=== PATIENT | female | born 1980 | race Caucasian/White ===

== ENCOUNTER 2018-04-05 21:31 | Emergency (ER) | payer MEDICAID, SELFPAY ==
[2018-04-05 21:32] VITALS: BP 154/96; PULSE 93; RESP 16; TEMP 36.6; O2SAT 97; BMI 30.7
--- NOTE | 2018-04-05 22:32 | ED.VISSUMM ---
- ER Visit Summary Date of Service: 04/05/18 Chief Complaint: Right eye pain History of Present Illness: The patient is a 38 F presenting with right eye pain. States it started around 6 PM today. She felt like she may have gotten something in her eye. She was rubbing her eye. No chemical exposure. She complains of right eye pain, burning, itching, tearing. No vision changes. She does not wear contacts. She wears glasses as needed. No fever or other complaints. Physical Examination: Vitals are stable. Patient is afebrile. Alert no acute distress. HEENT exam PERRLA, EOMI. Eyelids are everted with no foreign body visualized. Neck is supple. Lungs are clear and equal bilaterally. Heart is regular rate and rhythm. Extremities are unremarkable. Skin is warm and dry. Remainder of exam is unremarkable. Emergency Department Course and Treatment: Tetracaine was instilled in the right eye with improvement of her symptoms. She has fluorescein uptake at 9:00 oclock. She is given bacitracin ophthalmic ointment. She is advised to follow-up with ophthalmology. Advised return to ED for any worsening complaints. Disposition: Discharge home Impression: Corneal abrasion This note was generated with [employer] dictation software. It may contain incorrect words, spelling, and punctuation that were not noted in review of the chart prior to signing ED Disposition - Plan for ED Patient: Chief Complaint: Eye Problem Referrals: Care Physician,No Primary [Primary Care Provider] -
--- NOTE | 2018-04-05 22:38 | ED.DCSUM_ITS ---
- ER Visit Summary Date of Service: 04/05/18 Chief Complaint: Right eye pain History of Present Illness: The patient is a 38 F presenting with right eye pain. States it started around 6 PM today. She felt like she may have gotten something in her eye. She was rubbing her eye. No chemical exposure. She complains of right eye pain, burning, itching, tearing. No vision changes. She does not wear contacts. She wears glasses as needed. No fever or other complaints. Physical Examination: Vitals are stable. Patient is afebrile. Alert no acute distress. HEENT exam PERRLA, EOMI. Eyelids are everted with no foreign body visualized. Neck is supple. Lungs are clear and equal bilaterally. Heart is regular rate and rhythm. Extremities are unremarkable. Skin is warm and dry. Remainder of exam is unremarkable. Emergency Department Course and Treatment: Tetracaine was instilled in the right eye with improvement of her symptoms. She has fluorescein uptake at 9:00 oclock. She is given bacitracin ophthalmic ointment. She is advised to follow- up with ophthalmology. Advised return to ED for any worsening complaints. Disposition: Discharge home Impression: Corneal abrasion This note was generated with [email or web address] dictation software. It may contain incorrect words, spelling, and punctuation that were not noted in review of the chart prior to signing ED Disposition - Plan for ED Patient: Chief Complaint: Eye Problem Referrals: Care Physician,No Primary [Primary Care Provider] -
--- NOTE | 2018-04-05 22:38 | ED.DEP ---
ED Disposition - Plan for ED Patient: Chief Complaint: Eye Problem Instructions: ED Eye Injury Corneal Abrasion Referrals: Care Physician,No Primary [Primary Care Provider] - Zafar Duarte MD [STAFF PHYSICIAN] -
[2018-04-05] MEDS: Fluorescein 1 MG STRIP 1 STRIP RIGHT EYE (22:47)
[2018-04-05] MEDS: Tetracaine 0.5% Ophthalmic Bottle 1 DRP RIGHT EYE (22:47)
[2018-04-05 22:48] VITALS: PULSE 78; RESP 16; O2SAT 99
== END 2018-04-05 22:49 | disposition home or self-care (01) ==
PROVIDERS: Emergency Provider Emergency Medicine
DX: S05.01XA Injury of conjunctiva and corneal abrasion without foreign body, right eye, initial encounter (principal); X58.XXXA Exposure to other specified factors, initial encounter; Y93.9 Activity, unspecified; Y92.9 Unspecified place or not applicable; Y99.9 Unspecified external cause status; Z72.0 Tobacco use
CPT/HCPCS: 99283

== ENCOUNTER 2018-04-25 21:06 | Emergency (ER) | payer MEDICAID, SELFPAY ==
[2018-04-25 21:07] VITALS: BP 140/84; PULSE 90; RESP 16; TEMP 37.1; O2SAT 97; BMI 29.8
[2018-04-25] MEDS: Ketorolac 30 MG/ML Syringe IV (21:51)
[2018-04-25] MEDS: 0.9% Normal Saline 1,000 ML 1000 ML IV (21:51)
[2018-04-25] MEDS: DiphenhydrAMINE 50 MG/ML Syringe 25 MG IV (21:51)
--- NOTE | 2018-04-25 22:16 | CT_ITS ---
STUDY: CT BRAIN WITHOUT CONTRAST REASON FOR EXAM: Female, 38 years old. Dizzy, left-sided head pain RADIATION DOSAGE (If Supplied By Facility): CTDIvol = ( 44.99 ) mGy, DLP = ( 745.49 ) mGycm TECHNIQUE: Transaxial CT imaging of the brain was performed without administration of intravenous contrast material. Individualized dose optimization techniques were used for this CT. COMPARISON: None. FINDINGS: Normal soft tissue structures. Normal calvarium. Normal size ventricles and extra-axial spaces for the patient's age. There are areas of decreased attenuation within the white matter tracts of the supratentorial brain, consistent with microvascular disease changes. There is an old lacunar infarct of the right insular lobe. Normal basal ganglia and thalami. Normal brainstem. Normal cerebellum. There is no intracranial hemorrhage. There are no findings of an acute ischemic infarction. Normal visualized paranasal sinuses. CT/Brain/Head without Contrast IMPRESSION: Chronic involutional changes of the brain. 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 Electronically Signed: Rogelio Manriquez MD at 22:28 EDT , Service support ,
--- NOTE | 2018-04-25 23:23 | ED.VISSUMM ---
- ER Visit Summary Date of Service: 04/25/18 Chief Complaint: Wooshing sensation use inside my head. Alternating bitemporal headache History of Present Illness: The patient is a 38 F no significant past medical history. Multiple prior abdominal surgeries. Patient states that for 3 weeks she has had an abnormal sensation in her head. And more recently has had alternating bitemporal headache. That primarily started last night. She denies any problems moving her arms and legs. In the past she was going to have an MRI of her brain and a larger neurology workup but lost her insurance and could not get that done. She denies any head trauma. She denies any fever. She denies any strokelike symptoms. Physical Examination: Well-appearing female vital signs are stable afebrile. H EENT exam unremarkable. No signs of trauma to her head or face. No facial droop. Pupils are round reactive light. Normal speech. Neck nontender. Lungs clear to auscultation bilaterally. Heart regular rhythm no murmur. Abdomen soft nontender. She is moving all 4 extremities. They are neurovascularly intact. 5 out of 5 warm in strength bilaterally. Plantar flexion intact. Back exam normal skin exam normal neurologically she is awake and alert with no focal motor deficits. Normal speech. Fingertip to nose within normal limits [id number] within normal limits. NIH score is 0. Test Results: CT of her brain shows chronic changes and right insular lobe infarct per the radiologist. I did review the film. Emergency Department Course and Treatment: Repeat exam she was given IV fluids, Toradol and Benadryl her headache is not significantly different or improved. She will be given IV Nubain. Her repeat neurologic exam at 2315 remains normal. Treatment Plan: Discharged to home. Follow-up with Dr. Quintero for further neurologic evaluation. Disposition: Discharge Impression: Acute atypical cephalgia This note was generated with [employer] dictation software. It may contain incorrect words, spelling, and punctuation that were not noted in review of the chart prior to signing ED Disposition - Plan for ED Patient: Chief Complaint: Dizziness Referrals: Care Physician,No Primary [Primary Care Provider] -
--- NOTE | 2018-04-25 23:27 | ED.DEP ---
ED Disposition - Plan for ED Patient: Disposition: Home or Assisted Living Chief Complaint: Dizziness Instructions: ED Dizziness [facility] Referrals: Pato Quintero MD [STAFF PHYSICIAN] - As soon as possible Additional Instructions: Call and follow-up with the neurologist for further evaluation and possible MRI. Return to ER if you are feeling worse.
--- NOTE | 2018-04-25 23:28 | ED.DCSUM_ITS ---
- ER Visit Summary Date of Service: 04/25/18 Chief Complaint: Wooshing sensation use inside my head. Alternating bitemporal headache History of Present Illness: The patient is a 38 F no significant past medical history. Multiple prior abdominal surgeries. Patient states that for 3 weeks she has had an abnormal sensation in her head. And more recently has had alternating bitemporal headache. That primarily started last night. She denies any problems moving her arms and legs. In the past she was going to have an MRI of her brain and a larger neurology workup but lost her insurance and could not get that done. She denies any head trauma. She denies any fever. She denies any strokelike symptoms. Physical Examination: Well-appearing female vital signs are stable afebrile. H EENT exam unremarkable. No signs of trauma to her head or face. No facial droop. Pupils are round reactive light. Normal speech. Neck nontender. Lungs clear to auscultation bilaterally. Heart regular rhythm no murmur. Abdomen soft nontender. She is moving all 4 extremities. They are neurovascularly intact. 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 Plantar flexion intact. Back exam normal skin exam normal neurologically she is awake and alert with no focal motor deficits. Normal speech. Fingertip to nose within normal limits [id number] within normal limits. NIH score is 0. Test Results: CT of her brain shows chronic changes and right insular lobe infarct per the radiologist. I did review the film. Emergency Department Course and Treatment: Repeat exam she was given IV fluids, Toradol and Benadryl her headache is not significantly different or improved. She will be given IV Nubain. Her repeat neurologic exam at 2315 remains normal. Treatment Plan: Discharged to home. Follow-up with Dr. Quintero for further neurologic evaluation. Disposition: Discharge Impression: Acute atypical cephalgia This note was generated with [employer] dictation software. It may contain incorrect words, spelling, and punctuation that were not noted in review of the chart prior to signing ED Disposition - Plan for ED Patient: Chief Complaint: Dizziness Referrals: Care Physician,No Primary [Primary Care Provider] -
[2018-04-25 23:38] VITALS: BP 135/90; PULSE 84; RESP 16; O2SAT 97
[2018-04-25] MEDS: Nalbuphine 10 MG/ML Ampul IV (23:38)
[2018-04-26 00:03] VITALS: BP 135/97; PULSE 82; RESP 16; O2SAT 100
== END 2018-04-26 00:04 | disposition home or self-care (01) ==
PROVIDERS: Emergency Provider Emergency Medicine
DX: R51 Headache (principal); R42 Dizziness and giddiness; R19.7 Diarrhea, unspecified; Z72.0 Tobacco use; Z86.73 Personal history of transient ischemic attack (TIA), and cerebral infarction without residual deficits
CPT/HCPCS: 70450; 96361; 96374; 96375; 99283; J7030

== ENCOUNTER 2018-05-14 03:49 | Emergency (ER) | payer MEDICAID, SELFPAY ==
[2018-05-14] VITALS (7 sets, daily range): BP systolic 99–160; BP diastolic 68–95; PULSE 96–116; RESP 14–20; TEMP 36.7; O2SAT 92–100; BMI 31.9
--- NOTE | 2018-05-14 04:12 | EKG12_ITS ---
Test Reason : CP Blood Pressure : / mmHG Vent. Rate : 120 BPM Atrial Rate : 120 BPM P-R Int : 140 ms QRS Dur : 070 ms QT Int : 326 ms P-R-T Axes : 055 053 038 degrees QTc Int : 460 ms Sinus tachycardia Nonspecific T wave abnormality Confirmed by LARRY CHAVES, JAIDEN ([id number]), photographic editor BERNADETTE RIOS ([id number]) on 05/15/2018 1:36:33 PM Referred By: GEMMA Confirmed By:JAIDEN JUAREZ MD
--- NOTE | 2018-05-14 04:13 | RAD_ITS ---
STUDY: X-RAY CHEST REASON FOR EXAM: Female, 38 years old. Tightness in the chest. Denies shortness of breath or pain. TECHNIQUE: Frontal and lateral views of the chest. COMPARISON: 05/11/2017. FINDINGS: The lungs are clear and expanded. There is no demonstrated pleural abnormality. Normal size heart. Normal mediastinum and simone. Normal visualized pulmonary arteries. Normal visualized aortic arch and descending thoracic aorta. Normal visualized thoracic spine. Normal visualized ribs, clavicles, and shoulders. There is no demonstrated abnormality of the visualized soft tissue structures of the upper abdomen. RAD/Chest PA and Lateral IMPRESSION: Normal x-ray examination of the chest. Electronically Signed: Teodoro Fagan MD at 5:03 EDT , Service support ,
--- NOTE | 2018-05-14 04:15 | ED.VISSUMM ---
- ER Visit Summary Date of Service: 05/14/18 Chief Complaint: [Chest pain] History of Present Illness: The patient is a 38 F [who presents to the emergency department with chest pain. She describes as a band being squeezed around her chest and she felt like she could not breathe and she was nauseated and vomiting. She has this periodically in the middle of the night it wakes her up. Tonight it started while she was talking to her boyfriend. She had had several drinks. It kept coming and going and happened 3 times and that is when she called EMS. She has had a headache all day today but otherwise has been feeling well. She does have a history in the recent past of getting paresthesias and burning spots on her skin. She has seen a neurologist and a primary doctor but then lost her insurance. She does smoke. She does drink. She states she has not slept in the last several nights because she has a restless feeling in her body. She denies the possibility of .] Physical Examination: [] Blood pressure 165/95 heart rate 116 respiratory rate 20 WN WD NAD PERRL EOMI MMM NECK supple and nontender, no masses RRR no murmur rub or gallop, no peripheral edema, symmetric radial pulses CTAB no respiratory distress ABDOMEN is soft and nontender, normal bowel sounds, no distension, no rebound or guarding SKIN is warm and dry no rashes Alert and Oriented x3, CN II-XII in tact, no motor or sensory deficits, gait normal Anxious appearing No lymphadenopathy Test Results: [] Emergency Department Course and Treatment: [EKG is sinus tach at a rate of 120. Patient is very anxious but no obvious distress. Abdomen was unremarkable. Screening labs were obtained and were significant for a white blood cell count of 18.6. Did not have a clear etiology for this. A urinalysis was unremarkable chest x-ray was unremarkable. I did do a CTA at that time which showed a enhancing liver lesion but no other acute process. MRI was recommended to further evaluate this liver lesion. This was discussed with the patient and putting her discharge instructions. She does not have a primary care doctor. I did give her a referral. I encouraged her to follow-up and give her careful precautions for which to return. Her primary complaint was just diffuse muscle aches. And she cannot relax she just wants her body to relax. If she gets fever or uncontrolled symptoms she was invited to return back to the emergency department Treatment Plan: [] Disposition: [] Discharge Impression: [1. Chest pain 2. Liver lesion] This note was generated with [employer] dictation software. It may contain incorrect words, spelling, and punctuation that were not noted in review of the chart prior to signing ED Disposition - Plan for ED Patient: Chief Complaint: Chest Other Referrals: Care Physician,No Primary [Primary Care Provider] -
[2018-05-14] MEDS: 0.9% Normal Saline 1,000 ML 1000 ML IV (04:24)
[2018-05-14] MEDS: LORazepam 2 MG/ML Syringe 0.5 MG IV (04:24)
[2018-05-14 04:27] LABS: Absolute Lymphocyte Count 3.97 X10^3/ul (0.83-4.51); Absolute Neutrophil Count 12.4 X10^3/uL (2.0-7.7); Basophil% 0.5 % (0-1); Eosinophil# 0.43 X10^3/uL; Eosinophils% 2.3 % (0-5); Hematocrit 41.4 % (37-47); Hemoglobin 14.4 g/dl (12.0-15.0); Lymphocyte # 3.97 X10^3/ul (4.0); Lymphocyte % 21.4 % (19-41); Mean Corp Hgb Conc 34.8 g/gl (32-36); Mean Corpuscular Hgb 33.5 pg (27.0-32.0); Mean Corpuscular Volume 96.3 fL (81-99); Mean Platelet Vol. 10.1 fl (6.2-12.0); Monocyte# 1.27 X10^3/uL; Monocyte% 6.8 % (0-10); Neutrophil # 12.42 X10^3/uL (2.7-7.7); Platelet Count 278 K/mm3 (150-450); RBC Distribution Width CV 13.3 % (11.6-14.6); RBC Distribution Width SD 45.6 fl (35.1-43.9); White Blood Count 18.6 K/mm3 (4.4-11.0)
[2018-05-14 04:47] LABS: AST(SGOT) 28 U/L (15-37); Alanine Aminotransfer ALT/SGPT 54 U/L (13-56); Albumin, Serum 4.2 g/dL (3.2-5.0); Alkaline Phosphatase 68 U/L (45-117); Anion Gap 11 (5-15); BUN 10 mg/dL (7-18); Bilirubin, Direct 0.07 mg/dL (0.00-0.30); Calcium,Total 8.8 mg/dL (8.5-10.1); Chloride 105 mmol/L (98-107); Creatinine, Serum 0.72 mg/dL (0.55-1.02); EST Glomerular Filtration Rate 97 mL/min (>60); Est Glom Filt Rate - Afr Amer 118 mL/min (>60); Estimated Creatinine Clearance 92.38 ml/min; Glucose 111 mg/dL (74-106); Lipase 138 U/L (73-393); Potassium 3.8 mmol/L (3.5-5.1); Protein, Total 8.2 g/dL (6.4-8.2); Sodium Level 140 mmol/L (136-145); Thyroid Stim Hormone (TSH) 3.51 uIU/mL (0.358-3.74)
[2018-05-14 04:49] LABS: POSITIVE COUNT YES; POSITIVE DIFFERENTIAL NO; POSITIVE MORPHOLOGY YES
[2018-05-14 04:53] LABS: Pregnancy, Serum, hCG Quali. NEGATIVE Negative (0-9 Nonpreg)
--- NOTE | 2018-05-14 05:30 | CT_ITS ---
STUDY: CTA CHEST REASON FOR EXAM: Female, 38 years old. Chest pain and tightness. Prior cholecystectomy. RADIATION DOSAGE (If Supplied By Facility): CTDIvol = ( 20.83 ) mGy, DLP = ( 573.62 ) mGycm TECHNIQUE: The examination was performed with the intravenous administration of 75ml ml of Isovue 370 contrast material. Post-processing of the angiographic images was performed, with multiplanar reformation and 3D reconstruction. Individualized dose optimization techniques were used for this CT. COMPARISON: Chest x-ray 05/14/2018. CT scan abdomen and pelvis 06/10/2014. FINDINGS: Normal enhancement of the main pulmonary artery and right and left pulmonary arteries. Normal enhancement of the bilateral peripheral pulmonary arteries. There is no demonstrated pulmonary embolism. Normal thoracic aorta and visualized great vessels. There is no demonstrated aortic dissection. Normal heart and pericardium. Normal mediastinum. Normal hilar regions. Normal visualized trachea and bronchi. There is mild atelectasis in the posterior lungs and lung bases. Otherwise lungs are well expanded. Normal pulmonary parenchyma. Normal pleura. Normal chest wall structures. There are degenerative changes of thoracic spine. As seen on series 2, axial images 11-18, there is a 1.6 cm hyper enhancing space-occupying lesion in the right lobe of the liver, not visible on previous CT exam.. CT/CTA Chest W/WO Contrast IMPRESSION: Normal CTA chest examination, without a demonstrated pulmonary embolism or arterial dissection. No evidence for acute cardiopulmonary pathology. Incidental finding of a 1.6 cm hyper enhancing space-occupying lesion in the right lobe of the liver. Would consider a follow-up MRI of liver for further characterization. Electronically Signed: Teodoro Fagan MD at 6:27 EDT , Service support ,
[2018-05-14 05:56] LABS: Bacteria 0 SEEN /hpf (None Seen); Mucous, Urine 0 SEEN /hpf (<or=2+); Red Blood Cells-Urine 0 SEEN /hpf (0-5); Squamous Epithelial Cells - UA 0 SEEN /hpf (5-10); White Blood Cells 0 SEEN /hpf (0-5)
[2018-05-14 06:02] LABS: Color, Urine Straw (Yellow); Glucose, Dipstick Normal (Normal); Ketone-Dipstick Negative (Negative); Leukocyte Esterase-Dipstick Negative /ul (Negative); Nitrite-Dipstick Negative (Negative); Occult Blood-Urine Negative /ul (Negative); Protein-Dipstick Negative (Negative); Specific Gravity, Urine 1.005 (1.002-1.030); Urine Bilirubin Dipstick Negative (Negative); Urine Clarity Clear (Clear); Urine Urobilinogen Normal (Normal)
[2018-05-14] MEDS: Ondansetron 4 MG/2 ML Vial IV (06:43)
[2018-05-14] MEDS: Morphine 4 MG/ML Syringe IV (06:53)
[2018-05-14] MEDS: Mag Hydrox/Al Hydrox/Simeth 30 ML UDC 20 ML PO (06:54)
[2018-05-14] MEDS: LORazepam 2 MG/ML Syringe 1 MG IV (07:20)
--- NOTE | 2018-05-14 07:40 | ED.DEP ---
ED Disposition - Plan for ED Patient: Chief Complaint: Chest Other Instructions: ED Chest Pain Atypical Unkn Cause Referrals: Alyx Don MD [STAFF PHYSICIAN] - 3-5 Days Additional Instructions: You have a lesion in your liver on CAT scan. This REQUIRES MRI for further follow up. you MUST follow up with a primary provider.
[2018-05-15 12:07] LABS: Pathologist Review Reviewed
== END 2018-05-14 08:00 | disposition home or self-care (01) ==
PROVIDERS: Emergency Provider Emergency Medicine
DX: R07.9 Chest pain, unspecified (principal); K76.9 Liver disease, unspecified; M79.1 Myalgia; R11.2 Nausea with vomiting, unspecified; R51 Headache; F17.200 Nicotine dependence, unspecified, uncomplicated
CPT/HCPCS: 36415; 71046; 71275; 80048; 80076; 81001; 83690; 83735; 84443; 84484; 84703; 85025; 93005; 99284; J7030; Q9967; J2405

== ENCOUNTER 2018-05-14 08:49 | Emergency (ER) | payer MEDICAID, SELFPAY ==
[2018-05-14 08:50] VITALS: BP 89/58; PULSE 99; RESP 16; TEMP 36.1; O2SAT 96; BMI 30.9
--- NOTE | 2018-05-14 09:10 | EKG12_ITS ---
Test Reason : DIZZINESS Blood Pressure : / mmHG Vent. Rate : 085 BPM Atrial Rate : 085 BPM P-R Int : 144 ms QRS Dur : 078 ms QT Int : 358 ms P-R-T Axes : 026 053 036 degrees QTc Int : 426 ms Normal sinus rhythm Normal ECG Confirmed by LARRY CHAVES, JAIDEN ([id number]), web editor BERNADETTE RIOS ([id number]) on 05/17/2018 10:46:14 AM Referred By: Confirmed By:JAIDEN JUAREZ MD
--- NOTE | 2018-05-14 09:10 | CT_ITS ---
STUDY: CT BRAIN WITHOUT CONTRAST REASON FOR EXAM: Female, 38 years old. Headache. Dizziness. RADIATION DOSAGE (If Supplied By Facility): CTDIvol = ( 44.99 ) mGy, DLP = ( 711.75 ) mGycm TECHNIQUE: Transaxial CT imaging of the brain was performed without administration of intravenous contrast material. Individualized dose optimization techniques were used for this CT. COMPARISON: April 25, 2018. FINDINGS: Normal soft tissue structures. Normal calvarium. Normal size ventricles and extra-axial spaces for the patient's age. Normal white matter tracts of the cerebral hemispheres. Stable lacunar infarct of the right basal ganglia. Normal brainstem. Normal cerebellum. There is no intracranial hemorrhage. There are no findings of an acute ischemic infarction. Normal visualized paranasal sinuses. CT/Brain/Head without Contrast IMPRESSION: Chronic involutional changes of the brain. No hemorrhage. Electronically Signed: Romaine Chand MD at 10:12 EDT , Service support ,
--- NOTE | 2018-05-14 09:15 | ED.DCSUM_ITS ---
- ER Visit Summary Date of Service: 05/14/18 Chief Complaint: Dizziness History of Present Illness: The patient is a 38 F presenting with dizziness. Patient was just discharged from the ER. She did not leave the waiting room and checked back in. She complains of dizziness and feeling like she is going to pass out. While she was in the emergency department earlier today she had blood work as well as a CTA of her chest which was unremarkable other than a liver lesion which she was advised to follow-up with primary care physician. She denies fever. She has nausea with no vomiting. She has chest pain which she has had in the past. She complains of mild headache. Denies neck pain. Denies other complaints. Physical Examination: Vitals are stable. Patient is afebrile. Alert no acute distress. HEENT exam is unremarkable. Neck is supple. Lungs are clear and equal bilaterally. Heart is regular rate and rhythm. Abdomen is soft nontender nondistended. Extremities are unremarkable. Skin is warm and dry. No focal neurologic deficit. Remainder of exam is unremarkable. Emergency Department Course and Treatment: Patient given IV fluids, Zofran. Orthostatic vital signs are negative. EKG is sinus rate of 85 with no acute ischemic changes. Troponin was negative. Troponin was negative earlier today as well. Her chest pain is improved on reevaluation, she is complaining of headache. She was given Compazine and Benadryl IV with improvement of her headache. She is resting comfortably on reevaluation. She is advised to follow -up with Dr. Holloway relocation associate for no doc. Advised return to ED for worsening complaints. Disposition: Discharge home Impression: Dizziness, headache This note was generated with [employer] dictation software. It may contain incorrect words, spelling, and punctuation that were not noted in review of the chart prior to signing ED Disposition - Plan for ED Patient: Chief Complaint: Dizziness Referrals: Care Physician,No Primary [Primary Care Provider] -
[2018-05-14 09:59] VITALS: BP 108/87; BP 109/82; BP 96/71; PULSE 86; PULSE 94; PULSE 98
[2018-05-14] MEDS: 0.9% Normal Saline 1,000 ML 1000 ML IV (10:07)
[2018-05-14] MEDS: Ondansetron 4 MG/2 ML Vial IV (10:07)
[2018-05-14 10:35] LABS: Amphetamine Urine VISTA NEGATIVE (<1000 ng/mL); Barbiturate Urine VISTA NEGATIVE (< 200 ng/mL); Benzodiazepine Urine VISTA NEGATIVE (< 200 ng/mL); Cocaine Urine VISTA NEGATIVE (< 300 ng/mL); Ecstacy Urine VISTA NEGATIVE (< 500 ng/mL); Methadone Urine VISTA NEGATIVE (< 300 ng/mL); PCP Urine VISTA NEGATIVE (< 25 ng/mL); THC Urine VISTA NEGATIVE (< 50 ng/mL); Vista UDS pH Range 7
[2018-05-14] MEDS: proCHLORPERazine 10 MG/2 ML Vial IV (11:00)
[2018-05-14] MEDS: DiphenhydrAMINE 50 MG/ML Syringe 25 MG IV (11:00)
--- NOTE | 2018-05-14 11:23 | ED.DEP ---
ED Disposition - Plan for ED Patient: Chief Complaint: Dizziness Instructions: ED Dizziness [facility] Referrals: Care Physician,No Primary [Primary Care Provider] - Jewel,DO Jennifer [NON-STAFF] -
[2018-05-14 11:42] VITALS: BP 98/59; PULSE 95; RESP 22; O2SAT 92
== END 2018-05-14 11:44 | disposition home or self-care (01) ==
PROVIDERS: Emergency Provider Emergency Medicine
DX: R42 Dizziness and giddiness (principal); R51 Headache; R11.2 Nausea with vomiting, unspecified; R07.9 Chest pain, unspecified; R05 Cough; K76.9 Liver disease, unspecified; M79.1 Myalgia; F17.200 Nicotine dependence, unspecified, uncomplicated
CPT/HCPCS: 36415; 70450; 80307; 84484; 93005; 96361; 96374; 96375; 96376; 99284; 99285; J7030; J2405

== ENCOUNTER 2018-10-30 19:26 | Observation (INO) | payer OTHER, MEDICAID, SELFPAY ==
[2018-10-30 19:27] VITALS: BP 148/90; PULSE 98; RESP 16; TEMP 36.5; O2SAT 99; BMI 30.9
--- NOTE | 2018-10-30 19:58 | ED.VISSUMM ---
- ER Visit Summary Date of Service: 10/30/18 Chief Complaint: Right-sided abdominal pain History of Present Illness: The patient is a 38 F who presents for acute onset of right-sided abdominal pain 2 hours ago. Patient had a microwave ablation on her liver on October 19 performed at [facility]. She has had no issues until tonight. She was sitting when she had sudden onset of right upper quadrant abdominal pain radiating into the right back, right shoulder and right neck. Patient has associated nausea. It is a sharp stabbing pain with underlying constant ache. She denies any vomiting, diarrhea, chest pain, fever, shortness of breath, cough or congestion, urinary symptoms. Patient is status post cholecystectomy and hysterectomy. Surgery was performed for a liver adenoma. Physical Examination: Vital signs: afebrile, hemodynamically stable, no hypoxia on room air General: well nourished, well developed, in no distress Skin: warm, dry, no rash, no pallor HEENT: normocephalic and atraumatic; PERRL, EOMI, moist mucous membranes Cardiovascular: regular rate and rhythm without murmurs, no peripheral edema, 2+ pulses all distal extremities Respiratory: No increased work of breathing, lungs are clear to auscultation bilaterally, no rales, rhonchi or wheezing Abdominal: Abdomen is soft, tender in the right upper quadrant with normoactive bowel sounds, referred pain to the right upper quadrant with palpation of the right lower quadrant, no guarding or rebound, no masses, well-healing surgical incisions on the abdomen MSK: Moves all extremities, no deformities, normal strength, healing biopsy site on the left upper arm at site of lipoma removal, granulation tissue present, no surrounding erythema, tenderness or induration Neuro: Awake and alert, oriented ?4. No facial droop, sensation and motor function intact and symmetric Test Results: Abnormal Lab Results 10/30/18 10/30/18 10/30/18 19:36 19:36 20:15 WBC 15.4 H RBC 4.37 Hgb 13.8 Hct 42.4 MCV 97.0 MCH 31.6 MCHC 32.5 RDW 12.5 RDW Differential 44.0 H Plt Count 306 MPV 10.9 Immature Gran % (Auto) 1.400 H Neut % (Auto) 67.8 Lymph % (Auto) 23.7 [place] % (Auto) 4.7 Eos % (Auto) 2.0 Baso % (Auto) 0.4 Absolute Neuts (auto) 10.4 H Absolute Lymphs (auto) 3.64 Total Counted Not Reportable Sodium Cancelled Potassium Cancelled Chloride Cancelled Carbon Dioxide Cancelled Anion Gap Cancelled BUN Cancelled Creatinine Cancelled Estim Creat Clear Calc Cancelled Est GFR (MDRD) Af Amer Cancelled Est GFR (MDRD) Non-Af Cancelled BUN/Creatinine Ratio Cancelled Glucose Cancelled Lactic Acid Calcium Cancelled Total Bilirubin Cancelled AST Cancelled ALT Cancelled Alkaline Phosphatase Cancelled Total Protein Cancelled Albumin Cancelled Globulin Cancelled Albumin/Globulin Ratio Cancelled Lipase Cancelled Urine Color Yellow Urine Clarity Clear Urine pH 5.0 Ur Specific [place] 1.025 Urine Protein Negative Urine Glucose (UA) Normal Urine Ketones 150 H Urine Occult Blood Negative Urine Nitrite Negative Urine Bilirubin Negative Urine Urobilinogen Normal Ur Leukocyte Esterase Negative Urine RBC 0 SEEN Urine WBC 0 SEEN Ur Squamous Epith Cells 0-5 SEEN Urine Bacteria 0 SEEN Urine Mucus 0 SEEN 10/30/18 10/30/18 20:35 20:56 WBC RBC Hgb Hct MCV MCH MCHC RDW RDW Differential Plt Count MPV Immature Gran % (Auto) Neut % (Auto) Lymph % (Auto) [place] % (Auto) Eos % (Auto) Baso % (Auto) Absolute Neuts (auto) Absolute Lymphs (auto) Total Counted Sodium 136 Potassium 3.7 Chloride 104 Carbon Dioxide 22.0 Anion Gap 10 BUN 18 Creatinine 0.76 Estim Creat Clear Calc 87.52 Est GFR (MDRD) Af Amer 109 Est GFR (MDRD) Non-Af 90 BUN/Creatinine Ratio 23.6 H Glucose 81 Lactic Acid 0.9 Calcium 9.6 Total Bilirubin 0.20 AST 18 ALT 49 Alkaline Phosphatase 83 Total Protein 8.5 H Albumin 4.6 Globulin 3.9 Albumin/Globulin Ratio 1.2 Lipase 140 Urine Color Urine Clarity Urine pH Ur Specific [place] Urine Protein Urine Glucose (UA) Urine Ketones Urine Occult Blood Urine Nitrite Urine Bilirubin Urine Urobilinogen Ur Leukocyte Esterase Urine RBC Urine WBC Ur Squamous Epith Cells Urine Bacteria Urine Mucus Clinical Impression(s) from Imaging Studies Abdomen/Pelvis CT 10/30/18 21:15 IMPRESSION: Abnormal liver consistent with recently treated lesion in the right lobe. No dilated loops of bowel. No hydronephrosis. No fluid collection. Electronically Signed: Romaine Chand MD at 22:24 EST , Service support , Medications Given Discontinued Medications Acetaminophen (Tylenol) 325 mg PO X1 ONE Stop: 10/30/18 22:45 Sodium Chloride () 1,000 mls @ 1,000 mls/hr IV .Q1H ONE Stop: 10/30/18 20:56 Last Admin: 10/30/18 20:27 Dose: 1,000 mls/hr Morphine Sulfate () 4 mg IV X1 ONE Stop: 10/30/18 19:58 Last Admin: 10/30/18 20:28 Dose: 4 mg Morphine Sulfate () 4 mg IV X1 ONE Stop: 10/30/18 21:43 Last Admin: 10/30/18 21:57 Dose: 4 mg Ondansetron HCl (Zofran) 4 mg IV X1 ONE Stop: 10/30/18 19:58 Last Admin: 10/30/18 20:28 Dose: 4 mg Oxycodone HCl (Oxyir) 5 mg PO X1 ONE Stop: 10/30/18 22:45 Emergency Department Course and Treatment: She was given IV fluids, morphine and Zofran for symptomatic relief. Abs were performed showing a leukocytosis of 15.4 with bandemia. No electrolyte derangements, normal hepatic function, normal lipase. Lactate was normal at 0.9. Urine showed no signs of infection. Patient had adequate pain control with morphine but did require an additional dose. Patient was discussed with her surgeon Dr. Larry Gonsales from [facility] [place], we discussed imaging of the patient. Patient had a CT abdomen and pelvis with IV contrast performed. It showed a liver hypodensity consistent with post ablation changes. These results were discussed with Dr. Gonsales, and there were no signs of abscess, free air or hematoma. Patient has no hypoxia, tachycardia or tachypnea, dyspnea that would be concerning for pulmonary embolism, and she does have right upper quadrant tenderness consistent with this being an abdominal process rather than an intrathoracic process. He stated given the findings on the CT scan, the pain then is likely post procedural pain, and pain control is the goal. Patient was given the options of transfer to [facility] for further pain control, admission for pain management, or attempt to get her pain controlled with oral analgesia so that she can be discharged home. At that time she would then follow-up with Dr. Gonsales outpatient later this week. She wanted to try outpatient pain control. She was given oxycodone and Tylenol, which is what she was taking postoperatively last week. Reevaluation, patient had minimal improvement of her pain with the oxycodone and Tylenol, but now was having nausea. Patient was given ODT Zofran, and after a short time stated she did not think she was felt well enough to go home. She does not want to be transferred to [facility]. Patient was discussed with Dr. Schuler and will be admitted as observation status for postprocedural pain control. Treatment Plan: [] Disposition: [] Impression: Post procedural pain status post liver adenoma ablation This note was generated with Yoke dictation software. It may contain incorrect words, spelling, and punctuation that were not noted in review of the chart prior to signing ED Disposition - Plan for ED Patient: Chief Complaint: Abd Pain Referrals: [facility] Doctor,Out of [NON-STAFF] -
[2018-10-30 20:14] LABS: Absolute Lymphocyte Count 3.64 X10^3/ul (0.83-4.51); Absolute Neutrophil Count 10.4 X10^3/uL (2.0-7.7); Basophil# 0.06 X10^3/uL; Basophil% 0.4 % (0-1); Hematocrit 42.4 % (37-47); Hemoglobin 13.8 g/dl (12.0-15.0); Lymphocyte # 3.64 X10^3/ul (4.0); Lymphocyte % 23.7 % (19-41); Mean Corp Hgb Conc 32.5 g/gl (32-36); Mean Corpuscular Hgb 31.6 pg (27.0-32.0); Mean Platelet Vol. 10.9 fl (6.2-12.0); Monocyte# 0.72 X10^3/uL; Monocyte% 4.7 % (0-10); Neutrophil # 10.44 X10^3/uL (2.7-7.7); Neutrophil % 67.8 % (47-70); Platelet Count 306 K/mm3 (150-450); RBC Distribution Width CV 12.5 % (11.6-14.6); Red Blood Count 4.37 M/mm3 (4.2-5.4); White Blood Count 15.4 K/mm3 (4.4-11.0)
[2018-10-30 20:15] LABS: POSITIVE COUNT NO; POSITIVE DIFFERENTIAL NO; POSITIVE MORPHOLOGY NO
[2018-10-30 20:26] LABS: Bacteria 0 SEEN /hpf (None Seen); Mucous, Urine 0 SEEN /hpf (<or=2+); Red Blood Cells-Urine 0 SEEN /hpf (0-5); White Blood Cells 0 SEEN /hpf (0-5)
[2018-10-30 20:27] LABS: Color, Urine Yellow (Yellow); Glucose, Dipstick Normal (Normal); Leukocyte Esterase-Dipstick Negative /ul (Negative); Nitrite-Dipstick Negative (Negative); Occult Blood-Urine Negative /ul (Negative); Protein-Dipstick Negative (Negative); Specific Gravity, Urine 1.025 (1.002-1.030); Urine Bilirubin Dipstick Negative (Negative); Urine Clarity Clear (Clear); Urine Urobilinogen Normal (Normal)
[2018-10-30] MEDS: 0.9% Normal Saline 1,000 ML 1000 ML IV (20:27)
[2018-10-30] MEDS: Morphine 4 MG/ML Syringe IV ×2 (20:28→21:57)
[2018-10-30] MEDS: Ondansetron 4 MG/2 ML Vial IV (20:28)
[2018-10-30 20:33] LABS: Ketone-Dipstick 150 mg/dl (Negative)
[2018-10-30 20:34] LABS: Squamous Epithelial Cells - UA 0-5 SEEN /hpf (5-10)
[2018-10-30 20:35] VITALS: BP 132/92; PULSE 89; RESP 16; O2SAT 100
[2018-10-30 21:06] LABS: ALB/GLOB Ratio 1.2 RATIO (0.9-2.4); Albumin, Serum 4.6 g/dL (3.2-5.0); BUN 18 mg/dL (7-18); BUN/Creat Ratio 23.6 RATIO (10-20); Calcium,Total 9.6 mg/dL (8.5-10.1); Creatinine, Serum 0.76 mg/dL (0.55-1.02); EST Glomerular Filtration Rate 90 mL/min (>60); Est Glom Filt Rate - Afr Amer 109 mL/min (>60); Estimated Creatinine Clearance 87.52 ml/min; Globulin 3.9 g/dL (2.2-4.2); Glucose 81 mg/dL (74-106); Lipase 140 U/L (73-393); Protein, Total 8.5 g/dL (6.4-8.2)
[2018-10-30 21:07] LABS: AST(SGOT) 18 U/L (15-37); Alanine Aminotransfer ALT/SGPT 49 U/L (13-56); Alkaline Phosphatase 83 U/L (45-117); Anion Gap 10 (5-15); Chloride 104 mmol/L (98-107); Potassium 3.7 mmol/L (3.5-5.1); Sodium Level 136 mmol/L (136-145)
--- NOTE | 2018-10-30 21:15 | CT_ITS ---
STUDY: CT ABDOMEN AND PELVIS WITH CONTRAST REASON FOR EXAM: Female, 38 years old. Abdominal pain. Right upper quadrant pain. Recent ablation of liver mass. RADIATION DOSAGE (If Supplied By Facility): CTDIvol = ( 16.48 ) mGy, DLP = ( 1414.64 ) mGycm TECHNIQUE: Transaxial images were obtained from the dome of the diaphragm to the symphysis pubis without oral contrast. 100 ml of Isovue 300 contrast was administered. Sagittal and coronal images were reconstructed. Individualized dose optimization techniques were used for this CT. COMPARISON: June 10, 2014 CT abdomen. May 14, 2018 CT chest. FINDINGS: The visualized lung bases are unremarkable. The visualized portions of the heart are within normal limits. There is 5.8 x 3.1 cm diminished density in the right lobe of the liver including the region of previously seen enhancing mass. There is non-visualization of the gallbladder, which may be secondary to either contraction or a prior cholecystectomy. Normal spleen. Normal pancreas. Normal bilateral adrenal glands. Small cysts in the right kidney. Normal left kidney. Normal visualized stomach. Normal small intestine. Normal colon. There are surgical clips in the region of the appendix consistent with a prior appendectomy. Normal abdominal aorta. Normal inferior vena cava. Normal retroperitoneum. Normal urinary bladder. There is absence of the uterus consistent with a prior hysterectomy. There is a 2.0 cm left adnexal cyst. There is no free fluid in the abdomen or pelvis. There is a small umbilical hernia containing fat. Normal osseous structures. CT/Abdomen/Pelvis W IV Cont ONLY IMPRESSION: Abnormal liver consistent with recently treated lesion in the right lobe. No dilated loops of bowel. No hydronephrosis. No fluid collection. Electronically Signed: Romaine Chand MD at 22:24 EST , Service support ,
--- NOTE | 2018-10-30 21:26 | ED.RN ---
PER LAB URINE KETONES 150, DR BARKLEY AWARE.
[2018-10-30 21:40] LABS: Lactic Acid 0.9 mmol/L (0.4-2.0)
[2018-10-30] MEDS: oxyCODONE 5 MG Tablet PO (22:54)
[2018-10-30] MEDS: Acetaminophen 325 MG Tablet PO (22:54)
[2018-10-30] MEDS: Ondansetron ODT 4 MG Tablet PO (23:27)
[2018-10-30 23:28] VITALS: BP 130/80; PULSE 92; RESP 18; O2SAT 97
--- NOTE | 2018-10-30 23:40 | HP.PCM_ITS ---
Problem List (1) RUQ pain Status: Acute (2) Hepatic adenoma Status: Chronic (3) GERD (gastroesophageal reflux disease) Status: Chronic Qualifiers: Esophagitis presence: esophagitis presence not specified Qualified Code(s): K21.9 - Gastro-esophageal reflux disease without esophagitis (4) Tobacco use Status: Chronic (5) Obesity (BMI 30.0-34.9) Status: Chronic History of Present Illness Date of Admission: 10/30/18 Chief Complaint: RUQ pain The patient is a 38 y/o F w/ PMHx: GERD, Obesity, Tobacco use, recently noted incidental liver lesion on CT 05/2018 with follow-up eventual 10/20/18 microwave ablation of the lesion performed at [facility] by Dr. Larry Gonsales in addition to left upper extremity adenoma removal at the same time who presents to the [facility] on 10/31/18 with history of pain regimen previously used times 3 days following initial intervention with pain controlled following however onset today at approximately 6 PM prior to meal intake both dull ongoing ache and sharp stabbing intermittent 10 out of 10 pain to the right upper quadrant with radiation to the right shoulder with nausea with no emesis, ongoing eventually prompting ED evaluation. In the ED patient has noted opening of the lipoma resection region of the left upper extremity and notes that the suturing did not hold it had not contacted the surgeon again as she was awaiting for follow-up. She denies any discharge or worsened pain in this region. She denies any fevers but states that today with the onset of the severe right upper quadrant pain she did have chills. In the ED workup included T 97.7, heart rate 98, BP 140/90, respiratory rate 16, 99% on room air, CBC with W BC 15.4, hemoglobin 13.8, platelet 306 with left shift, CMP unremarkable, urinalysis with elevated specific gravity 1.025, ketones present was unremarkable, CT abdomen and pelvis with contrast with noted 5.8 x 3.1 diminished density in the right lobe of the liver including the region of previously seen enhancing mass consistent with recently treated lesion of the right lobe with no acute findings otherwise including abscess or fluid collection. ED physician did discuss patient presentation with the surgeon as patient preference to defer any transfer and surgeon agreed that she may remain at [facility] for further evaluation. He stated based on the CT scan and presentation likely elevated white count secondary to recent intervention but did not feel this is likely an infection especially with unremarkable imaging. Past Medical History Past Medical History (Chronic Problems): Chronic Problems Hepatic adenoma (Chronic) GERD (gastroesophageal reflux disease) (Chronic) Tobacco use (Chronic) Obesity (BMI 30.0-34.9) (Chronic) Status post appendectomy (Chronic) Status post hysterectomy (Chronic) Status post cholecystectomy (Chronic) Allergies latex Allergy (Mild, Verified 10/30/18 19:29) IRRIATION, OR IF SHE INGEST SHE VOMITS. hydromorphone HCl [From Dilaudid] Allergy (Verified 10/30/18 19:29) ITCHY LIKE FIREY ANTS ALL OVER HER SKIN Penicillins Allergy (Verified 10/30/18 19:29) Shortness of breath acetaminophen [From Darvocet-N] Adverse Reaction (Verified 10/30/18 19:29) Nausea meperidine [From Demerol] Adverse Reaction (Verified 10/30/18 19:29) Nausea propoxyphene [From Darvocet-N] Adverse Reaction (Verified 10/30/18 19:29) Nausea varenicline [From Chantix] Adverse Reaction (Verified 10/30/18 19:29) Other Home Medications: Ambulatory Orders Medication Instructions Recorded Cholestyramine (with Sugar) 4 gm PO DAILY 10/30/18 [Cholestyramine Packet] Omeprazole [Prilosec] 40 mg PO DAILY 10/30/18 Surgical History: appendectomy, cholecystectomy, hysterectomy, - - Appendectomy, cholecystectomy, hysterectomy, bilateral wrist cyst removal, right carpal tunnel surgery, recent right liver lobe adenoma ablation in addition to left upper extremity lipoma removal. Psychiatric History: No pertinent psych hx BURRER HAND History: No pertinent BURRER HAND history Lives: Spouse/ Significant Other - She lives with her boyfriend and son. Smoking Status: Current every day smoker - Patient smokes proximally 1/2 pack/day cigarette tobacco. Tobacco Use: Cigarettes Alcohol: Occasional Drugs: None - *Family History Maternal History Items: - - Patient is adopted and states she does not know any of her maternal or paternal family history. Paternal History Items: - - Patient is adopted and states she does not know any of her maternal or paternal family history. Review of Systems Constitutional: Reports: Anorexia, Chills, Malaise, Weakness, Fatigue. Denies: Fever, Weight Change HEENT: Denies: Head Aches, Sinus Congestion, Sinus Drainage Cardiovascular: Denies: Chest Pain, Palpitations Respiratory: Denies: Cough, Shortness of breath at rest, Sputum production Gastrointestinal: Reports: Abdominal Pain, Nausea. Denies: Vomiting Genitourinary: Denies: Dysuria Musculoskeletal: Denies: Joint Pain, Joint Tenderness Skin: Reports: Skin Changes, Wounds. Denies: Rash Neurological: Denies: Numbness, Tingling, Focal weakness Psychiatric: Denies: Anxiety, Depression, Homicidal Ideations, Suicidal Ideations Hematologic/ Lymphatic: Denies: Easy Bruising, Easy Bleeding VTE Information - Inpt Only VTE Present on Admission: No VTE Mechan Device Prophylaxis: SCD's VTE Pharm Prophylaxis ordered?: Yes Patient Problems: Active and Suspected Problems RUQ pain (Acute) Subjective: Seated upright in the ED bed, fatigued appearance, no acute distress. Objective: Physical Examination: General: awake, alert, oriented x 3 and cooperative, seated upright in the ED bed in no apparent distress. Skin: normal color, turgor, no icterus, cyanosis except recent laparoscopic abdominal surgery with Steri-Strips over incisions, well-appearing, no discharge or drainage or erythema, left upper extremity status post lipoma resection with dehisced incision, no discharge, no tenderness to palpation, no market erythema of the region. HEENT: AT/NC, EOMI, PERRLA, dry MM, no carotid bruits or JVD noted. Lungs: CTA bilaterally, moderate effort, mild decrease BL bases, no rales, ronchi or wheezing. Heart: Regular rate and rhythm; no gallop, rub audible. Abdomen: soft, right upper quadrant tenderness palpation, voluntary guarding, nondistended, normal bowel sounds, difficult to assess HSM secondary to discomfort with examination. Extremities: no cyanosis, clubbing, or edema. Neurological: patient awake, alert, oriented x 3; cognitive function intact; pupils equally reactive to light and accomodation; cranial nerves II-XII grossly normal, moving all 4 extremities, no focal deficits, strength moderately globally decreased secondary to acute presentation. Psychiatric: affect appears normal, fatigued, no acute evidence of depressive or anxiety feelings. - Physical Exam Vital Signs Temp Pulse Resp BP Pulse Ox 97.7 F L 92 18 130/80 H 97 10/30/18 19:27 10/30/18 23:28 10/30/18 23:28 10/30/18 23:28 10/30/18 23:28 Oxygen Delivery Method Room Air Weight: 180 lb 8.937 oz Body Mass Index (BMI) 30.9 Finger Stick Blood Glucose 93 Laboratory Tests Past 24 Hrs 10/30/18 10/30/18 10/30/18 19:36 19:36 20:15 WBC 15.4 H RBC 4.37 Hgb 13.8 Hct 42.4 MCV 97.0 MCH 31.6 MCHC 32.5 RDW 12.5 RDW Differential 44.0 H Plt Count 306 MPV 10.9 Immature Gran % (Auto) 1.400 H Neut % (Auto) 67.8 Lymph % (Auto) 23.7 [place] % (Auto) 4.7 Eos % (Auto) 2.0 Baso % (Auto) 0.4 Absolute Neuts (auto) 10.4 H Absolute Lymphs (auto) 3.64 Total Counted Not Reportable Sodium Cancelled Potassium Cancelled Chloride Cancelled Carbon Dioxide Cancelled Anion Gap Cancelled BUN Cancelled Creatinine Cancelled Estim Creat Clear Calc Cancelled Est GFR (MDRD) Af Amer Cancelled Est GFR (MDRD) Non-Af Cancelled BUN/Creatinine Ratio Cancelled Glucose Cancelled Lactic Acid Calcium Cancelled Total Bilirubin Cancelled AST Cancelled ALT Cancelled Alkaline Phosphatase Cancelled Total Protein Cancelled Albumin Cancelled Globulin Cancelled Albumin/Globulin Ratio Cancelled Lipase Cancelled Urine Color Yellow Urine Clarity Clear Urine pH 5.0 Ur Specific [place] 1.025 Urine Protein Negative Urine Glucose (UA) Normal Urine Ketones 150 H Urine Occult Blood Negative Urine Nitrite Negative Urine Bilirubin Negative Urine Urobilinogen Normal Ur Leukocyte Esterase Negative Urine RBC 0 SEEN Urine WBC 0 SEEN Ur Squamous Epith Cells 0-5 SEEN Urine Bacteria 0 SEEN Urine Mucus 0 SEEN 10/30/18 10/30/18 20:35 20:56 WBC RBC Hgb Hct MCV MCH MCHC RDW RDW Differential Plt Count MPV Immature Gran % (Auto) Neut % (Auto) Lymph % (Auto) [place] % (Auto) Eos % (Auto) Baso % (Auto) Absolute Neuts (auto) Absolute Lymphs (auto) Total Counted Sodium 136 Potassium 3.7 Chloride 104 Carbon Dioxide 22.0 Anion Gap 10 BUN 18 Creatinine 0.76 Estim Creat Clear Calc 87.52 Est GFR (MDRD) Af Amer 109 Est GFR (MDRD) Non-Af 90 BUN/Creatinine Ratio 23.6 H Glucose 81 Lactic Acid 0.9 Calcium 9.6 Total Bilirubin 0.20 AST 18 ALT 49 Alkaline Phosphatase 83 Total Protein 8.5 H Albumin 4.6 Globulin 3.9 Albumin/Globulin Ratio 1.2 Lipase 140 Urine Color Urine Clarity Urine pH Ur Specific [place] Urine Protein Urine Glucose (UA) Urine Ketones Urine Occult Blood Urine Nitrite Urine Bilirubin Urine Urobilinogen Ur Leukocyte Esterase Urine RBC Urine WBC Ur Squamous Epith Cells Urine Bacteria Urine Mucus Assessment/Plan All Active Problems RUQ pain (Acute) Abnormal stress test (Acute) Chest pain (Acute) Partial obstruction of small intestine (Acute) Abdominal pain (Acute) The patient is a 38 y/o F w/ PMHx: GERD, Obesity, Tobacco use, recently noted in cidental liver lesion on CT 05/2018 with follow-up eventual 10/20/18 microwave ablation of the lesion performed at [facility] by Dr. Larry Gonsales in addition to left upper extremity adenoma removal at the same time who presents to the [facility] on 10/31/18 with history of pain regimen previously used times 3 days following initial intervention with pain controlled following however onset today at approximately 6 PM prior to meal intake both dull ongoing ache and sharp stabbing intermittent 10 out of 10 pain to the right upper quadrant with radiation to the right shoulder with nausea with no emesis, ongoing eventually prompting ED evaluation. (1) RUQ Pain, Unclear Etiology w/ Recent R Liver Lobe Adenoma Ablation w/ Leukocytosis: ED workup included T 97.7, heart rate 98, BP 140/90, respiratory rate 16, 99% on room air, CBC with W BC 15.4, hemoglobin 13.8, platelet 306 with left shift, CMP unremarkable, urinalysis with elevated specific gravity 1.025, ketones present was unremarkable, CT abdomen and pelvis with contrast with noted 5.8 x 3.1 diminished density in the right lobe of the liver including the region of previously seen enhancing mass consistent with recently treated lesion of the right lobe with no acute findings otherwise including abscess or fluid collection. ED physician did discuss patient presentation with the surgeon as patient preference to defer any transfer and surgeon agreed that she may remain at [facility] for further evaluation. He stated based on the CT scan and presentation likely elevated white count secondary to recent intervention but did not feel this is likely an infection especially with unremarkable imaging. Will admit to [facility], maintain NPO status until pain and nausea improved, continue IVFs, IV PPI in interim, if onset fever would obtain blood cultures, initiate BSA given recent interventions with ID and surgery evaluations if appropriate at that time, plan repeat CBC, CMP in a.m. If pain improved, no onset fevers, unremarkable labs and doing well would initiate diet and if tolerated discharge to home with reassessment per her surgeon. (2) Recent LUE Lipoma Resection w/ incisional dehiscence: Noted dehiscence following procedure, patient denies any discharge or pain to the region, given appearance likely will need follow-up care, possibly revision, wound RN consulted. (3) Tobacco Abuse: Encouraged cessation, inpatient consultation per RT, NR if desired. (4) Obesity: Weight loss and lifestyle changes encouraged. (5) GERD: IV PPI. (6) DVT prophylaxis: SCDs, lovenox. Code Visit OBSV E&M: 22891 Initial observation care L3
[2018-10-30 23:52] VITALS: BP 130/80; PULSE 92; RESP 18; O2SAT 97
[2018-10-31] VITALS (7 sets, daily range): BP systolic 104–128; BP diastolic 62–79; PULSE 82–90; RESP 16–18; TEMP 36.4–37.1; O2SAT 95–99; BMI 31.0; BMI 31.1
[2018-10-31] MEDS: proMETHazine 25 MG/ML Syringe 6.25 MG IV ×5 (01:01→19:38)
[2018-10-31] MEDS: 0.9% Normal Saline 1,000 ML 125 ML IV ×3 (01:02→17:58)
[2018-10-31] MEDS: Morphine 2 MG/ML Syringe IV (01:19)
[2018-10-31] MEDS: Ondansetron 4 MG/2 ML Vial IV ×3 (04:04→23:07)
[2018-10-31] MEDS: Morphine 4 MG/ML Syringe IV (04:08)
[2018-10-31 05:49] LABS: Absolute Lymphocyte Count 2.31 X10^3/ul (0.83-4.51); Absolute Neutrophil Count 6.5 X10^3/uL (2.0-7.7); Basophil# 0.04 X10^3/uL; Basophil% 0.4 % (0-1); Eosinophils% 3.1 % (0-5); Hematocrit 36.3 % (37-47); Lymphocyte # 2.31 X10^3/ul (4.0); Lymphocyte % 23.6 % (19-41); Mean Corp Hgb Conc 33.1 g/gl (32-36); Mean Corpuscular Hgb 32.3 pg (27.0-32.0); Mean Corpuscular Volume 97.6 fL (81-99); Mean Platelet Vol. 9.9 fl (6.2-12.0); Monocyte# 0.53 X10^3/uL; Monocyte% 5.4 % (0-10); Neutrophil % 66.5 % (47-70); Platelet Count 234 K/mm3 (150-450); RBC Distribution Width SD 41.1 fl (35.1-43.9); Red Blood Count 3.72 M/mm3 (4.2-5.4); White Blood Count 9.8 K/mm3 (4.4-11.0)
[2018-10-31] MEDS: HYDROmorphone 0.5 MG/0.5 ML SYRINGE IV ×6 (06:02→22:56)
[2018-10-31 06:03] LABS: POSITIVE COUNT NO; POSITIVE DIFFERENTIAL NO; POSITIVE MORPHOLOGY NO
[2018-10-31 06:22] LABS: ALB/GLOB Ratio 1.1 RATIO (0.9-2.4); AST(SGOT) 25 U/L (15-37); Alanine Aminotransfer ALT/SGPT 39 U/L (13-56); Albumin, Serum 3.2 g/dL (3.2-5.0); Alkaline Phosphatase 56 U/L (45-117); Anion Gap 9 (5-15); BUN 12 mg/dL (7-18); BUN/Creat Ratio 19.9 RATIO (10-20); Chloride 111 mmol/L (98-107); EST Glomerular Filtration Rate 119 mL/min (>60); Est Glom Filt Rate - Afr Amer 144 mL/min (>60); Estimated Creatinine Clearance 110.86 ml/min; Globulin 2.9 g/dL (2.2-4.2); Glucose 87 mg/dL (74-106); Potassium 4.1 mmol/L (3.5-5.1); Protein, Total 6.1 g/dL (6.4-8.2); Sodium Level 141 mmol/L (136-145)
[2018-10-31] MEDS: DiphenhydrAMINE 50 MG/ML Syringe 25 MG IV ×3 (07:55→22:56)
[2018-10-31] MEDS: 0.9% NaCl Peripheral Flush Adult/Peds IV ×4 (07:56→18:58)
[2018-10-31] MEDS: Enoxaparin 40 MG/0.4 ML Syringe SC (09:19)
--- NOTE | 2018-10-31 09:31 | PCM.CONS.GEN ---
Problem List (1) RUQ pain Status: Acute Reason for Consult Date of Consultation: 10/31/18 Reason for Consultation: Right upper quadrant pain. Postprocedural pain. History of Present Illness: The patient is a 38 year old F who presented with 1 day history of worsening RUQ pain. Patient most recently had a liver ablation on 10/[address] Gonsales at [facility] for a hepatic adenoma. Patient notes this was incidentally found on CTA of the chest in the ED due to having chest pain. Patient had a biopsy of the liver mass proving that this was a benign adenoma. Per patient, the adenoma measured approximately 2 cm. Patient notes post-operatively she had RUQ discomfort for the first 3 days and then after that she minimal amount of discomfort. 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 She noted she returned home from work last night started dinner and approximately 15-20 minutes after she had a severe 10 out of 10 RUQ pain wrapping into her mid back and radiating up into her right shoulder and neck. Patient noted she had nausea associated with the pain. She contacted Dr. Gonsales's office who recommended to come the ED. Patient notes she continues to have some discomfort. Patient had previously had a cholecystectomy [place] [address] High. She notes being placed on Prilosec by her PCP last Jul/Aug to help with heartburn and nausea. She notes it helps with heartburn however denies helping with nausea. Patient at the same time had a left upper extremity lipoma. Incision had dehiscence and a bandage has been placed over top of the area. CT scan of the abdomen was obtained demonstrating abnormal liver consistent with recently treated lesion in the right lobe, No dilated loops of bowel. No hydronephrosis. No fluid collection. Past Medical History Past Medical History (Chronic Problems): Chronic Problems Hepatic adenoma (Chronic) GERD (gastroesophageal reflux disease) (Chronic) Tobacco use (Chronic) Obesity (BMI 30.0-34.9) (Chronic) Status post appendectomy (Chronic) Status post hysterectomy (Chronic) Status post cholecystectomy (Chronic) Allergies latex Allergy (Mild, Verified 10/30/18 19:29) IRRIATION, OR IF SHE INGEST SHE VOMITS. hydromorphone HCl [From Dilaudid] Allergy (Verified 10/30/18 19:29) ITCHY LIKE FIREY ANTS ALL OVER HER SKIN Penicillins Allergy (Verified 10/30/18 19:29) Shortness of breath acetaminophen [From Darvocet-N] Adverse Reaction (Verified 10/30/18 19:29) Nausea meperidine [From Demerol] Adverse Reaction (Verified 10/30/18 19:29) Nausea propoxyphene [From Darvocet-N] Adverse Reaction (Verified 10/30/18 19:29) Nausea varenicline [From Chantix] Adverse Reaction (Verified 10/30/18 19:29) Other Home Medications: Ambulatory Orders Medication Instructions Recorded Cholestyramine (with Sugar) 4 gm PO DAILY 10/30/18 [Cholestyramine Packet] Omeprazole [Prilosec] 40 mg PO DAILY 10/30/18 Surgical History: appendectomy, cholecystectomy, hysterectomy, - - Appendectomy, cholecystectomy, hysterectomy, bilateral wrist cyst removal, right carpal tunnel surgery, recent right liver lobe adenoma ablation in addition to left upper extremity lipoma removal. 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 Smoking Status: Current every day smoker - Patient smokes proximally 1/2 pack/day cigarette tobacco. Tobacco Use: Cigarettes Alcohol: Occasional Drugs: None - *Family History Paternal History Items: - - Patient is adopted and states she does not know any of her maternal or paternal family history. Maternal History Items: - - Patient is adopted and states she does not know any of her maternal or paternal family history. Review of Systems Constitutional: Denies: Chills, Fever, Weight Change HEENT: Denies: Head Aches, Sinus Congestion, Sinus Drainage Cardiovascular: Denies: Chest Pain, Palpitations Respiratory: Denies: Cough, Shortness of breath at rest, Sputum production Gastrointestinal: Reports: Abdominal Pain, Nausea. Denies: Constipation, Diarrhea Genitourinary: Denies: Dysuria Musculoskeletal: Denies: Joint Pain, Joint Tenderness Skin: Reports: Wounds - Left upper extremity. Denies: Rash Neurological: Denies: Numbness, Tingling, Focal weakness Psychiatric: Denies: Anxiety, Depression, Homicidal Ideations, Suicidal Ideations Hematologic/ Lymphatic: Denies: Easy Bruising, Easy Bleeding Patient Problems: Active and Suspected Problems RUQ pain (Acute) - Physical Exam General: Alert, Oriented x3, Cooperative HEENT: Atraumatic, PERRLA, EOMI, Normocephalic Neck: Supple, No JVD, Negative Carotid Bruits Lungs: Clear to auscultation, Normal air movement Cardiovascular: Regular rate, No murmurs Abdomen: Bowel Sounds Present, Soft, Tender - Moderately tender in the RUQ, - - Incisions healing with minimal surrounding erythema Extremities: No edema, Capillary Refill Less than 3 Seconds Skin: Ulcer/ Wound - Left upper extremity- dehiscence of incision with eschar. Tenderness under the incision, Incision - Abdomen Musculoskeletal: No Tenderness to Palpation of Joints or Extremities Neurological: Neuro grossly intact Psych/Mental Status: Normal Affect, Appropriate Vital Signs Temp Pulse Resp BP Pulse Ox 97.6 F L 86 16 128/71 H 98 10/31/18 05:41 10/31/18 05:41 10/31/18 05:41 10/31/18 05:41 10/31/18 05:41 Oxygen Delivery Method Room Air Weight: 180 lb 15.992 oz Body Mass Index (BMI) 31.0 Finger Stick Blood Glucose 93 Intake and Output for Last 24 Hours 10/29/18 10/30/18 10/31/18 23:59 23:59 23:59 Intake Total 639 / 639 Balance 639 / 639 Laboratory Tests Past 24 Hrs 10/30/18 10/30/18 10/30/18 19:36 19:36 20:15 WBC 15.4 H RBC 4.37 Hgb 13.8 Hct 42.4 MCV 97.0 MCH 31.6 MCHC 32.5 RDW 12.5 RDW Differential 44.0 H Plt Count 306 MPV 10.9 Immature Gran % (Auto) 1.400 H Neut % (Auto) 67.8 Lymph % (Auto) 23.7 [place] % (Auto) 4.7 Eos % (Auto) 2.0 Baso % (Auto) 0.4 Absolute Neuts (auto) 10.4 H Absolute Lymphs (auto) 3.64 Total Counted Not Reportable Sodium Cancelled Potassium Cancelled Chloride Cancelled Carbon Dioxide Cancelled Anion Gap Cancelled BUN Cancelled Creatinine Cancelled Estim Creat Clear Calc Cancelled Est GFR (MDRD) Af Amer Cancelled Est GFR (MDRD) Non-Af Cancelled BUN/Creatinine Ratio Cancelled Glucose Cancelled Lactic Acid Calcium Cancelled Total Bilirubin Cancelled AST Cancelled ALT Cancelled Alkaline Phosphatase Cancelled Total Protein Cancelled Albumin Cancelled Globulin Cancelled Albumin/Globulin Ratio Cancelled Lipase Cancelled Urine Color Yellow Urine Clarity Clear Urine pH 5.0 Ur Specific [place] 1.025 Urine Protein Negative Urine Glucose (UA) Normal Urine Ketones 150 H Urine Occult Blood Negative Urine Nitrite Negative Urine Bilirubin Negative Urine Urobilinogen Normal Ur Leukocyte Esterase Negative Urine RBC 0 SEEN Urine WBC 0 SEEN Ur Squamous Epith Cells 0-5 SEEN Urine Bacteria 0 SEEN Urine Mucus 0 SEEN 10/30/18 10/30/18 10/31/18 20:35 20:56 05:32 WBC 9.8 RBC 3.72 L Hgb 12.0 Hct 36.3 L MCV 97.6 MCH 32.3 H MCHC 33.1 RDW 12.0 RDW Differential 41.1 Plt Count 234 MPV 9.9 Immature Gran % (Auto) 1.000 H Neut % (Auto) 66.5 Lymph % (Auto) 23.6 [place] % (Auto) 5.4 Eos % (Auto) 3.1 Baso % (Auto) 0.4 Absolute Neuts (auto) 6.5 Absolute Lymphs (auto) 2.31 Total Counted Not Reportable Sodium 136 Potassium 3.7 Chloride 104 Carbon Dioxide 22.0 Anion Gap 10 BUN 18 Creatinine 0.76 Estim Creat Clear Calc 87.52 Est GFR (MDRD) Af Amer 109 Est GFR (MDRD) Non-Af 90 BUN/Creatinine Ratio 23.6 H Glucose 81 Lactic Acid 0.9 Calcium 9.6 Total Bilirubin 0.20 AST 18 ALT 49 Alkaline Phosphatase 83 Total Protein 8.5 H Albumin 4.6 Globulin 3.9 Albumin/Globulin Ratio 1.2 Lipase 140 Urine Color Urine Clarity Urine pH Ur Specific [place] Urine Protein Urine Glucose (UA) Urine Ketones Urine Occult Blood Urine Nitrite Urine Bilirubin Urine Urobilinogen Ur Leukocyte Esterase Urine RBC Urine WBC Ur Squamous Epith Cells Urine Bacteria Urine Mucus 10/31/18 05:32 WBC RBC Hgb Hct MCV MCH MCHC RDW RDW Differential Plt Count MPV Immature Gran % (Auto) Neut % (Auto) Lymph % (Auto) [place] % (Auto) Eos % (Auto) Baso % (Auto) Absolute Neuts (auto) Absolute Lymphs (auto) Total Counted Sodium 141 Potassium 4.1 Chloride 111 H Carbon Dioxide 21.0 Anion Gap 9 BUN 12 Creatinine 0.60 Estim Creat Clear Calc 110.86 Est GFR (MDRD) Af Amer 144 Est GFR (MDRD) Non-Af 119 BUN/Creatinine Ratio 19.9 Glucose 87 Lactic Acid Calcium 8.0 L Total Bilirubin 0.60 AST 25 ALT 39 Alkaline Phosphatase 56 Total Protein 6.1 L Albumin 3.2 Globulin 2.9 Albumin/Globulin Ratio 1.1 Lipase Urine Color Urine Clarity Urine pH Ur Specific [place] Urine Protein Urine Glucose (UA) Urine Ketones Urine Occult Blood Urine Nitrite Urine Bilirubin Urine Urobilinogen Ur Leukocyte Esterase Urine RBC Urine WBC Ur Squamous Epith Cells Urine Bacteria Urine Mucus Assessment/Plan All Active Problems RUQ pain (Acute) Abnormal stress test (Acute) Chest pain (Acute) Partial obstruction of small intestine (Acute) Abdominal pain (Acute) I have been consulted in conjunction with Dr. Rodriguez. Impression: Postprocedural pain. Moderate amount of RUQ pain Plan: Discussed patient with Dr. Rodriguez. Will allow patient to start a diet. If food causes discomfort, Dr. Rodriguez will plan to perform an upper scope. If food does not cause any further discomfort, pain control will be the plan. Plan has been discussed with the patient. Patient has had the option to be transferred to [facility] to Dr. Gonsales. Patient prefers to be treated here. Patient does not have a follow-up with Dr. Gonsales for another 2 weeks. Sharonda will also evauate patinet and assist with treatment of the incision dehiscence of the left upper extremity. PAtient has ahd the opportunity to ask and have questions answered. PAtient verbally understands and agrees with the plan. Thank you for allowing us to participate in this patient's care. Code Visit Office Visits / Consults: [id number] IP Consult L3
[2018-10-31] MEDS: Cholestyramine/Sucrose 4 GM/PACKET PO (10:23)
--- NOTE | 2018-10-31 10:31 | NURSING ---
wound photo: left upper arm
--- NOTE | 2018-10-31 11:08 | PCM.PN.HOSP ---
Patient Problems: Active and Suspected Problems RUQ pain (Acute) Subjective: Patient seen and examined. She was admitted with a complaint of right upper quadrant abdominal pain which is tolerable with intermittent sharp stabbing pain. She has a history of incidental liver lesion noted per CT in May 2018 with subsequent microwave ablation of the lesion on 10/20/2018 at [facility]. CT of the abdomen was negative for any acute intra-abdominal problem. She was admitted and is been managed for right upper quadrant pain of unknown etiology. General surgery consulted. Seen and examined. Still complains of pain and rates at about 7/10. She denies any associated fever or chills, any nausea vomiting, any diarrhea. Review of systems otherwise negative. Labs and vitals reviewed. Vitals/I&O's: Vital Signs Temp Pulse Resp BP Pulse Ox 97.6 F L 86 16 128/71 H 98 10/31/18 05:41 10/31/18 05:41 10/31/18 05:41 10/31/18 05:41 10/31/18 05:41 Oxygen Delivery Method Room Air Weight: 180 lb 15.992 oz Body Mass Index (BMI) 31.0 Finger Stick Blood Glucose 93 Intake and Output for Last 24 Hours 10/29/18 10/30/18 10/31/18 23:59 23:59 23:59 Intake Total 639 / 639 Balance 639 / 639 General: Alert, Oriented x3, Cooperative, No apparent distress HEENT: Atraumatic, PERRLA, EOMI, Normocephalic Oral: Moist Mucosa Neck: Supple, No JVD, Negative Carotid Bruits Lungs: Clear to auscultation, Normal air movement Cardiovascular: Regular rate, Regular Rhythm, Normal S1, Normal S2, No murmurs Abdomen: Bowel Sounds Present, Soft, Non-Distended, No Hepato-splenomegaly, - - Mild right upper quadrant tenderness with no guarding or rebound tenderness. Extremities: No clubbing, No cyanosis, No edema, Capillary Refill Less than 3 Seconds Skin: No rashes, No breakdown Musculoskeletal: No Tenderness to Palpation of Joints or Extremities Lymphatic: No Cervical, Supraclavicular, or Inguinal Adenopathy Neurological: Cranial nerves II-XII grossly intact, Neuro grossly intact, Motor Exam 5/5 strength throughout Psych/Mental Status: Normal Affect, Appropriate, Alert and oriented to time, place, person, mood and affect Laboratory Results 10/30/18 19:36: WBC 15.4 H, RBC 4.37, Hgb 13.8, Hct 42.4, MCV 97.0, MCH 31.6, MCHC 32.5, RDW 12.5, RDW Differential 44.0 H, Plt Count 306, MPV 10.9, Immature Gran % (Auto) 1.400 H, Neut % (Auto) 67.8, Lymph % (Auto) 23.7, [place] % (Auto) 4.7, Eos % (Auto) 2.0, Baso % (Auto) 0.4, Absolute Neuts (auto) 10.4 H, Absolute Lymphs (auto) 3.64, Total Counted Not Reportable 10/30/18 19:36: Sodium Cancelled, Potassium Cancelled, Chloride Cancelled, Carbon Dioxide Cancelled, Anion Gap Cancelled, BUN Cancelled, Creatinine Cancelled, Estim Creat Clear Calc Cancelled, Est GFR (MDRD) Af Amer Cancelled, Est GFR (MDRD) Non-Af Cancelled, BUN/Creatinine Ratio Cancelled, Glucose Cancelled, Calcium Cancelled, Total Bilirubin Cancelled, AST Cancelled, ALT Cancelled, Alkaline Phosphatase Cancelled, Total Protein Cancelled, Albumin Cancelled, Globulin Cancelled, Albumin/Globulin Ratio Cancelled, Lipase Cancelled 10/30/18 20:15: Urine Color Yellow, Urine Clarity Clear, Urine pH 5.0, Ur Specific [place] 1.025, Urine Protein Negative, Urine Glucose (UA) Normal, Urine Ketones 150 H, Urine Occult Blood Negative, Urine Nitrite Negative, Urine Bilirubin Negative, Urine Urobilinogen Normal, Ur Leukocyte Esterase Negative, Urine RBC 0 SEEN, Urine WBC 0 SEEN, Ur Squamous Epith Cells 0-5 SEEN, Urine Bacteria 0 SEEN, Urine Mucus 0 SEEN 10/30/18 20:35: Sodium 136, Potassium 3.7, Chloride 104, Carbon Dioxide 22.0, Anion Gap 10, BUN 18, Creatinine 0.76, Estim Creat Clear Calc 87.52, Est GFR (MDRD) Af Amer 109, Est GFR (MDRD) Non-Af 90, BUN/Creatinine Ratio 23.6 H, Glucose 81, Calcium 9.6, Total Bilirubin 0.20, AST 18, ALT 49, Alkaline Phosphatase 83, Total Protein 8.5 H, Albumin 4.6, Globulin 3.9, Albumin/Globulin Ratio 1.2, Lipase 140 10/30/18 20:56: Lactic Acid 0.9 10/31/18 05:32: WBC 9.8, RBC 3.72 L, Hgb 12.0, Hct 36.3 L, MCV 97.6, MCH 32.3 H, MCHC 33.1, RDW 12.0, RDW Differential 41.1, Plt Count 234, MPV 9.9, Immature Gran % (Auto) 1.000 H, Neut % (Auto) 66.5, Lymph % (Auto) 23.6, [place] % (Auto) 5.4, Eos % (Auto) 3.1, Baso % (Auto) 0.4, Absolute Neuts (auto) 6.5, Absolute Lymphs (auto) 2.31, Total Counted Not Reportable 10/31/18 05:32: Sodium 141, Potassium 4.1, Chloride 111 H, Carbon Dioxide 21.0, Anion Gap 9, BUN 12, Creatinine 0.60, Estim Creat Clear Calc 110.86, Est GFR (MDRD) Af Amer 144, Est GFR (MDRD) Non-Af 119, BUN/Creatinine Ratio 19.9, Glucose 87, Calcium 8.0 L, Total Bilirubin 0.60, AST 25, ALT 39, Alkaline Phosphatase 56, Total Protein 6.1 L, Albumin 3.2, Globulin 2.9, Albumin/Globulin Ratio 1.1 Diagnostic Data Abdomen/Pelvis CT 10/30/18 21:15 IMPRESSION: Abnormal liver consistent with recently treated lesion in the right lobe. No dilated loops of bowel. No hydronephrosis. No fluid collection. Electronically Signed: Romaine Chand MD at 22:24 EST , Service support , Current Medications Al Hydroxide/Mg Hydroxide (Mylanta Ii) 30 ml PO Q6H PRN PRN PRN Reason: Gastric burning Cholestyramine Resin (Questran 4gm Packet) 4 gm PO DAILY ANDREINA Last Admin: 10/31/18 10:23 Dose: 4 gm Diphenhydramine HCl (Benadryl) 25 mg IV Q4H PRN PRN PRN Reason: PRURITIS Last Admin: 10/31/18 07:55 Dose: 25 mg Enoxaparin Sodium (Lovenox) 40 mg SC DAILY@1000 [facility] Last Admin: 10/31/18 09:19 Dose: 40 mg Hydralazine HCl (Apresoline Iv) 10 mg IV Q4H PRN PRN PRN Reason: SBP > 160 Hydromorphone HCl (Dilaudid Inj) 0.5 mg IV Q3H PRN PRN PRN Reason: SEVERE PAIN (6-10/10) Last Admin: 10/31/18 09:18 Dose: 0.5 mg Sodium Chloride () 1,000 mls @ 125 mls/hr IV .Q8H [facility] Last Admin: 10/31/18 09:13 Dose: 125 mls/hr Pantoprazole Sodium 40 mg/ (Sodium Chloride) 110 mls @ 330 mls/hr IV Q12 [facility] Last Admin: 10/31/18 10:56 Dose: 330 mls/hr Magnesium Hydroxide (Milk Of Magnesia) 30 ml PO DAILY PRN PRN PRN Reason: Constipation Nicotine (Nicoderm Cq (Pbkc)) 14 mg TRANSDERM. DAILY [facility] Last Admin: 10/31/18 09:19 Dose: 14 mg Ondansetron HCl (Zofran) 4 mg IV Q8H PRN PRN PRN Reason: NAUSEA Last Admin: 10/31/18 04:04 Dose: 4 mg Oxycodone HCl (Oxyir) 5 - 10 mg PO Q4H PRN PRN PRN Reason: SEVERE PAIN (6-10/10) Promethazine HCl (Phenergan) 6.25 mg IV Q4H PRN PRN PRN Reason: NAUSEA/VOMITING Last Admin: 10/31/18 10:04 Dose: 6.25 mg Sodium Chloride () 5 - 15 ml IV UD PRN PRN Reason: SALINE FLUSH Last Admin: 10/31/18 10:04 Dose: 10 ml Temazepam (Restoril) 15 mg PO QHS PRN PRN PRN Reason: insomnia Medical Necessity - Tobacco Use Smoking Status: Current every day smoker - Patient smokes proximally 1/2 pack/day cigarette tobacco. Tobacco Use: Cigarettes Assessment/Plan All Active Problems RUQ pain (Acute) Abnormal stress test (Acute) Chest pain (Acute) Partial obstruction of small intestine (Acute) Abdominal pain (Acute) 1. RUQ pain of unclear etiology still complains of RUQ pain, rated at 7/10; pain radiates to right shoulder. s/p adenoma removal currently NPO; on IV zofran and pain meds CT abdomen/pelvis: Abnormal liver consistent with recently treated lesion in the right lobe. No dilated loops of bowel, no hydronephrosis or fluid collection. On IV PPI. Leukocytosis present on admission has resolved. The which general surgery Maged. 2. Left upper extremity lipoma status post resection with incisional dehiscence: Wound nurse consulted. 3. Nicotine dependence: Encourage cessation. 4. Obesity: Counseled on lifestyle changes. 5. GERD: On IV PPI DVT prophylaxis: Lovenox Code Visit OBSV E&M: 73949 Subsequent observation care L3
--- NOTE | 2018-10-31 11:12 | PN_ITS ---
Patient Problems: Active and Suspected Problems RUQ pain (Acute) Subjective: Patient seen and examined. She was admitted with a complaint of right upper quadrant abdominal pain which is tolerable with intermittent sharp stabbing pain. She has a history of incidental liver lesion noted per CT in May 2018 with subsequent microwave ablation of the lesion on 10/20/[address] [facility]. CT of the abdomen was negative for any acute intra-abdominal problem. She was admitted and is been managed for right upper quadrant pain of unknown etiology. General surgery consulted. Seen and examined. Still complains of pain and rates at about 7/10. She denies any associated fever or chills, any nausea vomiting, any diarrhea. Review of systems otherwise negative. Labs and vitals reviewed. Vitals/I&O's: Vital Signs Temp Pulse Resp BP Pulse Ox 97.6 F L 86 16 128/71 H 98 10/31/18 05:41 10/31/18 05:41 10/31/18 05:41 10/31/18 05:41 10/31/18 05:41 Oxygen Delivery Method Room Air Weight: 180 lb 15.992 oz Body Mass Index (BMI) 31.0 Finger Stick Blood Glucose 93 Intake and Output for Last 24 Hours 10/29/18 10/30/18 10/31/18 23:59 23:59 23:59 Intake Total 639 / 639 Balance 639 / 639 General: Alert, Oriented x3, Cooperative, No apparent distress HEENT: Atraumatic, PERRLA, EOMI, Normocephalic Oral: Moist Mucosa Neck: Supple, No JVD, Negative Carotid Bruits Lungs: Clear to auscultation, Normal air movement Cardiovascular: Regular rate, Regular Rhythm, Normal S1, Normal S2, No murmurs Abdomen: Bowel Sounds Present, Soft, Non-Distended, No Hepato-splenomegaly, - - Mild right upper quadrant tenderness with no guarding or rebound tenderness. Extremities: No clubbing, No cyanosis, No edema, Capillary Refill Less than 3 Seconds Skin: No rashes, No breakdown Musculoskeletal: No Tenderness to Palpation of Joints or Extremities Lymphatic: No Cervical, Supraclavicular, or Inguinal Adenopathy Neurological: Cranial nerves II-XII grossly intact, Neuro grossly intact, Motor Exam 5/5 strength throughout Psych/Mental Status: Normal Affect, Appropriate, Alert and oriented to time, place, person, mood and affect Laboratory Results 10/30/18 19:36: WBC 15.4 H, RBC 4.37, Hgb 13.8, Hct 42.4, MCV 97.0, MCH 31.6, MCHC 32.5, RDW 12.5, RDW Differential 44.0 H, Plt Count 306, MPV 10.9, Immature Gran % (Auto) 1.400 H, Neut % (Auto) 67.8, Lymph % (Auto) 23.7, [place] % (Auto) 4.7, Eos % (Auto) 2.0, Baso % (Auto) 0.4, Absolute Neuts (auto) 10.4 H, Absolute Lymphs (auto) 3.64, Total Counted Not Reportable 10/30/18 19:36: Sodium Cancelled, Potassium Cancelled, Chloride Cancelled, Carbon Dioxide Cancelled, Anion Gap Cancelled, BUN Cancelled, Creatinine Cancelled, Estim Creat Clear Calc Cancelled, Est GFR (MDRD) Af Amer Cancelled, Est GFR (MDRD) Non-Af Cancelled, BUN/Creatinine Ratio Cancelled, Glucose Cancelled, Calcium Cancelled, Total Bilirubin Cancelled, AST Cancelled, ALT Cancelled, Alkaline Phosphatase Cancelled, Total Protein Cancelled, Albumin Cancelled, Globulin Cancelled, Albumin/Globulin Ratio Cancelled, Lipase Cancelled 10/30/18 20:15: Urine Color Yellow, Urine Clarity Clear, Urine pH 5.0, Ur Specific [place] 1.025, Urine Protein Negative, Urine Glucose (UA) Normal, Urine Ketones 150 H, Urine Occult Blood Negative, Urine Nitrite Negative, Urine Bilirubin Negative, Urine Urobilinogen Normal, Ur Leukocyte Esterase Negative, Urine RBC 0 SEEN, Urine WBC 0 SEEN, Ur Squamous Epith Cells 0-5 SEEN, Urine Bacteria 0 SEEN, Urine Mucus 0 SEEN 10/30/18 20:35: Sodium 136, Potassium 3.7, Chloride 104, Carbon Dioxide 22.0, Anion Gap 10, BUN 18, Creatinine 0.76, Estim Creat Clear Calc 87.52, Est GFR (MDRD) Af Amer 109, Est GFR (MDRD) Non-Af 90, BUN/Creatinine Ratio 23.6 H, Glucose 81, Calcium 9.6, Total Bilirubin 0.20, AST 18, ALT 49, Alkaline Phosphatase 83, Total Protein 8.5 H, Albumin 4.6, Globulin 3.9, Albumin/Globulin Ratio 1.2, Lipase 140 10/30/18 20:56: Lactic Acid 0.9 10/31/18 05:32: WBC 9.8, RBC 3.72 L, Hgb 12.0, Hct 36.3 L, MCV 97.6, MCH 32.3 H, MCHC 33.1, RDW 12.0, RDW Differential 41.1, Plt Count 234, MPV 9.9, Immature Gran % (Auto) 1.000 H, Neut % (Auto) 66.5, Lymph % (Auto) 23.6, [place] % (Auto) 5.4, Eos % (Auto) 3.1, Baso % (Auto) 0.4, Absolute Neuts (auto) 6.5, Absolute Lymphs (auto) 2.31, Total Counted Not Reportable 10/31/18 05:32: Sodium 141, Potassium 4.1, Chloride 111 H, Carbon Dioxide 21.0, Anion Gap 9, BUN 12, Creatinine 0.60, Estim Creat Clear Calc 110.86, Est GFR (MDRD) Af Amer 144, Est GFR (MDRD) Non-Af 119, BUN/Creatinine Ratio 19.9, Glucose 87, Calcium 8.0 L, Total Bilirubin 0.60, AST 25, ALT 39, Alkaline Phosphatase 56, Total Protein 6.1 L, Albumin 3.2, Globulin 2.9, Albumin/Globulin Ratio 1.1 Diagnostic Data Abdomen/Pelvis CT 10/30/18 21:15 IMPRESSION: Abnormal liver consistent with recently treated lesion in the right lobe. No dilated loops of bowel. No hydronephrosis. No fluid collection. Electronically Signed: Romaine Chand MD at 22:24 EST , Service support , Current Medications Al Hydroxide/Mg Hydroxide (Mylanta Ii) 30 ml PO Q6H PRN PRN PRN Reason: Gastric burning Cholestyramine Resin (Questran 4gm Packet) 4 gm PO DAILY [facility] Last Admin: 10/31/18 10:23 Dose: 4 gm Diphenhydramine HCl (Benadryl) 25 mg IV Q4H PRN PRN PRN Reason: PRURITIS Last Admin: 10/31/18 07:55 Dose: 25 mg Enoxaparin Sodium (Lovenox) 40 mg SC DAILY@1000 [facility] Last Admin: 10/31/18 09:19 Dose: 40 mg Hydralazine HCl (Apresoline Iv) 10 mg IV Q4H PRN PRN PRN Reason: SBP > 160 Hydromorphone HCl (Dilaudid Inj) 0.5 mg IV Q3H PRN PRN PRN Reason: SEVERE PAIN (6-10/10) Last Admin: 10/31/18 09:18 Dose: 0.5 mg Sodium Chloride () 1,000 mls @ 125 mls/hr IV .Q8H [facility] Last Admin: 10/31/18 09:13 Dose: 125 mls/hr Pantoprazole Sodium 40 mg/ (Sodium Chloride) 110 mls @ 330 mls/hr IV Q12 [facility] Last Admin: 10/31/18 10:56 Dose: 330 mls/hr Magnesium Hydroxide (Milk Of Magnesia) 30 ml PO DAILY PRN PRN PRN Reason: Constipation Nicotine (Nicoderm Cq (Pbkc)) 14 mg TRANSDERM. DAILY [facility] Last Admin: 10/31/18 09:19 Dose: 14 mg Ondansetron HCl (Zofran) 4 mg IV Q8H PRN PRN PRN Reason: NAUSEA Last Admin: 10/31/18 04:04 Dose: 4 mg Oxycodone HCl (Oxyir) 5 - 10 mg PO Q4H PRN PRN PRN Reason: SEVERE PAIN (6-10/10) Promethazine HCl (Phenergan) 6.25 mg IV Q4H PRN PRN PRN Reason: NAUSEA/VOMITING Last Admin: 10/31/18 10:04 Dose: 6.25 mg Sodium Chloride () 5 - 15 ml IV UD PRN PRN Reason: SALINE FLUSH Last Admin: 10/31/18 10:04 Dose: 10 ml Temazepam (Restoril) 15 mg PO QHS PRN PRN PRN Reason: insomnia Medical Necessity - Tobacco Use Smoking Status: Current every day smoker - Patient smokes proximally 1/2 pack/day cigarette tobacco. Tobacco Use: Cigarettes Assessment/Plan All Active Problems RUQ pain (Acute) Abnormal stress test (Acute) Chest pain (Acute) Partial obstruction of small intestine (Acute) Abdominal pain (Acute) 1. RUQ pain of unclear etiology * still complains of RUQ pain, rated at 7/10; pain radiates to right shoulder. * s/p adenoma removal * currently NPO; on IV zofran and pain meds * CT abdomen/pelvis: Abnormal liver consistent with recently treated lesion in the right lobe. No dilated loops of bowel, no hydronephrosis or fluid collection. * On IV PPI. * Leukocytosis present on admission has resolved. * The which general surgery Maged. * 2. Left upper extremity lipoma status post resection with incisional dehiscence: Wound nurse consulted. 3. Nicotine dependence: Encourage cessation. 4. Obesity: Counseled on lifestyle changes. 5. GERD: On IV PPI DVT prophylaxis: Lovenox Code Visit OBSV E&M: 12415 Subsequent observation care L3
--- NOTE | 2018-10-31 12:17 | CASEMGMT ---
Social Work Assessment Referral Date: 10/31/2018 Date of Assessment: 10/31/2018 Reason for consult: Mental Health/Suicide attempt 09/03/2017 Informant: KAYLEIGH Personal Status: SW met with pt to complete initial assessment. SW introduced self and role at [facility]. Pt is alert and orientated x4. Pt states that she lives with her significant other and son. Pt states that she was previously independent with ADLs. Pt states that she currently works at [employer]. Pt states that she plans to return home at discharge and denied additional needs or concerns at this time. Substance Abuse Hx: Pt states that she currently smokes half a pack of cigarettes a day. Pt denied additional substance abuse/use. Mental Health Hx: Pt states that she has a history of depression and anxiety. Pt states that her depression is gone and her anxiety is very rare. Pt denied taking any current medication and states I just learned coping skills. Pt states that her coping skills are cooking, disconnecting from others, and talking to people. Pt identifies her significant other and son as good supports for her. Pt states that she used to see a counselor in the past but denied currently seeing one. Pt denied any current suicidal/homicidal thoughts/plans/ideations. Pt denied wanting additional resources. Per previous visits note, pt had a suicide attempt 09/03/2017 where pt was drinking with her boyfriend and they had a verbal altercation and pt took a knife to her wrist and made abrasions. Pt currently denied any suicidal thoughts/plans/ideations and denied wanting additional resources. Pt was able to identify good supports for herself. Sara Bergeron MACHINE [employer], [employer]
--- NOTE | 2018-10-31 12:21 | NURSING ---
PT C/O ABD PAIN/NAUSEA AFTER FULL LIQUIDS. PT STATES SHE CAN FEEL HER STOMACH ROLLING. PT AGAIN MADE NPO & Elizabeth BRYSON MADE AWARE.
[2018-10-31] MEDS: oxyCODONE 5 MG Tablet PO (17:56)
--- NOTE | 2018-10-31 18:51 | NURSING ---
PT C/O HEADACHE UNRELIEVED BY OXYIR. ORDER FOR TORADOL IV X1.
[2018-10-31] MEDS: Ketorolac 30 MG/ML Syringe IV (18:58)
[2018-10-31] MEDS: Zolpidem Tartrate 5 MG Tablet PO (22:56)
[2018-11-01] VITALS (10 sets, daily range): BP systolic 108–146; BP diastolic 67–86; PULSE 81–94; RESP 16–18; TEMP 36.6–37; O2SAT 93–99; BMI 30.9
--- NOTE | 2018-11-01 | EGD_PTH ---
PATIENT: NELSON BURROWS LOC: MS3 U#:[id number] AGE/SX: 38/F ROOM: MS319 RE10/30/[address]: Dr. Sepideh Garcia MD : 1980 BED: 1 DIS: 11/02/2018 SPEC #: [id number] RECD: 11/01/18 10:43 STATUS: ALLA ITZEL #: [id number] REGINA: 11/01/18 00:[address]: Av Rodriguez DEPT: SURGICAL PATHOLOGY RECD BY: Bill Barnard ENTERED: 11/01/18 11:06 SP TYPE: EGD BIOPSY [facility] DR: MD Dr. Arleen Brown MD Dr. Nana Yaa Koram, MD Tissues: Gastric mucous membrane Procedures: Surgery Specimen Level IV HEADER OPERATION: EGD ([facility] [place]) PRE-OP DIAGNOSIS: Abdominal pain TISSUE SUBMITTED: Antral biopsy for H. pylori and pathology MICROSCOPIC DIAGNOSIS Gastric antrum, biopsy: Minimal chronic inflammation. See comment. AM:devante 11/02/18 COMMENT The results of immunohistochemistry for Helicobacter pylori will be reported separately ([id number]). MICROSCOPIC DESCRIPTION Slides are reviewed. GROSS DESCRIPTION Received in fixative is one container labeled with the patient's name and designated antral biopsy. The specimen consists of one irregular fragment of light carrillo soft tissue that measures 0.8 x 0.2 x 0.1 cm. The specimen is totally submitted in one cassette. / AM:devante 11/01/18 TC:3 CPT: 79640
[2018-11-01] MEDS: 0.9% Normal Saline 1,000 ML 125 ML IV ×3 (02:18→23:48)
[2018-11-01] MEDS: proMETHazine 25 MG/ML Syringe 6.25 MG IV ×4 (02:19→23:58)
[2018-11-01] MEDS: HYDROmorphone 0.5 MG/0.5 ML SYRINGE IV ×6 (02:19→22:02)
[2018-11-01] MEDS: 0.9% NaCl Peripheral Flush Adult/Peds IV ×6 (02:20→18:40)
[2018-11-01] MEDS: DiphenhydrAMINE 50 MG/ML Syringe 25 MG IV ×3 (06:12→22:03)
[2018-11-01 06:29] LABS: Absolute Lymphocyte Count 2.57 X10^3/ul (0.83-4.51); Absolute Neutrophil Count 6.7 X10^3/uL (2.0-7.7); Basophil# 0.03 X10^3/uL; Basophil% 0.3 % (0-1); Eosinophil# 0.26 X10^3/uL; Eosinophils% 2.6 % (0-5); Hematocrit 37.1 % (37-47); Hemoglobin 12.1 g/dl (12.0-15.0); Lymphocyte # 2.57 X10^3/ul (4.0); Lymphocyte % 25.4 % (19-41); Mean Corp Hgb Conc 32.6 g/gl (32-36); Mean Corpuscular Volume 98.1 fL (81-99); Monocyte# 0.49 X10^3/uL; Monocyte% 4.8 % (0-10); Neutrophil # 6.65 X10^3/uL (2.7-7.7); Neutrophil % 65.8 % (47-70); Platelet Count 198 K/mm3 (150-450); RBC Distribution Width CV 12.1 % (11.6-14.6); RBC Distribution Width SD 43.3 fl (35.1-43.9); Red Blood Count 3.78 M/mm3 (4.2-5.4); White Blood Count 10.1 K/mm3 (4.4-11.0)
[2018-11-01 06:32] LABS: Anion Gap 9 (5-15); BUN 7 mg/dL (7-18); BUN/Creat Ratio 13.8 RATIO (10-20); Calcium,Total 7.8 mg/dL (8.5-10.1); Chloride 112 mmol/L (98-107); Creatinine, Serum 0.51 mg/dL (0.55-1.02); EST Glomerular Filtration Rate 144 mL/min (>60); Est Glom Filt Rate - Afr Amer 174 mL/min (>60); Estimated Creatinine Clearance 130.42 ml/min; Glucose 74 mg/dL (74-106); Potassium 4.7 mmol/L (3.5-5.1); Sodium Level 138 mmol/L (136-145)
[2018-11-01 06:37] LABS: POSITIVE COUNT NO; POSITIVE DIFFERENTIAL NO; POSITIVE MORPHOLOGY NO
--- NOTE | 2018-11-01 09:40 | NURSING ---
pt off unit to AC
--- NOTE | 2018-11-01 10:55 | NM_ITS ---
CLINICAL: 38-year-old female with history of remote cholecystectomy and recent ablation of primary hepatic adenoma with current complaint of right upper quadrant abdominal pain. RADIONUCLIDE HEPATOBILIARY SCINTIGRAPHY COMPARISON: CT of the abdomen-pelvis 10/30/2018 FINDINGS: Following the intravenous administration of 5.5 mCi of 99m Tc Mebrofenin, hepatobiliary images reveal: 1. Relatively prompt and homogeneous radiopharmaceutical concentration is noted by a normal sized liver. A subtle parenchymal defect is defined in the upper lateral right lobe in the distribution of segment VII. 2. Gallbladder activity is not identified during 60 minutes of sequential imaging commensurate with known history of prior cholecystectomy. 3. Prominent common bile duct distribution of the radiotracer is defined, initiating approximately 30 minutes following tracer injection. Small intestinal tract is observed at approximately 30 minutes post radiopharmaceutical administration. 4. Washout of the radiopharmaceutical by the hepatic parenchyma appears qualitatively normal. 5. There is no evidence of a visualized bile leak identified during 60 minutes of sequential imaging. NM/Hepatobilliary Imaging IMPRESSION: 1. Nonvisualization of the gallbladder is consistent with prior cholecystectomy. 2. There is no scintigraphic evidence of bile leak. 3. The prominent sized common bile duct may be further investigated with abdominal ultrasound if clinically indicated. Electronically Signed: Juan Baumann DO at 12:54 EST Tel , Service support ,
--- NOTE | 2018-11-01 11:00 | IMM_PTH ---
PATIENT: NELSON BURROWS LOC: MS3 U#:[id number] AGE/SX: 38/F ROOM: MS319 RE10/30/[address]: Dr. Sepideh Garcia MD : 1980 BED: 1 DIS: 11/02/2018 SPEC #: [id number] RECD: 11/01/18 13:08 STATUS: ALLA RESonia #: [id number] REGINA: 11/01/18 11:[address]: Av Rodriguez DEPT: IMMUNOHISTOCHEMISTRY RECD BY: Lenka Alexander ENTERED: 11/01/18 13:09 SP TYPE: IMMUNO OTHR DR: MD Dr. Arleen Brown MD Dr. Nana Yaa Koram, MD Tissues: Stomach, NOS Procedures: H Pylori (initial) PHYSICIAN & INSTITUTION [place] [id number] SPECIMEN INFORMATION: Tissue Source: Antral biopsy Clinical Info: Abdominal pain Specimen Number: [id number] CPT code: 79121 METHODOLOGY: Deparaffinized sections of prefer/formalin-fixed tissue or PAP/DQ stained slides are incubated with monoclonal/polyclonal antibodies/oligonucleotide probes. Localization is made via biotin free immunoperoxidase method. Appropriate controls are performed and reacted as expected. Results on target cell population are indicated in the following table: RESULTS: ANTIBODY / CLONE RESULT H Pylori (polyclonal) negative These tests were developed and their performance characteristics determined by [facility]. They may not have been cleared or approved by the U.S. Food and Drug Administration. The FDA has determined that such clearance or approval is not necessary. INTERPRETATION: Antral biopsy: Negative for Helicobacter pylori organisms. AM:devante 11/02/18
--- NOTE | 2018-11-01 11:23 | NURSING ---
pt off unit for testing.
--- NOTE | 2018-11-01 12:03 | PCM.PN.HOSP ---
Patient Problems: Active and Suspected Problems RUQ pain (Acute) Subjective: Patient seen and examined. She still complains of abdominal pain, and rated it 7/10. She denied any fever, chills, cough, chest pain, SOB, diarrhea or vomiting. Review of systems otherwise negative. She is to have EGD today Vitals/I&O's: Vital Signs Temp Pulse Resp BP Pulse Ox 97.9 F 85 18 126/84 H 99 11/01/18 11:10 11/01/18 11:10 11/01/18 11:10 11/01/18 11:10 11/01/18 11:10 Oxygen Delivery Method Room Air Weight: 180 lb 15.992 oz Body Mass Index (BMI) 30.9 Finger Stick Blood Glucose 93 Intake and Output for Last 24 Hours 10/30/18 10/31/18 11/01/18 23:59 23:59 23:59 Intake Total 3276 / 3276 801 / 801 Output Total 350 / 350 Balance 3276 / 3276 451 / 451 General: Alert, Oriented x3, Cooperative, No apparent distress HEENT: Atraumatic, PERRLA, EOMI, Normocephalic Oral: Moist Mucosa Neck: Supple, No JVD, Negative Carotid Bruits Lungs: Clear to auscultation, Normal air movement Cardiovascular: Regular rate, Regular Rhythm, Normal S1, Normal S2, No murmurs Abdomen: Bowel Sounds Present, Soft, Non-Distended, No Hepato-splenomegaly, - - Mild right upper quadrant and epigastric tenderness with no guarding or rebound tenderness. Extremities: No clubbing, No cyanosis, No edema, Capillary Refill Less than 3 Seconds Skin: No rashes, No breakdown Musculoskeletal: No Tenderness to Palpation of Joints or Extremities Lymphatic: No Cervical, Supraclavicular, or Inguinal Adenopathy Neurological: Cranial nerves II-XII grossly intact, Neuro grossly intact, Motor Exam 5/5 strength throughout Psych/Mental Status: Normal Affect, Appropriate, Alert and oriented to time, place, person, mood and affect Laboratory Results 11/01/18 05:56: WBC 10.1, RBC 3.78 L, Hgb 12.1, Hct 37.1, MCV 98.1, MCH 32.0, MCHC 32.6, RDW 12.1, RDW Differential 43.3, Plt Count 198, MPV 10.0, Immature Gran % (Auto) 1.100 H, Neut % (Auto) 65.8, Lymph % (Auto) 25.4, [place] % (Auto) 4.8, Eos % (Auto) 2.6, Baso % (Auto) 0.3, Absolute Neuts (auto) 6.7, Absolute Lymphs (auto) 2.57, Total Counted Not Reportable 11/01/18 05:56: Sodium 138, Potassium 4.7, Chloride 112 H, Carbon Dioxide 17.0 L, Anion Gap 9, BUN 7, Creatinine 0.51 L, Estim Creat Clear Calc 130.42, Est GFR (MDRD) Af Amer 174, Est GFR (MDRD) Non-Af 144, BUN/Creatinine Ratio 13.8, Glucose 74, Calcium 7.8 L Current Medications Al Hydroxide/Mg Hydroxide (Mylanta Ii) 30 ml PO Q6H PRN PRN PRN Reason: Gastric burning Cholestyramine Resin (Questran 4gm Packet) 4 gm PO DAILY [facility] Last Admin: 10/31/18 10:23 Dose: 4 gm Diphenhydramine HCl (Benadryl) 25 mg IV Q4H PRN PRN PRN Reason: PRURITIS Last Admin: 11/01/18 06:12 Dose: 25 mg Enoxaparin Sodium (Lovenox) 40 mg SC DAILY@1000 [facility] Last Admin: 10/31/18 09:19 Dose: 40 mg Hydralazine HCl (Apresoline Iv) 10 mg IV Q4H PRN PRN PRN Reason: SBP > 160 Hydromorphone HCl (Dilaudid Inj) 0.5 mg IV Q3H PRN PRN PRN Reason: SEVERE PAIN (6-10/10) Last Admin: 11/01/18 09:31 Dose: 0.5 mg Sodium Chloride () 1,000 mls @ 125 mls/hr IV .Q8H [facility] Last Admin: 11/01/18 02:18 Dose: 125 mls/hr Pantoprazole Sodium 40 mg/ (Sodium Chloride) 110 mls @ 330 mls/hr IV Q12 [facility] Last Admin: 11/01/18 08:14 Dose: 330 mls/hr Magnesium Hydroxide (Milk Of Magnesia) 30 ml PO DAILY PRN PRN PRN Reason: Constipation Nicotine (Nicoderm Cq (Pbkc)) 14 mg TRANSDERM. DAILY [facility] Last Admin: 10/31/18 09:19 Dose: 14 mg Ondansetron HCl (Zofran) 4 mg IV Q8H PRN PRN PRN Reason: NAUSEA Last Admin: 10/31/18 23:07 Dose: 4 mg Oxycodone HCl (Oxyir) 5 - 10 mg PO Q4H PRN PRN PRN Reason: SEVERE PAIN (6-10/10) Last Admin: 10/31/18 17:56 Dose: 10 mg Promethazine HCl (Phenergan) 6.25 mg IV Q4H PRN PRN PRN Reason: NAUSEA/VOMITING Last Admin: 11/01/18 11:20 Dose: 6.25 mg Sodium Chloride () 5 - 15 ml IV UD PRN PRN Reason: SALINE FLUSH Last Admin: 11/01/18 11:20 Dose: 10 ml Temazepam (Restoril) 15 mg PO QHS PRN PRN PRN Reason: insomnia Medical Necessity - Tobacco Use Smoking Status: Current every day smoker - Patient smokes proximally 1/2 pack/day cigarette tobacco. Tobacco Use: Cigarettes Assessment/Plan All Active Problems RUQ pain (Acute) Abnormal stress test (Acute) Chest pain (Acute) Partial obstruction of small intestine (Acute) Abdominal pain (Acute) 1. RUQ pain of unclear etiology still complains of RUQ pain, rated at 7/10; pain radiates to right shoulder. s/p liver adenoma removal on IV zofran; on IV dilaudid for pain. currently NPO; on IV zofran and pain meds CT abdomen/pelvis: Abnormal liver consistent with recently treated lesion in the right lobe. No dilated loops of bowel, no hydronephrosis or fluid collection. On IV PPI. she had EGD today which was negative per discussion with general surgery, will order HIDA scan to rule out a biliary stump leak 2. Left upper extremity lipoma status post resection with incisional dehiscence: Wound nurse on board 3. Nicotine dependence: Encourage cessation. 4. Obesity: Counseled on lifestyle changes. complicates management and expected recovery 5. GERD: On IV PPI DVT prophylaxis: Lovenox Code Visit OBSV E&M: 66962 Subsequent observation care L3
--- NOTE | 2018-11-01 12:07 | PN_ITS ---
Patient Problems: Active and Suspected Problems RUQ pain (Acute) Subjective: Patient seen and examined. She still complains of abdominal pain, and rated it 7/10. She denied any fever, chills, cough, chest pain, SOB, diarrhea or vomiting. Review of systems otherwise negative. She is to have EGD today Vitals/I&O's: Vital Signs Temp Pulse Resp BP Pulse Ox 97.9 F 85 18 126/84 H 99 11/01/18 11:10 11/01/18 11:10 11/01/18 11:10 11/01/18 11:10 11/01/18 11:10 Oxygen Delivery Method Room Air Weight: 180 lb 15.992 oz Body Mass Index (BMI) 30.9 Finger Stick Blood Glucose 93 Intake and Output for Last 24 Hours 10/30/18 10/31/18 11/01/18 23:59 23:59 23:59 Intake Total 3276 / 3276 801 / 801 Output Total 350 / 350 Balance 3276 / 3276 451 / 451 General: Alert, Oriented x3, Cooperative, No apparent distress HEENT: Atraumatic, PERRLA, EOMI, Normocephalic Oral: Moist Mucosa Neck: Supple, No JVD, Negative Carotid Bruits Lungs: Clear to auscultation, Normal air movement Cardiovascular: Regular rate, Regular Rhythm, Normal S1, Normal S2, No murmurs Abdomen: Bowel Sounds Present, Soft, Non-Distended, No Hepato-splenomegaly, - - Mild right upper quadrant and epigastric tenderness with no guarding or rebound tenderness. Extremities: No clubbing, No cyanosis, No edema, Capillary Refill Less than 3 Seconds Skin: No rashes, No breakdown Musculoskeletal: No Tenderness to Palpation of Joints or Extremities Lymphatic: No Cervical, Supraclavicular, or Inguinal Adenopathy Neurological: Cranial nerves II-XII grossly intact, Neuro grossly intact, Motor Exam 5/5 strength throughout Psych/Mental Status: Normal Affect, Appropriate, Alert and oriented to time, place, person, mood and affect Laboratory Results 11/01/18 05:56: WBC 10.1, RBC 3.78 L, Hgb 12.1, Hct 37.1, MCV 98.1, MCH 32.0, MCHC 32.6, RDW 12.1, RDW Differential 43.3, Plt Count 198, MPV 10.0, Immature G ran % (Auto) 1.100 H, Neut % (Auto) 65.8, Lymph % (Auto) 25.4, [place] % (Auto) 4.8, Eos % (Auto) 2.6, Baso % (Auto) 0.3, Absolute Neuts (auto) 6.7, Absolute Lymphs (auto) 2.57, Total Counted Not Reportable 11/01/18 05:56: Sodium 138, Potassium 4.7, Chloride 112 H, Carbon Dioxide 17.0 L , Anion Gap 9, BUN 7, Creatinine 0.51 L, Estim Creat Clear Calc 130.42, Est GFR (MDRD) Af Amer 174, Est GFR (MDRD) Non-Af 144, BUN/Creatinine Ratio 13.8, Glucose 74, Calcium 7.8 L Current Medications Al Hydroxide/Mg Hydroxide (Mylanta Ii) 30 ml PO Q6H PRN PRN PRN Reason: Gastric burning Cholestyramine Resin (Questran 4gm Packet) 4 gm PO DAILY [facility] Last Admin: 10/31/18 10:23 Dose: 4 gm Diphenhydramine HCl (Benadryl) 25 mg IV Q4H PRN PRN PRN Reason: PRURITIS Last Admin: 11/01/18 06:12 Dose: 25 mg Enoxaparin Sodium (Lovenox) 40 mg SC DAILY@1000 [facility] Last Admin: 10/31/18 09:19 Dose: 40 mg Hydralazine HCl (Apresoline Iv) 10 mg IV Q4H PRN PRN PRN Reason: SBP > 160 Hydromorphone HCl (Dilaudid Inj) 0.5 mg IV Q3H PRN PRN PRN Reason: SEVERE PAIN (6-10/10) Last Admin: 11/01/18 09:31 Dose: 0.5 mg Sodium Chloride () 1,000 mls @ 125 mls/hr IV .Q8H [facility] Last Admin: 11/01/18 02:18 Dose: 125 mls/hr Pantoprazole Sodium 40 mg/ (Sodium Chloride) 110 mls @ 330 mls/hr IV Q12 [facility] Last Admin: 11/01/18 08:14 Dose: 330 mls/hr Magnesium Hydroxide (Milk Of Magnesia) 30 ml PO DAILY PRN PRN PRN Reason: Constipation Nicotine (Nicoderm Cq (Pbkc)) 14 mg TRANSDERM. DAILY [facility] Last Admin: 10/31/18 09:19 Dose: 14 mg Ondansetron HCl (Zofran) 4 mg IV Q8H PRN PRN PRN Reason: NAUSEA Last Admin: 10/31/18 23:07 Dose: 4 mg Oxycodone HCl (Oxyir) 5 - 10 mg PO Q4H PRN PRN PRN Reason: SEVERE PAIN (6-10/10) Last Admin: 10/31/18 17:56 Dose: 10 mg Promethazine HCl (Phenergan) 6.25 mg IV Q4H PRN PRN PRN Reason: NAUSEA/VOMITING Last Admin: 11/01/18 11:20 Dose: 6.25 mg Sodium Chloride () 5 - 15 ml IV UD PRN PRN Reason: SALINE FLUSH Last Admin: 11/01/18 11:20 Dose: 10 ml Temazepam (Restoril) 15 mg PO QHS PRN PRN PRN Reason: insomnia Medical Necessity - Tobacco Use Smoking Status: Current every day smoker - Patient smokes proximally 1/2 pack/day cigarette tobacco. Tobacco Use: Cigarettes Assessment/Plan All Active Problems RUQ pain (Acute) Abnormal stress test (Acute) Chest pain (Acute) Partial obstruction of small intestine (Acute) Abdominal pain (Acute) 1. RUQ pain of unclear etiology * still complains of RUQ pain, rated at 7/10; pain radiates to right shoulder. * s/p liver adenoma removal * on IV zofran; on IV dilaudid for pain. * currently NPO; on IV zofran and pain meds * CT abdomen/pelvis: Abnormal liver consistent with recently treated lesion in the right lobe. No dilated loops of bowel, no hydronephrosis or fluid collection. * On IV PPI. * she had EGD today which was negative * per discussion with general surgery, will order HIDA scan to rule out a biliary stump leak * 2. Left upper extremity lipoma status post resection with incisional dehiscence: Wound nurse on board 3. Nicotine dependence: Encourage cessation. 4. Obesity: Counseled on lifestyle changes. complicates management and expected recovery 5. GERD: On IV PPI DVT prophylaxis: Lovenox Code Visit OBSV E&M: 07129 Subsequent observation care L3
--- NOTE | 2018-11-01 12:47 | OP.ENDO_ITS ---
Patient Name: Joan Herrera Procedure Date: 11/01/2018 10:08 AM Date of : 1980 Age: 38 Procedure: Upper GI endoscopy Indications: Epigastric abdominal pain, Abdominal pain in the right upper quadrant, Nausea with vomiting Providers: Av Rodriguez MD Medicines: See the Anesthesia note for documentation of the administered medications Patient Profile: This is a 38 year old female. Refer to note in patient chart for documentation of history and physical. Complications: No immediate complications. Procedure: Pre-Anesthesia Assessment: - Prior to the procedure, a History and Physical was performed, and patient medications and allergies were reviewed. The patient's tolerance of previous anesthesia was also reviewed. The risks and benefits of the procedure and the sedation options and risks were discussed with the patient. All questions were answered, and informed consent was obtained. Prior Anticoagulants: The patient has taken no previous anticoagulant or antiplatelet agents. ASA Grade Assessment: II - A patient with mild systemic disease. After reviewing the risks and benefits, the patient was deemed in satisfactory condition to undergo the procedure. After obtaining informed consent, the endoscope was passed under direct vision. Throughout the procedure, the patient's blood pressure, pulse, and oxygen saturations were monitored continuously. The gastroscope was introduced through the mouth, and advanced to the second part of duodenum. The upper GI endoscopy was accomplished without difficulty. The patient tolerated the procedure well. Scope In: 10:18:38 AM Scope Out: 10:21:31 AM Total Procedure Duration Time 0 hours 2 minutes 53 seconds Findings: The examined esophagus was normal. Localized minimal inflammation characterized by erythema was found in the prepyloric region of the stomach. Biopsies were taken with a cold forceps for Helicobacter pylori testing. The examined duodenum was normal. No biopsies or other specimens were collected for this exam. Impression: - Normal esophagus. - Gastritis. Biopsied. - Normal examined duodenum. No specimens collected. Recommendation: - [facility]. - Clear liquid diet. - Continue present medications. - Await pathology results. - Repeat upper endoscopy at appointment to be scheduled to assess disease activity. - Return to liver clinic at appointment to be scheduled. Procedure Code(s): --- Professional --- 83934, Esophagogastroduodenoscopy, flexible, transoral; with biopsy, single or multiple Diagnosis Code(s): --- Professional --- K29.70, Gastritis, unspecified, without bleeding R10.13, Epigastric pain R10.11, Right upper quadrant pain R11.2, Nausea with vomiting, unspecified CPT copyright 2017 [employer]. All rights reserved. The codes documented in this report are preliminary and upon power barker review may be revised to meet current compliance requirements. MD Av Kapoor MD 11/01/2018 10:25:52 AM This report has been signed electronically. Number of Addenda: 0 Note Initiated On: 11/01/2018 10:08 AM
[2018-11-01] MEDS: Enoxaparin 40 MG/0.4 ML Syringe SC (15:23)
[2018-11-01] MEDS: Ondansetron 4 MG/2 ML Vial IV (20:23)
[2018-11-01] MEDS: oxyCODONE 5 MG Tablet PO (23:52)
[2018-11-01] MEDS: Temazepam 15 MG Capsule PO (23:53)
[2018-11-02 03:11] VITALS: BP 140/79; PULSE 83; RESP 18; TEMP 36.7; O2SAT 95
[2018-11-02] MEDS: HYDROmorphone 0.5 MG/0.5 ML SYRINGE IV ×4 (03:25→17:27)
[2018-11-02] MEDS: DiphenhydrAMINE 50 MG/ML Syringe 25 MG IV ×4 (03:25→18:27)
[2018-11-02 05:57] LABS: Absolute Lymphocyte Count 2.17 X10^3/ul (0.83-4.51); Absolute Neutrophil Count 4.5 X10^3/uL (2.0-7.7); Basophil# 0.02 X10^3/uL; Basophil% 0.3 % (0-1); Eosinophil# 0.26 X10^3/uL; Eosinophils% 3.4 % (0-5); Hematocrit 36.4 % (37-47); Hemoglobin 12.1 g/dl (12.0-15.0); Lymphocyte # 2.17 X10^3/ul (4.0); Lymphocyte % 28.6 % (19-41); Mean Corp Hgb Conc 33.2 g/gl (32-36); Mean Corpuscular Hgb 31.9 pg (27.0-32.0); Mean Platelet Vol. 9.7 fl (6.2-12.0); Monocyte# 0.49 X10^3/uL; Monocyte% 6.5 % (0-10); Neutrophil # 4.54 X10^3/uL (2.7-7.7); Neutrophil % 59.9 % (47-70); Platelet Count 213 K/mm3 (150-450); RBC Distribution Width CV 11.9 % (11.6-14.6); RBC Distribution Width SD 41.7 fl (35.1-43.9); Red Blood Count 3.79 M/mm3 (4.2-5.4); White Blood Count 7.6 K/mm3 (4.4-11.0)
[2018-11-02 06:07] LABS: POSITIVE COUNT NO; POSITIVE DIFFERENTIAL NO; POSITIVE MORPHOLOGY NO
[2018-11-02 06:21] LABS: Anion Gap 9 (5-15); BUN 6 mg/dL (7-18); BUN/Creat Ratio 10.2 RATIO (10-20); Chloride 108 mmol/L (98-107); Creatinine, Serum 0.59 mg/dL (0.55-1.02); EST Glomerular Filtration Rate 122 mL/min (>60); Est Glom Filt Rate - Afr Amer 147 mL/min (>60); Estimated Creatinine Clearance 112.74 ml/min; Glucose 69 mg/dL (74-106); Potassium 3.9 mmol/L (3.5-5.1); Sodium Level 139 mmol/L (136-145)
[2018-11-02 07:14] VITALS: O2SAT 93
[2018-11-02 09:11] VITALS: BP 147/86; PULSE 79; RESP 16; TEMP 36.6; O2SAT 97
[2018-11-02] MEDS: Cholestyramine/Sucrose 4 GM/PACKET PO (10:18)
[2018-11-02] MEDS: 0.9% Normal Saline 1,000 ML 125 ML IV ×2 (10:18→17:27)
[2018-11-02] MEDS: Enoxaparin 40 MG/0.4 ML Syringe SC (10:26)
[2018-11-02] MEDS: proMETHazine 25 MG/ML Syringe 6.25 MG IV ×2 (11:44→17:27)
--- NOTE | 2018-11-02 12:10 | PCM.PN.SRG ---
Patient Problems: Active and Suspected Problems RUQ pain (Acute) Subjective: Patient evaluated resting in bed this morning. She continues to note 10 out of 10 pain with associated nausea. EGD was unremarkable. HIDA scan did not demonstrate a bile leak. - Physical Exam General: Alert, Cooperative Abdomen: Soft, Guarding, Tender - RUQ Vital Signs Temp Pulse Resp BP Pulse Ox 97.9 F 79 16 147/86 H 97 11/02/18 09:11 11/02/18 09:11 11/02/18 09:11 11/02/18 09:11 11/02/18 09:11 Oxygen Delivery Method Room Air Weight: 180 lb 15.992 oz Body Mass Index (BMI) 30.9 Finger Stick Blood Glucose 93 Intake and Output for Last 24 Hours 10/31/18 11/01/18 11/02/18 23:59 23:59 23:59 Intake Total 3276 / 3276 1653 / 1653 1489 / 1489 Output Total 1050 / 1050 2525 / 2525 Balance 3276 / 3276 603 / 603 -1036 / -1036 Laboratory Tests Past 24 Hrs 11/02/18 11/02/18 05:30 05:30 WBC 7.6 RBC 3.79 L Hgb 12.1 Hct 36.4 L MCV 96.0 MCH 31.9 MCHC 33.2 RDW 11.9 RDW Differential 41.7 Plt Count 213 MPV 9.7 Immature Gran % (Auto) 1.300 H Neut % (Auto) 59.9 Lymph % (Auto) 28.6 [place] % (Auto) 6.5 Eos % (Auto) 3.4 Baso % (Auto) 0.3 Absolute Neuts (auto) 4.5 Absolute Lymphs (auto) 2.17 Total Counted Not Reportable Sodium 139 Potassium 3.9 Chloride 108 H Carbon Dioxide 22.0 Anion Gap 9 BUN 6 L Creatinine 0.59 Estim Creat Clear Calc 112.74 Est GFR (MDRD) Af Amer 147 Est GFR (MDRD) Non-Af 122 BUN/Creatinine Ratio 10.2 Glucose 69 L Calcium 8.0 L Medical Necessity - Tobacco Use Smoking Status: Current every day smoker - Patient smokes proximally 1/2 pack/day cigarette tobacco. Tobacco Use: Cigarettes Assessment/Plan All Active Problems RUQ pain (Acute) Abnormal stress test (Acute) Chest pain (Acute) Partial obstruction of small intestine (Acute) Abdominal pain (Acute) I have been consulted in conjunction with Dr. Rodriguez. Impression: Postprocedural pain. Moderate amount of RUQ pain H. Pylori negative. Patient continues to have pain which is not being controlled with pain medication. All testing thus far has been unremarkable Recommend recontacting Dr. Gonsales to discuss patient/? transfer We will continue to monitor Code Visit Inpatient E&M: 21386 Subs Hosp L1
--- NOTE | 2018-11-02 13:49 | DCINST_ITS ---
- Discharge Diagnoses Current Active Problems: Current Active and Chronic Problems RUQ pain (Acute) Hepatic adenoma (Chronic) GERD (gastroesophageal reflux disease) (Chronic) Tobacco use (Chronic) Obesity (BMI 30.0-34.9) (Chronic) You will use the following diet at home:: Regular Your food should be the consistency of: Regular Discharge Activity: Return to Normal Activity Weight Bearing Status: Weight bearing as tolerated Allergies/Adverse Reactions: Allergies latex Allergy (Mild, Verified 10/30/18 19:29) IRRIATION, OR IF SHE INGEST SHE VOMITS. hydromorphone HCl [From Dilaudid] Allergy (Verified 10/30/18 19:29) ITCHY LIKE FIREY ANTS ALL OVER HER SKIN Penicillins Allergy (Verified 10/30/18 19:29) Shortness of breath acetaminophen [From Darvocet-N] Adverse Reaction (Verified 10/30/18 19:29) Nausea meperidine [From Demerol] Adverse Reaction (Verified 10/30/18 19:29) Nausea propoxyphene [From Darvocet-N] Adverse Reaction (Verified 10/30/18 19:29) Nausea varenicline [From Chantix] Adverse Reaction (Verified 10/30/18 19:29) Other Medications to take at Discharge Cholestyramine (with Sugar) [Cholestyramine Packet] 4 gm PO DAILY 10/30/18 Omeprazole [Prilosec] 40 mg PO DAILY 10/30/18 Primary Care Physician: Yasmin Doctor,Out of [NON-STAFF] - Please follow up with your Primary Care Physician in: 1-2 weeks Test Results: Test results from this visit will be discussed in further detail at your follow- up appointment, if applicable. Proposed Discharge Date: 11/02/18
--- NOTE | 2018-11-02 13:50 | PCM.DC.SUM ---
Discharge Date and Diagnosis - Problem List Patient Problems: Active and Suspected Problems RUQ pain (Acute) Date of Admission: 10/30/18 Date of Discharge: 11/02/18 - Primary Discharge Diagnosis Active and Suspected Problems RUQ pain (Acute) - Secondary Discharge Diagnosis Chronic Problems Hepatic adenoma (Chronic) GERD (gastroesophageal reflux disease) (Chronic) Tobacco use (Chronic) Obesity (BMI 30.0-34.9) (Chronic) Status post appendectomy (Chronic) Status post hysterectomy (Chronic) Status post cholecystectomy (Chronic) Hospital Course and Treatment Imaging Results: Diagnostic Data Abdomen/Pelvis CT 10/30/18 21:15 IMPRESSION: Abnormal liver consistent with recently treated lesion in the right lobe. No dilated loops of bowel. No hydronephrosis. No fluid collection. Electronically Signed: Romaine Chand MD at 22:24 EST , Service support , Hepatobiliary Scan Nuclear Medicine 11/01/18 10:55 IMPRESSION: 1. Nonvisualization of the gallbladder is consistent with prior cholecystectomy. 2. There is no scintigraphic evidence of bile leak. 3. The prominent sized common bile duct may be further investigated with abdominal ultrasound if clinically indicated. Electronically Signed: Juan Baumann DO at 12:54 EST Tel , Service support , Consultations 10/31/18 00:26 Consult: Onc/Wound/director export Routine Comment: general surgery- Dr Rodriguez Operations: None Procedures: - - EGD Summary of Care Provided: The patient is a 38 year old F with a PMH of GERD, obesity, tobacco abuse and incidental liver lesion noted on CT with microwave ablation of the liver lesion at [facility] (by Dr Larry Gnosales) in addition to left upper extremity adenoma removal. She was admitted with a complaint of abdominal pain. Pain was in the right upper quadrant, radiated to the left shoulder, dull with episodic sharp nature. CT abdomen pelvis with contrast showed 5.8 x 3.1cm diminshed density in the right lobe consistent with with recently treated lesion of the right lobe without abscess or fluid collection. She was admitted and managed for right upper quadrant pain of unknown etiology. General surgery was consulted. EGD showed normal esophagus, gastritis, which was biopsied, and normal duodenum. She had a HIDA scan which was also negative for any biliary leak. Pain still persisted, and it was thought to be due to related to the recent surgery. Decision was therefore made to transfer patient to [facility] to the service of Dr Gonsales who performed the surgery for further evaluation. Patient seen and examined. She still complained of abdominal pain and rated it at 7/10. She denies fever, chills, cough, chest pain, diarrhea or vomiting. REview of systems otherwise negative. o/e: Vital Signs Height 5 ft 4.17 in Weight: 180 lb 15.992 oz Weight in Pounds 181.0 lbs Pulse Ox 97 Temperature 97.9 F Pulse Rate 79 Respiratory Rate 16 Blood Pressure [BP] 121/75 Blood Pressure 147/86 Blood Pressure Position [BP] Semi-Fowlers Blood Pressure Position Semi-Fowlers [] General: Alert, Oriented x3, Cooperative, No apparent distress HEENT: Atraumatic, PERRLA, EOMI, Normocephalic Oral: Moist Mucosa Neck: Supple, No JVD, Negative Carotid Bruits Lungs: Clear to auscultation, Normal air movement Cardiovascular: Regular rate, Regular Rhythm, Normal S1, Normal S2, No murmurs Abdomen: Bowel Sounds Present, Soft, Non-Distended, No Hepato-splenomegaly, - - Mild right upper quadrant tenderness with no guarding or rebound tenderness. Extremities: No clubbing, No cyanosis, No edema, Capillary Refill Less than 3 Seconds Skin: No rashes, No breakdown Musculoskeletal: No Tenderness to Palpation of Joints or Extremities Lymphatic: No Cervical, Supraclavicular, or Inguinal Adenopathy Neurological: Cranial nerves II-XII grossly intact, Neuro grossly intact, Motor Exam 5/5 strength throughout Psych/Mental Status: Normal Affect, Appropriate, Alert and oriented to time, place, person, mood and affect Plan as stated is to transfer patient to [facility]. Patient Problems: Active and Suspected Problems RUQ pain (Acute) - Physical Exam Vital Signs Temp Pulse Resp BP Pulse Ox 97.9 F 79 16 147/86 H 97 11/02/18 09:11 11/02/18 09:11 11/02/18 09:11 11/02/18 09:11 11/02/18 09:11 Oxygen Delivery Method Room Air Weight: 180 lb 15.992 oz Body Mass Index (BMI) 30.9 Finger Stick Blood Glucose 93 Intake and Output for Last 24 Hours 10/31/18 11/01/18 11/02/18 23:59 23:59 23:59 Intake Total 3276 / 3276 1653 / 1653 1489 / 1489 Output Total 1050 / 1050 2525 / 2525 Balance 3276 / 3276 603 / 603 -1036 / -1036 Laboratory Tests Past 24 Hrs 11/02/18 11/02/18 05:30 05:30 WBC 7.6 RBC 3.79 L Hgb 12.1 Hct 36.4 L MCV 96.0 MCH 31.9 MCHC 33.2 RDW 11.9 RDW Differential 41.7 Plt Count 213 MPV 9.7 Immature Gran % (Auto) 1.300 H Neut % (Auto) 59.9 Lymph % (Auto) 28.6 [place] % (Auto) 6.5 Eos % (Auto) 3.4 Baso % (Auto) 0.3 Absolute Neuts (auto) 4.5 Absolute Lymphs (auto) 2.17 Total Counted Not Reportable Sodium 139 Potassium 3.9 Chloride 108 H Carbon Dioxide 22.0 Anion Gap 9 BUN 6 L Creatinine 0.59 Estim Creat Clear Calc 112.74 Est GFR (MDRD) Af Amer 147 Est GFR (MDRD) Non-Af 122 BUN/Creatinine Ratio 10.2 Glucose 69 L Calcium 8.0 L Discharge Diet: No Restrictions Discharge Activity: Return to Normal Activity Weight Bearing Status: Weight bearing as tolerated Home Medications: Medications to take at Discharge Cholestyramine (with Sugar) [Cholestyramine Packet] 4 gm PO DAILY 10/30/18 Omeprazole [Prilosec] 40 mg PO DAILY 10/30/18 Primary Care Physician: [facility] Doctor,Out of [NON-STAFF] - Please follow up with your Primary Care Physician in: 1-2 weeks Patient Instructions: Abdominal Pain Disposition: Home Minutes spent on discharge:: 40 Patient Condition:: Stable Medical Necessity - Tobacco Use Smoking Status: Current every day smoker - Patient smokes proximally 1/2 pack/day cigarette tobacco. Tobacco Use: Cigarettes Meaningful Use Info Meaningful Use Diagnoses (Choose all that apply): None applicable Code Visit Inpatient E&M: 97183 Disch Hosp
--- NOTE | 2018-11-02 14:14 | DS.PCM_ITS ---
Discharge Date and Diagnosis - Problem List Patient Problems: Active and Suspected Problems RUQ pain (Acute) Date of Admission: 10/30/18 Date of Discharge: 11/02/18 - Primary Discharge Diagnosis Active and Suspected Problems RUQ pain (Acute) - Secondary Discharge Diagnosis Chronic Problems Hepatic adenoma (Chronic) GERD (gastroesophageal reflux disease) (Chronic) Tobacco use (Chronic) Obesity (BMI 30.0-34.9) (Chronic) Status post appendectomy (Chronic) Status post hysterectomy (Chronic) Status post cholecystectomy (Chronic) Hospital Course and Treatment Imaging Results: Diagnostic Data Abdomen/Pelvis CT 10/30/18 21:15 IMPRESSION: Abnormal liver consistent with recently treated lesion in the right lobe. No dilated loops of bowel. No hydronephrosis. No fluid collection. Electronically Signed: Romaine Chand MD at 22:24 EST , Service support , Hepatobiliary Scan Nuclear Medicine 11/01/18 10:55 IMPRESSION: 1. Nonvisualization of the gallbladder is consistent with prior cholecystectomy. 2. There is no scintigraphic evidence of bile leak. 3. The prominent sized common bile duct may be further investigated with abdominal ultrasound if clinically indicated. Electronically Signed: Juan Baumann DO at 12:54 EST Tel , Service support , Consultations 10/31/18 00:26 Consult: Onc/Wound/sales person Routine Comment: general surgery- Dr oRdriguez Operations: None Procedures: - - EGD Summary of Care Provided: The patient is a 38 year old F with a PMH of GERD, obesity, tobacco abuse and incidental liver lesion noted on CT with microwave ablation of the liver lesion at [facility] (by Dr Larry Gonsales) in addition to left upper extremity adenoma removal. She was admitted with a complaint of abdominal pain. Pain was in the right upper quadrant, radiated to the left shoulder, dull with episodic sharp nature. CT abdomen pelvis with contrast showed 5.8 x 3.1cm diminshed density in the right lobe consistent with with recently treated lesion of the right lobe without abscess or fluid collection. She was admitted and managed for right upper quadrant pain of unknown etiology. General surgery was consulted. EGD showed normal esophagus, gastritis, which was biopsied, and normal duodenum. She had a HIDA scan which was also negative for any biliary leak. Pain still persisted, and it was thought to be due to related to the recent surgery. Decision was therefore made to transfer patient to [facility] to the service of Dr Gonsales who performed the surgery for further evaluation. Patient seen and examined. She still complained of abdominal pain and rated it at 7/10. She denies fever, chills, cough, chest pain, diarrhea or vomiting. REview of systems otherwise negative. o/e: Vital Signs Height 5 ft 4.17 in Weight: 180 lb 15.992 oz Weight in Pounds 181.0 lbs Pulse Ox 97 Temperature 97.9 F Pulse Rate 79 Respiratory Rate 16 Blood Pressure [BP] 121/75 Blood Pressure 147/86 Blood Pressure Position [BP] Semi-Fowlers Blood Pressure Position Semi-Fowlers [] General: Alert, Oriented x3, Cooperative, No apparent distress HEENT: Atraumatic, PERRLA, EOMI, Normocephalic Oral: Moist Mucosa Neck: Supple, No JVD, Negative Carotid Bruits Lungs: Clear to auscultation, Normal air movement Cardiovascular: Regular rate, Regular Rhythm, Normal S1, Normal S2, No murmurs Abdomen: Bowel Sounds Present, Soft, Non-Distended, No Hepato-splenomegaly, - - Mild right upper quadrant tenderness with no guarding or rebound tenderness. Extremities: No clubbing, No cyanosis, No edema, Capillary Refill Less than 3 Seconds Skin: No rashes, No breakdown Musculoskeletal: No Tenderness to Palpation of Joints or Extremities Lymphatic: No Cervical, Supraclavicular, or Inguinal Adenopathy Neurological: Cranial nerves II-XII grossly intact, Neuro grossly intact, Motor Exam 5/5 strength throughout Psych/Mental Status: Normal Affect, Appropriate, Alert and oriented to time, place, person, mood and affect Plan as stated is to transfer patient to [facility]. Patient Problems: Active and Suspected Problems RUQ pain (Acute) - Physical Exam Vital Signs Temp Pulse Resp BP Pulse Ox 97.9 F 79 16 147/86 H 97 11/02/18 09:11 11/02/18 09:11 11/02/18 09:11 11/02/18 09:11 11/02/18 09:11 Oxygen Delivery Method Room Air Weight: 180 lb 15.992 oz Body Mass Index (BMI) 30.9 Finger Stick Blood Glucose 93 Intake and Output for Last 24 Hours 10/31/18 11/01/18 11/02/18 23:59 23:59 23:59 Intake Total 3276 / 3276 1653 / 1653 1489 / 1489 Output Total 1050 / 1050 2525 / 2525 Balance 3276 / 3276 603 / 603 -1036 / -1036 Laboratory Tests Past 24 Hrs 11/02/18 11/02/18 05:30 05:30 WBC 7.6 RBC 3.79 L Hgb 12.1 Hct 36.4 L MCV 96.0 MCH 31.9 MCHC 33.2 RDW 11.9 RDW Differential 41.7 Plt Count 213 MPV 9.7 Immature Gran % (Auto) 1.300 H Neut % (Auto) 59.9 Lymph % (Auto) 28.6 [place] % (Auto) 6.5 Eos % (Auto) 3.4 Baso % (Auto) 0.3 Absolute Neuts (auto) 4.5 Absolute Lymphs (auto) 2.17 Total Counted Not Reportable Sodium 139 Potassium 3.9 Chloride 108 H Carbon Dioxide 22.0 Anion Gap 9 BUN 6 L Creatinine 0.59 Estim Creat Clear Calc 112.74 Est GFR (MDRD) Af Amer 147 Est GFR (MDRD) Non-Af 122 BUN/Creatinine Ratio 10.2 Glucose 69 L Calcium 8.0 L Discharge Diet: No Restrictions Discharge Activity: Return to Normal Activity Weight Bearing Status: Weight bearing as tolerated Home Medications: Medications to take at Discharge Cholestyramine (with Sugar) [Cholestyramine Packet] 4 gm PO DAILY 10/30/18 Omeprazole [Prilosec] 40 mg PO DAILY 10/30/18 Primary Care Physician: [facility] Doctor,Out of [NON-STAFF] - Please follow up with your Primary Care Physician in: 1-2 weeks Patient Instructions: Abdominal Pain Disposition: Home Minutes spent on discharge:: 40 Patient Condition:: Stable Medical Necessity - Tobacco Use Smoking Status: Current every day smoker - Patient smokes proximally 1/2 pack/day cigarette tobacco. Tobacco Use: Cigarettes Meaningful Use Info Meaningful Use Diagnoses (Choose all that apply): None applicable Code Visit Inpatient E&M: 97000 Disch Hosp
[2018-11-02] MEDS: 0.9% NaCl Peripheral Flush Adult/Peds IV ×3 (14:18→18:28)
[2018-11-02 15:11] VITALS: BP 145/91; PULSE 85; RESP 16; TEMP 37; O2SAT 98
[2018-11-02] MEDS: Ondansetron 4 MG/2 ML Vial IV (15:33)
--- NOTE | 2018-11-02 18:52 | NURSING ---
primary rn informed got bed at [facility], report number [phone]
--- NOTE | 2018-11-02 18:54 | NURSING ---
received bed 8[address] [facility],
--- NOTE | 2018-11-02 18:57 | NURSING ---
attempted to give report- female at listed number indicated nurses are in report, number given to ms3 and female states the nurses will all back when out of report.
--- OUTSIDE RECORDS SUMMARY | 2019-01-02 05:31 | XMS RPT_ITS ---
:1980 Author Organization [place] Support Name Relationship Address Phone ARTIFLEX Unavailable [address] + [address] [place] [address] STORMY, JOE Unavailable [address] + [place] [address] JAVIER AIDE Unavailable [address] + [place] [address] ARTIFLEX Unavailable [address] + [address] [place] [address] HEINEY, JOE Unavailable [address] + [place] [address] JAVIER AIDE Unavailable [address] + [place] [address] ARTIFLEX Unavailable [address] + [address] [place] [address] JAIDENINEY, JOE Unavailable [address] + [place] [address] JAVIER AIDE Unavailable [address] + [place] [address] ARTIFLEX Unavailable [address] + [address] [place] [address] HEINEY, JOE Unavailable [address] + [place] [address] JAVIER AIDE Unavailable [address] + [place] [address] ARTIFLEX Unavailable [address] + [address] [place] [address] BABSY, JOE Unavailable [address] + [place] [address] JAVIER, AIDE Unavailable [address] + [place] [address] ARTIFLEX Unavailable [address] + [address] [place] [address] HEINEY, JOE Unavailable [address] + [place] [address] JAVIER, AIDE Unavailable [address] + [place] [address] ARTIFLEX Unavailable [address] + [address] [place] [address] HEINEY, JOE Unavailable [address] + [place] [address] JAVIER, AIDE Unavailable [address] + [place] [address] Heiney, Joe Unavailable Unavailable + Javier, Aide Unavailable Unavailable + Heiney, Joe Unavailable Unavailable + Javier, Aide Unavailable Unavailable + Heiney, Joe Unavailable Unavailable + Javier, Aide Unavailable Unavailable + Heiney, Joe Unavailable Unavailable + Javier, Aide Unavailable Unavailable + Heiney, Joe Unavailable Unavailable + Javier, Aide Unavailable Unavailable + Heiney, Joe Unavailable Unavailable + Javier, Aide Unavailable Unavailable + Heiney, Joe Unavailable Unavailable + Javier, Aide Unavailable Unavailable + Heiney, Joe Unavailable Unavailable + Javier, Aide Unavailable Unavailable + Heiney, Joe Unavailable Unavailable + Javier, Aide Unavailable Unavailable + HEINEY, JOE Unavailable [address] + [place] [address] JAVIER, AIDE Unavailable [address] + [place] [address] UE Unavailable Unavailable Unavailable HEINEY, JOE Unavailable [address] + [place] [address] JAVIER, AIDE Unavailable [address] + [place] [address] UE Unavailable Unavailable Unavailable HEINEY, JOE Unavailable [address] + [place] [address] JAVIER, AIDE Unavailable [address] + [place] [address] UE Unavailable Unavailable Unavailable HEINEY, JOE Unavailable [address] + [place] [address] JAVIER, AIDE Unavailable [address] + [place] [address] UE Unavailable Unavailable Unavailable Care Team Providers Name Role Phone Dionicio, Arleen Attending Unavailable Dionicio, Arleen Referring Unavailable Dionicio, Arleen Primary Care Unavailable Dionicio, Arleen Attending Unavailable Dionicio, Arleen Referring Unavailable Dionicio, Arleen Primary Care Unavailable Dionicio, Arleen Referring Unavailable Dionicio, Arleen Primary Care Unavailable Kiara Nassar Attending Unavailable Dionicio, Arleen Referring Unavailable Dionicio, Arleen Primary Care Unavailable Delfin Camacho Attending Unavailable Delfin Camacho Attending Unavailable Dionicio, Arleen Referring Unavailable Dionicio, Arleen Primary Care Unavailable Ahmed, Shameem Attending Unavailable Dionicio, Arleen Referring Unavailable Dionicio, Arleen Primary Care Unavailable Ahmed, Shameem Attending Unavailable Dionicio, Arleen Referring Unavailable Dionicio, Arleen Primary Care Unavailable Dionicio, Arleen Attending Unavailable Dionicio, Arleen Referring Unavailable Dionicio, Arleen Primary Care Unavailable Ahmed, Shameem Attending Unavailable Dionicio, Arleen Referring Unavailable Dionicio, Arleen Primary Care Unavailable Primay Care Physicia, No Primary Care Unavailable Cori Rudolph Attending Unavailable Primay Care Physicia, No Primary Care Unavailable Vishal Matson Attending Unavailable Primay Care Physicia, No Primary Care Unavailable Kathleen Negron Attending Unavailable Primay Care Physicia, No Primary Care Unavailable Cori Rudolph Attending Unavailable Dionicio, Arleen Primary Care Unavailable White, Sylvia Admitting Unavailable Augusta, Av Consulting Unavailable Koram, Sepideh Brigette Attending Unavailable White, Sylvia Admitting Unavailable White, Sylvia Attending Unavailable Dionicio, Arleen Primary Care Unavailable White, Sylvia Consulting Unavailable White, Sylvia Admitting Unavailable Montemayor PA-C, Nevin Attending Unavailable Dionicio, Arleen Primary Care Unavailable Jennifer, Av Consulting Unavailable Koram, Sepideh Brigette Consulting Unavailable White, Sylvia Admitting Unavailable Koram, Sepideh Brigette Attending Unavailable Dionicio, Arleen Primary Care Unavailable Augusta, Av Consulting Unavailable Koram, Sepideh Brigette Consulting Unavailable White, Sylvia Admitting Unavailable Koram, Sepideh Brigette Attending Unavailable Dionicio, Arleen Primary Care Unavailable Jennifer, Av Consulting Unavailable Koram, Sepideh Brigette Consulting Unavailable White, Sylvia Admitting Unavailable Monteamyor PA-C, Nevin Attending Unavailable Dionicio, Arleen Primary Care Unavailable Augusta, Av Consulting Unavailable Koram, Sepideh Brigette Consulting Unavailable White, Sylvia Admitting Unavailable Koram, Sepideh Brigette Attending Unavailable Dionicio, Arleen Primary Care Unavailable Jennifer, Av Consulting Unavailable Koram, Sepideh Brigette Consulting Unavailable MARCELL PEREIRA Attending Unavailable DELFIN CAMACHO Referring Unavailable ALI, NOAMAN Attending Unavailable AHMARCELL MENAAMMED Referring Unavailable ALI, NOAMAN Referring Unavailable ALI, NOAMAN Referring Unavailable ALI, NOAMAN Admitting Unavailable ALI, NOAMAN Attending Unavailable ALI, NOAMAN Referring Unavailable ALI, NOAMAN Admitting Unavailable ALI, NOAMAN Attending Unavailable ALI, NOAMAN S Admitting Unavailable ALI, NOAMAN S Attending Unavailable DIONICIO, ARLEEN Y Primary Care Unavailable ALI, NOAMAN S Referring Unavailable DIONICIO, ARLEEN Y Primary Care Unavailable ALI, NOAMAN S Admitting Unavailable ALI, NOAMAN S Attending Unavailable DIONICIO, ARLEEN Y Primary Care Unavailable ALI, NOAMAN S Referring Unavailable ALI, NOAMAN S Referring Unavailable DIONICIO, ARLEEN Y Primary Care Unavailable ALI, NOAMAN S Attending Unavailable AHMEDJOSEEETyler Scott Referring Unavailable DIONICIO, ARLEEN Y Primary Care Unavailable PROBLEMS PROBLEMS DATE TYPE CONDITION / CODE ATTENDING STATUS SOURCE 11/02/2018 Admitting Unknown / ALI, NOAMAN S Active [facility] diagnosis UNK(Unknown) [facility] Repository 10/19/2018 Active Other acute ALI, NOAMAN Active [facility] Other / G89.18(ICD-10) [place] Repository 10/12/2018 Active Encounter for other NA Active [facility] Other examination / [place] Z01.818(ICD-10) Repository 09/05/2018 Active Benign neoplasm of JOSY GONSALES Active [facility] Other D13.4(ICD-10) [place] Repository 08/07/2018 Admitting Abnormal findings on Marcell Pereira Active [facility] Diagnosis dx imaging of liver System and biliary tract / Repository R93.2(ICD-10) 08/07/2018 Admitting Shortness of breath Marcell Pereira Active [facility] Diagnosis / R06.02(ICD-10) System Repository 08/02/2018 Admitting Vitamin D Dionicio, Active [facility] Diagnosis deficiency, Arleen System unspecified / Repository E55.9(ICD-10) 07/19/2018 Admitting Liver disease, Janice, Active [facility] Diagnosis unspecified / [place] System K76.9(ICD-10) Repository 06/20/2018 Admitting Fatty (change of) Dionicio, Active [facility] Diagnosis liver, not elsewhere Arleen System classified / Repository K76.0(ICD-10) 06/17/2018 Admitting Acquired absence of Domers, 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 specified [facility] System parts of digestive Repository tract / Z90.49(ICD-10) 06/17/2018 Admitting Right upper quadrant Domers, Active [facility] Diagnosis pain / [facility] R10.11(ICD-10) Repository 06/17/2018 Admitting Nausea with Domers, Active [facility] Diagnosis vomiting, [facility] unspecified / Repository R11.2(ICD-10) 06/17/2018 Admitting Gastro-esophageal Domers, Active [facility] Diagnosis reflux disease [facility] without esophagitis Repository / K21.9(ICD-10) 06/17/2018 Admitting Anxiety disorder, Domers, Active [facility] Diagnosis unspecified / [facility] F41.9(ICD-10) Repository 06/17/2018 Admitting Nicotine dependence, Domers, Active [facility] Diagnosis cigarettes, [facility] uncomplicated / Repository F17.210(ICD-10) 06/17/2018 Admitting Allergy status to Domers, Active [facility] Diagnosis narcotic agent [facility] status / Repository Z88.5(ICD-10) 06/17/2018 Admitting Allergy status to Domers, Active [facility] Diagnosis penicillin / [facility] Z88.0(ICD-10) Repository 06/17/2018 Admitting Allergy status to Domers, Active [facility] Diagnosis oth drug/meds/biol [facility] subst status / Repository Z88.8(ICD-10) 06/17/2018 Admitting Latex allergy status Domers, Active [facility] Diagnosis / Z91.040(ICD-10) [facility] Repository 06/17/2018 Admitting Acquired absence of Domers, 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 / Repository Z90.710(ICD-10) PROCEDURES PROCEDURES No Procedure Records FoundRESULTS RESULTS CNDS Observed: 11/04/2018 Status: COMPLETED Source: [facility] 4:12 PM CLINIC OTHER CAMPUS REPOSITORY HNO ID: [id number] Author: Tony Stokes Service: General Surgery Author Type: Resident Type: Discharge Summaries Filed: 11/04/2018 4:13 PM Note Text: DISCHARGE SUMMARY PATIENT NAME: Nelson Herrera Code Status: Full Code Highest Readmission Risk Score: 15 The 30 day readmissions risk score is derived from an internally validated risk model which evaluates patient level characteristics, utilization history, medication orders and lab results up until the day of discharge. Patients with a score of 40 or above are considered highest risk for readmission. Specific patient level drivers will be listed at the bottom of the summary. Admission Information Admission Information ADMIT DATE: 11/02/2018 DISCHARGE DATE: 11/04/18 MY DOCTORS AND MEDICAL TEAM: My Main Hospital Doctor: Josy Gonsales Primary Care Provider: Arleen Greenberg MD My Medical Team Members: Treatment Team: Attending Provider: Josy Gonsales MY CONDITION AT DISCHARGE: Stable REASON I WAS IN THE HOSPITAL: pain control SUMMARY OF WHAT HAPPENED WHILE I WAS IN THE HOSPITAL: Pt had a recent liver ablation and was admitted for pain control. The patient was able to have her pain controled with PO pain medicine and was discharged in a stable condition. OTHER PROBLEMS/DIAGNOSIS: Active Problems: Postoperative pain Obesity, Class I, BMI 30-34.9 Resolved Problems: * No resolved hospital problems. * OPERATIONS PERFORMED WHILE IN THE HOSPITAL: None IMPORTANT TEST/PROCEDURES: No procedures performed TEST RESULTS NOT AVAILABLE AT THIS TIME: No pending results Discharge Disposition Discharge Disposition: Home With Self Care Activity When You Leave the Hospital Go home and rest. Resume normal activity after: In am For Pain When You Leave the Hospital Use acetaminophen (Tylenol) as recommended on the bottle Use ibuprofen (Motrin, Advil) as recommended on the bottle Use the dispensed medication (see prescription) Call Your Doctor If There is severe pain at the operative site You have persistent nausea/vomiting over 24 hours You have persistent or heavy bleeding You have redness, swelling, pus or drainage from the wound Follow Up Appointments Follow-Up Appointment When: In 1 week Patient/Parents to call for appointment?: Yes Vielkaheena Gonsales [phone] [address] [facility] [address] [facility] [address] PCP Requested Referral Additional Provider to Provider Information: Active Problems: Postoperative pain Obesity, Class I, BMI 30-34.9 Resolved Problems: * No resolved hospital problems. * FOLLOW-UP APPOINTMENTS ALREADY SCHEDULED WITH A [facility] PROVIDER: No future appointments. ALLERGIES Allergen Reactions - Penicillins Hives, Anaphylaxis, Shortness of Breath - Chantix [Vareniclin* Other: See Comments Mood changes (irritability), flu like symptoms, body aching - Demerol [Meperidine* Other: See Comments Nausea - Latex Other: See Comments my skin starts pealing off DISCHARGE MEDICATION: Current Discharge Medication List START taking these medications promethazine (PHENERGAN) 25 mg Take 25 mg by mouth every 6 hours as needed. Qty: 25 tablet Refills: 0 oxyCODONE IR (ROXICODONE) 5-10 mg Take 5-10 mg by mouth every 6 hours as needed. Earliest Fill Date: 11/04/18 Qty: 40 tablet Refills: 0 Associated Diagnoses:Postoperative pain CONTINUE these medications which have NOT CHANGED Omeprazole 40 mg Take 40 mg by mouth once daily. Refills: 0 Associated Diagnoses:Abnormal findings on diagnostic imaging of liver; Diarrhea, unspecified type Cholecalciferol (Vitamin D3) 1,000 Units Take 1,000 Units by mouth once daily. Associated Diagnoses:Abnormal findings on diagnostic imaging of liver; Diarrhea, unspecified type cholestyramine (QUESTRAN) 4 gram packet Take by mouth as directed. Qty: 30 Packet Refills: 2 Associated Diagnoses:Abnormal findings on diagnostic imaging of liver; Diarrhea, unspecified type The patient's risk for 30-day readmission is determined using the following contributing factors: Pt variables contributing to increased readmission risk: 16 Active Medication Orders 11 Most Recent BUN Result 8.5 First Resulted Calcium During Admission 1 Insurance - Private Coverage 1 Discharge Disposition - Home 1 Active Anticoagulant 1 Number of Hospitalizations (12 mos.) TIME OF CARE: Discharge Management: I personally spent greater than 30 minutes involved in the discharge management of this patient. SIGNATURE: Tony Stokes MD PAGER/CONTACT #: DATE: November 04, 2018 TIME: 4:12 PM PROGRESS Observed: 11/04/2018 Status: COMPLETED Source: [facility] 6:49 AM CLINIC OTHER CAMPUS REPOSITORY HNO ID: [id number] Author: Tony (Kiran Stokes Service: General Surgery Author Type: Resident Type: Progress Notes Filed: 11/04/2018 6:52 AM Note Text: Attestation signed by Cooper Bridges at 11/05/2018 12:42 PM I reviewed the resident's note and agree. Cooper Bridges MD, [facility], [facility] PROGRESS NOTE Elective Surgery Progress Note Elective General Surgery Service Pager: For questions or concerns Mon-Fri 6a-5p please page [phone]. After 5pm and on Weekends and Holidays, please page [phone] if in ICU or [phone] if on RNF. SERVICE DATE: 11/04/2018 SERVICE TIME: 6:50 AM SUBJECTIVE: Subjective Subjective: This is a 38 year old female Pt feels okay, pain improving. Still using dilaudid. Bowel movement No Flatus Yes Diet DIET REGULAR Ambulating Yes Nausea No Emesis No Current Facility-Administered Medications: promethazine 25 mg tab(s) (PHENERGAN) 25 mg ORAL q 6 H PRN oxyCODONE IR 5-10 mg tab(s) (ROXICODONE) 5-10 mg ORAL q 3 H PRN ibuprofen 600 mg tab(s) (MOTRIN) 600 mg ORAL TID HYDROmorphone HCl 1 mg injection (DILAUDID) 1 mg INTRAVENOUS q 4 H PRN diphenhydrAMINE 50 mg injection (BENADRYL) 50 mg INTRAVENOUS q 6 H PRN cholestyramine 4 g packet (QUESTRAN) 4 g ORAL DAILY cholecalciferol 1,000 Units tab(s) (VITAMIN D3) 1,000 Units ORAL DAILY enoxaparin 40 mg injection (LOVENOX) 40 mg SUBCUTANEOUS DAILY NaCl 0.9% 3-5 mL 3-5 mL INTRAVENOUS q 12 H dextrose 5% in NaCl 0.9% iv infusion 75 mL/hr INTRAVENOUS CONTINUOUS ondansetron 4 mg tab(s) (ZOFRAN) 4 mg ORAL q 6 H PRN Or ondansetron (PF) 4 mg injection (ZOFRAN) 4 mg INTRAVENOUS q 6 H PRN docusate sodium 100 mg cap(s) (COLACE) 100 mg ORAL BID PRN acetaminophen 975 mg tab(s) (TYLENOL) 975 mg ORAL QID nicotine 21 mg/24 hr 1 Patch (NICODERM) 1 Patch TRANSDERMAL DAILY And nicotine -- REMOVE patch OTHER DAILY And nicotine - verify patch OTHER q 8 H prochlorperazine 5 mg injection (COMPAZINE) 5 mg INTRAVENOUS q [address] 40 mg tab(s) (PROTONIX) 40 mg ORAL DAILY (6 AM) OBJECTIVE: Objective PHYSICAL EXAM: VITAL SIGNS BP 123/77 Pulse 89 Temp (Src) 97.3 (Temporal Artery) Resp 18 Ht 5' 4 (1.63m) Wt 180 lb (81.6kg) SpO2 97% BMI 30.88 kg/(m2). Temp (24hrs), Av.7 ?C (98.1 ?F), Min:36.3 ?C (97.3 ?F), Max:37 ?C (98.6 ?F) Date 11/03/18 07 - 11/04/18 0659 11/04/18 07 - 11/05/18 0659 Shift 3229-1983 6238-1497 6396-4177 24 Hour Total 4598-6086 3195-9447 5309-4732 24 Hour Total I N T A K E PO 200 240 440 PO 200 240 440 Shift Total 200 240 440 O U T P U T Urine Urine Not Saved. 1 x 2 x 3 x 6 x Shift Total Weight (kg) 81.6 81.6 81.6 81.6 81.6 81.6 81.6 81.6 GENERAL: Alert, no distress, cooperative SKIN: Skin color, texture, turgor normal. No rashes or lesions. LUNGS: Unlabored breathing on O2 Therapy: Room Air on sating at SpO2: 97 % CARDIAC: rate and rhythm as above, ABDOMEN: Benign, Soft, No masses, hepatosplenomegaly, No lymphadenopathy and Mild tenderness in RUQ EXTREMITIES: ROM of all joint grossly normal: strength grossly normal bilaterally. No deformities noted. WOUND: No abdominal wound issues DATA: Diagnostic tests reviewed for today's visit: No results for input(s): BODSITE, CTYPE, PH, PCO2, PO2, BE, HCO3, CO2CT, O2HB, COHB, MHGB, TEMP, PHTC, PCO2T, PO2T, O2AD in the last 72 hours. Recent Labs 11/04/18 0353 11/03/18 0345 CREAT 0.77 0.69 BUN 11 8 NA 138 137 K 4.2 3.3* CHLOR 108* 106 CO2 21 24 ANION 13 10 GLUC 87 132* CA 8.1* 8.5 ALB 3.1* 3.2* AST 45* 17 ALT 54 30 ALKPHOS 72 61 TBILI 0.2 0.4 WBC 8.94 8.72 HB 11.7 11.8 HCT 35.3 35.1 PLT 232 228 ASSESSMENT AND PLAN: Active Hospital Problems Diagnosis Date Noted - Postoperative pain 11/02/2018 Assessment/Plan ? 38 year old female RUQ abdominal pain s/p lap liver ablation 10/19/18 ? - Reg diet - Attempt to wean dilaudid to PO pain meds - SCDs, Lovenox - Ambulate - IS SIGNATURE: Tony Stokes MD PATIENT NAME: Nelson Herrera DATE: November 04, 2018 TIME: 6:50 AM PAGER: [phone] MDRD GFR Collected: 11/04/2018 Status: F Source: [facility] 3:53 AM HEALTH SYSTEM REPOSITORY TYPE CODE TESTS RESULT OUT OF RANGE REFERENCE UNITS LAB GFRFN(LOINC >60mL/min/1.73m ) 2 eGFR >60 Result Comment: If the patient is , multiply the result by 1.210. Performed By: #### GFR #### [facility] [address] [place], [place] [address] HEMOGRAM Collected: 11/04/2018 Status: F Source: [facility] 3:53 AM HEALTH SYSTEM REPOSITORY TYPE CODE TESTS RESULT OUT OF REFERENCE UNITS RANGE LAB WBC(LOINC) 3.98-10.04 thou/cmm WBC 8.94 LAB RBC(LOINC) 3.93-5.22 mil/cmm Low RBC 3.66 LAB HGB(LOINC) 11.2-15.7 g/dL Hgb 11.7 LAB HCT(LOINC) 34.1-44.9 % Hct 35.3 LAB MCV(LOINC) 79.4-94.8 fl High MCV 96.4 LAB MCH(LOINC) 25.6-32.2 pg MCH 32.0 LAB MCHC(LOINC) 31.6-34.8 % MCHC 33.1 LAB RDW(LOINC) 11.7-14.4 % RDW 11.8 LAB RDWSD(LOINC 36.4-46.3 fl ) RDW SD 41.5 LAB PLT(LOINC) 182-369 thou/cmm Platelet 232 LAB MPV(LOINC) 9.4-12.3 fl MPV 10.7 Performed By: #### CBC1 #### [facility] [address] [place] [id number] COMPREHENSIVE PANEL Collected: 11/04/2018 Status: F Source: [facility] 3:53 AM HEALTH SYSTEM REPOSITORY TYPE CODE TESTS RESULT OUT OF REFERENCE UNITS RANGE LAB NA(LOINC) 136-145 mEq/L Sodium Blood 138 LAB K(LOINC) 3.5-5.1 mEq/L Potassium Blood 4.2 LAB CL(LOINC) 98-107 mEq/L Chloride High Blood 108 LAB CO2(LOINC) 21-32 mEq/L CO2 Blood 21 LAB GLU(LOINC) 70-99 mg/dL Glucose Blood 87 LAB BUN(LOINC) 7-18 mg/dL BUN Blood 11 LAB CREA(LOINC 0.51-0.95 mg/dL ) Creatinine Blood 0.77 LAB CA(LOINC) 8.5-10.1 mg/dL Low Calcium Blood 8.1 LAB ALB(LOINC) 3.4-5.0 g/dL Low Albumin Blood 3.1 LAB TP(LOINC) 6.4-8.2 g/dL Low Total Protein 6.1 LAB AST(LOINC) 9-37 U/L AST-SGOT High Blood 45 LAB ALT(LOINC) 12-78 U/L ALT-SGPT Blood 54 LAB ALKP(LOINC 46-116 U/L ) Alk Phosphatase 72 LAB BILIT(LOIN 0.2-1.0 mg/dL C) Total Bilirubin 0.2 LAB ANGAP(LOIN 8-16 C) Anion Gap 13 Performed By: #### P14 #### [place] [address] PROGRESS Observed: 11/03/2018 Status: COMPLETED Source: [facility] 6:11 AM CLINIC OTHER CAMPUS REPOSITORY O ID: [id number] Author: Bill Almendarez Service: General Surgery Author Type: Resident Type: Progress Notes Filed: 11/03/2018 6:44 AM Note Text: Attestation signed by Josy Gonsales at 11/03/2018 3:25 PM Attending Note I personally saw and examined the patient. I reviewed the resident's note. I agree with the resident's assessment and plan with the following revisions and/or additions: increase pain meds today. Dc tomorrow possibly Signature: Josy Gonsales MD Date: 11/03/2018 Time: 3:25 PM Elective General Surgery Progress Note SERVICE DATE: 11/03/2018 SUBJECTIVE: No acute events. Some nausea, RUQ is about the same. She states the current pain medication regimen is barely touching her pain. She is ambulating. Tolerated crackers last night but has had minimal PO intake. Tolerating diet DIET REGULAR OBJECTIVE: Vitals: Temp (24hrs), Av.9 ?C (98.4 ?F), Min:36.7 ?C (98.1 ?F), Max:37 ?C (98.6 ?F) BP 141/82 Pulse 89 Temp 37 ?C (98.6 ?F) (Temporal Artery) Resp 18 Ht 162.6 cm (5' 4) Wt 81.6 kg (180 lb) SpO2 95% BMI 30.90 kg/m? O2 Therapy: Room Air IANDO: Date 11/02/18699 - 11/03/18 0659 11/03/18699 - 11/04/18 0659 Shift 4356-1595 0416-0424 1332-9294 24 Hour Total 0949-0801 6946-9724 5588-5707 24 Hour Total I N T A K E Shift Total O U T P U T Urine Urine Not Saved. 1 x 1 x Shift Total Weight (kg) 81.6 81.6 81.6 81.6 81.6 81.6 81.6 MEDICATIONS Current Facility-Administered Medications: cholestyramine 4 g packet (QUESTRAN) 4 g ORAL DAILY cholecalciferol 1,000 Units tab(s) (VITAMIN D3) 1,000 Units ORAL DAILY enoxaparin 40 mg injection (LOVENOX) 40 mg SUBCUTANEOUS DAILY NaCl 0.9% 3-5 mL 3-5 mL INTRAVENOUS q 12 H dextrose 5% in NaCl 0.9% iv infusion 75 mL/hr INTRAVENOUS CONTINUOUS ondansetron 4 mg tab(s) (ZOFRAN) 4 mg ORAL q 6 H PRN Or ondansetron (PF) 4 mg injection (ZOFRAN) 4 mg INTRAVENOUS q 6 H PRN docusate sodium 100 mg cap(s) (COLACE) 100 mg ORAL BID PRN acetaminophen 975 mg tab(s) (TYLENOL) 975 mg ORAL QID morphine 1-2 mg injection 1-2 mg INTRAVENOUS q 4 H PRN nicotine 21 mg/24 hr 1 Patch (NICODERM) 1 Patch TRANSDERMAL DAILY And nicotine -- REMOVE patch OTHER DAILY And nicotine - verify patch OTHER q 8 H prochlorperazine 5 mg injection (COMPAZINE) 5 mg INTRAVENOUS q [address] 40 mg tab(s) (PROTONIX) 40 mg ORAL DAILY (6 AM) Labs: Recent Labs 11/03/18 0345 WBC 8.72 HB 11.8 HCT 35.1 PLT 228 Exam: GENERAL: No distress, Alert NEURO: AANDOx3, CN II-XII grossly intact HEENT: normocephalic, atraumatic LUNGS: Unlabored breathing CARDIAC: Regular rate and rhythm as above ABDOMEN: Soft, tender RUQ, nondistended, surgical incisions healing well EXTREMITIES: SAHNI, No deformities, No edema SKIN: Skin color, texture, turgor normal, No rashes or lesions ASSESSMENT AND PLAN: Active Hospital Problems Diagnosis Date Noted - Postoperative pain 11/02/2018 38 year old female RUQ abdominal pain s/p lap liver ablation 10/19/18 - Reg diet - Pain ctl - change to IV dilaudid; add PO regimen once tolerating diet better - SCDs, Lovenox - Ambulate - IS SIGNATURE: Bill Almendarez MD PATIENT NAME: Nelson Herrera DATE: November 03, 2018 TIME: 6:11 AM Pager: [phone] Elective General Surgery Service Pager: For questions or concerns Mon-Fri 6a-5p please page [phone]. After 5pm and on Weekends and Holidays, please page [phone]. HEMOGRAM Collected: 11/03/2018 Status: F Source: [facility] 3:45 AM HEALTH SYSTEM REPOSITORY TYPE CODE TESTS RESULT OUT OF REFERENCE UNITS RANGE LAB WBC(LOINC) 3.98-10.04 thou/cmm WBC 8.72 LAB RBC(LOINC) 3.93-5.22 mil/cmm Low RBC 3.68 LAB HGB(LOINC) 11.2-15.7 g/dL Hgb 11.8 LAB HCT(LOINC) 34.1-44.9 % Hct 35.1 LAB MCV(LOINC) 79.4-94.8 fl High MCV 95.4 LAB MCH(LOINC) 25.6-32.2 pg MCH 32.1 LAB MCHC(LOINC) 31.6-34.8 % MCHC 33.6 LAB RDW(LOINC) 11.7-14.4 % RDW 11.7 LAB RDWSD(LOINC 36.4-46.3 fl ) RDW SD 40.3 LAB PLT(LOINC) 182-369 thou/cmm Platelet 228 LAB MPV(LOINC) 9.4-12.3 fl MPV 10.5 Performed By: #### CBC1 #### [place] [id number] COMPREHENSIVE PANEL Collected: 11/03/2018 Status: F Source: [facility] 3:45 AM HEALTH SYSTEM REPOSITORY TYPE CODE TESTS RESULT OUT OF REFERENCE UNITS RANGE LAB NA(LOINC) 136-145 mEq/L Sodium Blood 137 LAB K(LOINC) 3.5-5.1 mEq/L Low Potassium Blood 3.3 LAB CL(LOINC) 98-107 mEq/L Chloride Blood 106 LAB CO2(LOINC) 21-32 mEq/L CO2 Blood 24 LAB GLU(LOINC) 70-99 mg/dL Glucose High Blood 132 LAB BUN(LOINC) 7-18 mg/dL BUN Blood 8 LAB CREA(LOINC 0.51-0.95 mg/dL ) Creatinine Blood 0.69 LAB CA(LOINC) 8.5-10.1 mg/dL Calcium Blood 8.5 LAB ALB(LOINC) 3.4-5.0 g/dL Low Albumin Blood 3.2 LAB TP(LOINC) 6.4-8.2 g/dL Low Total Protein 6.3 LAB AST(LOINC) 9-37 U/L AST-SGOT Blood 17 LAB ALT(LOINC) 12-78 U/L ALT-SGPT Blood 30 LAB ALKP(LOINC 46-116 U/L ) Alk Phosphatase 61 LAB BILIT(LOIN 0.2-1.0 mg/dL C) Total Bilirubin 0.4 LAB ANGAP(LOIN 8-16 C) Anion Gap 10 Performed By: #### P14 #### [facility] [address] [place], [place] [address] HISTORY PHYSICAL Observed: 11/02/2018 Status: COMPLETED Source: [place] 11:36 PM CLINIC OTHER CAMPUS REPOSITORY HNO ID: [id number] Author: Conrado Mendez DO Service: General Surgery Author Type: Resident Type: HANDP Filed: 11/02/2018 11:58 PM Note Text: Attestation signed by Josy Gonsales at 11/03/2018 2:17 PM Attending Note I personally saw and examined the patient. I reviewed the resident's note. I agree with the resident's assessment and plan with the following revisions and/or additions: will increase pain medication today. Likely pain from liver remodelling. Signature: Josy Gonsales MD Date: 11/03/2018 Time: 2:17 PM HISTORY AND PHYSICAL EXAMINATION SERVICE DATE: 11/02/2018 SERVICE TIME: 2133 PRIMARY CARE PHYSICIAN: Arleen Greenberg MD Subjective CHIEF COMPLAINT: Abdominal Pain HPI: This is a 38 year old female with PMHx GERD, obesity, tobacco abuse and hepatic adenoma that was ablated on 10/19/[address] Gonsales. Additionally she had a left upper extremity lipoma removed. She was admitted on 10/30/18 to [place] ED with right upper quadrant abdominal pain radiating to the shoulder, dull with episodes of sharp stabbing quality. CT Abdomen and Pelvis with contrast showed a 5.8x3.1cm diminished density in the right upper lobe of the liver consistent with recent surgery, without abscess or fluid collection. Admitted for pain management and general surgery was consulted at [facility] [place]. EGD showed normal esophagous, some gastritis, which was biopsied, and a normal duodenum. She had a HIDA scan that was negative for biliary leak. The pain still persisted, and decision was made to transfer to [facility] for further evaluation. This evening, pt complained of decreased appetite, abdominal pain, 8/10 in severity, worse with motion and improved with rest and medication. Also admits to chills and some nausea. Denies fevers, CP/SOB, cough, vomiting, diarrhea, constipation, or any other complaints this PM. FUNCTIONAL STATUS: Independent PAST MEDICAL HISTORY Diagnosis Date - Abdominal pain - Anemia - Dyspepsia - Endometriosis - Fatty liver - IBS (irritable bowel syndrome) - Liver mass - Post-cholecystectomy syndrome - RUQ pain 06/10/14 - Vitamin D deficiency PAST SURGICAL HISTORY Procedure Laterality Date - COLONOSCOPY W/BIOPSY 2013 - CYST/MOLE REMOVAL Bilateral Left wrist, right hand - EGD DILATION - ENDOSCOPY PROC 2013 bxs - LAP CHOLECYSTECT/CHOLANGIOGRAPHY 04/24/14 Normal IOC - PAST SURGICAL HISTORY OF appendectomy - PAST SURGICAL HISTORY OF dental procedures - PAST SURGICAL HISTORY OF diagnostic laparoscopy - PAST SURGICAL HISTORY OF Carpal tunnel release, right - PAST SURGICAL HISTORY OF as a child removed a piece of lead from skull - TOTAL ABDOM HYSTERECTOMY 2004 Hysterectomy, [facility] FAMILY HISTORY Problem Relation Age of Onset - Adopted: Yes - other (adopted) Other Social History Substance Use Topics - Smoking status: Current Every Day Smoker Packs/day: 0.50 Years: 11.00 Types: Cigarettes - Smokeless tobacco: Never Used - Alcohol use Yes Comment: [facility] Prescriptions Prior to Admission: Omeprazole 40 mg capsule Take 40 mg by mouth once daily. Disp: Rfl: 0 10/18/2018 at Unknown time Cholecalciferol, Vitamin D3, 1,000 unit cap Take 1,000 Units by mouth once daily. Disp: Rfl: Unknown at Unknown time cholestyramine (QUESTRAN) 4 gram packet Take by mouth as directed. (Patient taking differently: once daily. Take by mouth as directed. ) Disp: 30 Packet Rfl: 2 10/18/2018 at Unknown time ALLERGIES Allergen Reactions - Penicillins Hives, Anaphylaxis, Shortness of Breath - Chantix [Vareniclin* Other: See Comments Mood changes (irritability), flu like symptoms, body aching - Demerol [Meperidine* Other: See Comments Nausea - Latex Other: See Comments my skin starts pealing off COMPLETE REVIEW OF SYSTEMS: 10 point review of systems was performed and negative unless otherwise noted in the HPI. Objective PHYSICAL EXAM: Physical Exam Performed: GENERAL: Alert, no distress, cooperative HEAD/SINUSES: No significant findings NECK: No jugulovenous distention, Supple BACK: Back symmetric, Normal curvature, nontender CARDIAC: Normal S1 and S2; no rubs, murmurs, or gallops ABDOMEN: Obese, Soft, TTP RUQ without rebound or guarding, masses or organomegaly. Laparoscopic incisions CDI wihtout active bleeding. EXTREMITIES: Extremities normal, no deformities, edema, clubbing or skin discoloration. Good capillary refill. NEURO: Grossly normal cognition, motor function, and cranial nerves III-XII RECTAL: Exam deferred WOUND: 2x2cm LUE wound on posterior arm covered with bandage and adequate granulation tissue at the base BP 141/82 Pulse 86 Temp (Src) 98.1 (Temporal Artery) Resp 18 Ht 5' 4 (1.63m) Wt 180 lb (81.6kg) SpO2 98% BMI 30.88 kg/(m2). DATA: Diagnostic tests reviewed for today's visit: Most recent labs and imaging results. Assessment/Plan Active Problems: Postoperative pain POA: - DIET REGULAR - IVF DC when tolerating PO - pain and nausea control - AM labs - nicotine patch - home questran, synthroid, Vit D - Deliver CT and HIDA scan to radiology for upload - follow up on EGD biopsy from [facility] - DVT PPx: LVX - DW Dr Gonsales Medication and Non-Pharmacologic VTE Prophylaxis/Anticoagulants Anticoagulant AND Antiplatelet Medications Start Dose Route Frequency Ordered Stop 11/03/18 0900 enoxaparin 40 mg injection (LOVENOX) (Surgical Moderate Risk ) 40 mg SUBCUTANEOUS DAILY 11/02/18 2334 -- 11/02/18 2345 pneumatic compression stockings ([place] 11/02/18 2345 activity - mobilize patient ([place]) VTE Prophylaxis: VTE prophylaxis appropriate SIGNATURE: Conrado Mendez DO PATIENT NAME: Nelson Herrera DATE: November 02, 2018 TIME: 11:36 PM PAGER/CONTACT #: [phone] Elective General Surgery Service Pager: For questions or concerns Mon-Fri 6a-5p please page [phone]. After 5pm and on Weekends and Holidays, please page [phone] if in ICU or [phone] if on RNF. NURSING PROG Observed: 11/02/2018 Status: COMPLETED Source: [place] 10:55 PM CLINIC OTHER CAMPUS REPOSITORY HNO ID: [id number] Author: Conrado Mendez DO Service: General Surgery Author Type: Resident Type: Nursing Progress Note Filed: 11/02/2018 11:36 PM Note Text: Surgery pager [phone] text paged for admitting orders. __ I saw and evaluated the patient prior to a trauma alert that was called at 2143. Orders received as soon I was available. Conrado Mendez DO PGY-1 General Surgery 11/02/2018 11:35 PM DISCHARGE SUMMARY Observed: 11/02/2018 Status: F Source: [place] 2:16 PM [facility] REPOSITORY [facility] Medical Records Department [address] [place] [address] Discharge Summary 11/02/18 1350 MR#: [id number] Acct: [id number] Name: NELSON HERRERA Rep #: [id number] : 1980 38 From: Sepideh Garcia MD PCP: Arleen Greenberg Status: ADM BRITNEY Y Location: [place] [address] Discharge Date and Diagnosis - Problem List Patient Problems: Active and Suspected Problems RUQ pain (Acute) Date of Admission: 10/30/18 Date of Discharge: 11/02/18 - Primary Discharge Diagnosis Active and Suspected Problems RUQ pain (Acute) - Secondary Discharge Diagnosis Chronic Problems Hepatic adenoma (Chronic) GERD (gastroesophageal reflux disease) (Chronic) Tobacco use (Chronic) Obesity (BMI 30.0-34.9) (Chronic) Status post appendectomy (Chronic) Status post hysterectomy (Chronic) Status post cholecystectomy (Chronic) Hospital Course and Treatment Imaging Results: Diagnostic Data Abdomen/Pelvis CT 10/30/18 21:15 IMPRESSION: Abnormal liver consistent with recently treated lesion in the right lobe. No dilated loops of bowel. No hydronephrosis. No fluid collection. Electronically Signed: Romaine Chand MD at 22:24 EST , Service support , Hepatobiliary Scan Nuclear Medicine 11/01/18 10:55 IMPRESSION: 1. Nonvisualization of the gallbladder is consistent with prior cholecystectomy. 2. There is no scintigraphic evidence of bile leak. 3. The prominent sized common bile duct may be further investigated with abdominal ultrasound if clinically indicated. 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 She was admitted with a complaint of abdominal pain. Pain was in the right upper quadrant, radiated to the left shoulder, dull with episodic sharp nature. CT abdomen pelvis with contrast showed 5.8 x 3.1cm diminshed density in the right lobe consistent with with recently treated lesion of the right lobe without abscess or fluid collection. She was admitted and managed for right upper quadrant pain of unknown etiology. General surgery was consulted. EGD showed normal esophagus, gastritis, which was biopsied, and normal duodenum. She had a HIDA scan which was also negative for any biliary leak. Pain still persisted, and it was thought to be due to related to the recent surgery. Decision was therefore made to transfer patient to [facility] [place] to the service of Dr Gonsales who performed the surgery for further evaluation. Patient seen and examined. She still complained of abdominal pain and rated it at 7/10. She denies fever, chills, cough, chest pain, diarrhea or vomiting. REview of systems otherwise negative. o/e: Vital Signs Height 5 ft 4.17 in Weight: 180 lb 15.992 oz [] General: Alert, Oriented x3, Cooperative, No apparent distress HEENT: Atraumatic, PERRLA, EOMI, Normocephalic Oral: Moist Mucosa Neck: Supple, No JVD, Negative Carotid Bruits Lungs: Clear to auscultation, Normal air movement Cardiovascular: Regular rate, Regular Rhythm, Normal S1, Normal S2, No murmurs Abdomen: Bowel Sounds Present, Soft, Non-Distended, No Hepato- splenomegaly, - - Mild right upper quadrant tenderness with no guarding or rebound tenderness. Extremities: No clubbing, No cyanosis, No edema, Capillary Refill Less than 3 Seconds Skin: No rashes, No breakdown Musculoskeletal: No Tenderness to Palpation of Joints or Extremities Lymphatic: No Cervical, Supraclavicular, or Inguinal Adenopathy Neurological: Cranial nerves II-XII grossly intact, Neuro grossly intact, Motor Exam 5/5 strength throughout Psych/Mental Status: Normal Affect, Appropriate, Alert and oriented to time, place, person, mood and affect Plan as stated is to transfer patient to [facility] [place]. Patient Problems: Active and Suspected Problems RUQ pain (Acute) - Physical Exam Vital Signs Temp Pulse Resp BP Pulse Ox 97.9 F 79 16 147/86 H 97 11/02/18 09:11 11/02/18 09:11 11/02/18 09:11 11/02/18 09:11 11/02/18 09:11 Oxygen Delivery Method Room Air Weight: 180 lb 15.992 oz Body Mass Index (BMI) 30.9 Finger Stick Blood Glucose 93 Intake and Output for Last 24 Hours Intake Total 3276 / 3276 1653 / 1653 1489 / 1489 Output Total 1050 / 1050 2525 / 2525 Balance 3276 / 3276 603 / 603 -1036 / -1036 Laboratory Tests Past 24 Hrs WBC 7.6 RBC 3.79 L Hgb 12.1 Hct 36.4 L MCV 96.0 MCH 31.9 MCHC 33.2 Discharge Diet: No Restrictions Discharge Activity: Return to Normal Activity Weight Bearing Status: Weight bearing as tolerated Home Medications: Medications to take at Discharge Cholestyramine (with Sugar) [Cholestyramine Packet] 4 gm PO DAILY 10/30/18 Omeprazole [Prilosec] 40 mg PO DAILY 10/30/18 Primary Care Physician: Yasmin Doctor,Out of [NON-STAFF] - Please follow up with your Primary Care Physician in: 1-2 weeks Patient Instructions: Abdominal Pain Disposition: Home Minutes spent on discharge:: 40 Patient Condition:: Stable Medical Necessity - Tobacco Use Smoking Status: Current every day smoker - Patient smokes proximally 1/2 pack/day cigarette tobacco. Tobacco Use: Cigarettes Meaningful Use Info Meaningful Use Diagnoses (Choose all that apply): None applicable Code Visit Inpatient E AND M: 72648 Disch Hosp 11/02/18 1416 <Electronically signed by Sepideh Garcia MD> Date Sepideh Garcia MD Cosigner Signature (if applicable): Date CC: Arleen Greenberg; Sepideh Garcia MD Signed DISCHARGE INSTRUCTION Observed: 11/02/2018 Status: F Source: [place] 1:49 PM [facility] REPOSITORY [facility] Medical Records Department [address] [place] [address] Instructions for Home/Discharge Instructions 11/02/18 1348 MR#: [id number] Acct: [id number] Name: NELSON HERRERA Rep #: [id number] : 1980 38 From: Sepideh Garcia MD PCP: Arleen Greenberg Status: ADM BRITNEY - Discharge Diagnoses Current Active Problems: Current Active and Chronic Problems RUQ pain (Acute) Hepatic adenoma (Chronic) GERD (gastroesophageal reflux disease) (Chronic) Tobacco use (Chronic) Obesity (BMI 30.0-34.9) (Chronic) You will use the following diet at home:: Regular Your food should be the consistency of: Regular Discharge Activity: Return to Normal Activity Weight Bearing Status: Weight bearing as tolerated Allergies/Adverse Reactions: Allergies latex Allergy (Mild, Verified 10/30/18 19:29) IRRIATION, OR IF SHE INGEST SHE VOMITS. hydromorphone HCl [From Dilaudid] Allergy (Verified 10/30/18 19:29) ITCHY LIKE FIREY ANTS ALL OVER HER SKIN Penicillins Allergy (Verified 10/30/18 19:29) Shortness of breath acetaminophen [From Darvocet-N] Adverse Reaction (Verified 10/30/18 19:29) Nausea meperidine [From Demerol] Adverse Reaction (Verified 10/30/18 19:29) Nausea propoxyphene [From Darvocet-N] Adverse Reaction (Verified 10/30/18 19:29) Nausea varenicline [From Chantix] Adverse Reaction (Verified 10/30/18 19:29) Other Medications to take at Discharge Cholestyramine (with Sugar) [Cholestyramine Packet] 4 gm PO DAILY 10/30/18 Omeprazole [Prilosec] 40 mg PO DAILY 10/30/18 Primary Care Physician: [facility] Doctor,Out of [NON-STAFF] - Please follow up with your Primary Care Physician in: 1-2 weeks Test Results: Test results from this visit will be discussed in further detail at your follow-up appointment, if applicable. Proposed Discharge Date: 11/02/18 11/02/18 1349 <Electronically signed by Sepideh Garcia MD> Date Sepideh Garcia MD CC: Arleen Greenberg; Av Rodriguez MD Signed CBC W/DIFF, AUTOMATED Collected: 11/02/2018 Status: F Source: [place] 5:30 AM [facility] REPOSITORY TYPE CODE TESTS RESULT OUT OF RANGE REFERENCE UNITS LAB L100.1000 4.4-11.0 K/mm3 Normal WBC 7.6 LAB L100.1200 4.2-5.4 M/mm3 Low RBC 3.79 LAB L100.1300 12.0-15.0 g/dl Normal HGB 12.1 LAB L100.1400 37-47 % Low HCT 36.4 LAB L100.1500 81-99 fL Normal MCV 96.0 LAB L100.1600 27.0-32.0 pg Normal MCH 31.9 LAB L100.1700 32-36 g/gl Normal MCHC 33.2 LAB L100.1810 11.6-14.6 % Normal RDW CV 11.9 LAB L100.1820 35.1-43.9 fl Normal RDW SD 41.7 LAB L100.1900 150-450 K/mm3 Normal PLT 213 LAB L100.2000 6.2-12.0 fl Normal MPV 9.7 LAB L100.2100 47-70 % Normal NEUT% 59.9 LAB L100.2200 19-41 % Normal LY% 28.6 LAB L100.2300 0-10 % Normal MONO% 6.5 LAB L100.2400 0-5 % Normal EO% 3.4 LAB L100.2500 0-1 % Normal BASO% 0.3 LAB L100.2550 0.0-0.9 % High IM GRAN % 1.300 Result Comment: IG% - Immature Granulocytes (promyelocytes, myelocytes and metamyelocytes) > 1% indicates that a LEFT SHIFT is Present. LAB L100.2620 2.0-7.7 X10 3/uL Normal Absolute Neut 4.5 LAB L100.2720 0.83-4.51 X10 3/ul Normal Absolute Lymph 2.17 Performed By: #### L100.0100 #### Laboratory [address] [place], [address] BASIC METABOLIC Collected: 11/02/2018 Status: F Source: [place] PROFILE (BMP) 5:30 AM [facility] REPOSITORY TYPE CODE TESTS RESULT OUT OF RANGE REFERENCE UNITS LAB L501.0100 74-106 mg/dL Low GLU 69 Result Comment: Please note revised GLUCOSE reference range effective 2017. LAB L501.1000 7-18 mg/dL Low BUN 6 LAB L501.1100 0.55-1.02 mg/dL Normal CREAT,SERUM 0.59 Result Comment: The validity of the calculated GFR AND GFRAA in patients over 70 years has not been determined. Clinical correlation is essential. LAB L501.1110 >60 mL/min Normal EST GFR 122 Result Comment: Non- GFR Calc LAB L501.1115 >60 mL/min Normal EST GFR - AA 147 Result Comment: GFR Calc LAB L501.1255 ml/min Normal Estimated CRCL 112.74 LAB L501.1300 10-20 RATIO BUN/CRE Normal 10.2 LAB L501.2200 8.5-10 mg/dL Low .1 CA 8.0 LAB L501.5300 136-14 mmol/L 5 NA Normal 139 LAB L501.5600 3.5-5. mmol/L 1 K Normal 3.9 LAB L501.5900 98-107 mmol/L High CL 108 LAB L501.6100 21.0-3 mmol/L 2.0 CO2 Normal 22.0 LAB L501.6200 5-15 GAP Normal 9 Performed By: #### L500.2500 #### Laboratory [address] [place], [address] OPERATIVE REPORT - Observed: 11/01/2018 Status: F Source: [place] ENDOSCOPY 12:47 PM [facility] REPOSITORY [facility] Medical Records Department [address] [place] [address] Operative Report - Endoscopy MR#: [id number] Acct: [id number] Name: NELSON HERRERA Rep #: [id number] : 1980 38 From: Av Rodriguez MD PCP: Arleen Greenberg Status: ADM BRITNEY Patient Name: Nelson Herrera Procedure Date: 11/01/2018 10:08 AM Date of : 1980 Age: 38 Procedure: Upper GI endoscopy Indications: Epigastric abdominal pain, Abdominal pain in the right upper quadrant, Nausea with vomiting Providers: Av Rodriguez MD Medicines: See the Anesthesia note for documentation of the administered medications Patient Profile: This is a 38 year old female. Refer to note in patient chart for documentation of history and physical. Complications: No immediate complications. Procedure: Pre-Anesthesia Assessment: - Prior to the procedure, a History and Physical was performed, and patient medications and allergies were reviewed. The patient's tolerance of previous anesthesia was also reviewed. The risks and benefits of the procedure and the sedation options and risks were discussed with the patient. All questions were answered, and informed consent was obtained. Prior Anticoagulants: The patient has taken no previous anticoagulant or antiplatelet agents. ASA Grade Assessment: II - A patient with mild systemic disease. After reviewing the risks and benefits, the patient was deemed in satisfactory condition to undergo the procedure. After obtaining informed consent, the endoscope was passed under direct vision. Throughout the procedure, the patient's blood pressure, pulse, and oxygen saturations were monitored continuously. The gastroscope was introduced through the mouth, and advanced to the second part of duodenum. The upper GI endoscopy was accomplished without difficulty. The patient tolerated the procedure well. Scope In: 10:18:38 AM Scope Out: 10:21:31 AM Total Procedure Duration Time 0 hours 2 minutes 53 seconds Findings: The examined esophagus was normal. Localized minimal inflammation characterized by erythema was found in the prepyloric region of the stomach. Biopsies were taken with a cold forceps for Helicobacter pylori testing. The examined duodenum was normal. No biopsies or other specimens were collected for this exam. Impression: - Normal esophagus. - Gastritis. Biopsied. - Normal examined duodenum. No specimens collected. Recommendation: - [facility] patient to [facility] care. - Clear liquid diet. - Continue present medications. - Await pathology results. - Repeat upper endoscopy at appointment to be scheduled to assess disease activity. - Return to liver clinic at appointment to be scheduled. Procedure Code(s): --- Professional --- 76559, Esophagogastroduodenoscopy, flexible, transoral; with biopsy, single or multiple Diagnosis Code(s): --- Professional --- K29.70, Gastritis, unspecified, without bleeding R10.13, Epigastric pain R10.11, Right upper quadrant pain R11.2, Nausea with vomiting, unspecified CPT copyright 2017 [employer]. All rights reserved. The codes documented in this report are preliminary and upon certified medical coder review may be revised to meet current compliance requirements. MD Av Kapoor MD 11/01/2018 10:25:52 AM This report has been signed electronically. Number of Addenda: 0 Note Initiated On: 11/01/2018 10:08 AM 11/01/18 1246 Date Av Rodriguez MD Cosigner Signature: Date (if indicated) CC: Arleen Greenberg; Av Rodriguez MD; Sepideh Garcia MD Date Dictated: 11/01/18 1008 Date Transcribed: Inverter And Clipper: TAYLOR Signed IMMUNOHISTOCHEMISTRY Observed: 11/01/2018 Status: F Source: [place] 11:00 AM [facility] REPOSITORY Patient: NELSON HERRERA : 1980 (38/F) Acct Num: [id number] Phys: Sepideh Garcia MD Unit Num: [id number] Loc: MS3 [id number] Specimen: [id number] Received: 11/01/18 - 1308 Spec Type: IMMUNO TISSUES 1 TISSUES: Stomach, NOS SPECIMEN INFORMATION: Tissue Source: Antral biopsy Clinical Info: Abdominal pain Specimen Number: [id number] CPT code: 58686 METHODOLOGY: Deparaffinized sections of prefer/formalin-fixed tissue or PAP/DQ stained slides are incubated with monoclonal/polyclonal antibodies/oligonucleotide probes. Localization is made via biotin free immunoperoxidase method. Appropriate controls are performed and reacted as expected. Results on target cell population are indicated in the following table: RESULTS: ANTIBODY / CLONE RESULT H Pylori (polyclonal) negative These tests were developed and their performance characteristics determined by Laboratory. They may not have been cleared or approved by the U.S. Food and Drug Administration. The FDA has determined that such clearance or approval is not necessary. INTERPRETATION: Antral biopsy: Negative for Helicobacter pylori organisms. AM:[facility]vante 11/02/18 PHYSICIAN AND INSTITUTION [place] [address] Signed Ga Mao DO 11/02/18 <signature on file> Performed By: #### PIMM #### Laboratory [address] [place] [address]. [place] [id number] HEPATOBILLIARY IMAGING Observed: 11/01/2018 Status: F Source: [place] 10:55 AM [facility] REPOSITORY [facility] Imaging Services [address] [place] [address] Hepatobilliary Imaging MR#: [id number] Acct: [id number] Name: NELSON HERRERA Rep #: [id number] : 1980 F 38 From: Juan Baumann DO PCP: Arleen Greenberg Status: ADM BRITNEY Study: Hepatobilliary Imaging Date of Exam: 11/01/18 Exam# [id number] Ordering Dr: Sepideh Garcia MD CLINICAL: 38-year-old female with history of remote cholecystectomy and recent ablation of primary hepatic adenoma with current complaint of right upper quadrant abdominal pain. RADIONUCLIDE HEPATOBILIARY SCINTIGRAPHY COMPARISON: CT of the abdomen-pelvis 10/30/2018 FINDINGS: Following the intravenous administration of 5.5 mCi of 99m Tc Mebrofenin, hepatobiliary images reveal: 1. Relatively prompt and homogeneous radiopharmaceutical concentration is noted by a normal sized liver. A subtle parenchymal defect is defined in the upper lateral right lobe in the distribution of segment VII. 2. Gallbladder activity is not identified during 60 minutes of sequential imaging commensurate with known history of prior cholecystectomy. 3. Prominent common bile duct distribution of the radiotracer is defined, initiating approximately 30 minutes following tracer injection. Small intestinal tract is observed at approximately 30 minutes post radiopharmaceutical administration. 4. Washout of the radiopharmaceutical by the hepatic parenchyma appears qualitatively normal. 5. There is no evidence of a visualized bile leak identified during 60 minutes of sequential imaging. NM/Hepatobilliary Imaging IMPRESSION: 1. Nonvisualization of the gallbladder is consistent with prior cholecystectomy. 2. There is no scintigraphic evidence of bile leak. 3. The prominent sized common bile duct may be further investigated with abdominal ultrasound if clinically indicated. Electronically Signed: Juan aBumann DO at 12:54 EST Tel , Service support , CC: Arleen Greenberg; Sepideh Garcia MD Inverter And Clipper: Signed BASIC METABOLIC Collected: 11/01/2018 Status: F Source: [place] PROFILE (BMP) 5:56 AM [facility] REPOSITORY TYPE CODE TESTS RESULT OUT OF RANGE REFERENCE UNITS LAB L501.0100 74-106 mg/dL Normal GLU 74 Result Comment: Please note revised GLUCOSE reference range effective 2017. LAB L501.1000 7-18 mg/dL Normal BUN 7 LAB L501.1100 0.55-1.02 mg/dL Low CREAT,SERUM 0.51 Result Comment: The validity of the calculated GFR AND GFRAA in patients over 70 years has not been determined. Clinical correlation is essential. LAB L501.1110 >60 mL/min Normal EST GFR 144 Result Comment: Non- GFR Calc LAB L501.1115 >60 mL/min Normal EST GFR - AA 174 Result Comment: GFR Calc LAB L501.1255 ml/min Normal Estimated CRCL 130.42 LAB L501.1300 10-20 RATIO BUN/CRE Normal 13.8 LAB L501.2200 8.5-10 mg/dL Low .1 CA 7.8 LAB L501.5300 136-14 mmol/L 5 NA Normal 138 LAB L501.5600 3.5-5. mmol/L 1 K Normal 4.7 LAB L501.5900 98-107 mmol/L High CL 112 LAB L501.6100 21.0-3 mmol/L Low 2.0 CO2 17.0 LAB L501.6200 5-15 GAP Normal 9 Performed By: #### L500.2500 #### Laboratory [address] [place], [place], [address] CBC W/DIFF, AUTOMATED Collected: 11/01/2018 Status: F Source: [place] 5:56 AM [facility] REPOSITORY TYPE CODE TESTS RESULT OUT OF RANGE REFERENCE UNITS LAB L100.1000 4.4-11.0 K/mm3 Normal WBC 10.1 LAB L100.1200 4.2-5.4 M/mm3 Low RBC 3.78 LAB L100.1300 12.0-15.0 g/dl Normal HGB 12.1 LAB L100.1400 37-47 % Normal HCT 37.1 LAB L100.1500 81-99 fL Normal MCV 98.1 LAB L100.1600 27.0-32.0 pg Normal MCH 32.0 LAB L100.1700 32-36 g/gl Normal MCHC 32.6 LAB L100.1810 11.6-14.6 % Normal RDW CV 12.1 LAB L100.1820 35.1-43.9 fl Normal RDW SD 43.3 LAB L100.1900 150-450 K/mm3 Normal PLT 198 LAB L100.2000 6.2-12.0 fl Normal MPV 10.0 LAB L100.2100 47-70 % Normal NEUT% 65.8 LAB L100.2200 19-41 % Normal LY% 25.4 LAB L100.2300 0-10 % Normal MONO% 4.8 LAB L100.2400 0-5 % Normal EO% 2.6 LAB L100.2500 0-1 % Normal BASO% 0.3 LAB L100.2550 0.0-0.9 % High IM GRAN % 1.100 Result Comment: IG% - Immature Granulocytes (promyelocytes, myelocytes and metamyelocytes) > 1% indicates that a LEFT SHIFT is Present. LAB L100.2620 2.0-7.7 X10 3/uL Normal Absolute Neut 6.7 LAB L100.2720 0.83-4.51 X10 3/ul Normal Absolute Lymph 2.57 Performed By: #### L100.0100 #### Laboratory [address] [place], [address] EGD ([facility]) Observed: 11/01/2018 Status: F Source: [place] 12:00 AM [facility] REPOSITORY Patient: NELSON HERRERA : 1980 (38/F) Acct Num: [id number] Phys: Sepideh Garcia MD Unit Num: [id number] Loc: MS3 [id number] Specimen: [id number] Received: 11/01/181042 Spec Type: EGD BIOPSY TISSUES 1 TISSUES: Gastric mucous membrane COMMENT The results of immunohistochemistry for Helicobacter pylori will be reported separately ([id number]). GROSS DESCRIPTION Received in fixative is one container labeled with the patient's name and designated antral biopsy. The specimen consists of one irregular fragment of light carrillo soft tissue that measures 0.8 x 0.2 x 0.1 cm. The specimen is totally submitted in one cassette. / AM:devante 11/01/18 TC:3 CPT: 66964 HEADER OPERATION: [place] [place] PRE-[place] DIAGNOSIS: Abdominal pain TISSUE SUBMITTED: Antral biopsy for H. pylori and pathology MICROSCOPIC DESCRIPTION Slides are reviewed. MICROSCOPIC DIAGNOSIS Gastric antrum, biopsy: Minimal chronic inflammation. See comment. AM:devante 11/02/18 Signed Ga Mao, DO 11/02/18 <signature on file> Performed By: #### PEGD #### Laboratory [address] [place], [address] CONSULTATION Observed: 10/31/2018 Status: F Source: [place] 7:40 PM [facility] REPOSITORY [facility] Medical Records Department [address] [place] [address] Consultation 10/31/18 0931 MR#: [id number] Acct: [id number] Name: NELSON HERRERA Rep #: [id number] : 1980 38 From: Nevin Montemayor PA-C PCP: Arleen Greenberg Status: ADM BRITNEY Y Location: [place] [id number] ADDENDUM by Av Rodriguez MD on 10/31/18 at 1939 Code Visit As below. Plan will be to perform an EGD tomorrow. 10/31/18 1940 <Electronically signed by Av Rodriguez MD> Date Av Rodriguez MD cc: Arleen Greenberg; Av Rodriguez MD * Signed ADDENDUM by Nevin Palomares on 10/31/18 at 1229 Code Visit Patient was placed on full liquid diet. She had oatmeal and tea and had pain following eating. We will make patient NPO and schedule her for an upper scope tomorrow with Dr. Rodriguez. 10/31/18 1229 <Electronically signed by Nevin Montemayor PA-C> Date Nevin Montemayor PA-C cc: Arleen Greenberg; Av Rodriguez MD * Signed Problem List (1) RUQ pain Status: Acute Reason for Consult Date of Consultation: 10/31/18 Reason for Consultation: Right upper quadrant pain. Postprocedural pain. History of Present Illness: The patient is a 38 year old F who presented with 1 day history of worsening RUQ pain. Patient most recently had a liver ablation on 10/[address] Gonsales at [facility] for a hepatic adenoma. Patient notes this was incidentally found on CTA of the chest in the ED due to having chest pain. Patient had a biopsy of the liver mass proving that this was a benign adenoma. Per patient, the adenoma measured approximately 2 cm. Patient notes post-operatively she had RUQ discomfort for the first 3 days and then after that she minimal amount of discomfort. 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 She noted she returned home from work last night started dinner and approximately 15-20 minutes after she had a severe 10 out of 10 RUQ pain wrapping into her mid back and radiating up into her right shoulder and neck. Patient noted she had nausea associated with the pain. She contacted Dr. Gonsales's office who recommended to come the ED. Patient notes she continues to have some discomfort. Patient had previously had a cholecystectomy [place] [address] [facility]Hgh. She notes being placed on Prilosec by her PCP last Jul/Aug to help with heartburn and nausea. She notes it helps with heartburn however denies helping with nausea. Patient at the same time had a left upper extremity lipoma. Incision had dehiscence and a bandage has been placed over top of the area. CT scan of the abdomen was obtained demonstrating abnormal liver consistent with recently treated lesion in the right lobe, No dilated loops of bowel. No hydronephrosis. No fluid collection. Past Medical History Past Medical History (Chronic Problems): Chronic Problems Hepatic adenoma (Chronic) GERD (gastroesophageal reflux disease) (Chronic) Tobacco use (Chronic) Obesity (BMI 30.0-34.9) (Chronic) Status post appendectomy (Chronic) Status post hysterectomy (Chronic) Status post cholecystectomy (Chronic) Allergies latex Allergy (Mild, Verified 10/30/18 19:29) IRRIATION, OR IF SHE INGEST SHE VOMITS. hydromorphone HCl [From Dilaudid] Allergy (Verified 10/30/18 19:29) ITCHY LIKE FIREY ANTS ALL OVER HER SKIN Penicillins Allergy (Verified 10/30/18 19:29) Shortness of breath acetaminophen [From Darvocet-N] Adverse Reaction (Verified 10/30/18 19:29) Nausea meperidine [From Demerol] Adverse Reaction (Verified 10/30/18 19:29) Nausea propoxyphene [From Darvocet-N] Adverse Reaction (Verified 10/30/18 19:29) Nausea varenicline [From Chantix] Adverse Reaction (Verified 10/30/18 19:29) Other Home Medications: Ambulatory Orders Medication Instructions Recorded Cholestyramine (with Sugar) 4 gm PO DAILY 10/30/18 [Cholestyramine Packet] Omeprazole [Prilosec] 40 mg PO DAILY 10/30/18 Surgical History: appendectomy, cholecystectomy, hysterectomy, - - Appendectomy, cholecystectomy, hysterectomy, bilateral wrist cyst removal, right carpal tunnel surgery, recent right liver lobe adenoma ablation in addition to left upper extremity lipoma removal. Psychiatric History: No pertinent psych hx [employer] History: No pertinent [employer] history Lives: Spouse/ Significant Other - She lives with her boyfriend and son. Smoking Status: Current every day smoker - Patient smokes proximally 1/2 pack/day cigarette tobacco. Tobacco Use: Cigarettes Alcohol: Occasional Drugs: None - *Family History Paternal History Items: - - Patient is adopted and states she does not know any of her maternal or paternal family history. Maternal History Items: - - Patient is adopted and states she does not know any of her maternal or paternal family history. Review of Systems Constitutional: Denies: Chills, Fever, Weight Change HEENT: Denies: Head Aches, Sinus Congestion, Sinus Drainage Cardiovascular: Denies: Chest Pain, Palpitations Respiratory: Denies: Cough, Shortness of breath at rest, Sputum production Gastrointestinal: Reports: Abdominal Pain, Nausea. Denies: Constipation, Diarrhea Genitourinary: Denies: Dysuria Musculoskeletal: Denies: Joint Pain, Joint Tenderness Skin: Reports: Wounds - Left upper extremity. Denies: Rash Neurological: Denies: Numbness, Tingling, Focal weakness Psychiatric: Denies: Anxiety, Depression, Homicidal Ideations, Suicidal Ideations Hematologic/ Lymphatic: Denies: Easy Bruising, Easy Bleeding Patient Problems: Active and Suspected Problems RUQ pain (Acute) - Physical Exam General: Alert, Oriented x3, Cooperative HEENT: Atraumatic, PERRLA, EOMI, Normocephalic Neck: Supple, No JVD, Negative Carotid Bruits Lungs: Clear to auscultation, Normal air movement Cardiovascular: Regular rate, No murmurs Abdomen: Bowel Sounds Present, Soft, Tender - Moderately tender in the RUQ, - - Incisions healing with minimal surrounding erythema Extremities: No edema, Capillary Refill Less than 3 Seconds Skin: Ulcer/ Wound - Left upper extremity- dehiscence of incision with eschar. Tenderness under the incision, Incision - Abdomen Musculoskeletal: No Tenderness to Palpation of Joints or Extremities Neurological: Neuro grossly intact Psych/Mental Status: Normal Affect, Appropriate Vital Signs Temp Pulse Resp BP Pulse Ox 97.6 F L 86 16 128/71 H 98 10/31/18 05:41 10/31/18 05:41 10/31/18 05:41 10/31/18 05:41 10/31/18 05:41 Oxygen Delivery Method Room Air Weight: 180 lb 15.992 oz Body Mass Index (BMI) 31.0 Finger Stick Blood Glucose 93 Intake and Output for Last 24 Hours Intake Total 639 / 639 Balance 639 / 639 Laboratory Tests Past 24 Hrs WBC 15.4 H RBC 4.37 Hgb 13.8 Hct 42.4 MCV 97.0 MCH 31.6 MCHC 32.5 RDW 12.5 RDW Differential 44.0 H WBC 9.8 RBC 3.72 L Hgb 12.0 Hct 36.3 L MCV 97.6 MCH 32.3 H WBC RBC Hgb Hct MCV MCH Assessment/Plan All Active Problems RUQ pain (Acute) Abnormal stress test (Acute) Chest pain (Acute) Partial obstruction of small intestine (Acute) Abdominal pain (Acute) I have been consulted in conjunction with Dr. Rodriugez. Impression: Postprocedural pain. Moderate amount of RUQ pain Plan: Discussed patient with Dr. Rodriguez. Will allow patient to start a diet. If food causes discomfort, Dr. Rodriguez will plan to perform an upper scope. If food does not cause any further discomfort, pain control will be the plan. Plan has been discussed with the patient. Patient has had the option to be transferred to [facility] to Dr. Gonsales. Patient prefers to be treated here. Patient does not have a follow-up with Dr. Gonsales for another 2 weeks. Sharonda will also evauate patinet and assist with treatment of the incision dehiscence of the left upper extremity. PAtient has ahd the opportunity to ask and have questions answered. PAtient verbally understands and agrees with the plan. Thank you for allowing us to participate in this patient's care. Code Visit Office Visits / Consults: [id number] IP Consult L3 10/31/18 1104 <Electronically signed by Nevin Montemayor PA-C> Date Nevin Montemayor PA-C Cosigner Signature (if applicable): Date CC: Arleen Greenberg; Av Rodriguez MD Signed CBC W/DIFF, AUTOMATED Collected: 10/31/2018 Status: F Source: [place] 5:32 AM [facility] REPOSITORY TYPE CODE TESTS RESULT OUT OF RANGE REFERENCE UNITS LAB L100.1000 4.4-11.0 K/mm3 Normal WBC 9.8 LAB L100.1200 4.2-5.4 M/mm3 Low RBC 3.72 LAB L100.1300 12.0-15.0 g/dl Normal HGB 12.0 LAB L100.1400 37-47 % Low HCT 36.3 LAB L100.1500 81-99 fL Normal MCV 97.6 LAB L100.1600 27.0-32.0 pg High MCH 32.3 LAB L100.1700 32-36 g/gl Normal MCHC 33.1 LAB L100.1810 11.6-14.6 % Normal RDW CV 12.0 LAB L100.1820 35.1-43.9 fl Normal RDW SD 41.1 LAB L100.1900 150-450 K/mm3 Normal PLT 234 LAB L100.2000 6.2-12.0 fl Normal MPV 9.9 LAB L100.2100 47-70 % Normal NEUT% 66.5 LAB L100.2200 19-41 % Normal LY% 23.6 LAB L100.2300 0-10 % Normal MONO% 5.4 LAB L100.2400 0-5 % Normal EO% 3.1 LAB L100.2500 0-1 % Normal BASO% 0.4 LAB L100.2550 0.0-0.9 % High IM GRAN % 1.000 Result Comment: IG% - Immature Granulocytes (promyelocytes, myelocytes and metamyelocytes) > 1% indicates that a LEFT SHIFT is Present. LAB L100.2620 2.0-7.7 X10 3/uL Normal Absolute Neut 6.5 LAB L100.2720 0.83-4.51 X10 3/ul Normal Absolute Lymph 2.31 Performed By: #### L100.0100 #### Laboratory [place], [address] COMPREHENSIVE METABOLIC Collected: 10/31/2018 Status: F Source: [facility] 5:32 AM [facility] REPOSITORY TYPE CODE TESTS RESULT OUT OF RANGE REFERENCE UNITS LAB L501.0100 74-106 mg/dL Normal GLU 87 Result Comment: Please note revised GLUCOSE reference range effective 2017. LAB L501.1000 7-18 mg/dL Normal BUN 12 LAB L501.1100 0.55-1.02 mg/dL Normal CREAT,SERUM 0.60 Result Comment: The validity of the calculated GFR AND GFRAA in patients over 70 years has not been determined. Clinical correlation is essential. LAB L501.1110 >60 mL/min Normal EST GFR 119 Result Comment: Non- GFR Calc LAB L501.1115 >60 mL/min Normal EST GFR - AA 144 Result Comment: GFR Calc LAB L501.1255 ml/min Normal Estimated CRCL 110.86 LAB L501.1300 10-20 RATIO BUN/CRE Normal 19.9 LAB L501.1500 6.4-8. g/dL Low 2 T PROT 6.1 LAB L501.1800 3.2-5. g/dL 0 ALB Normal 3.2 LAB L501.1950 2.2-4. g/dL 2 GLOB Normal 2.9 LAB L501.2000 0.9-2. RATIO 4 A/G Normal 1.1 LAB L501.2200 8.5-10 mg/dL Low .1 CA 8.0 LAB L501.4100 15-37 U/L AST Normal 25 Result Comment: Slight Hemolysis, Result may be falsely increased. LAB L501.4305 45-117 U/L Normal ALK P 56 LAB L501.4405 13-56 U/L Normal ALT 39 LAB L501.4600 0.20-1.00 mg/dL Normal T BILI 0.60 LAB L501.5300 136-145 mmol/L Normal NA 141 LAB L501.5600 3.5-5.1 mmol/L Normal K 4.1 Result Comment: Slight Hemolysis, Result may be falsely increased. LAB L501.5900 98-107 mmol/L High CL 111 LAB L501.6100 21.0-32.0 mmol/L Normal CO2 21.0 LAB L501.6200 5-15 Normal 9 GAP Performed By: #### L500.4050 #### Laboratory [address] [place], [address] HISTORY AND PHYSICAL Observed: 10/31/2018 Status: F Source: [place] EXAM 12:26 AM [facility] REPOSITORY [facility] Medical Records Department [address] [place] [address] History and Physical 10/30/18 2337 MR#: [id number] Acct: [id number] Name: NELSON HERRERA Rep #: [id number] : 1980 38 From: Sylvia Schuler PCP: Arleen Greenberg Status: ADM BRITNEY Y Location: [place] [address] Problem List (1) RUQ pain Status: Acute (2) Hepatic adenoma Status: Chronic (3) GERD (gastroesophageal reflux disease) Status: Chronic Qualifiers: Esophagitis presence: esophagitis presence not specified Qualified Code(s): K21.9 - Gastro-esophageal reflux disease without esophagitis (4) Tobacco use Status: Chronic (5) Obesity (BMI 30.0-34.9) Status: Chronic History of Present Illness Date of Admission: 10/30/18 Chief Complaint: RUQ pain The patient is a 38 y/o F w/ PMHx: GERD, Obesity, Tobacco use, recently noted incidental liver lesion on CT 05/2018 with follow-up eventual 10/20/18 microwave ablation of the lesion performed at [facility] by Dr. Josy Gonsales in addition to left upper extremity adenoma removal at the same time who presents to the on 10/31/18 with history of pain regimen previously used times 3 days following initial intervention with pain controlled following however onset today at approximately 6 PM prior to meal intake both dull ongoing ache and sharp stabbing intermittent 10 out of 10 pain to the right upper quadrant with radiation to the right shoulder with nausea with no emesis, ongoing eventually prompting ED evaluation. In the ED patient has noted opening of the lipoma resection region of the left upper extremity and notes that the suturing did not hold it had not contacted the surgeon again as she was awaiting for follow-up. She denies any discharge or worsened pain in this region. She denies any fevers but states that today with the onset of the severe right upper quadrant pain she did have chills. In the ED workup included T 97.7, heart rate 98, BP 140/90, respiratory rate 16, 99% on room air, CBC with W BC 15.4, hemoglobin 13.8, platelet 306 with left shift, CMP unremarkable, urinalysis with elevated specific gravity 1.025, ketones present was unremarkable, CT abdomen and pelvis with contrast with noted 5.8 x 3.1 diminished density in the right lobe of the liver including the region of previously seen enhancing mass consistent with recently treated lesion of the right lobe with no acute findings otherwise including abscess or fluid collection. ED physician did discuss patient presentation with the surgeon as patient preference to defer any transfer and surgeon agreed that she may remain at for further evaluation. He stated based on the CT scan and presentation likely elevated white count secondary to recent intervention but did not feel this is likely an infection especially with unremarkable imaging. Past Medical History Past Medical History (Chronic Problems): Chronic Problems Hepatic adenoma (Chronic) GERD (gastroesophageal reflux disease) (Chronic) Tobacco use (Chronic) Obesity (BMI 30.0-34.9) (Chronic) Status post appendectomy (Chronic) Status post hysterectomy (Chronic) Status post cholecystectomy (Chronic) Allergies latex Allergy (Mild, Verified 10/30/18 19:29) IRRIATION, OR IF SHE INGEST SHE VOMITS. hydromorphone HCl [From Dilaudid] Allergy (Verified 10/30/18 19:29) ITCHY LIKE FIREY ANTS ALL OVER HER SKIN Penicillins Allergy (Verified 10/30/18 19:29) Shortness of breath acetaminophen [From Darvocet-N] Adverse Reaction (Verified 10/30/18 19:29) Nausea meperidine [From Demerol] Adverse Reaction (Verified 10/30/18 19:29) Nausea propoxyphene [From Darvocet-N] Adverse Reaction (Verified 10/30/18 19:29) Nausea varenicline [From Chantix] Adverse Reaction (Verified 10/30/18 19:29) Other Home Medications: Ambulatory Orders Medication Instructions Recorded Cholestyramine (with Sugar) 4 gm PO DAILY 10/30/18 [Cholestyramine Packet] Omeprazole [Prilosec] 40 mg PO DAILY 10/30/18 Surgical History: appendectomy, cholecystectomy, hysterectomy, - - Appendectomy, cholecystectomy, hysterectomy, bilateral wrist cyst removal, right carpal tunnel surgery, recent right liver lobe adenoma ablation in addition to left upper extremity lipoma removal. Psychiatric History: No pertinent psych hx [employer] History: No pertinent [employer] history Lives: Spouse/ Significant Other - She lives with her boyfriend and son. Smoking Status: Current every day smoker - Patient smokes proximally 1/2 pack/day cigarette tobacco. Tobacco Use: Cigarettes Alcohol: Occasional Drugs: None - *Family History Maternal History Items: - - Patient is adopted and states she does not know any of her maternal or paternal family history. Paternal History Items: - - Patient is adopted and states she does not know any of her maternal or paternal family history. Review of Systems Constitutional: Reports: Anorexia, Chills, Malaise, Weakness, Fatigue. Denies: Fever, Weight Change HEENT: Denies: Head Aches, Sinus Congestion, Sinus Drainage Cardiovascular: Denies: Chest Pain, Palpitations Respiratory: Denies: Cough, Shortness of breath at rest, Sputum production Gastrointestinal: Reports: Abdominal Pain, Nausea. Denies: Vomiting Genitourinary: Denies: Dysuria Musculoskeletal: Denies: Joint Pain, Joint Tenderness Skin: Reports: Skin Changes, Wounds. Denies: Rash Neurological: Denies: Numbness, Tingling, Focal weakness Psychiatric: Denies: Anxiety, Depression, Homicidal Ideations, Suicidal Ideations Hematologic/ Lymphatic: Denies: Easy Bruising, Easy Bleeding VTE Information - Inpt Only VTE Present on Admission: No VTE Mechan Device Prophylaxis: SCD's VTE Pharm Prophylaxis ordered?: Yes Patient Problems: Active and Suspected Problems RUQ pain (Acute) Subjective: Seated upright in the ED bed, fatigued appearance, no acute distress. Objective: Physical Examination: General: awake, alert, oriented x 3 and cooperative, seated upright in the ED bed in no apparent distress. Skin: normal color, turgor, no icterus, cyanosis except recent laparoscopic abdominal surgery with Steri-Strips over incisions, well-appearing, no discharge or drainage or erythema, left upper extremity status post lipoma resection with dehisced incision, no discharge, no tenderness to palpation, no market erythema of the region. HEENT: AT/NC, EOMI, PERRLA, dry MM, no carotid bruits or JVD noted. Lungs: CTA bilaterally, moderate effort, mild decrease BL bases, no rales, ronchi or wheezing. Heart: Regular rate and rhythm; no gallop, rub audible. Abdomen: soft, right upper quadrant tenderness palpation, voluntary guarding, nondistended, normal bowel sounds, difficult to assess HSM secondary to discomfort with examination. Extremities: no cyanosis, clubbing, or edema. Neurological: patient awake, alert, oriented x 3; cognitive function intact; pupils equally reactive to light and accomodation; cranial nerves II-XII grossly normal, moving all 4 extremities, no focal deficits, strength moderately globally decreased secondary to acute presentation. Psychiatric: affect appears normal, fatigued, no acute evidence of depressive or anxiety feelings. - Physical Exam Vital Signs Temp Pulse Resp BP Pulse Ox 97.7 F L 92 18 130/80 H 97 10/30/18 19:27 10/30/18 23:28 10/30/18 23:28 10/30/18 23:28 10/30/18 23:28 Oxygen Delivery Method Room Air Weight: 180 lb 8.937 oz Body Mass Index (BMI) 30.9 Finger Stick Blood Glucose 93 Laboratory Tests Past 24 Hrs WBC 15.4 H RBC 4.37 Hgb 13.8 Hct 42.4 MCV 97.0 MCH 31.6 MCHC 32.5 RDW 12.5 RDW Differential 44.0 H WBC RBC Hgb Hct MCV MCH MCHC RDW RDW Differential Plt Count MPV Assessment/Plan All Active Problems RUQ pain (Acute) Abnormal stress test (Acute) Chest pain (Acute) Partial obstruction of small intestine (Acute) Abdominal pain (Acute) The patient is a 38 y/o F w/ PMHx: GERD, Obesity, Tobacco use, recently noted incidental liver lesion on CT 05/2018 with follow-up eventual 10/20/18 microwave ablation of the lesion performed at [facility] by Dr. Josy Gonsales in addition to left upper extremity adenoma removal at the same time who presents to the on 10/31/18 with history of pain regimen previously used times 3 days following initial intervention with pain controlled following however onset today at approximately 6 PM prior to meal intake both dull ongoing ache and sharp stabbing intermittent 10 out of 10 pain to the right upper quadrant with radiation to the right shoulder with nausea with no emesis, ongoing eventually prompting ED evaluation. (1) RUQ Pain, Unclear Etiology w/ Recent R Liver Lobe Adenoma Ablation w/ Leukocytosis: ED workup included T 97.7, heart rate 98, BP 140/90, respiratory rate 16, 99% on room air, CBC with W BC 15.4, hemoglobin 13.8, platelet 306 with left shift, CMP unremarkable, urinalysis with elevated specific gravity 1.025, ketones present was unremarkable, CT abdomen and pelvis with contrast with noted 5.8 x 3.1 diminished density in the right lobe of the liver including the region of previously seen enhancing mass consistent with recently treated lesion of the right lobe with no acute findings otherwise including abscess or fluid collection. ED physician did discuss patient presentation with the surgeon as patient preference to defer any transfer and surgeon agreed that she may remain at for further evaluation. He stated based on the CT scan and presentation likely elevated white count secondary to recent intervention but did not feel this is likely an infection especially with unremarkable imaging. Will admit to MS, maintain NPO status until pain and nausea improved, continue IVFs, IV PPI in interim, if onset fever would obtain blood cultures, initiate BSA given recent interventions with ID and surgery evaluations if appropriate at that time, plan repeat CBC, CMP in a.m. If pain improved, no onset fevers, unremarkable labs and doing well would initiate diet and if tolerated discharge to home with reassessment per her surgeon. (2) Recent LUE Lipoma Resection w/ incisional dehiscence: Noted dehiscence following procedure, patient denies any discharge or pain to the region, given appearance likely will need follow-up care, possibly revision, wound RN consulted. (3) Tobacco Abuse: Encouraged cessation, inpatient consultation per RT, NR if desired. (4) Obesity: Weight loss and lifestyle changes encouraged. (5) GERD: IV PPI. (6) DVT prophylaxis: SCDs, lovenox. Code Visit OBSV E AIDA M: [id number] Initial observation care L3 10/31/18 0026 <Electronically signed by Sylvia Schuler > Date Sylvia Schuler Cosigner Signature: Date (if applicable) CC: Sylvia Schuler; Arleen Greenberg Signed EMERGENCY DEPARTMENT Observed: 10/31/2018 Status: F Source: [facility] SUMMARY 12:02 AM [facility] REPOSITORY [facility] Medical Records Department [address] [place] [address] Emergency Department Summary 10/30/181957 MR#: [id number] Acct: [id number] Name: NELSON HERRERA Rep #: [id number] : 1980 38 From: Bertha Mac MD PCP: Arleen Greenberg Status: ADM BRITNEY - ER Visit Summary Date of Service: 10/30/18 Chief Complaint: Right-sided abdominal pain History of Present Illness: The patient is a 38 F who presents for acute onset of right-sided abdominal pain 2 hours ago. Patient had a microwave ablation on her liver on October 19 performed at [facility]. She has had no issues until tonight. She was sitting when she had sudden onset of right upper quadrant abdominal pain radiating into the right back, right shoulder and right neck. Patient has associated nausea. It is a sharp stabbing pain with underlying constant ache. She denies any vomiting, diarrhea, chest pain, fever, shortness of breath, cough or congestion, urinary symptoms. Patient is status post cholecystectomy and hysterectomy. Surgery was performed for a liver adenoma. Physical Examination: Vital signs: afebrile, hemodynamically stable, no hypoxia on room air General: well nourished, well developed, in no distress Skin: warm, dry, no rash, no pallor HEENT: normocephalic and atraumatic; PERRL, EOMI, moist mucous membranes Cardiovascular: regular rate and rhythm without murmurs, no peripheral edema, 2+ pulses all distal extremities Respiratory: No increased work of breathing, lungs are clear to auscultation bilaterally, no rales, rhonchi or wheezing Abdominal: Abdomen is soft, tender in the right upper quadrant with normoactive bowel sounds, referred pain to the right upper quadrant with palpation of the right lower quadrant, no guarding or rebound, no masses, well-healing surgical incisions on the abdomen MSK: Moves all extremities, no deformities, normal strength, healing biopsy site on the left upper arm at site of lipoma removal, granulation tissue present, no surrounding erythema, tenderness or induration Neuro: Awake and alert, oriented 4. No facial droop, sensation and motor function intact and symmetric Test Results: Abnormal Lab Results WBC 15.4 H RBC 4.37 Hgb 13.8 Hct 42.4 MCV 97.0 MCH 31.6 MCHC 32.5 RDW 12.5 RDW Differential 44.0 H WBC RBC Hgb Hct MCV MCH MCHC RDW RDW Differential Plt Count MPV Clinical Impression(s) from Imaging Studies Abdomen/Pelvis CT 10/30/18 21:15 IMPRESSION: Abnormal liver consistent with recently treated lesion in the right lobe. No dilated loops of bowel. No hydronephrosis. No fluid collection. Electronically Signed: Romaine Chand MD at 22:24 EST , Service support , Medications Given Discontinued Medications Acetaminophen (Tylenol) 325 mg PO X1 ONE Stop: 10/30/18 22:45 Sodium Chloride () 1,000 mls @ 1,000 mls/hr IV .Q1H ONE Stop: 10/30/18 20:56 Last Admin: 10/30/18 20:27 Dose: 1,000 mls/hr Morphine Sulfate () 4 mg IV X1 ONE Stop: 10/30/18 19:58 Last Admin: 10/30/18 20:28 Dose: 4 mg Morphine Sulfate () 4 mg IV X1 ONE Stop: 10/30/18 21:43 Last Admin: 10/30/18 21:57 Dose: 4 mg Ondansetron HCl (Zofran) 4 mg IV X1 ONE Stop: 10/30/18 19:58 Last Admin: 10/30/18 20:28 Dose: 4 mg Oxycodone HCl (Oxyir) 5 mg PO X1 ONE Stop: 10/30/18 22:45 Emergency Department Course and Treatment: She was given IV fluids, morphine and Zofran for symptomatic relief. Abs were performed showing a leukocytosis of 15.4 with bandemia. No electrolyte derangements, normal hepatic function, normal lipase. Lactate was normal at 0.9. Urine showed no signs of infection. Patient had adequate pain control with morphine but did require an additional dose. Patient was discussed with her surgeon Dr. Josy Gonsales from [facility], we discussed imaging of the patient. Patient had a CT abdomen and pelvis with IV contrast performed. It showed a liver hypodensity consistent with post ablation changes. These results were discussed with Dr. Gonsales, and there were no signs of abscess, free air or hematoma. Patient has no hypoxia, tachycardia or tachypnea, dyspnea that would be concerning for pulmonary embolism, and she does have right upper quadrant tenderness consistent with this being an abdominal process rather than an intrathoracic process. He stated given the findings on the CT scan, the pain then is likely post procedural pain, and pain control is the goal. Patient was given the options of transfer to [facility] for further pain control, admission for pain management, or attempt to get her pain controlled with oral analgesia so that she can be discharged home. At that time she would then follow-up with Dr. Gonsales outpatient later this week. She wanted to try outpatient pain control. She was given oxycodone and Tylenol, which is what she was taking postoperatively last week. Reevaluation, patient had minimal improvement of her pain with the oxycodone and Tylenol, but now was having nausea. Patient was given ODT Zofran, and after a short time stated she did not think she was felt well enough to go home. She does not want to be transferred to [facility]. Patient was discussed with Dr. Schuler and will be admitted as observation status for postprocedural pain control. Treatment Plan: [] Disposition: [] Impression: Post procedural pain status post liver adenoma ablation This note was generated with SFOXation software. It may contain incorrect words, spelling, and punctuation that were not noted in review of the chart prior to signing ED Disposition - Plan for ED Patient: Chief Complaint: Abd Pain Referrals: Town Doctor,Out of [NON-STAFF] - What to do if you have Problems For any increased pain, shortness of breath, bleeding, nausea or vomiting, chest pain, or any unexpected problems, contact your Primary Care Provider. Call [facility] ([phone]) or report to the closest Emergency Room. Call 911 if necessary. 10/31/18 0002 <Electronically signed by Bertha Mac MD> Date Bertha Mac MD Cosigner Signature (If Indicated): Date CC: Arleen Greenberg ABDOMEN/PELVIS W IV CONT Observed: 10/30/2018 Status: F Source: [facility] 9:16 PM [facility] REPOSITORY [facility] Imaging Services [address] [place] [id number] Abdomen/Pelvis W IV Cont ONLY MR#: [id number] Acct: [id number] Name: NELSON HERRERA Rep #: [id number] : 1980 F 38 From: Romaine Chand MD PCP: Arleen Greenberg Status: REG ER Study: Abdomen/Pelvis W IV Cont ONLY Date of Exam: 10/30/18 Exam# [id number] Ordering Dr: Bertha Mac MD STUDY: CT ABDOMEN AND PELVIS WITH CONTRAST REASON FOR EXAM: Female, 38 years old. Abdominal pain. Right upper quadrant pain. Recent ablation of liver mass. RADIATION DOSAGE (If Supplied By Facility): CTDIvol = ( 16.48 ) mGy, DLP = ( 1414.64 ) mGycm TECHNIQUE: Transaxial images were obtained from the dome of the diaphragm to the symphysis pubis without oral contrast. 100 ml of Isovue 300 contrast was administered. Sagittal and coronal images were reconstructed. Individualized dose optimization techniques were used for this CT. COMPARISON: June 10, 2014 CT abdomen. May 14, 2018 CT chest. FINDINGS: The visualized lung bases are unremarkable. The visualized portions of the heart are within normal limits. There is 5.8 x 3.1 cm diminished density in the right lobe of the liver including the region of previously seen enhancing mass. There is non-visualization of the gallbladder, which may be secondary to either contraction or a prior cholecystectomy. Normal spleen. Normal pancreas. Normal bilateral adrenal glands. Small cysts in the right kidney. Normal left kidney. Normal visualized stomach. Normal small intestine. Normal colon. There are surgical clips in the region of the appendix consistent with a prior appendectomy. Normal abdominal aorta. Normal inferior vena cava. Normal retroperitoneum. Normal urinary bladder. There is absence of the uterus consistent with a prior hysterectomy. There is a 2.0 cm left adnexal cyst. There is no free fluid in the abdomen or pelvis. There is a small umbilical hernia containing fat. Normal osseous structures. CT/Abdomen/Pelvis W IV Cont ONLY IMPRESSION: Abnormal liver consistent with recently treated lesion in the right lobe. No dilated loops of bowel. No hydronephrosis. No fluid collection. Electronically Signed: Romaine Chand MD at 22:24 EST , Service support , CC: Arleen Greenberg; Bertha Mac MD Inverter And Clipper: Signed LACTIC ACID Collected: 10/30/2018 Status: F Source: [facility] 8:56 PM [facility] REPOSITORY Order Comment: Yes/No query for Sepsis Lactate Rule Y TYPE CODE TESTS RESULT OUT OF RANGE REFERENCE UNITS LAB L503.6005 0.4-2.0 mmol/L Normal LACTIC ACID 0.9 Performed By: #### L503.6005 #### [place], [address] COMPREHENSIVE METABOLIC Collected: 10/30/2018 Status: F Source: [facility] 8:35 PM [facility] REPOSITORY TYPE CODE TESTS RESULT OUT OF RANGE REFERENCE UNITS LAB L501.0100 74-106 mg/dL Normal GLU 81 Result Comment: Please note revised GLUCOSE reference range effective 2017. LAB L501.1000 7-18 mg/dL Normal BUN 18 LAB L501.1100 0.55-1.02 mg/dL Normal CREAT,SERUM 0.76 Result Comment: The validity of the calculated GFR AND GFRAA in patients over 70 years has not been determined. Clinical correlation is essential. LAB L501.1110 >60 mL/min Normal EST GFR 90 Result Comment: Non- GFR Calc LAB L501.1115 >60 mL/min Normal EST GFR - AA 109 Result Comment: GFR Calc LAB L501.1255 ml/min Normal Estimated CRCL 87.52 LAB L501.1300 10-20 RATIO High BUN/CRE 23.6 LAB L501.1500 6.4-8. g/dL High 2 T PROT 8.5 LAB L501.1800 3.2-5. g/dL Normal 0 ALB 4.6 LAB L501.1950 2.2-4. g/dL Normal 2 GLOB 3.9 LAB L501.2000 0.9-2. RATIO Normal 4 A/G 1.2 LAB L501.2200 8.5-10 mg/dL Normal .1 CA 9.6 LAB L501.4100 15-37 U/L Normal AST 18 LAB L501.4305 45-117 U/L Normal ALK P 83 LAB L501.4405 13-56 U/L Normal ALT 49 LAB L501.4600 0.20-1 mg/dL Normal .00 T BILI 0.20 LAB L501.5300 136-14 mmol/L Normal 5 NA 136 LAB L501.5600 3.5-5. mmol/L Normal 1 K 3.7 LAB L501.5900 98-107 mmol/L Normal CL 104 LAB L501.6100 21.0-3 mmol/L Normal 2.0 CO2 22.0 LAB L501.6200 5-15 Normal GAP 10 Performed By: #### L500.4050, L501.2450 #### Laboratory [address] [place], [address] LIPASE Collected: 10/30/2018 Status: F Source: [facility] 8:35 PM [facility] REPOSITORY TYPE CODE TESTS RESULT OUT OF RANGE REFERENCE UNITS LAB L501.2450 73-393 U/L Normal LIPASE 140 Performed By: #### L500.4050, L501.2450 #### Laboratory [address] [place], [place], [id number] URINALYSIS, COMPLETE Collected: 10/30/2018 Status: F Source: [facility] 8:15 PM [facility] REPOSITORY Order Comment: How was Urine Obtained? CLEAN CATCH TYPE CODE TESTS RESULT OUT OF RANGE REFERENCE UNITS LAB L400.3000 Yellow COLOR Normal Yellow LAB L400.3050 Clear Normal CLARITY Clear LAB L400.3200 Normal mg/dl Normal GLUCOSE, UR Normal LAB L400.3300 Negative mg/dL Normal BILIRUBIN URINE Negative LAB L400.3400 Negative mg/dl High KETONE UR 150 Result Comment: CRITICAL VALUE *H CALLED TO LUIS ULLOA 10/30/182032 BY SYLVIE LAB L400.3465 1.002-1.030 Normal SP.GR. DIPSTX 1.025 LAB L400.3550 5.0 - 8.0 pH Normal UR 5.0 LAB L400.3600 Negative mg/dl Normal PROT DIPSTX Negative LAB L400.3700 Normal mg/dl Normal UROBILI Normal LAB L400.3750 Negative Normal NITRITE UR Negative LAB L400.3780 Negative /ul Normal OCCULT Negative BLOOD-UR LAB L400.3800 Negative /ul Normal LEUK ESTERASE Negative LAB L400.4050 0-5 /hpf 0 Normal WBC SEEN LAB L400.4100 0-5 /hpf 0 Normal RBC-UA SEEN LAB L400.4150 5-10 /hpf Normal SQUAM EPI 0-5 SEEN LAB L400.4300 None Seen /hpf 0 Normal BACTERIA SEEN LAB L400.4350 <or=2+ /hpf 0 Normal MUCUS, URINE SEEN Performed By: #### L400.0001 #### Laboratory [address] [place], [address] CBC W/DIFF, AUTOMATED Collected: 10/30/2018 Status: F Source: [facility] 7:36 PM [facility] REPOSITORY TYPE CODE TESTS RESULT OUT OF RANGE REFERENCE UNITS LAB L100.1000 4.4-11.0 K/mm3 High WBC 15.4 LAB L100.1200 4.2-5.4 M/mm3 Normal RBC 4.37 LAB L100.1300 12.0-15.0 g/dl Normal HGB 13.8 LAB L100.1400 37-47 % Normal HCT 42.4 LAB L100.1500 81-99 fL Normal MCV 97.0 LAB L100.1600 27.0-32.0 pg Normal MCH 31.6 LAB L100.1700 32-36 g/gl Normal MCHC 32.5 LAB L100.1810 11.6-14.6 % Normal RDW CV 12.5 LAB L100.1820 35.1-43.9 fl High RDW SD 44.0 LAB L100.1900 150-450 K/mm3 Normal PLT 306 LAB L100.2000 6.2-12.0 fl Normal MPV 10.9 LAB L100.2100 47-70 % Normal NEUT% 67.8 LAB L100.2200 19-41 % Normal LY% 23.7 LAB L100.2300 0-10 % Normal MONO% 4.7 LAB L100.2400 0-5 % Normal EO% 2.0 LAB L100.2500 0-1 % Normal BASO% 0.4 LAB L100.2550 0.0-0.9 % High IM GRAN % 1.400 Result Comment: IG% - Immature Granulocytes (promyelocytes, myelocytes and metamyelocytes) > 1% indicates that a LEFT SHIFT is Present. LAB L100.2620 2.0-7.7 X10 3/uL High Absolute Neut 10.4 LAB L100.2720 0.83-4.51 X10 3/ul Normal Absolute Lymph 3.64 Performed By: #### L100.0100 #### Laboratory [address] [facility] [place], [address] NURSING PROG Observed: 10/19/2018 Status: COMPLETED Source: [facility] 7:30 PM [facility] OTHER [facility]AMPUS REPOSITORY HNO ID: [id number] Author: Zabrina (Rn) KB Bond Service: Nursing Author Type: Registered Nurse Type: Nursing Progress Note Filed: 10/19/2018 8:33 PM Note Text: Dr. Olivas to bedside suturing left upper extremity incision. PROCEDURE Observed: 10/19/2018 Status: COMPLETED Source: [facility] 7:26 PM [facility] REPOSITORY HNO ID: [id number] Author: Russ Olivas MD Service: General Surgery Author Type: Resident Type: Procedures Filed: 10/19/2018 7:27 PM Note Text: LUE incision closure. Pt had 3 cm incision to LUE. Area was prepped with chlorhexidine and allowed to dry. 5mL 1% lidocaine was applied circumferentially around wound. 3 4-0 nylon simple interrupted sutures were used to close the wound with good approximation. Pt tolerated the procedure well. Russ Olivas General Surgery PGY-1 10/19/18 7:27 PM NURSING PROG Observed: 10/19/2018 Status: COMPLETED Source: [facility] 6:06 PM [facility] REPOSITORY HNO ID: [id number] Author: Aspen Pacheco) Tara RN Service: (none) Author Type: Registered Nurse Type: Nursing Progress Note Filed: 10/19/2018 6:09 PM Note Text: Notified Surgery Resident Dr Olivas, Patient Feeling Better And Wants To Go Home. Notified Dr Olivas Of Patients Steri Strips Falling Off JUANJO Surgical Site. Awaiting Dr Olivas To Change dresg JUANJO And Give Ok To Be Discharged Home . NURSING PROG Observed: 10/19/2018 Status: COMPLETED Source: [facility] 5:35 PM [facility] REPOSITORY HNO ID: [id number] Author: Aspen Pacheco) Tara RN Service: (none) Author Type: Registered Nurse Type: Nursing Progress Note Filed: 10/19/2018 5:36 PM Note Text: Ambulated and Tolerated Well,m Up To Chair, States Pain Is Much Better Rates Pain #6 For RUQ And Right Shoulder NURSING PROG Observed: 10/19/2018 Status: COMPLETED Source: [facility] 4:59 PM [facility] OTHER [place] REPOSITORY HNO ID: [id number] Author: Aspen WrightRn) Tara, RN Service: (none) Author Type: Registered Nurse Type: Nursing Progress Note Filed: 10/19/2018 5:02 PM Note Text: Surgery At Bedside Encouraged Patient To Walk And Get Up In Chair, Due To gases} ANES POST Observed: 10/19/2018 Status: COMPLETED Source: [facility] 4:31 PM [facility] REPOSITORY HNO ID: [id number] Author: Juni Ayon Service: Anesthesiology Author Type: Physician Type: Anesthesia PostOp Filed: 10/19/2018 4:31 PM Note Text: POST ANESTHESIA EVALUATION NOTE SERVICE DATE: 10/19/2018 SERVICE TIME: 4:31 PM : 1980 Vitals: 10/19/18 0920 10/19/18 1155 10/19/18 1315 Temp: 36.6 ?C (97.9 ?F) 36.2 ?C (97.2 ?F) 36.2 ?C (97.2 ?F) 10/19/18 1430 10/19/18 1445 10/19/18 1500 10/19/18 1515 BP: 127/81 136/83 142/86 137/92 10/19/18 1430 10/19/18 1445 10/19/18 1500 10/19/18 1515 Pulse: 66 80 88 90 10/19/18 1430 10/19/18 1445 10/19/18 1500 10/19/18 1515 Resp: 14 14 23 20 10/19/18 1430 10/19/18 1445 10/19/18 1500 10/19/18 1515 SpO2: 99% 99% 99% 98% Validated Vital Signs: Yes POST ANES STATUS: No apparent anesthetic complications. The patient is appropriately hydrated with stable respiratory and cardiovascular status. Patient has safe and adequate airway control. The patient has appropriate pain relief and no significant post operative nausea or vomiting. The patient has achieved baseline mental status. Intra-Operative Events: No Significant Anesthesia Events Further assessment by Anesthesia Service: None Other Remarks: SIGNATURE: Juni Ayon MD PATIENT NAME: Nelson Herrera DATE: October 19, 2018 TIME: 4:31 PM PAGER/CONTACT #: NURSING PROG Observed: 10/19/2018 Status: COMPLETED Source: [facility] 4:30 PM [facility] OTHER [facility]AMP[facility] REPOSITORY HNO ID: [id number] Author: Aspen (Rn) KB Pacheco Service: (none) Author Type: Registered Nurse Type: Nursing Progress Note Filed: 10/19/2018 4:46 PM Note Text: Patient Informed She Would Probably Stay in PACU Over night Due To Lack Of Floor Beds, Patient Expressed desire To go Home In stead. Notified Dr Colón Of Patient's Desire To Go Home. Patient Had Been Asleep Prior To Discussion. NURSING PROG Observed: 10/19/2018 Status: COMPLETED Source: [facility] 3:21 PM [facility] [place] REPOSITORY HNO ID: [id number] Author: Trudy Rodas RN Service: Critical Care Author Type: Registered Nurse Type: Nursing Progress Note Filed: 10/19/2018 3:23 PM Note Text: Nursing Progress Note Patient Name: Nelson Herrera Patient Location: [place] Daily Note:patient anxiety increasing C/o right shoulder pain. Unable to set still Order noted versed given. This note was completed by: Trudy Rodas RN NURSING PROG Observed: 10/19/2018 Status: COMPLETED Source: [facility] 2:28 PM [facility] REPOSITORY HNO ID: [id number] Author: Trudy Rodas RN Service: Critical Care Author Type: Registered Nurse Type: Nursing Progress Note Filed: 10/19/2018 2:29 PM Note Text: Nursing Progress Note Patient Name: Nelson Herrera Patient Location: [place] Daily Note:orders noted This note was completed by: Trudy Rodas RN NURSING PROG Observed: 10/19/2018 Status: COMPLETED Source: [facility] 2:26 PM [facility] OTHER [place] REPOSITORY HNO ID: [id number] Author: Trudy Rodas RN Service: Critical Care Author Type: Registered Nurse Type: Nursing Progress Note Filed: 10/19/2018 2:26 PM Note Text: Nursing Progress Note Patient Name: Nelson Herrera Patient Location: [place] Daily Note:Dr Fernandez text paged for medications/orders This note was completed by: Trudy Rodas RN NURSING PROG Observed: 10/19/2018 Status: COMPLETED Source: [facility] 2:03 PM [facility] REPOSITORY HNO ID: [id number] Author: Aspen WrightRn) KB Pacheco Service: (none) Author Type: Registered Nurse Type: Nursing Progress Note Filed: 10/19/2018 2:04 PM Note Text: {Confirmed With Surgery Resident, Patient Will be Stay in hospital, awaiting Completion Of admission Orders NURSING PROG Observed: 10/19/2018 Status: COMPLETED Source: [facility] 1:54 PM [facility] REPOSITORY HNO ID: [id number] Author: Aspen WrightRn) Tara, RN Service: (none) Author Type: Registered Nurse Type: Nursing Progress Note Filed: 10/19/2018 1:56 PM Note Text: }Paged Out Surgery Due To Cont Pain, awaitting Return Call, DR Fernandez At Bedside Aware of Pain, ABD Soft distended, Lap Site intact No Bleeding Or Hematoma noted NURSING PROG Observed: 10/19/2018 Status: COMPLETED Source: [facility] 1:06 PM [facility] REPOSITORY HNO ID: [id number] Author: Aspen WrightRn) Tara, RN Service: (none) Author Type: Registered Nurse Type: Nursing Progress Note Filed: 10/19/2018 1:08 PM Note Text: DR Colón At Bedside, Aware Of Patient's C/O Tableau Lead RUQ Pain, Will Cont To Monitor NURSING PROG Observed: 10/19/2018 Status: COMPLETED Source: [facility] 12:35 PM [facility] REPOSITORY HNO ID: [id number] Author: Aspen WirghtRn) Tara, KB Service: (none) Author Type: Registered Nurse Type: Nursing Progress Note Filed: 10/19/2018 1:06 PM Note Text: DR Fernandez Called for Additional Pain Medication, servere Pain RUQ pain. Right Shoulder Pain Much Less Than Before. Will Cont t To medicate for comfort BRIEF OP NOT Observed: 10/19/2018 Status: COMPLETED Source: [facility] 12:00 PM [facility] REPOSITORY HNO ID: [id number] Author: Braeden Colón Service: General Surgery Author Type: Resident Type: Brief Op Note Filed: 10/19/2018 12:00 PM Note Text: BRIEF OPERATIVE / PROCEDURE NOTE LOG ID: [id number] SURGERY/PROCEDURE DATE: 10/19/2018 INCISION/PROCEDURE START TIME: 10:33 AM INCISION CLOSE/PROCEDURE END TIME: 11:44 AM SURGEON(S)/PROCEDURALIST(S) AND INK JET OPERATOR(S): Surgeon(s) and Role: * Josy Gonsales - Primary * Braeden Colón - Resident - Assisting No Additional Staff SURGERY/PROCEDURE(S): Laparoscopic liver ablation, excision of left upper arm lipoma ANESTHESIA: General FINDINGS: satisfactory ablation ESTIMATED BLOOD LOSS: 15cc SPECIMENS: lipoma COMPLICATIONS: None PRE-OP/PRE-PROCEDURE DIAGNOSIS: hepatic adenoma POST-OP/POST-PROCEDURE DIAGNOSIS: Hepatic adenoma [D13.4]Lesion of upper extremity [L98.9] SIGNATURE: Braeden Colón MD PATIENT NAME: Nelson Herrera DATE: October 19, 2018 TIME: 12:00 PM PAGER/CONTACT #: [id number] HISTORY PHYSICAL Observed: 10/19/2018 Status: COMPLETED Source: [facility] 9:32 AM [facility] REPOSITORY HNO ID: [id number] Author: Braeden Colón Service: General Surgery Author Type: Resident Type: HANDP Filed: 10/19/2018 9:33 AM Note Text: Attestation signed by Josy Gonsales at 10/19/2018 9:38 AM Attending Note I personally saw and examined the patient. I reviewed the resident's note. I agree with the resident's assessment and plan with the following revisions and/or additions: agree Signature: Josy Gonsales MD Date: 10/19/2018 Time: 9:38 AM UPDATED HISTORY AND PHYSICAL EXAMINATION SERVICE DATE: 10/19/2018 SERVICE TIME: 9:33 AM PHYSICAL EXAM MUST BE COMPLETED ON ADMISSION The History and Physical (completed in the past 30 days) has been reviewed and the patient has been examined. The contents accurately reflect the patient's condition with the following additions or revisions since the HANDP was completed. Examination indicates no changes. This HANDP can be found in the Electronic Medical Record dated 10/12. SIGNATURE: Braeden Colón MD PATIENT NAME: Nelson Herrera DATE: October 19, 2018 TIME: 9:33 AM PAGER: [phone] ANES PREOP Observed: 10/19/2018 Status: COMPLETED Source: [facility] 8:49 AM [facility] REPOSITORY [facility] ID: [id number] Author: Best Fernandez Service: Anesthesiology Author Type: Physician Type: Anesthesia PreOp Filed: 10/19/2018 9:39 AM Note Text: ANESTHESIOLOGY DAY OF SURGERY NOTE SERVICE DATE: 10/19/2018 SERVICE TIME: 8:49 AM : 1980 Procedure(s) (LRB): LAPAROSCOPY W/ RF ABLATION OF LIVER TUMOR (N/A) Surgeon(s): Josy Gonsales Estimated body mass index is 30.9 kg/m? as calculated from the following: Height as of this encounter: 162.6 cm (5' 4). Weight as of this encounter: 81.6 kg (180 lb). Most recent hematocrit and potassium results: Hematocrit 43.0 10/12/2018 Potassium 4.2 05/04/2016 ANES DOS/PREOP NOTE: Vitals: 10/18/18 1500 Weight: 81.6 kg (180 lb) Height: 162.6 cm (5' 4) ACTIVE PROBLEM LIST Insomnia Vitamin D Deficiency Ganglion Cyst of Dorsum of Right Wrist Weakness of Right Arm Chronic Fatigue Tobacco Abuse Trigger Thumb of Right Hand Right Carpal Tunnel Syndrome PAST MEDICAL HISTORY Diagnosis Date - Abdominal pain - Anemia - Dyspepsia - Endometriosis - Fatty liver - IBS (irritable bowel syndrome) - Liver mass - Post-cholecystectomy syndrome - RUQ pain 06/10/14 - Vitamin D deficiency PAST SURGICAL HISTORY Procedure Laterality Date - COLONOSCOPY W/BIOPSY 2013 - CYST/MOLE REMOVAL Bilateral Left wrist, right hand - EGD DILATION - ENDOSCOPY PROC 2013 bxs - LAP CHOLECYSTECT/CHOLANGIOGRAPHY 04/24/14 Normal IOC - PAST SURGICAL HISTORY OF appendectomy - PAST SURGICAL HISTORY OF dental procedures - PAST SURGICAL HISTORY OF diagnostic laparoscopy - PAST SURGICAL HISTORY OF Carpal tunnel release, right - PAST SURGICAL HISTORY OF as a child 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 Current Outpatient Prescriptions on File Prior to Encounter: VITAMIN D 50,000 unit capsule Take 1,000 Units by mouth once each week. Estazolam 1 mg tablet TAKE ONE TABLET BY MOUTH nightly NEEDED FOR SLEEP FOR UP TO 30 DAYS Omeprazole 40 mg capsule Take 40 mg by mouth once daily. Cholecalciferol, Vitamin D3, 1,000 unit cap Take 1,000 Units by mouth once daily. cholestyramine (QUESTRAN) 4 gram packet Take by mouth as directed. HYDROcodone-acetaminophen (NORCO) 5-325 mg per tablet Take 1 tablet by mouth every 4 hours as needed. (Patient not taking: Reported on 07/21/2018 ) gabapentin (NEURONTIN) 100 mg capsule Increase as directed up to 3 capsules three times daily No current facility-administered medications for this encounter. Allergies: ALLERGIES Allergen Reactions - Penicillins Hives, Anaphylaxis, Shortness of Breath - Chantix [Vareniclin* Other: See Comments Mood changes (irritability), flu like symptoms, body aching - Demerol [Meperidine* Other: See Comments Nausea - Dilaudid [Hydromorp* Mental Status Change - Latex Other: See Comments my skin starts pealing off DOS EXAM: Adequate NPO status: Yes Anesthetic risks, benefits, alternatives, personnel and consent discussed: Yes Patient agrees to proceed: Yes Previous Anesthesia: No history of adverse event. Airway Assessment: MP 2; Neck ROM: Full ROM without neurologic symptoms; Airway Evaluation: No significant abnormalities Symptoms of Sleep Apnea: None Dentition: Teeth intact Chipped, loose and/or missing Additional Physical Exam: Lungs: Patient health status unchanged since recent history and physical. See history and physical for exam findings. Cardiac: Patient health status unchanged since recent history and physical. See history and physical for exam findings. Additional Pertinent Findings: N/A Blood Products: Not anticipated for this procedure. Anesthetic Plan: General, Standard ASA Monitors Pain Management Plan: Parenteral or Oral ASA Class: 2 Other Medical Problems: None. S/p hysterectomy. Chronic Beta Esperanza medication administered within 24 hours: N/A I have interviewed and examined the patient. I have reviewed the medical record and/or the pre-anesthesia evaluation, pertinent labs, and test results. Significant changes in the patient's condition since the History and Physical, not otherwise documented in primary service progress notes: No This contains updated information obtained within 48 hours of Surgery/Procedure. SIGNATURE: Best Fernandez MD PATIENT NAME: Nelson Herrera DATE: October 19, 2018 TIME: 8:49 AM CSN: [id number] OPERATIVE NO Observed: 10/19/2018 Status: COMPLETED Source: [facility] 12:00 AM [facility] OTHER CAMPUS REPOSITORY O ID: [id number] Author: Josy Gonsales Service: General Surgery Author Type: Physician Type: Operative Report Filed: 10/22/2018 12:54 AM Note Text: [facility] - Operative Report NELSON HERRERA : 1980 AGE: 38. SEX: F PATIENT TYPE: I [place] [facility] [place] [facility] [place] [facility] LOCATION: [facility] ATTENDING PHYSICIAN: Josy Gonsales MD CSN NUMBER: [id number] DATE OF SURGERY/PROCEDURE: 10/19/2018 INCISION/PROCEDURE START TIME: 10:33 AM INCISION CLOSE/PROCEDURE END TIME: 11:44 AM PREOPERATIVE DIAGNOSIS: 1. Hepatic adenoma. 2. Left upper arm mass. POSTOPERATIVE DIAGNOSIS: 1. Hepatic adenoma. 2. Left upper arm mass. SURGEON: Josy Gonsales MD INK JET OPERATOR: Dr. Braeden Colón. SURGERY/PROCEDURE: 1. Laparoscopic ablation of liver tumor under ultrasound guidance. 2. Excision of left upper arm mass, 3 x 1 x 3 cm. ANESTHESIA: General endotracheal. ESTIMATED BLOOD LOSS: Minimal. INDICATION FOR PROCEDURE: This is a 38-year-old female, who was found to have an incidentally noted liver lesion. This was biopsy- proven to be a hepatic adenoma. The patient had no history of oral contraceptive use and was counseled on the need for laparoscopic liver ablation for treatment. Risks and benefits of the procedure including, but not exclusive to bleeding, infection, possibility of postoperative liver failure, and recurrence were discussed with her and she elected to undergo with the procedure. DESCRIPTION OF PROCEDURE: After informed consent was obtained, the patient was brought to the operating room and placed on the operating table in supine position. After the induction of general anesthetic and then preoperative check was completed, the abdomen was prepped and draped in sterile fashion. An incision was made superior to the umbilicus. Dissection was carried down to the fascia. The fascia was opened in the midline. The peritoneal cavity was then entered. Under direct visualization, we inserted Magdi trocar. We then connected CO2 insufflation to establish pneumoperitoneum. We then performed a diagnostic laparoscopy. We found no evidence of any gross metastatic disease and continued with our approach. We then placed a 5-mm trocar site in the right upper quadrant. Utilizing the laparoscopic liver ultrasound, we identified the lesion. Lesion was in segment 7. It was measured approximately 1.9 x 1.4 cm x 1.4 cm. It was peripheral near blood vessel. It was ablated at 100 hodge for 10 minutes. Post ablation ultrasound showed no evidence of any bleeding. We then copiously irrigated the right upper quadrant until it was clear. The ports were removed and abdomen was desufflated. We closed the fascia at the umbilical trocar sites with [id number] 0 Vicryl suture and we closed the other trocar sites with a 4-0 Monocryl stitch. We turned attention to our left forearm incision. The left arm was prepped and draped in a sterile fashion. An incision was made over top of the lesion. Lesion was excised, sent to Pathology for permanent section. It measured approximately 3 x 1 x 3 cm. The cavity was then hemostased with electrocautery and closed with 4-0 Monocryl stitch. At the end of the case, all sponge and needle counts were correct. The patient was awakened and transferred back in stable condition. I was present and scrubbed the entire procedure. SPECIMEN: Left forearm mass. DRAINS: Zero. WOUND CLASS: 2, clean, contaminated. MD TASHIA RasconA:[id number] /[id number] SURGICAL TISSUE EXAM Observed: 10/19/2018 Status: F Source: [facility] 12:00 AM HEALTH SYSTEM REPOSITORY Test performed at [place] [address] NAME: NELSON HERRERA REQUESTING: JOSY GONSALES MD FINAL DIAGNOSIS: SOFT TISSUE MASS OF LEFT UPPER ARM, EXCISION - MATURE ADIPOSE TISSUES CONSISTENT WITH LIPOMA. OPERATIVE PROCEDURE: Excision of lesion of left upper arm CLINICAL INFORMATION: Lesion of upper extremity [L98.9] GROSS DESCRIPTION: Lesion from left upper arm Received in formalin labeled lesion from left upper arm is an irregular-shaped segment of yellow fibrofatty tissue measuring 3.0 x 2.2 x 1.0 cm. A capsule is not present. Sectioning reveals a homogeneous yellow fatty cut surface. No involvement by neoplasm is seen. Chemical Processing Supervisor sections are submitted in formalin in one cassette. ARH:bebo KRISHNAN M.D., PATHOLOGIST (Electronic signature on file) Signed out: 10/23/2018 14:40 PRINTED: 10/23/2018 Page 1 of 1 Performed By: #### SURG #### [place] [address] HGB Collected: 10/12/2018 Status: F Source: [facility] 3:00 PM HEALTH SYSTEM REPOSITORY TYPE CODE TESTS RESULT OUT OF RANGE REFERENCE UNITS LAB HGBI(LOINC) 11.2-15.7 g/dL Hgb 14.1 Performed By: #### HGBI #### [place] [address] HCT Collected: 10/12/2018 Status: F Source: [facility] 3:00 PM HEALTH SYSTEM REPOSITORY TYPE CODE TESTS RESULT OUT OF RANGE REFERENCE UNITS LAB HCTI(LOINC) 34.1-44.9 % Hct 43.0 Performed By: #### HCTI #### [place] [address] TYPE AND SCREEN Collected: 10/12/2018 Status: F Source: [facility] 3:00 PM HEALTH SYSTEM REPOSITORY TYPE CODE TESTS RESULT OUT OF REFERENCE UNITS RANGE LAB ABO(LOINC) AB ABO Group LAB CALL MANAGER(LOINC ) RH Type Positive LAB ABSCR(LOIN C) Antibody NEGATIVE Screen LAB BBCMT(LOIN C) Comment PAT specimen Performed By: #### T&S #### [facility] [address] [place] [address] RBC PRODUCTS Collected: 10/12/2018 Status: F Source: [facility] 3:00 PM HEALTH SYSTEM REPOSITORY TYPE CODE TESTS RESULT OUT OF REFERENCE UNITS RANGE LAB UNIT1(LOINC ) Xmatch Unit 1 see below Result Comment: Compatible LAB UNIT2(LOINC) Xmatch Unit 2 see below Result Comment: Compatible Performed By: #### RBCPS #### [facility] [address] [place] [address] HISTORY PHYSICAL Observed: 10/12/2018 Status: COMPLETED Source: [facility] 2:20 PM CLINIC OTHER CAMPUS REPOSITORY HNO ID: [id number] Author: Heidi Scott (Fur Weigher) Catrachito Service: (none) Author Type: Nurse Practitioner Type: HANDP Filed: 10/12/2018 2:57 PM Note Text: HISTORY AND PHYSICAL EXAMINATION SERVICE DATE: 10/12/2018 SERVICE TIME: 8:39 AM PRIMARY CARE PHYSICIAN: Arleen Greenberg MD The patient has the following: ACTIVE PROBLEM LIST Insomnia Vitamin D Deficiency Ganglion Cyst of Dorsum of Right Wrist Weakness of Right Arm Chronic Fatigue Tobacco Abuse Trigger Thumb of Right Hand Right Carpal Tunnel Syndrome Subjective CHIEF COMPLAINT: Mass on liver HPI: This is a 38 year old female c/o above x may 2018. Pt states she went to ED in may with severe pain across her abdomen. Pt had a CT scan done at this time and a mass was found on her liver. Pt states the mass has grown in size since may. Pt co right sided pain along right ribcage -01/17 described as a constant pressure with intermittent stabbing. Pt currently takes ibuprofen for pain relief. Pt had a biopsy of the area done July 2018, which revealed well-differentiated hepatocellular neoplasm, favor hepatic adenoma, see results in epic. Discussed risks and benefits with surgeon and agrees to surgical intervention. PAST MEDICAL HISTORY Diagnosis Date - Abdominal pain - Anemia - Dyspepsia - Endometriosis - Fatty liver - IBS (irritable bowel syndrome) - Liver mass - Post-cholecystectomy syndrome - RUQ pain 06/10/14 - Vitamin D deficiency PAST SURGICAL HISTORY Procedure Laterality Date - COLONOSCOPY W/BIOPSY 2013 - CYST/MOLE REMOVAL Bilateral Left wrist, right hand - EGD DILATION - ENDOSCOPY PROC 2013 bxs - LAP CHOLECYSTECT/CHOLANGIOGRAPHY 04/24/14 Normal IOC - PAST SURGICAL HISTORY OF appendectomy - PAST SURGICAL HISTORY OF dental procedures - PAST SURGICAL HISTORY OF diagnostic laparoscopy - PAST SURGICAL HISTORY OF Carpal tunnel release, right - PAST SURGICAL HISTORY OF as a child removed a piece of lead from skull - TOTAL ABDOM HYSTERECTOMY 2004 Hysterectomy, AMANDA FAMILY HISTORY Problem Relation Age of Onset - Adopted: Yes - other (adopted) Other SOCIAL HISTORY: Social History Marital status: Spouse name: Years of education: Number of children: 2 Occupational History 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 Taking Yes cholestyramine (QUESTRAN) 4 gram packet Take by mouth as directed. Taking Yes VITAMIN D 50,000 unit capsule Take 1,000 Units by mouth once each week. Not Taking Estazolam 1 mg tablet TAKE ONE TABLET BY MOUTH nightly NEEDED FOR SLEEP FOR UP TO 30 DAYS Not Taking Cholecalciferol, Vitamin D3, 1,000 unit cap Take 1,000 Units by mouth once daily. Not Taking HYDROcodone-acetaminophen (NORCO) 5-325 mg per tablet Take 1 tablet by mouth every 4 hours as needed. Patient not taking: Reported on 07/21/2018 gabapentin (NEURONTIN) 100 mg capsule Increase as directed up to 3 capsules three times daily No medication comments found. ALLERGIES Allergen Reactions - Penicillins Hives, Anaphylaxis, Shortness of Breath - Chantix [Vareniclin* Other: See Comments Mood changes (irritability), flu like symptoms, body aching - Demerol [Meperidine* Other: See Comments Nausea - Dilaudid [Hydromorp* Mental Status Change - Latex Other: See Comments my skin starts pealing off REVIEW OF SYSTEMS: PAIN ASSESSMENT: Pain Pain Score: 3/10 Pain Location: (right ribcage) Description: Stabbing;Pressure Frequency: Continuous Intervention: Medication General: Denies fever, chills, and unexpected weight change. Neuro: Denies dizziness .+ headaches. Respiratory: Denies SOB and cough. Cardiovascular: Denies CP and palpitations. GI: +abd pain, + diarrhea. + ribcage pain, see hpi : Denies dysuria and frequency. Endocrine: No history of diabetes. Hematology: Denies history of bleeding or clotting disorder. Musculoskeletal: Denies joint pain and swelling. Skin: Denies open sores and rashes. Objective PHYSICAL EXAM: VITALS: BP 133/75 Pulse 91 Temp 99.3 Resp 18 Ht 5' 4 (1.63m) Wt 180 lb (81.6kg) SpO2 100% BMI 30.88 kg/(m2). General: NAD. Cooperative. Skin: Skin is warm, no rashes, and no open sores. HEENT: Normocephalic. Cardiovascular: Normal S1 AND S2. No murmur. Lungs: CTA. No respiratory distress. Abdomen: Soft. Extremities: No edema. Neurological: Alert and oriented to person, place, and time. Pulses: radial pulses +2 Assessment/Plan Hepatic adenoma There is no known pertinent medical condition which may affect francine-operative course METS: Climb a flight of stairs or walk up a hill (5.50 METs) Patient denies any chest pain or undue shortness of breath with the above physical activity. ANESTHESIA FINDINGS: Intubation History: No history of difficult intubation Significant Anesthesia Considerations: None PLAN Planned Procedure: LAPAROSCOPY W/ RF ABLATION OF LIVER TUMOR The Following Tests/Procedures Have Been Initiated: T/c 2 units, h/h Consults: pt states she wasn't required to see anyone for clearance Planned Anesthetic: General Instructions Given to Patient: Patient given verbal and written preop instructions and voices comprehension and compliance. SIGNATURE: Heidi Winston APRN.CNP PATIENT NAME: Nelson Herrera DATE: October 12, 2018 TIME: 8:39 AM PAGER/CONTACT #: [phone] Observed: 09/06/2018 Status: COMPLETED Source: [facility] 12:00 AM CLINIC OTHER CAMPUS REPOSITORY Patient:Nelson Herrera MRN: <[id number]> Height:5' 4(1.626 m) Weight:180 lb (81.647 kg) Outpatient Medications as of 10/19/18: VITAMIN D 50,000 unit capsule Estazolam 1 mg tablet Omeprazole 40 mg capsule Cholecalciferol, Vitamin D3, 1,000 unit cap cholestyramine (QUESTRAN) 4 gram packet HYDROcodone-acetaminophen (NORCO) 5-325 mg per tablet gabapentin (NEURONTIN) 100 mg capsule Admission/Clinic Administered Medications as of 10/19/18: clindamycin iv piggyback 900 mg in D5W 50 mL (CLEOCIN) lactated ringers infusion fentaNYL 50 mcg/mL 25 mcg injection (SUBLIMAZE) ondansetron (PF) 4 mg injection (ZOFRAN) Problem List: Insomnia [G47.00] Vitamin D deficiency [E55.9] Ganglion cyst of dorsum of right wrist [M67.431] Weakness of right arm [R29.898] Chronic fatigue [R53.82] Tobacco abuse [Z72.0] Trigger thumb of right hand [M65.311] Right carpal tunnel syndrome [G56.01] Allergies: Penicillins Chantix [Varenicline] Demerol [MEPERIDINE (PF)] Dilaudid [Hydromorphone (Bulk)] Latex Date Verified: 10/19/18 Lab Values Lab Value Units Date High Low BEV* 43.0 % 10/12/2018 44.9 34.1 Progress Notes ([facility]): Madai Vivienne ROMEO 09/29/2018 4:08 PM Signed Called Patient and advised she has one more refill left at [facility]. I checked with the pharmacy and they verified one more refill. I advised the patient and she voiced understanding. Madai Vivienne ROMEO PROGRESS Observed: 09/05/2018 Status: COMPLETED Source: [facility] 4:12 PM CLINIC OTHER CAMPUS REPOSITORY HNO ID: [id number] Author: Josy Gonsales Service: (none) Author Type: Physician Type: Progress Notes Filed: 09/08/2018 3:19 PM Note Text: Patient referred by: Marcell Pereira MD [address] [facility] [address] HPI: This is a new patient consult from Dr. Pereira. She was previously worked up for upper abdominal pain with no diagnosis achieved, and as part of her workup a adenoma was found in her liver. She continues to endorse lateral right side pain, no association with food or positional changes, will just stay as a dull ache with momentary exacerbations. Occasionally has some nausea, and also reports diarrhea beginning after her cholecystectomy a few years ago which is now improving with cholestyramine. Otherwise a 10 point ROS was negative. She does endorse multiple lipomas recently developing; one on her arm, one between her breasts, one underneath her L breast, and on on her L lower abdominal wall. . PAST MEDICAL HISTORY Diagnosis Date - Abdominal pain - Anemia - Dyspepsia - Endometriosis - Fatty liver - IBS (irritable bowel syndrome) - Liver mass - Post-cholecystectomy syndrome - RUQ pain 06/10/14 - Vitamin D deficiency PAST SURGICAL HISTORY Procedure Laterality Date - COLONOSCOPY W/BIOPSY 2013 - CYST/MOLE REMOVAL Bilateral Left wrist, right hand - EGD DILATION - ENDOSCOPY PROC 2013 bxs - LAP CHOLECYSTECT/CHOLANGIOGRAPHY 04/24/14 Normal IOC - PAST SURGICAL HISTORY OF appendectomy - PAST SURGICAL HISTORY OF dental procedures - PAST SURGICAL HISTORY OF diagnostic laparoscopy - PAST SURGICAL HISTORY OF 1998 wrist ganglion - PAST SURGICAL HISTORY OF Carpal tunnel release, left - TOTAL ABDOM HYSTERECTOMY 2004 Hysterectomy, AMANDA FAMILY HISTORY Problem Relation Age of Onset - Adopted: Yes - other (adopted) Other Social History Marital status: Spouse name: Years of education: Number of children: 2 Occupational History 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 cholestyramine (QUESTRAN) 4 gram packet Take by mouth as directed. azithromycin (ZITHROMAX) 250 mg tablet Take 2 tablets (500 mg) on Day 1, and then take 1 tablet (250 mg) on days 2 through 5. Estazolam 1 mg tablet TAKE ONE TABLET BY MOUTH nightly NEEDED FOR SLEEP FOR UP TO 30 DAYS Omeprazole 40 mg capsule Take 40 mg by mouth once daily. Cholecalciferol, Vitamin D3, 1,000 unit cap Take 1,000 Units by mouth once daily. HYDROcodone-acetaminophen (NORCO) 5-325 mg per tablet Take 1 tablet by mouth every 4 hours as needed. (Patient not taking: Reported on 07/21/2018 ) gabapentin (NEURONTIN) 100 mg capsule Increase as directed up to 3 capsules three times daily (Patient not taking: Reported on 07/21/2018 ) No current facility-administered medications for this visit. ALLERGIES Allergen Reactions - Penicillins Hives, Anaphylaxis, Shortness of Breath - Chantix [Vareniclin* Other: See Comments Mood changes (irritability), flu like symptoms, body aching - Demerol [Meperidine* Other: See Comments Nausea - Dilaudid [Hydromorp* Mental Status Change - Latex Other: See Comments my skin starts pealing off REVIEW OF SYSTEMS: See HPI PHYSICAL EXAM: BP 110/80 Pulse 96 Resp 16 Ht 5' 4 (1.63m) Wt 180 lb (81.6kg) SpO2 98% BMI 30.88 kg/(m2). GENERAL APPEARANCE: Well appearing, alert, in no acute distress, well-hydrated, well nourished.. ABDOMEN: soft, nondistended, ttp in R lateral side and epigastrium NEURO: Alert, oriented x3, no asterixis, speech clear and articulate and SAHNI HEART: regular rate and rhythm LUNGS: NL resp on RA A total of 30 minutes was spent in direct patient contact. Greater than 50% of the direct patient contact time was spent in counseling or coordination of care. ASSESSMENT / PLAN: 38 year old F w/ hepatic adenoma -Discussed with Dr Gonsales -will schedule for ablation of adenoma and possible excision of lipomas Braeden Colón MD Attending Note I personally saw and examined the patient. I reviewed the resident's note. I agree with the resident's assessment and plan with the following revisions and/or additions: Patient with biopsy-proven hepatic adenoma. She has not been on oral contraceptive pills. Due to this she does need surgical treatment. Due to the small size she would be best suited with a lap scopic ablation. Risk and benefits of the procedure including but not exclusive to bleeding infection possibility of postoperative recurrence were discussed with her and she wishes to move forward the operation. We'll schedule her sometime in October. Signature: Josy Gonsales MD Date: 09/08/2018 Time: 3:18 PM CNOV Observed: 09/05/2018 Status: COMPLETED Source: [facility] 3:00 PM CLINIC OTHER CAMPUS REPOSITORY Office Visit ([facility]) JAVIERNELSON ([id number]) 1980 F Date Time Provider Department 09/05/18 3:00 PM JOSY GONSALES [facility] During your visit today, we recorded the following information about you: Pulse Respiration Blood pressure Weight 96/minute 16/minute 110/80 81.6 kg Height 1.626 m Josy Gonsales MD 09/08/2018 3:19 PM Signed Patient referred by: Marcell Pereira MD [address] [facility] [address] HPI: This is a new patient consult from Dr. Pereira. She was previously worked up for upper abdominal pain with no diagnosis achieved, and as part of her workup a adenoma was found in her liver. She continues to endorse lateral right side pain, no association with food or positional changes, will just stay as a dull ache with momentary exacerbations. Occasionally has some nausea, and also reports diarrhea beginning after her cholecystectomy a few years ago which is now improving with cholestyramine. Otherwise a 10 point ROS was negative. She does endorse multiple lipomas recently developing; one on her arm, one between her breasts, one underneath her L breast, and on on her L lower abdominal wall. . PAST MEDICAL HISTORY Diagnosis Date - Abdominal pain - Anemia - Dyspepsia - Endometriosis - Fatty liver - IBS (irritable bowel syndrome) - Liver mass - Post-cholecystectomy syndrome - RUQ pain 06/10/14 - Vitamin D deficiency PAST SURGICAL HISTORY Procedure Laterality Date - COLONOSCOPY W/BIOPSY 2013 - CYST/MOLE REMOVAL Bilateral Left wrist, right hand - EGD DILATION - ENDOSCOPY PROC 2013 bxs - LAP CHOLECYSTECT/CHOLANGIOGRAPHY 04/24/14 Normal IOC - PAST SURGICAL HISTORY OF appendectomy - PAST SURGICAL HISTORY OF dental procedures - PAST SURGICAL HISTORY OF diagnostic laparoscopy - PAST SURGICAL HISTORY OF 1997 wrist ganglion - PAST SURGICAL HISTORY OF Carpal tunnel release, left - TOTAL ABDOM HYSTERECTOMY 2004 Hysterectomy, AMANDA FAMILY HISTORY Problem Relation Age of Onset - Adopted: Yes - other (adopted) Other Social History Marital status: Spouse name: Years of education: Number of children: 2 Occupational History 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 cholestyramine (QUESTRAN) 4 gram packet Take by mouth as directed. azithromycin (ZITHROMAX) 250 mg tablet Take 2 tablets (500 mg) on Day 1, and then take 1 tablet (250 mg) on days 2 through 5. Estazolam 1 mg tablet TAKE ONE TABLET BY MOUTH nightly NEEDED FOR SLEEP FOR UP TO 30 DAYS Omeprazole 40 mg capsule Take 40 mg by mouth once daily. Cholecalciferol, Vitamin D3, 1,000 unit cap Take 1,000 Units by mouth once daily. HYDROcodone-acetaminophen (NORCO) 5-325 mg per tablet Take 1 tablet by mouth every 4 hours as needed. (Patient not taking: Reported on 07/21/2018 ) gabapentin (NEURONTIN) 100 mg capsule Increase as directed up to 3 capsules three times daily (Patient not taking: Reported on 07/21/2018 ) No current facility-administered medications for this visit. ALLERGIES Allergen Reactions - Penicillins Hives, Anaphylaxis, Shortness of Breath - Chantix [Vareniclin* Other: See Comments Mood changes (irritability), flu like symptoms, body aching - Demerol [Meperidine* Other: See Comments Nausea - Dilaudid [Hydromorp* Mental Status Change - Latex Other: See Comments my skin starts pealing off REVIEW OF SYSTEMS: See HPI PHYSICAL EXAM: BP 110/80 Pulse 96 Resp 16 Ht 5' 4 (1.63m) Wt 180 lb (81.6kg) SpO2 98% BMI 30.88 kg/(m2). GENERAL APPEARANCE: Well appearing, alert, in no acute distress, well-hydrated, well nourished.. ABDOMEN: soft, nondistended, ttp in R lateral side and epigastrium NEURO: Alert, oriented x3, no asterixis, speech clear and articulate and SAHNI HEART: regular rate and rhythm LUNGS: NL resp on RA A total of 30 minutes was spent in direct patient contact. Greater than 50% of the direct patient contact time was spent in counseling or coordination of care. ASSESSMENT / PLAN: 38 year old F w/ hepatic adenoma -Discussed with Dr Gonsales -will schedule for ablation of adenoma and possible excision of lipomas Braeden Colón MD Attending Note I personally saw and examined the patient. I reviewed the resident's note. I agree with the resident's assessment and plan with the following revisions and/or additions: Patient with biopsy-proven hepatic adenoma. She has not been on oral contraceptive pills. Due to this she does need surgical treatment. Due to the small size she would be best suited with a lap scopic ablation. Risk and benefits of the procedure including but not exclusive to bleeding infection possibility of postoperative recurrence were discussed with her and she wishes to move forward the operation. We'll schedule her sometime in October. Signature: Josy Gonsales MD Date: 09/08/2018 Time: 3:18 PM Josy Gonsales MD 09/05/2018 4:43 PM Signed Office will call with date and time for surgery Referring Provider: MARCELL PEREIRA [[id number]] Allergies As of Date: 09/05/2018 Noted Allergy Reaction PENICILLINS 06/24/2005 4 - Hives 10 - Anaphylaxis 12 - Shortness of Breath CHANTIX (VARENICLINE) 08/24/2016 14 - Other: See Comments Comments: Mood changes (irritability), flu like symptoms, body aching Demerol (MEPERIDINE (PF)) 05/14/2018 14 - Other: See Comments Comments: Nausea DILAUDID (HYDROMORPHONE (BULK)) 05/02/2014 1 - Mental Status Change LATEX 06/24/2005 14 - Other: See Comments Comments: my skin starts pealing off Date Reviewed: 09/05/2018 Reviewed by: Josy Gonsales - Fully Assessed Reason for Visit: New Patient [172] Cmt: Ms. Herrera is here today referred by Dr. Torres for adenoma in the liver. Primary Visit Diagnosis:Hepatic adenoma [D13.4] Prescriptions as of 09/05/2018 Sig: VITAMIN D2 50,000 UNIT CAPSULE Take 1,000 Units by mouth onc* CHOLESTYRAMINE (WITH SUGAR) 4* Take by mouth as directed. AZITHROMYCIN 250 MG TABLET Take 2 tablets (500 mg) on Da* ESTAZOLAM 1 MG TABLET TAKE ONE TABLET BY MOUTH nigh* OMEPRAZOLE 40 MG CAPSULE,NANO* Take 40 mg by mouth once ellen* CHOLECALCIFEROL (VITAMIN D3) * Take 1,000 Units by mouth onc* HYDROCODONE 5 MG-ACETAMINOPHE* Take 1 tablet by mouth every * Patient not taking: Reported on 07/21/2018 GABAPENTIN 100 MG CAPSULE Increase as directed up to 3 * Patient not taking: Reported on 07/21/2018 Problem List As Of Date 09/05/2018 Noted Resolved Pain in joint, pelvic region and thigh [M25.559]INVALID FOR*09/28/2016 Abdominal pain, right upper quadrant [R10.11] INVALID FOR*09/28/2016 More... Fever [R50.9] INVALID FOR*09/28/2016 More... Thrush [B37.0] INVALID FOR*09/28/2016 More... Insomnia [G47.00] INVALID FOR* More... Vitamin D deficiency [E55.9] INVALID FOR* Ganglion cyst of dorsum of right wrist [M67.431]INVALID FOR* Chest pain [R07.9] INVALID FOR*09/28/2016 Weakness of right arm [R29.898] INVALID FOR* Chronic fatigue [R53.82] INVALID FOR* Tobacco abuse [Z72.0] INVALID FOR* Trigger thumb of right hand [M65.311] INVALID FOR* Right carpal tunnel syndrome [G56.01] INVALID FOR* Other instructions from your clinician: Office will call with date and time for surgery Letter Text Encounter Status:Closed by JOSY GONSALES MD on 09/08/18 SURGICAL PATHOLOGY Observed: 08/10/2018 Status: F Source: [facility] 12:00 AM [facility] REPOSITORY Specimen #: [id number] Submitting Physician: NURIA CATHERINE M.D. FINAL DIAGNOSIS [place], [place]; [id number] (08/07/2018) Liver, needle biopsy (A1-3, A1-14 and associated stain) - Well-differentiated hepatocellular neoplasm, favor hepatic adenoma. COMMENT Thank you for allowing us the opportunity to review this case in consultation representing the liver biopsy from Nelson Herrera, a 38-year-old female with a history of a 2 cm liver lesion. She had a jejunal, duodenal, gastric, gastroesophageal junction, terminal ileum and colonic biopsies reviewed at our institution in 2013 ([id number]). The lesional tissue is a well-differentiated hepatocellular proliferation without normal-appearing portal tracts. Instead, there are portal-like areas composed of arteriole tangles and no normal bile ducts. Further, there are several unpaired arteries within the hepatic lobules. These findings are diagnostic of hepatocellular neoplasm. The lack of mitotic activity, small cell change, or thickened trabecular all argue for adenoma rather than carcinoma. The radiologic concern for FNH is noted, but the lack of scar, lack of thickened medium/large vessels, and lack of bile ductular proliferation preclude a diagnosis of FNH on the supplied material. Stains were performed at the [facility] on block A1 ([id number]) for glutamine synthetase, beta-catenin, glypican, reticulin and H&E to assist in the evaluation of this case. Beta catenin shows a membranous pattern of immunoreactivity, and glutamine synthetase shows perivenular immunoreactivity (non map-like and non diffuse). The cells of interest are negative for glypican-3. Reticulin stain shows retained expression. The combined histologic and immunohistochemical features favor a hepatocellular adenoma. Thank you for sending this case in consultation. Please do not hesitate to contact the GI Consultation Service at [phone] with questions or if additional follow up information becomes available. This case was reviewed in conjunction with the GI pathology fellow, Delfina Hopkins D.O. Laboratory Developed Test (LDT) Disclaimer: Positive and negative controls stain appropriately. Performance characteristics of immunohistochemical, immunofluorescent and chromogenic in-situ hybridization tests have been determined by [facility]'s [facility] [place] ([facility]) in a manner consistent with CLIA requirements. One or more of these tests have not been cleared or approved by the FDA. [facility] is regulated under CLIA as qualified to perform high-complexity testing. These tests are used for clinical purposes. They should not be regarded as investigational or for research. MC/RW/lh/08-11-2018 Tian Candelario M.D., Ph.D. (Electronic Signature) SPECIMEN SUBMITTED A: 3 SLIDES [id number] CLINICAL DATA Liver mass. Date of Report: 08/17/2018 Date of Procedure: 08/10/2018 Date of Receipt: 08/10/2018 Submitted by: NURIA CATHERINE M.D. Location: Diagnostic interpretation performed at [facility], [address] [place] [address]. US BIOPSY LIVER Observed: 08/07/2018 Status: F Source: fypio 2:46 PM SYSTEM REPOSITORY Patient Name: NELSON HERRERA Ultrasound Exam Date/Time 08/07/2018 11:02:36 EDT Exam US Biopsy Liver Ordering Physician MD NURIA, MARCELL Salas Accession Number [id number] CPT4 Codes 55759 (), 31053 () Reason For Exam abnormal findings on diagnostic imaging of liver Report CLINICAL HISTORY: Indeterminant hepatic dome lesion. Procedures: Ultrasound guided liver biopsy. Physician: Dr. García MEDICATIONS: 1.5 mg Versed IV, 150 mcg fentanyl IV, 4 mg morphine IV, local lidocaine. EBL: Minimal. Contrast: None Specimen sent: Five 20-gauge core biopsies from a right hepatic lobe lesion. COMPLICATIONS: None Fluoroscopy Time: None Procedural details: Prior to the procedure red rules were performed which included patient name, date of , and procedure type. All of the risk, benefits, and alternative treatments were explained to the patient and informed consent was obtained and documented. Specific risks for liver biopsy were discussed with the patient including infection and damage to hepatic structures including the bile ducts. The risk of bleeding due to the vascularity of the liver was also discussed with the patient. Possible interventions in the event of prolonged bleeding were described including arterial embolization. The patient was also advised to remain flat for two hours following the procedure and to refrain from any strenuous activities until the following day. The patient verbalized understanding of the specific risks. The patient was brought into the ultrasound scanner and placed in a supine position. An audible timeout was performed. Conscious sedation was performed by a trained sedation nurse/trained independent observer under my direct supervision. Intraservice time was 45 minutes. The patient's abdomen was interrogated with ultrasound and a suitable site for biopsy was identified. The overlying skin was prepped and draped in the usual sterile fashion. The overlying subcutaneous tissues were anesthetized using one percent lidocaine. Under direct ultrasound visualization, a 20- gauge [employer] biopsy needle was advanced into a hypoechoic lesion within the dome of the liver. Multiple core biopsies were obtained and placed in formalin. Following this, the needle was then removed and the biopsy tract was embolized using Gelfoam slurry. Hemostasis was obtained using manual pressure. A limited postprocedural ultrasound was performed. Following Gelfoam injection, the patient complained of severe abdominal pain with radiation to the right shoulder. 4 mg of morphine were given with improvement in pain symptoms. The patient was then transferred to the PACU. Within the PACU, the patient complained of persistent pain. 0.5 mg of Ativan was given which improved the patient's anxiety and pain level. A postprocedural chest x-ray was also performed which show no evidence of a pneumothorax. FINDINGS: No evidence of perihepatic hematoma status post biopsy. IMPRESSION: Successful ultrasound-guided liver biopsy. Report Dictated on Final Dictated: 08/07/2018 2:46 pm Dictating Physician: MD GARCÍA YUN ROBERT Signed Date and Time: 08/07/2018 3:07 pm Signed by: MD GARCÍA YUN ROBERT Transcribed Date and Time: 08/07/2018 2:46 CR CHEST 1 VIEW Observed: 08/07/2018 Status: F Source: [facility] 11:12 AM SYSTEM REPOSITORY Patient Name: NELSON HERRERA Diagnostic Radiology Exam Date/Time 08/07/2018 11:03:36 EDT Exam CR Chest 1 View Frontal Ordering Physician MD GARCÍA YUN ROBERT Accession Number [id number] CPT4 Codes 54050 () Reason For Exam sob Report Examination: Portable chest Indication: sob Findings: There is no focal consolidation, sizable pleural effusion or pneumothorax. The cardiac silhouette and mediastinum are within normal limits. The bones are grossly unremarkable. Impression: No radiographic evidence of acute cardiopulmonary process. Report Dictated on Final Dictated: 08/07/2018 11:12 am Dictating Physician: MD CHÁVEZ KRIKOR Signed Date and Time: 08/07/2018 11:13 am Signed by: MD CHÁVEZ KRIKOR Transcribed Date and Time: 08/07/2018 11:12 Observed: 08/07/2018 Status: F Source: [facility] SURGICAL PATHOLOGY 11:00 AM SYSTEM REPOSITORY [id number] [facility] PATHOLOGY AND LABORATORY MEDICINE [address] [place] [address] FINAL SURGICAL PATHOLOGY REPORT NAME: NELSON HERRERA : 1980 38 Y F BILLING NO.: [id number] [address] 08/07/2018 DATE: SURGEON: MARCELL PEREIRA M.D. RECEIVED 08/07/2018 DATE: ATTENDING: MARCELL PEREIRA M.D. REPORT DATE: 08/17/2018 COPIES TO: WILL GARCÍA MD DIAGNOSIS: LIVER, RIGHT LOBE MASS, CORE BIOPSY - WELL DIFFERENTIATED HEPATOCELLULAR NEOPLASM, FAVOR HEPATIC ADENOMA. Comment: The above diagnosis is based on Pathology consultation obtained from [facility] hepatobiliary Pathology service. The full report from [facility] is on file. Immunostain for CK 7 was performed at [facility]; additional stains including beta-catenin, glypican, glutamine synthetase were performed at [facility]. In their report the [facility] pathologists state that, overall, the combined histologic and immunohistochemical features favor a hepatocellular adenoma. OK/OK <Sign Out Dr. Torres> NURIA CATHERINE M.D. CLINICAL INFORMATION: Liver mass SPECIMEN: LIVER, NEEDLE OR WEDGE BIOPSY FOR MASS INTRAOPERATIVE CONSULTATION/FROZEN SECTION DIAGNOSIS: TOUCH PREPARATION: TP 1 - Benign-appearing hepatocytes. TP 2 - Benign-appearing hepatocytes. Additional cores in formalin. MARTINA Serrato GROSS DESCRIPTION: Right lobe liver mass per requisition Received in formalin are two core-like segments of yellow- carrillo tissue along with smaller fragments. The smaller fragments aggregating to 0.4 x 0.4 cm while the two cores measure 0.8 and 1.7 cm in length. The entire specimen is submitted in a single cassette. (bits ns, 1) JCK/KMS1 Disclaimer: The following statement applies to all immunohistochemistry, in situ hybridization, molecular studies, and immunofluorescence testing. The use of one or more reagents in the above tests is regulated as an analyte specific reagent (ASR). These tests were developed and their performance characteristics determined by the clinical laboratories of [facility]. They have not been cleared by the US Food and Drug Administration (FDA). The FDA has determined that such clearance or approval is not necessary. All the above immunostains were performed on paraffin embedded tissue. Appropriate positive and negative controls (where applicable) were run in parallel with the patient's specimen; these controls showed expected staining pattern, with acceptable intensity of staining. Immunohistochemical assays have not been validated on decalcified tissues. Results should be interpreted with caution given the raised possibility of false negativity on decalcified specimens. Professional Performing Location: [address] [address]. DEPARTMENT OF PATHOLOGY AND LABORATORY MEDICINE [place], [place] [address] HEMOGRAM Collected: 08/07/2018 Status: F Source: fypio 7:50 AM SYSTEM REPOSITORY TYPE CODE TESTS RESULT OUT OF RANGE REFERENCE UNITS LAB IWBC 3.6-10.7 10*3/uL High WBC 11.1 LAB RBC 3.80-5.20 10*6/uL RBC Normal 4.14 LAB HGB 11.7-16.0 g/dL Normal Hemoglobin 13.7 LAB HCT 35.0-47.0 % Normal Hematocrit 40.1 LAB MCV 79.0-98.0 fL MCV Normal 96.7 LAB MCH 26.0-34.0 pg MCH Normal 33.0 LAB MCHC 32.0-36.0 % MCHC Normal 34.1 LAB RDW 11.5-14.5 % RDW Normal 12.9 LAB PLT 140-440 10*3/uL Platelet Normal 237 LAB MPV 7.4-10.4 fL MPV Normal 8.4 Performed By: #### HEMOG, PT #### [facility] [employer] [address] [address] PROTHROMBIN TIME Collected: 08/07/2018 Status: F Source: fypio 7:50 AM SYSTEM REPOSITORY TYPE CODE TESTS RESULT OUT OF REFERENCE UNITS RANGE LAB PROTM 9.0-12.0 s Prothrombin Normal Time 9.5 Result Comment: . LAB INR 0.9-1.1 NA Normal INR 0.9 Result Comment: Recommended Anticoagulant Therapy: SEE BELOW ----- INR of 2.0 - 3.0 : - Prophylaxis of Venous Thrombosis (high-risk surgery) - Treatment of Venous Thrombosis - Treatment of Pulmonary Embolism (Includes tissue heart valves, Acute Myocardial Infarction to prevent systemic embolism, Valvular Heart Disease, and Atrial Fibrillation) ----- INR of 2.5 - 3.5 : - Mechanical Prosthetic Valves (high risk) - If oral anticoagulant therapy is used to prevent Myocardial Infarction Performed By: #### HEMOG, PT #### [employer] [address] [place] [address] VIT D 25-OH, TOTAL Collected: 08/02/2018 Status: F Source: fypio 10:54 AM SYSTEM REPOSITORY TYPE CODE TESTS RESULT OUT OF RANGE REFERENCE UNITS LAB VD25H 30-100 ng/mL Normal Vit D 32 25-OH, Total Result Comment: Therapy is based on measurement of Total 25-OHD with the following classification levels: Less than 20 ng/mL: Indicative of Vit D deficiency 20-30 ng/mL: Suggests Vit D insufficiency Optimal: Greater than or equal to 30 ng/mL Test performed by [employer], measuring Total Vitamin D, not individual fractions. Performed By: #### VD25H #### [employer] [address] [place] [address] [employer] Collected: 08/02/2018 Status: F Source: fypio 10:53 AM SYSTEM REPOSITORY TYPE CODE TESTS RESULT OUT OF REFERENCE UNITS RANGE LAB 2CEA 0.0-3.0 ng/mL [employer]. High 3.6 Performed By: #### CEA2 #### [employer] [address] [place] [address] #### AFTM, CA19O #### The performing lab is in the report. AFP TUMOR MARKER Collected: 08/02/2018 Status: F Source: fypio 10:53 AM SYSTEM REPOSITORY TYPE CODE TESTS RESULT OUT OF REFERENCE UNITS RANGE LAB AFPT 0-9 ng/mL AFP Tumor 5 Marker Result Comment: INTERPRETIVE INFORMATION: Alpha Fetoprotein Tumor Marker The S[employer] Access DxI AFP method is used. Results obtained with different assay methods or kits cannot be used interchangeably. AFP is a valuable aid in the management of nonseminomatous testicular cancer patients when used in conjunction with information available from the clinical evaluation and other diagnostic procedures. Increased AFP concentrations have also been observed in ataxia telangiectasia, hereditary tyrosinemia, primary hepatocellular carcinoma, teratocarcinoma, gastrointestinal tract cancers with and without liver metastases, and in benign hepatic conditions such as acute viral hepatitis, chronic active hepatitis, and cirrhosis. The result cannot be interpreted as absolute evidence of the presence or absence of malignant disease. The result is not interpretable as a tumor marker in females. Access complete set of age- and/or gender-specific reference intervals for this test in the [facility] Test Directory ([employer]). Performed by [facility], [address] [place] [address] [email or web address], Arpan Fernandez MD - Lab. Director Performed By: #### CEA2 #### [employer] [address] [place] [address] #### AFTM, CA19O #### The performing lab is in the report. CA 19-9 Collected: 08/02/2018 Status: F Source: fypio 10:53 AM SYSTEM REPOSITORY TYPE CODE TESTS RESULT OUT OF RANGE REFERENCE UNITS LAB CA19R 0-37 U/mL CA 19-9 4 Result Comment: INTERPRETIVE INFORMATION: Cancer Antigen-GI (CA 19-9) This test uses Mary CA 19-9 electrochemiluminescent immunoassay. Results obtained with different test methods or kits cannot be used interchangeably. CA 19-9 value is useful in monitoring pancreatic, hepatobiliary, gastric, hepatocellular, and colorectal cancer. CA 19-9 value, regardless of level, should not be interpreted as absolute evidence of the presence or absence of malignant disease. Performed by [facility], [address] [place] [address] [email or web address], Arpan Fernandez MD - Lab. Director Performed By: #### CEA2 #### [employer] [address] [place] [address] #### AFTM, CA19O #### The performing lab is in the report. PROGRESS Observed: 07/21/2018 Status: COMPLETED Source: [facility] 8:16 AM [facility] [place] REPOSITORY HNO ID: [id number] Author: Marcell Pereira Service: (none) Author Type: Physician Type: Progress Notes Filed: 07/21/2018 8:56 AM Note Text: Nelson Herrera is a 38 year old female who presents for Dyspepsia (Abn MRI in [place]). HPI: here for abnormal Imaging showing possible adenoma, has MRI done shows abnormal imaging, only symptoms is diarrhea 5-6 times day no BRPR, has upper abdominal pain, was tried on 10 mg bentyl once daily and 0 mg once daily has caused constipation. No on hormones/ had hysterectomy 10 years ago. Record Review: [facility] records reviewed PAST MEDICAL HISTORY Diagnosis Date - Abdominal pain - Anemia - Dyspepsia - Endometriosis - Fatty liver - IBS (irritable bowel syndrome) - Liver mass - Post-cholecystectomy syndrome - RUQ pain 06/10/14 - Vitamin D deficiency PAST SURGICAL HISTORY Procedure Laterality Date - COLONOSCOPY W/BIOPSY 2013 - CYST/MOLE REMOVAL Bilateral Left wrist, right hand - EGD DILATION - ENDOSCOPY PROC 2013 bxs - LAP CHOLECYSTECT/CHOLANGIOGRAPHY 04/24/14 Normal IOC - PAST SURGICAL HISTORY OF appendectomy - PAST SURGICAL HISTORY OF dental procedures - PAST SURGICAL HISTORY OF diagnostic laparoscopy - PAST SURGICAL HISTORY OF 1998 wrist ganglion - PAST SURGICAL HISTORY OF Carpal tunnel release, left - TOTAL ABDOM HYSTERECTOMY 2003 Hysterectomy, AMANDA Allergies: ALLERGIES Allergen Reactions - Penicillins Hives, Anaphylaxis, Shortness of Breath - Chantix [Vareniclin* Other: See Comments Mood changes (irritability), flu like symptoms, body aching - Demerol [Meperidine* Other: See Comments Nausea - Dilaudid [Hydromorp* Mental Status Change - Latex Other: See Comments my skin starts pealing off Medications: azithromycin (ZITHROMAX) 250 mg tablet Take 2 tablets (500 mg) on Day 1, and then take 1 tablet (250 mg) on days 2 through 5. Estazolam 1 mg tablet TAKE ONE TABLET BY MOUTH nightly NEEDED FOR SLEEP FOR UP TO 30 DAYS Omeprazole 40 mg capsule Take 40 mg by mouth once daily. Cholecalciferol, Vitamin D3, 1,000 unit cap Take 1,000 Units by mouth once daily. VITAMIN D 50,000 unit capsule Take 1,000 Units by mouth once each week. HYDROcodone-acetaminophen (NORCO) 5-325 mg per tablet Take 1 tablet by mouth every 4 hours as needed. 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 Respiratory: Positive for cough. Gastrointestinal: Positive for abdominal distention, abdominal pain, blood in stool and nausea. Change in bowel habits. All other systems reviewed and are negative. Where do you currently reside? [place]ependently Are you taking any blood thinners? No Physical Examination: Physical Exam Constitutional: She is oriented to person, place, and time and well-developed, well-nourished, and in no distress. HENT: Head: Normocephalic and atraumatic. Eyes: Conjunctivae are normal. No scleral icterus. Neck: Neck supple. Cardiovascular: Normal rate, regular rhythm and normal heart sounds. Pulmonary/Chest: Effort normal and breath sounds normal. Abdominal: Soft. Bowel sounds are normal. Musculoskeletal: She exhibits no edema. Neurological: She is alert and oriented to person, place, and time. Gait normal. Skin: Skin is warm and dry. Psychiatric: Mood, memory, affect and judgment normal. Assessment/Plan: There are no diagnoses linked to this encounter. This note was generated using Mashups voice recognition system, and there may be some incorrect words, spellings, and punctuation that were not noted in checking the note before saving. Madai NORIEGA Observed: 07/21/2018 Status: COMPLETED Source: [place] 8:00 AM [facility] REPOSITORY Office Visit ([facility]) NELSON HERRERA ([id number]) 1980 F Date Time Provider Department 07/21/18 8:00 AM MARCELL PEREIRA [facility] During your visit today, we recorded the following information about you: Pulse Blood pressure Weight Height 87/minute 136/100 84.4 kg 1.626 m Marcell Pereira MD 07/21/2018 8:56 AM Signed Nelson Herrera is a 38 year old female who presents for Dyspepsia (Abn MRI in [place]). HPI: here for abnormal Imaging showing possible adenoma, has MRI done shows abnormal imaging, only symptoms is diarrhea 5-6 times day no BRPR, has upper abdominal pain, was tried on 10 mg bentyl once daily and 0 mg once daily has caused constipation. No on hormones/ had hysterectomy 10 years ago. Record Review: [facility] records reviewed PAST MEDICAL HISTORY Diagnosis Date - Abdominal pain - Anemia - Dyspepsia - Endometriosis - Fatty liver - IBS (irritable bowel syndrome) - Liver mass - Post-cholecystectomy syndrome - RUQ pain 06/10/14 - Vitamin D deficiency PAST SURGICAL HISTORY Procedure Laterality Date - COLONOSCOPY W/BIOPSY 2013 - CYST/MOLE REMOVAL Bilateral Left wrist, right hand - EGD DILATION - ENDOSCOPY PROC 2013 bxs - LAP CHOLECYSTECT/CHOLANGIOGRAPHY 04/24/14 Normal IOC - PAST SURGICAL HISTORY OF appendectomy - PAST SURGICAL HISTORY OF dental procedures - PAST SURGICAL HISTORY OF diagnostic laparoscopy - PAST SURGICAL HISTORY OF 1998 wrist ganglion - PAST SURGICAL HISTORY OF Carpal tunnel release, left - TOTAL ABDOM HYSTERECTOMY 2003 Hysterectomy, AMANDA Allergies: ALLERGIES Allergen Reactions - Penicillins Hives, Anaphylaxis, Shortness of Breath - Chantix [Vareniclin* Other: See Comments Mood changes (irritability), flu like symptoms, body aching - Demerol [Meperidine* Other: See Comments Nausea - Dilaudid [Hydromorp* Mental Status Change - Latex Other: See Comments my skin starts pealing off Medications: azithromycin (ZITHROMAX) 250 mg tablet Take 2 tablets (500 mg) on Day 1, and then take 1 tablet (250 mg) on days 2 through 5. Estazolam 1 mg tablet TAKE ONE TABLET BY MOUTH nightly NEEDED FOR SLEEP FOR UP TO 30 DAYS Omeprazole 40 mg capsule Take 40 mg by mouth once daily. Cholecalciferol, Vitamin D3, 1,000 unit cap Take 1,000 Units by mouth once daily. VITAMIN D 50,000 unit capsule Take 1,000 Units by mouth once each week. HYDROcodone-acetaminophen (NORCO) 5-325 mg per tablet Take 1 tablet by mouth every 4 hours as needed. 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 Respiratory: Positive for cough. Gastrointestinal: Positive for abdominal distention, abdominal pain, blood in stool and nausea. Change in bowel habits. All other systems reviewed and are negative. Where do you currently reside? Independently Are you taking any blood thinners? No Physical Examination: Physical Exam Constitutional: She is oriented to person, place, and time and well-developed, well-nourished, and in no distress. HENT: Head: Normocephalic and atraumatic. Eyes: Conjunctivae are normal. No scleral icterus. Neck: Neck supple. Cardiovascular: Normal rate, regular rhythm and normal heart sounds. Pulmonary/Chest: Effort normal and breath sounds normal. Abdominal: Soft. Bowel sounds are normal. Musculoskeletal: She exhibits no edema. Neurological: She is alert and oriented to person, place, and time. Gait normal. Skin: Skin is warm and dry. Psychiatric: Mood, memory, affect and judgment normal. Assessment/Plan: There are no diagnoses linked to this encounter. This note was generated using Mashups voice recognition system, and there may be some incorrect words, spellings, and punctuation that were not noted in checking the note before saving. Madai Palafox Referring Provider: DELFIN CAMACHO [[id number]] Allergies As of Date: 07/21/2018 Noted Allergy Reaction PENICILLINS 06/24/2005 4 - Hives 10 - Anaphylaxis 12 - Shortness of Breath CHANTIX (VARENICLINE) 08/24/2016 14 - Other: See Comments Comments: Mood changes (irritability), flu like symptoms, body aching Demerol (MEPERIDINE (PF)) 05/14/2018 14 - Other: See Comments Comments: Nausea DILAUDID (HYDROMORPHONE (BULK)) 05/02/2014 1 - Mental Status Change LATEX 06/24/2005 14 - Other: See Comments Comments: my skin starts pealing off Date Reviewed: 07/21/2018 Reviewed by: Marcell Pereira - Fully Assessed Reason for Visit: Dyspepsia [418] Cmt: Abn MRI in [place] Reason For Visit History Recorded Primary Visit Diagnosis:Abnormal findings on diagnostic imaging of liver [R93.2] Other Visit Diagnosis:Diarrhea, unspecified type [R19.7] Order(s):cholestyramine (QUESTRAN) 4 gram packetTake by mouth as directed.Disp: 30 PacketRfl: 2 CA 19-9 BLD [PSVO389] Order #: [id number] FUTURE CEA BLD [SQCEA] Order #: [id number] FUTURE LIVER BIOPSY NEEDLE [38703RTD] Order #: [id number] FUTURE ALPHA FETOPROTEIN BL [SQAFP] Order #: [id number] FUTURE Prescriptions as of 07/21/2018 Sig: AZITHROMYCIN 250 MG TABLET Take 2 tablets (500 mg) on Da* ESTAZOLAM 1 MG TABLET TAKE ONE TABLET BY MOUTH nigh* OMEPRAZOLE 40 MG CAPSULE,NANO* Take 40 mg by mouth once ellen* CHOLECALCIFEROL (VITAMIN D3) * Take 1,000 Units by mouth onc* VITAMIN D2 50,000 UNIT CAPSULE Take 1,000 Units by mouth onc* CHOLESTYRAMINE (WITH SUGAR) 4* Take by mouth as directed. HYDROCODONE 5 MG-ACETAMINOPHE* Take 1 tablet by mouth every * Patient not taking: Reported on 07/21/2018 GABAPENTIN 100 MG CAPSULE Increase as directed up to 3 * Patient not taking: Reported on 07/21/2018 Problem List As Of Date 07/21/2018 Noted Resolved Pain in joint, pelvic region and thigh [M25.559]INVALID FOR*09/28/2016 Abdominal pain, right upper quadrant [R10.11] INVALID FOR*09/28/2016 More... Fever [R50.9] INVALID FOR*09/28/2016 More... Thrush [B37.0] INVALID FOR*09/28/2016 More... Insomnia [G47.00] INVALID FOR* Priority: F More... Vitamin D deficiency [E55.9] INVALID FOR* Priority: G Ganglion cyst of dorsum of right wrist [M67.431]INVALID FOR* Chest pain [R07.9] INVALID FOR*09/28/2016 Priority: A Weakness of right arm [R29.898] INVALID FOR* Priority: C Chronic fatigue [R53.82] INVALID FOR* Priority: C Tobacco abuse [Z72.0] INVALID FOR* Trigger thumb of right hand [M65.311] INVALID FOR* Right carpal tunnel syndrome [G56.01] INVALID FOR* Prescriptions ordered this encounter Disp Refills Start End CHOLESTYRAMINE (WITH SUGAR) 4 GRAM P* 30 P* 2 07/21/2018 Sig: Take by mouth as directed. Disposition: Return in about 2 months (around 09/20/2018). Follow-up and Disposition History Recorded Encounter Status:Closed by MARCELL PEREIRA MD on 07/21/18 MRI ABDOMEN W/ + W/O Observed: 07/20/2018 Status: F Source: [facility] CONTRAST 8:24 AM SYSTEM REPOSITORY Patient Name: NELSON HERRERA MRI Exam Date/Time 07/19/2018 13:00:08 EDT Exam MRI Abdomen w/ + w/o Contrast Ordering Physician MD JANICE, DELFIN LARA Accession Number [id number] CPT4 Codes 56734 () Reason For Exam hepatic lesion Report Clinical: 38-year-old female patient with a liver lesion seen previously on MRI examination done with MultiHance, on CT scan as an early enhancing lesion, on ultrasound as a hypoechoic entity. Follow-up with Eovist contrast enhanced was suggested to confirm or refute consideration of FNH. MRI of the abdomen, attention liver, pre and postcontrast scans, 07/19/2018. For contrast enhancement 8 mL of Eovist are injected IV. Axial and coronal T1 and T2-weighted images, including in phase and out of phase gradient echo T1-weighted images are obtained. Multiphasic dynamic contrast enhanced axial images are obtained. Postcontrast delayed 20 minute axial and coronal images are obtained. Diffusion-weighted scans with B values of 50/800 are obtained. The 2 cm lesion in the peripheral subcapsular aspect of the right lobe of the liver appears to be at the boundary of segment 5 and segment 8. It is T1 hypointense centrally with the slightly capsular hyperintense appearance, and the peripheral capsular portion is faintly T2 hyperintense. Dynamic contrast enhanced scans show enhancement of most of the lesion initially, with later images showing some central washout and persistent capsular enhancement. The enhancing capsular component has a somewhat nodular appearance. 20 minute delayed images do not show contrast within the central portion of the lesion, and this therefore excludes consideration of FNH. Diffusion-weighted scans show restricted diffusion. An atypical adenoma cannot be excluded, the initial central enhancement and washout, and the target appearance with persistent capsular enhancement do not allow exclusion of a biphenotypic tumor. No obvious biliary dilatation or capsular retraction to strongly favor ICC is seen. Follow-up with biopsy are suggested. A generalized fatty infiltration of the liver is suggested by the drop-off of signal on the out of phase gradient echo T1 scans. Absent gallbladder indicates status post cholecystectomy. Pancreas, spleen, adrenal glands, and kidneys are unremarkable. IMPRESSION: 1. A 2 cm lesion in the peripheral aspect of the right lobe of the liver, at boundary location between segment 5 and 8. 2. Differential diagnostic considerations are those of an atypical adenoma, and a hepatic neoplasm with no specific characteristics, possibility of biphenotypic tumor not excluded. Biopsy and follow-up are suggested. Findings discussed over the telephone with Dr. Greenberg at 9:27 AM 07/20/2018. Report Dictated on Workstation: [id number] Final Dictated: 07/20/2018 8:24 am Dictating Physician: MD LEON SHARDUL Signed Date and Time: 07/20/2018 9:29 am Signed by: MD LEON SHARDUL Transcribed Date and Time: 07/20/2018 8:24 MRI ABDOMEN W/ + W/O Observed: 06/21/2018 Status: F Source: [facility] CONTRAST 9:52 AM SYSTEM REPOSITORY Patient Name: NELSON HERRERA MRI Exam Date/Time 06/20/2018 10:21:47 EDT Exam MRI Abdomen w/ + w/o Contrast Ordering Physician MD GREENBERG CATHERINE Accession Number [id number] CPT4 Codes 96127 () Reason For Exam Hepatomegaly, not elsewhere classified Report MRI ABDOMEN WITHOUT AND WITH CONTRAST (WITH ATTENTION TO THE LIVER): CLINICAL INDICATION: Liver mass. TECHNIQUE: Coronal and transaxial fast spin density along with transaxial in phase and opposed phase gradient echo, fast T2 fat suppression sequences and diffusion-weighted sequences were formed through the abdomen with attention to the liver. Multiphase dynamic postcontrast transaxial T1 along with delayed coronal T1 fat suppression sequences were performed as well following administration of 17 mL MultiHance. COMPARISON: CT abdomen on 06/17/2018 FINDINGS: Liver: Normal size and contour. Hepatic steatosis. There is an arterial hyperenhancing lesion that does not demonstrate washout within the right hepatic lobe, corresponding to findings on prior CT and ultrasound. This measures 2 x 1.7 x 1.6 cm. Lesion demonstrates persistent enhancement on portal venous and delayed phase imaging. No additional enhancing liver lesions. No significant fat within the lesion. Lesion is slightly hypointense on T1 in phase imaging. The lesion is not seen on T2 imaging. The lesion doesn't demonstrate associated effusion on DWI. Biliary tree: No biliary dilatation. Spleen: Normal Adrenals:Normal Pancreas: Homogeneous enhancement without mass or peripancreatic fluid. Kidneys: Symmetric contrast enhancement without mass or hydronephrosis. Tiny cysts within the right kidney. Aorta: Normal caliber Visualized Osseous structures: Normal IMPRESSION: 1. Indeterminate arterial enhancing 2.0 cm liver lesion in the right hepatic lobe, which demonstrates persistent enhancement on delayed phase imaging. Differential includes atypical FNH and adenoma. Hypervascular metastatic disease is also within the differential. Further evaluation with abdominal MRI with Eovist gadolinium contrast and/or sulfur colloid nuclear scintigraphy is recommended. Biopsy could be considered depending on those results. 2. Hepatic steatosis. Report Dictated on Final Dictating Physician: MD JONES NEIL Signed Date and Time: 06/21/2018 10:27 am Signed by: MD JONES NEIL Transcribed Date and Time: 06/21/2018 10:28 CT ABDOMEN/PELVIS W/ Observed: 06/17/2018 Status: F Source: [facility]io CONTRAST 6:04 PM SYSTEM REPOSITORY Patient Name: NELSON HERRERA CT Exam Date/Time 06/17/2018 17:52:[address] Abdomen/Pelvis w/ IV Contrast (IV Onl Ordering Physician TG ROBIN RYAN Accession Number [id number] CPT4 Codes 64796 (CT Abdomen/Pelvis w/ IV Contrast (IV Onl), Q9967 () Reason For Exam ABDOMINAL PAIN Report Reason for examination: Abdominal pain. A CT scan of the abdomen and pelvis is performed. Axial images are obtained from the dome of the diaphragm through the ischial tuberosities following administration of IV contrast Isovue-370, 75 cc. Sagittal and coronal reconstructed images are reviewed. The heart is not enlarged. There is no pericardial effusion. No focal abnormality is seen at the lung bases. Evaluation of the abdominal viscera is performed. The liver is slightly low in attenuation suggesting mild fatty infiltration. There is a hyperdense mass in the right lobe of the liver laterally probably representing a hemangioma. It is estimated to measure approximately 1.7 cm in greatest dimension. No other focal masses are seen within the liver. There is no intrahepatic biliary ductal dilatation. The gallbladder has been removed. The spleen is normal in size and attenuation. The kidneys enhance symmetrically. No renal mass, calculus or hydronephrosis is identified. The abdominal aorta is normal in caliber. There is no retroperitoneal lymphadenopathy. The bowel loops are normal in caliber. There is no colonic mucosal thickening. The appendix has been removed. No inflammatory changes or fluid collections are seen within the mesentery. Within the pelvis, the urinary bladder is unremarkable. The uterus has been removed. There is a hypodense mass in the anterior left hemipelvis presumably representing a left ovary with multiple follicles. One of the follicles appears to have a hyperdense rim. There is no pelvic lymphadenopathy or free fluid. The osseous structures appear intact. IMPRESSION: Hyperdense mass in the right lobe of the liver measuring approximately 1.7 cm may represent a hemangioma. A sonogram performed on 05/19/2018 demonstrated a hypoechoic mass which is not typical of a hemangioma. Further evaluation with hepatic MRI is again suggested. Report Dictated on Final Dictating Physician: MD HARMON LAUREN B Signed Date and Time: 06/17/2018 6:14 pm Signed by: MD HARMON LAUREN B Transcribed Date and Time: 06/17/2018 6:15 HEMOGRAM W/ AUTODIFF Collected: 06/17/2018 Status: F Source: [facility]io 5:22 PM SYSTEM REPOSITORY TYPE CODE TESTS RESULT OUT OF REFERENCE UNITS RANGE LAB IWBC 3.6-10.7 10*3/uL WBC High 13.2 LAB RBC 3.80-5.20 10*6/uL RBC Normal 4.03 LAB HGB 11.7-16.0 g/dL Hemoglobin Normal 13.4 LAB HCT 35.0-47.0 % Hematocrit Normal 38.6 LAB MCV 79.0-98.0 fL MCV Normal 95.7 LAB MCH 26.0-34.0 pg MCH Normal 33.3 LAB MCHC 32.0-36.0 % MCHC Normal 34.8 LAB RDW 11.5-14.5 % RDW Normal 12.6 LAB PLT 140-440 10*3/uL Platelet Normal 211 LAB MPV 7.4-10.4 fL MPV Normal 8.5 LAB GRAN% 40.0-80.0 % Granulocytes Normal 78.9 LAB LYMP% 20.0-40.0 % Low Lymphocytes 13.6 LAB MONO% 2.0-10.0 % Monocytes Normal 5.4 LAB EOS% 1.0-6.0 % Eosinophils Normal 1.4 LAB BAS% 0.0-2.0 % Basophils Normal 0.7 LAB ANC 1.8-7.0 10*3/uL Abs High Neutrophile Cnt 10.4 LAB ALC 1.0-4.3 10*3/uL Abs Lymph Cnt Normal 1.8 LAB AMC 0.0-0.8 10*3/uL Abs Monocyte Normal Cnt 0.7 LAB AEC 0.0-0.5 10*3/uL Abs Eosin Cnt Normal 0.2 LAB ABC 0.0-0.2 10*3/uL Abs Baso Cnt Normal 0.1 Performed By: #### HEMDF, CMP3, LIPA4 #### [facility] [address] [place] [address] COMP METABOLIC PANEL Collected: 06/17/2018 Status: F Source: [facility]io 5:22 PM SYSTEM REPOSITORY TYPE CODE TESTS RESULT OUT OF RANGE REFERENCE UNITS LAB NA3 137-145 mmol/L Sodium Normal 137 LAB K3 3.5-5.1 mmol/L Normal Potassium 4.2 LAB CL3 98-107 mmol/L Chloride Normal 106 LAB CO23 22-30 mmol/L Carbon Normal Dioxide 24 LAB ANIN3 NA Anion Gap 8 LAB GLUC3 70-100 mg/dL Glucose Normal 96 LAB BUN3 7-20 mg/dL Urea Normal Nitrogen 12 LAB CRET3 0.52-1.25 mg/dL Normal Creatinine 0.62 LAB GF3BR >60 mL/min eGFR > 60.0 LAB GF3WR >60 mL/min eGFR OTHER > 60.0 Result Comment: Source- MDRD equation with creatinine calibration to IDMS(NKDEP) eGFR not recommended for drug dose adjustment LAB CA3 8.4-10.4 mg/dL Calcium Normal 9.3 LAB ALB3 3.5-5.0 g/dL Albumin, Serum Normal 4.4 LAB TP3 6.3-8.2 g/dL Total Protein Normal 7.2 LAB BILT3 0.2-1.3 mg/dL Normal Bilirubin,Total 0.7 LAB ALKP3 38-126 U/L Alkaline Normal Phosphatase 55 LAB ALT3 13-69 U/L ALT (SGPT) Normal 40 LAB AST3 15-46 U/L AST (SGOT) Normal 25 Performed By: #### HEMDF, CMP3, LIPA4 #### [employer] [address] [place] [address] LIPASE Collected: 06/17/2018 Status: F Source: fypio 5:22 PM SYSTEM REPOSITORY TYPE CODE TESTS RESULT OUT OF RANGE REFERENCE UNITS LAB LIPA4 23-300 U/L Normal Lipase 42 Performed By: #### HEMDF, CMP3, LIPA4 #### [employer] [address] [place] [address] URINALYSIS,MACRO Collected: 06/17/2018 Status: F Source: fypio 5:22 PM SYSTEM REPOSITORY TYPE CODE TESTS RESULT OUT OF REFERENCE UNITS RANGE LAB APPUR Clear NA Appearance CLOUDY LAB COLUR Lt. Yellow NA Color YELLOW LAB USG 1.005-1.030 NA Specific Normal [place],Urine 1.009 LAB UPH 5.0-8.0 NA pH,Urine Normal 6.5 LAB ULUK Negative NA Leukocytes NEG LAB UNIT Negative NA Nitrites NEG LAB UPRO Negative mg/dL Total Protein,Urine NEG LAB UGLU Negative mg/dL Glucose,Urine NEG LAB UKET Negative mg/dL Ketone,Urine NEG LAB UURO 0-1 mg/dL Urobilinogen 0.2 LAB UBIL Negative NA Bilirubin,Ur NEG LAB UBLD Negative {RBC}/uL Occult Blood,Ur NEG Performed By: #### UAMAC, UAMIC, HCGUR #### [employer] [address] [place] [address] URINALYSIS,MICROSCOPIC Collected: Status: F Source: [facility] 06/17/2018 5:22 PM [facility] REPOSITORY TYPE CODE TESTS RESULT OUT OF REFERENCE UNITS RANGE LAB WBCU 0-5 /[HPF] WBC,Urine 10 LAB RBCU 0-2 /[HPF] RBC,Urine 11 LAB EPIU 3-5 /[HPF] Epithelial Cells 1 + LAB MARLEEN Negative NA Bacteria 1 + LAB HYL 0-1 /[LPF] Cast, Hyaline 1 Performed By: #### UAMAC, UAMIC, HCGUR #### [employer] [address] [place] [address] HCG,URINE QUAL Collected: 06/17/2018 Status: F Source: fypio 5:22 PM SYSTEM REPOSITORY TYPE CODE TESTS RESULT OUT OF REFERENCE UNITS RANGE LAB HCGUR Negative NA Negative HCG,Urine Qual Result Comment: is the most common reason for HCG in urine, although choriocarcinoma, hydatidiform mole, and certain nontropho- blastic malignancies also result in detectable urinary HCG levels. Sensitivity = 20mIU/mL. Performed By: #### UAMAC, UAMIC, HCGUR #### [employer] [address] [place] [address] US ABDOMEN LIMITED Observed: 05/24/2018 Status: F Source: fypio 8:41 AM SYSTEM REPOSITORY Patient Name: NELSON HERRERA Ultrasound Exam Date/Time 05/19/2018 13:20:00 EDT Exam US Abdomen Limited Ordering Physician MD GREENBERG CATHERINE Accession Number [id number] CPT4 Codes 08853 () Reason For Exam abnormal ct Report Interpretation of this examination was delayed due to a delay in receiving a prior outside CT examination for correlation. This examination was received by sd for interpretation on 05/24/2018. CLINICAL INFORMATION: Hyperenhancing liver lesion identified on prior CTA chest examination. Prior cholecystectomy. Ultrasound right upper quadrant of abdomen: Correlation is made with the CTA chest examination of 05/14/2018 from [facility]. The gallbladder is absent compatible with a history of cholecystectomy. The common bile duct measures 4.3 mm which is within normal limits. There is a round somewhat well-defined hypoechoic lesion in the right lobe of the liver measuring 1.6 x 1.8 x 1.2 cm corresponding to the enhancing lesion seen on prior CT examination. There is no demonstrable internal blood flow flow, acoustic enhancement or well-defined wall. The appearance is not suggestive of a simple cyst or typical of a hemangioma. While this could be a complex cyst, a solid hepatic mass must be considered. The liver is otherwise grossly unremarkable in size and echogenicity. No other mass or intrahepatic biliary dilatation is seen. The pancreas and right kidney are grossly unremarkable in size and echogenicity. There is no ascites. Impression: 1. Well-defined up to 1.8 cm hypoechoic lesion in the right lobe of the liver without acoustic enhancement which does not have the sonographic appearance of a simple cyst or hemangioma. While this could be a complex cyst or, less likely, an atypical hemangioma, a solid liver mass must be considered (both benign and aggressive etiologies). Further evaluation with hepatic MRI is suggested. 2. Status post cholecystectomy. 3. No other significant sonographic abnormality of liver or biliary tree. Report Dictated on Workstation: [id number] Final Dictating Physician: MD SOTO HARLAN Signed Date and Time: 05/24/2018 8:50 am Signed by: MD SOTO HARLAN Transcribed Date and Time: 05/24/2018 8:51 12 LEAD ELECTROCARDIOGRAM Observed: 05/17/2018 Status: F Source: [place] 10:46 AM [facility] REPOSITORY [facility] [address] [place] [id number] Lead EKG 05/14/18 0914 MR#: [id number] Acct: [id number] Name: NELSON HERRERA Rep #: [id number] : 1980 38 From: Thomas Monaco MD Attending Dr: Status: DEP ER Ordering Dr: Cori Rudolph MD Date: 05/14/18 Location: ED Sex: F C Admitted: Test Reason : DIZZINESS Blood Pressure : / mmHG Vent. Rate : 085 BPM Atrial Rate : 085 BPM P-R Int : 144 ms QRS Dur : 078 ms QT Int : 358 ms P-R-T Axes : 026 053 036 degrees QTc Int : 426 ms Normal sinus rhythm Normal ECG Confirmed by THOMAS MONACO MD ([id number]), editor book BERNADETTE RIOS ([id number]) on 05/17/2018 10:46:14 AM Referred By: Confirmed By:THOMAS MONACO MD 05/17/18 1046 Date Thomas Monaco MD CC: No Primary Care Physician; Cori Rudolph MD Signed 12 LEAD ELECTROCARDIOGRAM Observed: 05/15/2018 Status: F Source: [place] 1:37 PM [facility] REPOSITORY [facility] Cardiovascular Services [address] [place] [address] 12 Lead EKG 05/14/18 0352 MR#: [id number] Acct: [id number] Name: NELSON HERRERA Rep #: [id number] : 1980 38 From: Thomas Monaco MD Attending Dr: Status: DEP ER Ordering Dr: Kathleen Negron Date: 05/14/18 Location: ED Sex: F C Admitted: Test Reason : CP Blood Pressure : / mmHG Vent. Rate : 120 BPM Atrial Rate : 120 BPM P-R Int : 140 ms QRS Dur : 070 ms QT Int : 326 ms P-R-T Axes : 055 053 038 degrees QTc Int : 460 ms Sinus tachycardia Nonspecific T wave abnormality Confirmed by THOMAS MONACO MD ([id number]), editor book BERNADETTE RIOS ([id number]) on 05/15/2018 1:36:33 PM Referred By: GEMMA Confirmed By:THOMAS MNOACO MD 05/15/18 1336 Date Thomas Monaco MD CC: No Primary Care Physician; Kathleen Negron Signed EMERGENCY DEPARTMENT Observed: 05/14/2018 Status: F Source: [place] SUMMARY 5:08 PM [facility] REPOSITORY [facility] Medical Records Department [address] [place] [address] Emergency Department Summary 05/14/18 0914 MR#: [id number] Acct: [id number] Name: NELSON HERRERA Rep #: [id number] : 1980 38 From: Cori Rudolph MD PCP: Mervin Physician, No Primary Status: DEP ER - ER Visit Summary Date of Service: 05/14/18 Chief Complaint: Dizziness History of Present Illness: The patient is a 38 F presenting with dizziness. Patient was just discharged from the ER. She did not leave the waiting room and checked back in. She complains of dizziness and feeling like she is going to pass out. While she was in the emergency department earlier today she had blood work as well as a CTA of her chest which was unremarkable other than a liver lesion which she was advised to follow-up with primary care physician. She denies fever. She has nausea with no vomiting. She has chest pain which she has had in the past. She complains of mild headache. Denies neck pain. Denies other complaints. Physical Examination: Vitals are stable. Patient is afebrile. Alert no acute distress. HEENT exam is unremarkable. Neck is supple. Lungs are clear and equal bilaterally. Heart is regular rate and rhythm. Abdomen is soft nontender nondistended. Extremities are unremarkable. Skin is warm and dry. No focal neurologic deficit. Remainder of exam is unremarkable. Emergency Department Course and Treatment: Patient given IV fluids, Zofran. Orthostatic vital signs are negative. EKG is sinus rate of 85 with no acute ischemic changes. Troponin was negative. Troponin was negative earlier today as well. Her chest pain is improved on reevaluation, she is complaining of headache. She was given Compazine and Benadryl IV with improvement of her headache. She is resting comfortably on reevaluation. She is advised to follow-up with Dr. Holloway telephone collector for no doc. Advised return to ED for worsening complaints. Disposition: Discharge home Impression: Dizziness, headache This note was generated with Mashups dictation software. It may contain incorrect words, spelling, and punctuation that were not noted in review of the chart prior to signing ED Disposition - Plan for ED Patient: Chief Complaint: Dizziness Referrals: Care Physician,No Primary [Primary Care Provider] - What to do if you have Problems For any increased pain, shortness of breath, bleeding, nausea or vomiting, chest pain, or any unexpected problems, contact your Primary Care Provider. Call [facility] ([phone]) or report to the closest Emergency Room. Call 911 if necessary. 05/14/18 1708 <Electronically signed by Cori Rudolph MD> Date Cori Rudolph MD Cosigner Signature (If Indicated): Date CC: No Primary Care Physician DISCHARGE INSTRUCTION Observed: 05/14/2018 Status: F Source: [place] 11:24 AM [facility] REPOSITORY [facility] Medical Records Department [address] [place] [address] Discharge Instruction 05/14/18 1123 MR#: [id number] Acct: [id number] Name: JAVIERNELSON Tyler Rep #: [id number] : 1980 38 From: Cori Rudolph MD PCP: Care Physician, No Primary Status: REG ER ED Disposition - Plan for ED Patient: Chief Complaint: Dizziness Instructions: ED Dizziness UKO Referrals: Care Physician,No Primary [Primary Care Provider] - Fast,Jennifer, DO [NON-STAFF] - What to do if you have Problems For any increased pain, shortness of breath, bleeding, nausea or vomiting, chest pain, or any unexpected problems, contact your Primary Care Provider. Call [facility] ([phone]) or report to the closest Emergency Room. Call 911 if necessary. 05/14/18 1124 <Electronically signed by Cori Rudolph MD> Date Cori Rudolph MD Cosigner Signature (If Indicated): Date CC: No Primary Care Physician TROPONIN-I Collected: 05/14/2018 Status: F Source: [place] 9:20 AM [facility] REPOSITORY TYPE CODE TESTS RESULT OUT OF RANGE REFERENCE UNITS LAB L501.4010 <0.045 ng/mL Normal < 0.015 TROPONIN-I Result Comment: TROPONIN-I EXPECTED VALUES <0.045 Negative 0.045 - 0.590 Consistent with Cardiac Damage > OR = 0.600 Critical Value Not every elevated troponin is indicative of IL. These values should be used with clinical judgement in examining the patient's clinical picture for diagnosis. To establish a diagnosis of IL versus myocardial injury, there must be a demonstrated rise and/or fall in the troponin values, in addition to ischemic symptoms, EKG changes, new regional wall motion abnormality, and/or angiographical evidence. PLEASE NOTE: REFERENCE RANGES EDITED 18 Performed By: #### L501.4010 #### Laboratory [address] [facility] [place], [address] BRAIN/HEAD WITHOUT Observed: 05/14/2018 Status: F Source: [place] CONTRAST 9:12 AM [facility] REPOSITORY [facility] Imaging Services [address] [place] [address] Brain/Head without Contrast MR#: [id number] Acct: [id number] Name: NELSON HERRERA Rep #: [id number] : 1980 F 38 From: Romaine Chand MD PCP: Care Physician, No Primary Status: REG ER Study: Brain/Head without Contrast Date of Exam: 05/14/18 Exam# [id number] Ordering Dr: Cori Rudolph MD STUDY: CT BRAIN WITHOUT CONTRAST REASON FOR EXAM: Female, 38 years old. Headache. Dizziness. RADIATION DOSAGE (If Supplied By Facility): CTDIvol = ( 44.99 ) mGy, DLP = ( 711.75 ) mGycm TECHNIQUE: Transaxial CT imaging of the brain was performed without administration of intravenous contrast material. Individualized dose optimization techniques were used for this CT. COMPARISON: April 25, 2018. FINDINGS: Normal soft tissue structures. Normal calvarium. Normal size ventricles and extra-axial spaces for the patient's age. Normal white matter tracts of the cerebral hemispheres. Stable lacunar infarct of the right basal ganglia. Normal brainstem. Normal cerebellum. There is no intracranial hemorrhage. There are no findings of an acute ischemic infarction. Normal visualized paranasal sinuses. CT/Brain/Head without Contrast IMPRESSION: Chronic involutional changes of the brain. No hemorrhage. Electronically Signed: Romaine Chand MD at 10:12 EDT , Service support , CC: No Primary Care Physician; Cori Rudolph MD Inverter And Clipper: Signed DISCHARGE INSTRUCTION Observed: 05/14/2018 Status: F Source: [place] 7:42 AM [facility] REPOSITORY [facility] Medical Records Department [address] [place] [address] Discharge Instruction 05/14/18 0740 MR#: [id number] Acct: [id number] Name: NELSON HERRERA Rep #: [id number] : 1980 38 From: Kathleen Negron PCP: Care Physician, No Primary Status: REG ER ED Disposition - Plan for ED Patient: Chief Complaint: Chest Other Instructions: ED Chest Pain Atypical Unkn Cause Referrals: Alyx Don MD [STAFF PHYSICIAN] - 3-5 Days Additional Instructions: You have a lesion in your liver on CAT scan. This REQUIRES MRI for further follow up. you MUST follow up with a primary provider. What to do if you have Problems For any increased pain, shortness of breath, bleeding, nausea or vomiting, chest pain, or any unexpected problems, contact your Primary Care Provider. Call [facility] ([phone]) or report to the closest Emergency Room. Call 911 if necessary. 05/14/18 0742 <Electronically signed by Kathleen Negron > Date Kathleen Gemma Cosigner Signature (If Indicated): Date CC: No Primary Care Physician EMERGENCY DEPARTMENT Observed: 05/14/2018 Status: F Source: [place] SUMMARY 7:40 AM [facility] REPOSITORY [facility] Medical Records Department [address] [place] [address] Emergency Department Summary 05/14/18 0415 MR#: [id number] Acct: [id number] Name: NELSON HERRERA Rep #: [id number] : 1980 38 From: Kathleen Negron PCP: Care Physician, No Primary Status: REG ER - ER Visit Summary Date of Service: 05/14/18 Chief Complaint: [Chest pain] History of Present Illness: The patient is a 38 F [who presents to the emergency department with chest pain. She describes as a band being squeezed around her chest and she felt like she could not breathe and she was nauseated and vomiting. She has this periodically in the middle of the night it wakes her up. Tonight it started while she was talking to her boyfriend. She had had several drinks. It kept coming and going and happened 3 times and that is when she called EMS. She has had a headache all day today but otherwise has been feeling well. She does have a history in the recent past of getting paresthesias and burning spots on her skin. She has seen a neurologist and a primary doctor but then lost her insurance. She does smoke. She does drink. She states she has not slept in the last several nights because she has a restless feeling in her body. She denies the possibility of .] Physical Examination: [] Blood pressure 165/95 heart rate 116 respiratory rate 20 WN WD NAD PERRL EOMI MMM NECK supple and nontender, no masses RRR no murmur rub or gallop, no peripheral edema, symmetric radial pulses CTAB no respiratory distress ABDOMEN is soft and nontender, normal bowel sounds, no distension, no rebound or guarding SKIN is warm and dry no rashes Alert and Oriented x3, CN II-XII in tact, no motor or sensory deficits, gait normal Anxious appearing No lymphadenopathy Test Results: [] Emergency Department Course and Treatment: [EKG is sinus tach at a rate of 120. Patient is very anxious but no obvious distress. Abdomen was unremarkable. Screening labs were obtained and were significant for a white blood cell count of 18.6. Did not have a clear etiology for this. A urinalysis was unremarkable chest x-ray was unremarkable. I did do a CTA at that time which showed a enhancing liver lesion but no other acute process. MRI was recommended to further evaluate this liver lesion. This was discussed with the patient and putting her discharge instructions. She does not have a primary care doctor. I did give her a referral. I encouraged her to follow-up and give her careful precautions for which to return. Her primary complaint was just diffuse muscle aches. And she cannot relax she just wants her body to relax. If she gets fever or uncontrolled symptoms she was invited to return back to the emergency department Treatment Plan: [] Disposition: [] Discharge Impression: [1. Chest pain 2. Liver lesion] This note was generated with Mashups dictation software. It may contain incorrect words, spelling, and punctuation that were not noted in review of the chart prior to signing ED Disposition - Plan for ED Patient: Chief Complaint: Chest Other Referrals: Care Physician,No Primary [Primary Care Provider] - What to do if you have Problems For any increased pain, shortness of breath, bleeding, nausea or vomiting, chest pain, or any unexpected problems, contact your Primary Care Provider. Call [facility] ([phone]) or report to the closest Emergency Room. Call 911 if necessary. 05/14/18 4648 <Electronically signed by Kathleen Negron > Date Kathleen Negron Cosigner Signature (If Indicated): Date CC: No Primary Care Physician CTA CHEST W/LUANA Observed: 05/14/2018 Status: F Source: [place] CONTRAST 5:31 AM [facility] REPOSITORY [facility] Imaging [address] [address] CTA Chest W/WO Contrast MR#: [id number] Acct: [id number] Name: NELSON HERRERA Rep #: [id number] : 1980 F 38 From: Teodoro Fagna MD PCP: Care Physician, No Primary Status: REG ER Study: CTA Chest W/WO Contrast Date of Exam: 05/14/18 Exam# [id number] Ordering Dr: Kathleen Negron STUDY: CTA CHEST REASON FOR EXAM: Female, 38 years old. Chest pain and tightness. Prior cholecystectomy. RADIATION DOSAGE (If Supplied By Facility): CTDIvol = ( 20.83 ) mGy, DLP = ( 573.62 ) mGycm TECHNIQUE: The examination was performed with the intravenous administration of 75ml ml of Isovue 370 contrast material. Post-processing of the angiographic images was performed, with multiplanar reformation and 3D reconstruction. Individualized dose optimization techniques were used for this CT. COMPARISON: Chest x-ray 05/14/2018. CT scan abdomen and pelvis 06/10/2014. FINDINGS: Normal enhancement of the main pulmonary artery and right and left pulmonary arteries. Normal enhancement of the bilateral peripheral pulmonary arteries. There is no demonstrated pulmonary embolism. Normal thoracic aorta and visualized great vessels. There is no demonstrated aortic dissection. Normal heart and pericardium. Normal mediastinum. Normal hilar regions. Normal visualized trachea and bronchi. There is mild atelectasis in the posterior lungs and lung bases. Otherwise lungs are well expanded. Normal pulmonary parenchyma. Normal pleura. Normal chest wall structures. There are degenerative changes of thoracic spine. As seen on series 2, axial images 11-18, there is a 1.6 cm hyper enhancing space-occupying lesion in the right lobe of the liver, not visible on previous CT exam.. CT/CTA Chest W/WO Contrast IMPRESSION: Normal CTA chest examination, without a demonstrated pulmonary embolism or arterial dissection. No evidence for acute cardiopulmonary pathology. Incidental finding of a 1.6 cm hyper enhancing space-occupying lesion in the right lobe of the liver. Would consider a follow-up MRI of liver for further characterization. Electronically Signed: Teodoro Fagan MD at 6:27 EDT , Service support , CC: No Primary Care Physician; Kathleen Negron Inverter And Clipper: Signed CHEST PA AND LATERAL Observed: 05/14/2018 Status: F Source: [place] 4:15 AM [facility] REPOSITORY [facility] Imaging Services [address] [place] [address] Chest PA and Lateral MR#: [id number] Acct: [id number] Name: NELSON HERRERA Rep #: [id number] : 1980 F 38 From: Teodoro Fagan MD PCP: Care Physician, No Primary Status: REG ER Study: Chest PA and Lateral Date of Exam: 05/14/18 Exam# [id number] Ordering Dr: Kathleen Negron STUDY: X-RAY CHEST REASON FOR EXAM: Female, 38 years old. Tightness in the chest. Denies shortness of breath or pain. TECHNIQUE: Frontal and lateral views of the chest. COMPARISON: 05/11/2017. FINDINGS: The lungs are clear and expanded. There is no demonstrated pleural abnormality. Normal size heart. Normal mediastinum and ismone. Normal visualized pulmonary arteries. Normal visualized aortic arch and descending thoracic aorta. Normal visualized thoracic spine. Normal visualized ribs, clavicles, and shoulders. There is no demonstrated abnormality of the visualized soft tissue structures of the upper abdomen. RAD/Chest PA and Lateral IMPRESSION: Normal x-ray examination of the chest. Electronically Signed: Teodoro Fagan MD at 5:03 EDT , Service support , CC: No Primary Care Physician; Kathleen Negron Inverter And Clipper: Signed BASIC METABOLIC Collected: 05/14/2018 Status: F Source: [place] PROFILE (BMP) 4:03 AM [facility] REPOSITORY TYPE CODE TESTS RESULT OUT OF RANGE REFERENCE UNITS LAB L501.0100 74-106 mg/dL High GLU 111 Result Comment: Fasting Glucose result from 100 to 125 mg/dL suggests IMPAIRED HOMEOSTASIS per A.D.A. criteria. Please note revised GLUCOSE reference range effective 2017. LAB L501.1000 7-18 mg/dL Normal BUN 10 LAB L501.1100 0.55-1.02 mg/dL Normal CREAT,SERUM 0.72 Result Comment: The validity of the calculated GFR AND GFRAA in patients over 70 years has not been determined. Clinical correlation is essential. LAB L501.1110 >60 mL/min Normal EST GFR 97 Result Comment: Non- GFR Calc LAB L501.1115 >60 mL/min Normal EST GFR - AA 118 Result Comment: GFR Calc LAB L501.1255 ml/min Normal Estimated CRCL 92.38 LAB L501.1300 10-20 RATIO Normal BUN/CRE 14.0 LAB L501.2200 8.5-10 mg/dL Normal .1 CA 8.8 LAB L501.5300 136-14 mmol/L Normal 5 NA 140 LAB L501.5600 3.5-5. mmol/L Normal 1 K 3.8 LAB L501.5900 98-107 mmol/L Normal CL 105 LAB L501.6100 21.0-3 mmol/L Normal 2.0 CO2 24.0 LAB L501.6200 5-15 Normal GAP 11 Performed By: #### L500.2500, L500.3400, L501.2450, L501.4010, L501.5200, L501.9520 #### Laboratory [address] [place], [place], [id number] LIVER PROFILE Collected: 05/14/2018 Status: F Source: [place] 4:03 AM [facility] REPOSITORY TYPE CODE TESTS RESULT OUT OF RANGE REFERENCE UNITS LAB L501.1500 6.4-8.2 g/dL Normal T PROT 8.2 LAB L501.1800 3.2-5.0 g/dL Normal ALB 4.2 LAB L501.1950 2.2-4.2 g/dL Normal GLOB 4.0 LAB L501.4100 15-37 U/L Normal AST 28 LAB L501.4305 45-117 U/L Normal ALK P 68 LAB L501.4405 13-56 U/L Normal ALT 54 LAB L501.4600 0.20-1.00 mg/dL Normal T BILI 0.20 LAB L501.4700 0.00-0.30 mg/dL Normal D BILI 0.07 Performed By: #### L500.2500, L500.3400, L501.2450, L501.4010, L501.5200, L501.9520 #### Laboratory [address] [facility]. [place], [place], [address] LIPASE Collected: 05/14/2018 Status: F Source: [place] 4:03 [facility] REPOSITORY TYPE CODE TESTS RESULT OUT OF RANGE REFERENCE UNITS LAB L501.2450 73-393 U/L Normal LIPASE 138 Performed By: #### L500.2500, L500.3400, L501.2450, L501.4010, L501.5200, L501.9520 #### Laboratory [address] [facility]. [place], [place], [address] TROPONIN-I Collected: 05/14/2018 Status: F Source: [place] 4:03 [facility] REPOSITORY TYPE CODE TESTS RESULT OUT OF RANGE REFERENCE UNITS LAB L501.4010 <0.045 ng/mL Normal < 0.015 TROPONIN-I Result Comment: TROPONIN-I EXPECTED VALUES <0.045 Negative 0.045 - 0.590 Consistent with Cardiac Damage > OR = 0.600 Critical Value Not every elevated troponin is indicative of IL. These values should be used with clinical judgement in examining the patient's clinical picture for diagnosis. To establish a diagnosis of IL versus myocardial injury, there must be a demonstrated rise and/or fall in the troponin values, in addition to ischemic symptoms, EKG changes, new regional wall motion abnormality, and/or angiographical evidence. PLEASE NOTE: REFERENCE RANGES EDITED 18 Performed By: #### L500.2500, L500.3400, L501.2450, L501.4010, L501.5200, L501.9520 #### Laboratory [address] [place], [place], [address] MAGNESIUM Collected: 05/14/2018 Status: F Source: [place] 4:03 AM [facility] REPOSITORY TYPE CODE TESTS RESULT OUT OF RANGE REFERENCE UNITS LAB L501.5200 1.6-2.6 mg/dL Normal MG 2.0 Performed By: #### L500.2500, L500.3400, L501.2450, L501.4010, L501.5200, L501.9520 #### Laboratory [address] [facility] [place], [place], [id number] THYROID STIM HORMONE Collected: 05/14/2018 Status: F Source: [place] (TSH) 4:03 AM [facility] REPOSITORY TYPE CODE TESTS RESULT OUT OF RANGE REFERENCE UNITS LAB L501.9520 0.358-3.74 uIU/mL Normal TSH 3.51 Performed By: #### L500.2500, L500.3400, L501.2450, L501.4010, L501.5200, L501.9520 #### Laboratory [address] [place], [place], [id number] CBC W/DIFF, AUTOMATED Collected: 05/14/2018 Status: C Source: [place] 4:03 AM [facility] REPOSITORY TYPE CODE TESTS RESULT OUT OF RANGE REFERENCE UNITS LAB L100.1000 4.4-11.0 K/mm3 High WBC 18.6 LAB L100.1200 4.2-5.4 M/mm3 Normal RBC 4.30 LAB L100.1300 12.0-15.0 g/dl Normal HGB 14.4 LAB L100.1400 37-47 % Normal HCT 41.4 LAB L100.1500 81-99 fL Normal MCV 96.3 LAB L100.1600 27.0-32.0 pg High MCH 33.5 LAB L100.1700 32-36 g/gl Normal MCHC 34.8 LAB L100.1810 11.6-14.6 % Normal RDW CV 13.3 LAB L100.1820 35.1-43.9 fl High RDW SD 45.6 LAB L100.1900 150-450 K/mm3 Normal PLT 278 LAB L100.2000 6.2-12.0 fl Normal MPV 10.1 LAB L100.2100 47-70 % Normal NEUT% 67.0 LAB L100.2200 19-41 % Normal LY% 21.4 LAB L100.2300 0-10 % Normal MONO% 6.8 LAB L100.2400 0-5 % Normal EO% 2.3 LAB L100.2500 0-1 % Normal BASO% 0.5 LAB L100.2550 0.0-0.9 % High IM GRAN % 2.000 Result Comment: IG% - Immature Granulocytes (promyelocytes, myelocytes and metamyelocytes) > 1% indicates that a LEFT SHIFT is Present. LAB L100.2620 2.0-7.7 X10 3/uL High Absolute Neut 12.4 LAB L100.2720 0.83-4.51 X10 3/ul Normal Absolute Lymph 3.97 LAB L100.9900 Normal PATH REV Reviewed Result Comment: Neutrophilic leukocytosis. Clinical correlation suggested. Ga Mao D.O. 05/15/18 AMENDED REPORT 05/15/18 1206 PATH REV previously reported as: February Performed By: #### L100.0100 #### Laboratory [address] [facility]. [place], [place], [id number] ,SERUM,HCG QUALI. Collected: Status: F Source: [place] 05/14/2018 4:03 AM [facility] REPOSITORY TYPE CODE TESTS RESULT OUT OF REFERENCE UNITS RANGE LAB L700.7000 0-9 Nonpreg Negative Normal HCGSQUAL NEGATIVE LAB L700.6700 =>Qualitative mIU/mL Normal HCG Qual < 1 triggr Performed By: #### L700.6800 #### Laboratory [address] [facility] [place], [address] URINALYSIS, COMPLETE Collected: 05/14/2018 Status: F Source: [place] 4:02 AM [facility] REPOSITORY Order Comment: Order Date: 05/14/18 How was Urine Obtained? SIGNALS INTELLIGENCE ANALYST TO SPECIFY TYPE CODE TESTS RESULT OUT OF RANGE REFERENCE UNITS LAB L400.3000 Yellow COLOR Normal Straw LAB L400.3050 Clear Normal CLARITY Clear LAB L400.3200 Normal mg/dl Normal GLUCOSE, UR Normal LAB L400.3300 Negative mg/dL Normal BILIRUBIN URINE Negative LAB L400.3400 Negative mg/dl Normal KETONE UR Negative LAB L400.3465 1.002-1.030 Normal SP.GR. DIPSTX 1.005 LAB L400.3550 5.0 - 8.0 pH UR Normal 7.0 LAB L400.3600 Negative mg/dl PROT Normal DIPSTX Negative LAB L400.3700 Normal mg/dl Normal UROBILI Normal LAB L400.3750 Negative Normal NITRITE UR Negative LAB L400.3780 Negative /ul Normal OCCULT BLOOD-UR Negative LAB L400.3800 Negative /ul LEUK Normal ESTERASE Negative LAB L400.4050 0-5 /hpf WBC 0 Normal SEEN LAB L400.4100 0-5 /hpf 0 Normal RBC-UA SEEN LAB L400.4150 5-10 /hpf SQUAM 0 Normal EPI SEEN LAB L400.4300 None Seen /hpf 0 Normal BACTERIA SEEN LAB L400.4350 <or=2+ /hpf 0 Normal MUCUS, URINE SEEN Performed By: #### L400.0001 #### Laboratory [address] [place], [place], [address] URINE DRUG SCREEN Collected: 05/14/2018 Status: F Source: [place] (MARLEN) 4:02 AM [facility] REPOSITORY TYPE CODE TESTS RESULT OUT OF RANGE REFERENCE UNITS LAB L505.0075 TO BE Normal CONFIRMED Result Comment: CONFIRMATORY TESTING FOR ALL POSITIVE URINE DRUG SCREEN RESULTS WILL ONLY BE SENT OUT UPON PHYSICIAN ORDER. Agent PandaTA Urine Drug Screen methods provide only preliminary analytical test results. A more specific alternate chemical method must be used in order to obtain a confirmed analytical result. Gas chromatography/mass spectrometery (GC/MS) is the preferred confirmatory method. Clinical consideration and professional judgement should be applied to any drug of abuse test result, particularly when preliminary positive results are used. URINE TCA TESTING MUST BE ORDERED SEPARATELY. USE TEST MNEMONIC: [facility] L505.5005 VISTA UDS PH 7 Normal LAB L505.5015 <1000 ng/mL AMPHETAMINES Normal NEGATIVE LAB L505.5025 < 200 ng/mL BARBITIURATES Normal NEGATIVE LAB L505.5035 < 200 ng/mL BENZODIAZIPINE Normal NEGATIVE LAB L505.5045 < 300 ng/mL COCAINE Normal NEGATIVE LAB L505.5055 < 500 ng/mL ECSTACY Normal NEGATIVE LAB L505.5065 < 300 ng/mL METHADONE Normal NEGATIVE LAB L505.5075 < 300 ng/mL OPIATES Normal NEGATIVE LAB L505.5085 < 25 ng/mL PCP Normal NEGATIVE LAB L505.5095 < 50 ng/mL THC Normal NEGATIVE Performed By: #### L505.5000 #### Laboratory [address] [facility] [place], [address] EMERGENCY DEPARTMENT Observed: 04/25/2018 Status: F Source: [place] SUMMARY 11:57 PM [facility] REPOSITORY [facility] Medical Records Department [address] [facility] [place] [place] [address] Emergency Department Summary 04/25/18 2323 MR#: [id number] Acct: [id number] Name: NELSON HERRERA Rep #: [id number] : 1980 38 From: Vishal Matson MD PCP: Care Physician, No Primary Status: REG ER - ER Visit Summary Date of Service: 04/25/18 Chief Complaint: Wooshing sensation use inside my head. Alternating bitemporal headache History of Present Illness: The patient is a 38 F no significant past medical history. Multiple prior abdominal surgeries. Patient states that for 3 weeks she has had an abnormal sensation in her head. And more recently has had alternating bitemporal headache. That primarily started last night. She denies any problems moving her arms and legs. In the past she was going to have an MRI of her brain and a larger neurology workup but lost her insurance and could not get that done. She denies any head trauma. She denies any fever. She denies any strokelike symptoms. Physical Examination: Well-appearing female vital signs are stable afebrile. H EENT exam unremarkable. No signs of trauma to her head or face. No facial droop. Pupils are round reactive light. Normal speech. Neck nontender. Lungs clear to auscultation bilaterally. Heart regular rhythm no murmur. Abdomen soft nontender. She is moving all 4 extremities. They are neurovascularly intact. 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 Plantar flexion intact. Back exam normal skin exam normal neurologically she is awake and alert with no focal motor deficits. Normal speech. Fingertip to nose within normal limits [id number] within normal limits. NIH score is 0. Test Results: CT of her brain shows chronic changes and right insular lobe infarct per the radiologist. I did review the film. Emergency Department Course and Treatment: Repeat exam she was given IV fluids, Toradol and Benadryl her headache is not significantly different or improved. She will be given IV Nubain. Her repeat neurologic exam at 2315 remains normal. Treatment Plan: Discharged to home. Follow-up with Dr. Quintero for further neurologic evaluation. Disposition: Discharge Impression: Acute atypical cephalgia This note was generated with Mashups dictation software. It may contain incorrect words, spelling, and punctuation that were not noted in review of the chart prior to signing ED Disposition - Plan for ED Patient: Chief Complaint: Dizziness Referrals: Care Physician,No Primary [Primary Care Provider] - What to do if you have Problems For any increased pain, shortness of breath, bleeding, nausea or vomiting, chest pain, or any unexpected problems, contact your Primary Care Provider. Call [facility] ([phone]) or report to the closest Emergency Room. Call 911 if necessary. 04/25/18 4499 <Electronically signed by Vishal Matson MD> Date Vishal Matson MD Cosigner Signature (If Indicated): Date CC: No Primary Care Physician DISCHARGE INSTRUCTION Observed: 04/25/2018 Status: F Source: [place] 11:57 PM [facility] REPOSITORY [facility] Medical Records Department [address] [place] [address] Discharge Instruction 04/25/187 MR#: [id number] Acct: [id number] Name: NELSON HERRERA Rep #: [id number] : 1980 38 From: Vishal Matson MD PCP: Care Physician, No Primary Status: REG ER ED Disposition - Plan for ED Patient: Disposition: Home or Assisted Living Chief Complaint: Dizziness Instructions: ED Dizziness [facility] Referrals: Pato Quintero MD [STAFF PHYSICIAN] - As soon as possible Additional Instructions: Call and follow-up with the neurologist for further evaluation and possible MRI. Return to ER if you are feeling worse. What to do if you have Problems For any increased pain, shortness of breath, bleeding, nausea or vomiting, chest pain, or any unexpected problems, contact your Primary Care Provider. Call [facility] Registry ([phone]) or report to the closest Emergency Room. Call 911 if necessary. 04/25/18 0847 <Electronically signed by Vishal Matson MD> Date Vishal Matson MD Cosigner Signature (If Indicated): Date CC: No Primary Care Physician BRAIN/HEAD WITHOUT Observed: 04/25/2018 Status: F Source: [place] CONTRAST 9:41 PM [facility] REPOSITORY [facility] Imaging Services [address] [place] [address] Brain/Head without Contrast MR#: [id number] Acct: [id number] Name: NELSON HERRERA Rep #: [id number] : 1980 F 38 From: Rogelio Manriquez MD PCP: Care Physician, No Primary Status: REG ER Study: Brain/Head without Contrast Date of Exam: 04/25/18 Exam# [id number] Ordering Dr: Vishal Matson MD STUDY: CT BRAIN WITHOUT CONTRAST REASON FOR EXAM: Female, 38 years old. Dizzy, left-sided head pain RADIATION DOSAGE (If Supplied By Facility): CTDIvol = ( 44.99 ) mGy, DLP = ( 745.49 ) mGycm TECHNIQUE: Transaxial CT imaging of the brain was performed without administration of intravenous contrast material. Individualized dose optimization techniques were used for this CT. COMPARISON: None. FINDINGS: Normal soft tissue structures. Normal calvarium. Normal size ventricles and extra-axial spaces for the patient's age. There are areas of decreased attenuation within the white matter tracts of the supratentorial brain, consistent with microvascular disease changes. There is an old lacunar infarct of the right insular lobe. Normal basal ganglia and thalami. Normal brainstem. Normal cerebellum. There is no intracranial hemorrhage. There are no findings of an acute ischemic infarction. Normal visualized paranasal sinuses. CT/Brain/Head without Contrast IMPRESSION: Chronic involutional changes of the brain. 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 Electronically Signed: Rogelio Manriquez MD at 22:28 EDT , Service support , CC: No Primary Care Physician; Vishal Matson MD Inverter And Clipper: Signed EMERGENCY DEPARTMENT Observed: 04/05/2018 Status: F Source: [place] SUMMARY 10:40 PM [facility] REPOSITORY [facility] Medical Records Department [address] [place] [address] Emergency Department Summary 04/05/18 2232 MR#: [id number] Acct: [id number] Name: NELSON HERRERA Rep #: [id number] : 1980 38 From: Cori Rudolph MD PCP: Care Physician, No Primary Status: REG ER - ER Visit Summary Date of Service: 04/05/18 Chief Complaint: Right eye pain History of Present Illness: The patient is a 38 F presenting with right eye pain. States it started around 6 PM today. She felt like she may have gotten something in her eye. She was rubbing her eye. No chemical exposure. She complains of right eye pain, burning, itching, tearing. No vision changes. She does not wear contacts. She wears glasses as needed. No fever or other complaints. Physical Examination: Vitals are stable. Patient is afebrile. Alert no acute distress. HEENT exam PERRLA, EOMI. Eyelids are everted with no foreign body visualized. Neck is supple. Lungs are clear and equal bilaterally. Heart is regular rate and rhythm. Extremities are unremarkable. Skin is warm and dry. Remainder of exam is unremarkable. Emergency Department Course and Treatment: Tetracaine was instilled in the right eye with improvement of her symptoms. She has fluorescein uptake at 9:00 oclock. She is given bacitracin ophthalmic ointment. She is advised to follow- up with ophthalmology. Advised return to ED for any worsening complaints. Disposition: Discharge home Impression: Corneal abrasion This note was generated with Mashups dictation software. It may contain incorrect words, spelling, and punctuation that were not noted in review of the chart prior to signing ED Disposition - Plan for ED Patient: Chief Complaint: Eye Problem Referrals: Care Physician,No Primary [Primary Care Provider] - What to do if you have Problems For any increased pain, shortness of breath, bleeding, nausea or vomiting, chest pain, or any unexpected problems, contact your Primary Care Provider. Call [facility] Registry ([phone]) or report to the closest Emergency Room. Call 911 if necessary. 04/05/180 <Electronically signed by Cori Rudolph MD> Date Cori Rudolph MD Cosigner Signature (If Indicated): Date CC: No Primary Care Physician DISCHARGE INSTRUCTION Observed: 04/05/2018 Status: F Source: [place] 10:39 PM [facility] REPOSITORY [facility] Medical Records Department [address] [place] [address] Discharge Instruction 04/05/188 MR#: [id number] Acct: [id number] Name: NELSON HERRERA Rep #: [id number] : 1980 38 From: Cori Rudolph MD PCP: Care Physician, No Primary Status: REG ER ED Disposition - Plan for ED Patient: Chief Complaint: Eye Problem Instructions: ED Eye Injury Corneal Abrasion Referrals: Care Physician,No Primary [Primary Care Provider] - Zafar Duarte MD [STAFF PHYSICIAN] - What to do if you have Problems For any increased pain, shortness of breath, bleeding, nausea or vomiting, chest pain, or any unexpected problems, contact your Primary Care Provider. Call [facility] ([phone]) or report to the closest Emergency Room. Call 911 if necessary. 04/05/18 8986 <Electronically signed by Cori Rudolph MD> Date Cori Rudolph MD Cosigner Signature (If Indicated): Date CC: No Primary Care Physician ALLERGIES ALLERGIES DATE TYPE / NAME / CODE REACTION SEVERITY SOURCE CODE 10/30/2018 Drug hydromorphone ITCHY Unknown [place] Allergy/41 HCl/X098718786(RXNO Community 1171151([facility]) Repository 10/30/2018 Drug Penicillins/E920126 Shortness of Unknown [place] Allergy/41 476(RXNORM) breath Community 9704054([facility]) Repository 10/30/2018 Drug propoxyphene/D45162 Nausea Unknown [place] Allergy/41 1574(RXNORM) Community 1230636([facility]) Repository 10/30/2018 Drug acetaminophen/F0060 Nausea Unknown [place] Allergy/41 46619(RXNORM) Community 0147402([facility]) Repository 10/30/2018 Drug meperidine/B2000826 Nausea Unknown [place] Allergy/41 20(RXNORM) Community 2458811([facility]) Repository 10/30/2018 Drug latex/N824172681(RX [place]RIATION, OR [place] Allergy/41 NORM) IF SHE INGEST [facility] 4653081(SN SHE VOMITS. Hospital OMED CT) Repository 10/30/2018 Drug varenicline/C898361 Other Unknown [place] Allergy/41 508(RXNORM) Community 6907043( Hospital OMED CT) Repository 05/14/2018 DRUG/59424 MEPERIDINE (PF) OTHER: SEE [facility] 1003(SNOME Other [place] D CT) Repository 08/24/2016 DRUG VARENICLINE OTHER: SEE C [facility] INGREDI/41 Main [place] 5100701(SN Repository OMED CT) 05/02/2014 DRUG/40620 HYDROMORPHONE Mental Chg [facility] 1003(SNOME (BULK) Main [place] D CT) Repository 06/24/2005 Drug PENICILLINS HIVES [facility] Class/4195 Main [place] [address]018(SNOM Repository ED CT) 06/24/2005 Environ/42 LATEX OTHER: SEE [facility] 3782161( Main [place] OMED CT) Repository NG/8350811 PENICILLINS [facility] 06(SNOMED Health System CT) Repository NG/5384275 VARENICLINE [facility] 06(SNOMED Health System CT) Repository NG/5203190 MEPERIDINE (PF) [facility] 06(SNOMED Health System CT) Repository NG/1519645 LATEX [facility] 06(SNOMED [facility] CT) Repository NG/8206529 HYDROMORPHONE [facility] 06(SNOMED (BULK) Health System CT) Repository ENCOUNTERS ENCOUNTERS ADMIT/DISCHARGE ACCOUNT NUMBER ADMITTING ENCOUNTER LOCATION SOURCE CLASS 11/02/2018/11/04/19 [id number] JOSY GONSALES Inpatient [place] [address] Encounter Clinic Other [place] Repository 11/02/2018/11/04/19 [id number] [facility] Inpatient [place] [facility] 19 S Encounter GENERAL [facility] MEDICAL Repository CENTERBuildi nRoom: 5109Bed: 10/30/2018/11/02/19 [id number] [place], Ambulatory [place] [facility] ding:[place]3Whge Repository : RE628Vmp: 10/30/2018 [id number] [place], Ambulatory BMSBuilding: [place] [facility]via BMS.Critical access hospital Repository 10/30/2018 [id number] [place], Ambulatory BMSBuilding: [place] BMS.CF.[facility] Repository 10/30/2018 [id number] [place], Ambulatory BMSBuilding: [place] Sylvia BMS.Critical access hospital Repository 10/30/2018 [id number] [place], Ambulatory BMSBuilding: [place] [facility] BMS.Critical access hospital Repository 10/30/2018 [id number] [place], Ambulatory BMSBuilding: [place] Sylvia BMS.CF.[facility] Repository 10/30/2018 [id number] [place], Ambulatory BMSBuilding: [place] Sylvia BMS.Critical access hospital Repository 10/19/2018/10/19/19 [id number] JOSY GONSALES Inpatient [address] Repository 10/19/2018/10/19/19 [id number] [facility] [address] MEDICAL Repository CENTERBuildi ng:AKORRoom: POOLBed: 23 10/12/2018 [id number] [facility] Repository 10/12/2018/10/12/19 [id number] Ambulatory [address] MEDICAL Repository CENTERBuildi ng:AKLB 10/12/2018/10/12/19 [id number] Ambulatory [address] Other [place] Repository 10/12/2018/10/12/19 [id number] Ambulatory [address] MEDICAL Repository CENTERBuildi ng:AKPAT 09/05/2018/09/11/20 [id number] Ambulatory [address] Other [place] Repository 09/05/2018/09/11/20 [id number] Ambulatory [address] MEDICAL Repository CENTERBuildi ng:AGGENS1 08/07/2018 [id number] Ambulatory [facility] Repository 08/07/2018 [id number] Ambulatory [address] [place] [address] GLM2Fqcc: System [id number]: Repository [id number] 08/02/2018 [id number] Ambulatory [facility] Repository 08/02/2018 [id number] Ambulatory [facility] Repository 07/21/2018/07/21/20 [id number] Ambulatory [address] Main [place] Repository 07/19/2018 [id number] Ambulatory [facility] Repository 07/17/2018 [id number] Ambulatory [facility] Repository 06/20/[id number] [facility] Repository 06/17/[id number] [facility] EDRoom: 2A System 444Bed: Repository [id number] 05/19/[id number] [facility] Repository 05/14/2018/05/14/20 [id number] Emergency [place] [facility] ding:ED Repository 05/14/2018/05/14/20 [id number] Emergency [place] [facility] ding:ED Repository 04/25/2018/04/26/20 [id number] Emergency [place] [facility] [facility] ding:ED Repository 04/05/2018/04/05/20 [id number] Emergency [place] [facility] ding:ED Repository PAYERS PAYERS ENCOUNTER GUARANTOR PAYER SUBSCRIBER SOURCE 11/02/2018 NELSON Scott Primary Insurance:O NELSON Martinez General NOEDOB: [facility] PLUSPolmethodist jennie edmundson NOEDOB: [facility] System Number: [id number] Repository [place] [id number] [place], [place] Date: [address]Qlp: () 11/02/2018 Secondary NELSON Martinez General Insurance:[facility] NOEDOB: Health System MEDICAIDPolicy [id number] Repository Number: [id number] Date: 10/30/2018 NELSON DYER Primary NELSON BARRETTLE Insurance:MEDICAL NOEDOB: [facility] [id number] Hospital [address]Bbh: 330) Number: Repository [phone] (HP) [id number] Date:9617-32-01EJ [address] [place] [address]KH: 10/30/2018 Secondary NELSON Craftoster Insurance:BUCKEYE NOEDOB: [facility] [id number] [facility] PLANPolmethodist jennie edmundson Number: Repository [id number] Date:8146-08-53TP [address] [place] [address]EL: 10/30/2018 Tertiary NOT GIVENUNK [place] Insurance:SELF PAY [facility] Number: Effective Repository Date:2018-10-30 10/30/2018 NELSON DYER Primary NELSON Scott [place] Insurance:MEDICAL NOEDOB: [facility] [id number] Hospital [address]Xxe: (330) Number: Repository [phone] () [id number] Date:5016-44-50MB [address] [place] [address]EC: 10/30/2018 Secondary NELSON Scott [place] Insurance:BUCKEYE NOEDOB: [facility] [id number] [facility] Medical CenterPolicy Number: Repository [id number] Date:8869-04-28ML [facility] [address] [place] [address]GT: 10/30/2018 Tertiary NOT GIVENUNK [place] Insurance:SELF PAY [facility] Number: Effective Repository Date:2018-10-30 10/30/2018 NELSON DYER Primary NELSON Scott [place] Insurance:MEDICAL NOEDOB: [facility] [id number] Hospital [address]Xme: (330) Number: Repository [phone] () [id number] Date:1529-97-50GZ [place] [phone]: 10/30/2018 Secondary NELSON Scott [place] Insurance:BUCKEYE NOEDOB: [facility] [id number] Hospital PLANPolicy Number: Repository [id number] Date:1735-46-93VS [address]OX [facility][note 2]DEJAN COLON [address]ZM: 10/30/2018 Tertiary NOT GIVENUNK [place] Insurance:SELF PAY [facility] Number: Effective Repository Date:2018-10-30 10/30/2018 NELSON DYER Primary NELSON Shaw [place] Insurance:MEDICAL NOEDOB: [facility] [id number] Hospital [address]Std: (330) Number: Repository [phone] () [id number] Date:3522-91-30EJ [address] [place] [address]GV: 10/30/2018 Secondary NELSON Scott [place] Insurance:BUCKEYE NOEDOB: [facility] [id number] Hospital PLANPolicy Number: Repository [id number] Date:4861-01-26ZZ [address] [place] [address]WF: 10/30/2018 Tertiary NOT GIVENUNK [place] Insurance:SELF PAY [facility] Number: Effective Repository Date:2018-10-30 10/30/2018 NELSON DYER Primary NELSON Scott [place] Insurance:MEDICAL NOEDOB: [facility] [id number] [address]Tel: (330) Number: Repository [phone] () [id number] Date:3747-65-73XU [address] [place], [place] [address]WP: 10/30/2018 Secondary NELSON Scott [place] Insurance:BUCKEYE NOEDOB: [facility] [id number] Hospital PLANPolicy Number: Repository [id number] Date:6338-60-14ML [address] [place] [address]JQ: 10/30/2018 Tertiary NOT GIVENUNK [place] Insurance:SELF PAY [facility] Number: Effective Repository Date:2018-10-30 10/30/2018 NELSON DYER Primary NELSON Scott [place] Insurance:MEDICAL NOEDOB: [facility] [id number] Hospital [address]Vza: (330) Number: Repository [phone] () [id number] Date:0247-51-90LG [address] [place] [address]PG: 10/30/2018 Secondary NELSON Scott [place] Insurance:BUCKEYE NOEDOB: [facility] [id number] Hospital PLANPolicy Number: Repository [id number] Date:7846-49-96JE [address] [place] [address]WA: 10/30/2018 Tertiary NOT GIVENUNK [place] Insurance:SELF PAY [facility] Number: Effective Repository Date:2018-10-30 10/30/2018 NELSON Scott [id number] Primary NELSON Craftoster [place] Insurance:MEDICAL NOEDOB: [facility] [id number] Hospital [address]Ufv: 330) Number: Repository [phone] () [id number] Date:0044-85-18SH [address] [place] [address]FO: 10/30/2018 Secondary NELSON Scott [place] Insurance:BUCKEYE NOEDOB: [facility] [id number] Hospital PLANPolic Number: Repository [id number] Date:9768-15-21EM [address] [place] [address]JM: 10/30/2018 Tertiary NOT GIVENUNK [place] Insurance:SELF PAY [facility] Number: Effective Repository Date:2018-10-30 10/19/2018 NELSON Scott Primary Insurance:O NELSON Martinez General NOEDOB: [employer] PLUSPolmethodist jennie edmundson NOEDOB: [facility] Number: [id number] Repository [place] [id number] [place], [place] Date: [address]Fdp: () 10/19/2018 Secondary NELSON Martinez General Insurance:[facility] NOEDOB: Health System MEDICAIDPolicy [id number] Repository Number: [id number] Date: 10/12/2018 NELSON Scott Primary NELSON Tyler Juan General NOEDOB: Insurance:[facility] NOEDOB: [facility] System MEDICAIDPolicy [id number] Repository [place] Number: [place] [id number] [address]Nyz: (330) Date: [phone] (HP) 10/12/2018 NELSON Scott Primary NELSON Martinez General NOEDOB: Insurance:[facility] NOEDOB: [facility] MEDICAIDPolicy [id number] Repository [place] Number: [place] [id number] [address]Qpu: (330) Date: [phone] (HP) 09/05/2018 NELSON Scott Primary NELSON Martinez General NOEDOB: Insurance:[facility] NOEDOB: [facility] MEDICAIDPolicy [id number] Repository [place] Number: [place] [id number] [address]Sya: (330) Date: [phone] (HP) 08/07/2018 Nelson NoeDOB: Primary Nelson NoeDOB: SCM-GL Insurance:[employer] [id number] System [place] Number: [place] Date: [address]Hvq: (HP) 08/07/2018 Nelson NoeDOB: Primary Nelson NoeDOB: SCM-GL Insurance:[employer] [id number] System [place] Number: Effective [place] Date: [address]Lex: (HP) 08/02/2018 Nelson NoeDOB: Primary Nelson NoeDOB: SCM-GL Insurance:[employer] [id number] System [place] Number: Effective [place] Date: [address]Mpg: (HP) 08/02/2018 Nelson NoeDOB: Primary Nelson NoeDOB: SCM-GL Insurance:[employer] [id number] System [place] Number: Effective [place] Date: [address]Jvp: (HP) 07/19/2018 Nelson NoeDOB: Primary Nelson NoeDOB: [facility] [employer] Insurance:[facility] [employer] [id number] System [place] Number: Effective [place] Date: [address]Hvg: (HP) 07/17/2018 Nelson NoeDOB: Primary Nelson NoeDOB: [facility] [employer] Insurance:[facility] [id number] System [place] Number: Effective [place] Date: [address]Htr: (HP) 06/20/2018 Nelson NoeDOB: Primary Nelson NoeDOB: [facility] [employer] [facility] [id number] System [place] Number: Effective [place] Date: [address]Fyv: (HP) 06/17/2018 Nelson NoeDOB: Primary Nelson NoeDOB: [facility] [employer] Insurance:[facility] Power Products [id number] [place]: [place], [place] Date: [id number]: (HP) 05/19/2018 Nelson NoeDOB: Primary Nelson NoeDOB: [facility] [employer] Insurance:[facility] [id number] System [place] Number: [place], [place] Date: [address]Cej: (HP) 05/14/2018 NELSON M UEE770 Primary NELSON M [place] Insurance:BUCKE NOEDOB: [place] [facility] [id number] [facility] [address]Chu: [phone] PLANPolicy Number: Repository [phone] (HP) [id number] Date:[id number] [place] [address]JH: 05/14/2018 Secondary NOT GIVENUNK [place] Insurance:SELF PAY [facility] Number: Effective Repository Date:2018-05-14 05/14/2018 NELSON DYER Primary NELSON [place] Insurance:BUCKEYE NOEDOB: [facility] [id number] Hospital [address]Ssj: [phone] PLANPolicy Number: Repository [phone] () [id number] Date:[id number] [address]XT: 05/14/2018 Secondary NOT GIVENUNK [place] Insurance:SELF PAY [facility] Number: Effective Repository Date:2018-05-14 04/25/2018 NELSON DYER Primary NELSON Scott [place] Insurance:BUCKEYE NOEDOB: [facility] [id number] [address]Tel: [phone] PLANPolicy Number: Repository [phone] () [id number] Date:[id number] [address] [address]MM: 04/25/2018 Secondary NOT GIVENUNK [place] Insurance:SELF PAY [facility] Number: Effective Repository Date:2018-04-25 04/05/2018 NELSON DYER Primary NELSON Scott [place] Insurance:BUCKEYE NOEDOB: [facility] [id number] [id number]: [phone] PLANPolicy Number: Repository [phone] () [id number] Date:[id number] [address] [address]ST: 04/05/2018 Secondary NOT GIVENUNK [place] Insurance:SELF PAY [facility] Number: Effective Repository Date:2018-04-05
== END 2018-11-02 20:00 | disposition short-term general hospital (02) ==
LOC: ED 23:52 → MS3 23:54
PROVIDERS: Surgery; Admitting Provider Family Medicine; Emergency Provider Emergency Medicine; Family Provider Family Medicine; PCP Family Medicine; Visit Provider Student in an Organized Health Care Education/Training Program
PROC: 0DJ08ZZ Inspection of Upper Intestinal Tract, Via Natural or Artificial Opening Endoscopic (ICD-10-PCS; CPT 43235; principal; 2018-11-01 10:55)
DX: R10.11 Right upper quadrant pain (principal); G89.18 Other acute postprocedural pain; K21.9 Gastro-esophageal reflux disease without esophagitis; Z79.899 Other long term (current) drug therapy; E66.9 Obesity, unspecified; Z68.30 Body mass index [BMI] 30.0-30.9, adult; Z71.3 Dietary counseling and surveillance; Z23 Encounter for immunization; D13.4 Benign neoplasm of liver; F17.210 Nicotine dependence, cigarettes, uncomplicated
CPT/HCPCS: 43239; 36415; 74177; 78226; 80048; 80053; 81001; 83605; 83690; 85025; 88305; 88342; 96361; 96365; 96366; 96372; 96375; 96376; 99218; 99285; 99406; A9537; J7030; Q9967; 90686; A4216; G0378; J2405

== ENCOUNTER 2018-11-09 13:15 | Emergency (ER) | payer OTHER, MEDICAID, SELFPAY ==
[2018-11-01 09:35] VITALS: BMI 30.9
[2018-11-09 13:18] VITALS: BP 149/86; PULSE 107; RESP 16; TEMP 36.6; BMI 30.2
[2018-11-09 13:51] LABS: Absolute Lymphocyte Count 2.74 X10^3/ul (0.83-4.51); Absolute Neutrophil Count 6.6 X10^3/uL (2.0-7.7); Basophil# 0.04 X10^3/uL; Basophil% 0.4 % (0-1); Eosinophil# 0.35 X10^3/uL; Eosinophils% 3.3 % (0-5); Hematocrit 40.3 % (37-47); Hemoglobin 13.4 g/dl (12.0-15.0); Lymphocyte # 2.74 X10^3/ul (4.0); Lymphocyte % 25.8 % (19-41); Mean Corp Hgb Conc 33.3 g/gl (32-36); Mean Corpuscular Hgb 31.7 pg (27.0-32.0); Mean Corpuscular Volume 95.3 fL (81-99); Mean Platelet Vol. 10.5 fl (6.2-12.0); Monocyte# 0.79 X10^3/uL; Monocyte% 7.4 % (0-10); Neutrophil # 6.64 X10^3/uL (2.7-7.7); Neutrophil % 62.4 % (47-70); Platelet Count 269 K/mm3 (150-450); RBC Distribution Width CV 12.5 % (11.6-14.6); RBC Distribution Width SD 42.9 fl (35.1-43.9); Red Blood Count 4.23 M/mm3 (4.2-5.4); White Blood Count 10.6 K/mm3 (4.4-11.0)
[2018-11-09 13:52] LABS: POSITIVE COUNT NO; POSITIVE DIFFERENTIAL NO; POSITIVE MORPHOLOGY NO
--- NOTE | 2018-11-09 13:54 | NURSING ---
CALLED DR SMITH'S OFFICE AND LEFT MESSAGE FOR DR HECK TO TALK TO
[2018-11-09 14:04] LABS: ALB/GLOB Ratio 1.2 RATIO (0.9-2.4); AST(SGOT) 19 U/L (15-37); Alanine Aminotransfer ALT/SGPT 65 U/L (13-56); Albumin, Serum 4.4 g/dL (3.2-5.0); Alkaline Phosphatase 91 U/L (45-117); Anion Gap 10 (5-15); BUN 16 mg/dL (7-18); BUN/Creat Ratio 15.4 RATIO (10-20); Chloride 103 mmol/L (98-107); Creatinine, Serum 1.04 mg/dL (0.55-1.02); EST Glomerular Filtration Rate 63 mL/min (>60); Est Glom Filt Rate - Afr Amer 76 mL/min (>60); Estimated Creatinine Clearance 63.96 ml/min; Globulin 3.8 g/dL (2.2-4.2); Glucose 93 mg/dL (74-106); Lipase 118 U/L (73-393); Potassium 3.8 mmol/L (3.5-5.1); Protein, Total 8.2 g/dL (6.4-8.2); Sodium Level 136 mmol/L (136-145)
[2018-11-09] MEDS: Ondansetron 4 MG/2 ML Vial IV (14:06)
[2018-11-09] MEDS: 0.9% Normal Saline 1,000 ML 1000 ML IV (14:06)
[2018-11-09] MEDS: HYDROmorphone 1 MG/ML Syringe IV ×2 (14:06→15:32)
[2018-11-09 14:20] LABS: Mucous, Urine 0 SEEN /hpf (<or=2+); Red Blood Cells-Urine 0 SEEN /hpf (0-5); White Blood Cells 0 SEEN /hpf (0-5)
[2018-11-09 14:24] LABS: Color, Urine Yellow (Yellow); Glucose, Dipstick Normal (Normal); Ketone-Dipstick 50 mg/dl (Negative); Leukocyte Esterase-Dipstick Negative /ul (Negative); Nitrite-Dipstick Negative (Negative); Occult Blood-Urine Negative /ul (Negative); Protein-Dipstick Negative (Negative); Urine Bilirubin Dipstick Negative (Negative); Urine Clarity Clear (Clear); Urine Urobilinogen Normal (Normal)
[2018-11-09 14:31] LABS: Bacteria RARE /hpf (None Seen); Squamous Epithelial Cells - UA 0-5 SEEN /hpf (5-10)
--- NOTE | 2018-11-09 14:34 | CT_ITS ---
STUDY: CT ABDOMEN AND PELVIS WITH CONTRAST REASON FOR EXAM: Female, 38 years old. History of a liver mass and recent ablation. Abdominal pain and nausea. RADIATION DOSAGE (If Supplied By Facility): CTDIvol = ( 18.88 ) mGy, DLP = ( 867.38 ) mGycm TECHNIQUE: Transaxial images were obtained from the dome of the diaphragm to the symphysis pubis without oral contrast. 100ML ml of Isovue 300 contrast was administered. Sagittal and coronal images were reconstructed. Individualized dose optimization techniques were used for this CT. COMPARISON: Comparison is made with prior study dated October 30, 2018. FINDINGS: The visualized lung bases are unremarkable. The visualized portions of the heart are within normal limits. Persistent 5.1 cm x 3.1 cm focal area of decreased attenuation in the peripheral lateral aspect of the right lobe of the liver. This is essentially unchanged. No new abnormality is seen. The patient is status post post cholecystectomy. Normal spleen. Normal pancreas. Normal bilateral adrenal glands. Normal right kidney. Normal left kidney. Normal visualized stomach. Normal small intestine. Normal colon. The appendix is visualized and appears normal. Normal abdominal aorta. Normal inferior vena cava. Normal retroperitoneum. Normal urinary bladder. There is absence of the uterus consistent with a prior hysterectomy. Stable left adnexal cyst. There is a small umbilical hernia containing fat. Normal osseous structures. CT/Abdomen/Pelvis W IV Cont ONLY IMPRESSION: Stable examination. Electronically Signed: Bora Red MD at 15:35 EST , Service support ,
[2018-11-09] MEDS: 0.9% Normal Saline 1,000 ML 999 ML IV (14:43)
--- NOTE | 2018-11-09 15:04 | ED.VISSUMM ---
- ER Visit Summary Date of Service: 11/09/18 Chief Complaint: Pain History of Present Illness: The patient is a 38 F with abdominal pain that started today. Patient had a micro-ablation of a liver adenoma on October [address] Larry Gonsales at [facility]. She was admitted to the hospital last week here for right upper quadrant pain for 3 days. She had a CT and a HIDA scan. She was subsequently transferred to [facility] for continued pain. She was there for 2 days and had pain meds. She was sent home and was doing well. She had a recurrence of her pain today. Yesterday she had some chills and nausea. No fevers. No urinary symptoms. No other GI symptoms. Physical Examination: Afebrile and vital signs unremarkable except for heart rate of 107. Skin appears normal without jaundice or pallor. Heart regular. Abdomen is tender in the right upper quadrant. No guarding or rebound. Test Results: CBC normal. CMP unremarkable except for a creatinine of 1.04 and ALT of 65. Lipase normal. Urinalysis unremarkable. CT is pending. Emergency Department Course and Treatment: Patient was treated with fluids, Dilaudid, Zofran. Her labs were all reassuring except her creatinine was slightly elevated at 1.04. Her creatinine has ranged in the past from 0.51-0.9. She was treated with fluids. I spoke with Dr. Gonsales and he did advise repeating the CT to check for abscess. Results are pending, and the oncoming doctor will check. If there is no abscess or other complication or abnormal finding, the patient may be discharged home to follow-up with Dr. Gonsales. Treatment Plan: As above Disposition: Pending CT results Impression: 1. Right upper quadrant pain This note was generated with [employer] software. It may contain incorrect words, spelling, and punctuation that were not noted in review of the chart prior to signing <Av Carr - Last Filed: 11/09/18 15:04> - ER Visit Summary Date of Service: 11/09/18 Chief Complaint: [] History of Present Illness: The patient is a 38 F [] Physical Examination: [] Test Results: [] Emergency Department Course and Treatment: Patient signed out to me follow-up on CT scan to rule out abscess in the liver. This returned negative with no acute findings. Stable findings in the right liver from previous. Patient labs were stable. She had a previous cholecystectomy. Evaluation of her records with her admission 10 days ago she had a EGD and a nuclear scan. There is gastritis findings there is no biliary leakage. Further discussion with the patient, she has 2 more days of oxycodone she has an appointment on the with her surgeon office. In addition she has been using Tylenol and was told to use Motrin for her symptoms by her surgeon. She reported symptoms will improve however with return. There is been no melena. Discussed with patient with her findings of gastritis per EGD she should avoid NSAIDs. I will place her on Carafate, as needed Zofran, and she will withhold NSAIDs and monitor symptoms. She will keep her appointment. The point on the , she will be given a 3-day prescription of oxycodone to hold her until her appointment to use as needed. OARRS checked with confirmed 2 days left from initial Rx. Treatment Plan: [] Disposition: Discharge 3. Impression: 1. Right upper quadrant pain 2. Gastritis 3. postop This note was generated with [employer] dictation software. It may contain incorrect words, spelling, and punctuation that were not noted in review of the chart prior to signing <Robin Boudreaux - Last Filed: 11/09/18 16:18> ED Disposition <Av Carr - Last Filed: 11/09/18 15:04> <Robin Boudreaux - Last Filed: 11/09/18 16:18> - Plan for ED Patient: Disposition: Home or Assisted Living Diagnosis: RUQ pain, Gastritis Instructions: ED Abdominal Pain Unkn Cause, ED PUD Vs Gastritis Prescriptions: Oxycodone [Oxyir] 5 mg PO Q6H PRN PRN #12 tablet PRN Reason: Pain Ondansetron [Zofran Odt] 4 mg PO Q8H PRN PRN #10 tablet PRN Reason: Nausea Sucralfate [Carafate] 1 gm PO 4X/DAY #60 tablet Referrals: Arleen Greenberg [Primary Care Provider] - Additional Instructions: stop ibuprofen. take new meds. keep appointment with Dr. Gonsales on .
--- NOTE | 2018-11-09 15:08 | ED.DCSUM_ITS ---
- ER Visit Summary Date of Service: 11/09/18 Chief Complaint: Pain History of Present Illness: The patient is a 38 F with abdominal pain that started today. Patient had a micro-ablation of a liver adenoma on October [address] Larry Gonsales at [facility]. She was admitted to the hospital last week here for right upper quadrant pain for 3 days. She had a CT and a HIDA scan. She was subsequently transferred to [facility] for continued pain. She was there for 2 days and had pain meds. She was sent home and was doing well. She had a recurrence of her pain today. Yesterday she had some chills and nausea. No fevers. No urinary symptoms. No other GI symptoms. Physical Examination: Afebrile and vital signs unremarkable except for heart rate of 107. Skin appears normal without jaundice or pallor. Heart regular. Abdomen is tender in the right upper quadrant. No guarding or rebound. Test Results: CBC normal. CMP unremarkable except for a creatinine of 1.04 and ALT of 65. Lipase normal. Urinalysis unremarkable. CT is pending. Emergency Department Course and Treatment: Patient was treated with fluids, Dilaudid, Zofran. Her labs were all reassuring except her creatinine was slightly elevated at 1.04. Her creatinine has ranged in the past from 0.51-0.9. She was treated with fluids. I spoke with Dr. Gonsales and he did advise repeating the CT to check for abscess. Results are pending, and the oncoming doctor will check. If there is no abscess or other complication or abnormal finding, the patient may be discharged home to follow-up with Dr. Gonsales. Treatment Plan: As above Disposition: Pending CT results Impression: 1. Right upper quadrant pain This note was generated with [employer] software. It may contain incorrect words, spelling, and punctuation that were not noted in review of the chart prior to signing <Av Carr - Last Filed: 11/09/18 15:04> - ER Visit Summary Date of Service: 11/09/18 Chief Complaint: [] History of Present Illness: The patient is a 38 F [] Physical Examination: [] Test Results: [] Emergency Department Course and Treatment: Patient signed out to me follow-up on CT scan to rule out abscess in the liver. This returned negative with no acute findings. Stable findings in the right liver from previous. Patient labs were stable. She had a previous cholecystectomy. Evaluation of her records with her admission 10 days ago she had a EGD and a nuclear scan. There is gastritis findings there is no biliary leakage. Further discussion with the patient, she has 2 more days of oxycodone she has an appointment on the with her surgeon office. In addition she has been using Tylenol and was told to use Motrin for her symptoms by her surgeon. She reported symptoms will improve however with return. There is been no melena. Discussed with patient with her findings of gastritis per EGD she should avoid NSAIDs. I will place her on Carafate, as needed Zofran, and she will withhold NSAIDs and monitor symptoms. She will keep her appointment. The point on the , she will be given a 3- day prescription of oxycodone to hold her until her appointment to use as needed. OARRS checked with confirmed 2 days left from initial Rx. Treatment Plan: [] Disposition: Discharge 3. Impression: 1. Right upper quadrant pain 2. Gastritis 3. postop This note was generated with [employer] dictation software. It may contain incorrect words, spelling, and punctuation that were not noted in review of the chart prior to signing <Robin Boudreaux - Last Filed: 11/09/18 16:18> ED Disposition <Av Carr - Last Filed: 11/09/18 15:04> <Robin Boudreaux - Last Filed: 11/09/18 16:18> - Plan for ED Patient: Disposition: Home or Assisted Living Diagnosis: RUQ pain, Gastritis Instructions: ED Abdominal Pain Unkn Cause, ED PUD Vs Gastritis Prescriptions: Oxycodone [Oxyir] 5 mg PO Q6H PRN PRN #12 tablet PRN Reason: Pain Ondansetron [Zofran Odt] 4 mg PO Q8H PRN PRN #10 tablet PRN Reason: Nausea Sucralfate [Carafate] 1 gm PO 4X/DAY #60 tablet Referrals: Arleen Greenberg [Primary Care Provider] - Additional Instructions: stop ibuprofen. take new meds. keep appointment with Dr. Gonsales on .
[2018-11-09 16:38] VITALS: BP 114/80; PULSE 91; RESP 17; O2SAT 99
[2018-11-09] MEDS: Mag Hydrox/Al Hydrox/Simeth 30 ML UDC PO (16:45)
[2018-11-09] MEDS: oxyCODONE 5 MG Tablet PO (17:20)
== END 2018-11-09 17:26 | disposition home or self-care (01) ==
PROVIDERS: Emergency Medicine; Emergency Provider Emergency Medicine; Family Provider Family Medicine; PCP Family Medicine
DX: G89.18 Other acute postprocedural pain (principal); R10.11 Right upper quadrant pain; K29.70 Gastritis, unspecified, without bleeding; Z90.49 Acquired absence of other specified parts of digestive tract; Z79.899 Other long term (current) drug therapy
CPT/HCPCS: 74177; 80053; 81001; 83690; 85025; 96361; 96374; 96375; 96376; 99284; J7030; Q9967; A4216; J2405

== ENCOUNTER 2019-01-16 12:08 | Emergency (ER) | payer OTHER, SELFPAY ==
[2019-01-16 12:12] VITALS: BP 132/113; PULSE 135; RESP 24; TEMP 36.8; O2SAT 98; BMI 30.9
--- NOTE | 2019-01-16 12:26 | EKG12_ITS ---
Test Reason : TACHYCARDIA Blood Pressure : / mmHG Vent. Rate : 119 BPM Atrial Rate : 119 BPM P-R Int : 148 ms QRS Dur : 070 ms QT Int : 310 ms P-R-T Axes : 051 052 054 degrees QTc Int : 436 ms Sinus tachycardia Possible Left atrial enlargement Borderline ECG Confirmed by MELISSA CHAVES, KELLY ([id number]), supervising film or videotape editor BERNADETTE RIOS ([id number]) on 01/22/2019 4:32:50 PM Referred By: REVA Confirmed By:KELLY TORRES MD
[2019-01-16] MEDS: Ondansetron 4 MG/2 ML Vial IV ×2 (12:46→13:50)
[2019-01-16] MEDS: Morphine 4 MG/ML Syringe IV ×2 (12:46→13:49)
--- NOTE | 2019-01-16 12:46 | ED.VISSUMM ---
- ER Visit Summary Date of Service: 01/16/19 Chief Complaint: Abdominal pain History of Present Illness: The patient is a 39 F who presents with right upper quadrant abdominal pain. She had a recent liver biopsy about 3 months ago she had a subsequent MRI a week ago which was normal. She has a history of a cholecystectomy hysterectomy and appendectomy. Her pain started yesterday, gradually getting worse not associated with any trauma. It is achy right upper quadrant, not associated with any food intake. Physical Examination: Appears in distress. Moist mucous membranes, no obvious facial deformity No C-spine tenderness supple neck. Regular rate and rhythm without any obvious murmurs Clear lungs bilaterally speaking in full sentences without any obvious respiratory distress Abdomen with reproducible right upper quadrant pain. There is also some epigastric pain. Moves all extremities without any difficulty or pain. Skin does not show any obvious rashes or lesions, no trauma. Alert oriented ?3 with no gross focal deficit Emergency Department Course and Treatment: Workup in the emergency department. She is given analgesia with improvement. CT of the chest and abdomen are both negative. She is to follow-up with her doctors. Disposition: Discharge stable condition Impression: Abdominal pain This note was generated with [employer] dictation software. It may contain incorrect words, spelling, and punctuation that were not noted in review of the chart prior to signing ED Disposition - Plan for ED Patient: Referrals: Arleen Greenberg [NON-STAFF] -
[2019-01-16] MEDS: 0.9% Normal Saline 1,000 ML 1000 ML IV (12:48)
--- NOTE | 2019-01-16 12:49 | ED.DCSUM_ITS ---
- ER Visit Summary Date of Service: 01/16/19 Chief Complaint: Abdominal pain History of Present Illness: The patient is a 39 F who presents with right upper quadrant abdominal pain. She had a recent liver biopsy about 3 months ago she had a subsequent MRI a week ago which was normal. She has a history of a cholecystectomy hysterectomy and appendectomy. Her pain started yesterday, gradually getting worse not associated with any trauma. It is achy right upper quadrant, not associated with any food intake. Physical Examination: Appears in distress. Moist mucous membranes, no obvious facial deformity No C-spine tenderness supple neck. Regular rate and rhythm without any obvious murmurs Clear lungs bilaterally speaking in full sentences without any obvious respiratory distress Abdomen with reproducible right upper quadrant pain. There is also some epigastric pain. Moves all extremities without any difficulty or pain. Skin does not show any obvious rashes or lesions, no trauma. Alert oriented ?3 with no gross focal deficit Emergency Department Course and Treatment: Workup in the emergency department. She is given analgesia with improvement. CT of the chest and abdomen are both negative. She is to follow-up with her doc tors. Disposition: Discharge stable condition Impression: Abdominal pain This note was generated with [employer] dictation software. It may contain incorrect words, spelling, and punctuation that were not noted in review of the chart prior to signing ED Disposition - Plan for ED Patient: Referrals: Arleen Greenberg [NON-STAFF] -
--- NOTE | 2019-01-16 12:50 | CT_ITS ---
STUDY: CTA CHEST REASON FOR EXAM: Female, 39 years old. Recent liver ablation for adenoma. Right upper quadrant pain. Abdominal aortic aneurysm repair. RADIATION DOSAGE (If Supplied By Facility): CTDIvol = ( 13.25 ) mGy, DLP = ( 959.63 ) mGycm TECHNIQUE: The examination was performed with the intravenous administration of 75 IV Isovue 370. Post-processing of the angiographic images was performed, with multiplanar reformation and 3D reconstruction. Individualized dose optimization techniques were used for this CT. COMPARISON: Comparison is made with prior study dated May 14, 2018. FINDINGS: Small bilateral benign-appearing axillary lymph nodes. Normal enhancement of the main pulmonary artery and right and left pulmonary arteries. Normal enhancement of the bilateral peripheral pulmonary arteries. There is no demonstrated pulmonary embolism. Normal thoracic aorta and visualized great vessels. There is no demonstrated aortic dissection. Normal heart and pericardium. Normal mediastinum. Normal hilar regions. Normal visualized trachea and bronchi. The lungs are well expanded. Normal pulmonary parenchyma. Normal pleura. Normal chest wall structures. Normal osseous structures. Diffuse fatty infiltration of the liver. There is a 2.4 cm x 4.4 cm area of decreased attenuation in the peripheral aspect of the right lobe of the liver. Minimal enhancement is seen along its posterior aspect. This is the site of the previously enhancing hepatic mass. This may represent postablation changes. CT/CTA Chest W/WO Contrast IMPRESSION: Normal CTA chest examination, without a demonstrated pulmonary embolism or arterial dissection. Postablation changes seen in the lateral aspect of the right lobe of liver as described. Fatty infiltration of the liver. Electronically Signed: Bora Red, at 13:53 EDT , Service support ,
--- NOTE | 2019-01-16 12:51 | CT_ITS ---
STUDY: CTA OF THE ABDOMINAL AORTA REASON FOR EXAM: Female, 39 years old. History of abdominal aortic aneurysm repair. Prior radiofrequency ablation of an hepatic lesion. RADIATION DOSAGE (If Supplied By Facility): CTDIvol = ( 13.25 ) mGy, DLP = ( 959.63 ) mGycm TECHNIQUE: Axial CT angiography multi-detector data acquisition was obtained from the dome of the liver to the symphysis pubis following intravenous administration of 75 IV Isovue 300. Axial images and MIP images were reconstructed from the axial data set. Post-processing of the angiographic images was performed, with multiplanar reformation and 3D reconstruction. Individualized dose optimization techniques were used for this CT. TECHNICAL QUALITY: Good COMPARISON: None. Descriptors of Narrowing: None (0%) Mild (< 50%) Moderate (50-70%) Severe (70-90%) Subtotal/Total Occlusion (90-100%) Non-Evaluable (technically non-diagnostic FINDINGS: Stable 4.8 cm x 2.9 cm focal irregular decreased attenuation in the peripheral lateral aspect of the right lobe of the liver. Diffuse fatty infiltration of the liver. The patient status post cholecystectomy. Abdominal aorta: No demonstrated narrowing. Celiac and superior mesenteric arteries: No demonstrated narrowing. Inferior mesenteric artery: No demonstrated narrowing. Right renal artery(arteries): No demonstrated narrowing. Left renal artery(arteries): No demonstrated narrowing. CT/CTA Abdomen W/WO Contrast IMPRESSION: Diffuse fatty infiltration of the liver. Stable hypodensity in the lateral aspect of the right lobe of the liver secondary to prior ablation. Electronically Signed: Bora Red, at 14:06 EDT , Service support ,
[2019-01-16 12:53] LABS: Absolute Lymphocyte Count 2.87 X10^3/ul (0.83-4.51); Absolute Neutrophil Count 8.4 X10^3/uL (2.0-7.7); Basophil# 0.03 X10^3/uL; Basophil% 0.3 % (0-1); Eosinophil# 0.18 X10^3/uL; Eosinophils% 1.5 % (0-5); Hematocrit 42.3 % (37-47); Hemoglobin 14.4 g/dl (12.0-15.0); Lymphocyte # 2.87 X10^3/ul (4.0); Lymphocyte % 24.1 % (19-41); Mean Corpuscular Hgb 32.2 pg (27.0-32.0); Mean Corpuscular Volume 94.6 fL (81-99); Mean Platelet Vol. 10.3 fl (6.2-12.0); Monocyte% 3.4 % (0-10); Neutrophil # 8.35 X10^3/uL (2.7-7.7); Neutrophil % 69.9 % (47-70); Platelet Count 229 K/mm3 (150-450); RBC Distribution Width CV 12.7 % (11.6-14.6); RBC Distribution Width SD 43.4 fl (35.1-43.9); Red Blood Count 4.47 M/mm3 (4.2-5.4); White Blood Count 11.9 K/mm3 (4.4-11.0)
[2019-01-16 12:54] LABS: POSITIVE COUNT NO; POSITIVE DIFFERENTIAL NO; POSITIVE MORPHOLOGY NO
[2019-01-16 13:06] LABS: ALB/GLOB Ratio 1.1 RATIO (0.9-2.4); AST(SGOT) 25 U/L (15-37); Alanine Aminotransfer ALT/SGPT 50 U/L (13-56); Alkaline Phosphatase 75 U/L (45-117); Anion Gap 6 (5-15); BUN 10 mg/dL (7-18); Calcium,Total 9.1 mg/dL (8.5-10.1); Chloride 105 mmol/L (98-107); Creatinine, Serum 0.91 mg/dL (0.55-1.02); EST Glomerular Filtration Rate 74 mL/min (>60); Est Glom Filt Rate - Afr Amer 89 mL/min (>60); Estimated Creatinine Clearance 72.38 ml/min; Globulin 3.6 g/dL (2.2-4.2); Glucose 126 mg/dL (74-106); Lipase 92 U/L (73-393); Potassium 3.6 mmol/L (3.5-5.1); Protein, Total 7.6 g/dL (6.4-8.2); Sodium Level 135 mmol/L (136-145)
[2019-01-16 13:41] VITALS: BP 114/91; PULSE 103; RESP 19; O2SAT 94
[2019-01-16 13:48] LABS: Bacteria 0 SEEN /hpf (None Seen); Mucous, Urine 0 SEEN /hpf (<or=2+); Red Blood Cells-Urine 0 SEEN /hpf (0-5); White Blood Cells 0 SEEN /hpf (0-5)
[2019-01-16 13:49] LABS: Color, Urine Yellow (Yellow); Glucose, Dipstick Normal (Normal); Ketone-Dipstick Negative (Negative); Leukocyte Esterase-Dipstick Negative /ul (Negative); Nitrite-Dipstick Negative (Negative); Occult Blood-Urine Negative /ul (Negative); Protein-Dipstick Negative (Negative); Urine Bilirubin Dipstick Negative (Negative); Urine Clarity Sl. Cloudy (Clear); Urine Urobilinogen Normal (Normal)
[2019-01-16 14:00] LABS: Squamous Epithelial Cells - UA 0-5 SEEN /hpf (5-10)
--- NOTE | 2019-01-16 14:38 | ED.RN ---
pt given narcotics and drove to ed. pt is currently locating a ride. is aware. waiting for further orders. jay miller rn [id number]
--- NOTE | 2019-01-16 14:58 | ED.VISSUMM ---
- ER Visit Summary Date of Service: 01/16/19 Chief Complaint: [] History of Present Illness: The patient is a 39 F [] Physical Examination: [] Test Results: [] Emergency Department Course and Treatment: [] Treatment Plan: [] Disposition: [] Impression: [] This note was generated with Swiftype dictation software. It may contain incorrect words, spelling, and punctuation that were not noted in review of the chart prior to signing ED Disposition - Plan for ED Patient: Disposition: Home or Assisted Living Instructions: ED Abdominal Pain Unkn Cause Prescriptions: Oxycodone [Oxyir] 5 mg PO Q4H PRN PRN 3 Days #10 tab PRN Reason: Pain Referrals: rAleen Greenberg [NON-STAFF] - 3-5 Days
--- NOTE | 2019-01-16 15:01 | ED.DCSUM_ITS ---
- ER Visit Summary Date of Service: 01/16/19 Chief Complaint: [] History of Present Illness: The patient is a 39 F [] Physical Examination: [] Test Results: [] Emergency Department Course and Treatment: [] Treatment Plan: [] Disposition: [] Impression: [] This note was generated with Finanz[employer] dictation software. It may contain incorrect words, spelling, and punctuation that were not noted in review of the chart prior to signing ED Disposition - Plan for ED Patient: Disposition: Home or Assisted Living Instructions: ED Abdominal Pain Unkn Cause Prescriptions: Oxycodone [Oxyir] 5 mg PO Q4H PRN PRN 3 Days #10 tab PRN Reason: Pain Referrals: Arleen Greenberg [NON-STAFF] - 3-5 Days
[2019-01-16 15:09] VITALS: BP 118/86; PULSE 93; RESP 16; O2SAT 96
[2019-01-16] MEDS: oxyCODONE 5 MG Tablet PO (15:10)
[2019-01-16 15:11] VITALS: BP 118/86; PULSE 98; RESP 12; O2SAT 96
--- NOTE | 2019-01-16 15:15 | ED.RN ---
pt ride will be here around 4 pm. pt was left in room to wait for ride because of her multiple doses of narcotics. pt was understanding and willing to wait in room. jay miller rn [id number]
[2019-01-16] MEDS: proMETHazine 25 MG/ML Syringe 6.25 MG IV (15:40)
[2019-01-16 16:34] VITALS: BP 114/69
== END 2019-01-16 16:37 | disposition home or self-care (01) ==
PROVIDERS: Emergency Provider Emergency Medicine
DX: R10.11 Right upper quadrant pain (principal); R10.13 Epigastric pain; R11.0 Nausea; Z79.899 Other long term (current) drug therapy; Z90.49 Acquired absence of other specified parts of digestive tract; Z90.710 Acquired absence of both cervix and uterus
CPT/HCPCS: 71275; 74175; 80053; 81001; 83690; 85025; 93005; 96361; 96374; 96375; 96376; 99284; J7030; Q9967; A4216; J2405

== ENCOUNTER 2019-02-01 22:31 | Emergency (ER) | payer OTHER, SELFPAY ==
[2019-02-01 22:32] VITALS: BP 159/89; PULSE 100; RESP 18; TEMP 37.3; O2SAT 95; BMI 30.5
--- NOTE | 2019-02-01 23:48 | ED.DCSUM_ITS ---
- ER Visit Summary Date of Service: 02/01/19 Chief Complaint: Right side pain History of Present Illness: The patient is a 39 F with a history of cholecystectomy, appendectomy, hysterectomy, and liver ablation. She presents with right flank pain. Associated with nausea vomiting. She thinks it may be attributed to renal cysts which were recently found on ultrasound. She has had right side pain over the last few months since her ablation. She has had multiple CT exams as well as MRI and most recently ultrasound. She also noted some hematuria but denies any other urinary symptoms. Denies any other complaints or issues. Physical Examination: Afebrile and vital signs are unremarkable. Patient alert and oriented. No acute distress. Heart and lungs unremarkable. Abdomen soft and nontender. Right CVA tender to palpation. Skin normal in color. Test Results: Laboratory studies and urinalysis pending. Emergency Department Course and Treatment: Patient treated with IV fluids, Zofran, Dilaudid. Laboratory studies and urinalysis are pending. I did not believe that there was any indication for repeat imaging. Patient has had ongoing pain and she has had multiple imaging studies. We will treat her pain and check labs and urine. Will reassess. White count 14.8. Otherwise labs and urinalysis unremarkable. I reevaluated the patient and she was still having a lot of pain. Given her increasing white count, I did add on a CT. This showed chronic changes in stable improved changes. The only thing new was some increased fecal material. I do not believe this is of any clinical consequence or causing her symptoms. Patient was advised. At this point, the patient has flank pain and leukocytosis. The remainder of her work-up is reassuring. I believe she is appropriate for outpatient follow- up at this point. Return right away for any new or worsening issues. Treatment Plan: As above Disposition: Discharge Impression: 1. Right flank pain 2. Leukocytosis This note was generated with [employer] dictation software. It may contain incorrect words, spelling, and punctuation that were not noted in review of the chart prior to signing ED Disposition - Plan for ED Patient: Referrals: Nicky Mccall MD [Primary Care Provider] -
[2019-02-02 00:15] LABS: Absolute Lymphocyte Count 2.55 X10^3/ul (0.83-4.51); Absolute Neutrophil Count 11.1 X10^3/uL (2.0-7.7); Basophil# 0.03 X10^3/uL; Basophil% 0.2 % (0-1); Eosinophil# 0.24 X10^3/uL; Eosinophils% 1.6 % (0-5); Hematocrit 38.5 % (37-47); Lymphocyte # 2.55 X10^3/ul (4.0); Lymphocyte % 17.2 % (19-41); Mean Corp Hgb Conc 33.8 g/gl (32-36); Mean Corpuscular Hgb 32.2 pg (27.0-32.0); Mean Corpuscular Volume 95.3 fL (81-99); Mean Platelet Vol. 10.2 fl (6.2-12.0); Monocyte# 0.86 X10^3/uL; Monocyte% 5.8 % (0-10); Neutrophil # 11.05 X10^3/uL (2.7-7.7); Neutrophil % 74.5 % (47-70); Platelet Count 220 K/mm3 (150-450); RBC Distribution Width CV 12.1 % (11.6-14.6); RBC Distribution Width SD 41.5 fl (35.1-43.9); Red Blood Count 4.04 M/mm3 (4.2-5.4); White Blood Count 14.8 K/mm3 (4.4-11.0)
[2019-02-02] MEDS: 0.9% Normal Saline 1,000 ML 1000 ML IV (00:15)
[2019-02-02] MEDS: Ondansetron 4 MG/2 ML Vial IV (00:15)
[2019-02-02] MEDS: HYDROmorphone 1 MG/ML Syringe IV (00:15)
[2019-02-02 00:16] LABS: POSITIVE COUNT NO; POSITIVE DIFFERENTIAL NO; POSITIVE MORPHOLOGY NO
[2019-02-02 00:33] LABS: Mucous, Urine 0 SEEN /hpf (<or=2+); Red Blood Cells-Urine 0 SEEN /hpf (0-5); White Blood Cells 0 SEEN /hpf (0-5)
[2019-02-02 00:40] LABS: ALB/GLOB Ratio 1.2 RATIO (0.9-2.4); AST(SGOT) 26 U/L (15-37); Alanine Aminotransfer ALT/SGPT 57 U/L (13-56); Albumin, Serum 3.7 g/dL (3.2-5.0); Alkaline Phosphatase 64 U/L (45-117); Anion Gap 5 (5-15); BUN 19 mg/dL (7-18); BUN/Creat Ratio 22.8 RATIO (10-20); Calcium,Total 8.7 mg/dL (8.5-10.1); Chloride 107 mmol/L (98-107); Creatinine, Serum 0.83 mg/dL (0.55-1.02); EST Glomerular Filtration Rate 81 mL/min (>60); Est Glom Filt Rate - Afr Amer 98 mL/min (>60); Estimated Creatinine Clearance 79.36 ml/min; Globulin 3.1 g/dL (2.2-4.2); Glucose 97 mg/dL (74-106); Lipase 90 U/L (73-393); Protein, Total 6.8 g/dL (6.4-8.2); Sodium Level 139 mmol/L (136-145)
[2019-02-02 00:43] LABS: Color, Urine Yellow (Yellow); Glucose, Dipstick Normal (Normal); Ketone-Dipstick Negative (Negative); Leukocyte Esterase-Dipstick Negative /ul (Negative); Nitrite-Dipstick Negative (Negative); Occult Blood-Urine Negative /ul (Negative); Protein-Dipstick Negative (Negative); Urine Bilirubin Dipstick Negative (Negative); Urine Clarity Clear (Clear); Urine Urobilinogen Normal (Normal); Urine pH 6.5 (5.0 - 8.0)
[2019-02-02 00:49] LABS: Bacteria RARE /hpf (None Seen); Squamous Epithelial Cells - UA 0-5 SEEN /hpf (5-10)
--- NOTE | 2019-02-02 01:02 | CT_ITS ---
STUDY: CT ABDOMEN AND PELVIS WITH CONTRAST REASON FOR EXAM: Female, 39 years old. Right flank pain, nausea and vomiting x2 days. Liver ablation October. Complex kidney cysts, GERD, appendectomy, AAA repair, cholecystectomy, hysterectomy. RADIATION DOSAGE (If Supplied By Facility): CTDIvol = ( 12.52 ) mGy, DLP = ( 1057.24 ) mGycm TECHNIQUE: Transaxial 3.75 mm images were obtained from the dome of the diaphragm to the symphysis pubis without oral contrast. 100ML IV Isovue 300 was administered. Sagittal and coronal images were reconstructed. Individualized dose optimization techniques were used for this CT. COMPARISON: CTA abdomen January 16, 2019. CT abdomen pelvis 11/09/2018. 10/30/2018. 06/10/2014. FINDINGS: The visualized lung bases are unremarkable. The visualized portions of the heart are within normal limits. Low attenuated slightly heterogeneous enhancing peripheral right hepatic lesion of 4.9 x 2.5 cm image 26 series 2 not significantly changed since most recent examination, decreased in size since 10/2018. Liver is low attenuated and appears enlarged. Nonvisualized gallbladder and normal extrahepatic biliary system. Normal spleen. Normal pancreas. Normal bilateral adrenal glands. Stable 0.4 cm low-attenuations in the mid right kidney. There is no obstructive uropathy, obstructive renal or ureteral calculi. Normal visualized stomach. Normal small intestine. There is moderate amount of fecal material. There is opacification along the ileocecal valve not seen on previous examination.. There are surgical clips in the region of the appendix consistent with a prior appendectomy. Normal abdominal aorta. Normal inferior vena cava. Normal retroperitoneum. Normal urinary bladder. There is absence of the uterus consistent with a prior hysterectomy. There is low attenuation of the left ovary most frequently due to follicular cysts. Normal abdominal wall. Normal osseous structures. CT/Abdomen/Pelvis W IV Cont ONLY IMPRESSION: There is no obstructive uropathy, obstructive renal or ureteral calculi. Heterogeneous slightly low attenuation lesion in the right hepatic periphery is stable since the most recent examination, decreased in size since October 29, 2018. Suspect underlying hepatic steatosis. There is moderate amount of retained fecal material with more solid component along the ileocecal valve not visualized on previous examination. 2 2-the short-term interval change in appearance, this may be due to more solid stool. Depending on symptoms, this can be reassessed with colonoscopy. Stable subcentimeter low-attenuation changes within the right kidney, absent gallbladder and appendix, uterus, probable follicles/cysts within the left ovary. Electronically Signed: Funmi Harrington MD at 2:12 EDT , Service support ,
[2019-02-02 01:34] VITALS: BP 141/78; PULSE 87; RESP 16; O2SAT 96
[2019-02-02] MEDS: HYDROmorphone 0.5 MG/0.5 ML SYRINGE IV (01:54)
[2019-02-02 02:32] VITALS: BP 151/98; PULSE 94; RESP 18; O2SAT 98
--- NOTE | 2019-02-02 02:32 | ED.DEP ---
ED Disposition - Plan for ED Patient: Instructions: ED Flank Pain Uncertain Cause Referrals: Nicky Mccall MD [Primary Care Provider] -
[2019-02-02] MEDS: oxyCODONE 5 MG Tablet PO (02:54)
== END 2019-02-02 03:00 | disposition home or self-care (01) ==
LOC: ED 23:49
PROVIDERS: Emergency Provider Emergency Medicine; Family Provider Internal Medicine; PCP Internal Medicine
DX: R10.9 Unspecified abdominal pain (principal); D72.829 Elevated white blood cell count, unspecified; R31.9 Hematuria, unspecified; R11.2 Nausea with vomiting, unspecified; Z72.0 Tobacco use; Z79.899 Other long term (current) drug therapy; Z90.710 Acquired absence of both cervix and uterus; Z90.49 Acquired absence of other specified parts of digestive tract
CPT/HCPCS: 74177; 80053; 81001; 83690; 85025; 96361; 96374; 96375; 96376; 99284; J7030; Q9967; A4216; J2405

== ENCOUNTER 2019-07-08 13:58 | Emergency (ER) | payer BC, SELFPAY ==
[2019-07-08 13:58] VITALS: BP 162/91; PULSE 117; RESP 16; TEMP 36.8; BMI 32.3
--- NOTE | 2019-07-08 14:22 | ED.DCSUM_ITS ---
- ER Visit Summary Date of Service: 07/08/19 Chief Complaint: Right arm wound History of Present Illness: The patient is a 39 F who presents the emergency department with a wound on her right arm. She tells me last night she felt a raised area on the dorsum of the right forearm. She states that she wondered if she got bit by something. This morning she noticed that that area was raised but was now erythematous with warmth. She has generalized myalgias of the arms and upper body. States she feels rather spacey. She did not see an insect. She denies any IV drug use. No fevers. Physical Examination: Afebrile vital signs are stable oral temperature taken by this physician is 98.4. Gen: Well-nourished well-developed Head: Normocephalic atraumatic Eyes: Perrl EOMI ENT: TMs clear no rhinorrhea moist mucous membranes Neck: Supple no lymphadenopathy no JVD nontender CVS: Regular rate rhythm no murmurs normal S1-S2 Respiratory: No distress clear to auscultation bilaterally chest nontender Abdomen: Soft nontender nondistended normal bowel sounds no masses Back: Nontender Extremity: There is a 3 cm round erythematous lesion on the dorsum of the right forearm. There is no lymphangitic streaking. No significant swelling. No fluctuance. No distal swelling. Skin: Normal color no rash Neuro: alert orientated ?3 CN II-XII intact normal strength sensation Psych: Normal affect normal mood Emergency Department Course and Treatment: It is very difficult to say exactly what this could be. This could be a local cellulitis. This could be a reaction to some type of insect bite. She is not febrile. She appears neurovascular i ntact. None I recommend we place her on Keflex and have her use anti- inflammatories for pain. She is to monitor for changes. The wound was outlined in surgical marker. Impression: 1. Cellulitis right forearm This note was generated with [employer] dictation software. It may contain incorrect words, spelling, and punctuation that were not noted in review of the chart prior to signing ED Disposition - Plan for ED Patient: Disposition: Home or Assisted Living Instructions: Cellulitis Prescriptions: Cephalexin [Keflex] 500 mg PO Q6 #28 cap Prescription Printed Referrals: Nicky Mccall MD [Primary Care Provider] - 3-5 Days
[2019-07-08 14:34] VITALS: BP 112/73; PULSE 77; RESP 14; O2SAT 97
== END 2019-07-08 14:35 | disposition home or self-care (01) ==
LOC: ED 14:26
PROVIDERS: Emergency Provider Emergency Medicine; Family Provider Internal Medicine; PCP Internal Medicine
DX: L03.113 Cellulitis of right upper limb (principal); Z72.0 Tobacco use
CPT/HCPCS: 99282

== ENCOUNTER 2019-10-26 11:59 | Emergency (ER) | payer BC, SELFPAY ==
[2019-10-26 12:02] VITALS: BP 87/57; PULSE 101; RESP 18; TEMP 36.6; O2SAT 97; BMI 32.8
--- NOTE | 2019-10-26 12:25 | CT_ITS ---
STUDY: CT ABDOMEN AND PELVIS WITH CONTRAST REASON FOR EXAM: Female, 39 years old. PT STATED RUQ PAIN, HX hysterectomy, cholecystectomy, LIVER ADENOMA ABLATION RADIATION DOSAGE (If Supplied By Facility): CTDIvol = ( 21.0 ) mGy, DLP = ( 1710.62 ) mGycm TECHNIQUE: Transaxial images were obtained from the dome of the diaphragm to the symphysis pubis with oral contrast. IV 100mL Isovue-300 was administered. Sagittal and coronal images were reconstructed. Individualized dose optimization techniques were used for this CT. COMPARISON: Comparison is made with prior examination dated February 02, 2019. FINDINGS: The visualized lung bases are unremarkable. The visualized portions of the heart are within normal limits. There is decreased attenuation of the liver consistent with steatosis. Stable 4.9 cm x 2.5 cm hypodensity in the peripheral midportion of the right lobe of the liver. This most likely represents an hemangioma. The patient is status post cholecystectomy. Normal spleen. Normal pancreas. Normal bilateral adrenal glands. Normal right kidney. Normal left kidney. Normal visualized stomach. Normal small intestine. Normal colon. There is non-visualization of the appendix. Normal abdominal aorta. Normal inferior vena cava. Normal retroperitoneum. Normal urinary bladder. There is absence of the uterus consistent with a prior hysterectomy. Normal abdominal wall. Normal osseous structures. CT/Abdomen/Pelvis W IV Cont ONLY IMPRESSION: Stable 4.9 cm x 2.5 segment hypodensity in the peripheral midportion of the right lobe of the liver. This most likely represents a hemangioma. Electronically Signed: Bora Red, at 15:19 EST , Service support ,
--- NOTE | 2019-10-26 12:26 | ED.VIS.GEN ---
History of Present Illness Chief Complaint: Abd Pain Informant: Patient Onset: Days Context: Gradual Onset Current Severity: Moderate Maximum Severity: Moderate Narrative: She presents with right upper quadrant pain. She is a history of a liver adenoma and had ablation approximately 1 year ago at [facility]. Patient states pain is worsened again over the past several days. She called her doctor they encouraged her to come in for a CT scan. She denies any bruising. She does have some pain that radiates to the right shoulder. - Past Medical History (1) Partial obstruction of small intestine Status: Resolved (2) GERD (gastroesophageal reflux disease) Status: Chronic (3) Hepatic adenoma Status: Chronic (4) Status post appendectomy Status: Chronic (5) Status post cholecystectomy Status: Chronic (6) Status post hysterectomy Status: Chronic Past Medical History - Allergies and Home Meds Allergies/Adverse Reactions: Allergies latex Allergy (Mild, Verified 10/26/19 12:00) IRRIATION, OR IF SHE INGEST SHE VOMITS. morphine Allergy (Verified 10/26/19 13:58) Itching Penicillins Allergy (Verified 10/26/19 12:00) Shortness of breath acetaminophen [From Darvocet-N] Adverse Reaction (Verified 10/26/19 12:00) Nausea meperidine [From Demerol] Adverse Reaction (Verified 10/26/19 12:00) Nausea propoxyphene [From Darvocet-N] Adverse Reaction (Verified 10/26/19 12:00) Nausea varenicline [From Chantix] Adverse Reaction (Verified 10/26/19 12:00) Other Primary Care Physician: Nicky Mccall MD [Primary Care Provider] - Doctors: Dr Gonsales at [facility] Prior records reviewed: Yes Surgical History: appendectomy, cholecystectomy, hysterectomy, - - Appendectomy, cholecystectomy, hysterectomy, bilateral wrist cyst removal, right carpal tunnel surgery, recent right liver lobe adenoma ablation in addition to left upper extremity lipoma removal. Lives: Spouse/ Significant Other Smoking Status: Current some day smoker - Family History Paternal Family History: Reports: - - Patient is adopted and states she does not know any of her maternal or paternal family history. Maternal Family History: Reports: - - Patient is adopted and states she does not know any of her maternal or paternal family history. Review of Systems General: Denies: Chills, Fever Eyes: Denies: Visual changes - bilaterally ENT: Denies: Bilateral ear pain Cardiovascular: Denies: Chest pain Respiratory: Denies: Dyspnea, Cough Gastrointestinal: Reports: Abdominal pain, Nausea. Denies: Vomiting Genitourinary: Denies: Dysuria Musculoskeletal: Reports: Extremity Pain - Pain radiates to right shoulder Skin: Denies: Rash Neurological: Denies: Headache Allergy: Denies: Uticaria Physical Exam Vital Signs/Narrative: Vital Signs Temp Pulse Resp BP Pulse Ox 10/26/19 12:02 97.8 F 101 H 18 87/57 L 97 Inital Vital Signs reviewed: Yes General: Well nourished, Well developed Head: Normocephalic ENT: Moist mucous membranes Neck: Supple Cardiovascular: Regular rate, Regular rhythm Respiratory: No distress, CTA bilaterally Abdomen: Soft, Normal bowel sounds, Tender - Mild tenderness location right upper quadrant. Extremities: Nontender Skin: Normal color Neurological: Alert, Oriented x3 Psychological: Normal affect Diagnostic/Tx/Re-eval Impressions Abdomen/Pelvis CT 10/26/19 12:25 IMPRESSION: Stable 4.9 cm x 2.5 segment hypodensity in the peripheral midportion of the right lobe of the liver. This most likely represents a hemangioma. Electronically Signed: Bora Teofilo, at 15:19 EST , Service support , 10/26/19 12:25 Abdomen/Pelvis W IV Cont ONLY [CT] Stat Laboratory Results 10/26/19 10/26/19 10/26/19 13:10 13:48 13:48 WBC 13.3 H RBC 4.34 Hgb 13.8 Hct 42.5 MCV 97.9 MCH 31.8 MCHC 32.5 RDW Std Deviation 42.6 RDW Coeff of Lynette 11.8 Plt Count 237 MPV 10.4 Immature Gran % (Auto) 1.100 H Neut % (Auto) 72.9 H Lymph % (Auto) 19.0 [place] % (Auto) 5.3 Eos % (Auto) 1.2 Baso % (Auto) 0.5 Absolute Neuts (auto) 9.7 H Absolute Lymphs (auto) 2.53 Nucleated RBC % 0 PT 12.5 INR 1.0 APTT 27.7 Sodium Potassium Chloride Carbon Dioxide Anion Gap BUN Creatinine Estim Creat Clear Calc Est GFR (MDRD) Af Amer Est GFR (MDRD) Non-Af BUN/Creatinine Ratio Glucose Calcium Total Bilirubin Direct Bilirubin AST ALT Alkaline Phosphatase Total Protein Albumin Globulin Lipase Urine Color Straw Urine Clarity Sl. Cloudy Urine pH 6.5 Ur Specific [place] 1.010 Urine Protein Negative Urine Glucose (UA) Normal Urine Ketones Negative Urine Occult Blood Negative Urine Nitrite Negative Urine Bilirubin Negative Urine Urobilinogen Normal Ur Leukocyte Esterase Negative Urine RBC 0-5 SEEN Urine WBC 0-5 SEEN Ur Squamous Epith Cells 0-5 SEEN Urine Bacteria 0 SEEN Urine Mucus 0 SEEN 10/26/19 13:48 WBC RBC Hgb Hct MCV MCH MCHC RDW Std Deviation RDW Coeff of Lynette Plt Count MPV Immature Gran % (Auto) Neut % (Auto) Lymph % (Auto) [place] % (Auto) Eos % (Auto) Baso % (Auto) Absolute Neuts (auto) Absolute Lymphs (auto) Nucleated RBC % PT INR APTT Sodium 138 Potassium 4.1 Chloride 105 Carbon Dioxide 25.0 Anion Gap 8 BUN 10 Creatinine 0.72 Estim Creat Clear Calc 91.48 Est GFR (MDRD) Af Amer 116 Est GFR (MDRD) Non-Af 96 BUN/Creatinine Ratio 13.9 Glucose 72 L Calcium 9.5 Total Bilirubin 0.40 Direct Bilirubin 0.12 AST 20 ALT 46 Alkaline Phosphatase 69 Total Protein 8.1 Albumin 4.6 Globulin 3.5 Lipase 96 Urine Color Urine Clarity Urine pH Ur Specific [place] Urine Protein Urine Glucose (UA) Urine Ketones Urine Occult Blood Urine Nitrite Urine Bilirubin Urine Urobilinogen Ur Leukocyte Esterase Urine RBC Urine WBC Ur Squamous Epith Cells Urine Bacteria Urine Mucus - Medical Decision Making Patient was given a dose of morphine but developed erythema on her right arm with itching. She is given a small dose of Benadryl. She is then treated with Dilaudid for pain. Although her initial blood pressure was low, blood pressure was normal when I checked it on initial eval and has remained stable. Blood work is reviewed with her. CT scan is also reviewed with her. It is unchanged when compared to prior. Patient has a appointment with her surgeon next Tuesday. Should be given a prescription for Percocet and Zofran in the meantime. Patient tenderness is all reproducible over the right upper quadrant. My suspicion for PE or other etiology of her pain is extremely low. Addendum: Prior to discharge patient complained of continued pain. She was given 2 additional dose of Dilaudid over the next hour and a half. At this time patient states her pain is no better and she is not able to go home. At this time I will speak with [facility] for transfer as her surgeon is known there we do not have any surgeons here that handle liver. Vital signs remained stable throughout. ED Disposition - Plan for ED Patient: Disposition: [facility] Diagnosis: Abdominal pain Instructions: ABDOMINAL PAIN, Unknown Cause, (Female) Prescriptions: Oxycodone HCl/Acetaminophen [Percocet 5/325] 1 tab PO Q6H PRN PRN 3 Days #12 tab PRN Reason: Pain Transmission Status: Received by [id number] Ondansetron [Zofran Odt] 4 mg PO Q8H PRN PRN #10 tab PRN Reason: Nausea Transmission Status: Received by [id number] Referrals: Nicky Mccall MD [Primary Care Provider] - Additional Instructions: Follow-up with your surgeon on Tuesday as scheduled.
[2019-10-26] MEDS: Ondansetron 4 MG/2 ML Vial IV ×2 (13:06→15:36)
[2019-10-26] MEDS: Morphine 4 MG/ML Syringe IV (13:06)
[2019-10-26 13:24] LABS: Bacteria 0 SEEN /hpf (None Seen); Mucous, Urine 0 SEEN /hpf (<or=2+)
[2019-10-26 13:33] LABS: Color, Urine Straw (Yellow); Glucose, Dipstick Normal (Normal); Ketone-Dipstick Negative (Negative); Leukocyte Esterase-Dipstick Negative /ul (Negative); Nitrite-Dipstick Negative (Negative); Occult Blood-Urine Negative /ul (Negative); Protein-Dipstick Negative (Negative); Urine Bilirubin Dipstick Negative (Negative); Urine Clarity Sl. Cloudy (Clear); Urine Urobilinogen Normal (Normal); Urine pH 6.5 (5.0 - 8.0)
[2019-10-26] MEDS: DiphenhydrAMINE 50 MG/ML Syringe 12.5 MG IV (13:39)
[2019-10-26 13:45] VITALS: BP 113/89
[2019-10-26 13:46] LABS: Red Blood Cells-Urine 0-5 SEEN /hpf (0-5); Squamous Epithelial Cells - UA 0-5 SEEN /hpf (5-10); White Blood Cells 0-5 SEEN /hpf (0-5)
[2019-10-26] MEDS: HYDROmorphone 0.5 MG/0.5 ML SYRINGE IV ×2 (14:04→17:17)
[2019-10-26] MEDS: 0.9% Normal Saline 1,000 ML 150 ML IV (14:04)
[2019-10-26 14:08] LABS: Absolute Lymphocyte Count 2.53 X10^3/uL (0.83-4.51); Absolute Neutrophil Count 9.7 X10^3/uL (2.0-7.7); Basophil# 0.07 X10^3/uL; Basophil% 0.5 % (0-1); Eosinophil# 0.16 X10^3/uL; Eosinophils% 1.2 % (0-5); Hematocrit 42.5 % (37-47); Hemoglobin 13.8 g/dL (12.0-15.0); Lymphocyte # 2.53 X10^3/ul (4.0); Mean Corp Hgb Conc 32.5 g/dL (32-36); Mean Corpuscular Hgb 31.8 pg (27.0-32.0); Mean Corpuscular Volume 97.9 fL (81-99); Mean Platelet Vol. 10.4 fl (6.2-12.0); Monocyte% 5.3 % (0-10); NRBC Flagged by Analyzer 0 % (0-5); Neutrophil % 72.9 % (47-70); Platelet Count 237 K/mm3 (150-450); RBC Distribution Width CV 11.8 % (11.6-14.6); RBC Distribution Width SD 42.6 fl (35.1-43.9); Red Blood Count 4.34 M/mm3 (4.2-5.4); White Blood Count 13.3 K/mm3 (4.4-11.0)
[2019-10-26 14:11] LABS: Partial Thromboplast Time 27.7 Seconds (24.1-36.2); Prothrombin Time (Protime)PT. 12.5 SECONDS (11.7-14.9)
[2019-10-26 14:26] LABS: AST(SGOT) 20 U/L (15-37); Alanine Aminotransfer ALT/SGPT 46 U/L (13-56); Albumin, Serum 4.6 g/dL (3.2-5.0); Alkaline Phosphatase 69 U/L (45-117); Anion Gap 8 (5-15); BUN 10 mg/dL (7-18); BUN/Creat Ratio 13.9 RATIO (10-20); Bilirubin, Direct 0.12 mg/dL (0.00-0.30); Calcium,Total 9.5 mg/dL (8.5-10.1); Chloride 105 mmol/L (98-107); Creatinine, Serum 0.72 mg/dL (0.55-1.02); EST Glomerular Filtration Rate 96 mL/min (>60); Est Glom Filt Rate - Afr Amer 116 mL/min (>60); Estimated Creatinine Clearance 91.48 ml/min; Globulin 3.5 g/dL (2.2-4.2); Glucose 72 mg/dL (74-106); Lipase 96 U/L (73-393); Potassium 4.1 mmol/L (3.5-5.1); Protein, Total 8.1 g/dL (6.4-8.2); Sodium Level 138 mmol/L (136-145)
[2019-10-26] MEDS: HYDROmorphone 1 MG/ML Syringe IV (15:37)
[2019-10-26 17:46] VITALS: BP 143/91; PULSE 90; RESP 17; O2SAT 100
[2019-10-26] MEDS: proMETHazine 25 MG/ML Syringe 12.5 MG IV (18:46)
[2019-10-26 19:05] VITALS: BP 127/83; PULSE 74; RESP 18; O2SAT 100
== END 2019-10-26 19:05 | disposition short-term general hospital (02) ==
PROVIDERS: Emergency Provider Emergency Medicine; PCP Internal Medicine; Referring Provider Internal Medicine
DX: R10.11 Right upper quadrant pain (principal); Z90.49 Acquired absence of other specified parts of digestive tract; Z90.710 Acquired absence of both cervix and uterus
CPT/HCPCS: 36415; 74177; 80048; 80076; 81001; 83690; 85025; 85610; 85730; 96361; 96365; 96375; 96376; 99285; J7030; J7040; Q9967; A4216; J2405

== ENCOUNTER 2020-03-31 15:06 | Observation (INO) | payer BC, SELFPAY ==
[2020-03-31] VITALS (10 sets, daily range): BP systolic 100–146; BP diastolic 66–108; PULSE 80–100; RESP 14–19; TEMP 36.6–37.1; O2SAT 97–100; BMI 33.2; BMI 32.9
--- NOTE | 2020-03-31 15:17 | EKG12_ITS ---
Test Reason : CP Blood Pressure : / mmHG Vent. Rate : 090 BPM Atrial Rate : 090 BPM P-R Int : 148 ms QRS Dur : 072 ms QT Int : 354 ms P-R-T Axes : 062 059 057 degrees QTc Int : 433 ms Normal sinus rhythm Normal ECG Confirmed by RAND ARTIS ([id number]), transportation director LAZARO BROWN ([id number]) on 04/08/2020 8:22:04 AM Referred By: NIKKO Confirmed By:RAND ARTIS
--- NOTE | 2020-03-31 15:18 | ED.DCSUM_ITS ---
History of Present Illness Chief Complaint: Chest Pain Informant: Patient Onset: Today Context: Sudden Onset Timing: Intermittent Current Severity: Mild Maximum Severity: Moderate Narrative: Patient presents secondary to chest pain. She states she was sitting at her desk working when she developed rather sudden substernal chest pain that radiated up to the right side of her neck and right shoulder. Pain improved after 3 or 4 minutes. She is been having waxing and waning symptoms since that time. She does report shortness of breath and some nausea. She has had a prior stress test and heart cath with no evidence of cardiac disease or intervention required. She is adopted and does not know her family history. - Past Medical History (1) GERD (gastroesophageal reflux disease) Status: Chronic (2) Hepatic adenoma Status: Chronic (3) Status post appendectomy Status: Chronic (4) Status post cholecystectomy Status: Chronic (5) Status post hysterectomy Status: Chronic Past Medical History - Allergies and Home Meds Allergies/Adverse Reactions: Allergies latex Allergy (Mild, Verified 03/31/20 15:12) IRRIATION, OR IF SHE INGEST SHE VOMITS. morphine Allergy (Verified 03/31/20 15:12) Itching Penicillins Allergy (Verified 03/31/20 15:12) Shortness of breath acetaminophen [From Darvocet-N] Adverse Reaction (Verified 03/31/20 15:12) Nausea meperidine [From Demerol] Adverse Reaction (Verified 03/31/20 15:12) Nausea propoxyphene [From Darvocet-N] Adverse Reaction (Verified 03/31/20 15:12) Nausea varenicline [From Chantix] Adverse Reaction (Verified 03/31/20 15:12) Other Primary Care Physician: Nicky Mccall MD [Primary Care Provider] - Prior records reviewed: Yes Surgical History: appendectomy, cholecystectomy, hysterectomy, - - Appendectomy, cholecystectomy, hysterectomy, bilateral wrist cyst removal, right carpal tunnel surgery, recent right liver lobe adenoma ablation in addition to left upper extremity lipoma removal. Smoking Status: Current every day smoker - Family History Paternal Family History: Reports: - - Patient is adopted and states she does not know any of her maternal or paternal family history. Maternal Family History: Reports: - - Patient is adopted and states she does not know any of her maternal or paternal family history. Review of Systems General: Denies: Chills, Fever Eyes: Denies: Visual changes - bilaterally ENT: Denies: Bilateral ear pain Cardiovascular: Reports: Chest pain Respiratory: Reports: Dyspnea. Denies: Cough Gastrointestinal: Reports: Nausea. Denies: Abdominal pain, Vomiting Genitourinary: Denies: Dysuria Musculoskeletal: Denies: Swelling, Extremity Pain Skin: Denies: Rash Neurological: Denies: Headache Hematologic: Denies: Easy bruising, Easy bleeding Allergy: Denies: Uticaria Physical Exam Vital Signs/Narrative: Vital Signs Temp Pulse Resp BP Pulse Ox 03/31/20 15:07 98.7 F 100 15 142/108 H 100 Inital Vital Signs reviewed: Yes General: Well nourished, Well developed Head: Normocephalic ENT: Moist mucous membranes Neck: Supple Cardiovascular: Regular rate, Regular rhythm Respiratory: No distress, CTA bilaterally Abdomen: Soft, Nontender, Hypoactive bowel sounds Extremities: Nontender Skin: Normal color, No rash Neurological: Alert, Oriented x3 Psychological: Normal affect Diagnostic/Tx/Re-eval Impressions Chest X-Ray 03/31/20 15:25 IMPRESSION: Normal x-ray examination of the chest. Electronically Signed: Felix Davis MD at 15:38 EDT , Service support , 03/31/20 15:25 Chest 1 View (Portable) [RAD] Stat Laboratory Results 03/31/20 03/31/20 03/31/20 15:20 15:20 15:20 WBC 12.5 H RBC 4.12 L Hgb 13.3 Hct 41.1 MCV 99.8 H MCH 32.3 H MCHC 32.4 RDW Std Deviation 45.5 H RDW Coeff of Lynette 12.5 Plt Count 237 MPV 10.3 Immature Gran % (Auto) 1.000 H Neut % (Auto) 67.1 Lymph % (Auto) 24.1 [place] % (Auto) 5.3 Eos % (Auto) 1.9 Baso % (Auto) 0.6 Absolute Neuts (auto) 8.4 H Absolute Lymphs (auto) 3.00 Nucleated RBC % 0 D-Dimer Quant (PE/DVT) Cancelled Sodium Cancelled Potassium Cancelled Chloride Cancelled Carbon Dioxide Cancelled Anion Gap Cancelled BUN Cancelled Creatinine Cancelled Estim Creat Clear Calc Cancelled Est GFR (MDRD) Af Amer Cancelled Est GFR (MDRD) Non-Af Cancelled BUN/Creatinine Ratio Cancelled Glucose Cancelled Calcium Cancelled Troponin I Cancelled 03/31/20 03/31/20 03/31/20 15:50 15:50 16:34 WBC RBC Hgb Hct MCV MCH MCHC RDW Std Deviation RDW Coeff of Lynette Plt Count MPV Immature Gran % (Auto) Neut % (Auto) Lymph % (Auto) [place] % (Auto) Eos % (Auto) Baso % (Auto) Absolute Neuts (auto) Absolute Lymphs (auto) Nucleated RBC % D-Dimer Quant (PE/DVT) Cancelled Sodium Cancelled 135 L Potassium Cancelled 4.5 Chloride Cancelled 107 Carbon Dioxide Cancelled 20.0 L Anion Gap Cancelled 8 BUN Cancelled 16 Creatinine Cancelled 0.76 Estim Creat Clear Calc Cancelled 85.82 Est GFR (MDRD) Af Amer Cancelled 109 Est GFR (MDRD) Non-Af Cancelled 90 BUN/Creatinine Ratio Cancelled 21.1 H Glucose Cancelled 77 Calcium Cancelled 9.3 Troponin I Cancelled < 0.015 03/31/20 16:34 WBC RBC Hgb Hct MCV MCH MCHC RDW Std Deviation RDW Coeff of Lynette Plt Count MPV Immature Gran % (Auto) Neut % (Auto) Lymph % (Auto) [place] % (Auto) Eos % (Auto) Baso % (Auto) Absolute Neuts (auto) Absolute Lymphs (auto) Nucleated RBC % D-Dimer Quant (PE/DVT) 0.29 Sodium Potassium Chloride Carbon Dioxide Anion Gap BUN Creatinine Estim Creat Clear Calc Est GFR (MDRD) Af Amer Est GFR (MDRD) Non-Af BUN/Creatinine Ratio Glucose Calcium Troponin I - EKG Initial EKG Interpretation: Sinus Rhythm - Sinus at 90 with no acute ischemia. Follow-up EKG Interpretation: Sinus Rhythm - Sinus at 74 with no acute ischemia. - Medical Decision Making Patient was given aspirin on arrival along with a dose of Dilaudid and Zofran. Patient had a couple episodes of recurrent pain while here. A total of 3 EKGs have been obtained and do not indicate ischemia. Initial blood work is remarkable. Patient did come in with only 20 minutes of symptoms however and I do feel she should be observed overnight for cycling of cardiac enzymes. Hospitalist is on page. ED Disposition - Plan for ED Patient: Disposition: [facility] Diagnosis: Chest pain Referrals: Nicky Mccall MD [Primary Care Provider] -
[2020-03-31] MEDS: Aspirin 81 MG TAB.CHEW 324 MG PO (15:25)
--- NOTE | 2020-03-31 15:25 | RAD_ITS ---
STUDY: X-RAY CHEST REASON FOR EXAM: Female, 40 years old. SOB AND CHEST PAIN TECHNIQUE: Single AP portable view of the chest. COMPARISON: 05/14/2018 FINDINGS: EKG leads overlie the chest The lungs are clear and expanded. There is no demonstrated pleural abnormality. Normal size heart. Normal mediastinum and simone. Normal visualized pulmonary arteries. Normal visualized aortic arch and descending thoracic aorta. Normal visualized thoracic spine. Normal visualized ribs, clavicles, and shoulders. There is no demonstrated abnormality of the visualized soft tissue structures of the upper abdomen. RAD/Chest 1 View (Portable) IMPRESSION: Normal x-ray examination of the chest. Electronically Signed: Felix Davis MD at 15:38 EDT , Service support ,
[2020-03-31] MEDS: Ondansetron 4 MG/2 ML Vial IV ×3 (15:27→18:56)
[2020-03-31] MEDS: HYDROmorphone 0.5 MG/0.5 ML SYRINGE IV ×3 (15:28→21:04)
[2020-03-31 15:31] LABS: Absolute Neutrophil Count 8.4 X10^3/uL (2.0-7.7); Basophil# 0.08 X10^3/uL; Basophil% 0.6 % (0-1); Eosinophil# 0.24 X10^3/uL; Eosinophils% 1.9 % (0-5); Hematocrit 41.1 % (37-47); Hemoglobin 13.3 g/dL (12.0-15.0); Lymphocyte % 24.1 % (19-41); Mean Corp Hgb Conc 32.4 g/dL (32-36); Mean Corpuscular Hgb 32.3 pg (27.0-32.0); Mean Corpuscular Volume 99.8 fL (81-99); Mean Platelet Vol. 10.3 fl (6.2-12.0); Monocyte# 0.66 X10^3/uL; Monocyte% 5.3 % (0-10); NRBC Flagged by Analyzer 0 % (0-5); Neutrophil # 8.35 X10^3/uL (2.7-7.7); Neutrophil % 67.1 % (47-70); Platelet Count 237 K/mm3 (150-450); RBC Distribution Width CV 12.5 % (11.6-14.6); RBC Distribution Width SD 45.5 fl (35.1-43.9); Red Blood Count 4.12 M/mm3 (4.2-5.4); White Blood Count 12.5 K/mm3 (4.4-11.0)
--- NOTE | 2020-03-31 15:41 | NURSING ---
PER LAB, NEED GREEN AND BLUE TOP
--- NOTE | 2020-03-31 16:23 | EKG12_ITS ---
Test Reason : REPEAT Blood Pressure : / mmHG Vent. Rate : 074 BPM Atrial Rate : 074 BPM P-R Int : 144 ms QRS Dur : 070 ms QT Int : 378 ms P-R-T Axes : 029 055 045 degrees QTc Int : 419 ms Normal sinus rhythm Normal ECG Confirmed by RAND ARTIS ([id number]), department editor LAZARO BROWN ([id number]) on 04/08/2020 8:22:23 AM Referred By: NIKKO Confirmed By:RAND ARTIS
--- NOTE | 2020-03-31 17:12 | EKG12_ITS ---
Test Reason : CP ADMIT Blood Pressure : / mmHG Vent. Rate : 090 BPM Atrial Rate : 090 BPM P-R Int : 150 ms QRS Dur : 074 ms QT Int : 364 ms P-R-T Axes : 060 049 051 degrees QTc Int : 445 ms Normal sinus rhythm Normal ECG When compared with ECG of 31-MAR-2020 16:47, MANUAL COMPARISON REQUIRED, DATA IS UNCONFIRMED Confirmed by RAND ARTIS ([id number]), publication editor LAZARO BROWN ([id number]) on 04/08/2020 11:24:59 AM Referred By: DR TORRES Confirmed By:RAND ARTIS
[2020-03-31 17:16] LABS: D-Dimer Quantitative (DVT/PE) 0.29 FEU/ug/m (0.27-0.49)
[2020-03-31 17:33] LABS: Anion Gap 8 (5-15); BUN 16 mg/dL (7-18); BUN/Creat Ratio 21.1 RATIO (10-20); Calcium,Total 9.3 mg/dL (8.5-10.1); Chloride 107 mmol/L (98-107); Creatinine, Serum 0.76 mg/dL (0.55-1.02); EST Glomerular Filtration Rate 90 mL/min (>60); Est Glom Filt Rate - Afr Amer 109 mL/min (>60); Estimated Creatinine Clearance 85.82 ml/min; Glucose 77 mg/dL (74-106); Potassium 4.5 mmol/L (3.5-5.1); Sodium Level 135 mmol/L (136-145)
--- NOTE | 2020-03-31 18:01 | NURSING ---
DR TORRES FOR DR EL
--- NOTE | 2020-03-31 18:03 | NURSING ---
PCU CP PAINTSIL
--- NOTE | 2020-03-31 18:05 | PCM.HP.STD ---
History of Present Illness The patient is a 40 year old F [] Past Medical History Past Medical History (Chronic Problems): Chronic Problems Hepatic adenoma (Chronic) GERD (gastroesophageal reflux disease) (Chronic) Tobacco use (Chronic) Obesity (BMI 30.0-34.9) (Chronic) Status post appendectomy (Chronic) Status post hysterectomy (Chronic) Status post cholecystectomy (Chronic) Allergies latex Allergy (Mild, Verified 03/31/20 15:12) IRRIATION, OR IF SHE INGEST SHE VOMITS. morphine Allergy (Verified 03/31/20 15:12) Itching Penicillins Allergy (Verified 03/31/20 15:12) Shortness of breath acetaminophen [From Darvocet-N] Adverse Reaction (Verified 03/31/20 15:12) Nausea meperidine [From Demerol] Adverse Reaction (Verified 03/31/20 15:12) Nausea propoxyphene [From Darvocet-N] Adverse Reaction (Verified 03/31/20 15:12) Nausea varenicline [From Chantix] Adverse Reaction (Verified 03/31/20 15:12) Other Home Medications: Ambulatory Orders Medication Instructions Recorded Ibuprofen 600 - 800 mg PO DAILY PRN PRN 03/31/20 Surgical History: appendectomy, cholecystectomy, hysterectomy, - - Appendectomy, cholecystectomy, hysterectomy, bilateral wrist cyst removal, right carpal tunnel surgery, recent right liver lobe adenoma ablation in addition to left upper extremity lipoma removal. Psychiatric History: No pertinent psych hx [employer] History: No pertinent [employer] history Smoking Status: Current every day smoker - *Family History Paternal History Items: - - Patient is adopted and states she does not know any of her maternal or paternal family history. Maternal History Items: - - Patient is adopted and states she does not know any of her maternal or paternal family history. Patient Problems: Active and Suspected Problems Chest pain (Acute) - Physical Exam Vitals/I&O's: Vital Signs Temp Pulse Resp BP Pulse Ox 98.7 F 82 14 134/85 H 100 03/31/20 15:07 03/31/20 17:26 03/31/20 17:26 03/31/20 17:26 03/31/20 17:26 Oxygen Flow Rate (L/min) 2 Oxygen Delivery Method Room Air Weight: 87.8 kg Body Mass Index (BMI) 33.2 Finger Stick Blood Glucose 93 Laboratory Results 03/31/20 15:20: WBC 12.5 H, RBC 4.12 L, Hgb 13.3, Hct 41.1, MCV 99.8 H, MCH 32.3 H, MCHC 32.4, RDW Std Deviation 45.5 H, RDW Coeff of Lynette 12.5, Plt Count 237, MPV 10.3, Immature Gran % (Auto) 1.000 H, Neut % (Auto) 67.1, Lymph % (Auto) 24.1, [place] % (Auto) 5.3, Eos % (Auto) 1.9, Baso % (Auto) 0.6, Absolute Neuts (auto) 8.4 H, Absolute Lymphs (auto) 3.00, Nucleated RBC % 0 03/31/20 15:20: D-Dimer Quant (PE/DVT) Cancelled 03/31/20 15:20: Sodium Cancelled, Potassium Cancelled, Chloride Cancelled, Carbon Dioxide Cancelled, Anion Gap Cancelled, BUN Cancelled, Creatinine Cancelled, Estim Creat Clear Calc Cancelled, Est GFR (MDRD) Af Amer Cancelled, Est GFR (MDRD) Non-Af Cancelled, BUN/Creatinine Ratio Cancelled, Glucose Cancelled, Calcium Cancelled, Troponin I Cancelled 03/31/20 15:50: Sodium Cancelled, Potassium Cancelled, Chloride Cancelled, Carbon Dioxide Cancelled, Anion Gap Cancelled, BUN Cancelled, Creatinine Cancelled, Estim Creat Clear Calc Cancelled, Est GFR (MDRD) Af Amer Cancelled, Est GFR (MDRD) Non-Af Cancelled, BUN/Creatinine Ratio Cancelled, Glucose Cancelled, Calcium Cancelled, Troponin I Cancelled 03/31/20 15:50: D-Dimer Quant (PE/DVT) Cancelled 03/31/20 16:34: Sodium 135 L, Potassium 4.5, Chloride 107, Carbon Dioxide 20.0 L, Anion Gap 8, BUN 16, Creatinine 0.76, Estim Creat Clear Calc 85.82, Est GFR (MDRD) Af Amer 109, Est GFR (MDRD) Non-Af 90, BUN/Creatinine Ratio 21.1 H, Glucose 77, Calcium 9.3, Troponin I < 0.015 03/31/20 16:34: D-Dimer Quant (PE/DVT) 0.29 Assessment/Plan All Active Problems RUQ pain (Acute) Abnormal stress test (Acute) Chest pain (Acute) Partial obstruction of small intestine (Resolved) Abdominal pain (Acute)
--- NOTE | 2020-03-31 18:18 | PCM.HP.STD ---
<Lindsay Rodriguez - Last Filed: 03/31/20 18:47> Problem List (1) Chest pain Status: Acute (2) GERD (gastroesophageal reflux disease) Status: Chronic Qualifiers: Esophagitis presence: esophagitis presence not specified Qualified Code(s): K21.9 - Gastro-esophageal reflux disease without esophagitis (3) Hepatic adenoma Status: Chronic (4) Obesity (BMI 30.0-34.9) Status: Chronic (5) Tobacco use Status: Chronic History of Present Illness Date of Admission: 03/31/20 Chief Complaint: Chest pain. The patient is a 40 year old F who presents to the emergency room due to chest pain. Patient reports she was at her desk at work when she developed sudden onset chest pressure feeling like a belt was wrapped around her chest and squeezing her. She reports associated pain in her right shoulder blade radiating into her right neck and jaw. She describes associated nausea and shortness of breath. She states the episode lasted approximately 10 to 15 minutes and then resolved. Her symptoms have since returned intermittently. Patient reports she had an abnormal stress test following episode of chest pain in 2017. She subsequently underwent cardiac catheterization which per records demonstrated normal coronary arteries. She has a past medical history of GERD, hepatic adenoma, tobacco dependence, obesity. Past Medical History Past Medical History (Chronic Problems): Chronic Problems Hepatic adenoma (Chronic) GERD (gastroesophageal reflux disease) (Chronic) Tobacco use (Chronic) Obesity (BMI 30.0-34.9) (Chronic) Status post appendectomy (Chronic) Status post hysterectomy (Chronic) Status post cholecystectomy (Chronic) Allergies latex Allergy (Mild, Verified 03/31/20 15:12) IRRIATION, OR IF SHE INGEST SHE VOMITS. morphine Allergy (Verified 03/31/20 15:12) Itching Penicillins Allergy (Verified 03/31/20 15:12) Shortness of breath acetaminophen [From Darvocet-N] Adverse Reaction (Verified 03/31/20 15:12) Nausea meperidine [From Demerol] Adverse Reaction (Verified 03/31/20 15:12) Nausea propoxyphene [From Darvocet-N] Adverse Reaction (Verified 03/31/20 15:12) Nausea varenicline [From Chantix] Adverse Reaction (Verified 03/31/20 15:12) Other Home Medications: Ambulatory Orders Medication Instructions Recorded Ibuprofen 600 - 800 mg PO DAILY PRN PRN 03/31/20 Surgical History: appendectomy, cholecystectomy, hysterectomy, - - Appendectomy, cholecystectomy, hysterectomy, bilateral wrist cyst removal, right carpal tunnel surgery, right liver lobe adenoma ablation in addition to left upper extremity lipoma removal. 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 Maternal History Items: - - Patient is adopted and states she does not know any of her maternal or paternal family history. Review of Systems Constitutional: Denies: Chills, Fever, Weight Change HEENT: Denies: Head Aches, Sinus Congestion, Sinus Drainage Cardiovascular: Reports: Chest Pain, Light Headedness. Denies: Palpitations, Syncope Respiratory: Reports: Shortness of Breath - Associated with chest pain. Denies: Cough Gastrointestinal: Reports: Nausea. Denies: Abdominal Pain, Vomiting Genitourinary: Denies: Dysuria Musculoskeletal: Denies: Joint Pain, Joint Tenderness Skin: Denies: Rash, Wounds Neurological: Denies: Numbness, Tingling, Focal weakness Psychiatric: Denies: Anxiety, Depression, Homicidal Ideations, Suicidal Ideations Hematologic/ Lymphatic: Denies: Easy Bruising, Easy Bleeding VTE Information - Inpt Only VTE Present on Admission: No VTE Mechan Device Prophylaxis: None VTE Pharm Prophylaxis ordered?: Yes Patient Problems: Active and Suspected Problems Chest pain (Acute) - Physical Exam Vitals/I&O's: Vital Signs Temp Pulse Resp BP Pulse Ox 98.5 F 90 17 100/66 98 03/31/20 18:07 03/31/20 18:07 03/31/20 18:07 03/31/20 18:07 03/31/20 18:07 Oxygen Flow Rate (L/min) 2 Oxygen Delivery Method Room Air Weight: 193 lb 9.054 oz Body Mass Index (BMI) 33.2 Finger Stick Blood Glucose 93 General: Alert, Oriented x3, Cooperative HEENT: Atraumatic, PERRLA, EOMI, Normocephalic Neck: Supple, No JVD, Negative Carotid Bruits Lungs: Clear to auscultation, Normal air movement Cardiovascular: Regular rate, No murmurs Abdomen: Bowel Sounds Present, Soft, Non Tender Extremities: No edema, Capillary Refill Less than 3 Seconds Skin: No rashes, No breakdown Musculoskeletal: No Tenderness to Palpation of Joints or Extremities Neurological: Cranial nerves II-XII grossly intact Psych/Mental Status: Normal Affect, Appropriate Laboratory Results 03/31/20 15:20: WBC 12.5 H, RBC 4.12 L, Hgb 13.3, Hct 41.1, MCV 99.8 H, MCH 32.3 H, MCHC 32.4, RDW Std Deviation 45.5 H, RDW Coeff of Lynette 12.5, Plt Count 237, MPV 10.3, Immature Gran % (Auto) 1.000 H, Neut % (Auto) 67.1, Lymph % (Auto) 24.1, [place] % (Auto) 5.3, Eos % (Auto) 1.9, Baso % (Auto) 0.6, Absolute Neuts (auto) 8.4 H, Absolute Lymphs (auto) 3.00, Nucleated RBC % 0 03/31/20 15:20: D-Dimer Quant (PE/DVT) Cancelled 03/31/20 15:20: Sodium Cancelled, Potassium Cancelled, Chloride Cancelled, Carbon Dioxide Cancelled, Anion Gap Cancelled, BUN Cancelled, Creatinine Cancelled, Estim Creat Clear Calc Cancelled, Est GFR (MDRD) Af Amer Cancelled, Est GFR (MDRD) Non-Af Cancelled, BUN/Creatinine Ratio Cancelled, Glucose Cancelled, Calcium Cancelled, Troponin I Cancelled 03/31/20 15:50: Sodium Cancelled, Potassium Cancelled, Chloride Cancelled, Carbon Dioxide Cancelled, Anion Gap Cancelled, BUN Cancelled, Creatinine Cancelled, Estim Creat Clear Calc Cancelled, Est GFR (MDRD) Af Amer Cancelled, Est GFR (MDRD) Non-Af Cancelled, BUN/Creatinine Ratio Cancelled, Glucose Cancelled, Calcium Cancelled, Troponin I Cancelled 03/31/20 15:50: D-Dimer Quant (PE/DVT) Cancelled 03/31/20 16:34: Sodium 135 L, Potassium 4.5, Chloride 107, Carbon Dioxide 20.0 L, Anion Gap 8, BUN 16, Creatinine 0.76, Estim Creat Clear Calc 85.82, Est GFR (MDRD) Af Amer 109, Est GFR (MDRD) Non-Af 90, BUN/Creatinine Ratio 21.1 H, Glucose 77, Calcium 9.3, Troponin I < 0.015 03/31/20 16:34: D-Dimer Quant (PE/DVT) 0.29 Assessment/Plan All Active Problems RUQ pain (Acute) Abnormal stress test (Acute) Chest pain (Acute) Partial obstruction of small intestine (Resolved) Abdominal pain (Acute) 1. Atypical chest pain-EKG without ST-T changes. Initial troponin negative. Trend enzymes. Given patient stress test in 2017 with normal coronary arteries, do not feel patient needs stress test. Will trend enzymes and repeat EKG in a.m. 2. GERD-continue PPI. 3. Tobacco dependence-encouraged cessation. 4. Obesity-encouraged diet lifestyle modifications. 5. Hepatic adenoma-resected at [facility]. Patient reports she has had an additional adenoma return. Continue outpatient follow-up. DVT prophylaxis-SCDs, Lovenox This patient was seen by JOHNNY Rolle under the supervision of Dr. Yates. <Anais Yates - Last Filed: 03/31/20 19:46> History of Present Illness The patient is a 40 year old F [] Past Medical History Allergies latex Allergy (Mild, Verified 03/31/20 15:12) IRRIATION, OR IF SHE INGEST SHE VOMITS. morphine Allergy (Verified 03/31/20 15:12) Itching Penicillins Allergy (Verified 03/31/20 15:12) Shortness of breath acetaminophen [From Darvocet-N] Adverse Reaction (Verified 03/31/20 15:12) Nausea meperidine [From Demerol] Adverse Reaction (Verified 03/31/20 15:12) Nausea propoxyphene [From Darvocet-N] Adverse Reaction (Verified 03/31/20 15:12) Nausea varenicline [From Chantix] Adverse Reaction (Verified 03/31/20 15:12) Other - Physical Exam Vitals/I&O's: Vital Signs Temp Pulse Resp BP Pulse Ox 98.5 F 86 16 146/91 H 100 03/31/20 18:33 03/31/20 19:13 03/31/20 18:33 03/31/20 19:13 03/31/20 18:33 Oxygen Flow Rate (L/min) 2 Oxygen Delivery Method Room Air Weight: 87 kg Body Mass Index (BMI) 32.9 Finger Stick Blood Glucose 93 Laboratory Results 03/31/20 15:20: WBC 12.5 H, RBC 4.12 L, Hgb 13.3, Hct 41.1, MCV 99.8 H, MCH 32.3 H, MCHC 32.4, RDW Std Deviation 45.5 H, RDW Coeff of Lynette 12.5, Plt Count 237, MPV 10.3, Immature Gran % (Auto) 1.000 H, Neut % (Auto) 67.1, Lymph % (Auto) 24.1, [place] % (Auto) 5.3, Eos % (Auto) 1.9, Baso % (Auto) 0.6, Absolute Neuts (auto) 8.4 H, Absolute Lymphs (auto) 3.00, Nucleated RBC % 0 03/31/20 15:20: D-Dimer Quant (PE/DVT) Cancelled 03/31/20 15:20: Sodium Cancelled, Potassium Cancelled, Chloride Cancelled, Carbon Dioxide Cancelled, Anion Gap Cancelled, BUN Cancelled, Creatinine Cancelled, Estim Creat Clear Calc Cancelled, Est GFR (MDRD) Af Amer Cancelled, Est GFR (MDRD) Non-Af Cancelled, BUN/Creatinine Ratio Cancelled, Glucose Cancelled, Calcium Cancelled, Troponin I Cancelled 03/31/20 15:50: Sodium Cancelled, Potassium Cancelled, Chloride Cancelled, Carbon Dioxide Cancelled, Anion Gap Cancelled, BUN Cancelled, Creatinine Cancelled, Estim Creat Clear Calc Cancelled, Est GFR (MDRD) Af Amer Cancelled, Est GFR (MDRD) Non-Af Cancelled, BUN/Creatinine Ratio Cancelled, Glucose Cancelled, Calcium Cancelled, Troponin I Cancelled 03/31/20 15:50: D-Dimer Quant (PE/DVT) Cancelled 03/31/20 16:34: Sodium 135 L, Potassium 4.5, Chloride 107, Carbon Dioxide 20.0 L, Anion Gap 8, BUN 16, Creatinine 0.76, Estim Creat Clear Calc 85.82, Est GFR (MDRD) Af Amer 109, Est GFR (MDRD) Non-Af 90, BUN/Creatinine Ratio 21.1 H, Glucose 77, Calcium 9.3, Troponin I < 0.015 03/31/20 16:34: D-Dimer Quant (PE/DVT) 0.29 Current Medications Acetaminophen (Tylenol) 650 mg PO Q6H PRN PRN PRN Reason: Pain Score 1-10/Temp > 100.7 F Al Hydroxide/Mg Hydroxide (Mylanta Ii) 30 ml PO Q6H PRN PRN PRN Reason: Gastric Burning Morphine Sulfate () 2 mg IV Q3H PRN PRN PRN Reason: Pain Score 6-10/10 Nitroglycerin (Nitrostat) 0.4 mg SUBLINGUAL Q5M PRN PRN Reason: CARDIAC/CHEST PAIN Last Admin: 03/31/20 19:13 Dose: 0.4 mg Documented by: Ondansetron HCl (Zofran) 4 mg IV Q8H PRN PRN PRN Reason: NAUSEA/VOMITING Last Admin: 03/31/20 18:56 Dose: 4 mg Documented by: Sodium Chloride () 10 - 40 ml IV UD PRN PRN Reason: SALINE FLUSH Last Admin: 03/31/20 18:56 Dose: 10 ml Documented by: Assessment/Plan This patient was seen in conjunction with Lindsay Rodriguez. I have independently interviewed and examined the patient and reviewed pertinent historical, laboratory, and other data. I have reviewed her note and concur with her documentation 40-year-old with past medical history of GERD, chronic smoker who comes in complaints of chest pain that started this afternoon. This chest pain is described as substernal/epigastric, squeezing, radiates to her neck and jaw. Started when she was seated. Associated with nausea, diaphoresis, dizziness. Has a history of an abnormal stress test status post cardiac cath that was unremarkable in May 2017. Physical Exam: Gen: Comfortable, in mild distress, not pale, not jaundiced CVS:HS I +II, regular, no murmurs RESP: CTA GI: BS present and normal, soft, nontender, no palpable organs EXT:No edema Labs: ASSESSMENT: 1. Chest pain, r/o ACS 2. GERD 3. Chronic smoker 4. Obesity 5. H/o hepatic adenoma resection Plan: Trend troponins, monitor on telemetry Nuclear stress test in a.m. if still symptomatic Gentle IV fluids IV PPI OBSV E&M: [id number] Initial observation care L3
[2020-03-31] MEDS: 0.9% Saline Lock 10 ML Syringe IV ×2 (18:56→21:04)
--- NOTE | 2020-03-31 19:00 | EKG12_ITS ---
Test Reason : CP Blood Pressure : / mmHG Vent. Rate : 079 BPM Atrial Rate : 079 BPM P-R Int : 156 ms QRS Dur : 070 ms QT Int : 368 ms P-R-T Axes : 063 060 048 degrees QTc Int : 421 ms Normal sinus rhythm Normal ECG Confirmed by RAND ARTIS [id number]), art editor LAZARO BROWN ([id number]) on 04/08/2020 8:22:41 AM Referred By: 3RD EKG NIKKO Confirmed By:RAND ARTIS
[2020-03-31] MEDS: Nitroglycerin (INPATIENT USE) 0.4 MG TAB.SUBL SUBLINGUAL ×3 (19:13→19:35)
[2020-03-31] MEDS: 0.9% Normal Saline 1,000 ML 100 ML IV (21:07)
[2020-04-01] VITALS (10 sets, daily range): BP systolic 113–147; BP diastolic 76–90; PULSE 69–92; RESP 16; TEMP 36.7–37.2; O2SAT 96–98
[2020-04-01] MEDS: HYDROmorphone 0.5 MG/0.5 ML SYRINGE IV ×3 (01:11→11:04)
[2020-04-01] MEDS: 0.9% Saline Lock 10 ML Syringe IV ×7 (01:12→23:19)
[2020-04-01] MEDS: Ondansetron 4 MG/2 ML Vial IV ×3 (03:44→20:36)
[2020-04-01 05:34] LABS: Absolute Lymphocyte Count 2.35 X10^3/uL (0.83-4.51); Absolute Neutrophil Count 5.8 X10^3/uL (2.0-7.7); Basophil# 0.06 X10^3/uL; Basophil% 0.6 % (0-1); Eosinophil# 0.26 X10^3/uL; Eosinophils% 2.8 % (0-5); Hematocrit 39.5 % (37-47); Hemoglobin 12.7 g/dL (12.0-15.0); Lymphocyte # 2.35 X10^3/ul (4.0); Lymphocyte % 25.4 % (19-41); Mean Corp Hgb Conc 32.2 g/dL (32-36); Mean Corpuscular Hgb 32.7 pg (27.0-32.0); Mean Corpuscular Volume 101.8 fL (81-99); Mean Platelet Vol. 10.2 fl (6.2-12.0); Monocyte# 0.69 X10^3/uL; Monocyte% 7.4 % (0-10); NRBC Flagged by Analyzer 0 % (0-5); Neutrophil # 5.79 X10^3/uL (2.7-7.7); Neutrophil % 62.5 % (47-70); Platelet Count 179 K/mm3 (150-450); RBC Distribution Width CV 12.5 % (11.6-14.6); RBC Distribution Width SD 46.4 fl (35.1-43.9); Red Blood Count 3.88 M/mm3 (4.2-5.4); White Blood Count 9.3 K/mm3 (4.4-11.0)
--- NOTE | 2020-04-01 05:55 | EKG12_ITS ---
Test Reason : AM EKG Blood Pressure : / mmHG Vent. Rate : 072 BPM Atrial Rate : 072 BPM P-R Int : 170 ms QRS Dur : 078 ms QT Int : 382 ms P-R-T Axes : 060 057 057 degrees QTc Int : 418 ms Normal sinus rhythm Normal ECG When compared with ECG of 31-MAR-2020 19:49, MANUAL COMPARISON REQUIRED, DATA IS UNCONFIRMED Confirmed by RAND ARTIS ([id number]), supervising editor news reel LAZARO BROWN ([id number]) on 04/08/2020 11:31:41 AM Referred By: MELISSA Confirmed By:RAND ARTIS
[2020-04-01 06:08] LABS: ALB/GLOB Ratio 1.2 RATIO (0.9-2.4); AST(SGOT) 20 U/L (15-37); Alanine Aminotransfer ALT/SGPT 34 U/L (13-56); Albumin, Serum 3.2 g/dL (3.2-5.0); Alkaline Phosphatase 52 U/L (45-117); Anion Gap 8 (5-15); BUN 14 mg/dL (7-18); BUN/Creat Ratio 19.4 RATIO (10-20); Calcium,Total 8.2 mg/dL (8.5-10.1); Chloride 108 mmol/L (98-107); Creatinine, Serum 0.72 mg/dL (0.55-1.02); EST Glomerular Filtration Rate 95 mL/min (>60); Est Glom Filt Rate - Afr Amer 115 mL/min (>60); Estimated Creatinine Clearance 90.59 ml/min; Globulin 2.7 g/dL (2.2-4.2); Glucose 94 mg/dL (74-106); Potassium 4.6 mmol/L (3.5-5.1); Protein, Total 5.9 g/dL (6.4-8.2); Sodium Level 139 mmol/L (136-145)
[2020-04-01] MEDS: 0.9% Normal Saline 1,000 ML 100 ML IV (07:21)
[2020-04-01] MEDS: Acetaminophen 325 MG Tablet 650 MG PO ×3 (11:04→23:18)
--- NOTE | 2020-04-01 12:41 | STRESSREP_ITS ---
Stress Test Report Date: 04-01-2020 Procedure: Pharmacologic stress nuclear imaging study Indications: Chest pain Consent: Per the patient Procedure: The patient underwent pharmacologic (Regadenoson) evaluation with a peak heart rate of 126 beats per minute (69 %predicted maximal heart rate) and a peak blood pressure of 118/78 mmHg. The baseline ECG demonstrated normal sinus rhythm. The peak pharmacologic ECG demonstrated no obvious ECG changes. [There were no cardiac dysrhythmias pretest, during pharmacologic infusion, or recovery]. [There was no complaint of chest discomfort during pharmacologic infusion or recovery]. The examination was discontinued secondary to completion of protocol. Impression: 1. Pharmacologic (Regadenoson) evaluation 2. Peak pharmacologic ECG with no obvious ECG changes. 3. [There were no cardiac dysrhythmias pretest, during pharmacologic infusion, or recovery]. 4. Nuclear images pending Myocardial perfusion imaging study: Technique: The patient was injected with 12.0 millicuries of technetium 99m Cardiolite and subsequently rest SPECT Cardiolite nuclear imaging was obtained in the horizontal long, vertical long, and short axis views. The patient underwent pharmacologic (Regadenoson) evaluation with a peak heart rate of 126 beats per minute (69 % percent predicted maximal heart rate) and a peak blood pressure of 118/78 mmHg. The patient was injected with 36.0 millicuries of technetium 99m Cardiolite and subsequently stress SPECT Cardiolite nuclear imaging was obtained in the horizontal long, vertical long, and short axis views. A gated Cardiolite study at peak stress was obtained. Interpretation: Rest and stress SPECT Cardiolite nuclear imaging status post realignment, normalization, and attenuation correction demonstrate relative uniform tracer uptake and myocardial perfusion appearing within normal limits. [There is end systolic thickening and brightening]. [The gated Cardiolite study demonstrates myocardial thickening and inward wall motion]. The reported LVEF is 69 %. Impression: 1. [Rest and stress SPECT Cardiolite nuclear imaging demonstrate relative uniform tracer uptake and myocardial perfusion appearing within normal limits]. 2. The gated Cardiolite study reports an LVEF of 69 %. This note was generated with [employer] software. It may contain incorrect words, spelling, and punctuation that were not noted in checking the note before signing.
[2020-04-01] MEDS: Pantoprazole Sodium 40 MG Tablet PO (13:08)
[2020-04-01] MEDS: Ketorolac 30 MG/ML Syringe IV ×3 (14:30→23:18)
--- NOTE | 2020-04-01 15:10 | CT_ITS ---
STUDY: CT BRAIN WITHOUT CONTRAST REASON FOR EXAM: Female, 40 years old. Headache, CP RADIATION DOSAGE (If Supplied By Facility): CTDIvol = ( 60.81 ) mGy, DLP = ( 975.86 ) mGycm TECHNIQUE: Transaxial CT imaging of the brain was performed without administration of intravenous contrast material. Individualized dose optimization techniques were used for this CT. COMPARISON: 05/14/2018 FINDINGS: Normal soft tissue structures. Normal calvarium. Normal size ventricles and extra-axial spaces for the patient''s age. Normal white matter tracts of the cerebral hemispheres. Normal basal ganglia and thalami. Normal brainstem. Normal cerebellum. There is no intracranial hemorrhage. There are no findings of an acute ischemic infarction. Normal visualized paranasal sinuses. CT/Brain/Head without Contrast IMPRESSION: Normal unenhanced CT scan of the brain. Electronically Signed: Mehdi Lerma MD at 16:38 EDT , Service support ,
--- NOTE | 2020-04-01 15:44 | PN_ITS ---
<Lindsay Rodriguez - Last Filed: 04/01/20 15:56> Patient Problems: Active and Suspected Problems Chest pain (Acute) Subjective: Patient seen and examined. Reports ongoing headache, intractable nausea. States her head feels like it is going to explode. States she cannot keep food down due to nausea. Continues to have intermittent chest pain. - Physical Exam Vitals/I&O's: Vital Signs Temp Pulse Resp BP Pulse Ox 99 F 69 16 122/77 H 96 04/01/20 11:40 04/01/20 11:40 04/01/20 11:40 04/01/20 11:40 04/01/20 11:40 Oxygen Flow Rate (L/min) 2 Oxygen Delivery Method Room Air Weight: 193 lb 1.999 oz Body Mass Index (BMI) 32.9 Finger Stick Blood Glucose 93 Intake and Output for Last 24 Hours 03/30/20 03/31/20 04/01/20 23:59 23:59 23:59 Intake Total 110 / 350 1336.67 / 1336.67 Balance 110 / 350 1336.67 / 1336.67 General: Alert, Oriented x3, Cooperative HEENT: Atraumatic, PERRLA, EOMI, Normocephalic Neck: Supple, No JVD, Negative Carotid Bruits Lungs: Clear to auscultation, Normal air movement Cardiovascular: Regular rate, No murmurs Abdomen: Bowel Sounds Present, Soft, Non Tender Extremities: No clubbing, No cyanosis, No edema, Capillary Refill Less than 3 Seconds Skin: No rashes, No breakdown Musculoskeletal: No Tenderness to Palpation of Joints or Extremities Neurological: Cranial nerves II-XII grossly intact, Neuro grossly intact Psych/Mental Status: Normal Affect, Appropriate Laboratory Results 03/31/20 15:50: Sodium Cancelled, Potassium Cancelled, Chloride Cancelled, Carbon Dioxide Cancelled, Anion Gap Cancelled, BUN Cancelled, Creatinine Cancelled, Estim Creat Clear Calc Cancelled, Est GFR (MDRD) Af Amer Cancelled, Est GFR (MDRD) Non-Af Cancelled, BUN/Creatinine Ratio Cancelled, Glucose Cancelled, Calcium Cancelled, Troponin I Cancelled 03/31/20 15:50: D-Dimer Quant (PE/DVT) Cancelled 03/31/20 16:34: Sodium 135 L, Potassium 4.5, Chloride 107, Carbon Dioxide 20.0 L , Anion Gap 8, BUN 16, Creatinine 0.76, Estim Creat Clear Calc 85.82, Est GFR (MDRD) Af Amer 109, Est GFR (MDRD) Non-Af 90, BUN/Creatinine Ratio 21.1 H, Glucose 77, Calcium 9.3, Troponin I < 0.015 03/31/20 16:34: D-Dimer Quant (PE/DVT) 0.29 03/31/20 19:50: Troponin I < 0.015 03/31/20 22:20: Troponin I < 0.015 04/01/20 05:14: WBC 9.3, RBC 3.88 L, Hgb 12.7, Hct 39.5, MCV 101.8 H, MCH 32.7 H , MCHC 32.2, RDW Std Deviation 46.4 H, RDW Coeff of Lynette 12.5, Plt Count 179, MPV 10.2, Immature Gran % (Auto) 1.300 H, Neut % (Auto) 62.5, Lymph % (Auto) 25.4, [place] % (Auto) 7.4, Eos % (Auto) 2.8, Baso % (Auto) 0.6, Absolute Neuts (auto) 5.8, Absolute Lymphs (auto) 2.35, Nucleated RBC % 0 04/01/20 05:14: Sodium 139, Potassium 4.6, Chloride 108 H, Carbon Dioxide 23.0, Anion Gap 8, BUN 14, Creatinine 0.72, Estim Creat Clear Calc 90.59, Est GFR (MDRD) Af Amer 115, Est GFR (MDRD) Non-Af 95, BUN/Creatinine Ratio 19.4, Glucose 94, Calcium 8.2 L, Total Bilirubin 0.40, AST 20, ALT 34, Alkaline Phosphatase 52, Total Protein 5.9 L, Albumin 3.2, Globulin 2.7, Albumin/Globulin Ratio 1.2 Current Medications Acetaminophen (Tylenol) 650 mg PO Q6H PRN PRN PRN Reason: Pain Score 1-10/Temp > 100.7 F Last Admin: 04/01/20 11:04 Dose: 650 mg Documented by: Al Hydroxide/Mg Hydroxide (Mylanta Ii) 30 ml PO Q6H PRN PRN PRN Reason: Gastric Burning Nicotine (Nicoderm Cq (Pbkc)) 21 mg TRANSDERM. DAILY ANDREINA Last Admin: 04/01/20 11:17 Dose: 21 mg Documented by: Nicotine Polacrilex (Rugby Nicotine (Bkc)) 2 mg PO Q2H PRN PRN PRN Reason: Nicotine Craving Nitroglycerin (Nitrostat) 0.4 mg SUBLINGUAL Q5M PRN PRN Reason: CARDIAC/CHEST PAIN Last Admin: 03/31/20 19:35 Dose: 0.4 mg Documented by: Ondansetron HCl (Zofran) 4 mg IV Q6H PRN PRN PRN Reason: NAUSEA/VOMITING Last Admin: 04/01/20 14:32 Dose: 4 mg Documented by: Pantoprazole Sodium (Protonix) 40 mg PO DAILY ANDREINA Last Admin: 04/01/20 13:08 Dose: 40 mg Documented by: Sodium Chloride () 10 - 40 ml IV UD PRN PRN Reason: SALINE FLUSH Last Admin: 04/01/20 14:35 Dose: 20 ml Documented by: Medical Necessity - Tobacco Use Smoking Status: Current every day smoker Tobacco Use: Cigarettes Assessment/Plan All Active Problems RUQ pain (Acute) Abnormal stress test (Acute) Chest pain (Acute) Partial obstruction of small intestine (Resolved) Abdominal pain (Acute) 1. Atypical chest pain, ACS ruled out-EKG without ST-T changes. Troponin negative. Patient underwent nuclear stress test which was negative for ischemia. LVEF 69%. Patient had prior heart cath in 2017 which showed normal coronary arteries. 2. Intractable headache with nausea-patient reports a history of migraines however states this headache feels different from her prior migraines. Given patient report of severity of headache, will order brain CT. Discontinued IV Dilaudid as this may be contributing to rebound headache. Patient may have IV Toradol as needed for pain. 3. GERD-continue PPI. 4. Tobacco dependence-encouraged cessation. 5. Obesity-encouraged diet lifestyle modifications. 6. Hepatic adenoma-resected at [facility]. Continue outpatient follow-up. DVT prophylaxis-SCDs This patient was seen by JOHNNY Rolle under the supervision of Dr. Ray. <Conrado Ray F - Last Filed: 04/01/20 16:32> - Physical Exam Vitals/I&O's: Vital Signs Temp Pulse Resp BP Pulse Ox 98.4 F 83 16 121/76 H 98 04/01/20 15:55 04/01/20 15:55 04/01/20 15:55 04/01/20 15:55 04/01/20 15:55 Oxygen Flow Rate (L/min) 2 Oxygen Delivery Method Room Air Weight: 193 lb 1.999 oz Body Mass Index (BMI) 32.9 Finger Stick Blood Glucose 93 Intake and Output for Last 24 Hours 03/30/20 03/31/20 04/01/20 23:59 23:59 23:59 Intake Total 110 / 350 1336.67 / 1336.67 Balance 110 / 350 1336.67 / 1336.67 Laboratory Results 03/31/20 16:34: Sodium 135 L, Potassium 4.5, Chloride 107, Carbon Dioxide 20.0 L , Anion Gap 8, BUN 16, Creatinine 0.76, Estim Creat Clear Calc 85.82, Est GFR (MDRD) Af Amer 109, Est GFR (MDRD) Non-Af 90, BUN/Creatinine Ratio 21.1 H, Glucose 77, Calcium 9.3, Troponin I < 0.015 03/31/20 16:34: D-Dimer Quant (PE/DVT) 0.29 03/31/20 19:50: Troponin I < 0.015 03/31/20 22:20: Troponin I < 0.015 04/01/20 05:14: WBC 9.3, RBC 3.88 L, Hgb 12.7, Hct 39.5, MCV 101.8 H, MCH 32.7 H , MCHC 32.2, RDW Std Deviation 46.4 H, RDW Coeff of Lynette 12.5, Plt Count 179, MPV 10.2, Immature Gran % (Auto) 1.300 H, Neut % (Auto) 62.5, Lymph % (Auto) 25.4, [place] % (Auto) 7.4, Eos % (Auto) 2.8, Baso % (Auto) 0.6, Absolute Neuts (auto) 5.8, Absolute Lymphs (auto) 2.35, Nucleated RBC % 0 04/01/20 05:14: Sodium 139, Potassium 4.6, Chloride 108 H, Carbon Dioxide 23.0, Anion Gap 8, BUN 14, Creatinine 0.72, Estim Creat Clear Calc 90.59, Est GFR (MDRD) Af Amer 115, Est GFR (MDRD) Non-Af 95, BUN/Creatinine Ratio 19.4, Glucose 94, Calcium 8.2 L, Total Bilirubin 0.40, AST 20, ALT 34, Alkaline Phosphatase 52, Total Protein 5.9 L, Albumin 3.2, Globulin 2.7, Albumin/Globulin Ratio 1.2 Current Medications Acetaminophen (Tylenol) 650 mg PO Q6H PRN PRN PRN Reason: Pain Score 1-10/Temp > 100.7 F Last Admin: 04/01/20 11:04 Dose: 650 mg Documented by: Al Hydroxide/Mg Hydroxide (Mylanta Ii) 30 ml PO Q6H PRN PRN PRN Reason: Gastric Burning Dexamethasone Sodium Phosphate (Decadron) 10 mg IV X1 ONE Stop: 04/01/20 16:31 Ketorolac Tromethamine (Toradol (Bkc)) 30 mg IV Q6 ANDREINA Stop: 04/06/20 19:01 Nicotine (Nicoderm Cq (Pbkc)) 21 mg TRANSDERM. DAILY ANDREINA Last Admin: 04/01/20 11:17 Dose: 21 mg Documented by: Nicotine Polacrilex (Rugby Nicotine (Bkc)) 2 mg PO Q2H PRN PRN PRN Reason: Nicotine Craving Nitroglycerin (Nitrostat) 0.4 mg SUBLINGUAL Q5M PRN PRN Reason: CARDIAC/CHEST PAIN Last Admin: 04/01/20 15:51 Dose: 0.4 mg Documented by: Ondansetron HCl (Zofran) 4 mg IV Q6H PRN PRN PRN Reason: NAUSEA/VOMITING Last Admin: 04/01/20 14:32 Dose: 4 mg Documented by: Pantoprazole Sodium (Protonix) 40 mg PO DAILY ANDREINA Last Admin: 04/01/20 13:08 Dose: 40 mg Documented by: Sodium Chloride () 10 - 40 ml IV UD PRN PRN Reason: SALINE FLUSH Last Admin: 04/01/20 14:35 Dose: 20 ml Documented by: Addendum: Dr. Ray I personally examined the patient and reviewed the chart. I agree with the above. 40-year-old female with no significant past medical history presents with chest pain. She has had multiple presentations to the hospital with pain complaints and previous admissions. She has had a cholecystectomy and appendectomy, hysterectomy and a right liver ablation for hepatic adenoma. Stress test was unremarkable however after the stress test she started complaining of nausea and dizziness and a headache. Her Dilaudid was disco ntinued and a CT scan is ordered and pending. If the CT scan is unremarkable then she is likely okay for discharge home. OBSV E&M: 07030 Subsequent observation care L2
--- NOTE | 2020-04-01 15:50 | EKG12_ITS ---
Test Reason : CP Blood Pressure : / mmHG Vent. Rate : 098 BPM Atrial Rate : 098 BPM P-R Int : 148 ms QRS Dur : 072 ms QT Int : 342 ms P-R-T Axes : 057 053 057 degrees QTc Int : 436 ms Normal sinus rhythm Normal ECG When compared with ECG of 01-APR-2020 16:03, MANUAL COMPARISON REQUIRED, DATA IS UNCONFIRMED Confirmed by RAND ARTIS ([id number]), book or script editor LAZARO BROWN ([id number]) on 04/08/2020 11:26:20 AM Referred By: Confirmed By:RAND ARTIS
[2020-04-01] MEDS: Nitroglycerin (INPATIENT USE) 0.4 MG TAB.SUBL SUBLINGUAL (15:51)
[2020-04-01] MEDS: dexAMETHasone 10 MG/ML Vial IV (16:45)
[2020-04-02] VITALS (8 sets, daily range): BP systolic 133–159; BP diastolic 88–95; PULSE 71–98; RESP 14–18; TEMP 36.6–36.9; O2SAT 96–100
[2020-04-02] MEDS: Nitroglycerin (INPATIENT USE) 0.4 MG TAB.SUBL SUBLINGUAL ×3 (00:17→00:29)
--- NOTE | 2020-04-02 00:18 | EKG12_ITS ---
Test Reason : CP Blood Pressure : / mmHG Vent. Rate : 088 BPM Atrial Rate : 088 BPM P-R Int : 154 ms QRS Dur : 076 ms QT Int : 350 ms P-R-T Axes : 062 058 056 degrees QTc Int : 423 ms Normal sinus rhythm Normal ECG When compared with ECG of 01-APR-2020 05:50, MANUAL COMPARISON REQUIRED, DATA IS UNCONFIRMED Confirmed by RAND ARTIS ([id number]), news copy editor LAZARO BROWN ([id number]) on 04/08/2020 11:25:54 AM Referred By: MELISSA Confirmed By:RAND ARTIS
[2020-04-02] MEDS: Ketorolac 30 MG/ML Syringe IV (05:13)
[2020-04-02] MEDS: 0.9% Saline Lock 10 ML Syringe IV ×3 (05:16→12:21)
[2020-04-02] MEDS: Acetaminophen 325 MG Tablet 650 MG PO (05:18)
[2020-04-02] MEDS: Ondansetron 4 MG/2 ML Vial IV ×2 (05:20→12:20)
[2020-04-02] MEDS: Pantoprazole Sodium 40 MG Tablet PO (08:54)
--- NOTE | 2020-04-02 09:25 | CT_ITS ---
STUDY: CTA CHEST REASON FOR EXAM: Female, 40 years old. CHEST PAIN WITH SHORTNESS OF BREATH RADIATION DOSAGE (If Supplied By Facility): CTDIvol = ( 14.51 ) mGy, DLP = ( 425.23 ) mGycm TECHNIQUE: The examination was performed with the intravenous administration of 100ML ISOVUE 370. Post-processing of the angiographic images was performed, with multiplanar reformation and 3D reconstruction. Individualized dose optimization techniques were used for this CT. COMPARISON: 01/16/2019 FINDINGS: Normal enhancement of the main pulmonary artery and right and left pulmonary arteries. Normal enhancement of the bilateral peripheral pulmonary arteries. There is no demonstrated pulmonary embolism. Normal thoracic aorta and visualized great vessels. There is no demonstrated aortic dissection. Normal heart and pericardium. Normal mediastinum. Normal hilar regions. Normal visualized trachea and bronchi. The lungs are well expanded. Normal pulmonary parenchyma. Normal pleura. Normal chest wall structures. Normal osseous structures. Normal visualized upper abdomen. CT/CTA Chest W/WO Contrast IMPRESSION: Normal CTA chest examination, without a demonstrated pulmonary embolism or arterial dissection. Electronically Signed: Juan Gama MD at 10:04 EDT Tel , Service support ,
--- NOTE | 2020-04-02 11:07 | PCM.DC ---
- Discharge Diagnoses Current Active Problems: Current Active and Chronic Problems Chest pain (Acute) You will use the following diet at home:: No restrictions Discharge Activity: Return to Normal Activity Call your doctor if you observe: Shortness of breath, Dizziness, Fainting spells, Chest pain Allergies/Adverse Reactions: Allergies latex Allergy (Mild, Verified 03/31/20 15:12) IRRIATION, OR IF SHE INGEST SHE VOMITS. morphine Allergy (Verified 03/31/20 15:12) Itching Penicillins Allergy (Verified 03/31/20 15:12) Shortness of breath acetaminophen [From Darvocet-N] Adverse Reaction (Verified 03/31/20 15:12) Nausea meperidine [From Demerol] Adverse Reaction (Verified 03/31/20 15:12) Nausea propoxyphene [From Darvocet-N] Adverse Reaction (Verified 03/31/20 15:12) Nausea varenicline [From Chantix] Adverse Reaction (Verified 03/31/20 15:12) Other Medications to take at Discharge Ibuprofen 600 - 800 mg PO DAILY PRN PRN 03/31/20 Ondansetron HCl [Zofran] 4 mg PO Q6H PRN PRN #30 tab 04/01/20 The following prescriptions were given: Ondansetron HCl [Zofran] 4 mg PO Q6H PRN PRN #30 tab PRN Reason: Nausea Transmission Status: Received by [id number] Primary Care Physician: Nicky Mccall MD [Primary Care Provider] - Please follow up with your Primary Care Physician in: 1 Week Test Results: Test results from this visit will be discussed in further detail at your follow-up appointment, if applicable. Proposed Discharge Date: 04/02/20
--- NOTE | 2020-04-02 11:09 | PCM.DC.SUM ---
<Lindsay Rodriguez - Last Filed: 04/02/20 11:18> Discharge Date and Diagnosis Date of Admission: 03/31/20 Date of Discharge: 04/02/20 - Primary Discharge Diagnosis Acute Problems: Active Problems 1. Atypical chest pain, ACS ruled out 2. Intractable Migraine 3. GERD 4. Tobacco dependence 5. Obesity 6. Hepatic adenoma-resected at [facility]. - Secondary Discharge Diagnosis Chronic Problems: Chronic Problems Hepatic adenoma (Chronic) GERD (gastroesophageal reflux disease) (Chronic) Tobacco use (Chronic) Obesity (BMI 30.0-34.9) (Chronic) Status post appendectomy (Chronic) Status post hysterectomy (Chronic) Status post cholecystectomy (Chronic) Hospital Course and Treatment Imaging Results: Diagnostic Data Chest X-Ray 03/31/20 15:25 IMPRESSION: Normal x-ray examination of the chest. Electronically Signed: Felix Davis MD at 15:38 EDT , Service support , Brain CT 04/01/20 15:10 IMPRESSION: Normal unenhanced CT scan of the brain. Electronically Signed: Mehdi Lerma MD at 16:38 EDT , Service support , Chest CTA 04/02/20 09:25 IMPRESSION: Normal CTA chest examination, without a demonstrated pulmonary embolism or arterial dissection. Electronically Signed: Juan Gama MD at 10:04 EDT Tel , Service support , Operations: None Procedures: Stress test Summary of Care Provided: The patient is a 40 year old F admitted 03/31/2020 due to chest pain. 1. Atypical chest pain, ACS ruled out-EKG without ST-T changes. Troponin negative. Patient underwent nuclear stress test which was negative for ischemia. LVEF 69%. Patient had prior heart cath in 2017 which showed normal coronary arteries. Due to persistent intermittent chest pain with shortness of breath, obtained a CTA which was unremarkable. Suspect symptoms are secondary to anxiety. Follow-up with primary care physician in 1 week. 2. Intractable headache with nausea-patient reports a history of migraines however states this headache feels different from her prior migraines. Given patient report of severity of headache, brain CT ordered.brain CT unremarkable. Discontinued IV Dilaudid as this may be contributing to rebound headache. Patient previously requesting Dilaudid every 2 hours. Patient was given dexamethasone 10 mg IV x1. PRN Toradol. Patient reports headache somewhat improved. Will give Imitrex x1 prior to discharge. PCP follow-up as noted above. 3. GERD-continue PPI. 4. Tobacco dependence-encouraged cessation. 5. Obesity-encouraged diet lifestyle modifications. 6. Hepatic adenoma-resected at [facility]. Continue outpatient follow-up. General: Alert, Oriented x3, Cooperative HEENT: Atraumatic, PERRLA, EOMI, Normocephalic Neck: Supple, No JVD, Negative Carotid Bruits Lungs: Clear to auscultation, Normal air movement Cardiovascular: Regular rate, No murmurs Abdomen: Bowel Sounds Present, Soft, Non Tender Extremities: No clubbing, No cyanosis, No edema, Capillary Refill Less than 3 Seconds Skin: No rashes, No breakdown Musculoskeletal: No Tenderness to Palpation of Joints or Extremities Neurological: Cranial nerves II-XII grossly intact, Neuro grossly intact Psych/Mental Status: Normal Affect, Appropriate Patient seen and examined prior to discharge. Physical assessment as noted above. Patient is stable for discharge with follow up recommendations as noted above. This patient was seen by JOHNNY Rolle under the supervision of Dr. Ray. - Physical Exam Vitals/I&O's: Vital Signs Temp Pulse Resp BP Pulse Ox 98.5 F 86 14 158/93 H 97 04/02/20 08:47 04/02/20 08:47 04/02/20 08:47 04/02/20 08:47 04/02/20 08:47 Oxygen Flow Rate (L/min) 2 Oxygen Delivery Method Room Air Weight: 193 lb 5.526 oz Body Mass Index (BMI) 32.9 Finger Stick Blood Glucose 93 Intake and Output for Last 24 Hours 03/31/20 04/01/20 04/02/20 23:59 23:59 23:59 Intake Total 110 / 350 2276.67 / 2276.67 100 / 100 Balance 110 / 350 2276.67 / 2276.67 100 / 100 Laboratory Results 04/02/20 01:55: Troponin I < 0.015 04/02/20 04:46: Troponin I < 0.015 04/02/20 07:46: Troponin I < 0.015 Current Medications Acetaminophen (Tylenol) 650 mg PO Q6H PRN PRN PRN Reason: Pain Score 1-10/Temp > 100.7 F Last Admin: 04/02/20 05:18 Dose: 650 mg Documented by: Al Hydroxide/Mg Hydroxide (Mylanta Ii) 30 ml PO Q6H PRN PRN PRN Reason: Gastric Burning Ketorolac Tromethamine (Toradol (Bkc)) 30 mg IV Q6 ANDREINA Stop: 04/06/20 19:01 Last Admin: 04/02/20 05:13 Dose: 30 mg Documented by: Nicotine (Nicoderm Cq (Pbkc)) 21 mg TRANSDERM. DAILY [facility] Last Admin: 04/02/20 08:54 Dose: 21 mg Documented by: Nicotine Polacrilex (Rugby Nicotine (Bkc)) 2 mg PO Q2H PRN PRN PRN Reason: Nicotine Craving Nitroglycerin (Nitrostat) 0.4 mg SUBLINGUAL Q5M PRN PRN Reason: CARDIAC/CHEST PAIN Last Admin: 04/02/20 00:29 Dose: 0.4 mg Documented by: Ondansetron HCl (Zofran) 4 mg IV Q6H PRN PRN PRN Reason: NAUSEA/VOMITING Last Admin: 04/02/20 05:20 Dose: 4 mg Documented by: Pantoprazole Sodium (Protonix) 40 mg PO DAILY [facility] Last Admin: 04/02/20 08:54 Dose: 40 mg Documented by: Sodium Chloride () 10 - 40 ml IV UD PRN PRN Reason: SALINE FLUSH Last Admin: 04/02/20 05:21 Dose: 10 ml Documented by: Sumatriptan Succinate (Imitrex) 6 mg SC X1 ONE Stop: 04/02/20 11:03 Discharge Diet: No Restrictions Discharge Activity: Return to Normal Activity Call your doctor if you observe: Shortness of breath, Dizziness, Fainting spells, Chest pain Home Medications: Medications to take at Discharge Ibuprofen 600 - 800 mg PO DAILY PRN PRN 03/31/20 Ondansetron HCl [Zofran] 4 mg PO Q6H PRN PRN #30 tab 04/01/20 Following Prescrptions Were Given to Patient: Ondansetron HCl [Zofran] 4 mg PO Q6H PRN PRN #30 tab PRN Reason: Nausea Transmission Status: Received by [id number] Primary Care Physician: Nicky Mccall MD [Primary Care Provider] - Please follow up with your Primary Care Physician in: 1 Week Disposition: Home Minutes spent on discharge:: 35 Patient Condition:: Stable Medical Necessity - Tobacco Use Smoking Status: Current every day smoker Tobacco Use: Cigarettes Meaningful Use Info Meaningful Use Diagnoses (Choose all that apply): None applicable <Conrado Ray F - Last Filed: 04/02/20 12:35> Discharge Date and Diagnosis - Secondary Discharge Diagnosis Chronic Problems: Chronic Problems Hepatic adenoma (Chronic) GERD (gastroesophageal reflux disease) (Chronic) Tobacco use (Chronic) Obesity (BMI 30.0-34.9) (Chronic) Status post appendectomy (Chronic) Status post hysterectomy (Chronic) Status post cholecystectomy (Chronic) Hospital Course and Treatment Imaging Results: 04/02/20 09:25 CTA Chest W/WO Contrast [CT] Stat Summary of Care Provided: The patient is a 40 year old F [] - Physical Exam Vitals/I&O's: Vital Signs Temp Pulse Resp BP Pulse Ox 98.5 F 86 14 158/93 H 97 04/02/20 08:47 04/02/20 08:47 04/02/20 08:47 04/02/20 08:47 04/02/20 08:47 Oxygen Flow Rate (L/min) 2 Oxygen Delivery Method Room Air Weight: 193 lb 5.526 oz Body Mass Index (BMI) 32.9 Finger Stick Blood Glucose 93 Intake and Output for Last 24 Hours 03/31/20 04/01/20 04/02/20 23:59 23:59 23:59 Intake Total 110 / 350 2276.67 / 2276.67 100 / 100 Balance 110 / 350 2276.67 / 2276.67 100 / 100 Laboratory Results 04/02/20 01:55: Troponin I < 0.015 04/02/20 04:46: Troponin I < 0.015 04/02/20 07:46: Troponin I < 0.015 Current Medications Acetaminophen (Tylenol) 650 mg PO Q6H PRN PRN PRN Reason: Pain Score 1-10/Temp > 100.7 F Last Admin: 04/02/20 05:18 Dose: 650 mg Documented by: Al Hydroxide/Mg Hydroxide (Mylanta Ii) 30 ml PO Q6H PRN PRN PRN Reason: Gastric Burning Ketorolac Tromethamine (Toradol (Bkc)) 30 mg IV Q6 ANDREINA Stop: 04/06/20 19:01 Last Admin: 04/02/20 05:13 Dose: 30 mg Documented by: Nicotine (Nicoderm Cq (Pbkc)) 21 mg TRANSDERM. DAILY ANDREINA Last Admin: 04/02/20 08:54 Dose: 21 mg Documented by: Nicotine Polacrilex (Rugby Nicotine (Bkc)) 2 mg PO Q2H PRN PRN PRN Reason: Nicotine Craving Nitroglycerin (Nitrostat) 0.4 mg SUBLINGUAL Q5M PRN PRN Reason: CARDIAC/CHEST PAIN Last Admin: 04/02/20 00:29 Dose: 0.4 mg Documented by: Ondansetron HCl (Zofran) 4 mg IV Q6H PRN PRN PRN Reason: NAUSEA/VOMITING Last Admin: 04/02/20 12:20 Dose: 4 mg Documented by: Pantoprazole Sodium (Protonix) 40 mg PO DAILY ANDREINA Last Admin: 04/02/20 08:54 Dose: 40 mg Documented by: Sodium Chloride () 10 - 40 ml IV UD PRN PRN Reason: SALINE FLUSH Last Admin: 04/02/20 12:21 Dose: 10 ml Documented by: Addendum: Dr. Ray I personally examined the patient and reviewed the chart. I agree with the above. 40-year-old female with no significant past medical history presents with chest pain. She has had multiple presentations to the hospital with pain complaints and previous admissions. She has had a cholecystectomy and appendectomy, hysterectomy and a right liver ablation for hepatic adenoma. Stress test was unremarkable however after the stress test she started complaining of nausea and dizziness and a headache. Her Dilaudid was discontinued and a CT scan was ordered which was normal. Her headache has improved with the cessation of Dilaudid and as needed Toradol as well as a dose of dexamethasone. We will give her a dose of Imitrex and I discussed with her the plan for discharge. She understands the risks and benefits of going home and would like to go home. On the morning of discharge she also had chest pain and had a troponin series drawn which was normal, and a CT of the chest which was unremarkable. She is cleared for discharge home today with PCP follow-up. OBSV E&M: [id number] Observation care discharge
--- NOTE | 2020-04-02 11:34 | PHA.DC.MR ---
Pharmacy Service has performed discharge medication reconciliation for this patient. The patient's discharge medication list was reviewed for discrepancies and discrepancies were resolved. Home Medications Ibuprofen 600 - 800 mg PO DAILY PRN PRN 03/31/20 Ondansetron HCl [Zofran] 4 mg PO Q6H PRN PRN #30 tab 04/01/20
[2020-04-02] MEDS: SUMAtriptan 6 MG/0.5 ML Vial SC (12:01)
== END 2020-04-02 11:08 | disposition home or self-care (01) ==
LOC: ED 17:57 → PCU 18:08
PROVIDERS: Hospitalist; Admitting Provider Internal Medicine; Emergency Provider Emergency Medicine; PCP Internal Medicine; Visit Provider Family Medicine
DX: R07.89 Other chest pain (principal); R11.0 Nausea; R06.02 Shortness of breath; K21.9 Gastro-esophageal reflux disease without esophagitis; E66.9 Obesity, unspecified; F17.210 Nicotine dependence, cigarettes, uncomplicated; D13.4 Benign neoplasm of liver; G43.919 Migraine, unspecified, intractable, without status migrainosus; Z68.32 Body mass index [BMI] 32.0-32.9, adult
CPT/HCPCS: 36415; 70450; 71045; 71275; 78452; 80048; 80053; 84484; 85025; 85379; 93005; 93017; 96361; 96365; 96372; 96375; 96376; 99218; 99285; 99406; A9500; J7030; Q9967; A4216; G0378; J2405; J2785; J3030

== ENCOUNTER 2020-05-18 19:31 | Emergency (ER) | payer BC, SELFPAY ==
[2020-03-31 18:28] VITALS: BMI 32.9
[2020-05-18 19:33] VITALS: BP 151/121; PULSE 122; RESP 18; TEMP 36.7; O2SAT 100; BMI 30.7
[2020-05-18 19:44] VITALS: BP 160/105; PULSE 108; RESP 17; O2SAT 95
--- NOTE | 2020-05-18 19:55 | EKG12_ITS ---
Test Reason : CP Blood Pressure : / mmHG Vent. Rate : 104 BPM Atrial Rate : 104 BPM P-R Int : 134 ms QRS Dur : 068 ms QT Int : 336 ms P-R-T Axes : 064 067 056 degrees QTc Int : 441 ms Poor data quality, interpretation may be adversely affected Sinus tachycardia with Fusion complexes Otherwise normal ECG Confirmed by MELISSA CHAVES, KELLY ([id number]), video effects editor LAZARO BROWN ([id number]) on 05/19/2020 9:45:12 AM Referred By: HEIKE Confirmed By:KELLY TORRES MD
[2020-05-18 20:01] VITALS: O2SAT 99
--- NOTE | 2020-05-18 20:02 | ED.VISSUMM ---
- ER Visit Summary Date of Service: 05/18/20 Chief Complaint: Chest pain [] History of Present Illness: The patient is a 40 F [resents to the emergency department complaint of chest pain that started around 4 PM. Patient describes a intermittent sharp stabbing pain in the left side of her chest with some squeezing noted. She states that happens very frequently but only lasts a few seconds at a time. She is had some nausea with it and some mild shortness of breath. Patient also complains of some ringing in her ears and head that she has had off and on for several days. She does have history of hypertension. Patient states that she was admitted in March for similar type complaints and she had a heart work-up including including a stress test which was unremarkable. Patient states that she had a heart catheterization 2016 that did not show anything acute and required no intervention. Patient has history of hypertension, GERD, and obesity. Denies recent travel or surgery. She does not know her family history as she is adopted.] Physical Examination: [HEENT-PERRLA, EOMI. Cranial nerves II through XII grossly intact. TMs clear. Mucous membranes moist. No adenopathy. Cardiovascular-regular rate and rhythm without murmur or ectopy Lungs-clear to auscultation, chest wall stable without crepitus or subcu emphysema Abdomen-normoactive bowel sounds, soft, nontender, no rebound or rigidity, no peritoneal signs. Extremities-intact ?4, normal range of motion, normal pulses, atraumatic] Test Results: [EKG obtained on arrival shows sinus rhythm with a ventricular rate of 104 bpm with no acute ST segment changes noted.] CBC with differential was normal. Chemistries normal. Troponin less than 0.15. D-dimer normal. Chest x-ray showed nothing acute. Emergency Department Course and Treatment: Patient was given a GI cocktail. [] Treatment Plan: [At this point etiology of her chest pain is unclear. She had a normal heart cath in 2016 and a normal stress test in March of this year. I do not feel her chest pain is cardiac in nature. Will be given a prescription for few [place] for pain.] Disposition: [Discharged home in stable condition.] Impression: [Chest pain-etiology uncertain] This note was generated with [employer] software. It may contain incorrect words, spelling, and punctuation that were not noted in review of the chart prior to signing ED Disposition - Plan for ED Patient: Referrals: Nicky Mccall MD [Primary Care Provider] -
[2020-05-18] MEDS: 0.9% Normal Saline 1,000 ML 150 ML IV (20:15)
[2020-05-18] MEDS: Aspirin 81 MG TAB.CHEW 324 MG PO (20:16)
[2020-05-18 20:17] LABS: Absolute Lymphocyte Count 2.63 X10^3/uL (0.83-4.51); Absolute Neutrophil Count 7.3 X10^3/uL (2.0-7.7); Basophil# 0.07 X10^3/uL; Basophil% 0.6 % (0-1); Eosinophil# 0.12 X10^3/uL; Eosinophils% 1.1 % (0-5); Hematocrit 41.1 % (37-47); Hemoglobin 13.8 g/dL (12.0-15.0); Lymphocyte # 2.63 X10^3/ul (4.0); Lymphocyte % 23.9 % (19-41); Mean Corp Hgb Conc 33.6 g/dL (32-36); Mean Corpuscular Hgb 32.8 pg (27.0-32.0); Mean Corpuscular Volume 97.6 fL (81-99); Mean Platelet Vol. 10.3 fl (6.2-12.0); Monocyte# 0.79 X10^3/uL; Monocyte% 7.2 % (0-10); NRBC Flagged by Analyzer 0 % (0-5); Neutrophil # 7.26 X10^3/uL (2.7-7.7); Neutrophil % 66.1 % (47-70); Platelet Count 244 K/mm3 (150-450); RBC Distribution Width CV 12.3 % (11.6-14.6); RBC Distribution Width SD 44.1 fl (35.1-43.9); Red Blood Count 4.21 M/mm3 (4.2-5.4)
--- NOTE | 2020-05-18 20:20 | RAD_ITS ---
STUDY: X-RAY CHEST REASON FOR EXAM: Female, 40 years old. CHEST PAIN AND PRESSURE, ANXIETY. SOB TECHNIQUE: Frontal view of the chest COMPARISON: Apr 02 2020 FINDINGS: The lungs are clear and expanded. There is no demonstrated pleural abnormality. Normal size heart. Normal mediastinum and simone. Normal visualized pulmonary arteries. Normal visualized aortic arch and descending thoracic aorta. Normal visualized thoracic spine. Normal visualized ribs, clavicles, and shoulders. There is no demonstrated abnormality of the visualized soft tissue structures of the upper abdomen. RAD/Chest 1 View (Portable) IMPRESSION: Normal x-ray examination of the chest. Electronically Signed: Milton Gilbert, at 20:49 EDT Tel , Service support ,
[2020-05-18 20:28] LABS: D-Dimer Quantitative (DVT/PE) 0.28 FEU/ug/m (0.27-0.49)
[2020-05-18 20:35] LABS: Anion Gap 10 (5-15); BUN 11 mg/dL (7-18); Calcium,Total 9.9 mg/dL (8.5-10.1); Chloride 106 mmol/L (98-107); Creatinine, Serum 0.91 mg/dL (0.55-1.02); EST Glomerular Filtration Rate 73 mL/min (>60); Est Glom Filt Rate - Afr Amer 88 mL/min (>60); Estimated Creatinine Clearance 71.67 ml/min; Glucose 78 mg/dL (74-106); Potassium 3.8 mmol/L (3.5-5.1); Sodium Level 137 mmol/L (136-145)
[2020-05-18 20:48] VITALS: BP 143/91; PULSE 100; RESP 22; O2SAT 94
--- NOTE | 2020-05-18 20:54 | ED.DEP ---
ED Disposition - Plan for ED Patient: Instructions: ED Chest Pain Atypical Unkn Cause Prescriptions: Hydrocodone Bitart/Apap 5-325 [Transfer 5MG-325MG] 1 tab PO Q4H PRN PRN 2 Days #10 tab PRN Reason: Pain Prescription Printed Referrals: Nicky Mccall MD [Primary Care Provider] - 3-5 Days
[2020-05-18] MEDS: Mag Hydrox/Al Hydrox/Simeth 30 ML UDC PO (20:59)
[2020-05-18 21:00] VITALS: BP 146/88; PULSE 102; RESP 20; O2SAT 99
== END 2020-05-18 21:06 | disposition home or self-care (01) ==
PROVIDERS: Emergency Provider Emergency Medicine; PCP Internal Medicine
DX: R07.9 Chest pain, unspecified (principal); I10 Essential (primary) hypertension; E66.9 Obesity, unspecified; Z68.30 Body mass index [BMI] 30.0-30.9, adult; Z72.0 Tobacco use
CPT/HCPCS: 71045; 80048; 84484; 85025; 85379; 93005; 96360; 99285; J7030

== ENCOUNTER 2020-07-03 14:23 | Emergency (ER) | payer BC, SELFPAY ==
[2020-07-03 14:25] VITALS: BP 126/89; PULSE 112; RESP 24; TEMP 37.2; O2SAT 98; BMI 30.9
--- NOTE | 2020-07-03 14:39 | EKG12_ITS ---
Test Reason : TACHY/CP Blood Pressure : / mmHG Vent. Rate : 111 BPM Atrial Rate : 111 BPM P-R Int : 138 ms QRS Dur : 074 ms QT Int : 306 ms P-R-T Axes : 065 069 062 degrees QTc Int : 416 ms Sinus tachycardia Otherwise normal ECG Confirmed by ARAM CHAVES, NADIA ([id number]), industrial editor LAZARO BROWN ([id number]) on 07/10/2020 12:49:30 P M Referred By: CARLOS ALBERTO/NIKKO Confirmed By:JOSE CHIU MD
--- NOTE | 2020-07-03 14:44 | ED.VIS.GEN ---
History of Present Illness Chief Complaint: Chest Pain Detail of Chief Complaint: Heart racing Informant: Patient Onset: Today Current Severity: Mild Maximum Severity: Moderate Narrative: Patient presents secondary to racing heart. She states that she has had problems with intermittent chest pain and palpitations for the last several months. She had a stress test here in March that was unremarkable. Patient just took off a Holter monitor to mail in today to be evaluated. She was told it could be up to 2 weeks until she has results from this. Around 1230 this afternoon she started feeling her heart was racing. She tried to lay down and do deep breathing without improvement in her symptoms. She does describe some chest tightness. She does report one history of blood clot after having a cardiac cath in 2017. - Past Medical History (1) Hypertension Status: Chronic (2) High cholesterol Status: Chronic (3) Anxiety and depression Status: Chronic (4) GERD (gastroesophageal reflux disease) Status: Chronic Past Medical History - Allergies and Home Meds Allergies/Adverse Reactions: Allergies latex Allergy (Mild, Verified 07/03/20 14:24) IRRIATION, OR IF SHE INGEST SHE VOMITS. morphine Allergy (Verified 07/03/20 14:24) Itching Penicillins Allergy (Verified 07/03/20 14:24) Shortness of breath acetaminophen [From Darvocet-N] Adverse Reaction (Verified 07/03/20 14:24) Nausea meperidine [From Demerol] Adverse Reaction (Verified 07/03/20 14:24) Nausea propoxyphene [From Darvocet-N] Adverse Reaction (Verified 07/03/20 14:24) Nausea varenicline [From Chantix] Adverse Reaction (Verified 07/03/20 14:24) Other Primary Care Physician: Nicky Mccall MD [Primary Care Provider] - Past Medical History: None Surgical History: appendectomy, cholecystectomy, hysterectomy, - - Appendectomy, cholecystectomy, hysterectomy, bilateral wrist cyst removal, right carpal tunnel surgery, right liver lobe adenoma ablation in addition to left upper extremity lipoma removal. Smoking Status: Current every day smoker - Family History Paternal Family History: Reports: - - Patient is adopted and states she does not know any of her maternal or paternal family history. Maternal Family History: Reports: - - Patient is adopted and states she does not know any of her maternal or paternal family history. Review of Systems General: Denies: Chills, Fever Eyes: Denies: Visual changes - bilaterally ENT: Denies: Bilateral ear pain Cardiovascular: Reports: Chest pain, Palpitations Respiratory: Reports: Dyspnea Gastrointestinal: Denies: Abdominal pain Musculoskeletal: Denies: Swelling, Extremity Pain Skin: Denies: Rash Neurological: Denies: Headache Hematologic: Denies: Easy bruising, Easy bleeding Allergy: Denies: Uticaria Physical Exam Vital Signs/Narrative: Vital Signs Temp Pulse Resp BP Pulse Ox 07/03/20 14:25 99 F 112 H 24 H 126/89 H 98 Inital Vital Signs reviewed: Yes General: Well nourished, Well developed Head: Normocephalic ENT: Moist mucous membranes Neck: Supple Cardiovascular: Tachycardia Respiratory: No distress, CTA bilaterally, Chest tenderness - Mild chest wall tenderness. No crepitus. Abdomen: Soft, Nontender Back: Nontender Extremities: Nontender Skin: Normal color Neurological: Alert, Oriented x3 Psychological: Normal affect Diagnostic/Tx/Re-eval Impressions Chest X-Ray 07/03/20 15:05 IMPRESSION: Normal x-ray examination of the chest. Electronically Signed: Bora Teofilo, at 15:23 EDT , Service support , 07/03/20 15:05 Chest 1 View (Portable) [RAD] Stat Laboratory Results 07/03/20 07/03/20 07/03/20 15:00 15:00 15:00 WBC 11.5 H RBC 4.12 L Hgb 13.5 Hct 40.7 MCV 98.8 MCH 32.8 H MCHC 33.2 RDW Std Deviation 43.1 RDW Coeff of [place] 11.9 Plt Count 249 MPV 10.3 Immature Gran % (Auto) 1.000 H Neut % (Auto) 72.6 H Lymph % (Auto) 17.6 L [place] % (Auto) 6.9 Eos % (Auto) 1.2 Baso % (Auto) 0.7 Absolute Neuts (auto) 8.3 H Absolute Lymphs (auto) 2.02 Nucleated RBC % 0 ESR 16 D-Dimer Quant (PE/DVT) <= 0.27 Sodium 136 Potassium 3.7 Chloride 104 Carbon Dioxide 25.0 Anion Gap 7 BUN 14 Creatinine 0.75 Estim Creat Clear Calc 86.96 Est GFR (MDRD) Af Amer 111 Est GFR (MDRD) Non-Af 92 BUN/Creatinine Ratio 18.7 Glucose 103 Calcium 9.8 Troponin I < 0.015 C-React Prot Ext Range 14.70 H TSH 2.10 - EKG Initial EKG Interpretation: Sinus Tachycardia - Sinus tach at 111 with no acute ischemia. - Medical Decision Making Patient was given IV fluids here. Heart rate improved into the 80s. She did have an episode of dizziness with vomiting. She states that it felt like she was spinning. She was given Zofran followed by dose of Antivert for this. At this time work-up is grossly unremarkable. I did encourage her to follow with her doctor to get the results of her Holter monitor as soon as possible. She is encouraged to return for worsening symptoms or concerns. She be given prescriptions for Zofran and Antivert. ED Disposition - Plan for ED Patient: Disposition: Home or Assisted Living Diagnosis: Palpitations, Dizziness Instructions: ED Palpitations, ED Dizziness [facility] Prescriptions: Meclizine HCl [Antivert] 25 mg PO 4X/DAY PRN PRN #20 tab PRN Reason: Dizziness Transmission Status: Pending to [id number] Ondansetron [Zofran Odt] 4 mg PO Q8H PRN PRN #10 tab PRN Reason: Nausea Transmission Status: Pending to [id number] Referrals: Nicky Mccall MD [Primary Care Provider] - As soon as possible
[2020-07-03] MEDS: Aspirin 81 MG TAB.CHEW 324 MG PO (15:04)
[2020-07-03] MEDS: 0.9% Normal Saline 1,000 ML 150 ML IV (15:04)
--- NOTE | 2020-07-03 15:05 | RAD_ITS ---
STUDY: X-RAY CHEST REASON FOR EXAM: Female, 40 years old. Chest pain, dizziness, tachycardia TECHNIQUE: Single AP portable view of the chest. COMPARISON: Comparison is made with prior study 05/18/2020. FINDINGS: EKG electrodes are seen. The lungs are clear and expanded. There is no demonstrated pleural abnormality. Normal size heart. Normal mediastinum and simone. Normal visualized pulmonary arteries. Normal visualized aortic arch and descending thoracic aorta. Normal visualized thoracic spine. Normal visualized ribs, clavicles, and shoulders. There is no demonstrated abnormality of the visualized soft tissue structures of the upper abdomen. RAD/Chest 1 View (Portable) IMPRESSION: Normal x-ray examination of the chest. Electronically Signed: Bora Red, at 15:23 EDT , Service support ,
[2020-07-03 15:20] LABS: Absolute Lymphocyte Count 2.02 X10^3/uL (0.83-4.51); Absolute Neutrophil Count 8.3 X10^3/uL (2.0-7.7); Basophil# 0.08 X10^3/uL; Basophil% 0.7 % (0-1); Eosinophil# 0.14 X10^3/uL; Eosinophils% 1.2 % (0-5); Hematocrit 40.7 % (37-47); Hemoglobin 13.5 g/dL (12.0-15.0); Lymphocyte # 2.02 X10^3/ul (4.0); Lymphocyte % 17.6 % (19-41); Mean Corp Hgb Conc 33.2 g/dL (32-36); Mean Corpuscular Hgb 32.8 pg (27.0-32.0); Mean Corpuscular Volume 98.8 fL (81-99); Mean Platelet Vol. 10.3 fl (6.2-12.0); Monocyte# 0.79 X10^3/uL; Monocyte% 6.9 % (0-10); NRBC Flagged by Analyzer 0 % (0-5); Neutrophil # 8.34 X10^3/uL (2.7-7.7); Neutrophil % 72.6 % (47-70); Platelet Count 249 K/mm3 (150-450); RBC Distribution Width CV 11.9 % (11.6-14.6); RBC Distribution Width SD 43.1 fl (35.1-43.9); Red Blood Count 4.12 M/mm3 (4.2-5.4); White Blood Count 11.5 K/mm3 (4.4-11.0)
[2020-07-03 15:32] LABS: Erythrocyte Sedimentation Rate 16 mm/hr (0-20)
[2020-07-03 15:46] VITALS: BP 100/72; PULSE 98; RESP 19; O2SAT 99
[2020-07-03 15:50] LABS: Anion Gap 7 (5-15); BUN 14 mg/dL (7-18); BUN/Creat Ratio 18.7 RATIO (10-20); Calcium,Total 9.8 mg/dL (8.5-10.1); Chloride 104 mmol/L (98-107); Creatinine, Serum 0.75 mg/dL (0.55-1.02); EST Glomerular Filtration Rate 92 mL/min (>60); Est Glom Filt Rate - Afr Amer 111 mL/min (>60); Estimated Creatinine Clearance 86.96 ml/min; Glucose 103 mg/dL (74-106); Potassium 3.7 mmol/L (3.5-5.1); Sodium Level 136 mmol/L (136-145)
[2020-07-03 15:59] LABS: D-Dimer Quantitative (DVT/PE) <= 0.27 FEU/ug/m (0.27-0.49)
[2020-07-03] MEDS: Ondansetron 4 MG/2 ML Vial IV (16:24)
[2020-07-03 16:32] VITALS: BP 119/91; PULSE 97; RESP 14; O2SAT 97
[2020-07-03] MEDS: Meclizine HCl 25 MG Tablet PO (17:31)
[2020-07-03 18:02] VITALS: BP 128/87; PULSE 72; RESP 18; O2SAT 100
--- NOTE | 2020-07-03 18:04 | ED.RN ---
REVIEWED D/C INSTRUCTIONS, FOLLOW UP CARE, PRESCRIPTIONS, AND S/S THAT WOULD WARRANT A RETURN TO THE ED WITH PT. PT VERBALIZED AN UNDERSTANDING AND DENIES FURTHER QUESTIONS FOR THIS RN. PT SKIN P/W/D, RESP EVEN AND UNLABORED, PT A&O X 3, NO DISTRESS NOTED. PT AMBULATED OUT OF ED, GAIT STEADY.
== END 2020-07-03 18:05 | disposition home or self-care (01) ==
PROVIDERS: Emergency Provider Emergency Medicine; PCP Internal Medicine
DX: R00.2 Palpitations (principal); R42 Dizziness and giddiness; I10 Essential (primary) hypertension; E78.00 Pure hypercholesterolemia, unspecified; F32.9 Major depressive disorder, single episode, unspecified; F41.9 Anxiety disorder, unspecified; K21.9 Gastro-esophageal reflux disease without esophagitis; F17.200 Nicotine dependence, unspecified, uncomplicated
CPT/HCPCS: 71045; 80048; 84443; 84484; 85025; 85379; 85652; 86140; 93005; 96361; 96374; 99285; J7030; A4216; J2405

== ENCOUNTER → 2020-07-29 17:21 | Outpatient (CLI) | payer BC, SELFPAY ==
[2020-07-03 14:25] VITALS: BMI 30.9
== END ==
PROVIDERS: PCP Internal Medicine; Referring Provider Nurse Practitioner; Visit Provider Nurse Practitioner
DX: Z20.828 Contact with and (suspected) exposure to other viral communicable diseases (principal); R68.89 Other general symptoms and signs
CPT/HCPCS: 87635; 87804; C9803; U0003

== ENCOUNTER 2020-10-18 12:24 | Emergency (ER) | payer BC, SELFPAY ==
[2020-10-18 12:24] VITALS: BP 141/95; PULSE 99; RESP 16; TEMP 35.5; O2SAT 100; BMI 32.5
--- NOTE | 2020-10-18 12:39 | RAD_ITS ---
STUDY: X-RAY - LEFT WRIST REASON FOR EXAM: Female, 40 years old. HELPING DOG GET IN BED. PAIN TECHNIQUE: 3 view(s) of the wrist were obtained. COMPARISON: None. FINDINGS: Normal visualized distal radius and ulna. Normal radiocarpal articulation. Normal distal radioulnar articulation. Normal carpal bones. Normal carpal articulations. Normal carpometacarpal articulation of the thumb. Normal second through fifth carpometacarpal articulations. Normal visualized metacarpal bones. The soft tissue structures are unremarkable. RAD/Wrist min 3 Views IMPRESSION: Normal x-ray examination of the wrist. Electronically Signed: Lalo Sheehan MD at 13:22 EST Tel , Service support ,
--- NOTE | 2020-10-18 12:41 | ED.DCSUM_ITS ---
- ER Visit Summary Date of Service: 10/18/20 Chief Complaint: [Injury to the left wrist] History of Present Illness: The patient is a 40 F [presents to the emergency department with complaint of an injury to the left wrist that occurred last evening while getting her dog in the bed. Patient states that her dog weighs about 100 pounds and she was lifting the dog off when she felt a pop in her left wrist. Patient's had severe pain since that time. At times will have some numbness to the thumb and index finger. She took an anti-inflammatory and she states it seemed to help the swelling but she still has pain. Patient has history of hypertension and history of nonsustained V. tach.] Physical Examination: [HEENT-PERRLA, EOMI. Cranial nerves II through XII grossly intact. TMs clear. Mucous membranes moist. No adenopathy. Cardiovascular-regular rate and rhythm without murmur or ectopy Lungs-clear to auscultation, chest wall stable without crepitus or subcu emphysema Abdomen-normoactive bowel sounds, soft, nontender, no rebound or rigidity, no peritoneal signs. Extremities-intact ?4, normal range of motion, normal pulses. Left wrist- patient has tenderness over the distal radius as well as pain in the anatomical snuffbox. Patient has pain with flexion extension of the wrist. There is no significant swelling or obvious deformity. She is neurovascularly intact distally. Test Results: [Three-view x-rays of the left wrist obtained by myself as no acute fractures or dislocations. Radiology in agreement.] Emergency Department Course and Treatment: [She was given a Velcro wrist splint.] Treatment Plan: [She will be given a prescription for few [place]. She is advised to follow-up with her orthopedic surgeon within next [address] Melchor.] Disposition: [Discharged home in stable condition] Impression: [Left wrist sprain] This note was generated with [employer] dictation software. It may contain incorrect words, spelling, and punctuation that were not noted in review of the chart prior to signing ED Disposition - Plan for ED Patient: Referrals: Nicky Mccall MD [Primary Care Provider] -
--- NOTE | 2020-10-18 13:55 | DCINST.ED_ITS ---
ED Disposition - Plan for ED Patient: Instructions: ED Wrist Sprain Prescriptions: Hydrocodone Bitart/Apap 5-325 [[place] 5MG-325MG] 1 tab PO Q4H PRN PRN 2 Days #10 tab PRN Reason: Pain Prescription Printed Referrals: Nicky Mccall MD [Primary Care Provider] - Romaine Melchor MD [STAFF PHYSICIAN] - 3-5 Days
[2020-10-18 14:06] VITALS: RESP 15
== END 2020-10-18 14:07 | disposition home or self-care (01) ==
LOC: ED 13:59
PROVIDERS: Emergency Provider Emergency Medicine; PCP Internal Medicine
DX: S63.502A Unspecified sprain of left wrist, initial encounter (principal); X50.0XXA Overexertion from strenuous movement or load, initial encounter; Y93.89 Activity, other specified; Y92.9 Unspecified place or not applicable; Y99.9 Unspecified external cause status; I10 Essential (primary) hypertension; Z72.0 Tobacco use
CPT/HCPCS: 73110; 99283

== ENCOUNTER 2020-10-30 17:00 | Emergency (ER) | payer BC, SELFPAY ==
[2020-10-30 17:02] VITALS: BP 153/96; PULSE 112; RESP 20; TEMP 36.2; O2SAT 98; BMI 33.0
--- NOTE | 2020-10-30 17:13 | EKG12_ITS ---
Test Reason : CP Blood Pressure : / mmHG Vent. Rate : 113 BPM Atrial Rate : 113 BPM P-R Int : 144 ms QRS Dur : 068 ms QT Int : 340 ms P-R-T Axes : 063 053 072 degrees QTc Int : 466 ms Sinus tachycardia Otherwise normal ECG Confirmed by LARRY CHAVES, JAIDEN ([id number]), fan mail editor CATALINA JOHNSON ([id number]) on 11/04/2020 10:43:01 AM Referred By: TABITHA Confirmed By:JAIDEN JUAREZ MD
--- NOTE | 2020-10-30 17:34 | RAD_ITS ---
STUDY: X-RAY CHEST REASON FOR EXAM: Female, 40 years old. COMPLAINS OF CHEST PAIN, PALPITATIONS ALL DAY TECHNIQUE: 1 view COMPARISON: Prior chest radiograph of 07/03/2020 FINDINGS: The lungs are clear and expanded. There is no demonstrated pleural abnormality. Normal size heart. Normal mediastinum and simone. Normal visualized pulmonary arteries. Normal visualized aortic arch and descending thoracic aorta. Normal visualized thoracic spine. Normal visualized ribs, clavicles, and shoulders. There is no demonstrated abnormality of the visualized soft tissue structures of the upper abdomen. RAD/Chest 1 View (Portable) IMPRESSION: Normal x-ray examination of the chest. Electronically Signed: Kiara Godwin MD at 18:20 EST , Service support ,
[2020-10-30] MEDS: Ondansetron 4 MG/2 ML Vial IV (17:42)
[2020-10-30] MEDS: fentaNYL 100 MCG/2 ML Ampul 50 MCG IV (17:42)
[2020-10-30] MEDS: 0.9% Normal Saline 1,000 ML 1000 ML IV ×2 (17:42→18:34)
[2020-10-30 17:53] LABS: Absolute Lymphocyte Count 2.88 X10^3/uL (0.83-4.51); Absolute Neutrophil Count 8.8 X10^3/uL (2.0-7.7); Basophil# 0.06 X10^3/uL; Basophil% 0.5 % (0-1); Eosinophil# 0.26 X10^3/uL; Hematocrit 38.4 % (37-47); Hemoglobin 13.1 g/dL (12.0-15.0); Lymphocyte # 2.88 X10^3/ul (4.0); Lymphocyte % 22.4 % (19-41); Mean Corp Hgb Conc 34.1 g/dL (32-36); Mean Corpuscular Hgb 32.6 pg (27.0-32.0); Mean Corpuscular Volume 95.5 fL (81-99); Mean Platelet Vol. 10.1 fl (6.2-12.0); Monocyte# 0.73 X10^3/uL; Monocyte% 5.7 % (0-10); NRBC Flagged by Analyzer 0 % (0-5); Neutrophil # 8.79 X10^3/uL (2.7-7.7); Neutrophil % 68.2 % (47-70); Platelet Count 224 K/mm3 (150-450); RBC Distribution Width CV 12.2 % (11.6-14.6); RBC Distribution Width SD 42.1 fl (35.1-43.9); Red Blood Count 4.02 M/mm3 (4.2-5.4); White Blood Count 12.9 K/mm3 (4.4-11.0)
[2020-10-30 18:02] VITALS: BP 128/77; PULSE 97; RESP 18; O2SAT 95; O2SAT 97
[2020-10-30 18:03] LABS: D-Dimer Quantitative (DVT/PE) 0.29 FEU/ug/m (0.27-0.49)
[2020-10-30 18:17] LABS: Anion Gap 7 (5-15); BUN 17 mg/dL (7-18); BUN/Creat Ratio 21.9 RATIO (10-20); Calcium,Total 8.9 mg/dL (8.5-10.1); Chloride 104 mmol/L (98-107); Creatinine, Serum 0.78 mg/dL (0.55-1.02); EST Glomerular Filtration Rate 87 mL/min (>60); Est Glom Filt Rate - Afr Amer 106 mL/min (>60); Estimated Creatinine Clearance 83.62 ml/min; Glucose 106 mg/dL (74-106); Potassium 3.8 mmol/L (3.5-5.1); Sodium Level 135 mmol/L (136-145); Thyroid Stim Hormone (TSH) 2.46 uIU/mL (0.358-3.74)
--- NOTE | 2020-10-30 18:27 | EKG12_ITS ---
Test Reason : REPEAT Blood Pressure : / mmHG Vent. Rate : 084 BPM Atrial Rate : 084 BPM P-R Int : 172 ms QRS Dur : 072 ms QT Int : 356 ms P-R-T Axes : 063 062 058 degrees QTc Int : 420 ms Normal sinus rhythm Normal ECG Confirmed by LARRY CHAVES, JAIDEN ([id number]), food editor CATALINA JOHNSON ([id number]) on 11/04/2020 10:43:29 AM Referred By: DANIELLE Confirmed By:JAIDEN JUAREZ MD
--- NOTE | 2020-10-30 19:08 | ED.VISSUMM ---
- ER Visit Summary Date of Service: 10/30/20 Chief Complaint: Chest pain History of Present Illness: The patient is a [address] Olivia. She reports that she has chest pain that she describes as pressure that began at 3:00 this afternoon. Is a constant pain is now 10 worsened 7-10 currently. Is worsened by walking around. There is no change with movement or breathing. Is relieved by nothing. She does report she has associated nausea without vomiting. She has shortness of breath and diaphoresis. Patient reports that she has had intermittent stabbing chest pain since 10:00 this morning last seconds at a time. She feels lightheaded and as though her heart is racing. Physical Examination: Vitals: Stable. Afebrile. General: Well-nourished and well-developed. Head: Normocephalic atraumatic. Neck: Supple, no lymphadenopathy. No JVD. Nontender. Cardiovascular: Tachycardic regular rhythm. No murmurs. Respiratory: No respiratory distress. Clear to auscultation bilaterally. Abdominal: Soft, nontender, nondistended, normal bowel sounds. No guarding, rebound, or peritoneal signs. Back: Nontender. Extremities: Nontender, no edema. Skin: Normal color, no rash. Neurologic: Alert and oriented ?3. Cranial nerves II through XII are intact. Normal strength and sensation. Psych: Normal affect. Test Results: EKG shows sinus tach at [address] changes. Repeat EKG is unchanged. Troponin is less than 0.015. D-dimer is negative. Chem-7 shows a sodium 135. CBC shows a white count of 12.9 with 1.2% immature granulocytes. TSH is 2.46. Repeat troponin is negative. Clinical Impression(s) from Imaging Studies Chest X-Ray 10/30/20 17:34 IMPRESSION: Normal x-ray examination of the chest. Electronically Signed: Kiara Godwin MD at 18:20 EST , Service support , Emergency Department Course and Treatment: Patient had an IV placed. She was given a dose of morphine and Zofran IV. She is resting comfortably. Treatment Plan: This time I do not have an explanation for the patient's pain. However, I feel that she is a suitable candidate for further outpatient evaluation. She is instructed follow-up with her primary care physician soon as possible. Return to the emergency department for any worsening symptoms. Disposition: To home in improved and stable condition. Impression: 1. Atypical chest pain. 2. Heart score of 2. 3. JEREMI score of 0. 4. COVID-19 infection. This note was generated with [employer] dictation software. It may contain incorrect words, spelling, and punctuation that were not noted in review of the chart prior to signing ED Disposition - Plan for ED Patient: Instructions: ED Chest Pain, Uncertain Cause, Coronavirus Disease 2019 (COVID-19): Overview Referrals: Nicky Mccall MD [Primary Care Provider] - 3-5 Days
[2020-10-30 19:10] VITALS: BP 123/85; PULSE 75; RESP 22; O2SAT 100
[2020-10-30] MEDS: HYDROcodone Bitartrate/Apap 5/325 Tablet PO (20:52)
[2020-10-30 21:24] VITALS: BP 128/82; PULSE 95; RESP 18; O2SAT 97
== END 2020-10-30 21:38 | disposition home or self-care (01) ==
LOC: ED 17:48
PROVIDERS: Emergency Provider Emergency Medicine; PCP Internal Medicine
DX: U07.1 COVID-19 (principal); R07.89 Other chest pain; I10 Essential (primary) hypertension; Z72.0 Tobacco use
CPT/HCPCS: 71045; 80048; 84443; 84484; 85025; 85379; 87426; 93005; 96361; 96374; 96375; 99285; J7030; A4216; J2405

== ENCOUNTER 2020-11-03 14:17 | Inpatient (IN) | payer BC, SELFPAY ==
[2020-11-03] VITALS (8 sets, daily range): BP systolic 114–152; BP diastolic 79–97; PULSE 94–121; RESP 19–24; TEMP 36.4–37.2; O2SAT 88–97; BMI 23.0; BMI 32.8
--- NOTE | 2020-11-03 14:55 | CT_ITS ---
STUDY: CTA CHEST REASON FOR EXAM: Female, 40 years old. COVID POSITIVE, INCREASED COUGH AND SOB. Previously reported history of ablation of hepatic adenoma. RADIATION DOSAGE (If Supplied By Facility): CTDIvol = ( 10.66 ) mGy, DLP = ( 445.57 ) mGycm TECHNIQUE: The examination was performed with the intravenous administration of IV 100mL Isovue-370. Post-processing of the angiographic images was performed, with multiplanar reformation and 3D reconstruction. Individualized dose optimization techniques were used for this CT. COMPARISON: 04/02/2020, 01/16/2019. FINDINGS: The heart and pericardium are normal. The aorta is normal in caliber. No aneurysm or dissection. There is no mediastinal mass or adenopathy. There is no hilar or axillary adenopathy. There is no evidence of pulmonary embolus. There is no pleural effusion. There is no pulmonary consolidation. The lungs are clear. Diffuse fatty infiltration of the liver. Low-attenuation lesion in the right lobe of the liver, decreased compared to 2019. There is no osseous abnormality. CT/CTA Chest W/WO Contrast IMPRESSION: 1. No pulmonary embolism or arterial dissection. 2. Decreased size or conspicuity of previously documented right hepatic lesion consistent with prior ablation. Electronically Signed: Milana Dee MD at 18:57 EST Tel , Service support ,
--- NOTE | 2020-11-03 14:56 | EKG12_ITS ---
Test Reason : SOB Blood Pressure : / mmHG Vent. Rate : 109 BPM Atrial Rate : 109 BPM P-R Int : 138 ms QRS Dur : 066 ms QT Int : 318 ms P-R-T Axes : 052 049 050 degrees QTc Int : 428 ms Sinus tachycardia Otherwise normal ECG Confirmed by LARRY CHAVES, JAIDEN ([id number]), editor publications CATAILNA JOHNSON ([id number]) on 11/05/2020 11:15:35 AM Referred By: ANTON Confirmed By:JAIDEN JUAREZ MD
--- NOTE | 2020-11-03 14:57 | ED.DCSUM_ITS ---
History of Present Illness Chief Complaint: Shortness of Breath Narrative: This patient is a 40-year-old female who presents with chest pain and shortness of breath. She has a history of nonsustained ventricular tachycardia and follows with cardiology. She began to have chest and back pain last week 5 days ago. She was seen in the emergency department. She tested positive for COVID- 19 but otherwise her work-up was unremarkable. She did have a negative D-dimer at that time. She states she has had minor progression of her symptoms since that time but her symptoms acutely worsened today. She complains of severe pain across her lower chest and back. She describes this as feeling like a belt is around her. She also stated a sharp and pleuritic. She also developed acute worsening of her shortness of breath especially with exertion. She was severely short of breath after walking up the steps. She also complains of lightheadedness and dizziness which she describes as more near syncope than vertigo. No fevers. She does report chills. No vomiting. Past Medical History - Allergies and Home Meds Allergies/Adverse Reactions: Allergies latex Allergy (Mild, Verified 10/30/20 17:04) IRRIATION, OR IF SHE INGEST SHE VOMITS. morphine Allergy (Verified 10/30/20 17:04) Itching Penicillins Allergy (Verified 10/30/20 17:04) Shortness of breath acetaminophen [From Darvocet-N] Adverse Reaction (Verified 10/30/20 17:04) Nausea meperidine [From Demerol] Adverse Reaction (Verified 10/30/20 17:04) Nausea propoxyphene [From Darvocet-N] Adverse Reaction (Verified 10/30/20 17:04) Nausea varenicline [From Chantix] Adverse Reaction (Verified 10/30/20 17:04) Other Primary Care Physician: Nicky Mccall MD [Primary Care Provider] - Past Medical History: - - Hypertension, history of NSVT Surgical History: appendectomy, cholecystectomy, hysterectomy, - - Appendectomy, cholecystectomy, hysterectomy, bilateral wrist cyst removal, right carpal tunnel surgery, right liver lobe adenoma ablation in addition to left upper extremity lipoma removal. Smoking Status: Current every day smoker - Family History Paternal Family History: Reports: - - Patient is adopted and states she does not know any of her maternal or paternal family history. Maternal Family History: Reports: - - Patient is adopted and states she does not know any of her maternal or paternal family history. Review of Systems All systems negative except as indicated General: Reports: Chills. Denies: Fever Eyes: Denies: Visual changes - bilaterally ENT: Denies: Bilateral ear pain Cardiovascular: Reports: Chest pain Respiratory: Reports: Dyspnea, Cough Gastrointestinal: Reports: Nausea. Denies: Abdominal pain, Vomiting, Diarrhea Musculoskeletal: Denies: Myalgias, Arthralgias Skin: Denies: Rash Neurological: Denies: Headache Hematologic: Denies: Easy bruising, Easy bleeding Allergy: Denies: Uticaria Physical Exam Vital Signs/Narrative: Vital Signs Temp Pulse Resp BP Pulse Ox 11/03/20 14:18 97.5 F L 121 H 22 H 152/97 H 97 Inital Vital Signs reviewed: Yes General: Well nourished, Well developed Head: Normocephalic Eyes: EOMI ENT: Moist mucous membranes Neck: Supple Cardiovascular: Regular rhythm, Tachycardia Respiratory: CTA bilaterally. Negative for: Rales, Rhonchi, Wheezing Abdomen: Soft, Nontender Extremities: Nontender, No edema Skin: Normal color Neurological: Alert Psychological: Normal affect Diagnostic/Tx/Re-eval Impressions Chest CTA 11/03/20 14:55 IMPRESSION: 1. No pulmonary embolism or arterial dissection. 2. Decreased size or conspicuity of previously documented right hepatic lesion consistent with prior ablation. Electronically Signed: Milana Dee MD at 18:57 EST Tel , Service support , 11/03/20 14:55 CTA Chest W/WO Contrast [CT] Stat Laboratory Results 11/03/20 11/03/20 11/03/20 16:05 16:05 16:05 WBC 14.6 H RBC 3.75 L Hgb 12.1 Hct 36.0 L MCV 96.0 MCH 32.3 H MCHC 33.6 RDW Std Deviation 41.6 RDW Coeff of Lynette 12.0 Plt Count 237 MPV 10.5 PT 12.2 INR 1.0 Sodium 140 Potassium 4.1 Chloride 109 H Carbon Dioxide 22.0 Anion Gap 9 BUN 18 Creatinine 0.88 Estim Creat Clear Calc 111.51 Est GFR (MDRD) Af Amer 92 Est GFR (MDRD) Non-Af 76 BUN/Creatinine Ratio 20.5 H Glucose 86 Calcium 8.7 Troponin I < 0.015 - Medical Decision Making EKG shows sinus tachycardia at a rate of 109. Labs are notable for white count of 14.6. Given the abrupt onset of worsening of her symptoms I was concerned for possible pulmonary embolism. A CTA of the chest is unremarkable no PE normal lungs. Patient's heart rate has improved with fluids. However with ambulation she became dyspneic and desaturated down to 88%. She was given IV Decadron discussed with the hospitalist and admitted. ED Disposition - Plan for ED Patient: Disposition: Acute Care Hospital [facility] Diagnosis: COVID-19 Referrals: Nicky Mccall MD [Primary Care Provider] -
[2020-11-03] MEDS: fentaNYL 100 MCG/2 ML Ampul 50 MCG IV (15:46)
[2020-11-03] MEDS: Ondansetron 4 MG/2 ML Vial IV ×2 (15:46→22:41)
[2020-11-03] MEDS: 0.9% Normal Saline 1,000 ML 999 ML IV (15:46)
[2020-11-03 16:34] LABS: Hemoglobin 12.1 g/dL (12.0-15.0); Mean Corp Hgb Conc 33.6 g/dL (32-36); Mean Corpuscular Hgb 32.3 pg (27.0-32.0); Mean Platelet Vol. 10.5 fl (6.2-12.0); Platelet Count 237 K/mm3 (150-450); RBC Distribution Width SD 41.6 fl (35.1-43.9); Red Blood Count 3.75 M/mm3 (4.2-5.4); White Blood Count 14.6 K/mm3 (4.4-11.0)
[2020-11-03 16:39] LABS: Anion Gap 9 (5-15); BUN 18 mg/dL (7-18); BUN/Creat Ratio 20.5 RATIO (10-20); Calcium,Total 8.7 mg/dL (8.5-10.1); Chloride 109 mmol/L (98-107); Creatinine, Serum 0.88 mg/dL (0.55-1.02); EST Glomerular Filtration Rate 76 mL/min (>60); Est Glom Filt Rate - Afr Amer 92 mL/min (>60); Estimated Creatinine Clearance 111.51 ml/min; Glucose 86 mg/dL (74-106); Potassium 4.1 mmol/L (3.5-5.1); Sodium Level 140 mmol/L (136-145)
[2020-11-03 16:44] LABS: Prothrombin Time (Protime)PT. 12.2 SECONDS (11.7-14.9)
--- NOTE | 2020-11-03 19:14 | ED.RN ---
ptlaying po 97%. pt walked around room. Pt po drop to 88% and pt began coughing
[2020-11-03] MEDS: dexAMETHasone 4 MG/ML Vial 6 MG IV (19:23)
--- NOTE | 2020-11-03 19:37 | PCM.HP.STD ---
Problem List (1) COVID-19 Status: Acute (2) NSVT (nonsustained ventricular tachycardia) Status: Chronic (3) Essential hypertension Status: Chronic (4) GERD (gastroesophageal reflux disease) Status: Chronic Qualifiers: Esophagitis presence: esophagitis presence not specified Qualified Code(s): K21.9 - Gastro-esophageal reflux disease without esophagitis (5) Obesity (BMI 30.0-34.9) Status: Chronic (6) Chest pain Status: Acute History of Present Illness Date of Admission: 11/03/20 Chief Complaint: chest pain and shortness of breath The patient is a 40 year old female patient with a significant past medical history of nonsustained ventricular tachycardia, hypertension, acid reflux disease, obesity who presents the emergency room with acute chest pain and shortness of breath. The patient was diagnosed with COVID-19 on October 30 and has had progressive decline since that time. Today she had acute worsening of symptoms including shortness of breath and chest pain that she describes as a belt-like pattern around both sides of her chest wall. She has remained tachycardic since her arrival but denies use of any aerosol treatments prior to arrival. Initial D-dimer was negative, however, due to the tachycardia and chest pain a CT angiogram of chest was done which was negative for pulmonary embolism. Initial cardiac markers are negative. When walking the patient became hypoxic with a pulse ox saturation of 88% and remained tachycardic. She therefore will be admitted to the Covid floor for further management of her illness. Past Medical History Past Medical History (Chronic Problems): Chronic Problems (Last Updated 09/09/20 @ 15:26 by Joselin Acevedo) NSVT (nonsustained ventricular tachycardia) (Chronic) Essential hypertension (Chronic) GERD (gastroesophageal reflux disease) (Chronic) Tobacco use (Chronic) Obesity (BMI 30.0-34.9) (Chronic) Medical History: Medical History (Last Updated 09/09/20 @ 15:26 by Joselin Acevedo) NSVT (nonsustained ventricular tachycardia) (Acute) I47.2 Essential hypertension (Chronic) I10 GERD (gastroesophageal reflux disease) (Chronic) K21.9 Tobacco use (Chronic) Z72.0 Obesity (BMI 30.0-34.9) (Chronic) E66.9 Abnormal stress test (Acute) Chest pain (Acute) R07.9 Anxiety and depression F41.9, F32.9 Hepatic adenoma D13.4 IBS (irritable bowel syndrome) K58.9 Abdominal pain R10.9 Partial obstruction of small intestine RUQ pain R10.11 Allergies latex Allergy (Mild, Verified 10/30/20 17:04) IRRIATION, OR IF SHE INGEST SHE VOMITS. morphine Allergy (Verified 10/30/20 17:04) Itching Penicillins Allergy (Verified 10/30/20 17:04) Shortness of breath acetaminophen [From Darvocet-N] Adverse Reaction (Verified 10/30/20 17:04) Nausea meperidine [From Demerol] Adverse Reaction (Verified 10/30/20 17:04) Nausea propoxyphene [From Darvocet-N] Adverse Reaction (Verified 10/30/20 17:04) Nausea varenicline [From Chantix] Adverse Reaction (Verified 10/30/20 17:04) Other Home Medications: Ambulatory Orders Medication Instructions Recorded Ergocalciferol [Vitamin D] 50,000 unit PO Q7D 07/03/20 Furosemide [Lasix] 20 mg PO DAILY PRN 07/03/20 Losartan Potassium 50 mg PO DAILY 07/03/20 Rizatriptan Benzoate [Maxalt] 10 mg PO .X1 PRN PRN 07/03/20 esomeprazole magnesium 20 mg 20 mg PO .COMPLEX 09/09/20 tablet,delayed release ondansetron 4 mg disintegrating 4 mg PO QHS PRN tab 09/09/20 tablet Meloxicam [Mobic] 15 mg PO DAILY PRN 10/18/20 Verapamil HCl [Verapamil Sr] 120 mg PO DAILY 10/18/20 Surgical History: Surgical History (Last Updated 09/09/20 @ 15:18 by Joselin Acevedo) History of carpal tunnel release Z98.890 Right History of surgery of liver Z98.890 Ablation for hepatic mass 10/2018 Status post appendectomy Z90.49 Status post cholecystectomy Z90.49 Status post hysterectomy Z90.710 Surgical History: appendectomy, cholecystectomy, hysterectomy, - - Appendectomy, cholecystectomy, hysterectomy, bilateral wrist cyst removal, right carpal tunnel surgery, right liver lobe adenoma ablation in addition to left upper extremity lipoma removal. Psychiatric History: No pertinent psych hx [employer] History: No pertinent [employer] history Smoking Status: Never smoker - *Family History Paternal History Items: - - Patient is adopted and states she does not know any of her maternal or paternal family history. Maternal History Items: - - Patient is adopted and states she does not know any of her maternal or paternal family history. Review of Systems Constitutional: Reports: Chills, Fever, Weakness, Fatigue. Denies: Weight Change HEENT: Denies: Head Aches, Sinus Congestion, Sinus Drainage Cardiovascular: Reports: Chest Pain, Chest Tightness. Denies: Palpitations Respiratory: Reports: Cough, Pleuritic Pain, Shortness of breath upon exertion. Denies: Shortness of breath at rest, Sputum production Gastrointestinal: Denies: Abdominal Pain, Nausea, Vomiting Genitourinary: Denies: Dysuria Musculoskeletal: Denies: Joint Pain, Joint Tenderness Skin: Denies: Rash, Wounds Neurological: Denies: Numbness, Tingling, Focal weakness Psychiatric: Denies: Anxiety, Depression, Homicidal Ideations, Suicidal Ideations Hematologic/ Lymphatic: Denies: Easy Bruising, Easy Bleeding VTE Information - Inpt Only VTE Present on Admission: No VTE Mechan Device Prophylaxis: None VTE Pharm Prophylaxis ordered?: Yes Patient Problems: Active and Suspected Problems (Last Updated 09/09/20 @ 15:26 by Joselin Acevedo) COVID-19 (Acute) - Physical Exam Vitals/I&O's: Vital Signs Temp Pulse Resp BP Pulse Ox 97.9 F 103 H 19 H 141/81 H 97 11/03/20 19:31 11/03/20 19:31 11/03/20 19:31 11/03/20 19:31 11/03/20 19:31 Oxygen Delivery Method Room Air Weight: 189 lb Body Mass Index (BMI) 23.0 Finger Stick Blood Glucose 93 Intake and Output for Last 24 Hours 11/01/20 11/02/20 11/03/20 23:59 23:59 23:59 Intake Total 1000 / 1000 Balance 1000 / 1000 General: Alert, Oriented x3, Cooperative HEENT: Atraumatic, Normocephalic Neck: Supple Lungs: No wheeze, Diminished, Short of Breath, Tachypneic Cardiovascular: Normal S1, Normal S2, No murmurs, Tachycardic Abdomen: Bowel Sounds Present, Soft Extremities: No edema Skin: No rashes Musculoskeletal: No Tenderness to Palpation of Joints or Extremities Neurological: Neuro grossly intact Psych/Mental Status: Normal Affect, Appropriate Laboratory Results 11/03/20 16:05: WBC 14.6 H, RBC 3.75 L, Hgb 12.1, Hct 36.0 L, MCV 96.0, MCH 32.3 H, MCHC 33.6, RDW Std Deviation 41.6, RDW Coeff of Lynette 12.0, Plt Count 237, MPV 10.5 11/03/20 16:05: PT 12.2, INR 1.0 11/03/20 16:05: Sodium 140, Potassium 4.1, Chloride 109 H, Carbon Dioxide 22.0, Anion Gap 9, BUN 18, Creatinine 0.88, Estim Creat Clear Calc 111.51, Est GFR (MDRD) Af Amer 92, Est GFR (MDRD) Non-Af 76, BUN/Creatinine Ratio 20.5 H, Glucose 86, Calcium 8.7, Troponin I < 0.015 Assessment/Plan All Active Problems (Last Updated 09/09/20 @ 15:26 by Joselin Acevedo) COVID-19 (Acute) Abnormal stress test (Acute) Chest pain (Acute) Chronic Problems (Last Updated 09/09/20 @ 15:26 by Joselin Acevedo) NSVT (nonsustained ventricular tachycardia) (Chronic) Essential hypertension (Chronic) GERD (gastroesophageal reflux disease) (Chronic) Tobacco use (Chronic) Obesity (BMI 30.0-34.9) (Chronic) Plan 1. Acute chest pain with shortness of breath secondary to COVID-19 virus.?Admit patient to cohort floor with strict isolation protocol, continue Decadron, oxygen per protocol, consult ID specialist, repeat CBC BMP in the morning, consider monoclonal antibody intervention 2. Hypertension?continue home medications 3. Acid reflux disease continue proton pump inhibitor 4. DVT prophylaxis?low molecular weight heparin Inpatient E&M: 34216 Init Hosp L3
[2020-11-03] MEDS: 0.9% Normal Saline 1,000 ML 125 ML IV (21:38)
[2020-11-03] MEDS: Benzonatate 100 MG Capsule PO (22:41)
[2020-11-03] MEDS: HYDROmorphone 0.5 MG/0.5 ML SYRINGE IV (22:41)
[2020-11-04] VITALS (13 sets, daily range): BP systolic 120–145; BP diastolic 75–88; PULSE 68–100; RESP 16–18; TEMP 36.8–37.2; O2SAT 95–99
--- NOTE | 2020-11-04 00:46 | NURSING ---
PANDEMIC DOCUMENTATION INITIATED: Date: 11/03/2020 Time: 2014
[2020-11-04] MEDS: HYDROmorphone 0.5 MG/0.5 ML SYRINGE IV ×2 (01:42→04:57)
[2020-11-04] MEDS: guaiFENesin 10 ML UDC (200MG/10ML) PO ×2 (02:25→06:17)
[2020-11-04 03:46] LABS: Absolute Lymphocyte Count 0.93 X10^3/uL (0.83-4.51); Absolute Neutrophil Count 12.2 X10^3/uL (2.0-7.7); Basophil# 0.03 X10^3/uL; Basophil% 0.2 % (0-1); Eosinophil# 0.01 X10^3/uL; Eosinophils% 0.1 % (0-5); Hematocrit 37.4 % (37-47); Hemoglobin 12.5 g/dL (12.0-15.0); Lymphocyte # 0.93 X10^3/ul (4.0); Mean Corp Hgb Conc 33.4 g/dL (32-36); Mean Corpuscular Hgb 32.1 pg (27.0-32.0); Mean Corpuscular Volume 96.1 fL (81-99); Mean Platelet Vol. 10.2 fl (6.2-12.0); Monocyte# 0.13 X10^3/uL; NRBC Flagged by Analyzer 0 % (0-5); Neutrophil # 12.16 X10^3/uL (2.7-7.7); Platelet Count 234 K/mm3 (150-450); RBC Distribution Width CV 12.1 % (11.6-14.6); RBC Distribution Width SD 42.4 fl (35.1-43.9); Red Blood Count 3.89 M/mm3 (4.2-5.4); White Blood Count 13.4 K/mm3 (4.4-11.0)
[2020-11-04 04:00] LABS: D-Dimer Quantitative (DVT/PE) <= 0.27 FEU/ug/m (0.27-0.49)
[2020-11-04] MEDS: 0.9% Normal Saline 1,000 ML 125 ML IV (04:58)
[2020-11-04 05:07] LABS: Alkaline Phosphatase 52 U/L (45-117); Anion Gap 7 (5-15); BUN 13 mg/dL (7-18); BUN/Creat Ratio 15.2 RATIO (10-20); CRP 7.07 mg/L (0.0-3.0); Calcium,Total 8.6 mg/dL (8.5-10.1); Chloride 106 mmol/L (98-107); Creatinine, Serum 0.86 mg/dL (0.55-1.02); EST Glomerular Filtration Rate 78 mL/min (>60); Est Glom Filt Rate - Afr Amer 95 mL/min (>60); Estimated Creatinine Clearance 75.84 ml/min; Ferritin 89 ng/mL (8-252); Glucose 156 mg/dL (74-106); Phosphorus 2.9 mg/dL (2.5-4.9); Potassium 4.4 mmol/L (3.5-5.1); Sodium Level 134 mmol/L (136-145)
[2020-11-04 06:44] LABS: Procalcitonin < 0.04 ng/mL (0.00-0.09)
--- NOTE | 2020-11-04 07:22 | PCM.PN.HOSP ---
Patient Problems: Active and Suspected Problems (Last Updated 09/09/20 @ 15:26 by Joselin Acevedo) COVID-19 (Acute) Chest pain (Acute) Reason for Visit: Follow-up for acute hypoxic respiratory failure secondary to COVID-19 pneumonia and chest pain Objective: Patient complain of chest pain severe intensity 10/10 all around the chest but not associated with facial expression without exacerbating, relieving, precipitating or radiation. Denies any shortness of breath. Patient denies any chronic pain but was on Percocet for short term for wrist fracture. Denies chronic back pain pelvic pain or abdominal pain. Physical exam General: Alert, Oriented x3, Cooperative HEENT: Atraumatic, PERRLA, EOMI, Normocephalic Oral: No Gingival or Mucosal Lesions/ Ulcerations Neck: Supple, No JVD, Negative Carotid Bruits Lungs: Air entry diminished in bilateral lung bases. No crepitation/rhonchi Cardiovascular: Regular rate, Regular Rhythm, Normal S1, Normal S2, No murmurs Abdomen: Bowel Sounds Present, Soft, Non Tender, Non-Distended : No renal angle tenderness. No suprapubic tenderness. Extremities: No edema, Capillary Refill Less than 3 Seconds Skin: No rashes, No breakdown Musculoskeletal: No Tenderness to Palpation of Joints or Extremities Neurological: Cranial nerves II-XII grossly intact, Deep Tendon Reflexes 2+/4 and Symmetrical, Neuro grossly intact Psych/Mental Status: Normal Affect, Appropriate. Vitals/I&O's: Vital Signs Temp Pulse Resp BP Pulse Ox 98.5 F 81 18 144/88 H 95 11/04/20 02:50 11/04/20 05:00 11/04/20 02:50 11/04/20 02:50 11/04/20 02:50 Oxygen Delivery Method Room Air Weight: 191 lb Body Mass Index (BMI) 32.8 Finger Stick Blood Glucose 93 Intake and Output for Last 24 Hours 11/02/20 11/03/20 11/04/20 23:59 23:59 23:59 Intake Total 1000 / 1000 916.67 / 916.67 Balance 1000 / 1000 916.67 / 916.67 Laboratory Results 11/03/20 11:38: Troponin I < 0.015 11/03/20 16:05: WBC 14.6 H, RBC 3.75 L, Hgb 12.1, Hct 36.0 L, MCV 96.0, MCH 32.3 H, MCHC 33.6, RDW Std Deviation 41.6, RDW Coeff of Lynette 12.0, Plt Count 237, MPV 10.5 11/03/20 16:05: PT 12.2, INR 1.0 11/03/20 16:05: Sodium 140, Potassium 4.1, Chloride 109 H, Carbon Dioxide 22.0, Anion Gap 9, BUN 18, Creatinine 0.88, Estim Creat Clear Calc 111.51, Est GFR (MDRD) Af Amer 92, Est GFR (MDRD) Non-Af 76, BUN/Creatinine Ratio 20.5 H, Glucose 86, Calcium 8.7, Troponin I < 0.015 11/03/20 21:25: Troponin I < 0.015 11/04/20 03:20: WBC 13.4 H, RBC 3.89 L, Hgb 12.5, Hct 37.4, MCV 96.1, MCH 32.1 H, MCHC 33.4, RDW Std Deviation 42.4, RDW Coeff of Lynette 12.1, Plt Count 234, MPV 10.2, Immature Gran % (Auto) 0.700, Neut % (Auto) 91.0 H, Lymph % (Auto) 7.0 L, Osborne % (Auto) 1.0, Eos % (Auto) 0.1, Baso % (Auto) 0.2, Absolute Neuts (auto) 12.2 H, Absolute Lymphs (auto) 0.93, Nucleated RBC % 0 11/04/20 03:20: D-Dimer Quant (PE/DVT) <= 0.27 11/04/20 03:20: Procalcitonin < 0.04 11/04/20 03:20: Sodium 134 L, Potassium 4.4, Chloride 106, Carbon Dioxide 21.0, Anion Gap 7, BUN 13, Creatinine 0.86, Estim Creat Clear Calc 75.84, Est GFR (MDRD) Af Amer 95, Est GFR (MDRD) Non-Af 78, BUN/Creatinine Ratio 15.2, Glucose 156 H, Calcium 8.6, Phosphorus 2.9, Magnesium 2.0, Ferritin 89, Alkaline Phosphatase 52, Troponin I < 0.015, C-React Prot Ext Range 7.07 H Current Medications Benzonatate (Benzonatate 100 Mg Capsule) 100 mg PO TID PRN PRN PRN Reason: COUGH Last Admin: 11/03/20 22:41 Dose: 100 mg Documented by: Dexamethasone (Dexamethasone 4 Mg Tablet) 6 mg PO DAILY@0800 [facility], [facility]1983 Enoxaparin Sodium (Enoxaparin 40 Mg/0.4 Ml Syringe) 40 mg SC DAILY [facility]1983 Furosemide (Furosemide 20 Mg Tablet) 20 mg PO DAILY PRN PRN PRN Reason: Swelling Guaifenesin (Guaifenesin 10 Ml Udc (200mg/10ml)) 10 ml PO Q4H PRN PRN PRN Reason: COUGH UNRELIEVED BY TESSALON Last Admin: 11/04/20 06:17 Dose: 10 ml Documented by: Hydromorphone HCl (Hydromorphone 0.5 Mg/0.5 Ml Syringe) 0.5 mg IV Q3H PRN PRN PRN Reason: Pain Score 6-10 Last Admin: 11/04/20 04:57 Dose: 0.5 mg Documented by: Sodium Chloride () 1,000 mls @ 125 mls/hr IV .Q8H ANDREINA Last Admin: 11/04/20 04:58 Dose: 125 mls/hr Documented by: Sodium Chloride () 250 mls @ 15 mls/hr IV .[id number] PRN PRN Reason: Saline Flush Sodium Chloride () 250 mls @ 15 mls/hr IV .[id number] PRN PRN Reason: Additional IVPB Infusion Influenza Virus Vaccine Quadrival (Influenza Vaccine (6mos+)/Pf 0.5 Ml Syringe) 0.5 ml IM .ONCE ONE Stop: 11/04/20 10:01 Losartan Potassium (Losartan Potassium 50 Mg Tablet) 50 mg PO DAILY [facility] Meloxicam (Meloxicam 15 Mg Tablet) 15 mg PO DAILY PRN PRN Reason: Pain 1-10 or Fever Ondansetron HCl (Ondansetron 4 Mg/2 Ml Vial) 4 mg IV Q8H PRN PRN PRN Reason: NAUSEA/VOMITING Last Admin: 11/03/20 22:41 Dose: 4 mg Documented by: Pantoprazole Sodium (Pantoprazole Sodium 40 Mg Tablet) 40 mg PO DAILY [facility] Sodium Chloride (0.9% Saline Lock 10 Ml Syringe) 10 - 40 ml IV UD PRN PRN Reason: SALINE FLUSH Verapamil HCl (Verapamil Sr 240 Mg Tablet) 120 mg PO DAILY ANDREINA STROKE Vital Signs/Narrative: Vital Signs Pulse 11/04/20 05:00 81 Medical Necessity - Tobacco Use Smoking Status: Current every day smoker Tobacco Use: Cigarettes Assessment/Plan All Active Problems (Last Updated 09/09/20 @ 15:26 by Joslein Acevedo) COVID-19 (Acute) Abnormal stress test (Acute) Chest pain (Acute) This 40-year-old female with history of NSVT, hypertension was admitted with chest pain and shortness of breath after she was diagnosed COVID-19 on October 30. Chest pain is bandlike around both sides of chest wall. Mild leukocytosis with lymphopenia. 1. Acute chest pain secondary to COVID-19 virus. Patient admitted on Covid cohort floor, continue Decadron, oxygen per protocol although patient currently not hypoxic. Pulse ox 95% on room air. D-dimer negative. CTPA negative for PE. Leukocytosis with lymphopenia. Calcitonin less than 0.04. CRP 7.04. Patient was seen by ID. IV fluid started patient is an well-hydrated. On Decadron and remdesivir. Chest pain mainly seems inflammatory/musculoskeletal. Different pain medications were tried including Toradol, Flexeril but patient did not feel relief. It was changed to oxycodone and tizanidine along with Toradol. 2. Hypertension?continue home medications on losartan. Patient also on verapamil. Patient has history of NSVT. 3. Acid reflux disease continue proton pump inhibitor 4. DVT prophylaxis?low molecular weight heparin Inpatient E&M: 21114 Subs Hosp L2
[2020-11-04] MEDS: Pantoprazole Sodium 40 MG Tablet PO (08:24)
[2020-11-04] MEDS: Verapamil SR 240 MG Tablet 120 MG PO (08:24)
[2020-11-04] MEDS: dexAMETHasone 4 MG Tablet 6 MG PO (08:25)
[2020-11-04] MEDS: Losartan Potassium 50 MG Tablet PO (08:25)
[2020-11-04] MEDS: 0.9% Saline Lock 10 ML Syringe IV ×2 (08:26→14:04)
[2020-11-04] MEDS: Enoxaparin 40 MG/0.4 ML Syringe SC (08:26)
[2020-11-04] MEDS: Ondansetron 4 MG/2 ML Vial IV (08:27)
[2020-11-04] MEDS: Ketorolac 15 MG/ML Vial IV ×2 (08:27→20:17)
[2020-11-04] MEDS: guaiFENesin/Codeine 5 ML UDC 10 ML PO ×3 (08:34→20:17)
[2020-11-04] MEDS: cycloBENZAPRine HCl 10 MG Tablet PO (09:40)
--- NOTE | 2020-11-04 10:12 | PCS.PANDOC ---
PANDEMIC DOCUMENTATION INITIATED: Date: 09/15/2020 Time:
--- NOTE | 2020-11-04 10:17 | CASEMGMT ---
RN CM Assessment Note Introduced role of CM to patient. Demographics, PCP verified. Pt states she is independent, no care needs. She is employed and drives. Plan is to return home on discharge. Her significant other and 19 year old son who live with her are asymptomatic and she believes they do not have COVID19. She has been isolating herself in bedroom and her family is able to provide meals, groceries, etc. COVID 19 Testin10/30/20 @ [facility] Presentation: chest pain, COVID 19 positive Diagnosis: COVID 19 PCP: Dr. Mccall Specialists: Dr. Jolly, cardiology Insurance: [employer] Preferred Pharmacy: [facility] Prescription Benefit: yes LNOK: Mother, Aide Herrera Living Arrangements: Lives independently with her significant other Chris Foley. Pt states she is independent in all ADL, IADL. No care needs identified. Tranportation: drives DME: none. If oxygen is needed, [facility] D[facility] providers for [place] are: [facility], [facility], Michele, Tamara. List reviewed via phone with patient. She does not have preference and is agreeable to [facility] (aware of hospital affiliation). HHC: none Patient DC Goals: Home DC Plan: Home. Will follow for home O2 needs. CM available for discharge planning coordination. Contact CM for any concerns/needs that may arise. Neeraj HANSEN RN ACM
[2020-11-04] MEDS: Acetaminophen 325 MG Tablet 650 MG PO ×2 (11:11→14:13)
[2020-11-04] MEDS: oxyCODONE 5 MG Tablet 10 MG PO ×2 (12:04→18:22)
--- NOTE | 2020-11-04 16:11 | PCM.HP.ID ---
Problem List (1) COVID-19 Status: Acute Reason for Consult: covid Consulted by: Dr. Gomez History of Present Illness: The patient is a 40 year old F presented with sx since 10/30, c/o chills, headache, sore throat, cough, SOB, aches, nausea, diarrhea. No change in taste/smell. Family at home feeling ok, in quarantine. Had worsening dyspnea, came to ED, admitted on dex. Covid Ag (+). Not feeling any better this Am. Full ROS performed and neg except as noted above. - Medical History Past Medical History (Chronic Problems): Chronic Problems (Last Updated 09/09/20 @ 15:26 by Joselin Acevedo) NSVT (nonsustained ventricular tachycardia) (Chronic) Essential hypertension (Chronic) GERD (gastroesophageal reflux disease) (Chronic) Tobacco use (Chronic) Obesity (BMI 30.0-34.9) (Chronic) Allergies/Adverse Reactions: Allergies latex Allergy (Mild, Verified 10/30/20 17:04) IRRIATION, OR IF SHE INGEST SHE VOMITS. morphine Allergy (Verified 10/30/20 17:04) Itching Penicillins Allergy (Verified 11/03/20 20:27) Anaphylaxis meperidine [From Demerol] Adverse Reaction (Verified 10/30/20 17:04) Nausea propoxyphene [From Darvocet-N] Adverse Reaction (Verified 10/30/20 17:04) Nausea varenicline [From Chantix] Adverse Reaction (Verified 11/03/20 20:27) Turns me into a crazy person Home Medications: Ambulatory Orders Medication Instructions Recorded Ergocalciferol [Vitamin D] 50,000 unit PO MO 07/03/20 Furosemide [Lasix] 20 mg PO DAILY PRN PRN 07/03/20 Losartan Potassium 50 mg PO DAILY 07/03/20 Rizatriptan Benzoate [Maxalt] 10 mg PO .X1 PRN PRN 07/03/20 ondansetron 4 mg disintegrating 4 mg PO QHS PRN tab 09/09/20 tablet Meloxicam [Mobic] 15 mg PO DAILY PRN 10/18/20 Verapamil HCl [Verapamil Sr] 120 mg PO DAILY 10/18/20 Esomeprazole Magnesium 40 mg PO DAILY 11/03/20 - Social History SMOKING STATUS:: Current every day smoker Vital Signs Temp Pulse Resp BP Pulse Ox 98.8 F 73 18 122/75 H 95 11/04/20 14:17 11/04/20 16:04 11/04/20 14:17 11/04/20 14:17 11/04/20 14:17 Oxygen Delivery Method Room Air Weight: 86.6 kg Body Mass Index (BMI) 32.8 Finger Stick Blood Glucose 93 Laboratory Tests Past 24 Hrs 11/03/20 11/03/20 11/03/20 11:38 16:05 16:05 WBC 14.6 H RBC 3.75 L Hgb 12.1 Hct 36.0 L MCV 96.0 MCH 32.3 H MCHC 33.6 RDW Std Deviation 41.6 RDW Coeff of Lynette 12.0 Plt Count 237 MPV 10.5 Immature Gran % (Auto) Neut % (Auto) Lymph % (Auto) [place] % (Auto) Eos % (Auto) Baso % (Auto) Absolute Neuts (auto) Absolute Lymphs (auto) Nucleated RBC % PT 12.2 INR 1.0 D-Dimer Quant (PE/DVT) Sodium Potassium Chloride Carbon Dioxide Anion Gap BUN Creatinine Estim Creat Clear Calc Est GFR (MDRD) Af Amer Est GFR (MDRD) Non-Af BUN/Creatinine Ratio Glucose Calcium Phosphorus Magnesium Ferritin Alkaline Phosphatase Troponin I < 0.015 C-React Prot Ext Range Procalcitonin 11/03/20 11/03/20 11/04/20 16:05 21:25 03:20 WBC 13.4 H RBC 3.89 L Hgb 12.5 Hct 37.4 MCV 96.1 MCH 32.1 H MCHC 33.4 RDW Std Deviation 42.4 RDW Coeff of Lynette 12.1 Plt Count 234 MPV 10.2 Immature Gran % (Auto) 0.700 Neut % (Auto) 91.0 H Lymph % (Auto) 7.0 L [place] % (Auto) 1.0 Eos % (Auto) 0.1 Baso % (Auto) 0.2 Absolute Neuts (auto) 12.2 H Absolute Lymphs (auto) 0.93 Nucleated RBC % 0 PT INR D-Dimer Quant (PE/DVT) Sodium 140 Potassium 4.1 Chloride 109 H Carbon Dioxide 22.0 Anion Gap 9 BUN 18 Creatinine 0.88 Estim Creat Clear Calc 111.51 Est GFR (MDRD) Af Amer 92 Est GFR (MDRD) Non-Af 76 BUN/Creatinine Ratio 20.5 H Glucose 86 Calcium 8.7 Phosphorus Magnesium Ferritin Alkaline Phosphatase Troponin I < 0.015 < 0.015 C-React Prot Ext Range Procalcitonin 11/04/20 11/04/20 11/04/20 03:20 03:20 03:20 WBC RBC Hgb Hct MCV MCH MCHC RDW Std Deviation RDW Coeff of Lynette Plt Count MPV Immature Gran % (Auto) Neut % (Auto) Lymph % (Auto) [place] % (Auto) Eos % (Auto) Baso % (Auto) Absolute Neuts (auto) Absolute Lymphs (auto) Nucleated RBC % PT INR D-Dimer Quant (PE/DVT) <= 0.27 Sodium 134 L Potassium 4.4 Chloride 106 Carbon Dioxide 21.0 Anion Gap 7 BUN 13 Creatinine 0.86 Estim Creat Clear Calc 75.84 Est GFR (MDRD) Af Amer 95 Est GFR (MDRD) Non-Af 78 BUN/Creatinine Ratio 15.2 Glucose 156 H Calcium 8.6 Phosphorus 2.9 Magnesium 2.0 Ferritin 89 Alkaline Phosphatase 52 Troponin I < 0.015 C-React Prot Ext Range 7.07 H Procalcitonin < 0.04 - Other Studies Radiology: [] reviewed Other Studies: [] Route of nutrition/ use of supplements: [] Nutritional Intake: [] IV Site: [] Spear Catheter: [] - Physical Exam General: Alert, Oriented x3, Cooperative HEENT: Atraumatic, PERRLA, EOMI Neck: Supple, No Nodes Lungs: Diminished Cardiovascular: Regular rate, Regular Rhythm Abdomen: Soft, Non Tender, Non-Distended Extremities: No edema Skin: No rashes IV Site: Peripheral, without redness Musculoskeletal: No Tenderness to Palpation of Joints or Extremities Neurological: Cranial nerves II-XII grossly intact - Assessment/Plan Antibiotics: [] Assessment/Plan: [] Active and Suspected Problems (Last Updated 09/09/20 @ 15:26 by Joselin Acevedo) COVID-19 (Acute) Chest pain (Acute) covid with hypoxia - sx started 10/30. Will cont dex, start remdesivir. D-dimer less than 0.3, on lovenox 40mg daily. Plan on 20 days of quarantine from 10/30, 10 days of dex today. Will follow, thank you.
[2020-11-05] MEDS: oxyCODONE 5 MG Tablet 10 MG PO ×2 (00:38→06:50)
[2020-11-05] MEDS: Ondansetron 4 MG/2 ML Vial IV (00:39)
[2020-11-05 01:45] VITALS: PULSE 68
[2020-11-05 03:26] VITALS: BP 147/94; PULSE 71; RESP 20; TEMP 37.1; O2SAT 97
[2020-11-05] MEDS: guaiFENesin/Codeine 5 ML UDC 10 ML PO ×2 (03:28→09:48)
[2020-11-05] MEDS: Acetaminophen 325 MG Tablet 650 MG PO (03:28)
[2020-11-05] MEDS: tiZANidine HCl 2 MG Tablet 4 MG PO (03:29)
[2020-11-05 04:00] VITALS: PULSE 80; RESP 20; O2SAT 97
[2020-11-05] MEDS: proCHLORPERazine 10 MG/2 ML Vial IV (06:16)
[2020-11-05 06:51] LABS: Hematocrit 34.3 % (37-47); Hemoglobin 11.1 g/dL (12.0-15.0); Mean Corp Hgb Conc 32.4 g/dL (32-36); Mean Corpuscular Hgb 31.8 pg (27.0-32.0); Mean Corpuscular Volume 98.3 fL (81-99); Mean Platelet Vol. 10.3 fl (6.2-12.0); Platelet Count 211 K/mm3 (150-450); RBC Distribution Width CV 12.4 % (11.6-14.6); RBC Distribution Width SD 44.6 fl (35.1-43.9); Red Blood Count 3.49 M/mm3 (4.2-5.4); White Blood Count 15.7 K/mm3 (4.4-11.0)
[2020-11-05 07:21] LABS: ALB/GLOB Ratio 1.1 RATIO (0.9-2.4); AST(SGOT) 12 U/L (15-37); Alanine Aminotransfer ALT/SGPT 28 U/L (13-56); Albumin, Serum 3.3 g/dL (3.2-5.0); Alkaline Phosphatase 45 U/L (45-117); Anion Gap 6 (5-15); BUN 16 mg/dL (7-18); BUN/Creat Ratio 20.9 RATIO (10-20); Calcium,Total 8.2 mg/dL (8.5-10.1); Chloride 107 mmol/L (98-107); Creatinine, Serum 0.76 mg/dL (0.55-1.02); EST Glomerular Filtration Rate 89 mL/min (>60); Est Glom Filt Rate - Afr Amer 108 mL/min (>60); Estimated Creatinine Clearance 85.82 ml/min; Glucose 105 mg/dL (74-106); Potassium 3.8 mmol/L (3.5-5.1); Protein, Total 6.3 g/dL (6.4-8.2); Sodium Level 138 mmol/L (136-145)
[2020-11-05 09:30] VITALS: BP 114/71; PULSE 89; RESP 18; TEMP 36.8; O2SAT 98
[2020-11-05] MEDS: dexAMETHasone 4 MG Tablet 6 MG PO (09:46)
[2020-11-05] MEDS: Polyethylene Glycol 3350 17 GM PACKET PO (09:47)
[2020-11-05] MEDS: Enoxaparin 40 MG/0.4 ML Syringe SC (09:47)
[2020-11-05] MEDS: Verapamil SR 240 MG Tablet 120 MG PO (09:47)
[2020-11-05] MEDS: Losartan Potassium 50 MG Tablet PO (09:47)
[2020-11-05] MEDS: Pantoprazole Sodium 40 MG Tablet PO (09:48)
--- NOTE | 2020-11-05 10:09 | DCINST_ITS ---
- Discharge Diagnoses Current Active Problems: Current Active and Chronic Problems (Last Updated 09/09/20 @ 15:26 by Joselin Acevedo) COVID-19 (Acute) NSVT (nonsustained ventricular tachycardia) (Chronic) Essential hypertension (Chronic) GERD (gastroesophageal reflux disease) (Chronic) Obesity (BMI 30.0-34.9) (Chronic) Chest pain (Acute) You will use the following diet at home:: Cardiac Your food should be the consistency of: Regular Discharge Activity: May Not Drive - Self quarantine for 20 days from 10/30/2020. Call your doctor if you observe: Fever of 101 or Higher, Coldness, Increased Pain, Numbness or Tingling, Change in Color, Inability to urinate, Inability to have a bowel movement, Using more than one pad per hour, Shortness of breath, Dizziness, Fainting spells, Swelling in the ankles, Chest pain, Prolonged hiccoughing, Increased palpitations (irregular heartbeat), Calf discomfort, Uncontrolled pain Allergies/Adverse Reactions: Allergies latex Allergy (Mild, Verified 10/30/20 17:04) IRRIATION, OR IF SHE INGEST SHE VOMITS. morphine Allergy (Verified 10/30/20 17:04) Itching Penicillins Allergy (Verified 11/03/20 20:27) Anaphylaxis meperidine [From Demerol] Adverse Reaction (Verified 10/30/20 17:04) Nausea propoxyphene [From Darvocet-N] Adverse Reaction (Verified 10/30/20 17:04) Nausea varenicline [From Chantix] Adverse Reaction (Verified 11/03/20 20:27) Turns me into a crazy person Medications to take at Discharge Ergocalciferol [Vitamin D] 50,000 unit PO MO 07/03/20 Furosemide [Lasix] 20 mg PO DAILY PRN PRN 07/03/20 Losartan Potassium 50 mg PO DAILY 07/03/20 Rizatriptan Benzoate [Maxalt] 10 mg PO .X1 PRN PRN 07/03/20 ondansetron 4 mg disintegrating tablet 4 mg PO QHS PRN tab 09/09/20 Meloxicam [Mobic] 15 mg PO DAILY PRN 10/18/20 Verapamil HCl [Verapamil Sr] 120 mg PO DAILY 10/18/20 Esomeprazole Magnesium 40 mg PO DAILY 11/03/20 Dexamethasone [Decadron] 6 mg PO DAILY@0800 #11 tab 11/05/20 Guaifenesin/Codeine [Robitussin AC] 5 ml PO Q6H PRN PRN #140 ml 11/05/20 Tizanidine HCl [Zanaflex] 4 mg PO Q8H PRN PRN #20 tab 11/05/20 The following prescriptions were given: Dexamethasone [Decadron] 6 mg PO DAILY@0800 #11 tab Transmission Status: Pending to [id number] Guaifenesin/Codeine [Robitussin AC] 5 ml PO Q6H PRN PRN #140 ml PRN Reason: COUGH Transmission Status: Received by [id number] Tizanidine HCl [Zanaflex] 4 mg PO Q8H PRN PRN #20 tab PRN Reason: muscle pain Transmission Status: Pending to [id number] Primary Care Physician: Nicky Mccall MD [Primary Care Provider] - Please follow up with your Primary Care Physician in: 2 weeks Test Results: Test results from this visit will be discussed in further detail at your follow- up appointment, if applicable.
[2020-11-05 10:17] VITALS: PULSE 74
--- NOTE | 2020-11-05 10:20 | DS.PCM_ITS ---
Discharge Date and Diagnosis - Problem List Patient Problems: Active and Suspected Problems (Last Updated 09/09/20 @ 15:26 by Joselin Acevedo) COVID-19 (Acute) Chest pain (Acute) Date of Admission: 11/03/20 Date of Discharge: 11/05/20 - Primary Discharge Diagnosis Acute Problems: Active Problems (Last Updated 09/09/20 @ 15:26 by Joselin Acevedo) COVID-19 (Acute) Chest pain (Acute) - Secondary Discharge Diagnosis Chronic Problems: Chronic Problems (Last Updated 09/09/20 @ 15:26 by Joselin Acevedo) NSVT (nonsustained ventricular tachycardia) (Chronic) Essential hypertension (Chronic) GERD (gastroesophageal reflux disease) (Chronic) Tobacco use (Chronic) Obesity (BMI 30.0-34.9) (Chronic) Hospital Course and Treatment Operations: None Summary of Care Provided: [] This 40-year-old female with history of NSVT, hypertension was admitted with chest pain and shortness of breath after she was diagnosed COVID- 19 on October 30. Chest pain is bandlike around both sides of chest wall. Mild leukocytosis with lymphopenia. 1. Acute chest pain secondary to COVID-19 virus, musculoskeletal in nature. Patient admitted on Covid cohort floor, continue Decadron, oxygen per protocol although patient currently not hypoxic. Pulse ox 95% on room air. D-dimer negative. CTPA negative for PE. Leukocytosis with lymphopenia. Calcitonin less than 0.04. CRP 7.04. Patient was seen by ID. Patient also received IV fluid normal saline as she was dehydrated. On Decadron and remdesivir. Chest pain mainly seems inflammatory/musculoskeletal. Different pain medications were tried including Toradol, Flexeril but patient did not feel relief. It was changed to oxycodone and tizanidine along with Toradol. Patient OARRS reviewed. Patient Narc score is 170. She had [facility] prescriptions, oxycodone and one time Percocet prescriptions by different prescribers in the last 2 years. Her request for Percocet or oxycodone was denied. She was given prescription of Robitussin-AC for cough. She was discharged on tizanidine and 7 more days of Decadron 6 mg daily. continue home medications on losartan. Patient also on verapamil. Patient has history of NSVT. 3. Acid reflux disease continue proton pump inhibitor 4. DVT prophylaxis?low molecular weight heparin Discharge medication reconciliation done. Discharge follow-up instructions completed. Discharge process discussed with the patient and all questions were answered to patient's satisfaction. Total time spent, exact 35 minutes on discharge meds reconciliation, examination, coordination of care with nurses and ancillary staff, review of imaging and blood test and discussion with the patient on follow-up instructions Patient Problems: Active and Suspected Problems (Last Updated 09/09/20 @ 15:26 by Joselin Acevedo) COVID-19 (Acute) Chest pain (Acute) Subjective: Patient chest pain has much improved. Complains of mainly on coughing, musculoskeletal in nature. Physical exam General: Alert, Oriented x3, Cooperative HEENT: Atraumatic, PERRLA, EOMI, Normocephalic Oral: No Gingival or Mucosal Lesions/ Ulcerations Neck: Supple, No JVD, Negative Carotid Bruits Lungs: Air entry diminished in bilateral lung bases. No crepitation/rhonchi. No reproducible chest pain. Cardiovascular: Regular rate, Regular Rhythm, Normal S1, Normal S2, No murmurs Abdomen: Bowel Sounds Present, Soft, Non Tender, Non-Distended : No renal angle tenderness. No suprapubic tenderness. Extremities: No edema, Capillary Refill Less than 3 Seconds Skin: No rashes, No breakdown Musculoskeletal: No Tenderness to Palpation of Joints or Extremities Neurological: Cranial nerves II-XII grossly intact, Deep Tendon Reflexes 2+/4 and Symmetrical, Neuro grossly intact Psych/Mental Status: Normal Affect, Appropriate. - Physical Exam Vitals/I&O's: Vital Signs Temp Pulse Resp BP Pulse Ox 98.3 F 89 18 114/71 98 11/05/20 09:30 11/05/20 09:30 11/05/20 09:30 11/05/20 09:30 11/05/20 09:30 Oxygen Delivery Method Room Air Weight: 190 lb 14.725 oz Body Mass Index (BMI) 32.8 Finger Stick Blood Glucose 93 Intake and Output for Last 24 Hours 11/03/20 11/04/20 11/05/20 23:59 23:59 23:59 Intake Total 1000 / 1000 3366.67 / 3366.67 Balance 1000 / 1000 3366.67 / 3366.67 Laboratory Results 11/05/20 06:30: WBC 15.7 H, RBC 3.49 L, Hgb 11.1 L, Hct 34.3 L, MCV 98.3, MCH 31.8, MCHC 32.4, RDW Std Deviation 44.6 H, RDW Coeff of Lynette 12.4, Plt Count 211, MPV 10.3 11/05/20 06:30: Sodium 138, Potassium 3.8, Chloride 107, Carbon Dioxide 25.0, Anion Gap 6, BUN 16, Creatinine 0.76, Estim Creat Clear Calc 85.82, Est GFR (MDRD) Af Amer 108, Est GFR (MDRD) Non-Af 89, BUN/Creatinine Ratio 20.9 H, Glucose 105, Calcium 8.2 L, Total Bilirubin 0.20, AST 12 L, ALT 28, Alkaline Phosphatase 45, Total Protein 6.3 L, Albumin 3.3, Globulin 3.0, Albumin/Globulin Ratio 1.1 Current Medications Acetaminophen (Acetaminophen 325 Mg Tablet) 650 mg PO Q4H PRN PRN PRN Reason: Pain 1-10 or Fever Last Admin: 11/05/20 03:28 Dose: 650 mg Documented by: Al Hydroxide/Mg Hydroxide (Mag Hydrox/Al Hydrox/Simeth 30 Ml Udc) 30 ml PO Q6H PRN PRN PRN Reason: Gastric Burning Albuterol Sulfate (Albuterol Sulfate 18 Gm Inhaler (200 Puffs)) 4 - 8 puff IH Q4H PRN PRN PRN Reason: Dyspnea, wheezing Last Admin: 11/05/20 09:48 Dose: 4 puff Documented by: Bisacodyl (Bisacodyl 5 Mg Tablet) 10 mg PO DAILY PRN PRN PRN Reason: Constipation Dexamethasone (Dexamethasone 4 Mg Tablet) 6 mg PO DAILY@0800 [facility] Stop: 11/12/20 08:01 Last Admin: 11/05/20 09:46 Dose: 6 mg Documented by: Docusate Sodium (Docusate Sodium 100 Mg Capsule) 200 mg PO BID PRN PRN PRN Reason: Constipation Enoxaparin Sodium (Enoxaparin 40 Mg/0.4 Ml Syringe) 40 mg SC DAILY [facility] Last Admin: 11/05/20 09:47 Dose: 40 mg Documented by: Furosemide (Furosemide 20 Mg Tablet) 20 mg PO DAILY PRN PRN PRN Reason: Swelling Guaifenesin/Codeine Phosphate (Guaifenesin/Codeine 5 Ml Udc) 10 ml PO Q6H PRN PRN PRN Reason: COUGH Last Admin: 11/05/20 09:48 Dose: 10 ml Documented by: Hydromorphone HCl (Hydromorphone 1 Mg/Ml Syringe) 1 mg IV Q3H PRN PRN PRN Reason: Pain Score 6-10 Sodium Chloride () 250 mls @ 15 mls/hr IV .[id number] PRN PRN Reason: Saline Flush Sodium Chloride () 250 mls @ 15 mls/hr IV .[id number] PRN PRN Reason: Additional IVPB Infusion Remdesivir 100 mg/ Sodium (Chloride) 250 mls @ 125 mls/hr IV DAILY [facility]; Protocol Stop: 11/08/20 11:59 Ketorolac Tromethamine (Ketorolac 15 Mg/Ml Vial) 15 mg IV Q8H PRN PRN PRN Reason: Pain Score 6-10 Stop: 11/09/20 07:59 Last Admin: 11/04/20 20:17 Dose: 15 mg Documented by: Losartan Potassium (Losartan Potassium 50 Mg Tablet) 50 mg PO DAILY [facility] Last Admin: 11/05/20 09:47 Dose: 50 mg Documented by: Metoclopramide HCl (Metoclopramide 10 Mg/2 Ml Vial) 5 mg IV Q6H PRN PRN PRN Reason: severe vomiting Miscellaneous Information (Inhaler, Assist Devices 1 Each Spacer) 1 each I NHALATION PRN PRN PRN Reason: WITH ALBUTEROL INHALER Ondansetron HCl (Ondansetron 4 Mg/2 Ml Vial) 4 mg IV Q6H PRN PRN PRN Reason: NAUSEA/VOMITING Last Admin: 11/05/20 00:39 Dose: 4 mg Documented by: Oxycodone HCl (Oxycodone 5 Mg Tablet) 10 mg PO Q6H PRN PRN PRN Reason: Pain Score 6-10 Last Admin: 11/05/20 06:50 Dose: 10 mg Documented by: Pantoprazole Sodium (Pantoprazole Sodium 40 Mg Tablet) 40 mg PO DAILY [facility] Last Admin: 11/05/20 09:48 Dose: 40 mg Documented by: Polyethylene Glycol (Polyethylene Glycol 3350 17 Gm Packet) 17 gm PO DAILY [facility] Last Admin: 11/05/20 09:47 Dose: 17 gm Documented by: Prochlorperazine Edisylate (Prochlorperazine 10 Mg/2 Ml Vial) 10 mg IV Q6H PRN PRN PRN Reason: Nausea/Vomiting Last Admin: 11/05/20 06:16 Dose: 10 mg Documented by: Sodium Chloride (0.9% Saline Lock 10 Ml Syringe) 10 - 40 ml IV UD PRN PRN Reason: SALINE FLUSH Last Admin: 11/04/20 14:04 Dose: 10 ml Documented by: Tizanidine HCl (Tizanidine Hcl 2 Mg Tablet) 4 mg PO Q8H PRN PRN PRN Reason: muscle pain Last Admin: 11/05/20 03:29 Dose: 4 mg Documented by: Verapamil HCl (Verapamil Sr 240 Mg Tablet) 120 mg PO DAILY [facility] Last Admin: 11/05/20 09:47 Dose: 120 mg Documented by: Discharge Activity: May Not Drive - Self quarantine for 20 days from 10/30/2020. Call your doctor if you observe: Fever of 101 or Higher, Coldness, Increased Pain, Numbness or Tingling, Change in Color, Inability to urinate, Inability to have a bowel movement, Using more than one pad per hour, Shortness of breath, Dizziness, Fainting spells, Swelling in the ankles, Chest pain, Prolonged hiccoughing, Increased palpitations (irregular heartbeat), Calf discomfort, Uncontrolled pain Home Medications: Medications to take at Discharge Ergocalciferol [Vitamin D] 50,000 unit PO MO 07/03/20 Furosemide [Lasix] 20 mg PO DAILY PRN PRN 07/03/20 Losartan Potassium 50 mg PO DAILY 07/03/20 Rizatriptan Benzoate [Maxalt] 10 mg PO .X1 PRN PRN 07/03/20 ondansetron 4 mg disintegrating tablet 4 mg PO QHS PRN tab 09/09/20 Meloxicam [Mobic] 15 mg PO DAILY PRN 10/18/20 Verapamil HCl [Verapamil Sr] 120 mg PO DAILY 10/18/20 Esomeprazole Magnesium 40 mg PO DAILY 11/03/20 Dexamethasone [Decadron] 6 mg PO DAILY@0800 #11 tab 11/05/20 Guaifenesin/Codeine [Robitussin AC] 5 ml PO Q6H PRN PRN #140 ml 11/05/20 Tizanidine HCl [Zanaflex] 4 mg PO Q8H PRN PRN #20 tab 11/05/20 Following Prescriptions Were Given to Patient: Dexamethasone [Decadron] 6 mg PO DAILY@0800 #11 tab Transmission Status: [id number] Guaifenesin/Codeine [Robitussin AC] 5 ml PO Q6H PRN PRN #140 ml PRN Reason: COUGH Transmission Status: Received by [id number] Tizanidine HCl [Zanaflex] 4 mg PO Q8H PRN PRN #20 tab PRN Reason: muscle pain Transmission Status: Received by [id number] Primary Care Physician: Nicky Mccall MD [Primary Care Provider] - Please follow up with your Primary Care Physician in: 2 weeks Medical Necessity - Tobacco Use Smoking Status: Current every day smoker Tobacco Use: Cigarettes Meaningful Use Info Meaningful Use Diagnoses (Choose all that apply): None applicable Inpatient E&M: [id number] [facility]
[2020-11-05] MEDS: 0.9% Saline Lock 10 ML Syringe IV (10:37)
[2020-11-05 13:45] VITALS: BP 128/75; PULSE 85; RESP 18; TEMP 36.7; O2SAT 98
== END 2020-11-05 14:00 | disposition home or self-care (01) | DRG 178 ==
LOC: ED 19:30 → MS2 20:33
PROVIDERS: Internal Medicine Infectious Disease; Admitting Provider Family Medicine; Emergency Provider Emergency Medicine; PCP Internal Medicine; Visit Provider Internal Medicine
DX: U07.1 COVID-19 (principal); I47.2 Ventricular tachycardia; R09.02 Hypoxemia; R07.89 Other chest pain; E86.0 Dehydration; I10 Essential (primary) hypertension; E66.9 Obesity, unspecified; K21.9 Gastro-esophageal reflux disease without esophagitis; Z79.899 Other long term (current) drug therapy; Z68.32 Body mass index [BMI] 32.0-32.9, adult; F17.210 Nicotine dependence, cigarettes, uncomplicated; D72.829 Elevated white blood cell count, unspecified
CPT/HCPCS: 36415; 71275; 80048; 80053; 82728; 83735; 84075; 84100; 84145; 84484; 85025; 85027; 85379; 85610; 86140; 93005; 99251; 99285; 99406; J7030; J7050; Q9967; A4216; G0463; J2405

== ENCOUNTER → 2020-11-19 10:07 | Outpatient (CLI) | payer BC, SELFPAY ==
[2020-11-03 20:23] VITALS: BMI 32.8
[2020-11-19 11:05] LABS: Erythrocyte Sedimentation Rate 1 mm/hr (0-30)
[2020-11-19 11:08] LABS: Absolute Lymphocyte Count 4.75 X10^3/uL (0.83-4.51); Absolute Neutrophil Count 9.3 X10^3/uL (2.0-7.7); Basophil# 0.08 X10^3/uL; Basophil% 0.5 % (0-1); Eosinophils% 1.3 % (0-5); Hematocrit 39.9 % (37-47); Lymphocyte # 4.75 X10^3/ul (4.0); Lymphocyte % 30.2 % (19-41); Mean Corp Hgb Conc 32.6 g/dL (32-36); Mean Corpuscular Hgb 32.5 pg (27.0-32.0); Mean Corpuscular Volume 99.8 fL (81-99); Mean Platelet Vol. 9.7 fl (6.2-12.0); Monocyte# 1.08 X10^3/uL; Monocyte% 6.9 % (0-10); NRBC Flagged by Analyzer 0 % (0-5); Neutrophil # 9.28 X10^3/uL (2.7-7.7); Neutrophil % 58.9 % (47-70); Platelet Count 235 K/mm3 (150-450); RBC Distribution Width CV 12.5 % (11.6-14.6); RBC Distribution Width SD 45.4 fl (35.1-43.9); White Blood Count 15.7 K/mm3 (4.4-11.0)
[2020-11-19 11:19] LABS: D-Dimer Quantitative (DVT/PE) <= 0.27 FEU/ug/m (0.27-0.49)
[2020-11-19 11:28] LABS: Anion Gap 6 (5-15); BUN 22 mg/dL (7-18); BUN/Creat Ratio 31.2 RATIO (10-20); CRP < 2.90 mg/L (0.0-3.0); Calcium,Total 8.8 mg/dL (8.5-10.1); Chloride 106 mmol/L (98-107); Creatinine, Serum 0.71 mg/dL (0.55-1.02); EST Glomerular Filtration Rate 98 mL/min (>60); Est Glom Filt Rate - Afr Amer 118 mL/min (>60); Ferritin 119 ng/mL (8-252); Glucose 78 mg/dL (74-106); Potassium 3.9 mmol/L (3.5-5.1); Rheumatoid Factor < 10.0 IU/mL (<15); Sodium Level 137 mmol/L (136-145)
== END ==
LOC: LAB 10:09
PROVIDERS: PCP Internal Medicine; Visit Provider Surgery
DX: R19.06 Epigastric swelling, mass or lump (principal); U07.1 COVID-19; M25.50 Pain in unspecified joint
CPT/HCPCS: 36415; 80048; 82728; 85025; 85379; 85652; 86038; 86140; 86431

== ENCOUNTER 2021-05-09 21:44 | Emergency (ER) | payer BC, SELFPAY ==
[2020-11-03 20:23] VITALS: BMI 32.8
[2021-05-09 21:46] VITALS: BP 151/116; PULSE 116; RESP 20; TEMP 36.8; O2SAT 100; BMI 35.2
--- NOTE | 2021-05-09 22:23 | EKG12_ITS ---
Test Reason : CP Blood Pressure : / mmHG Vent. Rate : 120 BPM Atrial Rate : 120 BPM P-R Int : 144 ms QRS Dur : 070 ms QT Int : 316 ms P-R-T Axes : 045 052 045 degrees QTc Int : 446 ms Sinus tachycardia Otherwise normal ECG Confirmed by LARRY CHAVES, JAIDEN ([id number]), editorial project manager LAZARO BROWN ([id number]) on 05/14/2021 1:04:34 PM Referred By: HEIKE Confirmed By:JAIDEN JUAREZ MD
[2021-05-09] MEDS: 0.9% Normal Saline 1,000 ML 1000 ML IV (22:27)
[2021-05-09] MEDS: LORazepam 0.5 MG Tablet PO (22:27)
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
[2021-05-09 22:29] LABS: Absolute Lymphocyte Count 2.48 X10^3/uL (0.83-4.51); Absolute Neutrophil Count 7.9 X10^3/uL (2.0-7.7); Basophil# 0.08 X10^3/uL; Basophil% 0.7 % (0-1); Eosinophil# 0.06 X10^3/uL; Eosinophils% 0.5 % (0-5); Hematocrit 43.7 % (37-47); Hemoglobin 14.2 g/dL (12.0-15.0); Lymphocyte # 2.48 X10^3/ul (0.83-4.51); Lymphocyte % 22.4 % (19-41); Mean Corp Hgb Conc 32.5 g/dL (32-36); Mean Corpuscular Hgb 30.9 pg (27.0-32.0); Mean Corpuscular Volume 95.2 fL (81-99); Mean Platelet Vol. 9.8 fl (6.2-12.0); Monocyte# 0.42 X10^3/uL; Monocyte% 3.8 % (0-10); NRBC Flagged by Analyzer 0 % (0-5); Neutrophil # 7.91 X10^3/uL (2.7-7.7); Neutrophil % 71.3 % (47-70); Platelet Count 317 K/mm3 (150-450); RBC Distribution Width CV 12.1 % (11.6-14.6); RBC Distribution Width SD 42.7 fl (35.1-43.9); Red Blood Count 4.59 M/mm3 (4.2-5.4); White Blood Count 11.1 K/mm3 (4.4-11.0)
--- NOTE | 2021-05-09 22:32 | RAD_ITS ---
HISTORY: Chest tightness EXAMINATION/TECHNIQUE: XR Chest 1 View: 1 view COMPARISON: 10/30/20 FINDINGS: LINES/DEVICES: None. LUNGS: No consolidation, edema or effusion. No pneumothorax. MEDIASTINUM AND CARDIOVASCULAR STRUCTURES: Cardiac silhouette not enlarged. Central airways and mediastinal contour are unremarkable. BONES AND SOFT TISSUES: No acute bony abnormalities. RAD/Chest 1 View (Portable) IMPRESSION: No radiographic evidence of acute cardiopulmonary disease. at 2307 Reported and signed by: Russ Lewis MD Electronically Signed: Russ Lewis MD at 23:06 EDT Tel , Service support ,
[2021-05-09 22:48] LABS: Anion Gap 8 (5-15); BUN 12 mg/dL (7-18); BUN/Creat Ratio 14.7 RATIO (10-20); Chloride 109 mmol/L (98-107); Creatinine, Serum 0.81 mg/dL (0.55-1.02); EST Glomerular Filtration Rate 83 mL/min (>60); Est Glom Filt Rate - Afr Amer 100 mL/min (>60); Estimated Creatinine Clearance 79.72 ml/min; Glucose 91 mg/dL (74-106); Potassium 4.1 mmol/L (3.5-5.1); Sodium Level 139 mmol/L (136-145); Troponin-I HS 3.2 pg/mL (3.0-53.7)
[2021-05-09 23:27] VITALS: BP 137/106; PULSE 115; RESP 17
== END 2021-05-09 23:34 | disposition home or self-care (01) ==
PROVIDERS: Emergency Provider Emergency Medicine; PCP Internal Medicine
DX: F41.9 Anxiety disorder, unspecified (principal); R07.89 Other chest pain; I10 Essential (primary) hypertension; Z87.891 Personal history of nicotine dependence; Z79.899 Other long term (current) drug therapy
CPT/HCPCS: 71045; 80048; 84484; 85025; 93005; 99285; J7030; A4216

== ENCOUNTER 2021-05-21 13:47 | Emergency (ER) | payer BC, SELFPAY ==
[2021-05-21] VITALS (10 sets, daily range): BP systolic 113–140; BP diastolic 78–106; PULSE 80–117; RESP 16–22; TEMP 36.9; O2SAT 96–100; BMI 34.2
--- NOTE | 2021-05-21 13:56 | EKG12_ITS ---
Test Reason : CP Blood Pressure : / mmHG Vent. Rate : 114 BPM Atrial Rate : 114 BPM P-R Int : 142 ms QRS Dur : 070 ms QT Int : 324 ms P-R-T Axes : 064 061 063 degrees QTc Int : 446 ms Sinus tachycardia Otherwise normal ECG Confirmed by LARRY CHAVES, JAIDEN ([id number]), visual effects editor LAZARO BROWN ([id number]) on 05/26/2021 8:47:03 AM Referred By: Confirmed By:JAIDEN JUAREZ MD
--- NOTE | 2021-05-21 13:56 | RAD_ITS ---
STUDY: X-RAY CHEST REASON FOR EXAM: Female, 41 years old. Acute substernal chest pain TECHNIQUE: Single AP portable view of the chest. COMPARISON: 05/09/2021 FINDINGS: EKG leads overlie the chest The lungs are clear and expanded. There is no demonstrated pleural abnormality. Normal size heart. Normal mediastinum and simone. Normal visualized pulmonary arteries. Normal visualized aortic arch and descending thoracic aorta. Normal visualized thoracic spine. Normal visualized ribs, clavicles, and shoulders. There is no demonstrated abnormality of the visualized soft tissue structures of the upper abdomen. RAD/Chest 1 View (Portable) IMPRESSION: Normal x-ray examination of the chest. Electronically Signed: Felix Davis MD at 14:16 EDT , Service support ,
--- NOTE | 2021-05-21 14:09 | ED.VIS.CHEST ---
HPI History of Present Illness Chief Complaint: Chest Pain Informant: patient Onset/Context/Timing Onset: Today Activity at onset: gradual Timing: Waxes and wanes Quality: Positive for - (Squeezing over anterior chest, sharp pain in the right shoulder and neck.) Current Severity: Moderate Maximum Severity: Severe Worsened By: Nothing Relieved By: Nothing Associated Symptoms: Positive for Dyspnea and Lightheadedness Narrative Narrative: Patient presents secondary to chest pain as well as right shoulder and neck pain. Patient states she was sitting in her desk approximate 90 minutes prior to arrival when she developed a squeezing sensation over her chest and sharp pain to the right shoulder. She does report lightheadedness. Patient does have a history of nonsustained V. tach and states her symptoms have been well controlled on diltiazem. She has report of abnormal stress test in the computer. She states she did undergo a heart cath several years ago but has no stents. No recent change in activity tolerance. PFSH PFSH Medical History Abdominal pain Abnormal stress test Anxiety and depression Chest pain Essential hypertension GERD (gastroesophageal reflux disease) Hepatic adenoma IBS (irritable bowel syndrome) NSVT (nonsustained ventricular tachycardia) Obesity (BMI 30.0-34.9) Partial obstruction of small intestine RUQ pain Tobacco use Home Medications ergocalciferol (vitamin D2) 50,000 unit PO MO 07/03/20 [History Last Taken 11/03/20] furosemide 20 mg PO DAILY PRN PRN 07/03/20 [History Last Taken Unknown] losartan 50 mg PO DAILY 07/03/20 [History Last Taken 11/02/20] rizatriptan 10 mg PO .X1 PRN PRN 07/03/20 [History Last Taken Unknown] ondansetron 4 mg disintegrating tablet 4 mg PO QHS PRN tab 09/09/20 [History Last Taken Unknown] verapamil 120 mg PO DAILY 10/18/20 [History Last Taken 11/02/20] ondansetron 4 mg PO Q8H PRN #10 tab 05/21/21 [Rx Last Taken Unknown] oxycodone-acetaminophen [Percocet] 1 tab PO Q6H PRN 3 Days #10 tab 05/21/21 [Rx Last Taken Unknown] Allergy/AdvReac Type Severity Reaction Status Date / Time latex Allergy Mild IRRIATION, Verified 05/21/21 14:19 OR IF SHE INGEST SHE VOMITS. morphine Allergy Itching Verified 05/21/21 14:19 Penicillins Allergy Anaphylaxis Verified 05/21/21 14:19 meperidine [From Demerol] AdvReac Nausea Verified 05/21/21 14:19 propoxyphene AdvReac Nausea Verified 05/21/21 14:19 [From Darvocet-N] [email or web address] [From Chantix] AdvReac Turns me Verified 05/21/21 14:19 into a crazy person Surgical History History of carpal tunnel release History of surgery of liver Status post appendectomy Status post cholecystectomy Status post hysterectomy Social History Smoking Status: Former smoker alcohol intake: current details: occasional substance use type: does not use ROS ROS ED Constitutional Constitutional ED: Denies chills or fever(s) Eyes Eyes: Denies change in vision ENT ENT ED: Denies sore throat Cardiovascular Cardiovascular: Reports chest pain Respiratory/Chest Respiratory/Chest: Reports dyspnea; Denies cough Gastrointestinal Gastrointestinal: Denies abdominal pain, diarrhea, nausea or vomiting Genitourinary Genitourinary ED: Denies dysuria Musculoskeletal Musculoskeletal: Reports arthralgias and neck pain; Denies back pain Integumentary Denies rash Neurologic Neurologic: Denies headache(s) or weakness Psychiatric Psychiatric: Denies anxiety or depression Allergic/Immunologic Allergic/Immunologic ED: Denies urticaria EXAM Physical Exam Const Vital Signs: 05/21/21 13:48 05/21/21 14:17 05/21/21 14:47 Temperature 98.5 F Temperature Source Oral Pulse Rate 117 H 92 Respiratory Rate 20 H 22 H Respiratory Effort Normal Non-Labored Blood Pressure 136/94 H 140/106 H Blood Pressure Mean 108 117 Pulse Ox 98 96 99 Oxygen Delivery Method Room Air Room Air Room Air 05/21/21 15:00 05/21/21 16:00 05/21/21 17:00 Temperature Temperature Source Pulse Rate 89 87 104 H Respiratory Rate 19 H 20 H 20 H Respiratory Effort Blood Pressure 120/80 121/79 H 136/84 H Blood Pressure Mean 93 93 101 Pulse Ox 98 100 98 Oxygen Delivery Method Room Air Room Air Room Air 05/21/21 18:17 05/21/21 19:00 05/21/21 20:00 Temperature Temperature Source Pulse Rate 80 89 87 Respiratory Rate 16 18 16 Respiratory Effort Blood Pressure 119/81 H 121/84 H 113/78 Blood Pressure Mean 93 96 89 Pulse Ox 97 100 99 Oxygen Delivery Method Room Air Room Air Room Air 05/21/21 21:42 Temperature Temperature Source Pulse Rate 81 Respiratory Rate 18 Respiratory Effort Blood Pressure 125/82 H Blood Pressure Mean Pulse Ox 98 Oxygen Delivery Method Positive well nourished and well developed General Appearance ED: well developed HEENT Reports normocephalic and head/scalp atraumatic Eyes PERRL and EOMs intact bilaterally Neck supple Chest Wall inspection of chest normal and palpation of chest normal Resp normal respiratory effort and clear to auscultation bilaterally Cardio regular rate and regular rhythm GI normal to inspection, nondistended, normoactive bowel sounds Palpation: soft Extremity normal to inspection Neuro oriented x3 and no sensory deficits noted Sensorium / Orientation: alert Motor Exam: strength 5/5 throughout Psych mental status grossly normal Skin no rashes or lesions noted Heart Score History: Moderately Suspicious ECG: Normal Age: </= 45 years Risk Factors: No Risk Factors Troponin: </= Normal Limit Score: 1 MDM MDM MDM Narrative Medical decision making narrative: Labs, EKG, chest x-ray obtained. Patient was given aspirin along with a dose of Dilaudid for pain control. Lab Data Attestation: I reviewed the patient's lab results. Labs: Laboratory Results - last 24 hr 05/21/21 05/21/21 05/21/21 13:55 13:55 14:45 WBC 11.1 H RBC 4.46 Hgb 13.9 Hct 42.0 MCV 94.2 MCH 31.2 MCHC 33.1 RDW Std Deviation 42.4 RDW Coeff of Lynette 12.1 Plt Count 281 MPV 10.4 Immature Gran % (Auto) 1.400 H Neut % (Auto) 64.6 Lymph % (Auto) 25.3 [place] % (Auto) 6.8 Eos % (Auto) 1.4 Baso % (Auto) 0.5 Absolute Neuts (auto) 7.1 Absolute Lymphs (auto) 2.80 Nucleated RBC % 0 D-Dimer Quant (PE/DVT) <= 0.27 Sodium 137 Potassium 3.7 Chloride 103 Carbon Dioxide 26.0 Anion Gap 8 BUN 10 Creatinine 0.69 Estim Creat Clear Calc 93.59 Est GFR (MDRD) Af Amer 120 Est GFR (MDRD) Non-Af 100 BUN/Creatinine Ratio 14.4 Glucose 140 H Calcium 8.9 Total Bilirubin Direct Bilirubin AST ALT Alkaline Phosphatase Troponin I High Sens < 3.0 L Total Protein Albumin Globulin 05/21/21 05/21/21 15:50 15:50 WBC RBC Hgb Hct MCV MCH MCHC RDW Std Deviation RDW Coeff of Lynette Plt Count MPV Immature Gran % (Auto) Neut % (Auto) Lymph % (Auto) [place] % (Auto) Eos % (Auto) Baso % (Auto) Absolute Neuts (auto) Absolute Lymphs (auto) Nucleated RBC % D-Dimer Quant (PE/DVT) Sodium Potassium Chloride Carbon Dioxide Anion Gap BUN Creatinine Estim Creat Clear Calc Est GFR (MDRD) Af Amer Est GFR (MDRD) Non-Af BUN/Creatinine Ratio Glucose Calcium Total Bilirubin 0.30 Direct Bilirubin 0.08 AST 27 ALT 65 H Alkaline Phosphatase 60 Troponin I High Sens < 3.0 L Total Protein 7.2 Albumin 3.8 Globulin 3.4 Radiography Chest X-Ray - ED: 1 View, Read by ED Physician, Normal, Heart, Lungs and Mediastinum Diagnostic Testing: Radiology Impression Chest X-Ray 05/21/21 13:56 IMPRESSION: Normal x-ray examination of the chest. Electronically Signed: Felix Davis MD at 14:16 EDT , Service support , Abdomen/Pelvis CT 05/21/21 17:11 IMPRESSION: 1. Enlarged fatty infiltrated liver. This is stable scar in segment 8 consistent with the area of prior ablation. 2. No evidence of acute intra-abdominal or pelvic process. There is no major interval change when compared to the prior exam. Electronically Signed: Ron Painter DO at 18:01 EDT Tel [phone], Service support , EKG Initial EKG: Attestation: I personally reviewed and interpreted this EKG as follows: Interpretation: Sinus Tachycardia (Sinus tachycardia at 114. No acute ischemia.) Treatment and Re-Evaluation Comments:: On repeat evaluation patient's heart rate is improved into the 80s. She now, however, states that she feels very dizzy and lightheaded. Lab work is discussed with her. She has a negative troponin and D-dimer. Chest x-ray per my interpretation reveals no infiltrate. Radiology interpreted patient is reviewed. Patient is given a dose of meclizine for her dizziness. 2-hour repeat troponin is ordered and negative. On repeat evaluation patient states the pain that was in her chest area is now down in the right upper quadrant. She has had problems with her liver previously including an ablation in her liver. CT scan of the abdomen and pelvis as well as LFTs are added. Patient is given an additional dose of pain medication. Final test results are discussed with the patient. No acute findings are noted on her CT, unchanged from prior. LFTs are unremarkable. Patient be given a short course of analgesics for home and will follow up closely with her doctor. Discharge Plan Triage Chief Complaint: Chest Pain ED Provider: Sakshi Akhtar Dx/Rx/DC Orders Clinical Impression: Chest pain, Abdominal pain Instructions: ED Abdominal Pain Unkn Cause Fem, ED Chest Pain, Uncertain Cause Prescriptions: New oxycodone-acetaminophen [Percocet] 5-325 mg tablet 1 tab PO Q6H PRN (Reason: pain) 3 Days Qty: 10 RF: 0 ondansetron 4 mg tablet,disintegrating 4 mg PO Q8H PRN (Reason: nausea and vomiting) Qty: 10 RF: 0 No Action losartan 50 MG tablet 50 mg PO DAILY RF: 0 rizatriptan 10 MG tablet 10 mg PO .X1 PRN PRN (Reason: migraines) RF: 0 furosemide 20 MG tablet 20 mg PO DAILY PRN PRN (Reason: Swelling) RF: 0 ergocalciferol (vitamin D2) 50,000 UNIT capsule 50,000 unit PO MO RF: 0 ondansetron 4 mg tablet,disintegrating 4 mg PO QHS PRN (Reason: Nausea) RF: 0 verapamil 120 MG capsule,ext rel. pellets 24 hr 120 mg PO DAILY RF: 0 Primary Care Provider: Nicyk Mccall Referrals: Nicky Mccall MD [Primary Care Provider] - 3-5 Days if not improving Disposition Disposition: Home, Self Care Discharge Date/Time: 05/21/21 21:43
[2021-05-21] MEDS: Ondansetron 4 MG/2 ML Vial IV ×2 (14:20→17:21)
[2021-05-21] MEDS: HYDROmorphone 1 MG/ML Syringe 0.5 MG IV (14:23)
[2021-05-21] MEDS: 0.9% Normal Saline 1,000 ML 150 ML IV (14:24)
[2021-05-21 14:46] LABS: Absolute Neutrophil Count 7.1 X10^3/uL (2.0-7.7); Basophil# 0.06 X10^3/uL; Basophil% 0.5 % (0-1); Eosinophil# 0.15 X10^3/uL; Eosinophils% 1.4 % (0-5); Hemoglobin 13.9 g/dL (12.0-15.0); Lymphocyte % 25.3 % (19-41); Mean Corp Hgb Conc 33.1 g/dL (32-36); Mean Corpuscular Hgb 31.2 pg (27.0-32.0); Mean Corpuscular Volume 94.2 fL (81-99); Mean Platelet Vol. 10.4 fl (6.2-12.0); Monocyte# 0.75 X10^3/uL; Monocyte% 6.8 % (0-10); NRBC Flagged by Analyzer 0 % (0-5); Neutrophil # 7.13 X10^3/uL (2.7-7.7); Neutrophil % 64.6 % (47-70); Platelet Count 281 K/mm3 (150-450); RBC Distribution Width CV 12.1 % (11.6-14.6); RBC Distribution Width SD 42.4 fl (35.1-43.9); Red Blood Count 4.46 M/mm3 (4.2-5.4); White Blood Count 11.1 K/mm3 (4.4-11.0)
[2021-05-21 15:01] LABS: Anion Gap 8 (5-15); BUN 10 mg/dL (7-18); BUN/Creat Ratio 14.4 RATIO (10-20); Calcium,Total 8.9 mg/dL (8.5-10.1); Chloride 103 mmol/L (98-107); Creatinine, Serum 0.69 mg/dL (0.55-1.02); EST Glomerular Filtration Rate 100 mL/min (>60); Est Glom Filt Rate - Afr Amer 120 mL/min (>60); Estimated Creatinine Clearance 93.59 ml/min; Glucose 140 mg/dL (74-106); Potassium 3.7 mmol/L (3.5-5.1); Sodium Level 137 mmol/L (136-145); Troponin-I HS < 3.0 pg/mL (3.0-53.7)
[2021-05-21 15:05] LABS: D-Dimer Quantitative (DVT/PE) <= 0.27 FEU/ug/m (0.27-0.49)
[2021-05-21] MEDS: Meclizine HCl 25 MG Tablet PO (15:24)
[2021-05-21 16:20] LABS: Troponin-I HS < 3.0 pg/mL (3.0-53.7)
--- NOTE | 2021-05-21 17:11 | CT_ITS ---
STUDY: CT ABDOMEN AND PELVIS WITH CONTRAST REASON FOR EXAM: Female, 41 years old. Right upper quadrant pain. History of liver ablation for hepatic mass 2019. History of appendectomy, cholecystectomy and history delay. RADIATION DOSAGE (If Supplied By Facility): CTDIvol = ( 13.9 ) mGy, DLP = ( 1134.22 ) mGycm TECHNIQUE: Transaxial images were obtained from the dome of the diaphragm to the symphysis pubis without oral contrast. IV 100mL Isovue-300 was administered. Sagittal and coronal images were reconstructed. Individualized dose optimization techniques were used for this CT. COMPARISON: 10/26/2019. FINDINGS: The visualized lung bases are unremarkable. The visualized portions of the heart are within normal limits. The liver is enlarged and diffusely fatty infiltrated. Within the lateral aspect of segment 8 there is a 3.8 x 1.8 x 2.1 cm low-attenuation focus with mild peripheral enhancement. No other hepatic masses are seen. There are surgical clips in the gallbladder fossa consistent with a prior cholecystectomy. Normal spleen. Normal pancreas. Normal bilateral adrenal glands. Normal right kidney. Normal left kidney. Normal visualized stomach. Normal small intestine. Normal colon. There are surgical clips in the region of the appendix consistent with a prior appendectomy. Normal abdominal aorta. Normal inferior vena cava. Normal retroperitoneum. Normal urinary bladder. Unremarkable vaginal cuff. There is no pelvic lymphadenopathy. No free air or free fluid is seen within the peritoneal cavity. Small umbilical hernia of omental fat. Abdominal wall is otherwise grossly unremarkable. Normal osseous structures. CT/Abdomen/Pelvis W IV Cont ONLY IMPRESSION: 1. Enlarged fatty infiltrated liver. This is stable scar in segment 8 consistent with the area of prior ablation. 2. No evidence of acute intra-abdominal or pelvic process. There is no major interval change when compared to the prior exam. Electronically Signed: Ron Painter DO at 18:01 EDT Tel [phone], Service support ,
[2021-05-21] MEDS: HYDROmorphone 0.5 MG/0.5 ML SYRINGE IV (17:21)
[2021-05-21 17:49] LABS: AST(SGOT) 27 U/L (15-37); Alanine Aminotransfer ALT/SGPT 65 U/L (13-56); Albumin, Serum 3.8 g/dL (3.2-5.0); Alkaline Phosphatase 60 U/L (45-117); Bilirubin, Direct 0.08 mg/dL (0.00-0.30); Globulin 3.4 g/dL (2.2-4.2); Protein, Total 7.2 g/dL (6.4-8.2)
[2021-05-21] MEDS: oxyCODONE 5 MG Tablet PO (19:39)
== END 2021-05-21 21:43 | disposition home or self-care (01) ==
PROVIDERS: Emergency Provider Emergency Medicine; PCP Internal Medicine
DX: R07.9 Chest pain, unspecified (principal); R10.9 Unspecified abdominal pain; M54.2 Cervicalgia; M25.511 Pain in right shoulder; R42 Dizziness and giddiness; I10 Essential (primary) hypertension; K58.9 Irritable bowel syndrome, unspecified; K21.9 Gastro-esophageal reflux disease without esophagitis; E66.9 Obesity, unspecified; F32.9 Major depressive disorder, single episode, unspecified; F41.9 Anxiety disorder, unspecified; Z79.899 Other long term (current) drug therapy; Z87.891 Personal history of nicotine dependence
CPT/HCPCS: 71045; 74177; 80048; 80076; 84484; 85025; 85379; 93005; 96361; 96374; 96375; 96376; 99284; J7030; Q9967; J2405

== ENCOUNTER 2021-05-25 14:39 | Emergency (ER) | payer BC, SELFPAY ==
[2021-05-21 13:48] VITALS: BMI 34.2
[2021-05-25 14:40] VITALS: BP 136/90; PULSE 108; RESP 18; TEMP 36.2; O2SAT 99; BMI 33.7
[2021-05-25 14:43] VITALS: BP 136/90; PULSE 108; RESP 18; TEMP 36.2; O2SAT 99
--- NOTE | 2021-05-25 15:06 | EX.ED.DYSGE1 ---
HPI History of Present Illness Chief Complaint: Abd Pain Informant: patient Narrative Narrative: Patient is a 41-year-old female who presents to the emergency department for abdominal pain nausea/vomiting, diarrhea and starting with some darker stools today. She was seen in the emergency department on . She was having similar symptoms then. She states that her pain has not been improving. Has not been significantly getting worse. She called her PCPs office who referred her to the emergency department again. She has had chills but no fevers. She denies any chest pain or shortness of breath. She denies any urinary symptoms. She does have a history of appendectomy, hysterectomy, cholecystectomy. She was previously on Protonix but was taken off because her insurance stopped covering it multiple months ago. She has followed with a GI specialist before and received EGDs as well as colonoscopies before. PFSH PFSH Medical History Abdominal pain Abnormal stress test Anxiety and depression Chest pain Essential hypertension GERD (gastroesophageal reflux disease) Hepatic adenoma IBS (irritable bowel syndrome) NSVT (nonsustained ventricular tachycardia) Obesity (BMI 30.0-34.9) Partial obstruction of small intestine RUQ pain Tobacco use Home Medications ergocalciferol (vitamin D2) 50,000 unit PO MO 07/03/20 [History Last Taken 11/03/20] furosemide 20 mg PO DAILY PRN PRN 07/03/20 [History Last Taken Unknown] rizatriptan 10 mg PO .X1 PRN PRN 07/03/20 [History Last Taken Unknown] verapamil 120 mg PO DAILY 10/18/20 [History Last Taken 11/02/20] ondansetron 4 mg PO Q8H PRN #10 tab 05/21/21 [Rx Last Taken Unknown] oxycodone-acetaminophen [Percocet] 1 tab PO Q6H PRN 3 Days #10 tab 05/21/21 [Rx Last Taken Unknown] diltiazem HCl 120 mg PO DAILY 05/25/21 [History Last Taken Unknown] pantoprazole [Protonix] 40 mg PO DAILY #30 tab 05/25/21 [Rx Last Taken Unknown] Allergy/AdvReac Type Severity Reaction Status Date / Time latex Allergy Mild IRRIATION, Verified 05/21/21 14:19 OR IF SHE INGEST SHE VOMITS. morphine Allergy Itching Verified 05/21/21 14:19 Penicillins Allergy Anaphylaxis Verified 05/21/21 14:19 meperidine [From Demerol] AdvReac Nausea Verified 05/21/21 14:19 propoxyphene AdvReac Nausea Verified 05/21/21 14:19 [From Darvocet-N] [email or web address] [From Chantix] AdvReac Turns me Verified 05/21/21 14:19 into a crazy person Surgical History History of carpal tunnel release History of surgery of liver Status post appendectomy Status post cholecystectomy Status post hysterectomy Social History Smoking Status: Former smoker alcohol intake: current details: occasional substance use type: does not use ROS ROS ED Constitutional Constitutional ED: Reports chills; Denies fever(s) Eyes Eyes: Denies change in vision ENT ENT ED: Denies epistaxis or rhinorrhea Cardiovascular Cardiovascular: Denies chest pain or palpitations Respiratory/Chest Respiratory/Chest: Denies cough or dyspnea Gastrointestinal Gastrointestinal: Reports abdominal pain, diarrhea, nausea and vomiting; Denies constipation Genitourinary Genitourinary ED: Denies dysuria, hematuria or urinary frequency Musculoskeletal Musculoskeletal: Denies back pain or neck pain Integumentary Denies rash Neurologic Neurologic: Denies dizziness, headache(s) or weakness EXAM Physical Exam Const Vital Signs: 05/25/21 14:40 05/25/21 14:43 05/25/21 17:27 Temperature 97.1 F L 97.1 F L Temperature Source Temporal Temporal Pulse Rate 108 H 108 H 93 Respiratory Rate 18 18 15 Blood Pressure 136/90 H 136/90 H 129/87 H Blood Pressure Mean 105 105 Pulse Ox 99 99 99 Oxygen Delivery Method Room Air Room Air Positive well nourished and well developed General Appearance ED: well developed and NAD HEENT Reports normocephalic and head/scalp atraumatic Eyes PERRL and EOMs intact bilaterally Neck supple General: Negative for tenderness Chest Wall inspection of chest normal Resp normal respiratory effort and clear to auscultation bilaterally Auscultation: Negative for rales, rhonchi or wheezes Cardio regular rhythm and no murmurs Rate: tachycardic GI normal to inspection, nondistended, normoactive bowel sounds GI Narrative: Mild diffuse tenderness. Palpation: soft; Negative for guarding or rebound tenderness present Back/Spine no CVA tenderness Extremity normal to inspection General Extremety ED: Negative for edema General Extremity: Negative for edema Neuro Sensorium / Orientation: alert Motor Exam: strength 5/5 throughout Psych mental status grossly normal Skin no rashes or lesions noted MDM MDM MDM Narrative Medical decision making narrative: Patient presents to the emergency department for continued abdominal pain, nausea, vomiting, diarrhea. She feels like she had darker stools today. On arrival to the emergency department she is not hypotensive. She is mildly tachycardic. Otherwise normal vital signs. She has a benign exam except for some abdominal tenderness diffusely to deep palpation. No peritoneal signs. Will recheck basic lab work. Will treat symptomatically with a GI cocktail, Protonix and Zofran. On reevaluation patient states that the GI cocktail did help. She still having some pain going down her sides. Urinalysis added which did not reveal any acute abnormality. She is given a dose of Bentyl for this. Do not feel repeat CT imaging is necessary at this time. Her lab work showed mild elevation of her white blood cell count which is similar to her previous labs. Her hemoglobin did not have a significant drop. She does not have any acute electrolyte abnormality. Her BUN is not elevated. Her AST and ALT are mildly high. At this time will treat patient for a suspected ulcer. She is given a prescription for Protonix. She does have a GI doctor which she is going to follow-up with. She also any worsening pain, fever, bloody stools she needs to return back to the emergency department for reevaluation. She understands and is agreeable with this plan. Will discharge home in stable condition. All questions answered. Lab Data Labs: Laboratory Results - last 24 hr 05/25/21 05/25/21 05/25/21 15:05 15:05 15:05 WBC 12.2 H RBC 4.24 Hgb 13.2 Hct 39.4 MCV 92.9 MCH 31.1 MCHC 33.5 RDW Std Deviation 41.1 RDW Coeff of Lynette 12.0 Plt Count 233 MPV 10.6 Immature Gran % (Auto) 0.700 Neut % (Auto) 72.2 H Lymph % (Auto) 19.4 [place] % (Auto) 5.7 Eos % (Auto) 1.4 Baso % (Auto) 0.6 Absolute Neuts (auto) 8.8 H Absolute Lymphs (auto) 2.36 Nucleated RBC % 0 Sodium 136 Potassium 4.3 Chloride 104 Carbon Dioxide 26.0 Anion Gap 6 BUN 11 Creatinine 0.70 Estim Creat Clear Calc 92.25 Est GFR (MDRD) Af Amer 119 Est GFR (MDRD) Non-Af 99 BUN/Creatinine Ratio 15.8 Glucose 95 Calcium 9.8 Total Bilirubin 0.60 AST 44 H ALT 73 H Alkaline Phosphatase 65 Total Protein 7.5 Albumin 4.0 Globulin 3.5 Albumin/Globulin Ratio 1.1 Lipase 61 L Serum , Qual NEGATIVE Urine Color Urine Clarity Urine pH Ur Specific [place] Urine Protein Urine Glucose (UA) Urine Ketones Urine Occult Blood Urine Nitrite Urine Bilirubin Urine Urobilinogen Ur Leukocyte Esterase Urine RBC Urine WBC Ur Squamous Epith Cells Urine Bacteria Urine Mucus 05/25/21 17:00 WBC RBC Hgb Hct MCV MCH MCHC RDW Std Deviation RDW Coeff of Lynette Plt Count MPV Immature Gran % (Auto) Neut % (Auto) Lymph % (Auto) [place] % (Auto) Eos % (Auto) Baso % (Auto) Absolute Neuts (auto) Absolute Lymphs (auto) Nucleated RBC % Sodium Potassium Chloride Carbon Dioxide Anion Gap BUN Creatinine Estim Creat Clear Calc Est GFR (MDRD) Af Amer Est GFR (MDRD) Non-Af BUN/Creatinine Ratio Glucose Calcium Total Bilirubin AST ALT Alkaline Phosphatase Total Protein Albumin Globulin Albumin/Globulin Ratio Lipase Serum , Qual Urine Color Yellow Urine Clarity Clear Urine pH 6.0 Ur Specific [place] 1.010 Urine Protein Negative Urine Glucose (UA) Normal Urine Ketones Negative Urine Occult Blood Negative Urine Nitrite Negative Urine Bilirubin Negative Urine Urobilinogen Normal Ur Leukocyte Esterase Negative Urine RBC 0 SEEN Urine WBC 0 SEEN Ur Squamous Epith Cells 0 SEEN Urine Bacteria 0 SEEN Urine Mucus 0 SEEN Discharge Plan Triage Chief Complaint: Abd Pain ED Provider: Juni Saleh Dx/Rx/DC Orders Clinical Impression: Abdominal pain, Nausea & vomiting Instructions: Abdominal Pain, ED Vomiting (Adult) Prescriptions: New pantoprazole [Protonix] 40 mg tablet,delayed release (DR/EC) 40 mg PO DAILY Qty: 30 RF: 0 No Action rizatriptan 10 MG tablet 10 mg PO .X1 PRN PRN (Reason: migraines) RF: 0 furosemide 20 MG tablet 20 mg PO DAILY PRN PRN (Reason: Swelling) RF: 0 ergocalciferol (vitamin D2) 50,000 UNIT capsule 50,000 unit PO MO RF: 0 verapamil 120 MG capsule,ext rel. pellets 24 hr 120 mg PO DAILY RF: 0 oxycodone-acetaminophen [Percocet] 5-325 mg tablet 1 tab PO Q6H PRN (Reason: pain) 3 Days Qty: 10 RF: 0 ondansetron 4 mg tablet,disintegrating 4 mg PO Q8H PRN (Reason: nausea and vomiting) Qty: 10 RF: 0 diltiazem HCl 120 mg capsule,extended release 24hr 120 mg PO DAILY RF: 0 Primary Care Provider: Nicky Mccall Referrals: Nicky Mccall MD [Primary Care Provider] - 3-5 Days if not improving Disposition Disposition: Home, Self Care Discharge Date/Time: 05/25/21 17:28
[2021-05-25 15:20] LABS: Absolute Lymphocyte Count 2.36 X10^3/uL (0.83-4.51); Absolute Neutrophil Count 8.8 X10^3/uL (2.0-7.7); Basophil# 0.07 X10^3/uL; Basophil% 0.6 % (0-1); Eosinophil# 0.17 X10^3/uL; Eosinophils% 1.4 % (0-5); Hematocrit 39.4 % (37-47); Hemoglobin 13.2 g/dL (12.0-15.0); Lymphocyte # 2.36 X10^3/ul (0.83-4.51); Lymphocyte % 19.4 % (19-41); Mean Corp Hgb Conc 33.5 g/dL (32-36); Mean Corpuscular Hgb 31.1 pg (27.0-32.0); Mean Corpuscular Volume 92.9 fL (81-99); Mean Platelet Vol. 10.6 fl (6.2-12.0); Monocyte# 0.69 X10^3/uL; Monocyte% 5.7 % (0-10); NRBC Flagged by Analyzer 0 % (0-5); Neutrophil # 8.79 X10^3/uL (2.7-7.7); Neutrophil % 72.2 % (47-70); Platelet Count 233 K/mm3 (150-450); RBC Distribution Width SD 41.1 fl (35.1-43.9); Red Blood Count 4.24 M/mm3 (4.2-5.4); White Blood Count 12.2 K/mm3 (4.4-11.0)
[2021-05-25] MEDS: Ondansetron 4 MG/2 ML Vial IV (15:25)
[2021-05-25] MEDS: Mag Hydrox/Al Hydrox/Simeth 30 ML UDC PO (15:25)
[2021-05-25] MEDS: 0.9% Normal Saline 1,000 ML 1000 ML IV (15:25)
[2021-05-25 15:30] LABS: Internal QC Validated? YES +Cl - CLEAR BKGD; Pregnancy, Serum, hCG Quali. NEGATIVE Negative
[2021-05-25 15:38] LABS: ALB/GLOB Ratio 1.1 RATIO (0.9-2.4); AST(SGOT) 44 U/L (15-37); Alanine Aminotransfer ALT/SGPT 73 U/L (13-56); Alkaline Phosphatase 65 U/L (45-117); Anion Gap 6 (5-15); BUN 11 mg/dL (7-18); BUN/Creat Ratio 15.8 RATIO (10-20); Calcium,Total 9.8 mg/dL (8.5-10.1); Chloride 104 mmol/L (98-107); EST Glomerular Filtration Rate 99 mL/min (>60); Est Glom Filt Rate - Afr Amer 119 mL/min (>60); Estimated Creatinine Clearance 92.25 ml/min; Globulin 3.5 g/dL (2.2-4.2); Glucose 95 mg/dL (74-106); Lipase 61 U/L (73-393); Potassium 4.3 mmol/L (3.5-5.1); Protein, Total 7.5 g/dL (6.4-8.2); Sodium Level 136 mmol/L (136-145)
[2021-05-25] MEDS: Dicyclomine 20 MG/2 ML Vial IM (16:46)
[2021-05-25 17:10] LABS: Bacteria 0 SEEN /hpf (None Seen); Color, Urine Yellow (Yellow); Glucose, Dipstick Normal (Normal); Ketone-Dipstick Negative (Negative); Leukocyte Esterase-Dipstick Negative /ul (Negative); Mucous, Urine 0 SEEN /hpf (<or=2+); Nitrite-Dipstick Negative (Negative); Occult Blood-Urine Negative /ul (Negative); Protein-Dipstick Negative (Negative); Red Blood Cells-Urine 0 SEEN /hpf (0-5); Squamous Epithelial Cells - UA 0 SEEN /hpf (5-10); Urine Bilirubin Dipstick Negative (Negative); Urine Clarity Clear (Clear); Urine Urobilinogen Normal (Normal); White Blood Cells 0 SEEN /hpf (0-5)
[2021-05-25 17:27] VITALS: BP 129/87; PULSE 93; RESP 15; O2SAT 99
== END 2021-05-25 17:28 | disposition home or self-care (01) ==
PROVIDERS: Emergency Provider Emergency Medicine; PCP Internal Medicine
DX: R10.819 Abdominal tenderness, unspecified site (principal); R11.2 Nausea with vomiting, unspecified; K21.9 Gastro-esophageal reflux disease without esophagitis; I10 Essential (primary) hypertension; E66.9 Obesity, unspecified; Z68.33 Body mass index [BMI] 33.0-33.9, adult; K58.9 Irritable bowel syndrome, unspecified; F41.9 Anxiety disorder, unspecified; F32.9 Major depressive disorder, single episode, unspecified; Z79.899 Other long term (current) drug therapy; Z87.891 Personal history of nicotine dependence
CPT/HCPCS: 80053; 81001; 83690; 84703; 85025; 96361; 96365; 96372; 96375; 99283; J7030; A4216; J2405

== ENCOUNTER 2021-12-20 10:47 | Observation (INO) | payer SELFPAY ==
[2021-12-20 10:47] VITALS: BP 156/88; PULSE 105; RESP 18; TEMP 36.5; O2SAT 97; BMI 31.9
--- NOTE | 2021-12-20 10:59 | EDS_ITS ---
HPI HPI - GI History of Present Illness Chief Complaint: GI Bleed Detail of Chief Complaint: Rectal bleeding Informant: patient Narrative Narrative: Patient presents to the emergency department complaint of rectal bl eeding that started last evening. Patient states that she started not feeling well yesterday and had nausea and vomited twice. Patient also at same time developed diarrhea and had multiple watery stools about every 10 minutes until last evening when it started becoming bloody. She describes diffuse abdominal pain and cramping. She had chills but no fever. She denies sick contacts. She denies any undercooked foods being eaten. Denies recent antibiotic usage. Denies recent travel. Patient states had a colonoscopy in 2011 and was told she had some colitis but has not had issues since then. Patient does have diarrhea frequently she states. She does have history of IBS. Prior similar symptoms: No PFSH PFSH Medical History Abdominal pain Abnormal stress test Anxiety and depression Chest pain Essential hypertension GERD (gastroesophageal reflux disease) Hepatic adenoma IBS (irritable bowel syndrome) NSVT (nonsustained ventricular tachycardia) Obesity (BMI 30.0-34.9) Partial obstruction of small intestine RUQ pain Tobacco use Home Medications ergocalciferol (vitamin D2) 50,000 unit PO MO 07/03/20 [History Last Taken 11/03/20] furosemide 20 mg PO DAILY PRN PRN 07/03/20 [History Last Taken Unknown] rizatriptan 10 mg PO .X1 PRN PRN 07/03/20 [History Last Taken Unknown] ondansetron 4 mg PO Q8H PRN #10 tab 05/21/21 [Rx Last Taken Unknown] diltiazem HCl 120 mg PO DAILY 05/25/21 [History Last Taken Unknown] bupropion HCl 150 mg PO DAILY 12/20/21 [History Last Taken Unknown] hydroxyzine HCl 25 mg PO QHS 12/20/21 [History Last Taken Unknown] losartan 50 mg PO DAILY 12/20/21 [History Last Taken Unknown] Allergy/AdvReac Type Severity Reaction Status Date / Time latex Allergy Mild IRRIATION, Verified 12/20/21 10:49 OR IF SHE INGEST SHE VOMITS. Iodine and Iodide Containing Allergy Anaphylaxis Verified 12/20/21 13:19 Produc morphine Allergy Itching Verified 12/20/21 10:49 Penicillins Allergy Anaphylaxis Verified 12/20/21 10:49 meperidine [From Demerol] AdvReac Nausea Verified 12/20/21 10:49 propoxyphene AdvReac Nausea Verified 12/20/21 10:49 [From Darvocet-N] [email or web address] [From Chantix] AdvReac Turns me Verified 12/20/21 10:49 into a crazy person Surgical History History of carpal tunnel release History of surgery of liver Status post appendectomy Status post cholecystectomy Status post hysterectomy Social History Smoking Status: Former smoker alcohol intake: current details: occasional substance use type: does not use ROS ROS ED Constitutional Constitutional ED: Reports systems reviewed and no addt'l complaints, except as documented; Denies body ache(s), change in weight or chills Eyes Eyes: Denies acute decrease in peripheral vision, change in vision, double vision or loss of vision ENT ENT ED: Reports none; Denies ear pain, lip swelling, loss taste/smell, neck pain, otalgia or sore throat Cardiovascular Cardiovascular: Reports none; Denies abdominal pain, chest pain with activity, leg edema, lightheadedness, palpitations, rapid heart rate or syncope Respiratory/Chest Respiratory/Chest: Reports none; Denies change in mental status, dry cough, dyspnea, hemoptysis, shortness of breath at rest or shortness of breath with exertion Gastrointestinal Gastrointestinal: Reports none, abdominal pain, diarrhea, nausea, vomiting and other Details: Bright red blood per rectum ; Denies change in stool character, hematemesis, hematochezia, melena or rectal bleeding Genitourinary Genitourinary ED: Reports none; Denies abdominal discomfort, anuria, dysuria, genital pain or polyuria Musculoskeletal Musculoskeletal: Reports none; Denies arthralgias, back pain, difficulty walking, extremity pain, muscle weakness or myalgias Integumentary Reports none; Denies abscess or rash Neurologic Neurologic: Reports none; Denies abnormal gait, confusion, focal weakness, frequent falls, headache(s), loss of vision, numbness, paresthesias, radicular pain, vertigo or weakness Psychiatric Psychiatric: Reports systems reviewed and no addt'l complaints, except as documented and none; Denies behavioral changes, confusion, difficulty concentrating, hallucinations, suicidal ideation, tactile hallucinations or visual hallucinations Endocrine Endocrinology: Denies none, cold intolerance, excessive sweating, fatigue or heat intolerance Hematologic/Lymphatic Hematologic/Lymphatic: Reports none; Denies anemia, easy bleeding or easy bruising Allergic/Immunologic Allergic/Immunologic ED: Denies as per HPI, none, lip swelling, mouth swelling, throat swelling, tongue swelling or hives EXAM Physical Exam Const Vital Signs: 12/20/21 10:47 12/20/21 14:11 Temperature 97.7 F L Temperature Source Temporal Pulse Rate 105 H 98 Respiratory Rate 18 16 Blood Pressure 156/88 H 138/78 H Blood Pressure Mean 110 98 Pulse Ox 97 98 Oxygen Delivery Method Room Air Positive well nourished and well developed General Appearance ED: well developed and NAD HEENT Reports TM's clear and moist mucous membranes normocephalic and atraumatic; Negative for trauma or tenderness Tympanic Membrane ED: Yes TM's clear Eyes PERRL and EOMs intact bilaterally General Eye ED: Negative for pale conjunctiva or scleral icterus Neck no lymphadenopathy, supple and no JVD General: Negative for tenderness Chest Wall inspection of chest normal and palpation of chest normal Chest: Negative for tenderness Resp normal respiratory effort and clear to auscultation bilaterally Effort and Inspection: Negative for respiratory distress or pain with movement Auscultation: Negative for rhonchi, wheezes or diminished lung sounds Cardio regular rate, regular rhythm, S1 normal heart sound, S2 normal heart sound and no murmurs Peripheral Pulses: pulses 2+ throughout GI normal to inspection, nondistended, normoactive bowel sounds, soft to palpation, non-distended and no masses GI Narrative: Patient with diffuse abdominal discomfort. There is no rebound, rigidity, or peritoneal signs. Back/Spine no CVA tenderness and no thoracic nor lumbar tenderness Extremity normal to inspection General Extremety ED: Negative for edema General Extremity: Negative for edema Neuro oriented x3, CN's II-XII intact bilaterally, no sensory deficits noted and gait normal Sensorium / Orientation: awake, alert, oriented to person, oriented to place and oriented to time Motor Exam: strength 5/5 throughout and strength abnormal Psych mental status grossly normal Skin no rashes or lesions noted and no wounds MDM MDM MDM Narrative Medical decision making narrative: IV line established on arrival. Patient was medicated Dilaudid and Zofran. She continued to have significant pain and was given a second dose of Dilaudid. Lab work-up shows slightly elevated white blood cell count however this appears to be chronic when compared with prior lab values. Her lactate was 2.0. Chemistries unremarkable. CT scan of the abdomen pelvis initially ordered with IV contrast however on first attempt to perform the scan her IV infiltrated and patient had a contrast allergic reaction as she turned beet red and became very itchy. The CAT scan was then performed without IV contrast and was unremarkable. Patient was unable to give a stool sample in the department. Lab Data Attestation: I reviewed the patient's lab results. Labs: Laboratory Results - last 24 hr 12/20/21 12/20/21 12/20/21 11:15 11:15 11:15 WBC 12.5 H RBC 4.00 L Hgb 13.0 Hct 36.9 L MCV 92.3 MCH 32.5 H MCHC 35.2 RDW Std Deviation 40.5 RDW Coeff of Lynette 11.9 Plt Count 209 MPV 10.4 Immature Gran % (Auto) 0.900 Neut % (Auto) 74.4 H Lymph % (Auto) 17.3 L [place] % (Auto) 5.2 Eos % (Auto) 1.8 Baso % (Auto) 0.4 Absolute Neuts (auto) 9.3 H Absolute Lymphs (auto) 2.16 Nucleated RBC % 0 Sodium 140 Potassium 3.9 Chloride 109 H Carbon Dioxide 24.0 Anion Gap 7 BUN 11 Creatinine 0.89 Estim Creat Clear Calc 72.56 Est GFR (MDRD) Af Amer 90 Est GFR (MDRD) Non-Af 74 BUN/Creatinine Ratio 12.4 Glucose 99 Lactic Acid 2.0 Calcium 9.2 Radiography Diagnostic Testing: Clinical Impression(s) from Imaging Studies Abdomen/Pelvis CT 12/20/21 12:39 IMPRESSION: No acute abnormality. Fatty infiltration of the liver. Electronically Signed: Juan Gama MD at 14:59 EDT , Discharge Plan Triage Chief Complaint: GI Bleed ED Provider: Andria Brown Dx/Rx/DC Orders Clinical Impression: Intractable abdominal pain, Gastroenteritis, Acute lower gastrointestinal bleeding Prescriptions: No Action rizatriptan 10 MG tablet 10 mg PO .X1 PRN PRN (Reason: migraines) RF: 0 furosemide 20 MG tablet 20 mg PO DAILY PRN PRN (Reason: Swelling) RF: 0 ergocalciferol (vitamin D2) 50,000 UNIT capsule 50,000 unit PO MO RF: 0 ondansetron 4 mg tablet,disintegrating 4 mg PO Q8H PRN (Reason: nausea and vomiting) Qty: 10 RF: 0 diltiazem HCl 120 mg capsule,extended release 24hr 120 mg PO DAILY RF: 0 losartan 50 mg Tablet 50 mg PO DAILY RF: 0 hydroxyzine HCl 25 mg tablet 25 mg PO QHS RF: 0 bupropion HCl 150 mg tablet extended release 24 hr 150 mg PO DAILY RF: 0 Primary Care Provider: Nicky Mccall Referrals: Nicky Mccall MD [Primary Care Provider] - Disposition Disposition: Acute Care [facility]
[2021-12-20] MEDS: Ondansetron 4 MG/2 ML Vial IV (11:22)
[2021-12-20] MEDS: HYDROmorphone 1 MG/ML Syringe IV ×2 (11:22→14:24)
[2021-12-20] MEDS: 0.9% Normal Saline 1,000 ML 1000 ML IV (11:22)
[2021-12-20 11:24] LABS: Absolute Lymphocyte Count 2.16 X10^3/uL (0.83-4.51); Absolute Neutrophil Count 9.3 X10^3/uL (2.0-7.7); Basophil# 0.05 X10^3/uL; Basophil% 0.4 % (0-1); Eosinophil# 0.23 X10^3/uL; Eosinophils% 1.8 % (0-5); Hematocrit 36.9 % (37-47); Lymphocyte # 2.16 X10^3/ul (0.83-4.51); Lymphocyte % 17.3 % (19-41); Mean Corp Hgb Conc 35.2 g/dL (32-36); Mean Corpuscular Hgb 32.5 pg (27.0-32.0); Mean Corpuscular Volume 92.3 fL (81-99); Mean Platelet Vol. 10.4 fl (6.2-12.0); Monocyte# 0.65 X10^3/uL; Monocyte% 5.2 % (0-10); NRBC Flagged by Analyzer 0 % (0-5); Neutrophil # 9.25 X10^3/uL (2.7-7.7); Neutrophil % 74.4 % (47-70); Platelet Count 209 K/mm3 (150-450); RBC Distribution Width CV 11.9 % (11.6-14.6); RBC Distribution Width SD 40.5 fl (35.1-43.9); White Blood Count 12.5 K/mm3 (4.4-11.0)
[2021-12-20 11:38] LABS: Anion Gap 7 (5-15); BUN 11 mg/dL (7-18); BUN/Creat Ratio 12.4 RATIO (10-20); Calcium,Total 9.2 mg/dL (8.5-10.1); Chloride 109 mmol/L (98-107); Creatinine, Serum 0.89 mg/dL (0.55-1.02); EST Glomerular Filtration Rate 74 mL/min (>60); Est Glom Filt Rate - Afr Amer 90 mL/min (>60); Estimated Creatinine Clearance 72.56 ml/min; Glucose 99 mg/dL (74-106); Potassium 3.9 mmol/L (3.5-5.1); Sodium Level 140 mmol/L (136-145)
--- NOTE | 2021-12-20 12:39 | CT_ITS ---
STUDY: CT ABDOMEN AND PELVIS WITHOUT CONTRAST REASON FOR EXAM: Female, 41 years old. abdominal pain. PATIENT HAD ALLERGIC REACTION TO CONTRAST SO IV WAS STOPPED PART WAY THROUGH!!! PRIOR HYSTER,APPY AND GB RADIATION DOSAGE (If Supplied By Facility): CTDIvol = ( 11.22 ) mGy, DLP = ( 566.16 ) mGycm TECHNIQUE: Transaxial images were obtained from the dome of the diaphragm to the symphysis pubis without oral contrast, and without intravenous contrast. Sagittal and coronal images were reconstructed. Individualized dose optimization techniques were used for this CT. COMPARISON: 05/21/2021 FINDINGS: The visualized lung bases are unremarkable. The visualized portions of the heart are within normal limits. There is decreased attenuation of the liver consistent with steatosis. There is non-visualization of the gallbladder, which may be secondary to either contraction or a prior cholecystectomy. Normal spleen. Normal pancreas. Normal bilateral adrenal glands. Normal right kidney. Normal left kidney. Normal visualized stomach. Normal small intestine. Normal colon. There are surgical clips in the region of the appendix consistent with a prior appendectomy. Normal abdominal aorta. Normal inferior vena cava. Normal retroperitoneum. Normal urinary bladder. Normal abdominal wall. Normal osseous structures. CT/Abdomen/Pelvis without Cont IMPRESSION: No acute abnormality. Fatty infiltration of the liver. Electronically Signed: Juan Gama MD at 14:59 EDT ,
[2021-12-20] MEDS: DiphenhydrAMINE 50 MG/ML Syringe IV (13:34)
[2021-12-20] MEDS: MethylPREDNISolone 125 MG/2 ML Vial IV (13:39)
--- NOTE | 2021-12-20 14:10 | ED.RN ---
pt remains red with some itching but feeling much better. continues to have abd pain but tolerating at this time.
[2021-12-20 14:11] VITALS: BP 138/78; PULSE 98; RESP 16; O2SAT 98
[2021-12-20 15:20] LABS: Reflex Lactate? Y
--- NOTE | 2021-12-20 15:39 | ED.RN ---
called lab requesting blood draw for additional bloodwork
--- NOTE | 2021-12-20 16:13 | PCM.HP.STD ---
HPI - General General Date of Admission: 12/20/21 Date of Service: 12/20/21 Chief Complaint: Nausea vomiting diarrhea and rectal bleed for last 2 days HPI Narrative NELSON BURROWS, is a 41 F with history of hypertension, GERD possible IBD came to ED for sudden onset of vomiting and diarrhea since yesterday afternoon. She further said her had similar food about noontime chicken broth and a biscuit and then she started having diarrhea and vomiting. She said she had more than 10 times liquid stool yesterday. She had 2 times vomiting mainly gastric content. Last night she started having small amount of blood and then large volume of blood mixed with stool today a.m. She said she had colonoscopy about 7 to 8 years ago was reported normal. She also had colonoscopy many years ago. She has history of endometriosis and had hysterectomy at the age of 28. She was last admitted in October 2020 for chest pain possible due to COVID-19. In ED, vitals reviewed. First triage vitals shows heart rate 105/min, blood pressure 156.. No hypoxia or tachypnea but later vitals shows heart rate in 90s. Patient had CT abdomen without contrast and reported no acute abdominal abnormality. C. difficile and enteric bacteriology panel sent from ER. Labs reviewed and mentioned in assessment plan PFSH Medical History Abdominal pain Abnormal stress test Anxiety and depression Chest pain Essential hypertension GERD (gastroesophageal reflux disease) Hepatic adenoma IBS (irritable bowel syndrome) NSVT (nonsustained ventricular tachycardia) Obesity (BMI 30.0-34.9) Partial obstruction of small intestine RUQ pain Tobacco use Home Medications ergocalciferol (vitamin D2) 50,000 unit PO MO 07/03/20 [History Last Taken 11/03/20] furosemide 20 mg PO DAILY PRN PRN 07/03/20 [History Last Taken Unknown] rizatriptan 10 mg PO .X1 PRN PRN 07/03/20 [History Last Taken Unknown] ondansetron 4 mg PO Q8H PRN #10 tab 05/21/21 [Rx Last Taken Unknown] diltiazem HCl 120 mg PO DAILY 05/25/21 [History Last Taken Unknown] bupropion HCl 150 mg PO DAILY 12/20/21 [History Last Taken Unknown] hydroxyzine HCl 25 mg PO QHS 12/20/21 [History Last Taken Unknown] losartan 50 mg PO DAILY 12/20/21 [History Last Taken Unknown] Allergy/AdvReac Type Severity Reaction Status Date / Time latex Allergy Mild IRRIATION, Verified 12/20/21 10:49 OR IF SHE INGEST SHE VOMITS. Iodine and Iodide Containing Allergy Anaphylaxis Verified 12/20/21 13:19 Produc morphine Allergy Itching Verified 12/20/21 10:49 Penicillins Allergy Anaphylaxis Verified 12/20/21 10:49 meperidine [From Demerol] AdvReac Nausea Verified 12/20/21 10:49 propoxyphene AdvReac Nausea Verified 12/20/21 10:49 [From Darvocet-N] varenicline [From Chantix] AdvReac Turns me Verified 12/20/21 10:49 into a crazy person Surgical History History of carpal tunnel release History of surgery of liver Status post appendectomy Status post cholecystectomy Status post hysterectomy Social History Smoking Status: Former smoker alcohol intake: current details: occasional substance use type: does not use ROS ROS Narrative Constitutional: Reports fatigue and weakness HEENT: Reports systems reviewed and no addt'l complaints, except as documented Respiratory/Chest: Denies chest pain, shortness of breath at rest or with exertion. History of NSVT Gastrointestinal: As mentioned in HPI Genitourinary: Denies burning urination or new urinary tract symptoms. Had a hysterectomy at the age of 28. Post hysterectomy amenorrhea Musculoskeletal: No joint pain or limited range of motion Neurologic: Denies seizure-like activity skin: No ulcer. No rash Endocrinology: Reports systems reviewed and no addt'l complaints, except as documented Hematologic/Lymphatic: Reports systems reviewed and no addt'l complaints, except as documented Rest 14 ROS are negative except as mentioned in HPI Vital Signs Vital Signs Vital Signs: 12/20/21 10:47 12/20/21 14:11 Temperature 97.7 F L Temperature Source Temporal Pulse Rate 105 H 98 Respiratory Rate 18 16 Blood Pressure 156/88 H 138/78 H Blood Pressure Mean 110 98 Pulse Ox 97 98 Oxygen Delivery Method Room Air Weight Weight: 186 lb Body Mass Index (BMI) 31.9 Physical Exam Narrative General: Alert, Oriented x3, Cooperative HEENT: Atraumatic, PERRLA, EOMI, Normocephalic Oral: Oral mucosa dry. No Gingival or Mucosal Lesions/ Ulcerations Neck: Supple, No JVD, Negative Carotid Bruits Lungs: Air entry diminished in bilateral lung bases. No crepitation/rhonchi Cardiovascular: Regular rate, Regular Rhythm, Normal S1, Normal S2, No murmurs Abdomen: Bowel Sounds Present, Soft, mild tenderness over right lower quadrant, upper epigastric and left lower quadrant. Non-Distended : No renal angle tenderness. No suprapubic tenderness. Extremities: No edema, Capillary Refill Less than 3 Seconds Skin: No rashes, No breakdown Musculoskeletal: No Tenderness to Palpation of Joints or Extremities Neurological: Cranial nerves II-XII grossly intact, DTR 2+/4 and Symmetrical, Neuro grossly intact Psych/Mental Status: Normal Affect, Appropriate Results Lab / Micro Data Result Diagrams: 12/20/21 11:15 12/20/21 11:15 Labs: Laboratory Results - last 24 hr 12/20/21 11:15: WBC 12.5 H, RBC 4.00 L, Hgb 13.0, Hct 36.9 L, MCV 92.3, MCH 32.5 H, MCHC 35.2, RDW Std Deviation 40.5, RDW Coeff of Lynette 11.9, Plt Count 209, MPV 10.4, Immature Gran % (Auto) 0.900, Neut % (Auto) 74.4 H, Lymph % (Auto) 17.3 L, [place] % (Auto) 5.2, Eos % (Auto) 1.8, Baso % (Auto) 0.4, Absolute Neuts (auto) 9.3 H, Absolute Lymphs (auto) 2.16, Nucleated RBC % 0 12/20/21 11:15: Sodium 140, Potassium 3.9, Chloride 109 H, Carbon Dioxide 24.0, Anion Gap 7, BUN 11, Creatinine 0.89, Estim Creat Clear Calc 72.56, Est GFR (MDRD) Af Amer 90, Est GFR (MDRD) Non-Af 74, BUN/Creatinine Ratio 12.4, Glucose 99, Calcium 9.2 12/20/21 11:15: Lactic Acid 2.0 Radiology Impression Abdomen/Pelvis CT 12/20/21 12:39 IMPRESSION: No acute abnormality. Fatty infiltration of the liver. Electronically Signed: Juan Gama MD at 14:59 EDT , Assessment & Plan Assessment/Plan (1) Acute lower gastrointestinal bleeding: (2) Abdominal pain: QUALIFIERS: Abdominal location: generalized Qualified Code(s): R10.84 - Generalized abdominal pain PLAN: 1. Acute gastroenterocolitis probably viral etiology: Patient is being admitted to PCU because of GI bleed. Hemodynamically heart rate in the 90s to 100/min. No hypotension. Stool for enteric bacteriology panel and C. difficile sent from ED. IV fluid resuscitation. Mild leukocytosis with neutrophilia. BMP shows chloride 109 with normal sodium potassium and bicarb. BUN/creatinine normal. 2. Lower GI bleed most likely from infectious colitis: Patient has history of IBS but denies prior history of Crohn's disease ulcerative colitis. Hemoglobin normal 13 g.Monitor H&H evening and then CBC daily. Clam Shucking Machine Tender Dr. Rhoades consulted and informed about the patient. I do not think patient needs colonoscopy inpatient but may be outpatient. 3. Allergic reaction with IV contrast CT scan. Patient had generalized rash all over body after IV contrast. She was given Benadryl 50 mg IV and methylprednisone 125 mg IV x1 in ED. Her rash is almost resolved. Benadryl 25 mg IV every 4 hourly as needed for allergic rash in case needed. I do not think she needs further steroid. Hypertension: Antihypertensive medication can be resumed from tomorrow. 4. GERD: Continue PPI 5. VTE prophylaxis moderate risk due to morbid obesity 31.9 kg/m?. Bilateral SCDs. Pharmacological prophylaxis contraindicated. Full code. Charges/Coding Visit Charges OBSV E&M: 93228 Initial observation care L3
[2021-12-20 16:29] VITALS: BP 129/88; PULSE 79; RESP 16; TEMP 36.6; O2SAT 99
[2021-12-20 16:30] VITALS: BMI 29.9
[2021-12-20 16:30] LABS: Magnesium 1.9 mg/dL (1.6-2.6)
[2021-12-20 16:43] LABS: Lactic Acid 1.5 mmol/L (0.4-1.9)
[2021-12-20] MEDS: 0.9% Saline Lock 10 ML Syringe IV (17:58)
[2021-12-20 20:01] VITALS: PULSE 93
[2021-12-20 20:17] LABS: Hemoglobin 13.2 g/dL (12.0-15.0)
[2021-12-20 20:40] VITALS: BP 127/76; PULSE 93; RESP 16; TEMP 37.2; O2SAT 95
[2021-12-20] MEDS: oxyCODONE 5 MG Tablet PO (20:46)
[2021-12-21] VITALS (7 sets, daily range): BP systolic 117–128; BP diastolic 68–76; PULSE 73–87; RESP 16; TEMP 36.6–37.1; O2SAT 95–98
[2021-12-21] MEDS: oxyCODONE 5 MG Tablet PO ×3 (01:24→10:39)
[2021-12-21 06:26] LABS: Absolute Lymphocyte Count 0.97 X10^3/uL (0.83-4.51); Absolute Neutrophil Count 12.2 X10^3/uL (2.0-7.7); Basophil# 0.02 X10^3/uL; Basophil% 0.1 % (0-1); Hematocrit 38.1 % (37-47); Hemoglobin 12.7 g/dL (12.0-15.0); Lymphocyte # 0.97 X10^3/ul (0.83-4.51); Lymphocyte % 7.2 % (19-41); Mean Corp Hgb Conc 33.3 g/dL (32-36); Mean Corpuscular Hgb 32.2 pg (27.0-32.0); Mean Corpuscular Volume 96.7 fL (81-99); Mean Platelet Vol. 10.9 fl (6.2-12.0); Monocyte# 0.23 X10^3/uL; Monocyte% 1.7 % (0-10); NRBC Flagged by Analyzer 0 % (0-5); Platelet Count 227 K/mm3 (150-450); RBC Distribution Width CV 11.6 % (11.6-14.6); RBC Distribution Width SD 41.2 fl (35.1-43.9); Red Blood Count 3.94 M/mm3 (4.2-5.4); White Blood Count 13.6 K/mm3 (4.4-11.0)
--- NOTE | 2021-12-21 06:52 | NURSING ---
Pt asking who the hospitalist will be today.
[2021-12-21 06:57] LABS: Anion Gap 7 (5-15); BUN 9 mg/dL (7-18); BUN/Creat Ratio 13.5 RATIO (10-20); Chloride 105 mmol/L (98-107); Creatinine, Serum 0.66 mg/dL (0.55-1.02); EST Glomerular Filtration Rate 104 mL/min (>60); Est Glom Filt Rate - Afr Amer 126 mL/min (>60); Estimated Creatinine Clearance 97.84 ml/min; Glucose 149 mg/dL (74-106); Potassium 4.1 mmol/L (3.5-5.1); Sodium Level 136 mmol/L (136-145)
--- NOTE | 2021-12-21 10:28 | PCM.PN.HOSP ---
Documented by User: Lindsay Rodriguez NP, [employer]ITION [employer]ATOR-[employer] 12/21/21 10:44 Subjective Subjective Patient seen and examined. States she feels shitty. Complains of abdominal pain, nausea. Denies further diarrhea. States she was recently referred to GI due to worsening GERD. Denies fever/chills. Objective Data Objective Data Vital Signs: Vital Signs Temp Pulse Resp BP Pulse Ox 98.6 F 87 16 128/76 H 98 12/21/21 06:29 12/21/21 06:29 12/21/21 06:29 12/21/21 06:29 12/21/21 06:29 Oxygen Delivery Method Room Air Weight: 174 lb 13.225 oz Body Mass Index (BMI) 29.9 Intake & Output: Intake and Output for Last 24 Hours 12/19/21 12/20/21 12/21/21 22:59 23:59 23:59 Intake Total Balance Lab / Micro Data Result Diagrams: 12/21/21 05:25 12/21/21 05:25 Labs: Laboratory Results - last 24 hr 12/20/21 11:15: WBC 12.5 H, RBC 4.00 L, Hgb 13.0, Hct 36.9 L, MCV 92.3, MCH 32.5 H, MCHC 35.2, RDW Std Deviation 40.5, RDW Coeff of Lynette 11.9, Plt Count 209, MPV 10.4, Immature Gran % (Auto) 0.900, Neut % (Auto) 74.4 H, Lymph % (Auto) 17.3 L, [place] % (Auto) 5.2, Eos % (Auto) 1.8, Baso % (Auto) 0.4, Absolute Neuts (auto) 9.3 H, Absolute Lymphs (auto) 2.16, Nucleated RBC % 0 12/20/21 11:15: Sodium 140, Potassium 3.9, Chloride 109 H, Carbon Dioxide 24.0, Anion Gap 7, BUN 11, Creatinine 0.89, Estim Creat Clear Calc 72.56, Est GFR (MDRD) Af Amer 90, Est GFR (MDRD) Non-Af 74, BUN/Creatinine Ratio 12.4, Glucose 99, Calcium 9.2 12/20/21 11:15: Lactic Acid 2.0 12/20/21 16:00: Lactic Acid 1.5 12/20/21 16:00: Magnesium 1.9 12/20/21 20:00: Hgb 13.2, Hct 39.0 12/21/21 05:25: WBC 13.6 H, RBC 3.94 L, Hgb 12.7, Hct 38.1, MCV 96.7, MCH 32.2 H, MCHC 33.3 D, RDW Std Deviation 41.2, RDW Coeff of Lynette 11.6, Plt Count 227, MPV 10.9, Immature Gran % (Auto) 1.000 H, Neut % (Auto) 90.0 H, Lymph % (Auto) 7.2 L, [place] % (Auto) 1.7, Eos % (Auto) 0.0, Baso % (Auto) 0.1, Absolute Neuts (auto) 12.2 H, Absolute Lymphs (auto) 0.97, Nucleated RBC % 0 12/21/21 05:25: Sodium 136, Potassium 4.1, Chloride 105, Carbon Dioxide 24.0, Anion Gap 7, BUN 9, Creatinine 0.66, Estim Creat Clear Calc 97.84, Est GFR (MDRD) Af Amer 126, Est GFR (MDRD) Non-Af 104, BUN/Creatinine Ratio 13.5, Glucose 149 H, Calcium 9.0 Radiography Diagnostic Testing: Radiology Impression Abdomen/Pelvis CT 12/20/21 12:39 IMPRESSION: No acute abnormality. Fatty infiltration of the liver. Electronically Signed: Juan Gama MD at 14:59 EDT , Physical Exam Const alert, oriented x3 and no apparent distress Orientation / Consciousness: awake, oriented to person, oriented to place and oriented to time HEENT normocephalic and moist oral mucous membranes Eyes PERRL, EOMs intact bilaterally and conjunctivae normal Neck no lymphadenopathy Resp normal respiratory effort and clear to auscultation bilaterally Cardio regular rate, regular rhythm and no murmurs Peripheral Pulses: pulses 2+ throughout GI normal to inspection, nondistended, normoactive bowel sounds and non-distended Palpation: tender RLQ Extremity normal to inspection Skin no rashes or lesions noted Lesions: no lesions Rashes: no rashes Trauma: no lacerations or abrasions Neuro CN's II-XII intact bilaterally, no focal motor deficits, no sensory deficits noted and deep tendon reflexes 2+ bilaterally Psych mental status grossly normal and affect normal Assessment & Plan Assessment/Plan (1) Abdominal pain: QUALIFIERS: Abdominal location: generalized Qualified Code(s): R10.84 - Generalized abdominal pain PLAN: 1. Acute gastroenteritis/lower GI bleed-diarrhea resolved. Stool studies pending. Continues to have nausea and right lower quadrant pain. CT of abdomen and pelvis unremarkable. GI consult pending. Continue IV PPI. As needed antiemetics. 2. IV contrast allergic reaction-resolved following Benadryl and IV Solu-Medrol. 3. Hypertension-continue losartan, Cardizem. 4. GERD-IV PPI. 5. History of hepatic adenoma-resected at [facility]. 6. Tobacco dependence-encouraged cessation. 7. Depression/anxiety-on bupropion. 8. History of migraines-on as needed triptan. DVT prophylaxis-SCDs This patient was seen by JOHNNY Rolle under the supervision of Dr. Ray. Time spent examining patient, reviewing data and subsequent management of care: 13 Minutes Documented by User: Dr. Conrado Ray MD 12/21/21 12:39 Objective Data Lab / Micro Data Result Diagrams: 12/21/21 05:25 12/21/21 05:25 Charges/Coding Addendum Addendum: Dr. Ray: I personally reviewed the chart and examined the patient, and agree with the above findings. 41-year-old female presents to the hospital with acute viral gastroenteritis and a lower GI bleed. Her hemoglobin is unremarkable and highly stable. Likely she had given the amount of diarrhea, she likely had a fissure versus erosion of blood. Awaiting evaluation by gastroenterology for possible scope. She is still complaining of pain despite having a normal CT scan of her abdomen and pelvis this is likely cramping pain from her acute gastroenteritis and should resolve on its own. She did have an allergic reaction to the CT scan and had received medication for this. She this has resolved at this time. Clinical time spent in all aspects of patient care: 20 minutes Visit Charges OBSV E&M: 62135 Subsequent observation care L2
[2021-12-21] MEDS: Acetaminophen 325 MG Tablet 650 MG PO (10:38)
[2021-12-21] MEDS: Pantoprazole Sodium 40 MG Tablet PO (10:42)
[2021-12-21] MEDS: dilTIAZem CD 120 MG Capsule PO (10:42)
[2021-12-21] MEDS: Losartan Potassium 50 MG Tablet PO (10:42)
[2021-12-21] MEDS: buPROPion (XL) 150 MG TABLET.XL PO (10:46)
[2021-12-21] MEDS: Ondansetron ODT 4 MG Tablet PO (10:55)
--- NOTE | 2021-12-21 17:10 | DS.PCM_ITS ---
Documented by User: Lindsay Rodriguez NP, RECEIVING ASSOCIATE STORE-C 12/21/21 17:14 Providers Date of Admission: 12/20/21 Date of Discharge: 12/21/21 Primary Care Physician: Nicky Mccall MD Consultations 12/20/21 16:38 Consult: Gastroenterology Routine Consulting Provider: [facility] Reason for Consult: lower GI Bleed EMERGENT Consult: No MD Notified: Yes Date Notified: 12/20/21 Time Notified: 16:28 Method of Notification: Text Comments:: Possible gastroenterocolitis Reason For Visit: GI BLEED Diagnosis Discharge Diagnosis (1) Abdominal pain: Status: Acute Code(s): R10.9 - Unspecified abdominal pain Qualifiers: Abdominal location: generalized Qualified Code(s): R10.84 - Generalized abdominal pain Medications at Discharge Home Medications ergocalciferol (vitamin D2) 50,000 unit PO MO 07/03/20 furosemide 20 mg PO DAILY PRN PRN 07/03/20 rizatriptan 10 mg PO .X1 PRN PRN 07/03/20 ondansetron 4 mg PO Q8H PRN #10 tab 05/21/21 diltiazem HCl 120 mg PO DAILY 05/25/21 bupropion HCl 150 mg PO DAILY 12/20/21 hydroxyzine HCl 25 mg PO QHS 12/20/21 losartan 50 mg PO DAILY 12/20/21 Hospital Course Operations None Procedures None Summary of Care Provided Hospital Course: Patient is a 41-year-old female admitted 12/20/2021 due to nausea, vomiting, diarrhea and reported rectal bleeding. 1. Acute gastroenteritis/lower GI bleed-diarrhea resolved. No further diarrhea during admission to obtain stool studies. Continues to have nausea and right lower quadrant pain. CT of abdomen and pelvis unremarkable. GI consulted however patient signed out AGAINST MEDICAL ADVICE prior to consult. 2. IV contrast allergic reaction-resolved following Benadryl and IV Solu-Medrol. 3. Hypertension-continue losartan, Cardizem. 4. GERD-continue home regimen. 5. History of hepatic adenoma-resected at [facility]. 6. Tobacco dependence-encouraged cessation. 7. Depression/anxiety-on bupropion. 8. History of migraines-on as needed triptan. Physical Exam Const alert, oriented x3 and no apparent distress Orientation / Consciousness: awake, oriented to person, oriented to place and oriented to time HEENT normocephalic and moist oral mucous membranes Eyes PERRL, EOMs intact bilaterally and conjunctivae normal Neck no lymphadenopathy Resp normal respiratory effort and clear to auscultation bilaterally Cardio regular rate, regular rhythm and no murmurs Peripheral Pulses: pulses 2+ throughout GI normal to inspection, nondistended, normoactive bowel sounds and non-distended Palpation: tender RLQ Extremity normal to inspection Skin no rashes or lesions noted Lesions: no lesions Rashes: no rashes Trauma: no lacerations or abrasions Neuro CN's II-XII intact bilaterally, no focal motor deficits, no sensory deficits noted and deep tendon reflexes 2+ bilaterally Psych mental status grossly normal and affect normal Patient seen and examined prior to discharge. Physical assessment as noted above. This patient was seen by JOHNNY Rolle under the supervision of Dr. Ray. Time spent examining patient, reviewing data and subsequent management of care: 15 Minutes Weight / BMI Weight Weight: 174 lb 13.225 oz Body Mass Index (BMI) 29.9 ABG / Lab / Microbiology Data Result Diagrams: 12/21/21 05:25 12/21/21 05:25 Laboratory: Laboratory Results - last 24 hr 12/20/21 20:00: Hgb 13.2, Hct 39.0 12/21/21 05:25: WBC 13.6 H, RBC 3.94 L, Hgb 12.7, Hct 38.1, MCV 96.7, MCH 32.2 H , MCHC 33.3 D, RDW Std Deviation 41.2, RDW Coeff of Lynette 11.6, Plt Count 227, MPV 10.9, Immature Gran % (Auto) 1.000 H, Neut % (Auto) 90.0 H, Lymph % (Auto) 7.2 L, [place] % (Auto) 1.7, Eos % (Auto) 0.0, Baso % (Auto) 0.1, Absolute Neuts (auto) 12.2 H, Absolute Lymphs (auto) 0.97, Nucleated RBC % 0 12/21/21 05:25: Sodium 136, Potassium 4.1, Chloride 105, Carbon Dioxide 24.0, Anion Gap 7, BUN 9, Creatinine 0.66, Estim Creat Clear Calc 97.84, Est GFR (MDRD) Af Amer 126, Est GFR (MDRD) Non-Af 104, BUN/Creatinine Ratio 13.5, Gluco se 149 H, Calcium 9.0 Meaningful Use Info Meaningful Use Diagnoses (Choose all that apply): None applicable Discharge Plan Admission Admit Date/Time: 12/20/21 15:26 Attending Provider: Conrado Ray Primary Care Provider: Nicky Mccall Discharge Orders/Prescriptions Prescriptions: Continued rizatriptan 10 MG tablet 10 mg PO .X1 PRN PRN (Reason: migraines) RF: 0 furosemide 20 MG tablet 20 mg PO DAILY PRN PRN (Reason: Swelling) RF: 0 ergocalciferol (vitamin D2) 50,000 UNIT capsule 50,000 unit PO MO RF: 0 ondansetron 4 mg tablet,disintegrating 4 mg PO Q8H PRN (Reason: nausea and vomiting) Qty: 10 RF: 0 diltiazem HCl 120 mg capsule,extended release 24hr 120 mg PO DAILY RF: 0 losartan 50 mg Tablet 50 mg PO DAILY RF: 0 hydroxyzine HCl 25 mg tablet 25 mg PO QHS RF: 0 bupropion HCl 150 mg tablet extended release 24 hr 150 mg PO DAILY RF: 0 Referrals / Follow Up: Nicky Mccall MD [Primary Care Provider] - In 1 Week Disposition Disposition (needs filled in before D/C Order can be placed): Against Medical Advice Documented by User: Dr. Conrado Ray MD 12/22/21 07:08 Providers Date of Admission: 12/20/21 Reason For Visit: GI BLEED Medications at Discharge Home Medications ergocalciferol (vitamin D2) 50,000 unit PO MO 07/03/20 furosemide 20 mg PO DAILY PRN PRN 07/03/20 rizatriptan 10 mg PO .X1 PRN PRN 07/03/20 ondansetron 4 mg PO Q8H PRN #10 tab 05/21/21 diltiazem HCl 120 mg PO DAILY 05/25/21 bupropion HCl 150 mg PO DAILY 12/20/21 hydroxyzine HCl 25 mg PO QHS 12/20/21 losartan 50 mg PO DAILY 12/20/21 ABG / Lab / Microbiology Data Result Diagrams: 12/21/21 05:25 12/21/21 05:25 Discharge Plan Admission Admit Date/Time: 12/20/21 15:26 Attending Provider: Conrado Ray Primary Care Provider: Nicky Mccall Discharge Orders/Prescriptions Prescriptions: Continued rizatriptan 10 MG tablet 10 mg PO .X1 PRN PRN (Reason: migraines) RF: 0 furosemide 20 MG tablet 20 mg PO DAILY PRN PRN (Reason: Swelling) RF: 0 ergocalciferol (vitamin D2) 50,000 UNIT capsule 50,000 unit PO MO RF: 0 ondansetron 4 mg tablet,disintegrating 4 mg PO Q8H PRN (Reason: nausea and vomiting) Qty: 10 RF: 0 diltiazem HCl 120 mg capsule,extended release 24hr 120 mg PO DAILY RF: 0 losartan 50 mg Tablet 50 mg PO DAILY RF: 0 hydroxyzine HCl 25 mg tablet 25 mg PO QHS RF: 0 bupropion HCl 150 mg tablet extended release 24 hr 150 mg PO DAILY RF: 0 Referrals / Follow Up: Nicky Mccall MD [Primary Care Provider] - In 1 Week Disposition Disposition (needs filled in before D/C Order can be placed): Against Medical Advice Charges/Coding Addendum Addendum: Addendum: Dr. Ray: I personally reviewed the chart and examined the patient, and agree with the above findings. 41-year-old female presents to the hospital with acute viral gastroenteritis and a lower GI bleed. Her hemoglobin is unremarkable and highly stable. Given the amount of diarrhea, she likely had a fissure versus erosion leading to the blood in her stool. Awaiting evaluation by gastroenterology for possible scope. She is still complaining of pain despite having a normal CT scan of her abdomen and pelvis this is likely cramping pain from her acute gastroenteritis and should resolve on its own. She did have an allergic reaction to the CT scan and had received medication for this which has resolved at this time. Unfortunately she has decided to leave [facility] prior to evaluation by gastroenterology, we discussed that pending gastroenterology's review she could end up potentially being discharged later this evening or potentially needing scope or an EGD in the a.m. However she elected to leave the hospital. Cl inical time spent in all aspects of patient care: 25 minutes Visit Charges OBSV E&M: 93086 Observation care discharge
== END 2021-12-21 16:50 | disposition left against medical advice (07) ==
LOC: ED 15:22 → MS3 18:04
PROVIDERS: Admitting Provider Internal Medicine; Emergency Provider Emergency Medicine; PCP Internal Medicine; Visit Provider Family Medicine
DX: K52.9 Noninfective gastroenteritis and colitis, unspecified (principal); K62.5 Hemorrhage of anus and rectum; K21.9 Gastro-esophageal reflux disease without esophagitis; I10 Essential (primary) hypertension; F41.9 Anxiety disorder, unspecified; F32.A Depression, unspecified; T78.49XA Other allergy, initial encounter; Y92.239 Unspecified place in hospital as the place of occurrence of the external cause; E66.9 Obesity, unspecified; Z68.30 Body mass index [BMI] 30.0-30.9, adult; K58.9 Irritable bowel syndrome, unspecified; Z79.899 Other long term (current) drug therapy; Z87.891 Personal history of nicotine dependence; G43.909 Migraine, unspecified, not intractable, without status migrainosus
CPT/HCPCS: 36415; 74176; 80048; 83605; 83735; 85014; 85018; 85025; 96361; 96365; 96375; 96376; 99218; 99251; 99284; J7030; Q9967; A4216; G0378; G0463; J2405

== ENCOUNTER 2022-10-06 17:23 | Emergency (ER) | payer BC, SELFPAY ==
[2022-10-06 17:24] VITALS: BP 144/88; PULSE 91; RESP 16; TEMP 36.3; O2SAT 99; BMI 30.5
[2022-10-06 19:49] LABS: Bacteria 0 SEEN /hpf (None Seen); Mucous, Urine 0 SEEN /hpf (<or=2+); Red Blood Cells-Urine 0 SEEN /hpf (0-5); White Blood Cells 0 SEEN /hpf (0-5)
[2022-10-06 19:53] LABS: Color, Urine Straw (Yellow); Glucose, Dipstick Normal (Normal); Ketone-Dipstick Negative (Negative); Leukocyte Esterase-Dipstick Negative /ul (Negative); Nitrite-Dipstick Negative (Negative); Occult Blood-Urine Negative /ul (Negative); Protein-Dipstick Negative (Negative); Specific Gravity, Urine 1.015 (1.002-1.030); Urine Bilirubin Dipstick Negative (Negative); Urine Clarity Clear (Clear); Urine Urobilinogen Normal (Normal)
[2022-10-06 20:02] LABS: Squamous Epithelial Cells - UA 0-5 SEEN /hpf (5-10)
[2022-10-06 20:02] LABS: Absolute Lymphocyte Count 3.23 X10^3/uL (0.83-4.51); Basophil# 0.05 X10^3/uL; Basophil% 0.4 % (0-1); Eosinophil# 0.22 X10^3/uL; Eosinophils% 1.6 % (0-5); Hematocrit 39.4 % (37-47); Hemoglobin 13.6 g/dL (12.0-15.0); Lymphocyte # 3.23 X10^3/ul (0.83-4.51); Lymphocyte % 24.1 % (19-41); Mean Corp Hgb Conc 34.5 g/dL (32-36); Mean Corpuscular Hgb 34.2 pg (27.0-32.0); Mean Platelet Vol. 10.2 fl (6.2-12.0); Monocyte# 0.81 X10^3/uL; NRBC Flagged by Analyzer 0 % (0-5); Neutrophil # 9.02 X10^3/uL (2.7-7.7); Neutrophil % 67.4 % (47-70); Platelet Count 221 K/mm3 (150-450); RBC Distribution Width CV 11.9 % (11.6-14.6); RBC Distribution Width SD 43.5 fl (35.1-43.9); Red Blood Count 3.98 M/mm3 (4.2-5.4); White Blood Count 13.4 K/mm3 (4.4-11.0)
--- NOTE | 2022-10-06 20:16 | CT_ITS ---
STUDY: CT ABDOMEN AND PELVIS WITH CONTRAST REASON FOR EXAM: Female, 42 years old. abdominal pain RADIATION DOSAGE (If Supplied By Facility): CTDIvol = ( 17.00 ) mGy, DLP = ( 1097.67 ) mGycm TECHNIQUE: Transaxial images were obtained from the dome of the diaphragm to the symphysis pubis without oral contrast. IV 100mL Isovue-370 was administered. Sagittal and coronal images were reconstructed. Individualized dose optimization techniques were used for this CT. COMPARISON: 12/20/2021 FINDINGS: The visualized lung bases are unremarkable. The visualized portions of the heart are within normal limits. 3 cm cyst in the anterior segment the right lobe of the liver. There is non-visualization of the gallbladder, which may be secondary to either contraction or a prior cholecystectomy. Normal spleen. Normal pancreas. Normal bilateral adrenal glands. Normal right kidney. Normal left kidney. Normal visualized stomach. Normal small intestine. Normal colon. There are surgical clips in the region of the appendix consistent with a prior appendectomy. Normal abdominal aorta. Normal inferior vena cava. Normal retroperitoneum. Normal urinary bladder. Normal abdominal wall. Normal osseous structures. CT/Abdomen/Pelvis W IV Cont ONLY IMPRESSION: Normal enhanced CT of the abdomen and pelvis. Electronically Signed: Juan Gama MD at 22:23 [facility] ,
--- NOTE | 2022-10-06 20:20 | EDS_ITS ---
HPI HPI - GI History of Present Illness Chief Complaint: Flank Pain Narrative Narrative: 42-year-old female presenting with right-sided abdominal pain. She states he has a distant history of kidney stone but states it does not feel like this. It started as a dull ache this morning and progressively has worsened. She has nausea without vomiting. She states she had some diarrhea today. She is passing flatus. She has not had a fever at home. She does admit to chills. Patient has history of appendectomy, cholecystectomy, hysterectomy. She also has a history of some partial small bowel obstruction. She does not have any urinary or vaginal complaints. PFSH PFSH Medical History Abdominal pain Abnormal stress test Anxiety and depression Chest pain Essential hypertension GERD (gastroesophageal reflux disease) Hepatic adenoma IBS (irritable bowel syndrome) NSVT (nonsustained ventricular tachycardia) Obesity (BMI 30.0-34.9) Partial obstruction of small intestine RUQ pain Tobacco use Home Medications ergocalciferol (vitamin D2) 1,250 mcg (50,000 unit) capsule 50,000 unit PO MO supplement 07/03/20 [History Last Taken 11/03/20] furosemide 20 mg tablet 20 mg PO DAILY PRN PRN Swelling 07/03/20 [History Last Taken Unknown] rizatriptan 10 mg tablet 10 mg PO .X1 PRN PRN migraines 07/03/20 [History Last Taken Unknown] ondansetron 4 mg disintegrating tablet 4 mg PO Q8H PRN nausea and vomiting #10 tabs 05/21/21 [Rx Last Taken Unknown] diltiazem HCl 120 mg capsule,extended release 24 hr 120 mg PO DAILY 05/25/21 [History Last Taken Unknown] bupropion HCl 150 mg 24 hr tablet, extended release 150 mg PO DAILY 12/20/21 [History Last Taken Unknown] hydroxyzine HCl 25 mg tablet 25 mg PO QHS 12/20/21 [History Last Taken Unknown] losartan 50 mg tablet 50 mg PO DAILY 12/20/21 [History Last Taken Unknown] diphenhydramine HCl 25 mg capsule (Benadryl) 25 mg PO Q8H PRN allergic reaction #12 caps 10/06/22 [Rx Last Taken Unknown] epinephrine 0.3 mg/0.3 mL injection, auto-injector (EpiPen 2-Mike) 0.3 mg (0.3 mL) IM Q4H PRN anaphylaxis #2 ea 10/06/22 [Rx Last Taken Unknown] famotidine 20 mg tablet (Pepcid) 20 mg PO BID #4 tabs 10/06/22 [Rx Last Taken Unknown] prednisone 50 mg tablet 50 mg PO DAILY #2 tabs 10/06/22 [Rx Last Taken Unknown] Allergy/AdvReac Type Severity Reaction Status Date / Time latex Allergy Mild IRRIATION, Verified 10/06/22 17:25 OR IF SHE INGEST SHE VOMITS. Iodine and Iodide Containing Allergy Anaphylaxis Verified 10/06/22 17:25 Produc morphine Allergy Itching Verified 10/06/22 17:25 Penicillins Allergy Anaphylaxis Verified 10/06/22 17:25 meperidine [From Demerol] AdvReac Nausea Verified 10/06/22 17:25 propoxyphene AdvReac Nausea Verified 10/06/22 17:25 [From Darvocet-N] varenicline [From Chantix] AdvReac Turns me Verified 10/06/22 17:25 into a crazy person Surgical History History of carpal tunnel release History of surgery of liver Status post appendectomy Status post cholecystectomy Status post hysterectomy Social History Smoking Status: Former smoker alcohol intake: current details: occasional substance use type: does not use ROS ROS ED Constitutional Constitutional ED: Reports chills; Denies fever(s) or subjective ENT ENT ED: Denies rhinorrhea or sore throat Cardiovascular Cardiovascular: Denies chest pain or palpitations Respiratory/Chest Respiratory/Chest: Denies cough or dyspnea Gastrointestinal Gastrointestinal: Reports abdominal pain, diarrhea and nausea; Denies vomiting Genitourinary Genitourinary ED: Denies dysuria or hematuria Musculoskeletal Musculoskeletal: Denies arthralgias or myalgias Integumentary Denies abscess or Abrasions Neurologic Neurologic: Denies headache(s) or paresthesias Psychiatric Psychiatric: Denies anxiety or depression EXAM Physical Exam Const Vital Signs: 10/06/22 17:24 10/06/22 20:40 10/06/22 21:53 Temperature 97.3 F L Temperature Source Temporal Pulse Rate 91 83 82 Respiratory Rate 16 16 16 Blood Pressure 144/88 H 142/104 H 122/72 H Blood Pressure Mean 106 116 88 Pulse Ox 99 99 100 Oxygen Delivery Method Room Air Room Air Nasal Cannula Oxygen Flow Rate (L/min) 3 Positive well nourished General Appearance ED: NAD; Negative for pallor HEENT Reports TM's clear and moist mucous membranes normocephalic Tympanic Membrane ED: Yes TM's clear Eyes PERRL and EOMs intact bilaterally Neck no lymphadenopathy Resp normal respiratory effort and clear to auscultation bilaterally Cardio regular rate and regular rhythm GI GI Narrative: Tenderness to palpation right upper and lower quadrants. No CVA tenderness. Neuro CN's II-XII intact bilaterally, moves all extremities and no sensory deficits noted Sensorium / Orientation: alert Skin no wounds General Skin Exam: Negative for jaundice or pallor MDM MDM MDM Narrative Medical decision making narrative: 42-year-old female presenting with abdominal pain. Patient states it is right- sided. It began earlier today and she has not had a fever but states she has the chills. She has had some diarrhea. I did obtain blood work and her CBC shows a leukocytosis of 13.4. Hemoglobin hematocrit are stable. Platelets are normal. Serum test negative. Urinalysis normal without evidence of infection. BMP within normal limits. Given the elevated white blood cell count I felt the patient needed a CT. She admits to a contrast allergy. She states that she gets hives with this. She was premedicated with Solu-Medrol 40 mg IV, and Benadryl [address] she did have a little bit of a rash but she did not appear anaphylactic. She was given 80 mg of Solu-Medrol and [address] of the abdomen pelvis was negative for acute abdominal process. At this point the patient has has a relatively negative work-up. I feel she stable for discharge home. Return precautions were discussed. Did send the patient home with prednisone, Pepcid, Benadryl, and an EpiPen. Patient discharged in stable condition. Impression: 1. Abdominal pain 2. Leukocytosis 3. Nausea 4. Allergic reaction Lab Data Attestation: I reviewed the patient's lab results. Labs: Laboratory Results - last 24 hr 10/06/22 10/06/22 10/06/22 19:30 19:50 19:50 WBC 13.4 H RBC 3.98 L Hgb 13.6 Hct 39.4 MCV 99.0 MCH 34.2 H MCHC 34.5 RDW Std Deviation 43.5 RDW Coeff of Lynette 11.9 Plt Count 221 MPV 10.2 Immature Gran % (Auto) 0.500 Neut % (Auto) 67.4 Lymph % (Auto) 24.1 Dougherty % (Auto) 6.0 Eos % (Auto) 1.6 Baso % (Auto) 0.4 Absolute Neuts (auto) 9.0 H Absolute Lymphs (auto) 3.23 Nucleated RBC % 0 Sodium Potassium Chloride Carbon Dioxide Anion Gap BUN Creatinine Estim Creat Clear Calc Est GFR (MDRD) Af Amer Est GFR (MDRD) Non-Af BUN/Creatinine Ratio Glucose Calcium Serum , Qual NEGATIVE Urine Color Straw Urine Clarity Clear Urine pH 6.0 Ur Specific [place] 1.015 Urine Protein Negative Urine Glucose (UA) Normal Urine Ketones Negative Urine Occult Blood Negative Urine Nitrite Negative Urine Bilirubin Negative Urine Urobilinogen Normal Ur Leukocyte Esterase Negative Urine RBC 0 SEEN Urine WBC 0 SEEN Ur Squamous Epith Cells 0-5 SEEN Urine Bacteria 0 SEEN Urine Mucus 0 SEEN 10/06/22 19:50 WBC RBC Hgb Hct MCV MCH MCHC RDW Std Deviation RDW Coeff of Lynette Plt Count MPV Immature Gran % (Auto) Neut % (Auto) Lymph % (Auto) Dougherty % (Auto) Eos % (Auto) Baso % (Auto) Absolute Neuts (auto) Absolute Lymphs (auto) Nucleated RBC % Sodium 139 Potassium 4.1 Chloride 106 Carbon Dioxide 27.0 Anion Gap 6 BUN 14 Creatinine 0.73 Estim Creat Clear Calc 87.58 Est GFR (MDRD) Af Amer 112 Est GFR (MDRD) Non-Af 93 BUN/Creatinine Ratio 19.1 Glucose 80 Calcium 9.1 Serum , Qual Urine Color Urine Clarity Urine pH Ur Specific [place] Urine Protein Urine Glucose (UA) Urine Ketones Urine Occult Blood Urine Nitrite Urine Bilirubin Urine Urobilinogen Ur Leukocyte Esterase Urine RBC Urine WBC Ur Squamous Epith Cells Urine Bacteria Urine Mucus Radiography Diagnostic Testing: Clinical Impression(s) from Imaging Studies Abdomen/Pelvis CT 10/06/22 20:16 IMPRESSION: Normal enhanced CT of the abdomen and pelvis. Electronically Signed: Juan Gama MD at 22:23 EST , Discharge Plan Triage Chief Complaint: Flank Pain ED Provider: Isaiah Pederson Dx/Rx/DC Orders Instructions: ED Abdominal Pain Unkn Cause Fem, ED ADVERSE DRUG REACTION Allergic Prescriptions: New prednisone 50 mg tablet 50 mg PO DAILY Qty: 2 0RF famotidine [Pepcid] 20 mg tablet 20 mg PO BID Qty: 4 0RF diphenhydramine HCl [Benadryl] 25 mg capsule 25 mg PO Q8H PRN (Reason: allergic reaction) Qty: 12 0RF epinephrine [EpiPen 2-Mike] 0.3 mg/0.3 mL auto-injector 0.3 mg IM Q4H PRN (Reason: anaphylaxis) Qty: 2 0RF No Action rizatriptan 10 MG tablet 10 mg PO .X1 PRN PRN (Reason: migraines) furosemide 20 MG tablet 20 mg PO DAILY PRN PRN (Reason: Swelling) ergocalciferol (vitamin D2) 50,000 UNIT capsule 50,000 unit PO MO ondansetron 4 mg tablet,disintegrating 4 mg PO Q8H PRN (Reason: nausea and vomiting) Qty: 10 0RF diltiazem HCl 120 mg capsule,extended release 24hr 120 mg PO DAILY losartan 50 mg Tablet 50 mg PO DAILY hydroxyzine HCl 25 mg tablet 25 mg PO QHS Label Comments: TAKE 1 TABLET BY MOUTH EVERY 6 HOURS NEEDED FOR ITCHING/RASH. bupropion HCl 150 mg tablet extended release 24 hr 150 mg PO DAILY Label Comments: TAKE 1 TABLET BY MOUTH EVERY DAY Primary Care Provider: Nicky Mccall Referrals: Nicky Mccall MD [Primary Care Provider] - Disposition Disposition: Home, Self Care
[2022-10-06 20:23] LABS: Anion Gap 6 (5-15); BUN 14 mg/dL (7-18); BUN/Creat Ratio 19.1 RATIO (10-20); Calcium,Total 9.1 mg/dL (8.5-10.1); Chloride 106 mmol/L (98-107); Creatinine, Serum 0.73 mg/dL (0.55-1.02); EST Glomerular Filtration Rate 93 mL/min (>60); Est Glom Filt Rate - Afr Amer 112 mL/min (>60); Estimated Creatinine Clearance 87.58 ml/min; Glucose 80 mg/dL (74-106); Potassium 4.1 mmol/L (3.5-5.1); Sodium Level 139 mmol/L (136-145)
[2022-10-06 20:30] LABS: Internal QC Validated? YES +Cl - CLEAR BKGD; Pregnancy, Serum, hCG Quali. NEGATIVE Negative
[2022-10-06] MEDS: Ondansetron 4 MG/2 ML Vial IV (20:30)
[2022-10-06] MEDS: HYDROmorphone 0.5 MG/0.5 ML SYRINGE IV (20:30)
[2022-10-06] MEDS: DiphenhydrAMINE 50 MG/ML Syringe IV (20:31)
[2022-10-06 20:40] VITALS: BP 142/104; PULSE 83; RESP 16; O2SAT 99
--- NOTE | 2022-10-06 21:51 | ED.RN ---
pt returned from CT with red face, blotchy red arms, hives. throat feels raw. see MAR for pre-meds that were given. sats 98% on RA but placed on 4L for comfort. Dr. Jones notified before talking with Dr. Pederson who was then also notified. pt very itchy. see vitals.
[2022-10-06 21:53] VITALS: BP 122/72; PULSE 82; RESP 16; O2SAT 100
[2022-10-06] MEDS: MethylPREDNISolone 125 MG/2 ML Vial 80 MG IV (22:09)
[2022-10-06] MEDS: Famotidine 200 MG/20 ML MDV 20 MG in 0.9% Normal Saline (Pres. free 8 ML 300 MG IV (22:34)
[2022-10-06 22:52] VITALS: BP 119/75; O2SAT 95
== END 2022-10-06 23:15 | disposition home or self-care (01) ==
PROVIDERS: Emergency Provider Student in an Organized Health Care Education/Training Program; PCP Internal Medicine; Visit Provider Student in an Organized Health Care Education/Training Program
DX: R10.9 Unspecified abdominal pain (principal); D72.829 Elevated white blood cell count, unspecified; R11.0 Nausea; T78.40XA Allergy, unspecified, initial encounter; I10 Essential (primary) hypertension; R19.7 Diarrhea, unspecified; Z79.52 Long term (current) use of systemic steroids; Z87.891 Personal history of nicotine dependence
CPT/HCPCS: 74177; 80048; 81001; 84703; 85025; 96374; 96375; 96376; 99283; Q9967; A4216; J2405; J3490

== ENCOUNTER 2022-12-19 16:41 | Emergency (ER) | payer BC, SELFPAY ==
[2022-12-19 16:42] VITALS: BP 152/114; PULSE 124; RESP 16; TEMP 36.8; O2SAT 96; BMI 30.9
[2022-12-19 16:51] VITALS: BP 163/91; PULSE 109; RESP 17; O2SAT 98
[2022-12-19] MEDS: Ketorolac 15 MG/ML Vial IV (17:25)
[2022-12-19] MEDS: 0.9% Normal Saline 1,000 ML 1000 ML IV (17:25)
--- NOTE | 2022-12-19 18:24 | EX.ED.VIS.HA ---
HPI History of Present Illness Chief Complaint: Headache Detail of Chief Complaint: Positional headache status post LP December 16 Informant: patient Onset/Context/Timing Onset: Days Context: Sudden Timing: Continuous and Waxes and wanes Location: Global Current Severity: Mild Maximum Severity: Severe Worsened by: Upright position Relieved by: Better if supine Associated Symptoms/Injury Associated Symptoms: Positive for Nausea; Negative for Fever, Vomiting, Sore Throat, Sinus Pressure, Numbness, Tingling, Preceding Aura, Visual Changes, Blurred Vision, Photophobia or Visual Loss Injury - KING: Negative for Direct Trauma Narrative Narrative: Patient is a 42-year-old woman. She has history of migraine headaches. Her migraine headache was different. She had a CAT scan followed by a lumbar puncture by emergency physician at [facility]. Those records are not available for review. Patient denies double vision or blurred vision. She does report mild light sensitivity. She denies sonophobia. She denies fever or chills. She does complain of mild neck pain. She denies cardiac respiratory symptoms. She does endorse nausea without vomiting diarrhea. She denies urologic symptoms. She denies problems with coordination or balance. She denies paresthesia, anesthesia or motor weakness. Prior similar symptoms: No Recent Illness/Hospitalization: Yes PFSH PFSH Medical History Abdominal pain Abnormal stress test Anxiety and depression Chest pain Essential hypertension GERD (gastroesophageal reflux disease) Hepatic adenoma IBS (irritable bowel syndrome) NSVT (nonsustained ventricular tachycardia) Obesity (BMI 30.0-34.9) Partial obstruction of small intestine RUQ pain Tobacco use Home Medications ergocalciferol (vitamin D2) 1,250 mcg (50,000 unit) capsule 50,000 unit PO MO supplement 07/03/20 [History Last Taken 11/03/20] furosemide 20 mg tablet 20 mg PO DAILY PRN PRN Swelling 07/03/20 [History Last Taken Unknown] rizatriptan 10 mg tablet 10 mg PO .X1 PRN PRN migraines 07/03/20 [History Last Taken Unknown] ondansetron 4 mg disintegrating tablet 4 mg PO Q8H PRN nausea and vomiting #10 tabs 05/21/21 [Rx Last Taken Unknown] diltiazem HCl 120 mg capsule,extended release 24 hr 120 mg PO DAILY 05/25/21 [History Last Taken Unknown] bupropion HCl 150 mg 24 hr tablet, extended release 150 mg PO DAILY 12/20/21 [History Last Taken Unknown] hydroxyzine HCl 25 mg tablet 25 mg PO QHS 12/20/21 [History Last Taken Unknown] losartan 50 mg tablet 50 mg PO DAILY 12/20/21 [History Last Taken Unknown] diphenhydramine HCl 25 mg capsule (Benadryl) 25 mg PO Q8H PRN allergic reaction #12 caps 10/06/22 [Rx Last Taken Unknown] epinephrine 0.3 mg/0.3 mL injection, auto-injector (EpiPen 2-Mike) 0.3 mg (0.3 mL) IM Q4H PRN anaphylaxis #2 ea 10/06/22 [Rx Last Taken Unknown] famotidine 20 mg tablet (Pepcid) 20 mg PO BID #4 tabs 10/06/22 [Rx Last Taken Unknown] prednisone 50 mg tablet 50 mg PO DAILY #2 tabs 10/06/22 [Rx Last Taken Unknown] fhiwttqwjz-zjaatyfuwnvgt-virqzzxh 50 mg-300 mg-40 mg capsule (Fioricet) 1 cap PO Q8H PRN pain 3 days #7 caps 12/19/22 [Rx Last Taken Unknown] Allergy/AdvReac Type Severity Reaction Status Date / Time latex Allergy Mild IRRIATION, Verified 12/19/22 16:54 OR IF SHE INGEST SHE VOMITS. Iodine and Iodide Containing Allergy Anaphylaxis Verified 12/19/22 16:54 Produc morphine Allergy Itching Verified 12/19/22 16:54 Penicillins Allergy Anaphylaxis Verified 12/19/22 16:54 meperidine [From Demerol] AdvReac Nausea Verified 12/19/22 16:54 propoxyphene AdvReac Nausea Verified 12/19/22 16:54 [From Darvocet-N] varenicline [From Chantix] AdvReac Turns me Verified 12/19/22 16:54 into a crazy person Surgical History History of carpal tunnel release History of surgery of liver Status post appendectomy Status post cholecystectomy Status post hysterectomy Social History Smoking Status: Former smoker alcohol intake: current details: occasional substance use type: does not use ROS ROS ED Constitutional Constitutional ED: Denies chills, fever(s), subjective, sweats or weight loss Eyes Eyes: Reports other Details: Photophobia ; Denies blurry vision, change in vision or diplopia ENT ENT ED: Denies ear pain, rhinorrhea or sore throat Cardiovascular Cardiovascular: Denies chest pain or palpitations Respiratory/Chest Respiratory/Chest: Denies cough, dyspnea or dyspnea on exertion Gastrointestinal Gastrointestinal: Reports nausea; Denies abdominal pain or vomiting Genitourinary Genitourinary ED: Denies dysuria, hematuria or urinary frequency Musculoskeletal Musculoskeletal: Reports neck pain; Denies arthralgias, back pain or myalgias Integumentary Denies abscess, Abrasions or rash Neurologic Neurologic: Reports headache(s); Denies paresthesias or weakness Endocrine Endocrinology: Denies polydipsia or polyphagia Hematologic/Lymphatic Hematologic/Lymphatic: Denies easy bleeding or easy bruising EXAM Physical Exam Const Vital Signs: 12/19/22 16:42 12/19/22 16:51 12/19/22 18:52 Temperature 98.2 F Temperature Source Temporal Pulse Rate 124 H 109 H 90 Respiratory Rate 16 17 18 Blood Pressure 152/114 H 163/91 H 153/98 H Blood Pressure Mean 126 115 116 Pulse Ox 96 98 99 Oxygen Delivery Method Room Air Room Air Room Air Positive well nourished, well developed and obese General Appearance ED: well developed and pallor; Negative for cyanotic, diaphoretic or NAD Nutritional Appearance: obese HEENT Reports normocephalic, TM's clear and moist mucous membranes HEENT Narrative: Nares patent. Posterior pharynx is normal. atraumatic Tympanic Membrane ED: Yes TM's clear Eyes PERRL and EOMs intact bilaterally General Eye ED: Negative for pale conjunctiva or scleral icterus Neck no lymphadenopathy, supple, no meningeal signs and no JVD Resp normal respiratory effort and clear to auscultation bilaterally Cardio regular rhythm, S1 normal heart sound, S2 normal heart sound and no murmurs Rate: tachycardic GI non-tender and non-distended Auscultation: normoactive bowel sounds Back/Spine no CVA tenderness Extremity normal to inspection, full ROM and normal capillary refill Neuro oriented x3, CN's II-XII intact bilaterally and no sensory deficits noted Neuro Narrative: There is no dysmetria. DTR symmetric with no clonus Babinski sign Yashira Coma Scale: document GCS findings Spontaneous Obeys Commands Oriented 15 Sensorium / Orientation: awake and alert Motor Exam: strength 5/5 throughout Psych mental status grossly normal Skin General Skin Exam: elasticity normal, turgor normal and pallor; Negative for jaundice Lesions: no lesions Rashes: no rashes MDM MDM MDM Narrative Medical decision making narrative: Patient's history and physical exam is consistent with spinal headache. IV was established. She received 1 L normal saline. She also received Toradol since she drove herself to the emergency department. IV caffeine is no longer available. Paged anesthesia. Spoke with Dr. Irvin Sandoval. He informed me that they do not take care of complications from outside facilities. I informed him that she is in the emergency room and that she needs treatment. He suggested I contact Dr. Peguero. I did. He agrees with treatment. He would like the patient to contact his office at 830 the morning he will see her and perform blood patch. Patient was made aware of this. History & Record Review Discussion w/independent historian: Patient Additional record(s) reviewed:: No prior records (Nothing available on [facility] for review) Treatment and Re-Evaluation Narrative: Patient was informed of plan. Patient was reassessed at 1810. 500 cc of the saline has infused. She reports minimal improvement. I was informed at 1848 that patient had 10 minutes of relief. She states the headache is now worse. She did just go to the bathroom. Will order IV Dilaudid since she will have someone pick her up. Fioricet was ordered per Dr. Peguero's request. Patient did have improvement after Dilaudid. She felt better and raised her bed. She is now has a headache again. She was instructed she needs to lie flat at home. Call Dr. Green's office in the morning. He will see her and perform blood patch. Discharge Plan Triage Chief Complaint: Headache ED Provider: John Helton Dx/Rx/DC Orders Clinical Impression: Spinal headache Instructions: ED Headache After Spinal Tap ... Prescriptions: New bekqulvcuy-vlzmezvhiymng-ruro [Fioricet] 50-300-40 mg capsule 1 cap PO Q8H PRN (Reason: pain) 3 Days Qty: 7 0RF No Action rizatriptan 10 MG tablet 10 mg PO .X1 PRN PRN (Reason: migraines) furosemide 20 MG tablet 20 mg PO DAILY PRN PRN (Reason: Swelling) ergocalciferol (vitamin D2) 50,000 UNIT capsule 50,000 unit PO MO ondansetron 4 mg tablet,disintegrating 4 mg PO Q8H PRN (Reason: nausea and vomiting) Qty: 10 0RF diltiazem HCl 120 mg capsule,extended release 24hr 120 mg PO DAILY losartan 50 mg Tablet 50 mg PO DAILY hydroxyzine HCl 25 mg tablet 25 mg PO QHS Label Comments: TAKE 1 TABLET BY MOUTH EVERY 6 HOURS NEEDED FOR ITCHING/RASH. bupropion HCl 150 mg tablet extended release 24 hr 150 mg PO DAILY Label Comments: TAKE 1 TABLET BY MOUTH EVERY DAY prednisone 50 mg tablet 50 mg PO DAILY Qty: 2 0RF famotidine [Pepcid] 20 mg tablet 20 mg PO BID Qty: 4 0RF diphenhydramine HCl [Benadryl] 25 mg capsule 25 mg PO Q8H PRN (Reason: allergic reaction) Qty: 12 0RF epinephrine [EpiPen 2-Mike] 0.3 mg/0.3 mL auto-injector 0.3 mg IM Q4H PRN (Reason: anaphylaxis) Qty: 2 0RF Primary Care Provider: Nicky Mccall Referrals: Marietta Peguero MD [Med Staff - Active Staff] - As soon as possible Nicky Mccall MD [Primary Care Provider] - Activity Restrictions/Additional Instructions: 1. Call Dr. Peguero's office in the morning at 8:30 AM. He will see you tomorrow for a blood patch. 2. You need to lie flat. Do not get up unless you need to use the restroom or get something to drink. Disposition Disposition: Home, Self Care
[2022-12-19 18:52] VITALS: BP 153/98; PULSE 90; RESP 18; O2SAT 99
[2022-12-19] MEDS: HYDROmorphone 0.5 MG/0.5 ML SYRINGE IV ×2 (19:02→20:55)
[2022-12-19 20:56] VITALS: BP 152/105; PULSE 83; RESP 18; O2SAT 95
[2022-12-19 22:00] VITALS: BP 148/89; PULSE 76; RESP 18; O2SAT 98
== END 2022-12-19 22:36 | disposition home or self-care (01) ==
PROVIDERS: Emergency Provider Emergency Medicine; PCP Internal Medicine; Visit Provider Emergency Medicine
DX: G97.1 Other reaction to spinal and lumbar puncture (principal); E66.9 Obesity, unspecified; Z87.891 Personal history of nicotine dependence
CPT/HCPCS: 96361; 96374; 96375; 96376; 99285; J7030; A4216

== ENCOUNTER 2022-12-22 14:24 | Emergency (ER) | payer BC, SELFPAY ==
[2022-12-22 14:24] VITALS: BP 137/99; PULSE 96; RESP 18; TEMP 36.6; O2SAT 97
--- NOTE | 2022-12-22 15:11 | EX.ED.VIS.HA ---
HPI History of Present Illness Chief Complaint: Headache Detail of Chief Complaint: Headache Informant: patient Narrative Narrative: Patient presents with a headache that started initially 7 days ago. 6 days ago she went to [facility] where she had a CT scan as well as a lumbar puncture and was treated with a cocktail and she had good pain relief at that time. Patient states about 24 hours later started having severe headache again and was seen in our emergency department on the and diagnosed with a spinal fluid leak and was told she would need a lumbar blood patch. Patient followed up with her pain management doctor, DR Peguero who attempted to get blood from patient unsuccessfully and then he injected apparently saline into the lumbar area and she has had no relief with that. Patient continues to complain of headache and feeling lightheaded and dizzy with standing and feeling off balance. Headache worse with standing. She had some nausea but no vomiting. She complains of some mild photophobia. PFSH PFSH Medical History Abdominal pain Abnormal stress test Anxiety and depression Chest pain Essential hypertension GERD (gastroesophageal reflux disease) Hepatic adenoma IBS (irritable bowel syndrome) NSVT (nonsustained ventricular tachycardia) Obesity (BMI 30.0-34.9) Partial obstruction of small intestine RUQ pain Tobacco use Home Medications ergocalciferol (vitamin D2) 1,250 mcg (50,000 unit) capsule 50,000 unit PO MO supplement 07/03/20 [History Last Taken 11/03/20] furosemide 20 mg tablet 20 mg PO DAILY PRN PRN Swelling 07/03/20 [History Last Taken Unknown] rizatriptan 10 mg tablet 10 mg PO .X1 PRN PRN migraines 07/03/20 [History Last Taken Unknown] ondansetron 4 mg disintegrating tablet 4 mg PO Q8H PRN nausea and vomiting #10 tabs 05/21/21 [Rx Last Taken Unknown] diltiazem HCl 120 mg capsule,extended release 24 hr 120 mg PO DAILY 05/25/21 [History Last Taken Unknown] bupropion HCl 150 mg 24 hr tablet, extended release 150 mg PO DAILY 12/20/21 [History Last Taken Unknown] hydroxyzine HCl 25 mg tablet 25 mg PO QHS 12/20/21 [History Last Taken Unknown] losartan 50 mg tablet 50 mg PO DAILY 12/20/21 [History Last Taken Unknown] diphenhydramine HCl 25 mg capsule (Benadryl) 25 mg PO Q8H PRN allergic reaction #12 caps 10/06/22 [Rx Last Taken Unknown] epinephrine 0.3 mg/0.3 mL injection, auto-injector (EpiPen 2-Mike) 0.3 mg (0.3 mL) IM Q4H PRN anaphylaxis #2 ea 10/06/22 [Rx Last Taken Unknown] famotidine 20 mg tablet (Pepcid) 20 mg PO BID #4 tabs 10/06/22 [Rx Last Taken Unknown] prednisone 50 mg tablet 50 mg PO DAILY #2 tabs 10/06/22 [Rx Last Taken Unknown] xjstmlcxln-kdxqrvrvutwfc-tegzijaw 50 mg-300 mg-40 mg capsule (Fioricet) 1 cap PO Q8H PRN pain 3 days #7 caps 12/19/22 [Rx Last Taken Unknown] Allergy/AdvReac Type Severity Reaction Status Date / Time latex Allergy Mild IRRIATION, Verified 12/22/22 14:27 OR IF SHE INGEST SHE VOMITS. Iodine and Iodide Containing Allergy Anaphylaxis Verified 12/22/22 14:27 Produc morphine Allergy Itching Verified 12/22/22 14:27 Penicillins Allergy Anaphylaxis Verified 12/22/22 14:27 meperidine [From Demerol] AdvReac Nausea Verified 12/22/22 14:27 propoxyphene AdvReac Nausea Verified 12/22/22 14:27 [From Darvocet-N] varenicline [From Chantix] AdvReac Turns me Verified 12/22/22 14:27 into a crazy person Family History no significant family his Surgical History History of carpal tunnel release History of surgery of liver Status post appendectomy Status post cholecystectomy Status post hysterectomy Social History Smoking Status: Former smoker alcohol intake: current details: occasional substance use type: does not use ROS ROS ED Review of Systems ROS Unobtainable: other Constitutional Constitutional ED: Reports lethargy; Denies chills, fever(s), sweats or weight loss Eyes Eyes: Denies blurry vision, change in vision or diplopia ENT ENT ED: Denies rhinorrhea or sore throat Cardiovascular Cardiovascular: Denies chest pain, orthopnea or racing heartbeat Respiratory/Chest Respiratory/Chest: Denies cough, dyspnea, dyspnea on exertion, orthopnea or sputum Gastrointestinal Gastrointestinal: Denies abdominal pain, diarrhea, nausea or vomiting Genitourinary Genitourinary ED: Denies dysuria, hematuria or urinary frequency Musculoskeletal Musculoskeletal: Denies arthralgias, back pain, myalgias or neck pain Integumentary Denies abscess, Abrasions or rash Neurologic Neurologic: Reports headache(s) and other Details: Dizziness, feeling off balance ; Denies weakness Psychiatric Psychiatric: Denies anxiety, depression or suicidal thoughts Endocrine Endocrinology: Denies polydipsia, polyphagia or polyuria Hematologic/Lymphatic Hematologic/Lymphatic: Denies easy bleeding, easy bruising or lymphadenopathy Allergic/Immunologic Allergic/Immunologic ED: Denies mouth swelling, tongue swelling or urticaria EXAM Physical Exam Const Vital Signs: 12/22/22 14:24 12/22/22 15:22 12/22/22 16:24 Temperature 97.9 F 97.7 F L 98.6 F Temperature Source Temporal Temporal Temporal Pulse Rate 96 96 98 Respiratory Rate 18 18 18 Blood Pressure 137/99 H 137/99 H 135/98 H Blood Pressure Mean 111 111 110 Pulse Ox 97 98 66 Oxygen Delivery Method Room Air Room Air Room Air 12/22/22 18:00 Temperature 97.6 F L Temperature Source Temporal Pulse Rate 68 Respiratory Rate 18 Blood Pressure 123/80 H Blood Pressure Mean 94 Pulse Ox 99 Oxygen Delivery Method Room Air Positive well nourished and well developed General Appearance ED: well developed and NAD HEENT Reports TM's clear and moist mucous membranes normocephalic and atraumatic; Negative for trauma or tenderness Tympanic Membrane ED: Yes TM's clear Eyes PERRL and EOMs intact bilaterally General Eye ED: Negative for pale conjunctiva or scleral icterus Neck no lymphadenopathy, supple and no JVD General: Negative for tenderness Chest Wall inspection of chest normal and palpation of chest normal Chest: Negative for tenderness Resp normal respiratory effort and clear to auscultation bilaterally Effort and Inspection: Negative for respiratory distress or pain with movement Auscultation: Negative for rhonchi, wheezes or diminished lung sounds Cardio regular rate, regular rhythm, S1 normal heart sound, S2 normal heart sound and no murmurs Peripheral Pulses: pulses 2+ throughout GI normal to inspection, nondistended, normoactive bowel sounds, soft to palpation, non-tender, non-distended and no masses Back/Spine no CVA tenderness and no thoracic nor lumbar tenderness Extremity normal to inspection General Extremety ED: Negative for edema General Extremity: Negative for edema Neuro oriented x3, CN's II-XII intact bilaterally, no sensory deficits noted and gait normal Sensorium / Orientation: awake, alert, oriented to person, oriented to place and oriented to time Motor Exam: strength 5/5 throughout and strength abnormal Psych mental status grossly normal Skin no rashes or lesions noted and no wounds MDM MDM MDM Narrative Medical decision making narrative: Patient presents with severe headache. She has been seen several times for headache including 6 days ago when she had a lumbar puncture and CT scan of her brain. She was then subsequently seen and believed to have a post LP headache and referred to pain management for blood patch. They were unable to perform the blood patch however she did have saline placed in the lumbar region for volume to see if this would help her pain and it has not. I did medicate her with Reglan, Benadryl, and Toradol here. She was given liter normal saline fluid bolus. I did discuss case with pain management Dr. Peguero who would be happy to see patient and perform a blood patch. I did repeat a CT of her brain which was done without contrast that she has anaphylaxis to IV dye. CT was unremarkable. Blood patch performed by pain management physician in the department and patient stated that her headache actually got worse. She was medicated with Dilaudid. She continues to complain of severe headache. Discussed with hospitalist to evaluate for admission for intractable headache however given her ongoing pain and recent blood patch and interventions it was felt she should be transferred to a facility that had neurology in-house to evaluate patient. Patient wanted to go to [facility] however they did not have beds available. I discussed case with [facility] and patient was accepted to their facility for transfer for intractable headache. It is unclear if this headache is intractable migraine. She may need further evaluation such as MRI or MRA to evaluate vasculature further. Patient transferred in stable condition Lab Data Labs: Laboratory Results - last 24 hr 12/22/22 15:35 WBC 10.8 RBC 4.31 Hgb 14.1 Hct 43.0 MCV 99.8 H MCH 32.7 H MCHC 32.8 RDW Std Deviation 43.9 RDW Coeff of Lynette 11.9 Plt Count 187 MPV 11.2 Immature Gran % (Auto) 1.800 H Neut % (Auto) 63.5 Lymph % (Auto) 25.3 Cotton % (Auto) 6.8 Eos % (Auto) 1.8 Baso % (Auto) 0.8 Absolute Neuts (auto) 6.9 Absolute Lymphs (auto) 2.74 Nucleated RBC % 0 Differential Comment SCANNED Radiography Diagnostic Testing: Clinical Impression(s) from Imaging Studies Brain CT 12/22/22 15:36 IMPRESSION: There are no acute intracranial findings. Electronically Signed: Russ Marquez MD at 16:19 EDT , Discharge Plan Triage Chief Complaint: Headache ED Provider: Andria Brown Dx/Rx/DC Orders Clinical Impression: Acute intractable headache Prescriptions: No Action rizatriptan 10 MG tablet 10 mg PO .X1 PRN PRN (Reason: migraines) furosemide 20 MG tablet 20 mg PO DAILY PRN PRN (Reason: Swelling) ergocalciferol (vitamin D2) 50,000 UNIT capsule 50,000 unit PO MO ondansetron 4 mg tablet,disintegrating 4 mg PO Q8H PRN (Reason: nausea and vomiting) Qty: 10 0RF diltiazem HCl 120 mg capsule,extended release 24hr 120 mg PO DAILY losartan 50 mg Tablet 50 mg PO DAILY hydroxyzine HCl 25 mg tablet 25 mg PO QHS Label Comments: TAKE 1 TABLET BY MOUTH EVERY 6 HOURS NEEDED FOR ITCHING/RASH. bupropion HCl 150 mg tablet extended release 24 hr 150 mg PO DAILY Label Comments: TAKE 1 TABLET BY MOUTH EVERY DAY prednisone 50 mg tablet 50 mg PO DAILY Qty: 2 0RF famotidine [Pepcid] 20 mg tablet 20 mg PO BID Qty: 4 0RF diphenhydramine HCl [Benadryl] 25 mg capsule 25 mg PO Q8H PRN (Reason: allergic reaction) Qty: 12 0RF epinephrine [EpiPen 2-Mike] 0.3 mg/0.3 mL auto-injector 0.3 mg IM Q4H PRN (Reason: anaphylaxis) Qty: 2 0RF repuzeocpu-ajixndlwqkrcu-qsjk [Fioricet] 50-300-40 mg capsule 1 cap PO Q8H PRN (Reason: pain) 3 Days Qty: 7 0RF Primary Care Provider: Nicky Mccall Referrals: Nicky Mccall MD [Primary Care Provider] - Disposition Disposition: DC/Tx to Another Type of HCF
[2022-12-22 15:22] VITALS: BP 137/99; PULSE 96; RESP 18; TEMP 36.5; O2SAT 98
--- NOTE | 2022-12-22 15:36 | CT_ITS ---
STUDY: CT BRAIN WITHOUT CONTRAST REASON FOR EXAM: Female, 42 years old. LUMBAR PUNCTURE X6 DAYS AGO-GOT CSF LEAK BLOOD PATCH ATTEMPTED STILL HAS KING headache TECHNIQUE: Transaxial CT imaging of the brain was performed without administration of intravenous contrast material. Individualized dose optimization techniques were used for this CT. COMPARISON: 04.01.20 FINDINGS: Normal calvarium. Normal soft tissues. Normal size ventricles and extra-axial spaces for the patient''s age. Normal white matter tracts of the cerebral hemispheres. Normal basal ganglia and thalami. Normal brainstem. Normal cerebellum. There is no intracranial hemorrhage. There are no findings of an acute ischemic infarction. There is sinus disease. ASPECTS 10 CT/Brain/Head without Contrast IMPRESSION: There are no acute intracranial findings. Electronically Signed: Russ Marquez MD at 16:19 EDT ,
[2022-12-22] MEDS: Metoclopramide 10 MG/2 ML Vial IV (15:39)
[2022-12-22] MEDS: 0.9% Normal Saline 1,000 ML 1000 ML IV (15:39)
[2022-12-22] MEDS: Ketorolac 30 MG/ML Syringe IV (15:39)
[2022-12-22] MEDS: DiphenhydrAMINE 50 MG/ML Syringe 25 MG IV (15:39)
[2022-12-22 15:53] LABS: Absolute Lymphocyte Count 2.74 X10^3/uL (0.83-4.51); Absolute Neutrophil Count 6.9 X10^3/uL (2.0-7.7); Basophil# 0.09 X10^3/uL; Basophil% 0.8 % (0-1); Eosinophils% 1.8 % (0-5); Hemoglobin 14.1 g/dL (12.0-15.0); Lymphocyte # 2.74 X10^3/ul (0.83-4.51); Lymphocyte % 25.3 % (19-41); Mean Corp Hgb Conc 32.8 g/dL (32-36); Mean Corpuscular Hgb 32.7 pg (27.0-32.0); Mean Corpuscular Volume 99.8 fL (81-99); Mean Platelet Vol. 11.2 fl (6.2-12.0); Monocyte# 0.74 X10^3/uL; Monocyte% 6.8 % (0-10); NRBC Flagged by Analyzer 0 % (0-5); Neutrophil # 6.87 X10^3/uL (2.7-7.7); Neutrophil % 63.5 % (47-70); POSITIVE COUNT YES; Platelet Count 187 K/mm3 (150-450); RBC Distribution Width CV 11.9 % (11.6-14.6); RBC Distribution Width SD 43.9 fl (35.1-43.9); Red Blood Count 4.31 M/mm3 (4.2-5.4); White Blood Count 10.8 K/mm3 (4.4-11.0)
[2022-12-22 15:57] LABS: Differential Indicated SCAN CRITERIA MET
[2022-12-22 16:23] VITALS: BMI 36.8
[2022-12-22 16:24] VITALS: BP 135/98; PULSE 98; RESP 18; TEMP 37; O2SAT 66
[2022-12-22 16:54] LABS: Differential Comment SCANNED
[2022-12-22] MEDS: Ondansetron 4 MG/2 ML Vial IV (17:39)
[2022-12-22] MEDS: HYDROmorphone 1 MG/ML Syringe IV ×3 (17:39→21:29)
--- NOTE | 2022-12-22 17:54 | ED.RN ---
PATIENT REFUSED INITIAL DILAUDID ORDER BECAUSE SHE NEEDED ANTI-NAUSEA MEDICATION FIRST. DOSE WAS RETURNED WITH ASSISTANCE FROM [facility].
[2022-12-22] MEDS: Midazolam 2 MG/2 ML Syringe IV (17:59)
[2022-12-22 18:00] VITALS: BP 123/80; PULSE 68; RESP 18; TEMP 36.4; O2SAT 99
[2022-12-22] MEDS: Lidocaine 1% (20 ml mdv) 20 ML Vial 10 ML INFILT (18:00)
--- NOTE | 2022-12-22 18:01 | ED.RN ---
dr. gordon at bedside verbal orders for 2mg versed and lido. 1750 versed 2mg given. 136/102, 84 hr, 100% ra. 1754 dr. gordon admins lido. 15cc of blood from ac pulled and given to dr. gordon. he admin to spinal for blood patch. 1800: 123/80, 99%, 62 1805: pt resting still complains of headache.
--- NOTE | 2022-12-22 19:03 | PN.HOSP_ITS ---
Hospitalist Note Received page for evaluation of Ms. Foley. She had headache 6 to 7 days ago and was evaluated at [facility] and had LP and was given headache cocktail and felt better for about 12 hours and then had significant pain starting on Tuesday that is continued to worsen, she presented today with 10 out of 10 pain and had blood patch in the ED the reported headache continued to worsen despite that. Went to discuss with patient to evaluate admission here versus appropriateness for transfer. She reports that she has a history of sporadic migraines but they always have an aura and are on one side and was never had a headache like this. Reports that she has not been eating well because she cannot stand up long enough to make food and she feels lightheaded and dizzy, no medications have significantly helped her headache during this time and does report that she has been occasionally getting blurry or double vision and will have flashing lights at times. She has begun to feel somewhat generally weak. Discussed with ED physician, recommend she is transferred to a facility with in person neurology/higher level of care given reported significance of symptoms that have been refractory to all interventions at this time
[2022-12-22 20:52] VITALS: BP 134/77; PULSE 69; RESP 15; O2SAT 99
--- NOTE | 2022-12-22 21:43 | ED.RN ---
ATTEMPTED TO CALL REPORT TO NURSE X2. NO ANSWER.
== END 2022-12-22 21:30 | disposition other institution (70) ==
PROVIDERS: Emergency Provider Emergency Medicine; PCP Internal Medicine; Visit Provider Emergency Medicine
DX: R51.9 Headache, unspecified (principal); Z87.891 Personal history of nicotine dependence
CPT/HCPCS: 70450; 85025; 87811; 96361; 96374; 96375; 96376; 99284; J7030; A4216; J2405

== ENCOUNTER 2023-01-04 15:44 | Emergency (ER) | payer BC, SELFPAY ==
[2023-01-04 15:45] VITALS: BP 155/95; PULSE 101; RESP 20; TEMP 36.4; O2SAT 100; BMI 30.8
--- NOTE | 2023-01-04 17:18 | EDS_ITS ---
HPI History of Present Illness Chief Complaint: Headache Detail of Chief Complaint: Global headache worse frontal area. Informant: patient Onset/Context/Timing Onset: Weeks (Onset December 18 2 days after lumbar puncture) Context: Sudden Timing: Continuous and Waxes and wanes (Initially worse in upright position. Now not positional) Location: Global worse by frontal Current Severity: Severe Maximum Severity: Severe Worsened by: Nothing Relieved by: Nothing Associated Symptoms/Injury Associated Symptoms: Negative for Fever, Nausea, Vomiting, Sore Throat, Sinus Pressure, Numbness, Tingling, Preceding Aura, Visual Changes, Blurred Vision, Photophobia or Visual Loss Injury - KING: Positive for Direct Trauma Narrative Narrative: Patient was seen on December 19 for spinal headache. Arrangements were made for blood patch. Blood patch was not successful. Saline was instilled first time. Patient was seen in ER for second attempt of blood patch. Patient developed severe pain after placement of blood patch. She was transferred to [facility]. She had extensive work-up which revealed air on MRI. This could have been because of the [address] prior to lumbar puncture on the revealed no pneumocephalus. Patient is on muscle relaxant, opiate analgesia with no improvement. Patient had follow-up by the neuro nurse practitioner at the [facility]. Because of her symptoms she was sent to the ER for further evaluation. There is no change in patient's headache. As stated before it is not positional. She denies fever. She denies photophobia or sonophobia. When I did walk-in she did have the lights out. She denies rhinorrhea, congestion postnasal drainage. She denies sore throat. She denies neck pain or neck stiffness. She denies cardiac respiratory symptoms. She denies vomiting or diarrhea. She denies urologic symptoms. She denies paresthesia, anesthesia motors. She reports problems with balance. She also reports when she was sitting on her chair last evening looking at the movement she saw 5 bones. Prior similar symptoms: Yes Recent Illness/Hospitalization: Yes PFSH PFSH Medical History Abdominal pain Abnormal stress test Anxiety and depression Chest pain Essential hypertension GERD (gastroesophageal reflux disease) Hepatic adenoma IBS (irritable bowel syndrome) NSVT (nonsustained ventricular tachycardia) Obesity (BMI 30.0-34.9) Partial obstruction of small intestine RUQ pain Tobacco use Home Medications ergocalciferol (vitamin D2) 1,250 mcg (50,000 unit) capsule 50,000 unit PO MO supplement 07/03/20 [History Last Taken 11/03/20] furosemide 20 mg tablet 20 mg PO DAILY PRN PRN Swelling 07/03/20 [History Last Taken Unknown] rizatriptan 10 mg tablet 10 mg PO .X1 PRN PRN migraines 07/03/20 [History Last Taken Unknown] ondansetron 4 mg disintegrating tablet 4 mg PO Q8H PRN nausea and vomiting #10 tabs 05/21/21 [Rx Last Taken Unknown] diltiazem HCl 120 mg capsule,extended release 24 hr 120 mg PO DAILY 05/25/21 [History Last Taken Unknown] bupropion HCl 150 mg 24 hr tablet, extended release 150 mg PO DAILY 12/20/21 [History Last Taken Unknown] hydroxyzine HCl 25 mg tablet 25 mg PO QHS 12/20/21 [History Last Taken Unknown] losartan 50 mg tablet 50 mg PO DAILY 12/20/21 [History Last Taken Unknown] diphenhydramine HCl 25 mg capsule (Benadryl) 25 mg PO Q8H PRN allergic reaction #12 caps 10/06/22 [Rx Last Taken Unknown] epinephrine 0.3 mg/0.3 mL injection, auto-injector (EpiPen 2-Mike) 0.3 mg (0.3 mL) IM Q4H PRN anaphylaxis #2 ea 10/06/22 [Rx Last Taken Unknown] famotidine 20 mg tablet (Pepcid) 20 mg PO BID #4 tabs 10/06/22 [Rx Last Taken Unknown] prednisone 50 mg tablet 50 mg PO DAILY #2 tabs 10/06/22 [Rx Last Taken Unknown] dzanreatyz-zfdxkdheoqgit-gbbtevtx 50 mg-300 mg-40 mg capsule (Fioricet) 1 cap PO Q8H PRN pain 3 days #7 caps 12/19/22 [Rx Last Taken Unknown] Allergy/AdvReac Type Severity Reaction Status Date / Time latex Allergy Mild IRRIATION, Verified 01/04/23 15:49 OR IF SHE INGEST SHE VOMITS. Iodine and Iodide Containing Allergy Anaphylaxis Verified 01/04/23 15:49 Produc morphine Allergy Itching Verified 01/04/23 15:49 Penicillins Allergy Anaphylaxis Verified 01/04/23 15:49 meperidine [From Demerol] AdvReac Nausea Verified 01/04/23 15:49 propoxyphene AdvReac Nausea Verified 01/04/23 15:49 [From Darvocet-N] varenicline [From Chantix] AdvReac Turns me Verified 01/04/23 15:49 into a crazy person Surgical History History of carpal tunnel release History of surgery of liver Status post appendectomy Status post cholecystectomy Status post hysterectomy Social History (Updated 01/04/23 @ 17:[address] John Helton MD) household members: spouse and children Smoking Status: Former smoker alcohol intake: current details: occasional substance use type: does not use ROS ROS ED Constitutional Constitutional ED: Denies chills, fever(s), subjective, sweats or weight loss Eyes Eyes: Reports change in vision bilateral; Denies blurry vision or diplopia ENT ENT ED: Denies ear pain, rhinorrhea or sore throat Cardiovascular Cardiovascular: Denies chest pain, orthopnea, palpitations, paroxysmal nocturnal dyspnea or racing heartbeat Respiratory/Chest Respiratory/Chest: Denies cough, dyspnea, dyspnea on exertion, orthopnea or paroxysmal nocturnal dyspnea Gastrointestinal Gastrointestinal: Reports nausea; Denies abdominal pain, constipation, diarrhea, melena or vomiting Genitourinary Genitourinary ED: Denies dysuria, hematuria or urinary frequency Musculoskeletal Musculoskeletal: Denies arthralgias, back pain, myalgias or neck pain Integumentary Denies Abrasions or rash Neurologic Neurologic: Reports headache(s); Denies paresthesias or weakness Endocrine Endocrinology: Denies polydipsia, polyphagia or polyuria Hematologic/Lymphatic Hematologic/Lymphatic: Denies easy bleeding or easy bruising EXAM Physical Exam Const Vital Signs: 01/04/23 15:45 Temperature 97.6 F L Temperature Source Temporal Pulse Rate 101 H Respiratory Rate 20 H Blood Pressure 155/95 H Blood Pressure Mean 115 Pulse Ox 100 Oxygen Delivery Method Room Air Positive well nourished, well developed and obese General Appearance ED: well developed and NAD; Negative for cyanotic, diaphoretic or pallor Nutritional Appearance: obese HEENT Reports normocephalic, TM's clear and moist mucous membranes atraumatic; Negative for tenderness, temporal artery tenderness or vesicular rash Face and Sinus: Negative for sinus tenderness Tympanic Membrane ED: Yes TM's clear Eyes PERRL and EOMs intact bilaterally General Eye ED: Negative for pale conjunctiva or scleral icterus Neck no lymphadenopathy, supple, no meningeal signs and no JVD Resp normal respiratory effort and clear to auscultation bilaterally Cardio regular rate, regular rhythm, S1 normal heart sound, S2 normal heart sound and no murmurs GI non-tender and non-distended Palpation: soft Back/Spine no CVA tenderness Extremity normal to inspection, full ROM and normal capillary refill Neuro oriented x3, CN's II-XII intact bilaterally and no sensory deficits noted Neuro Narrative: There is no dysmetria. There is no clonus. There is no Babinski sign noted. Yashira Coma Scale: document GCS findings Spontaneous Obeys Commands Oriented 15 Sensorium / Orientation: awake and alert Speech: speech normal Motor Exam: strength 5/5 throughout Psych mental status grossly normal Skin General Skin Exam: elasticity normal and turgor normal; Negative for jaundice or pallor MDM MDM MDM Narrative Medical decision making narrative: ER records for visit on the , were reviewed. Records from [facility] reviewed which did reveal pneumocephalus on MRI. Suspect this is due to the multiple blood patches and air was incidentally injected when checking for the subarachnoid space. Patient without fever, chills meningeal findings. Doubt infectious etiology. CT was reviewed from the performed that [facility] and there is evidence of chronic left maxillary sinusitis. Blood pressure is slightly evaded with this would not be the cause of her headache. Tachycardia may be due to the elevated blood pressure and pain. We will treat with IV fluids, Benadryl, Toradol and Reglan. If this does not work we will try IV Depakote. I was informed by patient's nurse at 1726 that patient stated the only thing that works is Dilaudid . History & Record Review Additional record(s) reviewed:: Prior inpatient record and Prior outpatient record Treatment and Re-Evaluation Narrative: Nurse informed me at 10/17/2000 that patient reports 60% reduction in her pain. She states it is at 40% of what it was. In light of this she will be discharge. Patient feels comfortable going home Discharge Plan Triage Chief Complaint: Headache Other Complaint: Vision Prob ED Provider: John Helton Dx/Rx/DC Orders Clinical Impression: Acute intractable headache, Obesity (BMI 30.0-34.9), Essential hypertension, Anxiousness Instructions: ED Rebound Headache Prescriptions: No Action rizatriptan 10 MG tablet 10 mg PO .X1 PRN PRN (Reason: migraines) furosemide 20 MG tablet 20 mg PO DAILY PRN PRN (Reason: Swelling) ergocalciferol (vitamin D2) 50,000 UNIT capsule 50,000 unit PO MO ondansetron 4 mg tablet,disintegrating 4 mg PO Q8H PRN (Reason: nausea and vomiting) Qty: 10 0RF diltiazem HCl 120 mg capsule,extended release 24hr 120 mg PO DAILY losartan 50 mg Tablet 50 mg PO DAILY hydroxyzine HCl 25 mg tablet 25 mg PO QHS Label Comments: TAKE 1 TABLET BY MOUTH EVERY 6 HOURS NEEDED FOR ITCHING/RASH. bupropion HCl 150 mg tablet extended release 24 hr 150 mg PO DAILY Label Comments: TAKE 1 TABLET BY MOUTH EVERY DAY prednisone 50 mg tablet 50 mg PO DAILY Qty: 2 0RF famotidine [Pepcid] 20 mg tablet 20 mg PO BID Qty: 4 0RF diphenhydramine HCl [Benadryl] 25 mg capsule 25 mg PO Q8H PRN (Reason: allergic reaction) Qty: 12 0RF epinephrine [EpiPen 2-Mike] 0.3 mg/0.3 mL auto-injector 0.3 mg IM Q4H PRN (Reason: anaphylaxis) Qty: 2 0RF gqjyhcrvle-yqrzjzofxjdll-ewbs [Fioricet] 50-300-40 mg capsule 1 cap PO Q8H PRN (Reason: pain) 3 Days Qty: 7 0RF Primary Care Provider: Nicky Mccall Referrals: Nicky Mccall MD [Primary Care Provider] - As Needed Disposition Disposition: Home, Self Care
[2023-01-04] MEDS: Ketorolac 15 MG/ML Vial IV (17:19)
[2023-01-04] MEDS: DiphenhydrAMINE 50 MG/ML Syringe 25 MG IV (17:20)
[2023-01-04] MEDS: Metoclopramide 10 MG/2 ML Vial IV (17:21)
--- NOTE | 2023-01-04 17:27 | ED.RN ---
THIS RN IN TO ATTEMPT IV. IV STARTED TO RT INNER WRIST. PT STATES I HATE THIS HEADACHE CCOCKTAIL, IT NEVER WORKS. PT STATES THE ONLY THING THAT WORKS FOR ME IS DILAUDID. DR. VALDEZ AWARE
[2023-01-04 18:12] VITALS: BP 138/92; PULSE 69; RESP 16; O2SAT 98
== END 2023-01-04 18:13 | disposition home or self-care (01) ==
PROVIDERS: Emergency Provider Emergency Medicine; PCP Internal Medicine; Visit Provider Emergency Medicine
DX: R51.9 Headache, unspecified (principal); I10 Essential (primary) hypertension; E66.9 Obesity, unspecified; Z87.891 Personal history of nicotine dependence
CPT/HCPCS: 96374; 96375; 99283; J7040; A4216

== ENCOUNTER 2023-04-25 13:23 | Emergency (ER) | payer BC, SELFPAY ==
[2023-04-25 13:25] VITALS: BP 138/86; PULSE 99; RESP 14; TEMP 36.6; O2SAT 98; BMI 32.3
--- NOTE | 2023-04-25 14:04 | EDS_ITS ---
HPI History of Present Illness Chief Complaint: Chest Pain Informant: patient Onset/Context/Timing Onset: Yesterday Narrative Narrative: Patient presents secondary to intermittent chest pain and dizziness. She states that she was sitting in her garage after a cookout last night when her heart started racing (heart rate in the 140s) and she felt lightheaded. She went inside and took her normal cardiac meds and went to bed. She states she woke up at some point midnight and noted left shoulder pain. Today she has had intermittent left upper chest pain and still has intermittent dizziness. She states she will feel short of breath when the pain hits. No fever or chills. No cough or congestion. She called her sourcing intern, Dr. Jolly, who recommended she come to the emergency room. PFSH PFSH Medical History Abdominal pain Abnormal stress test Anxiety and depression Chest pain Essential hypertension GERD (gastroesophageal reflux disease) Hepatic adenoma IBS (irritable bowel syndrome) NSVT (nonsustained ventricular tachycardia) Obesity (BMI 30.0-34.9) Partial obstruction of small intestine RUQ pain Tobacco use Home Medications ergocalciferol (vitamin D2) 1,250 mcg (50,000 unit) capsule 50,000 unit PO MO supplement 07/03/20 [History Last Taken 11/03/20] furosemide 20 mg tablet 20 mg PO DAILY PRN PRN Swelling 07/03/20 [History Last Taken Unknown] rizatriptan 10 mg tablet 10 mg PO .X1 PRN PRN migraines 07/03/20 [History Last Taken Unknown] ondansetron 4 mg disintegrating tablet 4 mg PO Q8H PRN nausea and vomiting #10 tabs 05/21/21 [Rx Last Taken Unknown] diltiazem HCl 120 mg capsule,extended release 24 hr 120 mg PO DAILY 05/25/21 [History Last Taken Unknown] bupropion HCl 150 mg 24 hr tablet, extended release 150 mg PO DAILY 12/20/21 [History Last Taken Unknown] hydroxyzine HCl 25 mg tablet 25 mg PO QHS 12/20/21 [History Last Taken Unknown] losartan 50 mg tablet 50 mg PO DAILY 12/20/21 [History Last Taken Unknown] diphenhydramine HCl 25 mg capsule (Benadryl) 25 mg PO Q8H PRN allergic reaction #12 caps 10/06/22 [Rx Last Taken Unknown] epinephrine 0.3 mg/0.3 mL injection, auto-injector (EpiPen 2-Mike) 0.3 mg (0.3 mL) IM Q4H PRN anaphylaxis #2 ea 10/06/22 [Rx Last Taken Unknown] famotidine 20 mg tablet (Pepcid) 20 mg PO BID #4 tabs 10/06/22 [Rx Last Taken Unknown] prednisone 50 mg tablet 50 mg PO DAILY #2 tabs 10/06/22 [Rx Last Taken Unknown] lfasclvmhb-mqjbjgdgxkzxt-jxphccof 50 mg-300 mg-40 mg capsule (Fioricet) 1 cap PO Q8H PRN pain 3 days #7 caps 12/19/22 [Rx Last Taken Unknown] oxycodone-acetaminophen 5 mg-325 mg tablet (Percocet) 1 tab PO Q8H PRN pain 3 days #10 tabs 04/25/23 [Rx Last Taken Unknown] Allergy/AdvReac Type Severity Reaction Status Date / Time latex Allergy Mild IRRIATION, Verified 04/25/23 13:24 OR IF SHE INGEST SHE VOMITS. Iodine and Iodide Containing Allergy Anaphylaxis Verified 04/25/23 13:24 Produc morphine Allergy Itching Verified 04/25/23 13:24 Penicillins Allergy Anaphylaxis Verified 04/25/23 13:24 meperidine [From Demerol] AdvReac Nausea Verified 04/25/23 13:24 propoxyphene AdvReac Nausea Verified 04/25/23 13:24 [From Darvocet-N] varenicline [From Chantix] AdvReac Turns me Verified 04/25/23 13:24 into a crazy person Surgical History History of carpal tunnel release History of surgery of liver Status post appendectomy Status post cholecystectomy Status post hysterectomy Social History household members: spouse and children Smoking Status: Former smoker alcohol intake: current details: occasional substance use type: does not use ROS ROS ED Constitutional Constitutional ED: Denies chills or fever(s) Eyes Eyes: Denies change in vision or discharge from eye(s) ENT ENT ED: Denies discharge from eye(s), rhinorrhea or sore throat Cardiovascular Cardiovascular: Reports chest pain and racing heartbeat Respiratory/Chest Respiratory/Chest: Reports dyspnea; Denies cough Gastrointestinal Gastrointestinal: Denies abdominal pain, diarrhea, nausea or vomiting Genitourinary Genitourinary ED: Denies difficulty urinating or dysuria Musculoskeletal Musculoskeletal: Denies back pain or extremity pain Integumentary Denies Abrasions or rash Neurologic Neurologic: Denies headache(s) or weakness Psychiatric Psychiatric: Denies anxiety or depression Allergic/Immunologic Allergic/Immunologic ED: Denies lip swelling or urticaria EXAM Physical Exam Const Vital Signs: 04/25/23 13:25 04/25/23 14:43 Temperature 98 F Temperature Source Temporal Pulse Rate 99 Respiratory Rate 14 Blood Pressure 138/86 H Blood Pressure Mean 103 Pulse Ox 98 98 Oxygen Delivery Method Room Air Room Air Positive well nourished and well developed General Appearance ED: well developed HEENT Reports normocephalic and head/scalp atraumatic Eyes PERRL and EOMs intact bilaterally Neck supple Chest Wall inspection of chest normal and palpation of chest normal Resp normal respiratory effort and clear to auscultation bilaterally Cardio regular rate and regular rhythm GI soft to palpation Palpation: soft Extremity normal to inspection Neuro oriented x3 and no sensory deficits noted Sensorium / Orientation: alert Motor Exam: strength 5/5 throughout Psych Mood & Affect: anxious Skin no rashes or lesions noted MDM MDM MDM Narrative Medical decision making narrative: Patient placed on court recording monitor. EKG obtained to evaluate for cardiac arrhythmia/ischemia. Labwork obtained to evaluate for leukocytosis, anemia, and electrolyte derangement. Chest x-ray obtained to evaluate for acute lung pathology, cardiac size, or mediastinal abnormality. History & Record Review Discussion w/independent historian: Patient Additional record(s) reviewed:: Prior ED visit and Prior labs Lab Data Attestation: I reviewed the patient's lab results. Labs: Laboratory Results - last 24 hr 04/25/23 13:56 WBC 12.2 H RBC 3.96 L Hgb 13.2 Hct 39.9 MCV 100.8 H MCH 33.3 H MCHC 33.1 RDW Std Deviation 45.5 H RDW Coeff of Lynette 12.2 Plt Count 225 MPV 10.7 Immature Gran % (Auto) 1.600 H Neut % (Auto) 68.6 Lymph % (Auto) 19.3 [place] % (Auto) 6.8 Eos % (Auto) 2.9 Baso % (Auto) 0.8 Absolute Neuts (auto) 8.4 H Absolute Lymphs (auto) 2.36 Nucleated RBC % 0 D-Dimer Quant (PE/DVT) < 0.27 L Sodium 135 L Potassium 3.9 Chloride 104 Carbon Dioxide 25.0 Anion Gap 6 BUN 17 Creatinine 0.81 Estim Creat Clear Calc 78.13 Est GFR (MDRD) Af Amer 100 Est GFR (MDRD) Non-Af 83 BUN/Creatinine Ratio 21.0 H Glucose 93 Calcium 9.5 Troponin I High Sens < 3 L Radiography Chest X-Ray - ED: 1 View, Read by ED Physician, Normal, Heart, Lungs and Mediastinum Diagnostic Testing: Clinical Impression(s) from Imaging Studies Chest X-Ray 04/25/23 14:20 IMPRESSION: No acute cardiopulmonary disease. Electronically Signed: Felix Grimm MD at 14:32 EDT Reading Location ID and State: [facility] / Unknown , Service support , EKG Initial EKG: Attestation: I personally reviewed and interpreted this EKG as follows: Interpretation: Sinus Rhythm (Sinus 82 with no acute ischemia.) Differential Diagnosis Chest pain/SOB: pulmonary embolism Reason(s) PE less likely: Positive for D- Dimer negative, not tachycardic and not hypoxic, ACS ACS: Positive for no evidence of ACS based on cardiac biomarkers and EKG without ischemia and pneumothorax Reason(s) pneumothorax less likely: Positive for bilateral breath sounds and [employer] withhout PTX Treatment and Re-Evaluation :: CBC was a white count of 12.2 with no left shift. Chemistry studies are unremarkable. Troponin is less than 3 and D-dimer is less than 0.27. EKG is sinus rhythm with no acute ischemia. No arrhythmias have been noted on court recording monitor during her ER stay. Portable chest x-ray per my interpretation was no acute abnormalities. Radiology interpretation is reviewed and agrees. Test results discussed with the patient. She is reassured with our findings but return instructions were provided. She will be given a short course of Percocet for pain control. She was given fentanyl along with aspirin on arrival here with some improvement in her symptoms. Discharge Plan Triage Chief Complaint: Chest Pain ED Provider: Sakshi Akhtar Dx/Rx/DC Orders Clinical Impression: Chest pain Instructions: ED Chest Pain, Uncertain Cause Prescriptions: New oxycodone-acetaminophen [Percocet] 5-325 mg tablet 1 tab PO Q8H PRN (Reason: pain) 3 Days Qty: 10 0RF No Action rizatriptan 10 MG tablet 10 mg PO .X1 PRN PRN (Reason: migraines) furosemide 20 MG tablet 20 mg PO DAILY PRN PRN (Reason: Swelling) ergocalciferol (vitamin D2) 50,000 UNIT capsule 50,000 unit PO MO ondansetron 4 mg tablet,disintegrating 4 mg PO Q8H PRN (Reason: nausea and vomiting) Qty: 10 0RF diltiazem HCl 120 mg capsule,extended release 24hr 120 mg PO DAILY losartan 50 mg Tablet 50 mg PO DAILY hydroxyzine HCl 25 mg tablet 25 mg PO QHS Patient Comments: TAKE 1 TABLET BY MOUTH EVERY 6 HOURS NEEDED FOR ITCHING/RASH. bupropion HCl 150 mg tablet extended release 24 hr 150 mg PO DAILY Patient Comments: TAKE 1 TABLET BY MOUTH EVERY DAY prednisone 50 mg tablet 50 mg PO DAILY Qty: 2 0RF famotidine [Pepcid] 20 mg tablet 20 mg PO BID Qty: 4 0RF diphenhydramine HCl [Benadryl] 25 mg capsule 25 mg PO Q8H PRN (Reason: allergic reaction) Qty: 12 0RF epinephrine [EpiPen 2-Mike] 0.3 mg/0.3 mL auto-injector 0.3 mg IM Q4H PRN (Reason: anaphylaxis) Qty: 2 0RF blbnjjhuxv-jogwqmddwrpyn-szun [Fioricet] 50-300-40 mg capsule 1 cap PO Q8H PRN (Reason: pain) 3 Days Qty: 7 0RF Primary Care Provider: Nicky Mccall Referrals: Nicky Mccall MD [Primary Care Provider] - 1-2 Weeks Braeden Jolly MD [Non-Staff] - As Needed Disposition Disposition: Home, Self Care
--- NOTE | 2023-04-25 14:20 | RAD_ITS ---
INDICATION: Chest Pain EXAMINATION/TECHNIQUE: X-RAY - AP portable XR Chest 1 View COMPARISON: None FINDINGS: LINES/DEVICES: None. LUNGS: No consolidation, edema or effusion. No pneumothorax. MEDIASTINUM AND CARDIOVASCULAR STRUCTURES: Cardiac silhouette not enlarged. Central airways and mediastinal contour are unremarkable. BONES AND SOFT TISSUES: Unremarkable. RAD/Chest 1 View (Portable) IMPRESSION: No acute cardiopulmonary disease. Electronically Signed: Felix Grimm MD at 14:32 EDT Reading Location ID and State: [id number] / Unknown , Service support ,
[2023-04-25 14:25] LABS: Absolute Lymphocyte Count 2.36 X10^3/uL (0.83-4.51); Absolute Neutrophil Count 8.4 X10^3/uL (2.0-7.7); Basophil% 0.8 % (0-1); Eosinophil# 0.35 X10^3/uL; Eosinophils% 2.9 % (0-5); Hematocrit 39.9 % (37-47); Hemoglobin 13.2 g/dL (12.0-15.0); Lymphocyte # 2.36 X10^3/ul (0.83-4.51); Lymphocyte % 19.3 % (19-41); Mean Corp Hgb Conc 33.1 g/dL (32-36); Mean Corpuscular Hgb 33.3 pg (27.0-32.0); Mean Corpuscular Volume 100.8 fL (81-99); Mean Platelet Vol. 10.7 fl (6.2-12.0); Monocyte# 0.83 X10^3/uL; Monocyte% 6.8 % (0-10); NRBC Flagged by Analyzer 0 % (0-5); Neutrophil % 68.6 % (47-70); Platelet Count 225 K/mm3 (150-450); RBC Distribution Width CV 12.2 % (11.6-14.6); RBC Distribution Width SD 45.5 fl (35.1-43.9); Red Blood Count 3.96 M/mm3 (4.2-5.4); White Blood Count 12.2 K/mm3 (4.4-11.0)
[2023-04-25 14:31] LABS: D-Dimer Quantitative (DVT/PE) < 0.27 FEU/ug/m (0.27-0.49)
[2023-04-25 14:40] LABS: Anion Gap 6 (5-15); BUN 17 mg/dL (7-18); Calcium,Total 9.5 mg/dL (8.5-10.1); Chloride 104 mmol/L (98-107); Creatinine, Serum 0.81 mg/dL (0.55-1.02); EST Glomerular Filtration Rate 83 mL/min (>60); Est Glom Filt Rate - Afr Amer 100 mL/min (>60); Estimated Creatinine Clearance 78.13 ml/min; Glucose 93 mg/dL (74-106); Potassium 3.9 mmol/L (3.5-5.1); Sodium Level 135 mmol/L (136-145); Troponin-I HS (w/2H Reflex) < 3 pg/mL (3.0-54.0)
[2023-04-25] MEDS: Aspirin 81 MG TAB.CHEW 324 MG PO (14:40)
[2023-04-25] MEDS: fentaNYL 100 MCG/2 ML Ampul 25 MCG IV (14:40)
[2023-04-25] MEDS: 0.9% Normal Saline 1,000 ML 150 ML IV (14:41)
[2023-04-25 14:43] VITALS: O2SAT 98
[2023-04-25 15:27] VITALS: BP 141/82; PULSE 81; RESP 16; O2SAT 98
--- NOTE | 2023-04-25 15:30 | ED.RN ---
IV removed intact, no bleeding at site. Verbalized understanding of instructions. Home with .
[2023-04-25 16:14] LABS: Reflex Troponin-HS? (from REC) Y
== END 2023-04-25 15:31 | disposition home or self-care (01) ==
PROVIDERS: Emergency Provider Emergency Medicine; PCP Internal Medicine; Visit Provider Emergency Medicine
DX: R07.9 Chest pain, unspecified (principal); Z87.891 Personal history of nicotine dependence
CPT/HCPCS: 71045; 80048; 84484; 85025; 85379; 93005; 96374; 99284; J7030; A4216

== ENCOUNTER 2024-04-14 15:59 | Emergency (ER) | payer SELFPAY ==
[2024-04-14 16:00] VITALS: BP 147/92; PULSE 108; RESP 22; TEMP 36.4; O2SAT 100; BMI 27.9
--- NOTE | 2024-04-14 16:18 | EX.ED.DYSGE1 ---
HPI <RASHIDA Welsh - Last Filed: 04/14/24 20:37> History of Present Illness Chief Complaint: Flank Pain Narrative Narrative: 44-year-old female presents with sudden onset left upper quadrant abdominal pain that radiates to the left mid back that started at 1:30 PM while she was sitting watching television. Pain is sharp and feels better if she puts pressure on her abdomen. She has no fever or chills or nausea or vomiting. She states she ate a normal breakfast without pain. She has had normal bladder and bowel movements. She has history of kidney stone x 1 but states this feels different. PFSH <RASHIDA Welsh - Last Filed: 04/14/24 20:37> PFSH Medical History Abdominal pain Abnormal stress test Anxiety and depression Chest pain Essential hypertension GERD (gastroesophageal reflux disease) Hepatic adenoma IBS (irritable bowel syndrome) NSVT (nonsustained ventricular tachycardia) Obesity (BMI 30.0-34.9) Partial obstruction of small intestine RUQ pain Tobacco use Home Medications ?Medication ?Instructions ?Recorded ?Last Taken ?Type ergocalciferol (vitamin D2) 1,250 50,000 unit PO MO supplement 07/03/20 11/03/20 History mcg (50,000 unit) capsule furosemide 20 mg tablet 20 mg PO DAILY PRN PRN Swelling 07/03/20 Unknown History rizatriptan 10 mg tablet 10 mg PO .X1 PRN PRN migraines 07/03/20 Unknown History ondansetron 4 mg disintegrating 4 mg PO Q8H PRN nausea and 05/21/21 Unknown Rx tablet vomiting #10 tabs diltiazem HCl 120 mg 120 mg PO DAILY 05/25/21 Unknown History capsule,extended release 24 hr bupropion HCl 150 mg 24 hr tablet, 150 mg PO DAILY 12/20/21 Unknown History extended release hydroxyzine HCl 25 mg tablet 25 mg PO QHS 12/20/21 Unknown History losartan 50 mg tablet 50 mg PO DAILY 12/20/21 Unknown History diphenhydramine HCl 25 mg capsule 25 mg PO Q8H PRN allergic reaction 10/06/22 Unknown Rx (Benadryl) #12 caps epinephrine 0.3 mg/0.3 mL 0.3 mg (0.3 mL) IM Q4H PRN 10/06/22 Unknown Rx injection, auto-injector (EpiPen anaphylaxis #2 ea 2-Mike) famotidine 20 mg tablet (Pepcid) 20 mg PO BID #4 tabs 10/06/22 Unknown Rx prednisone 50 mg tablet 50 mg PO DAILY #2 tabs 10/06/22 Unknown Rx rhqwonvxef-cdpsqyvpgafmu-vptxtynn 1 cap PO Q8H PRN pain 3 days #7 12/19/22 Unknown Rx 50 mg-300 mg-40 mg capsule caps (Fioricet) oxycodone-acetaminophen 5 mg-325 1 tab PO Q8H PRN pain 3 days #10 04/25/23 Unknown Rx mg tablet (Percocet) tabs Allergy/AdvReac Type Severity Reaction Status Date / Time latex Allergy Mild IRRIATION, Verified 04/14/24 16:00 OR IF SHE INGEST SHE VOMITS. Iodine and Iodide Containing Allergy Anaphylaxis Verified 04/14/24 16:00 Produc morphine Allergy Itching Verified 04/14/24 16:00 Penicillins Allergy Anaphylaxis Verified 04/14/24 16:00 meperidine (From Demerol) AdvReac Nausea Verified 04/14/24 16:00 propoxyphene (From AdvReac Nausea Verified 04/14/24 16:00 Darvocet-N) varenicline (From Chantix) AdvReac Turns me Verified 04/14/24 16:00 into a crazy person Surgical History History of carpal tunnel release History of surgery of liver Status post appendectomy Status post cholecystectomy Status post hysterectomy Social History household members: spouse and children Smoking Status: Former smoker alcohol intake: current details: occasional substance use type: does not use ROS <RASHIDA Welsh - Last Filed: 04/14/24 20:37> ROS ED ROS Narrative Constitutional: Negative for fever, chills, malaise. CVS: Negative for chest pain, syncope. Respiratory: Negative for shortness of breath, cough. GI: Positive for abdominal pain. Negative for nausea, vomiting, diarrhea, constipation, melena, hematochezia. : Negative for dysuria, hematuria or frequency. EXAM <RASHIDA Welsh - Last Filed: 04/14/24 20:37> Physical Exam Narrative Exam Narrative: CONST: Patient sitting in bed appears uncomfortable. EYES: Normal inspection. NECK: Normal inspection. RESP: No respiratory distress, CTAB. CVS: Regular rate and rhythm, no murmur, no gallop. ABD: Soft and nontender, no guarding or rebound, nondistended, no hepatosplenomegaly. Back: Normal inspection, no CVA tenderness. SKIN: Color normal, no rash, warm, dry, intact. EXTREMITIES: Normal appearance, no pedal edema. NEURO: Alert and answering questions appropriately. PSYCH: Normal affect. Const Vital Signs: 04/14/24 16:00 04/14/24 18:00 04/14/24 20:00 Temperature 97.6 F L Temperature Source Temporal Pulse Rate 108 H 91 85 Respiratory Rate 22 H 16 18 Blood Pressure 147/92 H 134/87 H 138/91 H Blood Pressure Mean 110 102 106 Pulse Ox 100 100 96 Oxygen Delivery Method Room Air Room Air Room Air <Dr. Romaine Dawkins MD - Last Filed: 04/14/24 21:07> Physical Exam Const Vital Signs: 04/14/24 16:00 04/14/24 18:00 04/14/24 20:00 Temperature 97.6 F L Temperature Source Temporal Pulse Rate 108 H 91 85 Respiratory Rate 22 H 16 18 Blood Pressure 147/92 H 134/87 H 138/91 H Blood Pressure Mean 110 102 106 Pulse Ox 100 100 96 Oxygen Delivery Method Room Air Room Air Room Air [facility] <RASHIDA Welsh - Last Filed: 04/14/24 20:37> [facility] Narrative Medical decision making narrative: Differential: GERD/PUD, pancreatitis, kidney stone, ACS, PE all considered Patient has acute onset left upper quadrant abdominal pain. She appears uncomfortable but nontoxic. She is tachycardic between 100?110 with otherwise normal vital signs. Other than tachycardia she has a normal cardiopulmonary exam. Her abdomen is soft with no reproducible tenderness. No CVA tenderness. Labs show WBC of 15.2. She has normal electrolytes and renal function and normal LFTs and lipase. Urinalysis is negative for infection and test is negative. CT of the abdomen/pelvis shows no acute process. After IV fentanyl and Toradol she states she had about an hour of pain relief but now it is back at the same severity. Since her pain is high up in the abdomen/lower rib area I added on cardiac enzymes and a D-dimer. EKG is nonischemic and troponin and D-dimer are negative. She was ordered an additional dose of IV fentanyl and Bentyl but refused the latter stating it gave her a bad reaction before. On reassessment I discussed all of her results. I am not sure of the etiology of her left upper quadrant abdominal pain. She does report having EGD and colonoscopy done in the past for upper abdominal pain but at that time it was more midline to right-sided. She states EGD in 2020 showed a gastric ulcer and she takes omeprazole daily. She was treated with a GI cocktail. I recommended she continue PPI and she can add Pepcid and I discussed lifestyle changes in case this is related to GERD/PUD. She should follow-up with her primary care doctor. She was discharged in stable condition. Lab Data Attestation: I reviewed the patient's lab results. Labs: Laboratory Results - last 24 hr 04/14/24 04/14/24 04/14/24 16:20 17:11 19:48 WBC 15.2 H RBC 4.28 Hgb 14.3 Hct 42.1 MCV 98.4 MCH 33.4 H MCHC 34.0 RDW Std Deviation 43.9 RDW Coeff of Lynette 12.0 Plt Count 262 MPV 9.9 Immature Gran % (Auto) 0.700 Neut % (Auto) 76.7 H Lymph % (Auto) 15.9 L [place] % (Auto) 4.5 Eos % (Auto) 1.7 Baso % (Auto) 0.5 Absolute Neuts (auto) 11.7 H Absolute Lymphs (auto) 2.41 Nucleated RBC % 0 D-Dimer Quant (PE/DVT) < 0.27 L Sodium 137 Potassium 4.1 Chloride 104 Carbon Dioxide 25.0 Anion Gap 8 BUN 14 Creatinine 0.81 Estim Creat Clear Calc 88.13 Est GFR (MDRD) Af Amer 99 Est GFR (MDRD) Non-Af 82 BUN/Creatinine Ratio 17.2 Glucose 82 Calcium 9.3 Total Bilirubin 0.30 AST 30 ALT 60 H Alkaline Phosphatase 58 Troponin I High Sens < 3 L Total Protein 7.2 Albumin 4.0 Globulin 3.2 Albumin/Globulin Ratio 1.2 Lipase 40 Urine Color Yellow Urine Clarity Clear Urine pH 7.0 Ur Specific Kenneth 1.010 Urine Protein 15 H Urine Glucose (UA) Normal Urine Ketones 50 H Urine Occult Blood Negative Urine Nitrite Negative Urine Bilirubin Negative Urine Urobilinogen Normal Ur Leukocyte Esterase Negative Urine RBC 0 SEEN Urine WBC 0 SEEN Ur Squamous Epith Cells 0-5 SEEN Urine Bacteria 0 SEEN Urine Mucus 0 SEEN Urine Test Negative Radiography Diagnostic Testing: Clinical Impression(s) from Imaging Studies Abdomen/Pelvis CT 04/14/24 16:20 IMPRESSION: No acute findings in the abdomen or pelvis. Electronically Signed: Ritesh Cortez MD at 19:03 EDT , EKG Initial EKG: Attestation: I personally reviewed and interpreted this EKG as follows: Interpretation: Sinus Rhythm, No Acute Injury Pattern and Sinus Tachycardia Comments: Sinus tachycardia 102 bpm Normal intervals, no acute ischemic changes <Dr. Romaine Dawkins MD - Last Filed: 04/14/24 21:07> [facility] Lab Data Labs: Laboratory Results - last 24 hr 04/14/24 04/14/24 04/14/24 16:20 17:11 19:48 WBC 15.2 H RBC 4.28 Hgb 14.3 Hct 42.1 MCV 98.4 MCH 33.4 H MCHC 34.0 RDW Std Deviation 43.9 RDW Coeff of Lynette 12.0 Plt Count 262 MPV 9.9 Immature Gran % (Auto) 0.700 Neut % (Auto) 76.7 H Lymph % (Auto) 15.9 L [place] % (Auto) 4.5 Eos % (Auto) 1.7 Baso % (Auto) 0.5 Absolute Neuts (auto) 11.7 H Absolute Lymphs (auto) 2.41 Nucleated RBC % 0 D-Dimer Quant (PE/DVT) < 0.27 L Sodium 137 Potassium 4.1 Chloride 104 Carbon Dioxide 25.0 Anion Gap 8 BUN 14 Creatinine 0.81 Estim Creat Clear Calc 88.13 Est GFR (MDRD) Af Amer 99 Est GFR (MDRD) Non-Af 82 BUN/Creatinine Ratio 17.2 Glucose 82 Calcium 9.3 Total Bilirubin 0.30 AST 30 ALT 60 H Alkaline Phosphatase 58 Troponin I High Sens < 3 L Total Protein 7.2 Albumin 4.0 Globulin 3.2 Albumin/Globulin Ratio 1.2 Lipase 40 Urine Color Yellow Urine Clarity Clear Urine pH 7.0 Ur Specific Kenneth 1.010 Urine Protein 15 H Urine Glucose (UA) Normal Urine Ketones 50 H Urine Occult Blood Negative Urine Nitrite Negative Urine Bilirubin Negative Urine Urobilinogen Normal Ur Leukocyte Esterase Negative Urine RBC 0 SEEN Urine WBC 0 SEEN Ur Squamous Epith Cells 0-5 SEEN Urine Bacteria 0 SEEN Urine Mucus 0 SEEN Urine Test Negative Radiography Diagnostic Testing: Clinical Impression(s) from Imaging Studies Abdomen/Pelvis CT 04/14/24 16:20 IMPRESSION: No acute findings in the abdomen or pelvis. Electronically Signed: Ritesh Cortez MD at 19:03 EDT , I reviewed the CT images as well as the report which I agree with, it is negative and normal. This includes the left lung base and pleural space. Treatment and Re-Evaluation Comments:: I have personally performed a face to face assessment of the patient and have reviewed the PHILIPP Note. I performed a substantive portion of the visit including all aspects of the following. My nair findings include: History is sudden onset left upper quadrant/flank pain today, severe and sudden onset and somewhat colicky since then. Some nausea no vomiting. Initially stated that it was worse with taking a deep breath, she states on reevaluation not really. Not hurting in her back. No urinary symptoms. Never had this before. History of cholecystectomy and appendectomy and hysterectomy in the past. Exam is uncomfortable. Nontender left abdomen and the rest of her abdomen, no CVA tenderness, no splinting with deep inspiration. Mild tachycardia. Medical Decison Making suspect kidney stone we will start with a workup for that initially and provide medications for pain and nausea, if she does not have a kidney stone we may consider other causes such as pneumonia, PE, stomach-related symptomatology. Other additions or changes: [None] Discharge Plan Triage Chief Complaint: Flank Pain ED Midlevel Provider: Bertha Spaulding ED Provider: Romaine Dawkins Dx/Rx/DC Orders Clinical Impression: Abdominal pain, acute, left upper quadrant Instructions: Abdominal Pain Prescriptions: No Action rizatriptan 10 MG tablet 10 mg PO .X1 PRN PRN (Reason: migraines) furosemide 20 MG tablet 20 mg PO DAILY PRN PRN (Reason: Swelling) ergocalciferol (vitamin D2) 50,000 UNIT capsule 50,000 unit PO MO ondansetron 4 mg tablet,disintegrating 4 mg PO Q8H PRN (Reason: nausea and vomiting) Qty: 10 0RF diltiazem HCl 120 mg capsule,extended release 24hr 120 mg PO DAILY losartan 50 mg Tablet 50 mg PO DAILY hydroxyzine HCl 25 mg tablet 25 mg PO QHS Patient Comments: TAKE 1 TABLET BY MOUTH EVERY 6 HOURS NEEDED FOR ITCHING/RASH. bupropion HCl 150 mg tablet extended release 24 hr 150 mg PO DAILY Patient Comments: TAKE 1 TABLET BY MOUTH EVERY DAY prednisone 50 mg tablet 50 mg PO DAILY Qty: 2 0RF famotidine [Pepcid] 20 mg tablet 20 mg PO BID Qty: 4 0RF diphenhydramine HCl [Benadryl] 25 mg capsule 25 mg PO Q8H PRN (Reason: allergic reaction) Qty: 12 0RF epinephrine [EpiPen 2-Mike] 0.3 mg/0.3 mL auto-injector 0.3 mg IM Q4H PRN (Reason: anaphylaxis) Qty: 2 0RF nczgexqxgb-wxvkdepyfibip-mozj [Fioricet] 50-300-40 mg capsule 1 cap PO Q8H PRN (Reason: pain) 3 Days Qty: 7 0RF oxycodone-acetaminophen [Percocet] 5-325 mg tablet 1 tab PO Q8H PRN (Reason: pain) 3 Days Qty: 10 0RF Primary Care Provider: Nicky Mccall Referrals: Nicky Mccall MD [Primary Care Provider] - Activity Restrictions/Additional Instructions: Today your screening tests look normal and rule out dangerous condition such as heart attack, blood clot, or intra-abdominal infections or blockages. I am not sure what the source of your pain is. With your history of stomach ulcers this is 1 possibility based on the area of your pain. Continue omeprazole and you can add [id number] Pepcid twice daily as well. Follow-up with your primary care doctor. Print Language: Albanian Disposition Disposition: Home, Self Care
--- NOTE | 2024-04-14 16:20 | CT_ITS ---
EXAM: CT ABDOMEN AND PELVIS WITHOUT INTRAVENOUS CONTRAST CLINICAL INDICATION: left flank pain TECHNIQUE: Helically acquired images were obtained of the abdomen and pelvis without intravenous contrast. This CT exam was performed using one or more of the following dose reduction techniques: automated exposure control, adjustment of the mA and/or kV according to patient size, and/or use of iterative reconstruction technique. COMPARISON: No relevant prior studies available. FINDINGS: LOWER THORAX: Unremarkable. Lung bases are clear. No cardiomegaly. No significant pericardial effusion. ABDOMEN: LIVER: The liver is diffusely decreased in attenuation compatible with fatty infiltration. GALLBLADDER AND BILE DUCTS: Gallbladder is nonvisualized and may be surgically absent. No intra- or extrahepatic biliary ductal dilation. PANCREAS: Unremarkable. No focal cystic mass. SPLEEN: Unremarkable. Normal size without focal cystic or solid mass. ADRENALS: Unremarkable. No nodules. KIDNEYS AND URETERS: Unremarkable. Normal renal size and position. No hydronephrosis. STOMACH AND BOWEL: Unremarkable. No stomach or bowel distention. No focal inflammatory change. PELVIS: APPENDIX: No evidence of acute appendicitis. BLADDER: Unremarkable. REPRODUCTIVE: Patient status post hysterectomy. ABDOMEN and PELVIS: INTRAPERITONEAL SPACE: Unremarkable. No ascites or other fluid collection. No free air. BONES/JOINTS: Unremarkable. No suspicious lytic or blastic abnormality. SOFT TISSUES: Unremarkable. No discrete abdominal or pelvic wall hernia. VASCULATURE: Unremarkable. Abdominal aorta is non-dilated. LYMPH NODES: Unremarkable. No enlarged lymph nodes. CT/Abdomen/Pelvis without Cont IMPRESSION: No acute findings in the abdomen or pelvis. Electronically Signed: Ritesh Cortez MD at 19:03 EDT ,
--- NOTE | 2024-04-14 16:22 | EKG12_ITS ---
Test Reason : GENERAL Blood Pressure : / mmHG Vent. Rate : 102 BPM Atrial Rate : 102 BPM P-R Int : 126 ms QRS Dur : 068 ms QT Int : 314 ms P-R-T Axes : 041 056 067 degrees QTc Int : 409 ms Sinus tachycardia Otherwise normal ECG Confirmed by Tian Rivera ([id number]), food editor LA NENA RANGEL ([id number]) on 04/16/2024 1:45:07 PM Referred By: Confirmed By:Tian Rivera
[2024-04-14] MEDS: Ondansetron 4 MG/2 ML Vial IV (16:26)
[2024-04-14 16:28] LABS: Absolute Lymphocyte Count 2.41 X10^3/uL (0.83-4.51); Absolute Neutrophil Count 11.7 X10^3/uL (2.0-7.7); Basophil# 0.07 X10^3/uL; Basophil% 0.5 % (0-1); Eosinophil# 0.26 X10^3/uL; Eosinophils% 1.7 % (0-5); Hematocrit 42.1 % (37-47); Hemoglobin 14.3 g/dL (12.0-15.0); Lymphocyte # 2.41 X10^3/ul (0.83-4.51); Lymphocyte % 15.9 % (19-41); Mean Corpuscular Hgb 33.4 pg (27.0-32.0); Mean Corpuscular Volume 98.4 fL (81-99); Mean Platelet Vol. 9.9 fl (6.2-12.0); Monocyte# 0.68 X10^3/uL; Monocyte% 4.5 % (0-10); NRBC Flagged by Analyzer 0 % (0-5); Neutrophil # 11.65 X10^3/uL (2.7-7.7); Neutrophil % 76.7 % (47-70); Platelet Count 262 K/mm3 (150-450); RBC Distribution Width SD 43.9 fl (35.1-43.9); Red Blood Count 4.28 M/mm3 (4.2-5.4); White Blood Count 15.2 K/mm3 (4.4-11.0)
[2024-04-14] MEDS: Ketorolac 15 MG/ML Vial IV (16:28)
[2024-04-14] MEDS: fentaNYL 100 MCG/2 ML Ampul 50 MCG IV ×2 (16:30→19:50)
--- NOTE | 2024-04-14 16:44 | NURSING ---
medication wasted per this rn and madi day.new orders placed
[2024-04-14 16:45] LABS: ALB/GLOB Ratio 1.2 RATIO (0.9-2.4); AST(SGOT) 30 U/L (15-37); Alanine Aminotransfer ALT/SGPT 60 U/L (13-56); Alkaline Phosphatase 58 U/L (45-117); Anion Gap 8 (5-15); BUN 14 mg/dL (7-18); BUN/Creat Ratio 17.2 RATIO (10-20); Calcium,Total 9.3 mg/dL (8.5-10.1); Chloride 104 mmol/L (98-107); Creatinine, Serum 0.81 mg/dL (0.55-1.02); EST Glomerular Filtration Rate 82 mL/min (>60); Est Glom Filt Rate - Afr Amer 99 mL/min (>60); Estimated Creatinine Clearance 88.13 ml/min; Globulin 3.2 g/dL (2.2-4.2); Glucose 82 mg/dL (74-106); Lipase 40 U/L (13-75); Potassium 4.1 mmol/L (3.5-5.1); Protein, Total 7.2 g/dL (6.4-8.2); Sodium Level 137 mmol/L (136-145)
[2024-04-14 17:22] LABS: Bacteria 0 SEEN /hpf (None Seen); Mucous, Urine 0 SEEN /hpf (<or=2+); Red Blood Cells-Urine 0 SEEN /hpf (0-5); White Blood Cells 0 SEEN /hpf (0-5)
[2024-04-14 17:52] LABS: Color, Urine Yellow (Yellow); Glucose, Dipstick Normal (Normal); Ketone-Dipstick 50 mg/dl (Negative); Leukocyte Esterase-Dipstick Negative /ul (Negative); Nitrite-Dipstick Negative (Negative); Occult Blood-Urine Negative /ul (Negative); Protein-Dipstick 15 mg/dl (Negative); Urine Bilirubin Dipstick Negative (Negative); Urine Clarity Clear (Clear); Urine Urobilinogen Normal (Normal)
[2024-04-14 17:58] LABS: Internal QC Validated? YES +Cl - CLEAR BKGD; Pregnancy, Urine Negative Negative; Squamous Epithelial Cells - UA 0-5 SEEN /hpf (5-10)
[2024-04-14 18:00] VITALS: BP 134/87; PULSE 91; RESP 16; O2SAT 100
[2024-04-14 20:00] VITALS: BP 138/91; PULSE 85; RESP 18; O2SAT 96
[2024-04-14 20:20] LABS: D-Dimer Quantitative (DVT/PE) < 0.27 FEU/ug/m (0.27-0.49)
[2024-04-14 20:22] LABS: Troponin-I HS < 3 pg/mL (3.0-54.0)
[2024-04-14] MEDS: Mag Hydrox/Al Hydrox/Simeth 30 ML UDC PO (21:12)
[2024-04-14] MEDS: Lidocaine 2% Viscous15 ML UDC 15 ML PO (21:12)
[2024-04-14 21:16] VITALS: BP 133/64; PULSE 68; RESP 16; TEMP 36.8; O2SAT 100
== END 2024-04-14 21:17 | disposition home or self-care (01) ==
PROVIDERS: Physician Assistant; Emergency Provider Emergency Medicine; PCP Internal Medicine; Visit Provider Emergency Medicine
DX: R10.12 Left upper quadrant pain (principal); Z87.891 Personal history of nicotine dependence
CPT/HCPCS: 74176; 80053; 81001; 81025; 83690; 84484; 85025; 85379; 93005; 96374; 96375; 96376; 99283; J7030; A4216; J2405

== ENCOUNTER 2024-11-28 06:16 | Emergency (ER) | payer OTHER, SELFPAY ==
[2024-11-28 06:19] VITALS: BP 158/98; PULSE 94; RESP 12; TEMP 36.6; O2SAT 98; BMI 27.2
[2024-11-28] MEDS: 0.9% Normal Saline (1000mL) 1,000 ML 999 ML IV (06:59)
[2024-11-28] MEDS: Metoclopramide 10 MG/2 ML Vial IV (07:00)
[2024-11-28] MEDS: DiphenhydrAMINE 50 MG/ML Syringe 25 MG IV (07:01)
[2024-11-28] MEDS: diazePAM 5 MG Tablet PO (07:01)
[2024-11-28] MEDS: dexAMETHasone 10 MG/ML Vial IV (07:01)
[2024-11-28] MEDS: Ketorolac 30 MG/ML Syringe IV (07:01)
[2024-11-28 07:15] LABS: Absolute Lymphocyte Count 2.86 X10^3/uL (0.83-4.51); Absolute Neutrophil Count 4.4 X10^3/uL (2.0-7.7); Basophil# 0.07 X10^3/uL; Basophil% 0.8 % (0-1); Eosinophil# 0.29 X10^3/uL; Eosinophils% 3.5 % (0-5); Hematocrit 44.7 % (37-47); Hemoglobin 15.1 g/dL (12.0-15.0); Lymphocyte # 2.86 X10^3/ul (0.83-4.51); Lymphocyte % 34.5 % (19-41); Mean Corp Hgb Conc 33.8 g/dL (32-36); Mean Corpuscular Volume 97.6 fL (81-99); Mean Platelet Vol. 10.6 fl (6.2-12.0); Monocyte# 0.53 X10^3/uL; Monocyte% 6.4 % (0-10); NRBC Flagged by Analyzer 0 % (0-5); Neutrophil # 4.39 X10^3/uL (2.7-7.7); Platelet Count 228 K/mm3 (150-450); RBC Distribution Width CV 11.9 % (11.6-14.6); RBC Distribution Width SD 43.1 fl (35.1-43.9); Red Blood Count 4.58 M/mm3 (4.2-5.4); White Blood Count 8.3 K/mm3 (4.4-11.0)
--- NOTE | 2024-11-28 07:18 | EX.ED.DYSGE1 ---
HPI History of Present Illness Chief Complaint: Dizziness Informant: patient Narrative Narrative: Patient is a 44-year-old female with past medical history of migraine on Ubrelvy as well as SVT and hypertension. She states that she developed a migraine yesterday that feels similar nature to her previous. She states this morning she took her dog out and after coming in felt dizzy which she described as a sense of motion. However after 30 seconds to a minute that sensation was now lightheadedness/near syncopal so she laid down in the kitchen floor and had resolution of symptoms. She then stood up and walked to the bathroom and got the shower started and then had a similar event where she once again started with dizziness described as motion then lowered self to the floor because of near syncope. Secondary to the event happening twice this morning she presents for evaluation. 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 She states she is unsure if she may have picked up an infection which is led to her headache and further symptoms and therefore comes in for evaluation [facility] Medical History Migraines Hypertension NSVT (nonsustained ventricular tachycardia) IBS (irritable bowel syndrome) Essential hypertension Anxiety and depression Obesity (BMI 30.0-34.9) Tobacco use GERD (gastroesophageal reflux disease) Hepatic adenoma RUQ pain Abnormal stress test Chest pain Partial obstruction of small intestine Abdominal pain Home Medications ?Medication ?Instructions ?Recorded ?Last Taken ?Type ergocalciferol (vitamin D2) 1,250 50,000 unit PO MO supplement 07/03/20 11/03/20 History mcg (50,000 unit) capsule furosemide 20 mg tablet 20 mg PO DAILY PRN PRN Swelling 07/03/20 Unknown History rizatriptan 10 mg tablet 10 mg PO .X1 PRN PRN migraines 07/03/20 Unknown History ondansetron 4 mg disintegrating 4 mg PO Q8H PRN nausea and 05/21/21 Unknown Rx tablet vomiting #10 tabs diltiazem HCl 120 mg 120 mg PO DAILY 05/25/21 Unknown History capsule,extended release 24 hr bupropion HCl 150 mg 24 hr tablet, 150 mg PO DAILY 12/20/21 Unknown History extended release hydroxyzine HCl 25 mg tablet 25 mg PO QHS 12/20/21 Unknown History losartan 50 mg tablet 50 mg PO DAILY 12/20/21 Unknown History diphenhydramine HCl 25 mg capsule 25 mg PO Q8H PRN allergic reaction 10/06/22 Unknown Rx (Benadryl) #12 caps epinephrine 0.3 mg/0.3 mL 0.3 mg (0.3 mL) IM Q4H PRN 10/06/22 Unknown Rx injection, auto-injector (EpiPen anaphylaxis #2 ea 2-Mike) famotidine 20 mg tablet (Pepcid) 20 mg PO BID #4 tabs 10/06/22 Unknown Rx prednisone 50 mg tablet 50 mg PO DAILY #2 tabs 10/06/22 Unknown Rx [id number]-tdurqrkppljzj-nenxigeq 1 cap PO Q8H PRN pain 3 days #7 12/19/22 Unknown Rx 50 mg-300 mg-40 mg capsule caps (Fioricet) oxycodone-acetaminophen 5 mg-325 1 tab PO Q8H PRN pain 3 days #10 04/25/23 Unknown Rx mg tablet (Percocet) tabs diazepam 5 mg tablet (Valium) 5 mg PO TID PRN vertigo 7 days #21 11/28/24 Unknown Rx tabs omeprazole 20 mg capsule,delayed 20 mg PO DAILY 11/28/24 Unknown History release ondansetron 4 mg disintegrating 4 mg PO TID PRN nausea and 11/28/24 Unknown Rx tablet vomiting #21 tabs semaglutide 0.25 mg or 0.5 mg (2 0.25 mg subcut QWEEK 11/28/24 Unknown History mg/3 mL) subcutaneous pen injector (Ozempic) Allergy/AdvReac Type Severity Reaction Status Date / Time latex Allergy Mild IRRIATION, Verified 11/28/24 06:18 OR IF SHE INGEST SHE VOMITS. Iodine and Iodide Containing Allergy Anaphylaxis Verified 11/28/24 06:18 Produc morphine Allergy Itching Verified 11/28/24 06:18 Penicillins Allergy Anaphylaxis Verified 11/28/24 06:18 meperidine (From Demerol) AdvReac Nausea Verified 11/28/24 06:18 propoxyphene (From AdvReac Nausea Verified 11/28/24 06:18 Darvocet-N) varenicline (From Chantix) AdvReac Turns me Verified 11/28/24 06:18 into a crazy person Family History no significant family his Surgical History History of carpal tunnel release History of surgery of liver Status post appendectomy Status post hysterectomy Status post cholecystectomy Social History household members: spouse and children Smoking Status: Current every day smoker tobacco type: cigarettes alcohol intake: current details: occasional substance use type: does not use ROS ROS ED Constitutional Constitutional ED: Denies chills or fever(s) Eyes Eyes: Reports other Details: Positive photophobia ENT ENT ED: Denies sore throat Cardiovascular Cardiovascular: Denies chest pain Respiratory/Chest Respiratory/Chest: Reports cough; Denies dyspnea Gastrointestinal Gastrointestinal: Reports nausea; Denies abdominal pain, diarrhea or vomiting Genitourinary Genitourinary ED: Denies dysuria Musculoskeletal Musculoskeletal: Denies myalgias or neck pain Integumentary Denies rash Neurologic Neurologic: Reports headache(s) and other Details: Positive dizziness Hematologic/Lymphatic Hematologic/Lymphatic: Denies easy bleeding or easy bruising EXAM Physical Exam Const Vital Signs: 11/28/24 06:19 11/28/24 06:19 11/28/24 08:18 Temperature 97.9 F Temperature Source Oral Pulse Rate 94 70 Respiratory Rate 12 16 Respiratory Effort Normal Respiratory Pattern Normal Blood Pressure 158/98 H 134/89 H Blood Pressure Mean 118 104 Pulse Ox 98 97 Oxygen Delivery Method Room Air Room Air 11/28/24 08:23 Temperature 98.0 F Temperature Source Pulse Rate 70 Respiratory Rate 16 Respiratory Effort Respiratory Pattern Blood Pressure 134/89 H Blood Pressure Mean 104 Pulse Ox 97 Oxygen Delivery Method Positive well nourished and well developed General Appearance ED: well developed; Negative for pallor HEENT Reports dry mucous membranes HEENT Narrative: Bilateral TMs are retracted but show no secondary changes to suggest infection Mucous membranes are dry and tacky; no tongue or lip swelling no oral lesions no airway edema or compromise Mouth ED: Yes dry mucous membranes Mouth: dry mucous membranes Eyes PERRL and EOMs intact bilaterally General Eye ED: Negative for scleral icterus Neck supple Neck Narrative: No nuchal rigidity or meningeal signs Resp normal respiratory effort and clear to auscultation bilaterally Cardio regular rhythm Rate: tachycardic and other Other Details: Slightly tachycardic rate with regular rhythm No murmurs rubs or gallop Radial and carotid pulses are equal and symmetric GI normal to inspection, nondistended, normoactive bowel sounds, non-tender, non-distended and no masses Auscultation: normoactive bowel sounds Palpation: soft Extremity normal to inspection Extremity Narrative: No asymmetric edema no pitting edema negative Homans' sign bilaterally Neuro oriented x3, CN's II-XII intact bilaterally and no sensory deficits noted Neuro Narrative: GCS of 15 Cranial nerves II through XII are grossly intact without focal neurologic deficit No pronator drift no dysmetria no truncal ataxia Mild horizontal nystagmus noted Positive Hallpike Rojas exam on right NIH stroke scale score of 0 Sensorium / Orientation: alert Motor Exam: strength 5/5 throughout Psych mental status grossly normal Skin no rashes or lesions noted and no wounds Skin Narrative: Skin turgor slightly increased General Skin Exam: Negative for jaundice or pallor MDM MDM MDM Narrative Medical decision making narrative: Patient arrived to the ER hypertensive but has a past medical history of this. She reported migraine headache on Tuesday followed by bouts of dizziness Tuesday. Dizziness is described more as a sense of motion which is consistent with peripheral vertigo. As there is no report or signs of trauma she is afebrile and this headache is similar nature to her previous I do not feel there is need for emergent imaging studies. She does not have truncal ataxia and she does have reproducible dizziness with Hallpike [place] exam indicating peripheral vertigo not central so there is no need to activate a stroke alert. As she does have physical exam findings consistent with dehydration basic blood work will be obtained to ensure there is no findings for acute blood loss anemia or acute kidney injury or clinically significant electrolyte abnormality. Lab work revealed no clinically significant finding an EKG was sinus rhythm. Patient was given Valium for the peripheral vertigo and had improvement of this. She was given IV fluids Toradol Benadryl Reglan and Decadron as well as Dilaudid secondary to the headache and this did help reduce the headache. On reevaluation vitals are stable neurologic exam is normal and therefore do not feel there is need for further evaluation in the ER and she is otherwise safe for discharge. History & Record Review Discussion w/independent historian: Patient Lab Data Attestation: I reviewed the patient's lab results. Labs: Laboratory Results - last 24 hr 11/28/24 06:31 WBC 8.3 RBC 4.58 Hgb 15.1 H Hct 44.7 MCV 97.6 MCH 33.0 H MCHC 33.8 RDW Std Deviation 43.1 RDW Coeff of Lynette 11.9 Plt Count 228 MPV 10.6 Immature Gran % (Auto) 1.800 H Neut % (Auto) 53.0 Lymph % (Auto) 34.5 [place] % (Auto) 6.4 Eos % (Auto) 3.5 Baso % (Auto) 0.8 Absolute Neuts (auto) 4.4 Absolute Lymphs (auto) 2.86 Nucleated RBC % 0 Sodium 137 Potassium 4.1 Chloride 106 Carbon Dioxide 27.0 Anion Gap 5 BUN 12 Creatinine 0.76 Estim Creat Clear Calc 92.85 Est GFR (MDRD) Af Amer 106 Est GFR (MDRD) Non-Af 88 BUN/Creatinine Ratio 15.8 Glucose 101 Calcium 9.3 Magnesium 2.1 Discharge Plan Triage Chief Complaint: Dizziness Other Complaint: Syncope ED Provider: Antoine Conner Dx/Rx/DC Orders Clinical Impression: Peripheral vertigo, Migraine headache, Essential hypertension Instructions: ED, Migraine (Classical), ED Vertigo, Unspecified Prescriptions: New diazepam [Valium] 5 mg tablet 5 mg PO TID PRN (Reason: vertigo) 7 Days Qty: 21 0RF ondansetron 4 mg tablet,disintegrating 4 mg PO TID PRN (Reason: nausea and vomiting) Qty: 21 0RF No Action rizatriptan 10 MG tablet 10 mg PO .X1 PRN PRN (Reason: migraines) furosemide 20 MG tablet 20 mg PO DAILY PRN PRN (Reason: Swelling) ergocalciferol (vitamin D2) 50,000 UNIT capsule 50,000 unit PO MO ondansetron 4 mg tablet,disintegrating 4 mg PO Q8H PRN (Reason: nausea and vomiting) Qty: 10 0RF diltiazem HCl 120 mg capsule,extended release 24hr 120 mg PO DAILY losartan 50 mg Tablet 50 mg PO DAILY hydroxyzine HCl 25 mg tablet 25 mg PO QHS Patient Comments: TAKE 1 TABLET BY MOUTH EVERY 6 HOURS NEEDED FOR ITCHING/RASH. bupropion HCl 150 mg tablet extended release 24 hr 150 mg PO DAILY Patient Comments: TAKE 1 TABLET BY MOUTH EVERY DAY prednisone 50 mg tablet 50 mg PO DAILY Qty: 2 0RF famotidine [Pepcid] 20 mg tablet 20 mg PO BID Qty: 4 0RF diphenhydramine HCl [Benadryl] 25 mg capsule 25 mg PO Q8H PRN (Reason: allergic reaction) Qty: 12 0RF epinephrine [EpiPen 2-Mike] 0.3 mg/0.3 mL auto-injector 0.3 mg IM Q4H PRN (Reason: anaphylaxis) Qty: 2 0RF [id number] [Fioricet] 50-300-40 mg capsule 1 cap PO Q8H PRN (Reason: pain) 3 Days Qty: 7 0RF oxycodone-acetaminophen [Percocet] 5-325 mg tablet 1 tab PO Q8H PRN (Reason: pain) 3 Days Qty: 10 0RF Ozempic 0.25 mg or 0.5 mg (2 mg/3 mL) pen injector 0.25 mg subcut QWEEK Rx Instructions: for 4 weeks omeprazole 20 mg capsule,delayed release(DR/EC) 20 mg PO DAILY Stand Alone Forms: ED Work / School Excuse Primary Care Provider: Nciky Mccall Referrals: Nicky Mccall MD [Primary Care Provider] - Activity Restrictions/Additional Instructions: Please use the Valium as directed to help control further bouts of dizziness and return to the ER should you have any further concerns Print Language: Pashto Disposition Disposition: Home, Self Care
[2024-11-28 07:24] LABS: Anion Gap 5 (5-15); BUN 12 mg/dL (7-18); BUN/Creat Ratio 15.8 RATIO (10-20); Calcium,Total 9.3 mg/dL (8.5-10.1); Chloride 106 mmol/L (98-107); Creatinine, Serum 0.76 mg/dL (0.55-1.02); EST Glomerular Filtration Rate 88 mL/min (>60); Est Glom Filt Rate - Afr Amer 106 mL/min (>60); Estimated Creatinine Clearance 92.85 ml/min; Glucose 101 mg/dL (74-106); Magnesium 2.1 mg/dL (1.6-2.6); Potassium 4.1 mmol/L (3.5-5.1); Sodium Level 137 mmol/L (136-145)
[2024-11-28 08:18] VITALS: BP 134/89; PULSE 70; RESP 16; O2SAT 97
[2024-11-28 08:23] VITALS: BP 134/89; PULSE 70; RESP 16; TEMP 36.7; O2SAT 97
[2024-11-28] MEDS: HYDROmorphone 1 MG/ML Syringe IV (08:30)
== END 2024-11-28 09:00 | disposition home or self-care (01) ==
PROVIDERS: Emergency Provider Emergency Medicine; PCP Internal Medicine; Visit Provider Emergency Medicine
DX: H81.399 Other peripheral vertigo, unspecified ear (principal); G43.909 Migraine, unspecified, not intractable, without status migrainosus; I47.10 Supraventricular tachycardia, unspecified; I10 Essential (primary) hypertension; F41.9 Anxiety disorder, unspecified; F32.A Depression, unspecified; K21.9 Gastro-esophageal reflux disease without esophagitis; F17.210 Nicotine dependence, cigarettes, uncomplicated; Z88.0 Allergy status to penicillin; Z79.899 Other long term (current) drug therapy
CPT/HCPCS: 80048; 83735; 85025; 87631; 93005; 96361; 96374; 96375; 99283; A4216

== ENCOUNTER → 2025-04-05 | Outpatient (CLI) | payer OTHER, SELFPAY ==
--- OUTSIDE RECORDS SUMMARY | 2025-04-05 07:10 | XMS RPT_ITS | CCD ---
Author Organization [facility] Care Team Providers Care Race Board Attendant Name Role Phone KB Gipson, Salima Scott Unavailable Unavailroro Gipson RN, Salima Scott Unavailable Unavailroro Ovalles RN, Alyce Johnson Unavailable Unavailable KB Gipson, Salima Scott Unavailable Unavailroro Ovalles RN, Alyce A Unavailable Unavailable Tiffany Purcell Unavailable Unavailable Alyce Ovalles RN Unavailable Unavailable [facility] Nurse Unavailable Unavailable KB Gipson, Salima Scott Unavailable Unavailroro Gipson RN, Salima Scott Unavailable UnavailTiffany Kirkpatrick Unavailable Unavailable SIVAN AUSTIN Referring Unavailable Nciky Knight MD Primary Care Provider Unavailable Primary Care Provider UnavailNicky Burnham MD Primary Care Provider Nicky Knight MD Primary Care Provider Nicky Knight MD Primary Care Provider MD Nicky Mabry Primary Care Provider Unava ilable Dr. Andria Carcamo Emergency Provider Dr. Rosemary Melchor Attending Provider OLDER, CAROLE Referring Unavailable EUGENE, NICKY Primary Care Unavailable ANDRIA CARCAMO Referring Unavailable EUGENE, NICKY Primary Care Unavailable SHAHANA REYNOSO Admitting Unavailable SHAHANA REYNOSO Attending Unavailable Nicky Knight MD Primary Care Provider NICKY KNIGHT Primary Care Unavailable GERALD PHAM Referring Unavailable EUGENE, NICKY Primary Care Unavailable KAIDEN GERALD Attending Unavailable Nicky Knight MD Primary Care Provider Valerie RAMOS, Albina Lambert Unavailable [phone] Older HYDROELECTRIC PLANT MAINTAINER.ECOMMERCE MANAGER, Carole Unavailable Yaquelin RAMOS, Cristal Unavailable Antoine Conner Attending Unavailable Ganta, Nicky Primary Care Unavailable Ganta, Nicky Primary Care Unavailable Romaine Dawkins Attending Unavailable Valerie RAMOS, Albina Lambert Unavailable [phone] Yaquelin RAMOS, Cristal Unavailable GANTA, NICKY Primary Care Unavailable GANTA, NICKY Primary Care Unavailable GANTA, NICKY Primary Care Unavailable GANTA, NICKY Primary Care Unavailable GARYYMAREKA R Referring Unavailable GANTA, NICKY Primary Care Unavailable OLDER, CAROLE Attending Unavailable GANTA, NICKY Primary Care Unavailable GANTA, NICKY Primary Care Unavailable JAMAR VALENCIA Attending Unavailable GANTA, NICKY Primary Care Unavailable Allergies Allergy Classification Reported Allergen(s) Allergy Type Date of Onset Reaction(s) Facility (10 sources) amoxicillin drug allergy 7 Anaphylaxis [facility] Work Phone: [phone] (10 sources) HYDROmorphone drug allergy 7 Anxious and itchy [facility] Work Phone: [phone] (20 sources) natural latex rubber; Translations: [LATEX] allergy to substance 5 Other: See Comments [facility] Work Phone: [phone] (10 sources) varenicline drug allergy 7 Severe mood changes [facility] Work Phone: (20 sources) Meperidine; Translations: [MEPERIDINE (PF)] Drug Allergy 8 Other: See Comments [facility] Other [place] [facility] (20 sources) Penicillins; Translations: [PENICILLINS] Propensity to adverse reactions to drug (disorder) 5 Hives, Anaphylaxis, Shortness of Breath [facility] Repository (20 sources) varenicline; Translations: [VARENICLINE] Drug Allergy 6 Other: See Comments, Rash, Other [facility] Repository (20 sources) Morphine; Translations: [MORPHINE] Drug Allergy 0 Hives, Itching [facility] (20 sources) Propoxyphene; Translations: [PROPOXYPHENE] Drug Allergy 9 Intolerance, Other [facility] (20 sources) Iodine; Translations: [IODINE] Drug Allergy 2 Hives, Swelling [facility] Work Phone: (5 sources) HYDROmorphone Drug Allergy 4 Nausea And Vomiting [facility] Work Phone: (5 sources) Latex Propensity to adverse reactions to drug 5 Rash [facility] Work Phone: (9 sources) Meperidine Drug Allergy 7 Nausea And Vomiting [facility] (5 sources) Iodides Propensity to adverse reactions to drug 2 Hives, Swelling [facility] (4 sources) Iodine Compounds Allergy to substance [address] [facility] (4 sources) Acetaminophen Drug Allergy 9 [facility] (4 sources) Latex Allergy to substance 5 Other, Rash [facility] (1 source) Latex Drug allergy (disorder) 5 [facility] Repository (1 source) Meperidine Drug Allergy [address] [facility] Repository (1 source) Morphine Drug Allergy [address] [facility] Repository (1 source) Propoxyphene Drug Allergy [address] [facility] Repository (1 source) Iodine and Iodide Containing Produc Drug allergy (disorder) 5 [facility] Repository Medications Current Medications Medication Drug Class(es) Dates Sig (Normalized) Sig (Original) acetaminophen 300 mg / butalbital 50 mg / caffeine 40 mg oral capsule (10 sources) Barbiturate, Central Nervous System Stimulant, Methylxanthine Start: 12-19-2022 take 1 capsule by mouth every eight hours Butalbital-Aceta minophen-Caff (Fioricet) 50-300-40 mg capsule Active 1 CAP PO Q8H 7 3 December 19, 2022 1:00am Start: 12-16-2022 End: 01-21-2023 take 1-2 tablets by mouth every six hours for headache acetaminophen 325 mg-caffeine 40 mg-butalbital 50 mg (FIORICET) per tablet take 1 to 2 tablets by mouth every 6 hours if needed for headache for up to 5 days 0 12/16/2022 01/21/2023 Discontinued (Discontinued by another Health Care Provider) Comment on above: take 1 to 2 tablets by mouth every 6 hours if needed for headache for up to 5 days acetaminophen 500 mg / caffeine 65 mg oral tablet (3 sources) Central Nervous System Stimulant, Methylxanthine Start: End: 3 take 2 tablets by mouth every six hours as needed acetaminophen-c affeine (EXCEDRIN TENSION HEADACHE) 500-65 mg tablet Take 2 tablets by mouth every 6 hours as needed for up to 5 days. 40 tablet 0 12/28/2022 01/02/2023 Active Comment on above: Take 2 tablets by mo uth every 6 hours as needed for up to 5 days. acetaminophen 325 mg / oxyCODONE hydrochloride 5 mg oral tablet (5 sources) Opioid Agonist Start: take 1 tablet by mouth every eight hours Oxycodone-Aceta minophen (Percocet) 5-325 mg tablet Active 1 TABLET PO Q8H 10 April 25, 2023 Start: 10-26-2019 End: 10-29-2019 take 1 tablet by mouth every six hours as needed Oxycodone-Acetaminophen Discontinued 1 TABLET PO EVERY 6 HOURS NEEDED 12 October 26, 2019 October 29, 2019 1:08am [id number] actuat albuterol 0.09 mg/actuat metered dose inhaler (5 sources) beta2-Adrenergic Agonist Start: 09-25-2024 take 2 puff(s) by inhalation every four hours as needed for wheezing albuterol HFA (VENTOLIN HFA) 90 mcg/actuation inhaler Inhale 2 Puffs as instructed every 4 hours as needed for wheezing/shortness of breath. 1 Each 09/25/2024 Active baclofen 5 mg oral tablet (20 sources) gamma-Aminobutyric Acid-ergic Agonist Start: 03-08-2023 take 1-2 tablets by mouth twice daily for headache baclofen (LIORESAL) 5 mg tablet Indications: Intractable migraine with aura without status migrainosus take 1 TO 2 tablet by mouth twice a day if needed for headache 25 tablet 3 03/08/2023 Active Start: 01-14-2023 End: 03-08-2023 baclofen (LIORESAL) 5 mg tab let Indications: Intractable migraine with aura without status migrainosus Take 5-10mg up to twice a day as needed for headache. 25 tablet 3 01/14/2023 03/08/2023 Discontinued Comment on above: Take 5-10mg up to tw ice a day as needed for headache. take 1 TO 2 tablet b y mouth twice a day if needed for headache benzonatate 100 mg oral capsule (8 sources) Non-narcotic Antitussive Start: take 1 capsule by mouth three times daily as needed benzonatate (TESSALON PERLE) 100 mg capsule Indications: Acute cough Take 1 capsule by mouth three times a day as needed. 21 capsule 10/31/2024 Active Start: 09-25-2024 take 2 capsules by m outh every eight hours as needed benzonatate (TESSALON PERLE) 100 mg capsule Take 2 capsules by mouth three times a day as needed. 30 capsule 09/25/2024 Active cyclobenzaprine hydrochloride 5 mg oral tablet (3 sources) Muscle Relaxant Start: 12-28-2022 End: 01-02-2023 take 1 tablet by mouth every eight hours as needed cyclobenzaprine (FLEXERIL) 5 mg tablet Take 1 tablet by mouth three times daily as needed for up to 5 days. 15 tablet 0 12/28/2022 01/02/2023 Active Comment on above: Take 1 tablet by viola three times daily as needed for up to 5 days. docusate sodium 50 mg / sennosides, [facility] 8.6 mg oral tablet (1 source) Start: 03-25-2022 sennosides-docusate sodium (SENOKOT-S) 8.6-50 MG tablet 2 tablet [id number] 0.3 ml EPINEPHrine 1 mg/ml auto-injector (4 sources) alpha-Adrenergic Agonist, beta-Adrenergic Agonist, Catecholamine Start: 10-06-2022 Epinephrine (Epipen 2-Laverne) 0.3 mg/0.3 mL auto-injector Active 0.3 MG IM Q4H October 06, 2022 1:00am ergocalciferol 1.25 mg oral capsule (6 sources) Provitamin D2 Compound Start: 07-03-2020 take 20914 [IU] by mouth once Ergocalciferol (Vitamin D2) Active 32821 UNIT PO [place] July 03, 2020 12:00am Start: 08-07-2018 take 05899 [IU] by m outh every week 50,000 Units, Oral, WEEKLY, First dose on Tue03/22/22 at 0900, Until Discontinued Every Tuesday famotidine 20 mg oral tablet (4 sources) Histamine-2 Receptor Antagonist Start: 10-06-2022 take 1 tablet by mouth twice daily Famotidine (Pepcid) 20 mg tablet Active 20 MG PO TWICE A DAY October 06, 2022 1:00am fidaxomicin 200 mg oral tablet (1 source) Macrolide Antibacterial Start: 01-18-2022 End: 01-28-2022 take 1 tablet by mouth twice daily fidaxomicin (DIFICID) 200 mg tablet Take 1 tablet by mouth twice daily for 10 days. 20 tablet 0 01/18/2022 01/28/2022 Active Comment on above: Take 1 tablet by viola twice daily for 10 days. folic acid 1 mg oral tablet (9 sources) Start: 04-22-2023 End: 06-27-2024 take 1 tablet by mouth once daily folic acid 1 mg tablet Indications: Low folate Take 1 tablet by mouth once daily. 30 tablet 5 12/30/2023 06/27/2024 Active Comment on above: Take 1 tablet by viola once daily. gabapentin 300 mg oral capsule (20 sources) Anti-epileptic Agent Start: 01-06-2023 End: 03-16-2024 take 1 capsule by mouth three times daily gabapentin (NEURONTIN) 300 mg capsule Indications: Thunderclap headache Take 1 capsule by mouth three times daily. 90 capsule 5 03/17/2023 Active Start: 12-28-2021 End: 07-07-2022 take 1 capsule by mouth once daily at bedtime gabapentin (NEURONTIN) 300 mg capsule Indications: neuropathic pain Take 1 capsule by mouth daily at bedtime for 90 days. 30 capsule 2 04/08/2022 06/30/2022 Discontinued (Discontinued by Patient) Start: 10-15-2021 End: 12-26-2021 take 1 capsule by mouth once daily at bedtime gabapentin (NEURONTIN) 300 mg capsule Indications: neuropathic pain Take 1 capsule by mouth daily at bedtime for 90 days. 30 capsule 2 10/15/2021 12/26/2021 Discontinued Start: 06-10-2021 End: 08-21-2021 take 1 capsule by mouth once daily at bedtime gabapentin (NEURONTIN) 300 mg capsule Indications: neuropathic pain Take 1 capsule by mouth daily at bedtime for 90 days. 30 capsule 2 06/10/2021 08/21/2021 Discontinued Comment on above: Take 1 capsule by mo [facility] daily at bedtime for 90 days. Take 1 capsule by [facility] three times daily. hydrOXYzine hydrochloride 25 mg oral tablet (20 sources) Antihistamine Start: 12-07-19 End: 06-30-20 take 25 mg by mouth at bedtime Hydroxyzine Hcl Active 25 MG PO AT BEDTIME December 20, 2021 1:00am Comment on above: Take 1 tablet by viola th every 6 hours as needed for itching/rash. ibuprofen 800 mg oral tablet (20 sources) Nonsteroidal Anti-inflammatory Drug Start: 04-11-20 End: 04-11-20 take 1 tablet by mouth every eight hours as needed for pain ibuprofen (MOTRIN) 800 mg tablet Indications: Injury of left knee, initial encounter Take 1 tablet by mouth every 8 hours as needed for pain. Take with food. 30 tablet 1 04/11/2023 Active End: 03-27-2022 take 1 tablet by mouth every six hours as needed for pain ibuprofen (ADVIL;MOTRIN) 400 MG tablet Take 400 mg by mouth every 6 hours as needed for Pain 0 03/27/2022 Discontinued (Stop Taking at Discharge) Comment on above: Take 1 tablet by viola every 8 hours as needed for pain. Take with food. iv contrast (will be provided with radiology test) (2 sources) Star t: 12-09 End: 12-10 inject 1 dose intravenously once iv contrast (will be provided with radiology test) MRI Brain Inject, intravenously, once for 1 dose.No IV access, insert saline lock prior to beginning of sedation, infusion, injection of imaging exam.Discontinue saline lock post exam. If Pt. has a central line or IVAD, may access for administration according to line specific nursing protocol.Once exam is complete flush line and de-access according to line specific nursing protocol in the MR contrast administration guidelines link 1 Each 0 01/05/2023 01/06/2023 Active Comment on above: MRI Brain Inject, in travenously, once for 1 dose.No IV access, insert saline lock prior to beginning of sedation, infusion, injection of imaging exam.Discontinue saline lock post exam. If Pt. has a central line or IVAD, may access for administration according to line specific nursing protocol.Once exam is complete flush line and de-access according to line specific nursing protocol in the MR contrast administration guidelines link losartan potassium 50 mg oral tablet (20 sources) Angiotensin 2 Receptor Esperanza Star t: 04-28 End: 06-11 take 50 mg by mouth once daily Losartan Active 50 MG PO DAILY December 20, 2021 1:00am Comment on above: Take 1 tablet by viola th once daily. methylPREDNISolone (1 source) Corticosteroid Star t: 01-08 End: 01-08 methylPREDNISolone (MEDROL, LAVERNE,) 4 mg Dose-Pack Take as directed 21 tablet 0 01/21/2023 01/26/2023 Active Comment on above: Take as directed metoprolol tartrate 25 mg oral tablet (20 sources) beta-Adrenergic Esperanza Star t: 10-10 23 take 1 tablet by mouth once daily metoprolol tartrate, short acting, (LOPRESSOR) 25 mg tablet Indications: Microvascular angina Take 1 tablet by mouth once daily. As directed 30 tablet 11 10/25/2022 Active Comment on above: Take 1 tablet by viola th once daily. As directed nebivolol 2.5 mg oral tablet (10 sources) Star t: 12-09 24 take 1 tablet by mouth once daily nebivolol (BYSTOLIC) 2.5 mg tablet Indications: Microvascular angina , Nonsustained ventricular tachycardia (HCC) Take 1 tablet by mouth once daily. 30 tablet 11 01/02/2024 Active Comment on above: Take 1 tablet by viola th once daily. OLANZapine 10 mg oral tablet (20 sources) Atypical Antipsychotic Star t: 05-29 23 take 0.5-1 tablets by mouth at bedtime OLANZapine (ZYPREXA) 10 mg tablet Indications: Intractable migraine with aura without status migrainosus , Thunderclap headache take 1/2 to 1 tablet by mouth at bedtime for 30 days 30 tablet 03/17/2023 Active Start: 02-04-2023 End: 03-15-2023 take 1 tablet by mouth at bedtime OLANZapine (ZYPREXA) 10 mg tablet Indications: Thunderclap headache , Intractable migraine with aura without status migrainosus take 1 tablet by mouth at bedtime for 5 days 5 tablet 0 03/15/2023 Active Comment on above: Take 1 tablet by viola th daily at bedtime for 5 days. take 1 tablet by viola th at bedtime for 5 days take 1/2 to 1 tablet by mouth at bedtime for 30 days ondansetron 4 mg disintegrating oral tablet (20 sources) Serotonin-3 Receptor Antagonist Start: 01-02-20 End: 04-03-20 take 1 tablet by mouth every eight hours as needed for nausea ondansetron orally disintegrating (ZOFRAN ODT) 4 mg disintegrating tablet Indications: Migraine with aura and without status migrainosus, not intractable Take 1 tab every 8 hours as needed for nausea 30 tablet 3 04/03/2025 Active Start: 03-17-2022 End: 03-17-2022 ondansetron (ZOFRAN) injecti on 4 mg Start: 12-28-2021 End: 06-30-2022 take 1 tablet by mouth once daily at bedtime ondansetron orally disintegrating (ZOFRAN ODT) 4 mg disintegrating tablet Take 1 tablet by mouth daily at bedtime. 30 tablet 0 03/15/2022 06/30/2022 Discontinued (Discontinued by Patient) Start: 08-12-2021 End: 12-26-2021 take 1 tablet by mouth once daily at bedtime ondansetron orally disintegrating (ZOFRAN ODT) 4 mg disintegrating tablet Take 1 tablet by mouth daily at bedtime. 30 tablet 0 10/15/2021 12/26/2021 Discontinued Start: 05-21-2021 End: 12-29-2023 take 1 tablet by mouth every eight hours as needed for nausea ondansetron orally disintegrating (ZOFRAN ODT) 4 mg disintegrating tablet Take 1 tab every 8 hours as needed for nausea 30 tablet 3 03/15/2023 12/29/2023 Discontinued Start: 06-17-2018 End: 09-09-2020 take 4 mg by mouth every eight hours as needed Ondansetron Discontinued 4 MG PO EVERY 8 HOURS NEEDED July 03, 2020 12:00am September 09, 2020 4:20pm take 1 tablet by viola th every eight hours as needed for nausea ondansetron (ZOFRAN) 4 MG tablet Take 4 mg by mouth every 8 hours as needed for Nausea or Vomiting 0 Active Comment on above: Take 1 tablet by viola th daily at bedtime. Take 1 tab every 8 h ours as needed for nausea ondansetron (ZOFRAN-ODT) disintegrating tablet 4 mg (1 source) Start: 2 ondansetron (ZOFRAN-ODT) disintegrating tablet 4 mg oxyCODONE hydrochloride 5 mg oral tablet (11 sources) Opioid Agonist Start: 3 End: 3 take 1 tablet by mouth every six hours as needed oxyCODONE IR (ROXICODONE) 5 mg immediate release tablet Indications: Intractable acute post-traumatic headache Take 1 tablet by mouth every 6 hours as needed for up to 3 days. 12 tablet 0 12/28/2022 12/31/2022 Active Start: 03-27-2022 End: 03-30-2022 take 1 tablet by mouth every six hours as needed for pain oxyCODONE (ROXICODONE) 5 MG immediate release tablet Indications: Abdominal pain, right upper quadrant Take 1 tablet by mouth every 6 hours as needed for Pain for up to 3 days. 10 tablet 0 03/27/2022 03/30/2022 Active Start: 03-23-2022 End: 03-27-2022 oxyCODONE (ROXICODONE) immed iate release tablet 10 mg Start: 03-19-2022 End: 03-19-2022 oxyCODONE (ROXICODONE) immed iate release tablet 10 mg Start: 01-16-2019 End: 01-19-2019 take 5 mg by mouth every four hours as needed Oxycodone Discontinued 5 MG PO EVERY 4 HOURS NEEDED 07 12January 16, 2019 12:00am January 19, 2019 12:09am Comment on above: Take 1 tablet by viola th every 6 hours as needed for up to 3 days. predniSONE 20 mg oral tablet (5 sources) Start: 09-25-2024 End: 09-30-2024 take 2 tablets by mouth once daily predniSONE (DELTASONE) 20 mg tablet Take 2 tablets by mouth once daily for 5 days. 10 tablet 09/25/2024 09/30/2024 Active Start: 10-06-2022 take 50 mg by mouth once daily Prednisone Active 50 MG PO DAILY October 06, 2022 1:00am 1 ml promethazine hydrochloride 25 mg/ml injection (3 sources) Phenothiazine Start: 03-20-2022 promethazine ( PHENERGAN) injection 12.5 mg Start: 03-17-2022 End: 03-17-2022 promethazine (PHENERGAN) inj ection 12.5 mg take 1 tablet by viola th every six hours as needed for nausea promethazine (PHENERGAN) 12.5 MG tablet Take 12.5 mg by mouth every 6 hours as needed for Nausea 0 Active propranolol hydrochloride 20 mg oral tablet (1 source) beta-Adrenergic Esperanza Start: 04-03-2025 take 1 tablet by mouth twice daily propranolol (INDERAL) 20 mg tablet Indications: Migraine with aura and without status migrainosus, not intractable Take 1 tablet by mouth two times a day. 60 tablet 04/03/2025 Active semaglutide 0.25 mg/0.5 mL (0.5 mg/mL) subcutaneous compounded injection (1 source) Start: 10-28-2024 inject 0.25 mg by subcutaneous injection every week semaglutide 0.25 mg/0.5 mL (0.5 mg/mL) subcutaneous compounded injection Inject 0.25 mg subcutaneously one time a week. 10/28/2024 Active spironolactone 100 mg oral tablet (6 sources) Aldosterone Antagonist Start: 12-05-2024 take 1 tablet by mouth once daily at bedtime spironolactone (ALDACTONE) 100 mg tablet TAKE 1 TABLET BY MOUTH ONCE DAILY BEFORE BEDTIME WITH A FULL GLASS OF WATER 12/05/2024 Active sulfamethoxazole 800 mg / trimethoprim 160 mg oral tablet (3 sources) Dihydrofolate Reductase Inhibitor Antibacterial, Sulfonamide Antimicrobial Start: 12-28-2022 End: 12-31-2022 take 1 tablet by mouth every twelve hours sulfamethoxazole- trimethoprim (BACTRIM DS) 800-160 mg per tablet Take 1 tablet by mouth every 12 hours for 3 days. 6 tablet 0 12/28/2022 12/31/2022 Active Comment on above: Take 1 tablet by viola th every 12 hours for 3 days. ubrogepant 100 mg oral tablet (20 sources) Start: 02-04-2023 End: 04-03-2025 take 1 tablet by mouth every two hours as needed for headache ubrogepant (UBRELVY) 100 mg tablet Indications: Migraine with aura and without status migrainosus, not intractable Take 1 tablet by mouth as needed (severe headache.). Repeat in 2 hours if needed. 16 tablet 4 04/03/2025 Active Comment on above: Take 1 tablet by viola th as needed (severe headache.). Repeat in 2 hours if needed. Completed/Discontinued Medications Medication Drug Class(es) Dates Sig (Normalized) Sig (Original) acetaminophen 325 mg / HYDROcodone bitartrate 5 mg oral tablet (8 sources) Opioid Agonist Start: 10-18-2020 End: 10-20-2020 take 1 tablet by mouth every four hours as needed Hydrocodone-Acetami nophen Discontinued 1 TABLET PO EVERY 4 HOURS NEEDED 10 October 18, 2020 October 20, 2020 1:03am Start: 05-18-2020 End: 05-20-2020 take 1 tablet by mouth every four hours as needed Hydrocodone-Acetaminophen Discontinued 1 TABLET PO EVERY 4 HOURS NEEDED 07 11May 18, 2020 May 20, 2020 12:02am amitriptyline hydrochloride 25 mg oral tablet (9 sources) Tricyclic Antidepressant Start: 04-08-2022 End: 06-30-2022 take 1 tablet by mouth once daily at bedtime amitriptyline (ELAVIL) 25 mg tablet Take 1 tablet by mouth daily at bedtime. 30 tablet 5 04/08/2022 06/30/2022 Discontinued (Discontinued by Patient) Comment on above: Take 1 tablet by viola th daily at bedtime. aspirin 325 mg oral tablet (7 sources) Nonsteroidal Anti-inflammatory Drug Start: 05-20-2017 take 1 tablet by mouth once daily ASPIRIN 325 MG TABS One tablet by mouth daily ASPIRIN [id number] Alyce Ovalles RN azithromycin 250 mg oral tablet (1 source) Macrolide Antimicrobial Start: 07-30-2018 End: 03-27-2022 azithromycin (ZITHROMAX Z-LAVERNE) 250 MG tablet Take 2 tablets (500 mg) on Day 1, and then take 1 tablet (250 mg) on days 2 through 5. 1 packet 0 07/30/2018 03/27/2022 Discontinued (Stop Taking at Discharge) 24 hr buPROPion hydrochloride 300 mg extended release oral tablet (20 sources) Aminoketone Start: 03-20-2022 take 300 mg by mouth once daily 300 mg, Oral, DAILY, First dose on 03/20/22 at 0900, Until Discontinued Do not crush or break. Start: 01-25-2022 End: 06-30-2022 take 2 tablets by mouth once daily buPROPion XL (WELLBUTRIN XL) 150 mg 24 hr tablet Take 2 tablets by mouth once daily. 60 tablet 5 01/25/2022 06/30/2022 Discontinued (Discontinued by Patient) Start: 2022 take 1 tablet by viola th once daily buPROPion XL (WELLBUTRIN XL) 150 mg 24 hr tablet TAKE 1 TABLET BY MOUTH EVERY DAY 30 tablet 5 2022 Active Start: 12-20-2021 take 150 mg by mouth once ellen y Bupropion Hcl Active 150 MG PO DAILY December 20, 2021 1:00am Start: 12-07-2021 take 1 tablet by viola th once daily buPROPion XL (WELLBUTRIN XL) 150 mg 24 hr tablet Take 1 tablet by mouth once daily. 30 tablet 1 12/07/2021 Active Start: 07-03-2020 End: 09-09-2020 take 150 mg by mouth every other day Bupropion Hcl Discontinued 150 MG PO EVERY OTHER DAY July 03, 2020 12:00am September 09, 2020 4:24pm Comment on above: Take 1 tablet by viola th once daily. TAKE 1 TABLET BY VIOLA TH EVERY DAY Take 2 tablets by mo ut once daily. cholecalciferol 1.25 mg oral capsule (20 sources) Vitamin D Start: End: 022 take 1 capsule by mouth every week cholecalciferol, Vitamin D3, (VITAMIN D3) 1,250 mcg (50,000 unit) cap capsule Indications: Vitamin D deficiency Take 1 capsule by mouth one time a week. 4 capsule 5 04/08/2022 06/30/2022 Discontinued (Discontinued by Patient) Comment on above: Take 1 capsule by mo ut one time a week. colestipol hydrochloride 5000 mg granules for oral suspension (9 sources) Bile Acid Sequestrant Start: End: take 5 g by mouth twice daily colestipol (COLESTID) 5 gram packet Indications: Diarrhea, unspecified type Take 5 g by mouth twice daily. 60 Packet 5 04/08/2022 06/30/2022 Discontinued (Discontinued by Patient) Comment on above: Take 5 g by mouth tw ice daily. 1 ml dexamethasone phosphate 4 mg/ml injection (2 sources) Corticosteroid Start: End: dexAMETHasone (Decadron) injection 10 mg 24 hr dilTIAZem hydrochloride 120 mg extended release oral capsule (20 sources) Calcium Channel Esperanza Start: End: take 1 capsule by mouth once daily dilTIAZem CD (CARDIZEM CD) 120 mg 24 hr capsule Indications: Essential hypertension Take 1 capsule by mouth once daily. 30 capsule 11 03/02/2021 04/26/2022 Discontinued take 1 tablet by mouth once ellen y dilTIAZem (CARDIZEM LA) 120 MG TB24 extended release tablet Take 120 mg by mouth daily 0 Active Comment on above: Take 1 capsule by [facility] once daily. [facility]LE [facility] 1 ml diphenhydrAMINE hydrochloride 50 mg/ml cartridge (11 sources) Histamine-1 Receptor Antagonist Start: 12-16-2022 End: 12-16-2022 diphenhydrAMINE (BENADryl) injection 25 mg Start: 10-06-2022 take 1 capsule by [facility] every eight hours Diphenhydramine Hcl (Benadryl) 25 mg capsule Active 25 MG PO Q8H October 06, 2022 1:00am Start: 03-23-2022 diphenhydrAMIN E (BENADRYL) tablet 25 mg Start: 03-18-2022 End: 03-23-2022 diphenhydrAMINE (BENADRYL) i njection 25 mg esomeprazole 20 mg delayed release oral tablet (4 sources) Proton Pump Inhibitor Start: 07-03-2020 End: 09-09-2020 take 20 mg by mouth once daily Esomeprazole Magnesium Discontinued 20 MG PO DAILY July 03, 2020 12:00am September 09, 2020 4:24pm 2 ml fentaNYL 0.05 mg/ml injection (2 sources) Opioid Agonist Start: 03-23-2022 End: 03-23-2022 fentaNYL (SUBLIMAZE) injection furosemide 20 mg oral tablet (20 sources) Loop Diuretic Start: 07-03-2020 End: 06-30-2022 take 1 tablet by mouth once daily furosemide (LASIX) 20 mg tablet TAKE 1 TABLET BY MOUTH EVERY DAY 30 tablet 2 07/06/2021 06/30/2022 Discontinued (Discontinued by Patient) Comment on above: TAKE 1 TABLET BY [facility] EVERY DAY gadobutrol (GADAVIST) injection 8 mL (1 source) Start: 03-20-2022 End: 03-20-2022 gadobutrol (GADAVIST) injection 8 mL 1 ml HYDROmorphone hydrochloride 1 mg/ml cartridge (6 sources) Opioid Agonist Start: 03-20-2022 End: 03-20-2022 HYDROmorphone (DILAUDID) injection 1 mg Start: 03-17-2022 End: 03-18-2022 HYDROmorphone (DILAUDID) inj ection 0.5 mg Start: 03-17-2022 End: 03-17-2022 HYDROmorphone (DILAUDID) 1 M G/ML injection 10 ml lidocaine hydrochloride 10 mg/ml injection (1 source) Antiarrhythmic, Amide Local Anesthetic Start: 03-23-2022 End: 03-23-2022 lidocaine PF 1 % injection 3 ml liraglutide 6 mg/ml pen injector (20 sources) GLP-1 Receptor Agonist Start: 08-11-2021 End: 06-30-2022 liraglutide (SAXENDA) 3 mg/0.5 mL (18 mg/3 mL) pen injector Indications: Obesity (BMI 30.0-34.9) Inject 0.6 mg subcutaneously once daily. 3 mL 4 08/11/2021 06/30/2022 Discontinued (Discontinued by Patient) Comment on above: Inject 0.6 mg subcut aneously once daily. LORazepam 1 mg oral tablet (7 sources) Benzodiazepine Start: 01-19-2023 End: 02-05-2023 LORazepam (ATIVAN) 1 mg tablet Indications: Thunderclap headache Take 1 tablet an hour before MRI, if needed take 1 tab before the procedure 2 tablet 01/19/2023 02/05/2023 Start: 03-20-2022 End: 03-20-2022 LORazepam (ATIVAN) tablet 0. 5 mg Comment on above: Take 1 tablet an alex r before MRI, if needed take 1 tab before the procedure 50 ml magnesium sulfate 40 mg/ml injection (2 sources) Start: End: magnesium sulfate IVPB premix 1,000 mg meclizine hydrochloride 25 mg oral tablet (4 sources) Antiemetic Start: End: take 25 mg by mouth four times daily as needed Meclizine Discontinued 25 MG PO 4 TIMES DAILY NEEDED July 03, 2020 5:55pm September 09, 2020 4:23pm meloxicam 15 mg oral tablet (20 sources) Nonsteroidal Anti-inflammatory Drug Start: End: take 1 tablet by mouth once daily at mealtime meloxicam (MOBIC) 15 mg tablet Take 1 tablet by mouth once daily. With food. 30 tablet 06/02/2021 06/30/2022 Discontinued (Discontinued by Patient) Comment on above: Take 1 tablet by [facility] once daily. With food. metoclopramide 5 mg oral tablet (15 sources) Dopamine-2 Receptor Antagonist Start: End: metoclopramide HCl (REGLAN) 5 mg tablet Indications: Thunderclap headache Take 5-10mg for nausea with or without benadryl 25mg. 20 tablet 4 01/06/2023 03/15/2023 Discontinued Start: 12-16-2022 End: 12-16-2022 metoclopramide (Reglan) inje ction 10 mg Comment on above: Take 5-10mg for naus ea with or without benadryl 25mg. 2 ml midazolam 1 mg/ml injection (2 sources) Benzodiazepine Start: End: midazolam (VERSED) injection naproxen 500 mg oral tablet (2 sources) Nonsteroidal Anti-inflammatory Drug Start: End: take 1 tablet by mouth every twelve hours as needed naproxen (NAPROSYN) 500 mg tablet Take 1 tablet by mouth twice daily as needed (for pain/inflammation) . Take with food. 30 tablet 0 10/08/2022 10/25/2022 Discontinued Comment on above: Take 1 tablet by [facility] twice daily as needed (for pain/inflammation). Take with food. Drug Treatment Unknown - unknown (1 source) No information available. omeprazole 40 mg delayed release oral capsule (20 sources) Proton Pump Inhibitor Start: End: take 1 capsule by mouth once daily omeprazole (PRILOSEC) 40 mg capsule Take 1 capsule by mouth once daily. 30 capsule 2 12/30/2020 01/12/2022 Discontinued (Course of therapy completed) Comment on above: Take 1 capsule by [facility] once daily. pantoprazole 40 mg delayed release oral tablet (20 sources) Proton Pump Inhibitor Start: End: take 1 tablet by mouth once daily before breakfast pantoprazole DR (PROTONIX) 40 mg tablet Take 1 tablet by mouth daily before breakfast. Take on empty stomach, 1/2 hr before meal. 90 tablet 1 01/29/2022 06/30/2022 Discontinued (Discontinued by Patient) Comment on above: TAKE 1 TABLET BY [facility] DAILY BEFORE BREAKFAST. TAKE ON EMPTY STOMACH, 1/2 HR BEFORE MEAL. pantoprazole (PROTONIX) 80 mg in sodium chloride 0.9 % 50 mL bolus (1 source) Start: End: pantoprazole (PROTONIX) 80 mg in sodium chloride 0.9 % 50 mL bolus perflutren lipid microspheres 1.3 mL in NaCl (PF) 0.9% 10 mL injection (DEFINITY) (1 source) Start: End: perflutren lipid microspheres 1.3 mL in NaCl (PF) 0.9% 10 mL injection (DEFINITY) polyethylene glycol 3350 08629 mg powder for oral solution (1 source) Osmotic Laxative Start: 17 g, Oral, DAILY PRN, Starting on Bernarda 03/18/22 at 0206, Until Discontinued, Constipation First line therapy for constipation polyethylene glycol 3350 791688 mg / potassium chloride 2970 mg / sodium bicarbonate 6740 mg / sodium chloride 5860 mg / sodium sulfate 88292 mg powder for oral solution (12 sources) Osmotic Laxative Start: End: peg 3350-Electrolytes (GOLYTELY) 236-22.74-6.74 -5.86 gram suspension Indications: Diarrhea, unspecified type Refer to printed prep instructions from your provider. 4000 mL 0 01/12/2022 04/08/2022 Discontinued Comment on above: Refer to printed pre p instructions from your provider. microencapsulated potassium chloride 10 meq extended release oral tablet (20 sources) Start: 10 mEq, Oral, DAILY WITH BREAKFAST, First dose on 03/20/22 at 0800, Until Discontinued Do not crush or break. Start: 07-06-2021 End: 06-30-2022 take 1 tablet by mouth once daily at breakfast potassium chloride (K-TAB) 10 mEq tablet TAKE 1 TABLET BY MOUTH DAILY WITH BREAKFAST. TAKE WITH LASIX 30 tablet 2 07/06/2021 06/30/2022 Discontinued (Discontinued by Patient) Comment on above: TAKE 1 TABLET BY [facility] DAILY WITH BREAKFAST. TAKE WITH LASIX 2 ml prochlorperazine 5 mg/ml injection (2 sources) Phenothiazine Start: End: prochlorperazine (Compazine) injection 10 mg rivaroxaban 20 mg oral tablet (20 sources) Factor Xa Inhibitor Start: 017 End: take 1 tablet by mouth once daily XARELTO 20 MG TABS One tablet by mouth daily RIVAROXABAN [id number] Alyce Ovalles RN rizatriptan 10 mg oral tablet (20 sources) Serotonin-1b and Serotonin-1d Receptor Agonist Start: End: rizatriptan (MAXALT) 10 mg tablet Indications: Intractable paroxysmal hemicrania, unspecified chronicity pattern Take at onset of headache one pill, may repeat in 2 hours, not more than 2 pills a day 20 tablet 2 01/02/2021 12/28/2022 Discontinued Comment on above: Take at onset of hea dache one pill, may repeat in 2 hours, not more than 2 pills a day Take by mouth. 50 ml sodium chloride 9 mg/ml injection (7 sources) Start: End: sodium chloride 0.9 % bolus 1,000 mL Start: 03-18-2022 take 1 dose intraven ously twice daily 5-40 mL, IntraVENous, EVERY 12 HOURS SCHEDULED (2 times per day), First dose on Bernarda 03/18/22 at 0900, Until Discontinued For Line Patency: Peripheral IV = 5 mL; Midline or Central Line = 10 mL/lumen. If following IV push medication, administer flush at same rate as the IV push. Flush volume is determined by type of infusion therapy being given. For non-viscous solutions use: Peripheral IV = 5 mL Midline or Central Line = 10 mL/lumen For viscous solutions (i.e. blood components, parenteral nutrition, contrast media, or after obtaining blood sample) use: Peripheral IV = 10 mL Midline or Central Line = 20 mL/lumen Start: 03-18-2022 IntraVENous, a t 5-250 mL/hr, PRN, if patient receiving piggyback infusions and maintenance fluids are not ordered OR KVO fluids to protect IV site / prevent frequent line interruptions/ long duration, Starting on Bernarda 03/18/22 at 0206 For piggyback infusion, administer at same rate as piggyback for a total of 25 mL. Enter 25 mL into dose field and piggyback rate into rate field of order. If piggyback is infusing at a rate less than 100 mL/hr, enter 25 mL into dose field and 100 mL/hr into rate field of order. For KVO fluids, enter rate of 20 mL/hr or less into rate field of order. Start: 03-18-2022 take 5-40 mL intrave nously once as needed 5-40 mL, IntraVENous, PRN, Starting on Bernarda 03/18/22 at 0206, Until Discontinued, Line Care, After every IV line use For Line Patency: Peripheral IV = 5 mL; Midline or Central Line = 10 mL/lumen. If following IV push medication, administer flush at same rate as the IV push. Flush volume is determined by type of infusion therapy being given. For non-viscous solutions use: Peripheral IV = 5 mL Midline or Central Line = 10 mL/lumen For viscous solutions (i.e. blood components, parenteral nutrition, contrast media, or after obtaining blood sample) use: Peripheral IV = 10 mL Midline or Central Line = 20 mL/lumen Start: 03-17-2022 End: 03-17-2022 0.9 % sodium chloride bolus Start: 08-13-2020 End: 11-12-2021 sodium chloride 0.9 % (flush ) 10 mL (BD POSIFLUSH) tiZANidine 4 mg oral tablet (1 source) Central alpha-2 Adrenergic Agonist Start: 01-06-2023 take 1 tablet by mouth every eight hours as needed tiZANidine (ZANAFLEX) 4 mg tablet Indications: Thunderclap headache Take 1 tablet by mouth every 8 hours as needed. 30 tablet 4 01/06/2023 Active Comment on above: Take 1 tablet by viol[facility] th every 8 hours as needed. traZODone hydrochloride 50 mg oral tablet (20 sources) Serotonin Reuptake Inhibitor Start: 01-25-2022 End: 06-30-2022 take 1 tablet by mouth once daily at bedtime traZODone (DESYREL) 50 mg tablet Take 1 tablet by mouth daily at bedtime. 30 tablet 5 01/25/2022 06/30/2022 Discontinued (Discontinued by Patient) Comment on above: Take 1 tablet by viola th daily at bedtime. vancomycin 25 mg/ml oral solution (8 sources) Glycopeptide Antibacterial Start: 01-29-2022 End: 03-28-2022 take 5 mL by mouth four times daily, then take 5 mL by mouth twice daily, then take 5 mL by mouth once daily, then take 5 mL by mouth once vancomycin (VANCOCIN) 25 mg/mL liqd oral liquid Take 5 mL by mouth four times daily for 14 days, THEN 5 mL twice daily for 7 days, THEN 5 mL once daily for 7 days, THEN 5 mL every Tuesday and Tuesday. See instructions. 425 mL 0 01/29/2022 03/28/2022 Comment on above: Take 5 mL by mouth f our times daily for 14 days, THEN 5 mL twice daily for 7 days, THEN 5 mL once daily for 7 days, THEN 5 mL every Tuesday and Tuesday. See instructions. verapamil hydrochloride 120 mg extended release oral tablet (15 sources) Calcium Channel Esperanza Start: 01-14-2023 End: 04-18-2023 take 1 tablet by mouth once daily at bedtime verapamil SR (CALAN SR) 120 mg CR tablet Indications: Intractable migraine with aura without status migrainosus Take 1 tablet by mouth daily at bedtime. 30 tablet 4 01/14/2023 04/18/2023 Discontinued (Other) Comment on above: Take 1 tablet by [facility] th daily at bedtime. warfarin sodium 2 mg oral tablet (10 sources) Vitamin K Antagonist Start: 05-16-2017 COUMADIN 2 MG TABS 5 tablets by mouth tonight (05/16/17), 4 tablets by mouth tomorrow (05/17/10), then take 4 mg daily or as instructed WARFARIN SODIUM [id number] Thomas Monaco MD Start: 05-16-2017 take 2 tablets by mo [facility] once daily COUMADIN 2 MG TABS 5 tablets by mouth tonight (05/16/17), 4 tablets by mouth tomorrow (05/17/10), then take 4 mg daily or as instructed WARFARIN SODIUM [id number] Thomas Monaco MD Problems Active Problems Problem Classification Problem Date Documented Da te Episodic/Chronic Anxiety disorders (14 sources) Anxiety disorder; Translations: [Anxiety disorder, unspecified] Onset: 7 09-04-2017 Chronic Aortic and peripheral arterial embolism or thrombosis (10 sources) 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; Translations: [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] Onset: 7 05-16-2017 Chronic Calculus of urinary tract (1 source) Calculus of kidney; Translations: [Kidney stone] Onset: 9 Episodic Cardiac dysrhythmias (20 sources) Nonsustained ventricular tachycardia ; Translations: [Ventricular tachycardia] Onset: 0 08-04-2020 Chronic Cardiac dysrhythmias (4 sources) Palpitations; Translations: [Palpitations] 07-04-2020 Episodic Chronic obstructive pulmonary disease and bronchiectasis (1 source) Bronchitis; Translations: [Bronchitis, not specified as acute or chronic] 09-25-2024 Episodic Complications of surgical procedures or medical care (6 sources) Headache following lumbar puncture; Translations: [Other reaction to spinal and lumbar puncture] 12-19-2022 Episodic Conditions associated with dizziness or vertigo (6 sources) Dizziness; Translations: [Dizziness and giddiness] Onset: 5 07-04-2020 Episodic Coronary atherosclerosis and other heart disease (20 sources) Angina pectoris; Translations: [Other forms of angina pectoris] Onset: 6 Chronic Diseases of white blood cells (1 source) Leukocytosis; Translations: [Elevated white blood cell count, unspecified] 04-22-2023 Chronic Esophageal disorders (8 sources) Gastroesophageal reflux disease; Translations: [Gastro-esophageal reflux disease without esophagitis] Chronic Essential hypertension (20 sources) Hypertensive disorder; Translations: [Essential (primary) hypertension] 04-16-2020 Chronic Gastritis and duodenitis (4 sources) Gastritis; Translations: [Gastritis, unspecified, without bleeding] 11-10-2018 Episodic Gastrointestinal hemorrhage (6 sources) Hematochezia; Translations: [Melena] Episodic Headache; including migraine (20 sources) Refractory migraine with aura; Translations: [Migraine with aura, intractable, without status migrainosus] Onset: 3 Chronic Headache; including migraine (1 source) Headache; including migraine Onset: 3 Heart valve disorders (10 sources) Nonrheumatic mitral (valve) insufficiency; Translations: [Nonrheumatic mitral (valve) insufficiency] Onset: 7 05-16-2017 Chronic Immunizations and screening for infectious disease (1 source) Contact with and (suspected) exposure to other viral communicable diseases; Translations: [Contact with or exposure to other viral diseases] 12-11-2024 Episodic Intestinal infection (1 source) Viral gastroenteritis; Translations: [Viral intestinal infection, unspecified] 01-08-2025 Episodic Malaise and fatigue (20 sources) Fatigue; Translations: [Chronic fatigue, unspecified] Onset: 6 05-03-2016 Chronic Miscellaneous mental health disorders (5 sources) Primary insomnia; Translations: [Primary insomnia] Onset: 8 06-29-2018 Chronic Mood disorders (10 sources) Severe recurrent major depression without psychotic features; Translations: [Major depressive disorder, recurrent severe without psychotic features] Onset: 7 09-04-2017 Chronic Nausea and vomiting (6 sources) Nausea and vomiting; Translations: [Nausea with vomiting, unspecified] Episodic Noninfectious gastroenteritis (4 sources) Gastroenteritis; Translations: [Noninfective gastroenteritis and colitis, unspecified] 12-29-2021 Episodic Nonmalignant breast conditions (2 sources) Breasts asymmetrical; Translations: [Other specified disorders of breast] Episodic Nonspecific chest pain (20 sources) Chest pain; Translations: [Other chest pain] Onset: 6 05-16-2017 Episodic Nutritional deficiencies (20 sources) Vitamin D deficiency; Translations: [Vitamin D deficiency, unspecified] Onset: 6 05-03-2016 Chronic Nutritional deficiencies (3 sources) Cobalamin deficiency; Translations: [Deficiency of other specified B group vitamins] Episodic Other aftercare (1 source) Post-discharge follow-up; Translations: [Encounter for follow-up examination after completed treatment for conditions other than malignant neoplasm] Episodic Other connective tissue disease (1 source) Mass of soft tissue; Translations: [Other specified soft tissue disorders] Episodic Other connective tissue disease (2 sources) Pain in finger of left hand; Translations: [Pain in left finger(s)] Episodic Other connective tissue disease (1 source) Muscle weakness; Translations: [Muscle weakness (generalized)] 08-12-2021 Episodic Other ear and sense organ disorders (1 source) Tinnitus of vascular origin; Translations: [Pulsatile tinnitus, unspecified ear] 04-18-2023 Episodic Other gastrointestinal disorders (6 sources) Diarrhea; Translations: [Diarrhea, unspecified] Episodic Other gastrointestinal disorders (1 source) Abdominal bloating; Translations: [Abdominal distension (gaseous)] Episodic Other gastrointestinal disorders (1 source) History of gastroesophageal reflux disease; Translations: [Personal history of other diseases of the digestive system] Episodic Other hematologic conditions (1 source) Red blood cell finding; Translations: [Other abnormality of red blood cells] 04-18-2023 Episodic Other injuries and conditions due to external causes (1 source) Injury of left knee; Translations: [Unspecified injury of left lower leg, initial encounter] Episodic Other liver diseases (1 source) Liver mass; Translations: [Hepatomegaly, not elsewhere classified] Episodic Other liver diseases (1 source) Elevated liver enzymes level; Translations: [Abnormal levels of other serum enzymes] 04-18-2023 Episodic Other lower respiratory disease (3 sources) Cough; Translations: [Acute cough] 09-25-2024 Episodic Other nervous system disorders (20 sources) Carpal tunnel syndrome of right wrist; Translations: [Carpal tunnel syndrome, right upper limb] Onset: 6 07-26-2016 Chronic Other nervous system disorders (1 source) Impaired cognition; Translations: [Other symptoms and signs involving cognitive functions and awareness] Episodic Other nutritional; endocrine; and metabolic disorders (20 sources) Obese class I; Translations: [Obesity, unspecified] Onset: 9 11-04-2018 Chronic Other screening for suspected conditions (not mental disorders or infectious disease) (9 sources) Patient encounter status; Translations: [Encounter for screening mammogram for malignant neoplasm of breast] Episodic Other skin disorders (1 source) Disorder of sweat gland; Translations: [Eccrine sweat disorder, unspecified] 04-03-2025 Episodic Other skin disorders (1 source) Hirsutism; Translations: [Hirsutism] 04-03-2025 Episodic Other upper respiratory infections (3 sources) Acute sinusitis; Translations: [Acute sinusitis, unspecified] Onset: 5 Episodic Residual codes; unclassified (4 sources) Tobacco use and exposure - finding; Translations: [Tobacco use] 09-09-2020 Episodic Residual codes; unclassified (1 source) Chill; Translations: [Chills (without fever)] Episodic Residual codes; unclassified (1 source) Other general symptoms and signs; Translations: [Flu-like symptoms] Onset: 5 Episodic Substance-related disorders (20 sources) Nicotine dependence; Translations: [Nicotine dependence, unspecified, uncomplicated] Onset: 3 12-26-2022 Chronic Unclassified (1 source) Acute cough; Translations: [Acute cough] Onset: 4 Viral infection (5 sources) Disease caused by 2019-nCoV; Translations: [COVID-19] Episodic Past or Other Problems Problem Classification Problem Date Documented Da te Episodic/Chronic Abdominal pain (20 sources) Intractable abdominal pain; Translations: [Unspecified abdominal pain] Onset: 04-24-2014 Resolved: 09-28-2016 10-27-2019 Episodic Crushing injury or internal injury (11 sources) Unspecified injury of other specified blood vessels at shoulder and upper arm level, unspecified arm, initial encounter; Translations: [Unspecified injury of other specified blood vessels at shoulder and upper arm level, unspecified arm, initial encounter] Onset: 05-16-2017 05-16-2017 Episodic Fever of unknown origin (17 sources) Fever; Translations: [Fever, unspecified] Onset: 05-22-2014 Resolved: 09-28-2016 09-28-2016 Episodic Headache; including migraine (20 sources) Acute headache; Translations: [Acute intractable headache] Onset: 12-23-2022 12-22-2022 Episodic Mycoses (17 sources) Candidiasis of mouth; Translations: [Candidal stomatitis] Onset: 05-30-2014 Resolved: 09-28-2016 09-28-2016 Episodic Other and unspecified benign neoplasm (20 sources) Adenoma of liver; Translations: [Benign neoplasm of liver] Onset: 12-21-2018 12-21-2018 Episodic Other connective tissue disease (20 sources) Ganglion cyst of right dorsal wrist; Translations: [Ganglion, right wrist] Onset: 04-22-2016 04-22-2016 Episodic Other connective tissue disease (20 sources) Weakness of right arm; Translations: [Other symptoms and signs involving the musculoskeletal system] Onset: 05-03-2016 05-03-2016 Episodic Other connective tissue disease (20 sources) Trigger thumb of right hand; Translations: [Trigger thumb, right thumb] Onset: 07-26-2016 07-26-2016 Episodic Other connective tissue disease (20 sources) Other symptoms and signs involving the musculoskeletal system; Translations: [Other musculoskeletal symptoms referable to limbs] Onset: 05-03-2016 05-03-2016 Episodic Other connective tissue disease (1 source) Other specified soft tissue disorders; Translations: [Soft tissue mass] Onset: 07-05-2022 Episodic Other gastrointestinal disorders (6 sources) Right upper quadrant abdominal mass; Translations: [Right upper quadrant abdominal swelling, mass and lump] Onset: 03-17-2022 Episodic Other nervous system disorders (20 sources) Postoperative pain ; Translations: [Other acute postprocedural pain] Onset: 11-02-2018 11-02-2018 Episodic Other non-traumatic joint disorders (17 sources) Arthralgia of the pelvic region and thigh; Translations: [Pain in unspecified hip] Onset: 01-20-2008 Resolved: 09-28-2016 09-28-2016 Episodic Residual codes; unclassified (20 sources) Insomnia; Translations: [Insomnia, unspecified] Onset: 07-31-2014 05-03-2016 Episodic Residual codes; unclassified (20 sources) Tobacco user; Translations: [Tobacco use] Onset: 05-03-2016 05-03-2016 Episodic Residual codes; unclassified (5 sources) FH: Depression; Translations: [Family history of other mental and behavioral disorders] Onset: 09-04-2017 09-04-2017 Episodic Unclassified (1 source) Patient encounter status 02-12-2025 Results Test Name Value Interpretation Reference Range Facility [facility] 04-03-2025 CNOV Office Visit (INTMWS ) JOAN FOLEY ([id number]) 1980 F Date Time Provider Department 04/03/25 4:40 PM CAROLE MOORE INTKAMALJIT During your visit today, we recorded the following information about you: Pulse Respiration Blood pressure Weight 90/minute 16/minute 122/68 65.3 kg Carole Moore APRN.CNP 04/03/2025 5:10 PM Signed CC: Patient presents with: Headache: Discuss migraines HPI Joan Foley is a 45 year old female who presents today for annual exam and to discuss migraines. Recording using indico software for draft documentation of the visit was discussed with the patient/authorized sales representative consultant; all questions welcomed and answered. Patient/authorized sales representative consultant agreed to proceed Migraines: - Experiencing migraines at least once a week. - Able to manage most episodes with Ubrelvy, but at least once a month, migraines are refractory to treatment. - Recent severe episodes causing emesis and syncope, leading to hospitalization back in November - Gradual increase in frequency and severity over the past year. - Identifies stress and weather changes as triggers. - Noted correlation between migraines and work-related stress with a specific provider. Denies head injuries. - Experiences atypical auras, including nausea and hot spots on the skin. - Associated symptoms include photophobia, phonophobia, and dizziness. - Has seen neurology in the past but has not tried any preventative treatments. PVCs: - History of frequent PVCs, especially with dehydration. - No recent changes or increase in symptoms. - Attempting to schedule a follow-up with cardiology. - denies chest pain, edema, or dyspnea. Has noticed increase in sweating and hot flashes that she thinks may be associated to perimenopause. Is on spironolactone for hirsutism as ordered by dermatology. History of hysterectomy and has 1 ovary. REVIEW OF SYSTEMS General: no fevers, no chills, no night sweats, no recurrent infections, no change in appetite, no change in energy, and no significant changes in weight Respiratory: no cough, no wheezing, no shortness of breath, no hemoptysis Cardiovascular: no chest pain, no chest pressure, and no swelling GI: No nausea, vomiting, or diarrhea : No history of dysuria, frequency or incontinence Endocrine: no weight gain, no weight loss, no polyuria, no polyphagia, and no polydipsia Neurologic: No headache, weakness, numbness, tingling,dizziness, memory loss, syncope. PAST MEDICAL HISTORY Diagnosis Date Abdominal pain Anemia Dyspepsia Endometriosis Fatty liver Hypertension IBS (irritable bowel syndrome) Liver mass Post-cholecystectomy syndrome Renal disorder MASS DISCOVERED 12/2018 RUQ pain 06/10/14 Vitamin D deficiency PAST SURGICAL HISTORY Procedure Laterality Date COLONOSCOPY 03/15/2022 COLONOSCOPY W/BIOPSY 2013 CYST/MOLE REMOVAL Bilateral Left wrist, right hand EGD 03/15/2022 EGD DILATION ENDOSCOPY PROC 2014 bxs LAPS SURG CHOLECYSTECTOMY W/CHOLANGIOGRAPHY 04/24/2014 Normal [facility] LIVER SURGERY HX 10/2018 ABLATION FOR MASS PAST SURGICAL HISTORY OF appendectomy PAST SURGICAL HISTORY OF dental procedures PAST SURGICAL HISTORY OF diagnostic laparoscopy PAST SURGICAL HISTORY OF Carpal tunnel release, right PAST SURGICAL HISTORY OF as a child removed a piece of lead from skull PAST SURGICAL HISTORY OF 06/2023 Left arthroscopic knee surgery TOTAL ABDOMINAL HYSTERECT W/WO RMVL TUBE OVARY 2004 Hysterectomy, AMANDA ALLERGIES Penicillins, Chantix [Varenicline], Contrast Dye [Iodine], Demerol [Meperidine (Pf)], Latex, Morphine, and Propoxyphene MEDICATIONS semaglutide 0.25 mg/0.5 mL (0.5 mg/mL) subcutaneous compounded injection Inject 0.25 mg subcutaneously one time a week. ubrogepant (UBRELVY) 100 mg tablet Take 1 tablet by mouth as needed (severe headache.). Repeat in 2 hours if needed. ondansetron orally disintegrating (ZOFRAN ODT) 4 mg disintegrating tablet Take 1 tab every 8 hours as needed for nausea propranolol (INDERAL) 20 mg tablet Take 1 tablet by mouth two times a day. spironolactone (ALDACTONE) 100 mg tablet TAKE 1 TABLET BY MOUTH ONCE DAILY BEFORE BEDTIME WITH A FULL GLASS OF WATER ibuprofen (MOTRIN) 800 mg tablet Take 1 tablet by mouth every 8 hours as needed for pain. Take with food. FAMILY HISTORY Adopted: Yes Problem Relation Age of Onset other (adopted) Other Social History Tobacco Use Smoking status: Every Day Current packs/day: 0.50 Average packs/day: 0.5 packs/day for 11.0 years (5.5 ttl pk-yrs) Types: Cigarettes Smokeless tobacco: Never Tobacco comments: quit in Nov 2020 Vaping Use Vaping status: Never Used Substance Use Topics Alcohol use: Yes Comment: occ Drug use: No PHYSICAL EXAM BP 122/68 Pulse 90 Resp 16 Wt 65.3 kg (144 lb) SpO2 99% BMI 24.72 kg/m? General Ap (more content not included)... Normal [facility] CNOVon 12-11-2024 CNOV Office Visit ([facility] ) JOAN FOLEY ([id number]) 1980 F Date Time Provider Department 12/11/24 5:00 PM LINDSAY CROCKETT [facility]WSTR During your visit today, we recorded the following information about you: Temperature Pulse Respiration Blood pressure 98.6 degrees 100/minute 18/minute 122/80 Weight 71.4 kg Lindsay Crockett APRN.CNP 12/11/2024 5:04 PM Signed This note was created using [employer]. Subjective Joan Foley is a 44 year old female. 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 No trading manager was used. Flu Like Symptoms This is a new problem. Episode onset: 2 days ago. The problem occurs constantly. The problem has been unchanged. Associated symptoms include chills, congestion, coughing, fatigue, headaches and nausea. Pertinent negatives include no abdominal pain, anorexia, arthralgias, change in bowel habit, diaphoresis, fever, numbness, rash, sore throat, swollen glands, urinary symptoms, vertigo, visual change, vomiting or weakness. Nothing aggravates the symptoms. She has tried nothing for the symptoms. The treatment provided no relief. PAST MEDICAL HISTORY Diagnosis Date Abdominal pain Anemia Dyspepsia Endometriosis Fatty liver Hypertension IBS (irritable bowel syndrome) Liver mass Post-cholecystectomy syndrome Renal disorder MASS DISCOVERED 12/2018 RUQ pain 06/10/14 Vitamin D deficiency PAST SURGICAL HISTORY Procedure Laterality Date COLONOSCOPY 03/15/2022 COLONOSCOPY W/BIOPSY 2014 CYST/MOLE REMOVAL Bilateral Left wrist, right hand EGD 03/15/2022 EGD DILATION ENDOSCOPY PROC 2013 bxs LAPS SURG CHOLECYSTECTOMY W/CHOLANGIOGRAPHY 04/24/2014 Normal [facility] LIVER SURGERY HX 10/2018 ABLATION FOR MASS PAST SURGICAL HISTORY OF appendectomy PAST SURGICAL HISTORY OF dental procedures PAST SURGICAL HISTORY OF diagnostic laparoscopy PAST SURGICAL HISTORY OF Carpal tunnel release, right PAST SURGICAL HISTORY OF as a child removed a piece of lead from skull PAST SURGICAL HISTORY OF 06/2023 Left arthroscopic knee surgery TOTAL ABDOMINAL HYSTERECT W/WO RMVL TUBE OVARY 2004 Hysterectomy, AMANDA ALLERGIES Penicillins, Chantix [Varenicline], Contrast Dye [Iodine], Demerol [Meperidine (Pf)], Latex, Morphine, and Propoxyphene MEDICATIONS spironolactone (ALDACTONE) 100 mg tablet TAKE 1 TABLET BY MOUTH ONCE DAILY BEFORE BEDTIME WITH A FULL GLASS OF WATER benzonatate (TESSALON PERLE) 100 mg capsule Take 1 capsule by mouth three times a day as needed. albuterol HFA (VENTOLIN HFA) 90 mcg/actuation inhaler Inhale 2 Puffs as instructed every 4 hours as needed for wheezing/shortness of breath. benzonatate (TESSALON PERLE) 100 mg capsule Take 2 capsules by mouth three times a day as needed. ondansetron orally disintegrating (ZOFRAN ODT) 4 mg disintegrating tablet Take 1 tab every 8 hours as needed for nausea ubrogepant (UBRELVY) 100 mg tablet Take 1 tablet by mouth as needed (severe headache.). Repeat in 2 hours if needed. ibuprofen (MOTRIN) 800 mg tablet Take 1 tablet by mouth every 8 hours as needed for pain. Take with food. nebivolol (BYSTOLIC) 2.5 mg tablet Take 1 tablet by mouth once daily. OLANZapine (ZYPREXA) 10 mg tablet take 1/2 to 1 tablet by mouth at bedtime for 30 days gabapentin (NEURONTIN) 300 mg capsule Take 1 capsule by mouth three times daily. baclofen (LIORESAL) 5 mg tablet take 1 TO 2 tablet by mouth twice a day if needed for headache metoprolol tartrate, short acting, (LOPRESSOR) 25 mg tablet Take 1 tablet by mouth once daily. As directed FAMILY HISTORY Adopted: Yes Problem Relation Age of Onset other (adopted) Other Social History Tobacco Use Smoking status: Every Day Current packs/day: 0.50 Average packs/day: 0.5 packs/day for 11.0 years (5.5 ttl pk-yrs) Types: Cigarettes Smokeless tobacco: Never Tobacco comments: quit in Nov 2020 Vaping Use Vaping status: Never Used Substance Use Topics Alcohol use: Yes Comment: occ Drug use: No Review of Systems Constitutional: Positive for chills and fatigue. Negative for diaphoresis and fever. HENT: Positive for congestion. Negative for sore throat. Respiratory: Positive for cough. Gastrointestinal: Positive for nausea. Negative for abdominal pain, anorexia, change in bowel habit and vomiting. Musculoskeletal: Negative for arthralgias. Skin: Negative for rash. Neurological: Positive for headaches. Negati (more content not included)... Normal [facility] Basic Metabolic Profile (BMP )on 11-28-2024 BUN/CRE 15.8 RATIO Normal 10-20 [facility] Comment on above: Performed By: #### L 100.0100, L501.5200, L500.2500 ####[facility] [id number] [place], [address] CA,Total 9.3 mg/dL Normal 8.5-10.1 [facility] Comment on above: Performed By: #### L 100.0100, L501.5200, L500.2500 ####[facility] [id number] [place], [address] Chloride [Moles/Vol] 106 mmol/L Normal 98-107 [facility] Comment on above: Performed By: #### L 100.0100, L501.5200, L500.2500 ####[facility] [id number] [place], [address] CO2 [Moles/Vol] 27.0 mmol/L Normal 21.0-32.0 [facility] Comment on above: Performed By: #### L 100.0100, L501.5200, L500.2500 ####[facility] [id number] [place], [address] Creatinine [Mass/Vol] 0.76 mg/dL Normal 0.55-1.02 [facility] Comment on above: Result Comment: The validity of the calculated GFR GFRAA in patients over 70 years has not been determined. Clinical correlation is essential. Performed By: #### L 100.0100, L501.5200, L500.2500 ####[facility] [id number] [place], [address] ECRCL 92.85 ml/min Normal [facility] Comment on above: Performed By: #### L 100.0100, L501.5200, L500.2500 ####[facility] [id number] [place], [address] EST GFR - AA 106 mL/min Normal >60 [facility] Comment on above: Result Comment: Afri can Australian GFR Calc Performed By: #### L 100.0100, L501.5200, L500.2500 ####[facility] [id number] [place], [address] GAP 5 Normal 5-15 [facility] Comment on above: Performed By: #### L 100.0100, L501.5200, L500.2500 ####[facility] [id number] [place], [address] GFR/1.73 sq M.predicted among non-blacks MDRD (S/P/Bld) [Vol rate/Area] 88 mL/min/{1.73_m2} Normal >60 [facility] Comment on above: Result Comment: Non- GFR Calc Performed By: #### L 100.0100, L501.5200, L500.2500 ####[facility] [id number] [place], [address] Glucose [Mass/Vol] 101 mg/dL Normal 74-106 [facility] Comment on above: Result Comment: Fast ing Glucose result from 100 to 125 mg/dL suggests IMPAIRED HOMEOSTASIS per A.D.A. criteria. Performed By: #### L 100.0100, L501.5200, L500.2500 ####[facility] [id number] [place], [address] Potassium [Moles/Vol] 4.1 mmol/L Normal 3.5-5.1 [facility] Comment on above: Performed By: #### L 100.0100, L501.5200, L500.2500 ####[facility] [id number] [place], [address] Sodium [Moles/Vol] 137 mmol/L Normal 136-145 [facility] Comment on above: Performed By: #### L 100.0100, L501.5200, L500.2500 ####[facility] [id number] [place], [address] Urea nitrogen [Mass/Vol] 12 mg/dL Normal 7-18 [facility] Comment on above: Performed By: #### L 100.0100, L501.5200, L500.2500 ####[facility] [id number] [place], [address] CBC W/Diff, Automatedon 11-10 Absolute Lymph 2.86 X10 3/uL Normal 0.83-4.51 [facility] Comment on above: Performed By: #### L 100.0100, L501.5200, L500.2500 #### [facility] [address] [place], [address] Absolute Neut 4.4 X10 3/uL Normal 2.0-7.7 [facility] Comment on above: Performed By: #### L 100.0100, L501.5200, L500.2500 #### [facility] [address] [place], [address] Basophils/100 WBC (Bld) 0.8 % Normal 0-1 [facility] Comment on above: Performed By: #### L 100.0100, L501.5200, L500.2500 #### [facility] [address] [place], [address] Eosinophils/100 WBC (Bld) 3.5 % Normal 0-5 [facility] Comment on above: Performed By: #### L 100.0100, L501.5200, L500.2500 #### [facility] [address] [place], [address] Erythrocyte distribution width (RBC) [Ratio] 11.9 % Normal 11.6-14.6 [facility] Comment on above: Performed By: #### L 100.0100, L501.5200, L500.2500 #### [facility] [address] [facility] [place], [address] Hematocrit (Bld) [Volume fraction] 44.7 % Normal 37-47 [facility] Comment on above: Performed By: #### L 100.0100, L501.5200, L500.2500 #### [facility] [address] [facility] [place], [address] Hemoglobin (Bld) [Mass/Vol] 15.1 g/dL High 12.0-15.0 [facility] Comment on above: Performed By: #### L 100.0100, L501.5200, L500.2500 #### [facility] [address] [facility] [place], [address] IG% 1.800 High 0.0-0.9 [facility] Comment on above: Result Comment: IG% - Immature Granulocytes (promyelocytes, myelocytes and metamyelocytes) > 1% indicates that a LEFT SHIFT is Present. Performed By: #### L 100.0100, L501.5200, L500.2500 #### [facility] [address] [place], [address] Lymphocytes/100 WBC (Bld) 34.5 % Normal 19-41 [facility] Comment on above: Performed By: #### L 100.0100, L501.5200, L500.2500 #### [facility] [address] [place], [address] MCH (RBC) [Entitic mass] 33.0 pg High 27.0-32.0 [facility] Comment on above: Performed By: #### L 100.0100, L501.5200, L500.2500 #### [facility] [address] [place], [address] MCHC (RBC) [Mass/Vol] 33.8 g/dL Normal 32-36 [facility] Comment on above: Performed By: #### L 100.0100, L501.5200, L500.2500 #### [facility] [address] [place], [address] MCV (RBC) [Entitic vol] 97.6 fL Normal 81-99 [facility] Comment on above: Performed By: #### L 100.0100, L501.5200, L500.2500 #### [facility] [address] [place], [address] Monocytes/100 WBC (Bld) 6.4 % Normal 0-10 [facility] Comment on above: Performed By: #### L 100.0100, L501.5200, L500.2500 #### [facility] [address] [place], [address] Neutrophils/100 WBC (Bld) 53.0 % Normal 47-70 [facility] Comment on above: Performed By: #### L 100.0100, L501.5200, L500.2500 #### [facility] [address] [place], [address] Nucleated RBC (Bld) [#/Vol] 0 10*3/uL Normal 0-5 [facility] Comment on above: Performed By: #### L 100.0100, L501.5200, L500.2500 #### [facility] [address] [place], [address] Platelet mean volume (Bld) [Entitic vol] 10.6 fL Normal 6.2-12.0 [facility] Comment on above: Performed By: #### L 100.0100, L501.5200, L500.2500 #### [facility] [address] [place], [address] Platelets (Bld) [#/Vol] 228 10*3/uL Normal 150-450 [facility] Comment on above: Performed By: #### L 100.0100, L501.5200, L500.2500 #### [facility] [address] [place], [address] RBC (Bld) [#/Vol] 4.58 10*6/uL Normal 4.2-5.4 [facility] Comment on above: Performed By: #### L 100.0100, L501.5200, L500.2500 #### [facility] [address] [place], [address] RDW SD 43.1 fl Normal 35.1-43.9 [facility] Comment on above: Performed By: #### L 100.0100, L501.5200, L500.2500 #### [facility] [address] [place], [address] WBC (Bld) [#/Vol] 8.3 10*3/uL Normal 4.4-11.0 [facility] Comment on above: Performed By: #### L 100.0100, L501.5200, L500.2500 #### [facility] [address] [place], [address] Emergency Department Summary on 11-28-2024 Emergency Department Summary [facility] Medical Records Department [address] [place] [address] Emergency Department Summary 11/28/24 MR#: [id number] Acct: [id number] Name: JOAN FOLEY Rep #: [id number] : 1980 44 From: Antoine Conner DO PCP: Dr. Nicky Knight MD Status:REG ER Location: ED HPI History of Present Illness Chief Complaint: Dizziness Informant: patient Narrative Narrative: Patient is a 44-year-old female with past medical history of migraine on Ubrelvy as well as SVT and hypertension. She states that she developed a migraine yesterday that feels similar nature to her previous. She states this morning she took her dog out and after coming in felt dizzy which she described as a sense of motion. However after 30 seconds to a minute that sensation was now lightheadedness/near syncopal so she laid down in the kitchen floor and had resolution of symptoms. She then stood up and walked to the bathroom and got the shower started and then had a similar event where she once again started with dizziness described as motion then lowered self to the floor because of near syncope. Secondary to the event happening twice this morning she presents for evaluation. 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 She states she is unsure if she may have picked up an infection which is led to her headache and further symptoms and therefore comes in for evaluation [facility] Medical History Migraines Hypertension NSVT (nonsustained ventricular tachycardia) IBS (irritable bowel syndrome) Essential hypertension Anxiety and depression Obesity (BMI 30.0-34.9) Tobacco use GERD (gastroesophageal reflux disease) Hepatic adenoma RUQ pain Abnormal stress test Chest pain Partial obstruction of small intestine Abdominal pain Home Medications ???Medication ???Instructions ???Recorded ???Last Taken ???Type ergocalciferol (vitamin D2) 1,250 50,000 unit PO MO supplement 06/1111/03/20 History mcg (50,000 unit) capsule furosemide 20 mg tablet 20 mg PO DAILY PRN PRN Swelling Unknown History rizatriptan 10 mg tablet 10 mg PO .X1 PRN PRN migraines Unknown History ondansetron 4 mg disintegrating 4 mg PO Q8H PRN nausea and 1 Unknown Rx tablet vomiting #10 tabs diltiazem HCl 120 mg 120 mg PO DAILY 05/25/21 Unknown H istory capsule,extended release 24 hr bupropion HCl 150 mg 24 hr tablet, 150 mg PO DAILY 12/20/21 Unknown History extended release hydroxyzine HCl 25 mg tablet 25 mg PO QHS 12/20/21 Unknown Hist ory losartan 50 mg tablet 50 mg PO DAILY 12/20/21 Unknown Hi story diphenhydramine HCl 25 mg capsule 25 mg PO Q8H PRN allergic reactio n 10/06/22 Unknown Rx (Benadryl) #12 caps epinephrine 0.3 mg/0.3 mL 0.3 mg (0.3 mL) IM Q4H PRN 2 Unknown Rx injection, auto-injector (EpiPen anaphylaxis #2 ea 2-Laverne) famotidine 20 mg tablet (Pepcid) 20 mg PO BID #4 tabs 10/06/22 Unkn own Rx prednisone 50 mg tablet 50 mg PO DAILY #2 tabs 10/06/22 Un known Rx butalbital-acetaminophe n-caffeine 1 cap PO Q8H PRN pain 3 days #7 0 12/19/22 Unknown Rx 50 mg-300 mg-40 mg capsule caps (Fioricet) oxycodone-acetaminophen 5 mg-325 1 tab PO Q8H PRN pain 3 days #10 0 04/25/23 Unknown Rx mg tablet (Percocet) tabs diazepam 5 mg tablet (Valium) 5 mg PO TID PRN vertigo 7 days #21 11/28/24 Unknown Rx tabs omeprazole 20 mg capsule,delayed 20 mg PO DAILY 11/28/24 Unknown Hi story release ondansetron 4 mg disintegrating 4 mg PO TID PRN nausea and 5 Unknown Rx tablet vomiting #21 tabs semaglutide 0.25 mg or 0.5 mg (2 0.25 mg subcut QWEEK 11/28/24 Unkn own History mg/3 mL) subcutaneous pen injector (Ozempic) Allergy/AdvReac Type Severity Reaction Status Date / Time latex Allergy Mild IRRIATION, Verified 11/28/24 06:18 OR IF SHE INGEST SHE VOMITS. Iodine and Iodide Containing Allergy Anaphylaxis Verified 11/28/24 06:18 Produc morphine Allergy Itching Verified 11/28/24 06:18 Penicillins Allergy Anaphylaxis Verified 11/28/24 06:18 meperidine (From Demerol) AdvReac Nausea Verified 11/28/24 06:18 propoxyphene (From AdvReac Nausea Verified 11/28/24 06:18 Darvocet-N) varenicline (From Chantix) AdvReac Turns me Verified 11/28/24 06:18 into a crazy person Family History no significant family his Surgical History History of carpal tunnel release History of surgery of liver Status post appendectomy Status post hysterectomy Status post cholecystectomy Social History household members: spouse and children Smoking Status: Current every day smoker tobacco type: c (more content not included)... Normal [facility] M100.678on 11-28-2024 M100.678 SARS-CoV-2 (COVID 19 ) Negative INFLUENZA A Negative INFLUENZA B Negative RSV PCR Negative Normal [facility] Comment on above: Performed By: #### M 100.678 #### [facility] [address] [place], [address] Magnesiumon 11-28-2024 Magnesium [Mass/Vol] 2.1 mg/dL Normal 1.6-2.6 [facility] Comment on above: Performed By: #### L 100.0100, L501.5200, L500.2500 ####[facility] [id number] [place], [place], [address] CNCOon 10-31-2024 CNCO Letter Text [facility] CNOVon 09-25-2024 CNOV Office Visit ([facility] ) JOAN FOLEY ([id number]) 1980 F Date Time Provider Department 09/25/24 1:30 PM PERRY BALLARD WSTR During your visit today, we recorded the following information about you: Temperature Pulse Respiration Blood pressure 98.6 degrees 96/minute 18/minute 112/76 Weight 71.5 kg Perry Ballard, RICHARD 09/25/2024 3:05 PM Signed This note was created using [employer]. Subjective Joan Foley is a 44 year old female. HPI Presents with a chief complaint of cough, headache, fatigue nausea over the past month. She did take a Z-Laverne a couple of weeks ago possible walking pneumonia. Did not have a chest x-ray at that time. She thought she was feeling a little better with that but cough never really completely went away. The past day seems to have worsened. No fever. She is a smoker. No history of asthma. Chest is sore with coughing. Review of Systems Constitutional: Positive for fatigue. Negative for fever. HENT: Positive for congestion. Negative for ear pain, sinus pressure and sinus pain. Respiratory: Positive for cough. Cardiovascular: Positive for chest pain (with cough). Gastrointestinal: Positive for diarrhea and nausea. Negative for vomiting. Genitourinary: Negative. Musculoskeletal: Negative. All other systems reviewed and are negative. PAST MEDICAL HISTORY Diagnosis Date Abdominal pain Anemia Dyspepsia Endometriosis Fatty liver Hypertension IBS (irritable bowel syndrome) Liver mass Post-cholecystectomy syndrome Renal disorder MASS DISCOVERED 12/2018 RUQ pain 06/10/14 Vitamin D deficiency Current Outpatient Medications Medication Sig Dispense Refill ubrogepant (UBRELVY) 100 mg tablet Take 1 tablet by mouth as needed (severe headache.). Repeat in 2 hours if needed. 16 tablet 4 ibuprofen (MOTRIN) 800 mg tablet Take 1 tablet by mouth every 8 hours as needed for pain. Take with food. 30 tablet 1 predniSONE (DELTASONE) 20 mg tablet Take 2 tablets by mouth once daily for 5 days. 10 tablet 0 albuterol HFA (VENTOLIN HFA) 90 mcg/actuation inhaler Inhale 2 Puffs as instructed every 4 hours as needed for wheezing/shortness of breath. 1 Each 0 benzonatate (TESSALON PERLE) 100 mg capsule Take 2 capsules by mouth three times a day as needed. 30 capsule 0 ondansetron orally disintegrating (ZOFRAN ODT) 4 mg disintegrating tablet Take 1 tab every 8 hours as needed for nausea 30 tablet 3 nebivolol (BYSTOLIC) 2.5 mg tablet Take 1 tablet by mouth once daily. 30 tablet 11 OLANZapine (ZYPREXA) 10 mg tablet take 1/2 to 1 tablet by mouth at bedtime for 30 days 30 tablet 0 gabapentin (NEURONTIN) 300 mg capsule Take 1 capsule by mouth three times daily. 90 capsule 5 baclofen (LIORESAL) 5 mg tablet take 1 TO 2 tablet by mouth twice a day if needed for headache 25 tablet 3 metoprolol tartrate, short acting, (LOPRESSOR) 25 mg tablet Take 1 tablet by mouth once daily. As directed 30 tablet 11 No current facility-administered medications for this visit. PAST SURGICAL HISTORY Procedure Laterality Date COLONOSCOPY 03/15/2022 COLONOSCOPY W/BIOPSY 2013 CYST/MOLE REMOVAL Bilateral Left wrist, right hand EGD 03/15/2022 EGD DILATION ENDOSCOPY PROC 2013 bxs LAPS SURG CHOLECYSTECTOMY W/CHOLANGIOGRAPHY 04/24/2014 Normal [facility] LIVER SURGERY HX 10/2018 ABLATION FOR MASS PAST SURGICAL HISTORY OF appendectomy PAST SURGICAL HISTORY OF dental procedures PAST SURGICAL HISTORY OF diagnostic laparoscopy PAST SURGICAL HISTORY OF Carpal tunnel release, right PAST SURGICAL HISTORY OF as a child removed a piece of lead from skull PAST SURGICAL HISTORY OF 06/2023 Left arthroscopic knee surgery TOTAL ABDOMINAL HYSTERECT W/WO RMVL TUBE OVARY 2004 Hysterectomy, AMANDA FAMILY HISTORY Adopted: Yes Problem Relation Age of Onset other (adopted) Other Social History Tobacco Use Smoking status: Every Day Current packs/day: 0.50 Average packs/day: 0.5 packs/day for 11.0 years (5.5 ttl pk-yrs) Types: Cigarettes Smokeless tobacco: Never Tobacco comments: quit in Nov 2020 Vaping Use Vaping status: Never Used Substance Use Topics Alcohol use: Yes Comment: occ Drug use: No Objective BP 112/76 Pulse 96 Temp 37 ?C (98.6 ?F) (Tympanic) Resp 18 Wt 71.5 kg (157 lb 10.1 oz) SpO2 98% BMI 27.06 kg/m? Physical Exam Vitals reviewed. Constitutional: Appearance: Normal appearance. HENT: Head: Normocephalic and atraumatic. Right Ear: Tympanic membrane, ear canal and external ear normal. Left Ear: Tympanic membrane, ear canal and external ear normal. Nose: Nose normal. Mouth/Throat: Mouth: Mucous membranes are moist. Pharynx: Oropharynx is clear. Cardiovascular: Rate and Rhythm: Normal rate and regular rhythm. Heart sounds: Normal heart sounds. Pulmonary: Effort: Pulmonary effort is normal. Breath sounds: Normal (more content not included)... Normal [facility] [place] XR CHEST 2V FRONTAL/LATon XR CHEST 2V FRONTAL/LAT * * *Final Repor t* * * DATE OF EXAM: Sep 25 2024 2:02PM WOX [id number] - XR CHEST 2V FRONTAL/LAT / PROCEDURE REASON: Acute cough * * * * Physician Interpretation * * * * EXAMINATION: CHEST RADIOGRAPH (2 VIEW FRONTAL and LATERAL) CLINICAL HISTORY: Acute cough MQ: XC2_6 EXAM DATE/TIME: 09/25/2024 2:02 PM COMPARISON: Chest x-ray dated 06/21/2016 RESULT: Lines, tubes, and devices: None. Lungs and pleura: No consolidation. No lung mass. No pleural effusion. No pneumothorax. Cardiomediastinal silhouette: Normal cardiomediastinal silhouette. Bones and soft tissues: Mild degenerative changes. IMPRESSION: No acute radiographic abnormality. Pharmacy Services Director: [facility] Transcribe Date/Time: Sep 25 2024 2:02P Dictated by : KELSIE CARDENAS MD This examination was interpreted and the report reviewed and electronically signed by: KELSIE CARDENAS MD on Sep 25 2024 2:03PM EST [id number] Normal [facility] XR Chest PA and Lateralon IMPRESSION: No acute radiographic abnormality. Pharmacy Services Director: [facility] Transcribe Date/Time: Sep 25 2024 2:02P Dictated by : KELSIE CARDENAS MD This examination was interpreted and the report reviewed and electronically signed by: KELSIE CARDENAS MD on Sep 25 2024 2:03PM EST DIVISION OF RADIOLOGY * * *Final Report* * * DATE OF EXAM: Sep 25 2024 2:02PM WOX [id number] - XR CHEST 2V FRONTAL/LAT / PROCEDURE REASON: Acute cough * * * * Physician Interpretation * * * * EXAMINATION: CHEST RADIOGRAPH (2 VIEW FRONTAL & LATERAL) CLINICAL HISTORY: Acute cough MQ: XC2_6 EXAM DATE/TIME: 09/25/2024 2:02 PM COMPARISON: Chest x-ray dated 06/21/2016 RESULT: Lines, tubes, and devices: None. Lungs and pleura: No consolidation. No lung mass. No pleural effusion. No pneumothorax. Cardiomediastinal silhouette: Normal cardiomediastinal silhouette. Bones and soft tissues: Mild degenerative changes. DIVISION OF RADIOLOGY Provider, Dani gill [place] - 09/25/2024 * * *Final Report* * * DATE OF EXAM: Sep 25 2024 2:02PM WOX [id number] - XR CHEST 2V FRONTAL/LAT / PROCEDURE REASON: Acute cough * * * * Physician Interpretation * * * * EXAMINATION: CHEST RADIOGRAPH (2 VIEW FRONTAL & LATERAL) CLINICAL HISTORY: Acute cough MQ: XC2_6 EXAM DATE/TIME: 09/25/2024 2:02 PM COMPARISON: Chest x-ray dated 06/21/2016 RESULT: Lines, tubes, and devices: None. Lungs and pleura: No consolidation. No lung mass. No pleural effusion. No pneumothorax. Cardiomediastinal silhouette: Normal cardiomediastinal silhouette. Bones and soft tissues: Mild degenerative changes. IMPRESSION IMPRESSION: No acute radiographic abnormality. Pharmacy Services Director: [facility] Transcribe Date/Time: Sep 25 2024 2:02P Dictated by : KELSIE CARDENAS MD This examination was interpreted and the report reviewed and electronically signed by: KELSIE CARDENAS MD on Sep 25 2024 2:03PM EST [facility] Radiology Study observation (narrative) Jessica Penny XR Chest PA and LateralOrder ed By: [facility] Provider on 09-25-2024 [facility] 12 Lead EKGon 04-14-2024 12 Lead EKG [facility] Cardiovascular Services [address] [place] [address] 12 Lead EKG 04/14/24 1619 MR#: [id number] Acct: [id number] Name: JOAN FOLEY Rep #: [id number] : 1980 44 From: Tian Rivera MD Attending Dr: Status: DEP ER Ordering Dr: Bertha Spaulding Date: 04/14/24 Location: ED Sex: F C Admitted: Test Reason : GENERAL Blood Pressure : / mmHG Vent. Rate : 102 BPM Atrial Rate : 102 BPM P-R Int : 126 ms QRS Dur : 068 ms QT Int : 314 ms P-R-T Axes : 041 056 067 degrees QTc Int : 409 ms Sinus tachycardia Otherwise normal ECG Confirmed by Tian Rivera ([id number]), science editor CLAIRELA NENA ([id number]) on 04/16/2024 1:45:07 PM Referred By: Confirmed By:Tian Rivera 04/16/24 1345 Date Tian Rivera MD CC: Dr. Romaine Dawkins MD; Dr. Nicky Knight MD; RASHIDA Welsh Signed Normal [facility] Abdomen/Pelvis without Conto n 04-14-2024 Abdomen/Pelvis without Cont [facility] Imaging Services [address] [place], [place] [address] Abdomen/Pelvis without Cont MR#: [id number] Acct: [id number] Name: JOAN FOLEY Rep #: [id number] : 1980 F 44 From: Ritesh Cortez MD PCP: Dr. Nicky Knight MD Status: REG ER Study: Abdomen/Pelvis without Cont Date of Exam: 04/02 Exam# [id number] Ordering Dr: Bertha Spaulding [id number] EXAM: CT ABDOMEN AND PELVIS WITHOUT INTRAVENOUS CONTRAST CLINICAL INDICATION: left flank pain TECHNIQUE: Helically acquired images were obtained of the abdomen and pelvis without intravenous contrast. This CT exam was performed using one or more of the following dose reduction techniques: automated exposure control, adjustment of the mA and/or kV according to patient size, and/or use of iterative reconstruction technique. COMPARISON: No relevant prior studies available. FINDINGS: LOWER THORAX: Unremarkable. Lung bases are clear. No cardiomegaly. No significant pericardial effusion. ABDOMEN: LIVER: The liver is diffusely decreased in attenuation compatible with fatty infiltration. GALLBLADDER AND BILE DUCTS: Gallbladder is nonvisualized and may be surgically absent. No intra- or extrahepatic biliary ductal dilation. PANCREAS: Unremarkable. No focal cystic mass. SPLEEN: Unremarkable. Normal size without focal cystic or solid mass. ADRENALS: Unremarkable. No nodules. KIDNEYS AND URETERS: Unremarkable. Normal renal size and position. No hydronephrosis. STOMACH AND BOWEL: Unremarkable. No stomach or bowel distention. No focal inflammatory change. PELVIS: APPENDIX: No evidence of acute appendicitis. BLADDER: Unremarkable. REPRODUCTIVE: Patient status post hysterectomy. ABDOMEN and PELVIS: INTRAPERITONEAL SPACE: Unremarkable. No ascites or other fluid collection. No free air. BONES/JOINTS: Unremarkable. No suspicious lytic or blastic abnormality. SOFT TISSUES: Unremarkable. No discrete abdominal or pelvic wall hernia. VASCULATURE: Unremarkable. Abdominal aorta is non-dilated. LYMPH NODES: Unremarkable. No enlarged lymph nodes. CT/Abdomen/Pelvis without Cont IMPRESSION: No acute findings in the abdomen or pelvis. Electronically Signed: Ritesh Cortez MD at 19:03 EDT , CC: Dr. Nicky Knight MD; RASHIDA Welsh Pharmacy Services Director: Signed Normal [facility] CBC W/Diff, Automatedon 07-0 -2023 Absolute Lymph 2.41 X10 3/uL Normal 0.83-4.51 [facility] Comment on above: Performed By: #### L 501.2450, L100.0100, L500.4050 ####[facility] [address] [place], [address] Absolute Neut 11.7 X10 3/uL High 2.0-7.7 [facility] Comment on above: Performed By: #### L 501.2450, L100.0100, L500.4050 ####[facility] [address] [place], [address] Basophils/100 WBC (Bld) 0.5 % Normal 0-1 [facility] Comment on above: Performed By: #### L 501.2450, L100.0100, L500.4050 ####[facility] [address] [place], [address] Eosinophils/100 WBC (Bld) 1.7 % Normal 0-5 [facility] Comment on above: Performed By: #### L 501.2450, L100.0100, L500.4050 ####[facility] [address] [place], [address] Erythrocyte distribution width (RBC) [Ratio] 12.0 % Normal 11.6-14.6 [facility] Comment on above: Performed By: #### L 501.2450, L100.0100, L500.4050 ####[facility] [address] [place], [address] Hematocrit (Bld) [Volume fraction] 42.1 % Normal 37-47 [facility] Comment on above: Performed By: #### L 501.2450, L100.0100, L500.4050 ####[facility] [address] [place], [address] Hemoglobin (Bld) [Mass/Vol] 14.3 g/dL Normal 12.0-15.0 [facility] Comment on above: Performed By: #### L 501.2450, L100.0100, L500.4050 ####[facility] [address] [place], [address] IG% 0.700 Normal 0.0-0.9 [facility] Comment on above: Result Comment: IG% - Immature Granulocytes (promyelocytes, myelocytes and metamyelocytes) > 1% indicates that a LEFT SHIFT is Present. Performed By: #### L 501.2450, L100.0100, L500.4050 ####[facility] [address] [place], [address] Lymphocytes/100 WBC (Bld) 15.9 % Low 19-41 [facility] Comment on above: Performed By: #### L 501.2450, L100.0100, L500.4050 ####[facility] [address] [place], [address] MCH (RBC) [Entitic mass] 33.4 pg High 27.0-32.0 [facility] Comment on above: Performed By: #### L 501.2450, L100.0100, L500.4050 ####[facility] [address] [place], [address] MCHC (RBC) [Mass/Vol] 34.0 g/dL Normal 32-36 [facility] Comment on above: Performed By: #### L 501.2450, L100.0100, L500.4050 ####[facility] [address] [place], [address] MCV (RBC) [Entitic vol] 98.4 fL Normal 81-99 [facility] Comment on above: Performed By: #### L 501.2450, L100.0100, L500.4050 ####[facility] [address] [place], [address] Monocytes/100 WBC (Bld) 4.5 % Normal 0-10 [facility] Comment on above: Performed By: #### L 501.2450, L100.0100, L500.4050 ####[facility] [address] [place], [address] Neutrophils/100 WBC (Bld) 76.7 % High 47-70 [facility] Comment on above: Performed By: #### L 501.2450, L100.0100, L500.4050 ####[facility] [address] [place], [address] Nucleated RBC (Bld) [#/Vol] 0 10*3/uL Normal 0-5 [facility] Comment on above: Performed By: #### L 501.2450, L100.0100, L500.4050 ####[facility] [address] [place], [address] Platelet mean volume (Bld) [Entitic vol] 9.9 fL Normal 6.2-12.0 [facility] Comment on above: Performed By: #### L 501.2450, L100.0100, L500.4050 ####[facility] [address] [place], [address] Platelets (Bld) [#/Vol] 262 10*3/uL Normal 150-450 [facility] Comment on above: Performed By: #### L 501.2450, L100.0100, L500.4050 ####[facility] [address] [place], [address] RBC (Bld) [#/Vol] 4.28 10*6/uL Normal 4.2-5.4 [facility] Comment on above: Performed By: #### L 501.2450, L100.0100, L500.4050 ####[facility] [address] [place], [address] RDW SD 43.9 fl Normal 35.1-43.9 [facility] Comment on above: Performed By: #### L 501.2450, L100.0100, L500.4050 ####[facility] [address] [place], [address] WBC (Bld) [#/Vol] 15.2 10*3/uL High 4.4-11.0 [facility] Comment on above: Performed By: #### L 501.2450, L100.0100, L500.4050 ####[facility] [address] [place], [address] [facility] 04-14-2024 Albumin [Mass/Vol] 4.0 g/dL Normal 3.2-5.0 [facility] Comment on above: Performed By: #### L 501.2450, L100.0100, L500.4050 ####[facility] [address] [place], [address] Albumin/Globulin [Mass ratio] 1.2 {ratio} Normal 0.9-2.4 [facility] Comment on above: Performed By: #### L 501.2450, L100.0100, L500.4050 ####[facility] [address] [place], [address] ALK P 58 U/L Normal 45-117 [facility] Comment on above: Performed By: #### L 501.2450, L100.0100, L500.4050 ####[facility] [address] [place], [address] ALT [Catalytic activity/Vol] 60 U/L High 13-56 [facility] Comment on above: Performed By: #### L 501.2450, L100.0100, L500.4050 ####[facility] [address] [place], [address] AST [Catalytic activity/Vol] 30 U/L Normal 15-37 [facility] Comment on above: Performed By: #### L 501.2450, L100.0100, L500.4050 ####[facility] [address] [place], [address] Bilirubin [Mass/Vol] 0.30 mg/dL Normal 0.20-1.00 [facility] Comment on above: Result Comment: For patients on eltrombopag therapy, use of Dimension [place] TBIL is not recommended. Performed By: #### L 501.2450, L100.0100, L500.4050 ####[facility] [address] [place], [address] BUN/CRE 17.2 RATIO Normal 10-20 [facility] Comment on above: Performed By: #### L 501.2450, L100.0100, L500.4050 ####[facility] [address] [place], [address] CA,Total 9.3 mg/dL Normal 8.5-10.1 [facility] Comment on above: Performed By: #### L 501.2450, L100.0100, L500.4050 ####[facility] [address] [place], [address] Chloride [Moles/Vol] 104 mmol/L Normal 98-107 [facility] Comment on above: Performed By: #### L 501.2450, L100.0100, L500.4050 ####[facility] [address] [place], [address] CO2 [Moles/Vol] 25.0 mmol/L Normal 21.0-32.0 [facility] Comment on above: Performed By: #### L 501.2450, L100.0100, L500.4050 ####[facility] [address] [place], [address] Creatinine [Mass/Vol] 0.81 mg/dL Normal 0.55-1.02 [facility] Comment on above: Result Comment: The validity of the calculated GFR GFRAA in patients over 70 years has not been determined. Clinical correlation is essential. Performed By: #### L 501.2450, L100.0100, L500.4050 ####[facility] [address] [place], [address] ECRCL 88.13 ml/min Normal [facility] Comment on above: Performed By: #### L 501.2450, L100.0100, L500.4050 ####[facility] [address] [place], [address] EST GFR - AA 99 mL/min Normal >60 [facility] Comment on above: Result Comment: Afri can Australian GFR Calc Performed By: #### L 501.2450, L100.0100, L500.4050 ####[facility] [address] [place], [address] GAP 8 Normal 5-15 [facility] Comment on above: Performed By: #### L 501.2450, L100.0100, L500.4050 ####[facility] [address] [place], [address] GFR/1.73 sq M.predicted among non-blacks MDRD (S/P/Bld) [Vol rate/Area] 82 mL/min/{1.73_m2} Normal >60 [facility] Comment on above: Result Comment: Non- GFR Calc Performed By: #### L 501.2450, L100.0100, L500.4050 ####[facility] [address] [place], [address] Globulin (S) [Mass/Vol] 3.2 g/dL Normal 2.2-4.2 [facility] Comment on above: Performed By: #### L 501.2450, L100.0100, L500.4050 ####[facility] [address] [place], [address] Glucose [Mass/Vol] 82 mg/dL Normal 74-106 [facility] Comment on above: Performed By: #### L 501.2450, L100.0100, L500.4050 ####[facility] [address] [place], [address] Potassium [Moles/Vol] 4.1 mmol/L Normal 3.5-5.1 [facility] Comment on above: Performed By: #### L 501.2450, L100.0100, L500.4050 ####[facility] [address] [place], [address] Sodium [Moles/Vol] 137 mmol/L Normal 136-145 [facility] Comment on above: Performed By: #### L 501.2450, L100.0100, L500.4050 ####[facility] [address] [place], [address] T PROT 7.2 g/dL Normal 6.4-8.2 [facility] Comment on above: Performed By: #### L 501.2450, L100.0100, L500.4050 ####[facility] [address] [place], [address] Urea nitrogen [Mass/Vol] 14 mg/dL Normal 7-18 [facility] Comment on above: Performed By: #### L 501.2450, L100.0100, L500.4050 ####[facility] [address] [place], [address] D-Dimer Quantitative (DVT/PE )on 04-14-2024 D-DIMER QUANT < 0.27 Low 0.27-0.49 [facility] Comment on above: Result Comment: NORM AL D-Dimer level (<0.50) indicates no DVT or PE. Performed By: #### L 300.8000 #### [facility] Laboratory [address] [place], [address] Emergency Department Summary on 04-14-2024 Emergency Department Summary [facility] Medical Records Department [address] [place] [address] Emergency Department Summary 04/14/24 MR#: [id number] Acct: [id number] Name: JOAN FOLEY Rep #: [id number] : 1980 44 From: Romaine Dawkins MD PCP: Dr. Nicky Knight MD Status:REG ER Location: ED HPI History of Present Illness Chief Complaint: Flank Pain Narrative Narrative: 44-year-old female presents with sudden onset left upper quadrant abdominal pain that radiates to the left mid back that started at 1:30 PM while she was sitting watching television. Pain is sharp and feels better if she puts pressure on her abdomen. She has no fever or chills or nausea or vomiting. She states she ate a normal breakfast without pain. She has had normal bladder and bowel movements. She has history of kidney stone x 1 but states this feels different. PFSH PFSH Medical History Abdominal pain Abnormal stress test Anxiety and depression Chest pain Essential hypertension GERD (gastroesophageal reflux disease) Hepatic adenoma IBS (irritable bowel syndrome) NSVT (nonsustained ventricular tachycardia) Obesity (BMI 30.0-34.9) Partial obstruction of small intestine RUQ pain Tobacco use Home Medications ???Medication ???Instructions ???Recorded ???Last Taken ???Type ergocalciferol (vitamin D2) 1,250 50,000 unit PO MO supplement 07/03/20 11/03/20 History mcg (50,000 unit) capsule furosemide 20 mg tablet 20 mg PO DAILY PRN PRN Swelling 07/03/20 Unknown History rizatriptan 10 mg tablet 10 mg PO .X1 PRN PRN migraines 07/03/20 Unknown History ondansetron 4 mg disintegrating 4 mg PO Q8H PRN nausea and 05/21/21 Unknown Rx tablet vomiting #10 tabs diltiazem HCl 120 mg 120 mg PO DAILY 05/25/21 Unknown History capsule,extended release 24 hr bupropion HCl 150 mg 24 hr tablet, 150 mg PO DAILY 12/20/21 Unknown History extended release hydroxyzine HCl 25 mg tablet 25 mg PO QHS 12/20/21 Unknown History losartan 50 mg tablet 50 mg PO DAILY 12/20/21 Unknown History diphenhydramine HCl 25 mg capsule 25 mg PO Q8H PRN allergic reaction 10/06/22 Unknown Rx (Benadryl) #12 caps epinephrine 0.3 mg/0.3 mL 0.3 mg (0.3 mL) IM Q4H PRN 10/06/22 Unknown Rx injection, auto-injector (EpiPen anaphylaxis #2 ea 2-Laverne) famotidine 20 mg tablet (Pepcid) 20 mg PO BID #4 tabs 10/06/22 Unknown Rx prednisone 50 mg tablet 50 mg PO DAILY #2 tabs 10/06/22 Unknown Rx butalbital-acetaminophe n-caffeine 1 cap PO Q8H PRN pain 3 days #7 12/19/22 Unknown Rx 50 mg-300 mg-40 mg capsule caps (Fioricet) oxycodone-acetaminophen 5 mg-325 1 tab PO Q8H PRN pain 3 days #10 04/25/23 Unknown Rx mg tablet (Percocet) tabs Allergy/AdvReac Type Severity Reaction Status Date / Time latex Allergy Mild IRRIATION, Verified 04/14/24 16:00 OR IF SHE INGEST SHE VOMITS. Iodine and Iodide Containing Allergy Anaphylaxis Verified 04/14/24 16:00 Produc morphine Allergy Itching Verified 04/14/24 16:00 Penicillins Allergy Anaphylaxis Verified 04/14/24 16:00 meperidine (From Demerol) AdvReac Nausea Verified 04/14/24 16:00 propoxyphene (From AdvReac Nausea Verified 04/14/24 16:00 Darvocet-N) varenicline (From Chantix) AdvReac Turns me Verified 04/14/24 16:00 into a crazy person Surgical History History of carpal tunnel release History of surgery of liver Status post appendectomy Status post cholecystectomy Status post hysterectomy Social History household members: spouse and children Smoking Status: Former smoker alcohol intake: current details: occasional substance use type: does not use ROS ROS ED ROS Narrative Constitutional: Negative for fever, chills, malaise. CVS: Negative for chest pain, syncope. Respiratory: Negative for shortness of breath, cough. GI: Positive for abdominal pain. Negative for nausea, vomiting, diarrhea, constipation, melena, hematochezia. : Negative for dysuria, hematuria or frequency. EXAM Physical Exam Narrative Exam Narrative: CONST: Patient sitting in bed appears uncomfortable. EYES: Normal inspection. NECK: Normal inspection. RESP: No respiratory distress, CTAB. CVS: Regular rate and rhythm, no murmur, no gallop. ABD: Soft and nontender, no guarding or rebound, nondistended, no hepatosplenomegaly. Back: Normal inspection, no CVA tenderness. SKIN: Color normal, no rash, warm, dry, intact. EXTREMITIES: Normal appearance, no pedal edema. NEURO: Alert and answering questions appropriately. PSYCH: Normal affect. Const Vital Signs: 04/14/24 16:00 04/14/24 18:00 04/14/24 20:00 Temperature 97.6 F L Temperature Source Temporal Pulse Rate 108 H 91 85 Respiratory (more content not included)... Normal [facility] L501.4020on 04-14-2024 TROPONIN-I HS < 3 Low 3.0-54.0 [facility] Comment on above: Order Comment: 'TROP ' Serial specimen #1, #2 or #3: 1 Result Comment: Plea se Note: New Test Units and Gender Specific Reference Ranges. For more information see Policy Stat Procedure [place] High Sensitivity Troponin (TNIH) and attachments. Performed By: #### L 501.4020 #### [facility] [address] [place], [address] Lipaseon 04-14-2024 Lipase [Catalytic activity/Vol] 40 U/L Normal 13-75 [facility] Comment on above: Result Comment: Plea se note: LIPASE revised reference range effective 23. New Lipase methodology. Expected to produce lower values than the previous assay method. NEW Reference Range: 13 - 75 U/L Performed By: #### L 501.2450, L100.0100, L500.4050 ####[facility] [address] [place], [address] ,Urineon 04-14-2024 Beta HCG ( test) Ql (U) Negative Normal [facility] Comment on above: Order Comment: COLLE CTOR TO SPECIFY Result Comment: Very dilute urine specimens, as indicated by a low specific gravity, may not contain sales representative consultant levels of hCG. If is still suspected, a first morning urine specimen should be collected 48 hours later and tested. Performed By: #### L 400.0001, L400.7600 #### [facility] [address] [place], [address] Urinalysis, Completeon 04-14 EPI,SQUAMOUS 0-5 SEEN Normal 5-10 [facility] Comment on above: Order Comment: COLLE CTOR TO SPECIFY Performed By: #### L 400.0001, L400.7600 #### [facility] [address] [place], [address] BACTERIA 0 SEEN Normal None Seen [facility] Comment on above: Order Comment: [facility] CTOR TO SPECIFY Performed By: #### L 400.0001, L400.7600 #### [facility] [address] [place], [address] Mucus Ql (Urine sed) 0 SEEN Normal [facility] Comment on above: Order Comment: COLLE CTOR TO SPECIFY Performed By: #### L 400.0001, L400.7600 #### [facility] [address] [place], [address] RBC 0 SEEN Normal 0-5 [facility] Comment on above: Order Comment: [facility] CTOR TO SPECIFY Performed By: #### L 400.0001, L400.7600 #### [facility] [address] [place], [address] WBC 0 SEEN Normal 0-5 [facility] Comment on above: Order Comment: [facility] CTOR TO SPECIFY Performed By: #### L 400.0001, L400.7600 #### [facility] [address] [place], [address] CT HEAD WO IV CONTRASTon CT HEAD WO IV CONTRAST Patient Name: JOAN EM : 1980 Exam Date/Time: 12/16/2022 10:00 Procedure: CT HEAD WO IV CONTRAST Ordering Provider: PHAM TYLER Reason For Exam: Headache, chronic, new features or increased frequency --------ADDENDUM #1 -------- Dose reduction was employed with automated exposure control. Report Dictated on Electronically Signed By: Jose Sarabia MD Electronically Signed Date/Time: 06/10/2023 8:05 AM EDT --------ORIGINAL REPORT -------- CT HEAD WITHOUT CONTRAST CLINICAL HISTORY: Headache, chronic, new features or increased frequency COMPARISON: None TECHNIQUE: Helical CT of the brain without contrast. FINDINGS: Acute Findings: No hemorrhage, mass, or infarct. Chronic Changes: None identified. Ventricles and sulci: Within normal limits for age. Other: The skull, included paranasal sinuses and orbits are normal. IMPRESSION: Normal head CT. Report Dictated on Electronically Signed By: Jose Sarabia Electronically Signed Date/Time: 12/16/2022 10:07 AM EST Patient Name: JOAN FOLEY : 1980 [facility]#: [id number] Exam Date/Time: 12/16/2022 10:00 Procedure: CT HEAD WO IV CONTRAST Ordering Provider: PHAM TYLER Reason For Exam: Headache, chronic, new features or increased frequency CT HEAD WITHOUT CONTRAST CLINICAL HISTORY: Headache, chronic, new features or increased frequency COMPARISON: None TECHNIQUE: Helical CT of the brain without contrast. FINDINGS: Acute Findings: No hemorrhage, mass, or infarct. Chronic Changes: None identified. Ventricles and sulci: Within normal limits for age. Other: The skull, included paranasal sinuses and orbits are normal. IMPRESSION: Normal head CT. Report Dictated on Electronically Signed By: Jose Sarabia Electronically Signed Date/Time: 12/16/2022 10:07 AM EST headache since yesterday. Patient reports nausea and dizziness Normal [facility] Absolute lymphocyte countOrd ered By: Sakshi Giovana on 04-25-2023 Lymphocytes Auto (Unsp spec) [#/Vol] 2.36 10*3/uL 0.83-4.51 [facility] Basophil percentageOrdered B y: Sakshi Akhtar on 04-25-2023 Basophils/100 WBC (Bld) 0.8 % 0-1 [facility] Chloride [Moles/Vol] 104 mmol/L 98-[facility] Eosin[facility] WBC (Bld) 2.9 % 0-5 [facility] Glucose [Mass/Vol] 93 mg/dL 74-106 [facility] Neutrophils (Bld) [#/Vol] 8.4 10*3/uL 2.0-7.7 [facility] Neutrophils/100 WBC (Bld) 68.6 % 47-70 [facility] Potassium [Moles/Vol] 3.9 mmol/L 3.5-5.1 [facility] Sodium [Moles/Vol] 135 mmol/L 136-145 [facility] WBC (Bld) [#/Vol] 12.2 10*3/uL 4.4-11.0 [facility] Blood erythrocytes count (nu mber/volume)Ordered By: Sakshi Akhtar on 04-25-2023 RBC (Bld) [#/Vol] 3.96 10*6/uL 4.2-5.4 [facility] Blood hemoglobin measurement (mass/volume)Ordered By: Sakshi Akhtar on 04-25-2023 Hemoglobin (Bld) [Mass/Vol] 13.2 g/dL 12.0-15.0 [facility] Blood lymphocytes/100 leukoc ytesOrdered By: Sakshi Akhtar on 04-25-2023 Lymphocytes/100 WBC (Bld) 19.3 % 19-41 [facility] Blood monocytes/100 leukocyt esOrdered By: Sakshi Akhtar on 04-25-2023 Monocytes/100 WBC (Bld) 6.8 % 0-10 [facility] Blood platelet mean volumeOr dered By: Sakshi Akhtar on 04-25-2023 Platelet mean volume (Bld) [Entitic vol] 10.7 fL 6.2-12.0 [facility] Determination of erythrocyte mean corpuscular volume (MCV)Ordered By: Sakshi Akhtar on 04-25-2023 MCV (RBC) [Entitic vol] 100.8 fL 81-99 [facility] Hematocrit Auto (Bld) [Volum e fraction]Ordered By: Sakshi Akhtar on 04-25-2023 Hematocrit (Bld) [Volume fraction] 39.9 % 37-47 [facility] Laboratory - Chemistry and C hemistry - challengeOrdered By: Sakshi Akhtar on 04-25-2023 CO2 [Moles/Vol] 25.0 mmol/L 21.0-32.0 [facility] Urea nitrogen/Creatinine [Mass ratio] 21.0 mg/mg 10-20 [facility] Laboratory - Hematology and Cell countsOrdered By: Sakshi Akhtar on 04-25-2023 Erythrocyte distribution width (RBC) [Entitic vol] 45.5 fL 35.1-43.9 [facility] Erythrocyte distribution width (RBC) [Ratio] 12.2 % 11.6-14.6 [facility] Immature granulocytes/100 WBC (Bld) 1.600 % 0.0-0.9 [facility] Comment on above: IG% - Immature Granu locytes (promyelocytes, myelocytes and metamyelocytes) > 1% indicates that a LEFT SHIFT is Present. MCH (RBC) [Entitic mass] 33.3 pg 27.0-32.0 [facility] Nucleated RBC/100 WBC (Bld) [Ratio] 0 % 0-5 [facility] MCHC Auto (RBC) [Mass/Vol]Or dered By: Sakshi Akhtar on 04-25-2023 MCHC (RBC) [Mass/Vol] 33.1 g/dL 32-36 [facility] No Panel InformationOrdered By: Sakshi Akhtar on 04-25-2023 D-Dimer Quantitative (PE/DVT) < 0.27 FEU/ug/m 0.27-0.49 [facility] Comment on above: NORMAL D-Dimer level (<0.50) indicates no DVT or PE. Estimated Creatinine Clearance Calc 78.13 ml/min [facility] Estimated GFR (MDRD) Amer 100 mL/min >60 [facility] Comment on above: GFR Calc Estimated GFR (MDRD) Non-Af Amer 83 mL/min >60 [facility] Comment on above: Non- GFR Calc Troponin I High Sensitivity < 3 pg/mL 3.0-54.0 [facility] Comment on above: Please Note: New Geri t Units and Gender Specific Reference Ranges. For more information see Policy Stat Procedure [place] High Sensitivity Troponin (TNIH) and attachments. Platelets bldOrdered By: Blessing Akhtar on 04-25-2023 Platelets (Bld) [#/Vol] 225 10*3/uL 150-450 [facility] Serum or plasma calcium osiris urement (mass/volume)Ordered By: Sakshi Akhtar on 04-25-2023 Calcium [Mass/Vol] 9.5 mg/dL 8.5-10.1 [facility] Serum or plasma creatinine m easurement (mass/volume)Ordered By: Sakshi Akhtar on 04-25-2023 Creatinine [Mass/Vol] 0.81 mg/dL 0.55-1.02 [facility] Comment on above: The validity of the calculated GFR & GFRAA in patients over 70 years has not been determined. Clinical correlation is essential. Serum or plasma urea nitroge n measurement (mass/volume)Ordered By: Sakshi Akhtar on 04-25-2023 Urea nitrogen [Mass/Vol] 17 mg/dL -18 [facility] Thin prep Papanicolaou smear with manual screeningOrdered By: Sakshi Akhtar on 04-25-2023 Thin prep Papanicolaou smear with manual screening 6 02-21 [facility] XR KNEE GENERAL 4V AP BOTH/P A BOTH/LAT/MERC LEFTon 04-11-2023 [facility] XR Knee - left 4 Viewson IMPRESSION: Small loose body in the region of the left tibial spines may be related to mild degenerative changes though sequela of acute injury with tiny chip fracture not entirely excluded. [facility] Transcribe Date/Time: Apr 11 2023 12:28P Dictated by : KELSIE CARDENAS MD This examination was interpreted and the report reviewed and electronically signed by: KELSIE CARDENAS MD on Apr 11 2023 12:31PM [facility] DIVISION OF RADIOLOGY * * *Final Report* * * DATE OF EXAM: Apr 11 2023 12:26PM WOX [id number] - XR KNEE 4V AP/PA BOTH+LAT/SYL LT / PROCEDURE REASON: Injury of left knee, initial encounter * * * * Physician Interpretation * * * * TITLE: XR KNEE 4V AP/PA BOTH+LAT/SYL LT CLINICAL INDICATION: Knee injury TECHNIQUE: AP/PA/merchant radiographs of both knees and lateral radiograph of the left knee COMPARISON: Radiograph dated May 26, 2014 FINDINGS: Left knee: Small suprapatellar joint effusion. No acute fracture or dislocation. Mild medial compartmental joint space narrowing. Small loose body in the region of the tibial spines. Right knee: No acute fracture or dislocation. Mild medial compartmental joint space narrowing. DIVISION OF RADIOLOGY Provider, [facility] Artemio [facility] - 04/11/2023 * * *Final Report* * * DATE OF EXAM: Apr 11 2023 12:26PM WOX [id number] - XR KNEE 4V AP/PA BOTH+LAT/SYL LT / PROCEDURE REASON: Injury of left knee, initial encounter * * * * Physician Interpretation * * * * TITLE: XR KNEE 4V AP/PA BOTH+LAT/SYL LT CLINICAL INDICATION: Knee injury TECHNIQUE: AP/PA/merchant radiographs of both knees and lateral radiograph of the left knee COMPARISON: Radiograph dated May 26, 2014 FINDINGS: Left knee: Small suprapatellar joint effusion. No acute fracture or dislocation. Mild medial compartmental joint space narrowing. Small loose body in the region of the tibial spines. Right knee: No acute fracture or dislocation. Mild medial compartmental joint space narrowing. IMPRESSION IMPRESSION: Small loose body in the region of the left tibial spines may be related to mild degenerative changes though sequela of acute injury with tiny chip fracture not entirely excluded. Pharmacy Services Director: [facility] Transcribe Date/Time: Apr 11 2023 12:28P Dictated by : KELSIE CARDENAS MD This examination was interpreted and the report reviewed and electronically signed by: KELSIE CARDENAS MD on Apr 11 2023 12:31PM EST [facility] Radiology Study observation (narrative) Jessica alcaraz [facility] XR Knee - left 4 ViewsOrdere d By: [facility] Provider on 04-11-2023 [facility] ALMA DIAG W EVELIN RIGHTon 06-2 [facility] ALMA SCREENINGon 02-10-2023 [facility] MR Brain WO and W contrast I Von 01-31-2023 IMPRESSION: Unremarkable MRI examination of brain without and with intravenous contrast. There is resolution of scattered susceptibility in extra-axial CSF spaces consistent with resolution of gas introduced during a lumbar puncture. There is mild to moderate inflammatory changes in the paranasal sinuses most notably in the maxillary sinuses with bubbly secretions suggesting acute on chronic sinusitis representing substantial worsening from 12/23/2022. Transcribe Date/Time: Jan 31 2023 7:44A Dictated by: ROSITA GUTIERRES MD This examination was interpreted and the report reviewed and electronically signed by: ROSITA GUTIERRES MD on Jan 31 2023 8:06AM EST Thank you for allowing us to participate in the care of your patient. Should there be any questions regarding this interpretation, please call [phone]. If you are unable to reach us at the number above, please feel free to contact [facility] eRadiology at [phone]. DIVISION OF RADIOLOGY * * *Final Report* * * DATE OF EXAM: Jan 28 2023 12:35PM [facility] 0295 - MRI BRAIN WWO CONTRAST / PROCEDURE REASON: INTRACTABLE HEADACHE, THUNDERCLAP HEADACHE * * * * Physician Interpretation * * * * RESULT: EXAMINATION: MRI BRAIN WWO CONTRAST HISTORY: INTRACTABLE HEADACHE, THUNDERCLAP HEADACHE Patient went to the ED for headaches 12/22/2022 treated medically and had lumbar puncture. Patient treated with blood patch x2 for worsening headaches. MRI brain only positive for scattered small foci of subarachnoid and ventricular susceptibility likely reflecting air from recent lumbar puncture. Patient had greater occipital nerve injections 01/07/2023 for persistent headaches. Please evaluate for vasospasm. TECHNIQUE: Routine brain MRI protocol without and with contrast including diffusion and susceptibility weighted images. MQ: MRBWOW_2 Contrast: 17 mL Dotarem intravenous COMPARISON: CT brain 12/22/2022 and MRI brain 12/23/2022 RESULT: Acute Change: There is no evidence of restricted diffusion to suggest an acute infarct. Hemorrhage: No evidence of prior parenchymal hemorrhage on gradient echo imaging. There is resolution of previously demonstrated scattered small foci of subarachnoid and ventricular susceptibility consistent with resolution of air from prior lumbar puncture. Mass Lesion/ Mass Effect: No evidence of an intracranial mass or extra-axial fluid collection. No abnormal parenchymal or leptomeningeal enhancement is noted following contrast administration. No significant mass effect. Chronic Change: The white matter is within normal limits of signal intensity for age. Parenchyma: No significant volume loss for age. The brain parenchyma is otherwise within normal limits of signal intensity and morphology. Ventricles: Normal caliber and morphology. Skull Base: Hypothalamic and pituitary region are grossly normal. Craniocervical junction is normal. No significant marrow replacement process. Vasculature: Major intracranial arterial structures, and dural venous sinuses show typical flow void, suggesting patency by spin echo criteria. Other: There is moderate polypoid mucosal thickening in the maxillary sinuses and mild to moderate mucosal thickening in ethmoid air cells with worsening. Additionally there appear to be bubbly secretions in the maxillary sinuses which may represent superimposed acute sinusitis. There is trace fluid in left mastoid air cells similar to that seen previously. Right mastoid air cells are grossly clear. The orbits and extracranial soft tissues are unremarkable. DIVISION OF RADIOLOGY Provider, Dani Ulloa Sasha - 01/31/2023 * * *Final Report* * * DATE OF EXAM: Jan 28 2023 12:35PM [facility] 0295 - MRI BRAIN WWO CONTRAST / PROCEDURE REASON: INTRACTABLE HEADACHE, THUNDERCLAP HEADACHE * * * * Physician Interpretation * * * * RESULT: EXAMINATION: MRI BRAIN WWO CONTRAST HISTORY: INTRACTABLE HEADACHE, THUNDERCLAP HEADACHE Patient went to the ED for headaches 12/22/2022 treated medically and had lumbar puncture. Patient treated with blood patch x2 for worsening headaches. MRI brain only positive for scattered small foci of subarachnoid and ventricular susceptibility likely reflecting air from recent lumbar puncture. Patient had greater occipital nerve injections 01/07/2023 for persistent headaches. Please evaluate for vasospasm. TECHNIQUE: Routine brain MRI protocol without and with contrast including diffusion and susceptibility weighted images. MQ: MRBWOW_2 Contrast: 17 mL Dotarem intravenous COMPARISON: CT brain 12/22/2022 and MRI brain 12/23/2022 RESULT: Acute Change: There is no evidence of restricted diffusion to suggest an acute infarct. Hemorrhage: No evidence of prior parenchymal hemorrhage on gradient echo imaging. There is resolution of previously demonstrated scattered small foci of subarachnoid and ventricular susceptibility consistent with resolution of air from prior lumbar puncture. Mass Lesion/ Mass Effect: No evidence of an intracranial mass or extra-axial fluid collection. No abnormal parenchymal or leptomeningeal enhancement is noted following contrast administration. No significant mass effect. Chronic Change: The white matter is within normal limits of signal intensity for age. Parenchyma: No significant volume loss for age. The brain parenchyma is otherwise within normal limits of signal intensity and morphology. Ventricles: Normal caliber and morphology. Skull Base: Hypothalamic and pituitary region are grossly normal. Craniocervical junction is normal. No significant marrow replacement process. Vasculature: Major intracranial arterial structures, and dural venous sinuses show typical flow void, suggesting patency by spin echo criteria. Other: There is moderate polypoid mucosal thickening in the maxillary sinuses and mild to moderate mucosal thickening in ethmoid air cells with worsening. Additionally there appear to be bubbly secretions in the maxillary sinuses which may represent superimposed acute sinusitis. There is trace fluid in left mastoid air cells similar to that seen previously. Right mastoid air cells are grossly clear. The orbits and extracranial soft tissues are unremarkable. IMPRESSION IMPRESSION: Unremarkable MRI examination of brain without and with intravenous contrast. There is resolution of scattered susceptibility in extra-axial CSF spaces consistent with resolution of gas introduced during a lumbar puncture. There is mild to moderate inflammatory changes in the paranasal sinuses most notably in the maxillary sinuses with bubbly secretions suggesting acute on chronic sinusitis representing substantial worsening from 12/23/2022. Transcribe Date/Time: Jan 31 2023 7:44A Dictated by: ROSITA GUTIERRES MD This examination was interpreted and the report reviewed and electronically signed by: ROSITA GUTIERRES MD on Jan 31 2023 8:06AM EST Thank you for allowing us to participate in the care of your patient. Should there be any questions regarding this interpretation, please call [phone]. If you are unable to reach us at the number above, please feel free to contact [facility] eRadiology at [phone]. [facility] MRA Head vessels WO contrast on 01-31-2023 IMPRESSION: No substantial large vessel stenosis nor irregularity. No evidence for substantial vasospasm. origin to the right posterior cerebral artery as normal variation is again demonstrated. Transcribe Date/Time: Jan 31 2023 8:07A Dictated by: ROSITA GUTIERRES MD This examination was interpreted and the report reviewed and electronically signed by: ROSITA GUTIERRES MD on Jan 31 2023 8:11AM EST Thank you for allowing us to participate in the care of your patient. Should there be any questions regarding this interpretation, please call [phone]. If you are unable to reach us at the number above, please feel free to contact [facility] eRadiology at [phone]. DIVISION OF RADIOLOGY * * *Final Report* * * DATE OF EXAM: Jan 28 2023 12:14PM [facility] 0272 - MRA BRAIN WO IVCON / PROCEDURE REASON: INTRACTABLE HEADACHE, THUNDERCLAP HEADACHE * * * * Physician Interpretation * * * * RESULT: INTRACRANIAL MRA HISTORY: INTRACTABLE HEADACHE, THUNDERCLAP HEADACHE Patient went to the ED for headaches 12/22/2022 treated medically and had lumbar puncture. Patient treated with blood patch x2 for worsening headaches. MRI brain 316/2022 only positive for scattered small foci of subarachnoid and ventricular susceptibility likely reflecting air from recent lumbar puncture. Patient had greater occipital nerve injections 01/07/2023 for persistent headaches. Please evaluate for vasospasm. TECHNIQUE: 3-dimensional time of flight MRA with maximum intensity projections and source images utilized for interpretation. COMPARISON: Intracranial MRA 12/23/2022 RESULT: The right vertebral artery is dominant. The distal vertebral, basilar and internal carotid arteries are demonstrated without substantial stenosis nor irregularity to their termini. The left posterior cerebral artery is in origin with a hypoplastic right P1 segment. There is otherwise symmetric flow related enhancement in the anterior, middle and posterior cerebral arteries without significant stenosis or irregularity. The appearance is unchanged. No focal intracranial saccular aneurysm seen although aneurysms 3 mm or less may not be detected by MRA technique. No arteriovenous malformation demonstrated. DIVISION OF RADIOLOGY Provider, [facility] - 01/31/2023 * * *Final Report* * * DATE OF EXAM: Jan 28 2023 12:14PM [facility] 0272 - MRA BRAIN WO IVCON / PROCEDURE REASON: INTRACTABLE HEADACHE, THUNDERCLAP HEADACHE * * * * Physician Interpretation * * * * RESULT: INTRACRANIAL MRA HISTORY: INTRACTABLE HEADACHE, THUNDERCLAP HEADACHE Patient went to the ED for headaches 12/22/2022 treated medically and had lumbar puncture. Patient treated with blood patch x2 for worsening headaches. MRI brain 316/2022 only positive for scattered small foci of subarachnoid and ventricular susceptibility likely reflecting air from recent lumbar puncture. Patient had greater occipital nerve injections 01/07/2023 for persistent headaches. Please evaluate for vasospasm. TECHNIQUE: 3-dimensional time of flight MRA with maximum intensity projections and source images utilized for interpretation. COMPARISON: Intracranial MRA 12/23/2022 RESULT: The right vertebral artery is dominant. The distal vertebral, basilar and internal carotid arteries are demonstrated without substantial stenosis nor irregularity to their termini. The left posterior cerebral artery is in origin with a hypoplastic right P1 segment. There is otherwise symmetric flow related enhancement in the anterior, middle and posterior cerebral arteries without significant stenosis or irregularity. The appearance is unchanged. No focal intracranial saccular aneurysm seen although aneurysms 3 mm or less may not be detected by MRA technique. No arteriovenous malformation demonstrated. IMPRESSION IMPRESSION: No substantial large vessel stenosis nor irregularity. No evidence for substantial vasospasm. origin to the right posterior cerebral artery as normal variation is again demonstrated. Transcribe Date/Time: Jan 31 2023 8:07A Dictated by: ROSITA GUTIERRES MD This examination was interpreted and the report reviewed and electronically signed by: ROSITA GUTIERRES MD on Jan 31 2023 8:11AM EST Thank you for allowing us to participate in the care of your patient. Should there be any questions regarding this interpretation, please call [phone]. If you are unable to reach us at the number above, please feel free to contact [facility] eRadiology at [phone]. [facility] MRA Head vessels WO contrast Ordered By: [facility] Provider on 01-31-2023 [facility] No Panel Informationon 01-28 Radiology Study observation (narrative) [facility] Comprehensive metabolic 2000 panelon 12-24-2022 Albumin [Mass/Vol] 3.9 g/dL Normal 3.9-4.9 [facility] Comment on above: Order Comment: Specabdiel limon Type: BLOOD SPECIMEN Ordering Facility: [facility] Address: [address] [place] [address] Performed By: #### 2 4323-8 #### [facility] CLIA [id number] [address] [facility] ALP [Catalytic activity/Vol] 56 U/L Normal 34-123 [facility] Comment on above: Order Comment: James limon Type: BLOOD SPECIMEN Ordering Facility: [facility] Address: [address] [address] Performed By: #### 2 4323-8 #### [facility] CLIA [id number] [address] [facility] ALT With P-5'-P [Catalytic activity/Vol] 89 U/L High 7-38 [facility] Comment on above: Order Comment: James limon Type: BLOOD SPECIMEN Ordering Facility: [facility] Address: [address] [address] Performed By: #### 2 4323-8 #### [facility] CLIA [id number] [address] [place] Anion gap [Moles/Vol] 9 mmol/L Normal 9-18 [facility] Comment on above: Order Comment: Speci men Type: BLOOD SPECIMEN Ordering Facility: [facility] Address: [address] [place] [address] Performed By: #### 2 4323-8 #### [facility] CLIA [id number] [address] [place] AST With P-5'-P [Catalytic activity/Vol] 25 U/L Normal 13-35 [facility] Comment on above: Order Comment: Speci men Type: BLOOD SPECIMEN Ordering Facility: [facility] Address: [address] [place] [address] Performed By: #### 2 4323-8 #### [facility] CLIA [id number] [address] [place] Bilirubin [Mass/Vol] 0.3 mg/dL Normal 0.2-1.3 [facility] Comment on above: Order Comment: Speci men Type: BLOOD SPECIMEN Ordering Facility: [facility] Address: [address] [place] [address] Performed By: #### 2 4323-8 #### [facility] CLIA [id number] [address] [place] Calcium [Mass/Vol] 9.0 mg/dL Normal 8.5-10.2 [facility] Comment on above: Order Comment: Speci men Type: BLOOD SPECIMEN Ordering Facility: [facility] Address: [address] [place] [address] Performed By: #### 2 4323-8 #### [facility] CLIA [id number] [address] [place] Chloride [Moles/Vol] 106 mmol/L High 97-105 [facility] Comment on above: Order Comment: Speci men Type: BLOOD SPECIMEN Ordering Facility: [facility] Address: [address] [place] [address] Performed By: #### 2 4323-8 #### [facility] CLIA [id number] [address] CO2 [Moles/Vol] 20 mmol/L Low 22-30 [facility] Comment on above: Order Comment: Speci men Type: BLOOD SPECIMEN Ordering Facility: [facility] Address: [address] [place] [address] Performed By: #### 2 4323-8 #### [facility] CLIA [id number] [address] Creatinine [Mass/Vol] 0.62 mg/dL Normal 0.58-0.96 [facility] Comment on above: Order Comment: Speci men Type: BLOOD SPECIMEN Ordering Facility: [facility] Address: [address] [place] [address] Performed By: #### 2 4323-8 #### [facility] CLIA [id number] [address] ESTIMATED GLOMERULAR FILTRATION RATE 115 mL/min/1.73m??? Normal >=60 [facility] Comment on above: Order Comment: Speci men Type: BLOOD SPECIMEN Ordering Facility: [facility] Address: [address] [place] [address] Result Comment: Cece mated Glomerular Filtration Rate (eGFR) is calculated using the 2020 CKD-EPI creatinine equation. This equation utilizes serum creatinine, sex, and age as parameters. The creatinine assay has traceable calibration to isotope dilution-mass spectrometry. Refer to KDIGO guidelines for clinical interpretation. In patients with unstable renal function, e.g. those with acute kidney injury, the eGFR may not accurately reflect actual GFR. Performed By: #### 2 4323-8 #### [facility] CLIA [id number] [address] [facility] Glucose [Mass/Vol] 127 mg/dL High 74-99 [facility] Comment on above: Order Comment: Speci men Type: BLOOD SPECIMEN Ordering Facility: [facility] Address: [address] [address] Result Comment: The [place] Diabetes Association (ADA) provides guidance for cutoff values for fasting glucose and random glucose. The ADA defines fasting as no caloric intake for at least 8 hours. Fasting plasma glucose results between 100 to 125 mg/dL indicate increased risk for diabetes (prediabetes). Fasting plasma glucose results greater than or equal to 126 mg/dL meet the criteria for diagnosis of diabetes. In the absence of unequivocal hyperglycemia, results should be confirmed by repeat testing. In a patient with classic symptoms of hyperglycemia or hyperglycemic crisis, random plasma glucose results greater than or equal to 200 mg/dL meet the criteria for diagnosis of diabetes. Reference: Standards of Medical Care in Diabetes 2016, [place] Diabetes Association. Diabetes Care. 2016.39(Suppl 1). Performed By: #### 2 4323-8 #### [facility] CLIA [id number] 1 [place] [address] [place] Potassium [Moles/Vol] 4.5 mmol/L Normal 3.7-5.1 [facility] Comment on above: Order Comment: Speci men Type: BLOOD SPECIMEN Ordering Facility: [facility] Address: [address] [address] Performed By: #### 2 4323-8 #### [facility] CLIA [id number] [address] [place] [address] [place] Protein [Mass/Vol] 6.1 g/dL Low 6.3-8.0 [facility] Comment on above: Order Comment: Speci men Type: BLOOD SPECIMEN Ordering Facility: [facility] Address: [address] [address] Performed By: #### 2 4323-8 #### [facility] CLIA [id number] 1 [place] [address] [place] Sodium [Moles/Vol] 135 mmol/L Low 136-144 [facility] Comment on above: Order Comment: Speci men Type: BLOOD SPECIMEN Ordering Facility: [facility] Address: [address] [address] Performed By: #### 2 4323-8 #### [facility] CLIA [id number] [address] Urea nitrogen [Mass/Vol] 8 mg/dL Normal 7-21 [facility] Comment on above: Order Comment: Speci men Type: BLOOD SPECIMEN Ordering Facility: [facility] Address: [address] [place] [address] Performed By: #### 2 4323-8 #### [facility] CLIA [id number] [address] [place] [address] [place] ALLIED HEALTHon 12-23-2022 ALLIED HEALTH HNO ID: [id number] Author: RT James(R) Service: Radiology Author Type: Technologist Type: Allied Health Filed: 12/23/2022 5:43 PM Note Text: Radiology Service Progress Note PATIENT NAME: Joan Foley DATE OF SERVICE: December 23, 2022 TIME: 5:43 PM PATIENT IDENTITY VERIFICATION COMPLETED USING TWO (2) IDENTIFIERS: Name and Date of confirmed by patient verbally and Name and Date of confirmed by identification band. FALL SCREENING: Has the patient had 2 falls in the last year or 1 fall with injury or currently using an Ambulatory Assistive Device (Walker, Cane, Wheelchair, Crutches, etc.)? Inpatient: Screened on floor PATIENT GENDER DATA: Female. status: : No status: NO. PATIENT RELEVANT IMPLANT DATA REVIEWED: Yes RADIOLOGY DEPARTMENT: MR; Exam(s) Completed: Head: Routine Brain Alutiiq of Vides MRA Sagittal Sinus MRV PERIPHERAL IV DATA: Inpatient: see LDA documentation SIGNED BY: RT James(R) December 23, 2022 5:43 PM Normal [facility] CBC panel Auto (Bld)on 12-23 Erythrocyte distribution width (RBC) [Ratio] 12.1 % Normal 11.5-15.0 [facility] Comment on above: Order Comment: Speci men Type: BLOOD SPECIMEN Ordering Facility: [facility] Address: [address] [place] [address] Performed By: #### 5 8410-2 #### [facility] CLIA [id number] [address] [place] [address] Hematocrit (Bld) [Volume fraction] 38.7 % Normal 36.0-46.0 [facility] Comment on above: Order Comment: Speci men Type: BLOOD SPECIMEN Ordering Facility: [facility] Address: [address] [place] [address] Performed By: #### 5 8410-2 #### [facility] CLIA [id number] [address] [facility] Hemoglobin (Bld) [Mass/Vol] 12.5 g/dL Normal 11.5-15.5 [facility] Comment on above: Order Comment: Speci men Type: BLOOD SPECIMEN Ordering Facility: [facility] Address: [address] [place] [address] Performed By: #### 5 8410-2 #### [facility] CLIA [id number] [address] MCH (RBC) [Entitic mass] 32.2 pg Normal 26.0-34.0 [facility] Comment on above: Order Comment: Speci men Type: BLOOD SPECIMEN Ordering Facility: [facility] Address: [address] [place] [address] Performed By: #### 5 8410-2 #### [facility] CLIA [id number] [address] [facility] MCHC (RBC) [Mass/Vol] 32.3 g/dL Normal 30.5-36.0 [facility] Comment on above: Order Comment: Speci men Type: BLOOD SPECIMEN Ordering Facility: [facility] Address: [address] [address] Performed By: #### 5 8410-2 #### [facility] CLIA [id number] [address] MCV (RBC) [Entitic vol] 99.7 fL Normal 80.0-100.0 [facility] Comment on above: Order Comment: Speci men Type: BLOOD SPECIMEN Ordering Facility: [facility] Address: [address] [place] [address] Performed By: #### 5 8410-2 #### [facility] CLIA [id number] [address] [place] Nucleated RBC (Bld) [#/Vol] 10*3/uL Normal <0.01 [facility] Comment on above: Order Comment: Speci men Type: BLOOD SPECIMEN Ordering Facility: [facility] Address: [address] [place] [address] Performed By: #### 5 8410-2 #### [facility] CLIA [id number] [address] [place] Platelet mean volume (Bld) [Entitic vol] 10.1 fL Normal 9.0-12.7 [facility] Comment on above: Order Comment: Speci men Type: BLOOD SPECIMEN Ordering Facility: [facility] Address: [address] [place] [address] Performed By: #### 5 8410-2 #### [facility] CLIA [id number] [address] [place] Platelets (Bld) [#/Vol] 206 10*3/uL Normal 150-400 [facility] Comment on above: Order Comment: Speci men Type: BLOOD SPECIMEN Ordering Facility: [facility] Address: [address] [place] [address] Performed By: #### 5 8410-2 #### [facility] CLIA [id number] [address] [place] RBC (Bld) [#/Vol] 3.88 10*6/uL Low 3.90-5.20 [facility] Comment on above: Order Comment: Speci men Type: BLOOD SPECIMEN Ordering Facility: [facility] Address: [address] [place] [address] Performed By: #### 5 8410-2 #### [facility] CLIA [id number] [address] [place] WBC (Bld) [#/Vol] 10.56 10*3/uL Normal 3.70-11.00 [facility] Comment on above: Order Comment: Specabdiel men Type: BLOOD SPECIMEN Ordering Facility: [facility] Address: [place] [address] Performed By: #### 5 8410-2 #### [facility] CLIA [id number] [address] [place] CONSULTon 12-23-2022 CONSULT HNO ID: [id number] Author: Andreas Arguello MD Service: Neurology General Author Type: Physician Type: Consults Filed: 12/23/2022 1:24 PM Note Text: Neurology Consultation Note Date: December 23, 2022 Patient Name: Joan Foley Neurology was requested by Dr. Carolyn Nash to evaluateJoan Foley, a 42 year old female for a chief complaint of headache. Our recommendations of care will be communicated by shared medical record HPI: Patient is a 42 year old female who presented to the ED for spinal headache following lumbar puncture one week prior, with past medical history of anemia, endometriosis, IBS, and neurologic history of migraines. Patient has a long standing history of migraines, typically occurring one every few months, however last Tuesday, patient had a headache that she characterized as different than previous ones, in that it was not preceded by aura of ring of light. This one however, did not have aura, and instead was more of a throbbing sensation. In turn, patient presented to ED, where she received a lumbar puncture, presumably looking for xanthochromia or indications of subarachnoid hemorrhage-- nothing was yielded, along with negative CT. Patient then developed spinal headache, was told to see a Dr. Marietta Peguero in office for blood patch-- however, during the visit, they were unable to obtain blood, therefore, according to a note from outside provider, they injected saline into lumbar area-- was unable to find notes on this specific visit. Patient had no relief, therefore came to the ED yesterday (12/22), where a blood patch was performed at around 6 PM, at which time, patient stated her pain increased from a 10 out of 10 to a 20/10. Additionally, patient complains of some weakness in her hands and feet, yet nothing notably obtained on physical exam. Stroke Risk factors: Obesity Smoking Seizure Risk factors: Head Trauma (No); 2. PLANT ETIOLOGIST Infections (No); 3. Family History of Seizures (No); 4. Developmental Delay (No); 5. Febrile Seizures (No); 6. PLANT ETIOLOGIST Tumors (No); 7. PLANT ETIOLOGIST Vascular Disease (No) OUTPATIENT MEDICATIONS metoprolol tartrate, short acting, (LOPRESSOR) 25 mg tabletTake 1 tablet by mouth once daily. As directedDisp: 30 tabletRfl: 11 omeprazole (PRILOSEC) 40 mg capsuleTake 1 capsule by mouth once daily.Disp: Rfl: (Patient not taking: Reported on 10/25/2022) rizatriptan (MAXALT) 10 mg tabletTake at onset of headache one pill, may repeat in 2 hours, not more than 2 pills a dayDisp: 20 tabletRfl: 2 (Patient not taking: Reported on 10/25/2022) MEDICAL HISTORY PAST MEDICAL HISTORY Diagnosis Date Abdominal pain Anemia Dyspepsia Endometriosis Fatty liver Hypertension IBS (irritable bowel syndrome) Liver mass Post-cholecystectomy syndrome Renal disorder MASS DISCOVERED 12/2018 RUQ pain 06/10/14 Vitamin D deficiency SURGICAL HISTORY PAST SURGICAL HISTORY Procedure Laterality Date COLONOSCOPY 03/15/2022 COLONOSCOPY W/BIOPSY 2014 CYST/MOLE REMOVAL Bilateral Left wrist, right hand EGD 03/15/2022 EGD DILATION ENDOSCOPY PROC 2013 bxs LAPS SURG CHOLECYSTECTOMY W/CHOLANGIOGRAPHY 04/24/2014 Normal [facility] LIVER SURGERY HX 10/2018 ABLATION FOR MASS PAST SURGICAL HISTORY OF appendectomy PAST SURGICAL HISTORY OF dental procedures PAST SURGICAL HISTORY OF diagnostic laparoscopy PAST SURGICAL HISTORY OF Carpal tunnel release, right PAST SURGICAL HISTORY OF as a child removed a piece of lead from skull TOTAL ABDOMINAL HYSTERECT W/WO RMVL TUBE OVARY 2004 Hysterectomy, AMANDA SOCIAL HISTORY Social History Tobacco Use Smoking status: Former Packs/day: 0.50 Years: 11.00 Pack years: 5.50 Types: Cigarettes Smokeless tobacco: Never Tobacco comments: quit in Nov 2020 Vaping Use Vaping Use: Never used Substance Use Topics Alcohol use: Yes Comment: occ Drug use: No FAMILY HISTORY FAMILY HISTORY Adopted: Yes Problem Relation Age of Onset other (adopted) Other ALLERGIES ALLERGIES Allergen Reactions Penicillins Hives, Anaphylaxis, Shortness of Breath Chantix [Vareniclin* Other: See Comments Mood changes (irritability), flu like symptoms, body aching Contrast Dye [Iodin* Hives, Swelling Demerol [Meperidine* Other: See Comments Nausea Latex Other: See Comments my skin starts pealing off Morphine Hives, Itching Propoxyphene Intolerance REVIEW OF SYSTEMS: GENERAL: Tired, in noticeable pain HEENT: 8/10 headache, with changes in color of vision NECK: Negative for stiffness, lumps or significant neck swelling RESPIRATORY: Negative for cough, wheezing or respiratory distress. CARDIOVASCULAR: Negative for chest pain, syncope, lightheadness or heart racing. GI: Negative for abdominal discomfort, blood in stools or black stools or change in bowel habits : No history of dysuria, frequency or incontinence MUSCULOSKELETAL: Negative for joint pain or sw (more content not included)... Normal [facility] Comprehensive metabolic 2000 panelon 12-23-2022 Albumin [Mass/Vol] 4.0 g/dL Normal 3.9-4.9 [facility] Comment on above: Order Comment: Speci men Type: BLOOD SPECIMEN Ordering Facility: [facility] Address: [address] [place] [address] Performed By: #### 2 4323-8 #### [facility] CLIA [id number] [address] [facility] ALP [Catalytic activity/Vol] 67 U/L Normal 34-123 [facility] Comment on above: Order Comment: Speci men Type: BLOOD SPECIMEN Ordering Facility: [facility] Address: [address] [place] [address] Performed By: #### 2 4323-8 #### [facility] CLIA [id number] [address] [facility] ALT With P-5'-P [Catalytic activity/Vol] 145 U/L High 7-38 [facility] Comment on above: Order Comment: Speci men Type: BLOOD SPECIMEN Ordering Facility: [facility] Address: [address] [place] [address] Performed By: #### 2 4323-8 #### [facility] CLIA [id number] [address] Anion gap [Moles/Vol] 10 mmol/L Normal 9-18 [facility] Comment on above: Order Comment: Speci men Type: BLOOD SPECIMEN Ordering Facility: [facility] Address: [address] [place] [address] Performed By: #### 2 4323-8 #### [facility] CLIA [id number] [address] [facility] AST With P-5'-P [Catalytic activity/Vol] 108 U/L High 13-35 [facility] Comment on above: Order Comment: Speci men Type: BLOOD SPECIMEN Ordering Facility: [facility] Address: [address] [address] Performed By: #### 2 432-8 #### [facility] CLIA [id number] [address] [place] Bilirubin [Mass/Vol] 0.2 mg/dL Normal 0.2-1.3 [facility] Comment on above: Order Comment: Speci men Type: BLOOD SPECIMEN Ordering Facility: [facility] Address: [address] [place] [address] Performed By: #### 2 432-8 #### [facility] CLIA [id number] [address] Calcium [Mass/Vol] 8.5 mg/dL Normal 8.5-10.2 [facility] Comment on above: Order Comment: Speci men Type: BLOOD SPECIMEN Ordering Facility: [facility] Address: [address] [place] [address] Performed By: #### 2 432-8 #### [facility] CLIA [id number] [address] [place] Chloride [Moles/Vol] 104 mmol/L Normal 97-105 [facility] Comment on above: Order Comment: Speci men Type: BLOOD SPECIMEN Ordering Facility: [facility] Address: [address] [place] [address] Performed By: #### 2 4323-8 #### [facility] CLIA [id number] [address] [facility] CO2 [Moles/Vol] 21 mmol/L Low 22-30 [facility] Comment on above: Order Comment: James limon Type: BLOOD SPECIMEN Ordering Facility: [facility] Address: [address] [address] Performed By: #### 2 4323-8 #### [facility] CLIA [id number] [address] Creatinine [Mass/Vol] 0.68 mg/dL Normal 0.58-0.96 [facility] Comment on above: Order Comment: Specabdiel braxton Type: BLOOD SPECIMEN Ordering Facility: [facility] Address: [address] [place] [address] Performed By: #### 2 4323-8 #### [facility] CLIA [id number] [address] ESTIMATED GLOMERULAR FILTRATION RATE 112 mL/min/1.73m??? Normal >=60 [facility] Comment on above: Order Comment: James men Type: BLOOD SPECIMEN Ordering Facility: [facility] Address: [address] [place] [address] Result Comment: Cece mated Glomerular Filtration Rate (eGFR) is calculated using the 2020 CKD-EPI creatinine equation. This equation utilizes serum creatinine, sex, and age as parameters. The creatinine assay has traceable calibration to isotope dilution-mass spectrometry. Refer to KDIGO guidelines for clinical interpretation. In patients with unstable renal function, e.g. those with acute kidney injury, the eGFR may not accurately reflect actual GFR. Performed By: #### 2 4323-8 #### [facility] CLIA [id number] [address] Glucose [Mass/Vol] 145 mg/dL High 74-99 [facility] Comment on above: Order Comment: [facility] Type: BLOOD SPECIMEN Ordering Facility: [facility] Address: [address] [place] [address] Result Comment: The [place] Diabetes Association (ADA) provides guidance for cutoff values for fasting glucose and random glucose. The ADA defines fasting as no caloric intake for at least 8 hours. Fasting plasma glucose results between 100 to 125 mg/dL indicate increased risk for diabetes (prediabetes). Fasting plasma glucose results greater than or equal to 126 mg/dL meet the criteria for diagnosis of diabetes. In the absence of unequivocal hyperglycemia, results should be confirmed by repeat testing. In a patient with classic symptoms of hyperglycemia or hyperglycemic crisis, random plasma glucose results greater than or equal to 200 mg/dL meet the criteria for diagnosis of diabetes. Reference: Standards of Medical Care in Diabetes 2016, [employer] Diabetes Association. Diabetes Care. 2016.39(Suppl 1). Performed By: #### 2 4323-8 #### [facility] CLIA [id number] [address] [place] Potassium [Moles/Vol] 4.6 mmol/L Normal 3.7-5.1 [facility] Comment on above: Order Comment: Speci men Type: BLOOD SPECIMEN Ordering Facility: [facility] Address: [address] [place] [address] Performed By: #### 2 4323-8 #### [facility] CLIA [id number] 1 [place] [address] [place] Protein [Mass/Vol] 6.1 g/dL Low 6.3-8.0 [facility] Comment on above: Order Comment: Speci men Type: BLOOD SPECIMEN Ordering Facility: [facility] Address: [address] [place] [address] Performed By: #### 2 4323-8 #### [facility] CLIA [id number] [address] [place] Sodium [Moles/Vol] 135 mmol/L Low 136-144 [facility] Comment on above: Order Comment: Speci men Type: BLOOD SPECIMEN Ordering Facility: [facility] Address: [address] [place] [address] Performed By: #### 2 4323-8 #### [facility] CLIA [id number] [address] [place] Urea nitrogen [Mass/Vol] 9 mg/dL Normal 7-21 [facility] Comment on above: Order Comment: Speci men Type: BLOOD SPECIMEN Ordering Facility: [facility] Address: [place] [address] Performed By: #### 2 4323-8 #### [facility] CLIA [id number] 1 [place] [address] [place] HISTORY PHYSICALon HISTORY PHYSICAL HNO ID: [id number] Author: Brian Garrett DO Service: Hospital Medicine Author Type: Physician Type: HANDP Filed: 12/23/2022 12:24 AM Note Text: DEPARTMENT OF HOSPITAL MEDICINE HISTORY AND PHYSICAL EXAM SERVICE DATE: 12/22/2022 SERVICE TIME: 1155 PM Primary Care Physician: Nicky Knight MD NIGHT AND WEEKEND COVERAGE: PANTHER BURN COVERAGE: From 7am - 7pm, please call sound After 7pm, please call cross cover pager #[phone] Subjective CHIEF COMPLAINT: Headache HPI: This is a 42 year old female who presents from home with intractable headache. The patient initially developed a migraine type headache 1 week ago. She came to the ER the next day was treated with a cocktail as well as lumbar puncture. Initially her headache was improved following cocktail medications in the ER however the next day headache had worsened. She presented back to the ER noted her headache was better with lying and worse when sitting up she also had some associated dizziness lightheadedness. She was diagnosed with CSF leak and saline patch was attempted. She did not have significant relief from this today return to the ER and a blood patch was attempted. Following the blood patch which was done around 6 PM she developed severe worsening headache. She reports she was given Toradol and Benadryl which did not significantly help. She received a dose of Dilaudid with some improvement. She otherwise denies any recent illness including fevers, chills, shortness of breath, chest pain. She reports some persistent lightheadedness when sitting up and dizziness as well as some photophobia and paresthesia. She reports she is weak in her feet and feels like she might fall. She reports she is intermittent diarrhea which is unchanged from her baseline. She otherwise has no complaints or concerns. PAST MEDICAL HISTORY Diagnosis Date Abdominal pain Anemia Dyspepsia Endometriosis Fatty liver Hypertension IBS (irritable bowel syndrome) Liver mass Post-cholecystectomy syndrome Renal disorder MASS DISCOVERED 12/2018 RUQ pain 06/10/14 Vitamin D deficiency PAST SURGICAL HISTORY Procedure Laterality Date COLONOSCOPY 03/15/2022 COLONOSCOPY W/BIOPSY 2013 CYST/MOLE REMOVAL Bilateral Left wrist, right hand EGD 03/15/2022 EGD DILATION ENDOSCOPY PROC 2014 bxs LAPS SURG CHOLECYSTECTOMY W/CHOLANGIOGRAPHY 04/24/2014 Normal [facility] LIVER SURGERY HX 10/2018 ABLATION FOR MASS PAST SURGICAL HISTORY OF appendectomy PAST SURGICAL HISTORY OF dental procedures PAST SURGICAL HISTORY OF diagnostic laparoscopy PAST SURGICAL HISTORY OF Carpal tunnel release, right PAST SURGICAL HISTORY OF as a child removed a piece of lead from skull TOTAL ABDOMINAL HYSTERECT W/WO RMVL TUBE OVARY 2004 Hysterectomy, AMANDA FAMILY HISTORY Adopted: Yes Problem Relation Age of Onset other (adopted) Other Social History Tobacco Use Smoking status: Former Packs/day: 0.50 Years: 11.00 Pack years: 5.50 Types: Cigarettes Smokeless tobacco: Never Tobacco comments: quit in Nov 2020 Vaping Use Vaping Use: Never used Substance Use Topics Alcohol use: Yes Comment: occ Drug use: No MEDICATIONS: Reviewed see MRF metoprolol tartrate, short acting, (LOPRESSOR) 25 mg tablet, Take 1 tablet by mouth once daily. As directed, Disp: 30 tablet, Rfl: 11 omeprazole (PRILOSEC) 40 mg capsule, Take 1 capsule by mouth once daily. (Patient not taking: Reported on 10/25/2022), Disp: , Rfl: rizatriptan (MAXALT) 10 mg tablet, Take at onset of headache one pill, may repeat in 2 hours, not more than 2 pills a day (Patient not taking: Reported on 10/25/2022), Disp: 20 tablet, Rfl: 2 ALLERGIES Allergen Reactions Penicillins Hives, Anaphylaxis, Shortness of Breath Chantix [Vareniclin* Other: See Comments Mood changes (irritability), flu like symptoms, body aching Contrast Dye [Iodin* Hives, Swelling Demerol [Meperidine* Other: See Comments Nausea Latex Other: See Comments my skin starts pealing off Morphine Hives, Itching Propoxyphene Intolerance REVIEW OF SYSTEM: Review system reviewed negative less otherwise known HPI Objective PHYSICAL EXAM: BP 127/79 Pulse 89 Temp (Src) 97.5 (Oral) Resp 16 Ht 5' 4 (1.63m) Wt 176 lb (79.8kg) SpO2 98% BMI 30.20 kg/(m2). O2 Therapy: Room Air Physical Exam Performed: GENERAL: Alert, appears uncomfortable, cooperative SKIN: Skin color, texture, turgor normal. No rashes or lesions. HEAD/SINUSES: No significant findings EYES: PERRLA, EOMI EARS: External ears normal, canals clear NOSE: Nares normal. Septum midline. OROPHARYNX: Lips, mucosa, and tongue normal. Teeth and gums normal. Oropharynx normal. NECK: No jugulovenous distention BACK: Back symmetric LUNGS: Lungs clear to auscultation, Good diaphragmatic excursion CARDIAC: Normal S1 and S2; no rubs, murmurs, or gallops ABDOMEN: Abdomen soft, non-tender, BS normal, No masses or organomegaly (more content not included)... Normal [facility] MRA BRAIN WO IVCONon 023 MRA BRAIN WO IVCON * * *Final Report* * * DATE OF EXAM: Dec 23 2022 6:21PM [facility] 0272 - MRA BRAIN WO IVCON / PROCEDURE REASON: Headache, new or worsening (Age >= 50y) * * * * Physician Interpretation * * * * EXAMINATION: MRI BRAIN WO IVCON, MRA BRAIN WO IVCON, MRV BRAIN WO IVCON HISTORY: HEADACHE (accession [id number]), Aneurysm (known, predisposing condition) (accession [id number]) - Headache, new or worsening (Age >= 50y) (accession [id number]), Headache, new or worsening (Age >= 50y) (accession [id number]), Dural venous sinus thrombosis suspected (accession [id number]) TECHNIQUE: MRI brain routine protocol without contrast, 3-D eaeo-ht-gixcoy intracranial MRA, and 2-D wwdr-ca-pdquck intracranial MRV. 3-D post-processed images were created, reviewed and archived. M: [id number]_2 COMPARISON: None. RESULT: Acute Change: No evidence of an acute intracranial process. Hemorrhage: No evidence of prior parenchymal hemorrhage on the susceptibility weighted sequences. Numerous scattered small foci of susceptibility likely reflecting foci of air from recent lumbar puncture, including overlying each anterior frontal convexity, along the anterior interhemispheric fissure, quadrigeminal, suprasellar and superior cerebellar cisterns, and within the right lateral, third and fourth ventricles. Mass Lesion/ Mass Effect: No evidence of an intracranial mass, extra-axial fluid collection, or significant localized mass effect. Chronic Change: The white matter is within normal limits of signal intensity for age. Parenchyma: No significant parenchymal volume loss for age. Ventricles: Normal caliber and morphology. Skull Base: Hypothalamic and pituitary region are grossly normal. Craniocervical junction is normal. No significant marrow replacement process. Vasculature: Major intracranial arteries and dural venous sinuses demonstrate typical flow voids, suggesting patency by spin echo criteria. Other: Mild circumferential mucosal thickening in the left maxillary antrum. Clear mastoid air cells. The orbits and extracranial soft tissues are unremarkable. INTRACRANIAL MRA: Anterior circulation: The imaged distal cervical ICAs, carotid siphons, ACAs and MCAs are normal in caliber. A1 segments are codominant. Posterior circulation: configuration of the right RESIN SHAVER with diminished caliber of the right P1 segment. Distal vertebral arteries (codominant), basilar trunk and operational test mechanic are normal in caliber. No vessel cutoff, filling defect, significant focal stenosis, or evidence of aneurysm. INTRACRANIAL MRV: Normal flow-related signal in the dural venous sinuses and major deep and superficial draining veins without evidence of focal filling defect or significant stenosis. Right dominant pucblonkha-djdlbta-flje lar drainage with relatively hypoplastic left transverse sinus and sigmoid sinuses. IMPRESSION: Age-appropriate unremarkable brain without acute findings. Scattered small foci of subarachnoid and intraventricular susceptibility likely reflecting air from recent lumbar puncture. Unremarkable intracranial MRA/MRV. Pharmacy Services Director: COLLINS Transcribe Date/Time: Dec 23 2022 6:35P Dictated by : ROSIBEL TUCKER MD This examination was interpreted and the report reviewed and electronically signed by: ROSIBEL TUCKER MD on Dec 23 2022 6:46PM EST [id number] Normal [facility] MRI BRAIN WO IVCONon 023 MRI BRAIN WO IVCON * * *Final Report* * * DATE OF EXAM: Dec 23 2022 6:21PM [facility] 0294 - MRI BRAIN WO IVCON / PROCEDURE REASON: Headache, new or worsening (Age >= 50y) * * * * Physician Interpretation * * * * EXAMINATION: MRI BRAIN WO IVCON, MRA BRAIN WO IVCON, MRV BRAIN WO IVCON HISTORY: HEADACHE (accession [id number]), Aneurysm (known, predisposing condition) (accession [id number]) - Headache, new or worsening (Age >= 50y) (accession [id number]), Headache, new or worsening (Age >= 50y) (accession [id number]), Dural venous sinus thrombosis suspected (accession [id number]) TECHNIQUE: MRI brain routine protocol without contrast, 3-D tkip-dv-wnbdpb intracranial MRA, and 2-D jqma-gl-fgubgq intracranial MRV. 3-D post-processed images were created, reviewed and archived. M: MRBBWO_2 COMPARISON: None. RESULT: Acute Change: No evidence of an acute intracranial process. Hemorrhage: No evidence of prior parenchymal hemorrhage on the susceptibility weighted sequences. Numerous scattered small foci of susceptibility likely reflecting foci of air from recent lumbar puncture, including overlying each anterior frontal convexity, along the anterior interhemispheric fissure, quadrigeminal, suprasellar and superior cerebellar cisterns, and within the right lateral, third and fourth ventricles. Mass Lesion/ Mass Effect: No evidence of an intracranial mass, extra-axial fluid collection, or significant localized mass effect. Chronic Change: The white matter is within normal limits of signal intensity for age. Parenchyma: No significant parenchymal volume loss for age. Ventricles: Normal caliber and morphology. Skull Base: Hypothalamic and pituitary region are grossly normal. Craniocervical junction is normal. No significant marrow replacement process. Vasculature: Major intracranial arteries and dural venous sinuses demonstrate typical flow voids, suggesting patency by spin echo criteria. Other: Mild circumferential mucosal thickening in the left maxillary antrum. Clear mastoid air cells. The orbits and extracranial soft tissues are unremarkable. INTRACRANIAL MRA: Anterior circulation: The imaged distal cervical ICAs, carotid siphons, ACAs and MCAs are normal in caliber. A1 segments are codominant. Posterior circulation: configuration of the right RESIN SHAVER with diminished caliber of the right P1 segment. Distal vertebral arteries (codominant), basilar trunk and operational test mechanic are normal in caliber. No vessel cutoff, filling defect, significant focal stenosis, or evidence of aneurysm. INTRACRANIAL MRV: Normal flow-related signal in the dural venous sinuses and major deep and superficial draining veins without evidence of focal filling defect or significant stenosis. Right dominant jfjosifuos-pcofxlj-bgai lar drainage with relatively hypoplastic left transverse sinus and sigmoid sinuses. IMPRESSION: Age-appropriate unremarkable brain without acute findings. Scattered small foci of subarachnoid and intraventricular susceptibility likely reflecting air from recent lumbar puncture. Unremarkable intracranial MRA/MRV. Pharmacy Services Director: PSCB Transcribe Date/Time: Dec 23 2022 6:35P Dictated by : ROSIBEL TUCKER MD This examination was interpreted and the report reviewed and electronically signed by: ROSIBEL TUCKER MD on Dec 23 2022 6:46PM EST [id number] Normal [facility] MRV BRAIN WO IVCONon 023 MRV BRAIN WO IVCON * * *Final Report* * * DATE OF EXAM: Dec 23 2022 6:21PM [facility] 0335 - MRV BRAIN WO IVCON / PROCEDURE REASON: Dural venous sinus thrombosis suspected * * * * Physician Interpretation * * * * EXAMINATION: MRI BRAIN WO IVCON, MRA BRAIN WO IVCON, MRV BRAIN WO IVCON HISTORY: HEADACHE (accession [id number]), Aneurysm (known, predisposing condition) (accession [id number]) - Headache, new or worsening (Age >= 50y) (accession [id number]), Headache, new or worsening (Age >= 50y) (accession [id number]), Dural venous sinus thrombosis suspected (accession [id number]) TECHNIQUE: MRI brain routine protocol without contrast, 3-D gaoj-wp-orafbd intracranial MRA, and 2-D jmaq-by-envqrp intracranial MRV. 3-D post-processed images were created, reviewed and archived. M: MRBBWO_2 COMPARISON: None. RESULT: Acute Change: No evidence of an acute intracranial process. Hemorrhage: No evidence of prior parenchymal hemorrhage on the susceptibility weighted sequences. Numerous scattered small foci of susceptibility likely reflecting foci of air from recent lumbar puncture, including overlying each anterior frontal convexity, along the anterior interhemispheric fissure, quadrigeminal, suprasellar and superior cerebellar cisterns, and within the right lateral, third and fourth ventricles. Mass Lesion/ Mass Effect: No evidence of an intracranial mass, extra-axial fluid collection, or significant localized mass effect. Chronic Change: The white matter is within normal limits of signal intensity for age. Parenchyma: No significant parenchymal volume loss for age. Ventricles: Normal caliber and morphology. Skull Base: Hypothalamic and pituitary region are grossly normal. Craniocervical junction is normal. No significant marrow replacement process. Vasculature: Major intracranial arteries and dural venous sinuses demonstrate typical flow voids, suggesting patency by spin echo criteria. Other: Mild circumferential mucosal thickening in the left maxillary antrum. Clear mastoid air cells. The orbits and extracranial soft tissues are unremarkable. INTRACRANIAL MRA: Anterior circulation: The imaged distal cervical ICAs, carotid siphons, ACAs and MCAs are normal in caliber. A1 segments are codominant. Posterior circulation: configuration of the right RESIN SHAVER with diminished caliber of the right P1 segment. Distal vertebral arteries (codominant), basilar trunk and operational test mechanic are normal in caliber. No vessel cutoff, filling defect, significant focal stenosis, or evidence of aneurysm. INTRACRANIAL MRV: Normal flow-related signal in the dural venous sinuses and major deep and superficial draining veins without evidence of focal filling defect or significant stenosis. Right dominant drmrigzpmy-npadkym-enrl lar drainage with relatively hypoplastic left transverse sinus and sigmoid sinuses. IMPRESSION: Age-appropriate unremarkable brain without acute findings. Scattered small foci of subarachnoid and intraventricular susceptibility likely reflecting air from recent lumbar puncture. Unremarkable intracranial MRA/MRV. Pharmacy Services Director: COLLINS Transcribe Date/Time: Dec 23 2022 6:35P Dictated by : ROSIBEL TUCKER MD This examination was interpreted and the report reviewed and electronically signed by: ROSIBEL TUCKER MD on Dec 23 2022 6:46PM EST [id number] Normal [facility] PT panel Coag (PPP)on 2022 INR Coag (PPP) [Relative time] {INR} Low 0.9-1.3 [facility] Comment on above: Order Comment: Speci men Type: BLOOD SPECIMEN Ordering Facility: [facility] Address: [address] [place] [id number] Result Comment: [place] min K Antagonist (VKA) Therapeutic Range: INR 2 to 3 (Target INR of 2.5) Note: For patients treated with VKA drugs, such as warfarin, the [employer] 2012 Guideline recommends a therapeutic INR range of 2 to 3 (target INR of 2.5). This recommendation includes high-risk patients with antiphospholipid syndrome with previous arterial or venous thromboembolism, current-generation mechanical or bioprosthetic aortic heart valve replacement. Note: Patients with mechanical aortic valve replacement and additional risk factors for thromboembolic events (atrial fibrillation, previous thromboembolism, LV dysfunction, hypercoagulable conditions) or an older generation mechanical AVR (i.e., ball in-Cage) or any mechanical MVR should have a INR therapeutic range of 2.5 to 3.5 (target INR of 3). Ghassan KUNZ, et al. Chest 2012, 141:7S-47S Ebonie RA, et al. [facility] 2017, 70: 252-289 Performed By: #### 3 4528-0 #### [facility] CLIA [id number] [address] PT Coag (PPP) [Time] 9.7 s Normal 9.7-13.0 [facility] Comment on above: Order Comment: Speci men Type: BLOOD SPECIMEN Ordering Facility: [facility] Address: [address] [place] [address] Performed By: #### 3 4528-0 #### [facility] CLIA [id number] [address] THERAPY NTon 12-23-2022 THERAPY NT HNO ID: [id number] Author: LINDSAY Wadsworth/Petra Service: Occupational Therapy Author Type: Occupational Therapist Type: Therapy (PT/OT/Speech/Resp) Filed: 12/23/2022 2:14 PM Note Text: OCCUPATIONAL THERAPY MISSED VISIT SERVICE DATE: 12/23/2022 SERVICE TIME: 1412 to 1412 ROOM: [place] [address] Patient not seen due to No Skilled Needs. Patient is independent and does not require skilled OT services at this time. OT will sign off. SIGNATURE: LINDSAY Wadsworth/Petra PATIENT NAME: Joan Foley DATE: December 23, 2022 TIME: 2:13 PM Normal [facility] THERAPY NT HNO ID: [id number] Author: Grover Moore PT Service: Physical Therapy Author Type: Physical Therapist Type: Therapy (PT/OT/Speech/Resp) Filed: 12/23/2022 1:43 PM Note Text: PHYSICAL THERAPY MISSED VISIT SERVICE DATE: 12/23/2022 SERVICE TIME: 1342 to 1342 ROOM: [place] [address] Patient not seen due to No Skilled Needs. Discussed with RN, pt is independent. Anticipate no acute PT needs, will sign off. SIGNATURE: Grover Moore PT PATIENT NAME: Joan Foley DATE: December 23, 2022 TIME: 1:42 PM Normal [facility] Absolute lymphocyte countOrd ered By: Dr. Carcamo on 12-22-2022 Lymphocytes Auto (Unsp spec) [#/Vol] 2.74 10*3/uL 0.83-4.51 [facility] Basophil percentageOrdered B y: Dr. Carcamo on 12-22-2022 Basophils/100 WBC (Bld) 0.8 % 0-1 [facility] Eosinophils/100 WBC (Bld) 1.8 % 0-5 [facility] Neutrophils (Bld) [#/Vol] 6.9 10*3/uL 2.0-7.7 [facility] Neutrophils/100 WBC (Bld) 63.5 % 47-70 [facility] WBC (Bld) [#/Vol] 10.8 10*3/uL 4.4-11.0 [facility] Blood erythrocytes count (nu mber/volume)Ordered By: Dr. Carcamo on 12-22-2022 RBC (Bld) [#/Vol] 4.31 10*6/uL 4.2-5.4 [facility] Blood hemoglobin measurement (mass/volume)Ordered By: Dr. Carcamo on 12-22-2022 Hemoglobin (Bld) [Mass/Vol] 14.1 g/dL 12.0-15.0 [facility] Blood lymphocytes/100 leukoc ytesOrdered By: Dr. Carcamo on 12-22-2022 Lymphocytes/100 WBC (Bld) 25.3 % 19-41 [facility] Blood manual differential co mment interpretation (narrative result)Ordered By: Dr. Carcamo on 12-22-2022 Manual differential comment Cristobal (Bld) [Interp] SCANNED [facility] Blood monocytes/100 leukocyt esOrdered By: Dr. Carcamo on 12-22-2022 Monocytes/100 WBC (Bld) 6.8 % 0-10 [facility] Blood platelet mean volumeOr dered By: Dr. Carcamo on 12-22-2022 Platelet mean volume (Bld) [Entitic vol] 11.2 fL 6.2-12.0 [facility] COVID-19 virus antigen assay Ordered By: Dr. Carcamo on 12-22-2022 SARS-CoV-2 (COVID-19) Ag IA.rapid Ql (Resp) [facility] Determination of erythrocyte mean corpuscular volume (MCV)Ordered By: Dr. Carcamo on 12-22-2022 MCV (RBC) [Entitic vol] 99.8 fL 81-99 [facility] Hematocrit Auto (Bld) [Volum e fraction]Ordered By: Dr. Carcamo on 12-22-2022 Hematocrit (Bld) [Volume fraction] 43.0 % 37-47 [facility] Laboratory - Hematology and Cell countsOrdered By: Dr. Carcamo on 12-22-2022 Erythrocyte distribution width (RBC) [Entitic vol] 43.9 fL 35.1-43.9 [facility] Erythrocyte distribution width (RBC) [Ratio] 11.9 % 11.6-14.6 [facility] Immature granulocytes/100 WBC (Bld) 1.800 % 0.0-0.9 [facility] Comment on above: IG% - Immature Granu locytes (promyelocytes, myelocytes and metamyelocytes) > 1% indicates that a LEFT SHIFT is Present. MCH (RBC) [Entitic mass] 32.7 pg 27.0-32.0 [facility] Nucleated RBC/100 WBC (Bld) [Ratio] 0 % 0-5 [facility] MCHC Auto (RBC) [Mass/Vol]Or dered By: Dr. Carcamo on 12-22-2022 MCHC (RBC) [Mass/Vol] 32.8 g/dL 32-36 [facility] Platelets bldOrdered By: Dr. Carcamo on 12-22-2022 Platelets (Bld) [#/Vol] 187 10*3/uL 150-450 [facility] Basic metabolic 1998 panelon 12-16-2022 Anion gap [Moles/Vol] 4 mmol/L 3 - 13 mmol/L [facility] Calcium [Mass/Vol] 9.4 mg/dL 8.4 - 10. 4 mg/dL [facility] Chloride [Moles/Vol] 108 mmol/L High 98 - 10 7 mmol/L [facility] CO2 [Moles/Vol] 26 mmol/L 22 - 30 mmol/L [facility] Creatinine [Mass/Vol] 0.80 mg/dL 0.52 - 1.04 mg/dL [facility] GFR/1.73 sq M.predicted MDRD (S/P/Bld) [Vol rate/Area] - PINF [facility] Comment on above: Calculation based on the Chronic Kidney Disease Epidemiology Collaboration (CKD-EPI) equation refit without adjustment for race Glucose [Mass/Vol] 94 mg/dL 70 - 100 mg/dL [facility] Interpretation and review of laboratory results Abnormal [facility] Potassium [Moles/Vol] 4.3 mmol/L 3.5 - 5.1 mmol/L [facility] Sodium [Moles/Vol] 137 mmol/L 135 - 145 mmol/L [facility] Urea nitrogen [Mass/Vol] 14 mg/dL 7 - 17 mg/dL [facility] CBC W Auto Differential pane l (Bld)on 12-16-2022 Basophils (Bld) [#/Vol] 0.1 10*3/uL 0.0 - 0.2 10*3/uL [facility] Basophils/100 WBC (Bld) 0.7 % 0.0 - 2.0 % [facility] Eosinophils (Bld) [#/Vol] 0.3 10*3/uL 0.0 - 0.5 10*3/uL [facility] Eosinophils/100 WBC (Bld) 2.8 % 1.0 - 6.0 % [facility] Erythrocyte distribution width (RBC) [Ratio] 12.1 % 11.5 - 14.5 % [facility] Hematocrit (Bld) [Volume fraction] 44.3 % 35.0 - 47.0 % [facility] Hemoglobin (Bld) [Mass/Vol] 14.4 g/dL 11.7 - 16.0 g/dL [facility] Immature granulocytes (Bld) [#/Vol] 0.1 10*3/uL High NINF - 0.0 10*3/uL [facility] Immature granulocytes/100 WBC (Bld) 1.1 % High NINF - 0.0 % [facility] Interpretation and review of laboratory results Abnormal [facility] Lymphocytes (Bld) [#/Vol] 2.2 10*3/uL 1.0 - 4.3 10*3/uL [facility] Lymphocytes/100 WBC (Bld) 22.5 % 20.0 - 40.0 % [facility] MCH (RBC) [Entitic mass] 33.1 pg 26.0 - 34.0 pg [facility] MCHC (RBC) [Mass/Vol] 32.5 % 32.0 - 36.0 % [facility] MCV (RBC) [Entitic vol] 101.8 fL High 80.0 - 98.0 fL [facility] Monocytes (Bld) [#/Vol] 0.5 10*3/uL 0.0 - 0.8 10*3/uL [facility] Monocytes/100 WBC (Bld) 4.9 % 2.0 - 10.0 % [facility] Neutrophils (Bld) [#/Vol] 6.5 10*3/uL 1.8 - 7.0 10*3/uL [facility] Neutrophils/100 WBC (Bld) 68.0 % 40.0 - 80.0 % [facility] Platelet mean volume (Bld) [Entitic vol] 10.4 fL 7.4 - 12.4 fL [facility] Comment on above: MPV is a calculated measurement using platelet volume ratio Platelets (Bld) [#/Vol] 225 10*3/uL 140 - 440 10*3/uL [facility] RBC (Bld) [#/Vol] 4.35 10*6/uL 3.8 - 5.20 10*6/uL [facility] WBC (Bld) [#/Vol] 9.6 10*3/uL 3.6 - 10.7 10*3/uL [facility] CT Head WO contraston [address] Report Dictated on Electronically Signed By: Jose Sarabia Electronically Signed Date/Time: 12/16/2022 10:07 AM [facility] [employer] Patient Name: JOAN FOLEY : 1980 Exam Date/Time: 12/16/2022 10:00 Procedure: CT HEAD WO IV CONTRAST Ordering Provider: PHAM TYLER Reason For Exam: Headache, chronic, new features or increased frequency CT HEAD WITHOUT CONTRAST CLINICAL HISTORY: Headache, chronic, new features or increased frequency COMPARISON: None TECHNIQUE: Helical CT of the brain without contrast. FINDINGS: Acute Findings: No hemorrhage, mass, or infarct. Chronic Changes: None identified. Ventricles and sulci: Within normal limits for age. Other: The skull, included paranasal sinuses and orbits are normal. [facility] Jose Sarabia M D - 12/16/2022 Patient Name: JOAN FOLEY : 1980 Exam Date/Time: 12/16/2022 10:00 Procedure: CT HEAD WO IV CONTRAST Ordering Provider: PHAM TYLER Reason For Exam: Headache, chronic, new features or increased frequency CT HEAD WITHOUT CONTRAST CLINICAL HISTORY: Headache, chronic, new features or increased frequency COMPARISON: None TECHNIQUE: Helical CT of the brain without contrast. FINDINGS: Acute Findings: No hemorrhage, mass, or infarct. Chronic Changes: None identified. Ventricles and sulci: Within normal limits for age. Other: The skull, included paranasal sinuses and orbits are normal. IMPRESSION: Normal head CT. Report Dictated on Electronically Signed By: Jose Sarabia Electronically Signed Date/Time: 12/16/2022 10:07 AM EST [facility] Radiology Study observation (narrative) [facility] CT Head WO contrastOrdered B y: Jose Sarabia on 12-16-2022 [facility] [employer] Work Phone: ED Nursing Noteon 12-16-2022 ED Nursing Note Patient ambulated to the restroom without difficulty, she denies dizziness during ambulation. Warm blanket given for comfort. Will continue to monitor. Call light within reach. Jayashree Banerjee RN 12/16/22 0116 Normal [facility] ED Nursing Note Patient to room 3 wi th c/o headache since yesterday. Patient reports nausea and dizziness. Patient took Maxalt last night at 2030 without relief. V/S obtained, call light within reach. Normal [facility] ED Provider Noteon 3 ED Provider Note EMERGENCY DEPARTMENT ENCOUNTER Pt Name: Joan Foley Birthdate 1980 Date of evaluation: 12/16/2022 ED Provider: Gerald Pham DO CHIEF COMPLAINT Chief Complaint Patient presents with Headache HISTORY OF PRESENT ILLNESS (Location/Symptom, Timing/Onset, Context/Setting, Quality, Duration, Modifying Factors, Severity) Note limiting factors. I wore appropriate PPE for the entirety of this encounter. HPI Joan Foley is a 42 y.o. female who presents to the emergency department with a headache. States she has a history of migraine headaches however she gets them infrequently. When she does experience them, she takes oral magnesium which improves her symptoms. States she woke up yesterday morning feeling normal. After being up for approximately 1 hour she developed a severe sudden onset headache. States is the worst headache of life. States that reaches maximal intensity and minutes. States the headache is diffuse in nature with some associated photophobia. Took her magnesium with no improvement of the headache. Headache persisted all day yesterday, she did not sleep well due to the headache last night, and when she woke up again this morning with headache, she presented to the emergency room for evacuation. Denies any other neck neck stiffness, neurologic deficits including vision loss, confusion, speech abnormality, facial asymmetries, weakness or numbness in her upper or lower extremities. Denies any other chest pain, shortness of breath, fever, chills. Nursing Notes were reviewed. REVIEW OF SYSTEMS 14 systems reviewed and otherwise acutely negative except as in the [place]. PAST MEDICAL HISTORY Past Medical History: Diagnosis Date Anxiety GERD (gastroesophageal reflux disease) diahrea Headache Psychiatric problem post pardem depression Ventricular tachycardia, non-sustained SURGICAL HISTORY Past Surgical History: Procedure Laterality Date ABDOMINAL SURGERY APPENDECTOMY CARPAL TUNNEL RELEASE Right CHOLECYSTECTOMY COLONOSCOPY COLONOSCOPY CYST REMOVAL Bilateral left wrist, right hand ESOPHAGEAL DILATION FRACTURE SURGERY broke left arm x2. fall trampoline and tree HYSTERECTOMY has 1 ovarie LIVER BIOPSY 08/07/2018 TOTAL ABDOMINAL HYSTERECTOMY US GUIDED NEEDLE LIVER BIOPSY 03/23/2022 US GUIDED LIVER BIOPSY PERCUTANEOUS CURRENT MEDICATIONS Discharge Medication List as of 12/16/2022 1:23 PM CONTINUE these medications which have NOT CHANGED Details metoprolol tartrate (Lopressor) 25 MG tablet Take 25 mg by mouth in the morning., Starting 10/25/2022, Historical Med ALLERGIES Hydromorphone, Latex, Penicillins, Varenicline, Acetaminophen, Iodides, Morphine, Propoxyphene, and Meperidine FAMILY HISTORY Family History Adopted: Yes SOCIAL HISTORY Social History Socioeconomic History Marital status: Tobacco Use Smoking status: Former Packs/day: 0.50 Types: Cigarettes Start date: 04/09/2007 Smokeless tobacco: Never Substance and Sexual Activity Alcohol use: Yes Alcohol/week: 6.0 - 7.0 standard drinks Drug use: No SCREENINGS PHYSICAL EXAM ED Triage Vitals [12/16/22 0854] Temp Heart Rate Resp BP 37.1 ?C (98.8 ?F) 87 16 (!) 147/101 SpO2 Temp Source Heart Rate Source Patient Position 100 % Oral Monitor -- BP Location FiO2 (%) -- -- CONSTITUTIONAL: AOx4, no apparent distress, appears stated age HEAD: normocephalic, atraumatic EYES: PERRL, EOMI ENT: moist mucous membranes, uvula midline NECK: supple, symmetric, full range of motion of the neck and back BACK: symmetric LUNGS: clear to auscultation bilaterally CARDIOVASCULAR: regular rate and rhythm, no murmurs, rubs or gallops ABDOMEN: soft, non-tender, non-distended with normal active bowel sounds : deferred NEUROLOGIC: MAEx4, no focal sensory or motor deficits, NIH of 0 MUSCULOSKELETAL: no clubbing, cyanosis or edema SKIN: no exposed rash DIAGNOSTIC RESULTS Procedures/EKG: EKG was reviewed by myself. Physician EKG interpretation can be found in [facility] RADIOLOGY (Per Emergency Physician): Interpretation per the Radiologist below, if available at the time of this note: CT head wo IV contrast Final Result Normal head CT. Report Dictated on Electronically Signed By: Jose Sarabia Electronically Signed Date/Time: 12/16/2022 10:07 AM EST ED BEDSIDE ULTRASOUND: Performed by ED Physician - none LABS: Labs Reviewed PROTHROMBIN TIME - Abnormal Result Value PROTHROMBIN TIME 9.9 INR <0.9 (*) CBC WITH AUTO DIFFERENTIAL - Abnormal Auto WBC 9.6 RBC 4.35 Hemoglobin 14.4 Hematocrit 44.3 MCV 101.8 (*) MCH 33.1 MCHC 32.5 RDW 12.1 Platelets 225 MPV 10.4 Neutrophils Relative 68.0 Lymphocytes Relative 22.5 Monocytes Relative 4.9 Eosinophils Relative 2.8 Basophils Relative 0.7 Immature Grans % 1.1 (*) Neutrophils Absolute 6.5 Lymphocytes Absolute 2.2 [place] (more content not included)... Normal [facility] Laboratory - Chemistry and C hemistry - challengeon 12-16-2022 Glucose (CSF) [Mass/Vol] 51 mg/dL 40 - 70 mg/dL [facility] Laboratory - Chemistry and C hemistry - challengeOrdered By: Carmen Bangura on 12-16-2022 Protein (CSF) [Mass/Vol] 66.2 mg/dL High 12.0 - 60.0 mg/dL [facility] Laboratory - Chemistry and C hemistry - challengeOrdered By: Nevin Beasley on 12-16-2022 Beta HCG ( test) Ql Negative Negative [facility] Comment on above: Please note: Very di lute urine specimens, as indicated by a low specific gravity, may not contain sales representative consultant levels of hCG. If is still suspected, a first morning urine specimen should be collected 48 hours later and tested. Beta HCG ( test) Ql (U) is the most common reason for HCG in urine, although choriocarcinoma, hydatidiform mole, and certain nontrophoblastic malignancies also result in detectable urinary HCG levels. Sensitivity = 20mIU/mL. [facility] Laboratory - Coagulationon 0 12-16-2022 PT Coag (Bld) [Time] 9.9 s 9.0 - 1 2.0 s [facility] - Hematology and Cell countsOrdered By: Joselin Ruiz on 12-16-2022 RBC Manual cnt (CSF) [#/Vol] 1 /mm3 [facility] WBC Manual cnt (CSF) [#/Vol] 3 /mm3 NINF - 5 /mm3 [facility] - Specimen inform ationOrdered By: Joselin Ruiz on 12-16-2022 Appearance (CSF) Clear and Colorless [facility] [employer] Appearance (Spun CSF) Clear and Colorless [facility] Tube number Nom (CSF) [ID] Tube 3 [facility] Laboratory - Specimen inform ationon 12-16-2022 Appearance (CSF) Clear and Colorless [facility] - Specimen inform ationOrdered By: Carmen Bangura on 03-09-2023 Appearance (CSF) Clear and Colorless [facility] No Panel InformationOrdered By: Joselin Ruiz on 12-16-2022 [facility] No Panel Informationon 12-16 SUPERNATANT Clear and Colorless [facility] Gerald Pham DO 12/16/2022 2:18 PM Lumbar Puncture Performed by: Gerald Pham DO Authorized by: Gerald Pham DO Consent: Consent obtained: Written Consent given by: Patient Risks, benefits, and alternatives were discussed: yes Risks discussed: Bleeding, infection, nerve damage, pain and headache Alternatives discussed: No treatment and alternative treatment Taylor protocol: Procedure explained and questions answered to patient or proxy's satisfaction: yes Relevant documents present and verified: yes Test results available: yes Imaging studies available: yes Patient identity confirmed: Arm band Pre-procedure details: Procedure purpose: Diagnostic Preparation: Patient was prepped and draped in usual sterile fashion Anesthesia: Anesthesia method: Local infiltration Local anesthetic: Lidocaine 1% w/o epi Procedure details: Lumbar space: L4-L5 interspace Patient position: Sitting Needle gauge: 22 Needle type: Spinal needle - Quincke tip Needle length (in): 3.5 Number of attempts: 1 Fluid appearance: Clear Tubes of fluid: 4 Total volume (ml): 6 Post-procedure details: Puncture site: Direct pressure applied Procedure completion: Tolerated [facility] No Panel InformationOrdered By: Carmen Bangura on 12-16-2022 Interpretation and review of laboratory results Abnormal [facility] SUPERNATANT Clear and Colorless [facility] No Panel InformationOrdered By: Nevin Beasley on 12-16-2022 [facility] PT Coag (Bld) [Time]on 12-16 INR Coag (PPP) [Relative time] Low 0.9 - 1.1 [facility] Comment on above: This result was prev iously suppressed from the chart. Interpretation and review of laboratory results Abnormal [facility] Urinalysis complete panel (U )on 12-16-2022 Bilirubin Ql (U) Negative Negative mg/dL [facility] Clarity (U) Clear Clear [facility] Color (U) Light Yellow Lt. Yellow [facility] Glucose Ql (U) Normal Normal (<70) mg/dL [facility] Hemoglobin Ql (U) Negative Negative mg/dL [facility] Interpretation and review of laboratory results Normal [facility] Ketones (U) [Mass/Vol] Negative Negat brittany mg/dL [facility] Leukocyte esterase Test strip Ql (U) Negative Negative Charlie/uL [facility] Nitrite Ql (U) Negative Negative [facility] pH (U) 5.0 [pH] 5.0 - 8.0 pH [facility] Protein (U) [Mass/Vol] Negative Negat brittany mg/dL [facility] Specific gravity (U) [Rel density] 1.022 1.005 - 1.030 [facility] Urobilinogen (U) [Mass/Vol] Normal Normal (0-1) mg/dL [facility] aPTT Coag (Bld) [Time]on aPTT Coag (PPP) [Time] 25.7 s 20.0 - 30.5 s [facility] Interpretation and review of laboratory results Normal [facility] NOTE: The therapeuti c time for Heparin anticoagulation, based on Xa activity inhibition, is an APTT of 46-80 seconds. [facility] XR DIGIT GENERAL 3V FRONTAL/ LAT/OBL LEFTon 11-29-2022 [facility] XR Finger - left AP and Late ral and obliqueon 11-29-2022 IMPRESSION: Negative 3 views of the third digit. Pharmacy Services Director: PSCB Transcribe Date/Time: Nov 29 2022 12:50P Dictated by : SHIRIN ANGEL MD This examination was interpreted and the report reviewed and electronically signed by: SHIRIN ANGEL MD on Nov 29 2022 12:52PM [facility] DIVISION OF RADIOLOGY * * *Final Report* * * DATE OF EXAM: Nov 29 2022 12:44PM [id number] - XR DIGIT 3V FRONTAL/LAT/OBL LT / PROCEDURE REASON: Finger pain, left * * * * Physician Interpretation * * * * EXAM TITLE: XR DIGIT 3V FRONTAL/LAT/OBL LT EXAM DATE/TIME: 11/29/2022 12:44 PM COMPARISON: None. CLINICAL INDICATION/HISTORY: Finger pain. TECHNIQUE: PA, lateral and oblique views of the third digit of the left hand are presented. FINDINGS: No fractures or other bony abnormalities are noted. The joint spaces are well preserved. The mineralization of the bones is normal. There is no significant soft tissue swelling. DIVISION OF RADIOLOGY Provider, Cc Artemio [facility] - 11/29/2022 * * *Final Report* * * DATE OF EXAM: Nov 29 2022 12:44PM [id number] - XR DIGIT 3V FRONTAL/LAT/OBL LT / PROCEDURE REASON: Finger pain, left * * * * Physician Interpretation * * * * EXAM TITLE: XR DIGIT 3V FRONTAL/LAT/OBL LT EXAM DATE/TIME: 11/29/2022 12:44 PM COMPARISON: None. CLINICAL INDICATION/HISTORY: Finger pain. TECHNIQUE: PA, lateral and oblique views of the third digit of the left hand are presented. FINDINGS: No fractures or other bony abnormalities are noted. The joint spaces are well preserved. The mineralization of the bones is normal. There is no significant soft tissue swelling. IMPRESSION IMPRESSION: Negative 3 views of the third digit. Pharmacy Services Director: COLLINS Transcribe Date/Time: Nov 29 2022 12:50P Dictated by : SHIRIN ANGEL MD This examination was interpreted and the report reviewed and electronically signed by: SHIRIN ANGEL MD on Nov 29 2022 12:52PM EST [facility] Radiology Study observation (narrative) [facility] XR Finger - left AP and Late ral and obliqueOrdered By: Ccf Provider on 11-29-2022 [facility] Absolute lymphocyte countOrd ered By: ED PROVIDER on 10-06-2022 Lymphocytes Auto (Unsp spec) [#/Vol] 3.23 10*3/uL 0.83-4.51 [facility] Basophil percentageOrdered B y: ED PROVIDER on 10-06-2022 Basophils/100 WBC (Bld) 0.4 % 0-1 [facility] Chloride [Moles/Vol] 106 mmol/L 98-[address] [facility] Eosinophils/100 WBC (Bld) 1.6 % 0-5 [facility] Glucose [Mass/Vol] 80 mg/dL 74-106 [facility] Neutrophils (Bld) [#/Vol] 9.0 10*3/uL 2.0-7.7 [facility] Neutrophils/100 WBC (Bld) 67.4 % 47-70 [facility] Potassium [Moles/Vol] 4.1 mmol/L 3.5-5.1 [facility] Sodium [Moles/Vol] 139 mmol/L 136-145 [facility] WBC (Bld) [#/Vol] 13.4 10*3/uL 4.4-11.0 [facility] Basophil percentageOrdered B y: Dr. Pederson on 10-06-2022 Basophil percentage 0 SEEN /hpf 0-5 [facility] Beta hCG serum qualOrdered B y: Dr. Pederson on 10-06-2022 Beta HCG ( test) Ql Negative [facility] Bilirubin Test strip Ql (U)O rdered By: Dr. Pederson on 10-06-2022 Bilirubin Ql (U) Negative Negative [facility] Blood erythrocytes count (nu mber/volume)Ordered By: ED PROVIDER on 10-06-2022 RBC (Bld) [#/Vol] 3.98 10*6/uL 4.2-5.4 [facility] Blood hemoglobin measurement (mass/volume)Ordered By: ED PROVIDER on 10-06-2022 Hemoglobin (Bld) [Mass/Vol] 13.6 g/dL 12.0-15.0 [facility] Blood lymphocytes/100 leukoc ytesOrdered By: ED PROVIDER on 10-06-2022 Lymphocytes/100 WBC (Bld) 24.1 % 19-41 [facility] Blood monocytes/100 leukocyt esOrdered By: ED PROVIDER on 10-06-2022 Monocytes/100 WBC (Bld) 6.0 % 0-10 [facility] Blood platelet mean volumeOr dered By: ED PROVIDER on 10-06-2022 Platelet mean volume (Bld) [Entitic vol] 10.2 fL 6.2-12.0 [facility] Determination of erythrocyte mean corpuscular volume (MCV)Ordered By: ED PROVIDER on 10-06-2022 MCV (RBC) [Entitic vol] 99.0 fL 81-99 [facility] Hematocrit Auto (Bld) [Volum e fraction]Ordered By: ED PROVIDER on 10-06-2022 Hematocrit (Bld) [Volume fraction] 39.4 % 37-47 [facility] Ketones Test strip Ql (U)Ord ered By: Dr. Pederson on 10-06-2022 Ketones Ql (U) Negative Negative [facility] Laboratory - Chemistry and C hemistry - challengeOrdered By: ED PROVIDER on 10-06-2022 CO2 [Moles/Vol] 27.0 mmol/L 21.0-32.0 [facility] Urea nitrogen/Creatinine [Mass ratio] 19.1 mg/mg 10-20 [facility] Laboratory - Hematology and Cell countsOrdered By: ED PROVIDER on 10-06-2022 Erythrocyte distribution width (RBC) [Entitic vol] 43.5 fL 35.1-43.9 [facility] Erythrocyte distribution width (RBC) [Ratio] 11.9 % 11.6-14.6 [facility] Immature granulocytes/100 WBC (Bld) 0.500 % 0.0-0.9 [facility] Comment on above: IG% - Immature Granu locytes (promyelocytes, myelocytes and metamyelocytes) > 1% indicates that a LEFT SHIFT is Present. MCH (RBC) [Entitic mass] 34.2 pg 27.0-32.0 [facility] Nucleated RBC/100 WBC (Bld) [Ratio] 0 % 0-5 [facility] MCHC Auto (RBC) [Mass/Vol]Or dered By: ED PROVIDER on 10-06-2022 MCHC (RBC) [Mass/Vol] 34.5 g/dL 32-36 [facility] Mucus LM Ql (Urine sed)Order ed By: Dr. Pederson on 10-06-2022 Mucus Ql (Urine sed) 0 SEEN /hpf [facility] Nitrite Test strip Ql (U)Ord ered By: Dr. Pederson on 10-06-2022 Nitrite Ql (U) Negative Negative [facility] No Panel InformationOrdered By: ED PROVIDER on 10-06-2022 Estimated Creatinine Clearance Calc 87.58 ml/min [facility] Estimated GFR (MDRD) Amer 112 mL/min >60 [facility] Comment on above: GFR Calc Estimated GFR (MDRD) Non-Af Amer 93 mL/min >60 [facility] Comment on above: Non- GFR Calc Platelets bldOrdered By: ED PROVIDER on 10-06-2022 Platelets (Bld) [#/Vol] 221 10*3/uL 150-450 [facility] Protein Test strip Ql (U)Ord ered By: Dr. Pederson on 10-06-2022 Protein Ql (U) Negative Negative [facility] Serum or plasma calcium osiris urement (mass/volume)Ordered By: ED PROVIDER on 10-06-2022 Calcium [Mass/Vol] 9.1 mg/dL 8.5-10.1 [facility] Serum or plasma creatinine m easurement (mass/volume)Ordered By: ED PROVIDER on 10-06-2022 Creatinine [Mass/Vol] 0.73 mg/dL 0.55-1.02 [facility] Comment on above: The validity of the calculated GFR & GFRAA in patients over 70 years has not been determined. Clinical correlation is essential. Serum or plasma urea nitroge n measurement (mass/volume)Ordered By: ED PROVIDER on 10-06-2022 Urea nitrogen [Mass/Vol] 14 mg/dL 7-18 [facility] Squamous epithelial cells de tection in urine sediment by light microscopyOrdered By: Dr. Pederson on 10-06-2022 Epithelial cells.squamous LM Ql (Urine sed) 0-5 SEEN /hpf 5-10 [facility] Thin prep Papanicolaou smear with manual screeningOrdered By: ED PROVIDER on 10-06-2022 Thin prep Papanicolaou smear with manual screening 6 5-15 [facility] UA DIP, URINE (POC)on 2021 BILIRUBIN UA (POCT) Negative Negative [facility] CLARITY UA (POCT) Clear [facility] COLOR UA (POCT) Yellow [facility] GLUCOSE UA (POCT) Negative Negative mg/dL [facility] HEMOGLOBIN/BLOOD UA (POCT) Negative Negative [facility] KETONE UA (POCT) Negative Negative mg/dL [facility] LEUKOCYTES UA (POCT) Negative Negative [facility] NITRITE UA (POCT) Negative Negative [facility] PH UA (POCT) 6.0 4.5 - 8.0 [facility] Protein Ql (U) Negative Negative mg/dL [facility] SPECIFIC GRAVITY UA (POCT) >=1.030 1.005 - 1.030 [facility] UROBILINOGEN UA (POCT) 0.2 E.U./dL Juliette l E.U./dL [facility] Urine blood detectionOrdered By: Dr. Pederson on 10-06-2022 RBC Ql (U) Negative Negative [facility] RBC Ql (U) 0 SEEN /hpf 0-5 [facility] Urine clarityOrdered By: Dr. Pederson on 10-06-2022 Clarity (U) Clear Clear [facility] Urine color determinationOrd ered By: Dr. Pederson on 10-06-2022 Color (U) Straw Yellow [facility] Urine glucose detectionOrder ed By: Dr. Pederson on 10-06-2022 Glucose Ql (U) Normal mg/dl Normal [facility] Urine leukocyte esterase det ection by dipstickOrdered By: Dr. Pederson on 10-06-2022 Leukocyte esterase Test strip Ql (U) Negative Negative [facility] Urine pHOrdered By: Dr. Cornel wolf on 10-06-2022 pH (U) 6.0 [pH] 5.0 - 8.0 [facility] Urine sediment bacteria coun t by microscopy (number/high power field)Ordered By: Dr. Pederson on 10-06-2022 Bacteria LM.HPF (Urine sed) [#/Area] 0 /[HPF] None Seen [facility] Urine specific gravity measu rementOrdered By: Dr. Pederson on 10-06-2022 Specific gravity (U) [Rel density] 1.015 1.002-1.030 [facility] Urobilinogen Auto test strip Ql (U)Ordered By: Dr. Pederson on 10-06-2022 Urobilinogen Ql (U) Normal mg/dl Normal [facility] US CHEST WALL/SOFT TISSUEon 07-05-2022 US CHEST WALL/SOFT TISSUE * * *Final Report* * * DATE OF EXAM: Jul 05 2022 3:49PM JUAN DIEGOU [id number] - US CHEST WALL/SOFT TISSUE / PROCEDURE REASON: Soft tissue mass * * * * Physician Interpretation * * * * EXAM TITLE: US CHEST WALL/SOFT TISSUE DATE: 07/05/2022 INDICATION: Palpable abnormality below the left breast. COMPARISON: None. All images are captured and stored in a permanent archive. Sonographic imaging at site of patient's complaint of abnormality shows a 1.0 x 0.9 x 0.9 cm focal echogenic nodule within the subcutaneous fat. No other abnormality noted in this area. IMPRESSION: Solid homogeneously echogenic nodule in the subcutaneous fat at site of patient's complaint. It most likely represents a lipoma. Clinical correlation and follow-up are recommended. Pharmacy Services Director: [facility] Transcribe Date/Time: Jul 07 2022 3:39P Dictated by : JOSE SARGENT MD This examination was interpreted and the report reviewed and electronically signed by: JOSE SARGENT MD on Jul 07 2022 3:41PM EST [id number] Normal [facility] US SOFT TISSUE ABDOMENon US SOFT TISSUE ABDOMEN * * *Final Report * * * DATE OF EXAM: Jul 05 2022 3:49PM [facility] 1268 - US SOFT TISSUE ABDOMEN / PROCEDURE REASON: Soft tissue mass * * * * Physician Interpretation * * * * EXAMINATION: US SOFT TISSUE ABDOMEN CLINICAL HISTORY: Soft tissue mass Comparison: None RESULT: Grayscale and color Doppler images of the area of concern in the left lateral abdominal soft tissues were obtained and archived. In the area of clinical concern there is a questionable 4 mm hyperechoic focus in the subcutaneous fat just under the skin. Otherwise, no evidence of a mass. IMPRESSION: In the area of clinical concern there is a questionable 4 mm hyperechoic focus in the subcutaneous fat just under the skin. This is of uncertain clinical significance or etiology, possible small sebaceous cyst, fat necrosis, lipoma, or hematoma. Otherwise, no evidence of a mass. Please correlate with size and depth of the palpable mass and obtained MRI as clinically indicated for a mass that is larger than was found by ultrasound or if mass is growing. Pharmacy Services Director: [facility] Transcribe Date/Time: Jul 07 2022 3:44P Dictated by : SHASHANK JOHNSON MD This examination was interpreted and the report reviewed and electronically signed by: SHASHANK JOHNSON MD on Jul 07 2022 3:50PM EST [id number] [facility] CNPNon 04-26-2022 CNPN Telephone (AGCARD) JOAN FOLEY ([id number]) 1980 F Date Time Provider Department 04/26/22 JOSE HAYES During your visit today, we recorded the following information about you: Lindsay Reid LPN 04/26/2022 10:08 AM Signed Last seen 03/02/2021 in [place]. Please call patient with over due appointment. CHRIS Aldana RN 04/27/2022 4:30 PM Addendum Left pt message on identified voicemail to call back and schedule appt in Cardiology. Please schedule follow up with Dr. Hayes or Lindsay Dean when pt calls back and close encounter. KB Javier 05/04/2022 8:43 AM Signed Scheduled pt on 10/25/21 at 3:40 pm, for a follow-up in cardiology. Allergies As of Date: 04/26/2022 Noted Allergy Reaction PENICILLINS 06/24/2005 4 - Hives 10 - Anaphylaxis 12 - Shortness of Breath CHANTIX (VARENICLINE) 08/24/2016 14 - Other: See Comments Comments: Mood changes (irritability), flu like symptoms, body aching CONTRAST DYE (IODINE) 01/12/2022 4 - Hives 7 - Swelling Demerol (MEPERIDINE (PF)) 05/14/2018 14 - Other: See Comments Comments: Nausea LATEX 06/24/2005 14 - Other: See Comments Comments: my skin starts pealing off MORPHINE 10/26/2019 4 - Hives 9 - Itching PROPOXYPHENE 10/30/2018 5 - Intolerance Date Reviewed: 04/08/2022 Reviewed by: Nicol Maradiaga LPN - Fully Assessed Reason for Visit: Appointment [186] Prescriptions as of 05/04/2022 - dilTIAZem CD (CARDIZEM CD, CARTIA XT) 120 mg 24 hr capsule TAKE 1 CAPSULE BY MOUTH EVERY DAY - omeprazole (PRILOSEC) 40 mg capsule Take 1 capsule by mouth once daily. - cholecalciferol, Vitamin D3, (VITAMIN D3) 1,250 mcg (50,000 unit) cap capsule Take 1 capsule by mouth one time a week. - gabapentin (NEURONTIN) 300 mg capsule Take 1 capsule by mouth daily at bedtime for 90 days. - colestipol (COLESTID) 5 gram packet Take 5 g by mouth twice daily. - amitriptyline (ELAVIL) 25 mg tablet Take 1 tablet by mouth daily at bedtime. - ondansetron orally disintegrating (ZOFRAN ODT) 4 mg disintegrating tablet Take 1 tablet by mouth daily at bedtime. - pantoprazole DR (PROTONIX) 40 mg tablet Take 1 tablet by mouth daily before breakfast. Take on empty stomach, 1/2 hr before meal. - buPROPion XL (WELLBUTRIN XL) 150 mg 24 hr tablet Take 2 tablets by mouth once daily. - traZODone (DESYREL) 50 mg tablet Take 1 tablet by mouth daily at bedtime. - hydrOXYzine HCl (ATARAX) 25 mg tablet Take 1 tablet by mouth every 6 hours as needed for itching/rash. - losartan (COZAAR) 50 mg tablet Take 1 tablet by mouth once daily. - liraglutide (SAXENDA) 3 mg/0.5 mL (18 mg/3 mL) pen injector Inject 0.6 mg subcutaneously once daily. - furosemide (LASIX) 20 mg tablet TAKE 1 TABLET BY MOUTH EVERY DAY - potassium chloride (K-TAB) 10 mEq tablet TAKE 1 TABLET BY MOUTH DAILY WITH BREAKFAST. TAKE WITH LASIX - meloxicam (MOBIC) 15 mg tablet Take 1 tablet by mouth once daily. With food. - rizatriptan (MAXALT) 10 mg tablet Take at onset of headache one pill, may repeat in 2 hours, not more than 2 pills a day Problem List As Of Date 04/26/2022 Noted Resolved Pain in joint, pelvic region and thigh [M25.559]01/20/2008 09/28/2016 Abdominal pain, right upper quadrant [R10.11] 04/24/2014 09/28/2016 Fever [R50.9] 05/22/2014 09/28/2016 Thrush [B37.0] 05/30/2014 09/28/2016 Insomnia [G47.00] 07/31/2014 Vitamin D deficiency [E55.9] 12/22/2015 Ganglion cyst of dorsum of right wrist [M67.431]04/22/2016 Other chest pain [R07.89] 05/03/2016 Weakness of right arm [R29.898] 05/03/2016 Chronic fatigue [R53.82] 05/03/2016 Tobacco abuse [Z72.0] 05/03/2016 Trigger thumb of right hand [M65.311] 07/26/2016 Right carpal tunnel syndrome [G56.01] 07/26/2016 Postoperative pain [G89.18] 11/02/2018 Obesity, Class I, BMI 30-34.9 [E66.9] 11/04/2018 Hepatic adenoma [D13.4] 12/21/2018 Intractable abdominal pain [R10.9] 10/27/2019 Hypertension [I10] Nonsustained ventricular tachycardia (HCC) [I47*08/04/2020 Encounter Status:Closed by LINDSAY REID on 04/26/22 [facility] CBC with Auto Differentialon 03-27-2022 Absolute Baso # 0.0 10*3/uL 0.0 - 0.2 10*3/uL [facility] Work Phone: Absolute Neut # 5.4 10*3/uL 1.8 - 7.0 10*3/uL [facility] Work Phone: Basophils/100 WBC (Bld) 0.5 % 0.0 - 2.0 % [facility] Work Phone: Eosinophils (Bld) [#/Vol] 0.2 10*3/uL 0.0 - 0.5 10*3/uL [facility] Work Phone: Eosinophils/100 WBC (Bld) 2.2 % 1.0 - 6.0 % [facility] Work Phone: Granulocytes/100 WBC (Bld) 69.2 % 40.0 - 80.0 % [facility] Work Phone: Hematocrit (Bld) [Volume fraction] 37.8 % 35.0 - 47.0 % [facility] Work Phone: Hemoglobin (Bld) [Mass/Vol] 12.6 g/dL 11.7 - 16.0 g/dL [facility] Work Phone: Lymphocytes (Bld) [#/Vol] 1.6 10*3/uL 1.0 - 4.3 10*3/uL [facility] Work Phone: [phone] Lymphocytes/100 WBC (Bld) 20.1 % 20.0 - 40.0 % [email or web address] Work Phone: 1 MCH (RBC) [Entitic mass] 32.7 pg 26.0 - 34.0 pg [email or web address] Work Phone: MCHC (RBC) [Mass/Vol] 33.5 % 32.0 - 36.0 % [email or web address] Work Phone: MCV (RBC) [Entitic vol] 97.8 fL 79.0 - 98.0 fL [email or web address] Work Phone: Monocytes (Bld) [#/Vol] 0.6 10*3/uL 0.0 - 0.8 10*3/uL [email or web address] Work Phone: Monocytes/100 WBC (Bld) 8.0 % 2.0 - 10.0 % [employer] Phone: Platelet distribution width (Bld) [Ratio] 12.7 % 11.5 - 14.5 % [email or web address] Work Phone: Platelet mean volume (Bld) [Entitic vol] 8.4 fL 7.4 - 12.4 fL [email or web address] Work Phone: Comment on above: MPV is a calculated measurement using platelet volume ratio. Platelets (Bld) [#/Vol] 211 10*3/uL 140 - 440 10*3/uL [email or web address] Work Phone: RBC (Bld) [#/Vol] 3.86 10*6/uL 3.80 - 5.2 0 10*6/uL [email or web address] Work Phone: WBC (Bld) [#/Vol] 7.8 10*3/uL 3.6 - 10.7 10*3/uL [email or web address] Work Phone: Test Performed by [facility], [address] [place] [id number] [facility] [employer] [facility] [email or web address] Work Phone: Hemogram w/ Autodiffon 03-27 Abs Baso Cnt 0.0 10*3/uL Normal 0.0-0.2 [facility] Comment on above: Performed By: #### H EMDF ####[address] Abs Neutrophile Cnt 5.4 10*3/uL Normal 1.8-7.0 [facility] Comment on above: Performed By: #### H EMDF ####[address] Basophils/100 WBC (Bld) 0.5 % Normal 0.0-2.0 [facility] Comment on above: Performed By: #### H EMDF ####[address] Eosinophils (Bld) [#/Vol] 0.2 10*3/uL Normal 0.0-0.5 [facility] Comment on above: Performed By: #### H EMDF ####[address] Eosinophils/100 WBC (Bld) 2.2 % Normal 1.0-6.0 [facility] Comment on above: Performed By: #### H EMDF ####[address] Erythrocyte distribution width (RBC) [Ratio] 12.7 % Normal 11.5-14.5 [facility] Comment on above: Performed By: #### H EMDF ####[address] Granulocytes/100 WBC (Bld) 69.2 % Normal 40.0-80.0 [facility] Comment on above: Performed By: #### H EMDF ####[address] Hematocrit (Bld) [Volume fraction] 37.8 % Normal 35.0-47.0 [facility] Comment on above: Performed By: #### H EMDF ####[address] Hemoglobin (Bld) [Mass/Vol] 12.6 g/dL Normal 11.7-16.0 [facility] Comment on above: Performed By: #### H EMDF ####[address] Lymphocytes (Bld) [#/Vol] 1.6 10*3/uL Normal 1.0-4.3 [facility] Comment on above: Performed By: #### H EMDF ####[address] Lymphocytes/100 WBC (Bld) 20.1 % Normal 20.0-40.0 [facility] Comment on above: Performed By: #### H EMDF ####[address] MCH (RBC) [Entitic mass] 32.7 pg Normal 26.0-34.0 [facility] Comment on above: Performed By: #### H EMDF ####[address] MCHC 33.5 % Normal 32.0-36.0 [facility] Comment on above: Performed By: #### H EMDF ####[address] MCV (RBC) [Entitic vol] 97.8 fL Normal 79.0-98.0 [facility] Comment on above: Performed By: #### H EMDF ####[address] Monocytes (Bld) [#/Vol] 0.6 10*3/uL Normal 0.0-0.8 [facility] Comment on above: Performed By: #### H EMDF ####[address] Monocytes/100 WBC (Bld) 8.0 % Normal 2.0-10.0 [facility] Comment on above: Performed By: #### H EMDF ####[address] Platelet mean volume (Bld) [Entitic vol] 8.4 fL Normal 7.4-12.4 [facility] Comment on above: Result Comment: MPV is a calculated measurement using platelet volume ratio. Performed By: #### H EMDF ####[id number] [place] [address] Platelets (Bld) [#/Vol] 211 10*3/uL Normal 140-440 [facility] Comment on above: Performed By: #### H EMDF ####[address] RBC (Bld) [#/Vol] 3.86 10*6/uL Normal 3.80-5.20 [facility] Comment on above: Performed By: #### H EMDF ####[id number] [place], [place] WBC (Bld) [#/Vol] 7.8 10*3/uL Normal 3.6-10.7 [facility] Comment on above: Performed By: #### H EMDF ####[address] [id number] CBC with Auto Differentialon 03-26-2022 Absolute Baso # 0.1 10*3/uL 0.0 - 0.2 10*3/uL [email or web address] Work Phone: Absolute Neut # 5.1 10*3/uL 1.8 - 7.0 10*3/uL [email or web address] Work Phone: Basophils/100 WBC (Bld) 0.7 % 0.0 - 2.0 % [email or web address] Work Phone: [phone] Eosinophils (Bld) [#/Vol] 0.2 10*3/uL 0.0 - 0.5 10*3/uL [email or web address] Work Phone: Eosinophils/100 WBC (Bld) 2.4 % 1.0 - 6.0 % [email or web address] Work Phone: [phone] Granulocytes/100 WBC (Bld) 67.1 % 40.0 - 80.0 % [email or web address] Work Phone: Hematocrit (Bld) [Volume fraction] 38.1 % 35.0 - 47.0 % [email or web address] Work Phone: Hemoglobin (Bld) [Mass/Vol] 12.7 g/dL 11.7 - 16.0 g/dL [email or web address] Work Phone: Lymphocytes (Bld) [#/Vol] 1.6 10*3/uL 1.0 - 4.3 10*3/uL [email or web address] Work Phone: Lymphocytes/100 WBC (Bld) 20.8 % 20.0 - 40.0 % [email or web address] Work Phone: MCH (RBC) [Entitic mass] 32.5 pg 26.0 - 34.0 pg [employer] Phone: MCHC (RBC) [Mass/Vol] 33.4 % 32.0 - 36.0 % [employer] Phone: MCV (RBC) [Entitic vol] 97.5 fL 79.0 - 98.0 fL [employer] Phone: Monocytes (Bld) [#/Vol] 0.7 10*3/uL 0.0 - 0.8 10*3/uL [employer] Phone: Monocytes/100 WBC (Bld) 9.0 % 2.0 - 10.0 % [employer] Phone: Platelet distribution width (Bld) [Ratio] 12.9 % 11.5 - 14.5 % [employer] Phone: Platelet mean volume (Bld) [Entitic vol] 8.0 fL 7.4 - 12.4 fL [employer] Phone: Comment on above: MPV is a calculated measurement using platelet volume ratio. Platelets (Bld) [#/Vol] 205 10*3/uL 140 - 440 10*3/uL [email or web address] Work Phone: RBC (Bld) [#/Vol] 3.90 10*6/uL 3.80 - 5.2 0 10*6/uL [email or web address] Work Phone: WBC (Bld) [#/Vol] 7.6 10*3/uL 3.6 - 10.7 10*3/uL [facility] Work Phone: Test Performed by [facility], [address] [place] [id number] [place] [address] [facility] Work Phone: CR Chest Portableon 03-26-20 22 CR Chest Portable Patient Name: JOAN FOLEY Diagnostic Radiology ACCESSION EXAM DATE/TIME PROCEDURE ORDERING PROVIDER [id number] 03/26/2022 13:10 EDT CR Chest Portable [id number] -BAIRON DURÁN CPT code 66338 Reason For Exam (CR Chest Portable) dyspnea; R upper chest pain Report CHEST - PORTABLE: CLINICAL INDICATION: Dyspnea with right upper chest pain. . TECHNIQUE: Portable AP COMPARISON: 08/07/2018 FINDINGS/IMPRESSION: Limitations: No significant limitations. Lines, tubes, and devices: None Cardiomediastinal silhouette: Heart size is within normal limits. Lungs/Pleura: Slightly low lung volumes with mild right greater than left basilar atelectasis suspected. No sizable pleural effusions. No pneumothorax. Osseous structures: Mild degenerative spondylosis in the visualized spine. Soft tissues: No soft tissue abnormality is detected. Report Dictated on Final Dictated: 03/26/2022 1:18 pm Dictating Physician: MD STEEL VLADIMIR Signed Date and Time: 03/26/2022 1:24 pm Signed by: MD STEEL VLADIMIR Transcribed Date and Time: 03/26/2022 1:18 Normal [facility] Hemogram w/ Autodiffon 03-26 Abs Baso Cnt 0.1 10*3/uL Normal 0.0-0.2 [facility] Comment on above: Performed By: #### H EMDF #### [address] [id number] Abs Neutrophile Cnt 5.1 10*3/uL Normal 1.8-7.0 [facility] Comment on above: Performed By: #### H EMDF #### [address], [place] Basophils/100 WBC (Bld) 0.7 % Normal 0.0-2.0 [facility] Comment on above: Performed By: #### H EMDF #### [facility] [address] [place], [place] Eosinophils (Bld) [#/Vol] 0.2 10*3/uL Normal 0.0-0.5 [facility] Comment on above: Performed By: #### H EMDF #### [address] [place], [place] Eosinophils/100 WBC (Bld) 2.4 % Normal 1.0-6.0 [facility] Comment on above: Performed By: #### H EMDF #### [address] [address] [place], [place] Erythrocyte distribution width (RBC) [Ratio] 12.9 % Normal 11.5-14.5 [facility] Comment on above: Performed By: #### H EMDF #### [address] [address] [place], [place] Granulocytes/100 WBC (Bld) 67.1 % Normal 40.0-80.0 [facility] Comment on above: Performed By: #### H EMDF #### [address] [place], [place] Hematocrit (Bld) [Volume fraction] 38.1 % Normal 35.0-47.0 [facility] Comment on above: Performed By: #### H EMDF #### [address] [place], [place] Hemoglobin (Bld) [Mass/Vol] 12.7 g/dL Normal 11.7-16.0 [facility] Comment on above: Performed By: #### H EMDF #### [address] [place], [place] Lymphocytes (Bld) [#/Vol] 1.6 10*3/uL Normal 1.0-4.3 [facility] Comment on above: Performed By: #### H EMDF #### [address] [place], [place] Lymphocytes/100 WBC (Bld) 20.8 % Normal 20.0-40.0 [facility] Comment on above: Performed By: #### H EMDF #### [address] [address] [place], [place] MCH (RBC) [Entitic mass] 32.5 pg Normal 26.0-34.0 [facility] Comment on above: Performed By: #### H EMDF #### [address] [place], [place] MCHC 33.4 % Normal 32.0-36.0 [facility] Comment on above: Performed By: #### H EMDF #### [address] MCV (RBC) [Entitic vol] 97.5 fL Normal 79.0-98.0 [facility] Comment on above: Performed By: #### H EMDF #### [address] [place], [place] Monocytes (Bld) [#/Vol] 0.7 10*3/uL Normal 0.0-0.8 [facility] Comment on above: Performed By: #### H EMDF #### [address] Monocytes/100 WBC (Bld) 9.0 % Normal 2.0-10.0 [facility] Comment on above: Performed By: #### H EMDF #### [address] [place], [place] Platelet mean volume (Bld) [Entitic vol] 8.0 fL Normal 7.4-12.4 [facility] Comment on above: Result Comment: MPV is a calculated measurement using platelet volume ratio. Performed By: #### H EMDF #### [address] Platelets (Bld) [#/Vol] 205 10*3/uL Normal 140-440 [facility] Comment on above: Performed By: #### H EMDF #### [address] [place] [address] RBC (Bld) [#/Vol] 3.90 10*6/uL Normal 3.80-5.20 [facility] Comment on above: Performed By: #### H EMDF #### [facility] [address] [place] [address] WBC (Bld) [#/Vol] 7.6 10*3/uL Normal 3.6-10.7 [facility] Comment on above: Performed By: #### H EMDF #### [facility] [address] [place] [address] XR CHEST PORTABLEon 03-26-20 Patient Name: JOAN FOLEY Diagnostic Radiology ACCESSION EXAM DATE/TIME PROCEDURE ORDERING PROVIDER [id number] 03/26/2022 13:10 EDT CR Chest Portable [id number] BAIRON ALFARO CPT code 94524 Reason For Exam (CR Chest Portable) dyspnea; R upper chest pain Report CHEST - PORTABLE: CLINICAL INDICATION: Dyspnea with right upper chest pain. . TECHNIQUE: Portable AP COMPARISON: 08/07/2018 FINDINGS/IMPRESSION: Limitations: No significant limitations. Lines, tubes, and devices: None Cardiomediastinal silhouette: Heart size is within normal limits. Lungs/Pleura: Slightly low lung volumes with mild right greater than left basilar atelectasis suspected. No sizable pleural effusions. No pneumothorax. Osseous structures: Mild degenerative spondylosis in the visualized spine. Soft tissues: No soft tissue abnormality is detected. Report Dictated on --- Final --- Dictated: 03/26/2022 1:18 pm Dictating Physician: MD STEEL VLADIMIR Signed Date and Time: 03/26/2022 1:24 pm Signed by: MD STEEL VLADIMIR Transcribed Date and Time: 03/26/2022 1:18 [facility], Unknown Provider - 03/26/2022 Patient Name: JOAN FOLEY Diagnostic Radiology ACCESSION EXAM DATE/TIME PROCEDURE ORDERING PROVIDER [id number] 03/26/2022 13:10 EDT CR Chest Portable [id number] BAIRON ALFARO CPT code 05346 Reason For Exam (CR Chest Portable) dyspnea; R upper chest pain Report CHEST - PORTABLE: CLINICAL INDICATION: Dyspnea with right upper chest pain. . TECHNIQUE: Portable AP COMPARISON: 08/07/2018 FINDINGS/IMPRESSION: Limitations: No significant limitations. Lines, tubes, and devices: None Cardiomediastinal silhouette: Heart size is within normal limits. Lungs/Pleura: Slightly low lung volumes with mild right greater than left basilar atelectasis suspected. No sizable pleural effusions. No pneumothorax. Osseous structures: Mild degenerative spondylosis in the visualized spine. Soft tissues: No soft tissue abnormality is detected. Report Dictated on --- Final --- Dictated: 03/26/2022 1:18 pm Dictating Physician: MD STEEL VLADIMIR Signed Date and Time: 03/26/2022 1:24 pm Signed by: MD STEEL VLADIMIR Transcribed Date and Time: 03/26/2022 1:18 [facility] Work Phone: Radiology Study observation (narrative) [facility] Work Phone: XR CHEST PORTABLEOrdered By: Unknown Result on 03-26-2022 [facility] CBC with Auto Differentialon 03-25-2022 Absolute Baso # 0.0 10*3/uL 0.0 - 0.2 10*3/uL [facility] Work Phone: Absolute Neut # 5.5 10*3/uL 1.8 - 7.0 10*3/uL [facility] Work Phone: Basophils/100 WBC (Bld) 0.6 % 0.0 - 2.0 % [facility] Work Phone: Eosinophils (Bld) [#/Vol] 0.2 10*3/uL 0.0 - 0.5 10*3/uL [facility] Work Phone: Eosinophils/100 WBC (Bld) 2.4 % 1.0 - 6.0 % [facility] Work Phone: Granulocytes/100 WBC (Bld) 69.5 % 40.0 - 80.0 % [email or web address] Work Phone: 1 Hematocrit (Bld) [Volume fraction] 39.0 % 35.0 - 47.0 % [employer] Phone: Hemoglobin (Bld) [Mass/Vol] 13.3 g/dL 11.7 - 16.0 g/dL [employer] Phone: Interpretation and review of laboratory results Abnormal [email or web address] Work Phone: Lymphocytes (Bld) [#/Vol] 1.4 10*3/uL 1.0 - 4.3 10*3/uL [employer] Phone: Lymphocytes/100 WBC (Bld) 18.1 % Low 20.0 - 40.0 % [employer] Phone: MCH (RBC) [Entitic mass] 33.2 pg 26.0 - 34.0 pg [employer] Phone: MCHC (RBC) [Mass/Vol] 34.2 % 32.0 - 36.0 % [employer] Phone: MCV (RBC) [Entitic vol] 97.2 fL 79.0 - 98.0 fL [employer] Phone: Monocytes (Bld) [#/Vol] 0.7 10*3/uL 0.0 - 0.8 10*3/uL [employer] Phone: Monocytes/100 WBC (Bld) 9.4 % 2.0 - 10.0 % [employer] Phone: Platelet distribution width (Bld) [Ratio] 12.8 % 11.5 - 14.5 % [employer] Phone: Platelet mean volume (Bld) [Entitic vol] 8.7 fL 7.4 - 12.4 fL [employer] Phone: Comment on above: MPV is a calculated measurement using platelet volume ratio. Platelets (Bld) [#/Vol] 185 10*3/uL 140 - 440 10*3/uL [email or web address] Work Phone: RBC (Bld) [#/Vol] 4.01 10*6/uL 3.80 - 5.2 0 10*6/uL [facility] Work Phone: WBC (Bld) [#/Vol] 7.8 10*3/uL 3.6 - 10.7 10*3/uL [facility] Work Phone: Test Performed by [facility], [facility] [place] [address] [facility] Work Phone: Comp Metabolic Panelon 03-25 ALP [Catalytic activity/Vol] 71 U/L Normal 38-126 [facility] Comment on above: Performed By: #### C MP3, HEMDF #### [address] ALT [Catalytic activity/Vol] 96 U/L High 0-34 [facility] Comment on above: Result Comment: The ALT test is performed by an updated assay method. Please note that the reference intervals have been changed and are now sex specific. Performed By: #### C MP3, HEMDF #### [address] [address] [place], [place] Calcium [Mass/Vol] 8.8 mg/dL Normal 8.4-10.4 [facility] Comment on above: Performed By: #### C MP3, HEMDF #### [address] [address] [place], [place] Glucose [Mass/Vol] 116 mg/dL High 70-100 [facility] Comment on above: Performed By: #### C MP3, HEMDF #### [address] [place] [address] Protein [Mass/Vol] 6.5 g/dL Normal 6.3-8.2 [facility] Comment on above: Performed By: #### C MP3, HEMDF #### [address] [place] [address] Urea nitrogen [Mass/Vol] 8 mg/dL Low 9-20 [facility] Comment on above: Performed By: #### C MP3, HEMDF #### [facility] [address] [place] [address] Anion gap [Moles/Vol] 7 mmol/L Normal 3-13 [facility] Comment on above: Performed By: #### C MP3, HEMDF #### [facility] [address] [place], [place] AST [Catalytic activity/Vol] 51 U/L High 15-46 [facility] Comment on above: Performed By: #### C MP3, HEMDF #### [facility] [address] [place], [place] Bilirubin [Mass/Vol] 0.5 mg/dL Normal 0.2-1.3 [facility] Comment on above: Performed By: #### C MP3, HEMDF #### [facility] [address] [place], [place] CO2 [Moles/Vol] 27 mmol/L Normal 22-30 [facility] Comment on above: Performed By: #### C MP3, HEMDF #### [facility] [address] [place], [place] Creatinine [Mass/Vol] 0.69 mg/dL Normal 0.52-1.25 [facility] Comment on above: Performed By: #### C MP3, HEMDF #### [facility] [address] [place], [place] eGFR OTHER > 90.0 Normal >60 [facility] Comment on above: Result Comment: KDIG O guidelines provide the following GFR categories: Stage GFR(ml/min/1.73 m2) Terms G1 >=90 Normal or high G2 60-89 Mildly decreased* G3a 45-59 Mildly to moderately decreased G3b 30-44 Moderately to severely decreased G4 15-29 Severely decreased G5 <15 Kidney failure *Relative to young adult level. In the absence of evidence of kidney damage, neither GFR category G1 nor G2 fulfill the criteria for CKD. The CKD-EPI equation is validated in individuals 18 years of age and older. Currently the best equation for estimating glomerular filtration rate (GFR) from serum creatinine in children is the Bedside Monterroso equation. It is less accurate in patients with extremes of muscle mass, restriction of dietary protein, ingestion of creatine, extra-renal metabolism of creatinine, or treatment with medications that affect renal tubular creatinine secretion. Performed By: #### C AMBERLY3, HEMDF #### [address] [place] [address] GFR/1.73 sq M.predicted among blacks MDRD (S/P/Bld) [Vol rate/Area] mL/min/{1.73_m2} Normal >60 [facility] Comment on above: Performed By: #### C MP3, HEMDF #### [address] [place] [address] Chloride [Moles/Vol] 102 mmol/L Normal 98-107 [facility] Comment on above: Performed By: #### C AMBERLY3, HEMDF #### [address] [place] [address] Potassium [Moles/Vol] 4.2 mmol/L Normal 3.5-5.1 [facility] Comment on above: Performed By: #### Jelani MP3, HEMDF #### [address] [place] [address] Sodium [Moles/Vol] 135 mmol/L Normal 135-145 [facility] Comment on above: Performed By: #### C MP3, HEMDF #### [address] [place] [address] Albumin [Mass/Vol] 3.9 g/dL Normal 3.5-5.0 [facility] Comment on above: Performed By: #### C MP3, HEMDF #### [address] [place] [address] Comprehensive Metabolic Pane paulino 03-25-2022 Albumin [Mass/Vol] 3.9 g/dL 3.5 - 5.0 g/dL [facility] Work Phone: ALP (Bld) [Catalytic activity/Vol] 71 U/L 38 - 126 U/L [facility] Work Phone: ALT [Catalytic activity/Vol] 96 U/L High 0 - 34 U/L [facility] Work Phone: Comment on above: The ALT test is perf ormed by an updated assay method. Please note that the reference intervals have been changed and are now sex specific. Anion gap [Moles/Vol] 7 mmol/L 3 - 13 mmol/L [facility] Work Phone: AST [Catalytic activity/Vol] 51 U/L High 15 - 46 U/L [facility] Work Phone: [phone] Bilirubin [Mass/Vol] 0.5 mg/dL 0.2 - 1 .3 mg/dL [facility] Work Phone: [phone] Calcium [Mass/Vol] 8.8 mg/dL 8.4 - 10. 4 mg/dL [facility] Work Phone: [phone] Chloride [Moles/Vol] 102 mmol/L 98 - 10 7 mmol/L [facility] Work Phone: [phone] CO2 [Moles/Vol] 27 mmol/L 22 - 30 mmol/L [facility] Work Phone: [phone] Creatinine [Mass/Vol] 0.69 mg/dL 0.52 - 1.25 mg/dL [facility] Work Phone: EGFR IF NonAfrican Australian >90.0 >60 mL/min [facility] Work Phone: Comment on above: KDIGO guidelines pro vide the following GFR categories: Stage GFR(ml/min/1.73 m2) Terms G1 >=90 Normal or high G2 60-89 Mildly decreased* G3a 45-59 Mildly to moderately decreased G3b 30-44 Moderately to severely decreased G4 15-29 Severely decreased G5 <15 Kidney failure *Relative to young adult level. In the absence of evidence of kidney damage, neither GFR category G1 nor G2 fulfill the criteria for CKD. The CKD-EPI equation is validated in individuals 18 years of age and older. Currently the best equation for estimating glomerular filtration rate (GFR) from serum creatinine in children is the Bedside Monterroso equation. It is less accurate in patients with extremes of muscle mass, restriction of dietary protein, ingestion of creatine, extra-renal metabolism of creatinine, or treatment with medications that affect renal tubular creatinine secretion. Free PSA/Total PSA [Mass fraction] 6.5 g/dL 6.3 - 8.2 g/dL [facility] Work Phone: GFR/1.73 sq M.predicted among blacks MDRD (S/P/Bld) [Vol rate/Area] mL/min/{1.73_m2} >60 mL/min [facility] Work Phone: Glucose [Mass/Vol] 116 mg/dL High 70 - 100 mg/dL [facility] Work Phone: [phone] Interpretation and review of laboratory results Abnormal [facility] Work Phone: [phone] Potassium [Moles/Vol] 4.2 mmol/L 3.5 - 5.1 mmol/L [facility] Work Phone: [phone] Sodium [Moles/Vol] 135 mmol/L 135 - 145 mmol/L [facility] Work Phone: [phone] Urea nitrogen (BldV) [Mass/Vol] 8 mg/dL Low 9 - 20 mg/dL [facility] Work Phone: Test Performed by [facility], [address] [place] [id number] [place] [address] LAB [facility] Work Phone: Hemogram w/ Autodiffon 03-25 Abs Baso Cnt 0.0 10*3/uL Normal 0.0-0.2 [facility] Comment on above: Performed By: #### C MP3, HEMDF #### [address] [address] Abs Neutrophile Cnt 5.5 10*3/uL Normal 1.8-7.0 [facility] Comment on above: Performed By: #### C MP3, HEMDF #### [address] [address] Basophils/100 WBC (Bld) 0.6 % Normal 0.0-2.0 [facility] Comment on above: Performed By: #### C MP3, HEMDF #### [address] [address] Eosinophils (Bld) [#/Vol] 0.2 10*3/uL Normal 0.0-0.5 [facility] Comment on above: Performed By: #### C MP3, HEMDF #### [facility] [address] [place] [address] Eosinophils/100 WBC (Bld) 2.4 % Normal 1.0-6.0 [facility] Comment on above: Performed By: #### C MP3, HEMDF #### [facility] [address] [place], [place] Erythrocyte distribution width (RBC) [Ratio] 12.8 % Normal 11.5-14.5 [facility] Comment on above: Performed By: #### C MP3, HEMDF #### [facility] [address] [place] [address] Granulocytes/100 WBC (Bld) 69.5 % Normal 40.0-80.0 [facility] Comment on above: Performed By: #### C MP3, HEMDF #### [facility] [address] [place], [place] Hematocrit (Bld) [Volume fraction] 39.0 % Normal 35.0-47.0 [facility] Comment on above: Performed By: #### C MP3, HEMDF #### [facility] [address] [place], [place] Hemoglobin (Bld) [Mass/Vol] 13.3 g/dL Normal 11.7-16.0 [facility] Comment on above: Performed By: #### C MP3, HEMDF #### [facility] [address] [place], [place] Lymphocytes (Bld) [#/Vol] 1.4 10*3/uL Normal 1.0-4.3 [facility] Comment on above: Performed By: #### C MP3, HEMDF #### [facility] [address] [place] [address] Lymphocytes/100 WBC (Bld) 18.1 % Low 20.0-40.0 [facility] Comment on above: Performed By: #### C MP3, HEMDF #### [facility] [address] [place], [place] MCH (RBC) [Entitic mass] 33.2 pg Normal 26.0-34.0 [facility] Comment on above: Performed By: #### C MP3, HEMDF #### [address] [place], [place] MCHC 34.2 % Normal 32.0-36.0 [facility] Comment on above: Performed By: #### C MP3, HEMDF #### [address] [place], [place] MCV (RBC) [Entitic vol] 97.2 fL Normal 79.0-98.0 [facility] Comment on above: Performed By: #### C MP3, HEMDF #### [address] [place], [place] Monocytes (Bld) [#/Vol] 0.7 10*3/uL Normal 0.0-0.8 [facility] Comment on above: Performed By: #### C MP3, HEMDF #### [address] [place], [place] Monocytes/100 WBC (Bld) 9.4 % Normal 2.0-10.0 [facility] Comment on above: Performed By: #### C MP3, HEMDF #### [address] [place], [place] Platelet mean volume (Bld) [Entitic vol] 8.7 fL Normal 7.4-12.4 [facility] Comment on above: Result Comment: MPV is a calculated measurement using platelet volume ratio. Performed By: #### C MP3, HEMDF #### [address] [place], [place] Platelets (Bld) [#/Vol] 185 10*3/uL Normal 140-440 [facility] Comment on above: Performed By: #### C MP3, HEMDF #### [address] RBC (Bld) [#/Vol] 4.01 10*6/uL Normal 3.80-5.20 [facility] Comment on above: Performed By: #### C MP3, HEMDF #### [address] [place] [address] WBC (Bld) [#/Vol] 7.8 10*3/uL Normal 3.6-10.7 [facility] Comment on above: Performed By: #### C MP3, HEMDF #### [facility] [address] [place] [address] Surgical Pathologyon 022 Surgical Pathology [id number] [facility] PATHOLOGY AND LABORATORY MEDICINE [facility] [place] [address] FINAL SURGICAL PATHOLOGY REPORT ___ NAME: JOAN FOELY : 1980 42 Y F BILLING NO.: [id number] LOCATION: [facility] 5132 01 PROCEDURE 03/23/2022 DATE: SURGEON: XOCHITL WALKER RN RECEIVED 03/23/2022 DATE: ATTENDING: JJ GREEN MD REPORT DATE: 04/28/2022 COPIES TO: MIREILLE VILLATORO MD ___ DIAGNOSIS: LIVER, BIOPSY - NON-NEOPLASTIC STEATOTIC HEPATIC PARENCHYMA, FIBROUS CAPSULE, AND NECROTIC TISSUE. NEGATIVE FOR VIABLE NEOPLASM. COMMENT: This case was sent for outside consultation at the [facility] provided by Cooper Saldivar M.D. [facility] performed reticulin, glutamine synthetase, and Beta-Catenin. The specimen was additionally sent for immunohistochemistry to [facility] to perform LFRB, LOLA, and CRP which was interpreted at the [facility]. They are unable to characterize the necrotic tissue present, but there is no diagnostic evidence of carcinoma present within the submitted tissue. Please correlate with radiographic and clinical findings. If there is a suspicious, remaining mass lesion, additional tissue sampling may be indicated due to necrosis/non-viable tissue fragments submitted in the current specimen. Please see his report for more detailed information ([id number]). AHD/AHD Signature> EMERALD RIVERA M.D. ___ CLINICAL INFORMATION: Liver adenoma SPECIMEN: LIVER, NEEDLE OR WEDGE BIOPSY FOR MASS ___ INTRAOPERATIVE CONSULTATION/FROZEN SECTION DIAGNOSIS: TOUCH PREP DIAGNOSIS: Inadequate, necrosis. Additional cores requested and placed in formalin. Dutch Rivera M.D., Josue Arredondo M.D. GROSS DESCRIPTION: Received in formalin, labeled liver biopsy, are four elongated segments of yellow-brown soft tissue cores and fragments each measuring <0.1 cm in diameter and vary in length from <0.1 to 1 cm, all wrapped and submitted in two cassettes. BSC/0RW Disclaimer: The following statement applies to all immunohistochemistry, in situ hybridization, molecular studies, and immunofluorescence testing. The use of one or more reagents in the above tests is regulated as an analyte specific reagent (ASR). These tests were developed and their performance characteristics determined by the clinical laboratories of [facility]. They have not been cleared by [...] negativity on decalcified specimens. Professional Performing Location: [address] [place] [address]. DEPARTMENT OF PATHOLOGY AND LABORATORY MEDICINE [place], [place] [address] [email or web address] Normal [facility] US BIOPSY LIVER PERCUTANEOUS on 03-23-2022 Patient Name: JOAN FOLEY Ultrasound ACCESSION EXAM DATE/TIME PROCEDURE ORDERING PROVIDER [id number] 03/23/2022 11:45 EDT US Biopsy Liver TG WALKER MARIANNE E CPT code 62999 [id number] Reason For Exam (US Biopsy Liver) known liver adenoma now increased in size, recommending biopsy per radiological read of MRI Report PROCEDURE: Image-guided biopsy Procedural Personnel Attending physician(s): Dr. Villatoro Indication: Known liver adenoma now increased in size Additional clinical history: None Complications: No immediate complications. IMPRESSION: Image-guided biopsy of right hepatic lobe lesion. Plan: Specimen(s) sent for evaluation. PROCEDURE SUMMARY: - Percutaneous ultrasound-guided coaxial core needle biopsy - Additional procedure(s): None PROCEDURE DETAILS: Pre-procedure Reference imaging for biopsy target: MRI from 03/20/2022 Consent: Informed consent for the procedure including risks, benefits and alternatives was obtained and time-out was performed prior to the procedure. Preparation: The site was prepared and draped using maximal sterile barrier technique including cutaneous antisepsis. Anesthesia/sedation Moderate sedation was provided under my supervision with patient monitored by a trained radiology nurse. Total sedation time of 30 ?minutes. Biopsy Local anesthesia was administered. Under ultrasound imaging guidance as stated in the procedure summary, the biopsy needle was advanced to Ultrasound Report the right hepatic lobe lesion and biopsy was performed. Coaxial needle: 17 gauge Core needle biopsy device: 18 gauge Bard Chandler Number of core specimens: Four On-site biopsy touch preparation: Yes Preliminary assessment of sample adequacy: Necrotic tissue. Additional such biopsies were not performed due to patient discomfort, need to expedite procedure. Needle removal The biopsy needle was removed and a sterile dressing was applied. Tract embolization: None Additional Details Additional description of procedure: None Equipment details: None Specimens removed: Biopsy samples as detailed above Estimated blood loss (mL): Less than 10 Report Dictated on --- Final --- Dictated: 03/23/2022 12:10 pm Dictating Physician: MD VILLATORO JAMES Signed Date and Time: 03/23/2022 12:11 pm Signed by: MD VILLATORO JAMES Transcribed Date and Time: 03/23/2022 12:10 [facility] Mireille Villatoro MD - 03/23/2022 Patient Name: JOAN FOLEY Ultrasound ACCESSION EXAM DATE/TIME PROCEDURE ORDERING PROVIDER [id number] 03/23/2022 11:45 EDT US Biopsy Liver TG WALKER MARIANNE E CPT code 79457 13305 Reason For Exam (US Biopsy Liver) known liver adenoma now increased in size, recommending biopsy per radiological read of MRI Report PROCEDURE: Image-guided biopsy Procedural Personnel Attending physician(s): Dr. Villatoro Indication: Known liver adenoma now increased in size Additional clinical history: None Complications: No immediate complications. IMPRESSION: Image-guided biopsy of right hepatic lobe lesion. Plan: Specimen(s) sent for evaluation. PROCEDURE SUMMARY: - Percutaneous ultrasound-guided coaxial core needle biopsy - Additional procedure(s): None PROCEDURE DETAILS: Pre-procedure Reference imaging for biopsy target: MRI from 03/20/2022 Consent: Informed consent for the procedure including risks, benefits and alternatives was obtained and time-out was performed prior to the procedure. Preparation: The site was prepared and draped using maximal sterile barrier technique including cutaneous antisepsis. Anesthesia/sedation Moderate sedation was provided under my supervision with patient monitored by a trained radiology nurse. Total sedation time of 30 ?minutes. Biopsy Local anesthesia was administered. Under ultrasound imaging guidance as stated in the procedure summary, the biopsy needle was advanced to Ultrasound Report the right hepatic lobe lesion and biopsy was performed. Coaxial needle: 17 gauge Core needle biopsy device: 18 gauge Bard Chandler Number of core specimens: Four On-site biopsy touch preparation: Yes Preliminary assessment of sample adequacy: Necrotic tissue. Additional such biopsies were not performed due to patient discomfort, need to expedite procedure. Needle removal The biopsy needle was removed and a sterile dressing was applied. Tract embolization: None Additional Details Additional description of procedure: None Equipment details: None Specimens removed: Biopsy samples as detailed above Estimated blood loss (mL): Less than 10 Report Dictated on --- Final --- Dictated: 03/23/2022 12:10 pm Dictating Physician: MD VILLATORO JAMES Signed Date and Time: 03/23/2022 12:11 pm Signed by: MD VILLATORO JAMES Transcribed Date and Time: 03/23/2022 12:10 [facility] Work Phone: Radiology Study observation (narrative) [facility] Work Phone: US BIOPSY LIVER PERCUTANEOUS Ordered By: Mireille Villatoro on 03-23-2022 [facility] Work Phone: US Biopsy Liveron 03-23-2022 US Biopsy Liver Patient Name: JOAN FOLEY Ultrasound ACCESSION EXAM DATE/TIME PROCEDURE ORDERING PROVIDER [id number] 03/23/2022 11:45 EDT US Biopsy Liver TG WALKER MARIANNE E CPT code 73069 [id number] Reason For Exam (US Biopsy Liver) known liver adenoma now increased in size, recommending biopsy per radiological read of MRI Report PROCEDURE: Image-guided biopsy Procedural Personnel Attending physician(s): Dr. Villatoro Indication: Known liver adenoma now increased in size Additional clinical history: None Complications: No immediate complications. IMPRESSION: Image-guided biopsy of right hepatic lobe lesion. Plan: Specimen(s) sent for evaluation. PROCEDURE SUMMARY: - Percutaneous ultrasound-guided coaxial core needle biopsy - Additional procedure(s): None PROCEDURE DETAILS: Pre-procedure Reference imaging for biopsy target: MRI from 03/20/2022 Consent: Informed consent for the procedure including risks, benefits and alternatives was obtained and time-out was performed prior to the procedure. Preparation: The site was prepared and draped using maximal sterile barrier technique including cutaneous antisepsis. Anesthesia/sedation Moderate sedation was provided under my supervision with patient monitored by a trained radiology nurse. Total sedation time of 30 ?minutes. Biopsy Local anesthesia was administered. Under ultrasound imaging guidance as stated in the procedure summary, the biopsy needle was advanced to Ultrasound Report the right hepatic lobe lesion and biopsy was performed. Coaxial needle: 17 gauge Core needle biopsy device: 18 gauge Bard Chandler Number of core specimens: Four On-site biopsy touch preparation: Yes Preliminary assessment of sample adequacy: Necrotic tissue. Additional such biopsies were not performed due to patient discomfort, need to expedite procedure. Needle removal The biopsy needle was removed and a sterile dressing was applied. Tract embolization: None Additional Details Additional description of procedure: None Equipment details: None Specimens removed: Biopsy samples as detailed above Estimated blood loss (mL): Less than 10 Report Dictated on Final Dictated: 03/23/2022 12:10 pm Dictating Physician: MD VILLATORO JAMES Signed Date and Time: 03/23/2022 12:11 pm Signed by: MD VILLATORO JAMES Transcribed Date and Time: 03/23/2022 12:10 Normal [facility] Prothrombin Timeon INR 1.0 Normal 0.9-1.1 [facility] Comment on above: Result Comment: Cipriano mmended Anticoagulant Therapy: SEE BELOW ----- INR of [...] to prevent Myocardial Infarction Performed By: #### P T #### [address] [address] PT Coag (PPP) [Time] 10.4 s Normal 9.0-12.0 [facility] Comment on above: Result Comment: . Performed By: #### P T #### [address] [address] Protime-INRon 03-22-2022 INR Coag (Bld) [Relative time] 1.0 {INR} [facility] Comment on above: Recommended Anticoag ulant Therapy: SEE BELOW ----- INR of 2.0 [...] therapy is used to prevent Myocardial Infarction PT Coag (PPP) [Time] 10.4 s 9.0 - 1 2.0 s [facility] Comment on above: . Test Performed by [address] [address] [facility] MRI ABDOMEN W WO CONTRASTon 03-20-2022 Patient Name: JOAN FOLEY Magnetic Resonance Imaging ACCESSION EXAM DATE/TIME PROCEDURE ORDERING PROVIDER [id number] 03/20/2022 08:58 EDT MRI Abdomen w/ + w/o LEATHA HINKLE BROOKE Contrast CPT code 38962 Reason For Exam (MRI Abdomen w/ + w/o Contrast) hepatic lesion on CT, MRI and MRCP Report MRI ABDOMEN WITHOUT AND WITH CONTRAST (WITH ATTENTION TO THE LIVER): CLINICAL INDICATION: Enlarging hepatic lesion. TECHNIQUE: Coronal and transaxial fast spin density along with transaxial in phase and opposed phase gradient echo, fast T2 fat suppression sequences and diffusion-weighted sequences were formed through the abdomen with attention to the liver. MRCP was performed. Multiphase dynamic postcontrast transaxial T1 along with delayed coronal T1 fat suppression sequences were performed as well following administration of 8 ml Gadovist gadolinium contrast. COMPARISON: CT from 03/17/2022, MRI from 07/19/[address] from 06/17/2018. Patient also underwent biopsy on 08/07/2018 FINDINGS: Liver: Normal size and contour. There is generalized diminished signal relative to the spleen on opposed phase gradient echo sequence, corresponding to diffuse fatty infiltration. There is, however, a lesion within the right lobe between segments 5 and 8 which is somewhat enlarged in the AP orientation as compared to prior MRI. Dimensions are currently 3.9 cm AP, 2.0 cm transverse and 2.0 cm cephalocaudad. This was previously more rounded with a diameter of 2 cm Signal characteristics including some central T1 hyperintensity with heterogeneous T2 hyperintensity. There is a peripheral rim of diminished signal on T1 which demonstrates some enhancement. No other significant central enhancement is noted. Biliary tree: All bladder is absent. No biliary dilatation. Spleen: Normal Adrenals:Normal Pancreas: Homogeneous enhancement without mass or peripancreatic fluid. Kidneys: Symmetric contrast enhancement without mass or hydronephrosis Magnetic Resonance Imaging Report Aorta: Normal caliber Visualized Osseous structures: Normal IMPRESSION: Background of fatty infiltration, a lesion persists within the right lobe of liver which has become enlarged in the AP orientation now measuring up to 3.9 cm. Perhaps repeat biopsy with ultrasound guidance should be considered (since this was well delineated with ultrasound). Report Dictated on --- Final --- Dictated: 03/20/2022 3:59 pm Dictating Physician: MD SINGH JEFFREY Signed Date and Time: 03/20/2022 4:04 pm Signed by: MD SINGH JEFFREY Transcribed Date and Time: 03/20/2022 3:59 [facility] Vishal Singh MD - 03/20/2022 Patient Name: JOAN FOLEY Magnetic Resonance Imaging ACCESSION EXAM DATE/TIME PROCEDURE ORDERING PROVIDER [id number] 03/20/2022 08:58 EDT MRI Abdomen w/ + w/o LEATHA HINKLE BROOKE Contrast CPT code 94251 Reason For Exam (MRI Abdomen w/ + w/o Contrast) hepatic lesion on CT, MRI and MRCP Report MRI ABDOMEN WITHOUT AND WITH CONTRAST (WITH ATTENTION TO THE LIVER): CLINICAL INDICATION: Enlarging hepatic lesion. TECHNIQUE: Coronal and transaxial fast spin density along with transaxial in phase and opposed phase gradient echo, fast T2 fat suppression sequences and diffusion-weighted sequences were formed through the abdomen with attention to the liver. MRCP was performed. Multiphase dynamic postcontrast transaxial T1 along with delayed coronal T1 fat suppression sequences were performed as well following administration of 8 ml Gadovist gadolinium contrast. COMPARISON: CT from 03/17/2022, MRI from 07/19/[address] from 06/17/2018. Patient also underwent biopsy on 08/07/2018 FINDINGS: Liver: Normal size and contour. There is generalized diminished signal relative to the spleen on opposed phase gradient echo sequence, corresponding to diffuse fatty infiltration. There is, however, a lesion within the right lobe between segments 5 and 8 which is somewhat enlarged in the AP orientation as compared to prior MRI. Dimensions are currently 3.9 cm AP, 2.0 cm transverse and 2.0 cm cephalocaudad. This was previously more rounded with a diameter of 2 cm Signal characteristics including some central T1 hyperintensity with heterogeneous T2 hyperintensity. There is a peripheral rim of diminished signal on T1 which demonstrates some enhancement. No other significant central enhancement is noted. Biliary tree: All bladder is absent. No biliary dilatation. Spleen: Normal Adrenals:Normal Pancreas: Homogeneous enhancement without mass or peripancreatic fluid. Kidneys: Symmetric contrast enhancement without mass or hydronephrosis Magnetic Resonance Imaging Report Aorta: Normal caliber Visualized Osseous structures: Normal IMPRESSION: Background of fatty infiltration, a lesion persists within the right lobe of liver which has become enlarged in the AP orientation now measuring up to 3.9 cm. Perhaps repeat biopsy with ultrasound guidance should be considered (since this was well delineated with ultrasound). Report Dictated on --- Final --- Dictated: 03/20/2022 3:59 pm Dictating Physician: MD SINGH JEFFREY Signed Date and Time: 03/20/2022 4:04 pm Signed by: MD SINGH JEFFREY Transcribed Date and Time: 03/20/2022 3:59 [facility] Work Phone: MRI ABDOMEN W WO CONTRASTOrd ered By: Vishal Singh on 03-20-2022 [facility] Work Phone: MRI Abdomen w/ + w/o Contras ton 03-20-2022 MRI Abdomen w/ + w/o Contrast [facility]: [id number] ACCESSION EXAM DATE/TIME PROCEDURE ORDERING PROVIDER [id number] 03/20/2022 08:58 EDT MRI Abdomen w/ + w/o LEATHA HINKLE BROOKE Contrast CPT code 87199 Reason For Exam (MRI Abdomen w/ + w/o Contrast) hepatic lesion on CT, MRI and MRCP Report MRI ABDOMEN WITHOUT AND WITH CONTRAST (WITH ATTENTION TO THE LIVER): CLINICAL INDICATION: Enlarging hepatic lesion. TECHNIQUE: Coronal and transaxial fast spin density along with transaxial in phase and opposed phase gradient echo, fast T2 fat suppression sequences and diffusion-weighted sequences were formed through the abdomen with attention to the liver. MRCP was performed. Multiphase dynamic postcontrast transaxial T1 along with delayed coronal T1 fat suppression sequences were performed as well following administration of 8 ml Gadovist gadolinium contrast. COMPARISON: CT from 03/17/2022, MRI from 07/19/[address] from 06/17/2018. Patient also underwent biopsy on 08/07/2018 FINDINGS: Liver: Normal size and contour. There is generalized diminished signal relative to the spleen on opposed phase gradient echo sequence, corresponding to diffuse fatty infiltration. There is, however, a lesion within the right lobe between segments 5 and 8 which is somewhat enlarged in the AP orientation as compared to prior MRI. Dimensions are currently 3.9 cm AP, 2.0 cm transverse and 2.0 cm cephalocaudad. This was previously more rounded with a diameter of 2 cm Signal characteristics including some central T1 hyperintensity with heterogeneous T2 hyperintensity. There is a peripheral rim of diminished signal on T1 which demonstrates some enhancement. No other significant central enhancement is noted. Biliary tree: All bladder is absent. No biliary dilatation. Spleen: Normal Adrenals:Normal Pancreas: Homogeneous enhancement without mass or peripancreatic fluid. Kidneys: Symmetric contrast enhancement without mass or hydronephrosis Magnetic Resonance Imaging Report Aorta: Normal caliber Visualized Osseous structures: Normal IMPRESSION: Background of fatty infiltration, a lesion persists within the right lobe of liver which has become enlarged in the AP orientation now measuring up to 3.9 cm. Perhaps repeat biopsy with ultrasound guidance should be considered (since this was well delineated with ultrasound). Report Dictated on Final Dictated: 03/20/2022 3:59 pm Dictating Physician: MD SINGH JEFFREY Signed Date and Time: 03/20/2022 4:04 pm Signed by: MD SINGH JEFFREY Transcribed Date and Time: 03/20/2022 3:59 Normal [facility] CBC with Auto Differentialon 03-19-2022 Absolute Baso # 0.0 10*3/uL 0.0 - 0.2 10*3/uL [facility] Absolute Neut # 6.0 10*3/uL 1.8 - 7.0 10*3/uL [facility] Basophils/100 WBC (Bld) 0.6 % 0.0 - 2.0 % [facility] Eosinophils (Bld) [#/Vol] 0.2 10*3/uL 0.0 - 0.5 10*3/uL [facility] Eosinophils/100 WBC (Bld) 1.8 % 1.0 - 6.0 % [facility] Granulocytes/100 WBC (Bld) 69.4 % 40.0 - 80.0 % [facility] Hematocrit (Bld) [Volume fraction] 36.3 % 35.0 - 47.0 % [facility] Hemoglobin (Bld) [Mass/Vol] 12.4 g/dL 11.7 - 16.0 g/dL [facility] Interpretation and review of laboratory results Abnormal [facility] Lymphocytes (Bld) [#/Vol] 1.9 10*3/uL 1.0 - 4.3 10*3/uL [facility] Lymphocytes/100 WBC (Bld) 22.0 % 20.0 - 40.0 % [facility] MCH (RBC) [Entitic mass] 33.4 pg 26.0 - 34.0 pg [facility] MCHC (RBC) [Mass/Vol] 34.3 % 32.0 - 36.0 % [facility] MCV (RBC) [Entitic vol] 97.5 fL 79.0 - 98.0 fL [facility] Monocytes (Bld) [#/Vol] 0.5 10*3/uL 0.0 - 0.8 10*3/uL [facility] Monocytes/100 WBC (Bld) 6.2 % 2.0 - 10.0 % [facility] Platelet distribution width (Bld) [Ratio] 12.7 % 11.5 - 14.5 % [facility] Platelet mean volume (Bld) [Entitic vol] 9.1 fL 7.4 - 12.4 fL [facility] Comment on above: MPV is a calculated measurement using platelet volume ratio. Platelets (Bld) [#/Vol] 194 10*3/uL 140 - 440 10*3/uL [facility] RBC (Bld) [#/Vol] 3.72 10*6/uL Low 3.80 - 5.2 0 10*6/uL [facility] WBC (Bld) [#/Vol] 8.6 10*3/uL 3.6 - 10.7 10*3/uL [facility] Test Performed by [facility], [address] [place] [id number] [facility] CULTURE URINEon 03-19-2022 CULTURE URINE CULTURE URINE --> Status: F Normal urogenital noreen present. Normal [facility] Comment on above: Performed By: #### C /UR ####[facility] [place], [place] Comp Panel with Mg Reflexon 03-19-2022 Calcium [Mass/Vol] 8.6 mg/dL Normal 8.4-10.4 [facility] Comment on above: Performed By: #### H TIM CMP3M #### [place] [address] [place], [place] ALP [Catalytic activity/Vol] 62 U/L Normal 38-126 [facility] Comment on above: Performed By: #### H TIM CMP3M #### [place] [address] [address] [place], [place] ALT [Catalytic activity/Vol] 51 U/L High 0-34 [facility] Comment on above: Result Comment: The ALT test is performed by an updated assay method. Please note that the reference intervals have been changed and are now sex specific. Performed By: #### H TIM CMP3M #### [place] [address] [address] [place], [place] Anion gap [Moles/Vol] 6 mmol/L Normal 3-13 [facility] Comment on above: Performed By: #### H TIM CMP3M #### [facility] [address] [place], [place] AST [Catalytic activity/Vol] 41 U/L Normal 15-46 [facility] Comment on above: Performed By: #### H TIM CMP3M #### [facility] [address] [place], [place] Bilirubin [Mass/Vol] 0.3 mg/dL Normal 0.2-1.3 [facility] Comment on above: Performed By: #### H TIM CMP3M #### [place] [address] [address] [place], [place] CO2 [Moles/Vol] 25 mmol/L Normal 22-30 [facility] Comment on above: Performed By: #### H TIM CMP3M #### [place] [address] [address] [place], [place] Creatinine [Mass/Vol] 0.88 mg/dL Normal 0.52-1.25 [facility] Comment on above: Performed By: #### H TIM CMP3M #### [place] [address] [address] [place], [place] GFR/1.73 sq M.predicted among blacks MDRD (S/P/Bld) [Vol rate/Area] mL/min/{1.73_m2} Normal >60 [facility] Comment on above: Performed By: #### H EMDJosy CMP3M #### [facility] [address] [place], [place] GFR/1.73 sq M.predicted among non-blacks MDRD (S/P/Bld) [Vol rate/Area] 81.5 mL/min/{1.73_m2} Normal >60 [facility] Comment on above: Result Comment: KDIG O guidelines provide the following GFR categories: Stage GFR(ml/min/1.73 m2) Terms G1 >=90 Normal or high G2 60-89 Mildly decreased* G3a 45-59 Mildly to moderately decreased G3b 30-44 Moderately to severely decreased G4 15-29 Severely decreased G5 <15 Kidney failure *Relative to young adult level. In the absence of evidence of kidney damage, neither GFR category G1 nor G2 fulfill the criteria for CKD. The CKD-EPI equation is validated in individuals 18 years of age and older. Currently the best equation for estimating glomerular filtration rate (GFR) from serum creatinine in children is the Bedside Monterroso equation. It is less accurate in patients with extremes of muscle mass, restriction of dietary protein, ingestion of creatine, extra-renal metabolism of creatinine, or treatment with medications that affect renal tubular creatinine secretion. Performed By: #### Laura DUMONT CMP3M #### [facility] [address] [place] [address] Glucose [Mass/Vol] 96 mg/dL Normal 70-100 [facility] Comment on above: Performed By: #### Laura DUMONT CMP3M #### [facility] [address] [place] [address] Protein [Mass/Vol] 6.1 g/dL Low 6.3-8.2 [facility] Comment on above: Performed By: #### Laura DUMONT CMP3M #### [place] [address] [place] [address] Urea nitrogen [Mass/Vol] 15 mg/dL Normal 9-20 [facility] Comment on above: Performed By: #### Laura DUMONT CMP3M #### [facility] [address] [place] [address] Albumin [Mass/Vol] 3.6 g/dL Normal 3.5-5.0 [facility] Comment on above: Performed By: #### Luara DUMONT CMP3M #### [facility] [address] [place] [address] Potassium [Moles/Vol] 4.1 mmol/L Normal 3.5-5.1 [facility] Comment on above: Performed By: #### Laura DUMONT CMP3M #### [facility] [address] [place] [address] Sodium [Moles/Vol] 134 mmol/L Low 135-145 [facility] Comment on above: Performed By: #### Laura DUMONT CMP3M #### [facility] [address] [place] [address] Chloride [Moles/Vol] 104 mmol/L Normal 98-107 [facility] Comment on above: Performed By: #### H RELL DUMONT3M #### [facility] [address] [place] [address] Comprehensive Metabolic Pane l w/ Reflex to MGon 03-19-2022 Albumin [Mass/Vol] 3.6 g/dL 3.5 - 5.0 g/dL [facility] ALP (Bld) [Catalytic activity/Vol] 62 U/L 38 - 126 U/L [facility] ALT [Catalytic activity/Vol] 51 U/L High 0 - 34 U/L [facility] Comment on above: The ALT test is perf ormed by an updated assay method. Please note that the reference intervals have been changed and are now sex specific. Anion gap [Moles/Vol] 6 mmol/L 3 - 13 mmol/L [facility] AST [Catalytic activity/Vol] 41 U/L 15 - 46 U/L [facility] Bilirubin [Mass/Vol] 0.3 mg/dL 0.2 - 1 .3 mg/dL [facility] Calcium [Mass/Vol] 8.6 mg/dL 8.4 - 10. 4 mg/dL [facility] Chloride [Moles/Vol] 104 mmol/L 98 - 10 7 mmol/L [facility] CO2 [Moles/Vol] 25 mmol/L 22 - 30 mmol/L [facility] Creatinine [Mass/Vol] 0.88 mg/dL 0.52 - 1.25 mg/dL [facility] EGFR IF NonAfrican Australian 81.5 mL/min >60 [facility] Comment on above: KDIGO guidelines pro vide the following GFR categories: Stage GFR(ml/min/1.73 m2) Terms G1 >=90 Normal or high G2 60-89 Mildly decreased* G3a 45-59 Mildly to moderately decreased G3b 30-44 Moderately to severely decreased G4 15-29 Severely decreased G5 <15 Kidney failure *Relative to young adult level. In the absence of evidence of kidney damage, neither GFR category G1 nor G2 fulfill the criteria for CKD. The CKD-EPI equation is validated in individuals 18 years of age and older. Currently the best equation for estimating glomerular filtration rate (GFR) from serum creatinine in children is the Bedside Monterroso equation. It is less accurate in patients with extremes of muscle mass, restriction of dietary protein, ingestion of creatine, extra-renal metabolism of creatinine, or treatment with medications that affect renal tubular creatinine secretion. Free PSA/Total PSA [Mass fraction] 6.1 g/dL Low 6.3 - 8.2 g/dL [facility] GFR/1.73 sq M.predicted among blacks MDRD (S/P/Bld) [Vol rate/Area] mL/min/{1.73_m2} >60 mL/min [facility] Glucose [Mass/Vol] 96 mg/dL 70 - 100 mg/dL [facility] Interpretation and review of laboratory results Abnormal [facility] Potassium [Moles/Vol] 4.1 mmol/L 3.5 - 5.1 mmol/L [facility] Sodium [Moles/Vol] 134 mmol/L Low 135 - 145 mmol/L [facility] Urea nitrogen (BldV) [Mass/Vol] 15 mg/dL 9 - 20 mg/dL [facility] Test Performed by [id number] [place] [address] LAB [facility] Culture, Urineon 03-19-2022 Bacteria identified Cx Nom (U) Normal urogenital noreen present. [facility] Test Performed by [id number] [place] [address] LAB [facility] Hemogram w/ Autodiffon 03-19 Abs Baso Cnt 0.0 10*3/uL Normal 0.0-0.2 [facility] Comment on above: Performed By: #### H RELL DUMONT3M #### [address] Abs Neutrophile Cnt 6.0 10*3/uL Normal 1.8-7.0 [facility] Comment on above: Performed By: #### H RELL DUMONT3M #### [address] Basophils/100 WBC (Bld) 0.6 % Normal 0.0-2.0 [facility] Comment on above: Performed By: #### H RELL DUMONT3M #### [address] Eosinophils (Bld) [#/Vol] 0.2 10*3/uL Normal 0.0-0.5 [facility] Comment on above: Performed By: #### Laura DUMONT CMP3M #### [facility] [address] [place], [place] Eosinophils/100 WBC (Bld) 1.8 % Normal 1.0-6.0 [facility] Comment on above: Performed By: #### Laura DUMONT CMP3M #### [place] [address] [address] [place], [place] Erythrocyte distribution width (RBC) [Ratio] 12.7 % Normal 11.5-14.5 [facility] Comment on above: Performed By: #### H TIM CMP3M #### [place] [address] [place], [place] Granulocytes/100 WBC (Bld) 69.4 % Normal 40.0-80.0 [facility] Comment on above: Performed By: #### H TIM CMP3M #### [place] [address] [address] [place], [place] Hematocrit (Bld) [Volume fraction] 36.3 % Normal 35.0-47.0 [facility] Comment on above: Performed By: #### H TIM CMP3M #### [place] [address] [address] [place], [place] Hemoglobin (Bld) [Mass/Vol] 12.4 g/dL Normal 11.7-16.0 [facility] Comment on above: Performed By: #### H TIM CMP3M #### [place] [address] [address] [place], [place] Lymphocytes (Bld) [#/Vol] 1.9 10*3/uL Normal 1.0-4.3 [facility] Comment on above: Performed By: #### H TIM CMP3M #### [place] [address] [address] [place], [place] Lymphocytes/100 WBC (Bld) 22.0 % Normal 20.0-40.0 [facility] Comment on above: Performed By: #### Laura DUMONT CMP3M #### [facility] [address] [place], [place] MCH (RBC) [Entitic mass] 33.4 pg Normal 26.0-34.0 [facility] Comment on above: Performed By: #### H TIM CMP3M #### [place] [address] [address] [place], [place] MCHC 34.3 % Normal 32.0-36.0 [facility] Comment on above: Performed By: #### H TIM CMP3M #### [place] [address] [place], [place] MCV (RBC) [Entitic vol] 97.5 fL Normal 79.0-98.0 [facility] Comment on above: Performed By: #### Laura DUMONT CMP3M #### [address] Monocytes (Bld) [#/Vol] 0.5 10*3/uL Normal 0.0-0.8 [facility] Comment on above: Performed By: #### Laura DUMONT CMP3M #### [address] Monocytes/100 WBC (Bld) 6.2 % Normal 2.0-10.0 [facility] Comment on above: Performed By: #### Laura DUMONT CMP3M #### [place] [address] [place], [place] Platelet mean volume (Bld) [Entitic vol] 9.1 fL Normal 7.4-12.4 [facility] Comment on above: Result Comment: MPV is a calculated measurement using platelet volume ratio. Performed By: #### Laura DUMONT CMP3M #### [address] Platelets (Bld) [#/Vol] 194 10*3/uL Normal 140-440 [facility] Comment on above: Performed By: #### Laura DUMONT CMP3M #### [place] [address] [place], [place] RBC (Bld) [#/Vol] 3.72 10*6/uL Low 3.80-5.20 [facility] Comment on above: Performed By: #### H RELL DUMONT3M #### [facility] [address] [place], [place] WBC (Bld) [#/Vol] 8.6 10*3/uL Normal 3.6-10.7 [facility] Comment on above: Performed By: #### H RELL DUMONT3M #### [facility] [address] [place], [place] MRI ABDOMEN W WO CONTRASTon 03-19-2022 Radiology Study observation (narrative) [facility] Work Phone: CBC with Auto Differentialon 03-17-2022 Absolute Baso # 0.1 10*3/uL 0.0 - 0.2 10*3/uL [facility] Absolute Neut # 9.1 10*3/uL High 1.8 - 7.0 10*3/uL [facility] Basophils/100 WBC (Bld) 0.5 % 0.0 - 2.0 % [facility] Eosinophils (Bld) [#/Vol] 0.1 10*3/uL 0.0 - 0.5 10*3/uL [facility] Eosinophils/100 WBC (Bld) 1.0 % 1.0 - 6.0 % [facility] Granulocytes/100 WBC (Bld) 75.8 % 40.0 - 80.0 % [facility] Hematocrit (Bld) [Volume fraction] 40.0 % 35.0 - 47.0 % [facility] Hemoglobin (Bld) [Mass/Vol] 13.8 g/dL 11.7 - 16.0 g/dL [facility] Interpretation and review of laboratory results Abnormal [facility] Lymphocytes (Bld) [#/Vol] 1.9 10*3/uL 1.0 - 4.3 10*3/uL [facility] Lymphocytes/100 WBC (Bld) 15.7 % Low 20.0 - 40.0 % [facility] MCH (RBC) [Entitic mass] 33.1 pg 26.0 - 34.0 pg [facility] MCHC (RBC) [Mass/Vol] 34.5 % 32.0 - 36.0 % [facility] MCV (RBC) [Entitic vol] 95.9 fL 79.0 - 98.0 fL [facility] Monocytes (Bld) [#/Vol] 0.7 10*3/uL 0.0 - 0.8 10*3/uL [facility] Monocytes/100 WBC (Bld) 5.9 % 2.0 - 10.0 % [facility] Platelet distribution width (Bld) [Ratio] 12.3 % 11.5 - 14.5 % [facility] Platelet mean volume (Bld) [Entitic vol] 10.4 fL 7.4 - 12.4 fL [facility] Comment on above: MPV is a calculated measurement using platelet volume ratio. Platelets (Bld) [#/Vol] 228 10*3/uL 140 - 440 10*3/uL [facility] RBC (Bld) [#/Vol] 4.17 10*6/uL 3.80 - 5.2 0 10*6/uL [facility] WBC (Bld) [#/Vol] 12.0 10*3/uL High 3.6 - 10.7 10*3/uL [facility] Test Performed by [facility], [address] [place] [address] LAB [facility] Abdomen Pelvis Wo Contras ton 03-17-2022 Patient Name: JOAN FOLEY Computed Tomography ACCESSION EXAM DATE/TIME PROCEDURE ORDERING PROVIDER [id number] 03/17/2022 16:[address] Abdomen/Pelvis (No MD COURTNEY, SEGUN Calvo PO, No IV) CPT code 90806 Reason For Exam (CT Abdomen/Pelvis (No PO, No IV)) diffuse abdominal pain, nausea, vomiting, diarrhea. epigastric and RUQ especially. jose ramon, appy, hysterectomy. just had EGD and colonoscopy 48 hours ago. PERF? Ileus? SBO? No bowel sounds. Report ABDOMINAL AND PELVIC CT WITHOUT CONTRAST History: Abdominal pain, nausea, vomiting, prior cholecystectomy and appendectomy recent EGD and colonoscopy Comparison CT: 06/17/2018 Technique: Multislice volume acquisition abdominal and pelvic axial CT sections from the diaphragm through the symphysis pubis without oral or IV contrast enhancement . Multiplanar sagittal and coronal reconstructed images also obtained. Findings: Partially visualized lung bases show no acute infiltrate. Abdominal CT shows diffuse hepatic fatty infiltration. In the right hepatic lobe, there is opacification 3.3 mm heterogeneous lesion which is larger compared to 06/27/2018 CT and 07/19/2016 MRI and was reportedly concerning for adenoma versus malignancy/metastasis. This could not be properly evaluated on the current unenhanced CT. The unenhanced spleen, pancreas, both adrenals, and both kidneys are unremarkable. There are no renal or ureteral calculi or hydronephrosis bilaterally. There is a small midline supraumbilical ventral hernia containing fat. Pelvic CT shows mildly distended urinary bladder without calculus. Uterus is absent and there is tiny, 5 mm hyperdense/calcified focus in the vaginal cuff, not significantly changed. There is heterogeneous, 4.6 cm left adnexal structure suggesting enlarged ovary with cysts. The exam is limited without contrast enhancement. There is no abdominal or pelvic lymphadenopathy, fluid collections, appreciable free air, soft tissue inflammation, or significant bowel distention. There is history of appendectomy. IMPRESSION: Fatty liver with heterogeneous right lobe lesion which is larger compared to the prior CT/MRI, requiring further evaluation to exclude malignancy versus other etiologies as previously described. Contrast enhanced MRI suggested. Small ventral hernia containing fat. Mildly enlarged heterogeneous left ovary with cysts. Consider ultrasound. Computed Tomography Report No abdominal or pelvic free air or fluid collections. Report Dictated on --- Final --- Dictating Physician: MD SHANE AHMAD Signed Date and Time: 03/17/2022 5:25 pm Signed by: MD SHANE AHMAD Transcribed Date and Time: 03/17/2022 5:26 [facility] Viji Shane MD - 03/17/2022 Patient Name: JOAN FOLEY Computed Tomography ACCESSION EXAM DATE/TIME PROCEDURE ORDERING PROVIDER [id number] 03/17/2022 16:[address] Abdomen/Pelvis (Vielka VALDEZ MD, SEGUN R. PO, No IV) CPT code 75398 Reason For Exam (CT Abdomen/Pelvis (No PO, No IV)) diffuse abdominal pain, nausea, vomiting, diarrhea. epigastric and RUQ especially. jose ramon, appy, hysterectomy. just had EGD and colonoscopy 48 hours ago. PERF? Ileus? SBO? No bowel sounds. Report ABDOMINAL AND PELVIC CT WITHOUT CONTRAST History: Abdominal pain, nausea, vomiting, prior cholecystectomy and appendectomy recent EGD and colonoscopy Comparison CT: 06/17/2018 Technique: Multislice volume acquisition abdominal and pelvic axial CT sections from the diaphragm through the symphysis pubis without oral or IV contrast enhancement . Multiplanar sagittal and coronal reconstructed images also obtained. Findings: Partially visualized lung bases show no acute infiltrate. Abdominal CT shows diffuse hepatic fatty infiltration. In the right hepatic lobe, there is opacification 3.3 mm heterogeneous lesion which is larger compared to 06/27/2018 CT and 07/19/2016 MRI and was reportedly concerning for adenoma versus malignancy/metastasis. This could not be properly evaluated on the current unenhanced CT. The unenhanced spleen, pancreas, both adrenals, and both kidneys are unremarkable. There are no renal or ureteral calculi or hydronephrosis bilaterally. There is a small midline supraumbilical ventral hernia containing fat. Pelvic CT shows mildly distended urinary bladder without calculus. Uterus is absent and there is tiny, 5 mm hyperdense/calcified focus in the vaginal cuff, not significantly changed. There is heterogeneous, 4.6 cm left adnexal structure suggesting enlarged ovary with cysts. The exam is limited without contrast enhancement. There is no abdominal or pelvic lymphadenopathy, fluid collections, appreciable free air, soft tissue inflammation, or significant bowel distention. There is history of appendectomy. IMPRESSION: Fatty liver with heterogeneous right lobe lesion which is larger compared to the prior CT/MRI, requiring further evaluation to exclude malignancy versus other etiologies as previously described. Contrast enhanced MRI suggested. Small ventral hernia containing fat. Mildly enlarged heterogeneous left ovary with cysts. Consider ultrasound. Computed Tomography Report No abdominal or pelvic free air or fluid collections. Report Dictated on --- Final --- Dictating Physician: MD SHANE AHMAD Signed Date and Time: 03/17/2022 5:25 pm Signed by: MD SHANE AHMAD Transcribed Date and Time: 03/17/2022 5:26 [facility] Work Phone: Radiology Study observation (narrative) [facility] Work Phone: CT Abdomen Pelvis Wo Contras tOrdered By: Viji Shane on 03-17-2022 [email or web address] Work Phone: CT Abdomen/Pelvis w/o Contra ston 03-17-2022 CT Abdomen/Pelvis w/o Contrast Patient Name: JOAN FOLEY Computed Tomography ACCESSION EXAM DATE/TIME PROCEDURE ORDERING PROVIDER [id number] 03/17/2022 16:[address] Abdomen/Pelvis (No MD COURTNEY, SEGUN Calvo PO, No IV) CPT code 60228 Reason For Exam (CT Abdomen/Pelvis (No PO, No IV)) diffuse abdominal pain, nausea, vomiting, diarrhea. epigastric and RUQ especially. jose ramon, appy, hysterectomy. just had EGD and colonoscopy 48 hours ago. PERF? Ileus? SBO? No bowel sounds. Report ABDOMINAL AND PELVIC CT WITHOUT CONTRAST History: Abdominal pain, nausea, vomiting, prior cholecystectomy and appendectomy recent EGD and colonoscopy Comparison CT: 06/17/2018 Technique: Multislice volume acquisition abdominal and pelvic axial CT sections from the diaphragm through the symphysis pubis without oral or IV contrast enhancement . Multiplanar sagittal and coronal reconstructed images also obtained. Findings: Partially visualized lung bases show no acute infiltrate. Abdominal CT shows diffuse hepatic fatty infiltration. In the right hepatic lobe, there is opacification 3.3 mm heterogeneous lesion which is larger compared to 06/27/2018 CT and 07/19/2016 MRI and was reportedly concerning for adenoma versus malignancy/metastasis. This could not be properly evaluated on the current unenhanced CT. The unenhanced spleen, pancreas, both adrenals, and both kidneys are unremarkable. There are no renal or ureteral calculi or hydronephrosis bilaterally. There is a small midline supraumbilical ventral hernia containing fat. Pelvic CT shows mildly distended urinary bladder without calculus. Uterus is absent and there is tiny, 5 mm hyperdense/calcified focus in the vaginal cuff, not significantly changed. There is heterogeneous, 4.6 cm left adnexal structure suggesting enlarged ovary with cysts. The exam is limited without contrast enhancement. There is no abdominal or pelvic lymphadenopathy, fluid collections, appreciable free air, soft tissue inflammation, or significant bowel distention. There is history of appendectomy. IMPRESSION: Fatty liver with heterogeneous right lobe lesion which is larger compared to the prior CT/MRI, requiring further evaluation to exclude malignancy versus other etiologies as previously described. Contrast enhanced MRI suggested. Small ventral hernia containing fat. Mildly enlarged heterogeneous left ovary with cysts. Consider ultrasound. Computed Tomography Report No abdominal or pelvic free air or fluid collections. Report Dictated on Final Dictating Physician: MD SHANE AHMAD Signed Date and Time: 03/17/2022 5:25 pm Signed by: MD SHANE AHMAD Transcribed Date and Time: 03/17/2022 5:26 Normal [facility] Comp Metabolic Panelon 03-17 Creatinine [Mass/Vol] 0.71 mg/dL Normal 0.52-1.25 [facility] Comment on above: Performed By: #### L IPA4, QWAL2, HEMDF, CMP3 #### [facility] [address] [place] [address] eGFR OTHER > 90.0 Normal >60 [facility] Comment on above: Result Comment: KDIG O guidelines provide the following GFR categories: Stage GFR(ml/min/1.73 m2) Terms G1 >=90 Normal or high G2 60-89 Mildly decreased* G3a 45-59 Mildly to moderately decreased G3b 30-44 Moderately to severely decreased G4 15-29 Severely decreased G5 <15 Kidney failure *Relative to young adult level. In the absence of evidence of kidney damage, neither GFR category G1 nor G2 fulfill the criteria for CKD. The CKD-EPI equation is validated in individuals 18 years of age and older. Currently the best equation for estimating glomerular filtration rate (GFR) from serum creatinine in children is the Bedside Monterroso equation. It is less accurate in patients with extremes of muscle mass, restriction of dietary protein, ingestion of creatine, extra-renal metabolism of creatinine, or treatment with medications that affect renal tubular creatinine secretion. Performed By: #### L IPA4, QWAL2, HEMDF, CMP3 #### [facility] [address] [place] [address] GFR/1.73 sq M.predicted among blacks MDRD (S/P/Bld) [Vol rate/Area] mL/min/{1.73_m2} Normal >60 [facility] Comment on above: Performed By: #### L IPA4, QWAL2, HEMDF, CMP3 #### [facility] [address] [place] [address] Protein [Mass/Vol] 7.6 g/dL Normal 6.3-8.2 [facility] Comment on above: Performed By: #### L IPA4, QWAL2, HEMDF, CMP3 #### [facility] [address] [place] [address] Urea nitrogen [Mass/Vol] 8 mg/dL Low 9-20 [facility] Comment on above: Performed By: #### L IPA4, QWAL2, HEMDF, CMP3 #### [facility] [address] [place] [address] ALP [Catalytic activity/Vol] 68 U/L Normal 38-126 [facility] Comment on above: Performed By: #### L IPA4, QWAL2, HEMDF, CMP3 #### [facility] [address] [place] [address] ALT [Catalytic activity/Vol] 57 U/L High 0-34 [facility] Comment on above: Result Comment: The ALT test is performed by an updated assay method. Please note that the reference intervals have been changed and are now sex specific. Performed By: #### L IPA4, QWAL2, HEMDF, CMP3 #### [facility] [address] [place] [address] AST [Catalytic activity/Vol] 40 U/L Normal 15-46 [facility] Comment on above: Performed By: #### L IPA4, QWAL2, HEMDF, CMP3 #### [facility] [address] [place] [address] Calcium [Mass/Vol] 10.1 mg/dL Normal 8.4-10.4 [facility] Comment on above: Performed By: #### L IPA4, QWAL2, HEMDF, CMP3 #### [facility] [address] [place] [address] Glucose [Mass/Vol] 99 mg/dL Normal 70-100 [facility] Comment on above: Performed By: #### L IPA4, QWAL2, HEMDF, CMP3 #### [facility] [address] [place] [address] Anion gap [Moles/Vol] 8 mmol/L Normal 3-13 [facility] Comment on above: Performed By: #### L IPA4, QWAL2, HEMDF, CMP3 #### [facility] [address] [place] [address] Bilirubin [Mass/Vol] 0.6 mg/dL Normal 0.2-1.3 [facility] Comment on above: Performed By: #### L IPA4, QWAL2, HEMDF, CMP3 #### [facility] [address] [place] [address] CO2 [Moles/Vol] 24 mmol/L Normal 22-30 [facility] Comment on above: Performed By: #### L IPA4, QWAL2, HEMDF, CMP3 #### [facility] [address] [place] [address] Albumin [Mass/Vol] 4.8 g/dL Normal 3.5-5.0 [facility] Comment on above: Performed By: #### L IPA4, QWAL2, HEMDF, CMP3 #### [facility] [address] [place] [address] Chloride [Moles/Vol] 103 mmol/L Normal 98-107 [facility] Comment on above: Performed By: #### L IPA4, QWAL2, HEMDF, CMP3 #### [facility] [address] [place] [address] Potassium [Moles/Vol] 4.2 mmol/L Normal 3.5-5.1 [facility] Comment on above: Performed By: #### L IPA4, QWAL2, HEMDF, CMP3 #### [facility] [address] [place] [address] Sodium [Moles/Vol] 135 mmol/L Normal 135-145 [facility] Comment on above: Performed By: #### L IPA4, QWAL2, HEMDF, CMP3 #### [facility] [address] [place] [address] Complete Urinalysison 2021 Appearance (U) Clear Normal Clear [facility] Comment on above: Result Comment: . Performed By: #### C UA2 #### [facility] [address] [place] [address] Bilirubin,Urine Negative Normal Negative [facility] Comment on above: Result Comment: . Performed By: #### C UA2 #### [facility] [address] [place] [address] Color (U) COLORLESS Normal Lt. Yellow [facility] Comment on above: Result Comment: . Performed By: #### C UA2 #### [facility] [address] [place] [address] Glucose Ql (U) Normal Normal Normal (<70) [facility] Comment on above: Result Comment: . Performed By: #### C UA2 #### [facility] [address] [place] [address] Ketone,Urine 10 mg/dL Abnormal Negative [facility] Comment on above: Result Comment: . Performed By: #### C UA2 #### [facility] [address] [place] [address] Leukocytes,Urine Negative Normal Negative [facility] Comment on above: Result Comment: . Performed By: #### C UA2 #### [facility] [address] [place] [address] Nitrites,Urine Negative Normal Negative [facility] Comment on above: Result Comment: . Performed By: #### C UA2 #### [facility] [address] [place] [address] Occult Blood,Urine Negative Normal Negative [facility] Comment on above: Result Comment: . Performed By: #### C UA2 #### [facility] [address] [place] [address] pH,Urine 6.5 Normal 5.0-8.0 [facility] Comment on above: Result Comment: . Performed By: #### C UA2 #### [facility] [address] [place] [address] Specific [place],Urine 1.006 Normal 1.005 - 1.030 [facility] Comment on above: Result Comment: . Performed By: #### C UA2 #### [facility] [address] [place] [address] Total Protein,Urine Negative Normal Negative [facility] Comment on above: Result Comment: . Performed By: #### C UA2 #### [facility] [address] [place] [address] Urobilinogen,Urine Normal Normal Normal (0-1) [facility] Comment on above: Result Comment: . Performed By: #### C UA2 #### [facility] [address] [place] [address] Comprehensive Metabolic Pane [facility] 03-17-2022 Albumin [Mass/Vol] 4.8 g/dL 3.5 - 5.0 g/dL [facility] ALP (Bld) [Catalytic activity/Vol] 68 U/L 38 - 126 U/L [facility] ALT [Catalytic activity/Vol] 57 U/L High 0 - 34 U/L [facility] Comment on above: The ALT test is perf ormed by an updated assay method. Please note that the reference intervals have been changed and are now sex specific. Anion gap [Moles/Vol] 8 mmol/L 3 - 13 mmol/L [facility] AST [Catalytic activity/Vol] 40 U/L 15 - 46 U/L [facility] Bilirubin [Mass/Vol] 0.6 mg/dL 0.2 - 1 .3 mg/dL [facility] Calcium [Mass/Vol] 10.1 mg/dL 8.4 - 10. 4 mg/dL [facility] Chloride [Moles/Vol] 103 mmol/L 98 - 10 7 mmol/L [facility] CO2 [Moles/Vol] 24 mmol/L 22 - 30 mmol/L [facility] Creatinine [Mass/Vol] 0.71 mg/dL 0.52 - 1.25 mg/dL [facility] EGFR IF NonAfrican Australian >90.0 >60 mL/min [facility] Comment on above: KDIGO guidelines pro vide the following GFR categories: Stage GFR(ml/min/1.73 m2) Terms G1 >=90 Normal or high G2 60-89 Mildly decreased* G3a 45-59 Mildly to moderately decreased G3b 30-44 Moderately to severely decreased G4 15-29 Severely decreased G5 <15 Kidney failure *Relative to young adult level. In the absence of evidence of kidney damage, neither GFR category G1 nor G2 fulfill the criteria for CKD. The CKD-EPI equation is validated in individuals 18 years of age and older. Currently the best equation for estimating glomerular filtration rate (GFR) from serum creatinine in children is the Bedside Monterroso equation. It is less accurate in patients with extremes of muscle mass, restriction of dietary protein, ingestion of creatine, extra-renal metabolism of creatinine, or treatment with medications that affect renal tubular creatinine secretion. Free PSA/Total PSA [Mass fraction] 7.6 g/dL 6.3 - 8.2 g/dL [facility] GFR/1.73 sq M.predicted among blacks MDRD (S/P/Bld) [Vol rate/Area] mL/min/{1.73_m2} >60 mL/min [facility] Glucose [Mass/Vol] 99 mg/dL 70 - 100 mg/dL [facility] Interpretation and review of laboratory results Abnormal [facility] Potassium [Moles/Vol] 4.2 mmol/L 3.5 - 5.1 mmol/L [facility] Sodium [Moles/Vol] 135 mmol/L 135 - 145 mmol/L [facility] Urea nitrogen (BldV) [Mass/Vol] 8 mg/dL Low 9 - 20 mg/dL [facility] HCG Qualitative, Serumon hCG Qual Negative [facility] Comment on above: Reference Range: NEG ATIVE Effective 12/21/2019, the reference interval for the qualitative test has been updated. This test detects hCG at concentrations of 10 mIU/L or greater in serum. Test Performed by [facility], [address] , [address] LAB [facility] Hemogram w/ Autodiffon 03-17 Abs Baso Cnt 0.1 10*3/uL Normal 0.0-0.2 [facility] Comment on above: Performed By: #### L IPA4, QWAL2, HEMDF, CMP3 #### [facility] [address] [place] [address] Abs Neutrophile Cnt 9.1 10*3/uL High 1.8-7.0 [facility] Comment on above: Performed By: #### L IPA4, QWAL2, HEMDF, CMP3 #### [facility] [address] [place] [address] Basophils/100 WBC (Bld) 0.5 % Normal 0.0-2.0 [facility] Comment on above: Performed By: #### L IPA4, QWAL2, HEMDF, CMP3 #### [facility] [address] [place] [address] Eosinophils (Bld) [#/Vol] 0.1 10*3/uL Normal 0.0-0.5 [facility] Comment on above: Performed By: #### L IPA4, QWAL2, HEMDF, CMP3 #### [facility] [address] [place] [address] Eosinophils/100 WBC (Bld) 1.0 % Normal 1.0-6.0 [facility] Comment on above: Performed By: #### L IPA4, QWAL2, HEMDF, CMP3 #### [facility] [address] [place] [address] Erythrocyte distribution width (RBC) [Ratio] 12.3 % Normal 11.5-14.5 [facility] Comment on above: Performed By: #### L IPA4, QWAL2, HEMDF, CMP3 #### [facility] [address] [place] [address] Granulocytes/100 WBC (Bld) 75.8 % Normal 40.0-80.0 [facility] Comment on above: Performed By: #### L IPA4, QWAL2, HEMDF, CMP3 #### [facility] [address] [place] [address] Hematocrit (Bld) [Volume fraction] 40.0 % Normal 35.0-47.0 [facility] Comment on above: Performed By: #### L IPA4, QWAL2, HEMDF, CMP3 #### [facility] [address] [place] [address] Hemoglobin (Bld) [Mass/Vol] 13.8 g/dL Normal 11.7-16.0 [facility] Comment on above: Performed By: #### L IPA4, QWAL2, HEMDF, CMP3 #### [facility] [address] [place] [address] Lymphocytes (Bld) [#/Vol] 1.9 10*3/uL Normal 1.0-4.3 [facility] Comment on above: Performed By: #### L IPA4, QWAL2, HEMDF, CMP3 #### [facility] [address] [place] [address] Lymphocytes/100 WBC (Bld) 15.7 % Low 20.0-40.0 [facility] Comment on above: Performed By: #### L IPA4, QWAL2, HEMDF, CMP3 #### [facility] [address] [place] [address] MCH (RBC) [Entitic mass] 33.1 pg Normal 26.0-34.0 [facility] Comment on above: Performed By: #### L IPA4, QWAL2, HEMDF, CMP3 #### [facility] [address] [place] [address] MCHC 34.5 % Normal 32.0-36.0 [facility] Comment on above: Performed By: #### L IPA4, QWAL2, HEMDF, CMP3 #### [facility] [address] [place] [address] MCV (RBC) [Entitic vol] 95.9 fL Normal 79.0-98.0 [facility] Comment on above: Performed By: #### L IPA4, QWAL2, HEMDF, CMP3 #### [facility] [address] [place] [address] Monocytes (Bld) [#/Vol] 0.7 10*3/uL Normal 0.0-0.8 [facility] Comment on above: Performed By: #### L IPA4, QWAL2, HEMDF, CMP3 #### [facility] [address] [place] [address] Monocytes/100 WBC (Bld) 5.9 % Normal 2.0-10.0 [facility] Comment on above: Performed By: #### L IPA4, QWAL2, HEMDF, CMP3 #### [facility] [address] [place] [address] Platelet mean volume (Bld) [Entitic vol] 10.4 fL Normal 7.4-12.4 [facility] Comment on above: Result Comment: MPV is a calculated measurement using platelet volume ratio. Performed By: #### L IPA4, QWAL2, HEMDF, CMP3 #### [facility] [address] [place] [address] Platelets (Bld) [#/Vol] 228 10*3/uL Normal 140-440 [facility] Comment on above: Performed By: #### L IPA4, QWAL2, HEMDF, CMP3 #### [facility] [address] [place] [address] RBC (Bld) [#/Vol] 4.17 10*6/uL Normal 3.80-5.20 [facility] Comment on above: Performed By: #### L IPA4, QWAL2, HEMDF, CMP3 #### [facility] [address] [place] [address] WBC (Bld) [#/Vol] 12.0 10*3/uL High 3.6-10.7 [facility] Comment on above: Performed By: #### L IPA4, QWAL2, HEMDF, CMP3 #### [facility] [address] [place] [address] Lipaseon 03-17-2022 Lipase [Catalytic activity/Vol] 50 U/L Normal 23-300 [facility] Comment on above: Performed By: #### L IPA4, QWAL2, HEMDF, CMP3 #### [facility] [address] [place] [address] Lipase [Catalytic activity/Vol] 50 U/L 23 - 300 U/L [facility] No Panel Informationon 03-17 Test Performed by [facility], [address] , [address] LAB [facility] US NON OB TRANSVAGINALon Patient Name: JOAN MADERA Ultrasound ACCESSION EXAM DATE/TIME PROCEDURE ORDERING PROVIDER [id number] 03/17/2022 16:50 EDT US Transvaginal MD VALDEZ DOUGALAS R. CPT code 68372 Reason For Exam (US Transvaginal) looking for ovarian torsion or ruptured cyst. suprapubic pain, radiates right flank Report PELVIC ULTRASOUND CLINICAL INDICATION: Suprapubic and right flank pain. Transvaginal sonographic images of the pelvis were obtained. COMPARISON: CT scan of the abdomen and pelvis, same date. FINDINGS: UTERUS: Surgically absent OVARIES: Right: Surgically absent Left: 4.6 x 3.3 x 2.6 cm Parenchyma: The left ovary contains a 2.7 cm cyst with a daughter cyst and simple fluid. There is also a 1.4 cm follicle. Few tiny microcalcifications in the left ovary. Doppler: Normal color and spectral Doppler flow is seen. FLUID: No free fluid. OTHER: No adnexal masses are identified. IMPRESSION: Status post hysterectomy and right oophorectomy. 2.7 cm benign functional cyst in the left ovary. Otherwise normal appearance of the left ovary with no evidence of ovarian torsion. Ultrasound Report Report Dictated on --- Final --- Dictating Physician: MD SARABIA THOMAS Signed Date and Time: 03/17/2022 5:11 pm Signed by: MD SARABIA THOMAS Transcribed Date and Time: 03/17/2022 5:12 [facility] Jose Sarabia M D - 03/17/2022 Patient Name: JOAN FOLEY Ultrasound ACCESSION EXAM DATE/TIME PROCEDURE ORDERING PROVIDER [id number] 03/17/2022 16:50 EDT US Transvaginal MD VALDEZ DOUGALAS R. CPT code 13050 Reason For Exam (US Transvaginal) looking for ovarian torsion or ruptured cyst. suprapubic pain, radiates right flank Report PELVIC ULTRASOUND CLINICAL INDICATION: Suprapubic and right flank pain. Transvaginal sonographic images of the pelvis were obtained. COMPARISON: CT scan of the abdomen and pelvis, same date. FINDINGS: UTERUS: Surgically absent OVARIES: Right: Surgically absent Left: 4.6 x 3.3 x 2.6 cm Parenchyma: The left ovary contains a 2.7 cm cyst with a daughter cyst and simple fluid. There is also a 1.4 cm follicle. Few tiny microcalcifications in the left ovary. Doppler: Normal color and spectral Doppler flow is seen. FLUID: No free fluid. OTHER: No adnexal masses are identified. IMPRESSION: Status post hysterectomy and right oophorectomy. 2.7 cm benign functional cyst in the left ovary. Otherwise normal appearance of the left ovary with no evidence of ovarian torsion. Ultrasound Report Report Dictated on --- Final --- Dictating Physician: MD SARABIA THOMAS Signed Date and Time: 03/17/2022 5:11 pm Signed by: MD SARABIA THOMAS Transcribed Date and Time: 03/17/2022 5:12 [facility] Work Phone: Radiology Study observation (narrative) [facility] Work Phone: US NON OB TRANSVAGINALOrdere d By: Jose Sarabia on 03-17-2022 [facility] Work Phone: US Transvaginalon 03-17-2022 US Transvaginal Patient Name: JOAN FOLEY Ultrasound ACCESSION EXAM DATE/TIME PROCEDURE ORDERING PROVIDER [id number] 03/17/2022 16:50 EDT US Transvaginal MD COURTNEY, SEGUN Calvo CPT code 71326 Reason For Exam (US Transvaginal) looking for ovarian torsion or ruptured cyst. suprapubic pain, radiates right flank Report PELVIC ULTRASOUND CLINICAL INDICATION: Suprapubic and right flank pain. Transvaginal sonographic images of the pelvis were obtained. COMPARISON: CT scan of the abdomen and pelvis, same date. FINDINGS: UTERUS: Surgically absent OVARIES: Right: Surgically absent Left: 4.6 x 3.3 x 2.6 cm Parenchyma: The left ovary contains a 2.7 cm cyst with a daughter cyst and simple fluid. There is also a 1.4 cm follicle. Few tiny microcalcifications in the left ovary. Doppler: Normal color and spectral Doppler flow is seen. FLUID: No free fluid. OTHER: No adnexal masses are identified. IMPRESSION: Status post hysterectomy and right oophorectomy. 2.7 cm benign functional cyst in the left ovary. Otherwise normal appearance of the left ovary with no evidence of ovarian torsion. Ultrasound Report Report Dictated on Final Dictating Physician: MD SARABIA THOMAS Signed Date and Time: 03/17/2022 5:11 pm Signed by: MD SARABIA THOMAS Transcribed Date and Time: 03/17/2022 5:12 Normal [facility] Urinalysison 03-17-2022 Appearance (U) Clear Clear NA [facility] Comment on above: . Bilirubin Urine Negative Negative mg/dL [facility] Comment on above: . Color (U) COLORLESS Lt. Yellow NA [facility] Comment on above: . Glucose, Ur Normal Normal (<70) mg/dL [facility] Comment on above: . Interpretation and review of laboratory results Abnormal [facility] Ketones Ql (U) 10 mg/dL Abnormal Negative [facility] Comment on above: . LEUKOCYTES, UA Negative Negative Charlie/uL [facility] Comment on above: . Nitrite, Urine Negative Negative NA [facility] Comment on above: . Occult Blood,Urine Negative Negative mg/dL [facility] Comment on above: . pH (U) 6.5 [pH] [facility] Comment on above: . Specific [place], Urine 1.006 [facility] Comment on above: . Total Protein, Urine Negative Negativ e mg/dL [facility] Comment on above: . Urobilinogen, Urine Normal Normal (0-1) mg/dL [facility] Comment on above: . Test Performed by [facility], [address] , [address] LAB [facility] hCG Qual [place] 03-17-2022 hCG Qual Preg Negative Normal [facility] Comment on above: Result Comment: Refe rence Range: NEGATIVE Effective 12/21/2019, the reference interval for the qualitative test has been updated. This test detects hCG at concentrations of 10 mIU/L or greater in serum. Performed By: #### L IPA4, QWAL2, HEMDF, CMP3 #### [facility] [address] [place] [address] COLONOSCOPY DIAGNOSTICon [facility] EGD DIAGNOSTICon 03-15-2022 [facility] CALPROTECTIN,FECALon 022 Calprotectin (Stl) [Mass/Mass] <27.1 0 - 50 mg/kg [facility] C. DIFFICILE PCRon C. difficile toxin genes JEANNE+probe Ql (Stl) Positive Abnormal Negative for C. difficile toxin by PCR [facility] FECAL OCCULT BLOOD TESTon Lower GI hemoglobin IA Ql (Stl) Negative Negative [facility] G. lamblia+Cryptosporidium s p Ag IA Ql (Stl)on 01-14-2022 Cryptosporidium sp Ag Ql (Stl) Negative Negative [facility] G. lamblia Ag Ql (Stl) Negative Negative [facility] Gastrointestinal pathogens i dentified JEANNE+probe Nom (Stl)on 01-14-2022 Campylobacter sp DNA JEANNE+probe Nom (Unsp spec) Not detected Not Detected [facility] Salmonella sp DNA JEANNE+probe Ql (Unsp spec) Not detected Not Detected [facility] Shiga toxin stx gene JEANNE+probe Nom (Unsp spec) Not detected Not Detected [facility] Shigella sp DNA JEANNE+probe Ql (Unsp spec) Not detected Not Detected [facility] H. pylori IgG IA Qlon 2021 H. pylori IgG, Qualitative Negative Negative [facility] C-REACTIVE PROTEIN (CRP)on 0 01-12-2022 CRP [Mass/Vol] 0.7 mg/dL <0.9 mg/dL [facility] ALLIED HEALTHon 09-11-2021 [facility] HNO ID: [id number] Author: Sara Lucia RT(R) Service: Radiology Author Type: Technologist Type: Allied Health Filed: 09/11/2021 4:54 PM Note Text: Radiology Service Progress Note PATIENT NAME: Joan Foley DATE OF SERVICE: September 11, 2021 TIME: 4:53 PM PATIENT IDENTITY VERIFICATION COMPLETED USING TWO (2) IDENTIFIERS: Name and Date of confirmed by patient verbally. FALL SCREENING: Has the patient had 2 falls in the last year or 1 fall with injury or currently using an Ambulatory Assistive Device (Walker, Cane, Wheelchair, Crutches, etc.)? Emergency Room Patient: Screened in ED PATIENT GENDER DATA: Female. status: : No status: NO. PATIENT RELEVANT IMPLANT DATA REVIEWED: Not Applicable RADIOLOGY DEPARTMENT: General X-ray: Exam(s) Completed: Upper Extremity X-Ray(s): Wrist, right and Hand, right PERIPHERAL IV DATA: Not applicable SIGNED BY: RT Troy(R) September 11, 2021 4:53 PM [facility] ED NOTEon 09-11-2021 ED NOTE HNO ID: [id number] Author: Rayna Brown RN Service: ? Author Type: Registered Nurse Type: ED Notes Filed: 09/11/2021 5:57 PM Note Text: Discharge instructions provided to pt. All questions answered. Pt ambulated to [facility] stable condition. [facility] ED NOTE HNO ID: [id number] Author: Michelle Siddiqi RN Service: ? Author Type: Registered Nurse Type: ED Notes Filed: 09/11/2021 4:31 PM Note Text: Pt to ED with c/c dog bite to right wrist 1 puncture site on Tuesday. Pt went to [facility] emergency department and sent to ED. Pt states pain traveling down to fingers no red streaks noted or signs of sever infection. Pt states taking motrin around 1300 today and having mild fevers on and off since yesterday. [facility] ED PROV NOTEon 09-11-2021 ED PROV NOTE HNO ID: [id number] Author: Sadia Reaves PA-C Service: ? Author Type: Physician [employer] Type: ED Provider Notes Filed: 09/11/2021 5:35 PM Note Text: ED Provider Note Patient Name: Joan Foley SERVICE DATE: 09/11/21 History Patient presents with: Dog Bite: tuesday 400Is a 41-year-old female presenting to the ER after she was bit by her neighbors dog on her right forearm on Tuesday. She was with her dog on a leash in the backyard and it is not since then and she turned around and the neighbors dog was there and bit her on the right forearm. There is some bruising and tenderness. She took a grams of Motrin at 1:00. Went to an urgent care and came here for further evaluation she states she is been running low-grade temps. No discharge or redness. More bruising and pain. She is right-hand dominant. Unsure of her last tetanus shot. PAST MEDICAL HISTORY Diagnosis Date - Abdominal pain - Anemia - Dyspepsia - Endometriosis - Fatty liver - Hypertension - IBS (irritable bowel syndrome) - Liver mass - Post-cholecystectomy syndrome - Renal disorder MASS DISCOVERED 12/2018 - RUQ pain 06/10/14 - Vitamin D deficiency PAST SURGICAL HISTORY Procedure Laterality Date - COLONOSCOPY W/BIOPSY 2013 - CYST/MOLE REMOVAL Bilateral Left wrist, right hand - EGD DILATION - ENDOSCOPY PROC 2013 bxs - LAP CHOLECYSTECT/CHOLANGIOG TAY 04/24/14 Normal IOC - LIVER SURGERY HX 10/2018 ABLATION FOR MASS - PAST SURGICAL HISTORY OF appendectomy - PAST SURGICAL HISTORY OF dental procedures - PAST SURGICAL HISTORY OF diagnostic laparoscopy - PAST SURGICAL HISTORY OF Carpal tunnel release, right - PAST SURGICAL HISTORY OF as a child removed a piece of lead from skull - TOTAL ABDOM HYSTERECTOMY 2003 Hysterectomy, AMANDA FAMILY HISTORY Adopted: Yes Problem Relation Age of Onset - other (adopted) Other Social History Tobacco Use - Smoking status: Former Smoker Packs/day: 0.50 Years: 11.00 Pack years: 5.50 Types: Cigarettes - Smokeless tobacco: Never Used - Tobacco comment: quit in Nov 2020 Vaping Use - Vaping Use: Never used Substance and Sexual Activity - Alcohol use: Yes Comment: occ - Drug use: No - Sexual activity: Yes Partners: Male control/protection: Surgical ALLERGIES Allergen Reactions - Penicillins Hives, Anaphylaxis, Shortness of Breath - Chantix [Vareniclin* Other: See Comments Mood changes (irritability), flu like symptoms, body aching - Demerol [Meperidine* Other: See Comments Nausea - Latex Other: See Comments my skin starts pealing off - Morphine Hives, Itching - Propoxyphene Intolerance Review of Systems Constitutional: Negative. Negative for activity change. HENT: Negative. Negative for congestion, ear pain, rhinorrhea and sore throat. Eyes: Negative. Negative for pain, discharge and redness. Respiratory: Negative. Negative for chest tightness. Cardiovascular: Negative. Gastrointestinal: Negative. Endocrine: Negative. Genitourinary: Negative. Negative for frequency and urgency. Musculoskeletal: Negative. Negative for arthralgias. Skin: Positive for color change. Bruising to the right forearm and a dog bite Neurological: Negative. Negative for weakness and light-headedness. Psychiatric/Behavioral: Negative. Physical Exam Vitals [09/11/21 1627] BP Pulse Temp Temp src Resp SpO2 Weight Height 130/64 (!) 102 36.8 ?C (98.3 ?F) Oral 18 97 % 86.6 kg (191 lb) 1.626 m (5' 4) Physical Exam Constitutional: Appearance: She is well-developed. HENT: Head: Normocephalic and atraumatic. Eyes: Conjunctiva/sclera: Conjunctivae normal. Pupils: Pupils are equal, round, and reactive to light. Cardiovascular: Rate and Rhythm: Normal rate and regular rhythm. Heart sounds: Normal heart sounds. Pulmonary: Effort: Pulmonary effort is normal. Breath sounds: Normal breath sounds. Abdominal: General: Bowel sounds are normal. Palpations: Abdomen is soft. Musculoskeletal: General: Tenderness and signs of injury present. Normal range of motion. Right wrist: Tenderness present. Arms: Cervical back: Normal range of motion and neck supple. Comments: Full range of motion. Ecchymosis is noted on the posterior aspect of the distal forearm. Superficial puncture wound noted in the center of the ecchymosis. Skin: General: Skin is warm and dry. Neurological: Mental Status: She is alert and oriented to person, place, and time. Diagnostic Testing XR WRIST INJURY 4V PA/LAT/OBL/SCAPH RIGHT Final Result IMPRESSION: No acute bony abnormality. No radiopaque foreign body. Pharmacy Services Director: PSC[facility] Transcribe Date/Time: Sep 11 2021 4:56P Dictated by : Essie MOORE MD This examination was interpreted and the report reviewed and electronically signed by: Essie MOORE MD on Sep 11 2021 4:59PM EST XR HAND GENERAL 3V PA/LAT/OBL RIGHT Final Result IMPRESSION: No acute sherwin (more content not included)... Normal [facility] XR HAND 3V PA/LAT/OBL RTon 1 11-12-2020 XR HAND 3V PA/LAT/OBL RT * * *Final Report* * * DATE OF EXAM: Sep 11 2021 4:52PM MDX 5346 - XR HAND 3V PA/LAT/OBL RT / PROCEDURE REASON: Hand pain, traumatic * * * * Physician Interpretation * * * * EXAM: XR WRIST 4V PA/LAT/OBL/SCAPH RT, XR HAND 3V PA/LAT/OBL RT HISTORY: Hand pain, traumatic. Dog bite. VIEWS: PA, oblique, lateral and navicular right wrist. PA, oblique and lateral right hand. COMPARISON: No relevant comparison. FINDINGS: No dislocation or acute fracture at right hand or wrist. Joint spaces are maintained. No radiopaque foreign body. IMPRESSION: No acute bony abnormality. No radiopaque foreign body. Pharmacy Services Director: [employer] Transcribe Date/Time: Sep 11 2021 4:56P Dictated by : Essie MOORE MD This examination was interpreted and the report reviewed and electronically signed by: Essie MOORE MD on Sep 11 2021 4:59PM EST [id number] [facility] XR WRIST 4V PA/LAT/OBL/SCAPH RTon 09-11-2021 XR WRIST 4V PA/LAT/OBL/SCAPH RT * * *Final Report* * * DATE OF EXAM: Sep 11 2021 4:52PM MDX 5273 - XR WRIST 4V PA/LAT/OBL/SCAPH RT / PROCEDURE REASON: Hand pain, traumatic * * * * Physician Interpretation * * * * EXAM: XR WRIST 4V PA/LAT/OBL/SCAPH RT, XR HAND 3V PA/LAT/OBL RT HISTORY: Hand pain, traumatic. Dog bite. VIEWS: PA, oblique, lateral and navicular right wrist. PA, oblique and lateral right hand. COMPARISON: No relevant comparison. FINDINGS: No dislocation or acute fracture at right hand or wrist. Joint spaces are maintained. No radiopaque foreign body. IMPRESSION: No acute bony abnormality. No radiopaque foreign body. Pharmacy Services Director: [employer] Transcribe Date/Time: Sep 11 2021 4:56P Dictated by : Essie MOORE MD This examination was interpreted and the report reviewed and electronically signed by: Essie MOORE MD on Sep 11 2021 4:59PM EST [id number] [facility] XR Lumbar spine 3 Viewson IMPRESSION: No radiographic evidence of acute osseous abnormality Pharmacy Services Director: [facility] Transcribe Date/Time: Aug 12 2021 4:52P Dictated by : KELSIE CARDENAS MD This examination was interpreted and the report reviewed and electronically signed by: KELSIE CARDENAS MD on Aug 12 2021 4:52PM EST DIVISION OF RADIOLOGY * * *Final Report* * * DATE OF EXAM: Aug 12 2021 3:42PM WOX 5228 - XR LUMBAR 3V AP/LAT/L5-S1 / PROCEDURE REASON: Muscle weakness * * * * Physician Interpretation * * * * CLINICAL INDICATION: Weakness TECHNIQUE: 3 view radiographic study of the lumbar COMPARISON: None FINDINGS: There are 5 nonrib-bearing lumbar type vertebral bodies. There is preservation of vertebral body height and disc space height. DIVISION OF RADIOLOGY Provider, Dani Ulloa [facility] - 08/12/2021 * * *Final Report* * * DATE OF EXAM: Aug 12 2021 3:42PM WOX 5228 - XR LUMBAR 3V AP/LAT/L5-S1 / PROCEDURE REASON: Muscle weakness * * * * Physician Interpretation * * * * CLINICAL INDICATION: Weakness TECHNIQUE: 3 view radiographic study of the lumbar COMPARISON: None FINDINGS: There are 5 nonrib-bearing lumbar type vertebral bodies. There is preservation of vertebral body height and disc space height. IMPRESSION IMPRESSION: No radiographic evidence of acute osseous abnormality Pharmacy Services Director: [facility] Transcribe Date/Time: Aug 12 2021 4:52P Dictated by : KELSIE CARDENAS MD This examination was interpreted and the report reviewed and electronically signed by: KELSIE CARDENAS MD on Aug 12 2021 4:52PM EST [facility] Radiology Study observation (narrative) Jessica alcaraz [facility] XR Lumbar spine 3 ViewsOrder ed By: Cc Provider on 08-12-2021 [facility] Comprehensive Panelon 2019 ALP [Catalytic activity/Vol] 72 U/L Normal 45-117 [facility] Comment on above: Performed By: #### P 14 #### [place] [address] Protein [Mass/Vol] 5.9 g/dL Low 6.4-8.2 [facility] Comment on above: Performed By: #### P 14 #### [facility] [address] [place], [place] [address] Bilirubin [Mass/Vol] 0.5 mg/dL Normal 0.2-1.0 [facility] Comment on above: Performed By: #### P 14 #### [facility] [address] [place], [place] [address] ALT [Catalytic activity/Vol] 153 U/L High 12-78 [facility] Comment on above: Performed By: #### P 14 #### [facility] [address] [place], [place] [address] AST [Catalytic activity/Vol] 95 U/L High 15-37 [facility] Comment on above: Performed By: #### P 14 #### [facility] [address] [place], [place] [address] Creatinine [Mass/Vol] 0.72 mg/dL Normal 0.51-0.95 [facility] Comment on above: Result Comment: Use of this assay is not recommended for patients undergoing treatment with phenindione, due to the potential for falsely depressed results. Performed By: #### P 14 #### [facility] [address] [place], [place] [address] Anion gap [Moles/Vol] 6 mmol/L Low 8-16 [facility] Comment on above: Performed By: #### P 14 #### [facility] [address] [place], [place] [address] CO2 [Moles/Vol] 28 mmol/L Normal 21-32 [facility] Comment on above: Performed By: #### P 14 #### [facility] [address] [place], [place] [address] Glucose [Mass/Vol] 117 mg/dL High 70-99 [facility] Comment on above: Performed By: #### P 14 #### [facility] [address] [place], [place] [address] Albumin [Mass/Vol] 3.2 g/dL Low 3.4-5.0 [facility] Comment on above: Performed By: #### P 14 #### [facility] [address] [place], [place] [address] Calcium [Mass/Vol] 8.2 mg/dL Low 8.5-10.1 [facility] Comment on above: Performed By: #### P 14 #### [facility] [address] [place], [place] [address] Urea nitrogen [Mass/Vol] 8 mg/dL Normal 7-18 [facility] Comment on above: Performed By: #### P 14 #### [facility] [address] [place], [place] [address] Chloride [Moles/Vol] 109 mmol/L High 98-107 [facility] Comment on above: Performed By: #### P 14 #### [facility] [address] [place], [place] [address] Potassium [Moles/Vol] 3.7 mmol/L Normal 3.5-5.1 [facility] Comment on above: Performed By: #### P 14 #### [address] [address] Sodium [Moles/Vol] 139 mmol/L Normal 136-145 [facility] Comment on above: Performed By: #### P 14 #### [address] [address] D-Dimer Quantitativeon 10-27 D-Dimer, Quant. <=190 Normal <500 [facility] Comment on above: Result Comment: 500 ng/mL FEU is the D-dimer cutoff to exclude DVT (deep vein thrombosis)and PE (pulmonary embolism)in patients with a low pre-test probability. Supplemental Comment: In patients over 50 years with a low Pre-test probability for DVT and/or PE, an age-adjusted D-dimer cutoff can be calculated as [age X 10] ng/mL FEU. For example, a patient of 88 years would have an age-adjusted D-dimer of 880 ng/mL FEU. For patients with a suspected DVT, a D-dimer level below 500 ng/mL FEU has a negative predictive value of >=99.0%, a sensitivity of >=97.0% and a specificity of >=35.8%. Performed By: #### D DMRN #### [address] [place] [address] Hemogramon 10-27-2019 Erythrocyte distribution width (RBC) [Ratio] 11.9 % Normal 11.7-14.4 [facility] Comment on above: Performed By: #### C BC1 #### [facility] [address] [place] [address] Hematocrit (Bld) [Volume fraction] 35.6 % Normal 34.1-44.9 [facility] Comment on above: Performed By: #### C BC1 #### [facility] [address] [place] [address] Hemoglobin (Bld) [Mass/Vol] 11.8 g/dL Normal 11.2-15.7 [facility] Comment on above: Performed By: #### C BC1 #### [facility] [address] [place] [address] MCH (RBC) [Entitic mass] 33.1 pg High 25.6-32.2 [facility] Comment on above: Performed By: #### C BC1 #### [facility] [address] [place] [address] MCHC (RBC) [Mass/Vol] 33.1 % Normal 31.6-34.8 [facility] Comment on above: Performed By: #### C BC1 #### [facility] [address] [place] [address] MCV (RBC) [Entitic vol] 100.0 fL High 79.4-94.8 [facility] Comment on above: Performed By: #### C BC1 #### [facility] [address] [place] [address] Platelet mean volume (Bld) [Entitic vol] 9.8 fL Normal 9.4-12.3 [facility] Comment on above: Performed By: #### C BC1 #### [facility] [address] [place] [address] Platelets (Bld) [#/Vol] 205 thou/cmm Normal 182-369 [facility] Comment on above: Performed By: #### C BC1 #### [facility] [address] [place] [address] RBC (Bld) [#/Vol] 3.56 mil/cmm Low 3.93-5.22 [facility] Comment on above: Performed By: #### C BC1 #### [facility] [address] [place] [address] RDW SD 43.7 fl Normal 36.4-46.3 [facility] Comment on above: Performed By: #### C BC1 #### [place] [address] WBC (Bld) [#/Vol] 6.44 thou/cmm Normal 3.98-10.04 [facility] Comment on above: Performed By: #### C BC1 #### [place] [address] MDRD GFRon 10-27-2019 GFR/1.73 sq M predicted among non-blacks MDRD (S/P/Bld) [Vol rate/Area] mL/min/{1.73_m2} Normal >60mL/min/1 .73m2 [facility] Comment on above: Result Comment: If t he patient is , multiply the result by 1.210. Performed By: #### G FR #### [place] [address] Urinalysis Routineon 020 Bacteria LM.HPF (Urine sed) [#/Area] NONE Normal None [facility] Comment on above: Performed By: #### U RIN2 #### [facility] [address] [place] [address] Ep Cells Urine 3.5 /hpf Normal 0.0-5.0 [facility] Comment on above: Performed By: #### U RIN2 #### [place] [address] Hyaline Cast 2.4 /lpf High 0.0-1.0 [facility] Comment on above: Performed By: #### U RIN2 #### [place] [address] RBC LM.HPF (Urine sed) [#/Area] 0.6 /[HPF] Normal 0.0-5.0 [facility] Comment on above: Performed By: #### U RIN2 #### [facility] [address] [place] [address] WBC LM.HPF (Urine sed) [#/Area] 0.8 /[HPF] Normal 0.0-5.0 [facility] Comment on above: Performed By: #### U RIN2 #### [facility] [address] [place] [address] Appearance (U) CLEAR Normal [facility] Comment on above: Performed By: #### U RIN2 #### [facility] [address] [place] [address] Bilirubin (U) [Mass/Vol] Negative Normal Negative [facility] Comment on above: Performed By: #### U RIN2 #### [facility] [address] [place] [address] Color (U) YELLOW Normal [facility] Comment on above: Performed By: #### U RIN2 #### [facility] [address] [place] [address] Glucose Ql (U) Negative Normal Negative [facility] Comment on above: Performed By: #### U RIN2 #### [facility] [address] [place] [address] Hemoglobin,Urine Negative Normal Negative [facility] Comment on above: Performed By: #### U RIN2 #### [place] [address] Ketone Urine TRACE Abnormal Negative [facility] Comment on above: Performed By: #### U RIN2 #### [place] [address] Leukocytes Esterase Negative Normal Negative [facility] Comment on above: Performed By: #### U RIN2 #### [place] [address] Nitrites Urine Negative Normal Negative [facility] Comment on above: Performed By: #### U RIN2 #### [place] [address] pH (U) 5.0 [pH] Normal 5.0-8.0 [facility] Comment on above: Performed By: #### U RIN2 #### [facility] [address] [place], [place] [address] Protein (U) [Mass/Vol] Negative Normal Negative [facility] Comment on above: Performed By: #### U RIN2 #### [facility] [address] [place], [place] [address] Specific [place], Ur 1.031 Normal 1.005-1.030 [facility] Comment on above: Performed By: #### U RIN2 #### [facility] [address] [place], [place] [address] Urobilinogen,Ur 0.2 EU/dL Normal 0.2-1.0 [facility] Comment on above: Performed By: #### U RIN2 #### [facility] [address] [place], [place] [address] XR FOOT 3V AP/LAT/OBL RTon 1 10-17-2018 XR FOOT 3V AP/LAT/OBL RT * * *Final Report* * * DATE OF EXAM: Aug 17 2019 10:28AM LDX 5337 - XR FOOT 3V AP/LAT/OBL RT / PROCEDURE REASON: Foot trauma, [place] positive, fx suspected, initial exam * * * * Physician Interpretation * * * * XR FOOT 3V AP/LAT/OBL RT HISTORY: 39 years old Clinical information: Foot trauma, [place] positive, fx suspected, initial exam PT DROPPED PLEXIGLAS ON R FOOT LAST NIGHT 08/16 TECHNIQUE: Images: XR FOOT 3V AP/LAT/OBL RT Comparison: None. RESULT: Metatarsal and tarsal bones appear intact No fractures or dislocations are seen. IMPRESSION: No acute pathology. Pharmacy Services Director: [facility] Transcribe Date/Time: Aug 17 2019 11:17A Dictated by : ALTA BOWERS MD This examination was interpreted and the report reviewed and electronically signed by: ALTA BOWERS MD on Aug 17 2019 11:18AM EST Normal [facility] CT FLANK WO IVCONon 02-08-[address] FLANK WO IVCON * * *Final Report* * * DATE OF EXAM: Feb 07 2019 8:00AM [facility] 0529 - CT FLANK WO IVCON / PROCEDURE REASON: Kidney stone * * * * Physician Interpretation * * * * EXAMINATION: CT ABDOMEN AND PELVIS WITHOUT IV CONTRAST (Renal stone protocol) CLINICAL HISTORY: Unspecified flank pain. Kidney stone flank pain TECHNIQUE: Non-contrast imaging of the abdomen and pelvis was performed through the urinary tract. Study performed without intravenous or oral contrast to evaluate for urinary tract calculus. MQ: [id number] Contrast: IV contrast: None Oral contrast: None CT Radiation dose: Integrated dose-length product (DLP) for this visit = 775 mGy*cm. CT Dose Reduction Employed: Automated exposure control (AEC) COMPARISON: None. RESULT: Limitations: Unenhanced imaging is limited for the evaluation of some renal and other intra-abdominal and pelvic pathology. Urinary Tract: Right kidney and ureter: No calculus. No hydronephrosis. No finding to suggest cyst or mass in the unenhanced kidney. Left kidney and ureter: No calculus. No hydronephrosis. No finding to suggest cyst or mass in the unenhanced kidney. Bladder: No calculus. Abdomen and Pelvis: Liver: Hepatic steatosis. 4.7 x 3.2 x 2.7 cm heterogeneous hypodense mass in the right lobe of the liver laterally. Biliary: S/p cholecystectomy. Spleen: No splenomegaly. Pancreas: Unremarkable. Adrenals: Normal. GI Tract: No bowel dilation. Appendix not visualized due to previous surgery. No diverticulosis of the colon. Lymph Nodes: No lymphadenopathy. Mesentery/peritoneum: No ascites. Vasculature: No abdominal aortic or iliac artery aneurysm. Pelvis: No mass or ascites. The intracystic absent due to previous surgery. Bones/Soft Tissues: No acute abnormality. Lower thorax: Unremarkable. IMPRESSION: NO URINARY TRACT CALCULUS. NO HYDRONEPHROSIS. Hepatic steatosis. 4.7 x 3.2 x 2.7 cm heterogeneous hypodense mass in the right lobe of the liver. Further evaluation with MRI is recommended. NOTE: Small (Followup + Medical Reason): There is one or more incidental lesions in the liver, kidney or adrenal gland that require further imaging characterization or follow-up as discussed, because of the history of a primary tumor or systemic disease that could result in clinically relevant disease to these organs. Pharmacy Services Director: [facility] Transcribe Date/Time: Feb 07 2019 8:06A Dictated by : ERNIE BENDER MD This examination was interpreted and the report reviewed and electronically signed by: ERNIE BENDER MD on Feb 07 2019 4:05PM EST [id number] [facility] PROGRESSon 02-07-2019 Protein mass conc HNO ID: [id number] Author: CHELY Sheikh (Ct) Service: Radiology Author Type: Needle Control [employer] Type: Progress Notes Filed: 02/07/2019 7:58 AM Note Text: Radiology Service Progress Note PATIENT NAME: Joan Herrera DATE OF SERVICE: February 07, 2019 TIME: 7:58 AM PATIENT IDENTITY VERIFICATION COMPLETED USING TWO (2) METHODS: Patient confirmed name verbally and ID band matches.. PATIENT GENDER DATA: Female. status: : No status: NO. PATIENT RELEVANT IMPLANT DATA REVIEWED: Yes RADIOLOGY DEPARTMENT: CT; Exam(s) Completed: Abdomen/Pelvis PERIPHERAL IV DATA: Not applicable SIGNED BY: CHELY Sheikh February 07, 2019 7:58 AM [facility] Office Visiton 06-23-2017 Fall risk assessment No Invalid Interpretation Code [facility] [employer] Work Phone: [phone] Protein mass conc Done Invalid Interpretation Code [facility] [employer] Work Phone: [phone] Tobacco smoking status NHIS Current every day smoker Invalid Interpretation Code [facility] [employer] Work Phone: [phone] Coumadin Management: Warfari n Calcon 06-09-2017 INR Coag RelTime (Bld) Hospital lab Invalid Interpretation Code [facility] [employer] Work Phone: [phone] INR Coag RelTime (PPP) 2.4 {INR} Invalid Interpretation Code [facility] [employer] Work Phone: [phone] international normalized ratio (INR) range 2 to 3 Invalid Interpretation Code [facility] [employer] Work Phone: [phone] Prothrombin time (PT) Coag time (PPP) 25.4 s Invalid Interpretation Code [facility] [employer] Work Phone: [phone] Lab Report: Prothrombin Time w/INRon 06-09-2017 Prothrombin time (PT) Coag time (PPP) 25.4 s High 11.7-14.9 [facility] [employer] Work Phone: [phone] Coumadin Management: Warfari n Calcon 05-30-2017 INR Coag RelTime (Bld) Hospital lab [facility] Work Phone: [phone] INR Coag RelTime (PPP) 2.9 {INR} [facility] Work Phone: [phone] international normalized ratio (INR) range 2 to 3 [facility] Work Phone: [phone] Prothrombin time (PT) Coag time (PPP) 29.0 s [facility] Work Phone: [phone] Lab Report: Prothrombin Time w/INRon 05-30-2017 Prothrombin time (PT) Coag time (PPP) 29 s High 11.7-14.9 [facility] Work Phone: [phone] Coumadin Management: Warfari n Calcon 05-23-2017 Coagulation tissue factor induced in platelet poor plasma 22.2 s Invalid Interpretation Code [facility] Work Phone: [phone] INR in blood by coagulation Hospital lab Invalid Interpretation Code [facility] Work Phone: [phone] INR in blood by coagulation 2.0 {INR} Invalid Interpretation Code [facility] Work Phone: [phone] INR in blood by coagulation 2 to 3 Invalid Interpretation Code [facility] Work Phone: [phone] Lab Report: Prothrombin Time w/INRon 05-23-2017 Coagulation tissue factor induced in platelet poor plasma 22.2 s High 11.7-14.9 [facility] Work Phone: [phone] Coumadin Management: Warfari n Calcon 05-20-2017 Coagulation tissue factor induced in platelet poor plasma 16.0 s Invalid Interpretation Code [facility] Work Phone: [phone] INR in blood by coagulation Hospital lab Invalid Interpretation Code [facility] Work Phone: [phone] INR in blood by coagulation 1.3 {INR} Invalid Interpretation Code [facility] Work Phone: [phone] INR in blood by coagulation 2 to 3 Invalid Interpretation Code [facility] Work Phone: [phone] Lab Report: Prothrombin Time w/INRon 05-20-2017 Coagulation tissue factor induced in platelet poor plasma 16 s High 11.7-14.9 [facility] Work Phone: Coumadin Management: Fern garcia Calcon 05-18-2017 Coagulation tissue factor induced in platelet poor plasma 18.3 s Invalid Interpretation Code [facility] Work Phone: [phone] INR in blood by coagulation Hospital lab Invalid Interpretation Code [facility] [facility] Work Phone: [phone] INR in blood by coagulation 1.6 {INR} Invalid Interpretation Code [facility] Work Phone: [phone] INR in blood by coagulation 2 to 3 Invalid Interpretation Code [facility] Work Phone: [phone] Lab Report: Prothrombin Time w/INRon 05-18-2017 Coagulation tissue factor induced in platelet poor plasma 18.3 s High 11.7-14.9 [facility] Work Phone: [phone] Clinical Lists 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: 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 05-16-2017 Left ventricular Ejection fraction 65 % Invalid Interpretation Code [facility] Work Phone: [phone] Office Visiton 05-16-2017 Documentation of current medications (procedure) Done Invalid Interpretation Code [facility] Work Phone: [phone] Fall risk assessment Fall risk assessment Invali d Interpretation Code [facility] Work Phone: [phone] Protein mass conc Done [facility] Work Phone: [phone] Vital Signs Date Time Vital Sign Value Performing Clinician Facility 04-03-2025 16:31-0400 Body mass index (BMI) [Ratio] 24.72 kg/m2 [employer]ANT MAINTAINER.ECOMMERCE MANAGER Work Phone: [facility] 04-03-2025 16:31-0400 Body weight 65.32 kg HYDROELECT[employer]IC PLANT MAINTAINER.ECOMMERCE MANAGER Work Phone: [facility] 04-03-2025 16:31-0400 Diastolic blood pressure 68 mm[Hg] HYDROELECT[employer]IC PLANT MAINTAINER.ECOMMERCE MANAGER Work Phone: [facility] 04-03-2025 16:31-0400 Heart rate 90 /min HYDROELECT[employer]IC PLANT MAINTAINER.ECOMMERCE MANAGER Work Phone: [facility] 04-03-2025 16:31-0400 Respiratory rate 16 /min Older HYDROELECTRIC PLANT MAINTAINER.ECOMMERCE MANAGER Work Phone: [facility] 04-03-2025 16:31-0400 SaO2% (BldA) [Mass fraction] 99 % Carole Older HYDROELECTRIC PLANT MAINTAINER.ECOMMERCE MANAGER Work Phone: [facility] 04-03-2025 16:31-0400 Systolic blood pressure 122 mm[Hg] Carole Older HYDROELECT[employer]IC PLANT MAINTAINER.ECOMMERCE MANAGER Work Phone: [facility] 12-11-2024 16:36-0500 Body mass index (BMI) [Ratio] 27.02 kg/m2 Lindsay Crockett [employer]DROELECT[employer]IC PLANT MAINTAINER.ECOMMERCE MANAGER Work Phone: [facility] 12-11-2024 16:36-0500 Body temperature 98.6 [degF] Lindsay Crockett HYDROELECT[employer]IC PLANT MAINTAINER.ECOMMERCE MANAGER Work Phone: [facility] 12-11-2024 16:36-0500 Body weight 71.4 kg Lindsay Crockett HYDROELECT[employer]IC PLANT MAINTAINER.ECOMMERCE MANAGER Work Phone: [facility] 12-11-2024 16:36-0500 Diastolic blood pressure 80 mm[Hg] Lindsay Crockett HYDROELECTRIC PLANT MAINTAINER.ECOMMERCE MANAGER Work Phone: [facility] 12-11-2024 16:36-0500 Heart rate 100 /min Lindsay Crockett HYDROELECTRIC PLANT MAINTAINER.ECOMMERCE MANAGER Work Phone: [facility] 12-11-2024 16:36-0500 Respiratory rate 18 /min Lindsay Crockett HYDROELECT[employer]IC PLANT MAINTAINER.ECOMMERCE MANAGER Work Phone: [facility] 12-11-2024 16:36-0500 SaO2% (BldA) [Mass fraction] 98 % Lindsay Crockett HYDROELECTRIC PLANT MAINTAINER.ECOMMERCE MANAGER Work Phone: [facility] 12-11-2024 16:36-0500 Systolic blood pressure 122 mm[Hg] Lindsay Crockett HYDROELECT[employer]IC PLANT MAINTAINER.ECOMMERCE MANAGER Work Phone: [facility] 09-25-2024 13:33-0500 Body mass index (BMI) [Ratio] 27.06 kg/m2 Perry Ballard PA-C Work Phone: [facility] 09-25-2024 13:33-0500 Body temperature 98.6 [degF] Perry Athy PA-C Work Phone: [facility] 09-25-2024 13:33-0500 Body weight 71.5 kg Perry Athy PA-C Work Phone: [facility] 09-25-2024 13:33-0500 Diastolic blood pressure 76 mm[Hg] Perry Athy PA-C Work Phone: [facility] 09-25-2024 13:33-0500 Heart rate 96 /min Perry Athy PA-C Work Phone: [facility] 09-25-2024 13:33-0500 Respiratory rate 18 /min Perry Athy PA-C Work Phone: [facility] 09-25-2024 13:33-0500 SaO2% (BldA) [Mass fraction] 98 % Perry Athy PA-C Work Phone: [facility] 09-25-2024 13:33-0500 Systolic blood pressure 112 mm[Hg] Perry Athy PA-C Work Phone: [facility] 01-02-2024 15:39-0400 Body weight 80.29 kg Jose Hayes MD Work Phone: [facility] 01-02-2024 15:39-0400 Diastolic blood pressure 112 mm[Hg] Jose Hayes MD Work Phone: [facility] 01-02-2024 15:39-0400 Heart rate 104 /min Jose Hayes MD Work Phone: [facility] 01-02-2024 15:39-0400 SaO2% (BldA) [Mass fraction] 97 % Jose Hayes MD Work Phone: [facility] 01-02-2024 15:39-0400 Systolic blood pressure 151 mm[Hg] Jose Hayes MD Work Phone: [facility] 04-25-2023 15:27-0400 Diastolic blood pressure 82 mm[Hg] [facility] 04-25-2023 15:27-0400 Heart rate 81 /min [facility] 04-25-2023 15:27-0400 Respiratory rate 16 /min [facility] 04-25-2023 15:27-0400 SaO2% (BldA) [Mass fraction] 98 % [facility] 04-25-2023 15:27-0400 Systolic blood pressure 141 mm[Hg] [facility] 04-25-2023 13:25-0400 Body height 162.56 cm [facility] 04-25-2023 13:25-0400 Body mass index (BMI) [Ratio] 32.3 kg/m2 [facility] 04-25-2023 13:25-0400 Body temperature 98 [degF] [facility] 04-25-2023 13:25-0400 Body weight 85.6 kg [facility] 04-18-2023 15:46-0400 Diastolic blood pressure 88 mm[Hg] Bee Haagen HYDROELECTRIC PLANT MAINTAINER.ECOMMERCE MANAGER Work Phone: [facility] 04-18-2023 15:46-0400 Heart rate 99 /min Bee Haagen HYDROELECT[employer]IC PLANT MAINTAINER.ECOMMERCE MANAGER Work Phone: [facility] 04-18-2023 15:46-0400 Respiratory rate 16 /min Bee Haagen HYDROELECTRIC PLANT MAINTAINER.ECOMMERCE MANAGER Work Phone: [facility] 04-18-2023 15:46-0400 SaO2% (BldA) [Mass fraction] 95 % Bee Haagen HYDROELECTRIC PLANT MAINTAINER.ECOMMERCE MANAGER Work Phone: [facility] 04-18-2023 15:46-0400 Systolic blood pressure 146 mm[Hg] Bee Haagen HYDROELECTRIC PLANT MAINTAINER.ECOMMERCE MANAGER Work Phone: [facility] 04-11-2023 10:56-0400 Body height 162.6 cm Albinajames Phoenixbow PA-C Work Phone: [facility] 04-11-2023 10:56-0400 Body temperature 97.9 [degF] Albina Denbow PA-C Work Phone: [facility] 04-11-2023 10:56-0400 Body weight 84.37 kg Albina Denbow PA-C Work Phone: [facility] 04-11-2023 10:56-0400 Diastolic blood pressure 76 mm[Hg] Albina Denbow PA-C Work Phone: [facility] 04-11-2023 10:56-0400 Heart rate 96 /min Albina Denbow PA-C Work Phone: [facility] 04-11-2023 10:56-0400 Respiratory rate 12 /min Albina Denbow PA-C Work Phone: [facility] 04-11-2023 10:56-0400 SaO2% (BldA) [Mass fraction] 97 % Albina Denbow PA-C Work Phone: [facility] 04-11-2023 10:56-0400 Systolic blood pressure 130 mm[Hg] Albina Denbow PA-C Work Phone: [facility] 01-07-2023 09:36-0400 Body height 162.6 cm Amos Smith HYDROELECTRIC PLANT MAINTAINER.ECOMMERCE MANAGER Work Phone: [facility] 01-07-2023 09:36-0400 Body weight 79.83 kg Amos Smith HYDROELECTRIC PLANT MAINTAINER.ECOMMERCE MANAGER Work Phone: [facility] 01-07-2023 09:36-0400 Diastolic blood pressure 95 mm[Hg] Amos Smith HYDROELECTRIC PLANT MAINTAINER.ECOMMERCE MANAGER Work Phone: [facility] 01-07-2023 09:36-0400 Heart rate 92 /min Amosnitesh Smith HYDROELECTRIC PLANT MAINTAINER.ECOMMERCE MANAGER Work Phone: [facility] 01-07-2023 09:36-0400 Respiratory rate 20 /min Amosnitesh Smith HYDROELECTRIC PLANT MAINTAINER.ECOMMERCE MANAGER Work Phone: [facility] 01-07-2023 09:36-0400 Systolic blood pressure 145 mm[Hg] Amos Smith HYDROELECTRIC PLANT MAINTAINER.ECOMMERCE MANAGER Work Phone: [facility] 2023 18:12-0400 Diastolic blood pressure 92 mm[Hg] MD Nicky Knight [facility] 2023 18:12-0400 Heart rate 69 /min MD Nicky HODGE [facility] 2023 18:12-0400 Respiratory rate 16 /min MD Nicky HODGE [facility] 2023 18:12-0400 SaO2% (BldA) [Mass fraction] 98 % MD Nicky Knight [facility] 2023 18:12-0400 Systolic blood pressure 138 mm[Hg] MD Nicky Knight [facility] 2023 15:45-0400 Body height 162.56 cm MD Nicky HODGE [facility] 2023 15:45-0400 Body mass index (BMI) [Ratio] 30.8 kg/m2 Nickyra Knight [facility] 2023 15:45-0400 Body temperature 97.6 [degF] MD Nicky Knight [facility] 2023 15:45-0400 Body weight 81.46 kg MD Nicky HODGE [facility] 2023 15:01-0400 Body temperature 98.29 [degF] Angelica Aviles PA-C Work Phone: [facility] 2023 15:01-0400 Body weight 81.28 kg Angelica Aviles PA-C Work Phone: [facility] 2023 15:01-0400 Diastolic blood pressure 98 mm[Hg] Angelica BROWNC Work Phone: [facility] 2023 15:01-0400 Heart rate 99 /min Angelica BROWNC Work Phone: [facility] 2023 15:01-0400 Respiratory rate 16 /min Angelica FIELD-C Work Phone: [facility] 2023 15:01-0400 SaO2% (BldA) [Mass fraction] 99 % Angelica Aviles PA-C Work Phone: [facility] 2023 15:01-0400 Systolic blood pressure 149 mm[Hg] Angelica Aviles PA-C Work Phone: [facility] 12-22-2022 20:52-0400 Diastolic blood pressure 77 mm[Hg] MD Nicky Knight [facility] 12-22-2022 20:52-0400 Heart rate 69 /min MD Nicky HODGE [facility] 12-22-2022 20:52-0400 Respiratory rate 15 /min MD Nicky HODGE [facility] 12-22-2022 20:52-0400 SaO2% (BldA) [Mass fraction] 99 % MD Nicky Knight [facility] 12-22-2022 20:52-0400 Systolic blood pressure 134 mm[Hg] MD Nicky Knight [facility] 12-22-2022 18:00-0400 Body temperature 97.6 [degF] MD Nicky Knight [facility] 12-22-2022 16:23-0400 Body mass index (BMI) [Ratio] 36.8 kg/m2 MD Nicky Knight [facility] 12-22-2022 16:23-0400 Body weight 97.3 kg MD Nicky HODGE [facility] 12-22-2022 14:24-0400 Body height 162.56 cm MD Nicky HODGE [facility] 12-19-2022 22:00-0400 Diastolic blood pressure 89 mm[Hg] MD Nicky Knight [facility] 12-19-2022 22:00-0400 Heart rate 76 /min MD Nicky Knight [facility] 12-19-2022 22:00-0400 Respiratory rate 18 /min MD Nicky Knight [facility] 12-19-2022 22:00-0400 SaO2% (BldA) [Mass fraction] 98 % MD Nicky Knight [facility] 12-19-2022 22:00-0400 Systolic blood pressure 148 mm[Hg] MD Nicky Knight [facility] 12-19-2022 16:42-0400 Body mass index (BMI) [Ratio] 30.9 kg/m2 MD Nicky HODGE [facility] 12-19-2022 16:42-0400 Body temperature 98.2 [degF] MD Nicky HODGE [facility] 12-19-2022 16:42-0400 Body weight 81.64 kg MD Nicky HODGE [facility] 12-16-2022 13:51-0500 Diastolic blood pressure 86 mm[Hg] Gerald Gombash DO Work Phone: [facility] [employer] 12-16-2022 13:51-0500 Heart rate 70 /min Gerald Gombash DO Work Phone: [facility] [employer] 12-16-2022 13:51-0500 Respiratory rate 16 /min Gerald Gombash DO Work Phone: [facility] [employer] 12-16-2022 13:51-0500 SaO2% (BldA) [Mass fraction] 96 % Gerald Gombash DO Work Phone: [facility] [employer] 12-16-2022 13:51-0500 Systolic blood pressure 129 mm[Hg] Gerald Gombash DO Work Phone: [facility] [employer] 12-16-2022 08:54-0500 Body height 162.6 cm Gerald Gombash DO Work Phone: [facility] [employer] 12-16-2022 08:54-0500 Body mass index (BMI) [Ratio] 30.55 kg/m2 Gerald Gombash DO Work Phone: [facility] [employer] 12-16-2022 08:54-0500 Body temperature 98.8 [degF] Gerald Gombash DO Work Phone: [facility] [employer] 12-16-2022 08:54-0500 Body weight 80.74 kg Gerald Gombash DO Work Phone: [facility] [employer] 11-29-2022 12:26-0500 Body temperature 98.29 [degF] Perry Ballard PA-C Work Phone: [facility] 11-29-2022 12:26-0500 Body weight 82.28 kg Perryelizabeth Crumy PA-C Work Phone: [facility] 11-29-2022 12:26-0500 Diastolic blood pressure 92 mm[Hg] Perry Athy PA-C Work Phone: [facility] 11-29-2022 12:26-0500 Heart rate 106 /min Perry Athy PA-C Work Phone: [facility] 11-29-2022 12:26-0500 Respiratory rate 18 /min Perry Athy PA-C Work Phone: [facility] 11-29-2022 12:26-0500 SaO2% (BldA) [Mass fraction] 98 % Perryelizabeth Crumy PA-C Work Phone: [facility] 11-29-2022 12:26-0500 Systolic blood pressure 128 mm[Hg] Perry Crumy PA-C Work Phone: [facility] 10-06-2022 22:52-0500 Diastolic blood pressure 75 mm[Hg] [facility] 10-06-2022 22:52-0500 SaO2% (BldA) [Mass fraction] 95 % [facility] 10-06-2022 22:52-0500 Systolic blood pressure 119 mm[Hg] [facility] 10-06-2022 21:53-0500 Heart rate 82 /min [facility] 10-06-2022 21:53-0500 Inhaled oxygen flow rate 3 L/min [facility] 10-06-2022 21:53-0500 Respiratory rate 16 /min [facility] 10-06-2022 17:24-0500 Body height 162.56 cm [facility] Work Phone: 10-06-2022 17:24-0500 Body mass index (BMI) [Ratio] 30.5 kg/m2 [facility] 10-06-2022 17:24-0500 Body temperature 97.3 [degF] [facility] 10-06-2022 17:24-0500 Body weight 80.73 kg [facility] 10-06-2022 16:41-0500 Body temperature 97.9 [degF] Carole Older HYDROELECTRIC PLANT MAINTAINER.ECOMMERCE MANAGER Work Phone: [facility] 10-06-2022 16:41-0500 Body weight 80.74 kg Carole Older HYDROELECTRIC PLANT MAINTAINER.ECOMMERCE MANAGER Work Phone: [facility] 10-06-2022 16:41-0500 Diastolic blood pressure 88 mm[Hg] Carole Older HYDROELECTRIC PLANT MAINTAINER.ECOMMERCE MANAGER Work Phone: [facility] 10-06-2022 16:41-0500 Heart rate 94 /min Carole Older HYDROELECTRIC PLANT MAINTAINER.ECOMMERCE MANAGER Work Phone: [facility] 10-06-2022 16:41-0500 Respiratory rate 16 /min Carole Older HYDROELECTRIC PLANT MAINTAINER.ECOMMERCE MANAGER Work Phone: [facility] 10-06-2022 16:41-0500 SaO2% (BldA) [Mass fraction] 94 % Carole Older HYDROELECTRIC PLANT MAINTAINER.ECOMMERCE MANAGER Work Phone: [facility] 10-06-2022 16:41-0500 Systolic blood pressure 122 mm[Hg] Carole Older HYDROELECTRIC PLANT MAINTAINER.ECOMMERCE MANAGER Work Phone: [facility] 06-30-2022 17:15-0400 Body weight 84.37 kg Carole Older HYDROELECT[employer]IC PLANT MAINTAINER.ECOMMERCE MANAGER Work Phone: [facility] 06-30-2022 17:15-0400 Diastolic blood pressure 92 mm[Hg] Carole Older HYDROELECTRIC PLANT MAINTAINER.ECOMMERCE MANAGER Work Phone: [facility] 06-30-2022 17:15-0400 Heart rate 80 /min Carole Older HYDROELECTRIC PLANT MAINTAINER.ECOMMERCE MANAGER Work Phone: [facility] 06-30-2022 17:15-0400 Respiratory rate 16 /min Carole Older HYDROELECTRIC PLANT MAINTAINER.ECOMMERCE MANAGER Work Phone: [facility] 06-30-2022 17:15-0400 Systolic blood pressure 132 mm[Hg] Carole Older HYDROELECTRIC PLANT MAINTAINER.ECOMMERCE MANAGER Work Phone: [facility] 04-08-2022 11:32-0400 Body temperature 98.71 [degF] Nicky Knight MD Work Phone: [facility] 04-08-2022 11:32-0400 Body weight 81.19 kg Nicky Knight MD Work Phone: [facility] 04-08-2022 11:32-0400 Diastolic blood pressure 90 mm[Hg] Nicky Knight MD Work Phone: [facility] 04-08-2022 11:32-0400 Heart rate 97 /min Nicky Knight MD Work Phone: [facility] 04-08-2022 11:32-0400 Respiratory rate 16 /min Nicky Knight MD Work Phone: [facility] 04-08-2022 11:32-0400 SaO2% (BldA) [Mass fraction] 98 % Nicky Knight MD Work Phone: [facility] 04-08-2022 11:32-0400 Systolic blood pressure 130 mm[Hg] Nicky Knight MD Work Phone: [facility] 03-27-2022 10:44-0400 Respiratory rate 18 /min Tyson Valdez MD Work Phone: [facility] 03-27-2022 09:34-0400 Body temperature 98.6 [degF] Tyson Valdez MD Work Phone: [facility] 03-27-2022 09:34-0400 Diastolic blood pressure 64 mm[Hg] Tyson Valdez MD Work Phone: [facility] 03-27-2022 09:34-0400 Heart rate 83 /min Tyson Valdez MD Work Phone: [facility] 03-27-2022 09:34-0400 SaO2% (BldA) [Mass fraction] 95 % Tyson Valdez MD Work Phone: [facility] 03-27-2022 09:34-0400 Systolic blood pressure 106 mm[Hg] Tyson Valdez MD Work Phone: [facility] 03-20-2022 08:48-0400 Body height 162.6 cm Tyson Valdez MD Work Phone: [facility] Comment on above: per chart review 03-17-2022 19:38-0400 Body mass index (BMI) [Ratio] 31.07 kg/m2 Tyson Valdez MD Work Phone: [facility] 03-17-2022 19:38-0400 Body weight 82.1 kg Tyson Valdez MD Work Phone: [facility] 03-15-2022 09:15-0400 Diastolic blood pressure 75 mm[Hg] Daniela Jimenes MD Work Phone: [facility] 03-15-2022 09:15-0400 Heart rate 80 /min Daniela Jimenes MD Work Phone: [facility] 03-15-2022 09:15-0400 Respiratory rate 16 /min Daniela Jimenes MD Work Phone: [facility] 03-15-2022 09:15-0400 SaO2% (BldA) [Mass fraction] 97 % Daniela Jimenes MD Work Phone: [facility] 03-15-2022 09:15-0400 Systolic blood pressure 120 mm[Hg] Daniela Jimenes MD Work Phone: [facility] 03-15-2022 09:00-0400 Body temperature 97.39 [degF] Daniela Jimenes MD Work Phone: [facility] 03-15-2022 08:09-0400 Body height 162.6 cm Daniela Jimenes MD Work Phone: [facility] 03-15-2022 08:09-0400 Body weight 82.56 kg Daniela Jimenes MD Work Phone: [facility] 01-12-2022 15:02-0400 Body height 164 cm Dayanara Reyes HYDROELECT[employer]IC PLANT MAINTAINER.ECOMMERCE MANAGER Work Phone: [facility] 01-12-2022 15:02-0400 Body weight 87.09 kg Dayanara Reyes HYDROELECT[employer]IC PLANT MAINTAINER.ECOMMERCE MANAGER Work Phone: [facility] 01-12-2022 15:02-0400 Diastolic blood pressure 82 mm[Hg] Dayanara Reyes HYDROELECTRIC PLANT MAINTAINER.ECOMMERCE MANAGER Work Phone: [facility] 01-12-2022 15:02-0400 Heart rate 96 /min Dayanara Reyes HYDROELECT[employer]IC PLANT MAINTAINER.ECOMMERCE MANAGER Work Phone: [facility] 01-12-2022 15:02-0400 SaO2% (BldA) [Mass fraction] 98 % Dayanara Reyes HYDROELECT[employer]IC PLANT MAINTAINER.ECOMMERCE MANAGER Work Phone: [facility] 01-12-2022 15:02-0400 Systolic blood pressure 126 mm[Hg] Dayanara Reyes HYDROELECTRIC PLANT MAINTAINER.ECOMMERCE MANAGER Work Phone: [facility] 06-23-2017 14:59-0400 BMI (Body Mass Index) 30.55 kg/m2 [facility] Work Phone: 06-23-2017 14:59-0400 BP Diastolic 84 mm[Hg] [facility] Work Phone: 06-23-2017 14:59-0400 BP Systolic 116 mm[Hg] [facility] Work Phone: 06-23-2017 14:59-0400 Height 162.56 cm [facility] Work Phone: 06-23-2017 14:59-0400 Pulse (Heart Rate) 96 /min [facility] Work Phone: 06-23-2017 14:59-0400 Respiratory Rate 16 /min [facility] Work Phone: 06-23-2017 14:59-0400 Weight 80.74 kg [facility] Work Phone: 05-16-2017 14:03-0400 BMI (Body Mass Index) 30.89 kg/m2 [facility] Work Phone: 05-16-2017 14:03-0400 BP Diastolic 70 mm[Hg] [facility] Work Phone: 05-16-2017 14:03-0400 BP Systolic 120 mm[Hg] [facility] Work Phone: 05-16-2017 14:03-0400 Height 162.56 cm [facility] Work Phone: 05-16-2017 14:03-0400 Pulse (Heart Rate) 96 /min [facility] Work Phone: 05-16-2017 14:03-0400 Respiratory Rate 20 /min [facility] Work Phone: 05-16-2017 14:03-0400 Weight 81.65 kg [facility] Work Phone: Encounters Encounter Date Encounter Type Care Provider Facility Start: 04-03-2025 End: 04-03-2025 Patient encounter procedure [facility] HY[employer] MAINTAINER.ECOMMERCE MANAGER Work Phone: [facility] Work Phone: Start: 04-03-2025 End: 04-03-2025 Periodic preventive med est patient 40-64yrs Carole Moore HYDROE[employer]IC PLANT MAINTAINER.ECOMMERCE MANAGER Work Phone: [facility] Comment on above: Annual physical exam (Primary Dx); Migraine with aura and without status migrainosus, not intractable; PVC (premature ventricular contraction); Sweating abnormality; Hirsutism Start: 04-03-2025 [facility] Facility:[facility] Start: 03-19-2025 End: 03-22-2025 ambulatory Nicky Knight MD Work Phone: Internal [facility] Start: 02-12-2025 End: 03-15-2025 ambulatory Nicky Knight MD Work Phone: [facility] Start: 01-31-2025 End: 01-31-2025 [facility] Start: 01-08-2025 End: 01-08-2025 ambulatory [facility] Facility:[facility] Start: 01-08-2025 End: 01-08-2025 Telemedicine consultation with patient Antonette Nieves HYDROELECTRIC PLANT MAINTAINER.ECOMMERCE MANAGER Work Phone: Telemedicine Comment on above: Viral gastroenteriti s (Primary Dx); Encounter to obtain excuse from work Start: 12-12-2024 End: 02-11-2025 Follow-up encounter Gil Barr MD Work Phone: [facility] Start: 12-11-2024 End: 12-11-2024 Patient encounter procedure Lindsay Crockett HYDROELECTRIC PLANT MAINTAINER.ECOMMERCE MANAGER Work Phone: [facility] Comment on above: URI, acute (Primary Dx); Exposure to influenza Start: 12-11-2024 End: 12-11-2024 ambulatory [facility] Facility:[facility] Start: 11-28-2024 End: 11-28-2024 Emergency department patient visit [facility] Facility:[facility] Start: 10-31-2024 End: 10-31-2024 ambulatory [facility] Facility:[facility] Start: 10-31-2024 End: 10-31-2024 Telemedicine consultation with patient Oumou R Serge HYDROELECTRIC PLANT MAINTAINER.ECOMMERCE MANAGER Work Phone: Telemedicine Comment on above: Acute cough (Primary Dx) Start: 10-12-2024 End: 10-12-2024 ambulatory Nicky Knight MD Work Phone: Internal Medicine [place] Comment on above: Work note Start: 09-25-2024 End: 09-25-2024 Subsequent hospital visit by physician [facility] Work Phone: Radiology Comment on above: Acute cough [R05.1] Start: 09-25-2024 End: 09-25-2024 ambulatory [facility] Facility:[facility] Start: 09-25-2024 End: 09-25-2024 Patient encounter procedure Perry Ballard PA-C Work Phone: [facility] Comment on above: Bronchitis (Primary Dx) Start: 09-25-2024 End: 09-25-2024 [facility] Facility:[facility] Start: 09-25-2024 End: 09-25-2024 Telemedicine consultation with patient Chinmay Baxter PA-C Work Phone: Telemedicine Comment on above: Acute cough (Primary Dx) Start: 04-14-2024 End: 04-14-2024 Emergency department patient visit [facility] Facility:[facility] Start: 03-14-2024 ambulatory Nicky Alcaraz Work Phone: Internal Medicine [facility] [place] Start: 02-14-2024 Telephone encounter Amos May APRN.CNP Work Phone: Neurology Comment on above: Insurance Authorizti on; [place] Start: 01-02-2024 End: 01-02-2024 Refill [facility] Provider Neurology Comment on above: Refill Request Microvascular angina (HCC) (Primary Dx); Nonsustained ventricular tachycardia (HCC); Primary hypertension; Tobacco abuse Start: 12-29-2023 Refill Bee Fairchild APRN.CNP Work Phone: Family [facility] Comment on above: Refill Request Start: 04-25-2023 Telephone encounter Jose Hayes MD Work Phone: Cardiology 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 Work Phone: Start: 04-22-2023 Telephone encounter Bee schroeedr APRN.CNP Work Phone: [facility] Comment on above: Results Start: 04-18-2023 End: 04-18-2023 Office outpatient visit 25 minutes Bee Fairchild APRN.ECOMMERCE MANAGER Work Phone: [facility] Comment on above: Postural dizziness ( Primary Dx); Pulsatile tinnitus; Diarrhea, unspecified type; Elevated liver enzymes; Abnormal RBC Start: 04-11-2023 End: 04-11-2023 Subsequent hospital visit by physician [facility] Work Phone: Radiology Comment on above: Injury of left knee, initial encounter [S89.92XA] Start: 04-11-2023 End: 04-11-2023 Patient encounter procedure Albina Padilla PA-C Work Phone: Internal Medicine [place] Comment on above: Injury of left knee, initial encounter (Primary Dx) Start: 04-05-2023 End: 04-05-2023 Subsequent hospital visit by physician Diagnostic Mammo [facility] Comment on above: No Show Start: 03-15-2023 Refill Amos crook HYDROELECTRIC PLANT MAINTAINER.ECOMMERCE MANAGER Work Phone: Neurology Comment on above: Refill Request Start: 02-15-2023 Telephone encounter Nhung awan MD Work Phone: Mammography Comment on above: Mammogram Result Richard l Back Start: 02-13-2023 Refill Aide Haynes DO Work Phone: Neurology Comment on above: Refill Request Start: 02-11-2023 Documentation procedure [facility]og [facility]ay [facility] Start: 02-11-2023 Letter encounter Mammography Coordinator [facility] Department Start: 02-11-[address] junito TAPIAN.ECOMMERCE MANAGER Work Phone: Family Medicine [place] Comment on above: Results Start: 02-10-2023 End: 02-10-2023 Subsequent hospital visit by physician Screen Mammo [facility] Comment on above: Encounter for screen ing mammogram for malignant neoplasm of breast [Z12.31] Start: 02-04-2023 Orders Only Aide Haynes DO Work Phone: Neurology Comment on above: Intractable migraine with aura with status migrainosus (Primary Dx) Start: 02-03-2023 ambulatory Aide Haynes DO Work Phone: [facility] [place] [facility] Start: 02-03-2023 Follow-up encounter Aide vázquez DO Work Phone: Neurology Comment on above: Follow up after MRI Start: 01-28-2023 End: 01-28-2023 Subsequent hospital visit by physician Latrice Crocker (1.5t) Work Phone: Radiology Start: 01-21-2023 End: 01-21-2023 ambulatory Amos Smith HYDROELECTRIC PLANT MAINTAINER.ECOMMERCE MANAGER Work Phone: Neurology Comment on above: Thunderclap headache (Primary Dx); Stabbing headache Start: 01-21-2023 End: 01-21-2023 Telemedicine consultation with patient Amos Fountain Carolinanathen HYDROELECTRIC PLANT MAINTAINER.ECOMMERCE MANAGER Work Phone: [facility] Start: 01-20-2023 Telephone encounter Aidezac vázquez DO Work Phone: Neurology Comment on above: Forms (Return to wor k) Start: 01-18-2023 ambulatory Aide Haynes DO Work Phone: Neurology Comment on above: FMLA Paperwork Start: 01-07-2023 End: 01-07-2023 Patient encounter procedure Amos Fountain Luis HYDROELECTRIC PLANT MAINTAINER.ECOMMERCE MANAGER Work Phone: Neurology Comment on above: Thunderclap headache (Primary Dx); Orthostatic headache; Intractable migraine with aura without status migrainosus Start: 01-06-2023 ambulatory Angelica BROWNC Work Phone: Neurology Comment on above: Leave paperwork Start: 01-06-2023 Telephone encounter Yamileth werner HYDROELECTRIC PLANT MAINTAINER.ECOMMERCE MANAGER Work Phone: [facility] Comment on above: Patient Update Start: 01-05-2023 Telephone encounter Nicky cotton MD Work Phone: [facility] Comment on above: fmla forms Start: 2023 End: 2023 [facility] Start: 2023 End: 2023 Patient encounter procedure Angelica Aviles PA-C Work Phone: Neurology Comment on above: Positional headache (Primary Dx); Intractable headache, unspecified chronicity pattern, unspecified headache type Start: 2023 ambulatory Angelica BROWNC Work Phone: Neurology Comment on above: Discharged from ER.. .no MRI Start: 12-30-2022 Telephone encounter Serg Alaniz RN NOC Comment on above: Follow Up Phone Call (RC follow up call first attempt ) Pain (Pain in vein a fter IV/) Start: 12-29-2022 Patient Outreach Philly nj RN Work Phone: Scalemaker Management Comment on above: Transition Of Care ( TCM Initial [facility] Discharge 12/28/22/) Start: 12-23-2022 Evaluation and management of inpatient REMUS A UNGUR Facility:[facility] Start: 12-22-2022 Non-patient / Non-visit MD Nicky holt [facility] Start: 12-22-2022 End: 12-22-2022 Emergency department [facility] Start: 12-22-2022 ambulatory Nicky Alcaraz Work Phone: Internal Medicine [place] Comment on above: Dizziness Start: 12-19-2022 End: 12-19-2022 Emergency department [facility] Start: 12-19-2022 ambulatory Gely Jones MD Work Phone: Virtual Medicine Comment on above: Virtualist Headache Start: 12-16-2022 End: 12-17-2022 Emergency department patient visit [facility] Start: 12-16-2022 End: 12-16-2022 Subsequent hospital visit by physician [facility] Exam Room [address] [facility] [address] Comment on above: Arrived Start: 12-16-2022 End: 12-16-2022 Emergency department patient visit Gerald Pham DO Work Phone: [facility] ED Comment on above: Migraine without sta tus migrainosus, not intractable, unspecified migraine type (Primary Dx) Start: 11-29-2022 End: 11-29-2022 Subsequent hospital visit by physician Jade [facility] Work Phone: Radiology Comment on above: Finger pain, left [M 79.645] Start: 11-29-2022 End: 11-29-2022 Patient encounter procedure Perry Ballard PA-C Work Phone: [facility] Comment on above: Finger pain, left (P rimary Dx) Start: 11-25-2022 Refill Jose wilson MD Work Phone: Cardiology Comment on above: Refill Request Start: 10-25-2022 End: 10-25-2022 Patient encounter procedure Jose Hayes MD Work Phone: Cardiology Comment on above: Microvascular angina (HCC) (Primary Dx); Nonsustained ventricular tachycardia; Primary hypertension Start: 10-07-2022 ambulatory Carole CardosoECOMMERCE MANAGER Work Phone: [facility] Start: 10-07-2022 Follow-up encounter Carole Moore APRN.ECOMMERCE MANAGER Work Phone: Internal Medicine [place] Comment on above: Follow up from ER vi sit Start: 10-06-2022 End: 10-06-2022 Emergency department patient visit [facility] Start: 10-06-2022 End: 10-06-2022 Patient encounter procedure Carole Moore APRN.ECOMMERCE MANAGER Work Phone: Internal Medicine [place] Comment on above: RUQ pain (Primary Dx ); Right flank pain; Diarrhea, unspecified type; Nausea; Chills Start: 08-11-2022 End: 08-11-2022 ambulatory Nicky Knight MD Work Phone: Internal Medicine [place] Comment on above: COVID-19 virus infec tion (Primary Dx) Start: 08-11-2022 End: 08-11-2022 Telemedicine consultation with patient Nicky Knight MD Work Phone: [facility] Start: 07-05-2022 ambulatory CAROLE MOORE Facility:[facility] Start: 06-30-2022 End: 06-30-2022 Patient encounter procedure Carole Moore APRN.ECOMMERCE MANAGER Work Phone: Internal Medicine [place] Comment on above: Soft tissue mass (Pr imary Dx) Start: 06-29-2022 ambulatory Nicky Alcaraz Work Phone: Internal [facility] [place] Comment on above: Lump below breast, a luis miguel rib cage Start: 05-10-2022 Refill Lindsay dowling HYDROELECTRIC PLANT MAINTAINER.ECOMMERCE MANAGER Work Phone: Cardiology Comment on above: Refill Request Start: 05-10-2022 Telephone encounter Nicky cotton MD Work Phone: [facility] [place] Comment on above: fax request Start: 04-26-2022 Refill Jose wilson MD Work Phone: Cardiology Comment on above: Refill Request Start: 04-26-2022 Telephone encounter Jose aHyes MD Work Phone: [facility] Cardiology Comment on above: Appointment patient information Start: 04-23-2022 Refill Nicky Alcaraz Work Phone: [facility] [place] Comment on above: Refill Request Start: 04-08-2022 End: 04-08-2022 Patient encounter procedure Nicky Knight MD Work Phone: [facility] [place] Comment on above: Hospital discharge f ollow-up (Primary Dx); Vitamin D deficiency; Diarrhea, unspecified type; Vitamin B12 deficiency; Brain fog Start: 03-23-2022 Telephone encounter Dayanara Reyes APRN.ECOMMERCE MANAGER Work Phone: Gastroenterology Comment on above: Results; Medication Problem Start: 03-17-2022 End: 03-27-2022 Evaluation and management of inpatient Tyson Valdez MD Work Phone: [facility] Comment on above: Abdominal pain, righ t upper quadrant (Primary Dx); Liver mass; Nausea and vomiting, intractability of vomiting not specified, unspecified vomiting type; Abdominal pain, epigastric; Hx of gastroesophageal reflux (GERD) Start: 03-17-2022 ambulatory Nicky Alcaraz Work Phone: Internal [facility] [place] Comment on above: abdomen pain Start: 03-15-2022 End: 03-15-2022 Refill Carole Moore APRN.ECOMMERCE MANAGER Work Phone: Internal Medicine [place] Comment on above: Refill Request Diarrhea, unspecifie d type [R19.7] Start: 03-11-2022 Refill Carole Moore APRN, .CNP Work Phone: Internal Medicine [place] Comment on above: Refill Request Start: 02-08-2022 Telephone encounter Dayanara Reyes APRN.ECOMMERCE MANAGER Work Phone: Gastroenterology Comment on above: Refill Request Start: 02-03-2022 Documentation procedure Mammog tay Coordinator [facility] Start: 02-03-2022 Letter encounter Mammography Coordinator [facility] Department Start: 02-02-2022 End: 02-02-2022 Subsequent hospital visit by physician Screen Mammo [facility] Comment on above: Encounter for screen ing mammogram for breast cancer [Z12.31] Start: 01-18-2022 Telephone encounter Dayanara Reyes APRN.ECOMMERCE MANAGER Work Phone: Gastroenterology Comment on above: Patient Update Start: 01-12-2022 End: 01-12-2022 Patient encounter procedure Dayanara Reyes APRN.ECOMMERCE MANAGER Work Phone: Gastroenterology Comment on above: 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 (Primary Dx); Gastroesophageal reflux disease, unspecified whether esophagitis present; Diarrhea, unspecified type; Blood in stool; Bloating Start: 12-26-2021 Refill Carole Moore APRN .ECOMMERCE MANAGER Work Phone: Internal Medicine [place] Comment on above: Refill Request Start: 12-10-2021 Telephone encounter Nicky cotton MD Work Phone: [facility] [place] Comment on above: Appointment Start: 08-12-2021 End: 08-12-2021 Subsequent hospital visit by physician Xr [facility] Work Phone: Radiology Comment on above: Muscle weakness [M62 .81] Start: 02-07-2019 End: 02-08-2019 Patient encounter procedure [facility] Procedures Date Procedure Procedure Detail Performing Clinician Start: 09-25-2024 Radiologic exam chest 2 views Perry dowling PA-C Work Phone: Start: 04-25-2023 Plain chest X-ray Start: 04-18-2023 Ecg routine ecg w/least 12 lds i&r only [facility] Provider Start: 04-11-2023 Radiologic exam knee complete 4/more views Albina Padilla PA-C Work Phone: Start: 04-05-2023 Digital breast tomosynthesis unilateral Leanna Patel HYDROELECTRIC PLANT MAINTAINER.ECOMMERCE MANAGER Work Phone: Start: 02-10-2023 End: 02-10-2023 Mammography Yamileth Tafoya HYDROELECTRIC PLANT MAINTAINER.ECOMMERCE MANAGER Work Phone: Start: 01-28-2023 End: 01-28-2023 Mri brain brain stem w/o w/contrast material Angelica Aviles PAObeyC Work Phone: Start: 12-22-2022 CT of head without contrast MD Nicky Gruber nta OLS Start: 12-16-2022 Cell count miscellaneous body fluids Gerald A Gombash DO Work Phone: Start: 12-16-2022 CSF CELL COUNT WITH DIFFERENTIAL Gerald A Gombash DO Work Phone: Start: 12-16-2022 Cul bact xcpt urine blood/stool aerobic isol Gerald A Gombash DO Work Phone: Start: 12-16-2022 Glucose body fluid other than blood Tyle r A Gombash DO Work Phone: Start: 12-16-2022 Ct head/brain w/o contrast material Tyle r A Gombash DO Work Phone: Start: 12-16-2022 Basic metabolic panel calcium total Tyle r A Gombash DO Work Phone: Start: 12-16-2022 Urinalysis complete panel - Urine Gerald A Gombash DO Work Phone: Start: 12-16-2022 Urnls dip stick/tablet rgnt auto w/o microscopy Gerald A Gombash DO Work Phone: Start: 12-16-2022 Diagnostic lumbar spinal puncture Gerald A Gombash DO Work Phone: Start: 11-29-2022 Radex fingr minimum 2 views Perry Ballard PAMaría Work Phone: Start: 10-06-2022 Computed tomography of abdomen and pelvis with intravenous contrast Start: 10-06-2022 Urnls dip stick/tablet rgnt auto w/o microscopy Carole Moore HYDROELECTRIC PLANT MAINTAINER.ECOMMERCE MANAGER Work Phone: Start: 03-27-2022 Blood count complete auto&auto difrntl wbc Bairon Durán MD Work Phone: Start: 03-26-2022 Radiologic exam chest single view Bairon Durán MD Work Phone: Start: 03-26-2022 Blood count complete auto&auto difrntl wbc Bairon Durán MD Work Phone: Start: 03-25-2022 Comprehensive metabolic panel Bairon Alvarez MD Work Phone: Start: 03-23-2022 Biopsy liver needle percutaneous Consuelo Walker HYDROELECTRIC PLANT MAINTAINER - [facility] Work Phone: Start: 03-22-2022 Prothrombin time Xochitl Walker HYDROELECTRIC PLANT MAINTAINER - ECOMMERCE MANAGER Work Phone: Start: 03-20-2022 Mri abdomen w/o & w/contrast material Ruth Hinkle PA-C Work Phone: Start: 03-19-2022 Blood count complete auto&auto difrntl wbc Sepideh Jacques MD Work Phone: Start: 03-17-2022 Culture bacterial quanttative colony count urine Tyson Valdez MD Work Phone: Start: 03-17-2022 Urnls dip stick/tablet rgnt auto w/o microscopy Tyson Valdez MD Work Phone: Start: 03-17-2022 Ct abdomen & pelvis w/o contrast material Tyson Valdez MD Work Phone: Start: 03-17-2022 Us transvaginal Tyson Valdez MD Work Phone: Start: 03-17-2022 Comprehensive metabolic panel Tyson Valdez MD Work Phone: Start: 03-15-2022 Esophagogastroduodenoscopy transoral diagnostic Dayanara Reyes HYDROELECTRIC PLANT MAINTAINER.ECOMMERCE MANAGER Work Phone: Start: 03-15-2022 Colonoscopy flx dx w/collj spec when pfrmd Dayanara Reyes HYDROELECTRIC PLANT MAINTAINER.[facility] Work Phone: Start: 03-15-2022 Colonoscopy Nicky Knight MD Work Phone: Start: 02-02-2022 End: 02-02-2022 Screening mammography bi 2-view breast inc cad Bulk Order Provider Start: 01-24-2022 Adult depression screening assessment Screen W[facility] Start: 01-13-2022 Blood occult fecal hgb deter ia qual feces 1-3 Dayanara Reyes HYDROELECTRIC PLANT MAINTAINER.[facility] Work Phone: Start: 01-13-2022 Iaad ia giardia Dayanara Reyes HYDROELECTRIC PLANT MAINTAINER.[facility] Work Phone: Start: 12-07-2021 Adult depression screening assessment Carole Older HYDROELECTRIC PLANT MAINTAINER.[facility] Work Phone: Start: 08-12-2021 Radex spine lumbosacral 2/3 views Nicky Knight MD Work Phone: Start: 06-23-2017 End: 06-23-2017 Dietary management education, guidance, and counseling Tiffany Purcell Start: 06-23-2017 End: 06-23-2017 Follow Up Appt Other Thomas Monaco MD Start: 06-23-2017 End: 06-23-2017 PFM Thomas Monaco MD Start: 06-23-2017 End: 06-23-2017 Follow Up Appt Other Thomas Monaco MD Start: 06-23-2017 End: 06-23-2017 PFM Thomas Monaco MD Start: 05-16-2017 End: 05-18-2017 Arterial exam Thomas Monaco MD Start: 05-16-2017 End: 05-16-2017 Follow Up Appt 1 month Thomas Monaco MD Start: 05-16-2017 End: 05-16-2018 INR in Platelet poor plasma by Coagulation assay Thomas Monaco MD Start: 05-16-2017 End: 05-16-2017 PFM Thomas Monaco MD Start: 05-16-2017 End: 05-18-2017 Arterial exam Thomas Monaco MD Start: 05-16-2017 End: 05-16-2018 Coagulation factor induced.INR assay in platelet poor plasma Thomas Monaco MD Start: 05-16-2017 End: 05-16-2017 Follow Up Appt 1 month Thomas Monaco MD Start: 05-16-2017 End: 05-16-2017 PFM Thomas Monaco MD Viral antigen assay MD Neto HODGE Plan of Treatment Date Care Activity Detail Author Start: 03-15-2032 Colonoscopy COLONOSCOPY [facility] Start: 03-15-2032 COLORECTAL CANCER SCREENING COLORECTAL CANCER SCREENING [facility] Start: 03-15-2032 Screening for malign ant neoplasm of colon [facility] Start: 09-11-2031 DTaP/Tdap/Td vaccine (3 - Td or Tdap) DTaP/Tdap/Td vaccine (3 - Td or Tdap) [facility] Start: 09-11-2031 DTaP/Tdap/Td Vaccine s (3 - Td or Tdap) DTaP/Tdap/Td Vaccines (3 - Td or Tdap) [facility] Start: 09-11-2031 Urine microalbumin profile [facility] Start: 2031 Zoster Vaccines (1 o f 2) Zoster Vaccines (1 of 2) [facility] Start: 04-03-2026 Annual PCP Team Alfalfa Dehydrator Operator claudine Disease Visit Annual PCP Team Chronic Disease Visit [facility] Start: 2026 FECAL OCCULT BLOOD FECAL OCCULT BLOO D [facility] Start: 2026 Screening for malign ant neoplasm of colon Fecal Occult Blood [facility] Start: 09-25-2025 BP Controlled (<130/80) BP Controlle d (<130/80) [facility] Start: 06-10-2025 Influenza vaccination Influenz a Vaccine (Season Ended) [facility] Start: 04-03-2025 End: 04-03-2025 Patient encounter procedure 04/03/2025 4:40 PM EDT Office Visit [facility] [address] [place] [address] Carole Moore APRN.ECOMMERCE MANAGER [address] [place] [address] Annual exam and migraines [facility] [place] Comment on above: Annual exam and migr aines Start: 04-03-2025 End: 07-03-2025 CBC W Auto Differential panel - Blood COMPLETE BLOOD COUNT AND DIFFERENTIAL Lab Routine Annual physical exam Migraine with aura and without status migrainosus, not intractable Expected: 04/03/2025, Expires: 07/03/2025 [facility] Comment on above: Expected: 04/03/2025 , Expires: 07/03/2025 Start: 04-03-2025 End: 07-03-2025 Comprehensive metabolic 2000 panel - Serum or Plasma COMPREHENSIVE METABOLIC PANEL Lab Routine Annual physical exam Migraine with aura and without status migrainosus, not intractable Expected: 04/03/2025, Expires: 07/03/2025 [facility] Work Phone: Comment on above: Expected: 04/03/2025 , Expires: 07/03/2025 Start: 04-03-2025 End: 07-03-2025 Lipid 1996 panel - Serum or Plasma LIPID PANEL, FASTING Lab Routine Annual physical exam Expected: 04/03/2025, Expires: 07/03/2025 [facility] Comment on above: Expected: 04/03/2025 , Expires: 07/03/2025 Start: 04-03-2025 End: 07-03-2025 Thyrotropin [Units/volume] in Serum or Plasma THYROID STIMULATING HORMONE Lab Routine Migraine with aura and without status migrainosus, not intractable Expected: 04/03/2025, Expires: 07/03/2025 [facility] Comment on above: Expected: 04/03/2025 , Expires: 07/03/2025 Start: 03-19-2025 End: 06-18-2025 Basic metabolic 2000 panel - Serum or Plasma BASIC METABOLIC PANEL Lab Routine Hypertension Expected: 03/19/2025, Expires: 06/18/2025 [facility] Work Phone: Comment on above: Expected: 03/19/2025 , Expires: 06/18/2025 Start: 06-10-2024 Covid-19 Vaccine ( season) Covid-19 Vaccine () [facility] Start: 06-10-2024 Covid-19 Vaccine () Covid-19 Vaccine () [facility] Start: 06-10-2024 Influenza vaccination C [facility] Start: 04-18-2024 ANNUAL PCP TEAM SUPERVISOR [place] CLAUDINE DISEASE VISIT ANNUAL PCP TEAM CHRONIC DISEASE VISIT [facility] Start: 04-11-2024 ANNUAL PCP TEAM SUPERVISOR [place] [place] CLAUDINE DISEASE VISIT ANNUAL PCP TEAM CHRONIC DISEASE VISIT [facility] Start: 02-11-2024 Mammography [facility] Start: 02-11-2024 Screening for malign ant neoplasm of breast Mammogram Screening [facility] Start: 12-31-2023 ANNUAL PCP TEAM SUPERVISOR [place] CLAUDINE DISEASE VISIT ANNUAL PCP TEAM CHRONIC DISEASE VISIT [facility] Start: 12-31-2023 BP CONTROLLED (<130/80) BP CONTROLLE D (<130/80) [facility] Start: 12-31-2023 COVID-19 VACCINE (3 - Booster for Moderna series) COVID-19 VACCINE (3 - Booster for Moderna series) [facility] Comment on above: Postponed from 04/23 (Declined at this time) Start: 12-31-2023 COVID-19 VACCINE (3 - Moderna series) COVID-19 VACCINE (3 - Moderna series) [facility] Comment on above: Postponed from 04/23 (Declined at this time) Start: 10-10-2023 Behavioral Health Screening Behavioral Health Screening [facility] Start: 10-10-2023 Depression Assessment Depression Ass essment [facility] Start: 10-06-2023 ANNUAL PCP TEAM SUPERVISOR [place] CLAUDINE DISEASE VISIT ANNUAL PCP TEAM CHRONIC DISEASE VISIT [facility] Start: 08-11-2023 ANNUAL PCP TEAM SUPERVISOR [place] CLAUDINE DISEASE VISIT ANNUAL PCP TEAM CHRONIC DISEASE VISIT [facility] [facility] Start: 06-30-2023 ANNUAL PCP TEAM SUPERVISOR [place] CLAUDINE DISEASE VISIT ANNUAL PCP TEAM CHRONIC DISEASE VISIT [facility] Start: 06-10-2023 Covid-19 Vaccine ( season) Covid-19 Vaccine () [facility] Start: 06-10-2023 Influenza vaccination C [facility] Start: 04-25-[address] [facility] Start: 04-25-2023 End: 04-25-2023 [facility] Start: 04-22-2023 End: 06-22-2023 CBC W Auto Differential panel - Blood CBC + DIFF Lab Routine Leukocytosis, unspecified type Expected: 04/22/2023, Expires: 06/22/2023 [facility] Work Phone: Comment on above: Expected: 04/22/2023 , Expires: 06/22/2023 Start: 04-18-2023 End: 06-18-2023 Basic metabolic 2000 panel - Serum or Plasma [facility] Work Phone: Comment on above: Expected: 04/18/2023 , Expires: 06/18/2023 Start: 04-18-2023 End: 06-18-2023 Ferritin [Mass/volume] in Serum or Plasma [facility] Work Phone: Comment on above: Expected: 04/18/2023 , Expires: 06/18/2023 Start: 04-18-2023 End: 06-18-2023 Folate [Mass/volume] in Serum or Plasma [facility] Work Phone: Comment on above: Expected: 04/18/2023 , Expires: 06/18/2023 Start: 04-18-2023 End: 06-18-2023 Hepatic function 2000 panel - Serum or Plasma [facility] Work Phone: Comment on above: Expected: 04/18/2023 , Expires: 06/18/2023 Start: 04-18-2023 End: 06-18-2023 Iron and Iron binding capacity panel - Serum or Plasma [facility] Work Phone: Comment on above: Expected: 04/18/2023 , Expires: 06/18/2023 Start: 04-18-2023 End: 06-18-2023 Magnesium [Mass/volume] in Serum or Plasma [facility] Work Phone: Comment on above: Expected: 04/18/2023 , Expires: 06/18/2023 Start: 04-18-2023 End: 06-18-2023 Thyrotropin [Units/volume] in Serum or Plasma [facility] Work Phone: Comment on above: Expected: 04/18/2023 , Expires: 06/18/2023 Start: 04-18-2023 End: 06-18-2023 Thyroxine (T4) free [Mass/volume] in Serum or Plasma [facility] Work Phone: Comment on above: Expected: 04/18/2023 , Expires: 06/18/2023 Start: 04-08-2023 ANNUAL PCP TEAM SUPERVISOR [place] [employer]UD[place] DISEASE VISIT ANNUAL PCP TEAM CHRONIC DISEASE VISIT [facility] Start: 04-08-2023 Influenza vaccination INFLUENZA (#1) [facility] Comment on above: Postponed from 06/10 (Declined at this time) Start: 02-02-2023 Mammography MAMMOGRAM [facility] Start: 01-25-2023 ANNUAL PCP TEAM SUPERVISOR [place] [place] [employer] DISEASE VISIT ANNUAL PCP TEAM CHRONIC DISEASE VISIT [facility] Start: 01-24-2023 Adult depression screening assessment DEPRESSION SCREENING [facility] Start: 12-07-2022 Adult depression screening assessment DEPRESSION SCREENING [facility] Start: 12-07-2022 ANNUAL PCP TEAM SUPERVISOR [place] [place] [employer] DISEASE VISIT ANNUAL PCP TEAM CHRONIC DISEASE VISIT [facility] Start: 10-10-2022 DEPRESSION ASSESSMENT DEPRESSION ASS ESSMENT [facility] Start: 09-11-2022 BP CONTROLLED (<130/80) BP CONTROLLE D (<130/80) [facility] Start: 06-10-2022 Influenza vaccination C [facility] Start: 04-08-2022 End: 06-08-2022 Cobalamin (Vitamin B12) [Mass/volume] in Serum or Plasma VITAMIN B12 BLOOD Lab Routine Vitamin B12 deficiency Expected: 04/08/2022, Expires: 06/08/2022 [facility] Work Phone: Comment on above: Expected: 04/08/2022 , Expires: 06/08/2022 Start: 04-08-2022 End: 06-08-2022 Thyrotropin [Units/volume] in Serum or Plasma TSH BLD Lab Routine Brain fog Expected: 04/08/2022, Expires: 06/08/2022 [facility] Work Phone: Comment on above: Expected: 04/08/2022 , Expires: 06/08/2022 Start: 10-10-2021 DEPRESSION ASSESSMENT DEPRESSION ASS ESSMENT [facility] Start: 07-29-2021 COVID-19 VACCINE (3 - Booster for Moderna series) COVID-19 VACCINE (3 - Booster for Moderna series) [facility] Start: 06-10-2021 Influenza vaccination INFLUENZA (#1) [facility] Start: 04-23-2021 COVID-19 VACCINE (3 - Booster for Moderna series) COVID-19 VACCINE (3 - Booster for Moderna series) [facility] Start: 2021 Lipid panel Lipids [facility] Start: 2021 Mammography MAMMOGRAM [facility] Start: 2021 Screening for malign ant neoplasm of breast Mammogram [facility] Start: 06-23-2017 End: 06-23-2017 Appointment Appointment [facility] Work Phone: Start: 06-23-2017 End: 06-23-2017 Arterial exam Arterial exam [facility] Work Phone: Start: 06-23-2017 End: 06-23-2017 Follow Up Appt Other Follow Up Appt Other [facility] Work Phone: Start: 06-23-2017 End: 06-23-2017 PFM PFM [facility] Work Phone: Start: 06-23-2017 End: 06-23-2017 Arterial exam Arterial exam [facility] Work Phone: Start: 06-23-2017 End: 06-23-2017 Follow Up Appt Other Follow Up Appt Other [facility] Work Phone: Start: 06-23-2017 End: 06-23-2017 PFM PFM [facility] Work Phone: Start: 05-16-2017 End: 05-16-2017 Appointment Appointment [facility] Work Phone: Start: 05-16-2017 End: 05-16-2017 Arterial exam Arterial exam [facility] Work Phone: Start: 05-16-2017 End: 05-16-2017 Follow Up Appt 1 month Follow Up Appt 1 month [facility] Work Phone: Start: 05-16-2017 End: 05-20-2017 INR Coag RelTime (PPP) *PT/INR - Standing Order [facility] Work Phone: Start: 05-16-2017 End: 05-16-2017 PFM PFM [facility] Work Phone: Start: 05-16-2017 End: 05-16-2017 Arterial exam Arterial exam [facility] Work Phone: Start: 05-16-2017 End: 05-20-2017 Coagulation factor induced.INR assay in platelet poor plasma *PT/INR - Standing Order [facility] Work Phone: Start: 05-16-2017 End: 05-16-2017 Follow Up Appt 1 month Follow Up Appt 1 month [facility] Work Phone: Start: 05-16-2017 End: 05-16-2017 PFM PFM [facility] Work Phone: Start: 01-05-2016 Diabetes screen Diabetes screen [facility] Start: 05-30-2015 Pneumococcal vaccination Pneumococcal Vaccine (2 of 2 - PCV) [facility] Start: 01-05-2000 Hepatitis B Vaccine (1 of 3 - 19+ 3-dose series) Hepatitis B Vaccine (1 of 3 - 19+ 3-dose series) [facility] Start: 1999 Anxiety Screening Anxiety Screening [facility] Start: 1999 BP CONTROLLED (<130/80) BP CONTROLLE D (<130/80) [facility] Start: 1999 Depression Screening Depression Scre ening [facility] Start: 1999 Hepatitis C screening [facility] Start: 01-05-1996 HIV screening HIV screen [facility] Start: 1993 Depression Monitoring Depression Mon [facility] Start: 1986 COVID-19 Vaccine (1) COVID-19 Vaccin e (1) [facility] Start: 1982 Hepatitis A Vaccines (1 of 2 - Risk 2-dose series) Hepatitis A Vaccines (1 of 2 - Risk 2-dose series) [facility] Start: 1982 MMR Vaccines (1 of 1 - Standard series) MMR Vaccines (1 of 1 - Standard series) [facility] Start: 1982 Varicella vaccination Varicell a Vaccines (1 of 2 - 2-dose childhood series) [facility] Start: 1982 Varicella vaccine (1 of 2 - 2-dose childhood series) Varicella vaccine (1 of 2 - 2-dose childhood series) [facility] Start: 1981 HEPATITIS B (1 of 3 - 3-dose series) HEPATITIS B (1 of 3 - 3-dose series) [facility] Start: 1981 Hepatitis B Vaccine (1 of 3 - 3-dose series) Hepatitis B Vaccine (1 of 3 - 3-dose series) [facility] Start: 1981 Hepatitis B Vaccines (1 of 3 - 3-dose series) Hepatitis B Vaccines (1 of 3 - 3-dose series) [facility] Start: 1981 HIV screening HIV Screening [facility] Start: 1981 Lipid panel Lipid Panel [facility] Bacteria identified in Unspecified specimen by Aerobe culture Culture, Aerobic Bacteria with Gram Stain Microbiology STAT 12/16/2022 10:30 AM EST [facility] End: 12-16-2022 Bacteria identified in Unspecified specimen by Anaerobe culture [facility] Work Phone: Comment on above: Once (Lab) for 1 Occ urrences starting 12/16/2022 until 12/16/2022 CBC W Auto Different ial panel - Blood CBC with Auto Differential Lab Routine Daily until discontinued starting 03/25/2022, 3 completed [facility] Work Phone: Comment on above: Daily until disconti nued starting 03/25/2022, 3 completed CBC W Auto Different ial panel - Blood CBC + DIFF Lab Routine Diarrhea, unspecified type 04/18/2023 4:40 PM EDT [facility] Work Phone: End: 01-12-2023 COLONOSCOPY DIAGNOSTIC COLONOSCOPY DIAGNOSTIC Endoscopy Routine Diarrhea, unspecified type Blood in stool 1 Occurrences starting 01/12/2022 until 01/12/2023 [facility] Work Phone: Comment on above: 1 Occurrences starti ng 01/12/2022 until 01/12/2023 COVID & INFLUENZA A/ B & RSV PCR, ROUTINE COVID & INFLUENZA A/B & RSV PCR, ROUTINE Microbiology Routine URI, acute Ordered: 12/11/2024 [facility] Work Phone: Comment on above: Ordered: 12/11/2024 End: 03-14-2026 DBT Breast - bilateral screening [facility] SCREENING W [facility]ELIN Radiology Routine Encounter for screening mammogram for breast cancer 1 Occurrences starting 02/12/2025 until 03/14/2026 [facility] Work Phone: Comment on above: 1 Occurrences starti ng 02/12/2025 until 03/14/2026 End: 10-15-2023 ECG COMPLETE ECG COMPLETE ECG Routine 1 Occurrences starting 10/15/2022 until 10/15/2023 [facility] Work Phone: Comment on above: 1 Occurrences starti ng 10/15/2022 until 10/15/2023 End: 04-18-2024 ECG COMPLETE ECG COMPLETE ECG Routine Pulsatile tinnitus 1 Occurrences starting 04/18/2023 until 04/18/2024 [facility] Work Phone: Comment on above: 1 Occurrences starti ng 04/18/2023 until 04/18/2024 ECG COMPLETE ECG COMPLETE ECG 04/18/2023 4:08 PM EDT [facility] End: 01-12-2023 EGD DIAGNOSTIC EGD DIAGNOSTIC Endoscopy Routine Gastroesophageal reflux disease, unspecified whether esophagitis present 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 1 Occurrences starting 01/12/2022 until 01/12/2023 [facility] Work Phone: Comment on above: 1 Occurrences starti ng 01/12/2022 until 01/12/2023 End: 03-12-2024 ALMA DIAGNOSTIC RIGHT ALMA DIAGNOSTIC RIGHT Radiology Routine Breast asymmetry 1 Occurrences starting 02/11/2023 until 03/12/2024 [facility] Work Phone: Comment on above: 1 Occurrences starti ng 02/11/2023 until 03/12/2024 End: 04-13-2025 MG Breast Screening ALMA SCREENING Radiology Routine Encounter for screening mammogram for breast cancer 1 Occurrences starting 03/14/2024 until 04/13/2025 [facility] Work Phone: Comment on above: 1 Occurrences starti ng 03/14/2024 until 04/13/2025 Oxygen therapy [[facility] Data Set] Initiate Oxygen Therapy Protocol Respiratory Care Routine As Needed until discontinued starting 03/18/2022 [email or web address] Work Phone: Comment on above: As Needed until disc ontinued starting 03/18/2022 Patient Education [facility] Work Phone: Patient referral [facility] Work Phone: Screening mammograph y bi 2-view breast inc cad ALMA SCREENING Radiology Routine Encounter for screening mammogram for breast cancer 02/02/2022 4:03 PM EDT [facility] Work Phone: Spirometry panel Incentive sonido metry RT Respiratory Care Routine Every 2hr while awake until discontinued starting 03/27/2022 [email or web address] Work Phone: Comment on above: Every 2hr while awak e until discontinued starting 03/27/2022 SURGICAL PATHOLOGY [facility] Work Phone: Comment on above: Release Upon Orderin g for 1 Occurrences starting 03/15/2022, 1 completed End: 03-23-2022 Surgical Pathology [facility] Work Phone: Comment on above: Once for 1 Occurrenc es starting 03/23/2022 until 03/23/2022 End: 03-12-2024 US BREAST LTD RIGHT US BREAST LTD RIGHT Radiology Routine Breast asymmetry 1 Occurrences starting 02/11/2023 until 03/12/2024 [facility] Work Phone: Comment on above: 1 Occurrences starti ng 02/11/2023 until 03/12/2024 End: 07-30-2023 Us chest real time w/image documentation US CHEST WALL/SOFT TISSUE Radiology Routine Soft tissue mass 1 Occurrences starting 06/30/2022 until 07/30/2023 [facility] Work Phone: Comment on above: 1 Occurrences starti ng 06/30/2022 until 07/30/2023 End: 07-30-2023 US SOFT TISSUE ABDOMEN US SOFT TISSUE ABDOMEN Radiology Routine Soft tissue mass 1 Occurrences starting 06/30/2022 until 07/30/2023 [facility] Work Phone: Comment on above: 1 Occurrences starti ng 06/30/2022 until 07/30/2023 [facility] Immunizations Immunization Date Immunization Notes Care Provider Patrick wilkerson 09-11-2021 tetanus toxoid, redu laura diphtheria toxoid, and acellular pertussis vaccine, adsorbed Carole Older HYDROELECTRIC PLANT MAINTAINER.ECOMMERCE MANAGER Work Phone: [facility] 10-31-2018 influenza, seasonal, injectable [facility] 10-31-2018 influenza virus vacc ine, unspecified formulation Geraldmeghan Pham Work Phone: [facility] 07-22-2016 influenza, injectabl e, quadrivalent, contains preservative Carole Older HYDROELECTRIC PLANT MAINTAINER.ECOMMERCE MANAGER Work Phone: [facility] 06-30-2016 influenza, seasonal, injectable [facility] 05-30-2014 pneumococcal polysaccharide vaccine, 23 valent Carole Older HYDROELECTRIC PLANT MAINTAINER.ECOMMERCE MANAGER Work Phone: [facility] Work Phone: 05-30-2014 tetanus toxoid, redu laura diphtheria toxoid, and acellular pertussis vaccine, adsorbed Carole Older HYDROELECTRIC PLANT MAINTAINER.ECOMMERCE MANAGER Work Phone: [facility] Work Phone: 05-28-2014 pneumococcal vaccine , unspecified formulation [facility] Payers Date Payer Category Payer Private Health Insurance [facility] RE [id number] 2024 Unknown [id number] 2024 Self-pay [id number] 2023 Unknown [id number] 2021 Unknown SASHA LUCERO ACCE PPO [id number] 2021-Present [phone] [address] [place] [address] PPO [id number] 2021 Unknown [id number] 2019 Unknown [id number] Unknown [facility] [id number] Unknown [facility] [id number] Unknown [id number] Unknown [id number] Social History Date Type Detail Facility Start: 08-11-2021 End: 11-29-2022 Tobacco smoking status NHIS Ex-smoker [facility] Work Phone: Start: 04-09-2007 History of tobacco use Cigarette Smo ker [facility] Work Phone: Start: 08-11-2021 End: 03-17-2023 Cigarettes smoked current (pack per day) - Reported 0.5 [facility] Start: 08-11-2021 End: 09-25-2024 Tobacco use and exposure Smokeless tobacco non-user [facility] Work Phone: Start: 09-11-2021 End: 04-03-2025 Alcohol intake Current drinker of alcohol (finding) [facility] Start: 12-07-2021 End: 12-30-2022 History SDOH Alcohol Frequency 3 [facility] Start: 12-07-2021 End: 12-30-2022 History SDOH Alcohol Std Drinks 1 [facility] Start: 12-07-2021 End: 12-30-2022 History SDOH Alcohol Binge 2 [facility] Start: 10-12-2018 History SDOH Alcohol Comment occ [facility] Start: 12-07-2021 End: 12-30-2022 History SDOH Social Connections Phone 4 [facility] Start: 12-07-2021 History SDOH Stress 5 [facility] Start: 09-09-2020 Education 21 [facility] Start: 08-11-2021 End: 11-29-2022 Tobacco Comment quit in Nov 2020 [facility] Start: 1980 Sex Assigned At Female C [facility] Start: 07-12-2021 End: 12-16-2022 Exposure to SARS-CoV-2 (event) Not sure [facility] Start: 1980 Sex Assigned At Not on file [facility] Work Phone: Start: 04-09-2007 History of tobacco use Current smoke r [facility] Work Phone: Start: 10-06-2022 End: 04-25-2023 Tobacco smoking status NHIS Unknown if ever smoked [facility] Start: 03-31-2020 Occasional [facility] Start: 03-31-2020 None [facility] Start: 03-31-2020 Spouse/ Signif icant Other [facility] Start: 11-04-2020 Cigarettes [place] Start: 12-30-2022 History SDOH Physica l Activity DPW 0 [facility] Start: 12-30-2022 End: 03-17-2023 Social connection and isolation panel [facility] Do you belong to any clubs or organizations such as bahai groups, unions, fraternal or athletic groups, or school groups? Yes [facility] Are you now , , , , never or living with a partner? [facility] How often to you hav e a drink containing alcohol? 2-4 times a month [facility] How many standard drinks containing alcohol do you have on a typical day? 1 or 2 [facility] How often do you hav e 6 or more drinks on 1 occasion? Less than monthly [facility] How hard is it for y ou to pay for the very basics like food, housing, medical care, and heating Not very hard [facility] Adult Depression Screening Assessment 1 [facility] Do you feel stress - tense, restless, nervous, or anxious, or unable to sleep at night because your mind is troubled all the time - these days [OSQ] Only a little [facility] (I/We) worried piedad er (my/our) food would run out before (I/we) got money to buy more. Never true [facility] In the past 12 month s, was there a time when you were not able to pay the mortgage or rent on time? No [facility] Start: 03-26-2021 Gender identity Identifies as female gender (finding) [facility] Start: 03-26-2021 Sexual orientation Heterosexual (quincy jorge) [facility] Start: 01-02-2024 End: 09-25-2024 Tobacco smoking status NHIS Smokes tobacco daily [facility] Do you feel stress - tense, restless, nervous, or anxious, or unable to sleep at night because your mind is troubled all the time - these days [OSQ] Very much [facility] How many standard drinks containing alcohol do you have on a typical day? 3 or 4 [facility] NEGATED: Highlighted row [facility] Functional Status Date Assessment Result Facility 12-28-2022 Are you deaf, or do you have serious difficulty hearing No 12/28/2022 1:44 PM Sara Serra, KB No [facility] 12-28-2022 Are you blind, or do you have serious difficulty seeing, even when wearing glasses No 12/28/2022 1:44 PM Sara Serra, KB No [facility] 12-28-2022 Do you have serious difficulty walking or climbing stairs No 12/28/2022 1:44 PM Sara Serra, KB No [facility] 12-28-2022 Do you have difficul ty dressing or bathing No 12/28/2022 1:44 PM Sara Serra, KB No [facility] 12-28-2022 Because of a physica l, mental, or emotional condition, do you have difficulty doing errands alone such as visiting a physician's office or shopping No 12/28/2022 1:44 PM Sara Serra, KB No [facility] Mental Status Date Assessment Result Facility 04-25-2023 Cognitive function Level Of Cons ciousness Awake;Alert;Appropriate [facility] Work Phone: 2023 Cognitive function Level Of Cons ciousness Awake;Alert;Appropriate [facility] Work Phone: 12-28-2022 Because of a physica l, mental, or emotional condition, do you have serious difficulty concentrating, remembering, or making decisions No 12/28/2022 1:44 PM Sara Serra, KB No [facility] 12-22-2022 Cognitive function Level Of Cons ciousness Awake;Alert;Appropriate;Fol lows Commands [facility] Work Phone: 12-19-2022 Cognitive function Level Of Cons ciousness Awake;Alert;Appropriate;Fol lows Commands [facility] Work Phone: Clinical Notes 05-30-2014 to 04-03-2025 Patient InstructionsCarole Moore APRN.ECOMMERCE MANAGER - 04/03/2025 4:39 PM Antonette Walsh APRN.ECOMMERCE MANAGER - 01/08/2025 1:21 PM Lindsay Ag APRN.ECOMMERCE MANAGER - 12/11/2024 4:47 PM ESTPatient Instructions Note Date & Type Note Facility 04-03-2025 Instructions Carole Moore APRN.LEATHA - 04/03/2025 4:55 PM EDT - Continue your current medications: semaglutide and spironolactone as prescribed. - Use Ubrelvy for acute migraine relief; take Zofran for nausea and ibuprofen for pain as needed. - Start propranolol for migraine prevention; prescription will be sent to your pharmacy. - Complete fasting blood work at the lab under this office: CBC, CMP (kidney and electrolyte tests), liver enzymes (including ALT), thyroid panel, and a lipid (cholesterol) profile. - Send your FMLA paperwork to our office so it can be completed. - Schedule a follow-up visit after your blood tests to review results and adjust your migraine treatment plan. documented in this encounter [facility] 04-03-2025 Note HNO ID: [id number] Author: CAROLE MOORE APRN.LEATHA Service: ? Author Type: Nurse Practitioner Type: Progress Notes Filed: 04/03/2025 17:10 Note Text: CC: Patient presents with: Headache: Discuss migraines HPI Joan Foley is a 45 year old female who presents today for annual exam and to discuss migraines. Recording using indico software for draft documentation of the visit was discussed with the patient/authorized sales representative consultant; all questions welcomed and answered. Patient/authorized sales representative consultant agreed to proceed Migraines: - Experiencing migraines at least once a week. - Able to manage most episodes with Ubrelvy, but at least once a month, migraines are refractory to treatment. - Recent severe episodes causing emesis and syncope, leading to hospitalization back in November - Gradual increase in frequency and severity over the past year. - Identifies stress and weather changes as triggers. - Noted correlation between migraines and work-related stress with a specific provider. Denies head injuries. - Experiences atypical auras, including nausea and hot spots on the skin. - Associated symptoms include photophobia, phonophobia, and dizziness. - Has seen neurology in the past but has not tried any preventative treatments. PVCs: - History of frequent PVCs, especially with dehydration. - No recent changes or increase in symptoms. - Attempting to schedule a follow-up with cardiology. - denies chest pain, edema, or dyspnea. Has noticed increase in sweating and hot flashes that she thinks may be associated to perimenopause. Is on spironolactone for hirsutism as ordered by dermatology. History of hysterectomy and has 1 ovary. REVIEW OF SYSTEMS General: no fevers, no chills, no night sweats, no recurrent infections, no change in appetite, no change in energy, and no significant changes in weight Respiratory: no cough, no wheezing, no shortness of breath, no hemoptysis Cardiovascular: no chest pain, no chest pressure, and no swelling GI: No nausea, vomiting, or diarrhea : No history of dysuria, frequency or incontinence Endocrine: no weight gain, no weight loss, no polyuria, no polyphagia, and no polydipsia Neurologic: No headache, weakness, numbness, tingling,dizziness, memory loss, syncope. PAST MEDICAL HISTORY Diagnosis Date Abdominal pain Anemia Dyspepsia Endometriosis Fatty liver Hypertension IBS (irritable bowel syndrome) Liver mass Post-cholecystectomy syndrome Renal disorder MASS DISCOVERED 12/2018 RUQ pain 06/10/14 Vitamin D deficiency PAST SURGICAL HISTORY Procedure Laterality Date COLONOSCOPY 03/15/2022 COLONOSCOPY W/BIOPSY 2013 CYST/MOLE REMOVAL Bilateral Left wrist, right hand EGD 03/15/2022 EGD DILATION ENDOSCOPY PROC 2013 bxs LAPS SURG CHOLECYSTECTOMY W/CHOLANGIOGRAPHY 04/24/2014 Normal IOC LIVER SURGERY HX 10/2018 ABLATION FOR MASS PAST SURGICAL HISTORY OF appendectomy PAST SURGICAL HISTORY OF dental procedures PAST SURGICAL HISTORY OF diagnostic laparoscopy PAST SURGICAL HISTORY OF Carpal tunnel release, right PAST SURGICAL HISTORY OF as a child removed a piece of lead from skull PAST SURGICAL HISTORY OF 06/2023 Left arthroscopic knee surgery TOTAL ABDOMINAL HYSTERECT W/WO RMVL TUBE OVARY 2004 Hysterectomy, AMANDA ALLERGIES Penicillins, Chantix [Varenicline], Contrast Dye [Iodine], Demerol [Meperidine (Pf)], Latex, Morphine, and Propoxyphene MEDICATIONS semaglutide 0.25 mg/0.5 mL (0.5 mg/mL) subcutaneous compounded injection Inject 0.25 mg subcutaneously one time a week. ubrogepant (UBRELVY) 100 mg tablet Take 1 tablet by mouth as needed (severe headache.). Repeat in 2 hours if needed. ondansetron orally disintegrating (ZOFRAN ODT) 4 mg disintegrating tablet Take 1 tab every 8 hours as needed for nausea propranolol (INDERAL) 20 mg tablet Take 1 tablet by mouth two times a day. spironolactone (ALDACTONE) 100 mg tablet TAKE 1 TABLET BY MOUTH ONCE DAILY BEFORE BEDTIME WITH A FULL GLASS OF WATER ibuprofen (MOTRIN) 800 mg tablet Take 1 tablet by mouth every 8 hours as needed for pain. Take with food. FAMILY HISTORY Adopted: Yes Problem Relation Age of Onset other (adopted) Other Social History Tobacco Use Smoking status: Every Day Current packs/day: 0.50 Average packs/day: 0.5 packs/day for 11.0 years (5.5 ttl pk-yrs) Types: Cigarettes Smokeless tobacco: Never Tobacco comments: quit in Nov 2020 Vaping Use Vaping status: Never Used Substance Use Topics Alcohol use: Yes Comment: occ Drug use: No PHYSICAL EXAM BP 122/68 Pulse 90 Resp 16 Wt 65.3 kg (144 lb) SpO2 99% BMI 24.72 kg/m? General Appearance: well appearing, in no acute distress, alert Pysch: mood and affect broad and appropriate Eyes: PERRLA, EOM's intact, conjunctiva pink and moist, no icterus, sclera white, non-injected Neck: Thyroid normal size and symmetric without palpable (more content not included)... [facility] 04-03-2025 History of Present illness Narrative CC: Patient presents with: Headache: Discuss migraines HPI Joan Foley is a 45 year old female who presents today for annual exam and to discuss migraines. Recording using indico software for draft documentation of the visit was discussed with the patient/authorized sales representative consultant; all questions welcomed and answered. Patient/authorized sales representative consultant agreed to proceed Migraines: - Experiencing migraines at least once a week. - Able to manage most episodes with Ubrelvy, but at least once a month, migraines are refractory to treatment. - Recent severe episodes causing emesis and syncope, leading to hospitalization back in November - Gradual increase in frequency and severity over the past year. - Identifies stress and weather changes as triggers. - Noted correlation between migraines and work-related stress with a specific provider. Denies head injuries. - Experiences atypical auras, including nausea and hot spots on the skin. - Associated symptoms include photophobia, phonophobia, and dizziness. - Has seen neurology in the past but has not tried any preventative treatments. PVCs: - History of frequent PVCs, especially with dehydration. - No recent changes or increase in symptoms. - Attempting to schedule a follow-up with cardiology. - denies chest pain, edema, or dyspnea. Has noticed increase in sweating and hot flashes that she thinks may be associated to perimenopause. Is on spironolactone for hirsutism as ordered by dermatology. History of hysterectomy and has 1 ovary. REVIEW OF SYSTEMS General: no fevers, no chills, no night sweats, no recurrent infections, no change in appetite, no change in energy, and no significant changes in weight Respiratory: no cough, no wheezing, no shortness of breath, no hemoptysis Cardiovascular: no chest pain, no chest pressure, and no swelling GI: No nausea, vomiting, or diarrhea : No history of dysuria, frequency or incontinence Endocrine: no weight gain, no weight loss, no polyuria, no polyphagia, and no polydipsia Neurologic: No headache, weakness, numbness, tingling,dizziness, memory loss, syncope. PAST MEDICAL HISTORY Diagnosis Date Abdominal pain Anemia Dyspepsia Endometriosis Fatty liver Hypertension IBS (irritable bowel syndrome) Liver mass Post-cholecystectomy syndrome Renal disorder MASS DISCOVERED 12/2018 RUQ pain 06/10/14 Vitamin D deficiency PAST SURGICAL HISTORY Procedure Laterality Date COLONOSCOPY 03/15/2022 COLONOSCOPY W/BIOPSY 2014 CYST/MOLE REMOVAL Bilateral Left wrist, right hand EGD 03/15/2022 EGD DILATION ENDOSCOPY PROC 2013 bxs LAPS SURG CHOLECYSTECTOMY W/CHOLANGIOGRAPHY 04/24/2014 Normal [facility] LIVER SURGERY HX 10/2018 ABLATION FOR MASS PAST SURGICAL HISTORY OF appendectomy PAST SURGICAL HISTORY OF dental procedures PAST SURGICAL HISTORY OF diagnostic laparoscopy PAST SURGICAL HISTORY OF Carpal tunnel release, right PAST SURGICAL HISTORY OF as a child removed a piece of lead from skull PAST SURGICAL HISTORY OF 06/2023 Left arthroscopic knee surgery TOTAL ABDOMINAL HYSTERECT W/WO RMVL TUBE OVARY 2004 Hysterectomy, AMANDA ALLERGIES Penicillins, Chantix [Varenicline], Contrast Dye [Iodine], Demerol [Meperidine (Pf)], Latex, Morphine, and Propoxyphene MEDICATIONS semaglutide 0.25 mg/0.5 mL (0.5 mg/mL) subcutaneous compounded injection Inject 0.25 mg subcutaneously one time a week. ubrogepant (UBRELVY) 100 mg tablet Take 1 tablet by mouth as needed (severe headache.). Repeat in 2 hours if needed. ondansetron orally disintegrating (ZOFRAN ODT) 4 mg disintegrating tablet Take 1 tab every 8 hours as needed for nausea propranolol (INDERAL) 20 mg tablet Take 1 tablet by mouth two times a day. spironolactone (ALDACTONE) 100 mg tablet TAKE 1 TABLET BY MOUTH ONCE DAILY BEFORE BEDTIME WITH A FULL GLASS OF WATER ibuprofen (MOTRIN) 800 mg tablet Take 1 tablet by mouth every 8 hours as needed for pain. Take with food. FAMILY HISTORY Adopted: Yes Problem Relation Age of Onset other (adopted) Other Social History Tobacco Use Smoking status: Every Day Current packs/day: 0.50 Average packs/day: 0.5 packs/day for 11.0 years (5.5 ttl pk-yrs) Types: Cigarettes Smokeless tobacco: Never Tobacco comments: quit in Nov 2020 Vaping Use Vaping status: Never Used Substance Use Topics Alcohol use: Yes Comment: occ Drug use: No PHYSICAL EXAM BP 122/68 Pulse 90 Resp 16 Wt 65.3 kg (144 lb) SpO2 99% BMI 24.72 kg/m General Appearance: well appearing, in no acute distress, alert Pysch: mood and affect broad and appropriate Eyes: PERRLA, EOM's intact, conjunctiva pink and moist, no icterus, sclera white, non-injected Neck: Thyroid normal size and symmetric without palpable nodules, Neck supple, No adenopathy Lymph nodes: No cervical lymphadenopathy and No supraclavicular lymphadenopathy Lungs: Lungs clear to auscultation. No wheezing, rhonchi, rales. Heart: RRR without murmur, gallop, or rubs. No ectopy Abdomen: Abdomen soft, non-tender. Bowel sounds normal. No masses, organomegaly Neurological: Gait normal. Reflexes normal and symmetric. Sensation intact., speech normal, mental status intact, muscle tone normal, muscle strength normal Health maintenance reviewed with patient: Depression Screening Never done Anxiety Screening Never done Hepatitis B Vaccine(1 of 3 - 19+ 3-dose series) Never done Pneumococcal Vaccine(2 of 2 - PCV) due on 05/30/2015 Mammogram Screening due on 02/11/2024 Covid-19 Vaccine(3 - season) due on 06/10/2024 Influenza Vaccine(Season Ended) due on 06/10/2025 Annual PCP Team Chronic Disease Visit due on 04/03/2026 DTaP,Tdap,Td Vaccine(3 - Td or Tdap) due on 09/11/2031 Colorectal Cancer Screening due on 03/15/2032 Hepatitis C Screening Completed HIV Screening Completed Cervical Cancer Screening Discontinued DATA REVIEWED: No new labs but did refer ER visit from November. Assessment/Plan 1. Annual physical exam (Z00.00) - Completed comprehensive physical examination. - Ordered blood work including CBC, CMP, lipid panel, and thyroid function tests. - Patient to have labs drawn at the lab located under her office. - Follow-up appointment to review lab results and discuss further management. 2. Migraine with aura and without status migrainosus, not intractable (G43.109) - Migraines occurring at least once a week, with severe episodes once a month causing vomiting and syncope, leading to missed work days. - Current medications include Ubrelvy, Zofran, and ibuprofen as needed. - Identified triggers include stress and weather changes. - Discussed prophylactic treatment options; initiated propranolol. - if not tolerated can consider topiramate or SNRI for migraines and possible menopausal symptoms. - Provided [place] paperwork instructions. - Follow-up to assess response to propranolol and review lab results. 3. PVC (premature ventricular contraction) (I49.3) - History of frequent PVCs, especially with dehydration. - Heart rate 90 bpm today; blood pressure stable. - Propranolol initiated for migraine prophylaxis may also benefit PVC management. - Patient to monitor symptoms and maintain adequate hydration. - Follow-up in 2-4 weeks or earlier if needed 4. Sweating abnormality (L74.9) - Experiencing hot flashes; discussed potential menopause symptoms but not time left in appointment to go into detail. - Will evaluate further based on thyroid function test results and discuss more at follow up appointment 5. Hirsutism (L68.0) As above - Currently managed with spironolactone. - Continue current management; will reassess if needed based on lab results. Prescription instructions reviewed with patient as applicable. Potential red flag symptoms discussed with the patient. Reviewed appropriate action plan to take if red flag symptoms occur. Patient agreeable to treatment plan. Carole Moore APRN.CNP documented in this encounter [facility] 03-19-2025 Note Patient Outreach (IN TMMN) JOAN FOLEY ([id number]) 1980 F Date Time Provider Department 03/19/25 NICKY KNIGHT During your visit today, we recorded the following information about you: Allergies As of Date: 03/19/2025 Noted Allergy Reaction PENICILLINS 06/24/2005 4 - Hives 10 - Anaphylaxis 12 - Shortness of Breath CHANTIX (VARENICLINE) 08/24/2016 14 - Other: See Comments Comments: Mood changes (irritability), flu like symptoms, body aching CONTRAST DYE (IODINE) 01/12/2022 4 - Hives 7 - Swelling Demerol (MEPERIDINE (PF)) 05/14/2018 14 - Other: See Comments Comments: Nausea LATEX 06/24/2005 14 - Other: See Comments Comments: my skin starts pealing off MORPHINE 10/26/2019 4 - Hives 9 - Itching PROPOXYPHENE 10/30/2018 5 - Intolerance Date Reviewed: 09/25/2024 Reviewed by: Lara Crum LPN - Fully Assessed Visit Diagnosis:Hypertension [I10] Order(s):BASIC METABOLIC PANEL [SQBMP] Order #: [id number] FUTURE Prescriptions as of 03/22/2025 - spironolactone (ALDACTONE) 100 mg tablet TAKE 1 TABLET BY MOUTH ONCE DAILY BEFORE BEDTIME WITH A FULL GLASS OF WATER - ondansetron orally disintegrating (ZOFRAN ODT) 4 mg disintegrating tablet Take 1 tab every 8 hours as needed for nausea - ubrogepant (UBRELVY) 100 mg tablet Take 1 tablet by mouth as needed (severe headache.). Repeat in 2 hours if needed. - ibuprofen (MOTRIN) 800 mg tablet Take 1 tablet by mouth every 8 hours as needed for pain. Take with food. 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] 05/03/2016 Weakness of right arm [R29.898] 05/03/2016 Chronic fatigue [R53.82] 05/03/2016 Tobacco abuse [Z72.0] 05/03/2016 Trigger thumb of right hand [M65.311] 07/26/2016 Right carpal tunnel syndrome [G56.01] 07/26/2016 Postoperative pain [G89.18] 11/02/2018 Obesity, Class I, BMI 30-34.9 [E66.811] 11/04/2018 Hepatic adenoma [D13.4] 12/21/2018 Intractable abdominal pain [R10.9] 10/27/2019 Hypertension [I10] Nonsustained ventricular tachycardia (HCC) [I47*08/04/2020 Headache [R51.9] 12/23/2022 Nicotine use disorder, F17.2 [F17.200] 12/26/2022 Intractable migraine with aura with status migr*02/04/2023 Encounter Status:Closed by TESHA BROOKS on 03/22/25 [facility] 02-12-2025 Note Patient Outreach (IN TMWS) JOAN FOLEY ([id number]) 1980 F Date Time Provider Department 02/12/25 NICKY KNIGHT During your visit today, we recorded the following information about you: Allergies As of Date: 02/12/2025 Noted Allergy Reaction PENICILLINS 06/24/2005 4 - Hives 10 - Anaphylaxis 12 - Shortness of Breath CHANTIX (VARENICLINE) 08/24/2016 14 - Other: See Comments Comments: Mood changes (irritability), flu like symptoms, body aching CONTRAST DYE (IODINE) 01/12/2022 4 - Hives 7 - Swelling Demerol (MEPERIDINE (PF)) 05/14/2018 14 - Other: See Comments Comments: Nausea LATEX 06/24/2005 14 - Other: See Comments Comments: my skin starts pealing off MORPHINE 10/26/2019 4 - Hives 9 - Itching PROPOXYPHENE 10/30/2018 5 - Intolerance Date Reviewed: 09/25/2024 Reviewed by: Lara Crum LPN - Fully Assessed Visit Diagnosis:Encounter for screening mammogram for breast cancer [Z12.31] Order(s):[facility] SCREENING Carlitos WATERS [[id number]] Order #: [id number] FUTURE Prescriptions as of 03/15/2025 - spironolactone (ALDACTONE) 100 mg tablet TAKE 1 TABLET BY MOUTH ONCE DAILY BEFORE BEDTIME WITH A FULL GLASS OF WATER - ondansetron orally disintegrating (ZOFRAN ODT) 4 mg disintegrating tablet Take 1 tab every 8 hours as needed for nausea - ubrogepant (UBRELVY) 100 mg tablet Take 1 tablet by mouth as needed (severe headache.). Repeat in 2 hours if needed. - ibuprofen (MOTRIN) 800 mg tablet Take 1 tablet by mouth every 8 hours as needed for pain. Take with food. 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] 05/03/2016 Weakness of right arm [R29.898] 05/03/2016 Chronic fatigue [R53.82] 05/03/2016 Tobacco abuse [Z72.0] 05/03/2016 Trigger thumb of right hand [M65.311] 07/26/2016 Right carpal tunnel syndrome [G56.01] 07/26/2016 Postoperative pain [G89.18] 11/02/2018 Obesity, Class I, BMI 30-34.9 [E66.811] 11/04/2018 Hepatic adenoma [D13.4] 12/21/2018 Intractable abdominal pain [R10.9] 10/27/2019 Hypertension [I10] Nonsustained ventricular tachycardia (HCC) [I47*08/04/2020 Headache [R51.9] 12/23/2022 Nicotine use disorder, F17.2 [F17.200] 12/26/2022 Intractable migraine with aura with status migr*02/04/2023 Encounter Status:Closed by EPIC, PRODUSER on 03/15/25 [facility] 01-31-2025 Note HNO ID: [id number] Author: JAMAR VALENCIA APRN.ECOMMERCE MANAGER Service: ? Author Type: Nurse Practitioner Type: Progress Notes Filed: 01/31/2025 12:44 Note Text: January 31, 2025 oJan Foley 1980 VIRTUAL VISIT PROGRESS NOTE This is a virtual visit. It required patient-provider interaction for the medical decision making as documented below. Informed verbal consent was obtained from this patient to communicate and provide care using virtual and other telecommunications tools. This patient has been explained the risks related to unauthorized disclosure or interception of personal health information and steps they can take to help protect their information. We have discussed that care provided through video or audio communication cannot replace the need for physical examination or an in person visit for some disorders or urgent problems and patient understands the need to seek urgent care in an Emergency Department as necessary. I have communicated my name and active licensure. The patient's identity and physical location were verified at the time of this visit. Either the patient or their legal sales representative consultant has been informed of the risks and benefits of -- and alternatives to -- treatment through a remote evaluation and consents to proceed with the evaluation remotely. Patient has agreed to the use of Itandi software for the generation of this note. Platform patient seen on: [employer] Video Visit platform Location of patient: [place] Joan Foley is a 45 year old female seen for Patient presents with: Flu Like Symptoms - Onset of symptoms began yesterday afternoon. - Reports fatigue, myalgias, fever (Tmax 101.2?F), lymphadenopathy, and pharyngitis. - Denies chills, sweats, or visible lesions in the oropharynx. - Associated symptoms include headache and diarrhea. - Denies significant nasal congestion or rhinorrhea. - Negative home COVID test. HISTORY REVIEWED (electronic chart updated): PAST MEDICAL HISTORY Diagnosis Date Abdominal pain Anemia Dyspepsia Endometriosis Fatty liver Hypertension IBS (irritable bowel syndrome) Liver mass Post-cholecystectomy syndrome Renal disorder MASS DISCOVERED 12/2018 RUQ pain 06/10/14 Vitamin D deficiency PAST SURGICAL HISTORY Procedure Laterality Date COLONOSCOPY 03/15/2022 COLONOSCOPY W/BIOPSY 2013 CYST/MOLE REMOVAL Bilateral Left wrist, right hand EGD 03/15/2022 EGD DILATION ENDOSCOPY PROC 2013 bxs LAPS SURG CHOLECYSTECTOMY W/CHOLANGIOGRAPHY 04/24/2014 Normal [facility] LIVER SURGERY HX 10/2018 ABLATION FOR MASS PAST SURGICAL HISTORY OF appendectomy PAST SURGICAL HISTORY OF dental procedures PAST SURGICAL HISTORY OF diagnostic laparoscopy PAST SURGICAL HISTORY OF Carpal tunnel release, right PAST SURGICAL HISTORY OF as a child removed a piece of lead from skull PAST SURGICAL HISTORY OF 06/2023 Left arthroscopic knee surgery TOTAL ABDOMINAL HYSTERECT W/WO RMVL TUBE OVARY 2004 Hysterectomy, AMANDA FAMILY HISTORY Adopted: Yes Problem Relation Age of Onset other (adopted) Other Social History Tobacco Use Smoking status: Every Day Current packs/day: 0.50 Average packs/day: 0.5 packs/day for 11.0 years (5.5 ttl pk-yrs) Types: Cigarettes Smokeless tobacco: Never Tobacco comments: quit in Nov 2020 Vaping Use Vaping status: Never Used Substance Use Topics Alcohol use: Yes Comment: occ Drug use: No Current Outpatient Medications Medication Sig spironolactone (ALDACTONE) 100 mg tablet TAKE 1 TABLET BY MOUTH ONCE DAILY BEFORE BEDTIME WITH A FULL GLASS OF WATER ondansetron orally disintegrating (ZOFRAN ODT) 4 mg disintegrating tablet Take 1 tab every 8 hours as needed for nausea ubrogepant (UBRELVY) 100 mg tablet Take 1 tablet by mouth as needed (severe headache.). Repeat in 2 hours if needed. ibuprofen (MOTRIN) 800 mg tablet Take 1 tablet by mouth every 8 hours as needed for pain. Take with food. No current facility-administered medications for this visit. ALLERGIES Allergen Reactions Penicillins Hives, Anaphylaxis, Shortness of Breath Chantix [Vareniclin* Other: See Comments Mood changes (irritability), flu like symptoms, body aching Contrast Dye [Iodin* Hives, Swelling Demerol [Meperidine* Other: See Comments Nausea Latex Other: See Comments my skin starts pealing off Morphine Hives, Itching Propoxyphene Intolerance REVIEW OF SYSTEMS: Constitutional: (+) fever, (+) fatigue, (-) chills, (-) sweats Head: (+) headache Ears/Nose/Mouth/Throat: (+) sore throat, (-) nasal congestion, (-) runny nose Gastrointestinal: (+) diarrhea, (-) nausea, (-) vomiting Musculoskeletal: (+) myalgia Hematologic/Lymphatic: (+) swollen lymph nodes PHYSICAL EXAMINATION: VIDEO EXAM: (performed via video enabled technology) GENERAL: alert and appropriate, in no distress, well-hydrated, well nourished, happy, smiling, interactive, and appears tired (more content not included)... [facility] 01-08-2025 Note HNO ID: [id number] Author: ANTONETTE NIEVES APRN.LEATHA Service: ? Author Type: Nurse Practitioner Type: Progress Notes Filed: 01/08/2025 13:35 Note Text: Telemedicine Visit - Digital Health Virtual Visit Note Patient seen on [email or web address] Video Visit platform. Location of patient: [place] I have communicated my name and active licensure. The patient's identity and physical location were verified at the time of this visit. Either the patient or their legal sales representative consultant has been informed of the risks and benefits of -- and alternatives to -- treatment through a remote evaluation and consents to proceed with the evaluation remotely. History of Present Illness Joan Foley is a 45 year old female who presents for the past 1 day(s) with symptoms of n/v/d/, abdominal cramping, chills, fatigue and myalgias that are: Constant Symptoms include:Positive for Nausea, Emesis, Diarrhea , Cramping, Chills/Sweats, Fatigue, and Myalgias and Negative for Blood in Stool, Abdominal Pain, Fever , Headache, Dizziness, and Urinary Symptoms No history of gastrointestinal disease. No known risk factors for parasitic or bacterial infection. 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 Recent travel: no Recent Antibiotic use: no Recent Hospitalization: no Number and description of stool: watery brown Number and description of emesis: food to bile OTC meds/remedies that patient has tried: Zofran, and ibuprofen PAST MEDICAL HISTORY Diagnosis Date Abdominal pain Anemia Dyspepsia Endometriosis Fatty liver Hypertension IBS (irritable bowel syndrome) Liver mass Post-cholecystectomy syndrome Renal disorder MASS DISCOVERED 12/2018 RUQ pain 06/10/14 Vitamin D deficiency PAST SURGICAL HISTORY Procedure Laterality Date COLONOSCOPY 03/15/2022 COLONOSCOPY W/BIOPSY 2013 CYST/MOLE REMOVAL Bilateral Left wrist, right hand EGD 03/15/2022 EGD DILATION ENDOSCOPY PROC 2013 bxs LAPS SURG CHOLECYSTECTOMY W/CHOLANGIOGRAPHY 04/24/2014 Normal [facility]IVER SURGERY HX 10/2018 ABLATION FOR MASS PAST SURGICAL HISTORY OF appendectomy PAST SURGICAL HISTORY OF dental procedures PAST SURGICAL HISTORY OF diagnostic laparoscopy PAST SURGICAL HISTORY OF Carpal tunnel release, right PAST SURGICAL HISTORY OF as a child removed a piece of lead from skull PAST SURGICAL HISTORY OF 06/2023 Left arthroscopic knee surgery TOTAL ABDOMINAL HYSTERECT W/WO RMVL TUBE OVARY 2004 Hysterectomy, AMANDA FAMILY HISTORY Adopted: Yes Problem Relation Age of Onset other (adopted) Other Social History Tobacco Use Smoking status: Every Day Current packs/day: 0.50 Average packs/day: 0.5 packs/day for 11.0 years (5.5 ttl pk-yrs) Types: Cigarettes Smokeless tobacco: Never Tobacco comments: quit in Nov 2020 Vaping Use Vaping status: Never Used Substance Use Topics Alcohol use: Yes Comment: occ Drug use: No Current Outpatient Medications Medication Sig spironolactone (ALDACTONE) 100 mg tablet TAKE 1 TABLET BY MOUTH ONCE DAILY BEFORE BEDTIME WITH A FULL GLASS OF WATER benzonatate (TESSALON PERLE) 100 mg capsule Take 1 capsule by mouth three times a day as needed. albuterol HFA (VENTOLIN HFA) 90 mcg/actuation inhaler Inhale 2 Puffs as instructed every 4 hours as needed for wheezing/shortness of breath. benzonatate (TESSALON PERLE) 100 mg capsule Take 2 capsules by mouth three times a day as needed. ondansetron orally disintegrating (ZOFRAN ODT) 4 mg disintegrating tablet Take 1 tab every 8 hours as needed for nausea ubrogepant (UBRELVY) 100 mg tablet Take 1 tablet by mouth as needed (severe headache.). Repeat in 2 hours if needed. nebivolol (BYSTOLIC) 2.5 mg tablet Take 1 tablet by mouth once daily. ibuprofen (MOTRIN) 800 mg tablet Take 1 tablet by mouth every 8 hours as needed for pain. Take with food. OLANZapine (ZYPREXA) 10 mg tablet take 1/2 to 1 tablet by mouth at bedtime for 30 days gabapentin (NEURONTIN) 300 mg capsule Take 1 capsule by mouth three times daily. baclofen (LIORESAL) 5 mg tablet take 1 TO 2 tablet by mouth twice a day if needed for headache metoprolol tartrate, short acting, (LOPRESSOR) 25 mg tablet Take 1 tablet by mouth once daily. As directed No current facility-administered medications for this visit. ALLERGIES Allergen Reactions Penicillins Hives, Anaphylaxis, Shortness of Breath Chantix [Vareniclin* Other: See Comments Mood changes (irritability), flu like symptoms, body aching Contrast Dye [Iodin* Hives, Swelling Demerol [Meperidine* Other: See Comments Nausea Latex Other: See Comments my skin starts pealing off Morphine Hives, Itching Propoxyphene Intolerance Video Exam (Examination performed via Video enabled technology) General appearance: Alert, oriented, pleasant, in NAD :Yes Ill appearing :No Lethargic appearing :No Hydration: Appears Hydrate (more content not included)... [facility] 01-08-2025 History of Present illness Narrative Telemedicine Visit - Digital Health Virtual Visit Note Patient seen on [employer] Video Visit platform. Location of patient: [place] I have communicated my name and active licensure. The patient's identity and physical location were verified at the time of this visit. Either the patient or their legal sales representative consultant has been informed of the risks and benefits of -- and alternatives to -- treatment through a remote evaluation and consents to proceed with the evaluation remotely. History of Present Illness Joan Foley is a 45 year old female who presents for the past 1 day(s) with symptoms of n/v/d/, abdominal cramping, chills, fatigue and myalgias that are: Constant Symptoms include:Positive for Nausea, Emesis, Diarrhea , Cramping, Chills/Sweats, Fatigue, and Myalgias and Negative for Blood in Stool, Abdominal Pain, Fever , Headache, Dizziness, and Urinary Symptoms No history of gastrointestinal disease. No known risk factors for parasitic or bacterial infection. 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 Recent travel: no Recent Antibiotic use: no Recent Hospitalization: no Number and description of stool: watery brown Number and description of emesis: food to bile OTC meds/remedies that patient has tried: Zofran, and ibuprofen PAST MEDICAL HISTORY Diagnosis Date Abdominal pain Anemia Dyspepsia Endometriosis Fatty liver Hypertension IBS (irritable bowel syndrome) Liver mass Post-cholecystectomy syndrome Renal disorder MASS DISCOVERED 12/2018 RUQ pain 06/10/14 Vitamin D deficiency PAST SURGICAL HISTORY Procedure Laterality Date COLONOSCOPY 03/15/2022 COLONOSCOPY W/BIOPSY 2013 CYST/MOLE REMOVAL Bilateral Left wrist, right hand EGD 03/15/2022 EGD DILATION ENDOSCOPY PROC 2013 bxs LAPS SURG CHOLECYSTECTOMY W/CHOLANGIOGRAPHY 04/24/2014 Normal [facility] LIVER SURGERY HX 10/2018 ABLATION FOR MASS PAST SURGICAL HISTORY OF appendectomy PAST SURGICAL HISTORY OF dental procedures PAST SURGICAL HISTORY OF diagnostic laparoscopy PAST SURGICAL HISTORY OF Carpal tunnel release, right PAST SURGICAL HISTORY OF as a child removed a piece of lead from skull PAST SURGICAL HISTORY OF 06/2023 Left arthroscopic knee surgery TOTAL ABDOMINAL HYSTERECT W/WO RMVL TUBE OVARY 2004 Hysterectomy, AMANDA FAMILY HISTORY Adopted: Yes Problem Relation Age of Onset other (adopted) Other Social History Tobacco Use Smoking status: Every Day Current packs/day: 0.50 Average packs/day: 0.5 packs/day for 11.0 years (5.5 ttl pk-yrs) Types: Cigarettes Smokeless tobacco: Never Tobacco comments: quit in Nov 2020 Vaping Use Vaping status: Never Used Substance Use Topics Alcohol use: Yes Comment: occ Drug use: No Current Outpatient Medications Medication Sig spironolactone (ALDACTONE) 100 mg tablet TAKE 1 TABLET BY MOUTH ONCE DAILY BEFORE BEDTIME WITH A FULL GLASS OF WATER benzonatate (TESSALON PERLE) 100 mg capsule Take 1 capsule by mouth three times a day as needed. albuterol HFA (VENTOLIN HFA) 90 mcg/actuation inhaler Inhale 2 Puffs as instructed every 4 hours as needed for wheezing/shortness of breath. benzonatate (TESSALON PERLE) 100 mg capsule Take 2 capsules by mouth three times a day as needed. ondansetron orally disintegrating (ZOFRAN ODT) 4 mg disintegrating tablet Take 1 tab every 8 hours as needed for nausea ubrogepant (UBRELVY) 100 mg tablet Take 1 tablet by mouth as needed (severe headache.). Repeat in 2 hours if needed. nebivolol (BYSTOLIC) 2.5 mg tablet Take 1 tablet by mouth once daily. ibuprofen (MOTRIN) 800 mg tablet Take 1 tablet by mouth every 8 hours as needed for pain. Take with food. OLANZapine (ZYPREXA) 10 mg tablet take 1/2 to 1 tablet by mouth at bedtime for 30 days gabapentin (NEURONTIN) 300 mg capsule Take 1 capsule by mouth three times daily. baclofen (LIORESAL) 5 mg tablet take 1 TO 2 tablet by mouth twice a day if needed for headache metoprolol tartrate, short acting, (LOPRESSOR) 25 mg tablet Take 1 tablet by mouth once daily. As directed No current facility-administered medications for this visit. ALLERGIES Allergen Reactions Penicillins Hives, Anaphylaxis, Shortness of Breath Chantix [Vareniclin* Other: See Comments Mood changes (irritability), flu like symptoms, body aching Contrast Dye [Iodin* Hives, Swelling Demerol [Meperidine* Other: See Comments Nausea Latex Other: See Comments my skin starts pealing off Morphine Hives, Itching Propoxyphene Intolerance Video Exam (Examination performed via Video enabled technology) General appearance: Alert, oriented, pleasant, in NAD :Yes Ill appearing :No Lethargic appearing :No Hydration: Appears Hydrated Oropharynx:Mucus membranes appears moist Respiratory distress :No Abdomen inspection: Distended: No, Tenderness to self-palpation: No ASSESSMENT Viral gastroenteritis (primary encounter diagnosis) Encounter to obtain excuse from work PLAN: - Symptomatic treatment: Pepto-Bismol as needed - continue zofran as needed - Clear liquids in frequent, small amounts - BRAT diet (bananas, rice, applesauce, toast) advance diet as tolerated. Avoid dairy products - Handwashing - Recheck prn persistence, worsening, appearance of new symptoms. - Red flags discussed for need for in person care - All questions answered - Uploaded in [employer] Antonette Nieves APRN.CNP History and Record Review External record(s) reviewed: prior outpatient record and prior labs/imaging. Differential Diagnoses - Viral gastroenteritis is more likely for the following reason(s): suggested by H&P - Bacterial Gastroenteritis is less likely for the following reason(s): H&P not suggestive Disposition The patient was discharged. documented in this encounter [facility] 12-11-2024 Note SARS-COV-2 (AGENT OF COVID-19) RNA: Not detected INFLUENZA A RNA: Not detected INFLUENZA B RNA: Not detected RESPIRATORY SYNCYTIAL VIRUS (RSV) RNA: Not detected [facility] Comment on above: Performed By: #### [id number] ####[facility] [id number] [address] 12-11-2024 Note HNO ID: [id number] Author: LINDSAY CROCKETT APRN.LEATHA Service: ? Author Type: Nurse Practitioner Type: Progress Notes Filed: 12/11/2024 17:04 Note Text: This note was created using NoteWriter. Subjective Joan Foley is a 44 year old female. 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 No trading manager was used. Flu Like Symptoms This is a new problem. Episode onset: 2 days ago. The problem occurs constantly. The problem has been unchanged. Associated symptoms include chills, congestion, coughing, fatigue, headaches and nausea. Pertinent negatives include no abdominal pain, anorexia, arthralgias, change in bowel habit, diaphoresis, fever, numbness, rash, sore throat, swollen glands, urinary symptoms, vertigo, visual change, vomiting or weakness. Nothing aggravates the symptoms. She has tried nothing for the symptoms. The treatment provided no relief. PAST MEDICAL HISTORY Diagnosis Date Abdominal pain Anemia Dyspepsia Endometriosis Fatty liver Hypertension IBS (irritable bowel syndrome) Liver mass Post-cholecystectomy syndrome Renal disorder MASS DISCOVERED 12/2018 RUQ pain 06/10/14 Vitamin D deficiency PAST SURGICAL HISTORY Procedure Laterality Date COLONOSCOPY 03/15/2022 COLONOSCOPY W/BIOPSY 2013 CYST/MOLE REMOVAL Bilateral Left wrist, right hand EGD 03/15/2022 EGD DILATION ENDOSCOPY PROC 2013 bxs LAPS SURG CHOLECYSTECTOMY W/CHOLANGIOGRAPHY 04/24/2014 Normal [facility] LIVER SURGERY HX 10/2018 ABLATION FOR MASS PAST SURGICAL HISTORY OF appendectomy PAST SURGICAL HISTORY OF dental procedures PAST SURGICAL HISTORY OF diagnostic laparoscopy PAST SURGICAL HISTORY OF Carpal tunnel release, right PAST SURGICAL HISTORY OF as a child removed a piece of lead from skull PAST SURGICAL HISTORY OF 06/2023 Left arthroscopic knee surgery TOTAL ABDOMINAL HYSTERECT W/WO RMVL TUBE OVARY 2004 Hysterectomy, AMANDA ALLERGIES Penicillins, Chantix [Varenicline], Contrast Dye [Iodine], Demerol [Meperidine (Pf)], Latex, Morphine, and Propoxyphene MEDICATIONS spironolactone (ALDACTONE) 100 mg tablet TAKE 1 TABLET BY MOUTH ONCE DAILY BEFORE BEDTIME WITH A FULL GLASS OF WATER benzonatate (TESSALON PERLE) 100 mg capsule Take 1 capsule by mouth three times a day as needed. albuterol HFA (VENTOLIN HFA) 90 mcg/actuation inhaler Inhale 2 Puffs as instructed every 4 hours as needed for wheezing/shortness of breath. benzonatate (TESSALON PERLE) 100 mg capsule Take 2 capsules by mouth three times a day as needed. ondansetron orally disintegrating (ZOFRAN ODT) 4 mg disintegrating tablet Take 1 tab every 8 hours as needed for nausea ubrogepant (UBRELVY) 100 mg tablet Take 1 tablet by mouth as needed (severe headache.). Repeat in 2 hours if needed. ibuprofen (MOTRIN) 800 mg tablet Take 1 tablet by mouth every 8 hours as needed for pain. Take with food. nebivolol (BYSTOLIC) 2.5 mg tablet Take 1 tablet by mouth once daily. OLANZapine (ZYPREXA) 10 mg tablet take 1/2 to 1 tablet by mouth at bedtime for 30 days gabapentin (NEURONTIN) 300 mg capsule Take 1 capsule by mouth three times daily. baclofen (LIORESAL) 5 mg tablet take 1 TO 2 tablet by mouth twice a day if needed for headache metoprolol tartrate, short acting, (LOPRESSOR) 25 mg tablet Take 1 tablet by mouth once daily. As directed FAMILY HISTORY Adopted: Yes Problem Relation Age of Onset other (adopted) Other Social History Tobacco Use Smoking status: Every Day Current packs/day: 0.50 Average packs/day: 0.5 packs/day for 11.0 years (5.5 ttl pk-yrs) Types: Cigarettes Smokeless tobacco: Never Tobacco comments: quit in Nov 2020 Vaping Use Vaping status: Never Used Substance Use Topics Alcohol use: Yes Comment: occ Drug use: No Review of Systems Constitutional: Positive for chills and fatigue. Negative for diaphoresis and fever. HENT: Positive for congestion. Negative for sore throat. Respiratory: Positive for cough. Gastrointestinal: Positive for nausea. Negative for abdominal pain, anorexia, change in bowel habit and vomiting. Musculoskeletal: Negative for arthralgias. Skin: Negative for rash. Neurological: Positive for headaches. Negative for vertigo, weakness and numbness. Objective BP 122/80 Pulse 100 Temp 37 ?C (98.6 ?F) (Tympanic) Resp 18 Wt 71.4 kg (157 lb 6.5 oz) SpO2 98% BMI 27.02 kg/m? Physical Exam Vitals and nursing note reviewed. Constitutional: General: She is not in acute distress. (more content not included)... [facility] 12-11-2024 History of Present illness Narrative This note was created using [employer]. Subjective Joan Foley is a 44 year old female. 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 No trading manager was used. Flu Like Symptoms This is a new problem. Episode onset: 2 days ago. The problem occurs constantly. The problem has been unchanged. Associated symptoms include chills, congestion, coughing, fatigue, headaches and nausea. Pertinent negatives include no abdominal pain, anorexia, arthralgias, change in bowel habit, diaphoresis, fever, numbness, rash, sore throat, swollen glands, urinary symptoms, vertigo, visual change, vomiting or weakness. Nothing aggravates the symptoms. She has tried nothing for the symptoms. The treatment provided no relief. PAST MEDICAL HISTORY Diagnosis Date Abdominal pain Anemia Dyspepsia Endometriosis Fatty liver Hypertension IBS (irritable bowel syndrome) Liver mass Post-cholecystectomy syndrome Renal disorder MASS DISCOVERED 12/2018 RUQ pain 06/10/14 Vitamin D deficiency PAST SURGICAL HISTORY Procedure Laterality Date COLONOSCOPY 03/15/2022 COLONOSCOPY W/BIOPSY 2013 CYST/MOLE REMOVAL Bilateral Left wrist, right hand EGD 03/15/2022 EGD DILATION ENDOSCOPY PROC 2013 bxs LAPS SURG CHOLECYSTECTOMY W/CHOLANGIOGRAPHY 04/24/2014 Normal [facility] LIVER SURGERY HX 10/2018 ABLATION FOR MASS PAST SURGICAL HISTORY OF appendectomy PAST SURGICAL HISTORY OF dental procedures PAST SURGICAL HISTORY OF diagnostic laparoscopy PAST SURGICAL HISTORY OF Carpal tunnel release, right PAST SURGICAL HISTORY OF as a child removed a piece of lead from skull PAST SURGICAL HISTORY OF 06/2023 Left arthroscopic knee surgery TOTAL ABDOMINAL HYSTERECT W/WO RMVL TUBE OVARY 2004 Hysterectomy, AMANDA ALLERGIES Penicillins, Chantix [Varenicline], Contrast Dye [Iodine], Demerol [Meperidine (Pf)], Latex, Morphine, and Propoxyphene MEDICATIONS spironolactone (ALDACTONE) 100 mg tablet TAKE 1 TABLET BY MOUTH ONCE DAILY BEFORE BEDTIME WITH A FULL GLASS OF WATER benzonatate (TESSALON PERLE) 100 mg capsule Take 1 capsule by mouth three times a day as needed. albuterol HFA (VENTOLIN HFA) 90 mcg/actuation inhaler Inhale 2 Puffs as instructed every 4 hours as needed for wheezing/shortness of breath. benzonatate (TESSALON PERLE) 100 mg capsule Take 2 capsules by mouth three times a day as needed. ondansetron orally disintegrating (ZOFRAN ODT) 4 mg disintegrating tablet Take 1 tab every 8 hours as needed for nausea ubrogepant (UBRELVY) 100 mg tablet Take 1 tablet by mouth as needed (severe headache.). Repeat in 2 hours if needed. ibuprofen (MOTRIN) 800 mg tablet Take 1 tablet by mouth every 8 hours as needed for pain. Take with food. nebivolol (BYSTOLIC) 2.5 mg tablet Take 1 tablet by mouth once daily. OLANZapine (ZYPREXA) 10 mg tablet take 1/2 to 1 tablet by mouth at bedtime for 30 days gabapentin (NEURONTIN) 300 mg capsule Take 1 capsule by mouth three times daily. baclofen (LIORESAL) 5 mg tablet take 1 TO 2 tablet by mouth twice a day if needed for headache metoprolol tartrate, short acting, (LOPRESSOR) 25 mg tablet Take 1 tablet by mouth once daily. As directed FAMILY HISTORY Adopted: Yes Problem Relation Age of Onset other (adopted) Other Social History Tobacco Use Smoking status: Every Day Current packs/day: 0.50 Average packs/day: 0.5 packs/day for 11.0 years (5.5 ttl pk-yrs) Types: Cigarettes Smokeless tobacco: Never Tobacco comments: quit in Nov 2020 Vaping Use Vaping status: Never Used Substance Use Topics Alcohol use: Yes Comment: occ Drug use: No Review of Systems Constitutional: Positive for chills and fatigue. Negative for diaphoresis and fever. HENT: Positive for congestion. Negative for sore throat. Respiratory: Positive for cough. Gastrointestinal: Positive for nausea. Negative for abdominal pain, anorexia, change in bowel habit and vomiting. Musculoskeletal: Negative for arthralgias. Skin: Negative for rash. Neurological: Positive for headaches. Negative for vertigo, weakness and numbness. Objective BP 122/80 Pulse 100 Temp 37 C (98.6 F) (Tympanic) Resp 18 Wt 71.4 kg (157 lb 6.5 oz) SpO2 98% BMI 27.02 kg/m Physical Exam Vitals and nursing note reviewed. Constitutional: General: She is not in acute distress. Appearance: Normal appearance. She is normal weight. She is not ill-appearing, toxic-appearing or diaphoretic. HENT: Head: Normocephalic and atraumatic. Right Ear: Ear canal and external ear normal. Left Ear: Ear canal and external ear normal. Nose: Rhinorrhea present. No congestion. Mouth/Throat: Mouth: Mucous membranes are moist. Pharynx: Posterior oropharyngeal erythema present. No oropharyngeal exudate. Eyes: General: Right eye: No discharge. Left eye: No discharge. Extraocular Movements: Extraocular movements intact. Conjunctiva/sclera: Conjunctivae normal. Pupils: Pupils are equal, round, and reactive to light. Cardiovascular: Rate and Rhythm: Normal rate and regular rhythm. Pulses: Normal pulses. Heart sounds: Normal heart sounds. No murmur heard. No friction rub. Pulmonary: Effort: Pulmonary effort is normal. No respiratory distress. Breath sounds: Normal breath sounds. No stridor. No wheezing, rhonchi or rales. Chest: Chest wall: No tenderness. Abdominal: General: Abdomen is flat. There is no distension. Palpations: Abdomen is soft. There is no mass. Tenderness: There is no abdominal tenderness. There is no right CVA tenderness, left CVA tenderness, guarding or rebound. Hernia: No hernia is present. Musculoskeletal: General: No swelling, tenderness, deformity or signs of injury. Normal range of motion. Cervical back: Normal range of motion and neck supple. No rigidity. Right lower leg: No edema. Left lower leg: No edema. Comments: No midline cervical, thoracic or lumbar TTP Ambulatory in exam room Lymphadenopathy: Cervical: Cervical adenopathy present. Skin: General: Skin is warm and dry. Coloration: Skin is not jaundiced or pale. Findings: No bruising, erythema, lesion or rash. Neurological: General: No focal deficit present. Mental Status: She is alert and oriented to person, place, and time. Cranial Nerves: No cranial nerve deficit. Sensory: No sensory deficit. Motor: No weakness. Coordination: Coordination normal. Gait: Gait normal. Psychiatric: Mood and Affect: Mood normal. Behavior: Behavior normal. Thought Content: Thought content normal. Judgment: Judgment normal. Assessment and Plan ASSESSMENT/PLAN: 1. URI, acute - ICD9: 465.9, ICD10: J06.9 (primary diagnosis) Acute Onset 12/09/24 - Discussed viral etiology and rationale for treatment. - Symptomatic treatment with prn analgesia - Supportive care with fluids and rest - The patient may also use OTC cough and cold meds as needed, warm salt water gargles, throat lozenges and/or OTC throat spray as needed, and nasal saline gtts and suction prn. - Follow up in 3-5 days if symptoms persist or sooner if worsening of symptoms - COVID & INFLUENZA A/B & RSV PCR, ROUTINE 2. Exposure to influenza - ICD9: V01.79, ICD10: Z20.828 + ill contacts Sx since 12/09/24, outside of Tamiflu window COVID/FLU obtained and pending Lindsay Crockett APRN.ECOMMERCE MANAGER documented in this encounter [facility] 10-31-2024 Note HNO ID: [id number] Author: OUMOU VALENTINE APRN.ECOMMERCE MANAGER Service: ? Author Type: Nurse Practitioner Type: Progress Notes Filed: 10/31/2024 13:35 Note Text: Telemedicine Visit - Distance Health Virtual Visit Note Patient seen on [employer] Video Visit platform. Location of patient: [place] I have communicated my name and active licensure. The patient's identity and physical location were verified at the time of this visit. Either the patient or their legal sales representative consultant has been informed of the risks and benefits of -- and alternatives to -- treatment through a remote evaluation and consents to proceed with the evaluation remotely. CC: cough History of Present Illness Joan Foley is a 44 year old female who presents symptoms of cough for the past 2 days Symptoms include: Positive for Cough, Nasal congestion, and Fatigue, Negative for Fever, Chills/Sweats, Hemoptysis, SOB, ALVAREZ, Wheezing, Nasal congestion, PND, Ear pain, Ear pressure, Nausea, Emesis, and Diarrhea, Oral intake: Normal appetite Recent rapid at-home COVID test completed: Yes Sick contacts: yes Recent travel: no /Lactating: : No: Lactating: No OTC meds/remedies that patient has tried: Dayquil, proair, motrin and tessalon . PAST MEDICAL HISTORY Diagnosis Date Abdominal pain Anemia Dyspepsia Endometriosis Fatty liver Hypertension IBS (irritable bowel syndrome) Liver mass Post-cholecystectomy syndrome Renal disorder MASS DISCOVERED 12/2018 RUQ pain 06/10/14 Vitamin D deficiency PAST SURGICAL HISTORY Procedure Laterality Date COLONOSCOPY 03/15/2022 COLONOSCOPY W/BIOPSY 2013 CYST/MOLE REMOVAL Bilateral Left wrist, right hand EGD 03/15/2022 EGD DILATION ENDOSCOPY PROC 2013 bxs LAPS SURG CHOLECYSTECTOMY W/CHOLANGIOGRAPHY 04/24/2014 Normal [facility] LIVER SURGERY HX 10/2018 ABLATION FOR MASS PAST SURGICAL HISTORY OF appendectomy PAST SURGICAL HISTORY OF dental procedures PAST SURGICAL HISTORY OF diagnostic laparoscopy PAST SURGICAL HISTORY OF Carpal tunnel release, right PAST SURGICAL HISTORY OF as a child removed a piece of lead from skull PAST SURGICAL HISTORY OF 06/2023 Left arthroscopic knee surgery TOTAL ABDOMINAL HYSTERECT W/WO RMVL TUBE OVARY 2004 Hysterectomy, AMANDA FAMILY HISTORY Adopted: Yes Problem Relation Age of Onset other (adopted) Other Social History Tobacco Use Smoking status: Every Day Current packs/day: 0.50 Average packs/day: 0.5 packs/day for 11.0 years (5.5 ttl pk-yrs) Types: Cigarettes Smokeless tobacco: Never Tobacco comments: quit in Nov 2020 Vaping Use Vaping status: Never Used Substance Use Topics Alcohol use: Yes Comment: occ Drug use: No Current Outpatient Medications Medication Sig albuterol HFA (VENTOLIN HFA) 90 mcg/actuation inhaler Inhale 2 Puffs as instructed every 4 hours as needed for wheezing/shortness of breath. benzonatate (TESSALON PERLE) 100 mg capsule Take 2 capsules by mouth three times a day as needed. ondansetron orally disintegrating (ZOFRAN ODT) 4 mg disintegrating tablet Take 1 tab every 8 hours as needed for nausea ubrogepant (UBRELVY) 100 mg tablet Take 1 tablet by mouth as needed (severe headache.). Repeat in 2 hours if needed. nebivolol (BYSTOLIC) 2.5 mg tablet Take 1 tablet by mouth once daily. ibuprofen (MOTRIN) 800 mg tablet Take 1 tablet by mouth every 8 hours as needed for pain. Take with food. OLANZapine (ZYPREXA) 10 mg tablet take 1/2 to 1 tablet by mouth at bedtime for 30 days gabapentin (NEURONTIN) 300 mg capsule Take 1 capsule by mouth three times daily. baclofen (LIORESAL) 5 mg tablet take 1 TO 2 tablet by mouth twice a day if needed for headache metoprolol tartrate, short acting, (LOPRESSOR) 25 mg tablet Take 1 tablet by mouth once daily. As directed No current facility-administered medications for this visit. ALLERGIES Allergen Reactions Penicillins Hives, Anaphylaxis, Shortness of Breath Chantix [Vareniclin* Other: See Comments Mood changes (irritability), flu like symptoms, body aching Contrast Dye [Iodin* Hives, Swelling Demerol [Meperidine* Other: See Comments Nausea Latex Other: See Comments my skin starts pealing off Morphine Hives, Itching Propoxyphene Intolerance Video Exam (Examination performed via Video enabled technology) General appearance: Alert, oriented, pleasant, in NAD: Yes Ill appearing: No Lethargic appearing: No Eyes: Sclera clear: Yes Conjunctiva without erythema: Yes Ears: Tragus / outer ear tenderness by self palpation: No Oropharynx: moist mucus membranes Frontal sinus tenderness by self palpation: No Maxillary sinus tenderness by self palpation: No Tender cervical adenopathy by self palpation: Yes Respiratory distress: No Coughing noted: No Audible wheezing noted: No ASSESSMENT/PLAN: 1. Acute cough - ICD9: 786.2, ICD10: R05.1 - Tessalon as needed - Supportive care: fluids, re (more content not included)... [facility] 10-31-2024 History of Present illness Narrative Telemedicine Visit - Distance Health Virtual Visit Note Patient seen on HashTip Video Visit platform. Location of patient: [place] I have communicated my name and active licensure. The patient's identity and physical location were verified at the time of this visit. Either the patient or their legal sales representative consultant has been informed of the risks and benefits of -- and alternatives to -- treatment through a remote evaluation and consents to proceed with the evaluation remotely. CC: cough History of Present Illness Joan Foley is a 44 year old female who presents symptoms of cough for the past 2 days Symptoms include: Positive for Cough, Nasal congestion, and Fatigue, Negative for Fever, Chills/Sweats, Hemoptysis, SOB, ALVAREZ, Wheezing, Nasal congestion, PND, Ear pain, Ear pressure, Nausea, Emesis, and Diarrhea, Oral intake: Normal appetite Recent rapid at-home COVID test completed: Yes Sick contacts: yes Recent travel: no /Lactating: : No: Lactating: No OTC meds/remedies that patient has tried: Dayquil, proair, motrin and tessalon . PAST MEDICAL HISTORY Diagnosis Date Abdominal pain Anemia Dyspepsia Endometriosis Fatty liver Hypertension IBS (irritable bowel syndrome) Liver mass Post-cholecystectomy syndrome Renal disorder MASS DISCOVERED 12/2018 RUQ pain 06/10/14 Vitamin D deficiency PAST SURGICAL HISTORY Procedure Laterality Date COLONOSCOPY 03/15/2022 COLONOSCOPY W/BIOPSY 2013 CYST/MOLE REMOVAL Bilateral Left wrist, right hand EGD 03/15/2022 EGD DILATION ENDOSCOPY PROC 2013 bxs LAPS SURG CHOLECYSTECTOMY W/CHOLANGIOGRAPHY 04/24/2014 Normal [facility] LIVER SURGERY HX 10/2018 ABLATION FOR MASS PAST SURGICAL HISTORY OF appendectomy PAST SURGICAL HISTORY OF dental procedures PAST SURGICAL HISTORY OF diagnostic laparoscopy PAST SURGICAL HISTORY OF Carpal tunnel release, right PAST SURGICAL HISTORY OF as a child removed a piece of lead from skull PAST SURGICAL HISTORY OF 06/2023 Left arthroscopic knee surgery TOTAL ABDOMINAL HYSTERECT W/WO RMVL TUBE OVARY 2004 Hysterectomy, AMANDA FAMILY HISTORY Adopted: Yes Problem Relation Age of Onset other (adopted) Other Social History Tobacco Use Smoking status: Every Day Current packs/day: 0.50 Average packs/day: 0.5 packs/day for 11.0 years (5.5 ttl pk-yrs) Types: Cigarettes Smokeless tobacco: Never Tobacco comments: quit in Nov 2020 Vaping Use Vaping status: Never Used Substance Use Topics Alcohol use: Yes Comment: occ Drug use: No Current Outpatient Medications Medication Sig albuterol HFA (VENTOLIN HFA) 90 mcg/actuation inhaler Inhale 2 Puffs as instructed every 4 hours as needed for wheezing/shortness of breath. benzonatate (TESSALON PERLE) 100 mg capsule Take 2 capsules by mouth three times a day as needed. ondansetron orally disintegrating (ZOFRAN ODT) 4 mg disintegrating tablet Take 1 tab every 8 hours as needed for nausea ubrogepant (UBRELVY) 100 mg tablet Take 1 tablet by mouth as needed (severe headache.). Repeat in 2 hours if needed. nebivolol (BYSTOLIC) 2.5 mg tablet Take 1 tablet by mouth once daily. ibuprofen (MOTRIN) 800 mg tablet Take 1 tablet by mouth every 8 hours as needed for pain. Take with food. OLANZapine (ZYPREXA) 10 mg tablet take 1/2 to 1 tablet by mouth at bedtime for 30 days gabapentin (NEURONTIN) 300 mg capsule Take 1 capsule by mouth three times daily. baclofen (LIORESAL) 5 mg tablet take 1 TO 2 tablet by mouth twice a day if needed for headache metoprolol tartrate, short acting, (LOPRESSOR) 25 mg tablet Take 1 tablet by mouth once daily. As directed No current facility-administered medications for this visit. ALLERGIES Allergen Reactions Penicillins Hives, Anaphylaxis, Shortness of Breath Chantix [Vareniclin* Other: See Comments Mood changes (irritability), flu like symptoms, body aching Contrast Dye [Iodin* Hives, Swelling Demerol [Meperidine* Other: See Comments Nausea Latex Other: See Comments my skin starts pealing off Morphine Hives, Itching Propoxyphene Intolerance Video Exam (Examination performed via Video enabled technology) General appearance: Alert, oriented, pleasant, in NAD: Yes Ill appearing: No Lethargic appearing: No Eyes: Sclera clear: Yes Conjunctiva without erythema: Yes Ears: Tragus / outer ear tenderness by self palpation: No Oropharynx: moist mucus membranes Frontal sinus tenderness by self palpation: No Maxillary sinus tenderness by self palpation: No Tender cervical adenopathy by self palpation: Yes Respiratory distress: No Coughing noted: No Audible wheezing noted: No ASSESSMENT/PLAN: 1. Acute cough - ICD9: 786.2, ICD10: R05.1 - Tessalon as needed - Supportive care: fluids, rest ]- Follow up in person if symptoms worsen or persist - BENZONATATE 100 MG CAPSULE -Tylenol (generic acetaminophen) 500 mg-2 tabs every 8 hrs. as needed for fever and aches -Sudafed (generic is fine), behind the counter, 2x30 mg tabs twice daily as needed for congestion -Mucinex (generic is fine) 1200 mg twice daily to help with cough and to thin out mucus -http://www.choosingwisely.org/pat ient-resources/antibiotics/. This link shares information about when antibiotics may help and when they may not. - Red flags discussed for need for in person care - All questions answered Oumou Valentine APRN.ECOMMERCE MANAGER documented in this encounter [facility] 09-25-2024 Note HNO ID: [id number] Author: PERRY BALLARD PA-C Service: ? Author Type: Physician [employer]er [employer] Type: Progress Notes Filed: 09/25/2024 15:05 Note Text: This note was created using COADE. Subjective Joan Foley is a 44 year old female. HPI Presents with a chief complaint of cough, headache, fatigue nausea over the past month. She did take a Z-Laverne a couple of weeks ago possible walking pneumonia. Did not have a chest x-ray at that time. She thought she was feeling a little better with that but cough never really completely went away. The past day seems to have worsened. No fever. She is a smoker. No history of asthma. Chest is sore with coughing. Review of Systems Constitutional: Positive for fatigue. Negative for fever. HENT: Positive for congestion. Negative for ear pain, sinus pressure and sinus pain. Respiratory: Positive for cough. Cardiovascular: Positive for chest pain (with cough). Gastrointestinal: Positive for diarrhea and nausea. Negative for vomiting. Genitourinary: Negative. Musculoskeletal: Negative. All other systems reviewed and are negative. PAST MEDICAL HISTORY Diagnosis Date Abdominal pain Anemia Dyspepsia Endometriosis Fatty liver Hypertension IBS (irritable bowel syndrome) Liver mass Post-cholecystectomy syndrome Renal disorder MASS DISCOVERED 12/2018 RUQ pain 06/10/14 Vitamin D deficiency Current Outpatient Medications Medication Sig Dispense Refill ubrogepant (UBRELVY) 100 mg tablet Take 1 tablet by mouth as needed (severe headache.). Repeat in 2 hours if needed. 16 tablet 4 ibuprofen (MOTRIN) 800 mg tablet Take 1 tablet by mouth every 8 hours as needed for pain. Take with food. 30 tablet 1 predniSONE (DELTASONE) 20 mg tablet Take 2 tablets by mouth once daily for 5 days. 10 tablet 0 albuterol HFA (VENTOLIN HFA) 90 mcg/actuation inhaler Inhale 2 Puffs as instructed every 4 hours as needed for wheezing/shortness of breath. 1 Each 0 benzonatate (TESSALON PERLE) 100 mg capsule Take 2 capsules by mouth three times a day as needed. 30 capsule 0 ondansetron orally disintegrating (ZOFRAN ODT) 4 mg disintegrating tablet Take 1 tab every 8 hours as needed for nausea 30 tablet 3 nebivolol (BYSTOLIC) 2.5 mg tablet Take 1 tablet by mouth once daily. 30 tablet 11 OLANZapine (ZYPREXA) 10 mg tablet take 1/2 to 1 tablet by mouth at bedtime for 30 days 30 tablet 0 gabapentin (NEURONTIN) 300 mg capsule Take 1 capsule by mouth three times daily. 90 capsule 5 baclofen (LIORESAL) 5 mg tablet take 1 TO 2 tablet by mouth twice a day if needed for headache 25 tablet 3 metoprolol tartrate, short acting, (LOPRESSOR) 25 mg tablet Take 1 tablet by mouth once daily. As directed 30 tablet 11 No current facility-administered medications for this visit. PAST SURGICAL HISTORY Procedure Laterality Date COLONOSCOPY 03/15/2022 COLONOSCOPY W/BIOPSY 2013 CYST/MOLE REMOVAL Bilateral Left wrist, right hand EGD 03/15/2022 EGD DILATION ENDOSCOPY PROC 2013 bxs LAPS SURG CHOLECYSTECTOMY W/CHOLANGIOGRAPHY 04/24/2014 Normal [facility] LIVER SURGERY HX 10/2018 ABLATION FOR MASS PAST SURGICAL HISTORY OF appendectomy PAST SURGICAL HISTORY OF dental procedures PAST SURGICAL HISTORY OF diagnostic laparoscopy PAST SURGICAL HISTORY OF Carpal tunnel release, right PAST SURGICAL HISTORY OF as a child removed a piece of lead from skull PAST SURGICAL HISTORY OF 06/2023 Left arthroscopic knee surgery TOTAL ABDOMINAL HYSTERECT W/WO RMVL TUBE OVARY 2004 Hysterectomy, AMANDA FAMILY HISTORY Adopted: Yes Problem Relation Age of Onset other (adopted) Other Social History Tobacco Use Smoking status: Every Day Current packs/day: 0.50 Average packs/day: 0.5 packs/day for 11.0 years (5.5 ttl pk-yrs) Types: Cigarettes Smokeless tobacco: Never Tobacco comments: quit in Nov 2020 Vaping Use Vaping status: Never Used Substance Use Topics Alcohol use: Yes Comment: occ Drug use: No Objective BP 112/76 Pulse 96 Temp 37 ?C (98.6 ?F) (Tympanic) Resp 18 Wt 71.5 kg (157 lb 10.1 oz) SpO2 98% BMI 27.06 kg/m? Physical Exam Vitals reviewed. Constitutional: Appearance: Normal appearance. HENT: Head: Normocephalic and atraumatic. Right Ear: Tympanic membrane, ear canal and external ear normal. Left Ear: Tympanic membrane, ear canal and external ear normal. Nose: Nose normal. Mouth/Throat: Mouth: Mucous membranes are moist. Pharynx: Oropharynx is clear. Cardiovascular: Rate and Rhythm: Normal rate and regular rhythm. Heart sounds: Normal heart sounds. Pulmonary: Effort: Pulmonary effort is normal. Breath sounds: Normal breath sounds. Comments: Harsh cough noted Musculoskeletal: Cervical back: Neck supple. Lymphadenopathy: Cervical: No cervical adenopathy. Skin: General: Skin is warm and dry. Neurological: Mental Status: She is alert. Assessment and Plan ASSESSMENT/PLAN: 1. Bronchitis (more content not included)... [facility] 09-25-2024 History of Present illness Narrative This note was created using COADE. Subjective Joan Foley is a 44 year old female. HPI Presents with a chief complaint of cough, headache, fatigue nausea over the past month. She did take a Z-Laverne a couple of weeks ago possible walking pneumonia. Did not have a chest x-ray at that time. She thought she was feeling a little better with that but cough never really completely went away. The past day seems to have worsened. No fever. She is a smoker. No history of asthma. Chest is sore with coughing. Review of Systems Constitutional: Positive for fatigue. Negative for fever. HENT: Positive for congestion. Negative for ear pain, sinus pressure and sinus pain. Respiratory: Positive for cough. Cardiovascular: Positive for chest pain (with cough). Gastrointestinal: Positive for diarrhea and nausea. Negative for vomiting. Genitourinary: Negative. Musculoskeletal: Negative. All other systems reviewed and are negative. PAST MEDICAL HISTORY Diagnosis Date Abdominal pain Anemia Dyspepsia Endometriosis Fatty liver Hypertension IBS (irritable bowel syndrome) Liver mass Post-cholecystectomy syndrome Renal disorder MASS DISCOVERED 12/2018 RUQ pain 06/10/14 Vitamin D deficiency Current Outpatient Medications Medication Sig Dispense Refill ubrogepant (UBRELVY) 100 mg tablet Take 1 tablet by mouth as needed (severe headache.). Repeat in 2 hours if needed. 16 tablet 4 ibuprofen (MOTRIN) 800 mg tablet Take 1 tablet by mouth every 8 hours as needed for pain. Take with food. 30 tablet 1 predniSONE (DELTASONE) 20 mg tablet Take 2 tablets by mouth once daily for 5 days. 10 tablet 0 albuterol HFA (VENTOLIN HFA) 90 mcg/actuation inhaler Inhale 2 Puffs as instructed every 4 hours as needed for wheezing/shortness of breath. 1 Each 0 benzonatate (TESSALON PERLE) 100 mg capsule Take 2 capsules by mouth three times a day as needed. 30 capsule 0 ondansetron orally disintegrating (ZOFRAN ODT) 4 mg disintegrating tablet Take 1 tab every 8 hours as needed for nausea 30 tablet 3 nebivolol (BYSTOLIC) 2.5 mg tablet Take 1 tablet by mouth once daily. 30 tablet 11 OLANZapine (ZYPREXA) 10 mg tablet take 1/2 to 1 tablet by mouth at bedtime for 30 days 30 tablet 0 gabapentin (NEURONTIN) 300 mg capsule Take 1 capsule by mouth three times daily. 90 capsule 5 baclofen (LIORESAL) 5 mg tablet take 1 TO 2 tablet by mouth twice a day if needed for headache 25 tablet 3 metoprolol tartrate, short acting, (LOPRESSOR) 25 mg tablet Take 1 tablet by mouth once daily. As directed 30 tablet 11 No current facility-administered medications for this visit. PAST SURGICAL HISTORY Procedure Laterality Date COLONOSCOPY 03/15/2022 COLONOSCOPY W/BIOPSY 2013 CYST/MOLE REMOVAL Bilateral Left wrist, right hand EGD 03/15/2022 EGD DILATION ENDOSCOPY PROC 2013 bxs LAPS SURG CHOLECYSTECTOMY W/CHOLANGIOGRAPHY 04/24/2014 Normal [facility] LIVER SURGERY HX 10/2018 ABLATION FOR MASS PAST SURGICAL HISTORY OF appendectomy PAST SURGICAL HISTORY OF dental procedures PAST SURGICAL HISTORY OF diagnostic laparoscopy PAST SURGICAL HISTORY OF Carpal tunnel release, right PAST SURGICAL HISTORY OF as a child removed a piece of lead from skull PAST SURGICAL HISTORY OF 06/2023 Left arthroscopic knee surgery TOTAL ABDOMINAL HYSTERECT W/WO RMVL TUBE OVARY 2004 Hysterectomy, AMANDA FAMILY HISTORY Adopted: Yes Problem Relation Age of Onset other (adopted) Other Social History Tobacco Use Smoking status: Every Day Current packs/day: 0.50 Average packs/day: 0.5 packs/day for 11.0 years (5.5 ttl pk-yrs) Types: Cigarettes Smokeless tobacco: Never Tobacco comments: quit in Nov 2020 Vaping Use Vaping status: Never Used Substance Use Topics Alcohol use: Yes Comment: occ Drug use: No Objective BP 112/76 Pulse 96 Temp 37 C (98.6 F) (Tympanic) Resp 18 Wt 71.5 kg (157 lb 10.1 oz) SpO2 98% BMI 27.06 kg/m Physical Exam Vitals reviewed. Constitutional: Appearance: Normal appearance. HENT: Head: Normocephalic and atraumatic. Right Ear: Tympanic membrane, ear canal and external ear normal. Left Ear: Tympanic membrane, ear canal and external ear normal. Nose: Nose normal. Mouth/Throat: Mouth: Mucous membranes are moist. Pharynx: Oropharynx is clear. Cardiovascular: Rate and Rhythm: Normal rate and regular rhythm. Heart sounds: Normal heart sounds. Pulmonary: Effort: Pulmonary effort is normal. Breath sounds: Normal breath sounds. Comments: Harsh cough noted Musculoskeletal: Cervical back: Neck supple. Lymphadenopathy: Cervical: No cervical adenopathy. Skin: General: Skin is warm and dry. Neurological: Mental Status: She is alert. Assessment and Plan ASSESSMENT/PLAN: 1. Bronchitis - ICD9: 490, ICD10: J40 Chest x-ray shows no pneumonia. I feel she does have a viral bronchitis. Will treat with prednisone, Tessalon and albuterol inhaler. Discussed if not improving to follow-up with PCP. Patient agreeable with plan. - XR CHEST 2V FRONTAL/LAT Perry Ballard PA-C documented in this encounter [facility] 09-25-2024 History of Present illness Narrative Radiology Service Progress Note PATIENT NAME: Joan Foley DATE OF SERVICE: September 25, 2024 TIME: 1:55 PM PATIENT IDENTITY VERIFICATION COMPLETED USING TWO (2) IDENTIFIERS: Name and Date of confirmed by patient verbally. FALL SCREENING: Has the patient had 2 falls in the last year or 1 fall with injury or currently using an Ambulatory Assistive Device (Walker, Cane, Wheelchair, Crutches, etc.)? No PATIENT GENDER DATA: Female. status: : No status: NO. PATIENT RELEVANT IMPLANT DATA REVIEWED: Yes PATIENT PRESENTS WITH AN IMPLANTABLE OR ATTACHED LEARNING AND DEVELOPMENT ADMINISTRATOR: No RADIOLOGY DEPARTMENT: General X-ray: Exam(s) Completed: Chest X-Ray PERIPHERAL IV DATA: Not applicable SIGNED BY: RT Breonna(Seble) September 25, 2024 1:55 PM documented in this encounter [facility] 09-25-2024 Note HNO ID: [id number] Author: MIRTA ENGLAND RT(R) Service: ? Author Type: Needle [employer] Type: Progress Notes Filed: 09/25/2024 14:01 Note Text: Radiology Service Progress Note PATIENT NAME: Joan Foley DATE OF SERVICE: September 25, 2024 TIME: 1:55 PM PATIENT IDENTITY VERIFICATION COMPLETED USING TWO (2) IDENTIFIERS: Name and Date of confirmed by patient verbally. FALL SCREENING: Has the patient had 2 falls in the last year or 1 fall with injury or currently using an Ambulatory Assistive Device (Walker, Cane, Wheelchair, Crutches, etc.)? No PATIENT GENDER DATA: Female. status: : No status: NO. PATIENT RELEVANT IMPLANT DATA REVIEWED: Yes PATIENT PRESENTS WITH AN IMPLANTABLE OR ATTACHED LEARNING AND DEVELOPMENT ADMINISTRATOR: No RADIOLOGY DEPARTMENT: General X-ray: Exam(s) Completed: Chest X-Ray PERIPHERAL IV DATA: Not applicable SIGNED BY: MICHI Ravi) September 25, 2024 1:55 PM [facility] 09-25-2024 Note HNO ID: [id number] Author: CHINMAY BAXTER PA-C Service: ? Author Type: Physician [employer] Type: Progress Notes Filed: 09/25/2024 11:29 Note Text: Telemedicine Visit - Distance Health Virtual Visit Note Patient seen on HashTip Video Visit platform. Location of patient: [place] I have communicated my name and active licensure. The patient's identity and physical location were verified at the time of this visit. Either the patient or their legal sales representative consultant has been informed of the risks and benefits of -- and alternatives to -- treatment through a remote evaluation and consents to proceed with the evaluation remotely. CC: History of Present Illness Joan Foley is a 44 year old female who presents for the past 1 month with symptoms that are:gradually worsening. Symptoms include: Positive for Cough, Headache, Fatigue, Nausea, and Diarrhea, Negative for Emesis Recent rapid at-home COVID test completed: No OTC meds/remedies that patient has tried: tried azithromycin pack felt better but never follow recovered. . Advised pt to be seen today in person at [facility]. Should consider CXR, viral panel testing, and needs auscultation of lungs. No charge Pt verbalized understanding and is agreeable to plan. Chinmay Baxter PA-C [facility] 09-25-2024 History of Present illness Narrative Telemedicine Visit - Distance Health Virtual Visit Note Patient seen on HashTip Video Visit platform. Location of patient: [place] I have communicated my name and active licensure. The patient's identity and physical location were verified at the time of this visit. Either the patient or their legal sales representative consultant has been informed of the risks and benefits of -- and alternatives to -- treatment through a remote evaluation and consents to proceed with the evaluation remotely. CC: History of Present Illness Joan Foley is a 44 year old female who presents for the past 1 month with symptoms that are:gradually worsening. Symptoms include: Positive for Cough, Headache, Fatigue, Nausea, and Diarrhea, Negative for Emesis Recent rapid at-home COVID test completed: No OTC meds/remedies that patient has tried: tried azithromycin pack felt better but never follow recovered. . Advised pt to be seen today in person at [facility]. Should consider CXR, viral panel testing, and needs auscultation of lungs. No charge Pt verbalized understanding and is agreeable to plan. Chinmay Baxter PA-C documented in this encounter [facility] 02-14-2024 Telephone encounter Note Attempted to Initiate PA for Renewal of Ubrelvy. Patients last visit was 03/17/2023 with no renewal documentation. Patient needs a follow up visit for Renewal documentation before a PA can be initiated. Estee Barton MA [facility] 02-14-2024 Miscellaneous Notes Attempted to Initiate PA for Renewal of Ubrelvy. Patients last visit was 03/17/2023 with no renewal documentation. Patient needs a follow up visit for Renewal documentation before a PA can be initiated. Estee Barton MA documented in this encounter [facility] 01-02-2024 Instructions Jose Hayes MD - 01/02/2024 3:53 PM EDT We are trying you on Bystolic 2.5 mg once per day documented in this encounter [facility] 01-02-2024 History of Present illness Narrative Images from the original note were not included. [facility] SE[facility]AL CARDIOLOGY Cardiology ([facility]) [address] [facility] [id number] OUTPATIENT VISIT DATE 01/02/2024 PRIMARY CARE PHYSICIAN: [place] [address] HISTORY OF PRESENT ILLNESS: Ms. Foley is a 43 year old woman with a history of hypertension, migraine headaches, palpitations, tachycardia and a longstanding history of chest pain. She is undergone extensive evaluation for chest pain in the past. Including beta-blockers and diltiazem. Increased palpitations consistent with PVCs. They typically occur in the evening hours. She has had occasional episodes of chest pain but they are intermittent not necessarily associated with exertion. She has had increased heart rates as high as 160 beats a minute at rest. They are usually associated with periods of dehydration. She has not had symptoms concerning for congestive heart failure including PND, orthopnea, or lower extremity edema. PAST MEDICAL HISTORY Diagnosis Date Abdominal pain Anemia Dyspepsia Endometriosis Fatty liver Hypertension IBS (irritable bowel syndrome) Liver mass Post-cholecystectomy syndrome Renal disorder MASS DISCOVERED 12/2018 RUQ pain 06/10/14 Vitamin D deficiency PAST SURGICAL HISTORY Procedure Laterality Date COLONOSCOPY 03/15/2022 COLONOSCOPY W/BIOPSY 2013 CYST/MOLE REMOVAL Bilateral Left wrist, right hand EGD 03/15/2022 EGD DILATION ENDOSCOPY PROC 2013 bxs LAPS SURG CHOLECYSTECTOMY W/CHOLANGIOGRAPHY 04/24/2014 Normal [facility] LIVER SURGERY HX 10/2018 ABLATION FOR MASS PAST SURGICAL HISTORY OF appendectomy PAST SURGICAL HISTORY OF dental procedures PAST SURGICAL HISTORY OF diagnostic laparoscopy PAST SURGICAL HISTORY OF Carpal tunnel release, right PAST SURGICAL HISTORY OF as a child removed a piece of lead from skull PAST SURGICAL HISTORY OF 06/2023 Left arthroscopic knee surgery TOTAL ABDOMINAL HYSTERECT W/WO RMVL TUBE OVARY 2004 Hysterectomy, AMANDA SOCIAL HISTORY Social History Tobacco Use Smoking status: Every Day Packs/day: 0.50 Years: 11.00 Additional pack years: 0.00 Total pack years: 5.50 Types: Cigarettes Smokeless tobacco: Never Tobacco comments: quit in Nov 2020 Vaping Use Vaping Use: Never used Substance Use Topics Alcohol use: Yes Comment: occ Drug use: No FAMILY HISTORY Adopted: Yes Problem Relation Age of Onset other (adopted) Other ALLERGIES: ALLERGIES Allergen Reactions Penicillins Hives, Anaphylaxis, Shortness of Breath Chantix [Vareniclin* Other: See Comments Mood changes (irritability), flu like symptoms, body aching Contrast Dye [Iodin* Hives, Swelling Demerol [Meperidine* Other: See Comments Nausea Latex Other: See Comments my skin starts pealing off Morphine Hives, Itching Propoxyphene Intolerance MEDICATIONS: ondansetron orally disintegrating (ZOFRAN ODT) 4 mg disintegrating tablet Take 1 tab every 8 hours as needed for nausea ubrogepant (UBRELVY) 100 mg tablet Take 1 tablet by mouth as needed (severe headache.). Repeat in 2 hours if needed. folic acid 1 mg tablet Take 1 tablet by mouth once daily. ibuprofen (MOTRIN) 800 mg tablet Take 1 tablet by mouth every 8 hours as needed for pain. Take with food. metoprolol tartrate, short acting, (LOPRESSOR) 25 mg tablet Take 1 tablet by mouth once daily. As directed OLANZapine (ZYPREXA) 10 mg tablet take 1/2 to 1 tablet by mouth at bedtime for 30 days gabapentin (NEURONTIN) 300 mg capsule Take 1 capsule by mouth three times daily. baclofen (LIORESAL) 5 mg tablet take 1 TO 2 tablet by mouth twice a day if needed for headache REVIEW OF SYSTEMS: Review of Systems Constitutional: Negative for chills, fever, malaise/fatigue and weight loss. HENT: Negative for hearing loss and sore throat. Eyes: Negative for blurred vision and double vision. Respiratory: Negative. Cardiovascular: Positive for palpitations. Genitourinary: Negative for dysuria, frequency, hematuria and urgency. Musculoskeletal: Negative. Skin: Negative. Neurological: Negative for dizziness, seizures, loss of consciousness, weakness and headaches. Endo/Heme/Allergies: Negative for environmental allergies. Does not bruise/bleed easily. Psychiatric/Behavioral: Negative for depression. PHYSICAL EXAMINATION: BP 151/112 Pulse 104 Wt 80.3 kg (177 lb) SpO2 97% BMI 30.38 kg/m General: Pleasant woman sitting comfortable no apparent distress. She is alert and oriented x3 HEENT: Carotid upstrokes brisk without bruits there is no JVD appreciated. Thyroid is palpable not large. There is no cervical lymphadenopathy. Pulmonary: Lungs are clear no rales wheezes rhonchi Cardiovascular: Normal S1-S2 heart rates are at the upper limits of normal. No murmurs rubs appreciated. Extremities: Warm well perfused no cyanosis clubbing or edema 2+ distal pulses. CARDIOVASCULAR MEDICINE TESTING: Echocardiogram 08/15/2020: - The left ventricle is small. Left ventricular systolic function is normal. EF = 65 5% (2D 4-ch.) Normal left ventricular diastolic function. - The right ventricle is normal in size. Right ventricular systolic function is normal. - There are no significant valvular abnormalities. - The patient has not had a prior CC echocardiographic exam for comparison. Event monitor 06/20/2020-07/03/2020: Minimum heart rate 50 bpm maximum heart rate 197 bpm with an average of 98 bpm. Predominant underlying rhythm was sinus rhythm 1 run of ventricular tachycardia occurring lasting 6 beats with a maximal heart rate 197 bpm Isolated SVEs were rare (less than 1%) Lexiscan Cardiolite stress test 04/01/2020 Rest and stress nuclear imaging demonstrate uniform uptake. No evidence of myocardial ischemia or scar Gated study reports in the left ventricular ejection fraction of 69% Cardiac catheterization 06/02/2017: Angiographically normal coronary arteries right coronary dominant system. Echocardiogram 05/12/2017: Left ventricular systolic function is normal. The estimated ejection fraction is 60%. Mild 1+ mitral valve insufficiency Mild tricuspid valve insufficiency Right ventricular systolic pressure estimated to be 26 mmHg IMPRESSION: Ms. Foley is a 42 year old woman with a history of atypical chest pain possibly related to vasospastic or microvascular angina, hypertension, and prior smoking history who presents for follow-up of palpitations. PLAN AND RECOMMENDATIONS: 1. 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 Will attempt a trial of Bystolic 2.5 mg daily - NEBIVOLOL 2.5 MG TABLET 2. Nonsustained ventricular tachycardia (HCC) - ICD9: 427.1, ICD10: I47.29 - NEBIVOLOL 2.5 MG TABLET 3. Primary hypertension - ICD9: 401.9, ICD10: I10 Elevated during the office visit. I have asked her to keep a record of her blood pressure at home for review at next office visit Jose Hayes MD documented in this encounter [facility] 01-02-2024 Miscellaneous Notes Physician: Luis Call from patient requesting refill. Please E-Scribe Last OV: 03/17/2023 with Luis Future OV: Not Scheduled. Requested Prescriptions Pending Prescriptions Disp Refills ubrogepant (UBRELVY) 100 mg tablet 16 tablet 4 Sig: Take 1 tablet by mouth as needed (severe headache.). Repeat in 2 hours if needed. [facility] From: Joan Foley To: Office of Aide Haynes DO Sent: 12/29/2023 9:59 PM EDT Subject: Medication Renewal Request Refills have been requested for the following medications: ubrogepant (UBRELVY) 100 mg tablet [Aide Haynes DO] Preferred pharmacy: [id number] [place] [address] - [address] [facility] [phone] [id number] Delivery method: Pickup Medication renewals requ ested in this message routed separately: ondansetron orally disintegrating (ZOFRAN ODT) 4 mg disintegrating tablet [Amos Smith] folic acid 1 mg tablet [Bee Fairchild] documented in this encounter [facility] 01-02-2024 Miscellaneous Notes Physician: Luis Call from patient requesting refill. Please E-Scribe Last office visit 03/17/23 with Luis virtual Next office visit N/A Requested Prescriptions Pending Prescriptions Disp Refills ondansetron orally disintegrating (ZOFRAN ODT) 4 mg disintegrating tablet 30 tablet 3 Sig: Take 1 tab every 8 hours as needed for nausea Pharmacy Name: [facility] documented in this encounter [facility] 12-30-2023 Miscellaneous Notes Folic acid was renewed. Patient will need a follow-up appointment at least in April. Patient MyChart message requesting the following refill Refill(s) Requested: Requested Prescriptions Pending Prescriptions Disp Refills folic acid 1 mg tablet 30 tablet 2 Sig: Take 1 tablet by mouth once daily. ALLERGIES Allergen Reactions Penicillins Hives, Anaphylaxis, Shortness of Breath Chantix [Vareniclin* Other: See Comments Mood changes (irritability), flu like symptoms, body aching Contrast Dye [Iodin* Hives, Swelling Demerol [Meperidine* Other: See Comments Nausea Latex Other: See Comments my skin starts pealing off Morphine Hives, Itching Propoxyphene Intolerance (home) [phone] (cell) Last Office Visit Date: 04/18/2023 Last Distance Health Visit: Visit date not found Future Appointment: Visit date not found The patients preferred pharmacy has been captured for this encounter? yes Request is for script(s) to be escript to pharmacy. Lindsey Lentz LPN documented in this encounter [facility] 04-25-2023 Miscellaneous Notes Noted. Will forward to Lindsay Dean as Dr. Hayes is out of office. Arleen Aguilar, RN Patient called. Verified name and date of . States yesterday she was outside with family and was having rapid heart rate, nauseated, dizzy, blood pressure 165/90 which is high for her. She thought she was dehydrated and drank a lot of water. Took her medications and went to bed. She woke up in middle of night with pain in left shoulder, nausea today, having some cold sweats, squeezing feeling in chest, and dizziness. Heart rate 100 while at rest, 140/85 blood pressure. Advised to go to Emergency Room- patient states she figured as much but wanted to inform Dr. Hayes. Madai Levy LPN documented in this encounter [facility] 04-23-2023 Miscellaneous Notes Phoned patient and left detailed message with results, notes from Bee Fairchild PERFORATING MACHINE OPERATOR and rx sent to pharmacy. Can please let patient know that I received her lab results. Her white count was up a little bit. Can we please have her return early in the week to have this rechecked. The order is in. Her folate was also a little low. Lets have her start a daily folate supplement -- I sent this to the pharmacy. documented in this encounter [facility] 04-18-2023 History of Present illness Narrative This is a 43 year old female who presents today with: Patient presents with: Acute Visit: History of SVT- having dizziness when standing, swelling in bilateral lower feet/legs/hands x2 weeks HISTORY OF PRESENT ILLNESS: Joan Foley is a 43 year old female. Patient presents with: Acute Visit: History of SVT- having dizziness when standing, swelling in bilateral lower feet/legs/hands x2 weeks Pt presents today with complaints of orthostatic dizziness and pulsatile tinnitus. Started about 2 weeks ago. Also in that time, she has had more issues with hands and feet swelling. Refers that the swelling does improve overnight when she sleeps. Trying to eat healthier. Had lost weight, but had gained. Refers had never been a big salt person. Symptoms are hit or miss. Some days every time she gets up and sometimes 1-2 times daily. No pain. Just really bad dizziness and wooshing heart beat in ear. Refers right side. Sometimes brief and sometimes will last 20-30 minutes. No palpitations. Refers will get nauseated and sweaty. Drinking a lot of water. Hx of hysterectomy -- no periods. Has been having diarrhea. Has been 4-5 times daily. Started a few weeks ago. Has had in the past and had negative work-up. Symptoms resolved until a couple of weeks ago. No recent antibiotic use. Denies possible food contamination. PAST MEDICAL HISTORY: PAST MEDICAL HISTORY Diagnosis Date Abdominal pain Anemia Dyspepsia Endometriosis Fatty liver Hypertension IBS (irritable bowel syndrome) Liver mass Post-cholecystectomy syndrome Renal disorder MASS DISCOVERED 12/2018 RUQ pain 06/10/14 Vitamin D deficiency PAST SURGICAL HISTORY Procedure Laterality Date COLONOSCOPY 03/15/2022 COLONOSCOPY W/BIOPSY 2013 CYST/MOLE REMOVAL Bilateral Left wrist, right hand EGD 03/15/2022 EGD DILATION ENDOSCOPY PROC 2013 bxs LAPS SURG CHOLECYSTECTOMY W/CHOLANGIOGRAPHY 04/24/2014 Normal [facility] LIVER SURGERY HX 10/2018 ABLATION FOR MASS PAST SURGICAL HISTORY OF appendectomy PAST SURGICAL HISTORY OF dental procedures PAST SURGICAL HISTORY OF diagnostic laparoscopy PAST SURGICAL HISTORY OF Carpal tunnel release, right PAST SURGICAL HISTORY OF as a child removed a piece of lead from skull TOTAL ABDOMINAL HYSTERECT W/WO RMVL TUBE OVARY 2003 Hysterectomy, AMANDA ALLERGIES Penicillins, Chantix [Varenicline], Contrast Dye [Iodine], Demerol [Meperidine (Pf)], Latex, Morphine, and Propoxyphene MEDICATIONS Current Outpatient Medications Medication Sig ibuprofen (MOTRIN) 800 mg tablet Take 1 tablet by mouth every 8 hours as needed for pain. Take with food. OLANZapine (ZYPREXA) 10 mg tablet take 1/2 to 1 tablet by mouth at bedtime for 30 days gabapentin (NEURONTIN) 300 mg capsule Take 1 capsule by mouth three times daily. ondansetron orally disintegrating (ZOFRAN ODT) 4 mg disintegrating tablet Take 1 tab every 8 hours as needed for nausea baclofen (LIORESAL) 5 mg tablet take 1 TO 2 tablet by mouth twice a day if needed for headache ubrogepant (UBRELVY) 100 mg tablet Take 1 tablet by mouth as needed (severe headache.). Repeat in 2 hours if needed. verapamil SR (CALAN SR) 120 mg CR tablet Take 1 tablet by mouth daily at bedtime. metoprolol tartrate, short acting, (LOPRESSOR) 25 mg tablet Take 1 tablet by mouth once daily. As directed No current facility-administered medications for this visit. FAMILY HISTORY Adopted: Yes Problem Relation Age of Onset other (adopted) Other Social History Tobacco Use Smoking status: Former Packs/day: 0.50 Years: 11.00 Total pack years: 5.50 Types: Cigarettes Smokeless tobacco: Never Tobacco comments: quit in Nov 2020 Vaping Use Vaping Use: Never used Substance Use Topics Alcohol use: Yes Comment: occ Drug use: No EXAM: BP 146/88 Pulse 99 Resp 16 SpO2 95% PHYSICAL EXAM: General Appearance: Well appearing, alert, in no acute distress, well-hydrated, well nourished.. Skin: Skin color, texture, turgor normal, no suspicious rashes or lesions. Head: Normocephalic, no masses, lesions, tenderness or abnormalities. Eyes: Anicteric sclera. Pupils are equally round and reactive to light. Extraocular movements are intact. . Ears: External ears normal, canals clear.Normal TMs bilaterally. Oropharynx: Lips, mucosa, and tongue normal, teeth and gums normal, oropharynx normal. Neck: Supple, no adenopathy; thyroid symmetric, normal size, no bruits. Lungs: Lungs clear to auscultation. No wheezing, rhonchi, rales.. Heart: RRR without murmur, gallop, or rubs. No ectopy. Abdomen: Normal abdominal exam, Abdomen soft, non-tender. Bowel sounds normal. No masses, organomegaly. Extremities: No deformities, edema, skin discoloration, clubbing or cyanosis. Good capillary refill. . Neurologic: Gait normal. ASSESSMENT/PLAN: 1. Postural dizziness - ICD9: 780.4, ICD10: R42 (primary diagnosis) Negative ortho VS per nursing. EKG SR Without ectopy or ST changes. Get labs to r/o anemia. 2. Pulsatile tinnitus - ICD9: 388.30, ICD10: H93.A9 She had recent MRI/MRA of the heat which did not have any abnormal findings. - ECG COMPLETE 3. Diarrhea, unspecified type - ICD9: 787.91, ICD10: R19.7 - CBC + DIFF - BASIC METABOLIC PNL - TSH BLD - T4 FREE/FREE THYROX - MAGNESIUM BLD 4. Elevated liver enzymes - ICD9: 790.5, ICD10: R74.8 Was previously noted to have elevated liver enzymes. Denies ETOH/tylenol use. Will get liver enzymes. - HEPATIC FUNCTION PNL 5. Abnormal RBC - ICD9: 790.09, ICD10: R71.8 - FERRITIN BLD - IRON + TIBC - FOLATE SERUM Discussed treatment plan and patient voices understanding. Patient's questions answered appropriately. Medications and potential side effects were discussed and patient voices understanding. Return to the office as scheduled or as needed for worsening/no improvement. Bee Fairchild APRN.ECOMMERCE MANAGER documented in this encounter [facility] 04-11-2023 History of Present illness Narrative Radiology Service Progress Note PATIENT NAME: Joan Foley DATE OF SERVICE: April 11, 2023 TIME: 12:06 PM PATIENT IDENTITY VERIFICATION COMPLETED USING TWO (2) IDENTIFIERS: Name and Date of confirmed by patient verbally. FALL SCREENING: Has the patient had 2 falls in the last year or 1 fall with injury or currently using an Ambulatory Assistive Device (Walker, Cane, Wheelchair, Crutches, etc.)? No PATIENT GENDER DATA: Female. status: : No status: NO. PATIENT RELEVANT IMPLANT DATA REVIEWED: Yes RADIOLOGY DEPARTMENT: General X-ray: Exam(s) Completed: Lower Extremity X-Ray(s): Knee, AP / Lat / Tunne / Merchant Left and Wt. Bearing PERIPHERAL IV DATA: Not applicable SIGNED BY: RT Belen(R) April 11, 2023 12:06 PM documented in this encounter [facility] 04-11-2023 Instructions Albina Padilla PA-C - 04/11/2023 11:30 AM EDT Sprains of the Ankle, Knee and Wrist What is a sprain? A sprain occurs when a ligament (a band of tissue that connects two or more bones at a joint) is stretched and/or torn. During a sprain, one or more ligaments may be injured. The severity of the sprain depends on the number of ligaments injured and the extent of the injury (whether there is a partial or complete tear). What causes a sprain? A sprain is caused by either direct or indirect trauma that knocks the joint out of position and overstretches, sometimes rupturing the supporting ligaments. Examples of trauma include rolling of the ankle, a fall or a blow to the body. Where do sprains occur? Sprains occur in both the upper and lower parts of the body. However, the three most common sprain sites are the ankle, knee and wrist. Ankle sprain-- typically occurs when the foot turns inward as a person runs, turns or lands on the ankle after a jump. Knee sprain-- typically occurs after a blow to the knee or a fall. Sudden twisting of the knee may result in a sprain. Wrist sprain --typically occurs when one falls and lands on an outstretched hand. Who is at risk for sprains? Both professional and amateur athletes-- as well as the general public--can sustain this type of injury. However, those who have a history of sprains, are overweight and are in poor physical condition have increased risk. What are the signs and symptoms of sprains? Signs and symptoms may vary due to severity of injury. They may include: Pain Swelling Inflammation Bruising Instability Loss of the ability to move and use the joint When should I see a health care provider for a sprain? You have severe pain and cannot put weight on the injured joint. The injured area looks crooked, has lumps and bumps (other than swelling) that you do not see on the uninjured joint. You cannot move the injured joint. There is numbness in any part of the injured area. Redness or red streaks spread out from the injury. You injure an area that has been injured before. You have pain, swelling or redness over a bony part of your foot. You are in doubt about the seriousness of the injury and/or how to care for it. How are sprains treated? Health care providers advise patients to follow the rest, ice, compress and elevation (RICE) method for the first 24 to 48 hours after the injury. Rest?Reduce regular exercises and activities of daily living. Your health care provider may advise you to not put weight on the injured area for 48 hours. You may need to use crutches. Ice?Apply an ice pack to injured area for 20 minutes, four to eight times a day. You can use a cold pack, ice bag or plastic bag filled with ice wrapped in a towel. To avoid tolentino bite and cold injury, do not apply the ice for longer than 20 minutes at a time. Compression?Compression of the injured area my help reduce swelling. Elastic wraps, specialized boots, air casts and splints may be used as compression bandages. Ask your health care provider which would be the most appropriate to use. Also ask how tightly to apply the bandage safely. Elevation?In order to help decrease swelling, keep the injured area elevated on a pillow above the level of your heart. How can I help prevent sprains? To help reduce the risk of sprains: Avoid exercising or playing sports when tired or in pain. Maintain a healthy weight and well- balanced diet to keep muscles strong. Wear shoes that fit properly. Practice safety measures to prevent falls. Do stretching exercises daily. Warm up and stretch before doing any physical activity. References National [place] of Arthritis and Musculoskeletal and Skin Diseases. Questions and Answers about Sprains and Strains Accessed 02/12/2014. [employer]. Sprains and Strains: What's the Difference? Accessed 02/12/2014. R.I.C.E. The general care of your injury includes the following: Resting, Icing, Compressing and Elevating the injured area. Remember this as RICE. REST: Limit the use of the injured body part. ICE: By applying ice to the affected area, swelling and pain can be reduced. Place some ice cubes in a re-sealable (Ziploc) bag and add some water. Put a thin washcloth between the bag and your skin. Apply the ice bag to the are a for at least 20 minutes. Do this at least 4 times per day. Using the ice for longer times and more frequently is OK. NEVER APPLY ICE DIRECTLY TO THE SKIN. COMPRESS: Compression means to apply pressure around the injured area such as with a splint, cast or an josy bandage. Compression decreases swelling and improves comfort. Compression should be tight enough to relieve swelling but not so tight as to decrease circulation. Increasing pain, numbness, tingling, or change in skin color, are all signs of decreased circulation. ELEVATE: Elevate the injured part. For example, elevate your foot by placing it on a chair while sitting, or propping it up on pillows when lying down. documented in this encounter [facility] 04-11-2023 History of Present illness Narrative CC: Patient presents with: Same Day Appointment: left knee pain since Tuesday due to a fall, 04/18, took meloxicam and tylenol and ice elevation HPI Joan Foley is a 43 year old female who presents today for knee pain status post fall on 04/09/23. The pain is acute. Located: lateral joint line. Described as sharp and rated as excruciating Injury: in a fall - slipped on steps and caught herself on the next step and felt an immediate pop like a rubber band snapping Aggravated by: walking and twisting it whatsoever; Pain with extension but worst pain is with weight-bearing Knee popping or clicking with movement? Intermittently like a snapping sound. Knee locking or feel like is giving-out? Yes Does the knee pain wake you up at night:Yes Previous injury: No Previous surgery: No Treatment: ice, elevation, NSAIDs (BC packet- aspirin based and meloxicam), and with no relief of symptoms REVIEW OF SYSTEMS See HPI All other systems negative. PAST MEDICAL HISTORY Diagnosis Date Abdominal pain Anemia Dyspepsia Endometriosis Fatty liver Hypertension IBS (irritable bowel syndrome) Liver mass Post-cholecystectomy syndrome Renal disorder MASS DISCOVERED 12/2018 RUQ pain 06/10/14 Vitamin D deficiency PAST SURGICAL HISTORY Procedure Laterality Date COLONOSCOPY 03/15/2022 COLONOSCOPY W/BIOPSY 2013 CYST/MOLE REMOVAL Bilateral Left wrist, right hand EGD 03/15/2022 EGD DILATION ENDOSCOPY PROC 2013 bxs LAPS SURG CHOLECYSTECTOMY W/CHOLANGIOGRAPHY 04/24/2014 Normal [facility] LIVER SURGERY HX 10/2018 ABLATION FOR MASS PAST SURGICAL HISTORY OF appendectomy PAST SURGICAL HISTORY OF dental procedures PAST SURGICAL HISTORY OF diagnostic laparoscopy PAST SURGICAL HISTORY OF Carpal tunnel release, right PAST SURGICAL HISTORY OF as a child removed a piece of lead from skull TOTAL ABDOMINAL HYSTERECT W/WO RMVL TUBE OVARY 2003 Hysterectomy, AMANDA ALLERGIES Penicillins, Chantix [Varenicline], Contrast Dye [Iodine], Demerol [Meperidine (Pf)], Latex, Morphine, and Propoxyphene MEDICATIONS OLANZapine (ZYPREXA) 10 mg tablet take 1/2 to 1 tablet by mouth at bedtime for 30 days gabapentin (NEURONTIN) 300 mg capsule Take 1 capsule by mouth three times daily. ondansetron orally disintegrating (ZOFRAN ODT) 4 mg disintegrating tablet Take 1 tab every 8 hours as needed for nausea baclofen (LIORESAL) 5 mg tablet take 1 TO 2 tablet by mouth twice a day if needed for headache ubrogepant (UBRELVY) 100 mg tablet Take 1 tablet by mouth as needed (severe headache.). Repeat in 2 hours if needed. verapamil SR (CALAN SR) 120 mg CR tablet Take 1 tablet by mouth daily at bedtime. metoprolol tartrate, short acting, (LOPRESSOR) 25 mg tablet Take 1 tablet by mouth once daily. As directed FAMILY HISTORY Adopted: Yes Problem Relation Age of Onset other (adopted) Other Social History Tobacco Use Smoking status: Former Packs/day: 0.50 Years: 11.00 Pack years: 5.50 Types: Cigarettes Smokeless tobacco: Never Tobacco comments: quit in Nov 2020 Vaping Use Vaping Use: Never used Substance Use Topics Alcohol use: Yes Comment: occ Drug use: No PHYSICAL EXAM There were no vitals taken for this visit. General Appearance: well appearing, in no acute distress, alert Pysch: mood and affect broad and appropriate Skin: Skin color, texture, turgor normal for age; No erythema, ecchymosis, or other color changes Musculoskeletal: Left knee- mildly edematous (lateral jointline) on inspection. Tenderness:lateral joint line: Yes. Flexion:Limitation: No, Pain:No; Extension:Limitation:Yes, Pain:Yes. Laxity: Yes Lower extremities: good distal pulses. Muscle strength- Mildly diminished on left secondary to pain ASSESSMENT/PLAN: 1. Injury of left knee, initial encounter - ICD9: 959.7, ICD10: S89.92XA Suspect mild sprain. Will obtain XR to rule out acute fracture/dislocation/acute bony abnormality. RICE therapy advised. Pain control addressed (prescription strength NSAID sent-see orders). Patient opting out of crutches, as she has a pair she can use at home. INB within 3-4 weeks, will consider referral to ortho +/- MRI of knee. - XR KNEE GENERAL 4V AP BOTH/PA BOTH/LAT/MERC LEFT - IBUPROFEN 800 MG TABLET Prescription instructions reviewed with patient as applicable. Potential red flag symptoms discussed with the patient. Reviewed appropriate action plan to take if red flag symptoms occur. F/u PRN, or sooner if symptoms persist or progress. Patient agreeable to treatment plan. Albina Padilla PA-C Medical Decision Making: Problems: Low: Acute, uncomplicated illness or injury Data: Unique test(s) ordered: 1 Risk: Minimal: Minimal risk from testing/treatment Moderate: Drug management Medical Decision Making Level: 3 - Low documented in this encounter [facility] 04-05-2023 History of Present illness Narrative Radiology Service Progress Note PATIENT NAME: Joan Foley DATE OF SERVICE: April 05, 2023 TIME: 2:14 PM PATIENT IDENTITY VERIFICATION COMPLETED USING TWO (2) IDENTIFIERS: Name and Date of confirmed by patient verbally. FALL SCREENING: Has the patient had 2 falls in the last year or 1 fall with injury or currently using an Ambulatory Assistive Device (Walker, Cane, Wheelchair, Crutches, etc.)? No PATIENT GENDER DATA: Female. status: : No status: NO. PATIENT RELEVANT IMPLANT DATA REVIEWED: Not Applicable RADIOLOGY DEPARTMENT: Mammography PERIPHERAL IV DATA: Not applicable SIGNED BY: Woody Lindsey April 05, 2023 2:14 PM documented in this encounter [facility] 03-15-2023 Miscellaneous Notes Patient has been scheduled for , 03/17/2023 at 1:00pm for vv. Called pt to schedule per providers note and was unable to reach LVM with return call number Please have patient schedule a VV follow up to discuss headaches and treatment plan. VV will need a 45 minute appointment, mine are only in the afternoon. Amos Smith APRN.CNP The following approved medication requests have been transmitted electronically. Requested Prescriptions Signed Prescriptions Disp Refills OLANZapine (ZYPREXA) 10 mg tablet 5 tablet 0 Sig: take 1 tablet by mouth at bedtime for 5 days Authorizing Provider: AMOS SMITH ondansetron orally disintegrating (ZOFRAN ODT) 4 mg disintegrating tablet 30 tablet 3 Sig: Take 1 tab every 8 hours as needed for nausea Authorizing Provider: AMOS SMITH APRN.CNP Physician: Luis Call from patient requesting refill. Please E-Scribe Last office visit 01/21/23 with Luis virtual Next office visit None Scheduled NA Per Patient Since the end of that prescription, the headaches have gotten a lot worse again. Can I have an ongoing prescription for that? It is Olanzapine. Also, my nausea symptom is really getting worse and the metoclopramide is not helping. I have had success in the past with zofran. Can I have a prescription for that? Requested Prescriptions Pending Prescriptions Disp Refills OLANZapine (ZYPREXA) 10 mg tablet 5 tablet 0 ondansetron orally disintegrating (ZOFRAN ODT) 4 mg disintegrating tablet 30 tablet 0 Sig: Take 1 tablet by mouth daily at bedtime. Pharmacy Name: [facility] Carri Reyes documented in this encounter [facility] 02-14-2023 Miscellaneous Notes The following approved medication requests have been transmitted electronically. Requested Prescriptions Signed Prescriptions Disp Refills OLANZapine (ZYPREXA) 10 mg tablet 5 tablet 0 Sig: take 1 tablet by mouth at bedtime for 5 days Authorizing Provider: AMOS SMITH APRN.ECOMMERCE MANAGER Physician: Luis Call from patient requesting refill. Please E-Scribe Last office visit 01/21/23 with Luis virtual Next office visit Not scheduled. Requested Prescriptions Pending Prescriptions Disp Refills OLANZapine (ZYPREXA) 10 mg tablet [Pharmacy Med Name: OLANZAPINE 10 MG TABLET] 5 tablet 0 Sig: take 1 tablet by mouth at bedtime for 5 days Pharmacy Name: [facility] documented in this encounter [facility] 02-11-2023 Miscellaneous Notes Patient notified and number given to schedule. Please let Joan that there is an asymmetry in her right breast and the radiologist would like to take a closer look at it. Please assist her to schedule. Leanna Patel APRN.ECOMMERCE MANAGER documented in this encounter [facility] 02-11-2023 Miscellaneous Notes February 11, 2023 PID: [id number] Joan Foley [address] [place] [address] Dear Ms. Foley, Your recent breast imaging exam on 02/10/2023 showed a possible finding that requires additional imaging studies for a complete evaluation. Most such findings are probably benign (not cancer). If you have a healthcare provider who ordered/prescribed your screening mammogram: Please call [phone] or EXT: [phone] to schedule an appointment for your additional imaging (if you have not already done so). If you DO NOT have a healthcare provider (ie you did not have an order/prescription for your screening mammogram): Please call to schedule an appointment for your additional imaging (if you have not already done so). You must have an order/prescription from your physician when calling to schedule your appointment. If your order/prescription is not electronic, you must bring the hard copy with you on the day of your exam to avoid delays. Your imaging studies and reports are kept on file at [facility] as part of your permanent medical record, and are available for your continuing care. Thank you for allowing us to help in meeting your health care needs. Sincerely, Dr. Merino Interpreting Radiologist [facility] (Additional imaging) documented in this encounter [facility] 02-10-2023 History of Present illness Narrative Radiology Service Progress Note PATIENT NAME: Joan Foley DATE OF SERVICE: February 10, 2023 TIME: 2:55 PM PATIENT IDENTITY VERIFICATION COMPLETED USING TWO (2) IDENTIFIERS: Name and Date of confirmed by patient verbally. FALL SCREENING: Has the patient had 2 falls in the last year or 1 fall with injury or currently using an Ambulatory Assistive Device (Walker, Cane, Wheelchair, Crutches, etc.)? No PATIENT GENDER DATA: Female. status: : No status: NO. PATIENT RELEVANT IMPLANT DATA REVIEWED: Not Applicable RADIOLOGY DEPARTMENT: Mammography PERIPHERAL IV DATA: Not applicable SIGNED BY: Dallas LindseyHLH [employer]LECT[employer] Ryanne February 10, 2023 2:55 PM documented in this encounter [facility] 02-04-2023 Miscellaneous Notes We will get a precert for an Oral Calcitonin Gene-Related Peptide Receptor Antagonist (GEPANT) Ubrogepant for the rescue treatment of episodic migraine. This patient meets AHS criteria for treatment of migraine with an oral small molecule CGRP antagonist GEPANT. The FDA has approved GEPANTS for the treatment of migraine. Specifically, the patient has 30 headaches per month, lasting 4 or more hours/day associated with photophobia, phonophobia, nausea for three or more months. Medication overuse headache has been ruled out.Patient will not use with another GEPANT. The patient has a contraindication thunderclap headache- concern for vasospasm. Anti-Migraine Rizatriptan (Maxalt) Analgesic Butalbital/acetaminophen/caffeine (Fioricet) Patient last seen on 01/21/23. documented in this encounter [facility] 01-28-2023 History of Present illness Narrative Radiology Service Progress Note PATIENT NAME: Joan Foley DATE OF SERVICE: January 28, 2023 TIME: 12:37 PM PATIENT IDENTITY VERIFICATION COMPLETED USING TWO (2) IDENTIFIERS: Name and Date of confirmed by patient verbally. FALL SCREENING: Has the patient had 2 falls in the last year or 1 fall with injury or currently using an Ambulatory Assistive Device (Walker, Cane, Wheelchair, Crutches, etc.)? No PATIENT GENDER DATA: Female. status: : No status: NO. PATIENT RELEVANT IMPLANT DATA REVIEWED: Not Applicable RADIOLOGY DEPARTMENT: MR; Exam(s) Completed: Head: [place] of [place] MRA PERIPHERAL IV DATA: Not applicableRadiology Service Progress Note DATE OF SERVICE: January 28, 2023 TIME: 12:38 PM PATIENT IDENTITY VERIFICATION COMPLETED USING TWO (2) STANDARD IDENTIFIERS: Name and Date of confirmed by patient verbally. FALL SCREENING: Has the patient had 2 falls in the last year or 1 fall with injury or currently using an Ambulatory Assistive Device (Walker, Cane, Wheelchair, Crutches, etc.)? No PATIENT GENDER DATA: Female. status: : No status: NO. PATIENT RELEVANT IMPLANT DATA REVIEWED: Not Applicable ALLERGIES: Reviewed and unchanged CONTRAST ALLERGY: NO. EXAM: MRI - CONTRAST TYPE: GROUP II PERIPHERAL IV DATA: Ambulatory: A peripheral IV was started in the Right hand with a Butterfly: 23 gauge. RADIOLOGY DEPARTMENT: MR; Exam(s) Completed: Head: Routine Brain SIGNATURE: Sherly Raines PATIENT NAME: Joan Foley DATE: January 28, 2023 TIME: 12:38 PM SIGNED BY: Sherly Raines January 28, 2023 12:37 PM documented in this encounter [facility] 01-21-2023 Instructions Amos Smith APRN.[facility] - 01/21/2023 3:36 PM EDT Aide Haynes DO to KB Bowling 3:15 PM Note If things aren't any better by then - we can extend it. Aide Haynes DO to KB Borges 3:15 PM Note Hi we can make her return to work - 02/06/23 KD 3:06 PM Aide Melvin RN routed this conversation to DO Carri Rangel DD 9:06 AM Note Patient also sent message regarding form Per Patient Can you advise my possible return to work date so I can update my employer? For some reason they have it down as this which is not possible due to my MRI/MRA that day as well as my ongoing inability to do most anything because of my symptoms. January 18, 2023 DD 8:44 AM Carri Reyes routed this conversation to Aide Haynes Pool January 17, 2023 Carri Reyes DD 1:47 PM Note Received return to work medical evaluation form, from [employer] via Fax Sent form to provider via e-mail documented in this encounter [facility] 01-21-2023 History of Present illness Narrative Headache [facility] Virtual Visit Follow up During this COVID-19 pandemic, patient's headache clinic evaluation was scheduled as a virtual visit using the following platform This visit was conducted as a virtual visit, with patient's permission, via Zoom. It required patient-provider interaction for the medical decision making as documented below. Patient stated name and Patient location [place] I have communicated my name and active licensure. The patient's identity and physical location were verified at the time of this visit. Either the patient or their legal sales representative consultant has been informed of the risks and benefits of -- and alternatives to -- treatment through a remote evaluation and consents to proceed with the evaluation remotely. January 21, 2023 Chief Complaint: Headache Impression and Plan last visit: 01/07/2021 JENNIFER injections 01/06/[address] Haynes Ms. Foley is a 43 y/o female with a history of SVT and recently diagnosed liver cyst who presents with new onset headaches since December 15. She has a history of migraine with aura, but new headaches are different with a thunderclap onset. This was followed by development of a constant orthostatic headache starting December 17. She has also developed intermittent vertigo, diplopia, blurry vision, and tinnitus associated with the headache concerning for intracranial hypotension- given worsening of pain at the end of the day and with prolonged upright posture. She has now had 2 blood patches without relief and 1 blood patch with saline. Given thunderclap headache at the onset there is also concern for RCVS causing headache/symptoms. Thus we will repeat vessel imaging to ensure there is no sign of vasospasm. General neurology was concerned about increased intracranial pressure- however this is less likely given headache improves upon lying down and is best first thing in the morning- repeat imaging will be helpful regardless. If imaging is completely negative this may be classified as NDPH and primary thunderclap headache. Can still consider cisternography if high concern for CSF leak. -Episodic Migraine with aura- well controlled -Orthostatic headache -Thunderclap headache PLAN: Work up: Await MRI brain wwo contrast. Repeat MRA brain to rule out vasospasm. Preventive: Gabapentin 300mg three times a day for headache prevention and sleep. Start with the evening dose only for 3 days, then take in the morning and the evening x 3 days. Then 3x a day. Occipital nerve blocks. Abortive: Avoid triptans and fioricet for now. Reglan 5-10mg Zanaflex 4mg as needed for headache. If using over the counter medications- avoid taking more than 2x a week. Next steps: Verapamil, topiramate, nortriptyline (if no signs of vasospasm) MRI spine myelogram and repeat blood patch, if MRI brain concerning for intracranial hypotension. Interval Headache History: New type of headache pain The middle of the night she woke to a sharp stabbing pain left jain lasting 20 minutes. Happened again this morning and just before this visit lasting 30 minutes She has had intermittent dizziness throughout this whole headache process but today it has been all day Seasonal allergies have kicked in - windows are open and it seems like everyone is mowing their lawns today Initial headache pain is tolerable during the day and worsens at the end of the day Only relief is when she is sleeping Headache 1 This is the current headache. Location: frontal and occipital (into temples and ears in the evening-) Quality/Description: aching and dull (pressure in ears at night) Associated Symptoms: Photophobia: yes Phonophobia: yes Nausea: yes - comes and goes Vomiting: no Other symptoms: blurred vision, tinnitus, lightheadedness and dizziness (heaviness in arms and legs. Flashes of light in eyes lasting seconds, dimming of vision with coughing, double vision.) Worse with activity: yes Number of migraine headache days/month: 30 Migraine Severity: 5-9. Duration of headaches with treatment: continuous Current preventive treatment: Gabapentin 500mg a day and Verapamil 120mg Current abortive treatment: reglan for nausea and baclofen at night couple of times during the day Triggers: exertion/exercise Onset of headache to peak: abrupt Relieving factors: lying down. Positional changes: yes - initially very pronounced- now not as much. But still helpful. Most common time of day for headache to begin: morning (always there- but worse at the end of the day.) Prodrome: none Aura: none Allodynia: no Days missed from work or school in the last month: 16 days Lifestyle: Sleep: poor - not able to fall asleep or stay asleep since this started Exercise: not since this all started: Analgesic Butalbital/acetaminophen/caffeine (Fioricet) Oxycodone Anti-Migraine Rizatriptan (Maxalt) Over the Counter Medications Acetaminophen (Tylenol) Acetaminophen/Aspirin/Caffeine (Excedrin, Goody s) Ibuprofen (Advil, Motrin) Current Outpatient Medications Medication Sig LORazepam (ATIVAN) 1 mg tablet Take 1 tablet an hour before MRI, if needed take 1 tab before the procedure verapamil SR (CALAN SR) 120 mg CR tablet Take 1 tablet by mouth daily at bedtime. baclofen (LIORESAL) 5 mg tablet Take 5-10mg up to twice a day as needed for headache. acetaminophen 325 mg-caffeine 40 mg-butalbital 50 mg (FIORICET) per tablet take 1 to 2 tablets by mouth every 6 hours if needed for headache for up to 5 days rizatriptan (MAXALT) 10 mg tablet Take by mouth. metoclopramide HCl (REGLAN) 5 mg tablet Take 5-10mg for nausea with or without benadryl 25mg. gabapentin (NEURONTIN) 300 mg capsule Take 1 capsule by mouth three times daily. metoprolol tartrate, short acting, (LOPRESSOR) 25 mg tablet Take 1 tablet by mouth once daily. As directed No current facility-administered medications for this visit. PAST MEDICAL HISTORY Diagnosis Date Abdominal pain Anemia Dyspepsia Endometriosis Fatty liver Hypertension IBS (irritable bowel syndrome) Liver mass Post-cholecystectomy syndrome Renal disorder MASS DISCOVERED 12/2018 RUQ pain 06/10/14 Vitamin D deficiency ALLERGIES Allergen Reactions Penicillins Hives, Anaphylaxis, Shortness of Breath Chantix [Vareniclin* Other: See Comments Mood changes (irritability), flu like symptoms, body aching Contrast Dye [Iodin* Hives, Swelling Demerol [Meperidine* Other: See Comments Nausea Latex Other: See Comments my skin starts pealing off Morphine Hives, Itching Propoxyphene Intolerance I have reviewed the Health Status Assessment responses and discussed these with the patient: yes Amos Smith APRN.ECOMMERCE MANAGER HEADACHE SCORES: Headache Questions 01/06/2023 01/21/2023 ID Migraine Screener: 3 (Positive) - ER visits in the last year: 3 - ER visits since last office visit: - 0 Hospital stays in the last year: 1 - Hospital stays since last office visit - 0 Limited ADLs in the last month: 21 - Days missed from work or school in the last month: 16 - Days headache pain free in the last month: 10 - Days per month with ALL of the following symptoms - decreased productivity, light sensitivity and nausea: 21 - Initial improvement of headache after botox injection at last visit: - Not applicable, I did not have a botox injection at my last visit PRN medication usage in the last month: 20 - Patient impression of improvement since last visit: - Much worse HIT-6 01/06/2023 HIT-6 72 (Severe impact) SVEN - 2/7 SCORES 01/06/2023 SVEN-2 Score 1 Migraine Specific QOL - Higher scores indicate better HRQL 01/06/2023 Role Function-Restrictive Transformed Score (range: 0-100) 0 Role Function-Preventive Transformed Score (range: 0-100) 0 Emotional Function Transformed Score (range: 0-100) 0 PHQ-9 12/07/2021 01/24/2022 01/06/2023 Score 20 14 15 Review of Systems: Review of system: unchanged from the previous visit (sleep patterns, mood, energy, appetite, stress, exercising). Examination: Vital Signs: There were no vitals taken for this visit. General: well appearing, in no acute distress, well-hydrated, well nourished, alert, congested, Pain Behaviors: rubbing affected body part, solicited verbal complaints, and unsolicited verbal complaints Neurological: Mental Status: Alert and oriented to person, place and time. Affect is normal and appropriate. Speech is spontaneous and fluent without dysarthria, normal in rate, volume and articulation, and clear, coherent, and relevant. 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 Attention span and concentration are excellent. HEENT: Head is normocephalic and features were symmetric. Musculoskeletal: Patient able to sit up right in chair for entirety of visit. Cranial Nerves: III, IV, -EOMI: full. VII-face is symmetric without evidence of weakness. VIII-hearing intact. IMPRESSION: Joan Foley is a 43 year old year old female, with a history of SVT, newly diagnosed liver cyst, migraine with aura who presented initially with thunderclap headache followed orthostatic headaches. She has intermittent diploplia, blurred vision, tinnitus and dizziness. Headache manageable during the day and worsens as the day progress. Gabapentin has reduced intensity some and feels it contributes to the dizziness. She will have the MRI and MRA to exclude vasospasm next week. JENNIFER injection gave her no relief. She started Verapamil a week ago. She presents today with left jain stabbing pain that woke her from sleep lasting 20 minutes. Occurred 2 other times day. Reports being dizzy all day. With the warm weather seasonal allergies have kicked in, she feels this may be contributing. Blood pressure this morning 140/90. 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 Keep track of all medications: This includes the reason for use, side effects and benefits.) MEDICATION TREATMENT: Medications to Start Taking methylPREDNISolone (MEDROL, LAVERNE,) 4 mg Dose-Pack Take as directed Headache education was done. Discussed lifestyle modification including increased oral hydration, decreased caffeine, exercise and stress management. Discussed treatment options including preventive and acute medications, natural supplements, and infusion therapy. Discussed medication overuse headache and to limit use of acute treatments to no more than 2 days/week or 10 days/month. Discussed medication side effects, adverse reactions and drug interactions. Written educational materials and patient instructions outlining all of the above were given. RESEARCH: None at this time Follow-up: Following tests . Level of service: Est level 4 (30-39 min). Time spent 30 min on the day of service, which included preparing to see the patient, [id number] patient care, completing clinical documentation, obtaining and/or reviewing separately obtained history, counseling and educating the patient/family/caregiver, and ordering medications, tests, or procedures. Amos Smith APRN-[facility] Headache Section [facility] January 21, 2023 3:54 PM documented in this encounter [facility] 01-20-2023 Miscellaneous Notes Type of form: Return to work Form received via fax When form is completed, Fax form to number on form Form has been forwarded to Provider via Preeti Reyes documented in this encounter [facility] 01-19-2023 Miscellaneous Notes Further information regarding form in 01/12/23 Enc documented in this encounter [facility] 01-07-2023 History of Present illness Narrative Images from the original note were not included. b Outpatient Headache Clinic - Procedure Note Accompanied by: Spouse Primary Problem List: ACTIVE PROBLEM LIST Insomnia Vitamin D Deficiency Ganglion Cyst of Dorsum of Right Wrist Microvascular Angina (Hcc) Weakness of Right Arm Chronic Fatigue Tobacco Abuse Trigger Thumb of Right Hand Right Carpal Tunnel Syndrome Postoperative Pain Obesity, Class I, Bmi 30-34.9 Hepatic Adenoma Intractable Abdominal Pain Hypertension Nonsustained Ventricular Tachycardia (Hcc) Headache Nicotine use disorder, F17.2 Chief Complaint: Headache Interval Headache History: Joan Foley is a 43 year old year old female, with a history of headaches following up today for greater occipital nerve injections. DALILA: 01/06/[address] Haynes PLAN: Work up: Await MRI brain wwo contrast. Repeat MRA brain to rule out vasospasm. Preventive: Gabapentin 300mg three times a day for headache prevention and sleep. Start with the evening dose only for 3 days, then take in the morning and the evening x 3 days. Then 3x a day. Occipital nerve blocks. Abortive: Avoid triptans and fioricet for now. Reglan 5-10mg Zanaflex 4mg as needed for headache. If using over the counter medications- avoid taking more than 2x a week. Next steps: Verapamil, topiramate, nortriptyline (if no signs of vasospasm) MRI spine myelogram and repeat blood patch, if MRI brain concerning for intracranial hypotension. Procedure Note: Greater Occipital Nerve Block The risks, benefits and anticipated outcomes of the procedure, the risks and benefits of the alternatives to the procedure, and the roles and tasks of the personnel to be involved, were discussed with the patient, and the patient consents to the procedure and agrees to proceed. Electronic Informed consent signed. UNIVERSAL PROTOCOL / SAFETY CHECKLIST Procedure to be Performed: Bilateral Greater Occipital Nerve Block Sign In: A Moment of CARE was completed. Personnel directly involved with the procedure wore the appropriate PPE (Personal Protective Equipment). No special equipment needed. Patient/Surrogate Stated/Verified: PATIENT VERIFIED(optional for EMERGENT procedures): Patient name, Date of , Relevant allergies and The intended procedure Time Out Communication: Intended patient and procedure match the source documents. Consent documented and matches the intended procedure. No relevant labs, photos, and/or imaging studies were applicable for review. Correct side/site marked and visible. Medications required for procedure verified. No fire risk assessment and interventions applicable. No implant(s) inserted. Sign Out: SIGN OUT (optional for EMERGENT procedures): No specimen collected. All instruments, equipment, possible retained foreign bodies accounted for. Post-procedure follow-up management communicated and Plan of Care Visit completed when applicable. 2 cc 0.2.5% Bupivacaine and 6 mg Celestone prepared in 2-- 3cc syringe . 3cc were injected into the each Greater Occipital Nerve(s). 0cc were wasted. The occipital nerve(s) was injected 3cm caudal and 1.5 cm lateral to the inion where the main trunk of the occipital nerve penetrates the semispinalis muscle. The needle was placed perpendicular and the needle advanced 1.5 cm. After aspiration to ensure no obstruction or presence of blood, the area was injected. The needle was repositioned in a fan-like manner and the entire area was injected. The patient was told to use heat if there was discomfort later in the day. Patient tolerated the procedure well. Amos Smith APRN.ECOMMERCE MANAGER VS: BP 145/95 Pulse 92 Resp 20 Ht 162.6 cm (5' 4) Wt 79.8 kg (176 lb) BMI 30.21 kg/m PAST MEDICAL HISTORY Diagnosis Date Abdominal pain Anemia Dyspepsia Endometriosis Fatty liver Hypertension IBS (irritable bowel syndrome) Liver mass Post-cholecystectomy syndrome Renal disorder MASS DISCOVERED 12/2018 RUQ pain 06/10/14 Vitamin D deficiency PAST SURGICAL HISTORY Procedure Laterality Date COLONOSCOPY 03/15/2022 COLONOSCOPY W/BIOPSY 2013 CYST/MOLE REMOVAL Bilateral Left wrist, right hand EGD 03/15/2022 EGD DILATION ENDOSCOPY PROC 2013 bxs LAPS SURG CHOLECYSTECTOMY W/CHOLANGIOGRAPHY 04/24/2014 Normal IOC LIVER SURGERY HX 10/2018 ABLATION FOR MASS PAST SURGICAL HISTORY OF appendectomy PAST SURGICAL HISTORY OF dental procedures PAST SURGICAL HISTORY OF diagnostic laparoscopy PAST SURGICAL HISTORY OF Carpal tunnel release, right PAST SURGICAL HISTORY OF as a child removed a piece of lead from skull TOTAL ABDOMINAL HYSTERECT W/WO RMVL TUBE OVARY 2004 Hysterectomy, AMANDA ALLERGIES Allergen Reactions Penicillins Hives, Anaphylaxis, Shortness of Breath Chantix [Vareniclin* Other: See Comments Mood changes (irritability), flu like symptoms, body aching Contrast Dye [Iodin* Hives, Swelling Demerol [Meperidine* Other: See Comments Nausea Latex Other: See Comments my skin starts pealing off Morphine Hives, Itching Propoxyphene Intolerance Current Medications: acetaminophen 325 mg-caffeine 40 mg-butalbital 50 mg (FIORICET) per tablet take 1 to 2 tablets by mouth every 6 hours if needed for headache for up to 5 days rizatriptan (MAXALT) 10 mg tablet Take by mouth. metoclopramide HCl (REGLAN) 5 mg tablet Take 5-10mg for nausea with or without benadryl 25mg. gabapentin (NEURONTIN) 300 mg capsule Take 1 capsule by mouth three times daily. tiZANidine (ZANAFLEX) 4 mg tablet Take 1 tablet by mouth every 8 hours as needed. iv contrast (will be provided with radiology test) MRI Brain Inject, intravenously, once for 1 dose.No IV access, insert saline lock prior to beginning of sedation, infusion, injection of imaging exam.Discontinue saline lock post exam. If Pt. has a central line or IVAD, may access for administration according to line specific nursing protocol.Once exam is complete flush line and de-access according to line specific nursing protocol in the MR contrast administration guidelines link metoprolol tartrate, short acting, (LOPRESSOR) 25 mg tablet Take 1 tablet by mouth once daily. As directed I have reviewed the [facility] Status Assessment responses and discussed these with the patient: yes Amos J Dobrowski, HYDROELECTRIC PLANT MAINTAINER.ECOMMERCE MANAGER HEADACHE SCORES: Headache Questions 01/06/2023 ID Migraine Screener: 3 (Positive) ER visits in the last year: 3 Hospital stays in the last year: 1 Limited ADLs in the last month: 21 Days missed from work or school in the last month: 16 Days headache pain free in the last month: 10 Days per month with ALL of the following symptoms - decreased productivity, light sensitivity and nausea: 21 PRN medication usage in the last month: 20 HIT-6 01/06/2023 HIT-6 72 (Severe impact) SVEN - 2/7 SCORES 01/06/2023 SVEN-2 Score 1 Migraine Specific QOL - Higher scores indicate better HRQL 01/06/2023 Role Function-Restrictive Transformed Score (range: 0-100) 0 Role Function-Preventive Transformed Score (range: 0-100) 0 Emotional Function Transformed Score (range: 0-100) 0 PHQ-9 12/07/2021 01/24/2022 01/06/2023 Score 20 14 15 RESEARCH: None at this time Follow-up: Following tests Billing: Greater occipital nerve injectons Amos Smith APRN.CNP Headache Section [facility] January 07, 2023 9:59 AM documented in this encounter [facility] 01-06-2023 Miscellaneous Notes Pt informed and form faxed 01/06/2023 by JULIANE Boykin Filled out paperwork for those 2 weeks. Paperwork in outbox. If neurology extended this at all -- they need to fill out any additional paperwork. Thank you, Yamileth Tafoya APRN.CNP Patient calls and states that she needs to go back to work on Tuesday. Patient is needing paperwork to be able to return to work. Advised patient that she would have to get this paperwork through neurology since they were the ones who sent her to ER. Patient states that she will check with neurology for this. Nadine Cantu, RN Please call patient and clarify what is needed on this FMLA paperwork. I discussed in appointment giving her admission dates through until 3-5 days post our office visit for mental rest. So it looks like 12/22-01/05 -- 2 weeks total. I see patient was seen by neurology and sent to ER again -- if they are recommending any further time off then this needs filled out by them. Thank you, Yamileth Tafoya APRN.ECOMMERCE MANAGER documented in this encounter [facility] 01-05-2023 Miscellaneous Notes Yamileth just saw her so was placed in Alysons box. Type of form: FMLA Form received via fax When form is completed, Fax form to [phone] Form has been forwarded to Physician Desk: Dr. Eugene Stephen LPN documented in this encounter [facility] 2023 Instructions Angelica Aviles PA-C - 2023 3:30 PM EDT 1) Please go to ER. I will call [facility] 2) Referral to headache sub specialist 3) Please message if you would like me to send in prednisone or Toradol depending on ER course 4) If for any reason, MRI of the brain with and without contrast is not performed, please le me know and I will order as outpatient documented in this encounter [facility] 2023 History of Present illness Narrative Images from the original note were not included. [facility] Name: Joan Foley Age: [age] year old Gender: female Primary Care Provider: Nicky Knight MD Consult requested for headache by Yamileth Tafoya. Recommendations will be communicated via shared medical record or US mail. Chief Complaint:No chief complaint on file. Assessment/Plan: The primary encounter diagnosis was Positional headache. A diagnosis of Intractable headache, unspecified chronicity pattern, unspecified headache type was also pertinent to this visit. Is a pleasant 43-year-old female presenting for intractable headache since December 16. Patient has had multiple ED visits including a lumbar puncture and is status post 2 blood patches. MRI was notable for subarachnoid air. MRV and MRA were unremarkable. Nevertheless, patient's headache has been intractable and severe. She also has concerning finding of graying out vision bilaterally when she coughs and sneezes concerning for increased intracranial pressure. I recommended patient return to the ER given the intractable nature of her headache in addition to new onset diplopia and vision changes with increased intracranial pressure. Patient also continues to have somewhat positional component to headache and cannot tolerate standing for even short periods of time. Patient is agreeable to going to the ER and plans to go to [facility]. She states that she is in so much pain that she had considered going to the ER prior to the appointment. MRI of the brain with and without contrast may be beneficial given the above times. [facility] doctor called and notified. I also placed referral to headache clinic. No orders of the defined types were placed in this encounter. No follow-ups on file. Chart, labs,and relevant images reviewed. HPI: This is a pleasant 43-year-old female here for evaluation of intractable headaches since December 16, 2022. Patient reports that on December 16, she had a thunderclap headache with maximum intensity under 1 minute. She states it was the worst headache of her life. She went to the ER and had an LP. The LP was unremarkable. No xanthochromia. She reports that headache improved with steroids. The following day, she started having severe pressure in her head. She went to the ED again. The following day they gave her a patch On the , had thunderclap headache. Worst headache of life. Went to ER. Had LP. Improved with steroids. The , the pressure started. Went to the ED again. She had a patch the following day, but they could not get blood and therefore the blood patch was done with saline. Headache persisted and she went back to the ED on the . She had a blood patch in the ER and the headache got even more severe. She was then sent to [facility] and admitted. MRV and MRA of the head were done which were unremarkable. MRI of the brain without contrast showed subarachnoid bubbles presumably from the lumbar puncture. She was given oxygen therapy. She was given opioids and the only medication that was even somewhat helpful was Dilaudid. Toradol, prednisone, and all other medications did not improve headache at all. Now reports that she has started having pain in her ears beginning yesterday. Coughing and sneezing causes her vision to soria out. She reports she has been seeing double vision. She has a somewhat positional component to her headaches reporting that her headache is tolerable when lying down but she can barely tolerate standing for even short periods of time. Patient describes pain as bifrontal and bioccipital radiating into her jaws and ears. She has associated nausea, photophobia, phonophobia. She reports that she is having chills although she has not noted a fever. No recent sickness. No recent rash. MRA and MRV were unremarkable. Age-appropriate unremarkable brain without acute findings. Scattered small foci of subarachnoid and intraventricular susceptibility likely reflecting air from recent lumbar puncture. ACTIVE PROBLEM LIST Insomnia Vitamin D Deficiency Ganglion Cyst of Dorsum of Right Wrist Microvascular Angina (Hcc) Weakness of Right Arm Chronic Fatigue Tobacco Abuse Trigger Thumb of Right Hand Right Carpal Tunnel Syndrome Postoperative Pain Obesity, Class I, Bmi 30-34.9 Hepatic Adenoma Intractable Abdominal Pain Hypertension Nonsustained Ventricular Tachycardia (Hcc) Headache Nicotine use disorder, F17.2 PAST MEDICAL HISTORY Diagnosis Date Abdominal pain Anemia Dyspepsia Endometriosis Fatty liver Hypertension IBS (irritable bowel syndrome) Liver mass Post-cholecystectomy syndrome Renal disorder MASS DISCOVERED 12/2018 RUQ pain 06/10/14 Vitamin D deficiency Medications: Reviewed Current Outpatient Medications on File Prior to Visit Medication Sig metoprolol tartrate, short acting, (LOPRESSOR) 25 mg tablet Take 1 tablet by mouth once daily. As directed No current facility-administered medications on file prior to visit. ALLERGIES Allergen Reactions Penicillins Hives, Anaphylaxis, Shortness of Breath Chantix [Vareniclin* Other: See Comments Mood changes (irritability), flu like symptoms, body aching Contrast Dye [Iodin* Hives, Swelling Demerol [Meperidine* Other: See Comments Nausea Latex Other: See Comments my skin starts pealing off Morphine Hives, Itching Propoxyphene Intolerance FAMILY HISTORY Adopted: Yes Problem Relation Age of Onset other (adopted) Other PAST SURGICAL HISTORY Procedure Laterality Date COLONOSCOPY 03/15/2022 COLONOSCOPY W/BIOPSY 2013 CYST/MOLE REMOVAL Bilateral Left wrist, right hand EGD 03/15/2022 EGD DILATION ENDOSCOPY PROC 2013 bxs LAPS SURG CHOLECYSTECTOMY W/CHOLANGIOGRAPHY 04/24/2014 Normal C LIVER SURGERY HX 10/2018 ABLATION FOR MASS PAST SURGICAL HISTORY OF appendectomy PAST SURGICAL HISTORY OF dental procedures PAST SURGICAL HISTORY OF diagnostic laparoscopy PAST SURGICAL HISTORY OF Carpal tunnel release, right PAST SURGICAL HISTORY OF as a child removed a piece of lead from skull TOTAL ABDOMINAL HYSTERECT W/WO RMVL TUBE OVARY 2004 Hysterectomy, AMANDA SOCIAL HISTORY 2 sons Tobacco Use: Medium Risk Smoking Tobacco Use: Former Smokeless Tobacco Use: Never Passive Exposure: Not on file PHYSICAL EXAM There were no vitals filed for this visit. Neurologic Exam Cognitive and Language: Alert and answered questions appropriately. Language was fluent. Followed simple and complex commands. Cranial Nerves: Visual contreras were full tested binocularly to finger counting in all 4 quadrants with no visual extinction. Pupils were equal and both reactive to light. Extraocular movements were full with no diplopia or nystagmus. Facial sensation was normal to light touch in V1 to V3. Facial strength was symmetric. Normal hearing grossly bilaterally. Palatal raise was symmetric. Shoulder shrug was symmetric. Tongue protrusion was symmetric with no fasciculations. Funduscopic exam showed crisp margins Right Left Shoulder Abduction: 5 5 Elbow Extension 5 5 Elbow Flexion 5 5 Wrist Extension 5 5 Finger Extension 5 5 Finger Abduction 5 5 Right Left Hip Flexion 5 5 Knee Extension 5 5 Knee Flexion 5 5 Dorsiflexion 5 5 Plantar Flexion 5 5 Rest tremor: absent Tone: Normal in all four limbs Reflexes: Right Left Brachioradialis 2 2 Biceps 2 2 Triceps 2 2 Patella 2 2 Ankle 2 2 Sensory: normal to light touch and pinprick x 4 limbs. Coordination: Normal finger to nose testing bilaterally. Negative romberg. Normal gait. Pain on palpation of left occiput. Labs: Lab Results Component Value Date WBC 10.56 12/23/2022 HCT 38.7 12/23/2022 MCV 99.7 12/23/2022 PLT 206 12/23/2022 Lab Results Component Value Date HBA1C 5.0 06/13/2020 HBA1C 5.0 01/19/2019 Cholesterol, Total Date Value Ref Range Status 04/18/2020 190 <200 mg/dL Final Comment: <200 mg/dL, Desirable 200-239 mg/dL, Borderline high >239 mg/dL, High HDL Cholesterol Date Value Ref Range Status 04/18/2020 40 >39 mg/dL Final Comment: 40-59 mg/dL, Acceptable >59 mg/dL, High: Negative risk factor for coronary heart disease <40 mg/dL, Low: Positive risk factor for coronary heart disease LDL Cholesterol Date Value Ref Range Status 04/18/2020 93 <100 mg/dL Final Comment: <100 mg/dL, Optimal 100-129 mg/dL, Near optimal/above optimal 130-159 mg/dL, Borderline high 160-189 mg/dL, High >189 mg/dL, Very high Secondary prevention optimal LDL Cholesterol levels are recommended to be < 70 mg/dL Triglyceride Date Value Ref Range Status 04/18/2020 285 (H) <150 mg/dL Final Comment: <150 mg/dL, Normal 150-199 mg/dL, Borderline high 200-499 mg/dL, High >499 mg/dL, Very high Radiology: This note was dictated using [employer] speech recognition software and may contain some errors that were a result of the program not accurately transcribing what was dictated, despite efforts to make corrections. Note that unless urgent, test and MRI results will be discussed at next follow-up visit. PROMIS (Patient-Reported Outcomes Measurement Information System) is a set of person-centered measures that evaluates and monitors physical, social, and emotional health. It can be used with the general population and with individuals living with chronic conditions. PROMIS 10: PHYSICAL AND MENTAL HEALTH: PHQ-9 01/24/2022 12/07/2021 07/07/2016 Score 14 20 5 Time spent included 50 min on the day of service, which included preparing to see the patient, [id number] patient care, completing clinical documentation, obtaining and/or reviewing separately obtained history, performing a medically appropriate examination, counseling and educating the patient/family/caregiver and ordering medications, tests, or procedures. documented in this encounter [facility] 2023 Discharge summary Note Date/Time 2023 5:26pm [facility] Medical Records Department [address] [place] [address] Emergency Department Summary 01/04/23 MR#: [id number] Acct: [id number] Name: JOAN FOLEY Rep #:[id number] : 1980 43 From: John Valdez MD PCP: Dr. Nicky Knight MD Status:REG E R Location: ED HPI History of Present Illness Chief Complaint: Headache Detail of Chief Complaint: Global headache worse frontal area. Informant: patient Onset/Context/Timing Onset: Weeks (Onset December 18 2 days after lumbar puncture) Context: Sudden Timing: Continuous and Waxes and wanes (Initially worse in upright position. Now not positional) Location: Global worse by frontal Current Severity: Severe Maximum Severity: Severe Worsened by: Nothing Relieved by: Nothing Associated Symptoms/Injury Associated Symptoms: Negative for Fever, Nausea, Vomiting, Sore Throat, Sinus Pressure, Numbness, Tingling, Preceding Aura, Visual Changes, Blurred Vision, Photophobia or Visual Loss Injury - KING: Positive for Direct Trauma Narrative Narrative: Patient was seen on December 19 for spinal headache. Arrangements were made for blood patch. Blood patch was not successful. Saline was instilled first time. Patient was seen in ER for second attempt of blood patch. Patient developed severe pain after placement of blood patch. She was transferred to [facility]. She had extensive work-up which revealed air on MRI. This could have been because of the [address] prior to lumbar puncture on the revealed no pneumocephalus. Patient is on muscle relaxant, opiate analgesia with no improvement. Patient had follow-up by the neuro nurse practitioner at the [facility]. Because of hersymptoms she was sent to the ER for further evaluation. There is no change in patient's headache. As stated before it is not positional. She denies fever. She denies photophobia or sonophobia. When I did walk-in she did have the lights out. She denies rhinorrhea, congestion postnasal drainage. She denies sore throat. She denies neck pain or neck stiffness. She denies cardiac respiratory symptoms. She denies vomiting or diarrhea. She denies urologic symptoms. She denies paresthesia, anesthesia motors. She reports problems with balance. She also reports when she was sitting on her chair last evening looking at the movement she saw 5 bones. Prior similar symptoms: Yes Recent Illness/Hospitalization: Yes PFSH PFSH Medical History Abdominal pain Abnormal stress test Anxiety and depression Chest pain Essential hypertension GERD (gastroesophageal reflux disease) Hepatic adenoma IBS (irritable bowel syndrome) NSVT (nonsustained ventricular tachycardia) Obesity (BMI 30.0-34.9) Partial obstruction of small intestine RUQ pain Tobacco use Home Medications ergocalciferol (vitamin D2) 1,250 mcg (50,000 unit) capsule 50,000 unit PO MO supplement 07/03/20 [History Last Taken 11/03/20] furosemide 20 mg tablet 20 mg PO DAILY PRN PRN Swelling 07/03/20 [History Last Taken Unknown] rizatriptan 10 mg tablet 10 mg PO .X1 PRN PRN migraines 07/03/20 [History Last Taken Unknown] ondansetron 4 mg disintegrating tablet 4 mg PO Q8H PRN nausea and vomiting #10 tabs 05/21/21 [Rx Last Taken Unknown] diltiazem HCl 120 mg capsule,extended release 24 hr 120 mg PO DAILY 05/25/21 [History Last Taken Unknown] bupropion HCl 150 mg 24 hr tablet, extended release 150 mg PO DAILY 12/20/21 [History Last Taken Unknown] hydroxyzine HCl 25 mg tablet 25 mg PO QHS 12/20/21 [History Last Taken Unknown] losartan 50 mg tablet 50 mg PO DAILY 12/20/21 [History Last Taken Unknown] diphenhydramine HCl 25 mg capsule (Benadryl) 25 mg PO Q8H PRN allergic reaction #12 caps 10/06/22 [Rx Last Taken Unknown] epinephrine 0.3 mg/0.3 mL injection, auto-injector (EpiPen 2-Laverne) 0.3 mg (0.3 mL) IM Q4H PRN anaphylaxis #2 ea 10/06/22 [Rx Last Taken Unknown] famotidine 20 mg tablet (Pepcid) 20 mg PO BID #4 tabs 10/06/22 [Rx Last Taken Unknown] prednisone 50 mg tablet 50 mg PO DAILY #2 tabs 10/06/22 [Rx Last Taken Unknown] byupvucbeb-xohdaobhuttsp-ctyejcgk 50 mg-300 mg-40 mg capsule (Fioricet) 1 cap POQ8H PRN pain 3 days #7 caps 12/19/22 [Rx Last Taken Unknown] Allergy/AdvReac Type Severity Reaction Status Date / Time latex Allergy Mild IRRIATION, Verified 01/04/23 15:49 OR IF SHE INGEST SHE VOMITS. Iodine and Iodide Containing Allergy Anaphylaxis Verified 01/04/23 15:49 Produc morphine Allergy Itching Verified 01/04/23 15:49 Penicillins Allergy Anaphylaxis Verified 01/04/23 15:49 meperidine [From Demerol] AdvReac Nausea Verified 01/04/23 15:49 propoxyphene AdvReac Nausea Verified 01/04/23 15:49 [From Darvocet-N] varenicline [From Chantix] AdvReac Turns me Verified 01/04/23 15:49 into a crazy person Surgical History History of carpal tunnel release History of surgery of liver Status post appendectomy Status post cholecystectomy Status post hysterectomy Social History (Updated 01/04/23 @ 17:[address] John Valdez MD) household members: spouse and children Smoking Status: Former smoker alcohol intake: current details: occasional substance use type: does not use ROS ROS ED Constitutional Constitutional ED: Denies chills, fever(s), subjective, sweats or weight loss Eyes Eyes: Reports change in vision bilateral; Denies blurry vision or diplopia ENT ENT ED: Denies ear pain, rhinorrhea or sore throat Cardiovascular Cardiovascular: Denies chest pain, orthopnea, palpitations, paroxysmal nocturnaldyspnea or racing heartbeat Respiratory/Chest Respiratory/Chest: Denies cough, dyspnea, dyspnea on exertion, orthopnea or paroxysmal nocturnal dyspnea Gastrointestinal Gastrointestinal: Reports nausea; Denies abdominal pain, constipation, diarrhea,melena or vomiting Genitourinary Genitourinary ED: Denies dysuria, hematuria or urinary frequency Musculoskeletal Musculoskeletal: Denies arthralgias, back pain, myalgias or neck pain Integumentary Denies Abrasions or rash Neurologic Neurologic: Reports headache(s); Denies paresthesias or weakness Endocrine Endocrinology: Denies polydipsia, polyphagia or polyuria Hematologic/Lymphatic Hematologic/Lymphatic: Denies easy bleeding or easy bruising EXAM Physical Exam Const Vital Signs: 01/04/23 15:45 Temperature 97.6 F L Temperature Source Temporal Pulse Rate 101 H Respiratory Rate 20 H Blood Pressure 155/95 H Blood Pressure Mean 115 Pulse Ox 100 Oxygen Delivery Method Room Air Positive well nourished, well developed and obese General Appearance ED: well developed and NAD; Negative for cyanotic, diaphoretic or pallor Nutritional Appearance: obese HEENT Reports normocephalic, TM's clear and moist mucous membranes atraumatic; Negative for tenderness, temporal artery tenderness or vesicular rash Face and Sinus: Negative for sinus tenderness Tympanic Membrane ED: Yes TM's clear Eyes PERRL and EOMs intact bilaterally General Eye ED: Negative for pale conjunctiva or scleral icterus Neck no lymphadenopathy, supple, no meningeal signs and no JVD Resp normal respiratory effort and clear to auscultation bilaterally Cardio regular rate, regular rhythm, S1 normal heart sound, S2 normal heart sound and no murmurs GI non-tender and non-distended Palpation: soft Back/Spine no CVA tenderness Extremity normal to inspection, full ROM and normal capillary refill Neuro oriented x3, CN's II-XII intact bilaterally and no sensory deficits noted Neuro Narrative: There is no dysmetria. There is no clonus. There is no Babinski sign noted. [place] Coma Scale: document GCS findings Spontaneous Obeys Commands Oriented 15 Sensorium / Orientation: awake and alert Speech: speech normal Motor Exam: strength 5/5 throughout Psych mental status grossly normal Skin General Skin Exam: elasticity normal and turgor normal; Negative for jaundice orpallor MDM MDM MDM Narrative Medical decision making narrative: ER records for visit on the , were reviewed. Records from [facility] reviewed which did reveal pneumocephalus on MRI. Suspect this is due tothe multiple blood patches and air was incidentally injected when checking for the subarachnoid space. Patient without fever, chills meningeal findings. Doubt infectious etiology. CT was reviewed from the performed that [facility] and there is evidence of chronic left maxillary sinusitis. Blood pressure is slightly evaded with this would not be the cause of her headache. Tachycardia may be due to the elevated blood pressure and pain. We will treat with IV fluids, Benadryl, Toradol and Reglan. If this does not work we will try IV Depakote. I was informed by patient's nurse at 1726 that patient stated the only thing that works is Dilaudid . History & Record Review Additional record(s) reviewed:: Prior inpatient record and Prior outpatient record Treatment and Re-Evaluation Narrative: Nurse informed me at 10/17/2000 that patient reports 60% reduction in her pain. She states it is at 40% of what it was. In light of this she will be discharge. Patient feels comfortable going home Discharge Plan Triage Chief Complaint: Headache Other Complaint: Vision Prob ED Provider: John Valdez Dx/Rx/DC Orders Clinical Impression: Acute intractable headache, Obesity (BMI 30.0-34.9), Essential hypertension, Anxiousness Instructions: ED Rebound Headache Prescriptions: No Action rizatriptan 10 MG tablet 10 mg PO .X1 PRN PRN (Reason: migraines) furosemide 20 MG tablet 20 mg PO DAILY PRN PRN (Reason: Swelling) ergocalciferol (vitamin D2) 50,000 UNIT capsule 50,000 unit PO MO ondansetron 4 mg tablet,disintegrating 4 mg PO Q8H PRN (Reason: nausea and vomiting) Qty: 10 0RF diltiazem HCl 120 mg capsule,extended release 24hr 120 mg PO DAILY losartan 50 mg Tablet 50 mg PO DAILY hydroxyzine HCl 25 mg tablet 25 mg PO QHS Label Comments: TAKE 1 TABLET BY MOUTH EVERY 6 HOURS NEEDED FOR ITCHING/RASH. bupropion HCl 150 mg tablet extended release 24 hr 150 mg PO DAILY Label Comments: TAKE 1 TABLET BY MOUTH EVERY DAY prednisone 50 mg tablet 50 mg PO DAILY Qty: 2 0RF famotidine [Pepcid] 20 mg tablet 20 mg PO BID Qty: 4 0RF diphenhydramine HCl [Benadryl] 25 mg capsule 25 mg PO Q8H PRN (Reason: allergic reaction) Qty: 12 0RF epinephrine [EpiPen 2-Laverne] 0.3 mg/0.3 mL auto-injector 0.3 mg IM Q4H PRN (Reason: anaphylaxis) Qty: 2 0RF epyeocfbtk-udavskjcblmcf-frpz [Fioricet] 50-300-40 mg capsule 1 cap PO Q8H PRN (Reason: pain) 3 Days Qty: 7 0RF Primary Care Provider: Nicky Knight Referrals: Nicky Knight MD [Primary Care Provider] - As Needed Disposition Disposition: Home, Self Care What to do if you have Problems For any increased pain, shortness of breath, bleeding, nausea or vomiting, chestpain, or any unexpected problems, contact your Primary Care Provider. Call [facility] ([phone]) or report to the closest Emergency Room. Call 911 if necessary. 01/04/23 180 <Electronically signed by John Valdez MD> Cosigner Signature (if applicable): CC: Dr. Nicky Knight MD ~ Signed [facility] Work Phone: [phone]) 692-212603-23-2023 Miscellaneous Notes* Telephone Encounter - Alyce Montoya LPN - 12/30/2022 11:58 AM EDT Pt was in [facility] 12/22 - 12/28/22 for a spinal fluid leak from a lumbar puncture. Pt reports her IV was painful when she was in the hospital & now the area where the IV was is red, warm & the vein is hard. Pt does not have a fever. Appt scheduled with Huong today. Alyce Montoya LPN documented in [facility] History of Present illness Narrative* Philly Mckeon RN - 12/30/2022 10:43 AM EDT TRANSITIONAL CARE MANAGEMENT (TCM) COMMUNITY MONITORING PROGRAM Provider Action/FYI: Outreach attempt #2 Unable to reach patient. Left message. SUMMARY: Pt discharged from [facility] on 12/28/22. Admitted for: Intractable headache Contact made with patient: No - 2nd unsuccessful attempt - end outreach and close encounter Outreach ended Philly Mckeon RN * Philly Mckeon RN - 12/29/2022 10:01 AM EDT TCM Home Visit Referral Source of Stratification: [facility] Hospital Admission Status: Discharged Readmission Risk Score: 6 CAMILA Score: 6 Patient meets program referral criteria: No Patient does not qualify for High Risk TCM Home Visit program due to: Discharged home, does not meet program criteria Philly Mckeon RN December 29, 2022 10:01 AM TRANSITIONAL CARE MANAGEMENT (TCM) COMMUNITY MONITORING PROGRAM Provider Action/FYI: Outreach attempt #1 Unable to reach patient. Left message. Will try again later SUMMARY: Pt discharged from [facility] on 12/28/22. Admitted for: Intractable headache Contact made with patient: No - next outreach attempt will be on next Outreach ended Philly Mckeon RN documented in this encounterC[facility]03-[facility]-2023 Miscellaneous Notes* Telephone Encounter - Serg Auguste RN - 12/30/2022 9:36 AM EDT DANIEL RN Attempted to reach patient as a follow up call after recent discharge from hospital. Unable to reach patient as there was no answer. Message left on identifiable VM that we will return call to complete survey. If any change in s/s please f/u with specialist or pcp. In any case of emergency please go to Emergency dept. Serg Auguste RN documented in this encounterCrystal [facility]03-16-2023 NoteHNO ID: [id number] Author: Carolyn Nash MD Service: Hospital Medicine Author Type: Physician Type: Progress Notes Filed: 12/23/2022 3:52 PM Note Text: DEPARTMENT OF HOSPITAL MEDICINE PROGRESS NOTE SERVICE DATE: 12/23/2022 SERVICE TIME: 3:48 PM Hospital Medicine/Primary Attending: Carolyn Clay MD NIGHT AND WEEKEND COVERAGE: After 7pm please page [phone] SUBJECTIVE: continue to have positional headache , some improvement with medicines Denies nausea/vomiting/diarrhea. OBJECTIVE: PHYSICAL EXAM: BP 116/71 Pulse 71 Temp (Src) 98.2 (Oral) Resp 18 Ht 5' 4 (1.63m) Wt 176 lb (79.8kg) SpO2 95% BMI 30.20 kg/(m2). O2 Therapy: Room Air General: NAD, appears comfortable Resp: Clear to auscultation B/L, no wheeze/rhonchi, unlabored CV: RRR, Normal S1S2, No murmur/rub/gallop GI: soft, NT/ND, + BS Ext: no cyanosis/clubbing/edema Neuro: AANDO x 3, speech fluent MEDICATIONS: Current Facility-Administered Medications Medication Dose Route Frequency NaCl 0.9% iv flush bag 20 mL INTRAVENOUS PRN HYDROmorphone (PF) 0.5 mg injection (DILAUDID) 0.5 mg INTRAVENOUS q 4 H PRN prochlorperazine 5 mg injection (COMPAZINE) 5 mg INTRAVENOUS q 6 H PRN magnesium sulfate 1 g in D5W 100 mL 1 g INTRAVENOUS ONCE caffeine-sodium benzoate 500 mg in NaCl 0.9% 1,000 mL 500 mg INTRAVENOUS ONCE DATA: Diagnostic tests reviewed for today's visit: CBC, Coags, BMP, Mg, Phos Recent Labs 12/23/22 0435 WBC 10.56 HB 12.5 HCT 38.7 PLT 206 INR <0.9* NA 135* K 4.6 CHLOR 104 CO2 21* BUN 9 CREAT 0.68 GLUC 145* CA 8.5 CSF AND Dilantin Liver Function, Amylase, AND Lipase Recent Labs 12/23/22 0435 TPROT 6.1* ALB 4.0 ALT 145* AST 108* ALKPHOS 67 TBILI 0.2 Cardiac Enzymes ABGs Problem List Headache POA: Yes HOSPITAL COURSE: Joan Foley is a 42 year old female with #Intractable headache- Migraine , post LP -on caffeine and Mg sulfate -neuro consult -Brain MRI pending -takes prn maxalt at home has not helped #Elevated LFT s No RUQ pain Has history of hepatic adenoma , follows with GI as outpatient Will monitor LFTs RUQ US #Hx of htn-monitor off meds #hx of svt monitor off meds currently VTE Prophylaxis: as appropriate Disposition: Home Plan of care discussed with: Provider, RN, Patient SIGNATURE: Carolyn Nash MD PATIENT NAME: Joan Foley DATE: December 23, 2022 TIME: 3:48 PM PAGER/CONTACT #: kurt hinton [facility] 12-23-2022 NoteHNO ID: [id number] Author: Dee Currie RN Service: Care Management Author Type: Registered Nurse Type: Care Mgt Initial Assessment Filed: 12/23/2022 11:04 AM Note Text: CARE MANAGEMENT: ASSESSMENT AND DISCHARGE PLAN SERVICE DATE: December 23, 2022 SERVICE TIME: 11:02 AM PRIMARY CARE PHYSICIAN: Nicky Knight MD Primary Contact: Extended Emergency Contact Information Primary Emergency Contact: Chris Foley [facility] Mobile Relation: Spouse Secondary Emergency Contact: Aide Herrera Mobile Relation: Mother ADMISSION STATUS: Observation Insurance Provider: [employer] PPO NEEDS PRIOR TO DISCHARGE Needs Prior to Discharge: To Be Determined, Discharge Prescriptions POTENTIAL TRANSITION PLANS No Services Indicated;To Be Determined Based on clinical judgement, Care Management will address the following needs: No transitional/discharge planning needs at this time Patient's perception of need for this admission: Headache ADVANCE DIRECTIVES Current Advance Directive: Health Care Power of Gas Engine Repairer In Chart: Yes Up To Date and Valid: Yes MS/BEHAVIOR Baseline Mental Status Prior to this Illness what was the patient's Baseline Mental Status?: Alert AND Oriented Prior to this illness, has anyone described the patient having any of the following behaviors?: Not Applicable Relationship of the informant to the patient:: Self READMISSION Last Discharge Date: 09/11/21 Is this Within the Past 30 days? From what level of care did patient present?: Home Last discharge within 30 days: No PATIENT SCREEN Patient/Surveyor Hydrographic Stated Goals: To have reduction in pain, To have reduction in symptoms Under the care of a PCP?: Yes, Internal Provider Provider Name: Dr Knight Does the patient have transportation upon discharge?: Yes Use of any community resources?: No Does the patient have a stable and supportive living arrangement and home setting?: Yes Are there any potential risks or gaps identified by risk/functional/fall,etc. scores in the EMR?: No Any potential risks related to substance abuse and/or behavioral health?: No Based on clinical judgement, Care Management will address the following needs: No transitional/discharge planning needs at this time CAREGIVER ASSESSMENT Caregiver is ready, willing and able to meet the patient's needs as recommended by the inter-professional team:: No Caregiver needed MEDICAL Medical Needs: Two or more chronic diseases Health Issues Impacting Discharge Plan: Chronic Medication Adherance I am convinced of the importance of my prescription medication: 0 - Agree Completely I worry that my prescription medication will do more harm than good to me : 0 - Disagree Mostly I feel financially burdened by my qpi-kp-vnlwol expenses for my prescription medication:: 0 - Disagree Mostly Risk Score: 0 Patient is categorized as: Low risk < 2 SOCIAL Living Arrangements: Home Lives With: Spouse Financial Resources: Employed Supportive Patient Contact:: Yes Contact Resources: Medical/Health POA Is Patient Psychosocially Complex?: No Contact Resources: Medical/Health POA Health Literacy How often do you need to have someone help you when you read instructions, pamphlets, or other written material from your doctor or pharmacy? : 1 - Never How confident are you filling out medical forms by yourself?: 1 - Extremely If Patient scores > 3 on either question, the following interventions were put into place:: Patient did not score > 3 on either question. Food Insecurity: No Food Insecurity Worried About Running Out of Food in the Last Year: Never true Ran Out of Food in the Last Year: Never true Financial Resource Strain: Low Risk Difficulty of Paying Living Expenses: Not very hard Transportation Needs: No Transportation Needs Lack of Transportation (Medical): No Lack of Transportation (Non-Medical): No Housing Stability: Low Risk Unable to Pay for Housing in the Last Year: No Number of Places Lived in the Last Year: 1 Unstable Housing in the Last Year: No BEHAVIORAL/COGNITIVE Psychosocial Psychosocial Needs: None FUNCTIONAL How do you manage to accomplish the following: Independent: Ambulation;Bathe/Shower;Dress;Meals/Meal Prep;Going to the bathroom;Medication Management;Transportation to appointments/community Services/Needs//Equipment Does Patient Currently Receive Any Community Services or Home Care?: None Equipment Prior to Admission: None Has the Patient Been in a Chcf Facility in the Past 30 days?: No No medical discharge barriers identified at this time. No social discharge barriers identified at this time. No behavioral/cognitive discharge barriers identified at this time. No functional discharge barriers identified at this time. FREEDOM OF CHOIC (more content not included)...[facility] 12-23-2022 NoteHNO ID: [id number] Author: Zoila Lopez RN Service: Nursing Author Type: Registered Nurse Type: Progress Notes Filed: 12/22/2022 11:56 PM Note Text: LP notified: RM. [id number] OG - PATIENT IS IN NEED OF PAIN MEDS PLEASE![facility]03-16-2023 NoteHNO ID: [id number] Author: Zoila Lopez RN Service: Nursing Author Type: Registered Nurse Type: Progress Notes Filed: 12/22/2022 10:52 PM Note Text: LP Notified: Rm. [id number]: Joan Foley has arrived from [facility] at this time. Just need orders please. TY.[facility]03-15-[address]chor [facility] December 22, 2022 7:10pm Note Date/Time December 22, 2022 7:0 4pm [facility] Medical Records Department [address] [place] [id number] Progress Note - Hospitalist 12/22/22 1903 MR#: [id number] Acct: [id number] Name: JOAN FOLEY Rep #:[id number] : 1980 42 From: Rosemary Melchor MD PCP: Nicky Knight MD Status:REG ER Location: ED Hospitalist Note Received page for evaluation of Ms. Foley. She had headache 6 to 7 days ago and was evaluated at [place] and had LP and was given headache cocktail and felt better for about 12 hours and then had significant pain starting on Tuesday that is continued to worsen, she presented today with 10 out of 10 pain and had blood patch in the ED the reported headache continued to worsen despite that. Went to discuss with patient to evaluate admission here versus appropriateness for transfer. She reports that she has a history of sporadic migraines but theyalways have an aura and are on one side and was never had a headache like this. Reports that she has not been eating well because she cannot stand up long enough to make food and she feels lightheaded and dizzy, no medications have significantly helped her headache during this time and does report that she has been occasionally getting blurry or double vision and will have flashing lights at times. She has begun to feel somewhat generally weak. Discussed with ED physician, recommend she is transferred to a facility with in person neurology/higher level of care given reported significance of symptoms that havebeen refractory to all interventions at this time 12/22/221909 <Electronically signed by Rosemary Melchor MD> Cosigner Signature (if applicable): CC: ~ Signed [facility] Work Phone: [phone]) 828-947903-15-2023 Miscellaneous Notes* Telephone Encounter - Gianna Trimble LPN - 12/22/2022 7:06 PM EDT left detailed message of instructions. Gianna Trimble LPN * Telephone Encounter - Nicky Knight MD - 12/22/2022 7:02 PM EDT I think with her new symptoms She needs to go to the ER again. May be she is dehydrated and needs some IVFs as she has been having diarrhea. * Telephone Encounter - Anuja Daley RN - 12/22/2022 1:44 PM EDT Triage Protocol Recommended: ER now/Call 911. Patient agreeable. Reason for Disposition [1] Weakness (i.e., paralysis, loss of muscle strength) of the face, arm or leg on one side of the body AND [2] sudden onset AND [3] present now Answer Assessment - Initial Assessment Questions Patient calling with complaint of severe dizziness and a lot of nausea. Also states my arms and legs feel heavy. Has moments where she feels faint, which comes and goes. Unable to walk without holding on to things. Reports took a shower a little bit ago and almost fell twice. Also reports my mouth feels weird-not as sensitive as it usually is. Reports diarrhea for approximately 3 days and has about 4-5 episodes of diarrhea in last 24 hours. No confusion noted. Patient speaking in clear sentences. Reports her is home with her. 1. DESCRIPTION: severe dizziness 2. LIGHTHEADED: yes 3. VERTIGO: denies 4. SEVERITY: severe 5. ONSET: today 6. AGGRAVATING FACTORS: position changes, walking 7. HEART RATE: (not completed) 8. CAUSE: Patient reports two recent ER visits; one at [place] ER last due to migraine and states lumbar puncture was completed. Patient reports days later she developed a headache and [facility] and it was determined that she had a CSF leak. Pt then saw Dr. Peguero who put saline into her spine. Pt states she contacted Dr. Peguero's office x2 today about current sx's and they made appt for pt to be seen at their office tomorrow. Pt calling PCP office for advise for currentsx's now. 9. RECURRENT SYMPTOM: yes 10. OTHER SYMPTOMS: -severe dizziness-has to hold onto things when walking -reports almost fell twice today -arms and legs feel heavy -Mouth feels weird -feeling faint at times -diarrhea x 3 days -denies SOB or chest pain -a lot of nausea, no vomiting 11. :no Protocols used: Dizziness - Nzpstciqhlffgjx-EVIAL-GT documented in this encounterC[facility]03-15-[address]camo [facility] December 22, 2022 11:52pm Note Date/Time December 22, 2022 3:1 4pm [facility] Medical Records Department [address] [place] [address] Emergency Department Summary 12/22/22 MR#: [id number] Acct: [id number] Name: JOAN FOLEY Rep #:[id number] : 1980 42 From: Andria Carcamo DO PCP: Nicky Knight MD Status:REG ER Location: ED HPI History of Present Illness Chief Complaint: Headache Detail of Chief Complaint: Headache Informant: patient Narrative Narrative: Patient presents with a headache that started initially 7 days ago. 6 days ago she went to [facility] where she had a CT scan as well as a lumbar puncture and was treated with a cocktail and she had good pain relief at that time. Patient states about 24 hours later started having severe headache again and was seen in our emergency department on the and diagnosed with a spinalfluid leak and was told she would need a lumbar blood patch. Patient followed up with her pain management doctor, DR Peguero who attempted to get blood from patient unsuccessfully and then he injected apparently saline into the lumbar area and she has had no relief with that. Patient continues to complain of headache and feeling lightheaded and dizzy with standing and feeling off balance. Headache worse with standing. She had some nausea but no vomiting. She complains of some mild photophobia. PFSH PFSH Medical History Abdominal pain Abnormal stress test Anxiety and depression Chest pain Essential hypertension GERD (gastroesophageal reflux disease) Hepatic adenoma IBS (irritable bowel syndrome) NSVT (nonsustained ventricular tachycardia) Obesity (BMI 30.0-34.9) Partial obstruction of small intestine RUQ pain Tobacco use Home Medications ergocalciferol (vitamin D2) 1,250 mcg (50,000 unit) capsule 50,000 unit PO MO supplement 07/03/20 [History Last Taken 11/03/20] furosemide 20 mg tablet 20 mg PO DAILY PRN PRN Swelling 07/03/20 [History Last Taken Unknown] rizatriptan 10 mg tablet 10 mg PO .X1 PRN PRN migraines 07/03/20 [History Last Taken Unknown] ondansetron 4 mg disintegrating tablet 4 mg PO Q8H PRN nausea and vomiting #10 tabs 05/21/21 [Rx Last Taken Unknown] diltiazem HCl 120 mg capsule,extended release 24 hr 120 mg PO DAILY 05/25/21 [History Last Taken Unknown] bupropion HCl 150 mg 24 hr tablet, extended release 150 mg PO DAILY 12/20/21 [History Last Taken Unknown] hydroxyzine HCl 25 mg tablet 25 mg PO QHS 12/20/21 [History Last Taken Unknown] losartan 50 mg tablet 50 mg PO DAILY 12/20/21 [History Last Taken Unknown] diphenhydramine HCl 25 mg capsule (Benadryl) 25 mg PO Q8H PRN allergic reaction #12 caps 10/06/22 [Rx Last Taken Unknown] epinephrine 0.3 mg/0.3 mL injection, auto-injector (EpiPen 2-Laverne) 0.3 mg (0.3 mL) IM Q4H PRN anaphylaxis #2 ea 10/06/22 [Rx Last Taken Unknown] famotidine 20 mg tablet (Pepcid) 20 mg PO BID #4 tabs 10/06/22 [Rx Last Taken Unknown] prednisone 50 mg tablet 50 mg PO DAILY #2 tabs 10/06/22 [Rx Last Taken Unknown] ypdzvuijiv-qpjzjrrhwipfm-cdqxupzu 50 mg-300 mg-40 mg capsule (Fioricet) 1 cap POQ8H PRN pain 3 days #7 caps 12/19/22 [Rx Last Taken Unknown] Allergy/AdvReac Type Severity Reaction Status Date / Time latex Allergy Mild IRRIATION, Verified 12/22/22 14:27 OR IF SHE INGEST SHE VOMITS. Iodine and Iodide Containing Allergy Anaphylaxis Verified 12/22/22 14:27 Produc morphine Allergy Itching Verified 12/22/22 14:27 Penicillins Allergy Anaphylaxis Verified 12/22/22 14:27 meperidine [From Demerol] AdvReac Nausea Verified 12/22/22 14:27 propoxyphene AdvReac Nausea Verified 12/22/22 14:27 [From Darvocet-N] varenicline [From Chantix] AdvReac Turns me Verified 12/22/22 14:27 into a crazy person Family History no significant family his Surgical History History of carpal tunnel release History of surgery of liver Status post appendectomy Status post cholecystectomy Status post hysterectomy Social History Smoking Status: Former smoker alcohol intake: current details: occasional substance use type: does not use ROS ROS ED Review of Systems ROS Unobtainable: other Constitutional Constitutional ED: Reports lethargy; Denies chills, fever(s), sweats or weight loss Eyes Eyes: Denies blurry vision, change in vision or diplopia ENT ENT ED: Denies rhinorrhea or sore throat Cardiovascular Cardiovascular: Denies chest pain, orthopnea or racing heartbeat Respiratory/Chest Respiratory/Chest: Denies cough, dyspnea, dyspnea on exertion, orthopnea or sputum Gastrointestinal Gastrointestinal: Denies abdominal pain, diarrhea, nausea or vomiting Genitourinary Genitourinary ED: Denies dysuria, hematuria or urinary frequency Musculoskeletal Musculoskeletal: Denies arthralgias, back pain, myalgias or neck pain Integumentary Denies abscess, Abrasions or rash Neurologic Neurologic: Reports headache(s) and other Details: Dizziness, feeling off balance ; Denies weakness Psychiatric Psychiatric: Denies anxiety, depression or suicidal thoughts Endocrine Endocrinology: Denies polydipsia, polyphagia or polyuria Hematologic/Lymphatic Hematologic/Lymphatic: Denies easy bleeding, easy bruising or lymphadenopathy Allergic/Immunologic Allergic/Immunologic ED: Denies mouth swelling, tongue swelling or urticaria EXAM Physical Exam Const Vital Signs: 12/22/22 14:24 12/22/22 15:22 12/22/22 16:24 Temperature 97.9 F 97.7 F L 98.6 F Temperature Source Temporal Temporal Temporal Pulse Rate 96 96 98 Respiratory Rate 18 18 18 Blood Pressure 137/99 H 137/99 H 135/98 H Blood Pressure Mean 111 111 110 Pulse Ox 97 98 66 Oxygen Delivery Method Room Air Room Air Room Air 12/22/22 18:00 Temperature 97.6 F L Temperature Source Temporal Pulse Rate 68 Respiratory Rate 18 Blood Pressure 123/80 H Blood Pressure Mean 94 Pulse Ox 99 Oxygen Delivery Method Room Air Positive well nourished and well developed General Appearance ED: well developed and NAD HEENT Reports TM's clear and moist mucous membranes normocephalic and atraumatic; Negative for trauma or tenderness Tympanic Membrane ED: Yes TM's clear Eyes PERRL and EOMs intact bilaterally General Eye ED: Negative for pale conjunctiva or scleral icterus Neck no lymphadenopathy, supple and no JVD General: Negative for tenderness Chest Wall inspection of chest normal and palpation of chest normal Chest: Negative for tenderness Resp normal respiratory effort and clear to auscultation bilaterally Effort and Inspection: Negative for respiratory distress or pain with movement Auscultation: Negative for rhonchi, wheezes or diminished lung sounds Cardio regular rate, regular rhythm, S1 normal heart sound, S2 normal heart sound and no murmurs Peripheral Pulses: pulses 2+ throughout GI normal to inspection, nondistended, normoactive bowel sounds, soft to palpation,non-tender, non-distended and no masses Back/Spine no CVA tenderness and no thoracic nor lumbar tenderness Extremity normal to inspection General Extremety ED: Negative for edema General Extremity: Negative for edema Neuro oriented x3, CN's II-XII intact bilaterally, no sensory deficits noted and gait normal Sensorium / Orientation: awake, alert, oriented to person, oriented to place andoriented to time Motor Exam: strength 5/5 throughout and strength abnormal Psych mental status grossly normal Skin no rashes or lesions noted and no wounds MDM MDM MDM Narrative Medical decision making narrative: Patient presents with severe headache. She has been seen several times for headache including 6 days ago when she had a lumbar puncture and CT scan of her brain. She was then subsequently seen and believed to have a post LP headache and referred to pain management for blood patch. They were unable to perform the blood patch however she did have saline placed in the lumbar region for volume to see if this would help her pain and it has not. I did medicate her with Reglan, Benadryl, and Toradol here. She was given liter normal saline fluid bolus. I did discuss case with pain management Dr. Peguero who would be happy to see patient and perform a blood patch. I did repeat a CT of her brain which was done without contrast that she has anaphylaxis to IV dye. CT was unremarkable. Blood patch performed by pain management physician in the department and patient stated that her headache actually got worse. She was medicated with Dilaudid. She continues to complain of severe headache. Discussed with hospitalist to evaluate for admission for intractable headache however given her ongoing pain and recent blood patch and interventions it was felt she should be transferred to a facility that had neurology in-house to evaluate patient. Patient wanted to go to [facility] however they did not have beds available. I discussed case with [facility] and patient was accepted to their facility for transfer for intractable headache. It is unclear if this headache is intractable migraine. She may need further evaluation such as MRI or MRA to evaluate vasculature further. Patient transferred in stable condition Lab Data Labs: Laboratory Results - last 24 hr 12/22/22 15:35 WBC 10.8 RBC 4.31 Hgb 14.1 Hct 43.0 MCV 99.8 H MCH 32.7 H MCHC 32.8 RDW Std Deviation 43.9 RDW Coeff of Lynette 11.9 Plt Count 187 MPV 11.2 Immature Gran % (Auto) 1.800 H Neut % (Auto) 63.5 Lymph % (Auto) 25.3 [place] % (Auto) 6.8 Eos % (Auto) 1.8 Baso % (Auto) 0.8 Absolute Neuts (auto) 6.9 Absolute Lymphs (auto) 2.74 Nucleated RBC % 0 Differential Comment SCANNED Radiography Diagnostic Testing: Clinical Impression(s) from Imaging Studies Brain CT 12/22/22 15:36 IMPRESSION: There are no acute intracranial findings. Electronically Signed: Russ Marquez MD at 16:19 EDT Reading Location ID and State: [facility] / [place] , Service support , Discharge Plan Triage Chief Complaint: Headache ED Provider: Andria Carcamo Dx/Rx/DC Orders Clinical Impression: Acute intractable headache Prescriptions: No Action rizatriptan 10 MG tablet 10 mg PO .X1 PRN PRN (Reason: migraines) furosemide 20 MG tablet 20 mg PO DAILY PRN PRN (Reason: Swelling) ergocalciferol (vitamin D2) 50,000 UNIT capsule 50,000 unit PO MO ondansetron 4 mg tablet,disintegrating 4 mg PO Q8H PRN (Reason: nausea and vomiting) Qty: 10 0RF diltiazem HCl 120 mg capsule,extended release 24hr 120 mg PO DAILY losartan 50 mg Tablet 50 mg PO DAILY hydroxyzine HCl 25 mg tablet 25 mg PO QHS Label Comments: TAKE 1 TABLET BY MOUTH EVERY 6 HOURS NEEDED FOR ITCHING/RASH. bupropion HCl 150 mg tablet extended release 24 hr 150 mg PO DAILY Label Comments: TAKE 1 TABLET BY MOUTH EVERY DAY prednisone 50 mg tablet 50 mg PO DAILY Qty: 2 0RF famotidine [Pepcid] 20 mg tablet 20 mg PO BID Qty: 4 0RF diphenhydramine HCl [Benadryl] 25 mg capsule 25 mg PO Q8H PRN (Reason: allergic reaction) Qty: 12 0RF epinephrine [EpiPen 2-Laverne] 0.3 mg/0.3 mL auto-injector 0.3 mg IM Q4H PRN (Reason: anaphylaxis) Qty: 2 0RF eziogigfgf-vwbfvicpztzwr-vhqf [Fioricet] 50-300-40 mg capsule 1 cap PO Q8H PRN (Reason: pain) 3 Days Qty: 7 0RF Primary Care Provider: Nicky Knight Referrals: Nicky Knight MD [Primary Care Provider] - Disposition Disposition: DC/Tx to Another Type of HCF What to do if you have Problems For any increased pain, shortness of breath, bleeding, nausea or vomiting, chestpain, or any unexpected problems, contact your Primary Care Provider. Call [facility] ([phone]) or report to the closest Emergency Room. Call 911 if necessary. 12/22/22 2352 <Electronically signed by Andria Carcamo DO> Cosigner Signature (if applicable): CC: Nicky Knight MD ~ Signed [facility] Work Phone: [phone]) 290-834703-12-2023 History of Present illness Narrative* Gely Jones MD - 12/19/2022 12:56 PM EDT Virtualist Progress Note Triage Call Triage source: Triage Call (Nurse Skirt Maker, ON LICENSE OF [facility] Triage, [facility] Phone Triage) Was patient downgraded (i.e. disposition other than go to the ED was advised)? Yes Mode of contact (phone call, sharing.it, [facility]ZA, [employer] [facility] [employer], [employer], other): PHONE History/Physical Exam: 42 yo F CC headache HPI headache started on Tuesday on seen in ED in [place] where they did a lumbar puncture, CT scan was normal was usual migraine, except headache never went away headache worsened since then worse with movement better if lie flat + ringing in her ears + nausea, dizziness, double vision during call can read with left eye and with right eye hx of migraines got script for migraine but hasn't got it filled taking 400 mg every 6 hours Plan had negative LP and CT in ED so acute bleed etc unlikely symptoms may be post spinal headache and may need dural patch followup with anesthesia or pain management or other HCP who can evaluate and treat a possible spinal headache Nurse Triage Disposition (If call is from [facility], [facility] nurse triage, or an Express Care, the disposition is Go to ED Now): Go to ED Now (or PCP Triage) Virtualist Recommended Disposition: See Provider within 24 hours Signed in as Primary Virtualist, Secondary Virtualist, or [facility] Telehealth provider: Secondary SIGNATURE: Gely Jones MD PATIENT NAME: Joan Foley DATE: December 19, 2022 [facility] Miscellaneous Notes* Telephone Encounter - Dee Hester APRN.LEATHA - 12/19/2022 12:[address] Knight returned previous page to [facility]. Dr. Knight updated. Per Dr. Knight, if patient's symptoms worsen, she should return to the ER for evaluation. Otherwise, she should f/u with the office on Tuesday. Patient aware. Reason for call: patient calling in regarding symptoms of worsening headache, dizziness, nausea, ringing in ears, double vision. Had migraine headache that started approx 4 days ago. Went to [facility] on 12/16/2022. They did CT scan which patient believes was normal and a lumbar puncture that she was told was normal as well. Since this procedure-the headache has worsened along with the development of the other symptoms as mentioned. Unsure if she needs to go back to the hospital? Outcome: second level triage with who advised patient patient follow up with anesthesia/pain management/hcp who can evaluate and treat possible spinal headache. Appointment center unable to schedule with anesthesia or pain management without referral. Patient will call pcp offices when theyopen first this in the morning to further discuss and see if they can further assist her. Patient aware if symptoms worsening to proceed to ED again for evaluation. Reason for Disposition Loss of vision or double vision (Exception: same as prior migraines) Answer Assessment - Initial Assessment Questions 1. LOCATION: entire head 2. ONSET: started 4 days ago 3. PATTERN: constant and worsening 4. SEVERITY: severe 5. RECURRENT SYMPTOM: hx of migraines, but doesn't get them often 6. CAUSE: worried because she went to local ED 3 days ago for headache and lumbar puncture was completed-since this headache has worsened, ringing in hears, nausea, double vision, dizziness. 7. MIGRAINE:yes-not similar to anything she has had in the past 8. HEAD INJURY: no 9. OTHER SYMPTOMS: eye pain/pressure, nausea, double vision, dizziness, ringing in ears. 10. : no Protocols used: [id number] documented in this [facility] Emergency department Note * Jayashree Banerjee RN - 12/16/2022 11:34 AM EST Patient ambulated to the restroom without difficulty, she denies dizziness during ambulation. Warm blanket given for comfort. Will continue to monitor. Call light within reach. Jayashree Banerjee RN 12/16/22 1135 [id number] Emergency [facility] Note* Jayashree Banerjee RN - 12/16/2022 11:34 AM EST Patient ambulated to the restroom without difficulty, she denies dizziness during ambulation. Warm blanket given for comfort. Will continue to monitor. Call light within reach. Jayashree Banerjee RN 12/16/22 1135 * Gerald Pham DO - 12/16/2022 8:36 AM ESTAssociated Order(s): Lumbar Puncture EMERGENCY DEPARTMENT ENCOUNTER Pt Name: Joan Foley Birthdate 1980 Date of evaluation: 12/16/2022 ED Provider: Gerald Pham DO CHIEF COMPLAINT Chief Complaint Patient presents with Headache HISTORY OF PRESENT ILLNESS (Location/Symptom, Timing/Onset, Context/Setting, Quality, Duration, Modifying Factors, Severity) Note limiting factors. I wore appropriate PPE for the entirety of this encounter. HPI Joan Foley is a 42 y.o. female who presents to the emergency department with a headache. Riana has a history of migraine headaches however she gets them infrequently. When she does experience them, she takes oral magnesium which improves her symptoms. States she woke up yesterday morning feeling normal. After being up for approximately 1 hour she developed a severe sudden onset headache.States is the worst headache of life. States that reaches maximal intensity and minutes. States theheadache is diffuse in nature with some associated photophobia. Took her magnesium with no improvement of the headache. Headache persisted all day yesterday, she did not sleep well due to the headache last night, and when she woke up again this morning with headache, she presented to the emergency room for evacuation. Denies any other neck neck stiffness, neurologic deficits including vision loss, confusion, speech abnormality, facial asymmetries, weakness or numbness in her upper or lower extremities. Denies any other chest pain, shortness of breath, fever, chills. Nursing Notes were reviewed. REVIEW OF SYSTEMS 14 systems reviewed and otherwise acutely negative except as in the [place]. PAST MEDICAL HISTORY Past Medical History: Diagnosis Date Anxiety GERD (gastroesophageal reflux disease) diahrea Headache Psychiatric problem post pardem depression Ventricular tachycardia, non-sustained SURGICAL HISTORY Past Surgical History: Procedure Laterality Date ABDOMINAL SURGERY APPENDECTOMY CARPAL TUNNEL RELEASE Right CHOLECYSTECTOMY COLONOSCOPY COLONOSCOPY CYST REMOVAL Bilateral left wrist, right hand ESOPHAGEAL DILATION FRACTURE SURGERY broke left arm x2. fall trampoline and tree HYSTERECTOMY has 1 ovarie LIVER BIOPSY 08/07/2018 TOTAL ABDOMINAL HYSTERECTOMY US GUIDED NEEDLE LIVER BIOPSY 03/23/2022 US GUIDED LIVER BIOPSY PERCUTANEOUS CURRENT MEDICATIONS Discharge Medication List as of 12/16/2022 1:23 PM CONTINUE these medications which have NOT CHANGED Details metoprolol tartrate (Lopressor) 25 MG tablet Take 25 mg by mouth in the morning., Starting 10/25/2022, Historical Med ALLERGIES Hydromorphone, Latex, Penicillins, Varenicline, Acetaminophen, Iodides, Morphine, Propoxyphene, andMeperidine FAMILY HISTORY Family History Adopted: Yes SOCIAL HISTORY Social History Socioeconomic History Marital status: Tobacco Use Smoking status: Former Packs/day: 0.50 Types: Cigarettes Start date: 04/09/2007 Smokeless tobacco: Never Substance and Sexual Activity Alcohol use: Yes Alcohol/week: 6.0 - 7.0 standard drinks Drug use: No SCREENINGS PHYSICAL EXAM ED Triage Vitals [12/16/22 0854] Temp Heart Rate Resp BP 37.1 C (98.8 F) 87 16 (!) 147/101 SpO2 Temp Source Heart Rate Source Patient Position 100 % Oral Monitor -- BP Location FiO2 (%) -- -- CONSTITUTIONAL: AOx4, no apparent distress, appears stated age HEAD: normocephalic, atraumatic EYES: PERRL, EOMI ENT: moist mucous membranes, uvula midline NECK: supple, symmetric, full range of motion of the neck and back BACK: symmetric LUNGS: clear to auscultation bilaterally CARDIOVASCULAR: regular rate and rhythm, no murmurs, rubs or gallops ABDOMEN: soft, non-tender, non-distended with normal active bowel sounds : deferred NEUROLOGIC: MAEx4, no focal sensory or motor deficits, NIH of 0 MUSCULOSKELETAL: no clubbing, cyanosis or edema SKIN: no exposed rash DIAGNOSTIC RESULTS Procedures/EKG: EKG was reviewed by myself. Physician EKG interpretation can be found in [facility] RADIOLOGY (Per Emergency Physician): Interpretation per the Radiologist below, if available at the time of this note: CT head wo IV contrast Final Result Normal head CT. Report Dictated on Electronically Signed By: Joes Sarabia Electronically Signed Date/Time: 12/16/2022 10:07 AM EST ED BEDSIDE ULTRASOUND: Performed by ED Physician - none LABS: Labs Reviewed PROTHROMBIN TIME - Abnormal Result Value PROTHROMBIN TIME 9.9 INR <0.9 (*) CBC WITH AUTO DIFFERENTIAL - Abnormal Auto WBC 9.6 RBC 4.35 Hemoglobin 14.4 Hematocrit 44.3 MCV 101.8 (*) MCH 33.1 MCHC 32.5 RDW 12.1 Platelets 225 MPV 10.4 Neutrophils Relative 68.0 Lymphocytes Relative 22.5 Monocytes Relative 4.9 Eosinophils Relative 2.8 Basophils Relative 0.7 Immature Grans % 1.1 (*) Neutrophils Absolute 6.5 Lymphocytes Absolute 2.2 Monocytes Absolute 0.5 Eosinophils Absolute 0.3 Basophils Absolute 0.1 Immature Grans Absolute 0.1 (*) BASIC METABOLIC PANEL - Abnormal SODIUM 137 POTASSIUM 4.3 CHLORIDE 108 (*) CARBON DIOXIDE 26 UREA NITROGEN 14 CREATININE 0.80 GLUCOSE 94 CALCIUM 9.4 ANION GAP 4 eGFR >90.0 PROTEIN, CSF - Abnormal PROTEIN, CSF 66.2 (*) APPEARANCE Clear and Colorless SUPERNATANT Clear and Colorless APTT - Normal APTT 25.7 Narrative: NOTE: The therapeutic time for Heparin anticoagulation, based on Xa activity inhibition, is an APTTof 46-80 seconds. COMPLETE URINALYSIS - Normal Color, Urine Light Yellow Clarity, Urine Clear pH, Urine 5.0 Leukocytes, Urine Negative Nitrite, Urine Negative Protein, Urine Negative Glucose, Urine Normal Bilirubin, Urine Negative Ketones, Urine Negative Urobilinogen, Urine Normal Blood, Urine Negative SPECIFIC GRAVITY OF URINE (NUMERIC) 1.022 CULTURE, AEROBIC BACTERIA WITH GRAM STAIN CULTURE ANAEROBIC GRAM STAIN HCG QUALITATIVE URINE HCG,URINE QUAL Negative Narrative: is the most common reason for HCG in urine, although choriocarcinoma, hydatidiform mole, and certain nontrophoblastic malignancies also result in detectable urinary HCG levels. Sensitivity = 20mIU/mL. COMPLETE URINALYSIS WITH REFLEX TO CULTURE Narrative: The following orders were created for panel order Urinalysis complete with reflex to Culture. Procedure Abnormality Status --------- ------ Complete Urinalysis[[id number]] Normal Final result Please view results for these tests on the individual orders. GLUCOSE, CSF GLUCOSE, CSF 51 APPEARANCE Clear and Colorless SUPERNATANT Clear and Colorless CSF CELL COUNT WITH DIFFERENTIAL Narrative: The following orders were created for panel order CSF cell count with differential. Procedure Abnormality Status --------- ------ CSF Cell Count[[id number]] Final result Please view results for these tests on the individual orders. SPINAL FLUID CELL COUNT Tube Number, CSF Tube 3 Appearance, CSF Clear and Colorless Appearance, Supernatant CSF Clear and Colorless WBC, CSF 3 RBC, CSF 1 All other labs were within normal range or not returned as of this dictation. EMERGENCY DEPARTMENT COURSE and DIFFERENTIAL DIAGNOSIS/MDM: Vitals: Vitals: 12/16/22 0854 12/16/22 1048 12/16/22 1239 12/16/22 1351 BP: (!) 147/101 139/80 (!) 128/90 129/86 Pulse: 87 63 84 70 Resp: 16 16 Temp: 37.1 C (98.8 F) TempSrc: Oral SpO2: 100% 99% 97% 96% Weight: 80.7 kg (178 lb) Height: 1.626 m (5' 4) EMERGENCY DEPARTMENT COURSE and DIFFERENTIAL DIAGNOSIS/MDM: Vitals: Vitals: 12/16/22 0854 12/16/22 1048 12/16/22 1239 12/16/22 1351 BP: (!) 147/101 139/80 (!) 128/90 129/86 Pulse: 87 63 84 70 Resp: 16 16 16 Temp: 37.1 C (98.8 F) TempSrc: Oral SpO2: 100% 99% 97% 96% Weight: 80.7 kg (178 lb) Height: 1.626 m (5' 4) The patient presented with a chief complaint of headache. The differential diagnosis associated with this patient's presentation includes subarachnoid hemorrhage, meningitis, migraine headache, tension headache, other headache. Our workup consisted of ordering/reviewing CT scan of the head due to the change in character with plans for a lumbar puncture if the CT head was normal. CT head was ultimately read to be normal patient was consented for lumbar puncture because of a change in character from her typical migraine headache, fact that it reaches maximum intensity and minutes yesterday morning, affected is the worst headache of her life. Patient was given Compazine 10 mg and Benadryl 25 mg and 1 L of fluids with no improvement of her headache. Coagulation studies normal. CBC, BMP also with no acute process. Patient is not . Lumbar puncture studies now pending. We will add additional medications including 10 mg of Reglan and 10 mg of Decadron, 1 g of magnesium sulfate is still transfusing. While lumbar puncture results are pending, the patient states her headache is nearly resolved and she would like to be discharged. I informed her that the lumbar puncture results are still pending and that she should wait for the final results for final disposition. She is in agreements. Lumbar puncture results show 1 red blood cell, 3 white blood cells, clear in color, 66.2 protein, 51 of glucose. Seemingly low suspicion for meningitis or infectious process, low suspicion for subarachnoid hemorrhage with only 1 red blood cell. Symptoms likely related to migraine. Symptoms have nearly resolved she is eager to be discharged home stressed importance for close outpatient PCP follow-up. Patient did prescription for Fioricet. All questions answered but okay to be discharged. Diagnoses as of 12/16/22 1416 Migraine without status migrainosus, not intractable, unspecified migraine type Diagnostic tests considered but not performed: External records reviewed: none Diagnostics interpreted by me: none Discussions with other clinicians: none Chronic conditions impacting care: none Social determinants of health affecting care: none ED Medications managed: Medications prochlorperazine (Compazine) injection 10 mg (10 mg IntraVENous Given 12/16/22 0930) diphenhydrAMINE (BENADryl) injection 25 mg (25 mg IntraVENous Given 12/16/22 0927) sodium chloride 0.9 % bolus 1,000 mL (0 mL IntraVENous Stopped 12/16/22 1016) magnesium sulfate IVPB premix 1,000 mg (0 mg IntraVENous Stopped 12/16/22 1038) metoclopramide (Reglan) injection 10 mg (10 mg IntraVENous Given 12/16/22 1054) dexAMETHasone (Decadron) injection 10 mg (10 mg IntraVENous Given 12/16/22 1100) CONSULTS: None PROCEDURES: Unless otherwise noted below, none Lumbar Puncture Performed by: Gerald Pham DO Authorized by: Gerald Pham DO Consent: Consent obtained: Written Consent given by: Patient Risks, benefits, and alternatives were discussed: yes Risks discussed: Bleeding, infection, nerve damage, pain and headache Alternatives discussed: No treatment and alternative treatment Taylor protocol: Procedure explained and questions answered to patient or proxy's satisfaction: yes Relevant documents present and verified: yes Test results available: yes Imaging studies available: yes Patient identity confirmed: Arm band Pre-procedure details: Procedure purpose: Diagnostic Preparation: Patient was prepped and draped in usual sterile fashion Anesthesia: Anesthesia method: Local infiltration Local anesthetic: Lidocaine 1% w/o epi Procedure details: Lumbar space: L4-L5 interspace Patient position: Sitting Needle gauge: 22 Needle type: Spinal needle - Quincke tip Needle length (in): 3.5 Number of attempts: 1 Fluid appearance: Clear Tubes of fluid: 4 Total volume (ml): 6 Post-procedure details: Puncture site: Direct pressure applied Procedure completion: Tolerated Patients symptoms are consistent with sepsis, severe sepsis, or septic shock (If yes use .sepsiscoremeasure): FINAL IMPRESSION 1. Migraine without status migrainosus, not intractable, unspecified migraine type DISPOSITION/PLAN dc PATIENT REFERRED TO: Nicky Knight MD [address] [facility] [address] Schedule an appointment as soon as possible for a visit DISCHARGE MEDICATIONS: Discharge Medication List as of 12/16/2022 1:23 PM START taking these medications Details ymtnsavvyi-tfuskagbubvni-mbwytmzb 50-325-40 MG tablet Take 1-2 tablets by mouth every 6 hours as needed for headaches for up to 5 days., Starting Bernarda 12/16/2022, Until Tue12/21/2022 at 2359, Normal (Comment: Please note this report has been produced using speech recognition software and may contain errors related to that system including errors in grammar, punctuation, and spelling, as well as words and phrases that may be inappropriate. If there are any questions or concerns please feel freeto contact the dictating provider for clarification.) Gerald Pham DO (electronically signed) Emergency Medicine Provider Gerald Pham DO 12/16/22 1418 * Joselin Jimenez RN - 12/16/2022 8:36 AM EST Patient to room 3 with c/o headache since yesterday. Patient reports nausea and dizziness. Patient took Maxalt last night at 2030 without relief. V/S obtained, call light within reach. documented in this [facility]03-09-[facility]23 Emergency department Triage note* Joselin Jimenez RN - 12/16/2022 8:36 AM EST Patient to room 3 with c/o headache since yesterday. Patient reports nausea and dizziness. Patient took Maxalt last night at 2030 without relief. V/S obtained, call light within reach. [id number] Phys[facility] Emergency department Note* Gerald Pham DO - 12/16/2022 8:36 AM ESTAssociated Order(s): Lumbar Puncture EMERGENCY DEPARTMENT ENCOUNTER Pt Name: Joan Foley Birthdate 1980 Date of evaluation: 12/16/2022 ED Provider: Gerald Pham DO CHIEF COMPLAINT Chief Complaint Patient presents with Headache HISTORY OF PRESENT ILLNESS (Location/Symptom, Timing/Onset, Context/Setting, Quality, Duration, Modifying Factors, Severity) Note limiting factors. I wore appropriate PPE for the entirety of this encounter. HPI Joan Foley is a 42 y.o. female who presents to the emergency department with a headache. Statesshmarlo has a history of migraine headaches however she gets them infrequently. When she does experience them, she takes oral magnesium which improves her symptoms. States she woke up yesterday morning feeling normal. After being up for approximately 1 hour she developed a severe sudden onset headache.States is the worst headache of life. States that reaches maximal intensity and minutes. States theheadache is diffuse in nature with some associated photophobia. Took her magnesium with no improvement of the headache. Headache persisted all day yesterday, she did not sleep well due to the headache last night, and when she woke up again this morning with headache, she presented to the emergency room for evacuation. Denies any other neck neck stiffness, neurologic deficits including vision loss, confusion, speech abnormality, facial asymmetries, weakness or numbness in her upper or lower extremities. Denies any other chest pain, shortness of breath, fever, chills. Nursing Notes were reviewed. REVIEW OF SYSTEMS 14 systems reviewed and otherwise acutely negative except as in the [place]. PAST MEDICAL HISTORY Past Medical History: Diagnosis Date Anxiety GERD (gastroesophageal reflux disease) diahrea Headache Psychiatric problem post pardem depression Ventricular tachycardia, non-sustained SURGICAL HISTORY Past Surgical History: Procedure Laterality Date ABDOMINAL SURGERY APPENDECTOMY CARPAL TUNNEL RELEASE Right CHOLECYSTECTOMY COLONOSCOPY COLONOSCOPY CYST REMOVAL Bilateral left wrist, right hand ESOPHAGEAL DILATION FRACTURE SURGERY broke left arm x2. fall trampoline and tree HYSTERECTOMY has 1 ovarie LIVER BIOPSY 08/07/2018 TOTAL ABDOMINAL HYSTERECTOMY US GUIDED NEEDLE LIVER BIOPSY 03/23/2022 US GUIDED LIVER BIOPSY PERCUTANEOUS CURRENT MEDICATIONS Discharge Medication List as of 12/16/2022 1:23 PM CONTINUE these medications which have NOT CHANGED Details metoprolol tartrate (Lopressor) 25 MG tablet Take 25 mg by mouth in the morning., Starting 10/25/2022, Historical Med ALLERGIES Hydromorphone, Latex, Penicillins, Varenicline, Acetaminophen, Iodides, Morphine, Propoxyphene, andMeperidine FAMILY HISTORY Family History Adopted: Yes SOCIAL HISTORY Social History Socioeconomic History Marital status: Tobacco Use Smoking status: Former Packs/day: 0.50 Types: Cigarettes Start date: 04/09/2007 Smokeless tobacco: Never Substance and Sexual Activity Alcohol use: Yes Alcohol/week: 6.0 - 7.0 standard drinks Drug use: No SCREENINGS PHYSICAL EXAM ED Triage Vitals [12/16/22 0854] Temp Heart Rate Resp BP 37.1 C (98.8 F) 87 16 (!) 147/101 SpO2 Temp Source Heart Rate Source Patient Position 100 % Oral Monitor -- BP Location FiO2 (%) -- -- CONSTITUTIONAL: AOx4, no apparent distress, appears stated age HEAD: normocephalic, atraumatic EYES: PERRL, EOMI ENT: moist mucous membranes, uvula midline NECK: supple, symmetric, full range of motion of the neck and back BACK: symmetric LUNGS: clear to auscultation bilaterally CARDIOVASCULAR: regular rate and rhythm, no murmurs, rubs or gallops ABDOMEN: soft, non-tender, non-distended with normal active bowel sounds : deferred NEUROLOGIC: MAEx4, no focal sensory or motor deficits, NIH of 0 MUSCULOSKELETAL: no clubbing, cyanosis or edema SKIN: no exposed rash DIAGNOSTIC RESULTS Procedures/EKG: EKG was reviewed by myself. Physician EKG interpretation can be found in [facility] RADIOLOGY (Per Emergency Physician): Interpretation per the Radiologist below, if available at the time of this note: CT head wo IV contrast Final Result Normal head CT. Report Dictated on Electronically Signed By: Jose Sarabia Electronically Signed Date/Time: 12/16/2022 10:07 AM EST ED BEDSIDE ULTRASOUND: Performed by ED Physician - none LABS: Labs Reviewed PROTHROMBIN TIME - Abnormal Result Value PROTHROMBIN TIME 9.9 INR <0.9 (*) CBC WITH AUTO DIFFERENTIAL - Abnormal Auto WBC 9.6 RBC 4.35 Hemoglobin 14.4 Hematocrit 44.3 MCV 101.8 (*) MCH 33.1 MCHC 32.5 RDW 12.1 Platelets 225 MPV 10.4 Neutrophils Relative 68.0 Lymphocytes Relative 22.5 Monocytes Relative 4.9 Eosinophils Relative 2.8 Basophils Relative 0.7 Immature Grans % 1.1 (*) Neutrophils Absolute 6.5 Lymphocytes Absolute 2.2 Monocytes Absolute 0.5 Eosinophils Absolute 0.3 Basophils Absolute 0.1 Immature Grans Absolute 0.1 (*) BASIC METABOLIC PANEL - Abnormal SODIUM 137 POTASSIUM 4.3 CHLORIDE 108 (*) CARBON DIOXIDE 26 UREA NITROGEN 14 CREATININE 0.80 GLUCOSE 94 CALCIUM 9.4 ANION GAP 4 eGFR >90.0 PROTEIN, CSF - Abnormal PROTEIN, CSF 66.2 (*) APPEARANCE Clear and Colorless SUPERNATANT Clear and Colorless APTT - Normal APTT 25.7 Narrative: NOTE: The therapeutic time for Heparin anticoagulation, based on Xa activity inhibition, is an APTTof 46-80 seconds. COMPLETE URINALYSIS - Normal Color, Urine Light Yellow Clarity, Urine Clear pH, Urine 5.0 Leukocytes, Urine Negative Nitrite, Urine Negative Protein, Urine Negative Glucose, Urine Normal Bilirubin, Urine Negative Ketones, Urine Negative Urobilinogen, Urine Normal Blood, Urine Negative SPECIFIC GRAVITY OF URINE (NUMERIC) 1.022 CULTURE, AEROBIC BACTERIA WITH GRAM STAIN CULTURE ANAEROBIC GRAM STAIN HCG QUALITATIVE URINE HCG,URINE QUAL Negative Narrative: is the most common reason for HCG in urine, although choriocarcinoma, hydatidiform mole, and certain nontrophoblastic malignancies also result in detectable urinary HCG levels. Sensitivity = 20mIU/mL. COMPLETE URINALYSIS WITH REFLEX TO CULTURE Narrative: The following orders were created for panel order Urinalysis complete with reflex to Culture. Procedure Abnormality Status --------- ------ Complete Urinalysis[[id number]] Normal Final result Please view results for these tests on the individual orders. GLUCOSE, CSF GLUCOSE, CSF 51 APPEARANCE Clear and Colorless SUPERNATANT Clear and Colorless CSF CELL COUNT WITH DIFFERENTIAL Narrative: The following orders were created for panel order CSF cell count with differential. Procedure Abnormality Status --------- ------ CSF Cell Count[[id number]] Final result Please view results for these tests on the individual orders. SPINAL FLUID CELL COUNT Tube Number, CSF Tube 3 Appearance, CSF Clear and Colorless Appearance, Supernatant CSF Clear and Colorless WBC, CSF 3 RBC, CSF 1 All other labs were within normal range or not returned as of this dictation. EMERGENCY DEPARTMENT COURSE and DIFFERENTIAL DIAGNOSIS/MDM: Vitals: Vitals: 12/16/22 0854 12/16/22 1048 12/16/22 1239 12/16/22 1351 BP: (!) 147/101 139/80 (!) 128/90 129/86 Pulse: 87 63 84 70 Resp: 16 14 16 16 Temp: 37.1 C (98.8 F) TempSrc: Oral SpO2: 100% 99% 97% 96% Weight: 80.7 kg (178 lb) Height: 1.626 m (5' 4) EMERGENCY DEPARTMENT COURSE and DIFFERENTIAL DIAGNOSIS/MDM: Vitals: Vitals: 12/16/22 0854 12/16/22 1048 12/16/22 1239 12/16/22 1351 BP: (!) 147/101 139/80 (!) 128/90 129/86 Pulse: 87 63 84 70 Resp: 16 14 16 16 Temp: 37.1 C (98.8 F) TempSrc: Oral SpO2: 100% 99% 97% 96% Weight: 80.7 kg (178 lb) Height: 1.626 m (5' 4) The patient presented with a chief complaint of headache. The differential diagnosis associated with this patient's presentation includes subarachnoid hemorrhage, meningitis, migraine headache, tension headache, other headache. Our workup consisted of ordering/reviewing CT scan of the head due to the change in character with plans for a lumbar puncture if the CT head was normal. CT head was ultimately read to be normal patient was consented for lumbar puncture because of a change in character from her typical migraine headache, fact that it reaches maximum intensity and minutes yesterday morning, affected is the worst headache of her life. Patient was given Compazine 10 mg and Benadryl 25 mg and 1 L of fluids with no improvement of her headache. Coagulation studies normal. CBC, BMP also with no acute process. Patient is not . Lumbar puncture studies now pending. We will add additional medications including 10 mg of Reglan and 10 mg of Decadron, 1 g of magnesium sulfate is still transfusing. While lumbar puncture results are pending, the patient states her headache is nearly resolved and she would like to be discharged. I informed her that the lumbar puncture results are still pending and that she should wait for the final results for final disposition. She is in agreements. Lumbar puncture results show 1 red blood cell, 3 white blood cells, clear in color, 66.2 protein, 51 of glucose. Seemingly low suspicion for meningitis or infectious process, low suspicion for subarachnoid hemorrhage with only 1 red blood cell. Symptoms likely related to migraine. Symptoms have nearly resolved she is eager to be discharged home stressed importance for close outpatient PCP follow-up. Patient did prescription for Fioricet. All questions answered but okay to be discharged. Diagnoses as of 12/16/22 1416 Migraine without status migrainosus, not intractable, unspecified migraine type Diagnostic tests considered but not performed: External records reviewed: none Diagnostics interpreted by me: none Discussions with other clinicians: none Chronic conditions impacting care: none Social determinants of health affecting care: none ED Medications managed: Medications prochlorperazine (Compazine) injection 10 mg (10 mg IntraVENous Given 12/16/22 0930) diphenhydrAMINE (BENADryl) injection 25 mg (25 mg IntraVENous Given 12/16/22 0927) sodium chloride 0.9 % bolus 1,000 mL (0 mL IntraVENous Stopped 12/16/22 1016) magnesium sulfate IVPB premix 1,000 mg (0 mg IntraVENous Stopped 12/16/22 1038) metoclopramide (Reglan) injection 10 mg (10 mg IntraVENous Given 12/16/22 1054) dexAMETHasone (Decadron) injection 10 mg (10 mg IntraVENous Given 12/16/22 1100) CONSULTS: None PROCEDURES: Unless otherwise noted below, none Lumbar Puncture Performed by: Gerald Pham DO Authorized by: Gerald Pham DO Consent: Consent obtained: Written Consent given by: Patient Risks, benefits, and alternatives were discussed: yes Risks discussed: Bleeding, infection, nerve damage, pain and headache Alternatives discussed: No treatment and alternative treatment Taylor protocol: Procedure explained and questions answered to patient or proxy's satisfaction: yes Relevant documents present and verified: yes Test results available: yes Imaging studies available: yes Patient identity confirmed: Arm band Pre-procedure details: Procedure purpose: Diagnostic Preparation: Patient was prepped and draped in usual sterile fashion Anesthesia: Anesthesia method: Local infiltration Local anesthetic: Lidocaine 1% w/o epi Procedure details: Lumbar space: L4-L5 interspace Patient position: Sitting Needle gauge: 22 Needle type: Spinal needle - Quincke tip Needle length (in): 3.5 Number of attempts: 1 Fluid appearance: Clear Tubes of fluid: 4 Total volume (ml): 6 Post-procedure details: Puncture site: Direct pressure applied Procedure completion: Tolerated Patients symptoms are consistent with sepsis, severe sepsis, or septic shock (If yes use .sepsiscoremeasure): FINAL IMPRESSION 1. Migraine without status migrainosus, not intractable, unspecified migraine type DISPOSITION/PLAN dc PATIENT REFERRED TO: Nicky Knight MD [address] [facility] [phone] Schedule an appointment as soon as possible for a visit DISCHARGE MEDICATIONS: Discharge Medication List as of 12/16/2022 1:23 PM START taking these medications Details moxhtvvynf-nxqhwhjjpuzcu-iskopkcr 50-325-40 MG tablet Take 1-2 tablets by mouth every 6 hours as needed for headaches for up to 5 days., Starting Bernarda 12/16/2022, Until Tue12/21/2022 at 2359, Normal (Comment: Please note this report has been produced using speech recognition software and may contain errors related to that system including errors in grammar, punctuation, and spelling, as well as words and phrases that may be inappropriate. If there are any questions or concerns please feel freeto contact the dictating provider for clarification.) Gerald Pham DO (electronically signed) Emergency Medicine Provider Gerald Pham DO 12/16/22 1418 [id number] History of Present illness Narrative* Perry Ballard PA-C - 11/29/2022 12:50 PM EST This note was created using [employer]. Subjective Joan Foley is a 42 year old female. HPI Patient presents with left third finger pain over the past 2 weeks. She just woke up with it 1 day swollen and painful to move. Denies any known injury. 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 No fever or chills. No open wound of the finger. No known arthritis. Review of Systems Musculoskeletal: Left hand third finger pain All other systems reviewed and are negative. PAST MEDICAL HISTORY Diagnosis Date Abdominal pain Anemia Dyspepsia Endometriosis Fatty liver Hypertension IBS (irritable bowel syndrome) Liver mass Post-cholecystectomy syndrome Renal disorder MASS DISCOVERED 12/2018 RUQ pain 06/10/14 Vitamin D deficiency Current Outpatient Medications Medication Sig Dispense Refill metoprolol tartrate, short acting, (LOPRESSOR) 25 mg tablet Take 1 tablet by mouth once daily. As directed 30 tablet 11 omeprazole (PRILOSEC) 40 mg capsule Take 1 capsule by mouth once daily. (Patient not taking: Reported on 10/25/2022) rizatriptan (MAXALT) 10 mg tablet Take at onset of headache one pill, may repeat in 2 hours, not more than 2 pills a day (Patient not taking: Reported on 10/25/2022) 20 tablet 2 No current facility-administered medications for this visit. PAST SURGICAL HISTORY Procedure Laterality Date COLONOSCOPY 03/15/2022 COLONOSCOPY W/BIOPSY 2013 CYST/MOLE REMOVAL Bilateral Left wrist, right hand EGD 03/15/2022 EGD DILATION ENDOSCOPY PROC 2013 bxs LAPS SURG CHOLECYSTECTOMY W/CHOLANGIOGRAPHY 04/24/2014 Normal [facility] LIVER SURGERY HX 10/2018 ABLATION FOR MASS PAST SURGICAL HISTORY OF appendectomy PAST SURGICAL HISTORY OF dental procedures PAST SURGICAL HISTORY OF diagnostic laparoscopy PAST SURGICAL HISTORY OF Carpal tunnel release, right PAST SURGICAL HISTORY OF as a child removed a piece of lead from skull TOTAL ABDOMINAL HYSTERECT W/WO RMVL TUBE OVARY 2004 Hysterectomy, AMANDA FAMILY HISTORY Adopted: Yes Problem Relation Age of Onset other (adopted) Other Social History Tobacco Use Smoking status: Former Packs/day: 0.50 Years: 11.00 Pack years: 5.50 Types: Cigarettes Smokeless tobacco: Never Tobacco comments: quit in Nov 2020 Vaping Use Vaping Use: Never used Substance Use Topics Alcohol use: Yes Comment: occ Drug use: No Objective BP 128/92 Pulse 106 Temp 36.8 C (98.3 F) Resp 18 Wt 82.3 kg (181 lb 6.4 oz) SpO2 98% BMI (P) 31.14 kg/m Physical Exam Vitals reviewed. Constitutional: Appearance: Normal appearance. HENT: Head: Normocephalic and atraumatic. Musculoskeletal: Comments: Exam of the left third digit reveals no swelling bruising or erythema. She has pain with flexion and extension of the PIP and MCP. Normal strength against resistance on flexion extension. Some crepitus noted when doing flexion extension over the PIP. Normal distal sensation. Cap refill brisk less than 2 seconds. Neurological: Mental Status: She is alert. Assessment and Plan ASSESSMENT/PLAN: 1. Finger pain, left - ICD9: 729.5, ICD10: M79.645 Likely tendinitis. X-rays were unremarkable. Recommended piotr taping over the next 2 weeks. Rest, ice, naproxen. If not improving would recommend follow-up with PCP. Patient agreeable. - XR DIGIT GENERAL 3V FRONTAL/LAT/OBL LEFT Perry Ballard PA-C documented [place] encounterAmy [place] [id number] History of Present illness Narrative* Glenys Cortez RT(R) - 11/29/2022 12:40 PM EST Radiology Service Progress Note PATIENT NAME: Joan Foley DATE OF SERVICE: November 29, 2022 TIME: 12:36 PM PATIENT IDENTITY VERIFICATION COMPLETED USING TWO (2) IDENTIFIERS: Name and Date of confirmedby patient verbally. FALL SCREENING: Has the patient had 2 falls in the last year or 1 fall with injury or currently using an Ambulatory Assistive Device (Walker, Cane, Wheelchair, Crutches, etc.)? No PATIENT GENDER DATA: Female. status: : No status: NO. PATIENT RELEVANT IMPLANT DATA REVIEWED: Yes RADIOLOGY DEPARTMENT: General X-ray: Exam(s) Completed: Upper Extremity X- Ray(s): Fingers/Thumb, left middle PERIPHERAL IV DATA: Not applicable SIGNED BY: RT Belen(R) November 29, 2022 12:36 PM documented in [facility]23 Miscellaneous Notes* Telephone Encounter - Lindsay Reid LPN - 11/25/2022 10:24 AM EST Patient's request for medication is as follows: Requested Prescriptions Refused Prescriptions Disp Refills metoprolol tartrate, short acting, (LOPRESSOR) 25 mg tablet [Pharmacy Med Name: METOPROLOL [id number] MG TAB] 30 tablet 11 Sig: TAKE 1 TABLET BY MOUTH ONCE DAILY DIRECTED Refused By: LINDSAY REID Reason for Refusal: Patient has requested refill too soon Refilled 10/25/2022 for 30 tabs and [address] Prescription(s) as above. Please process accordingly. Lindsay Reid LPN documented in this encounterC[facility]01-16-2023 Instructions* Patient Instructions* Jose Hayes MD - 10/25/2022 4:01 PM EST We will try Metoprolol half a pill once per day for symptoms of chest pain documented in this encounterCrystal [facility]01-16-2023 History of Present illness Narrative* Jose Haeys MD - 10/25/2022 3:40 PM EST Images from the original note were not included. [facility] SECTION OF REGIONAL CARDIOLOGY Cardiology ([facility]) [address] [facility] [id number] OUTPATIENT VISIT DATE 10/25/2022 PRIMARY CARE PHYSICIAN: Nicky Knight [address] [place] [address] HISTORY OF PRESENT ILLNESS: Ms. Foley is a 42 year old woman with a history of hypertension, migraine headaches, palpitations,tachycardia and a longstanding history of chest pain. She is undergone extensive evaluation for chest pain in the past. Including beta-blockers and diltiazem. She has been on diltiazem most recently.She stopped the medication and noted that she was feeling much better. She has had some improvementin her chest pain syndrome with weight loss. She has not had palpitations but describes heart ratesthat are typically about 130 beats a minute with minimal activity. She has not had symptoms concerning for CHF including PND, orthopnea, lower extremity edema. PAST MEDICAL HISTORY Diagnosis Date Abdominal pain Anemia Dyspepsia Endometriosis Fatty liver Hypertension IBS (irritable bowel syndrome) Liver mass Post-cholecystectomy syndrome Renal disorder MASS DISCOVERED 12/2018 RUQ pain 06/10/14 Vitamin D deficiency PAST SURGICAL HISTORY Procedure Laterality Date COLONOSCOPY 03/15/2022 COLONOSCOPY W/BIOPSY 2013 CYST/MOLE REMOVAL Bilateral Left wrist, right hand EGD 03/15/2022 EGD DILATION ENDOSCOPY PROC 2013 bxs LAPS SURG CHOLECYSTECTOMY W/CHOLANGIOGRAPHY 04/24/2014 Normal [facility] LIVER SURGERY HX 10/2018 ABLATION FOR MASS PAST SURGICAL HISTORY OF appendectomy PAST SURGICAL HISTORY OF dental procedures PAST SURGICAL HISTORY OF diagnostic laparoscopy PAST SURGICAL HISTORY OF Carpal tunnel release, right PAST SURGICAL HISTORY OF as a child removed a piece of lead from skull TOTAL ABDOMINAL HYSTERECT W/WO RMVL TUBE OVARY 2004 Hysterectomy, AMANDA SOCIAL HISTORY Social History Tobacco Use Smoking status: Former Packs/day: 0.50 Years: 11.00 Pack years: 5.50 Types: Cigarettes Smokeless tobacco: Never Tobacco comments: quit in Nov 2020 Vaping Use Vaping Use: Never used Substance Use Topics Alcohol use: Yes Comment: occ Drug use: No FAMILY HISTORY Adopted: Yes Problem Relation Age of Onset other (adopted) Other ALLERGIES: ALLERGIES Allergen Reactions Penicillins Hives, Anaphylaxis, Shortness of Breath Chantix [Vareniclin* Other: See Comments Mood changes (irritability), flu like symptoms, body aching Contrast Dye [Iodin* Hives, Swelling Demerol [Meperidine* Other: See Comments Nausea Latex Other: See Comments my skin starts pealing off Morphine Hives, Itching Propoxyphene Intolerance MEDICATIONS: metoprolol tartrate, short acting, (LOPRESSOR) 25 mg tablet Take 1 tablet by mouth once daily. As directed omeprazole (PRILOSEC) 40 mg capsule Take 1 capsule by mouth once daily. (Patient not taking: Reported on 10/25/2022) rizatriptan (MAXALT) 10 mg tablet Take at onset of headache one pill, may repeat in 2 hours, not more than 2 pills a day (Patient not taking: Reported on 10/25/2022) REVIEW OF SYSTEMS: Review of Systems Constitutional: Negative for chills, fever, malaise/fatigue and weight loss. HENT: Negative for hearing loss and sore throat. Eyes: Negative for blurred vision and double vision. Respiratory: Negative. Cardiovascular: Positive for palpitations. Genitourinary: Negative for dysuria, frequency, hematuria and urgency. Musculoskeletal: Negative. Skin: Negative. Neurological: Negative for dizziness, seizures, loss of consciousness, weakness and headaches. Endo/Heme/Allergies: Negative for environmental allergies. Does not bruise/bleed easily. Psychiatric/Behavioral: Negative for depression. PHYSICAL EXAMINATION: BP (P) 144/98 Pulse (P) 97 Resp (P) 12 Ht (P) 162.6 cm (5' 4) Wt (P) 81.3 kg (179 lb 3.2 oz) SpO2 (P) 100% BMI (P) 30.76 kg/m General: Pleasant woman sitting comfortable no apparent distress. She is alert and oriented x3 HEENT: Carotid upstrokes brisk without bruits there is no JVD appreciated. Thyroid is palpable not large. There is no cervical lymphadenopathy. Pulmonary: Lungs are clear no rales wheezes rhonchi Cardiovascular: Normal S1-S2 heart rates are at the upper limits of normal. No murmurs rubs appreciated. Extremities: Warm well perfused no cyanosis clubbing or edema 2+ distal pulses. CARDIOVASCULAR MEDICINE TESTING: Echocardiogram 08/15/2020: - The left ventricle is small. Left ventricular systolic function is normal. EF = 65 5% (2D 4-ch.) Normal left ventricular diastolic function. - The right ventricle is normal in size. Right ventricular systolic function is normal. - There are no significant valvular abnormalities. - The patient has not had a prior CC echocardiographic exam for comparison. Event monitor 06/20/2020-07/03/2020: Minimum heart rate 50 bpm maximum heart rate 197 bpm with an average of 98 bpm. Predominant underlying rhythm was sinus rhythm 1 run of ventricular tachycardia occurring lasting 6 beats with a maximal heart rate 197 bpm Isolated SVEs were rare (less than 1%) Lexiscan Cardiolite stress test 04/01/2020 Rest and stress nuclear imaging demonstrate uniform uptake. No evidence of myocardial ischemia or scar Gated study reports in the left ventricular ejection fraction of 69% Cardiac catheterization 06/02/2017: Angiographically normal coronary arteries right coronary dominant system. Echocardiogram 05/12/2017: Left ventricular systolic function is normal. The estimated ejection fraction is 60%. Mild 1+ mitral valve insufficiency Mild tricuspid valve insufficiency Right ventricular systolic pressure estimated to be 26 mmHg IMPRESSION: Ms. Foley is a 42 year old woman with a history of atypical chest pain possibly related to vasospastic or microvascular angina, hypertension, and prior smoking history who presents for follow-up of palpitations. PLAN AND RECOMMENDATIONS: 1. 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 We will attempt a trial of metoprolol 12.5 mg once daily as needed for symptomsof severe chest pain. - METOPROLOL TARTRATE 25 MG TABLET 2. Nonsustained ventricular tachycardia - ICD9: 427.1, ICD10: I47.29 3. Primary hypertension - ICD9: 401.9, ICD10: I10 Difficult to control due to medication intolerance. I recommended a trial of amlodipine. Patient has declined stating she feels better off medications. I discussed dietary modification and increase exercise for further improvements in hypertension management. Jose Hayes MD documented in this encounterC[facility]12-28-2022 History of Present illness Narrative* Carole Moore, [employer]ANT MAINTAINER.ECOMMERCE MANAGER - 10/06/2022 4:49 PM EST CC Patient presents with: Abdominal Pain: Abdominal pain on R side, nausea and diarrhea HPI Joan Foley is a 42 year old female who presents with abdominal pain for since this morning. Location: RUQ with radiation to right flank and right abdomen she woke suddenly with at 530 this morning. Described as: dull squeezing but becomes sharp with movement. Aggravating factors: movement Alleviating factors: none, tried hot shower, heating pad, and ibuprofen. Associated symptoms: abdominal discomfort, diarrhea, nausea, vomiting and chills Denies: blood in stools or black stools, fever, difficulty or pain urinating. GI history: GERD. Surgeries: appendectomy and cholecystectomy, and lesion for hepatic lesion. Endoscopy: EGD and Colonoscopy earlier this year showing gastritis and hemorrhoids Family history: unknown Denies any new medications, new diet changes, or exposure to known illness. REVIEW OF SYSTEMS General: denies dizziness, lightheadedness, weight loss, fever, headaches, night sweats, syncope CV: denies rapid heart rate, edema Resp: denies SOB : denies dark/concentrated urine or decreased urine output PAST MEDICAL HISTORY Diagnosis Date Abdominal pain Anemia Dyspepsia Endometriosis Fatty liver Hypertension IBS (irritable bowel syndrome) Liver mass Post-cholecystectomy syndrome Renal disorder MASS DISCOVERED 12/2018 RUQ pain 06/10/14 Vitamin D deficiency PAST SURGICAL HISTORY Procedure Laterality Date COLONOSCOPY 03/15/2022 COLONOSCOPY W/BIOPSY 2013 CYST/MOLE REMOVAL Bilateral Left wrist, right hand EGD 03/15/2022 EGD DILATION ENDOSCOPY PROC 2014 bxs LAPS SURG CHOLECYSTECTOMY W/CHOLANGIOGRAPHY 04/24/2014 Normal [facility] LIVER SURGERY HX 10/2018 ABLATION FOR MASS PAST SURGICAL HISTORY OF appendectomy PAST SURGICAL HISTORY OF dental procedures PAST SURGICAL HISTORY OF diagnostic laparoscopy PAST SURGICAL HISTORY OF Carpal tunnel release, right PAST SURGICAL HISTORY OF as a child removed a piece of lead from skull TOTAL ABDOMINAL HYSTERECT W/WO RMVL TUBE OVARY 2004 Hysterectomy, AMANDA ALLERGIES Penicillins, Chantix [Varenicline], Contrast Dye [Iodine], Demerol [Meperidine (Pf)], Latex, Morphine, and Propoxyphene MEDICATIONS dilTIAZem CD (CARDIZEM CD, CARTIA XT) 120 mg 24 hr capsule TAKE 1 CAPSULE BY MOUTH EVERY DAY omeprazole (PRILOSEC) 40 mg capsule Take 1 capsule by mouth once daily. rizatriptan (MAXALT) 10 mg tablet Take at onset of headache one pill, may repeat in 2 hours, not more than 2 pills a day FAMILY HISTORY Adopted: Yes Problem Relation Age of Onset other (adopted) Other Social History Tobacco Use Smoking status: Former Packs/day: 0.50 Years: 11.00 Pack years: 5.50 Types: Cigarettes Smokeless tobacco: Never Tobacco comments: quit in Nov 2020 Vaping Use Vaping Use: Never used Substance Use Topics Alcohol use: Yes Comment: occ Drug use: No PHYSICAL EXAM BP 122/88 Pulse 94 Temp 36.6 C (97.9 F) (Temporal) Resp 16 Wt 80.7 kg (178 lb) SpO2 94% BMI 30.55 kg/m General Appearance: well appearing, in no acute distress, alert Skin: Skin color, texture, turgor normal for age; Eyes: conjunctiva pink and moist, no icterus, sclera white, non-injected Neck: Thyroid normal size and symmetric without palpable nodules, No adenopathy Lymph nodes: No cervical lymphadenopathy and No supraclavicular lymphadenopathy Lungs: Lungs clear to auscultation. No wheezing, rhonchi, rales. Heart: RRR without murmur, gallop, or rubs. No ectopy Abdomen: Abdomen soft, Bowel sounds normal. No masses, organomegaly, positive right CVA tenderness,generalized abdominal tenderness with exquisite tenderness to RUQ with grimacing, guarding, and crying with light palpation. DATA REVIEWED: No new labs ASSESSMENT/PLAN: 1. RUQ pain - ICD9: 789.01, ICD10: R10.11 (primary diagnosis) - with the pain being so intense and also unable to obtain stat studies as an outpatient, patient instructed to go to ER for probable CT of abdomen/pelvis and laboratory evaluation along with pain management. 2. Right flank pain - ICD9: 789.09, ICD10: R10.9 - UA dip negative but with such intense pain, patient instructed to go to ER As above - UA DIP, URINE (POC) 3. Diarrhea, unspecified type - ICD9: 787.91, ICD10: R19.7 See #1 4. Nausea - ICD9: 787.02, ICD10: R11.0 See #1 5. Chills - ICD9: 780.64, ICD10: R68.83 See #1 Prescription instructions reviewed with patient as applicable. Potential red flag symptoms discussed with the patient. Reviewed appropriate action plan to take if red flag symptoms occur. Patient agreeable to treatment plan. Carole Moore APRN.CNP documented in this encounterC[facility] History of Present illness Narrative* Nicyk Knight MD - 08/11/2022 5:44 PM EDT Chief Complaint No chief complaint on file. HPI Joan Foley is a 42 year old female who is contacted today for a virtual/telemedicine visit. This is an established patient of Dr. Nicky Knight MD. States that patient started with symptoms the past couple days, her symptoms included, she had a sore throat running nose, cough, chills, body aches, and she tested positive for covid, home tests. She used the free ones she could use at [facility]. She had been going through a lot recently with fathers illness. This is the second bout of covid she is having. Last time she had it she was in the hospital for 4 days. Patient. Past medical history, appointments, medications, allergies reviewed 08/11/2022 Previous Medical History PAST MEDICAL HISTORY Diagnosis Date Abdominal pain Anemia Dyspepsia Endometriosis Fatty liver Hypertension IBS (irritable bowel syndrome) Liver mass Post-cholecystectomy syndrome Renal disorder MASS DISCOVERED 12/2018 RUQ pain 06/10/14 Vitamin D deficiency Previous Surgical History PAST SURGICAL HISTORY Procedure Laterality Date COLONOSCOPY 03/15/2022 COLONOSCOPY W/BIOPSY 2013 CYST/MOLE REMOVAL Bilateral Left wrist, right hand EGD 03/15/2022 EGD DILATION ENDOSCOPY PROC 2014 bxs LAPS SURG CHOLECYSTECTOMY W/CHOLANGIOGRAPHY 04/24/2014 Normal [facility] LIVER SURGERY HX 10/2018 ABLATION FOR MASS PAST SURGICAL HISTORY OF appendectomy PAST SURGICAL HISTORY OF dental procedures PAST SURGICAL HISTORY OF diagnostic laparoscopy PAST SURGICAL HISTORY OF Carpal tunnel release, right PAST SURGICAL HISTORY OF as a child removed a piece of lead from skull TOTAL ABDOMINAL HYSTERECT W/WO RMVL TUBE OVARY 2004 Hysterectomy, AMANDA Family History FAMILY HISTORY Adopted: Yes Problem Relation Age of Onset other (adopted) Other Patient Allergies ALLERGIES Allergen Reactions Penicillins Hives, Anaphylaxis, Shortness of Breath Chantix [Vareniclin* Other: See Comments Mood changes (irritability), flu like symptoms, body aching Contrast Dye [Iodin* Hives, Swelling Demerol [Meperidine* Other: See Comments Nausea Latex Other: See Comments my skin starts pealing off Morphine Hives, Itching Propoxyphene Intolerance Current Medications Current Outpatient Medications on File Prior to Visit Medication Sig dilTIAZem CD (CARDIZEM CD, CARTIA XT) 120 mg 24 hr capsule TAKE 1 CAPSULE BY MOUTH EVERY DAY omeprazole (PRILOSEC) 40 mg capsule Take 1 capsule by mouth once daily. rizatriptan (MAXALT) 10 mg tablet Take at onset of headache one pill, may repeat in 2 hours, not more than 2 pills a day No current facility-administered medications on file prior to visit. Social History Social History Tobacco Use Smoking status: Former Packs/day: 0.50 Years: 11.00 Pack years: 5.50 Types: Cigarettes Smokeless tobacco: Never Tobacco comments: quit in Nov 2020 Vaping Use Vaping Use: Never used Substance Use Topics Alcohol use: Yes Comment: occ Drug use: No Review of Symptoms GENERAL: No weight loss. No malaise or fevers HEENT: Negative for headaches No eye discharge or redness No earaches or drainage No sore throat Nose POS/NEG for congestion and nasal discharge NECK: Negative for lumps, pain or significant neck swelling RESPIRATORY: No wheezing, SOB, Difficulty breathing. CARDIOVASCULAR: Negative for chest pain GI: No nausea, vomiting, or diarrhea MUSCULOSKELETAL: Negative for muscle aches or bodyaches SKIN: Negative for lesions, rash, and itching Neuro: No lightheadedness or dizziness EXAM: There were no vitals taken for this visit. Deferred physical exam as visit was completed over the phone. Virtual visit completed using video, limited exam completed. General Appearance: Well appearing, alert, in no acute distress, well-hydrated, well nourished. Skin: Skin color Head: Normocephalic Psych: Attitude - cooperative, easily engaged in conversation Appearance - normal, hygiene and grooming appropriate Affect - euthymic, normal mood Mental status: Alert, attentive. Speech is clear and fluent with good repetition, comprehension Coordination: No abnormal or extraneous movements. Gait/Stance: Posture is normal. Health Maintenance List HEPATITIS B(1 of 3 - 3-dose series) Never done BP CONTROLLED (<130/80) Never done COVID-19 VACCINE(3 - Booster for Moderna series) due on 04/23/2021 DEPRESSION ASSESSMENT Never done INFLUENZA(1) due on 06/10/2022 MAMMOGRAM due on 02/02/2023 ANNUAL PCP TEAM CHRONIC DISEASE VISIT due on 06/30/2023 DTAP,TDAP,TD(3 - Td or Tdap) due on 09/11/2031 COLORECTAL CANCER SCREENING due on 03/15/2032 HEPATITIS C SCREENING Completed HIV SCREENING Completed PAP TESTING Discontinued HPV TESTING Discontinued Data reviewed Last 5 Encounter BP Readings: Date: BP: 06/30/2022 132/92 04/08/2022 130/90 03/15/2022 112/67 03/15/2022 120/75 01/12/2022 126/82 BMI Readings from Last 5 Encounters: 06/30/22 : 31.93 kg/m 04/08/22 : 30.73 kg/m 03/15/22 : 31.24 kg/m 01/12/22 : 32.38 kg/m 09/11/21 : 32.79 kg/m Last 5 Encounter Wt Readings: Date: Wt: 06/30/2022 84.4 kg (186 lb) 04/08/2022 81.2 kg (179 lb) 03/15/2022 82.6 kg (182 lb) 01/12/2022 87.1 kg (192 lb) 09/11/2021 86.6 kg (191 lb) Medication and allergy list reviewed, reconciled and updated 08/11/2022 ASSESSMENT/PLAN: 1. COVID-19 virus infection - ICD9: 079.89, ICD10: U07.1 Called [facility] to the patient Went over the side effect profile for the drug with the patient, mentioned every one of it , discussed appropriate concerns , alternatives and benefits of the drug, To ER for worsening symptoms, mental status changes, SOB, or side effects of meds that are severe especially allergic reactions causing air way compromise. Nicky Knight MD documented in this encounterCrystal [facility]09-21-2022 History of Present illness Narrative* Carole Moore, [employer]ANT MAINTAINER.ECOMMERCE MANAGER - 06/30/2022 5:25 PM EDT CC: Patient presents with: Mass: Lump under L breast HPI Joan Foley is a 42 year old female who presents today for lump under left breast. Noticed a soft lump under her left breast a few months ago. Has a history of lipomas so assumed it was a new one. Noticed a few days a go that it had gotten larger and then last night there are 2 more in a row going down her left side. Area will get a sharp pain and bras will irritate this as well. Denies injury to area, fever, chills, is starting to gain weight since losing some this past summer. Has mammograms yearly and last was normal this past January. Denies any changes to her breasts, nipples, or discharge Also wanted to update her medication list as she has stopped taking almost all of her medications. Is continuing the diltiazem, omeprazole, and maxalt as needed. States she is going to discuss this with cardiology as well. Says she feels better than she has felt all year since stopping the medications. REVIEW OF SYSTEMS General: no fevers, no chills, no night sweats, no recurrent infections, no change in appetite, no change in energy, and no significant changes in weight Respiratory: no cough, no wheezing, no shortness of breath, no hemoptysis Cardiovascular: no chest pain, no chest pressure, no palpitations, and no swelling GI: No nausea, vomiting, or diarrhea Skin: Negative for lesions, rash, and itching Neurologic: No headache, weakness, numbness, tingling, dizziness, syncope. PAST MEDICAL HISTORY Diagnosis Date Abdominal pain Anemia Dyspepsia Endometriosis Fatty liver Hypertension IBS (irritable bowel syndrome) Liver mass Post-cholecystectomy syndrome Renal disorder MASS DISCOVERED 12/2018 RUQ pain 06/10/14 Vitamin D deficiency PAST SURGICAL HISTORY Procedure Laterality Date COLONOSCOPY 03/15/2022 COLONOSCOPY W/BIOPSY 2013 CYST/MOLE REMOVAL Bilateral Left wrist, right hand EGD 03/15/2022 EGD DILATION ENDOSCOPY PROC 2013 bxs LAPS SURG CHOLECYSTECTOMY W/CHOLANGIOGRAPHY 04/24/2014 Normal [facility] LIVER SURGERY HX 10/2018 ABLATION FOR MASS PAST SURGICAL HISTORY OF appendectomy PAST SURGICAL HISTORY OF dental procedures PAST SURGICAL HISTORY OF diagnostic laparoscopy PAST SURGICAL HISTORY OF Carpal tunnel release, right PAST SURGICAL HISTORY OF as a child removed a piece of lead from skull TOTAL ABDOMINAL HYSTERECT W/WO RMVL TUBE OVARY 2003 Hysterectomy, AMANDA ALLERGIES Penicillins, Chantix [Varenicline], Contrast Dye [Iodine], Demerol [Meperidine (Pf)], Latex, Morphine, and Propoxyphene MEDICATIONS dilTIAZem CD (CARDIZEM CD, CARTIA XT) 120 mg 24 hr capsule TAKE 1 CAPSULE BY MOUTH EVERY DAY omeprazole (PRILOSEC) 40 mg capsule Take 1 capsule by mouth once daily. cholecalciferol, Vitamin D3, (VITAMIN D3) 1,250 mcg (50,000 unit) cap capsule Take 1 capsule by mouth one time a week. gabapentin (NEURONTIN) 300 mg capsule Take 1 capsule by mouth daily at bedtime for 90 days. colestipol (COLESTID) 5 gram packet Take 5 g by mouth twice daily. amitriptyline (ELAVIL) 25 mg tablet Take 1 tablet by mouth daily at bedtime. ondansetron orally disintegrating (ZOFRAN ODT) 4 mg disintegrating tablet Take 1 tablet by mouth daily at bedtime. pantoprazole DR (PROTONIX) 40 mg tablet Take 1 tablet by mouth daily before breakfast. Take on empty stomach, 1/2 hr before meal. buPROPion XL (WELLBUTRIN XL) 150 mg 24 hr tablet Take 2 tablets by mouth once daily. traZODone (DESYREL) 50 mg tablet Take 1 tablet by mouth daily at bedtime. hydrOXYzine HCl (ATARAX) 25 mg tablet Take 1 tablet by mouth every 6 hours as needed for itching/rash. (Patient not taking: Reported on 04/08/2022 ) losartan (COZAAR) 50 mg tablet Take 1 tablet by mouth once daily. liraglutide (SAXENDA) 3 mg/0.5 mL (18 mg/3 mL) pen injector Inject 0.6 mg subcutaneously once daily. furosemide (LASIX) 20 mg tablet TAKE 1 TABLET BY MOUTH EVERY DAY potassium chloride (K-TAB) 10 mEq tablet TAKE 1 TABLET BY MOUTH DAILY WITH BREAKFAST. TAKE WITH LASIX meloxicam (MOBIC) 15 mg tablet Take 1 tablet by mouth once daily. With food. rizatriptan (MAXALT) 10 mg tablet Take at onset of headache one pill, may repeat in 2 hours, not more than 2 pills a day FAMILY HISTORY Adopted: Yes Problem Relation Age of Onset other (adopted) Other Social History Tobacco Use Smoking status: Former Packs/day: 0.50 Years: 11.00 Pack years: 5.50 Types: Cigarettes Smokeless tobacco: Never Tobacco comments: quit in Nov 2020 Vaping Use Vaping Use: Never used Substance Use Topics Alcohol use: Yes Comment: occ Drug use: No PHYSICAL EXAM BP 132/92 Pulse 80 Resp 16 Wt 84.4 kg (186 lb) BMI 31.93 kg/m General Appearance: well appearing, in no acute distress, alert Skin: Skin color, texture, turgor normal for age; Soft nontender nondefined change to lower left ribs. Eyes: conjunctiva pink and moist, no icterus, sclera white, non-injected Neck: Thyroid normal size and symmetric without palpable nodules, No adenopathy Lymph nodes: No cervical lymphadenopathy, No supraclavicular lymphadenopathy, and No axillary lymphadenopathy. Lungs: Lungs clear to auscultation. No wheezing, rhonchi, rales. Heart: RRR without murmur, gallop, or rubs. No ectopy Abdomen: Abdomen soft, non-tender. Bowel sounds normal. organomegaly, small firm pea size mass onlynoted with standing right side of abdomen. Is nontender with palpation BUE Extremities: No deformities, edema, skin discoloration, clubbing or cyanosis. Good capillary refill. Breast: breasts symmetric, no dominant or suspicious mass, no skin or nipple changes, no axillary adenopathy Health maintenance reviewed with patient: HEPATITIS B(1 of 3 - 3-dose series) Never done BP CONTROLLED (<130/80) Never done COVID-19 VACCINE(3 - Booster for Moderna series) due on 04/23/2021 INFLUENZA(1) due on 06/10/2022 DEPRESSION SCREENING due on 01/24/2023 MAMMOGRAM due on 02/02/2023 ANNUAL PCP TEAM CHRONIC DISEASE VISIT due on 04/08/2023 DTAP,TDAP,TD(3 - Td or Tdap) due on 09/11/2031 COLORECTAL CANCER SCREENING due on 03/15/2032 HEPATITIS C SCREENING Completed HIV SCREENING Completed PAP TESTING Discontinued HPV TESTING Discontinued DATA REVIEWED: No new labs ASSESSMENT/PLAN: 1. Soft tissue mass - ICD9: 729.99, ICD10: M79.89 Lower left chest mass is not defined, tender, or discolored. Is soft. Abdominal mass is small, firm, nontender, and only present when patient is standing. - US SOFT TISSUE ABDOMEN - US CHEST WALL/SOFT TISSUE - follow up depending on results. Prescription instructions reviewed with patient as applicable. Potential red flag symptoms discussed with the patient. Reviewed appropriate action plan to take if red flag symptoms occur. Patient agreeable to treatment plan. Carole Moore APRN.CNP documented in this encounterC[facility]09-20-2022 Miscellaneous Notes* Telephone Encounter - Nadine Cantu RN - 06/29/2022 12:13 PM EDT Patient call in for small lumps under left breast above rib cage. Lumps are painful to touch, no fever noted. Patient has noticed them for a few days. Nurse Triage assessment completed with protocol recommending for disposition of See PCP in 24 hours. Care advice reviewed with patient, patient stated understanding. Patient has appointment with Carole Moore tomorrow. Reason for Disposition [1] Swelling is painful to touch AND [2] no fever Answer Assessment - Initial Assessment Questions 1. APPEARANCE of SWELLING: Odd shaped, 2. SIZE: Has area size of large pea, has lump about 2 inches long 3/4 inch wide 3. LOCATION: Under left breast right above rib cage 4. ONSET: Last few days, noticed it more yesterday couldn't put bra on 5. PAIN: Patient states that pain is a sharp pain, if she compresses it a while it hurts more. 6. ITCH: Denies itching 7. CAUSE: Unsure 8. OTHER SYMPTOMS: Increased in diarrhea in last few days, denies fever Protocols used: Skin Lump or Localized [id number] documented in this encounterCrystal Clinic [facility] Center08-01-2022 Miscellaneous Notes* Telephone Encounter - Lindsay Reid LPN - 05/10/2022 1:51 PM EDT Patient's request for medication is as follows: Pending Prescriptions Disp Refills DILTIAZEM SR 120 MG 24 HR CAP 90 capsule 1 Sig: TAKE 1 CAPSULE BY MOUTH EVERY DAY CINDI: Yes Last seen 03/02/2021 in [place]. Follow up scheduled for 10/25/2022. Prescription(s) as above. Please process accordingly. Lindsay Reid LPN documented in this encounterCrystal Clinic [facility] Center08-01-2022 Miscellaneous Notes* Telephone Encounter - Anuja Daley RN - 05/10/2022 11:[address] Dobbs's office calling and received patient's referral but needs demographic page. Faxed as requested to [phone]. Anuja Daley RN documented in this encounterCrystal Clinic [facility] Center07-18-2022 Miscellaneous Notes* Telephone Encounter - Chetna Escamilla LPN - 04/26/2022 11:03 AM EDT Pt calls to request last OV note, lab results, procedure results and demo to be faxed to Dr. Dobbs's office. Faxed to [phone] as requested. Chetna Escamilla LPN documented in this encounterCrystal Clinic [facility] Center07-18-2022 Miscellaneous Notes* Telephone Encounter - Lindsay Reid LPN - 04/26/2022 10:07 AM EDT Last seen 03/02/2021 in [place]. Please call patient with over due appointment. Lindsay Reid LPN documented in this encounterCrystal Clinic [facility] Center07-18-2022 Miscellaneous Notes* Telephone Encounter - Lindsay Reid LPN - 04/26/2022 10:06 AM EDT Patient's request for medication is as follows: Pending Prescriptions Disp Refills DILTIAZEM SR 120 MG 24 HR CAP 30 capsule 1 Sig: TAKE 1 CAPSULE BY MOUTH EVERY DAY CINDI: Yes Last seen 03/02/2021 in [place]. Message sent to clerical requesting they call patient with over due appointment. Prescription(s) as above. Please process accordingly. Lindsay Reid LPN documented in this encounterCrystal Clinic [facility] Center06-30-2022 History of Present illness Narrative* Nicky Knight MD - 04/08/2022 11:47 AM EDT Reason for Visit Patient presents with: Hospital Follow Up: [facility] March 17- March 27, wt loss, diarrhea, right upper quandrant pain Joan Foley is a 42 year old female who presents here today for Above Complaints.. Health Maintenance BP CONTROLLED (<130/80) COVID-19 VACCINE(3 - Booster for Moderna series) HPI On March 15, she had egd and colonoscopy done by [facility] for bloody diarrhea. On March 17, she started having severe RUQ pain, she was asked to go to the ER , went to [address] scan done showed there was a spot on the liver, she had an ablation, done in the past for that, seemed to be new, was sent to [facility], had MRI if the liver, and then Biopsy, yesterday she was told the tissue is necrotic and seems like from ablation in 2018. Colonoscopy and egd showed hemorrhoids, tissues damage in esophagus, swelling in the stomach, patient ended up being rx of protonix. She cannot miss a single day of prilosec. She is loosing weight , around 15 pounds since december. Currently she still has diarrhea, around 5 bowel movements today, as soon as she eats, she has to go. Every day she has around 5 to 10 bowel movements. Its usually watery. It has been going on for more than a year. He job has been really stressful lately. Sleeping is difficult right now. Brain fog is going on for awhile now. She is not able to remember everyday stuff sometimes and messing up with Important stuff. No problem-specific Assessment & Plan notes found for this encounter. PAST MEDICAL HISTORY Diagnosis Date Abdominal pain Anemia Dyspepsia Endometriosis Fatty liver Hypertension IBS (irritable bowel syndrome) Liver mass Post-cholecystectomy syndrome Renal disorder MASS DISCOVERED 12/2018 RUQ pain 06/10/14 Vitamin D deficiency PAST SURGICAL HISTORY Procedure Laterality Date COLONOSCOPY 03/15/2022 COLONOSCOPY W/BIOPSY 2013 CYST/MOLE REMOVAL Bilateral Left wrist, right hand EGD 03/15/2022 EGD DILATION ENDOSCOPY PROC 2013 bxs LAPS SURG CHOLECYSTECTOMY W/CHOLANGIOGRAPHY 04/24/2014 Normal [facility] LIVER SURGERY HX 10/2018 ABLATION FOR MASS PAST SURGICAL HISTORY OF appendectomy PAST SURGICAL HISTORY OF dental procedures PAST SURGICAL HISTORY OF diagnostic laparoscopy PAST SURGICAL HISTORY OF Carpal tunnel release, right PAST SURGICAL HISTORY OF as a child removed a piece of lead from skull TOTAL ABDOMINAL HYSTERECT W/WO RMVL TUBE OVARY 2004 Hysterectomy, AMANDA FAMILY HISTORY Adopted: Yes Problem Relation Age of Onset other (adopted) Other Social History Tobacco Use Smoking status: Former Smoker Packs/day: 0.50 Years: 11.00 Pack years: 5.50 Types: Cigarettes Smokeless tobacco: Never Used Tobacco comment: quit in Nov 2020 Vaping Use Vaping Use: Never used Substance Use Topics Alcohol use: Yes Comment: occ Drug use: No Past medical history, appointments, medications, allergies reviewed. Pertinent Lab/Diagnostic Studies are reviewed and discussed today Current Outpatient Medications: omeprazole (PRILOSEC) 40 mg capsule ondansetron orally disintegrating (ZOFRAN ODT) 4 mg disintegrating tablet buPROPion XL (WELLBUTRIN XL) 150 mg 24 hr tablet traZODone (DESYREL) 50 mg tablet losartan (COZAAR) 50 mg tablet cholecalciferol, Vitamin D3, (VITAMIN D3) 1,250 mcg (50,000 unit) cap capsule furosemide (LASIX) 20 mg tablet potassium chloride (K-TAB) 10 mEq tablet dilTIAZem CD (CARDIZEM CD) 120 mg 24 hr capsule rizatriptan (MAXALT) [address] (PROTONIX) 40 mg tablet peg 3350-Electrolytes (GOLYTELY) 236-22.74-6.74 -5.86 gram suspension gabapentin (NEURONTIN) 300 mg capsule hydrOXYzine HCl (ATARAX) 25 mg tablet liraglutide (SAXENDA) 3 mg/0.5 mL (18 mg/3 mL) pen injector meloxicam (MOBIC) 15 mg tablet Review of Systems CONSTITUTIONAL: No fevers, chills night sweats, unintended weight loss CARDIOVASCULAR: No chest pain, dyspnea, palpitations, orthopnea, PND, ankle edema. PULM: No dyspnea, unexplained cough. GI: No dysphagia/odynophagia, problematic reflux, constipation, diarrhea, changes in stool habits, hematochezia, melena. : No new urinary complaints, including dysuria, gross hematuria or pyuria. NEURO: No new balance problems, peripheral weakness/paresthesias or numbness of concern. Physical Exam BP 130/90 Pulse 97 Temp 37.1 C (98.7 F) Resp 16 Wt 81.2 kg (179 lb) SpO2 98% BMI 30.73 kg/m General appearance: Well appearing, alert, in no acute distress, well nourished. Skin: Skin color, texture, turgor normal, no suspicious rashes or lesions Head: Normocephalic, no masses, lesions, tenderness or abnormalities Eyes: Anicteric sclera. Pupils are equally round and reactive to light. Extraocular movements are intact. Lungs: Lungs clear to auscultation. No wheezing, rhonchi, rales Heart: RRR without murmur, gallop, or rubs. Extremities: No deformities, edema, skin discoloration, clubbing or cyanosis. Good capillary refill. ASSESSMENT/PLAN: 1. Hospital discharge follow-up - ICD9: V67.59, ICD10: Z09 (primary diagnosis) Have requested records for the same. 2. Vitamin D deficiency - ICD9: 268.9, ICD10: E55.9 - CHOLECALCIFEROL (VITAMIN D3) 1,250 MCG (50,000 UNIT) CAPSULE 3. Diarrhea, unspecified type - ICD9: 787.91, ICD10: R19.7 Trying colestipol and also elavil, to try GI at [facility] or [facility] for more answers - COLESTIPOL 5 GRAM ORAL PACKET - CONSULT TO GASTROENTEROLOGY Nicky Knight MD documented in this encounterCrystal Clinic [facility] Center06-18-2022 NoteHospitalist Discharge Summary Joan Foley : 1980 ADMIT DATE: 03/17/2022 DISCHARGE DATE: 03/27/2022 PRIMARY CARE PHYSICIAN: No primary care provider on file. CODE STATUS: Full Code DISCHARGE DIAGNOSES: Principal Problem: Abdominal mass, RUQ (right upper quadrant) Active Problems: Abdominal pain, right upper quadrant Resolved Problems: * No resolved hospital problems. * HOSPITAL COURSE: Joan Foley is a 42 y.o. female with PMHx of GERD, prev hepatic adenoma s/p ablation. She presented to [facility] 03/18 for evaluation of R abdominal pain. ? At time of consult pt reports presenting for RUQ pain. She pain was worse after EGD/Colonoscopy 03/15/2022. EGD was performed for Lieberman's esophagus/GERD, C scope was performed for history of daily diarrhea. She has had some intermittent N/V over the last month with ~10lb weight loss. ? She was seen previously by Dr Gonsales for known hepatic adenoma starting in 2018. She is s/p laparoscopic ablation of a 1.9 x 1.4 x 1.4 cm segment 7 liver lesion (100watt/10min) on 10/2018, and has been followed with serial imaging. Last MRI on chart review 04/2020 redemonstrated ablation cavity in segment 8 3.6 x 2.3 cm, and showed a new arterial enhancing segment 4a lesion measuring .6cm. ? On review of workup this admission - she has been AF, HDS with low baseline BP,on RA. Labs with WBC initially 12 now 8.6, Hgb 12.4, BMP WNL, LFTs with ALT 50s, AST 40s, Bili WNL. CT Abdomen WO contrast initially obtained which showed 3.3cm R hepatic lesion. MRI Abdomen confirmed 3.9 x 2.0 x 2.0cm lesion in the R liver as well as diffuse fatty infiltration. She is s/p biopsy of the lesion, pathology pending. She was seen by GI and surgery as well She continued to have pain issues, btu was eventually able to apoorva a diet Plan at this time will be to follow as outpt for her biopsy results, and any further intervention needed CONSULTANTS: IP CONSULT TO GI IP CONSULT TO PAIN MANAGEMENT IP CONSULT TO GENERAL SURGERY PHYSICAL EXAM: General appearance: No apparent distress, appears stated age and cooperative with exam HEENT: Eyes: No scleral icterus Oral: Tongue is semi-moist Cardiovascular: S1S2 heard, RRR Respiratory: Clear to auscultation bilaterally Abdomen: Soft, +pain to palp of RUQ non-distended with normal bowel sounds. Musculoskeletal: No obvious deformities seen Skin: No visible rashes or lesions. DISCHARGE MEDICATIONS: Medication List START taking these medications oxyCODONE 5 MG immediate release tablet Commonly known as: ROXICODONE Take 1 tablet by mouth every 6 hours as needed for Pain for up to 3 days. CONTINUE taking these medications buPROPion 150 MG extended release tablet Commonly known as: WELLBUTRIN XL dilTIAZem 120 MG Tb24 extended release tablet Commonly known as: CARDIZEM LA furosemide 20 MG tablet Commonly known as: LASIX gabapentin 300 MG capsule Commonly known as: NEURONTIN losartan 50 MG tablet Commonly known as: COZAAR omeprazole 40 MG delayed release capsule Commonly known as: PRILOSEC Take 1 capsule by mouth daily ondansetron 4 MG disintegrating tablet Commonly known as: Zofran ODT Take 1 tablet by mouth every 8 hours as needed for Nausea ondansetron 4 MG tablet Commonly known as: ZOFRAN potassium chloride 10 MEQ extended release tablet Commonly known as: KLOR-CON promethazine 12.5 MG tablet Commonly known as: PHENERGAN traZODone 50 MG tablet Commonly known as: DESYREL vitamin D 1.25 MG (08069 UT) Caps capsule Commonly known as: ERGOCALCIFEROL Take 1 capsule by mouth once a week STOP taking these medications azithromycin 250 MG tablet Commonly known as: Zithromax Z-Laverne ibuprofen 400 MG tablet Commonly known as: ADVIL;MOTRIN Where to Get Your Medications Information about where to get these medications is not yet available Ask your nurse or doctor about these medications ? oxyCODONE 5 MG immediate release tablet DIET: ADULT DIET; Regular ADULT ORAL NUTRITION SUPPLEMENT; Breakfast, Dinner; Clear Liquid Oral Supplement ACTIVITY: As tolerated RECOMMENDED NEXT STEPS: DISPOSITION: Home Follow up with No primary care provider on file. as specified on the Discharge Instructions. Discharge time spent greater than 30 minutes SIGNED: Mario Correia MD 03/27/2022, 11:09 [facility]06-17-2022 History of Present illness Narrative* Bairon Durán MD - 03/26/2022 2:48 PM EDT Images from the original note were not included. Hospitalist Progress Note 03/26/2022 2:48 PM [phone]: Please page me for patient care issues. [phone]: Please page [facility] night Hospitalist for any issues. Subjective: Admit Date: 03/17/2022 PCP: No primary care provider on file. Room#: [id number] Interval History: Still with pain and nausea issues; some dyspnea overnight. CXR unremarkable, hopeful for possible DC over weekend if pain controlled. Did get bx; path pending. ADULT DIET; Regular ADULT ORAL NUTRITION SUPPLEMENT; Breakfast, Dinner; Clear Liquid Oral Supplement No data found. Medications: sodium chloride sennosides-docusate sodium 2 tablet Oral BID buPROPion 300 mg Oral Daily dilTIAZem 120 mg Oral Daily furosemide 20 mg Oral Daily losartan 50 mg Oral Daily traZODone 50 mg Oral Nightly potassium chloride 10 mEq Oral Daily with breakfast vitamin D 50,000 Units Oral Weekly pantoprazole 40 mg Oral QAM AC gabapentin 300 mg Oral Nightly sodium chloride flush 5-40 mL IntraVENous 2 times per day HYDROmorphone 0.5 mg IntraVENous Once LABS: CBC: Recent Labs 03/25/22 0405 03/26/22 0422 WBC 7.8 7.6 RBC 4.01 3.90 HGB 13.3 12.7 HCT 39.0 38.1 MCV 97.2 97.5 RDW 12.8 12.9 PLT 185 205 BMP: Recent Labs 03/25/22 0405 NA 135 K 4.2 CL 102 CO2 27 BUN 8* CREATININE 0.69 GLUCOSE 116* CALCIUM 8.8 ANIONGAP 7 LIVER PROFILE: Recent Labs 03/25/22 0405 AST 51* ALT 96* BILITOT 0.5 ALKPHOS 71 LABALBU 3.9 PROT 6.5 PT/INR: No results for input(s): PROTIME, INR in the last 72 hours. CARDIAC ENZYMES: No results for input(s): TROPONINI in the last 72 hours. Procalcitonin: No results found for: PROCAL Objective: Vitals: BP 99/65 Pulse 79 Temp 98 F (36.7 C) (Temporal) Resp 16 Ht 5' 4 (1.626 m) Comment:per chart review Wt 181 lb (82.1 kg) SpO2 94% BMI 31.07 kg/m Pulse Ox: SpO2 Av % Min: 93 % Max: 97 % Supplemental O2: O2 Flow Rate (L/min): 2 L/min General appearance: No apparent distress, appears stated age and cooperative with exam HEENT: Eyes: No scleral icterus Oral: Tongue is semi-moist Cardiovascular: S1S2 heard, RRR Respiratory: Clear to auscultation bilaterally Abdomen: Soft, +pain to palp of RUQ non-distended with normal bowel sounds. Musculoskeletal: No obvious deformities seen Skin: No visible rashes or lesions. Assessment # Acute right upper quad abdominal pain with abnormal abdominal CT showing enlargement of right lobe liver lesion compared to before - patient states she had liver lesion ablated years ago and was told it was completely gone. MRI of liver of liver done this am, results ending. GI following # Mildly enlarged heterogeneous left ovary with cysts seen on CT abd/pelvis (Radiology recommended to consider US) - transvaginal US done in ER and showed 2.7 cm benign functional cyst in the left ovary. Otherwise normal appearance of the left ovary with no evidence of ovarian torsion. # Hx of depresssion/Anxiety disorder - resumed home med # Hx of Endometriosis # Chronic Hypertension - resumed home antihypertensive meds # IBS (irritable bowel syndrome) # GERD Plan MRI noted- S/p liver Bx Still taking significant amounts of IV narcotics and nausea medications Will try to transition to oral, but pt pretty resistant Path will not be avail for some time Pain management recs appreciated. Advance Directive: Full Code Discharge planning: home pending pain control Bairon Durán MD, Division of Hospitalist Medicine Inpatient Medical Services * Bairon Durán MD - 03/25/2022 12:37 PM EDT Images from the original note were not included. Hospitalist Progress Note 03/25/2022 12:37 PM [phone]: Please page me for patient care issues. [phone]: Please page [facility] night Hospitalist for any issues. Subjective: Admit Date: 03/17/2022 PCP: No primary care provider on file. Room#: [id number] Interval History: Still with pain and nausea issues; requires IV pain meds for R shoulder pain. Did get bx; path pending. ADULT DIET; Regular ADULT ORAL NUTRITION SUPPLEMENT; Breakfast, Dinner; Clear Liquid Oral Supplement No data found. Medications: sodium chloride buPROPion 300 mg Oral Daily dilTIAZem 120 mg Oral Daily furosemide 20 mg Oral Daily losartan 50 mg Oral Daily traZODone 50 mg Oral Nightly potassium chloride 10 mEq Oral Daily with breakfast vitamin D 50,000 Units Oral Weekly pantoprazole 40 mg Oral QAM AC gabapentin 300 mg Oral Nightly sodium chloride flush 5-40 mL IntraVENous 2 times per day HYDROmorphone 0.5 mg IntraVENous Once LABS: CBC: Recent Labs 03/25/22 0405 WBC 7.8 RBC 4.01 HGB 13.3 HCT 39.0 MCV 97.2 RDW 12.8 PLT 185 BMP: Recent Labs 03/25/22 0405 NA 135 K 4.2 CL 102 CO2 27 BUN 8* CREATININE 0.69 GLUCOSE 116* CALCIUM 8.8 ANIONGAP 7 LIVER PROFILE: Recent Labs 03/25/22 0405 AST 51* ALT 96* BILITOT 0.5 ALKPHOS 71 LABALBU 3.9 PROT 6.5 PT/INR: Recent Labs 03/22/22 1253 PROTIME 10.4 INR 1.0 CARDIAC ENZYMES: No results for input(s): TROPONINI in the last 72 hours. Procalcitonin: No results found for: PROCAL Objective: Vitals: BP 99/63 Pulse 83 Temp 98.2 F (36.8 C) (Temporal) Resp 18 Ht 5' 4 (1.626 m) Comment: per chart review Wt 181 lb (82.1 kg) SpO2 95% BMI 31.07 kg/m Pulse Ox: SpO2 Av % Min: 95 % Max: 95 % Supplemental O2: O2 Flow Rate (L/min): 2 L/min General appearance: No apparent distress, appears stated age and cooperative with exam HEENT: Eyes: No scleral icterus Oral: Tongue is semi-moist Cardiovascular: S1S2 heard, RRR Respiratory: Clear to auscultation bilaterally Abdomen: Soft, +pain to palp of RUQ non-distended with normal bowel sounds. Musculoskeletal: No obvious deformities seen Skin: No visible rashes or lesions. Assessment # Acute right upper quad abdominal pain with abnormal abdominal CT showing enlargement of right lobe liver lesion compared to before - patient states she had liver lesion ablated years ago and was told it was completely gone. MRI of liver of liver done this am, results ending. GI following # Mildly enlarged heterogeneous left ovary with cysts seen on CT abd/pelvis (Radiology recommended to consider US) - transvaginal US done in ER and showed 2.7 cm benign functional cyst in the left ovary. Otherwise normal appearance of the left ovary with no evidence of ovarian torsion. # Hx of depresssion/Anxiety disorder - resumed home med # Hx of Endometriosis # Chronic Hypertension - resumed home antihypertensive meds # IBS (irritable bowel syndrome) # GERD Plan MRI noted- S/p liver Bx Still taking significant amounts of IV narcotics and nausea medications Will try to transition to oral, but pt pretty resistant Path will not be avail for some time Pain management recs appreciated. Advance Directive: Full Code Discharge planning: home pending pain control Bairon Durán MD, Division of Hospitalist Medicine Inpatient Medical Services * Emerald Gandhi, MS, RD, LD - 03/24/2022 4:03 PM EDT Comprehensive Nutrition Assessment Type and Reason for Visit: Reassess Nutrition Recommendations/Plan: 1. Continue with regular diet. 2. Encourage adequate po intake with small frequent meals. Recommend document po intake in nursing flow sheets 3. Per MNT protocol, provide Ensure Clear (240 kcal and 8 grams protein) with breakfast and dinner to promote po/protein intake\ 4. Suggest obtain standing scale weight 5. RD continue to monitor overall nutritional status and follow up weekly Malnutrition Assessment: Malnutrition Status: At risk for malnutrition (Comment) (03/24/22 1600) Context: Acute Illness Findings of the 6 clinical characteristics of malnutrition: Energy Intake: 75% or less of estimated energy requirements for 7 or more days Weight Loss: Unable to assess (no recent weight history in epic) Body Fat Loss: No significant body fat loss Muscle Mass Loss: No significant muscle mass loss Fluid Accumulation: No significant fluid accumulation Chargem[employer] Specialist Strength: Not Performed Nutrition Assessment: General Surgery consulted>>patient with R liver lesion concerning for adenoma. No acute HPB surgical intervention. Lesion likely represents benign adenoma - awaiting path results. Patient reports she consumed 1/2 bagel for breakfast and 1/2 sandwich for lunch today. Did tolerate but did have some nausea. Patient stated she was having some abdominal cramping after taking stool softener. RD of fered to resume [employer] ONS however patient disliked supplement but willing to trial Ensure Clear ONS BID.RD obtained bed scale weight of 200# and patient stated 'that's not right'. Nutrition Related Findings: +bowel sounds; no edema noted; Stefano 20; +I&O Wound Type: None (Stefano 20) Current Nutrition Intake & Therapies: Average Meal Intake: 76-100% (all of breakfast however feels this is 'about to go right through me') Average Supplements Intake: None Ordered ADULT DIET; Regular Anthropometric Measures: Height: 5' 4 (162.6 cm) (per chart review) [place] Body Weight (IBW): 120 lbs (55 kg) Admission Body Weight: 180 lb (81.6 kg) (stated) Current Body Weight: (too many items/blankets present in pt's bed), IBW. Current BMI (kg/m2): Usual Body Weight: 191 lb (86.6 kg) (per pt this was her weight ~3 weeks ago; no recent weight hx in chart to review) Weight Adjustment For: No Adjustment BMI Categories: Obese Class 1 (BMI 30.0-34.9) Estimated Daily Nutrient Needs: Energy Requirements Based On: Kcal/kg Weight Used for Energy Requirements: [place] Energy (kcal/day): 7085-1087 kcal/day (25-30 kcal/kg) Weight Used for Protein Requirements: [place] Protein (g/day): 55-65 gm protein/day (1.0-1.2 gm protein/kg) Fluid (ml/day): per MD Nutrition Interventions: Food and/or Nutrient Delivery: Continue Current Diet,Start Oral Nutrition Supplement Nutrition Education/Counseling: No recommendation at this time Coordination of Nutrition Care: Continue to monitor while inpatient Plan of Care discussed with: pt Goals: Goals: PO intake 50% or greater,prior to discharge Nutrition Monitoring and Evaluation: Behavioral-Environmental Outcomes: None Identified Food/Nutrient Intake Outcomes: Diet Advancement/Tolerance,Food and Nutrient Intake,Supplement Intake Physical Signs/Symptoms Outcomes: Biochemical Data,GI Status,Fluid Status or Edema,Weight,Skin Discharge Planning: Continue current diet,Continue Oral Nutrition Supplement Emerald Gandhi MS, RD, LD Contact: pager [phone] * Bairon Durán MD - 03/24/2022 1:29 PM EDT Images from the original note were not included. Hospitalist Progress Note 03/24/2022 1:29 PM [phone]: Please page me for patient care issues. [phone]: Please page [facility] night Hospitalist for any issues. Subjective: Admit Date: 03/17/2022 PCP: No primary care provider on file. Room#: [id number] Interval History: Still with pain and nausea issues; requires IV pain meds still. Did get bx ADULT DIET; Regular No data found. Medications: sodium chloride buPROPion 300 mg Oral Daily dilTIAZem 120 mg Oral Daily furosemide 20 mg Oral Daily losartan 50 mg Oral Daily traZODone 50 mg Oral Nightly potassium chloride 10 mEq Oral Daily with breakfast vitamin D 50,000 Units Oral Weekly pantoprazole 40 mg Oral QAM AC gabapentin 300 mg Oral Nightly sodium chloride flush 5-40 mL IntraVENous 2 times per day HYDROmorphone 0.5 mg IntraVENous Once LABS: CBC: No results for input(s): WBC, RBC, HGB, HCT, MCV, RDW, PLT in the last 72 hours. BMP: No results for input(s): NA, K, CL, CO2, BUN, CREATININE, GLUCOSE, CALCIUM, ANIONGAP in the last 72hours. LIVER PROFILE: No results for input(s): AST, ALT, BILITOT, ALKPHOS, LABALBU, PROT in the last 72 hours. PT/INR: Recent Labs 03/22/22 1253 PROTIME 10.4 INR 1.0 CARDIAC ENZYMES: No results for input(s): TROPONINI in the last 72 hours. Procalcitonin: No results found for: PROCAL Objective: Vitals: BP 96/62 Pulse 82 Temp 97.9 F (36.6 C) (Temporal) Resp 18 Ht 5' 4 (1.626 m) Comment: per chart review Wt 181 lb (82.1 kg) SpO2 96% BMI 31.07 kg/m Pulse Ox: SpO2 Av.3 % Min: 94 % Max: 98 % Supplemental O2: O2 Flow Rate (L/min): 2 L/min General appearance: No apparent distress, appears stated age and cooperative with exam HEENT: Eyes: No scleral icterus Oral: Tongue is semi-moist Cardiovascular: S1S2 heard, RRR Respiratory: Clear to auscultation bilaterally Abdomen: Soft, +pain to palp of RUQ non-distended with normal bowel sounds. Musculoskeletal: No obvious deformities seen Skin: No visible rashes or lesions. Assessment # Acute right upper quad abdominal pain with abnormal abdominal CT showing enlargement of right lobe liver lesion compared to before - patient states she had liver lesion ablated years ago and was told it was completely gone. MRI of liver of liver done this am, results ending. GI following # Mildly enlarged heterogeneous left ovary with cysts seen on CT abd/pelvis (Radiology recommended to consider US) - transvaginal US done in ER and showed 2.7 cm benign functional cyst in the left ovary. Otherwise normal appearance of the left ovary with no evidence of ovarian torsion. # Hx of depresssion/Anxiety disorder - resumed home med # Hx of Endometriosis # Chronic Hypertension - resumed home antihypertensive meds # IBS (irritable bowel syndrome) # GERD Plan MRI noted- S/p liver Bx Still taking significant amounts of IV narcotics and nausea medications Will try to transition to oral, but pt pretty resistant Path will not be avail for some time Will have HB surg eval if other options Pain management as well Advance Directive: Full Code Discharge planning: TBD Bairon Durán MD, Division of Hospitalist Medicine Inpatient Medical Services * Mario Correia MD - 03/23/2022 1:33 PM EDT Images from the original note were not included. Hospitalist Progress Note 03/23/2022 1:33 PM [phone]: Please page me for patient care issues. [phone]: Please page [facility] night Hospitalist for any issues. Subjective: Admit Date: 03/17/2022 PCP: No primary care provider on file. Room#: [id number] Interval History: Still with pain and nausea issues Did get bx Diet NPO Exceptions are: Ice Chips, Sips of Water with Meds No data found. Medications: sodium chloride buPROPion 300 mg Oral Daily dilTIAZem 120 mg Oral Daily furosemide 20 mg Oral Daily losartan 50 mg Oral Daily traZODone 50 mg Oral Nightly potassium chloride 10 mEq Oral Daily with breakfast vitamin D 50,000 Units Oral Weekly pantoprazole 40 mg Oral QAM AC gabapentin 300 mg Oral Nightly sodium chloride flush 5-40 mL IntraVENous 2 times per day HYDROmorphone 0.5 mg IntraVENous Once LABS: CBC: No results for input(s): WBC, RBC, HGB, HCT, MCV, RDW, PLT in the last 72 hours. BMP: No results for input(s): NA, K, CL, CO2, BUN, CREATININE, GLUCOSE, CALCIUM, ANIONGAP in the last 72hours. LIVER PROFILE: No results for input(s): AST, ALT, BILITOT, ALKPHOS, LABALBU, PROT in the last 72 hours. PT/INR: Recent Labs 03/22/22 1253 PROTIME 10.4 INR 1.0 CARDIAC ENZYMES: No results for input(s): TROPONINI in the last 72 hours. Procalcitonin: No results found for: PROCAL Objective: Vitals: BP 102/61 Pulse 91 Temp 97.2 F (36.2 C) (Temporal) Resp 19 Ht 5' 4 (1.626 m) Comment: per chart review Wt 181 lb (82.1 kg) SpO2 100% BMI 31.07 kg/m Pulse Ox: SpO2 Av.4 % Min: 86 % Max: 100 % Supplemental O2: O2 Flow Rate (L/min): 2 L/min General appearance: No apparent distress, appears stated age and cooperative with exam HEENT: Eyes: No scleral icterus Oral: Tongue is semi-moist Cardiovascular: S1S2 heard, RRR Respiratory: Clear to auscultation bilaterally Abdomen: Soft, +pain to palp of RUQ non-distended with normal bowel sounds. Musculoskeletal: No obvious deformities seen Skin: No visible rashes or lesions. Assessment # Acute right upper quad abdominal pain with abnormal abdominal CT showing enlargement of right lobe liver lesion compared to before - patient states she had liver lesion ablated years ago and was told it was completely gone. MRI of liver of liver done this am, results ending. GI following # Mildly enlarged heterogeneous left ovary with cysts seen on CT abd/pelvis (Radiology recommended to consider US) - transvaginal US done in ER and showed 2.7 cm benign functional cyst in the left ovary. Otherwise normal appearance of the left ovary with no evidence of ovarian torsion. # Hx of depresssion/Anxiety disorder - resumed home med # Hx of Endometriosis # Chronic Hypertension - resumed home antihypertensive meds # IBS (irritable bowel syndrome) # GERD Plan MRI noted- S/p liver Bx Still taking significant amounts of IV narcotics and nausea medications Will try to transition to oral, but pt pretty resistant Path will not be avail for some time Will have HB surg eval if other options Pain management as well Advance Directive: Full Code Discharge planning: TBD Mario Correia MD, Division of Hospitalist Medicine Inpatient Medical Services * Ruth Hinkle PA-C - 03/22/2022 9:47 AM EDT Department of Internal Medicine Gastroenterology Progress Note SUBJECTIVE: GI following for hepatic adenoma. Patient to have liver biopsy, ordered 03/21. She reports persistent abdominal pain that is not improved, requiring dilaudid every 3 hours. She reports nausea, denies vomiting. She was able to tolerat a breakfast sandwich for dinner. She denies fever, chills, chest pain, shortness of breath. Medications Scheduled Meds:Current Facility-Administered Medications: buPROPion (WELLBUTRIN XL) extended release tablet 300 mg, 300 mg, Oral, Daily dilTIAZem (CARDIZEM CD) extended release capsule 120 mg, 120 mg, Oral, Daily furosemide (LASIX) tablet 20 mg, 20 mg, Oral, Daily losartan (COZAAR) tablet 50 mg, 50 mg, Oral, Daily traZODone (DESYREL) tablet 50 mg, 50 mg, Oral, Nightly potassium chloride (KLOR-CON M) extended release tablet 10 mEq, 10 mEq, Oral, Daily with breakfast vitamin D (ERGOCALCIFEROL) capsule 50,000 Units, 50,000 Units, Oral, Weekly pantoprazole (PROTONIX) tablet 40 mg, 40 mg, Oral, QAM AC diphenhydrAMINE (BENADRYL) injection 25 mg, 25 mg, IntraVENous, Q6H PRN gabapentin (NEURONTIN) capsule 300 mg, 300 mg, Oral, Nightly promethazine (PHENERGAN) injection 12.5 mg, 12.5 mg, IntraMUSCular, Q6H PRN HYDROmorphone (DILAUDID) injection 0.5 mg, 0.5 mg, IntraVENous, Q3H PRN OR HYDROmorphone (DILAUDID) injection 1 mg, 1 mg, IntraVENous, Q3H PRN sodium chloride flush 0.9 % injection 5-40 mL, 5-40 mL, IntraVENous, 2 times per day sodium chloride flush 0.9 % injection 5-40 mL, 5-40 mL, IntraVENous, PRN 0.9 % sodium chloride infusion, , IntraVENous, PRN ondansetron (ZOFRAN-ODT) disintegrating tablet 4 mg, 4 mg, Oral, Q8H PRN OR ondansetron (ZOFRAN) injection 4 mg, 4 mg, IntraVENous, Q6H PRN polyethylene glycol (GLYCOLAX) packet 17 g, 17 g, Oral, Daily PRN HYDROmorphone (DILAUDID) injection 0.5 mg, 0.5 mg, IntraVENous, Once OBJECTIVE VITALS: BP 117/69 Pulse 96 Temp 98.2 F (36.8 C) (Temporal) Resp 18 Ht 5' 4 (1.626 m) Comment: per chart review Wt 181 lb (82.1 kg) SpO2 92% BMI 31.07 kg/m Average, Min, and Max for last24 hours Vitals: TEMPERATURE: Temp Av.2 F (36.8 C) Min: 98.1 F (36.7 C) Max: 98.2 F (36.8 C) RESPIRATIONS RANGE: Resp Av.3 Min: 16 Max: 18 PULSE RANGE: Pulse Av.5 Min: 91 Max: 96 BLOOD PRESSURE RANGE: Systolic (24hrs), Av , Min:102 , Max:117 ; Diastolic (24hrs), Av, Min:67, Max:69 PULSE OXIMETRY RANGE:SpO2 Av % Min: 92 % Max: 96 % No intake/output data recorded. Constitutional: No acute distress. Resting comfortably in bed. Appears in pain. Eyes: NCAT, Pupils are equal and round; Conjunctiva are not injected; Sclera are non-icteric. ENT: Ears/nose without external abnormalities. Oral mucosa is pink and moist. Neck: No JVD. No carotid bruits; No thyromegaly. Respiratory: Clear to auscultation bilaterally without any added sounds. Effort is normal Heart: Regular, Normal S1 and S2. No murmur; No added sounds. Abdomen: Normal BS, soft, tender diffusely over entire abdomen, non-distended; no hepatomegaly. Extremities/Skin: No LE edema; Skin warm to touch and well perfused. Musculoskeletal: Head - normocephalic. Neck - supple Psychiatric: AAO x 3, answers appropriately, normal mood, normal affect. Data Recent blood work, radiologic study and endoscopic study were reviewed with the patient. CBC: No results for input(s): WBC, RBC, HGB, HCT, MCV, MCH, MCHC, RDW, PLT, MPV in the last 72 hours. CMP: No results for input(s): NA, K, CL, CO2, BUN, CREATININE, GLUCOSE, CALCIUM, PROT, LABALBU, BILITOT,ALKPHOS, AST, ALT in the last 72 hours. PT/INR: Recent Labs 03/22/22 1253 INR 1.0 Radiologic Review 03/20/22 MRI abdomen w wo contrast: IMPRESSION: Background of fatty infiltration, a lesion persists within the right lobe of liver which has become enlarged in the AP orientation now measuring up to 3.9 cm. Perhaps repeat biopsy with ultrasound guidance should be considered (since this was well delineated with ultrasound). Endoscopic Review Colonoscopy 03/15/[address] Jimenes for chronic diarrhea, blood in stool: Impression: - Internal hemorrhoids. - The examined portion of the ileum was normal. - Normal mucosa in the entire examined colon. Biopsied. EGD 03/15/[address] Yudy for GERD: Impression: - Esophagogastric landmarks identified. - Normal esophagus. - Gastritis. Biopsied. - Normal first portion of the duodenum and second portion of the duodenum. Biopsied. A. Duodenum, biopsy: - Duodenal mucosa with no diagnostic abnormalities. B. Stomach, biopsy: - Gastric antral mucosa with erosive gastropathy. C. Colon, random biopsy: - Colonic mucosa with no diagnostic abnormalities ASSESSMENT AND PLAN Hepatic adenoma - dx in 2018 via percutaneous liver biopsy. CT abd/pelvis 03/17/22 re-demonstrates lesion with increased size, to 3.3 cm (read as 33.1 mm on actual image). Abdominal pain - recent unremarkable EGD/colonoscopy with [facility]. Lipase wnl. CT abd/pelvis without acute process. Pain similar to prior when patient had adenoma. PLAN: - MRI showing increase in size of hepatic adenoma recommending repeat biopsy per radiology notes. Ordered US guided liver biopsy 03/21. - From a GI perspective, patient's pain is likely 2/2 to hepatic lesion. If pain is persistent, recommend hepatobiliary surgical consult for further evaluation. - Recommend repeating LFT's and INR tomorrow morning. - Continue other supportive care and medical management. - Patient will need close f/u with PCP and GI clinic. [phone] to make f/u appointment as soon as patient is d/c'ed home. Patient voiced understanding and agreed of this recommendation. - The GI/Liver consult service will sign off. Please call if there are any questions, concerns or change of patient's GI condition. Thanks. * Mario Correia MD - 03/21/2022 12:35 PM EDT Images from the original note were not included. Hospitalist Progress Note 03/21/2022 12:35 PM [phone]: Please page me for patient care issues. [phone]: Please page [facility] night Hospitalist for any issues. Subjective: Admit Date: 03/17/2022 PCP: No primary care provider on file. Room#: [id number] Interval History: Patient doing okay. Still with some ruq pain. At first complains of nausea, but then reports this is better ADULT DIET; Regular ADULT ORAL NUTRITION SUPPLEMENT; PM Snack; Other Oral Supplement; Caridad Seamless Standard 1.0 Patient Vitals for the past 96 hrs (Last 3 readings): Weight 03/17/22 1938 181 lb (82.1 kg) 03/17/22 1501 180 lb (81.6 kg) Medications: sodium chloride buPROPion 300 mg Oral Daily dilTIAZem 120 mg Oral Daily furosemide 20 mg Oral Daily losartan 50 mg Oral Daily traZODone 50 mg Oral Nightly potassium chloride 10 mEq Oral Daily with breakfast [START ON 03/22/2022] vitamin D 50,000 Units Oral Weekly pantoprazole 40 mg Oral QAM AC gabapentin 300 mg Oral Nightly sodium chloride flush 5-40 mL IntraVENous 2 times per day HYDROmorphone 0.5 mg IntraVENous Once LABS: CBC: Recent Labs 03/19/22150 WBC 8.6 RBC 3.72* HGB 12.4 HCT 36.3 MCV 97.5 RDW 12.7 PLT 194 BMP: Recent Labs 03/19/22 015 NA 134* K 4.1 CL 104 CO2 25 BUN 15 CREATININE 0.88 GLUCOSE 96 CALCIUM 8.6 ANIONGAP 6 LIVER PROFILE: Recent Labs 03/19/22150 AST 41 ALT 51* BILITOT 0.3 ALKPHOS 62 LABALBU 3.6 PROT 6.1* PT/INR: No results for input(s): PROTIME, INR in the last 72 hours. CARDIAC ENZYMES: No results for input(s): TROPONINI in the last 72 hours. Procalcitonin: No results found for: PROCAL Objective: Vitals: BP 110/76 Pulse 97 Temp 98.5 F (36.9 C) (Temporal) Resp 20 Ht 5' 4 (1.626 m) Comment: per chart review Wt 181 lb (82.1 kg) SpO2 95% BMI 31.07 kg/m Pulse Ox: SpO2 Av % Min: 93 % Max: 95 % Supplemental O2: General appearance: No apparent distress, appears stated age and cooperative with exam HEENT: Eyes: No scleral icterus Oral: Tongue is semi-moist Cardiovascular: S1S2 heard, RRR Respiratory: Clear to auscultation bilaterally Abdomen: Soft, +pain to palp of RUQ non-distended with normal bowel sounds. Musculoskeletal: No obvious deformities seen Skin: No visible rashes or lesions. Assessment # Acute right upper quad abdominal pain with abnormal abdominal CT showing enlargement of right lobe liver lesion compared to before - patient states she had liver lesion ablated years ago and was told it was completely gone. MRI of liver of liver done this am, results ending. GI following # Mildly enlarged heterogeneous left ovary with cysts seen on CT abd/pelvis (Radiology recommended to consider US) - transvaginal US done in ER and showed 2.7 cm benign functional cyst in the left ovary. Otherwise normal appearance of the left ovary with no evidence of ovarian torsion. # Hx of depresssion/Anxiety disorder - resumed home med # Hx of Endometriosis # Chronic Hypertension - resumed home antihypertensive meds # IBS (irritable bowel syndrome) # GERD Plan MRI noted--will defer to GI. prob needs Bx again on lesion. Pt at this time desires to change GI care to [facility]? Cont supportive care Pt both complains of pain and nausea and also doesn't want me to change to clears , etc--will follow Advance Directive: Full Code Discharge planning: TBD Mario Correia MD, MD Division of Hospitalist Medicine Inpatient Medical Services PAGER: [phone] * Glenn Buenrostro MD - 03/21/2022 11:47 AM EDT GASTROENTEROLOGY PROGRESS NOTE Patient: Joan Foley : 1980 Primary Care Physician: No primary care provider on file. Subjective: Patient feeling alright this morning. No acute issues overnight. Scheduled Meds: buPROPion 300 mg Oral Daily dilTIAZem 120 mg Oral Daily furosemide 20 mg Oral Daily losartan 50 mg Oral Daily traZODone 50 mg Oral Nightly potassium chloride 10 mEq Oral Daily with breakfast [START ON 03/22/2022] vitamin D 50,000 Units Oral Weekly pantoprazole 40 mg Oral QAM AC gabapentin 300 mg Oral Nightly sodium chloride flush 5-40 mL IntraVENous 2 times per day HYDROmorphone 0.5 mg IntraVENous Once Continuous Infusions: sodium chloride Objective: BP 110/76 Pulse 97 Temp 98.5 F (36.9 C) (Temporal) Resp 20 Ht 5' 4 (1.626 m) Comment: per chart review Wt 181 lb (82.1 kg) SpO2 95% BMI 31.07 kg/m No intake/output data recorded. GENERAL: Pleasant and NAD HEENT: NCAT, PERRLA, EOMI, Scleral anicteric. Oropharhynx clear with no erythema or exudate. Neck supple, no cervical LAD or thyromegaly. CV: RRR, NL S1/S2, no murmurs. Distal pulses palpable and equal b/l. LUNGS: CTA b/l. Normal percussion and palpation. No W/R/R. ABD: + BS, soft, non-tender and non-distended. No hepatosplenomegaly. No mass felt. No rebound or guarding. EXT: No C/C/E. No muscle atrophy. CBC: Recent Labs 03/19/22150 WBC 8.6 HGB 12.4 HCT 36.3 PLT 194 CMP: Recent Labs 03/19/22150 NA 134* K 4.1 CL 104 CO2 25 BUN 15 CREATININE 0.88 GLUCOSE 96 CALCIUM 8.6 HEPATIC: Recent Labs 03/19/22150 AST 41 ALT 51* BILITOT 0.3 ALKPHOS 62 LIPASE/AMYLASE: No results for input(s): AMYLASE, LIPASE in the last 72 hours. LACTATE: No results for input(s): LACTA in the last 72 hours. TROPONIN: No results for input(s): TROPONINI in the last 72 hours. BNP: No results for input(s): BNP in the last 72 hours. LIPIDS: No results for input(s): CHOL, HDL in the last 72 hours. Invalid input(s): LDLCALCU INR: No results for input(s): INR in the last 72 hours. Imaging: MRI ABDOMEN W WO CONTRAST Result Date: 03/20/2022 Patient Name: JOAN FOLEY Magnetic Resonance Imaging ACCESSION EXAM DATE/TIME PROCEDURE ORDERING PROVIDER [id number] 03/20/2022 08:58 EDT MRI Abdomen w/ + w/o LEATHA HINKLE BROOKE Contrast CPT code 08076 Reason For Exam (MRI Abdomen w/ + w/o Contrast) hepatic lesion on CT, MRI and MRCP Report MRI ABDOMEN WITHOUT AND WITH CONTRAST (WITH ATTENTION TO THE LIVER): CLINICAL INDICATION: Enlarging hepatic lesion. TECHNIQUE: Coronal and transaxial fast spin density along with transaxial in phase and opposed phase gradient echo, fast T2 fat suppression sequences and diffusion-weighted sequences were formed through the abdomen with attention to the liver. MRCPwas performed. Multiphase dynamic postcontrast transaxial T1 along with delayed coronal T1 fat suppression sequences were performed as well following administration of 8 ml Gadovist gadolinium contrast. COMPARISON: CT from 03/17/2022, MRI from 07/19/[address] from 06/17/2018. Patient also underwent biopsy on 08/07/2018 FINDINGS: Liver: Normal size and contour. There is generalized diminished signalrelative to the spleen on opposed phase gradient echo sequence, corresponding to diffuse fatty infiltration. There is, however, a lesion within the right lobe between segments 5 and 8 which is somewhat enlarged in the AP orientation as compared to prior MRI. Dimensions are currently 3.9 cm AP, 2.0 cm transverse and 2.0 cm cephalocaudad. This was previously more rounded with a diameter of 2 cm Signal characteristics including some central T1 hyperintensity with heterogeneous T2 hyperintensity. There is a peripheral rim of diminished signal on T1 which demonstrates some enhancement. No other sig nificant central enhancement is noted. Biliary tree: All bladder is absent. No biliary dilatation. Spleen: Normal Adrenals:Normal Pancreas: Homogeneous enhancement without mass or peripancreatic fluid. Kidneys: Symmetric contrast enhancement without mass or hydronephrosis Magnetic Resonance ImagingReport Aorta: Normal caliber Visualized Osseous structures: Normal IMPRESSION: Background of fatty infiltration, a lesion persists within the right lobe of liver which has become enlarged in the AP orientation now measuring up to 3.9 cm. Perhaps repeat biopsy with ultrasound guidance should be considered (since this was well delineated with ultrasound). Report Dictated on --- Final --- Dictated: 03/20/2022 3:59 pm Dictating Physician: MD SINGH JEFFREY Signed Dateand Time: 03/20/2022 4:04 pm Signed by: MD SINGH JEFFREY Transcribed Date and Time: 03/20/2022 3:59 CT Abdomen Pelvis Wo Contrast Result Date: 03/17/2022 Patient Name: JOAN FOLEY Computed Tomography ACCESSION EXAM DATE/TIME PROCEDURE ORDERING PROVIDER [id number] 03/17/2022 16:[address] Abdomen/Pelvis (Vielka VALDEZ MD, SEGUN Calvo PO, No IV) CPT code 39719 Reason For Exam (CT Abdomen/Pelvis (No PO, No IV)) diffuse abdominal pain, nausea, vomiting, diarrhea. epigastric and RUQ especially. jose ramon, appy, hysterectomy. just had EGD and colonoscopy 48 hours ago. PERF? Ileus? SBO? No bowel sounds. Report ABDOMINAL ANDPELVIC CT WITHOUT CONTRAST History: Abdominal pain, nausea, vomiting, prior cholecystectomy and appendectomy recent EGD and colonoscopy Comparison CT: 06/17/2018 Technique: Multislice volume acquisition abdominal and pelvic axial CT sections from the diaphragm through the symphysis pubis without oralor IV contrast enhancement . Multiplanar sagittal and coronal reconstructed images also obtained. Findings: Partially visualized lung bases show no acute infiltrate. Abdominal CT shows diffuse hepatic fatty infiltration. In the right hepatic lobe, there is opacification 3.3 mm heterogeneous lesion w hich is larger compared to 06/27/2018 CT and 07/19/2016 MRI and was reportedly concerning for adenoma versus malignancy/metastasis. This could not be properly evaluated on the current unenhanced CT. The unenhanced spleen, pancreas, both adrenals, and both kidneys are unremarkable. There are no renalor ureteral calculi or hydronephrosis bilaterally. There is a small midline supraumbilical ventral hernia containing fat. Pelvic CT shows mildly distended urinary bladder without calculus. Uterus is absent and there is tiny, 5 mm hyperdense/calcified focus in the vaginal cuff, not significantly changed. There is heterogeneous, 4.6 cm left adnexal structure suggesting enlarged ovary with cysts. The exam is limited without contrast enhancement. There is no abdominal or pelvic lymphadenopathy, fluid collections, appreciable free air, soft tissue inflammation, or significant bowel distention. There is history of appendectomy. IMPRESSION: Fatty liver with heterogeneous right lobe lesion which islarger compared to the prior CT/MRI, requiring further evaluation to exclude malignancy versus other etiologies as previously described. Contrast enhanced MRI suggested. Small ventral hernia containing fat. Mildly enlarged heterogeneous left ovary with cysts. Consider ultrasound. Computed Tomography Report No abdominal or pelvic free air or fluid collections. Report Dictated on --- Final --- Dictating Physician: MD SHANE AHMAD Signed Date and Time: 03/17/2022 5:25 pm Signed by: MD SHANE AHMAD Transcribed Date and Time: 03/17/2022 5:26 US NON OB TRANSVAGINAL Result Date: 03/17/2022 Patient Name: JOAN FOLEY Ultrasound ACCESSION EXAM DATE/TIME PROCEDURE ORDERING PROVIDER [id number] 03/17/2022 16:50 EDT US Transvaginal MD COURTNEY, SEGUN Calvo CPT code 95818 Reason For Exam (US Transvaginal) looking for ovarian torsion or ruptured cyst. suprapubic pain, radiates right flank Report PELVIC ULTRASOUND CLINICAL INDICATION: Suprapubic and right flank pain. Transvaginal sonographic images of the pelvis were obtained. COMPARISON: CT scan of the abdomen and pelvis, same date. FINDINGS: UTERUS: Surgically absent OVARIES: Right: Surgically absentLeft: 4.6 x 3.3 x 2.6 cm Parenchyma: The left ovary contains a 2.7 cm cyst with a daughter cyst and simple fluid. There is also a 1.4 cm follicle. Few tiny microcalcifications in the left ovary. Doppler: Normal color and spectral Doppler flow is seen. FLUID: No free fluid. OTHER: No adnexal masses are identified. IMPRESSION: Status post hysterectomy and right oophorectomy. 2.7 cm benign functional cyst in the left ovary. Otherwise normal appearance of the left ovary with no evidence of ovarian torsion. Ultrasound Report Report Dictated on --- Final --- DictatingPhysician: MD SARABIA THOMAS Signed Date and Time: 03/17/2022 5:11 pm Signed by: MD SARABIA THOMAS Transcribed Date and Time: 03/17/2022 5:12 Radiologic Review MRCP/MRI 03/20/22: Abdominal CT shows diffuse hepatic fatty infiltration. In the right hepatic lobe, there is opacification 3.3 mm heterogeneous lesion which is larger compared to 06/27/2018 CT and 07/19/2016 MRI and was reportedly concerning for adenoma versus malignancy/metastasis. This could not be properly evaluated on the current unenhanced CT. UTERUS: Surgically absent OVARIES: Right: Surgically absent Left: 4.6 x 3.3 x 2.6 cm Parenchyma: The left ovary contains a 2.7 cm cyst with a daughter cyst and simple fluid. There is also a 1.4 cm follicle. Few tiny microcalcifications in the left ovary. Doppler: Normal color and spectral Doppler flow is seen. FLUID: No free fluid. OTHER: No adnexal masses are ident ified. IMPRESSION: Status post hysterectomy and right oophorectomy. 2.7 cm benign functional cyst in the left ovary. Otherwise normal appearance of the left ovary with no evidence of ovarian torsion. CT abdomen and pelvis wo contrast 03/17/22: IMPRESSION: Fatty liver with heterogeneous right lobe lesion which is larger compared to the prior CT/MRI, requiring further evaluation to exclude malignancy versus other etiologies as previously described. Contrast enhanced MRI suggested. Small ventral hernia containing fat. Mildly enlarged heterogeneous left ovary with cysts. Consider ultrasound. Computed Tomography Report No abdominal or pelvic free air or fluid collections. MRI abdomen w wo contrast 07/19/2018: IMPRESSION: 1. A 2 cm lesion in [...] with Dr. Greenberg at 9:27 AM 07/20/2018. Liver biopsy 08/07/2018: DIAGNOSIS: LIVER, RIGHT LOBE MASS, CORE BIOPSY - WELL DIFFERENTIATED HEPATOCELLULAR NEOPLASM, FAVOR HEPATIC ADENOMA. Endoscopic Review Colonoscopy 03/15/[address] Jimenes for chronic diarrhea, blood in stool: Impression: - Internal hemorrhoids. - The examined portion of the ileum was normal. - Normal mucosa in the entire examined colon. Biopsied. EGD 03/15/[address] Jimenes for GERD: Impression: - Esophagogastric landmarks identified. - Normal esophagus. - Gastritis. Biopsied. - Normal first portion of the duodenum and second portion of the duodenum. Biopsied. A. Duodenum, biopsy: - Duodenal mucosa with no diagnostic abnormalities. B. Stomach, biopsy: - Gastric antral mucosa with erosive gastropathy. C. Colon, random biopsy: - Colonic mucosa with no diagnostic abnormalities PROBLEMS: Principal Problem: Abdominal mass, RUQ (right upper quadrant) Active Problems: Abdominal pain, right upper quadrant Resolved Problems: * No resolved hospital problems. * IMPRESSION/RECOMMENDATIONS: Hepatic adenoma - dx in 2018 via percutaneous liver biopsy. CT abd/pelvis 03/17/22 re-demonstrates lesion with increased size, to 3.3 cm (read as 33.1 mm on actual image). Abdominal pain - recent unremarkable EGD/colonoscopy with [facility]. Lipase wnl. CT abd/pelvis without acute process. Pain similar to prior when patient had adenoma. PLAN: -MRI showing increase in size of hepatic adenoma recommending repeat biopsy per radiology notes. -Will order US guided liver biopsy for tomorrow. -INR today -Continue to trend liver enzymes -Continue medical management and supportive care. Attending Supervising Physician's Attestation Statement I performed a history and physical examination on the patient and discussed the management with thenurse practitioner. I reviewed and agree with the findings and plan as documented in her note . Included in the assessment was a substantive amount of time which I spent personally on the MDM (medical decision making) phase of this patient's care Hepatic adenoma, increasing in size by MRI 03/20 Plan image-guided biopsy as next step. * Jerrica Gipson MD - 03/20/2022 5:32 PM EDT Images from the original note were not included. Hospitalist Progress Note 03/20/2022 5:32 PM [phone]: Please page me for patient care issues. [phone]: Please page [facility] night Hospitalist for any issues. Subjective: Admit Date: 03/17/2022 PCP: No primary care provider on file. Room#: [id number] Interval History: Patient doing okay. Still with some ruq pain. No chest pain or sob. No NV. No fevers or chills ADULT DIET; Regular ADULT ORAL NUTRITION SUPPLEMENT; PM Snack; Other Oral Supplement; GeckoGo Standard 1.0 Patient Vitals for the past 96 hrs (Last 3 readings): Weight 03/17/22 1938 181 lb (82.1 kg) 03/17/22 1501 180 lb (81.6 kg) Medications: sodium chloride buPROPion 300 mg Oral Daily dilTIAZem 120 mg Oral Daily furosemide 20 mg Oral Daily losartan 50 mg Oral Daily traZODone 50 mg Oral Nightly potassium chloride 10 mEq Oral Daily with breakfast [START ON 03/22/2022] vitamin D 50,000 Units Oral Weekly [START ON 03/21/2022] pantoprazole 40 mg Oral QAM AC sodium chloride flush 5-40 mL IntraVENous 2 times per day HYDROmorphone 0.5 mg IntraVENous Once LABS: CBC: Recent Labs 03/19/22 015 WBC 8.6 RBC 3.72* HGB 12.4 HCT 36.3 MCV 97.5 RDW 12.7 PLT 194 BMP: Recent Labs 03/19/22 015 NA 134* K 4.1 CL 104 CO2 25 BUN 15 CREATININE 0.88 GLUCOSE 96 CALCIUM 8.6 ANIONGAP 6 LIVER PROFILE: Recent Labs 03/19/22 015 AST 41 ALT 51* BILITOT 0.3 ALKPHOS 62 LABALBU 3.6 PROT 6.1* PT/INR: No results for input(s): PROTIME, INR in the last 72 hours. CARDIAC ENZYMES: No results for input(s): TROPONINI in the last 72 hours. Procalcitonin: No results found for: PROCAL Objective: Vitals: BP 129/78 Pulse 81 Temp 97.1 F (36.2 C) (Temporal) Resp 20 Ht 5' 4 (1.626 m) Comment: per chart review Wt 181 lb (82.1 kg) SpO2 96% BMI 31.07 kg/m Pulse Ox: SpO2 Av % Min: 96 % Max: 96 % Supplemental O2: General appearance: No apparent distress, appears stated age and cooperative with exam HEENT: Eyes: No scleral icterus Oral: Tongue is semi-moist Cardiovascular: S1S2 heard, RRR Respiratory: Clear to auscultation bilaterally Abdomen: Soft, +pain to palp of RUQ non-distended with normal bowel sounds. Musculoskeletal: No obvious deformities seen Skin: No visible rashes or lesions. Assessment # Acute right upper quad abdominal pain with abnormal abdominal CT showing enlargement of right lobe liver lesion compared to before - patient states she had liver lesion ablated years ago and was told it was completely gone. MRI of liver of liver done this am, results ending. GI following # Mildly enlarged heterogeneous left ovary with cysts seen on CT abd/pelvis (Radiology recommended to consider US) - transvaginal US done in ER and showed 2.7 cm benign functional cyst in the left ovary. Otherwise normal appearance of the left ovary with no evidence of ovarian torsion. # Hx of depresssion/Anxiety disorder - resumed home med # Hx of Endometriosis # Chronic Hypertension - resumed home antihypertensive meds # IBS (irritable bowel syndrome) # GERD Plan MRI of liver done this am, results pending. GI also following. Continue all other tx the same. Advance Directive: Full Code Discharge planning: BRYAN GIPSON MD, MD Division of Hospitalist Medicine Inpatient Medical Services PAGER: [phone] * Sadia Chowdhury RN - 03/20/2022 5:09 PM EDT Pt's IV infiltrated and thus didn't result in her receiving full dose of pain medication. RN requested to give dilaudid one time dose and zofran early. Confirmed that was fine due to pt not receiving full dose. * Chetna Laws MS, RD, LD - 03/20/2022 12:33 PM EDT Comprehensive Nutrition Assessment Type and Reason for Visit: Initial,RD Nutrition Re-Screen/LOS (Weight loss) Nutrition Recommendations/Plan: 1. Would continue with liberalized/Regular PO diet as ordered, allowing pt to order what is best tolerated for now (given ongoing/chronic diarrhea issue, has tried to eliminate foods/food groups in the past without full clarity on possible GI/food triggers, pt essentially only avoids raw lettuce/salad and otherwise tries to eat what she can PO); can consider further dietary modification/adjustment pending further GI work-up. 2. Per MNT protocol RD to trial GeckoGo Standard 1.0 product (chocolate), provides 325 kcal & 16 gm protein per 11 ounce shake. 3. Monitor adequacy/tolerance of PO intake during admission. 4. RD to also monitor weight (obtain standing scale if able), labs, fluid, GI management/bowel function, overall nutritional status & follow up weekly. Malnutrition Assessment: Malnutrition Status: At risk for malnutrition (Comment) (likely acute on chronically, need to confirm pt's CBW, continue to monitor adequacy of PO intakes as well as ongoing bowel function/work-up) (03/20/22 1229) Context: Acute Illness Findings of the 6 clinical characteristics of malnutrition: Energy Intake: Mild decrease in energy intake (Comment) (Hard to 100% determine if PO intake was different PROJECT COORDINATOR RN however long-standing hx of diarrhea noted, very possible pt not absorbing good nutrition d/t same, noted very recent scopes/prep as well) Weight Loss: Greater than 5% over 1 month (pt reporting weight of ~191# 3 weeks ago down to 180# few days before admit, this would equal ~6% weight loss which is significant; too many items present in bed to obtain CBW) Body Fat Loss: Unable to assess (RD did not complete, pt appeared rather uncomfortable in bed) Muscle Mass Loss: Unable to assess Fluid Accumulation: No significant fluid accumulation (per chart) Chargemaster Specialist Strength: Not Performed Nutrition Assessment: Pt with PMH including Endometriosis (s/p hysterectomy), Chronic HTN, Anxiety/depression and Liver lesion (hx of liver biopsy in 2018) presented with c/o abdominal pain specifically in right upper quadrant as well as epigastric pain; per chart pt had EGD/cscope completed on 03/15/22, EGD was for chronic acid reflux and Lieberman's esophagus and cscope was for bloody diarrhea; both conditions noted to still be present, pt noted to take omeprazole daily at home for epigastric pain and diarrhea noted to be chronic/ongoing (? IBS, no official dx for this or IBD per MD documentation). Pt endorsing ongoing pain s/p scopes which warranted presentation. Pt denied hematochezia or melena, only had one episode of nausea and vomiting. No vaginal bleeding/discharge noted. Noted transvaginal ultrasound was completed in ED (pt with hx of ovarian cysts) and showed 2.7cm benign functional cyst in left ovary and was otherwise normal appearance of left ovary without evidence of ovarian torsion. CTAP completed 03/17 and re-dmonstrated 'liver lesion with increased size, to 3.3cm', lipase was WNL this admit andCTAP otherwise without acute process. GI was consulted here and recommended MRI with contrast for further evaluation of hepatic adenoma, LFTs continue to be monitored (unremarkable overall), supportive care/pain management otherwise being addressed (pain regimen had been increased). PROJECT COORDINATOR RN pt noted to reside at home with her spouse. Regular diet remains ordered. RD visited pt in room this date; breakfast tray was fully consumed (breakfast stack, yogurt) however pt states her stomach is already gurgling and it 'isnt sitting well', lunch tray of chicken salad sandwich and soup also present but pt not ready to try eating; in short pt reports 'years and years' of ongoing diarrhea of unknown etiology (5-10 BMs per day per pt, typically right after eating), pt states she had MRI abdomen this morning to evaluate her liver and that biopsies from prior scopes still pending. Pt herself referenced possible 'IBS', stating she had tried keeping a 'food journal' and doing an elimination diet in the past however this didn't seem to narrow anything down. Pt estimates weight loss from ~191# (this was her weight at home ~February 26) to last weight at home (few days ago) of ~180#; states she isn't super upset at loss but that she wasn't trying to lose this much. Pt in the past has tried ONS (like Ensure) in the past but didn't feel it did much of anything, would like to try GeckoGo product here. (RD deferred making very specific diet recommendations at this time given pt's long- standing hx of diarrhea and self-regulation of same (states salads immediately go thru her).) Nutrition Related Findings: +BS, ongoing/chronic diarrhea per pt, s/p CTAP and MRI abdomen here; No edema indicated; medications include PPI, lasix, Kclor-con; labs reviewed, only ALT slightly elevated Wound Type: None (Stefano 20) Current Nutrition Intake & Therapies: Average Meal Intake: 76-100% (all of breakfast however feels this is 'about to go right through me') Average Supplements Intake: None Ordered ADULT DIET; Regular Anthropometric Measures: Height: 5' 4 (162.6 cm) (per chart review) [place] Body Weight (IBW): 120 lbs (55 kg) Admission Body Weight: 180 lb (81.6 kg) (stated) Current Body Weight: (too many items/blankets present in pt's bed), IBW. Usual Body Weight: 191 lb (86.6 kg) (per pt this was her weight ~3 weeks ago; no recent weight hx in chart to review) Weight Adjustment For: No Adjustment BMI Categories: Obese Class 1 (BMI 30.0-34.9) Estimated Daily Nutrient Needs: Energy Requirements Based On: Kcal/kg Weight Used for Energy Requirements: [place] Energy (kcal/day): 1300-9145 kcal/day (25-30 kcal/kg) Weight Used for Protein Requirements: [place] Protein (g/day): 55-65 gm protein/day (1.0-1.2 gm protein/kg) Fluid (ml/day): per Nutrition Diagnosis: Unintended weight loss related to altered GI function,impaired nutrient utilization as evidenced by(ongoing diarrhea per pt, resulting in ~6% weight loss in 3 weeks per her report) Nutrition Interventions: Food and/or Nutrient Delivery: Continue Current Diet,Start Oral Nutrition Supplement Nutrition Education/Counseling: No recommendation at this time (pending further work-up; essentially leaving PO intake up to pt for now, whatever is best tolerated, pt aware of some blatant GI/food triggers but otherwise isn't sure how to manage diarrhea) Coordination of Nutrition Care: Continue to monitor while inpatient Plan of Care discussed with: pt Goals: Goals: PO intake 50% or greater (meals/ONS, with weight stable) Nutrition Monitoring and Evaluation: Food/Nutrient Intake Outcomes: Diet Advancement/Tolerance,Food and Nutrient Intake,Supplement Intake Physical Signs/Symptoms Outcomes: Biochemical Data,Diarrhea,GI Status,Meal Time Behavior,Nutrition Focused Physical Findings,Skin,Weight Discharge Planning: Too soon to determine Chetna Laws MS, RD, LD Contact: ysamani or *[phone] * Glenn Buenrostro MD - 03/20/2022 8:55 AM EDT GASTROENTEROLOGY PROGRESS NOTE Patient: Joan Foley : 1980 Primary Care Physician: No primary care provider on file. Subjective: Patient feeling ok today. Scheduled Meds: buPROPion 300 mg Oral Daily dilTIAZem 120 mg Oral Daily furosemide 20 mg Oral Daily losartan 50 mg Oral Daily traZODone 50 mg Oral Nightly potassium chloride 10 mEq Oral Daily with breakfast [START ON 03/22/2022] vitamin D 50,000 Units Oral Weekly [START ON 03/21/2022] pantoprazole 40 mg Oral QAM AC sodium chloride flush 5-40 mL IntraVENous 2 times per day HYDROmorphone 0.5 mg IntraVENous Once Continuous Infusions: sodium chloride Objective: BP 129/78 Pulse 81 Temp 97.1 F (36.2 C) (Temporal) Resp 18 Ht 5' 4 (1.626 m) Wt 181 lb (82.1 kg) SpO2 96% BMI 31.07 kg/m I/O last 3 completed shifts: In: 600 [P.O.:600] Out: - CBC: Recent Labs 03/17/22 1542 03/19/22 0151 WBC 12.0* 8.6 HGB 13.8 12.4 HCT 40.0 36.3 PLT 228 194 CMP: Recent Labs 03/17/22 1542 03/19/22 0151 NA 135 134* K 4.2 4.1 CL 103 104 CO2 24 25 BUN 8* 15 CREATININE 0.71 0.88 GLUCOSE 99 96 CALCIUM 10.1 8.6 HEPATIC: Recent Labs 03/17/22 1542 03/19/22 0151 AST 40 41 ALT 57* 51* BILITOT 0.6 0.3 ALKPHOS 68 62 LIPASE/AMYLASE: Recent Labs 03/17/22 1542 LIPASE 50 LACTATE: No results for input(s): LACTA in the last 72 hours. TROPONIN: No results for input(s): TROPONINI in the last 72 hours. BNP: No results for input(s): BNP in the last 72 hours. LIPIDS: No results for input(s): CHOL, HDL in the last 72 hours. Invalid input(s): LDLCALCU INR: No results for input(s): INR in the last 72 hours. Imaging: CT Abdomen Pelvis Wo Contrast Result Date: 03/17/2022 Patient Name: JOAN FOLEY Computed Tomography ACCESSION EXAM DATE/TIME PROCEDURE ORDERING PROVIDER [id number] 03/17/2022 16:[address] Abdomen/Pelvis (Vielka VALDEZ MD, DOUGALAS R. PO, No IV) CPT code 96227 Reason For Exam (CT Abdomen/Pelvis (No PO, No IV)) diffuse abdominal pain, nausea, vomiting, diarrhea. epigastric and RUQ especially. jose ramon, appy, hysterectomy. just had EGD and colonoscopy 48 hours ago. PERF? Ileus? SBO? No bowel sounds. Report ABDOMINAL ANDPELVIC CT WITHOUT CONTRAST History: Abdominal pain, nausea, vomiting, prior cholecystectomy and appendectomy recent EGD and colonoscopy Comparison CT: 06/17/2018 Technique: Multislice volume acquisition abdominal and pelvic axial CT sections from the diaphragm through the symphysis pubis without oralor IV contrast enhancement . Multiplanar sagittal and coronal reconstructed images also obtained. Findings: Partially visualized lung bases show no acute infiltrate. Abdominal CT shows diffuse hepatic fatty infiltration. In the right hepatic lobe, there is opacification 3.3 mm heterogeneous lesion w hich is larger compared to 06/27/2018 CT and 07/19/2016 MRI and was reportedly concerning for adenoma versus malignancy/metastasis. This could not be properly evaluated on the current unenhanced CT. The unenhanced spleen, pancreas, both adrenals, and both kidneys are unremarkable. There are no renalor ureteral calculi or hydronephrosis bilaterally. There is a small midline supraumbilical ventral hernia containing fat. Pelvic CT shows mildly distended urinary bladder without calculus. Uterus is absent and there is tiny, 5 mm hyperdense/calcified focus in the vaginal cuff, not significantly changed. There is heterogeneous, 4.6 cm left adnexal structure suggesting enlarged ovary with cysts. The exam is limited without contrast enhancement. There is no abdominal or pelvic lymphadenopathy, fluid collections, appreciable free air, soft tissue inflammation, or significant bowel distention. There is history of appendectomy. IMPRESSION: Fatty liver with heterogeneous right lobe lesion which islarger compared to the prior CT/MRI, requiring further evaluation to exclude malignancy versus other etiologies as previously described. Contrast enhanced MRI suggested. Small ventral hernia containing fat. Mildly enlarged heterogeneous left ovary with cysts. Consider ultrasound. Computed Tomography Report No abdominal or pelvic free air or fluid collections. Report Dictated on --- Final --- Dictating Physician: MD SHANE AHMAD Signed Date and Time: 03/17/2022 5:25 pm Signed by: MD SHANE AHMAD Transcribed Date and Time: 03/17/2022 5:26 US NON OB TRANSVAGINAL Result Date: 03/17/2022 Patient Name: JOAN FOLEY Ultrasound ACCESSION EXAM DATE/TIME PROCEDURE ORDERING PROVIDER [id number] 03/17/2022 16:50 EDT US Transvaginal MD VALDEZ DOUGALAS R. CPT code 00289 Reason For Exam (US Transvaginal) looking for ovarian torsion or ruptured cyst. suprapubic pain, radiates right flank Report PELVIC ULTRASOUND CLINICAL INDICATION: Suprapubic and right flank pain. Transvaginal sonographic images of the pelvis were obtained. COMPARISON: CT scan of the abdomen and pelvis, same date. FINDINGS: UTERUS: Surgically absent OVARIES: Right: Surgically absentLeft: 4.6 x 3.3 x 2.6 cm Parenchyma: The left ovary contains a 2.7 cm cyst with a daughter cyst and simple fluid. There is also a 1.4 cm follicle. Few tiny microcalcifications in the left ovary. Doppler: Normal color and spectral Doppler flow is seen. FLUID: No free fluid. OTHER: No adnexal masses are identified. IMPRESSION: Status post hysterectomy and right oophorectomy. 2.7 cm benign functional cyst in the left ovary. Otherwise normal appearance of the left ovary with no evidence of ovarian torsion. Ultrasound Report Report Dictated on --- Final --- DictatingPhysician: MD SARABIA THOMAS Signed Date and Time: 03/17/2022 5:11 pm Signed by: MD SARABIA THOMAS Transcribed Date and Time: 03/17/2022 5:12 PROBLEMS: Principal Problem: Abdominal mass, RUQ (right upper quadrant) Active Problems: Abdominal pain, right upper quadrant Resolved Problems: * No resolved hospital problems. * Radiologic Review CT abdomen and pelvis wo contrast 03/17/22: IMPRESSION: Fatty liver with heterogeneous right lobe lesion which is larger compared to the prior CT/MRI, requiring further evaluation to exclude malignancy versus other etiologies as previously described. Contrast enhanced MRI suggested. Small ventral hernia containing fat. Mildly enlarged heterogeneous left ovary with cysts. Consider ultrasound. Computed Tomography Report No abdominal or pelvic free air or fluid collections. MRI abdomen w wo contrast 07/19/2018: IMPRESSION: 1. A 2 cm lesion in [...] with Dr. Greenberg at 9:27 AM 07/20/2018. Liver biopsy 08/07/2018: DIAGNOSIS: LIVER, RIGHT LOBE MASS, CORE BIOPSY - WELL DIFFERENTIATED HEPATOCELLULAR NEOPLASM, FAVOR HEPATIC ADENOMA. Endoscopic Review Colonoscopy 03/15/[address] Jimenes for chronic diarrhea, blood in stool: Impression: - Internal hemorrhoids. - The examined portion of the ileum was normal. - Normal mucosa in the entire examined colon. Biopsied. EGD 03/15/[address] Jimenes for GERD: Impression: - Esophagogastric landmarks identified. - Normal esophagus. - Gastritis. Biopsied. - Normal first portion of the duodenum and second portion of the duodenum. Biopsied. A. Duodenum, biopsy: - Duodenal mucosa with no diagnostic abnormalities. B. Stomach, biopsy: - Gastric antral mucosa with erosive gastropathy. C. Colon, random biopsy: - Colonic mucosa with no diagnostic abnormalities. IMPRESSION/RECOMMENDATIONS: Hepatic adenoma - dx in 2018 via percutaneous liver biopsy. CT abd/pelvis 03/17/22 re-demonstrates lesion with increased size, to 3.3 cm (read as 33.1 mm on actual image). Abdominal pain - recent unremarkable EGD/colonoscopy with [facility]. Lipase wnl. CT abd/pelvis without acute process. Pain similar to prior when patient had adenoma. Plan: - Recommend MRI w contrast for further evaluation of hepatic adenoma, currently performed but report and imaging results are pending. - Continue to monitor LFT's. - Continue other medical management and supportive care. Attending Supervising Physician's Attestation Statement I performed a history and physical examination on the patient and discussed the management with thenurse practitioner. I reviewed and agree with the findings and plan as documented in her note . Included in the assessment was a substantive amount of time which I spent personally on the MDM (medical decision making) phase of this patient's care Hepatic adenoma. Increasing in size Abdominal pain Pending MRI/MRCP * Jerrica Gipson MD - 03/19/2022 2:10 PM EDT Images from the original note were not included. Hospitalist Progress Note 03/19/2022 2:11 PM [phone]: Please page me for patient care issues. [phone]: Please page [facility] night Hospitalist for any issues. Subjective: Admit Date: 03/17/2022 PCP: No primary care provider on file. Room#: 5132/305553 Interval History: Patient states pain meds initially helped RUQ pain but now not helping and not lasting too long. Doesn't look too comfortable. No chest pain or sob. No NV. No fevers or chills ADULT DIET; Regular Patient Vitals for the past 96 hrs (Last 3 readings): Weight 03/17/22 1938 181 lb (82.1 kg) 03/17/22 1501 180 lb (81.6 kg) Medications: sodium chloride sodium chloride flush 5-40 mL IntraVENous 2 times per day HYDROmorphone 0.5 mg IntraVENous Once LABS: CBC: Recent Labs 03/17/22 1542 03/19/22 0151 WBC 12.0* 8.6 RBC 4.17 3.72* HGB 13.8 12.4 HCT 40.0 36.3 MCV 95.9 97.5 RDW 12.3 12.7 PLT 228 194 BMP: Recent Labs 03/17/22 1542 03/19/22 0151 NA 135 134* K 4.2 4.1 CL 103 104 CO2 24 25 BUN 8* 15 CREATININE 0.71 0.88 GLUCOSE 99 96 CALCIUM 10.1 8.6 ANIONGAP 8 6 LIVER PROFILE: Recent Labs 03/17/22 1542 03/19/22 0151 AST 40 41 ALT 57* 51* BILITOT 0.6 0.3 ALKPHOS 68 62 LABALBU 4.8 3.6 PROT 7.6 6.1* PT/INR: No results for input(s): PROTIME, INR in the last 72 hours. CARDIAC ENZYMES: No results for input(s): TROPONINI in the last 72 hours. Procalcitonin: No results found for: PROCAL Objective: Vitals: BP 120/82 Pulse 78 Temp 98.6 F (37 C) (Temporal) Resp 18 Ht 5' 4 (1.626 m) Wt 181 lb (82.1 kg) SpO2 97% BMI 31.07 kg/m Pulse Ox: SpO2 Av.7 % Min: 97 % Max: 98 % Supplemental O2: General appearance: No apparent distress, appears stated age and cooperative with exam HEENT: Eyes: No scleral icterus Oral: Tongue is semi-moist Cardiovascular: S1S2 heard, RRR Respiratory: Clear to auscultation bilaterally Abdomen: Soft, +pain to palp of RUQ non-distended with normal bowel sounds. Musculoskeletal: No obvious deformities seen Skin: No visible rashes or lesions. Assessment # Acute right upper quad abdominal pain with abnormal abdominal CT showing enlargement of right lobe liver lesion compared to before - patient states she had liver lesion ablated years ago and was told it was completely gone. MRI of liver of liver pending. GI following # Mildly enlarged heterogeneous left ovary with cysts seen on CT abd/pelvis (Radiology recommended to consider US) - transvaginal US done in ER and showed 2.7 cm benign functional cyst in the left ovary. Otherwise normal appearance of the left ovary with no evidence of ovarian torsion. # Hx of depresssion/Anxiety disorder - resumed home med # Hx of Endometriosis # Chronic Hypertension - resumed home antihypertensive meds # IBS (irritable bowel syndrome) # GERD Plan Patient states pain meds initially helped but now not helping and not lasting too long. Will increase to 0.5mg dilaudid for moderate pain and 1mg for severe pain. Will leave frequency the same at every 3 hours PRN. MRI of liver pending. GI also following. Continue all other tx the same. Advance Directive: Full Code Discharge planning: TBD JERRICA GIPSON MD, MD Division of Hospitalist Medicine Inpatient Medical Services PAGER: [phone] * Madai Matamoros - 03/19/2022 1:56 PM EDT Nutrition rescreen completed. Patient referred to the Dietitian due to weight loss. MALCOLM Villanueva * Ruth Hinkle PA-C - 03/19/2022 9:34 AM EDT Department of Internal Medicine Gastroenterology Patient to have MRI w wo contrast, not yet completed. - Recommend continuing to monitor LFT's daily. - We will continue to follow for results of MRI. - Continue other pain management and supportive care. - GI to follow. Ruth Hinkle PA-C 03/19/2022 documented in this encounterSUMMA Work Phone: [phone]) 583-207106-16-2022 Miscellaneous Notes* Telephone Encounter - Nevin Lopes RN - 03/25/2022 12:52 PM EDT Pt called and is notified of providers results and instructions. Pt voices understanding. Pt reports she never started the Protonix, said the pharmacy said she didn't have any prescriptions. Pt reports she will call back in to schedule appointment when she had her schedule in front of her. Called [facility] and they said the Protonix was on hold, they will fill today. Nevin Lopes RN * Telephone Encounter - Dayanara Reyes APRN.LEATHA - 03/23/2022 1:34 PM EDT Called patient left VM - Colonoscopy internal hemorrhoids repeat colonoscopy 10 years for screening. EGD - erosive gastropathy - continue PPI (protonix 40mg) - if you taking any NSAIDs - or drinking Alcohol - She can follow up VV or OV Thanks Dayanara Reyes APRN.ECOMMERCE MANAGER documented in this encounterCrystal [facility]06-08-2022 Miscellaneous Notes* Telephone Encounter - Nadine Cantu RN - 03/17/2022 1:59 PM EDT Patient call in for right lower pain that is getting worse. Nurse Triage assessment completed with protocol recommending for disposition of Go to ED now. Care advice reviewed with patient, patient stated understanding. Reason for Disposition [1] SEVERE pain (e.g., excruciating) AND [2] present > 1 hour Answer Assessment - Initial Assessment Questions 1. LOCATION: Right lower abdomen, almost in pubic area, whole right side hurts. 2. RADIATION: Shoots to back, and up along rib cage to center, right shoulder hurts 3. ONSET: Last night 4. SUDDEN: Gradual, was intermittent at first now constant. 5. PATTERN Constant Pain 6. SEVERITY: Patient rates pain at the moment as a 7, 9 is the worst it has gotten. 7. RECURRENT SYMPTOM: Had upper right quadrant pain before but not where it goes to back and middle 8. CAUSE: Unsure Had Upper and lower endoscopy Tuesday; Was little crampy before but now she is in pain. 9. RELIEVING/AGGRAVATING FACTORS: When she has to go to bathroom hurts worse 10. OTHER SYMPTOMS: Diarrhea 11. : Denies Protocols used: ABDOMINAL PAIN - [id number] documented in this encounterCrystal Clinic [facility]06-06-2022 Nurse Note* Lucille Farah RN - 03/15/2022 9:[address] Jimenes at bedside. Pt ready for discharge documented in this encounterCrystal Clinic [facility]06-06-2022 History and physical note * Daniela Jimenes MD - 03/15/2022 8:30 AM EDT HISTORY AND PHYSICAL Joan Foley, 42 year old female Current history and physical on file: Yes Is a new History and Physical required for today's visit? No Indication for procedure: Diarrhea and GERD PROCEDURE(S) SCHEDULED FOR: Colonoscopy with or without biopsies and with or without removal of polyps or lesions, dilation (any means), treatment of bleeding (any means), based on clinical findings. and EGD (Esophagogastroduodenoscopy) with or without biopsies, removal of polyps or lesions, dilation ( any means), treatment of bleeding ( any means), Barrx treatment of Brien's Esophagus, image tube placement or cryo therapytreatment based on clinical findings. BASELINE BEHAVIOR: Calm BASELINE ORIENTATION: A & O x3 All medications and allergies reviewed: Yes Skin Assessment: Warm dry mucus membranes pink Airway/Respiratory Assessment: Airway: visualization of the uvula- Yes Mouth: opening greater than 2 fingerbreadths- Yes Neck: full range of motion- Yes Breath sounds clear/equal- Yes Cardiac Assessment: Regular rate and rhythm without murmur Abdominal Assessment: Abdomen soft, non-tender, no masses or organomegaly. Sedation Plan: Moderate Additional Comments: None Daniela Jimenes MD documented in this encounterCrystal Clinic [facility]06-06-2022 Miscellaneous Notes* Telephone Encounter - Gianna Trimble LPN - 03/15/2022 8:28 AM EDT Patient has been identified by name and date of : Yes Patient phones for refill(s): Pending Prescriptions Disp Refills ONDANSETRON 4 MG DISINTEGRATING TABLET 30 tablet 0 Sig: Take 1 tablet by mouth daily at bedtime. CINDI: No Date of last office visit in primary care: 01/25/2022 Last 2 Encounter Wt Readings: Date: Wt: 03/15/2022 82.6 kg (182 lb) 01/12/2022 87.1 kg (192 lb) Previous labs/tests for medication: Not applicable Please advise. Thank you. Gianna Trimble LPN documented in this encounterCrystal Clinic [facility]05-02-2022 Miscellaneous Notes* Telephone Encounter - Jess Estrada LPN - 02/08/2022 12:08 PM EDT Script was originally called to [facility] pharmacy on 01/29/2022. Printed off script and telephone encounter noting same and faxed to [facility] pharmacy as this time. Patient aware of same. * Telephone Encounter - Kalee Granado RN - 02/08/2022 11:39 AM EDT Patient calls to report that [facility] hasn't received the prescription for vancomycin yet. Patient asking if prescription can be re-faxed. Please review and advise, Kalee Granado RN documented in this encounterCrystal Clinic [facility]04-27-2022 Miscellaneous Notes* Letter - Mammography Coordinator - 02/03/2022 9:21 AM EDT February 03, 2022 PID: [id number] Joan Foley [address] [place] [address] Dear Ms. Foley, We are pleased to inform you that the results of your recent breast imaging exam on 02/02/2022 are normal. Early detection of cancer is very important. We also understand recommendations regarding breast cancer screening are controversial. Please discuss with your primary care provider which strategy is best for you and whether a mammogram is right for you. Your imaging studies and report will be kept on file at [facility] as part of your permanent medical record and are available for your continuing care. Thank you for allowing us to help in meeting your health care needs. Sincerely, Dr. Lubin Interpreting Radiologist [facility] (Normal over 40) documented in this encounterCrystal Clinic Orthopedic Center04-26-2022 History of Present illness Narrative* Betty Strickland RT(R) - 02/02/2022 4:00 PM EDT Radiology Service Progress Note PATIENT NAME: Joan Foley DATE OF SERVICE: February 02, 2022 TIME: 3:52 PM PATIENT IDENTITY VERIFICATION COMPLETED USING TWO (2) IDENTIFIERS: Name and Date of confirmedby patient verbally. FALL SCREENING: Has the patient had 2 falls in the last year or 1 fall with injury or currently using an Ambulatory Assistive Device (Walker, Cane, Wheelchair, Crutches, etc.)? No PATIENT GENDER DATA: Female. status: : No status: NO. PATIENT RELEVANT IMPLANT DATA REVIEWED: Not Applicable RADIOLOGY DEPARTMENT: Mammography PERIPHERAL IV DATA: Not applicable SIGNED BY: RT Carrie(R) February 02, 2022 3:52 PM documented in this encounterCrystal Clinic [facility] Center04-12-2022 Miscellaneous Notes* Telephone Encounter - Dayanara Reyes APRN.CNP - 01/19/2022 2:09 PM EDT This has already been addressed with Milind patient has rescheduled her scopes and is okay with C. difficile treatment. Dayanara Reyes APRN.CNP * Telephone Encounter - Milana Cowan LPN - 01/19/2022 1:46 PM EDT Pt called back and was under the impression 1 test colonization 1 for active spores. If the 2nd test comes back then that means colonization only and not an active infection. She has had these symptoms for years., They had to do a lot of re arranging in her schedule and 's scheduled. Both very upset. She wanted to make sure this has to be cancelled and rescheduled. As we were talking she got a call from [place]. Pt hung up with me to take call. I told her I would send this information over to you. Milana Cowan LPN * Telephone Encounter - Jess Estrada LPN - 01/19/2022 1:01 PM EDT Detailed message left for patient as to below. This encounter has been forwarded to Sakshi Richter. * Telephone Encounter - Dayanara Reyes APRN.CNP - 01/19/2022 10:53 AM EDT Yes please have those rescheduled for 6- 8 weeks after treatment Thanks Dayanara Reyes APRN.CNP * Telephone Encounter - Milana Cowan LPN - 01/18/2022 3:51 PM EDT Spoke with pt and information listed below given. Pt verbalizes understanding. Pt is planning on having her colon/EGD on . Milana Cowan LPN * Telephone Encounter - Dayanara Reyes APRN.CNP - 01/18/2022 3:27 PM EDT Called patient and left message for her to call back regarding her results. Stool studies came back positive PCR for C. Difficile, She was negative EIA. When this happens it could mean that she is just colonized because she does have a history of C. difficile in the past or she could have possible acute infection. Since she also has an elevated white blood cell count and she is experiencing greater than 3 loose stools a day. I decided to go ahead and treat Dificid 200 mg twice daily for 10 days. Thanks Dayanara Reeys [facility] Instructions* Patient Instructions* Dayanara Reyes APRN.CNP - 01/12/2022 3:42 PM EDT [facility] [address] [place] [id number] Blood work Stool studies Schedule EGD and Colonoscopy Your procedure will be at [facility] - they will call you to set up date and time - Will need cardiac clearance Follow the provided instructions for colonoscopy. You will be using GoLytely as the laxative duringthe preparation. You may start the laxative as early as 1:00 in the afternoon. The endoscopy staff will call you the day before the procedure with specific on arrival time. (Tuesday for Tuesday procedures). documented in this encounterC[facility] History of Present illness Narrative* Dayanara Reyes APRN.CNP - 01/12/2022 3:00 PM EDT CHIEF COMPLAINT: Patient presents with: Abdominal Pain: lower abdomen. Describes it as cramping. Diarrhea: mixed with constipation. no treatment and just let it run it's course Rectal Problem: blood in stool Heartburn: treats with omeprazole for about 2 years This consult was requested by Kiya Moore APRN.CNP for an opinion regarding abdominal pain, cramping, diarrhea. My final recommendations will be communicated to the requesting health care provider byway of the shared medical record for internal providers or letter via the [employer] for external providers. Joan Foley is a 42 year old female with a past medical history of C diff, NSVT. Who presents for abdominal pain, diarrhea and blood in stool. Last EGD 05/14/2014 Impression: - Normal examined jejunum. Biopsied. - Erythematous duodenopathy. Biopsied. Gastritis. Biopsied. Non-severe reflux esophagitis. Biopsied. Impression: - The examined portion of the ileum was normal. Biopsied. The entire examined colon is normal. Biopsied. The distal rectum and anal verge are normal on retroflexion view. FINAL DIAGNOSIS 1. Jejunum, biopsy (A) - Small bowel mucosa with no diagnostic alteration. No evidence of celiac sprue. 2. Duodenum, biopsy (B) - Duodenal mucosa with reactive epithelial changes. -No evidence of celiac sprue. 3. Antrum, biopsy (C) - Chronic inactive gastritis with prolapse-type changes. - See comment. 4. Esophagogastric junction, biopsy (D) - Reactive squamous mucosa with scattered intraepithelial eosinophils (up to 12 eosinophils in one high power field). -Focal intestinal metaplasia, negative for dysplasia. 5. Terminal ileum, biopsy (E) - Ileal mucosa with no diagnostic alteration. 6. Cecum and sigmoid colon, biopsy (F & G) - Colonic mucosa with no diagnostic alteration. COMMENT 3. H. pylori immunostain performed on the antrum biopsy (C) is negative. HPI: She reports she has been alternating from diarrhea and constipation for the last year. Prior to that patient reports always always having a diarrhea. She reports episodes of flares - she reports on a bad day she will have abdominal pain -cramping and diarrhea - This last flare up she reports having blood in the toilet and a lot of it she ended up going to theED - They were trying to CT ABD and she reports having a reaction to the contrast then her IV went bad. She reports her body was covered in hives from the contrast. She was admitted for pain control however she reports leaving AMA because they were not helping control the pain. Patient reports having multiple BM daily - sometimes up 10 BM a day reports some are loose, soft orwatery. Patient reports little blood at times on the stool. Denies black stool. She reports weight loss of 5 lbs. PAtient reports still having heartburn at times will cause her to cry. She reports she can not tolerate acidic foods - she reports this causes symptoms of pressure, tightness in the chest. She reports taking the omeprazole OTC 20mg and helps but still needs to be careful with what she eats or drinks. She reports having epigastric tenderness and bloating. She reports she will eat a full meal and develops stomach aches. Denies feeling early satiety or dysphagia. Record Review: [facility] / Outside records reviewed. PAST MEDICAL HISTORY Diagnosis Date Abdominal pain Anemia Dyspepsia Endometriosis Fatty liver Hypertension IBS (irritable bowel syndrome) Liver mass Post-cholecystectomy syndrome Renal disorder MASS DISCOVERED 12/2018 RUQ pain 06/10/14 Vitamin D deficiency PAST SURGICAL HISTORY Procedure Laterality Date COLONOSCOPY W/BIOPSY 2013 CYST/MOLE REMOVAL Bilateral Left wrist, right hand EGD DILATION ENDOSCOPY PROC 2013 bxs LAPS SURG CHOLECYSTECTOMY W/CHOLANGIOGRAPHY 04/24/14 Normal IOC LIVER SURGERY HX 10/2018 ABLATION FOR MASS PAST SURGICAL HISTORY OF appendectomy PAST SURGICAL HISTORY OF dental procedures PAST SURGICAL HISTORY OF diagnostic laparoscopy PAST SURGICAL HISTORY OF Carpal tunnel release, right PAST SURGICAL HISTORY OF as a child removed a piece of lead from skull TOTAL ABDOMINAL HYSTERECT W/WO RMVL TUBE OVARY 2004 Hysterectomy, AMANDA Allergies: ALLERGIES Allergen Reactions Penicillins Hives, Anaphylaxis, Shortness of Breath Chantix [Vareniclin* Other: See Comments Mood changes (irritability), flu like symptoms, body aching Contrast Dye [Iodin* Hives, Swelling Demerol [Meperidine* Other: See Comments Nausea Latex Other: See Comments my skin starts pealing off Morphine Hives, Itching Propoxyphene Intolerance Medications: buPROPion XL (WELLBUTRIN XL) 150 mg 24 hr tablet TAKE 1 TABLET BY MOUTH EVERY DAY gabapentin (NEURONTIN) 300 mg capsule Take 1 capsule by mouth daily at bedtime for 90 days. ondansetron orally disintegrating (ZOFRAN ODT) 4 mg disintegrating tablet Take 1 tablet by mouth daily at bedtime. hydrOXYzine HCl (ATARAX) 25 mg tablet Take 1 tablet by mouth every 6 hours as needed for itching/rash. losartan (COZAAR) 50 mg tablet Take 1 tablet by mouth once daily. cholecalciferol, Vitamin D3, (VITAMIN D3) 1,250 mcg (50,000 unit) cap capsule Take 1 capsule by mouth one time a week. furosemide (LASIX) 20 mg tablet TAKE 1 TABLET BY MOUTH EVERY DAY potassium chloride (K-TAB) 10 mEq tablet TAKE 1 TABLET BY MOUTH DAILY WITH BREAKFAST. TAKE WITH LASIX dilTIAZem CD (CARDIZEM CD) 120 mg 24 hr capsule Take 1 capsule by mouth once daily. rizatriptan (MAXALT) 10 mg tablet Take at onset of headache one pill, may repeat in 2 hours, not more than 2 pills a day omeprazole (PRILOSEC) 40 mg capsule Take 1 capsule by mouth once daily. liraglutide (SAXENDA) 3 mg/0.5 mL (18 mg/3 mL) pen injector Inject 0.6 mg subcutaneously once daily. pantoprazole DR (PROTONIX) 40 mg tablet TAKE 1 TABLET BY MOUTH DAILY BEFORE BREAKFAST. TAKE ON EMPTY STOMACH, 1/2 HR BEFORE MEAL. meloxicam (MOBIC) 15 mg tablet Take 1 tablet by mouth once daily. With food. 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 Gastrointestinal: Positive for abdominal distention, abdominal pain, constipation, diarrhea and nausea. All other systems reviewed and are negative. Are you taking any blood thinners? No Physical Examination: BP 126/82 Pulse 96 Ht 5' 4.567 (1.64m) Wt 192 lb (87.1kg) SpO2 98% BMI 32.38 kg/(m^2). Physical Exam Constitutional: Appearance: Normal appearance. She is normal weight. HENT: Head: Normocephalic and atraumatic. Eyes: Extraocular Movements: Extraocular movements intact. Pupils: Pupils are equal, round, and reactive to light. Cardiovascular: Rate and Rhythm: Normal rate and regular rhythm. Pulses: Normal pulses. Heart sounds: Normal heart sounds. Pulmonary: Effort: Pulmonary effort is normal. Breath sounds: Normal breath sounds. Abdominal: General: Abdomen is flat. Bowel sounds are normal. Palpations: Abdomen is soft. Tenderness: There is abdominal tenderness in the right upper quadrant, right lower quadrant and epigastric area. Musculoskeletal: General: Normal range of motion. Cervical back: Normal range of motion and neck supple. Skin: General: Skin is warm and dry. Neurological: General: No focal deficit present. Mental Status: She is alert and oriented to person, place, and time. Psychiatric: Mood and Affect: Mood normal. Behavior: Behavior normal. ASSESSMENT: Gastroesophageal reflux disease, unspecified whether esophagitis present Diarrhea, unspecified type PLAN: Assessment/Plan (K22.70) 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 (primary encounter diagnosis) (K21.9) Gastroesophageal reflux disease, unspecified whether esophagitis present (R19.7) Diarrhea, unspecified type (K92.1) Blood in stool (R14.0) Bloating 1. Gastroesophageal reflux disease, unspecified whether esophagitis present - CONSULT TO GASTROENTEROLOGY - EGD DIAGNOSTIC; Future - H PYLORI IGG AB; Future 2. Diarrhea, unspecified type - Patient having multiple episodes of diarrhea with blood in toilet and on stool at times with abdominal pain. Discussed possible related to hemorrhoids. Recommended r/o infectious origin, recommend colonoscopy r/o microscopic colitis, IBD, IBS, hemorrhoids - CONSULT TO GASTROENTEROLOGY - peg 3350-Electrolytes (GOLYTELY) 236-22.74-6.74 -5.86 gram suspension; Refer to printed prep instructions from your provider. Dispense: 4000 mL; Refill: 0 - C-REACTIVE PROTEIN (CRP); Future - COLONOSCOPY DIAGNOSTIC; Future - CALPROTECTIN,FECAL; Future - FECAL OCCULT BLOOD TEST; Future - ENTERIC BACTERIAL PANEL BY PCR - CRYPTOSPORIDIUM AND GIARDIA ANTIGENS BY EIA - C. DIFFICILE PCR; Future - FECAL OCCULT BLOOD TEST 3. 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 - Patient taking OTC Omeprazole 20mg and having break through symptoms of heartburn and epigastric pain. Last EGD - esophageal biopsy intestinal metaplasia - recommend EGD with biopsy - EGD DIAGNOSTIC; Future 4. Blood in stool - COLONOSCOPY DIAGNOSTIC; Future - FECAL OCCULT BLOOD TEST; Future - ENTERIC BACTERIAL PANEL BY PCR - CRYPTOSPORIDIUM AND GIARDIA ANTIGENS BY EIA - C. DIFFICILE PCR; Future - FECAL OCCULT BLOOD TEST 5. Bloating - H PYLORI IGG AB; Future Follow up in office 3 months/PRN. Recommended to please call office/go to ER if fever, chills, chest pain, SOB, diarrhea, nausea, emesis, worsening abdominal pain, dehydration occurs I spent 30 minutes in the visit, with more than 50% of the total [id number] time of the visit in counseling / coordination of care. I have confirmed and edited as necessary, the PFSH and ROS obtained by others. Dayanara Reyes APRN.CNP DATE: 01/12/22 TIME: 1:13 PM documented in this encounterC[facility]03-21-2022 Miscellaneous Notes* Telephone Encounter - Gianna Trimble LPN - 12/28/2021 11:18 AM EDT Patient has been identified by name and date of : Yes Patient phones for refill(s): Pending Prescriptions Disp Refills GABAPENTIN 300 MG CAPSULE 30 capsule 2 Sig: Take 1 capsule by mouth daily at bedtime for 90 days. CINDI: No ONDANSETRON 4 MG DISINTEGRATING TABLET 30 tablet 0 Sig: Take 1 tablet by mouth daily at bedtime. CINDI: No Date of last office visit in primary care: 12/07/21 Last 2 Encounter Wt Readings: Date: Wt: 09/11/2021 86.6 kg (191 lb) 09/11/2021 88.2 kg (194 lb 6.4 oz) Previous labs/tests for medication: Not applicable Please advise. Thank you. Gianna Trimble LPN documented in this encounterC[facility]03-03-2022 Miscellaneous Notes* Telephone Encounter - Zoya Cowan LPN - 12/10/2021 3:49 PM EST Phone call placed, detailed message left VV scheduled January 25, 2022 at 2:00, [employer] [place] message sent in addition. Zoya Cowan LPN documented in this encounterC[facility]11-03-2021 History of Present illness Narrative* Loi Farfan RT(R) - 08/12/2021 3:30 PM EDT Radiology Service Progress Note PATIENT NAME: Joan Foley DATE OF SERVICE: August 12, 2021 TIME: 3:31 PM PATIENT IDENTITY VERIFICATION COMPLETED USING TWO (2) IDENTIFIERS: Name and Date of confirmedby patient verbally. FALL SCREENING: Has the patient had 2 falls in the last year or 1 fall with injury or currently using an Ambulatory Assistive Device (Walker, Cane, Wheelchair, Crutches, etc.)? No PATIENT GENDER DATA: Female. status: : No status: NO. PATIENT RELEVANT IMPLANT DATA REVIEWED: Not Applicable RADIOLOGY DEPARTMENT: General X-ray: Exam(s) Completed: Spine X-Ray(s): Lumbar AP / LAT / L5-S1 PERIPHERAL IV DATA: Not applicable SIGNED BY: RT Chaim(R) August 12, 2021 3:31 PM documented in this encounterCrystal [facility]08-21-2014 History of Past illness Narrative* Problem Noted Date Resolved Date Thrush 05/30/2014 09/28/2016 Last Assessment & Plan: Patient noticed a whitish coat on her tongue the last 2 weeks, she came in today Because it is progressively getting worse and she thinks it is peeling off today. He is taking a probiotic , and thinks that since that time she has Noticed this. Fever 05/22/2014 09/28/2016 Last Assessment & Plan: She has been having fever on and off for the past week, it she has cheked it at home 99 to 101. Abdominal pain, right upper quadrant 04/24/2014 09/28/2016 Overview: She has been having abdominal pain 4 weeks, RUQ, hida scan showed 40 % activity GB was taken out, found to have inflammation Of the GB And calcification. She cannot tell if it was better. She got the CDiff after the clindamycin. She wasn't feeling right at all for the last 4 weeks. Following the surgery she had cdiff diarrhea and took flagyl which helped The diarrhea resolved, and the contrast she took for the CT scan made her get the diarrhea again and she Never has had a normal BOWEL movement since then 4 weeks a go. Last Assessment & Plan: She has been having abdominal pain 4 weeks, RUQ, hida scan showed 40 % activity GB was taken out, found to have inflammation Of the GB And calcification. She cannot tell if it was better. She got the CDiff after the clindamycin. She wasn't feeling right at all for the last 4 weeks. Following the surgery she had cdiff diarrhea and took flagyl which helped The diarrhea resolved, and the contrast she took for the CT scan made her get the diarrhea again and she Never has had a normal BOWEL movement since then 4 weeks a go. She is off work for the last 4 week. Today she has pain in the right side and the belly button. 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 Pain in joint, pelvic region and thigh 8 09/28/2016 documented as of this encounter (statuses as of 12/28/2021) [facility] History of Past illness Narrative* Problem Noted Date Resolved Date Thrush 05/30/2014 09/28/2016 Last Assessment & Plan: Patient noticed a whitish coat on her tongue the last 2 weeks, she came in today Because it is progressively getting worse and she thinks it is peeling off today. He is taking a probiotic , and thinks that since that time she has Noticed this. Fever 05/22/2014 09/28/2016 Last Assessment & Plan: She has been having fever on and off for the past week, it she has cheked it at home 99 to 101. Abdominal pain, right upper quadrant 04/24/2014 09/28/2016 Overview: She has been having abdominal pain 4 weeks, RUQ, hida scan showed 40 % activity GB was taken out, found to have inflammation Of the GB And calcification. She cannot tell if it was better. She got the CDiff after the clindamycin. She wasn't feeling right at all for the last 4 weeks. Following the surgery she had cdiff diarrhea and took flagyl which helped The diarrhea resolved, and the contrast she took for the CT scan made her get the diarrhea again and she Never has had a normal BOWEL movement since then 4 weeks a go. Last Assessment & Plan: She has been having abdominal pain 4 weeks, RUQ, hida scan showed 40 % activity GB was taken out, found to have inflammation Of the GB And calcification. She cannot tell if it was better. She got the CDiff after the clindamycin. She wasn't feeling right at all for the last 4 weeks. Following the surgery she had cdiff diarrhea and took flagyl which helped The diarrhea resolved, and the contrast she took for the CT scan made her get the diarrhea again and she Never has had a normal BOWEL movement since then 4 weeks a go. She is off work for the last 4 week. Today she has pain in the right side and the belly button. 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 Pain in joint, pelvic region and thigh 8 09/28/2016 documented as of this encounter (statuses as of 01/18/2022) [facility] of Past illness Narrative* Problem Noted Date Resolved Date Thrush 05/30/2014 09/28/2016 Last Assessment & Plan: Patient noticed a whitish coat on her tongue the last 2 weeks, she came in today Because it is progressively getting worse and she thinks it is peeling off today. He is taking a probiotic , and thinks that since that time she has Noticed this. Fever 05/22/2014 09/28/2016 Last Assessment & Plan: She has been having fever on and off for the past week, it she has cheked it at home 99 to 101. Abdominal pain, right upper quadrant 04/24/2014 09/28/2016 Overview: She has been having abdominal pain 4 weeks, RUQ, hida scan showed 40 % activity GB was taken out, found to have inflammation Of the GB And calcification. She cannot tell if it was better. She got the CDiff after the clindamycin. She wasn't feeling right at all for the last 4 weeks. Following the surgery she had cdiff diarrhea and took flagyl which helped The diarrhea resolved, and the contrast she took for the CT scan made her get the diarrhea again and she Never has had a normal BOWEL movement since then 4 weeks a go. Last Assessment & Plan: She has been having abdominal pain 4 weeks, RUQ, hida scan showed 40 % activity GB was taken out, found to have inflammation Of the GB And calcification. She cannot tell if it was better. She got the CDiff after the clindamycin. She wasn't feeling right at all for the last 4 weeks. Following the surgery she had cdiff diarrhea and took flagyl which helped The diarrhea resolved, and the contrast she took for the CT scan made her get the diarrhea again and she Never has had a normal BOWEL movement since then 4 weeks a go. She is off work for the last 4 week. Today she has pain in the right side and the belly button. 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 Pain in joint, pelvic region and thigh 8 09/28/2016 documented as of this encounter (statuses as of 01/19/2022) [facility] of Past illness Narrative* Problem Noted Date Resolved Date Thrush 05/30/2014 09/28/2016 Last Assessment & Plan: Patient noticed a whitish coat on her tongue the last 2 weeks, she came in today Because it is progressively getting worse and she thinks it is peeling off today. He is taking a probiotic , and thinks that since that time she has Noticed this. Fever 05/22/2014 09/28/2016 Last Assessment & Plan: She has been having fever on and off for the past week, it she has cheked it at home 99 to 101. Abdominal pain, right upper quadrant 04/24/2014 09/28/2016 Overview: She has been having abdominal pain 4 weeks, RUQ, hida scan showed 40 % activity GB was taken out, found to have inflammation Of the GB And calcification. She cannot tell if it was better. She got the CDiff after the clindamycin. She wasn't feeling right at all for the last 4 weeks. Following the surgery she had cdiff diarrhea and took flagyl which helped The diarrhea resolved, and the contrast she took for the CT scan made her get the diarrhea again and she Never has had a normal BOWEL movement since then 4 weeks a go. Last Assessment & Plan: She has been having abdominal pain 4 weeks, RUQ, hida scan showed 40 % activity GB was taken out, found to have inflammation Of the GB And calcification. She cannot tell if it was better. She got the CDiff after the clindamycin. She wasn't feeling right at all for the last 4 weeks. Following the surgery she had cdiff diarrhea and took flagyl which helped The diarrhea resolved, and the contrast she took for the CT scan made her get the diarrhea again and she Never has had a normal BOWEL movement since then 4 weeks a go. She is off work for the last 4 week. Today she has pain in the right side and the belly button. 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 Pain in joint, pelvic region and thigh 8 09/28/2016 documented as of this encounter (statuses as of 02/03/2022) [facility] of Past illness Narrative* Problem Noted Date Resolved Date Thrush 05/30/2014 09/28/2016 Last Assessment & Plan: Patient noticed a whitish coat on her tongue the last 2 weeks, she came in today Because it is progressively getting worse and she thinks it is peeling off today. He is taking a probiotic , and thinks that since that time she has Noticed this. Fever 05/22/2014 09/28/2016 Last Assessment & Plan: She has been having fever on and off for the past week, it she has cheked it at home 99 to 101. Abdominal pain, right upper quadrant 04/24/2014 09/28/2016 Overview: She has been having abdominal pain 4 weeks, RUQ, hida scan showed 40 % activity GB was taken out, found to have inflammation Of the GB And calcification. She cannot tell if it was better. She got the CDiff after the clindamycin. She wasn't feeling right at all for the last 4 weeks. Following the surgery she had cdiff diarrhea and took flagyl which helped The diarrhea resolved, and the contrast she took for the CT scan made her get the diarrhea again and she Never has had a normal BOWEL movement since then 4 weeks a go. Last Assessment & Plan: She has been having abdominal pain 4 weeks, RUQ, hida scan showed 40 % activity GB was taken out, found to have inflammation Of the GB And calcification. She cannot tell if it was better. She got the CDiff after the clindamycin. She wasn't feeling right at all for the last 4 weeks. Following the surgery she had cdiff diarrhea and took flagyl which helped The diarrhea resolved, and the contrast she took for the CT scan made her get the diarrhea again and she Never has had a normal BOWEL movement since then 4 weeks a go. She is off work for the last 4 week. Today she has pain in the right side and the belly button. 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 Pain in joint, pelvic region and thigh 8 09/28/2016 documented as of this encounter (statuses as of 02/05/2022) [facility] of Past illness Narrative* Problem Noted Date Resolved Date Thrush 05/30/2014 09/28/2016 Last Assessment & Plan: Patient noticed a whitish coat on her tongue the last 2 weeks, she came in today Because it is progressively getting worse and she thinks it is peeling off today. He is taking a probiotic , and thinks that since that time she has Noticed this. Fever 05/22/2014 09/28/2016 Last Assessment & Plan: She has been having fever on and off for the past week, it she has cheked it at home 99 to 101. Abdominal pain, right upper quadrant 04/24/2014 09/28/2016 Overview: She has been having abdominal pain 4 weeks, RUQ, hida scan showed 40 % activity GB was taken out, found to have inflammation Of the GB And calcification. She cannot tell if it was better. She got the CDiff after the clindamycin. She wasn't feeling right at all for the last 4 weeks. Following the surgery she had cdiff diarrhea and took flagyl which helped The diarrhea resolved, and the contrast she took for the CT scan made her get the diarrhea again and she Never has had a normal BOWEL movement since then 4 weeks a go. Last Assessment & Plan: She has been having abdominal pain 4 weeks, RUQ, hida scan showed 40 % activity GB was taken out, found to have inflammation Of the GB And calcification. She cannot tell if it was better. She got the CDiff after the clindamycin. She wasn't feeling right at all for the last 4 weeks. Following the surgery she had cdiff diarrhea and took flagyl which helped The diarrhea resolved, and the contrast she took for the CT scan made her get the diarrhea again and she Never has had a normal BOWEL movement since then 4 weeks a go. She is off work for the last 4 week. Today she has pain in the right side and the belly button. 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 Pain in joint, pelvic region and thigh 8 09/28/2016 documented as of this encounter (statuses as of 02/08/2022) [facility]08-21-2014 History of Past illness Narrative* Problem Noted Date Resolved Date Thrush 05/30/2014 09/28/2016 Last Assessment & Plan: Patient noticed a whitish coat on her tongue the last 2 weeks, she came in today Because it is progressively getting worse and she thinks it is peeling off today. He is taking a probiotic , and thinks that since that time she has Noticed this. Fever 05/22/2014 09/28/2016 Last Assessment & Plan: She has been having fever on and off for the past week, it she has cheked it at home 99 to 101. Abdominal pain, right upper quadrant 04/24/2014 09/28/2016 Overview: She has been having abdominal pain 4 weeks, RUQ, hida scan showed 40 % activity GB was taken out, found to have inflammation Of the GB And calcification. She cannot tell if it was better. She got the CDiff after the clindamycin. She wasn't feeling right at all for the last 4 weeks. Following the surgery she had cdiff diarrhea and took flagyl which helped The diarrhea resolved, and the contrast she took for the CT scan made her get the diarrhea again and she Never has had a normal BOWEL movement since then 4 weeks a go. Last Assessment & Plan: She has been having abdominal pain 4 weeks, RUQ, hida scan showed 40 % activity GB was taken out, found to have inflammation Of the GB And calcification. She cannot tell if it was better. She got the CDiff after the clindamycin. She wasn't feeling right at all for the last 4 weeks. Following the surgery she had cdiff diarrhea and took flagyl which helped The diarrhea resolved, and the contrast she took for the CT scan made her get the diarrhea again and she Never has had a normal BOWEL movement since then 4 weeks a go. She is off work for the last 4 week. Today she has pain in the right side and the belly button. 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 Pain in joint, pelvic region and thigh 8 09/28/2016 documented as of this encounter (statuses as of 03/11/2022) [facility]08-21-2014 History of Past illness Narrative* Problem Noted Date Resolved Date Thrush 05/30/2014 09/28/2016 Last Assessment & Plan: Patient noticed a whitish coat on her tongue the last 2 weeks, she came in today Because it is progressively getting worse and she thinks it is peeling off today. He is taking a probiotic , and thinks that since that time she has Noticed this. Fever 05/22/2014 09/28/2016 Last Assessment & Plan: She has been having fever on and off for the past week, it she has cheked it at home 99 to 101. Abdominal pain, right upper quadrant 04/24/2014 09/28/2016 Overview: She has been having abdominal pain 4 weeks, RUQ, hida scan showed 40 % activity GB was taken out, found to have inflammation Of the GB And calcification. She cannot tell if it was better. She got the CDiff after the clindamycin. She wasn't feeling right at all for the last 4 weeks. Following the surgery she had cdiff diarrhea and took flagyl which helped The diarrhea resolved, and the contrast she took for the CT scan made her get the diarrhea again and she Never has had a normal BOWEL movement since then 4 weeks a go. Last Assessment & Plan: She has been having abdominal pain 4 weeks, RUQ, hida scan showed 40 % activity GB was taken out, found to have inflammation Of the GB And calcification. She cannot tell if it was better. She got the CDiff after the clindamycin. She wasn't feeling right at all for the last 4 weeks. Following the surgery she had cdiff diarrhea and took flagyl which helped The diarrhea resolved, and the contrast she took for the CT scan made her get the diarrhea again and she Never has had a normal BOWEL movement since then 4 weeks a go. She is off work for the last 4 week. Today she has pain in the right side and the belly button. 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 Pain in joint, pelvic region and thigh 8 09/28/2016 documented as of this encounter (statuses as of 03/15/2022) [facility]08-21[facility]2014 History of Past illness Narrative* Problem Noted Date Resolved Date Thrush 05/30/2014 09/28/2016 Last Assessment & Plan: Patient noticed a whitish coat on her tongue the last 2 weeks, she came in today Because it is progressively getting worse and she thinks it is peeling off today. He is taking a probiotic , and thinks that since that time she has Noticed this. Fever 05/22/2014 09/28/2016 Last Assessment & Plan: She has been having fever on and off for the past week, it she has cheked it at home 99 to 101. Abdominal pain, right upper quadrant 04/24/2014 09/28/2016 Overview: She has been having abdominal pain 4 weeks, RUQ, hida scan showed 40 % activity GB was taken out, found to have inflammation Of the GB And calcification. She cannot tell if it was better. She got the CDiff after the clindamycin. She wasn't feeling right at all for the last 4 weeks. Following the surgery she had cdiff diarrhea and took flagyl which helped The diarrhea resolved, and the contrast she took for the CT scan made her get the diarrhea again and she Never has had a normal BOWEL movement since then 4 weeks a go. Last Assessment & Plan: She has been having abdominal pain 4 weeks, RUQ, hida scan showed 40 % activity GB was taken out, found to have inflammation Of the GB And calcification. She cannot tell if it was better. She got the CDiff after the clindamycin. She wasn't feeling right at all for the last 4 weeks. Following the surgery she had cdiff diarrhea and took flagyl which helped The diarrhea resolved, and the contrast she took for the CT scan made her get the diarrhea again and she Never has had a normal BOWEL movement since then 4 weeks a go. She is off work for the last 4 week. Today she has pain in the right side and the belly button. 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 Pain in joint, pelvic region and thigh 8 09/28/2016 documented as of this encounter (statuses as of 03/16/2022) [facility]08[facility]2014 History of Past illness Narrative* Problem Noted Date Resolved Date Thrush 05/30/2014 09/28/2016 Last Assessment & Plan: Patient noticed a whitish coat on her tongue the last 2 weeks, she came in today Because it is progressively getting worse and she thinks it is peeling off today. He is taking a probiotic , and thinks that since that time she has Noticed this. Fever 05/22/2014 09/28/2016 Last Assessment & Plan: She has been having fever on and off for the past week, it she has cheked it at home 99 to 101. Abdominal pain, right upper quadrant 04/24/2014 09/28/2016 Overview: She has been having abdominal pain 4 weeks, RUQ, hida scan showed 40 % activity GB was taken out, found to have inflammation Of the GB And calcification. She cannot tell if it was better. She got the CDiff after the clindamycin. She wasn't feeling right at all for the last 4 weeks. Following the surgery she had cdiff diarrhea and took flagyl which helped The diarrhea resolved, and the contrast she took for the CT scan made her get the diarrhea again and she Never has had a normal BOWEL movement since then 4 weeks a go. Last Assessment & Plan: She has been having abdominal pain 4 weeks, RUQ, hida scan showed 40 % activity GB was taken out, found to have inflammation Of the GB And calcification. She cannot tell if it was better. She got the CDiff after the clindamycin. She wasn't feeling right at all for the last 4 weeks. Following the surgery she had cdiff diarrhea and took flagyl which helped The diarrhea resolved, and the contrast she took for the CT scan made her get the diarrhea again and she Never has had a normal BOWEL movement since then 4 weeks a go. She is off work for the last 4 week. Today she has pain in the right side and the belly button. 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 Pain in joint, pelvic region and thigh 8 09/28/2016 documented as of this encounter (statuses as of 03/18/2022) [facility]08[facility]2014 History of Past illness Narrative* Problem Noted Date Resolved Date Thrush 05/30/2014 09/28/2016 Last Assessment & Plan: Patient noticed a whitish coat on her tongue the last 2 weeks, she came in today Because it is progressively getting worse and she thinks it is peeling off today. He is taking a probiotic , and thinks that since that time she has Noticed this. Fever 05/22/2014 09/28/2016 Last Assessment & Plan: She has been having fever on and off for the past week, it she has cheked it at home 99 to 101. Abdominal pain, right upper quadrant 04/24/2014 09/28/2016 Overview: She has been having abdominal pain 4 weeks, RUQ, hida scan showed 40 % activity GB was taken out, found to have inflammation Of the GB And calcification. She cannot tell if it was better. She got the CDiff after the clindamycin. She wasn't feeling right at all for the last 4 weeks. Following the surgery she had cdiff diarrhea and took flagyl which helped The diarrhea resolved, and the contrast she took for the CT scan made her get the diarrhea again and she Never has had a normal BOWEL movement since then 4 weeks a go. Last Assessment & Plan: She has been having abdominal pain 4 weeks, RUQ, hida scan showed 40 % activity GB was taken out, found to have inflammation Of the GB And calcification. She cannot tell if it was better. She got the CDiff after the clindamycin. She wasn't feeling right at all for the last 4 weeks. Following the surgery she had cdiff diarrhea and took flagyl which helped The diarrhea resolved, and the contrast she took for the CT scan made her get the diarrhea again and she Never has had a normal BOWEL movement since then 4 weeks a go. She is off work for the last 4 week. Today she has pain in the right side and the belly button. 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 Pain in joint, pelvic region and thigh 8 09/28/2016 documented as of this encounter (statuses as of 03/31/2022) [facility]08[facility] History of Past illness Narrative* Problem Noted Date Resolved Date Thrush 05/30/2014 09/28/2016 Last Assessment & Plan: Patient noticed a whitish coat on her tongue the last 2 weeks, she came in today Because it is progressively getting worse and she thinks it is peeling off today. He is taking a probiotic , and thinks that since that time she has Noticed this. Fever 05/22/2014 09/28/2016 Last Assessment & Plan: She has been having fever on and off for the past week, it she has cheked it at home 99 to 101. Abdominal pain, right upper quadrant 04/24/2014 09/28/2016 Overview: She has been having abdominal pain 4 weeks, RUQ, hida scan showed 40 % activity GB was taken out, found to have inflammation Of the GB And calcification. She cannot tell if it was better. She got the CDiff after the clindamycin. She wasn't feeling right at all for the last 4 weeks. Following the surgery she had cdiff diarrhea and took flagyl which helped The diarrhea resolved, and the contrast she took for the CT scan made her get the diarrhea again and she Never has had a normal BOWEL movement since then 4 weeks a go. Last Assessment & Plan: She has been having abdominal pain 4 weeks, RUQ, hida scan showed 40 % activity GB was taken out, found to have inflammation Of the GB And calcification. She cannot tell if it was better. She got the CDiff after the clindamycin. She wasn't feeling right at all for the last 4 weeks. Following the surgery she had cdiff diarrhea and took flagyl which helped The diarrhea resolved, and the contrast she took for the CT scan made her get the diarrhea again and she Never has had a normal BOWEL movement since then 4 weeks a go. She is off work for the last 4 week. Today she has pain in the right side and the belly button. 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 Pain in joint, pelvic region and thigh 8 09/28/2016 documented as of this encounter (statuses as of 04/02/2022) [facility]08[facility]2014 History of Past illness Narrative* Problem Noted Date Resolved Date Thrush 05/30/2014 09/28/2016 Last Assessment & Plan: Patient noticed a whitish coat on her tongue the last 2 weeks, she came in today Because it is progressively getting worse and she thinks it is peeling off today. He is taking a probiotic , and thinks that since that time she has Noticed this. Fever 05/22/2014 09/28/2016 Last Assessment & Plan: She has been having fever on and off for the past week, it she has cheked it at home 99 to 101. Abdominal pain, right upper quadrant 04/24/2014 09/28/2016 Overview: She has been having abdominal pain 4 weeks, RUQ, hida scan showed 40 % activity GB was taken out, found to have inflammation Of the GB And calcification. She cannot tell if it was better. She got the CDiff after the clindamycin. She wasn't feeling right at all for the last 4 weeks. Following the surgery she had cdiff diarrhea and took flagyl which helped The diarrhea resolved, and the contrast she took for the CT scan made her get the diarrhea again and she Never has had a normal BOWEL movement since then 4 weeks a go. Last Assessment & Plan: She has been having abdominal pain 4 weeks, RUQ, hida scan showed 40 % activity GB was taken out, found to have inflammation Of the GB And calcification. She cannot tell if it was better. She got the CDiff after the clindamycin. She wasn't feeling right at all for the last 4 weeks. Following the surgery she had cdiff diarrhea and took flagyl which helped The diarrhea resolved, and the contrast she took for the CT scan made her get the diarrhea again and she Never has had a normal BOWEL movement since then 4 weeks a go. She is off work for the last 4 week. Today she has pain in the right side and the belly button. 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 Pain in joint, pelvic region and thigh 8 09/28/2016 documented as of this encounter (statuses as of 04/08/2022) [facility]08[facility]2014 History of Past illness Narrative* Problem Noted Date Resolved Date Thrush 05/30/2014 09/28/2016 Last Assessment & Plan: Patient noticed a whitish coat on her tongue the last 2 weeks, she came in today Because it is progressively getting worse and she thinks it is peeling off today. He is taking a probiotic , and thinks that since that time she has Noticed this. Fever 05/22/2014 09/28/2016 Last Assessment & Plan: She has been having fever on and off for the past week, it she has cheked it at home 99 to 101. Abdominal pain, right upper quadrant 04/24/2014 09/28/2016 Overview: She has been having abdominal pain 4 weeks, RUQ, hida scan showed 40 % activity GB was taken out, found to have inflammation Of the GB And calcification. She cannot tell if it was better. She got the CDiff after the clindamycin. She wasn't feeling right at all for the last 4 weeks. Following the surgery she had cdiff diarrhea and took flagyl which helped The diarrhea resolved, and the contrast she took for the CT scan made her get the diarrhea again and she Never has had a normal BOWEL movement since then 4 weeks a go. Last Assessment & Plan: She has been having abdominal pain 4 weeks, RUQ, hida scan showed 40 % activity GB was taken out, found to have inflammation Of the GB And calcification. She cannot tell if it was better. She got the CDiff after the clindamycin. She wasn't feeling right at all for the last 4 weeks. Following the surgery she had cdiff diarrhea and took flagyl which helped The diarrhea resolved, and the contrast she took for the CT scan made her get the diarrhea again and she Never has had a normal BOWEL movement since then 4 weeks a go. She is off work for the last 4 week. Today she has pain in the right side and the belly button. 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 Pain in joint, pelvic region and thigh 8 09/28/2016 documented as of this encounter (statuses as of 04/23/2022) [facility]08[facility]2014 History of Past illness Narrative* Problem Noted Date Resolved Date Thrush 05/30/2014 09/28/2016 Last Assessment & Plan: Patient noticed a whitish coat on her tongue the last 2 weeks, she came in today Because it is progressively getting worse and she thinks it is peeling off today. He is taking a probiotic , and thinks that since that time she has Noticed this. Fever 05/22/2014 09/28/2016 Last Assessment & Plan: She has been having fever on and off for the past week, it she has cheked it at home 99 to 101. Abdominal pain, right upper quadrant 04/24/2014 09/28/2016 Overview: She has been having abdominal pain 4 weeks, RUQ, hida scan showed 40 % activity GB was taken out, found to have inflammation Of the GB And calcification. She cannot tell if it was better. She got the CDiff after the clindamycin. She wasn't feeling right at all for the last 4 weeks. Following the surgery she had cdiff diarrhea and took flagyl which helped The diarrhea resolved, and the contrast she took for the CT scan made her get the diarrhea again and she Never has had a normal BOWEL movement since then 4 weeks a go. Last Assessment & Plan: She has been having abdominal pain 4 weeks, RUQ, hida scan showed 40 % activity GB was taken out, found to have inflammation Of the GB And calcification. She cannot tell if it was better. She got the CDiff after the clindamycin. She wasn't feeling right at all for the last 4 weeks. Following the surgery she had cdiff diarrhea and took flagyl which helped The diarrhea resolved, and the contrast she took for the CT scan made her get the diarrhea again and she Never has had a normal BOWEL movement since then 4 weeks a go. She is off work for the last 4 week. Today she has pain in the right side and the belly button. 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 Pain in joint, pelvic region and thigh 8 09/28/2016 documented as of this encounter (statuses as of 04/26/2022) [facility]08[facility] History of Past illness Narrative* Problem Noted Date Resolved Date Thrush 05/30/2014 09/28/2016 Last Assessment & Plan: Patient noticed a whitish coat on her tongue the last 2 weeks, she came in today Because it is progressively getting worse and she thinks it is peeling off today. He is taking a probiotic , and thinks that since that time she has Noticed this. Fever 05/22/2014 09/28/2016 Last Assessment & Plan: She has been having fever on and off for the past week, it she has cheked it at home 99 to 101. Abdominal pain, right upper quadrant 04/24/2014 09/28/2016 Overview: She has been having abdominal pain 4 weeks, RUQ, hida scan showed 40 % activity GB was taken out, found to have inflammation Of the GB And calcification. She cannot tell if it was better. She got the CDiff after the clindamycin. She wasn't feeling right at all for the last 4 weeks. Following the surgery she had cdiff diarrhea and took flagyl which helped The diarrhea resolved, and the contrast she took for the CT scan made her get the diarrhea again and she Never has had a normal BOWEL movement since then 4 weeks a go. Last Assessment & Plan: She has been having abdominal pain 4 weeks, RUQ, hida scan showed 40 % activity GB was taken out, found to have inflammation Of the GB And calcification. She cannot tell if it was better. She got the CDiff after the clindamycin. She wasn't feeling right at all for the last 4 weeks. Following the surgery she had cdiff diarrhea and took flagyl which helped The diarrhea resolved, and the contrast she took for the CT scan made her get the diarrhea again and she Never has had a normal BOWEL movement since then 4 weeks a go. She is off work for the last 4 week. Today she has pain in the right side and the belly button. 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 Pain in joint, pelvic region and thigh 8 09/28/2016 documented as of this encounter (statuses as of 04/26/2022) [facility] History of Past illness Narrative* Problem Noted Date Resolved Date Thrush 05/30/2014 09/28/2016 Last Assessment & Plan: Patient noticed a whitish coat on her tongue the last 2 weeks, she came in today Because it is progressively getting worse and she thinks it is peeling off today. He is taking a probiotic , and thinks that since that time she has Noticed this. Fever 05/22/2014 09/28/2016 Last Assessment & Plan: She has been having fever on and off for the past week, it she has cheked it at home 99 to 101. Abdominal pain, right upper quadrant 04/24/2014 09/28/2016 Overview: She has been having abdominal pain 4 weeks, RUQ, hida scan showed 40 % activity GB was taken out, found to have inflammation Of the GB And calcification. She cannot tell if it was better. She got the CDiff after the clindamycin. She wasn't feeling right at all for the last 4 weeks. Following the surgery she had cdiff diarrhea and took flagyl which helped The diarrhea resolved, and the contrast she took for the CT scan made her get the diarrhea again and she Never has had a normal BOWEL movement since then 4 weeks a go. Last Assessment & Plan: She has been having abdominal pain 4 weeks, RUQ, hida scan showed 40 % activity GB was taken out, found to have inflammation Of the GB And calcification. She cannot tell if it was better. She got the CDiff after the clindamycin. She wasn't feeling right at all for the last 4 weeks. Following the surgery she had cdiff diarrhea and took flagyl which helped The diarrhea resolved, and the contrast she took for the CT scan made her get the diarrhea again and she Never has had a normal BOWEL movement since then 4 weeks a go. She is off work for the last 4 week. Today she has pain in the right side and the belly button. 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 Pain in joint, pelvic region and thigh 8 09/28/2016 documented as of this encounter (statuses as of 05/10/2022) [facility] History of Past illness Narrative* Problem Noted Date Resolved Date Thrush 05/30/2014 09/28/2016 Last Assessment & Plan: Patient noticed a whitish coat on her tongue the last 2 weeks, she came in today Because it is progressively getting worse and she thinks it is peeling off today. He is taking a probiotic , and thinks that since that time she has Noticed this. Fever 05/22/2014 09/28/2016 Last Assessment & Plan: She has been having fever on and off for the past week, it she has cheked it at home 99 to 101. Abdominal pain, right upper quadrant 04/24/2014 09/28/2016 Overview: She has been having abdominal pain 4 weeks, RUQ, hida scan showed 40 % activity GB was taken out, found to have inflammation Of the GB And calcification. She cannot tell if it was better. She got the CDiff after the clindamycin. She wasn't feeling right at all for the last 4 weeks. Following the surgery she had cdiff diarrhea and took flagyl which helped The diarrhea resolved, and the contrast she took for the CT scan made her get the diarrhea again and she Never has had a normal BOWEL movement since then 4 weeks a go. Last Assessment & Plan: She has been having abdominal pain 4 weeks, RUQ, hida scan showed 40 % activity GB was taken out, found to have inflammation Of the GB And calcification. She cannot tell if it was better. She got the CDiff after the clindamycin. She wasn't feeling right at all for the last 4 weeks. Following the surgery she had cdiff diarrhea and took flagyl which helped The diarrhea resolved, and the contrast she took for the CT scan made her get the diarrhea again and she Never has had a normal BOWEL movement since then 4 weeks a go. She is off work for the last 4 week. Today she has pain in the right side and the belly button. 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 Pain in joint, pelvic region and thigh 8 09/28/2016 documented as of this encounter (statuses as of 05/10/2022) [facility]08-21-2014 History of Past illness Narrative* Problem Noted Date Resolved Date Thrush 05/30/2014 09/28/2016 Last Assessment & Plan: Patient noticed a whitish coat on her tongue the last 2 weeks, she came in today Because it is progressively getting worse and she thinks it is peeling off today. He is taking a probiotic , and thinks that since that time she has Noticed this. Fever 05/22/2014 09/28/2016 Last Assessment & Plan: She has been having fever on and off for the past week, it she has cheked it at home 99 to 101. Abdominal pain, right upper quadrant 04/24/2014 09/28/2016 Overview: She has been having abdominal pain 4 weeks, RUQ, hida scan showed 40 % activity GB was taken out, found to have inflammation Of the GB And calcification. She cannot tell if it was better. She got the CDiff after the clindamycin. She wasn't feeling right at all for the last 4 weeks. Following the surgery she had cdiff diarrhea and took flagyl which helped The diarrhea resolved, and the contrast she took for the CT scan made her get the diarrhea again and she Never has had a normal BOWEL movement since then 4 weeks a go. Last Assessment & Plan: She has been having abdominal pain 4 weeks, RUQ, hida scan showed 40 % activity GB was taken out, found to have inflammation Of the GB And calcification. She cannot tell if it was better. She got the CDiff after the clindamycin. She wasn't feeling right at all for the last 4 weeks. Following the surgery she had cdiff diarrhea and took flagyl which helped The diarrhea resolved, and the contrast she took for the CT scan made her get the diarrhea again and she Never has had a normal BOWEL movement since then 4 weeks a go. She is off work for the last 4 week. Today she has pain in the right side and the belly button. 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 Pain in joint, pelvic region and thigh 8 09/28/2016 documented as of this encounter (statuses as of 06/29/2022) [facility]08-21-2014 History of Past illness Narrative* Problem Noted Date Resolved Date Thrush 05/30/2014 09/28/2016 Last Assessment & Plan: Patient noticed a whitish coat on her tongue the last 2 weeks, she came in today Because it is progressively getting worse and she thinks it is peeling off today. He is taking a probiotic , and thinks that since that time she has Noticed this. Fever 05/22/2014 09/28/2016 Last Assessment & Plan: She has been having fever on and off for the past week, it she has cheked it at home 99 to 101. Abdominal pain, right upper quadrant 04/24/2014 09/28/2016 Overview: She has been having abdominal pain 4 weeks, RUQ, hida scan showed 40 % activity GB was taken out, found to have inflammation Of the GB And calcification. She cannot tell if it was better. She got the CDiff after the clindamycin. She wasn't feeling right at all for the last 4 weeks. Following the surgery she had cdiff diarrhea and took flagyl which helped The diarrhea resolved, and the contrast she took for the CT scan made her get the diarrhea again and she Never has had a normal BOWEL movement since then 4 weeks a go. Last Assessment & Plan: She has been having abdominal pain 4 weeks, RUQ, hida scan showed 40 % activity GB was taken out, found to have inflammation Of the GB And calcification. She cannot tell if it was better. She got the CDiff after the clindamycin. She wasn't feeling right at all for the last 4 weeks. Following the surgery she had cdiff diarrhea and took flagyl which helped The diarrhea resolved, and the contrast she took for the CT scan made her get the diarrhea again and she Never has had a normal BOWEL movement since then 4 weeks a go. She is off work for the last 4 week. Today she has pain in the right side and the belly button. 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 Pain in joint, pelvic region and thigh 8 09/28/2016 documented as of this encounter (statuses as of 06/30/2022) [facility]08-21[facility]2014 History of Past illness Narrative* Problem Noted Date Resolved Date Thrush 05/30/2014 09/28/2016 Last Assessment & Plan: Patient noticed a whitish coat on her tongue the last 2 weeks, she came in today Because it is progressively getting worse and she thinks it is peeling off today. He is taking a probiotic , and thinks that since that time she has Noticed this. Fever 05/22/2014 09/28/2016 Last Assessment & Plan: She has been having fever on and off for the past week, it she has cheked it at home 99 to 101. Abdominal pain, right upper quadrant 04/24/2014 09/28/2016 Overview: She has been having abdominal pain 4 weeks, RUQ, hida scan showed 40 % activity GB was taken out, found to have inflammation Of the GB And calcification. She cannot tell if it was better. She got the CDiff after the clindamycin. She wasn't feeling right at all for the last 4 weeks. Following the surgery she had cdiff diarrhea and took flagyl which helped The diarrhea resolved, and the contrast she took for the CT scan made her get the diarrhea again and she Never has had a normal BOWEL movement since then 4 weeks a go. Last Assessment & Plan: She has been having abdominal pain 4 weeks, RUQ, hida scan showed 40 % activity GB was taken out, found to have inflammation Of the GB And calcification. She cannot tell if it was better. She got the CDiff after the clindamycin. She wasn't feeling right at all for the last 4 weeks. Following the surgery she had cdiff diarrhea and took flagyl which helped The diarrhea resolved, and the contrast she took for the CT scan made her get the diarrhea again and she Never has had a normal BOWEL movement since then 4 weeks a go. She is off work for the last 4 week. Today she has pain in the right side and the belly button. 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 Pain in joint, pelvic region and thigh 8 09/28/2016 documented as of this encounter (statuses as of 08/12/2022) [facility]08[facility] History of Past illness Narrative* Problem Noted Date Resolved Date Thrush 05/30/2014 09/28/2016 Last Assessment & Plan: Patient noticed a whitish coat on her tongue the last 2 weeks, she came in today Because it is progressively getting worse and she thinks it is peeling off today. He is taking a probiotic , and thinks that since that time she has Noticed this. Fever 05/22/2014 09/28/2016 Last Assessment & Plan: She has been having fever on and off for the past week, it she has cheked it at home 99 to 101. Abdominal pain, right upper quadrant 04/24/2014 09/28/2016 Overview: She has been having abdominal pain 4 weeks, RUQ, hida scan showed 40 % activity GB was taken out, found to have inflammation Of the GB And calcification. She cannot tell if it was better. She got the CDiff after the clindamycin. She wasn't feeling right at all for the last 4 weeks. Following the surgery she had cdiff diarrhea and took flagyl which helped The diarrhea resolved, and the contrast she took for the CT scan made her get the diarrhea again and she Never has had a normal BOWEL movement since then 4 weeks a go. Last Assessment & Plan: She has been having abdominal pain 4 weeks, RUQ, hida scan showed 40 % activity GB was taken out, found to have inflammation Of the GB And calcification. She cannot tell if it was better. She got the CDiff after the clindamycin. She wasn't feeling right at all for the last 4 weeks. Following the surgery she had cdiff diarrhea and took flagyl which helped The diarrhea resolved, and the contrast she took for the CT scan made her get the diarrhea again and she Never has had a normal BOWEL movement since then 4 weeks a go. She is off work for the last 4 week. Today she has pain in the right side and the belly button. 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 Pain in joint, pelvic region and thigh 8 09/28/2016 documented as of this encounter (statuses as of 10/13/2022) [facility]08[facility]2014 History of Past illness Narrative* Problem Noted Date Resolved Date Thrush 05/30/2014 09/28/2016 Last Assessment & Plan: Patient noticed a whitish coat on her tongue the last 2 weeks, she came in today Because it is progressively getting worse and she thinks it is peeling off today. He is taking a probiotic , and thinks that since that time she has Noticed this. Fever 05/22/2014 09/28/2016 Last Assessment & Plan: She has been having fever on and off for the past week, it she has cheked it at home 99 to 101. Abdominal pain, right upper quadrant 04/24/2014 09/28/2016 Overview: She has been having abdominal pain 4 weeks, RUQ, hida scan showed 40 % activity GB was taken out, found to have inflammation Of the GB And calcification. She cannot tell if it was better. She got the CDiff after the clindamycin. She wasn't feeling right at all for the last 4 weeks. Following the surgery she had cdiff diarrhea and took flagyl which helped The diarrhea resolved, and the contrast she took for the CT scan made her get the diarrhea again and she Never has had a normal BOWEL movement since then 4 weeks a go. Last Assessment & Plan: She has been having abdominal pain 4 weeks, RUQ, hida scan showed 40 % activity GB was taken out, found to have inflammation Of the GB And calcification. She cannot tell if it was better. She got the CDiff after the clindamycin. She wasn't feeling right at all for the last 4 weeks. Following the surgery she had cdiff diarrhea and took flagyl which helped The diarrhea resolved, and the contrast she took for the CT scan made her get the diarrhea again and she Never has had a normal BOWEL movement since then 4 weeks a go. She is off work for the last 4 week. Today she has pain in the right side and the belly button. 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 Pain in joint, pelvic region and thigh 8 09/28/2016 documented as of this encounter (statuses as of 10/13/2022) [facility]08[facility] History of Past illness Narrative* Problem Noted Date Resolved Date Thrush 05/30/2014 09/28/2016 Last Assessment & Plan: Patient noticed a whitish coat on her tongue the last 2 weeks, she came in today Because it is progressively getting worse and she thinks it is peeling off today. He is taking a probiotic , and thinks that since that time she has Noticed this. Fever 05/22/2014 09/28/2016 Last Assessment & Plan: She has been having fever on and off for the past week, it she has cheked it at home 99 to 101. Abdominal pain, right upper quadrant 04/24/2014 09/28/2016 Overview: She has been having abdominal pain 4 weeks, RUQ, hida scan showed 40 % activity GB was taken out, found to have inflammation Of the GB And calcification. She cannot tell if it was better. She got the CDiff after the clindamycin. She wasn't feeling right at all for the last 4 weeks. Following the surgery she had cdiff diarrhea and took flagyl which helped The diarrhea resolved, and the contrast she took for the CT scan made her get the diarrhea again and she Never has had a normal BOWEL movement since then 4 weeks a go. Last Assessment & Plan: She has been having abdominal pain 4 weeks, RUQ, hida scan showed 40 % activity GB was taken out, found to have inflammation Of the GB And calcification. She cannot tell if it was better. She got the CDiff after the clindamycin. She wasn't feeling right at all for the last 4 weeks. Following the surgery she had cdiff diarrhea and took flagyl which helped The diarrhea resolved, and the contrast she took for the CT scan made her get the diarrhea again and she Never has had a normal BOWEL movement since then 4 weeks a go. She is off work for the last 4 week. Today she has pain in the right side and the belly button. 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 Pain in joint, pelvic region and thigh 8 09/28/2016 documented as of this encounter (statuses as of 10/25/2022) [facility]08[facility]2014 History of Past illness Narrative* Problem Noted Date Resolved Date Thrush 05/30/2014 09/28/2016 Last Assessment & Plan: Patient noticed a whitish coat on her tongue the last 2 weeks, she came in today Because it is progressively getting worse and she thinks it is peeling off today. He is taking a probiotic , and thinks that since that time she has Noticed this. Fever 05/22/2014 09/28/2016 Last Assessment & Plan: She has been having fever on and off for the past week, it she has cheked it at home 99 to 101. Abdominal pain, right upper quadrant 04/24/2014 09/28/2016 Overview: She has been having abdominal pain 4 weeks, RUQ, hida scan showed 40 % activity GB was taken out, found to have inflammation Of the GB And calcification. She cannot tell if it was better. She got the CDiff after the clindamycin. She wasn't feeling right at all for the last 4 weeks. Following the surgery she had cdiff diarrhea and took flagyl which helped The diarrhea resolved, and the contrast she took for the CT scan made her get the diarrhea again and she Never has had a normal BOWEL movement since then 4 weeks a go. Last Assessment & Plan: She has been having abdominal pain 4 weeks, RUQ, hida scan showed 40 % activity GB was taken out, found to have inflammation Of the GB And calcification. She cannot tell if it was better. She got the CDiff after the clindamycin. She wasn't feeling right at all for the last 4 weeks. Following the surgery she had cdiff diarrhea and took flagyl which helped The diarrhea resolved, and the contrast she took for the CT scan made her get the diarrhea again and she Never has had a normal BOWEL movement since then 4 weeks a go. She is off work for the last 4 week. Today she has pain in the right side and the belly button. 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 Pain in joint, pelvic region and thigh 8 09/28/2016 documented as of this encounter (statuses as of 11/25/2022) [facility]08[facility]2014 History of Past illness Narrative* Problem Noted Date Resolved Date Thrush 05/30/2014 09/28/2016 Last Assessment & Plan: Patient noticed a whitish coat on her tongue the last 2 weeks, she came in today Because it is progressively getting worse and she thinks it is peeling off today. He is taking a probiotic , and thinks that since that time she has Noticed this. Fever 05/22/2014 09/28/2016 Last Assessment & Plan: She has been having fever on and off for the past week, it she has cheked it at home 99 to 101. Abdominal pain, right upper quadrant 04/24/2014 09/28/2016 Overview: She has been having abdominal pain 4 weeks, RUQ, hida scan showed 40 % activity GB was taken out, found to have inflammation Of the GB And calcification. She cannot tell if it was better. She got the CDiff after the clindamycin. She wasn't feeling right at all for the last 4 weeks. Following the surgery she had cdiff diarrhea and took flagyl which helped The diarrhea resolved, and the contrast she took for the CT scan made her get the diarrhea again and she Never has had a normal BOWEL movement since then 4 weeks a go. Last Assessment & Plan: She has been having abdominal pain 4 weeks, RUQ, hida scan showed 40 % activity GB was taken out, found to have inflammation Of the GB And calcification. She cannot tell if it was better. She got the CDiff after the clindamycin. She wasn't feeling right at all for the last 4 weeks. Following the surgery she had cdiff diarrhea and took flagyl which helped The diarrhea resolved, and the contrast she took for the CT scan made her get the diarrhea again and she Never has had a normal BOWEL movement since then 4 weeks a go. She is off work for the last 4 week. Today she has pain in the right side and the belly button. 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 Pain in joint, pelvic region and thigh 8 09/28/2016 documented as of this encounter (statuses as of 11/29/2022) [facility]08[facility]2014 History of Past illness Narrative* Problem Noted Date Resolved Date Thrush 05/30/2014 09/28/2016 Last Assessment & Plan: Patient noticed a whitish coat on her tongue the last 2 weeks, she came in today Because it is progressively getting worse and she thinks it is peeling off today. He is taking a probiotic , and thinks that since that time she has Noticed this. Fever 05/22/2014 09/28/2016 Last Assessment & Plan: She has been having fever on and off for the past week, it she has cheked it at home 99 to 101. Abdominal pain, right upper quadrant 04/24/2014 09/28/2016 Overview: She has been having abdominal pain 4 weeks, RUQ, hida scan showed 40 % activity GB was taken out, found to have inflammation Of the GB And calcification. She cannot tell if it was better. She got the CDiff after the clindamycin. She wasn't feeling right at all for the last 4 weeks. Following the surgery she had cdiff diarrhea and took flagyl which helped The diarrhea resolved, and the contrast she took for the CT scan made her get the diarrhea again and she Never has had a normal BOWEL movement since then 4 weeks a go. Last Assessment & Plan: She has been having abdominal pain 4 weeks, RUQ, hida scan showed 40 % activity GB was taken out, found to have inflammation Of the GB And calcification. She cannot tell if it was better. She got the CDiff after the clindamycin. She wasn't feeling right at all for the last 4 weeks. Following the surgery she had cdiff diarrhea and took flagyl which helped The diarrhea resolved, and the contrast she took for the CT scan made her get the diarrhea again and she Never has had a normal BOWEL movement since then 4 weeks a go. She is off work for the last 4 week. Today she has pain in the right side and the belly button. 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 Pain in joint, pelvic region and thigh 8 09/28/2016 documented as of this encounter (statuses as of 12/19/2022) [facility]08[facility] History of Past illness Narrative* Problem Noted Date Resolved Date Thrush 05/30/2014 09/28/2016 Last Assessment & Plan: Patient noticed a whitish coat on her tongue the last 2 weeks, she came in today Because it is progressively getting worse and she thinks it is peeling off today. He is taking a probiotic , and thinks that since that time she has Noticed this. Fever 05/22/2014 09/28/2016 Last Assessment & Plan: She has been having fever on and off for the past week, it she has cheked it at home 99 to 101. Abdominal pain, right upper quadrant 04/24/2014 09/28/2016 Overview: She has been having abdominal pain 4 weeks, RUQ, hida scan showed 40 % activity GB was taken out, found to have inflammation Of the GB And calcification. She cannot tell if it was better. She got the CDiff after the clindamycin. She wasn't feeling right at all for the last 4 weeks. Following the surgery she had cdiff diarrhea and took flagyl which helped The diarrhea resolved, and the contrast she took for the CT scan made her get the diarrhea again and she Never has had a normal BOWEL movement since then 4 weeks a go. Last Assessment & Plan: She has been having abdominal pain 4 weeks, RUQ, hida scan showed 40 % activity GB was taken out, found to have inflammation Of the GB And calcification. She cannot tell if it was better. She got the CDiff after the clindamycin. She wasn't feeling right at all for the last 4 weeks. Following the surgery she had cdiff diarrhea and took flagyl which helped The diarrhea resolved, and the contrast she took for the CT scan made her get the diarrhea again and she Never has had a normal BOWEL movement since then 4 weeks a go. She is off work for the last 4 week. Today she has pain in the right side and the belly button. 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 Pain in joint, pelvic region and thigh 8 09/28/2016 documented as of this encounter (statuses as of 12/23/2022) [facility] History of Past illness Narrative* Problem Noted Date Resolved Date Thrush 05/30/2014 09/28/2016 Last Assessment & Plan: Patient noticed a whitish coat on her tongue the last 2 weeks, she came in today Because it is progressively getting worse and she thinks it is peeling off today. He is taking a probiotic , and thinks that since that time she has Noticed this. Fever 05/22/2014 09/28/2016 Last Assessment & Plan: She has been having fever on and off for the past week, it she has cheked it at home 99 to 101. Abdominal pain, right upper quadrant 04/24/2014 09/28/2016 Overview: She has been having abdominal pain 4 weeks, RUQ, hida scan showed 40 % activity GB was taken out, found to have inflammation Of the GB And calcification. She cannot tell if it was better. She got the CDiff after the clindamycin. She wasn't feeling right at all for the last 4 weeks. Following the surgery she had cdiff diarrhea and took flagyl which helped The diarrhea resolved, and the contrast she took for the CT scan made her get the diarrhea again and she Never has had a normal BOWEL movement since then 4 weeks a go. Last Assessment & Plan: She has been having abdominal pain 4 weeks, RUQ, hida scan showed 40 % activity GB was taken out, found to have inflammation Of the GB And calcification. She cannot tell if it was better. She got the CDiff after the clindamycin. She wasn't feeling right at all for the last 4 weeks. Following the surgery she had cdiff diarrhea and took flagyl which helped The diarrhea resolved, and the contrast she took for the CT scan made her get the diarrhea again and she Never has had a normal BOWEL movement since then 4 weeks a go. She is off work for the last 4 week. Today she has pain in the right side and the belly button. 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 Pain in joint, pelvic region and thigh 8 09/28/2016 documented as of this encounter (statuses as of 12/30/2022) [facility] History of Past illness Narrative* Problem Noted Date Resolved Date Thrush 05/30/2014 09/28/2016 Last Assessment & Plan: Patient noticed a whitish coat on her tongue the last 2 weeks, she came in today Because it is progressively getting worse and she thinks it is peeling off today. He is taking a probiotic , and thinks that since that time she has Noticed this. Fever 05/22/2014 09/28/2016 Last Assessment & Plan: She has been having fever on and off for the past week, it she has cheked it at home 99 to 101. Abdominal pain, right upper quadrant 04/24/2014 09/28/2016 Overview: She has been having abdominal pain 4 weeks, RUQ, hida scan showed 40 % activity GB was taken out, found to have inflammation Of the GB And calcification. She cannot tell if it was better. She got the CDiff after the clindamycin. She wasn't feeling right at all for the last 4 weeks. Following the surgery she had cdiff diarrhea and took flagyl which helped The diarrhea resolved, and the contrast she took for the CT scan made her get the diarrhea again and she Never has had a normal BOWEL movement since then 4 weeks a go. Last Assessment & Plan: She has been having abdominal pain 4 weeks, RUQ, hida scan showed 40 % activity GB was taken out, found to have inflammation Of the GB And calcification. She cannot tell if it was better. She got the CDiff after the clindamycin. She wasn't feeling right at all for the last 4 weeks. Following the surgery she had cdiff diarrhea and took flagyl which helped The diarrhea resolved, and the contrast she took for the CT scan made her get the diarrhea again and she Never has had a normal BOWEL movement since then 4 weeks a go. She is off work for the last 4 week. Today she has pain in the right side and the belly button. 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 Pain in joint, pelvic region and thigh 8 09/28/2016 documented as of this encounter (statuses as of 2023) [facility]08-21-2014 History of Past illness Narrative* Problem Noted Date Resolved Date Thrush 05/30/2014 09/28/2016 Last Assessment & Plan: Patient noticed a whitish coat on her tongue the last 2 weeks, she came in today Because it is progressively getting worse and she thinks it is peeling off today. He is taking a probiotic , and thinks that since that time she has Noticed this. Fever 05/22/2014 09/28/2016 Last Assessment & Plan: She has been having fever on and off for the past week, it she has cheked it at home 99 to 101. Abdominal pain, right upper quadrant 04/24/2014 09/28/2016 Overview: She has been having abdominal pain 4 weeks, RUQ, hida scan showed 40 % activity GB was taken out, found to have inflammation Of the GB And calcification. She cannot tell if it was better. She got the CDiff after the clindamycin. She wasn't feeling right at all for the last 4 weeks. Following the surgery she had cdiff diarrhea and took flagyl which helped The diarrhea resolved, and the contrast she took for the CT scan made her get the diarrhea again and she Never has had a normal BOWEL movement since then 4 weeks a go. Last Assessment & Plan: She has been having abdominal pain 4 weeks, RUQ, hida scan showed 40 % activity GB was taken out, found to have inflammation Of the GB And calcification. She cannot tell if it was better. She got the CDiff after the clindamycin. She wasn't feeling right at all for the last 4 weeks. Following the surgery she had cdiff diarrhea and took flagyl which helped The diarrhea resolved, and the contrast she took for the CT scan made her get the diarrhea again and she Never has had a normal BOWEL movement since then 4 weeks a go. She is off work for the last 4 week. Today she has pain in the right side and the belly button. 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 Pain in joint, pelvic region and thigh 8 09/28/2016 documented as of this encounter (statuses as of 01/05/2023) [facility]08-21-2014 History of Past illness Narrative* Problem Noted Date Resolved Date Thrush 05/30/2014 09/28/2016 Last Assessment & Plan: Patient noticed a whitish coat on her tongue the last 2 weeks, she came in today Because it is progressively getting worse and she thinks it is peeling off today. He is taking a probiotic , and thinks that since that time she has Noticed this. Fever 05/22/2014 09/28/2016 Last Assessment & Plan: She has been having fever on and off for the past week, it she has cheked it at home 99 to 101. Abdominal pain, right upper quadrant 04/24/2014 09/28/2016 Overview: She has been having abdominal pain 4 weeks, RUQ, hida scan showed 40 % activity GB was taken out, found to have inflammation Of the GB And calcification. She cannot tell if it was better. She got the CDiff after the clindamycin. She wasn't feeling right at all for the last 4 weeks. Following the surgery she had cdiff diarrhea and took flagyl which helped The diarrhea resolved, and the contrast she took for the CT scan made her get the diarrhea again and she Never has had a normal BOWEL movement since then 4 weeks a go. Last Assessment & Plan: She has been having abdominal pain 4 weeks, RUQ, hida scan showed 40 % activity GB was taken out, found to have inflammation Of the GB And calcification. She cannot tell if it was better. She got the CDiff after the clindamycin. She wasn't feeling right at all for the last 4 weeks. Following the surgery she had cdiff diarrhea and took flagyl which helped The diarrhea resolved, and the contrast she took for the CT scan made her get the diarrhea again and she Never has had a normal BOWEL movement since then 4 weeks a go. She is off work for the last 4 week. Today she has pain in the right side and the belly button. 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 Pain in joint, pelvic region and thigh 8 09/28/2016 documented as of this encounter (statuses as of 01/06/2023) [facility]08-21-2014 History of Past illness Narrative* Problem Noted Date Resolved Date Thrush 05/30/2014 09/28/2016 Last Assessment & Plan: Patient noticed a whitish coat on her tongue the last 2 weeks, she came in today Because it is progressively getting worse and she thinks it is peeling off today. He is taking a probiotic , and thinks that since that time she has Noticed this. Fever 05/22/2014 09/28/2016 Last Assessment & Plan: She has been having fever on and off for the past week, it she has cheked it at home 99 to 101. Abdominal pain, right upper quadrant 04/24/2014 09/28/2016 Overview: She has been having abdominal pain 4 weeks, RUQ, hida scan showed 40 % activity GB was taken out, found to have inflammation Of the GB And calcification. She cannot tell if it was better. She got the CDiff after the clindamycin. She wasn't feeling right at all for the last 4 weeks. Following the surgery she had cdiff diarrhea and took flagyl which helped The diarrhea resolved, and the contrast she took for the CT scan made her get the diarrhea again and she Never has had a normal BOWEL movement since then 4 weeks a go. Last Assessment & Plan: She has been having abdominal pain 4 weeks, RUQ, hida scan showed 40 % activity GB was taken out, found to have inflammation Of the GB And calcification. She cannot tell if it was better. She got the CDiff after the clindamycin. She wasn't feeling right at all for the last 4 weeks. Following the surgery she had cdiff diarrhea and took flagyl which helped The diarrhea resolved, and the contrast she took for the CT scan made her get the diarrhea again and she Never has had a normal BOWEL movement since then 4 weeks a go. She is off work for the last 4 week. Today she has pain in the right side and the belly button. 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 Pain in joint, pelvic region and thigh 8 09/28/2016 documented as of this encounter (statuses as of 01/06/2023) [facility]08-21[facility]2014 History of Past illness Narrative* Problem Noted Date Resolved Date Thrush 05/30/2014 09/28/2016 Last Assessment & Plan: Patient noticed a whitish coat on her tongue the last 2 weeks, she came in today Because it is progressively getting worse and she thinks it is peeling off today. He is taking a probiotic , and thinks that since that time she has Noticed this. Fever 05/22/2014 09/28/2016 Last Assessment & Plan: She has been having fever on and off for the past week, it she has cheked it at home 99 to 101. Abdominal pain, right upper quadrant 04/24/2014 09/28/2016 Overview: She has been having abdominal pain 4 weeks, RUQ, hida scan showed 40 % activity GB was taken out, found to have inflammation Of the GB And calcification. She cannot tell if it was better. She got the CDiff after the clindamycin. She wasn't feeling right at all for the last 4 weeks. Following the surgery she had cdiff diarrhea and took flagyl which helped The diarrhea resolved, and the contrast she took for the CT scan made her get the diarrhea again and she Never has had a normal BOWEL movement since then 4 weeks a go. Last Assessment & Plan: She has been having abdominal pain 4 weeks, RUQ, hida scan showed 40 % activity GB was taken out, found to have inflammation Of the GB And calcification. She cannot tell if it was better. She got the CDiff after the clindamycin. She wasn't feeling right at all for the last 4 weeks. Following the surgery she had cdiff diarrhea and took flagyl which helped The diarrhea resolved, and the contrast she took for the CT scan made her get the diarrhea again and she Never has had a normal BOWEL movement since then 4 weeks a go. She is off work for the last 4 week. Today she has pain in the right side and the belly button. 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 Pain in joint, pelvic region and thigh 8 09/28/2016 documented as of this encounter (statuses as of 01/07/2023) [facility]08-21-2014 History of Past illness Narrative* Problem Noted Date Resolved Date Thrush 05/30/2014 09/28/2016 Last Assessment & Plan: Patient noticed a whitish coat on her tongue the last 2 weeks, she came in today Because it is progressively getting worse and she thinks it is peeling off today. He is taking a probiotic , and thinks that since that time she has Noticed this. Fever 05/22/2014 09/28/2016 Last Assessment & Plan: She has been having fever on and off for the past week, it she has cheked it at home 99 to 101. Abdominal pain, right upper quadrant 04/24/2014 09/28/2016 Overview: She has been having abdominal pain 4 weeks, RUQ, hida scan showed 40 % activity GB was taken out, found to have inflammation Of the GB And calcification. She cannot tell if it was better. She got the CDiff after the clindamycin. She wasn't feeling right at all for the last 4 weeks. Following the surgery she had cdiff diarrhea and took flagyl which helped The diarrhea resolved, and the contrast she took for the CT scan made her get the diarrhea again and she Never has had a normal BOWEL movement since then 4 weeks a go. Last Assessment & Plan: She has been having abdominal pain 4 weeks, RUQ, hida scan showed 40 % activity GB was taken out, found to have inflammation Of the GB And calcification. She cannot tell if it was better. She got the CDiff after the clindamycin. She wasn't feeling right at all for the last 4 weeks. Following the surgery she had cdiff diarrhea and took flagyl which helped The diarrhea resolved, and the contrast she took for the CT scan made her get the diarrhea again and she Never has had a normal BOWEL movement since then 4 weeks a go. She is off work for the last 4 week. Today she has pain in the right side and the belly button. 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 Pain in joint, pelvic region and thigh 8 09/28/2016 documented as of this encounter (statuses as of 01/21/2023) [facility]08-[facility]2014 History of Past illness Narrative* Problem Noted Date Resolved Date Thrush 05/30/2014 09/28/2016 Last Assessment & Plan: Patient noticed a whitish coat on her tongue the last 2 weeks, she came in today Because it is progressively getting worse and she thinks it is peeling off today. He is taking a probiotic , and thinks that since that time she has Noticed this. Fever 05/22/2014 09/28/2016 Last Assessment & Plan: She has been having fever on and off for the past week, it she has cheked it at home 99 to 101. Abdominal pain, right upper quadrant 04/24/2014 09/28/2016 Overview: She has been having abdominal pain 4 weeks, RUQ, hida scan showed 40 % activity GB was taken out, found to have inflammation Of the GB And calcification. She cannot tell if it was better. She got the CDiff after the clindamycin. She wasn't feeling right at all for the last 4 weeks. Following the surgery she had cdiff diarrhea and took flagyl which helped The diarrhea resolved, and the contrast she took for the CT scan made her get the diarrhea again and she Never has had a normal BOWEL movement since then 4 weeks a go. Last Assessment & Plan: She has been having abdominal pain 4 weeks, RUQ, hida scan showed 40 % activity GB was taken out, found to have inflammation Of the GB And calcification. She cannot tell if it was better. She got the CDiff after the clindamycin. She wasn't feeling right at all for the last 4 weeks. Following the surgery she had cdiff diarrhea and took flagyl which helped The diarrhea resolved, and the contrast she took for the CT scan made her get the diarrhea again and she Never has had a normal BOWEL movement since then 4 weeks a go. She is off work for the last 4 week. Today she has pain in the right side and the belly button. 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 Pain in joint, pelvic region and thigh 8 09/28/2016 documented as of this encounter (statuses as of 01/22/2023) [facility]08[facility]2014 History of Past illness Narrative* Problem Noted Date Resolved Date Thrush 05/30/2014 09/28/2016 Last Assessment & Plan: Patient noticed a whitish coat on her tongue the last 2 weeks, she came in today Because it is progressively getting worse and she thinks it is peeling off today. He is taking a probiotic , and thinks that since that time she has Noticed this. Fever 05/22/2014 09/28/2016 Last Assessment & Plan: She has been having fever on and off for the past week, it she has cheked it at home 99 to 101. Abdominal pain, right upper quadrant 04/24/2014 09/28/2016 Overview: She has been having abdominal pain 4 weeks, RUQ, hida scan showed 40 % activity GB was taken out, found to have inflammation Of the GB And calcification. She cannot tell if it was better. She got the CDiff after the clindamycin. She wasn't feeling right at all for the last 4 weeks. Following the surgery she had cdiff diarrhea and took flagyl which helped The diarrhea resolved, and the contrast she took for the CT scan made her get the diarrhea again and she Never has had a normal BOWEL movement since then 4 weeks a go. Last Assessment & Plan: She has been having abdominal pain 4 weeks, RUQ, hida scan showed 40 % activity GB was taken out, found to have inflammation Of the GB And calcification. She cannot tell if it was better. She got the CDiff after the clindamycin. She wasn't feeling right at all for the last 4 weeks. Following the surgery she had cdiff diarrhea and took flagyl which helped The diarrhea resolved, and the contrast she took for the CT scan made her get the diarrhea again and she Never has had a normal BOWEL movement since then 4 weeks a go. She is off work for the last 4 week. Today she has pain in the right side and the belly button. 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 Pain in joint, pelvic region and thigh 8 09/28/2016 documented as of this encounter (statuses as of 01/31/2023) [facility]08[facility]2014 History of Past illness Narrative* Problem Noted Date Resolved Date Thrush 05/30/2014 09/28/2016 Last Assessment & Plan: Patient noticed a whitish coat on her tongue the last 2 weeks, she came in today Because it is progressively getting worse and she thinks it is peeling off today. He is taking a probiotic , and thinks that since that time she has Noticed this. Fever 05/22/2014 09/28/2016 Last Assessment & Plan: She has been having fever on and off for the past week, it she has cheked it at home 99 to 101. Abdominal pain, right upper quadrant 04/24/2014 09/28/2016 Overview: She has been having abdominal pain 4 weeks, RUQ, hida scan showed 40 % activity GB was taken out, found to have inflammation Of the GB And calcification. She cannot tell if it was better. She got the CDiff after the clindamycin. She wasn't feeling right at all for the last 4 weeks. Following the surgery she had cdiff diarrhea and took flagyl which helped The diarrhea resolved, and the contrast she took for the CT scan made her get the diarrhea again and she Never has had a normal BOWEL movement since then 4 weeks a go. Last Assessment & Plan: She has been having abdominal pain 4 weeks, RUQ, hida scan showed 40 % activity GB was taken out, found to have inflammation Of the GB And calcification. She cannot tell if it was better. She got the CDiff after the clindamycin. She wasn't feeling right at all for the last 4 weeks. Following the surgery she had cdiff diarrhea and took flagyl which helped The diarrhea resolved, and the contrast she took for the CT scan made her get the diarrhea again and she Never has had a normal BOWEL movement since then 4 weeks a go. She is off work for the last 4 week. Today she has pain in the right side and the belly button. 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 Pain in joint, pelvic region and thigh 8 09/28/2016 documented as of this encounter (statuses as of 02/04/2023) [facility]08[facility]21-2014 History of Past illness Narrative* Problem Noted Date Resolved Date Thrush 05/30/2014 09/28/2016 Last Assessment & Plan: Patient noticed a whitish coat on her tongue the last 2 weeks, she came in today Because it is progressively getting worse and she thinks it is peeling off today. He is taking a probiotic , and thinks that since that time she has Noticed this. Fever 05/22/2014 09/28/2016 Last Assessment & Plan: She has been having fever on and off for the past week, it she has cheked it at home 99 to 101. Abdominal pain, right upper quadrant 04/24/2014 09/28/2016 Overview: She has been having abdominal pain 4 weeks, RUQ, hida scan showed 40 % activity GB was taken out, found to have inflammation Of the GB And calcification. She cannot tell if it was better. She got the CDiff after the clindamycin. She wasn't feeling right at all for the last 4 weeks. Following the surgery she had cdiff diarrhea and took flagyl which helped The diarrhea resolved, and the contrast she took for the CT scan made her get the diarrhea again and she Never has had a normal BOWEL movement since then 4 weeks a go. Last Assessment & Plan: She has been having abdominal pain 4 weeks, RUQ, hida scan showed 40 % activity GB was taken out, found to have inflammation Of the GB And calcification. She cannot tell if it was better. She got the CDiff after the clindamycin. She wasn't feeling right at all for the last 4 weeks. Following the surgery she had cdiff diarrhea and took flagyl which helped The diarrhea resolved, and the contrast she took for the CT scan made her get the diarrhea again and she Never has had a normal BOWEL movement since then 4 weeks a go. She is off work for the last 4 week. Today she has pain in the right side and the belly button. 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 Pain in joint, pelvic region and thigh 8 09/28/2016 documented as of this encounter (statuses as of 02/04/2023) [facility]08[facility]2014 History of Past illness Narrative* Problem Noted Date Resolved Date Thrush 05/30/2014 09/28/2016 Last Assessment & Plan: Patient noticed a whitish coat on her tongue the last 2 weeks, she came in today Because it is progressively getting worse and she thinks it is peeling off today. He is taking a probiotic , and thinks that since that time she has Noticed this. Fever 05/22/2014 09/28/2016 Last Assessment & Plan: She has been having fever on and off for the past week, it she has cheked it at home 99 to 101. Abdominal pain, right upper quadrant 04/24/2014 09/28/2016 Overview: She has been having abdominal pain 4 weeks, RUQ, hida scan showed 40 % activity GB was taken out, found to have inflammation Of the GB And calcification. She cannot tell if it was better. She got the CDiff after the clindamycin. She wasn't feeling right at all for the last 4 weeks. Following the surgery she had cdiff diarrhea and took flagyl which helped The diarrhea resolved, and the contrast she took for the CT scan made her get the diarrhea again and she Never has had a normal BOWEL movement since then 4 weeks a go. Last Assessment & Plan: She has been having abdominal pain 4 weeks, RUQ, hida scan showed 40 % activity GB was taken out, found to have inflammation Of the GB And calcification. She cannot tell if it was better. She got the CDiff after the clindamycin. She wasn't feeling right at all for the last 4 weeks. Following the surgery she had cdiff diarrhea and took flagyl which helped The diarrhea resolved, and the contrast she took for the CT scan made her get the diarrhea again and she Never has had a normal BOWEL movement since then 4 weeks a go. She is off work for the last 4 week. Today she has pain in the right side and the belly button. 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 Pain in joint, pelvic region and thigh 8 09/28/2016 documented as of this encounter (statuses as of 02/11/2023) [facility] History of Past illness Narrative* Problem Noted Date Resolved Date Thrush 05/30/2014 09/28/2016 Last Assessment & Plan: Patient noticed a whitish coat on her tongue the last 2 weeks, she came in today Because it is progressively getting worse and she thinks it is peeling off today. He is taking a probiotic , and thinks that since that time she has Noticed this. Fever 05/22/2014 09/28/2016 Last Assessment & Plan: She has been having fever on and off for the past week, it she has cheked it at home 99 to 101. Abdominal pain, right upper quadrant 04/24/2014 09/28/2016 Overview: She has been having abdominal pain 4 weeks, RUQ, hida scan showed 40 % activity GB was taken out, found to have inflammation Of the GB And calcification. She cannot tell if it was better. She got the CDiff after the clindamycin. She wasn't feeling right at all for the last 4 weeks. Following the surgery she had cdiff diarrhea and took flagyl which helped The diarrhea resolved, and the contrast she took for the CT scan made her get the diarrhea again and she Never has had a normal BOWEL movement since then 4 weeks a go. Last Assessment & Plan: She has been having abdominal pain 4 weeks, RUQ, hida scan showed 40 % activity GB was taken out, found to have inflammation Of the GB And calcification. She cannot tell if it was better. She got the CDiff after the clindamycin. She wasn't feeling right at all for the last 4 weeks. Following the surgery she had cdiff diarrhea and took flagyl which helped The diarrhea resolved, and the contrast she took for the CT scan made her get the diarrhea again and she Never has had a normal BOWEL movement since then 4 weeks a go. She is off work for the last 4 week. Today she has pain in the right side and the belly button. 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 Pain in joint, pelvic region and thigh 8 09/28/2016 documented as of this encounter (statuses as of 02/14/2023) [facility] History of Past illness Narrative* Problem Noted Date Resolved Date Thrush 05/30/2014 09/28/2016 Last Assessment & Plan: Patient noticed a whitish coat on her tongue the last 2 weeks, she came in today Because it is progressively getting worse and she thinks it is peeling off today. He is taking a probiotic , and thinks that since that time she has Noticed this. Fever 05/22/2014 09/28/2016 Last Assessment & Plan: She has been having fever on and off for the past week, it she has cheked it at home 99 to 101. Abdominal pain, right upper quadrant 04/24/2014 09/28/2016 Overview: She has been having abdominal pain 4 weeks, RUQ, hida scan showed 40 % activity GB was taken out, found to have inflammation Of the GB And calcification. She cannot tell if it was better. She got the CDiff after the clindamycin. She wasn't feeling right at all for the last 4 weeks. Following the surgery she had cdiff diarrhea and took flagyl which helped The diarrhea resolved, and the contrast she took for the CT scan made her get the diarrhea again and she Never has had a normal BOWEL movement since then 4 weeks a go. Last Assessment & Plan: She has been having abdominal pain 4 weeks, RUQ, hida scan showed 40 % activity GB was taken out, found to have inflammation Of the GB And calcification. She cannot tell if it was better. She got the CDiff after the clindamycin. She wasn't feeling right at all for the last 4 weeks. Following the surgery she had cdiff diarrhea and took flagyl which helped The diarrhea resolved, and the contrast she took for the CT scan made her get the diarrhea again and she Never has had a normal BOWEL movement since then 4 weeks a go. She is off work for the last 4 week. Today she has pain in the right side and the belly button. 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 Pain in joint, pelvic region and thigh 8 09/28/2016 documented as of this encounter (statuses as of 02/15/2023) [facility]08-21-2014 History of Past illness Narrative* Problem Noted Date Resolved Date Thrush 05/30/2014 09/28/2016 Last Assessment & Plan: Patient noticed a whitish coat on her tongue the last 2 weeks, she came in today Because it is progressively getting worse and she thinks it is peeling off today. He is taking a probiotic , and thinks that since that time she has Noticed this. Fever 05/22/2014 09/28/2016 Last Assessment & Plan: She has been having fever on and off for the past week, it she has cheked it at home 99 to 101. Abdominal pain, right upper quadrant 04/24/2014 09/28/2016 Overview: She has been having abdominal pain 4 weeks, RUQ, hida scan showed 40 % activity GB was taken out, found to have inflammation Of the GB And calcification. She cannot tell if it was better. She got the CDiff after the clindamycin. She wasn't feeling right at all for the last 4 weeks. Following the surgery she had cdiff diarrhea and took flagyl which helped The diarrhea resolved, and the contrast she took for the CT scan made her get the diarrhea again and she Never has had a normal BOWEL movement since then 4 weeks a go. Last Assessment & Plan: She has been having abdominal pain 4 weeks, RUQ, hida scan showed 40 % activity GB was taken out, found to have inflammation Of the GB And calcification. She cannot tell if it was better. She got the CDiff after the clindamycin. She wasn't feeling right at all for the last 4 weeks. Following the surgery she had cdiff diarrhea and took flagyl which helped The diarrhea resolved, and the contrast she took for the CT scan made her get the diarrhea again and she Never has had a normal BOWEL movement since then 4 weeks a go. She is off work for the last 4 week. Today she has pain in the right side and the belly button. 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 Pain in joint, pelvic region and thigh 8 09/28/2016 documented as of this encounter (statuses as of 02/15/2023) [facility]08-21-2014 History of Past illness Narrative* Problem Noted Date Resolved Date Thrush 05/30/2014 09/28/2016 Last Assessment & Plan: Patient noticed a whitish coat on her tongue the last 2 weeks, she came in today Because it is progressively getting worse and she thinks it is peeling off today. He is taking a probiotic , and thinks that since that time she has Noticed this. Fever 05/22/2014 09/28/2016 Last Assessment & Plan: She has been having fever on and off for the past week, it she has cheked it at home 99 to 101. Abdominal pain, right upper quadrant 04/24/2014 09/28/2016 Overview: She has been having abdominal pain 4 weeks, RUQ, hida scan showed 40 % activity GB was taken out, found to have inflammation Of the GB And calcification. She cannot tell if it was better. She got the CDiff after the clindamycin. She wasn't feeling right at all for the last 4 weeks. Following the surgery she had cdiff diarrhea and took flagyl which helped The diarrhea resolved, and the contrast she took for the CT scan made her get the diarrhea again and she Never has had a normal BOWEL movement since then 4 weeks a go. Last Assessment & Plan: She has been having abdominal pain 4 weeks, RUQ, hida scan showed 40 % activity GB was taken out, found to have inflammation Of the GB And calcification. She cannot tell if it was better. She got the CDiff after the clindamycin. She wasn't feeling right at all for the last 4 weeks. Following the surgery she had cdiff diarrhea and took flagyl which helped The diarrhea resolved, and the contrast she took for the CT scan made her get the diarrhea again and she Never has had a normal BOWEL movement since then 4 weeks a go. She is off work for the last 4 week. Today she has pain in the right side and the belly button. 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 Pain in joint, pelvic region and thigh 8 09/28/2016 documented as of this encounter (statuses as of 03/15/2023) [facility]08-21[facility]2014 History of Past illness Narrative* Problem Noted Date Resolved Date Thrush 05/30/2014 09/28/2016 Last Assessment & Plan: Patient noticed a whitish coat on her tongue the last 2 weeks, she came in today Because it is progressively getting worse and she thinks it is peeling off today. He is taking a probiotic , and thinks that since that time she has Noticed this. Fever 05/22/2014 09/28/2016 Last Assessment & Plan: She has been having fever on and off for the past week, it she has cheked it at home 99 to 101. Abdominal pain, right upper quadrant 04/24/2014 09/28/2016 Overview: She has been having abdominal pain 4 weeks, RUQ, hida scan showed 40 % activity GB was taken out, found to have inflammation Of the GB And calcification. She cannot tell if it was better. She got the CDiff after the clindamycin. She wasn't feeling right at all for the last 4 weeks. Following the surgery she had cdiff diarrhea and took flagyl which helped The diarrhea resolved, and the contrast she took for the CT scan made her get the diarrhea again and she Never has had a normal BOWEL movement since then 4 weeks a go. Last Assessment & Plan: She has been having abdominal pain 4 weeks, RUQ, hida scan showed 40 % activity GB was taken out, found to have inflammation Of the GB And calcification. She cannot tell if it was better. She got the CDiff after the clindamycin. She wasn't feeling right at all for the last 4 weeks. Following the surgery she had cdiff diarrhea and took flagyl which helped The diarrhea resolved, and the contrast she took for the CT scan made her get the diarrhea again and she Never has had a normal BOWEL movement since then 4 weeks a go. She is off work for the last 4 week. Today she has pain in the right side and the belly button. 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 Pain in joint, pelvic region and thigh 8 09/28/2016 documented as of this encounter (statuses as of 04/11/2023) [facility]08-21[facility]2014 History of Past illness Narrative* Problem Noted Date Diagnosed Date Resolved Date Thrush 05/30/2014 09/28/2016 Last Assessment & Plan: Patient noticed a whitish coat on her tongue the last 2 weeks, she came in today Because it is progressively getting worse and she thinks it is peeling off today. He is taking a probiotic , and thinks that since that time she has Noticed this. Fever 05/22/2014 09/28/2016 Last Assessment & Plan: She has been having fever on and off for the past week, it she has cheked it at home 99 to 101. Abdominal pain, right upper quadrant 04/24/2014 09/28/2016 Overview: She has been having abdominal pain 4 weeks, RUQ, hida scan showed 40 % activity GB was taken out, found to have inflammation Of the GB And calcification. She cannot tell if it was better. She got the CDiff after the clindamycin. She wasn't feeling right at all for the last 4 weeks. Following the surgery she had cdiff diarrhea and took flagyl which helped The diarrhea resolved, and the contrast she took for the CT scan made her get the diarrhea again and she Never has had a normal BOWEL movement since then 4 weeks a go. Last Assessment & Plan: She has been having abdominal pain 4 weeks, RUQ, hida scan showed 40 % activity GB was taken out, found to have inflammation Of the GB And calcification. She cannot tell if it was better. She got the CDiff after the clindamycin. She wasn't feeling right at all for the last 4 weeks. Following the surgery she had cdiff diarrhea and took flagyl which helped The diarrhea resolved, and the contrast she took for the CT scan made her get the diarrhea again and she Never has had a normal BOWEL movement since then 4 weeks a go. She is off work for the last 4 week. Today she has pain in the right side and the belly button. 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 Pain in joint, pelvic region and thigh 01/20/2008 09/28/2016 documented as of this encounter (statuses as of 04/19/2023) [facility]08-[facility]2014 History of Past illness Narrative* Problem Noted Date Diagnosed Date Resolved Date Thrush 05/30/2014 09/28/2016 Last Assessment & Plan: Patient noticed a whitish coat on her tongue the last 2 weeks, she came in today Because it is progressively getting worse and she thinks it is peeling off today. He is taking a probiotic , and thinks that since that time she has Noticed this. Fever 05/22/2014 09/28/2016 Last Assessment & Plan: She has been having fever on and off for the past week, it she has cheked it at home 99 to 101. Abdominal pain, right upper quadrant 04/24/2014 09/28/2016 Overview: She has been having abdominal pain 4 weeks, RUQ, hida scan showed 40 % activity GB was taken out, found to have inflammation Of the GB And calcification. She cannot tell if it was better. She got the CDiff after the clindamycin. She wasn't feeling right at all for the last 4 weeks. Following the surgery she had cdiff diarrhea and took flagyl which helped The diarrhea resolved, and the contrast she took for the CT scan made her get the diarrhea again and she Never has had a normal BOWEL movement since then 4 weeks a go. Last Assessment & Plan: She has been having abdominal pain 4 weeks, RUQ, hida scan showed 40 % activity GB was taken out, found to have inflammation Of the GB And calcification. She cannot tell if it was better. She got the CDiff after the clindamycin. She wasn't feeling right at all for the last 4 weeks. Following the surgery she had cdiff diarrhea and took flagyl which helped The diarrhea resolved, and the contrast she took for the CT scan made her get the diarrhea again and she Never has had a normal BOWEL movement since then 4 weeks a go. She is off work for the last 4 week. Today she has pain in the right side and the belly button. 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 Pain in joint, pelvic region and thigh 01/20/2008 09/28/2016 documented as of this encounter (statuses as of 04/23/2023) [facility]08-[facility]2014 History of Past illness Narrative* Problem Noted Date Diagnosed Date Resolved Date Thrush 05/30/2014 09/28/2016 Last Assessment & Plan: Patient noticed a whitish coat on her tongue the last 2 weeks, she came in today Because it is progressively getting worse and she thinks it is peeling off today. He is taking a probiotic , and thinks that since that time she has Noticed this. Fever 05/22/2014 09/28/2016 Last Assessment & Plan: She has been having fever on and off for the past week, it she has cheked it at home 99 to 101. Abdominal pain, right upper quadrant 04/24/2014 09/28/2016 Overview: She has been having abdominal pain 4 weeks, RUQ, hida scan showed 40 % activity GB was taken out, found to have inflammation Of the GB And calcification. She cannot tell if it was better. She got the CDiff after the clindamycin. She wasn't feeling right at all for the last 4 weeks. Following the surgery she had cdiff diarrhea and took flagyl which helped The diarrhea resolved, and the contrast she took for the CT scan made her get the diarrhea again and she Never has had a normal BOWEL movement since then 4 weeks a go. Last Assessment & Plan: She has been having abdominal pain 4 weeks, RUQ, hida scan showed 40 % activity GB was taken out, found to have inflammation Of the GB And calcification. She cannot tell if it was better. She got the CDiff after the clindamycin. She wasn't feeling right at all for the last 4 weeks. Following the surgery she had cdiff diarrhea and took flagyl which helped The diarrhea resolved, and the contrast she took for the CT scan made her get the diarrhea again and she Never has had a normal BOWEL movement since then 4 weeks a go. She is off work for the last 4 week. Today she has pain in the right side and the belly button. 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 Pain in joint, pelvic region and thigh 01/20/2008 09/28/2016 documented as of this encounter (statuses as of 04/26/2023) [facility]08[facility]2014 History of Past illness Narrative* Problem Noted Date Diagnosed Date Resolved Date Thrush 05/30/2014 09/28/2016 Last Assessment & Plan: Patient noticed a whitish coat on her tongue the last 2 weeks, she came in today Because it is progressively getting worse and she thinks it is peeling off today. He is taking a probiotic , and thinks that since that time she has Noticed this. Fever 05/22/2014 09/28/2016 Last Assessment & Plan: She has been having fever on and off for the past week, it she has cheked it at home 99 to 101. Abdominal pain, right upper quadrant 04/24/2014 09/28/2016 Overview: She has been having abdominal pain 4 weeks, RUQ, hida scan showed 40 % activity GB was taken out, found to have inflammation Of the GB And calcification. She cannot tell if it was better. She got the CDiff after the clindamycin. She wasn't feeling right at all for the last 4 weeks. Following the surgery she had cdiff diarrhea and took flagyl which helped The diarrhea resolved, and the contrast she took for the CT scan made her get the diarrhea again and she Never has had a normal BOWEL movement since then 4 weeks a go. Last Assessment & Plan: She has been having abdominal pain 4 weeks, RUQ, hida scan showed 40 % activity GB was taken out, found to have inflammation Of the GB And calcification. She cannot tell if it was better. She got the CDiff after the clindamycin. She wasn't feeling right at all for the last 4 weeks. Following the surgery she had cdiff diarrhea and took flagyl which helped The diarrhea resolved, and the contrast she took for the CT scan made her get the diarrhea again and she Never has had a normal BOWEL movement since then 4 weeks a go. She is off work for the last 4 week. Today she has pain in the right side and the belly button. 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 Pain in joint, pelvic region and thigh 01/20/2008 09/28/2016 documented as of this encounter (statuses as of 08/14/2023) [facility]08[facility] History of Past illness Narrative* Problem Noted Date Diagnosed Date Resolved Date Thrush 05/30/2014 09/28/2016 Last Assessment & Plan: Patient noticed a whitish coat on her tongue the last 2 weeks, she came in today Because it is progressively getting worse and she thinks it is peeling off today. He is taking a probiotic , and thinks that since that time she has Noticed this. Fever 05/22/2014 09/28/2016 Last Assessment & Plan: She has been having fever on and off for the past week, it she has cheked it at home 99 to 101. Abdominal pain, right upper quadrant 04/24/2014 09/28/2016 Overview: She has been having abdominal pain 4 weeks, RUQ, hida scan showed 40 % activity GB was taken out, found to have inflammation Of the GB And calcification. She cannot tell if it was better. She got the CDiff after the clindamycin. She wasn't feeling right at all for the last 4 weeks. Following the surgery she had cdiff diarrhea and took flagyl which helped The diarrhea resolved, and the contrast she took for the CT scan made her get the diarrhea again and she Never has had a normal BOWEL movement since then 4 weeks a go. Last Assessment & Plan: She has been having abdominal pain 4 weeks, RUQ, hida scan showed 40 % activity GB was taken out, found to have inflammation Of the GB And calcification. She cannot tell if it was better. She got the CDiff after the clindamycin. She wasn't feeling right at all for the last 4 weeks. Following the surgery she had cdiff diarrhea and took flagyl which helped The diarrhea resolved, and the contrast she took for the CT scan made her get the diarrhea again and she Never has had a normal BOWEL movement since then 4 weeks a go. She is off work for the last 4 week. Today she has pain in the right side and the belly button. 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 Pain in joint, pelvic region and thigh 01/20/2008 09/28/2016 documented as of this encounter (statuses as of 08/14/2023) [facility]08[facility]2014 History of Past illness Narrative* Problem Noted Date Diagnosed Date Resolved Date Thrush 05/30/2014 09/28/2016 Last Assessment & Plan: Patient noticed a whitish coat on her tongue the last 2 weeks, she came in today Because it is progressively getting worse and she thinks it is peeling off today. He is taking a probiotic , and thinks that since that time she has Noticed this. Fever 05/22/2014 09/28/2016 Last Assessment & Plan: She has been having fever on and off for the past week, it she has cheked it at home 99 to 101. Abdominal pain, right upper quadrant 04/24/2014 09/28/2016 Overview: She has been having abdominal pain 4 weeks, RUQ, hida scan showed 40 % activity GB was taken out, found to have inflammation Of the GB And calcification. She cannot tell if it was better. She got the CDiff after the clindamycin. She wasn't feeling right at all for the last 4 weeks. Following the surgery she had cdiff diarrhea and took flagyl which helped The diarrhea resolved, and the contrast she took for the CT scan made her get the diarrhea again and she Never has had a normal BOWEL movement since then 4 weeks a go. Last Assessment & Plan: She has been having abdominal pain 4 weeks, RUQ, hida scan showed 40 % activity GB was taken out, found to have inflammation Of the GB And calcification. She cannot tell if it was better. She got the CDiff after the clindamycin. She wasn't feeling right at all for the last 4 weeks. Following the surgery she had cdiff diarrhea and took flagyl which helped The diarrhea resolved, and the contrast she took for the CT scan made her get the diarrhea again and she Never has had a normal BOWEL movement since then 4 weeks a go. She is off work for the last 4 week. Today she has pain in the right side and the belly button. 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 Pain in joint, pelvic region and thigh 01/20/2008 09/28/2016 documented as of this encounter (statuses as of 08/14/2023) [facility]08[facility] History of Past illness Narrative* Problem Noted Date Diagnosed Date Resolved Date Thrush 05/30/2014 09/28/2016 Last Assessment & Plan: Patient noticed a whitish coat on her tongue the last 2 weeks, she came in today Because it is progressively getting worse and she thinks it is peeling off today. He is taking a probiotic , and thinks that since that time she has Noticed this. Fever 05/22/2014 09/28/2016 Last Assessment & Plan: She has been having fever on and off for the past week, it she has cheked it at home 99 to 101. Abdominal pain, right upper quadrant 04/24/2014 09/28/2016 Overview: She has been having abdominal pain 4 weeks, RUQ, hida scan showed 40 % activity GB was taken out, found to have inflammation Of the GB And calcification. She cannot tell if it was better. She got the CDiff after the clindamycin. She wasn't feeling right at all for the last 4 weeks. Following the surgery she had cdiff diarrhea and took flagyl which helped The diarrhea resolved, and the contrast she took for the CT scan made her get the diarrhea again and she Never has had a normal BOWEL movement since then 4 weeks a go. Last Assessment & Plan: She has been having abdominal pain 4 weeks, RUQ, hida scan showed 40 % activity GB was taken out, found to have inflammation Of the GB And calcification. She cannot tell if it was better. She got the CDiff after the clindamycin. She wasn't feeling right at all for the last 4 weeks. Following the surgery she had cdiff diarrhea and took flagyl which helped The diarrhea resolved, and the contrast she took for the CT scan made her get the diarrhea again and she Never has had a normal BOWEL movement since then 4 weeks a go. She is off work for the last 4 week. Today she has pain in the right side and the belly button. 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 Pain in joint, pelvic region and thigh 01/20/2008 09/28/2016 documented as of this encounter (statuses as of 08/19/2023) [facility] History of Past illness Narrative* Problem Noted Date Diagnosed Date Resolved Date Thrush 05/30/2014 09/28/2016 Last Assessment & Plan: Patient noticed a whitish coat on her tongue the last 2 weeks, she came in today Because it is progressively getting worse and she thinks it is peeling off today. He is taking a probiotic , and thinks that since that time she has Noticed this. Fever 05/22/2014 09/28/2016 Last Assessment & Plan: She has been having fever on and off for the past week, it she has cheked it at home 99 to 101. Abdominal pain, right upper quadrant 04/24/2014 09/28/2016 Overview: She has been having abdominal pain 4 weeks, RUQ, hida scan showed 40 % activity GB was taken out, found to have inflammation Of the GB And calcification. She cannot tell if it was better. She got the CDiff after the clindamycin. She wasn't feeling right at all for the last 4 weeks. Following the surgery she had cdiff diarrhea and took flagyl which helped The diarrhea resolved, and the contrast she took for the CT scan made her get the diarrhea again and she Never has had a normal BOWEL movement since then 4 weeks a go. Last Assessment & Plan: She has been having abdominal pain 4 weeks, RUQ, hida scan showed 40 % activity GB was taken out, found to have inflammation Of the GB And calcification. She cannot tell if it was better. She got the CDiff after the clindamycin. She wasn't feeling right at all for the last 4 weeks. Following the surgery she had cdiff diarrhea and took flagyl which helped The diarrhea resolved, and the contrast she took for the CT scan made her get the diarrhea again and she Never has had a normal BOWEL movement since then 4 weeks a go. She is off work for the last 4 week. Today she has pain in the right side and the belly button. 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 Pain in joint, pelvic region and thigh 01/20/2008 09/28/2016 documented as of this encounter (statuses as of 12/30/2023) [facility] History of Past illness Narrative* Problem Noted Date Diagnosed Date Resolved Date Thrush 05/30/2014 09/28/2016 Last Assessment & Plan: Patient noticed a whitish coat on her tongue the last 2 weeks, she came in today Because it is progressively getting worse and she thinks it is peeling off today. He is taking a probiotic , and thinks that since that time she has Noticed this. Fever 05/22/2014 09/28/2016 Last Assessment & Plan: She has been having fever on and off for the past week, it she has cheked it at home 99 to 101. Abdominal pain, right upper quadrant 04/24/2014 09/28/2016 Overview: She has been having abdominal pain 4 weeks, RUQ, hida scan showed 40 % activity GB was taken out, found to have inflammation Of the GB And calcification. She cannot tell if it was better. She got the CDiff after the clindamycin. She wasn't feeling right at all for the last 4 weeks. Following the surgery she had cdiff diarrhea and took flagyl which helped The diarrhea resolved, and the contrast she took for the CT scan made her get the diarrhea again and she Never has had a normal BOWEL movement since then 4 weeks a go. Last Assessment & Plan: She has been having abdominal pain 4 weeks, RUQ, hida scan showed 40 % activity GB was taken out, found to have inflammation Of the GB And calcification. She cannot tell if it was better. She got the CDiff after the clindamycin. She wasn't feeling right at all for the last 4 weeks. Following the surgery she had cdiff diarrhea and took flagyl which helped The diarrhea resolved, and the contrast she took for the CT scan made her get the diarrhea again and she Never has had a normal BOWEL movement since then 4 weeks a go. She is off work for the last 4 week. Today she has pain in the right side and the belly button. 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 Pain in joint, pelvic region and thigh 01/20/2008 09/28/2016 documented as of this encounter (statuses as of 01/02/2024) [facility]08-21-[facility] History of Past illness Narrative* Problem Noted Date Diagnosed Date Resolved Date Thrush 05/30/2014 09/28/2016 Last Assessment & Plan: Patient noticed a whitish coat on her tongue the last 2 weeks, she came in today Because it is progressively getting worse and she thinks it is peeling off today. He is taking a probiotic , and thinks that since that time she has Noticed this. Fever 05/22/2014 09/28/2016 Last Assessment & Plan: She has been having fever on and off for the past week, it she has cheked it at home 99 to 101. Abdominal pain, right upper quadrant 04/24/2014 09/28/2016 Overview: She has been having abdominal pain 4 weeks, RUQ, hida scan showed 40 % activity GB was taken out, found to have inflammation Of the GB And calcification. She cannot tell if it was better. She got the CDiff after the clindamycin. She wasn't feeling right at all for the last 4 weeks. Following the surgery she had cdiff diarrhea and took flagyl which helped The diarrhea resolved, and the contrast she took for the CT scan made her get the diarrhea again and she Never has had a normal BOWEL movement since then 4 weeks a go. Last Assessment & Plan: She has been having abdominal pain 4 weeks, RUQ, hida scan showed 40 % activity GB was taken out, found to have inflammation Of the GB And calcification. She cannot tell if it was better. She got the CDiff after the clindamycin. She wasn't feeling right at all for the last 4 weeks. Following the surgery she had cdiff diarrhea and took flagyl which helped The diarrhea resolved, and the contrast she took for the CT scan made her get the diarrhea again and she Never has had a normal BOWEL movement since then 4 weeks a go. She is off work for the last 4 week. Today she has pain in the right side and the belly button. 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 Pain in joint, pelvic region and thigh 01/20/2008 09/28/2016 documented as of this encounter (statuses as of 01/02/2024) [facility]08[facility] History of Past illness Narrative* Problem Noted Date Diagnosed Date Resolved Date Thrush 05/30/2014 09/28/2016 Last Assessment & Plan: Patient noticed a whitish coat on her tongue the last 2 weeks, she came in today Because it is progressively getting worse and she thinks it is peeling off today. He is taking a probiotic , and thinks that since that time she has Noticed this. Fever 05/22/2014 09/28/2016 Last Assessment & Plan: She has been having fever on and off for the past week, it she has cheked it at home 99 to 101. Abdominal pain, right upper quadrant 04/24/2014 09/28/2016 Overview: She has been having abdominal pain 4 weeks, RUQ, hida scan showed 40 % activity GB was taken out, found to have inflammation Of the GB And calcification. She cannot tell if it was better. She got the CDiff after the clindamycin. She wasn't feeling right at all for the last 4 weeks. Following the surgery she had cdiff diarrhea and took flagyl which helped The diarrhea resolved, and the contrast she took for the CT scan made her get the diarrhea again and she Never has had a normal BOWEL movement since then 4 weeks a go. Last Assessment & Plan: She has been having abdominal pain 4 weeks, RUQ, hida scan showed 40 % activity GB was taken out, found to have inflammation Of the GB And calcification. She cannot tell if it was better. She got the CDiff after the clindamycin. She wasn't feeling right at all for the last 4 weeks. Following the surgery she had cdiff diarrhea and took flagyl which helped The diarrhea resolved, and the contrast she took for the CT scan made her get the diarrhea again and she Never has had a normal BOWEL movement since then 4 weeks a go. She is off work for the last 4 week. Today she has pain in the right side and the belly button. 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 Lieberman's esophagus Gastroesophageal reflux disease, unspecified whether esophagitis present Diarrhea, unspecified type Blood in stool Bloating Flatulence, eructation, and gas pain [facility] Diagnosis Encounter for screening mammogram for breast cancer [facility] Diagnosis Diarrhea, unspecified type Blood in stool Gastroesophageal reflux disease, unspecified whether esophagitis present 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 Lieberman's esophagus [facility]* Diagnosis Abdominal mass, RUQ (right upper quadrant)- Primary Abdominal or pelvic swelling, mass, or lump, right upper quadrant Abdominal pain, right upper quadrant Liver mass Unspecified disorder of liver Nausea and vomiting, intractability of vomiting not specified, unspecified vomiting type Abdominal pain, epigastric Hx of gastroesophageal reflux (GERD) Personal history of other diseases of digestive system documented in this encounter [facility] Work Phone: Evaluation note* Diagnosis Hospital discharge follow-up- Primary Other follow-up examination Vitamin D deficiency Unspecified vitamin D deficiency Diarrhea, unspecified type Vitamin B12 deficiency Other B-complex deficiencies Brain fog documented in this encounter [facility] note* Diagnosis Diarrhea, unspecified type documented in this encounter [facility] note* Diagnosis Essential hypertension Unspecified essential hypertension documented in this encounter [facility] note* Diagnosis Soft tissue mass- Primary Disorders of soft tissue, unspecified documented in this encounter [facility] note* Diagnosis COVID-19 virus infection- Primary documented in this encounter [facility] noteNo assessment information availableWUniversity [facility] Work Phone: Evaluation note* Diagnosis RUQ pain- Primary Abdominal pain, right upper quadrant Right flank pain Abdominal pain, unspecified site Diarrhea, unspecified type Nausea Nausea alone Chills Chills (without fever) documented in this encounter [facility] note* Diagnosis Microvascular angina (HCC)- Primary Nonsustained ventricular tachycardia Paroxysmal ventricular tachycardia Primary hypertension Unspecified essential hypertension documented in this encounter [facility] note* Diagnosis Microvascular angina (HCC) documented in this encounter [facility] note* Diagnosis Finger pain, left- Primary Pain in limb documented in this encounter [facility] note* Diagnosis Intractable headache, unspecified chronicity pattern, unspecified headache type documented in this encounter [facility] note* Diagnosis Thunderclap headache- Primary Headache Orthostatic headache Headache Intractable migraine with aura without status migrainosus Migraine with aura, with intractable migraine, so stated, without mention of status migrainosus documented in this encounter [facility] note* Diagnosis Thunderclap headache- Primary Headache Stabbing headache Primary stabbing headache documented in this encounter [facility] note* Diagnosis Thunderclap headache- Primary Headache Acute non-recurrent sinusitis, unspecified location Intractable migraine with aura without status migrainosus Migraine with aura, with intractable migraine, so stated, without mention of status migrainosus [facility] Intractable migraine with aura with status migrainosus- Primary Migraine with aura, with intractable migraine, so stated, with status migrainosus [facility] Breast asymmetry- Primary Other specified disorders of breast [facility] Diagnosis Thunderclap headache Headache Intractable migraine with aura without status migrainosus Migraine with aura, with intractable migraine, so stated, without mention of status migrainosus [facility] Diagnosis Thunderclap headache Headache Intractable migraine with aura without status migrainosus Migraine with aura, with intractable migraine, so stated, without mention of status migrainosus [facility] Diagnosis Injury of left knee, initial encounter- Primary [facility] Diagnosis Postural dizziness- Primary Dizziness and giddiness Pulsatile tinnitus Unspecified tinnitus Diarrhea, unspecified type Elevated liver enzymes Other nonspecific abnormal serum enzyme levels Abnormal RBC Other abnormality of red blood cells [facility]* Diagnosis Leukocytosis, unspecified type- Primary Low folate [facility]* Diagnosis Encounter for screening mammogram for malignant neoplasm of breast Other screening mammogram [facility] Diagnosis Breast asymmetry Other specified disorders of breast [facility] Diagnosis Low folate [facility]* Diagnosis Thunderclap headache Headache Intractable migraine with aura without status migrainosus Migraine with aura, with intractable migraine, so stated, without mention of status migrainosus [facility] Diagnosis Microvascular angina (HCC)- Primary Nonsustained ventricular tachycardia (HCC) Paroxysmal ventricular tachycardia Primary hypertension Unspecified essential hypertension Tobacco abuse Tobacco use disorder [facility] Diagnosis Encounter for screening mammogram for breast cancer [facility] Diagnosis Insomnia- Primary Insomnia, unspecified Finger pain, left Pain in limb documented in this encounter [facility] note* Diagnosis Insomnia- Primary Insomnia, unspecified Muscle weakness Muscle weakness (generalized) documented in this encounter [facility] note* Diagnosis Migraine without status migrainosus, not intractable, unspecified migraine type- Primary documented in this encounter [facility] note* Diagnosis Insomnia- Primary Insomnia, unspecified Acute cough- Primary documented in this encounter [facility] note* Diagnosis Insomnia- Primary Insomnia, unspecified Bronchitis- Primary Bronchitis, not specified as acute or chronic Acute cough documented in this encounter [facility] note* Diagnosis Insomnia- Primary Insomnia, unspecified Acute cough documented in this encounter [facility] note* Diagnosis Insomnia- Primary Insomnia, unspecified Acute cough- Primary documented in this encounter [facility] note* Diagnosis Insomnia- Primary Insomnia, unspecified URI, acute- Primary Acute upper respiratory infections of unspecified site Exposure to influenza Contact with or exposure to other viral diseases documented in this encounter [facility] note* Diagnosis Insomnia- Primary Insomnia, unspecified Viral gastroenteritis- Primary Intestinal infection due to other organism, not elsewhere classified Encounter to obtain excuse from work documented in this encounter [facility] note* Diagnosis Insomnia- Primary Insomnia, unspecified Encounter for screening mammogram for breast cancer documented in this encounter [facility] note* Diagnosis Insomnia- Primary Insomnia, unspecified Hypertension Unspecified essential hypertension documented in this encounter [facility] note* Diagnosis Insomnia- Primary Insomnia, unspecified Annual physical exam- Primary Routine general medical examination at a health care facility Migraine with aura and without status migrainosus, not intractable Migraine with aura, without mention of intractable migraine without mention of status migrainosus PVC (premature ventricular contraction) Other premature beats Sweating abnormality Other specified disorder of sweat glands Hirsutism documented in this encounter [facility] Discharge instructions* Attachments The following attachments cannot be sent through Care Everywhere. * Migraines Discharge Instructions (Bhutanese) * Lumbar Puncture Discharge Instructions (Bhutanese) [facility] Outpatient Procedure (Routine) - Authorized Specialty Diagnoses / Procedures Referred By Isabela t Referred To Contact [facility] Diagnoses Gastroesophageal reflux disease, unspecified whether esophagitis present 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 Procedures EGD DIAGNOSTIC ESOPHAGOGASTRODUODENOSC OPY TRANSORAL DIAGNOSTIC Dayanara Reyes, HYDROELECTRIC PLANT MAINTAINER.ECOMMERCE MANAGER [address] [place] [address] [facility] [address] [address] Referral ID Status Reason Start Date Expiration Date Visits Requested Visits Authorized [id number] Authorized Auto-Generat ed Referral 01/12/2022 01/12/2023 1 1 * Outpatient Procedure (Routine) - Authorized Specialty Diagnoses / Procedures Referred By Contac t Referred To Contact [facility] Diagnoses Diarrhea, unspecified type Blood in stool Procedures COLONOSCOPY DIAGNOSTIC COLONOSCOPY FLX DX W/COLLJ SPEC WHEN PFRMD Dayanara Reyes APRN.ECOMMERCE MANAGER [address] [place] [id number] [address] Referral ID Status Reason Start Date Expiration Date Visits Requested Visits Authorized [id number] Authorized Auto-Generat ed Referral 01/12/2022 01/12/2023 1 1 [facility] for referral (narrative)* Outpatient Procedure (Routine) - Closed Specialty Diagnoses / Procedures Referred By Contac t Referred To Contact [facility] Diagnoses Gastroesophageal reflux disease, unspecified whether esophagitis present 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 Procedures EGD DIAGNOSTIC ESOPHAGOGASTRODUODENOSC OPY TRANSORAL DIAGNOSTIC Dayanara Reyes APRN.ECOMMERCE MANAGER [address] [place] [address] [facility] [address] [address] Referral ID Status Reason Start Date Expiration Date V isits Requested Visits Authorized [id number] Closed Auto-Generate d Referral 01/12/2022 01/12/2023 1 1 * Outpatient Procedure (Routine) - Closed Specialty Diagnoses / Procedures Referred By Contac t Referred To Contact [facility] Diagnoses Diarrhea, unspecified type Blood in stool Procedures COLONOSCOPY DIAGNOSTIC COLONOSCOPY FLX DX W/COLLJ SPEC WHEN PFRMD Dayanara Reyes APRN.ECOMMERCE MANAGER [address] [place] [address] [facility] [place] [address] [place] [address] Referral ID Status Reason Start Date Expiration Date V isits Requested Visits Authorized [id number] Closed Auto-Generate d Referral 01/12/2022 01/12/2023 1 1 [facility] for referral (narrative)* Diagnostic Procedure Only (Routine) - Pending Review Specialty Diagnoses / Procedures Referred By Contac t Referred To Contact [facility] Diagnoses Soft tissue mass Procedures US CHEST WALL/SOFT TISSUE US CHEST REAL TIME W/IMAGE DOCUMENTATION Carole Moore APRN.ECOMMERCE MANAGER [address] [place] [address] [facility] Referral ID Status Reason Start Date Expiration Date Visits Requested Visits Authorized [id number] Pending Review Auto-Generat ed Referral 06/30/2022 07/30/2023 1 1 * Diagnostic Procedure Only (Routine) - Pending Review Specialty Diagnoses / Procedures Referred By Contac t Referred To Contact [facility] Diagnoses Soft tissue mass Procedures US SOFT TISSUE ABDOMEN US ABDOMINAL REAL TIME W/IMAGE LIMITED Carole Moore APRN.ECOMMERCE MANAGER [address] [place] [address] [facility] Referral ID Status Reason Start Date Expiration Date Visits Requested Visits Authorized [id number] Pending Review Auto-Generat ed Referral 06/30/2022 07/30/2023 1 1 [facility] for referral (narrative)* Outpatient Procedure (Routine) - Closed Specialty Diagnoses / Procedures Referred By Contac t Referred To [facility] Diagnoses Essential hypertension Procedures ECG COMPLETE ECG ROUTINE ECG W/LEAST 12 LDS W/I&R Jose Hayes MD [address] [place] [address] [facility] [place] [address] [place] [address] Referral ID Status Reason Start Date Expiration Date V isits Requested Visits Authorized [id number] Closed Auto-Generate d Referral 10/15/2022 10/15/2023 1 1 [facility] for referral (narrative)* Diagnostic Procedure Only (Urgent) - Closed Specialty Diagnoses / Procedures Referred By Contac t Referred To Contact [facility] Diagnoses Finger pain, left Procedures XR DIGIT GENERAL 3V FRONTAL/LAT/OBL LEFT RADEX FINGR MINIMUM 2 VIEWS Perry Ballard PA-C [address] [place] [address] [facility] Referral ID Status Reason Start Date Expiration Date V isits Requested Visits Authorized [id number] Closed Auto-Generate d Referral 11/29/2022 12/29/2023 1 1 [facility] for referral (narrative)* Diagnostic Procedure Only (Routine) - Pending Review Specialty Diagnoses / Procedures Referred By Contac t Referred To Contact [facility] Diagnoses Breast asymmetry Procedures ALMA DIAGNOSTIC RIGHT DIAGNOSTIC MAMMOGRAPHY COMPUTER-AIDED DETCJ UNI Leanna Patel APRN.ECOMMERCE MANAGER [address] [place] [address] [facility] [address] [place] [address] Referral ID Status Reason Start Date Expiration Date Visits Requested Visits Authorized [id number] Pending Review Auto-Generat ed Referral 02/11/2023 03/12/2024 1 1 * Diagnostic Procedure Only (Routine) - Pending Review Specialty Diagnoses / Procedures Referred By Contac t Referred To Contact [facility] Diagnoses Breast asymmetry Procedures US BREAST LTD RIGHT US BREAST UNI REAL TIME WITH IMAGE LIMITED Leanna Patel APRN.ECOMMERCE MANAGER [address] [place] [address] [facility] [address] [place] [address] Referral ID Status Reason Start Date Expiration Date Visits Requested Visits Authorized [id number] Pending Review Auto-Generat ed Referral 02/11/2023 03/12/2024 1 1 [facility] for referral (narrative)* Diagnostic Procedure Only (Urgent) - Closed Specialty Diagnoses / Procedures Referred By Contac t Referred To Contact X[facility] IMAGING Diagnoses Injury of left knee, initial encounter Procedures XR KNEE GENERAL 4V AP BOTH/PA BOTH/LAT/MERC LEFT RADIOLOGIC EXAM KNEE COMPLETE 4/MORE VIEWS Albina Padilla PA-C [address] [place] [address] [facility] Referral ID Status Reason Start Date Expiration Date V isits Requested Visits Authorized [id number] Closed Auto-Generate d Referral 04/11/2023 05/10/2024 1 1 [facility] for referral (narrative)* Outpatient Procedure (Routine) - Closed Specialty Diagnoses / Procedures Referred By Contac t Referred [facility] Diagnoses Pulsatile tinnitus Procedures ECG COMPLETE ECG ROUTINE ECG W/LEAST 12 LDS W/I&R Bee Fairchild APRN.CNP [address] [place] [address] [facility] [place] [address] [place] [address] Referral ID Status Reason Start Date Expiration Date V isits Requested Visits Authorized [id number] Closed Auto-Generate d Referral 04/18/2023 04/17/2024 1 1 [facility] for referral (narrative)* Diagnostic Procedure Only (Routine) - Closed Specialty Diagnoses / Procedures Referred By Contac t Referred To Contact [facility] Diagnoses Encounter for screening mammogram for malignant neoplasm of breast Procedures ALMA SCREENING SCREENING MAMMOGRAPHY BI 2-VIEW BREAST INC CAD Yamileth Tafoya APRN.CNP [address] [place] [address] [facility] [address] [place] [address] Referral ID Status Reason Start Date Expiration Date V isits Requested Visits Authorized [id number] Closed Auto-Generate d Referral 12/30/2022 01/29/2024 1 1 [facility] for referral (narrative)* Diagnostic Procedure Only (Routine) - Pending Review Specialty Diagnoses / Procedures Referred By Contac t Referred To Contact [facility] Diagnoses Encounter for screening mammogram for breast cancer Procedures AMLA SCREENING SCREENING MAMMOGRAPHY BI 2-VIEW BREAST INC Nicky Hunt MD [address] [place] [address] [facility] [address] [place] [address] Referral ID Status Reason Start Date Expiration Date Visits Requested Visits Authorized [id number] Pending Review Auto-Generat ed Referral 03/14/2024 04/13/2025 1 1 T [facility] for referral (narrative)* Diagnostic Procedure Only (Urgent) - Closed Specialty Diagnoses / Procedures Referred By Contac t Referred To Contact [facility] IMAG[facility] Diagnoses Finger pain, left Procedures XR DIGIT GENERAL 3V FRONTAL/LAT/OBL LEFT RADEX FINGR MINIMUM 2 VIEWS Perry Ballard PA-C [address] [place] [address] [place] [address] Referral ID Status Reason Start Date Expiration Date V isits Requested Visits Authorized [id number] Closed Auto-Generate d Referral 11/29/2022 12/29/2023 1 1 [facility] for referral (narrative)* Diagnostic Procedure Only (Routine) - Closed Specialty Diagnoses / Procedures Referred By Contac t Referred To Contact [facility] Diagnoses Muscle weakness Procedures XR LUMBAR GENERAL 3V AP/LAT/L5-S1 X-RAY L-S SPINE AP/LATERAL Nicky Knight MD [address] [place] [address] [place] [address] Referral ID Status Reason Start Date Expiration Date V isits Requested Visits Authorized [id number] Closed Auto-Generate d Referral 08/11/2021 09/10/2022 1 1 [facility] for visit Narrative* Outpatient Procedure (Routine) - Closed Specialty Diagnoses / Procedures Referred By Isabela t Referred To Contact [facility] Diagnoses Gastroesophageal reflux disease, unspecified whether esophagitis present 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 Procedures EGD DIAGNOSTIC ESOPHAGOGASTRODUODENOSC OPY TRANSORAL DIAGNOSTIC Dayanara Reyes, HYDROELECTRIC PLANT MAINTAINER.ECOMMERCE MANAGER [address] [place] [address] [facility] [place] [address] [place] [address] Referral ID Status Reason Start Date Expiration Date V isits Requested Visits Authorized [id number] Closed Auto-Generate d Referral 01/12/2022 01/12/2023 1 1 [facility] for visit Narrative* Diagnostic Procedure Only (Routine) - Closed Specialty Diagnoses / Procedures Referred By Isabela t Referred To Contact [facility] Diagnoses Encounter for screening mammogram for malignant neoplasm of breast Procedures ALMA SCREENING SCREENING MAMMOGRAPHY BI 2-VIEW BREAST INC Yamileth Sanchez, HYDROELECTRIC PLANT MAINTAINER.ECOMMERCE MANAGER [address] [place] [address] [facility] [address] [place] [address] Referral ID Status Reason Start Date Expiration Date V isits Requested Visits Authorized [id number] Closed Auto-Generate d Referral 12/30/2022 01/29/2024 1 1 [facility] for visit Narrative* Diagnostic Procedure Only (Routine) - Closed Specialty Diagnoses / Procedures Referred By Contac t Referred To Contact [facility] Diagnoses Breast asymmetry Procedures ALMA DIAGNOSTIC RIGHT DIAGNOSTIC MAMMOGRAPHY COMPUTER-AIDED DETCJ UNI Leanna Patel, HYDROELECTRIC PLANT MAINTAINER.ECOMMERCE MANAGER [address] [place] [address] [facility] [address] [place] [address] Referral ID Status Reason Start Date Expiration Date V isits Requested Visits Authorized [id number] Closed Auto-Generate d Referral 02/11/2023 03/12/2024 1 1 [facility] for visit Narrative* Diagnostic Procedure Only (Urgent) - Closed Specialty Diagnoses / Procedures Referred By Contac t Referred To Contact XR IMAGING Diagnoses Injury of left knee, initial encounter Procedures XR KNEE GENERAL 4V AP BOTH/PA BOTH/LAT/MERC LEFT RADIOLOGIC EXAM KNEE COMPLETE 4/MORE VIEWS Albina Padilla, PA-C [address] [place] [address] [place] [address] Referral ID Status Reason Start Date Expiration Date V isits Requested Visits Authorized [id number] Closed Auto-Generate d Referral 04/11/2023 05/10/2024 1 1 [facility] for visit Narrative* Diagnostic Procedure Only (Urgent) - Closed Specialty Diagnoses / Procedures Referred By Contac t Referred To Contact XR IMAGING Diagnoses Finger pain, left Procedures XR DIGIT GENERAL 3V FRONTAL/LAT/OBL LEFT RADEX FINGR MINIMUM 2 VIEWS Perry Ballard, PA-C [address] [place] [address] [place] [address] Referral ID Status Reason Start Date Expiration Date V isits Requested Visits Authorized [id number] Closed Auto-Generate d Referral 11/29/2022 12/29/2023 1 1 [facility] for visit Narrative* Diagnostic Procedure Only (Routine) - Closed Specialty Diagnoses / Procedures Referred By Contac t Referred To Contact XR IMAGING Diagnoses Muscle weakness Procedures XR LUMBAR GENERAL 3V AP/LAT/L5-S1 X-RAY L-S SPINE AP/LATERAL Nicky Knight MD [address] [place] [address] [place] [address] Referral ID Status Reason Start Date Expiration Date V isits Requested Visits Authorized [id number] Closed Auto-Generate d Referral 08/11/2021 09/10/2022 1 1 [facility] Summary Purpose Family History No Family History Records Found Relationship Condition Age at Onset Recorded Date/T venita Unknown Family History?- Unknown October 11:04am Family History?- Unknown October 11:04am Relationship Condition Age at Onset Recorded Date/T venita Unknown Family History?- Unknown October 12:04pm Family History?- Unknown October 12:04pm Advance Directives No Advanced Directives Records FoundDocuments on File Type Date Recorded Patient Surveyor Hydrographic Expl anation Advance Directive(s) 10/20/2018 2:48 PM Date Activated Date Inactivated Comments 10/27/2019 9:31 AM 10/27/2019 4:47 PM Question Answer Comments Full Code Order Discussed With: Patient Date Activated Date Inactivated Comments 11/02/2018 11:34 PM 11/04/2018 7:59 PM Question Answer Comments Full Code Order Discussed With: Patient Latest Code Status on File Code Status Date Activated Date Inactivated Comments Full Code 10/27/2019 9:31 AM 10/27/2019 4:47 PM Full Code Order Discussed With: Patient Full Code 11/02/2018 11:34 PM 11/04/2018 7:59 PM Documents on File Type Date Recorded Patient Surveyor Hydrographic Expl anation Advance Directive(s) 09/11/2021 5:42 PM Advance Directive(s) 10/26/2019 8:34 PM Advance Directive(s) 08/17/2019 1:12 PM Advance Directive(s) 10/20/2018 2:48 PM Advance Directive(s) 10/19/2018 8:09 AM provided 10-19-19 to be vetted Advance Directive(s) 10/12/2018 2:21 PM Advance Directive(s) 10/01/2016 10:39 AM Documents on File Type Date Recorded Patient Surveyor Hydrographic Expl anation Advance Directive(s) 09/11/2021 5:42 PM Advance Directive(s) 10/26/2019 8:34 PM Advance Directive(s) 08/17/2019 1:12 PM Advance Directive(s) 10/20/2018 2:48 PM Advance Directive(s) 10/19/2018 8:09 AM provided 10-19-19 to be vetted Advance Directive(s) 10/12/2018 2:21 PM Advance Directive(s) 10/01/2016 10:39 AM Latest Code Status on File Code Status Date Activated Date Inactivated Comments Full Code 10/27/2019 9:31 AM 10/27/2019 4:47 PM Full Code 11/02/2018 11:34 PM 11/04/2018 7:59 PM Documents on File Type Date Recorded Patient Surveyor Hydrographic Expl anation Advance Directive(s) 03/15/2022 7:46 AM Advance Directive(s) 09/11/2021 5:42 PM Advance Directive(s) 10/26/2019 8:34 PM Advance Directive(s) 08/17/2019 1:12 PM Advance Directive(s) 10/20/2018 2:48 PM Advance Directive(s) 10/19/2018 8:09 AM provided -10-19 to be vetted Advance Directive(s) 10/12/2018 2:21 PM Advance Directive(s) 10/01/2016 10:39 AM Documents on File Type Date Recorded Patient Surveyor Hydrographic Expl anation Advance Directive(s) 03/15/2022 7:46 AM Advance Directive(s) 09/11/2021 5:42 PM Advance Directive(s) 10/26/2019 8:34 PM Advance Directive(s) 08/17/2019 1:12 PM Advance Directive(s) 10/20/2018 2:48 PM Advance Directive(s) 10/19/2018 8:09 AM provided -10-19 to be vetted Advance Directive(s) 10/12/2018 2:21 PM Advance Directive(s) 10/01/2016 10:39 AM Documents on File Type Date Recorded Patient Surveyor Hydrographic Expl anation ACP-Advance Directive ACP-Power of Gas Engine Repairer Latest Code Status on File Code Status Date Activated Date Inactivated Comments Full Code 03/18/2022 2:09 AM Full Code 09/04/2017 1:11 PM 09/06/2017 12:10 PM Documents on File Type Date Recorded Patient Surveyor Hydrographic Expl anation Advance Directive(s) 10/20/2018 2:48 PM Advance Directive Response Recorded Date/ Time Advance Directives No June 8:34pm Living Will No October 06, 2 022 6:54pm Power of Gas Engine Repairer No October 06, 2022 6:54pm Advance Directive Response Recorded Date/ Time Name of Medical Power of Gas Engine Repairer LISETTE FOLEY- December 19, 2022 4:54pm Name of Medical Power of Gas Engine Repairer December 22, 2022 3:22pm Advance Directives No June 9:34pm Living Will Yes December 22, 2022 3:22pm Power of Gas Engine Repairer Yes December 22 3:22pm Advance Directive Response Recorded Date/ Time Name of Medical Power of Gas Engine Repairer LISETTE FOLEY- December 19, 2022 4:54pm Name of Medical Power of Gas Engine Repairer December 22, 2022 3:22pm Advance Directives No June 9:34pm Living Will No 2023 5:08pm Power of Gas Engine Repairer No January 04 5:08pm Latest Code Status on File Code Status Date Activated Date Inactivated Comments Full Code 10/27/2019 9:31 AM 10/27/2019 4:47 PM Question Answer Comments Full Code Order Discussed With: Patient Code Status History Code Status Date Activated Date Inactivated Comments Full Code 11/02/2018 11:34 PM 11/04/2018 7:59 PM Question Answer Comments Full Code Order Discussed With: Patient Latest Code Status on File Code Status Date Activated Date Inactivated Comments Full Code 10/27/2019 9:31 AM 10/27/2019 4:47 PM Question Answer Comments Full Code Order Discussed With: Patient Code Status History Code Status Date Activated Date Inactivated Comments Full Code 11/02/2018 11:34 PM 11/04/2018 7:59 PM Question Answer Comments Full Code Order Discussed With: Patient Advance Directive Response Recorded Date/ Time Advance Directives No June 9:34pm Living Will No April 25, 2023 1:42pm Power of Gas Engine Repairer No April 25 1:42pm Date Activated Date Inactivated Comments 10/27/2019 9:31 AM 10/27/2019 4:47 PM Question Answer Comments Full Code Order Discussed With: Patient Date Activated Date Inactivated Comments 11/02/2018 11:34 PM 11/04/2018 7:59 PM Question Answer Comments Full Code Order Discussed With: Patient Reason for Referral Specialty Diagnoses / Procedures Referred By Isabela miles Referred To Contact Gastroenterology Diagnoses Diarrhea, unspecified type Procedures CONSULT TO GASTROENTEROLOGY OFFICE/OUTPATIENT [facility]3] 60-74 MINUTES Nicky Knight MD [address] [place] [address] Referral ID Status Reason Start Date Expiration Date Visits Requested Visits Authorized [id number] Authorized PCP Requested Referral 04/08/2022 04/08/2023 1 1 Specialty Diagnoses / Procedures Referred By Contac t Referred To Contact Neurology Diagnoses Intractable headache, unspecified chronicity pattern, unspecified headache type Procedures CONSULT TO NEUROLOGY OFFICE/OUTPATIENT [facility]3] 60-74 MINUTES Angelica Aviles PA-C [address] [place], [place] [id number] Referral ID Status Reason Start Date Expiration Date Visits Requested Visits Authorized [id number] Authorized PCP Requested Referral 2023 2024 1 1 Specialty Diagnoses / Procedures Referred By Contac t Referred To Contact Ent - Otolaryngology Diagnoses Acute non-recurrent sinusitis, unspecified location Thunderclap headache Intractable migraine with aura without status migrainosus Procedures CONSULT TO ENT OFFICE/OUTPATIENT [facility]3] 60-74 MINUTES Aide Haynes DO [address] [place] [address] Referral ID Status Reason Start Date Expiration Date Visits Requested Visits Authorized [id number] Authorized PCP Requested Referral 02/04/2023 02/04/2024 1 1 Specialty Diagnoses / Procedures Referred By Contac t Referred To Contact Diagnoses Thunderclap headache Intractable migraine with aura without status migrainosus Amos Smith, HYDROELECTRIC PLANT MAINTAINER.ECOMMERCE MANAGER [address] [place] [address] Referral ID Status Reason Start Date Expiration Date V isits Requested Visits Authorized [id number] Pending Review 1 1 Chief Complaint and Reason for Visit Chief Complaint right flank pain Chief Complaint right flank pain HEADACHE HEADACHE Headache Chief Complaint right flank pain HEADACHE HEADACHE Headache HEADACHE Chief Complaint HEADACHE CP Medications Administered Section Inactive Administered Medications - up to 3 most recent administrations Medication Order MAR Action Action Date Dose Rate Site betamethasone acetate-betamethasone sodium phosphate 12 mg injection (CELESTONE) 12 mg, OTHER, ONCE, 1 dose, On Tue01/07/23 at 1000, Protect From Light. Given 01/07/2023 10:00 AM EDT 12 mg Othe r BUPivacaine (PF) 0.25 % (2.5 mg/mL) 25 mg injection (SENSORCAINE MPF) 25 mg (10 mL), OTHER, ONCE, 1 dose, On 01/07/23 at 1000 Given 01/07/2023 10:00 AM EDT 25 mg Other Additional Source Comments INFORMATION SOURCE (unrecogn ized section and content) DATE CREATED AUTHOR 02/15/2019 [facility] DATE CREATED AUTHOR AUTHOR'S ORGANIZ ATION 06/04/2020 [facility] DATE CREATED AUTHOR AUTHOR'S ORGANIZ ATION 09/13/2021 [facility] DATE CREATED AUTHOR AUTHOR'S ORGANIZ ATION 03/18/2022 [facility] DATE CREATED AUTHOR AUTHOR'S ORGANIZ ATION 05/01/2022 [facility] DATE CREATED AUTHOR AUTHOR'S ORGANIZ ATION 12/24/2022 [facility] DATE CREATED AUTHOR AUTHOR'S ORGANIZ ATION 06/11/2023 [facility] DATE CREATED AUTHOR AUTHOR'S ORGANIZ ATION 12/12/2024 [facility] DATE CREATED AUTHOR AUTHOR'S ORGANIZ ATION 04/05/2025 [facility] Source Comments (unrecognize d section and content) In the event this informatio n is protected by the Federal Confidentiality of Alcohol and Drug Abuse Patient Records regulations: The Federal rules restrict any use of the information to criminally investigate or prosecute any alcohol or drug abuse patient.[facility] the event this information is protected by the Federal Confidentiality of Alcohol and Drug Abuse Patient Records regulations: The Federal rules restrict any use of the information to criminally investigate or prosecute any alcohol or drug abuse patient.[facility] CenterIn the event this information is protected by the Federal Confidentiality of Alcohol and Drug Abuse Patient Records regulations: The Federal rules restrict any use of the information to criminally investigate or prosecute any alcohol or drug abuse patient.[facility] CenterIn the event this information is protected by the Federal Confidentiality of Alcohol and Drug Abuse Patient Records regulations: The Federal rules restrict any use of the information to criminally investigate or prosecute any alcohol or drug abuse patient.[facility] CenterIn the event this information is protected by the Federal Confidentiality of Alcohol and Drug Abuse Patient Records regulations: The Federal rules restrict any use of the information to criminally investigate or prosecute any alcohol or drug abuse patient.[facility] CenterIn the event this information is protected by the Federal Confidentiality of Alcohol and Drug Abuse Patient Records regulations: The Federal rules restrict any use of the information to criminally investigate or prosecute any alcohol or drug abuse patient.[facility] CenterIn the event this information is protected by the Federal Confidentiality of Alcohol and Drug Abuse Patient Records regulations: The Federal rules restrict any use of the information to criminally investigate or prosecute any alcohol or drug abuse patient.[facility] CenterIn the event this information is protected by the Federal Confidentiality of Alcohol and Drug Abuse Patient Records regulations: The Federal rules restrict any use of the information to criminally investigate or prosecute any alcohol or drug abuse patient.[facility] CenterIn the event this information is protected by the Federal Confidentiality of Alcohol and Drug Abuse Patient Records regulations: The Federal rules restrict any use of the information to criminally investigate or prosecute any alcohol or drug abuse patient.[facility] CenterIn the event this information is protected by the Federal Confidentiality of Alcohol and Drug Abuse Patient Records regulations: The Federal rules restrict any use of the information to criminally investigate or prosecute any alcohol or drug abuse patient.[facility] CenterIn the event this information is protected by the Federal Confidentiality of Alcohol and Drug Abuse Patient Records regulations: The Federal rules restrict any use of the information to criminally investigate or prosecute any alcohol or drug abuse patient.[facility] CenterIn the event this information is protected by the Federal Confidentiality of Alcohol and Drug Abuse Patient Records regulations: The Federal rules restrict any use of the information to criminally investigate or prosecute any alcohol or drug abuse patient.[facility] CenterIn the event this information is protected by the Federal Confidentiality of Alcohol and Drug Abuse Patient Records regulations: The Federal rules restrict any use of the information to criminally investigate or prosecute any alcohol or drug abuse patient.[facility] CenterIn the event this information is protected by the Federal Confidentiality of Alcohol and Drug Abuse Patient Records regulations: The Federal rules restrict any use of the information to criminally investigate or prosecute any alcohol or drug abuse patient.[facility] CenterIn the event this information is protected by the Federal Confidentiality of Alcohol and Drug Abuse Patient Records regulations: The Federal rules restrict any use of the information to criminally investigate or prosecute any alcohol or drug abuse patient.[facility] CenterIn the event this information is protected by the Federal Confidentiality of Alcohol and Drug Abuse Patient Records regulations: The Federal rules restrict any use of the information to criminally investigate or prosecute any alcohol or drug abuse patient.[facility] CenterIn the event this information is protected by the Federal Confidentiality of Alcohol and Drug Abuse Patient Records regulations: The Federal rules restrict any use of the information to criminally investigate or prosecute any alcohol or drug abuse patient.[facility] CenterIn the event this information is protected by the Federal Confidentiality of Alcohol and Drug Abuse Patient Records regulations: The Federal rules restrict any use of the information to criminally investigate or prosecute any alcohol or drug abuse patient.[facility] CenterIn the event this information is protected by the Federal Confidentiality of Alcohol and Drug Abuse Patient Records regulations: The Federal rules restrict any use of the information to criminally investigate or prosecute any alcohol or drug abuse patient.[facility] CenterIn the event this information is protected by the Federal Confidentiality of Alcohol and Drug Abuse Patient Records regulations: The Federal rules restrict any use of the information to criminally investigate or prosecute any alcohol or drug abuse patient.[facility] CenterIn the event this information is protected by the Federal Confidentiality of Alcohol and Drug Abuse Patient Records regulations: The Federal rules restrict any use of the information to criminally investigate or prosecute any alcohol or drug abuse patient.[facility] CenterIn the event this information is protected by the Federal Confidentiality of Alcohol and Drug Abuse Patient Records regulations: The Federal rules restrict any use of the information to criminally investigate or prosecute any alcohol or drug abuse patient.[facility] CenterIn the event this information is protected by the Federal Confidentiality of Alcohol and Drug Abuse Patient Records regulations: The Federal rules restrict any use of the information to criminally investigate or prosecute any alcohol or drug abuse patient.[facility] CenterIn the event this information is protected by the Federal Confidentiality of Alcohol and Drug Abuse Patient Records regulations: The Federal rules restrict any use of the information to criminally investigate or prosecute any alcohol or drug abuse patient.[facility] CenterIn the event this information is protected by the Federal Confidentiality of Alcohol and Drug Abuse Patient Records regulations: The Federal rules restrict any use of the information to criminally investigate or prosecute any alcohol or drug abuse patient.[facility] CenterIn the event this information is protected by the Federal Confidentiality of Alcohol and Drug Abuse Patient Records regulations: The Federal rules restrict any use of the information to criminally investigate or prosecute any alcohol or drug abuse patient.[facility] CenterIn the event this information is protected by the Federal Confidentiality of Alcohol and Drug Abuse Patient Records regulations: The Federal rules restrict any use of the information to criminally investigate or prosecute any alcohol or drug abuse patient.[facility] CenterIn the event this information is protected by the Federal Confidentiality of Alcohol and Drug Abuse Patient Records regulations: The Federal rules restrict any use of the information to criminally investigate or prosecute any alcohol or drug abuse patient.[facility] CenterIn the event this information is protected by the Federal Confidentiality of Alcohol and Drug Abuse Patient Records regulations: The Federal rules restrict any use of the information to criminally investigate or prosecute any alcohol or drug abuse patient.[facility] CenterIn the event this information is protected by the Federal Confidentiality of Alcohol and Drug Abuse Patient Records regulations: The Federal rules restrict any use of the information to criminally investigate or prosecute any alcohol or drug abuse patient.[facility] CenterIn the event this information is protected by the Federal Confidentiality of Alcohol and Drug Abuse Patient Records regulations: The Federal rules restrict any use of the information to criminally investigate or prosecute any alcohol or drug abuse patient.[facility] CenterIn the event this information is protected by the Federal Confidentiality of Alcohol and Drug Abuse Patient Records regulations: The Federal rules restrict any use of the information to criminally investigate or prosecute any alcohol or drug abuse patient.[facility] CenterIn the event this information is protected by the Federal Confidentiality of Alcohol and Drug Abuse Patient Records regulations: The Federal rules restrict any use of the information to criminally investigate or prosecute any alcohol or drug abuse patient.[facility] CenterIn the event this information is protected by the Federal Confidentiality of Alcohol and Drug Abuse Patient Records regulations: The Federal rules restrict any use of the information to criminally investigate or prosecute any alcohol or drug abuse patient.[facility] CenterIn the event this information is protected by the Federal Confidentiality of Alcohol and Drug Abuse Patient Records regulations: The Federal rules restrict any use of the information to criminally investigate or prosecute any alcohol or drug abuse patient.[facility] CenterIn the event this information is protected by the Federal Confidentiality of Alcohol and Drug Abuse Patient Records regulations: The Federal rules restrict any use of the information to criminally investigate or prosecute any alcohol or drug abuse patient.[facility] CenterIn the event this information is protected by the Federal Confidentiality of Alcohol and Drug Abuse Patient Records regulations: The Federal rules restrict any use of the information to criminally investigate or prosecute any alcohol or drug abuse patient.[facility] CenterIn the event this information is protected by the Federal Confidentiality of Alcohol and Drug Abuse Patient Records regulations: The Federal rules restrict any use of the information to criminally investigate or prosecute any alcohol or drug abuse patient.[facility] CenterIn the event this information is protected by the Federal Confidentiality of Alcohol and Drug Abuse Patient Records regulations: The Federal rules restrict any use of the information to criminally investigate or prosecute any alcohol or drug abuse patient.[facility] CenterIn the event this information is protected by the Federal Confidentiality of Alcohol and Drug Abuse Patient Records regulations: The Federal rules restrict any use of the information to criminally investigate or prosecute any alcohol or drug abuse patient.[facility] CenterIn the event this information is protected by the Federal Confidentiality of Alcohol and Drug Abuse Patient Records regulations: The Federal rules restrict any use of the information to criminally investigate or prosecute any alcohol or drug abuse patient.[facility] CenterIn the event this information is protected by the Federal Confidentiality of Alcohol and Drug Abuse Patient Records regulations: The Federal rules restrict any use of the information to criminally investigate or prosecute any alcohol or drug abuse patient.[facility] CenterIn the event this information is protected by the Federal Confidentiality of Alcohol and Drug Abuse Patient Records regulations: The Federal rules restrict any use of the information to criminally investigate or prosecute any alcohol or drug abuse patient.[facility] CenterIn the event this information is protected by the Federal Confidentiality of Alcohol and Drug Abuse Patient Records regulations: The Federal rules restrict any use of the information to criminally investigate or prosecute any alcohol or drug abuse patient.[facility] CenterIn the event this information is protected by the Federal Confidentiality of Alcohol and Drug Abuse Patient Records regulations: The Federal rules restrict any use of the information to criminally investigate or prosecute any alcohol or drug abuse patient.[facility] CenterIn the event this information is protected by the Federal Confidentiality of Alcohol and Drug Abuse Patient Records regulations: The Federal rules restrict any use of the information to criminally investigate or prosecute any alcohol or drug abuse patient.[facility] CenterIn the event this information is protected by the Federal Confidentiality of Alcohol and Drug Abuse Patient Records regulations: The Federal rules restrict any use of the information to criminally investigate or prosecute any alcohol or drug abuse patient.[facility] CenterIn the event this information is protected by the Federal Confidentiality of Alcohol and Drug Abuse Patient Records regulations: The Federal rules restrict any use of the information to criminally investigate or prosecute any alcohol or drug abuse patient.[facility] ClinicIn the event this information is protected by the Federal Confidentiality of Alcohol and Drug Abuse Patient Records regulations: The Federal rules restrict any use of the information to criminally investigate or prosecute any alcohol or drug abuse patient.[facility] CenterIn the event this information is protected by the Federal Confidentiality of Alcohol and Drug Abuse Patient Records regulations: The Federal rules restrict any use of the information to criminally investigate or prosecute any alcohol or drug abuse patient.[facility] CenterIn the event this information is protected by the Federal Confidentiality of Alcohol and Drug Abuse Patient Records regulations: The Federal rules restrict any use of the information to criminally investigate or prosecute any alcohol or drug abuse patient.[facility] CenterIn the event this information is protected by the Federal Confidentiality of Alcohol and Drug Abuse Patient Records regulations: The Federal rules restrict any use of the information to criminally investigate or prosecute any alcohol or drug abuse patient.[facility] CenterIn the event this information is protected by the Federal Confidentiality of Alcohol and Drug Abuse Patient Records regulations: The Federal rules restrict any use of the information to criminally investigate or prosecute any alcohol or drug abuse patient.[facility] CenterIn the event this information is protected by the Federal Confidentiality of Alcohol and Drug Abuse Patient Records regulations: The Federal rules restrict any use of the information to criminally investigate or prosecute any alcohol or drug abuse patient.[facility] CenterIn the event this information is protected by the Federal Confidentiality of Alcohol and Drug Abuse Patient Records regulations: The Federal rules restrict any use of the information to criminally investigate or prosecute any alcohol or drug abuse patient.[facility] CenterIn the event this information is protected by the Federal Confidentiality of Alcohol and Drug Abuse Patient Records regulations: The Federal rules restrict any use of the information to criminally investigate or prosecute any alcohol or drug abuse patient.[facility] CenterIn the event this information is protected by the Federal Confidentiality of Alcohol and Drug Abuse Patient Records regulations: The Federal rules restrict any use of the information to criminally investigate or prosecute any alcohol or drug abuse patient.[facility] CenterIn the event this information is protected by the Federal Confidentiality of Alcohol and Drug Abuse Patient Records regulations: The Federal rules restrict any use of the information to criminally investigate or prosecute any alcohol or drug abuse patient.[facility] CenterIn the event this information is protected by the Federal Confidentiality of Alcohol and Drug Abuse Patient Records regulations: The Federal rules restrict any use of the information to criminally investigate or prosecute any alcohol or drug abuse patient.[facility] CenterIn the event this information is protected by the Federal Confidentiality of Alcohol and Drug Abuse Patient Records regulations: The Federal rules restrict any use of the information to criminally investigate or prosecute any alcohol or drug abuse patient.[facility] CenterIn the event this information is protected by the Federal Confidentiality of Alcohol and Drug Abuse Patient Records regulations: The Federal rules restrict any use of the information to criminally investigate or prosecute any alcohol or drug abuse patient.[facility] CenterIn the event this information is protected by the Federal Confidentiality of Alcohol and Drug Abuse Patient Records regulations: The Federal rules restrict any use of the information to criminally investigate or prosecute any alcohol or drug abuse patient.[facility] CenterIn the event this information is protected by the Federal Confidentiality of Alcohol and Drug Abuse Patient Records regulations: The Federal rules restrict any use of the information to criminally investigate or prosecute any alcohol or drug abuse patient.[facility] CenterIn the event this information is protected by the Federal Confidentiality of Alcohol and Drug Abuse Patient Records regulations: The Federal rules restrict any use of the information to criminally investigate or prosecute any alcohol or drug abuse patient.[facility] CenterIn the event this information is protected by the Federal Confidentiality of Alcohol and Drug Abuse Patient Records regulations: The Federal rules restrict any use of the information to criminally investigate or prosecute any alcohol or drug abuse patient.[facility] CenterIn the event this information is protected by the Federal Confidentiality of Alcohol and Drug Abuse Patient Records regulations: The Federal rules restrict any use of the information to criminally investigate or prosecute any alcohol or drug abuse patient.[facility] CenterIn the event this information is protected by the Federal Confidentiality of Alcohol and Drug Abuse Patient Records regulations: The Federal rules restrict any use of the information to criminally investigate or prosecute any alcohol or drug abuse patient.[facility] CenterIn the event this information is protected by the Federal Confidentiality of Alcohol and Drug Abuse Patient Records regulations: The Federal rules restrict any use of the information to criminally investigate or prosecute any alcohol or drug abuse patient.[facility] CenterIn the event this information is protected by the Federal Confidentiality of Alcohol and Drug Abuse Patient Records regulations: The Federal rules restrict any use of the information to criminally investigate or prosecute any alcohol or drug abuse patient.[facility] CenterIn the event this information is protected by the Federal Confidentiality of Alcohol and Drug Abuse Patient Records regulations: The Federal rules restrict any use of the information to criminally investigate or prosecute any alcohol or drug abuse patient.[facility] CenterIn the event this information is protected by the Federal Confidentiality of Alcohol and Drug Abuse Patient Records regulations: The Federal rules restrict any use of the information to criminally investigate or prosecute any alcohol or drug abuse patient.[facility] CenterIn the event this information is protected by the Federal Confidentiality of Alcohol and Drug Abuse Patient Records regulations: The Federal rules restrict any use of the information to criminally investigate or prosecute any alcohol or drug abuse patient.[facility] CenterIn the event this information is protected by the Federal Confidentiality of Alcohol and Drug Abuse Patient Records regulations: The Federal rules restrict any use of the information to criminally investigate or prosecute any alcohol or drug abuse patient.[facility] CenterIn the event this information is protected by the Federal Confidentiality of Alcohol and Drug Abuse Patient Records regulations: The Federal rules restrict any use of the information to criminally investigate or prosecute any alcohol or drug abuse patient.[facility] CenterIn the event this information is protected by the Federal Confidentiality of Alcohol and Drug Abuse Patient Records regulations: The Federal rules restrict any use of the information to criminally investigate or prosecute any alcohol or drug abuse patient.[facility] CenterIn the event this information is protected by the Federal Confidentiality of Alcohol and Drug Abuse Patient Records regulations: The Federal rules restrict any use of the information to criminally investigate or prosecute any alcohol or drug abuse patient.[facility] CenterIn the event this information is protected by the Federal Confidentiality of Alcohol and Drug Abuse Patient Records regulations: The Federal rules restrict any use of the information to criminally investigate or prosecute any alcohol or drug abuse patient.[facility] CenterIn the event this information is protected by the Federal Confidentiality of Alcohol and Drug Abuse Patient Records regulations: The Federal rules restrict any use of the information to criminally investigate or prosecute any alcohol or drug abuse patient.[facility] Reason for Visit (unrecogniz ed section and content) Reason Onset Date Comments Refill Request 12/26/2021 Reason Comments Abdominal Pain lower abdomen. Descr ibes it as cramping. Diarrhea mixed with constipat ion. 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 [address] [place] [address] Referral ID Status Reason Start Date Expiration Date V isits Requested Visits Authorized [id number] Closed PCP Requested Referral 06/02/2021 06/02/2022 1 1 Reason Comments Patient Update Reason Onset Date Comments Refill Request 02/08/2022 Reason Comments Refill Request Reason Onset Date Comments Refill Request 03/15/2022 Reason Comments Appointment Reason Comments Abdominal Pain Reason Comments abdomen pain Reason Comments Results Medication Problem Reason Comments Hospital Follow Up [facility] March 17- une , wt loss, diarrhea, right upper quandrant pain Reason Comments patient information Reason Comments fax request Reason Comments Lump below breast, above rib cage Reason Comments Mass Lump under L breast Reason Comments Viral Syndrome Reason Comments Abdominal Pain Abdominal pain on R side, nausea and diarrhea Reason Comments Follow Up Reason Comments Finger Pain L hand middle finger pain x2 weeks, no known injury Reason Onset Date Comments 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 Reason Comments Headache Reason Comments Dizziness Reason Comments Follow Up Phone Call RC follow up call f irst attempt Reason Onset Date Comments Transition Of Care 12/29/2022 TCM Initial A [facility] Discharge 12/28/22 Reason Comments Pain Pain in vein after I V Reason Comments New Patient Headache Specialty Diagnoses / Procedures Referred By Isabela miles Referred To Contact Neurology Diagnoses Intractable headache, unspecified chronicity pattern, unspecified headache type Procedures CONSULT TO NEUROLOGY OFFICE/OUTPATIENT NEW HIGH MDM 60-74 MINUTES Yamileth Tafoya, HYDROELECTRIC PLANT MAINTAINER.ECOMMERCE MANAGER [address] [place] [address] Referral ID Status Reason Start Date Expiration Date V isits Requested Visits Authorized [id number] Closed PCP Requested Referral 12/30/2022 12/30/2023 1 1 Reason Comments Established Patient Nerve Block Reason Comments Forms Return to work Reason Comments Results Reason Comments Mammogram Result Call Back Reason Onset Date Comments Refill Request 03/15/2023 Reason Comments Same Day Appointment left knee pain sinc e Tuesday due to a fall, 04/18, took meloxicam and tried ice elevation Reason Comments Acute Visit History of SVT- havi ng dizziness when standing, swelling in bilateral lower feet/legs/hands x2 weeks Reason Comments Results Reason Comments Heavy Lift Rigger - Other Reason Comments fmla forms Reason Onset Date Comments Refill Request 12/29/2023 Reason Onset Date Comments Refill Request 12/29/2023 Reason Comments Follow Up Reason Comments Insurance Authoriztion [facility] Reason Comments Radiology MRI Reason Comments Headache Reason Comments No Show Reason Comments Cough Cough and congestion x 1 month-was better and got worse last night Reason Comments Cough Reason Comments Low Back Pain X 2 days-also diarrh ea all day Reason Comments Intestinal Disorder Reason Comments Headache Discuss migraines Care Teams (unrecognized sec tion and content) Race Board Attendant Relationship Specialty Start Date End Date Nicky Knight MD [address] [facility] [place] [address] PCP - General Internal Medicine 08/17/19 Race Board Attendant Relationship Specialty Start Date End Date Nicky Knight MD [address] [facility] [place] [address] PCP - General Internal Medicine 08/17/19 Race Board Attendant Relationship Specialty Start Date End Date Nicky Knight MD [address] [facility] [place] [address] PCP - General Internal Medicine 08/17/19 Race Board Attendant Relationship Specialty Start Date End Date Nicky Knight MD [address] [facility] [place] [address] PCP - General Internal Medicine 08/17/19 Race Board Attendant Relationship Specialty Start Date End Date Nicky Knight MD [address] [facility] [place] [address] PCP - General Internal Medicine 08/17/19 Race Board Attendant Relationship Specialty Start Date End Date Nicky Knight MD [address] [facility] [place] [address] PCP - General Internal Medicine 08/17/19 Race Board Attendant Relationship Specialty Start Date End Date Nicky Knight MD [address] [place] [address] PCP - General Internal Medicine 08/17/19 Race Board Attendant Relationship Specialty Start Date End Date Nicky Knight MD [address] [facility] [place] [address] PCP - General Internal Medicine 08/17/19 Race Board Attendant Relationship Specialty Start Date End Date Nicky Knight MD [address] [facility] [place] [address] PCP - General Internal Medicine 08/17/19 Race Board Attendant Relationship Specialty Start Date End Date Nicky Knight MD [address] [facility] [place] [address] PCP - General Internal Medicine 08/17/19 Race Board Attendant Relationship Specialty Start Date End Date Nicky Knight MD [address] [facility] [place] [address] PCP - General Internal Medicine 08/17/19 Race Board Attendant Relationship Specialty Start Date End Date Nicky Knight MD [address] [facility] [place] [address] PCP - General Internal Medicine 08/17/19 Race Board Attendant Relationship Specialty Start Date End Date Nicky Knight MD [address] [facility] [place] [address] PCP - General Internal Medicine 08/17/19 Race Board Attendant Relationship Specialty Start Date End Date Nicky Knight MD [address] [facility] [place] [address] PCP - General Internal Medicine 08/17/19 Race Board Attendant Relationship Specialty Start Date End Date Nicky Knight MD [address] [facility] [place] [address] PCP - General Internal Medicine 08/17/19 Race Board Attendant Relationship Specialty Start Date End Date Nicky Knight MD [address] [facility] [place] [address] PCP - General Internal Medicine 08/17/19 Race Board Attendant Relationship Specialty Start Date End Date Nicky Knight MD [address] [facility] [place] [address] PCP - General Internal Medicine 08/17/19 Race Board Attendant Relationship Specialty Start Date End Date Nicky Knight MD [address] [facility] [place] [address] PCP - General Internal Medicine 08/17/19 Race Board Attendant Relationship Specialty Start Date End Date Nicky Knight MD [address] [facility] [place] [address] PCP - General Internal Medicine 08/17/19 Race Board Attendant Relationship Specialty Start Date End Date Nicky Knight MD [address] [facility] [place] [address] PCP - General 04/07/22 Race Board Attendant Relationship Specialty Start Date End Date Nicky Knight MD [address] [facility] [place] [address] PCP - General Internal Medicine 08/17/19 Team Status: Active Member Role Status Dates Dr. Nicky Knight MD Family Provider Active Nicky HODGE MD Primary Care Provider Active Team Status: Active Member Role Status Dates Nicky HODGE MD Primary Care Provider Active Dr. Andria Carcamo DO Emergency Provider Active Dr. Rosemary Melchor MD Attending Provider Active Team Status: Inactive Member Role Status Dates Nicky HODGE MD Primary Care Provider Active Dr. Isaiah Pederson DO Attending Provider, Emergency Provider Active Team Status: Inactive Member Role Status Dates Nicky HODGE MD Primary Care Provider Active Dr. John Valdez MD Emergency Provider Active Team Status: Inactive Member Role Status Dates Nicky HODGE MD Primary Care Provider Active Dr. Andria Carcamo DO Emergency Provider Active Race Board Attendant Relationship Specialty Start Date End Date Nicky Knight MD [address] [facility] [place] [address] PCP - General Internal Medicine 08/17/19 Race Board Attendant Relationship Specialty Start Date End Date Nicky Knight MD [address] [facility] [place] [address] PCP - General Internal Medicine 08/17/19 Race Board Attendant Relationship Specialty Start Date End Date Nicky Knight MD [address] [facility] [place] [address] PCP - General Internal Medicine 08/17/19 Team Status: Active Member Role Status Dates Dr. Nicky Knight MD Family Provider Active Dr. Nicky Knight MD Primary Care Provider Active Team Status: Inactive Member Role Status Dates Nicky HODGE MD Primary Care Provider Active Dr. John Valdez MD Attending Provider, Emergency Provi jon Active Team Status: Inactive Member Role Status Dates Nicky HODGE MD Primary Care Provider Active Dr. Andria Carcamo DO Attending Provider, Emergency Pro vider Active Team Status: Inactive Member Role Status Dates Dr. John Valdez MD Emergency Provider Active Dr. Nicky Knight MD Primary Care Provider Active Race Board Attendant Relationship Specialty Start Date End Date Nicky Knight MD [address] [facility] [place] [address] PCP - General Internal Medicine 08/17/19 Race Board Attendant Relationship Specialty Start Date End Date Nicky Knight MD [address] [facility] [place] [address] PCP - General Internal Medicine 08/17/19 Race Board Attendant Relationship Specialty Start Date End Date Nicky Knight MD [address] [facility] [place] [address] PCP - General Internal Medicine 08/17/19 Race Board Attendant Relationship Specialty Start Date End Date Nicky Knight MD [address] [facility] [place] [address] PCP - General Internal Medicine 08/17/19 Race Board Attendant Relationship Specialty Start Date End Date Nicky Knight MD [address] [facility] [place] [address] PCP - General Internal Medicine 08/17/19 Race Board Attendant Relationship Specialty Start Date End Date Nicky Knight MD [address] [facility] [place] [address] PCP - General Internal Medicine 08/17/19 Race Board Attendant Relationship Specialty Start Date End Date Nicky Knight MD [address] [facility] [place] [address] PCP - General Internal Medicine 08/17/19 Race Board Attendant Relationship Specialty Start Date End Date Nicky Knight MD [address] [facility] [place] [address] PCP - General Internal Medicine 08/17/19 Race Board Attendant Relationship Specialty Start Date End Date Nicky Knight MD [address] [facility] [place] [address] PCP - General Internal Medicine 08/17/19 Race Board Attendant Relationship Specialty Start Date End Date Nicky Knight MD [address] [facility] [place] [address] PCP - General Internal Medicine 08/17/19 Race Board Attendant Relationship Specialty Start Date End Date Nicky Knight MD [address] [facility] [place] [address] PCP - General Internal Medicine 08/17/19 Team Status: Inactive Member Role Status Dates Dr. John Valdez MD Attending Provider, Emergency Provi jon Active Dr. Nicky Knight MD Primary Care Provider Active Team Status: Inactive Member Role Status Dates Dr. Nicky Knight MD Primary Care Provider Active Dr. Sakshi Akhtar MD Emergency Provider Active Race Board Attendant Relationship Specialty Start Date End Date Nicky Knight MD [address] [facility] [place] [address] PCP - General Internal Medicine 08/17/19 Race Board Attendant Relationship Specialty Start Date End Date Nicky Knight MD [address] [facility] [place] [address] PCP - General Internal Medicine 08/17/19 Race Board Attendant Relationship Specialty Start Date End Date Nicky Knight MD [address] [facility] [place] [address] PCP - General Internal Medicine 08/17/19 Race Board Attendant Relationship Specialty Start Date End Date Nicky Knight MD [address] [facility] [place] [address] PCP - General Internal Medicine 08/17/19 Race Board Attendant Relationship Specialty Start Date End Date Nicky Knight MD [address] [facility] [place] [address] PCP - General Internal Medicine 08/17/19 Race Board Attendant Relationship Specialty Start Date End Date Nicky Knight MD [address] [facility] [place] [address] PCP - General Internal Medicine 08/17/19 Race Board Attendant Relationship Specialty Start Date End Date Nicky Knight MD [address] [facility] [place] [address] PCP - General Internal Medicine 08/17/19 Race Board Attendant Relationship Specialty Start Date End Date Nicky Knight MD [address] [facility] [place] [address] PCP - General Internal Medicine 08/17/19 Race Board Attendant Relationship Specialty Start Date End Date Nicky Knight MD [address] [facility] [place] [address] PCP - General Internal Medicine 08/17/19 Race Board Attendant Relationship Specialty Start Date End Date Nicky Knight MD [address] [facility] [place] [address] PCP - General Internal Medicine 08/17/19 Race Board Attendant Relationship Specialty Start Date End Date Nicky Knight MD [address] [facility] [place] [address] PCP - General Internal Medicine 08/17/19 Race Board Attendant Relationship Specialty Start Date End Date Nicky Knight MD [address] [facility] [place] [address] PCP - General Internal Medicine 08/17/19 Race Board Attendant Relationship Specialty Start Date End Date Nicky Knight MD [address] [facility] [place] [address] PCP - General Internal Medicine 08/17/19 Race Board Attendant Relationship Specialty Start Date End Date Nicky Knight MD [address] [facility] [place] [address] PCP - General Internal Medicine 08/17/19 Race Board Attendant Relationship Specialty Start Date End Date Nicky Knight MD [address] [facility] [place] [address] PCP - General 04/07/22 Race Board Attendant Relationship Specialty Start Date End Date Nicky Knight MD [address] [facility] [place] [address] PCP - General Internal Medicine 08/17/19 Albina Padilla, STEPHANIEC [address] [place] [address] Psychiatric Technician Family Medicine 09/16/24 Carole Moore APRN.ECOMMERCE MANAGER [address] [place] [address] Psychiatric Technician Internal Medicine 09/16/24 Cristal Jamison PA-C [address] [place] [address] Psychiatric Technician Family Medicine 09/16/24 Race Board Attendant Relationship Specialty Start Date End Date Nicky Knight MD [address] [place] [address] PCP - General Internal Medicine 08/17/19 Albina Padilla PA-C [address] [place] [address] Psychiatric Technician Family Medicine 09/16/24 Carole Moore APRN.ECOMMERCE MANAGER [address] [place] [address] Psychiatric Technician Internal Medicine 09/16/24 Cristal Jamison PA-C [address] [place] [address] Psychiatric Technician [facility] 09/16/24 Race Board Attendant Relationship Specialty Start Date End Date Nicky Knight MD [address] [place] [address] PCP - General Internal Medicine 08/17/19 Albina Padilla PA-C [address] [place] [address] Psychiatric Technician Family Medicine 09/16/24 Carole Moore APRN.ECOMMERCE MANAGER [address] [place] [address] Psychiatric Technician Internal Medicine 09/16/24 Cristal Jamison PA-C [address] [place] [address] [facility] 09/16/24 Race Board Attendant Relationship Specialty Start Date End Date Nicky Knight MD [address] [place] [address] PCP - General Internal Medicine 08/17/19 Albina aPdilla PA-C [address] [place] [address] [facility] Carole Moore APRN.ECOMMERCE MANAGER [address] [place] [address] [facility] Internal Medicine 09/16/24 Cristal Jamison PA-C [address] [place] [address] [facility] 09/16/24 Race Board Attendant Relationship Specialty Start Date End Date Nicky Knight MD [address] [place] [address] PCP - General Internal Medicine 08/17/19 Albina Padilla PA-C [address] [place] [address] Psychiatric Technician Family Medicine 09/16/24 Carole Moore APRN.ECOMMERCE MANAGER [address] [place] [address] Psychiatric Technician Internal Medicine 09/16/24 Cristal Jamison PA-C [address] [place] [address] Psychiatric Technician Family Medicine 09/16/24 Race Board Attendant Relationship Specialty Start Date End Date Nicky Knight MD [address] [facility] [place] [address] PCP - General Internal Medicine 08/17/19 Albina Padilla PA-C [address] [place] [address] Psychiatric Technician Family Medicine 09/16/24 Carole Moore APRN.ECOMMERCE MANAGER [address] [place] [address] Psychiatric Technician Internal Medicine 09/16/24 Cristal Jamison PA-C [address] [place] [address] Psychiatric Technician Family Medicine 09/16/24 Race Board Attendant Relationship Specialty Start Date End Date Nicky Knight MD [address] [place] [address] PCP - General Internal Medicine 08/17/19 Carole Moore APRN.ECOMMERCE MANAGER [address] [place] [address] Psychiatric Technician Internal Medicine 09/16/24 Race Board Attendant Relationship Specialty Start Date End Date Nicky Knight MD [address] [place] [address] PCP - General Internal Medicine 08/17/19 Albina Padilla PA-C [address] [place] [address] Psychiatric Technician Family Medicine 09/16/24 12/30/24 Carole Moore APRN.ECOMMERCE MANAGER [address] [place] [address] Psychiatric Technician Internal Medicine 09/16/24 Cristal Jamison PA-C [address] [place] [address] Psychiatric Technician Family Medicine 09/16/24 12/30/24 Race Board Attendant Relationship Specialty Start Date End Date Nicky Kngiht MD [address] [place] [address] PCP - General Internal Medicine 08/17/19 Carole Moore APRN.ECOMMERCE MANAGER [address] [place] [address] Psychiatric Technician Internal Medicine 09/16/24 Race Board Attendant Relationship Specialty Start Date End Date Nicky Knight MD [address] [place] [address] PCP - General Internal Medicine 08/17/19 Carole Moore APRN.ECOMMERCE MANAGER [address] [place] [address] Psychiatric Technician Internal Medicine 09/16/24 Race Board Attendant Relationship Specialty Start Date End Date Nicky Knight MD [address] [place] [address] PCP - General Internal Medicine 08/17/19 Carole Moore APRN.ECOMMERCE MANAGER [address] [place] [address] Psychiatric Technician Internal Medicine 09/16/24 Ordered Prescriptions (unrec ognized section and content) Prescription Sig Dispensed Refills Start Date End Da te oxyCODONE (ROXICODONE) 5 MG immediate release tabletIndications:Abdomin al pain, right upper quadrant Take 1 tablet by mouth every 6 hours as needed for Pain for up to 3 days. 10 tablet 0 03/27/2022 03/30/2022 Scheduled Active and Recently Administ ered Medications (unrecognized section and content) Medication Order 03/25/2022 03/26/2022 03/27/2022 buPROPion (WELLBUTRIN XL) extended release tablet 300 mg 300 mg, Oral, DAILY, First dose on 03/20/22 at 0900, Until Discontinued, Do not crush or break. 0802 (Given - Provider: Sadia Grace RN) 08 (Given - Provider: Emerita Whaley, KB) 101 (Given - Provider: Sadia Grace, KB) dilTIAZem (CARDIZEM CD) extended release capsule 120 mg 120 mg, Oral, DAILY, First dose on 03/20/22 at 0900, Until Discontinued, Do not crush or break. 1999 (Given - Provider: Narinder Patel, KB) 2058 (Given - Provider: Tanya Lugo RN) 2099 (Due) furosemide (LASIX) tablet 20 mg 20 mg, Oral, DAILY, First dose on 03/20/22 at 0900, Until Discontinued 752 (Not Given - Provider: Sadia Grace RN - Reason: Patient/family refused) 823 (Not Given - Provider: Emerita Whaley, KB - Reason: Patient/family refused) 916 (Not Given - Provider: Sadia Grace RN - Reason: Patient/family refused) gabapentin (NEURONTIN) capsule 300 mg 300 mg, Oral, NIGHTLY, First dose on 03/20/22 at 2100, Until Discontinued 1999 (Given - Provider: Narinder Patel RN) 2099 (Given - Provider: Tanya Lugo RN) 2099 (Due) losartan (COZAAR) tablet 50 mg 50 mg, Oral, DAILY, First dose on 03/20/22 at 0900, Until Discontinued 1999 (Given - Provider: Narinder Patel RN) 2099 (Not Given - Provider: Tanya Lugo RN - Reason: Other - Comment: BP low) 2099 (Due) pantoprazole (PROTONIX) tablet 40 mg 40 mg, Oral, DAILY BEFORE BREAKFAST, First dose on 03/21/22 at 0700, Until Discontinued, Do not crush or break. Substituted for Omeprazole (PRILOSEC). 08 (Given - Provider: Sadia Grace RN) 06 (Given - Provider: Narinder Patel RN) 05 (Given - Provider: Tanya Lugo RN) potassium chloride (KLOR-CON M) extended release tablet 10 mEq 10 mEq, Oral, DAILY WITH BREAKFAST, First dose on 03/20/22 at 0800, Until Discontinued, Do not crush or break. 08 (Given - Provider: Sadia Grace RN) 08 (Given - Provider: Emerita Whaley RN) 101 (Given - Provider: Sadia Grace RN) sennosides-docusate sodium (SENOKOT-S) 8.6-50 MG tablet 2 tablet 2 tablet, Oral, 2 times daily, First dose on [place] 03/25/22 at 2100, Until Discontinued 1999 (Given - Provider: Narinder Patel RN) 822 (Given - Provider: Emerita Whaley RN)2058 (Given - Provider: Tanya Lugo RN) 101 (Given - Provider: Sadia Grace RN)2099 (Due) sodium chloride flush 0.9 % injection 5-40 mL 5-40 mL, IntraVENous, EVERY 12 HOURS SCHEDULED (2 times per day), First dose on [place] 03/18/22 at 0900, Until Discontinued, For Line Patency: Peripheral IV = 5 mL; Midline or Central Line = 10 mL/lumen. If following IV push medication, administer flush at same rate as the IV push. Flush volume is determined by type of infusion therapy being given. For non-viscous solutions use: Peripheral IV = 5 mL Midline or Central Line = 10 mL/lumen For viscous solutions (i.e. blood components, parenteral nutrition, contrast media, or after obtaining blood sample) use: Peripheral IV = 10 mL Midline or Central Line = 20 mL/lumen 0802 (Given - Provider: Sadia Grace RN)2005 (Given - Provider: Narinder Patel RN) 08 (Given - Provider: Emerita Whaley RN)2099 (Not Given - Provider: Tanya Lugo RN - Reason: Other - Comment: SQ IV) 0900 (Due)2099 (Due) traZODone (DESYREL) tablet 50 mg 50 mg, Oral, NIGHTLY, First dose on Tue03/20/22 at 2100, Until Discontinued 1999 (Given - Provider: Narinder Patel RN) 2099 (Given - Provider: Tanya Lugo RN) 2099 (Due) vitamin D (ERGOCALCIFEROL) capsule 50,000 Units 50,000 Units, Oral, WEEKLY, First dose on Tue03/22/22 at 0900, Until Discontinued, Every Tuesday PRN Medication Order 03/25/2022 03/26/2022 03/27/2022 0.9 % sodium chloride infusion IntraVENous, at 5-250 mL/hr, PRN, if patient receiving piggyback infusions and maintenance fluids are not ordered OR KVO fluids to protect IV site / prevent frequent line interruptions/ long duration, Starting on Tue03/18/22 at 0206, For piggyback infusion, administer at same rate as piggyback for a total of 25 mL. Enter 25 mL into dose field and piggyback rate into rate field of order. If piggyback is infusing at a rate less than 100 mL/hr, enter 25 mL into dose field and 100 mL/hr into rate field of order. For KVO fluids, enter rate of 20 mL/hr or less into rate field of order. diphenhydrAMINE (BENADRYL) tablet 25 mg 25 mg, Oral, EVERY 6 HOURS PRN, Starting on Tue03/23/22 at 1727, Until Discontinued, Itching 0349 (Given - Provider: Yovana Teague RN)1353 (Given - Provider: Sadia Grace RN) 0013 (Given - Provider: Narinder Patel RN)2100 (Given - Provider: Tanya Lugo RN - Comment: barcode not scanning; pharmacy notified.) 0418 (Given - Provider: Tanya Lugo RN) HYDROmorphone (DILAUDID) injection 0.5 mg (CANCELED) HYDROmorphone (DILAUDID) 1.5mg IV is equivalent to morphine 10mg IV, 0.5 mg, SubCUTAneous, EVERY 4 HOURS PRN, Starting on Tue03/23/22 at 2120, Until 03/27/22 at 1002, Pain Severe (7-10), only if actively vomiting, If oral and IV narcotics ordered, use oral first and only use IV if oral is ineffective or cannot take oral. Do Not give oral and IV within 1 hour of each other unless specifically ordered. 0349 (Given - Provider: Yovana Teague RN)0802 (Given - Provider: Sadia Grace RN)1348 (Given - Provider: Sadia Grace RN) ondansetron (ZOFRAN) injection 4 mg(Linked Group 1) 4 mg, IntraVENous, EVERY 6 HOURS PRN, Starting on Tue03/18/22 at 0206, Until Discontinued, Nausea, Vomiting, Administer if oral route cannot be used. 0803 (See Alternative - Provider: Sadia Grace RN)1642 (See Alternative - Provider: Sadia Grace RN) 1228 (See Alternative - Provider: Emerita Whaley, KB)2100 (See Alternative - Provider: Tanya Lugo RN) 0418 (See Alternative - Provider: Tanya Lugo RN) ondansetron (ZOFRAN-ODT) disintegrating tablet 4 mg(Linked Group 1) 4 mg, Oral, EVERY 8 HOURS PRN, Starting on Tue03/18/22 at 0206, Until Discontinued, Nausea, Vomiting 0803 (Given - Provider: Sadia Grace RN)1642 (Given - Provider: Sadia Grace RN) 1228 (Given - Provider: Emerita Whaley, KB)2100 (Given - Provider: Tanya Lugo RN) 0418 (Given - Provider: Tanya Lugo RN) oxyCODONE (ROXICODONE) immediate release tablet 10 mg (CANCELED) 10 mg, Oral, EVERY 4 HOURS PRN, Starting on Tu03/23/22 at 1337, Until 03/27/22 at 1107, Pain Severe (7-10) 0149 (Given - Provider: Jojo Parada)1224 (Given - Provider: Sadia Grace, KB)1642 (Given - Provider: Sadia Grace RN)1955 (Given - Provider: Narinder Patel, KB) 0007 (Given - Provider: Narinder Patel RN)0412 (Given - Provider: Narinder Patel RN)0823 (Given - Provider: Emerita Whaley RN)1228 (Given - Provider: Emerita Whaley RN)1638 (Given - Provider: Emerita Whaley RN)2100 (Given - Provider: Tanya Lugo RN) 0108 (Given - Provider: Tanya Lugo RN)0556 (Given - Provider: Tanya Lugo RN)1014 (Given - Provider: Sadia Grace RN) oxyCODONE (ROXICODONE) immediate release tablet 5 mg 5 mg, Oral, EVERY 6 HOURS PRN, Starting on 03/27/22 at 1115, Until Discontinued, Pain Severe (7-10) polyethylene glycol (GLYCOLAX) packet 17 g 17 g, Oral, DAILY PRN, Starting on [place] 03/18/22 at 0206, Until Discontinued, Constipation, First line therapy for constipation promethazine (PHENERGAN) injection 12.5 mg Only to be given as IM injection., 12.5 mg, IntraMUSCular, EVERY 6 HOURS PRN, Starting on 03/20/22 at 1851, Until Discontinued, Nausea, Only to be given as IM injection. sodium chloride flush 0.9 % injection 5-40 mL 5-40 mL, IntraVENous, PRN, Starting on [place] 03/18/22 at 0206, Until Discontinued, Line Care, After every IV line use, For Line Patency: Peripheral IV = 5 mL; Midline or Central Line = 10 mL/lumen. If following IV push medication, administer flush at same rate as the IV push. Flush volume is determined by type of infusion therapy being given. For non-viscous solutions use: Peripheral IV = 5 mL Midline or Central Line = 10 mL/lumen For viscous solutions (i.e. blood components, parenteral nutrition, contrast media, or after obtaining blood sample) use: Peripheral IV = 10 mL Midline or Central Line = 20 mL/lumen 2004 (Given - Provider: Narinder Patel RN) Linked Groups Order Group 1: ondansetron (ZOFRAN-ODT) disintegrating tablet 4 mgJump to med 4 mg, Oral, EVERY 8 HOURS PRN, Starting on [place] 03/18/22 at 0206, Until Discontinued, Nausea, Vomiting Or ondansetron (ZOFRAN) injection 4 mgJump to med 4 mg, IntraVENous, EVERY 6 HOURS PRN, Starting on [place] 03/18/22 at 0206, Until Discontinued, Nausea, Vomiting
Administer if oral route cannot be used.
Scheduled Medication Order 12/14/2022 12/15/2022 12/16/2022 dexAMETHasone (Decadron) injection 10 mg (COMPLETED) 10 mg, IntraVENous, Once, On [place] 12/16/22 at 1040, For 1 dose 1100 (Given - Provid er: Linda Walker RN) diphenhydrAMINE (BENADryl) injection 25 mg (COMPLETED) 25 mg, IntraVENous, Once, On [place] 12/16/22 at 0905, For 1 dose 0927 (Given - Provid er: Joselin Jimenez RN) magnesium sulfate IVPB premix 1,000 mg (COMPLETED) 1,000 mg, IntraVENous, at 25 mL/hr, Administer over 1 Hours, Once, On [place] 12/16/22 at 1000, For 1 dose, Recommended infusion rate not to exceed 1,000 mg (milligrams) per hour. 0938 (New Bag - Prov ider: Joselin Jimenez RN)0944 (Restarted - Provider: Joselin Jimenez RN)1038 (Stopped - Provider: Jayashree Banerjee RN) metoclopramide (Reglan) injection 10 mg (COMPLETED) 10 mg, IntraVENous, Once, On [place] 12/16/22 at 1040, For 1 dose 1054 (Given - Provid er: Linda Walker RN) prochlorperazine (Compazine) injection 10 mg (COMPLETED) 10 mg, IntraVENous, Once, On [place] 12/16/22 at 0905, For 1 dose, Give IV if patient is unable to take orally. Give IM if patient is unable to take orally and does not have IV access. 0930 (Given - Provid er: Joselin Jimenez RN) sodium chloride 0.9 % bolus 1,000 mL (COMPLETED) 1,000 mL, IntraVENous, at 1,000 mL/hr, Administer over 1 Hours, Once, On [place] 12/16/22 at 0905, For 1 dose 0916 (New Bag - Prov ider: Nadine Nicolas RN)0944 (Restarted - Provider: Joselin Jimenez RN)1016 (Stopped - Provider: Jayashree Banerjee RN) Goals (unrecognized section and content) Goals may be documented in a n alternate sectionGoals may be documented in an alternate sectionGoals may be documented in an alternate sectionGoals may be documented in an alternate section FOR RECORDS PERTAINING TO PATIENTS WHO ARE OR HAVE BEEN ENROLLED IN A CHEMICAL DEPENDENCY/SUBSTANCEABUSE PROGRAM, SOME INFORMATION MAY BE OMITTED. This clinical summary was aggregated from multiple sources. Caution should be exercised in using it in the provision of clinical care. This summary normalizes information from multiple sources, and as a consequence, information in this document may materially change the coding, format and clinical context of patient data. In addition, data may be omitted in some cases. CLINICAL DECISIONS SHOULD BE BASED ON THE PRIMARY CLINICAL RECORDS. [employer] provides no warranty or guarantee of the accuracy or completeness of information in this document.
[2025-04-05 10:22] LABS: Absolute Lymphocyte Count 1.67 X10^3/uL (0.83-4.51); Absolute Neutrophil Count 8.1 X10^3/uL (2.0-7.7); Basophil# 0.07 X10^3/uL; Basophil% 0.6 % (0-1); Eosinophil# 0.29 X10^3/uL; Eosinophils% 2.7 % (0-5); Hematocrit 42.8 % (37-47); Hemoglobin 14.6 g/dL (12.0-15.0); Lymphocyte # 1.67 X10^3/ul (0.83-4.51); Lymphocyte % 15.5 % (19-41); Mean Corp Hgb Conc 34.1 g/dL (32-36); Mean Corpuscular Hgb 33.8 pg (27.0-32.0); Mean Corpuscular Volume 99.1 fL (81-99); Mean Platelet Vol. 10.6 fl (6.2-12.0); Monocyte# 0.57 X10^3/uL; Monocyte% 5.3 % (0-10); NRBC Flagged by Analyzer 0 % (0-5); Neutrophil # 8.11 X10^3/uL (2.7-7.7); Neutrophil % 75.2 % (47-70); Platelet Count 247 K/mm3 (150-450); RBC Distribution Width CV 11.9 % (11.6-14.6); RBC Distribution Width SD 43.5 fl (35.1-43.9); Red Blood Count 4.32 M/mm3 (4.2-5.4); White Blood Count 10.8 K/mm3 (4.4-11.0)
[2025-04-05 10:51] LABS: ALB/GLOB Ratio 1.7 RATIO (0.9-2.4); AST(SGOT) 17 U/L (<=31); Alanine Aminotransfer ALT/SGPT 17 U/L (<=34); Albumin, Serum 4.6 g/dL (3.5-5.0); Alkaline Phosphatase 45 U/L (35-104); Anion Gap 12 (5-15); BUN 12 mg/dL (4-19); BUN/Creat Ratio 16.9 RATIO (10-20); Calcium,Total 10.1 mg/dL (7.6-11.0); Carbon Dioxide 23.4 mmol/L (21.0-32.0); Chloride 102 mmol/L (98-108); Cholesterol 193 mg/dL (<=200); Creatinine, Serum 0.71 mg/dL (0.70-1.20); EST Glomerular Filtration Rate 107 (>60); Globulin 2.7 g/dL (2.2-4.2); Glucose 84 mg/dL (70-99); High Density Lipoprotein 55 mg/dL; Low Density Lipoprotein Calc. 116 mg/dL; Potassium 4.4 mmol/L (3.3-5.1); Protein, Total 7.2 g/dL (5.9-8.4); Sodium Level 138 mmol/L (133-145); Total Bilirubin 0.83 mg/dL (0.00-1.30); Triglycerides 111 mg/dL; Very Low Density Lipoprotein 22 mg/dL (5-40); cholesterol:hdl ratio screen 3.53
== END | disposition home or self-care (01) ==
LOC: MTLAB 07:06
PROVIDERS: PCP Internal Medicine; Referring Provider Nurse Practitioner; Visit Provider Nurse Practitioner
DX: Z00.00 Encounter for general adult medical examination without abnormal findings (principal); G43.109 Migraine with aura, not intractable, without status migrainosus
CPT/HCPCS: 36415; 80053; 80061; 84443; 85025

== ENCOUNTER 2025-05-12 11:54 | Emergency (ER) | payer OTHER, SELFPAY ==
[2025-05-12 11:55] VITALS: BP 138/98; PULSE 99; RESP 22; TEMP 36.8; O2SAT 100; BMI 23.2
--- NOTE | 2025-05-12 12:35 | EKG12_ITS ---
Test Reason : ALERGIC REACTION Blood Pressure : */* mmHG Vent. Rate : 84 BPM Atrial Rate : 84 BPM P-R Int : 142 ms QRS Dur : 68 ms QT Int : 350 ms P-R-T Axes : 37 63 71 degrees QTcB Int : 413 ms Normal sinus rhythm Normal ECG Confirmed by MELISSA CHAVES, KELLY ([id number]), make up editor LA NENA RANGEL ([id number]) on 05/13/2025 9:46:49 AM Referred By: Confirmed By: KELLY TORRES MD
[2025-05-12] MEDS: 0.9% Normal Saline (1000mL) 1,000 ML 999 ML IV (12:50)
[2025-05-12] MEDS: DiphenhydrAMINE 50 MG/ML Syringe 25 MG IV (12:50)
--- OUTSIDE RECORDS SUMMARY | 2025-05-12 13:11 | XMS RPT_ITS | CCD ---
Author Organization [facility] Care Team Providers Care Investigator Narcotics Name Role Phone KB Gipson, Salima Scott [...] Kirkpatrick Unavailable Unavailable SIVAN AUSTIN Referring Unavailable Nicky Knight MD Primary Care Provider Unavailable Primary Care Provider UnavailNicky Burnham MD Primary Care Provider Nicky Knight MD Primary Care Provider Nicky Knight MD Primary Care Provider MD Nicky Mabry Primary Care Provider Unava ilable Dr. Andria Carcamo Emergency Provider [phone] 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 Nicky Knight MD Primary Care Provider OLDER MUTUAL FUND SALES AGENT-C, CAROLE Attending Provider OLDER MUTUAL FUND SALES AGENT-C, CAROLE Referring Provider Ganta, Nicky Primary Care Unavailable CAROLE MOORE Referring Unavailable CAROLE MOORE Attending Unavailable Romaine Dawkins Attending Unavailable Ganta, Nicky Primary Care Unavailable Ganta, Nicky Primary Care Unavailable Antoine Conner Attending Unavailable GANTA, NICKY Primary Care Unavailable PERRY BALLARD Referring Unavailable GANTA, NICKY Primary Care Unavailable GANTA, NICKY Primary Care Unavailable GANTA, NICKY Primary Care Unavailable GANTA, NICKY Primary Care Unavailable CAROLE MOORE Attending Unavailable GANTA, NICKY Primary Care Unavailable GANTA, NICKY Primary Care Unavailable JAMAR VALENCIA Attending Unavailable GANTA, NICKY Primary Care Unavailable Allergies Allergy Classification Reported Allergen(s) Allergy Type Date of Onset Reaction(s) Facility (10 sources) amoxicillin drug allergy 7 Anaphylaxis [facility] Work Phone: [phone] (10 sources) HYDROmorphone drug allergy 7 [facility]: [phone] (20 sources) natural latex rubber; Translations: [LATEX] allergy to substance 5 Other: See Comments [facility] Work Phone: [phone] (10 sources) varenicline drug allergy 7 Severe mood changes [facility] Work Phone: [phone] (20 sources) Meperidine; Translations: [MEPERIDINE (PF)] Drug Allergy 8 Other: See Comments [facility] (20 sources) Penicillins; Translations: [PENICILLINS] Propensity to adverse reactions to drug (disorder) 5 Hives, Anaphylaxis, Shortness of Breath [facility] (20 sources) varenicline; Translations: [VARENICLINE] Drug Allergy 6 Other: See Comments, Rash, Other [facility] (20 sources) Morphine; Translations: [MORPHINE] Drug Allergy 0 Hives, Itching [facility] (20 sources) Propoxyphene; Translations: [PROPOXYPHENE] Drug Allergy 9 Intolerance, Other [facility] (20 sources) Iodine; Translations: [IODINE] Drug Allergy 2 Hives, Swelling [facility] Work Phone: (5 sources) HYDROmorphone Drug Allergy 4 Nausea And Vomiting [facility] Work Phone: (6 sources) Latex Propensity to adverse reactions to drug 5 Rash [facility] Work Phone: (10 sources) Meperidine Drug Allergy 7 Nausea And Vomiting [facility] (5 sources) Iodides Propensity to adverse reactions to drug 2 Hives, Swelling [facility] (5 sources) Iodine Compounds Allergy to substance 2 Anaphylaxis [facility] (4 sources) Acetaminophen Drug Allergy 9 [facility] (4 sources) Latex Allergy to substance 5 Other, Rash [facility] (1 source) Latex Drug allergy (disorder) 5 [facility] (1 source) Meperidine Drug Allergy 5 [facility] (1 source) Morphine Drug Allergy 5 [facility] (1 source) Propoxyphene Drug Allergy 5 [facility] (1 source) Iodine and Iodide Containing Produc Drug allergy (disorder) 5 [facility] Medications Current Medications Medication Drug Class(es) Dates Sig (Normalized) Sig (Original) acetaminophen 300 mg / butalbital 50 mg / caffeine 40 mg oral capsule (11 sources) Barbiturate, Central Nervous System Stimulant, Methylxanthine Start: 12-19-2022 Butalbital-Aceta minophen-Caff (Fioricet) 50-300-40 mg capsule Active 1 NMA PO Q8H as needed for pain 7 3 0 December 19, 2022 1:00am Headache following lumbar puncture Other reaction to spinal and lumbar puncture Start: 12-16-2022 End: 01-21-2023 take 1-2 tablets [...] sources) Central Nervous System Stimulant, Methylxanthine Start: 12-29-19 End: 01-03-20 take 2 tablets by mouth every six hours as needed acetaminophen-caffe ine (EXCEDRIN TENSION HEADACHE) 500-65 mg tablet Take 2 tablets by mouth every 6 hours as needed for up to 5 days. 40 tablet 0 12/28/2022 01/02/2023 Active Comment on above: Take 2 tablets by mo ut every 6 hours as needed for up to 5 days. acetaminophen 325 mg / oxyCODONE hydrochloride 5 mg oral tablet (7 sources) Opioid Agonist Start: 04-25-20 take 1 tablet by mouth every eight hours as needed for pain Oxycodone-Acetamino phen (Percocet) 5-325 mg tablet Active 1 {tbl} PO Q8H as needed for pain 10 3 0 April 25, 2023 Chest pain Chest pain, unspecified Start: 10-26-2019 End: 10-29-2019 Oxycodone-Acetaminophen 1 TA BLET tablet Discontinued 1 {tbl} PO EVERY 6 HOURS NEEDED as needed for Pain 12 3 0 October 26, 2019 October 28, 2019 1:00am October 29, 2019 1:08am Abdominal pain Unspecified abdominal pain Start: 10-26-2019 End: 10-29-2019 take 1 tablet by mouth every six hours as needed Oxycodone-Acetaminophen Discontinued 1 TABLET PO EVERY 6 HOURS NEEDED 12 3 October 26, 2019 October 29, 2019 1:08am [id number] 200 actuat albuterol 0.09 mg/actuat metered dose [...] as needed for up to 5 days. diazePAM 5 mg oral tablet (1 source) Benzodiazepine Start: 11-28-2024 take 1 tablet by mouth three times daily as needed Diazepam (Valium) 5 mg tablet Active 5 mg PO THREE TIMES A DAY as needed for vertigo 21 7 November 28, 2024 1:00am Peripheral vertigo Other peripheral vertigo, unspecified ear 24 hr dilTIAZem hydrochloride 120 mg extended release oral capsule (20 sources) Calcium Channel Esperanza Start: 03-02-2021 End: 10-25-2022 take 1 capsule by mouth once daily Diltiazem Hcl 120 mg capsule,extended release 24hr Active 120 mg PO DAILY May 25, 2021 12:00am take 1 tablet by mouth once ellen y dilTIAZem (CARDIZEM LA) 120 MG TB24 extended release tablet Take 120 mg by mouth daily 0 Active Comment on above: Take 1 capsule by [facility] once daily. TAKE 1 CAPSULE BY [facility] EVERY DAY docusate sodium 50 mg / sennosides, halfway 8.6 mg oral tablet (1 source) Start: 03-25-2022 sennosides-docusate sodium (SENOKOT-S) 8.6-50 MG tablet 2 tablet [id number] 0.3 ml EPINEPHrine 1 mg/ml auto-injector (5 sources) alpha-Adrenergic Agonist, beta-Adrenergic Agonist, Catecholamine Start: 10-06-2022 Epinephrine (Epipen 2-Laverne) 0.3 mg/0.3 mL auto-injector Active 0.3 mg IM Q4H as needed for anaphylaxis 2 October 06, 2022 1:00am ergocalciferol 1.25 mg oral capsule (7 sources) Provitamin D2 Compound Start: 07-03-2020 Ergocalciferol (Vitamin D2) 50,000 UNIT capsule Active 30011 U PO MO July 03, 2020 12:00am supplement Start: 08-07-2018 take 07773 [IU] by [facility] every week 50,000 Units, Oral, WEEKLY, First dose on Tue03/22/22 at 0900, Until Discontinued Every Tuesday famotidine 20 mg oral tablet (5 sources) Histamine-2 Receptor Antagonist Start: 10-06-2022 take 1 tablet by mouth twice daily Famotidine (Pepcid) 20 mg tablet Active 20 mg PO TWICE A DAY 4 October 06, 2022 1:00am fidaxomicin 200 mg oral tablet (1 source) Macrolide Antibacterial Start: 01-18-2022 End: 01-28-2022 take 1 tablet by mouth twice daily fidaxomicin (DIFICID) 200 mg tablet Take 1 tablet by mouth twice daily for 10 days. 20 tablet 0 01/18/2022 01/28/2022 Active Comment on above: Take 1 tablet by viola th twice daily for 10 days. folic acid 1 mg oral tablet (9 sources) Start: 04-22-2023 End: 06-27-2024 take 1 tablet by mouth once daily folic acid 1 mg tablet Indications: Low folate Take 1 tablet by mouth once daily. 30 tablet 5 12/30/2023 06/27/2024 Active Comment on above: Take 1 tablet by viola th once daily. furosemide 20 mg oral tablet (20 sources) Loop Diuretic Start: 07-03-2020 End: 06-30-2022 take 1 tablet by mouth once daily as needed Furosemide 20 MG tablet Active 20 mg PO DAILY NEEDED as needed for Swelling July 03, 2020 12:00am Comment on above: TAKE 1 TABLET BY VIOLA TH EVERY DAY gabapentin 300 mg oral capsule (20 sources) [...] Comment on above: Take 1 capsule by [facility] daily at bedtime for 90 days. Take 1 capsule by [facility] three times daily. hydrOXYzine hydrochloride 25 mg oral tablet (20 sources) Antihistamine Start: 12-07-19 End: 06-30-20 take 1 tablet by mouth at bedtime Hydroxyzine Hcl 25 mg tablet Active 25 mg PO AT BEDTIME December 20, 2021 1:00am [...] by viola th every 8 hours as needed for pain. [...] Esperanza Star t: 04-28 End: 06-11 take 1 tablet by mouth once daily Losartan 50 mg Tablet Active 50 mg PO DAILY December 20, 2021 1:00am Comment on above: Take 1 tablet by viola once daily. methylPREDNISolone (1 source) Corticosteroid Star t: 01-08 End: 01-08 methylPREDNISolone (MEDROL, LAVERNE,) 4 mg Dose-Pack Take as directed 21 tablet 0 01/21/2023 01/26/2023 Active Comment on above: Take as directed metoprolol tartrate 25 mg oral tablet (20 sources) beta-Adrenergic Esperanza Star t: 10-10 take 1 tablet by mouth once daily metoprolol tartrate, short acting, (LOPRESSOR) 25 mg tablet Indications: Microvascular angina Take 1 tablet by mouth once daily. As directed 30 tablet 11 10/25/2022 Active Comment on above: Take 1 tablet by viola once daily. As directed nebivolol 2.5 mg oral tablet (10 sources) Star t: 12-09 take 1 tablet by mouth once daily nebivolol (BYSTOLIC) 2.5 mg tablet Indications: Microvascular angina , Nonsustained ventricular tachycardia (HCC) Take 1 tablet by mouth once daily. 30 tablet 11 01/02/2024 Active Comment on above: Take 1 tablet by viola once daily. OLANZapine 10 mg oral tablet (20 sources) Atypical Antipsychotic Star t: 05-29 take 0.5-1 tablets by mouth at bedtime [...] by mouth at bedtime for 30 days omeprazole 20 mg delayed release oral capsule (20 sources) Proton Pump Inhibitor Start: 11-28-2024 take 1 capsule by mouth once daily Omeprazole 20 mg capsule,delayed release(DR/EC) Active 20 mg PO DAILY November 28, 2024 1:00am Start: 09-27-2018 End: 12-28-2022 take 1 capsule by mouth once daily omeprazole (PRILOSEC) 40 mg capsule Take 1 capsule by mouth once daily. 30 capsule 2 12/30/2020 01/12/2022 Discontinued (Course of therapy completed) Comment on above: Take 1 capsule by mo [facility] once daily. ondansetron 4 mg disintegrating oral tablet (20 sources) Serotonin-3 Receptor Antagonist Start: 11-28-19 take 1 tablet by mouth three times daily as needed for nausea and vomiting Ondansetron 4 mg tablet,disintegrati ng Active 4 mg PO THREE TIMES A DAY as needed for nausea and vomiting 21 0 November 28, 2024 9:33am Start: 03-17-2022 End: 03-17-2022 ondansetron (ZOFRAN) injecti [...] 0 10/15/2021 12/26/2021 Discontinued Start: 05-21-2021 End: 04-03-2025 take 1 tablet by mouth every eight hours as needed for nausea ondansetron orally disintegrating (ZOFRAN ODT) 4 mg disintegrating tablet Indications: Migraine with aura and without status migrainosus, not intractable Take 1 tab every 8 hours as needed for nausea 30 tablet 3 04/03/2025 Active Start: 06-17-2018 End: 09-09-2020 take 1 tablet by mouth every eight hours as needed for nausea Ondansetron 4 MG tablet Discontinued 4 mg PO EVERY 8 HOURS NEEDED as needed for Nausea July 03, 2020 12:00am September 09, 2020 [...] mg oxyCODONE hydrochloride 5 mg oral tablet (12 sources) Opioid Agonist Start: 3 End: 3 [...] 10 mg Start: 01-16-2019 End: 01-19-2019 take 1 tablet by mouth every four hours as needed for pain Oxycodone 5 MG tablet Discontinued 5 mg PO EVERY 4 HOURS NEEDED as needed for Pain 10 3 0 January 16, 2019 12:00am January 18, 2019 12:00am January 19, 2019 12:09am Abdominal pain Unspecified abdominal pain Comment on above: Take 1 tablet by viola th every 6 hours as needed for up to 3 days. predniSONE 20 mg oral tablet (6 sources) Start: 09-25-2024 End: 09-30-2024 take 2 tablets by mouth once daily predniSONE (DELTASONE) 20 mg tablet Take 2 tablets by mouth once daily for 5 days. 10 tablet 09/25/2024 09/30/2024 Active Start: 10-06-2022 take 1 tablet by viola th once daily Prednisone 50 mg tablet Active 50 mg PO DAILY 2 October 06, 2022 1:00am 1 ml promethazine [...] Active propranolol hydrochloride 20 mg oral tablet (3 sources) beta-Adrenergic Esperanza Start: 04-03-2025 take 1 tablet by mouth twice daily propranolol (INDERAL) 20 mg tablet Indications: Migraine with aura and without status migrainosus, not intractable Take 1 tablet by mouth two times a day. 60 tablet 04/03/2025 Active rizatriptan 10 mg oral tablet (20 sources) Serotonin-1b and Serotonin-1d Receptor Agonist Start: 07-03-2020 End: 01-21-2023 Rizatriptan 10 MG tablet Active 10 mg PO .X1 PRN as needed for migraines July 03, 2020 12:00am Comment on above: Take at onset of hea dache one pill, may repeat in 2 hours, not more than 2 pills a day Take by mouth. Semaglutide (1 source) Start: 11-28-2024 Semaglutide (Ozempic) 0.25 mg or 0.5 mg (2 mg/3 mL) pen injector Active 0.25 mg SC EVERY WEEK November 28, 2024 1:00am for 4 weeks semaglutide 0.25 mg/0.5 mL (0.5 mg/mL) subcutaneous compounded injection (3 sources) Start: 10-28-2024 inject 0.25 mg by subcutaneous injection every week semaglutide 0.25 mg/0.5 mL (0.5 mg/mL) subcutaneous compounded injection Inject 0.25 mg subcutaneously one time a week. 10/28/2024 Active spironolactone 100 mg oral tablet (8 sources) Aldosterone Antagonist Start: 12-05-2024 take 1 [...] th every 12 hours for 3 days. topiramate 25 mg oral tablet (2 sources) Start: 04-10-2025 topiramate (TOPAMAX) 25 mg tablet Start with one pill at night for seven days and then increase to one pill two times a day 60 tablet 2 04/10/2025 Active ubrogepant 100 mg oral tablet (20 sources) [...] / HYDROcodone bitartrate 5 mg oral tablet (10 sources) Opioid Agonist Start: 10-18-2020 End: 10-20-2020 Hydrocodone-Acetami nophen 1 TABLET tablet Discontinued 1 {tbl} PO EVERY 4 HOURS NEEDED as needed for Pain 10 2 0 October 18, 2020 October 19, 2020 1:00am October 20, 2020 1:03am Sprain of wrist Unspecified sprain of unspecified wrist, initial encounter Start: 10-18-2020 End: 10-20-2020 take 1 tablet by mouth every four hours as needed Hydrocodone-Acetaminophen Discontinued 1 TABLET PO EVERY 4 HOURS NEEDED 10 2 October 18, 2020 October 20, 2020 1:03am Start: 05-18-2020 End: 05-20-2020 Hydrocodone-Acetaminophen 1 TABLET tablet Discontinued 1 {tbl} PO EVERY 4 HOURS NEEDED as needed for Pain 10 2 0 May 18, 2020 May 19, 2020 12:00am May 20, 2020 12:02am Chest pain Chest pain, unspecified Start: 05-18-2020 End: 05-20-2020 take 1 tablet by mouth every four hours as needed Hydrocodone-Acetaminophen Discontinued 1 TABLET PO EVERY 4 HOURS NEEDED 10 2 May 18, 2020 May 20, 2020 12:02am amitriptyline [...] TABS One tablet by mouth daily ASPIRIN [id number] Alyce Ovalles RN azithromycin 250 mg oral [...] tablet 5 2022 Active Start: 12-20-2021 take 1 tablet by viola th once daily Bupropion Hcl 150 mg tablet extended release 24 hr Active 150 mg PO DAILY December 20, 2021 1:00am Start: 12-07-2021 take 1 tablet by viola th once daily buPROPion XL (WELLBUTRIN XL) 150 mg 24 hr tablet Take 1 tablet by mouth once daily. 30 tablet 1 12/07/2021 Active Start: 07-03-2020 End: 09-09-2020 take 1 tablet by mouth every other day Bupropion Hcl 150 MG tablet sustained-release 12 hr Discontinued 150 mg PO EVERY OTHER DAY July 03, 2020 12:00am September 09, 2020 4:24pm Comment on above: Take 1 tablet by viola th once daily. TAKE 1 TABLET BY VIOLA TH EVERY DAY Take 2 tablets by mo [facility] once daily. cholecalciferol 1.25 mg oral capsule (20 sources) Vitamin D Start: End: 022 take 1 capsule by mouth every week cholecalciferol, Vitamin D3, (VITAMIN D3) 1,250 mcg (50,000 unit) cap capsule Indications: Vitamin D deficiency Take 1 capsule by mouth one time a week. 4 capsule 5 04/08/2022 06/30/2022 Discontinued (Discontinued by Patient) Comment on above: Take 1 capsule by mo [facility] one time a week. colestipol hydrochloride 5000 [...] Start: End: dexAMETHasone (Decadron) injection 10 mg 1 ml diphenhydrAMINE hydrochloride 50 mg/ml cartridge (12 sources) Histamine-1 Receptor Antagonist Start: End: diphenhydrAMINE (BENADryl) injection 25 mg Start: 10-06-2022 take 1 capsule by [facility] every eight hours as needed Diphenhydramine Hcl (Benadryl) 25 mg capsule Active 25 mg PO Q8H as needed for allergic reaction 12 October 06, 2022 1:00am Start: 03-23-2022 diphenhydrAMIN E (BENADRYL) tablet 25 mg Start: 03-18-2022 End: 03-23-2022 diphenhydrAMINE (BENADRYL) i njection 25 mg esomeprazole 20 mg delayed release oral tablet (5 sources) Proton Pump Inhibitor Start: 07-03-2020 End: 09-09-2020 take 1 tablet by mouth once daily Esomeprazole Magnesium 20 MG tablet,delayed release (DR/EC) Discontinued 20 mg PO DAILY July 03, 2020 12:00am September 09, 2020 4:24pm 2 ml fentaNYL 0.05 mg/ml injection (2 sources) Opioid Agonist Start: 03-23-2022 End: 03-23-2022 fentaNYL (SUBLIMAZE) injection gadobutrol (GADAVIST) injection 8 mL (1 source) [...] sulfate 40 mg/ml injection (2 sources) Start: 023 End: 023 magnesium sulfate IVPB premix 1,000 mg meclizine hydrochloride 25 mg oral tablet (5 sources) Antiemetic Start: 020 End: take 1 tablet by mouth four times daily as needed for dizziness Meclizine 25 MG tablet Discontinued 25 mg PO 4 TIMES DAILY NEEDED as needed for Dizziness July 03, 2020 5:55pm September 09, 2020 4:23pm meloxicam 15 mg oral tablet (20 sources) Nonsteroidal Anti-inflammatory Drug Start: End: take 1 tablet by mouth once daily at mealtime meloxicam (MOBIC) 15 mg tablet Take 1 tablet by mouth once daily. With food. 30 tablet 06/02/2021 06/30/2022 Discontinued (Discontinued by Patient) Comment on above: Take 1 tablet by viola th once daily. With food. metoclopramide 5 mg [...] - unknown (1 source) No information available. pantoprazole 40 mg delayed release oral tablet (20 sources) Proton Pump Inhibitor Start: End: take 1 tablet by mouth once daily before breakfast pantoprazole DR (PROTONIX) 40 mg tablet Take 1 tablet by mouth daily before breakfast. Take on empty stomach, 1/2 hr before meal. 90 tablet 1 01/29/2022 06/30/2022 Discontinued (Discontinued by Patient) Comment on above: TAKE 1 TABLET BY VIOLA DAILY BEFORE BREAKFAST. TAKE ON EMPTY STOMACH, [...] 10 mL injection (DEFINITY) polyethylene glycol 3350 20623 mg powder for oral solution (1 source) Osmotic Laxative Start: 17 g, Oral, DAILY PRN, Starting on Bernarda 03/18/22 at 0206, Until Discontinued, Constipation First line therapy for constipation polyethylene glycol 3350 309681 mg / potassium chloride 2970 mg / sodium bicarbonate 6740 mg / sodium chloride 5860 mg / sodium sulfate 96107 mg powder for oral solution (12 sources) [...] tablet (20 sources) Factor Xa Inhibitor Start: End: take 1 tablet by mouth once daily XARELTO 20 MG TABS One tablet by mouth daily RIVAROXABAN [id number] Alyce Ovalles RN 50 ml sodium chloride 9 mg/ml injection [...] mg daily or as instructed WARFARIN SODIUM [id number] Thomas Monaco MD Start: 05-16-2017 take 2 tablets by mo [facility] once daily COUMADIN 2 MG TABS 5 tablets by mouth tonight (05/16/17), 4 tablets by mouth tomorrow (05/17/10), then take 4 mg daily or as instructed WARFARIN SODIUM [id number] Thomas Monaco MD Problems Active Problems Problem Classification Problem Date Documented Da te Episodic/Chronic Anxiety disorders (15 sources) Anxiety disorder; Translations: [Anxiety disorder, unspecified] [...] tachycardia] Onset: 0 08-04-2020 Chronic Cardiac dysrhythmias (5 sources) Palpitations; Translations: [Palpitations] 07-04-2020 Episodic Chronic obstructive pulmonary disease and bronchiectasis (1 source) Bronchitis; Translations: [Bronchitis, not specified as acute or chronic] 09-25-2024 Episodic Complications of surgical procedures or medical care (8 sources) Headache following lumbar puncture; Translations: [Other reaction to spinal and lumbar puncture] 12-19-2022 Episodic Coronary atherosclerosis and other heart disease (20 sources) Angina pectoris; Translations: [Other forms of angina pectoris] Onset: 6 Chronic Diseases of white blood cells (1 source) Leukocytosis; Translations: [Elevated white blood cell count, unspecified] 04-22-2023 Chronic Esophageal disorders (9 sources) Gastroesophageal reflux disease; Translations: [Gastro-esophageal reflux disease without esophagitis] Chronic Essential hypertension (20 sources) Hypertensive disorder; Translations: [Essential (primary) hypertension] 04-16-2020 Chronic Gastritis and duodenitis (5 sources) Gastritis; Translations: [Gastritis, unspecified, without bleeding] 11-10-2018 Episodic Gastrointestinal hemorrhage (7 sources) Hematochezia; Translations: [Melena] Episodic Headache; including [...] Onset: 7 09-04-2017 Chronic Nausea and vomiting (7 sources) Nausea and vomiting; Translations: [Nausea with vomiting, unspecified] Episodic Noninfectious gastroenteritis (5 sources) Gastroenteritis; Translations: [Noninfective gastroenteritis and colitis, [...] conditions (not mental disorders or infectious disease) (10 sources) Patient encounter status; Translations: [Encounter for screening mammogram for malignant neoplasm of breast] Episodic Other skin disorders (1 source) Disorder of sweat gland; Translations: [Eccrine sweat disorder, unspecified] 04-03-2025 Episodic Other skin disorders (1 source) Hirsutism; Translations: [Hirsutism] 04-03-2025 Episodic Other skin disorders (1 source) Eccrine sweat disorder, unspecified; Translations: [Sweating abnormality] Onset: 5 Episodic Other skin disorders (1 source) Hirsutism; Translations: [Hirsutism] Onset: 5 Episodic Other upper respiratory infections (3 sources) Acute sinusitis; Translations: [Acute sinusitis, unspecified] Onset: 5 Episodic Residual codes; unclassified (5 sources) Tobacco use and exposure - finding; [...] Translations: [Acute cough] Onset: 4 Viral infection (6 sources) Disease caused by 2019-nCoV; Translations: [COVID-19] Episodic Past or Other Problems Problem Classification Problem Date Documented Da te Episodic/Chronic Abdominal pain (20 sources) Intractable abdominal pain; Translations: [Unspecified abdominal pain] Onset: 04-24-2014 Resolved: 09-28-2016 10-27-2019 Episodic Conditions associated with dizziness or vertigo (8 sources) Dizziness; Translations: [Dizziness and giddiness] Onset: 12-10-2024 07-04-2020 Episodic Crushing injury or internal injury (11 sources) Unspecified injury of other specified blood vessels at shoulder and upper arm level, unspecified arm, initial encounter; Translations: [Unspecified injury of other specified blood vessels at shoulder and upper arm level, unspecified arm, initial encounter] Onset: 05-16-2017 05-16-2017 Episodic Fever of unknown origin (19 sources) Fever; Translations: [Fever, unspecified] Onset: 05-22-2014 Resolved: 09-28-2016 09-28-2016 Episodic Headache; including migraine (20 sources) Acute headache; Translations: [Acute intractable headache] Onset: 12-23-2022 12-22-2022 Episodic Mycoses (19 sources) Candidiasis of mouth; Translations: [Candidal stomatitis] [...] 11-02-2018 11-02-2018 Episodic Other non-traumatic joint disorders (19 sources) Arthralgia of the pelvic region and [...] Test Name Value Interpretation Reference Range Facility [facility] 04-10-2025 [facility] Telephone (INTMWS) JOAN FOLEY ([id number]) 1980 F Date Time Provider Department 04/10/25 INCKY KNIGHT INTWS During your visit today, we recorded the following information about you: Michelle Almaraz LPN 04/10/2025 4:21 PM Signed The office completed a prior auth of [email or web address]. This has been approved. Prior authorization approved Payer: [employer] [phone] Note from payer: The request has been approved. The authorization is effective from 04/10/2025 to 10/07/2025, as long as the member is enrolled in their current health plan. The request was approved as submitted. This request has been approved with quantity limit of 16 tablets per 30 days. A written notification letter will follow with additional details. Approval Details Authorized from April 10, 2025 to October 07, 2025 Electronic appeal: Not supported View History Notes Time User Attachment Attachment received from payer. 04/10/2025 4:16 PM Cchs, Rx Priorauth In Document Pharmacy Benefits Open Encounter OG JOAN KAMARA FULLY INSURED ([employer]) Covered: Retail, Mail Order Unknown: Specialty, Long-Term Care BIN: [id number] : 1980 Group ID: [id number] PCN: [id number] Legal sex: F Group name: Address: [address] [place] [address] Medication Being Authorized ubrogepant (UBRELVY) 100 mg tablet Take 1 tablet by mouth as needed (severe headache.). Repeat in 2 hours if needed. Dispense: 16 tablet Refills: 4 Start: 04/03/2025 Class: Normal Diagnoses: Migraine with aura and without status migrainosus, not intractable This order has been released to its destination. To be filled at: [facility] [address] [place] [phone] [facility] [phone] Prior Authorization History for ubrogepant (UBRELVY) 100 mg tablet Pt notified via my chart. Allergies As of Date: 04/10/2025 Noted Allergy Reaction PENICILLINS 06/24/2005 4 - [...] PROPOXYPHENE 10/30/2018 5 - Intolerance Date Reviewed: 04/03/2025 Reviewed by: Carole Moore APRN.CLAIMS SUPERVISOR - Fully Assessed Reason for Visit: Insurance Authorization [1693] Prescriptions as of 04/10/2025 - topiramate (TOPAMAX) 25 mg tablet Start with one pill at night for seven days and then increase to one pill two times a day - semaglutide 0.25 mg/0.5 mL (0.5 mg/mL) subcutaneous compounded injection Inject 0.25 mg subcutaneously one time a week. - ubrogepant (UBRELVY) 100 mg tablet Take 1 tablet by mouth as needed (severe headache.). Repeat in 2 hours if needed. - ondansetron orally disintegrating (ZOFRAN ODT) 4 mg disintegrating tablet Take 1 tab every 8 hours as needed for nausea - propranolol (INDERAL) 20 mg tablet Take 1 tablet by mouth two times a day. - spironolactone (ALDACTONE) 100 mg tablet TAKE 1 TABLET BY MOUTH ONCE DAILY BEFORE BEDTIME WITH A FULL GLASS OF WATER - ibuprofen (MOTRIN) 800 mg tablet Take 1 tablet by mouth every 8 hours as needed for pain. Take with food. Problem List As Of Date 04/10/2025 Noted Resolved Pain in joint, pelvic region [...] aura with status migr*02/04/2023 Encounter Status:Closed by MICHELLE ALMARAZ on 04/10/25 Normal [facility] Absolute lymphocyte countOrd ered By: CAROLE MOORE on 04-05-2025 Lymphocytes Auto (Unsp spec) [#/Vol] 1.67 10*3/uL 0.83-4.51 [facility] Absolute neutrophil countOrd ered By: CAROLE MOORE on 04-05-2025 Neutrophils (Bld) [#/Vol] 8.1 10*3/uL High 2.0-7.7 [facility] Anion gap in Serum or Plasma Ordered By: CAROLE MOORE on 04-05-2025 Anion gap [Moles/Vol] 12 mmol/L 5-15 [facility] Automated lymphocyte count a s percentage of total leukocytesOrdered By: CAROLE MOORE on 04-05-2025 Lymphocytes/100 WBC Auto (Unsp spec) 15.5 % Low 19-41 [facility] BUN/creatinine ratioOrdered By: CAROLE MOORE on 04-05-2025 Urea nitrogen/Creatinine [Mass ratio] 16.9 mg/mg 10-20 [facility] Basophil percentageOrdered B y: CAROLE MOORE on 04-05-2025 Basophils/100 WBC (Bld) 0.6 % 0-1 [facility] Bilirubin, totalOrdered By: CAROLE MOORE on 04-05-2025 Bilirubin [Mass/Vol] 0.83 mg/dL 0.00-1.30 [facility] CBC W/Diff, Automatedon 06-2 Absolute Lymph 1.67 X10 3/uL Normal 0.83-4.51 [facility] Comment on above: Performed By: #### L 100.0100, L500.4050, L501.9520, L500.4100 ####[facility] [address] [place], [address] Absolute Neut 8.1 X10 3/uL High 2.0-7.7 [facility] Comment on above: Performed By: #### L 100.0100, L500.4050, L501.9520, L500.4100 ####[facility] [address] [place], [address] Basophils/100 WBC (Bld) 0.6 % Normal 0-1 [facility] Comment on above: Performed By: #### L 100.0100, L500.4050, L501.9520, L500.4100 ####[facility] [address] [place], [address] Eosinophils/100 WBC (Bld) 2.7 % Normal 0-5 [facility] Comment on above: Performed By: #### L 100.0100, L500.4050, L501.9520, L500.4100 ####[facility] [address] [place], [address] Erythrocyte distribution width (RBC) [Ratio] 11.9 % Normal 11.6-14.6 [facility] Comment on above: Performed By: #### L 100.0100, L500.4050, L501.9520, L500.4100 ####[facility] [address] [place], [address] Hematocrit (Bld) [Volume fraction] 42.8 % Normal 37-47 [facility] Comment on above: Performed By: #### L 100.0100, L500.4050, L501.9520, L500.4100 ####[facility] [address] [place], [address] Hemoglobin (Bld) [Mass/Vol] 14.6 g/dL Normal 12.0-15.0 [facility] Comment on above: Performed By: #### L 100.0100, L500.4050, L501.9520, L500.4100 ####[facility] [address] [place], [address] IG% 0.700 Normal 0.0-0.9 [facility] Comment on above: Result Comment: IG% - Immature Granulocytes (promyelocytes, myelocytes and metamyelocytes) > 1% indicates that a LEFT SHIFT is Present. Performed By: #### L 100.0100, L500.4050, L501.9520, L500.4100 ####[facility] [address] [place], [address] Lymphocytes/100 WBC (Bld) 15.5 % Low 19-41 [facility] Comment on above: Performed By: #### L 100.0100, L500.4050, L501.9520, L500.4100 ####[facility] [address] [place], [address] MCH (RBC) [Entitic mass] 33.8 pg High 27.0-32.0 [facility] Comment on above: Performed By: #### L 100.0100, L500.4050, L501.9520, L500.4100 ####[facility] [address] [place], [address] MCHC (RBC) [Mass/Vol] 34.1 g/dL Normal 32-36 [facility] Comment on above: Performed By: #### L 100.0100, L500.4050, L501.9520, L500.4100 ####[facility] [address] [place], [address] MCV (RBC) [Entitic vol] 99.1 fL High 81-99 [facility] Comment on above: Performed By: #### L 100.0100, L500.4050, L501.9520, L500.4100 ####[facility] [address] [place], [address] Monocytes/100 WBC (Bld) 5.3 % Normal 0-10 [facility] Comment on above: Performed By: #### L 100.0100, L500.4050, L501.9520, L500.4100 ####[facility] [address] [place], [address] Neutrophils/100 WBC (Bld) 75.2 % High 47-70 [facility] Comment on above: Performed By: #### L 100.0100, L500.4050, L501.9520, L500.4100 ####[facility] [address] [place], [address] Nucleated RBC (Bld) [#/Vol] 0 10*3/uL Normal 0-5 [facility] Comment on above: Performed By: #### L 100.0100, L500.4050, L501.9520, L500.4100 ####[facility] [address] [place], [address] Platelet mean volume (Bld) [Entitic vol] 10.6 fL Normal 6.2-12.0 [facility] Comment on above: Performed By: #### L 100.0100, L500.4050, L501.9520, L500.4100 ####[facility] [address] [place], [address] Platelets (Bld) [#/Vol] 247 10*3/uL Normal 150-450 [facility] Comment on above: Performed By: #### L 100.0100, L500.4050, L501.9520, L500.4100 ####[facility] [address] [place], [address] RBC (Bld) [#/Vol] 4.32 10*6/uL Normal 4.2-5.4 [facility] Comment on above: Performed By: #### L 100.0100, L500.4050, L501.9520, L500.4100 ####[facility] [address] [place], [address] RDW SD 43.5 fl Normal 35.1-43.9 [facility] Comment on above: Performed By: #### L 100.0100, L500.4050, L501.9520, L500.4100 ####[facility] [address] [place], [address] WBC (Bld) [#/Vol] 10.8 10*3/uL Normal 4.4-11.0 [facility] Comment on above: Performed By: #### L 100.0100, L500.4050, L501.9520, L500.4100 ####[facility] [address] [place], [address] Calculated very low density lipoprotein (VLDL) cholesterol measurementOrdered By: CAROLE MOORE on 04-05-2025 Calculated very low density lipoprotein (VLDL) cholesterol measurement 22 mg/dL 5-40 [facility] Carbon dioxide, total [Moles /volume] in Central venous bloodOrdered By: CAROLE MOORE on 04-05-2025 CO2 [Moles/Vol] 23.4 mmol/L 21.0-32.0 [facility] Chloride assayOrdered By: ESTEBAN MOORE on 04-05-2025 Chloride [Moles/Vol] 102 mmol/L 98-108 [facility] Comprehensive Metabolic Prof ilon 04-05-2025 Albumin [Mass/Vol] 4.6 g/dL Normal 3.5-5.0 [facility] Comment on above: Performed By: #### L 100.0100, L500.4050, L501.9520, L500.4100 ####[facility] [address] [place], [address] Albumin/Globulin [Mass ratio] 1.7 {ratio} Normal 0.9-2.4 [facility] Comment on above: Performed By: #### L 100.0100, L500.4050, L501.9520, L500.4100 ####[facility] [address] [place], [address] ALK PHOS 45 U/L Normal 35-104 [facility] Comment on above: Performed By: #### L 100.0100, L500.4050, L501.9520, L500.4100 ####[facility] [address] [place], [address] ALT [Catalytic activity/Vol] 17 U/L Normal <=34 [facility] Comment on above: Performed By: #### L 100.0100, L500.4050, L501.9520, L500.4100 ####[facility] [address] [place], [address] AST [Catalytic activity/Vol] 17 U/L Normal <=31 [facility] Comment on above: Performed By: #### L 100.0100, L500.4050, L501.9520, L500.4100 ####[facility] [address] [place], [address] Bilirubin [Mass/Vol] 0.83 mg/dL Normal 0.00-1.30 [facility] Comment on above: Performed By: #### L 100.0100, L500.4050, L501.9520, L500.4100 ####[facility] [address] [place], [address] BUN/CRE 16.9 RATIO Normal 10-20 [facility] Comment on above: Performed By: #### L 100.0100, L500.4050, L501.9520, L500.4100 ####[facility] [address] [place], [address] Calcium [Mass/Vol] 10.1 mg/dL Normal 7.6-11.0 [facility] Comment on above: Performed By: #### L 100.0100, L500.4050, L501.9520, L500.4100 ####[facility] [address] [place], [address] Chloride [Moles/Vol] 102 mmol/L Normal 98-108 [facility] Comment on above: Performed By: #### L 100.0100, L500.4050, L501.9520, L500.4100 ####[facility] [address] [place], [address] CO2 [Moles/Vol] 23.4 mmol/L Normal 21.0-32.0 [facility] Comment on above: Performed By: #### L 100.0100, L500.4050, L501.9520, L500.4100 ####[facility] [address] [place], [address] Creatinine [Mass/Vol] 0.71 mg/dL Normal 0.70-1.20 [facility] Comment on above: Performed By: #### L 100.0100, L500.4050, L501.9520, L500.4100 ####[facility] [address] [place], [address] GAP 12 Normal 5-15 [facility] Comment on above: Performed By: #### L 100.0100, L500.4050, L501.9520, L500.4100 ####[facility] [address] [place], [address] GFR/1.73 sq M.predicted among non-blacks MDRD (S/P/Bld) [Vol rate/Area] 107 mL/min/{1.73_m2} Normal >60 [facility] Comment on above: Result Comment: mL/m in/1.73m2 CKD-EPI Creatinine Equation (2020) Performed By: #### L 100.0100, L500.4050, L501.9520, L500.4100 ####[facility] [address] [place], [address] Globulin (S) [Mass/Vol] 2.7 g/dL Normal 2.2-4.2 [facility] Comment on above: Performed By: #### L 100.0100, L500.4050, L501.9520, L500.4100 ####[facility] [address] [place], [address] Glucose [Mass/Vol] 84 mg/dL Normal 70-99 [facility] Comment on above: Performed By: #### L 100.0100, L500.4050, L501.9520, L500.4100 ####[facility] [address] [place], [address] Potassium [Moles/Vol] 4.4 mmol/L Normal 3.3-5.1 [facility] Comment on above: Performed By: #### L 100.0100, L500.4050, L501.9520, L500.4100 ####[facility] [address] [place], [address] Sodium [Moles/Vol] 138 mmol/L Normal 133-145 [facility] Comment on above: Performed By: #### L 100.0100, L500.4050, L501.9520, L500.4100 ####[facility] [address] [place], [address] T PROT 7.2 g/dL Normal 5.9-8.4 [facility] Comment on above: Performed By: #### L 100.0100, L500.4050, L501.9520, L500.4100 ####[facility] [address] [place] [place], [address] Urea nitrogen [Mass/Vol] 12 mg/dL Normal 4-19 [facility] Comment on above: Performed By: #### L 100.0100, L500.4050, L501.9520, L500.4100 ####[facility] [address] [place] [place], [address] Eosinophil percentageOrdered By: CAROLE MOORE on 04-05-2025 Eosinophils/100 WBC (Bld) 2.7 % 0-5 [facility] Erythrocyte distribution wid th ratioOrdered By: CAROLE MOORE on 04-05-2025 Erythrocyte distribution width (RBC) [Ratio] 11.9 % 11.6-14.6 [facility] Erythrocyte distribution wid th standard deviationOrdered By: CAROLE MOORE on 04-05-2025 Erythrocyte distribution width (RBC) [Ratio] 43.5 fl 35.1-43.9 [facility] Glomerular filtration rate ( GFR) estimation/1.73 sq m using serum, plasma, or whole bOrdered By: CAROLE MOORE on 04-05-2025 GFR/1.73 sq M.predicted among non-blacks MDRD (S/P/Bld) [Vol rate/Area] 107 mL/min/{1.73_m2} >60 [facility] Comment on above: mL/min/1.73m2 CKD-EP I Creatinine Equation (2020) Hematocrit Auto (Bld) [Volum e fraction]Ordered By: CAROLE MOORE on 04-05-2025 Hematocrit (Bld) [Volume fraction] 42.8 % 37-47 [facility] Hemoglobin measurementOrdere d By: CAROLE MOORE on 04-05-2025 Hemoglobin (Bld) [Mass/Vol] 14.6 g/dL 12.0-15.0 [facility] Immature granulocytes/100 WB C Auto (Bld)Ordered By: CAROLE MOORE on 04-05-2025 Immature granulocytes/100 WBC (Bld) 0.700 % 0.0-0.9 [facility] Comment on above: IG% - Immature Granu locytes (promyelocytes, myelocytes and metamyelocytes) > 1% indicates that a LEFT SHIFT is Present. LDL calc ser/plasOrdered By: CAROLE MOORE on 04-05-2025 Cholesterol in LDL [Mass/Vol] 116 mg/dL [facility] Comment on above: Oiwxsdfhlg=016-954 m g/dL & Higher Rwhc=128 mg/dL or greater Laboratory - Chemistry and C hemistry - challengeOrdered By: CAROLE MOORE on 04-05-2025 AST [Catalytic activity/Vol] 17 U/L <32 [facility] Lipid Profileon 04-05-2025 CHOL:HDL 3.53 Normal [facility] Comment on above: Performed By: #### L 100.0100, L500.4050, L501.9520, L500.4100 ####[facility] [address] [place], [address] Cholesterol [Mass/Vol] 193 mg/dL Normal <=200 [facility] Comment on above: Result Comment: Chol esterol level, Desirable <200 mg/dL Borderline high cholesterol 200-239 mg/dL High cholesterol >=240 mg/dL Recommendations of the NCEP Adult Treatment Panel for the following risk-cutoff thresholds for the [place] population. Performed By: #### L 100.0100, L500.4050, L501.9520, L500.4100 ####[facility] [address] [place], [address] Cholesterol in HDL [Mass/Vol] 55 mg/dL Normal [facility] Comment on above: Result Comment: [place] onal Cholesterol Education Program (NCEP) guidelines: <40 mg/dL: Low HDL-cholesterol (major risk factor for CHD) >= 60 mg/dL: High HDL-cholesterol (negative risk factor for CHD) HDL-cholesterol is affected by a number of factors, e.g. smoking, exercise, hormones, sex and age. Performed By: #### L 100.0100, L500.4050, L501.9520, L500.4100 ####[facility] [address] [place], [address] Cholesterol in LDL [Mass/Vol] 116 mg/dL Normal [facility] Comment on above: Result Comment: Bord menvtn=461-882 mg/dL Higher Gmgv=945 mg/dL or greater Performed By: #### L 100.0100, L500.4050, L501.9520, L500.4100 ####[facility] [address] [place], [address] Cholesterol in VLDL [Mass/Vol] 22 mg/dL Normal 5-40 [facility] Comment on above: Performed By: #### L 100.0100, L500.4050, L501.9520, L500.4100 ####[facility] [address] [place], [address] Triglyceride [Mass/Vol] 111 mg/dL Normal [facility] Comment on above: Result Comment: The drugs N-Acetylcysteine and Metamizole may falsely depress this assay. Normal range: <150 mg/dL Borderline High: 150-199 mg/dL High: 200-499 mg/dL Very High: >500 mg/dL Performed By: #### L 100.0100, L500.4050, L501.9520, L500.4100 ####[facility] [address] [place], [address] MCV (mean corpuscular volume ) determinationOrdered By: CAROLE MOORE on 04-05-2025 MCV (RBC) [Entitic vol] 99.1 fL High 81-99 [facility] Mean corpuscular hemoglobin (MCH) determinationOrdered By: CAROLE MOORE on 04-05-2025 MCH (RBC) [Entitic mass] 33.8 pg High 27.0-32.0 [facility] Mean corpuscular hemoglobin concentration (MCHC) determinationOrdered By: CAROLE MOORE on 04-05-2025 MCHC (RBC) [Mass/Vol] 34.1 g/dL 32-36 [facility] Mean platelet volume determi nationOrdered By: CAROLE MOORE on 04-05-2025 Platelet mean volume (Bld) [Entitic vol] 10.6 fL 6.2-12.0 [facility] Monocyte percentageOrdered B y: CAROLE MOORE on 04-05-2025 Monocytes/100 WBC (Bld) 5.3 % 0-10 [facility] Neutrophil percentageOrdered By: CAROLE MOORE on 04-05-2025 Neutrophils/100 WBC (Bld) 75.2 % High 47-70 [facility] Nucleated red blood cell per centageOrdered By: CAROLE MOORE on 04-05-2025 Nucleated RBC/100 WBC (Bld) [Ratio] 0 % 0-5 [facility] Platelet countOrdered By: ESTEBAN MOORE on 04-05-2025 Platelets (Bld) [#/Vol] 247 10*3/uL 150-450 [facility] Potassium measurement (mass/ volume)Ordered By: CAROLE MOORE on 04-05-2025 Potassium (Unsp spec) [Mass/Vol] 4.4 mmol/L 3.3-5.1 [facility] RBC Auto (Bld) [#/Vol]Ordere d By: CAROLE MOORE on 04-05-2025 RBC (Bld) [#/Vol] 4.32 10*6/uL 4.2-5.4 [facility] Screening total cholesterol/ high density lipoprotein (HDL) cholesterol ratioOrdered By: CAROLE MOORE on 04-05-2025 Cholesterol.total/Jose Ramon sterol in HDL [Mass ratio] 3.53 {ratio} [facility] Serum creatinine measurement (mass/volume)Ordered By: CAROLE MOORE on 04-05-2025 Creatinine [Mass/Vol] 0.71 mg/dL 0.70-1.20 [facility] Serum globulin measurementOr dered By: CAROLE MOORE on 04-05-2025 Globulin (S) [Mass/Vol] 2.7 g/dL 2.2-4.2 [facility] Serum glucose measurement (m ass/volume)Ordered By: CAROLE MOORE on 04-05-2025 Glucose [Mass/Vol] 84 mg/dL 70-99 [facility] Serum or plasma alanine mazariegos otransferase (ALT) measurementOrdered By: CAROLE MOORE on 04-05-2025 ALT [Catalytic activity/Vol] 17 U/L <35 [facility] Serum or plasma albumin osiris urement (mass/volume)Ordered By: CAROLE MOORE on 04-05-2025 Albumin [Mass/Vol] 4.6 g/dL 3.5-5.0 [facility] Serum or plasma albumin/glob ulin mass ratioOrdered By: CAROLE MOORE 04-05-2025 Albumin/Globulin [Mass ratio] 1.7 {ratio} 0.9-2.4 [facility] Serum or plasma alkaline harvey sphatase measurementOrdered By: CAROLEShan MOORE on 04-05-2025 ALP [Catalytic activity/Vol] 45 U/L 35-104 [facility] Serum or plasma calcium osiris urement (mass/volume)Ordered By: CAROLE MOORE 04-05-2025 Calcium [Mass/Vol] 10.1 mg/dL 7.6-11.0 [facility] Serum or plasma cholesterol in HDL measurement (mass/volume)Ordered By: CAROLE MOORE 04-05-2025 Cholesterol in HDL [Mass/Vol] 55 mg/dL >40 [facility] Comment on above: National Cholesterol Education Program (NCEP) guidelines:<40 mg/dL: Low HDL-cholesterol (major risk factor for CHD)>= 60 mg/dL: High HDL-cholesterol (negative risk factor for CHD)HDL-cholesterol is affected by a number of factors, e.g. smoking, exercise, hormones, sex and age. Serum or plasma cholesterol measurement (mass/volume)Ordered By: CAROLE MOORE 04-05-2025 Cholesterol [Mass/Vol] 193 mg/dL <201 [facility] Comment on above: Cholesterol level, D esirable <200 mg/dLBorderline high cholesterol 200-239 mg/dLHigh cholesterol >=240 mg/dLRecommendations of the NCEP Adult Treatment Panel for the following risk-cutoff thresholds for the [place] population. Serum or plasma urea nitroge n measurement (mass/volume)Ordered By: CAROLE MOORE 04-05-2025 Urea nitrogen [Mass/Vol] 12 mg/dL 4-19 [facility] Sodium levelOrdered By: CAROLE MOORE 04-05-2025 Sodium [Moles/Vol] 138 mmol/L 133-145 [facility] TSH DL <= 0.005 mIU/L QnOrde red By: CAROLE MOORE on 04-05-2025 TSH Qn 1.870 uIU/mL 0.300-4.200 [facility] Thyroid Stim Hormone (TSH)on 04-05-2025 TSH 1.870 uIU/mL Normal 0.300-4.200 [facility] Comment on above: Performed By: #### L 100.0100, L500.4050, L501.9520, L500.4100 ####[facility] [address] [place], [address] Total proteinOrdered By: CAROLE MOORE on 04-05-2025 Protein [Mass/Vol] 7.2 g/dL 5.9-8.4 [facility] Triglycerides measurementOrd ered By: CAROLE MOORE on 04-05-2025 Triglyceride [Mass/Vol] 111 mg/dL <199 [facility] Comment on above: The drugs N-Acetylcy steine and Metamizole may falsely depress this assay. Normal range: <150 mg/dLBorderline High: 150-199 mg/dLHigh: 200-499 mg/dLVery High: >500 mg/dL White blood cell (WBC) count Ordered By: CAROLE MOORE on 04-05-2025 WBC (Bld) [#/Vol] 10.8 10*3/uL 4.4-11.0 [facility] CNOVon 04-03-2025 CNOV Office Visit (INTMWS ) JOAN FOLEY ([id number]) 1980 F Date Time Provider Department 04/03/25 4:40 PM CAROLE MOORE INTMWS During your visit today, we recorded the following information about you: Pulse Respiration Blood pressure Weight 90/minute 16/minute 122/68 65.3 kg Older, Carole, TK.CLAIMS SUPERVISOR 04/03/2025 5:10 PM Signed CC: Patient presents with: Headache: Discuss migraines HPI Joan Foley is a 45 year old female who presents today for annual exam and to discuss migraines. Recording using frooly software for draft documentation of the visit was discussed with the patient/authorized field representatives director; all questions welcomed and answered. Patient/authorized field representatives director agreed to proceed Migraines: - Experiencing migraines [...] bxs LAPS SURG CHOLECYSTECTOMY W/CHOLANGIOGRAPHY 04/24/2014 Normal [facility] LIVER SURGERY HX 10/2018 ABLATION FOR MASS [...] General Ap (more content not included)... Normal [facility] CNOVon 12-11-2024 CNOV Office Visit (UCWSTR ) JOAN FOLEY ([id number]) 1980 F Date Time Provider Department 12/11/24 5:00 PM [facility]SAY [facility] During your visit today, we recorded the following information about you: Temperature Pulse Respiration Blood pressure 98.6 degrees 100/minute 18/minute 122/80 Weight 71.4 kg Lindsay Crockett APRN.CLAIMS SUPERVISOR 12/11/2024 5:04 PM Signed This note was created using NoteWriter. Subjective Joan Foley is a 44 year old female. 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 No speech and language assistant was used. Flu Like Symptoms This is [...] bxs LAPS SURG CHOLECYSTECTOMY W/CHOLANGIOGRAPHY 04/24/2014 Normal [facility] LIVER SURGERY HX 10/2018 ABLATION FOR MASS [...] headaches. Negati (more content not included)... Normal [facility] Basic Metabolic Profile (BMP )on 11-28-2024 BUN/CRE 15.8 RATIO Normal 10-20 [facility] Comment on above: Performed By: #### L 100.0100, L501.5200, L500.2500 ####[facility] [address] [place], [address] CA,Total 9.3 mg/dL Normal 8.5-10.1 [facility] Comment on above: Performed By: #### L 100.0100, L501.5200, L500.2500 ####[facility] [address] [place], [address] Chloride [Moles/Vol] 106 mmol/L Normal 98-107 [facility] Comment on above: Performed By: #### L 100.0100, L501.5200, L500.2500 ####[facility] [address] [place], [address] CO2 [Moles/Vol] 27.0 mmol/L Normal 21.0-32.0 [facility] Comment on above: Performed By: #### L 100.0100, L501.5200, L500.2500 ####[facility] [address] [place], [address] Creatinine [Mass/Vol] 0.76 mg/dL Normal 0.55-1.02 [facility] Comment on above: Result Comment: The validity of the calculated GFR GFRAA in patients over 70 years has not been determined. Clinical correlation is essential. Performed By: #### L 100.0100, L501.5200, L500.2500 ####[facility] [address] [place], [address] ECRCL 92.85 ml/min Normal [facility] Comment on above: Performed By: #### L 100.0100, L501.5200, L500.2500 ####[facility] [address] [place], [address] EST GFR - AA 106 mL/min Normal >60 [facility] Comment on above: Result Comment: Afri can Ukrainian GFR Calc Performed By: #### L 100.0100, L501.5200, L500.2500 ####[facility] [address] [place], [address] GAP 5 Normal 5-15 [facility] Comment on above: Performed By: #### L 100.0100, L501.5200, L500.2500 ####[facility] [address] [place], [address] GFR/1.73 sq M.predicted among non-blacks MDRD (S/P/Bld) [Vol rate/Area] 88 mL/min/{1.73_m2} Normal >60 [facility] Comment on above: Result Comment: Non- GFR Calc Performed By: #### L 100.0100, L501.5200, L500.2500 ####[facility] [address] [place], [address] Glucose [Mass/Vol] 101 mg/dL Normal 74-106 [facility] Comment on above: Result Comment: Fast ing Glucose result from 100 to 125 mg/dL suggests IMPAIRED HOMEOSTASIS per A.D.A. criteria. Performed By: #### L 100.0100, L501.5200, L500.2500 ####[facility] [address] [place], [address] Potassium [Moles/Vol] 4.1 mmol/L Normal 3.5-5.1 [facility] Comment on above: Performed By: #### L 100.0100, L501.5200, L500.2500 ####[facility] [address] [place], [address] Sodium [Moles/Vol] 137 mmol/L Normal 136-145 [facility] Comment on above: Performed By: #### L 100.0100, L501.5200, L500.2500 ####[facility] [address] [place], [address] Urea nitrogen [Mass/Vol] 12 mg/dL Normal 7-18 [facility] Comment on above: Performed By: #### L 100.0100, L501.5200, L500.2500 ####[facility] [address] [place], [address] CBC W/Diff, Automatedon 02- Absolute Lymph 2.86 X10 3/uL Normal 0.83-4.51 [facility] Comment on above: Performed By: #### L 100.0100, L501.5200, L500.2500 #### [facility] [address] [place], [address] Absolute Neut 4.4 X10 3/uL Normal 2.0-7.7 [facility] Comment on above: Performed By: #### L 100.0100, L501.5200, L500.2500 #### [facility] [address] [place], [address] Basophils/100 WBC (Bld) 0.8 % Normal 0-1 [facility] Comment on above: Performed By: #### L 100.0100, L501.5200, L500.2500 #### [facility] [address] [place], [address] Eosinophils/100 WBC (Bld) 3.5 % Normal 0-5 [facility] Comment on above: Performed By: #### L 100.0100, L501.5200, L500.2500 #### [facility] [address] [place], [address] Erythrocyte distribution width (RBC) [Ratio] 11.9 % Normal 11.6-14.6 [facility] Comment on above: Performed By: #### L 100.0100, L501.5200, L500.2500 #### [facility] [address] [place], [address] Hematocrit (Bld) [Volume fraction] 44.7 % Normal 37-47 [facility] Comment on above: Performed By: #### L 100.0100, L501.5200, L500.2500 #### [facility] [address] [place], [address] Hemoglobin (Bld) [Mass/Vol] 15.1 g/dL High 12.0-15.0 [facility] Comment on above: Performed By: #### L 100.0100, L501.5200, L500.2500 #### [facility] [address] [place], [address] IG% 1.800 High 0.0-0.9 [facility] Comment on above: Result Comment: IG% - Immature Granulocytes (promyelocytes, myelocytes and metamyelocytes) > 1% indicates that a LEFT SHIFT is Present. Performed By: #### L 100.0100, L501.5200, L500.2500 #### [facility] [address] [place], [address] Lymphocytes/100 WBC (Bld) 34.5 % Normal 19-41 [facility] Comment on above: Performed By: #### L 100.0100, L501.5200, L500.2500 #### [facility] [address] [place], [address] MCH (RBC) [Entitic mass] 33.0 pg High 27.0-32.0 [facility] Comment on above: Performed By: #### L 100.0100, L501.5200, L500.2500 #### [facility] [address] [place], [address] MCHC (RBC) [Mass/Vol] 33.8 g/dL Normal 32-36 [facility] Comment on above: Performed By: #### L 100.0100, L501.5200, L500.2500 #### [facility] [address] [place], [address] MCV (RBC) [Entitic vol] 97.6 fL Normal 81-99 [facility] Comment on above: Performed By: #### L 100.0100, L501.5200, L500.2500 #### [facility] [address] [place], [address] Monocytes/100 WBC (Bld) 6.4 % Normal 0-10 [facility] Comment on above: Performed By: #### L 100.0100, L501.5200, L500.2500 #### [facility] [address] [place], [address] Neutrophils/100 WBC (Bld) 53.0 % Normal 47-70 [facility] Comment on above: Performed By: #### L 100.0100, L501.5200, L500.2500 #### [facility] [address] [place], [address] Nucleated RBC (Bld) [#/Vol] 0 10*3/uL Normal 0-5 [facility] Comment on above: Performed By: #### L 100.0100, L501.5200, L500.2500 #### [facility] [address] [place], [address] Platelet mean volume (Bld) [Entitic vol] 10.6 fL Normal 6.2-12.0 [facility] Comment on above: Performed By: #### L 100.0100, L501.5200, L500.2500 #### [facility] [address] [place], [address] Platelets (Bld) [#/Vol] 228 10*3/uL Normal 150-450 [facility] Comment on above: Performed By: #### L 100.0100, L501.5200, L500.2500 #### [facility] [address] [place], [address] RBC (Bld) [#/Vol] 4.58 10*6/uL Normal 4.2-5.4 [facility] Comment on above: Performed By: #### L 100.0100, L501.5200, L500.2500 #### [facility] [address] [place], [address] RDW SD 43.1 fl Normal 35.1-43.9 [facility] Comment on above: Performed By: #### L 100.0100, L501.5200, L500.2500 #### [facility] [address] [place], [address] WBC (Bld) [#/Vol] 8.3 10*3/uL Normal 4.4-11.0 [facility] Comment on above: Performed By: #### L 100.0100, L501.5200, L500.2500 #### [facility] [address] [place], [address] Emergency Department Summary on 11-28-2024 Emergency Department Summary [facility] Medical Records Department [address] [place] [address] Emergency Department Summary 11/28/24 MR#: [id number] Acct: [id number] Name: JOAN FOLEY Rep #: [id number] : 1980 44 From: Antoine Conner DO [...] symptoms and therefore comes in for evaluation [facility] Medical History Migraines Hypertension NSVT (nonsustained ventricular [...] type: c (more content not included)... Normal [facility] M100.678on 11-28-2024 M100.678 SARS-CoV-2 (COVID 19 ) Negative INFLUENZA A Negative INFLUENZA B Negative RSV PCR Negative Normal [facility] Comment on above: Performed By: #### M 100.678 #### [facility] [address] [facility] [place], [place], [address] Magnesiumon 11-28-2024 Magnesium [Mass/Vol] 2.1 mg/dL Normal 1.6-2.6 [facility] Comment on above: Performed By: #### L 100.0100, L501.5200, L500.2500 ####[facility] [address] [facility] [place], [place], [address] CNCOon 10-31-2024 CNCO Letter Text Normal [facility] CNOVon 09-25-2024 CNOV Office Visit (UCWSTR ) JOAN FOLEY ([id number]) 1980 F Date Time Provider Department 09/25/24 1:30 PM PERRY BALLARD [facility] During your visit today, we recorded the following information about you: Temperature Pulse Respiration Blood pressure 98.6 degrees 96/minute 18/minute 112/76 Weight 71.5 kg Perry Ballard PA-C 09/25/2024 3:05 PM Signed This note was created using AddSearchriter. Subjective Joan Foley is a 44 year [...] bxs LAPS SURG CHOLECYSTECTOMY W/CHOLANGIOGRAPHY 04/24/2014 Normal [facility] LIVER SURGERY HX 10/2018 ABLATION FOR MASS [...] sounds: Normal (more content not included)... Normal [facility] XR CHEST 2V FRONTAL/LATon XR CHEST 2V [...] degenerative changes. IMPRESSION: No acute radiographic abnormality. Rivet Hole Machine Operator: COLLINS Transcribe Date/Time: Sep 25 2024 2:02P Dictated by : KELSIE CARDENAS MD This examination was interpreted and the report reviewed and electronically signed by: KELSIE CARDENAS MD on Sep 25 2024 2:03PM EST [id number] Normal [facility] XR Chest PA and Lateralon IMPRESSION: No acute radiographic abnormality. Rivet Hole Machine Operator: COLLINS Transcribe Date/Time: Sep 25 2024 2:02P [...] Mild degenerative changes. DIVISION OF RADIOLOGY Provider, [facility] - 09/25/2024 * * *Final Report* * [...] changes. IMPRESSION IMPRESSION: No acute radiographic abnormality. Rivet Hole Machine Operator: PSCB Transcribe Date/Time: Sep 25 2024 2:02P Dictated by : KELSIE CARDENAS MD This examination was interpreted and the report reviewed and electronically signed by: KELSIE CARDENAS MD on Sep 25 2024 2:03PM [facility] Radiology Study observation (narrative) Jessica alcaraz [facility] XR Chest PA and LateralOrder ed By: Ccf Provider on 09-25-2024 [facility] 12 Lead EKGon 04-14-2024 12 Lead EKG [facility] Cardiovascular Services [address] [place] [address] 12 Lead EKG 04/14/24 1619 MR#: [id number] Acct: [id number] Name: JOAN FOLEY #: [id number] : 1980 44 From: Tian Rivera MD [...] normal ECG Confirmed by Tian Rivera ([id number]), state editor LA NENA RANGEL ([id number]) on 04/16/2024 1:45:07 PM Referred By: Confirmed By:Tian Rivera 04/16/24 1345 Date Tian Rivera MD CC: Dr. Romaine Dawkins MD; Dr. Nicky Knight MD; RASHIDA Welsh Signed Normal [facility] Abdomen/Pelvis without Conto n 04-14-2024 Abdomen/Pelvis without Cont [facility] Imaging Services [address] [place] [address] Abdomen/Pelvis without Cont MR#: [id number] Acct: [id number] Name: JOAN FOLEY Rep #: [id number] : 1980 F 44 From: Ritesh Cortez MD PCP: Dr. Nicky Knight MD Status: REG ER Study: Abdomen/Pelvis without Cont Date of Exam: 04/02 Exam# [id number] Ordering Dr: Bertha Spaulding [id number] EXAM: CT ABDOMEN AND PELVIS WITHOUT INTRAVENOUS [...] CC: Dr. Nicky Knight MD; RASHIDA Welsh Rivet Hole Machine Operator: Signed Normal [facility] CBC W/Diff, Automatedon 07-0 Absolute Lymph 2.41 X10 3/uL Normal 0.83-4.51 [facility] Comment on above: Performed By: #### L 500.4050, L501.2450, L100.0100 ####[facility] [address] [place], [address] Absolute Neut 11.7 X10 3/uL High 2.0-7.7 [facility] Comment on above: Performed By: #### L 500.4050, L501.2450, L100.0100 ####[facility] [address] [place], [address] Basophils/100 WBC (Bld) 0.5 % Normal 0-1 [facility] Comment on above: Performed By: #### L 500.4050, L501.2450, L100.0100 ####[facility] [address] [place], [address] Eosinophils/100 WBC (Bld) 1.7 % Normal 0-5 [facility] Comment on above: Performed By: #### L 500.4050, L501.2450, L100.0100 ####[facility] [address] [place], [address] Erythrocyte distribution width (RBC) [Ratio] 12.0 % Normal 11.6-14.6 [facility] Comment on above: Performed By: #### L 500.4050, L501.2450, L100.0100 ####[facility] [address] [place], [address] Hematocrit (Bld) [Volume fraction] 42.1 % Normal 37-47 [facility] Comment on above: Performed By: #### L 500.4050, L501.2450, L100.0100 ####[facility] [address] [place], [address] Hemoglobin (Bld) [Mass/Vol] 14.3 g/dL Normal 12.0-15.0 [facility] Comment on above: Performed By: #### L 500.4050, L501.2450, L100.0100 ####[facility] [address] [place], [address] IG% 0.700 Normal 0.0-0.9 [facility] Comment on above: Result Comment: IG% - Immature Granulocytes (promyelocytes, myelocytes and metamyelocytes) > 1% indicates that a LEFT SHIFT is Present. Performed By: #### L 500.4050, L501.2450, L100.0100 ####[facility] [address] [place], [address] Lymphocytes/100 WBC (Bld) 15.9 % Low 19-41 [facility] Comment on above: Performed By: #### L 500.4050, L501.2450, L100.0100 ####[facility] [address] [place], [address] MCH (RBC) [Entitic mass] 33.4 pg High 27.0-32.0 [facility] Comment on above: Performed By: #### L 500.4050, L501.2450, L100.0100 ####[facility] [address] [place], [address] MCHC (RBC) [Mass/Vol] 34.0 g/dL Normal 32-36 [facility] Comment on above: Performed By: #### L 500.4050, L501.2450, L100.0100 ####[facility] [address] [place], [address] MCV (RBC) [Entitic vol] 98.4 fL Normal 81-99 [facility] Comment on above: Performed By: #### L 500.4050, L501.2450, L100.0100 ####[facility] [address] [place], [address] Monocytes/100 WBC (Bld) 4.5 % Normal 0-10 [facility] Comment on above: Performed By: #### L 500.4050, L501.2450, L100.0100 ####[facility] [address] [place], [address] Neutrophils/100 WBC (Bld) 76.7 % High 47-70 [facility] Comment on above: Performed By: #### L 500.4050, L501.2450, L100.0100 ####[facility] [address] [place], [address] Nucleated RBC (Bld) [#/Vol] 0 10*3/uL Normal 0-5 [facility] Comment on above: Performed By: #### L 500.4050, L501.2450, L100.0100 ####[facility] [address] [place], [address] Platelet mean volume (Bld) [Entitic vol] 9.9 fL Normal 6.2-12.0 [facility] Comment on above: Performed By: #### L 500.4050, L501.2450, L100.0100 ####[facility] [address] [place], [address] Platelets (Bld) [#/Vol] 262 10*3/uL Normal 150-450 [facility] Comment on above: Performed By: #### L 500.4050, L501.2450, L100.0100 ####[facility] [address] [place], [address] RBC (Bld) [#/Vol] 4.28 10*6/uL Normal 4.2-5.4 [facility] Comment on above: Performed By: #### L 500.4050, L501.2450, L100.0100 ####[facility] [address] [place], [address] RDW SD 43.9 fl Normal 35.1-43.9 [facility] Comment on above: Performed By: #### L 500.4050, L501.2450, L100.0100 ####[facility] [address] [place], [address] WBC (Bld) [#/Vol] 15.2 10*3/uL High 4.4-11.0 [facility] Comment on above: Performed By: #### L 500.4050, L501.2450, L100.0100 ####[facility] [address] [place], [address] Comprehensive Metabolic Prof ilon 04-14-2024 Albumin [Mass/Vol] 4.0 g/dL Normal 3.2-5.0 [facility] Comment on above: Performed By: #### L 500.4050, L501.2450, L100.0100 ####[facility] [address] [place], [address] Albumin/Globulin [Mass ratio] 1.2 {ratio} Normal 0.9-2.4 [facility] Comment on above: Performed By: #### L 500.4050, L501.2450, L100.0100 ####[facility] [address] [place], [address] ALK P 58 U/L Normal 45-117 [facility] Comment on above: Performed By: #### L 500.4050, L501.2450, L100.0100 ####[facility] [address] [place], [address] ALT [Catalytic activity/Vol] 60 U/L High 13-56 [facility] Comment on above: Performed By: #### L 500.4050, L501.2450, L100.0100 ####[facility] [address] [place], [address] AST [Catalytic activity/Vol] 30 U/L Normal 15-37 [facility] Comment on above: Performed By: #### L 500.4050, L501.2450, L100.0100 ####[facility] [address] [place], [address] Bilirubin [Mass/Vol] 0.30 mg/dL Normal 0.20-1.00 [facility] Comment on above: Result Comment: For patients on eltrombopag therapy, use of Dimension [place] TBIL is not recommended. Performed By: #### L 500.4050, L501.2450, L100.0100 ####[facility] [address] [place], [address] BUN/CRE 17.2 RATIO Normal 10-20 [facility] Comment on above: Performed By: #### L 500.4050, L501.2450, L100.0100 ####[facility] [address] [place], [address] CA,Total 9.3 mg/dL Normal 8.5-10.1 [facility] Comment on above: Performed By: #### L 500.4050, L501.2450, L100.0100 ####[facility] [address] [place], [address] Chloride [Moles/Vol] 104 mmol/L Normal 98-107 [facility] Comment on above: Performed By: #### L 500.4050, L501.2450, L100.0100 ####[facility] [address] [place], [address] CO2 [Moles/Vol] 25.0 mmol/L Normal 21.0-32.0 [facility] Comment on above: Performed By: #### L 500.4050, L501.2450, L100.0100 ####[facility] [address] [place], [address] Creatinine [Mass/Vol] 0.81 mg/dL Normal 0.55-1.02 [facility] Comment on above: Result Comment: The validity of the calculated GFR GFRAA in patients over 70 years has not been determined. Clinical correlation is essential. Performed By: #### L 500.4050, L501.2450, L100.0100 ####[facility] [address] [place], [address] ECRCL 88.13 ml/min Normal [facility] Comment on above: Performed By: #### L 500.4050, L501.2450, L100.0100 ####[facility] [address] [place], [address] EST GFR - AA 99 mL/min Normal >60 [facility] Comment on above: Result Comment: Afri can Ukrainian GFR Calc Performed By: #### L 500.4050, L501.2450, L100.0100 ####[facility] [address] [place], [address] GAP 8 Normal 5-15 [facility] Comment on above: Performed By: #### L 500.4050, L501.2450, L100.0100 ####[facility] [address] [place], [address] GFR/1.73 sq M.predicted among non-blacks MDRD (S/P/Bld) [Vol rate/Area] 82 mL/min/{1.73_m2} Normal >60 [facility] Comment on above: Result Comment: Non- GFR Calc Performed By: #### L 500.4050, L501.2450, L100.0100 ####[facility] [address] [place], [address] Globulin (S) [Mass/Vol] 3.2 g/dL Normal 2.2-4.2 [facility] Comment on above: Performed By: #### L 500.4050, L501.2450, L100.0100 ####[facility] [address] [place], [address] Glucose [Mass/Vol] 82 mg/dL Normal 74-106 [facility] Comment on above: Performed By: #### L 500.4050, L501.2450, L100.0100 ####[facility] [address] [place], [address] Potassium [Moles/Vol] 4.1 mmol/L Normal 3.5-5.1 [facility] Comment on above: Performed By: #### L 500.4050, L501.2450, L100.0100 ####[facility] [address] [place], [address] Sodium [Moles/Vol] 137 mmol/L Normal 136-145 [facility] Comment on above: Performed By: #### L 500.4050, L501.2450, L100.0100 ####[facility] [address] [place], [address] T PROT 7.2 g/dL Normal 6.4-8.2 [facility] Comment on above: Performed By: #### L 500.4050, L501.2450, L100.0100 ####[facility] [address] [place], [address] Urea nitrogen [Mass/Vol] 14 mg/dL Normal 7-18 [facility] Comment on above: Performed By: #### L 500.4050, L501.2450, L100.0100 ####[facility] [address] [place], [address] D-Dimer Quantitative (DVT/PE )on 04-14-2024 D-DIMER QUANT < 0.27 Low 0.27-0.49 [facility] Comment on above: Result Comment: NORM AL D-Dimer level (<0.50) indicates no DVT or PE. Performed By: #### L 300.8000 #### [facility] [address] [place] [place], [address] Emergency Department Summary on 04-14-2024 Emergency Department Summary [facility] Medical Records Department [address] [place] [address] Emergency Department Summary 04/14/24 MR#: [id number] Acct: [id number] Name: JOAN FOLEY Rep #: [id number] : 1980 44 From: Romaine Dawkins MD [...] 85 Respiratory (more content not included)... Normal [facility] L501.4020on 04-14-2024 TROPONIN-I HS < 3 Low 3.0-54.0 [facility] Comment on above: Order Comment: 'TROP ' Serial specimen #1, #2 or #3: 1 Result Comment: Plea se Note: New Test Units and Gender Specific Reference Ranges. For more information see Policy Stat Procedure [place] High Sensitivity Troponin (TNIH) and attachments. Performed By: #### L 501.4020 #### [facility] [address] [facility] [place], [place], [id number] Lipaseon 04-14-2024 Lipase [Catalytic activity/Vol] 40 U/L Normal 13-75 [facility] Comment on above: Result Comment: Plea se note: LIPASE revised reference range effective 23. New Lipase methodology. Expected to produce lower values than the previous assay method. NEW Reference Range: 13 - 75 U/L Performed By: #### L 500.4050, L501.2450, L100.0100 ####[facility] [address] [facility] [place], [address] ,Urineon 04-14-2024 Beta HCG ( test) Ql (U) Negative Normal [facility] Comment on above: Order Comment: COLLE CTOR TO SPECIFY Result Comment: Very dilute urine specimens, as indicated by a low specific gravity, may not contain field representatives director levels of hCG. If is still suspected, a first morning urine specimen should be collected 48 hours later and tested. Performed By: #### L 400.0001, L400.7600 #### [facility] [address] [place], [address] Urinalysis, Completeon 04-14 EPI,SQUAMOUS 0-5 SEEN Normal 5-10 [facility] Comment on above: Order Comment: MARYSOL CTOR TO SPECIFY Performed By: #### L 400.0001, L400.7600 #### [facility] [address] [place], [address] BACTERIA 0 SEEN Normal None Seen [facility] Comment on above: Order Comment: MARYSOL CTOR TO SPECIFY Performed By: #### L 400.0001, L400.7600 #### [facility] [address] [place], [address] Mucus Ql (Urine sed) 0 SEEN Normal [facility] Comment on above: Order Comment: MARYSOL CTOR TO SPECIFY Performed By: #### L 400.0001, L400.7600 #### [facility] [address] [place], [address] RBC 0 SEEN Normal 0-5 [facility] Comment on above: Order Comment: MARYSOL CTOR TO SPECIFY Performed By: #### L 400.0001, L400.7600 #### [facility] [address] [place], [address] WBC 0 SEEN Normal 0-5 [facility] Comment on above: Order Comment: MARYSOL CTOR TO SPECIFY Performed By: #### L 400.0001, L400.7600 #### [facility] [address] [place], [address] CT HEAD WO IV CONTRASTon CT HEAD [...] EST Patient Name: JOAN FOLEY : 1980 Exam [...] yesterday. Patient reports nausea and dizziness Normal [facility] Absolute lymphocyte countOrd ered By: Sakshi Akhtar on 04-25-2023 Lymphocytes Auto (Unsp spec) [#/Vol] 2.36 10*3/uL 0.83-4.51 [facility] Basophil percentageOrdered B y: Sakshi Akhtar on 04-25-2023 Basophils/100 WBC (Bld) 0.8 % 0-1 [facility] Chloride [Moles/Vol] 104 mmol/L 98-107 [facility] Eosinophils/100 WBC (Bld) 2.9 % 0-5 [facility] Glucose [Mass/Vol] 93 mg/dL 74-106 [facility] Neutrophils (Bld) [#/Vol] 8.4 10*3/uL 2.0-7.7 [facility] Neutrophils/100 WBC (Bld) 68.6 % 47-70 [facility] Potassium [Moles/Vol] 3.9 mmol/L 3.5-5.1 [facility] Sodium [Moles/Vol] 135 mmol/L 136-145 [facility] WBC (Bld) [#/Vol] 12.2 10*3/uL 4.4-11.0 [facility] Blood erythrocytes count (nu mber/volume)Ordered By: Sakshi Akhtar on 04-25-2023 RBC (Bld) [#/Vol] 3.96 10*6/uL 4.2-5.4 [facility] Blood hemoglobin measurement (mass/volume)Ordered By: Sakshi Akhtar on 04-25-2023 Hemoglobin (Bld) [Mass/Vol] 13.2 g/dL 12.0-15.0 [facility] Blood lymphocytes/100 leukoc ytesOrdered By: Sakshi Akhtar on 04-25-2023 Lymphocytes/100 WBC (Bld) 19.3 % 19-41 [facility] Blood monocytes/100 leukocyt esOrdered By: Sakshi Akhtar on 04-25-2023 Monocytes/100 WBC (Bld) 6.8 % 0-10 [facility] Blood platelet mean volumeOr dered By: Sakshi Akhtar on 04-25-2023 Platelet mean volume (Bld) [Entitic vol] 10.7 fL 6.2-12.0 [facility] Determination of erythrocyte mean corpuscular volume (MCV)Ordered By: Sakshi Akhtar on 04-25-2023 MCV (RBC) [Entitic vol] 100.8 fL 81-99 [facility] Hematocrit Auto (Bld) [Volum e fraction]Ordered By: Sakshi Akhtar on 04-25-2023 Hematocrit (Bld) [Volume fraction] 39.9 % 37-47 [facility] - Chemistry and C hemistry - challengeOrdered By: Sakshi Akhtar on 04-25-2023 CO2 [Moles/Vol] 25.0 mmol/L 21.0-32.0 [facility] Urea nitrogen/Creatinine [Mass ratio] 21.0 mg/mg 10-20 [facility] - Hematology and Cell countsOrdered By: Sakshi Akhtar on 04-25-2023 Erythrocyte distribution width (RBC) [Entitic vol] 45.5 fL 35.1-43.9 [facility] Erythrocyte distribution width (RBC) [Ratio] 12.2 % 11.6-14.6 [facility] Immature granulocytes/100 WBC (Bld) 1.600 % 0.0-0.9 [facility] Comment on above: IG% - Immature Granu locytes (promyelocytes, myelocytes and metamyelocytes) > 1% indicates that a LEFT SHIFT is Present. MCH (RBC) [Entitic mass] 33.3 pg 27.0-32.0 [facility] Nucleated RBC/100 WBC (Bld) [Ratio] 0 % 0-5 [facility] MCHC Auto (RBC) [Mass/Vol]Or dered By: Sakshi Akhtar on 04-25-2023 MCHC (RBC) [Mass/Vol] 33.1 g/dL 32-36 [facility] No Panel InformationOrdered By: Sakshi Akhtar on 04-25-2023 D-Dimer Quantitative (PE/DVT) < 0.27 FEU/ug/m 0.27-0.49 [facility] Comment on above: NORMAL D-Dimer level (<0.50) indicates no DVT or PE. Estimated Creatinine Clearance Calc 78.13 ml/min [facility] Estimated GFR (MDRD) Amer 100 mL/min >60 [facility] Comment on above: GFR Calc Estimated GFR (MDRD) Non-Af Amer 83 mL/min >60 [facility] Comment on above: Non- GFR Calc Troponin I High Sensitivity < 3 pg/mL 3.0-54.0 [facility] Comment on above: Please Note: New Geri t Units and Gender Specific Reference Ranges. For more information see Policy Stat Procedure [place] High Sensitivity Troponin (TNIH) and attachments. Platelets bldOrdered By: Blessing Akhtar on 04-25-2023 Platelets (Bld) [#/Vol] 225 10*3/uL 150-450 [facility] Serum or plasma calcium osiris urement (mass/volume)Ordered By: Sakshi Akhtar on 04-25-2023 Calcium [Mass/Vol] 9.5 mg/dL 8.5-10.1 [facility] Serum or plasma creatinine m easurement (mass/volume)Ordered By: Sakshi Akhtar on 04-25-2023 Creatinine [Mass/Vol] 0.81 mg/dL 0.55-1.02 [facility] Comment on above: The validity of the calculated GFR & GFRAA in patients over 70 years has not been determined. Clinical correlation is essential. Serum or plasma urea nitroge n measurement (mass/volume)Ordered By: Sakshi Akhtar on 04-25-2023 Urea nitrogen [Mass/Vol] 17 mg/dL 7-18 [facility] Thin prep Papanicolaou smear with manual screeningOrdered By: Sakshi Akhtar on 04-25-2023 Thin prep Papanicolaou smear with manual screening 6 5-15 [facility] XR KNEE GENERAL 4V AP BOTH/P A BOTH/LAT/MERC LEFTon 04-11-2023 [facility] XR Knee - left 4 Viewson IMPRESSION: Small loose body in the region of the left tibial spines may be related to mild degenerative changes though sequela of acute injury with tiny chip fracture not entirely excluded. Rivet Hole Machine Operator: PSCWilber Transcribe Date/Time: Apr 11 2023 12:28P Dictated by : KELSIE CARDENAS MD This examination was interpreted and the report reviewed and electronically signed by: KELSIE CARDENAS MD on Apr 11 2023 12:31PM [facility] DIVISION OF RADIOLOGY * * *Final [...] joint space narrowing. DIVISION OF RADIOLOGY Provider, [facility] - 04/11/2023 * * *Final Report* * [...] with tiny chip fracture not entirely excluded. Rivet Hole Machine Operator: COLLINS Transcribe Date/Time: Apr 11 2023 12:28P Dictated by : KELSIE CARDENAS MD This examination was interpreted and the report reviewed and electronically signed by: KELSIE CARDENAS MD on Apr 11 2023 12:31PM EST [facility] Radiology Study observation (narrative) Jessica Penny XR Knee - left 4 ViewsOrdere d By: Ccf Provider on 04-11-2023 [facility] ALMA DIAG W EVELIN RIGHTon 06-2 [facility] ALMA SCREENINGon 02-10-2023 [facility] MR Brain WO and W contrast [...] any questions regarding this interpretation, please call [phone]. If you are unable to reach us at the number above, please feel free to contact [facility] at [phone]. DIVISION OF RADIOLOGY * * *Final Report* * * DATE OF EXAM: Jan 28 2023 12:35PM [facility] 0295 - MRI BRAIN WWO CONTRAST / [...] tissues are unremarkable. DIVISION OF RADIOLOGY Provider, [facility] - 01/31/2023 * * *Final Report* * * DATE OF EXAM: Jan 28 2023 12:35PM [facility] 0295 - MRI BRAIN [facility] CONTRAST / PROCEDURE REASON: INTRACTABLE HEADACHE, THUNDERCLAP [...] any questions regarding this interpretation, please call [phone]. If you are unable to reach us at the number above, please feel free to contact [facility] eRadiology at [phone]. [facility] MRA Head vessels WO contrast on 01-31-2023 [...] any questions regarding this interpretation, please call [phone]. If you are unable to reach us at the number above, please feel free to contact [facility] at [phone]. DIVISION OF RADIOLOGY * * *Final Report* * * DATE OF EXAM: Jan 28 2023 12:14PM [facility] 0272 - MRA BRAIN WO IVCON / [...] arteriovenous malformation demonstrated. DIVISION OF RADIOLOGY Provider, [facility] - 01/31/2023 * * *Final Report* * * DATE OF EXAM: Jan 28 2023 12:14PM [facility] 0272 - MRA BRAIN WO IVCON / [...] any questions regarding this interpretation, please call [phone]. If you are unable to reach us at the number above, please feel free to contact [facility] eRadiology at [phone]. [facility] MRA Head vessels WO contrast Ordered By: Ccf Provider on 01-31-2023 [facility] No Panel Informationon 01-28 Radiology Study observation (narrative) [facility] Comprehensive metabolic 2000 panelon 12-24-2022 Albumin [Mass/Vol] 3.9 g/dL Normal 3.9-4.9 [facility] Comment on above: Order Comment: James limon Type: BLOOD SPECIMEN Ordering Facility: [facility] Address: [address] [place] [id number] Performed By: #### 2 4323-8 #### [facility] CLIA [id number] [address] [place] [address] [place] ALP [Catalytic activity/Vol] 56 U/L Normal 34-123 [facility] Comment on above: Order Comment: James limon Type: BLOOD SPECIMEN Ordering Facility: [facility] Address: [address] [address] Performed By: #### 2 4323-8 #### [facility] CLIA [id number] [address] ALT With P-5'-P [Catalytic activity/Vol] 89 U/L High 7-38 [facility] Comment on above: Order Comment: Speci men Type: BLOOD SPECIMEN Ordering Facility: [facility] Address: [address] [place] [address] Performed By: #### 2 4323-8 #### [facility] CLIA [id number] [address] Anion gap [Moles/Vol] 9 mmol/L Normal 9-18 [facility] Comment on above: Order Comment: Speci men Type: BLOOD SPECIMEN Ordering Facility: [facility] Address: [address] [place] [address] Performed By: #### 2 4323-8 #### [facility] CLIA [id number] [address] AST With P-5'-P [Catalytic activity/Vol] 25 U/L Normal 13-35 [facility] Comment on above: Order Comment: Speci men Type: BLOOD SPECIMEN Ordering Facility: [facility] Address: [address] [place] [address] Performed By: #### 2 4323-8 #### [facility] CLIA [id number] [address] STATES OF [facility] Bilirubin [Mass/Vol] 0.3 mg/dL Normal 0.2-1.3 [facility] Comment on above: Order Comment: Speci men Type: BLOOD SPECIMEN Ordering Facility: [facility] Address: [address] [place] [address] Performed By: #### 2 4323-8 #### [facility] CLIA [id number] [address] OF [facility] Calcium [Mass/Vol] 9.0 mg/dL Normal 8.5-10.2 [facility] Comment on above: Order Comment: Speci men Type: BLOOD SPECIMEN Ordering Facility: [facility] Address: [address] [place] [address] Performed By: #### 2 4323-8 #### [facility] CLIA [id number] [address] OF [facility] Chloride [Moles/Vol] 106 mmol/L High 97-105 [facility] Comment on above: Order Comment: Speci men Type: BLOOD SPECIMEN Ordering Facility: [facility] Address: [address] [address] Performed By: #### 2 4323-8 #### [facility] CLIA [id number] [address] OF [facility] CO2 [Moles/Vol] 20 mmol/L Low 22-30 [facility] Comment on above: Order Comment: Speci men Type: BLOOD SPECIMEN Ordering Facility: [facility] Address: [address] [place] [address] Performed By: #### 2 4323-8 #### [facility] CLIA [id number] [address] [place] Creatinine [Mass/Vol] 0.62 mg/dL Normal 0.58-0.96 [facility] Comment on above: Order Comment: Speci men Type: BLOOD SPECIMEN Ordering Facility: [facility] Address: [address] [place] [address] Performed By: #### 2 4323-8 #### [facility] CLIA [id number] [address] ESTIMATED GLOMERULAR FILTRATION RATE 115 mL/min/1.73m??? Normal >=60 [facility] Comment on above: Order Comment: Speci men Type: BLOOD SPECIMEN Ordering Facility: [facility] Address: [address] [place] [address] Result Comment: Cece mated Glomerular Filtration Rate [...] Performed By: #### 2 4323-8 #### [facility] CLIA [id number] 1 [place] [address] [place] Glucose [Mass/Vol] 127 mg/dL High 74-99 [facility] Comment on above: Order Comment: James limon Type: BLOOD SPECIMEN Ordering Facility: [facility] Address: [address] [address] Result Comment: The [place] [employer] (ADA) provides guidance for cutoff [...] Standards of Medical Care in Diabetes 2016, [place] [employer]. Diabetes Care. 2016.39(Suppl 1). Performed By: #### 2 4323-8 #### [facility] CLIA [id number] 1 [place] [address] [place] Potassium [Moles/Vol] 4.5 mmol/L Normal 3.7-5.1 [facility] Comment on above: Order Comment: James ilmon Type: BLOOD SPECIMEN Ordering Facility: [facility] Address: [address] [address] Performed By: #### 2 4323-8 #### [facility] CLIA [id number] 1 [place] [address] [place] Protein [Mass/Vol] 6.1 g/dL Low 6.3-8.0 [facility] Comment on above: Order Comment: James limon Type: BLOOD SPECIMEN Ordering Facility: [facility] Address: [address] Performed By: #### 2 4323-8 #### [facility] CLIA [id number] [address] Sodium [Moles/Vol] 135 mmol/L Low 136-144 [facility] Comment on above: Order Comment: Speci men Type: BLOOD SPECIMEN Ordering Facility: [facility] Address: [address] [address] Performed By: #### 2 4323-8 #### [facility] CLIA [id number] [address] Urea nitrogen [Mass/Vol] 8 mg/dL Normal 7-21 [facility] Comment on above: Order Comment: Speci men Type: BLOOD SPECIMEN Ordering Facility: [facility] Address: [address] [address] Performed By: #### 2 4323-8 #### [facility] CLIA [id number] [address] OF [facility] ALLIED HEALTHon 12-23-2022 ALLIED HEALTH HNO ID: [id number] Author: MICHI Ramirez) Service: Radiology Author Type: Technologist Type: Allied [...] DEPARTMENT: MR; Exam(s) Completed: Head: Routine Brain [place] MRA Sagittal Sinus MRV PERIPHERAL IV DATA: Inpatient: see LDA documentation SIGNED BY: RT James(R) December 23, 2022 5:43 PM Normal [facility] CBC panel Auto (Bld)on 12-23 Erythrocyte distribution width (RBC) [Ratio] 12.1 % Normal 11.5-15.0 [facility] Comment on above: Order Comment: Speci men Type: BLOOD SPECIMEN Ordering Facility: [facility] Address: [address] [place] [address] Performed By: #### 5 8410-2 #### [facility] CLIA [id number] [address] Hematocrit (Bld) [Volume fraction] 38.7 % Normal 36.0-46.0 [facility] Comment on above: Order Comment: Speci men Type: BLOOD SPECIMEN Ordering Facility: [facility] Address: [address] [place] [address] Performed By: #### 5 8410-2 #### [facility] CLIA [id number] [address] OF [facility] Hemoglobin (Bld) [Mass/Vol] 12.5 g/dL Normal 11.5-15.5 [facility] Comment on above: Order Comment: Speci men Type: BLOOD SPECIMEN Ordering Facility: [facility] Address: [address] [place] [address] Performed By: #### 5 8410-2 #### [facility] CLIA [id number] [address] MCH (RBC) [Entitic mass] 32.2 pg Normal 26.0-34.0 [facility] Comment on above: Order Comment: Speci men Type: BLOOD SPECIMEN Ordering Facility: [facility] Address: [address] [place] [address] Performed By: #### 5 8410-2 #### [facility] CLIA [id number] [address] MCHC (RBC) [Mass/Vol] 32.3 g/dL Normal 30.5-36.0 [facility] Comment on above: Order Comment: Speci men Type: BLOOD SPECIMEN Ordering Facility: [facility] Address: [address] [address] Performed By: #### 5 8410-2 #### [facility] CLIA [id number] [address] MCV (RBC) [Entitic vol] 99.7 fL Normal 80.0-100.0 [facility] Comment on above: Order Comment: Speci men Type: BLOOD SPECIMEN Ordering Facility: [facility] Address: [address] [address] Performed By: #### 5 8410-2 #### [facility] CLIA [id number] [address] Nucleated RBC (Bld) [#/Vol] 10*3/uL Normal <0.01 [facility] Comment on above: Order Comment: Speci men Type: BLOOD SPECIMEN Ordering Facility: [facility] Address: [address] [address] Performed By: #### 5 8410-2 #### [facility] CLIA [id number] [address] Platelet mean volume (Bld) [Entitic vol] 10.1 fL Normal 9.0-12.7 [facility] Comment on above: Order Comment: Speci men Type: BLOOD SPECIMEN Ordering Facility: [facility] Address: [address] [address] Performed By: #### 5 8410-2 #### [facility] CLIA [id number] [address] Platelets (Bld) [#/Vol] 206 10*3/uL Normal 150-400 [facility] Comment on above: Order Comment: Speci men Type: BLOOD SPECIMEN Ordering Facility: [facility] Address: [address] [address] Performed By: #### 5 8410-2 #### [facility] CLIA [id number] [address] [place] RBC (Bld) [#/Vol] 3.88 10*6/uL Low 3.90-5.20 [facility] Comment on above: Order Comment: Speci men Type: BLOOD SPECIMEN Ordering Facility: [facility] Address: [address] [address] Performed By: #### 5 8410-2 #### [facility] CLIA [id number] [address] WBC (Bld) [#/Vol] 10.56 10*3/uL Normal 3.70-11.00 [facility] Comment on above: Order Comment: Speci men Type: BLOOD SPECIMEN Ordering Facility: [facility] Address: [address] [address] Performed By: #### 5 8410-2 #### [facility] CLIA [id number] [address] CONSULTon 12-23-2022 CONSULT HNO ID: [id number] Author: Andreas Arguello MD Service: Neurology General [...] Seizure Risk factors: Head Trauma (No); 2. DISPLAY SCREEN FABRICATOR Infections (No); 3. Family History of Seizures (No); 4. Developmental Delay (No); 5. Febrile Seizures (No); 6. DISPLAY SCREEN FABRICATOR Tumors (No); 7. DISPLAY SCREEN FABRICATOR Vascular Disease (No) OUTPATIENT MEDICATIONS metoprolol tartrate, [...] or sw (more content not included)... Normal [facility] Comprehensive metabolic 2000 panelon 12-23-2022 Albumin [Mass/Vol] 4.0 g/dL Normal 3.9-4.9 [facility] Comment on above: Order Comment: Speci men Type: BLOOD SPECIMEN Ordering Facility: [facility] Address: [address] [place] [address] Performed By: #### 2 4323-8 #### [facility] CLIA [id number] [address] ALP [Catalytic activity/Vol] 67 U/L Normal 34-123 [facility] Comment on above: Order Comment: Speci men Type: BLOOD SPECIMEN Ordering Facility: [facility] Address: [address] [place] [address] Performed By: #### 2 4323-8 #### [facility] CLIA [id number] [address] [place] ALT With P-5'-P [Catalytic activity/Vol] 145 U/L High 7-38 [facility] Comment on above: Order Comment: Speci men Type: BLOOD SPECIMEN Ordering Facility: [facility] Address: [address] [place] [address] Performed By: #### 2 4323-8 #### [facility] CLIA [id number] [address] Anion gap [Moles/Vol] 10 mmol/L Normal 9-18 [facility] Comment on above: Order Comment: Speci men Type: BLOOD SPECIMEN Ordering Facility: [facility] Address: [address] [place] [address] Performed By: #### 2 432-8 #### [facility] CLIA [id number] [address] AST With P-5'-P [Catalytic activity/Vol] 108 U/L High 13-35 [facility] Comment on above: Order Comment: Speci men Type: BLOOD SPECIMEN Ordering Facility: [facility] Address: [address] [place] [address] Performed By: #### 2 432-8 #### [facility] CLIA [id number] [address] [place] Bilirubin [Mass/Vol] 0.2 mg/dL Normal 0.2-1.3 [facility] Comment on above: Order Comment: Speci men Type: BLOOD SPECIMEN Ordering Facility: [facility] Address: [address] [place] [address] Performed By: #### 2 432-8 #### [facility] CLIA [id number] [address] [place] Calcium [Mass/Vol] 8.5 mg/dL Normal 8.5-10.2 [facility] Comment on above: Order Comment: Speci men Type: BLOOD SPECIMEN Ordering Facility: [facility] Address: [address] [place] [address] Performed By: #### 2 4323-8 #### [facility] CLIA [id number] [address] Chloride [Moles/Vol] 104 mmol/L Normal 97-105 [facility] Comment on above: Order Comment: Speci men Type: BLOOD SPECIMEN Ordering Facility: [facility] Address: [address] [place] [address] Performed By: #### 2 4323-8 #### [facility] CLIA [id number] [address] CO2 [Moles/Vol] 21 mmol/L Low 22-30 [facility] Comment on above: Order Comment: Speci men Type: BLOOD SPECIMEN Ordering Facility: [facility] Address: [address] [place] [address] Performed By: #### 2 4323-8 #### [facility] CLIA [id number] [address] Creatinine [Mass/Vol] 0.68 mg/dL Normal 0.58-0.96 [facility] Comment on above: Order Comment: Speci men Type: BLOOD SPECIMEN Ordering Facility: [facility] Address: [address] [place] [address] Performed By: #### 2 4323-8 #### [facility] CLIA [id number] [address] ESTIMATED GLOMERULAR FILTRATION RATE 112 mL/min/1.73m??? Normal >=60 [facility] Comment on above: Order Comment: Speci men Type: BLOOD SPECIMEN Ordering Facility: [facility] Address: [address] [place] [address] Result Comment: Cece mated Glomerular Filtration Rate [...] 2 4323-8 #### [facility] CLIA [id number] [address] [place] [address] [place] Glucose [Mass/Vol] 145 mg/dL High 74-99 [facility] Comment on above: Order Comment: James limon Type: BLOOD SPECIMEN Ordering Facility: [facility] Address: [address] [place] [address] Result Comment: The [place] [employer] (ADA) provides guidance for cutoff [...] Standards of Medical Care in Diabetes 2016, [place] [employer]. Diabetes Care. 2016.39(Suppl 1). Performed By: #### 2 4323-8 #### [facility] CLIA [id number] [address] [place] [address] [place] Potassium [Moles/Vol] 4.6 mmol/L Normal 3.7-5.1 [facility] Comment on above: Order Comment: James limon Type: BLOOD SPECIMEN Ordering Facility: [facility] Address: [address] [place] [address] Performed By: #### 2 4323-8 #### [facility] CLIA [id number] [address] [place] [address] [place] Protein [Mass/Vol] 6.1 g/dL Low 6.3-8.0 [facility] Comment on above: Order Comment: James limon Type: BLOOD SPECIMEN Ordering Facility: [facility] Address: [address] [place] [address] Performed By: #### 2 4323-8 #### [facility] LABORATORY CLIA [id number] 1 [place] [address] [place] Sodium [Moles/Vol] 135 mmol/L Low 136-144 [facility] Comment on above: Order Comment: Speci men Type: BLOOD SPECIMEN Ordering Facility: [facility] Address: [address] [place] [place] [id number] Performed By: #### 2 4323-8 #### [facility] CLIA [id number] [address] Urea nitrogen [Mass/Vol] 9 mg/dL Normal 7-21 [facility] Comment on above: Order Comment: Speci men Type: BLOOD SPECIMEN Ordering Facility: [facility] Address: [place] [address] Performed By: #### 2 4323-8 #### [facility] CLIA [id number] [address] HISTORY PHYSICALon HISTORY PHYSICAL HNO ID: [id number] Author: Brian Garrett DO Service: Hospital Medicine Author Type: Physician Type: HANDP Filed: 12/23/2022 12:24 AM Note Text: DEPARTMENT OF HOSPITAL MEDICINE HISTORY AND PHYSICAL EXAM SERVICE DATE: 12/22/2022 SERVICE TIME: 1155 PM Primary Care Physician: Nicky Knight MD NIGHT AND WEEKEND COVERAGE: [facility] COVERAGE: From 7am - 7pm, please call sound After 7pm, please call cross cover pager #[phone] Subjective CHIEF COMPLAINT: Headache HPI: This is [...] or organomegaly (more content not included)... Normal [facility] MRA BRAIN WO IVCONon 023 MRA BRAIN WO IVCON * * *Final Report* * * DATE OF EXAM: Dec 23 2022 6:21PM [facility] 0272 - MRA BRAIN WO IVCON / PROCEDURE REASON: Headache, new or worsening (Age >= 50y) * * * * Physician Interpretation * * * * EXAMINATION: MRI BRAIN WO IVCON, MRA BRAIN WO IVCON, MRV BRAIN WO IVCON HISTORY: HEADACHE (accession [id number]), Aneurysm (known, predisposing condition) (accession [id number]) - Headache, new or worsening (Age >= 50y) (accession [id number]), Headache, new or worsening (Age >= 50y) (accession [id number]), Dural venous sinus thrombosis suspected (accession [id number]) TECHNIQUE: MRI brain routine protocol without contrast, 3-D avvv-if-cptwqf intracranial MRA, and 2-D immc-yq-pfkcxf intracranial MRV. 3-D post-processed images were created, [...] codominant. Posterior circulation: configuration of the right CLAIM BENEFIT SPECIALIST with diminished caliber of the right P1 segment. Distal vertebral arteries (codominant), basilar trunk and embossing clerk are normal in caliber. No vessel cutoff, filling defect, significant focal stenosis, or evidence of aneurysm. INTRACRANIAL MRV: Normal flow-related signal in the dural venous sinuses and major deep and superficial draining veins without evidence of focal filling defect or significant stenosis. Right dominant fzgifpjabz-wymbutq-ngnr lar drainage with relatively hypoplastic left transverse sinus and sigmoid sinuses. IMPRESSION: Age-appropriate unremarkable brain without acute findings. Scattered small foci of subarachnoid and intraventricular susceptibility likely reflecting air from recent lumbar puncture. Unremarkable intracranial MRA/MRV. Rivet Hole Machine Operator: COLLINS Transcribe Date/Time: Dec 23 2022 6:35P Dictated by : ROSIBEL TUCKER MD This examination was interpreted and the report reviewed and electronically signed by: ROSIBEL TUCKER MD on Dec 23 2022 6:46PM EST [id number] Normal [facility] MRI BRAIN WO IVCONon 023 MRI BRAIN WO IVCON * * *Final Report* * * DATE OF EXAM: Dec 23 2022 6:21PM [facility] 0294 - MRI BRAIN WO IVCON / PROCEDURE REASON: Headache, new or worsening (Age >= 50y) * * * * Physician Interpretation * * * * EXAMINATION: MRI BRAIN WO IVCON, MRA BRAIN WO IVCON, MRV BRAIN WO IVCON HISTORY: HEADACHE (accession [id number]), Aneurysm (known, predisposing condition) (accession [id number]) - Headache, new or worsening (Age >= 50y) (accession [id number]), Headache, new or worsening (Age >= 50y) (accession [id number]), Dural venous sinus thrombosis suspected (accession [id number]) TECHNIQUE: MRI brain routine protocol without contrast, 3-D muqe-eq-rsbwrg intracranial MRA, and 2-D hgsn-ns-eiazso intracranial MRV. 3-D post-processed images were created, [...] codominant. Posterior circulation: configuration of the right CLAIM BENEFIT SPECIALIST with diminished caliber of the right P1 segment. Distal vertebral arteries (codominant), basilar trunk and embossing clerk are normal in caliber. No vessel cutoff, filling defect, significant focal stenosis, or evidence of aneurysm. INTRACRANIAL MRV: Normal flow-related signal in the dural venous sinuses and major deep and superficial draining veins without evidence of focal filling defect or significant stenosis. Right dominant ddxxzmfbgi-cpludmm-bvlc lar drainage with relatively hypoplastic left transverse sinus and sigmoid sinuses. IMPRESSION: Age-appropriate unremarkable brain without acute findings. Scattered small foci of subarachnoid and intraventricular susceptibility likely reflecting air from recent lumbar puncture. Unremarkable intracranial MRA/MRV. Rivet Hole Machine Operator: PSCB Transcribe Date/Time: Dec 23 2022 6:35P Dictated by : ROSIBEL TUCKER MD This examination was interpreted and the report reviewed and electronically signed by: ROSIBEL TUCKER MD on Dec 23 2022 6:46PM EST [id number] Normal [facility] MRV BRAIN WO IVCONon 023 MRV BRAIN WO IVCON * * *Final Report* * * DATE OF EXAM: Dec 23 2022 6:21PM [facility] 0335 - MRV BRAIN WO IVCON / PROCEDURE REASON: Dural venous sinus thrombosis suspected * * * * Physician Interpretation * * * * EXAMINATION: MRI BRAIN WO IVCON, MRA BRAIN WO IVCON, MRV BRAIN WO IVCON HISTORY: HEADACHE (accession [id number]), Aneurysm (known, predisposing condition) (accession [id number]) - Headache, new or worsening (Age >= 50y) (accession [id number]), Headache, new or worsening (Age >= 50y) (accession [id number]), Dural venous sinus thrombosis suspected (accession [id number]) TECHNIQUE: MRI brain routine protocol without contrast, 3-D mllt-bs-dtizzo intracranial MRA, and 2-D qllc-bc-pskpvy intracranial MRV. 3-D post-processed images were created, [...] codominant. Posterior circulation: configuration of the right CLAIM BENEFIT SPECIALIST with diminished caliber of the right P1 segment. Distal vertebral arteries (codominant), basilar trunk and embossing clerk are normal in caliber. No vessel cutoff, filling defect, significant focal stenosis, or evidence of aneurysm. INTRACRANIAL MRV: Normal flow-related signal in the dural venous sinuses and major deep and superficial draining veins without evidence of focal filling defect or significant stenosis. Right dominant ympqjvupxk-nbazvrg-yohy lar drainage with relatively hypoplastic left transverse sinus and sigmoid sinuses. IMPRESSION: Age-appropriate unremarkable brain without acute findings. Scattered small foci of subarachnoid and intraventricular susceptibility likely reflecting air from recent lumbar puncture. Unremarkable intracranial MRA/MRV. Rivet Hole Machine Operator: COLLINS Transcribe Date/Time: Dec 23 2022 6:35P Dictated by : ROSIBEL TUCKER MD This examination was interpreted and the report reviewed and electronically signed by: ROSIBEL TUCKER MD on Dec 23 2022 6:46PM EST [id number] Normal [facility] PT panel Coag (PPP)on 2022 INR Coag (PPP) [Relative time] {INR} Low 0.9-1.3 [facility] Comment on above: Order Comment: Speci men Type: BLOOD SPECIMEN Ordering Facility: [facility] Address: [address] [place], [place] [phone] Result Comment: [place] min K Antagonist (VKA) Therapeutic Range: INR 2 to 3 (Target INR of 2.5) Note: For patients treated with VKA drugs, such as warfarin, the [employer] 2012 Guideline recommends [...] to 3.5 (target INR of 3). Ghassan GH, et al. Chest 2012, 141:7S-47S Ebonie RA, et al. [facility] 2017, 70: 252-289 Performed By: #### 3 4528-0 #### [facility] CLIA [id number] [address] [place] [address] [place] PT Coag (PPP) [Time] 9.7 s Normal 9.7-13.0 [facility] Comment on above: Order Comment: Sohanabdiel braxton Type: BLOOD SPECIMEN Ordering Facility: [facility] Address: [address] [place], [place] [phone] Performed By: #### 3 4528-0 #### [facility] CLIA [id number] [address] [place] [address] [place] THERAPY NTon 12-23-2022 THERAPY NT HNO ID: [id number] Author: LINDSAY Wadsworth/Petra Service: Occupational Therapy Author Type: Occupational Therapist Type: Therapy (PT/OT/Speech/Resp) Filed: 12/23/2022 2:14 PM Note Text: OCCUPATIONAL THERAPY MISSED VISIT SERVICE DATE: 12/23/2022 SERVICE TIME: 1412 to 1412 ROOM: [place] [address] Patient not seen due to No Skilled Needs. Patient is independent and does not require skilled OT services at this time. OT will sign off. SIGNATURE: Albina Watson OTR/L PATIENT NAME: Joan Foley DATE: December 23, 2022 TIME: 2:13 PM Normal [facility] THERAPY NT HNO ID: [id number] Author: Grover Moore PT Service: Physical Therapy Author Type: Physical Therapist Type: Therapy (PT/OT/Speech/Resp) Filed: 12/23/2022 1:43 PM Note Text: PHYSICAL THERAPY MISSED VISIT SERVICE DATE: 12/23/2022 SERVICE TIME: 1342 to 1342 ROOM: [place] [address] Patient not seen due to No Skilled Needs. Discussed with RN, pt is independent. Anticipate no acute PT needs, will sign off. SIGNATURE: Grover Moore PT PATIENT NAME: Joan Foley DATE: December 23, 2022 TIME: 1:42 PM Normal [facility] Absolute lymphocyte countOrd ered By: Dr. Carcamo on 12-22-2022 Lymphocytes Auto (Unsp spec) [#/Vol] 2.74 10*3/uL 0.83-4.51 [facility] Basophil percentageOrdered B y: Dr. Carcamo on 12-22-2022 Basophils/100 WBC (Bld) 0.8 % 0-1 [facility] Eosinophils/100 WBC (Bld) 1.8 % 0-5 [facility] Neutrophils (Bld) [#/Vol] 6.9 10*3/uL 2.0-7.7 [facility] Neutrophils/100 WBC (Bld) 63.5 % 47-70 [facility] WBC (Bld) [#/Vol] 10.8 10*3/uL 4.4-11.0 [facility] Blood erythrocytes count (nu mber/volume)Ordered By: Dr. Carcamo on 12-22-2022 RBC (Bld) [#/Vol] 4.31 10*6/uL 4.2-5.4 [facility] Blood hemoglobin measurement (mass/volume)Ordered By: Dr. Carcamo on 12-22-2022 Hemoglobin (Bld) [Mass/Vol] 14.1 g/dL 12.0-15.0 [facility] Blood lymphocytes/100 leukoc ytesOrdered By: Dr. Carcamo on 12-22-2022 Lymphocytes/100 WBC (Bld) 25.3 % 19-41 [facility] Blood manual differential co mment interpretation (narrative result)Ordered By: Dr. Carcamo on 12-22-2022 Manual differential comment Cristobal (Bld) [Interp] SCANNED [facility] Blood monocytes/100 leukocyt esOrdered By: Dr. Carcamo on 12-22-2022 Monocytes/100 WBC (Bld) 6.8 % 0-10 [facility] Blood platelet mean volumeOr dered By: Dr. Carcamo on 12-22-2022 Platelet mean volume (Bld) [Entitic vol] 11.2 fL 6.2-12.0 [facility] COVID-19 virus antigen assay Ordered By: Dr. Carcamo on 12-22-2022 SARS-CoV-2 (COVID-19) Ag IA.rapid Ql (Resp) [facility] Determination of erythrocyte mean corpuscular volume (MCV)Ordered By: Dr. Carcamo on 12-22-2022 MCV (RBC) [Entitic vol] 99.8 fL 81-99 [facility] Hematocrit Auto (Bld) [Volum e fraction]Ordered By: Dr. Carcamo on 12-22-2022 Hematocrit (Bld) [Volume fraction] 43.0 % 37-47 [facility] Laboratory - Hematology and Cell countsOrdered By: Dr. Carcamo on 12-22-2022 Erythrocyte distribution width (RBC) [Entitic vol] 43.9 fL 35.1-43.9 [facility] Erythrocyte distribution width (RBC) [Ratio] 11.9 % 11.6-14.6 [facility] Immature granulocytes/100 WBC (Bld) 1.800 % 0.0-0.9 [facility] Comment on above: IG% - Immature Granu locytes (promyelocytes, myelocytes and metamyelocytes) > 1% indicates that a LEFT SHIFT is Present. MCH (RBC) [Entitic mass] 32.7 pg 27.0-32.0 [facility] Nucleated RBC/100 WBC (Bld) [Ratio] 0 % 0-5 [facility] MCHC Auto (RBC) [Mass/Vol]Or dered By: Dr. Carcamo on 12-22-2022 MCHC (RBC) [Mass/Vol] 32.8 g/dL 32-36 [facility] Platelets bldOrdered By: Dr. Carcamo on 12-22-2022 Platelets (Bld) [#/Vol] 187 10*3/uL 150-450 [facility] Basic metabolic 1998 panelon 12-16-2022 Anion gap [Moles/Vol] 4 mmol/L 3 - 13 mmol/L [facility] Calcium [Mass/Vol] 9.4 mg/dL 8.4 - 10. 4 mg/dL [facility] Chloride [Moles/Vol] 108 mmol/L High 98 - 10 7 mmol/L [facility] CO2 [Moles/Vol] 26 mmol/L 22 - 30 mmol/L [facility] Creatinine [Mass/Vol] 0.80 mg/dL 0.52 - 1.04 mg/dL [facility] GFR/1.73 sq M.predicted MDRD (S/P/Bld) [Vol rate/Area] - PINF [facility] Comment on above: Calculation based on the Chronic Kidney Disease Epidemiology Collaboration (CKD-EPI) equation refit without adjustment for race Glucose [Mass/Vol] 94 mg/dL 70 - 100 mg/dL [facility] Interpretation and review of laboratory results Abnormal [facility] Potassium [Moles/Vol] 4.3 mmol/L 3.5 - 5.1 mmol/L [facility] Sodium [Moles/Vol] 137 mmol/L 135 - 145 mmol/L [facility] Urea nitrogen [Mass/Vol] 14 mg/dL 7 - 17 mg/dL [facility] CBC W Auto Differential pane l (Bld)on 12-16-2022 Basophils (Bld) [#/Vol] 0.1 10*3/uL 0.0 - 0.2 10*3/uL [facility] Basophils/100 WBC (Bld) 0.7 % 0.0 - 2.0 % [facility] Eosinophils (Bld) [#/Vol] 0.3 10*3/uL 0.0 - 0.5 10*3/uL [facility] Eosinophils/100 WBC (Bld) 2.8 % 1.0 - 6.0 % [facility] Erythrocyte distribution width (RBC) [Ratio] 12.1 % 11.5 - 14.5 % [facility] Hematocrit (Bld) [Volume fraction] 44.3 % 35.0 - 47.0 % [facility] Hemoglobin (Bld) [Mass/Vol] 14.4 g/dL 11.7 - 16.0 g/dL [facility] Immature granulocytes (Bld) [#/Vol] 0.1 10*3/uL High NINF - 0.0 10*3/uL [facility] Immature granulocytes/100 WBC (Bld) 1.1 % High NINF - 0.0 % [facility] Interpretation and review of laboratory results Abnormal [facility] Lymphocytes (Bld) [#/Vol] 2.2 10*3/uL 1.0 - 4.3 10*3/uL [facility] Lymphocytes/100 WBC (Bld) 22.5 % 20.0 - 40.0 % [facility] MCH (RBC) [Entitic mass] 33.1 pg 26.0 - 34.0 pg [facility] MCHC (RBC) [Mass/Vol] 32.5 % 32.0 - 36.0 % [facility] MCV (RBC) [Entitic vol] 101.8 fL High 80.0 - 98.0 fL [facility] Monocytes (Bld) [#/Vol] 0.5 10*3/uL 0.0 - 0.8 10*3/uL [facility] Monocytes/100 WBC (Bld) 4.9 % 2.0 - 10.0 % [facility] Neutrophils (Bld) [#/Vol] 6.5 10*3/uL 1.8 - 7.0 10*3/uL [facility] Neutrophils/100 WBC (Bld) 68.0 % 40.0 - 80.0 % [facility] Platelet mean volume (Bld) [Entitic vol] 10.4 fL 7.4 - 12.4 fL [facility] Comment on above: MPV is a calculated measurement using platelet volume ratio Platelets (Bld) [#/Vol] 225 10*3/uL 140 - 440 10*3/uL [facility] RBC (Bld) [#/Vol] 4.35 10*6/uL 3.8 - 5.20 10*6/uL [facility] WBC (Bld) [#/Vol] 9.6 10*3/uL 3.6 - 10.7 10*3/uL [facility] CT Head WO contraston [address] Report Dictated on Electronically Signed By: Jose Sarabia Electronically Signed Date/Time: 12/16/2022 10:07 AM [facility] [id number] SYSTEM Patient Name: JOAN FOLEY : 1980 [...] included paranasal sinuses and orbits are normal. [facility] Jose Sarabia M D - 12/16/2022 Patient [...] Sarabia Electronically Signed Date/Time: 12/16/2022 10:07 AM [facility] Radiology Study observation (narrative) [facility] CT Head WO contrastOrdered B y: Jose Sarabia on 12-16-2022 [facility] [employer] Work Phone: ED Nursing Noteon 12-16-2022 ED Nursing Note Patient ambulated to the restroom without difficulty, she denies dizziness during ambulation. Warm blanket given for comfort. Will continue to monitor. Call light within reach. Jayashree Banerjee RN 12/16/22 [id number] Normal [facility] ED Nursing Note Patient to room 3 wi th c/o headache since yesterday. Patient reports nausea and dizziness. Patient took Maxalt last night at 2030 without relief. V/S obtained, call light within reach. Normal [facility] ED Provider Noteon 3 ED Provider Note [...] otherwise acutely negative except as in the [place]. PAST MEDICAL HISTORY Past Medical History: Diagnosis [...] (*) Neutrophils Absolute 6.5 Lymphocytes Absolute 2.2 [place] (more content not included)... Normal [facility] Laboratory - Chemistry and C hemistry - challengeon 12-16-2022 Glucose (CSF) [Mass/Vol] 51 mg/dL 40 - 70 mg/dL [facility] Laboratory - Chemistry and C hemistry - challengeOrdered By: Carmen Bangura on 12-16-2022 Protein (CSF) [Mass/Vol] 66.2 mg/dL High 12.0 - 60.0 mg/dL [facility] Laboratory - Chemistry and C hemistry - challengeOrdered By: Nevin Beasley on 12-16-2022 Beta HCG ( test) Ql Negative Negative [facility] Comment on above: Please note: Very di lute urine specimens, as indicated by a low specific gravity, may not contain field representatives director levels of hCG. If is still suspected, a first morning urine specimen should be collected 48 hours later and tested. Beta HCG ( test) Ql (U) is the most common reason for HCG in urine, although choriocarcinoma, hydatidiform mole, and certain nontrophoblastic malignancies also result in detectable urinary HCG levels. Sensitivity = 20mIU/mL. [facility] - Coagulationon 0 12-16-2022 PT Coag (Bld) [Time] 9.9 s 9.0 - 1 2.0 s [facility] - Hematology and Cell countsOrdered By: Joselin Ruiz on 12-16-2022 RBC Manual cnt (CSF) [#/Vol] 1 /mm3 [facility] WBC Manual cnt (CSF) [#/Vol] 3 /mm3 NINF - 5 /mm3 [facility] [employer] Laboratory - Specimen inform ationOrdered By: Joselin Ruiz on 12-16-2022 Appearance (CSF) Clear and Colorless [facility] [employer] Appearance (Spun CSF) Clear and Colorless [facility] [employer] Tube number Nom (CSF) [ID] Tube 3 [facility] - Specimen inform ationon 12-16-2022 Appearance (CSF) Clear and Colorless [facility] - Specimen inform ationOrdered By: Carmen Bangura on 12-16-2022 Appearance (CSF) Clear and Colorless [facility] [employer] No Panel InformationOrdered By: Joselin Ruiz on 12-16-2022 [facility] [employer] No Panel Informationon 12-16 SUPERNATANT Clear and Colorless [facility] Gerald Pham DO 12/16/2022 2:18 PM Lumbar Puncture Performed by: Gerald Pham DO Authorized by: Gerald Pham DO Consent: Consent obtained: Written Consent given by: Patient Risks, benefits, and alternatives were discussed: yes Risks discussed: Bleeding, infection, nerve damage, pain and headache Alternatives discussed: No treatment and alternative treatment [facility] protocol: Procedure explained and questions answered to [...] site: Direct pressure applied Procedure completion: Tolerated [facility] [employer] No Panel InformationOrdered By: Carmen Bangura on 12-16-2022 Interpretation and review of laboratory results Abnormal [facility] [employer] Clear and Colorless [facility] No Panel InformationOrdered By: Nevin Beasley on 12-16-2022 [facility] [employer] PT Coag (Bld) [Time]on 12-16 INR Coag (PPP) [Relative time] Low 0.9 - 1.1 [facility] Comment on above: This result was prev iously suppressed from the chart. Interpretation and review of laboratory results Abnormal [facility] Urinalysis complete panel (U )on 12-16-2022 Bilirubin Ql (U) Negative Negative mg/dL [facility] Clarity (U) Clear Clear [facility] Color (U) Light Yellow Lt. Yellow [facility] Glucose Ql (U) Normal Normal (<70) mg/dL [facility] Hemoglobin Ql (U) Negative Negative mg/dL [facility] Interpretation and review of laboratory results Normal [facility] Ketones (U) [Mass/Vol] Negative Negat brittany mg/dL [facility] Leukocyte esterase Test strip Ql (U) Negative Negative Charlie/uL [facility] Nitrite Ql (U) Negative Negative [facility] th pH (U) 5.0 [pH] 5.0 - 8.0 pH [facility] Protein (U) [Mass/Vol] Negative Negat brittany mg/dL [facility] Specific gravity (U) [Rel density] 1.022 1.005 - 1.030 [facility] Urobilinogen (U) [Mass/Vol] Normal Normal (0-1) mg/dL [facility] aPTT Coag (Bld) [Time]on aPTT Coag (PPP) [Time] 25.7 s 20.0 - 30.5 s [facility] Interpretation and review of laboratory results Normal [facility] NOTE: The therapeuti c time for Heparin anticoagulation, based on Xa activity inhibition, is an APTT of 46-80 seconds. [facility] XR DIGIT GENERAL 3V FRONTAL/ LAT/OBL LEFTon 11-29-2022 [facility] XR Finger - left AP and Late ral and obliqueon 11-29-2022 IMPRESSION: Negative 3 views of the third digit. [employer]et [employer] Machine Operator: PSCB Transcribe Date/Time: Nov 29 2022 12:50P Dictated by : SHIRIN ANGEL MD This examination was interpreted and the report reviewed and electronically signed by: SHIRIN ANGEL MD on Nov 29 2022 12:52PM [facility] DIVISION OF RADIOLOGY * * *Final [...] soft tissue swelling. DIVISION OF RADIOLOGY Provider, [facility] - 11/29/2022 * * *Final Report* * [...] Negative 3 views of the third digit. Rivet Hole Machine Operator: COLLINS Transcribe Date/Time: Nov 29 2022 12:50P Dictated by : SHIRIN ANGEL MD This examination was interpreted and the report reviewed and electronically signed by: SHIRIN ANGEL MD on Nov 29 2022 12:52PM [facility] Radiology Study observation (narrative) [facility] XR Finger - left AP and Late ral and obliqueOrdered By: [facility] Provider on 11-29-2022 [facility] Absolute lymphocyte countOrd ered By: ED PROVIDER on 10-06-2022 Lymphocytes Auto (Unsp spec) [#/Vol] 3.23 10*3/uL 0.83-4.51 [facility] Basophil percentageOrdered B y: ED PROVIDER on 10-06-2022 Basophils/100 WBC (Bld) 0.4 % 0-1 [facility] Chloride [Moles/Vol] 106 mmol/L 98-107 [facility] Eosinophils/100 WBC (Bld) 1.6 % 0-5 [facility] Glucose [Mass/Vol] 80 mg/dL 74-106 [facility] Neutrophils (Bld) [#/Vol] 9.0 10*3/uL 2.0-7.7 [facility] Neutrophils/100 WBC (Bld) 67.4 % 47-70 [facility] Potassium [Moles/Vol] 4.1 mmol/L 3.5-5.1 [facility] Sodium [Moles/Vol] 139 mmol/L 136-145 [facility] WBC (Bld) [#/Vol] 13.4 10*3/uL 4.4-11.0 [facility] Basophil percentageOrdered B y: Dr. Pederson on 10-06-2022 Basophil percentage 0 SEEN /hpf 0-5 [facility] Beta hCG serum qualOrdered B y: Dr. Pederson on 10-06-2022 Beta HCG ( test) Ql Negative [facility] Bilirubin Test strip Ql (U)O rdered By: Dr. Pederson on 10-06-2022 Bilirubin Ql (U) Negative Negative [facility] Blood erythrocytes count (nu mber/volume)Ordered By: ED PROVIDER on 10-06-2022 RBC (Bld) [#/Vol] 3.98 10*6/uL 4.2-5.4 [facility] Blood hemoglobin measurement (mass/volume)Ordered By: ED PROVIDER on 10-06-2022 Hemoglobin (Bld) [Mass/Vol] 13.6 g/dL 12.0-15.0 [facility] Blood lymphocytes/100 leukoc ytesOrdered By: ED PROVIDER on 10-06-2022 Lymphocytes/100 WBC (Bld) 24.1 % 19-41 [facility] Blood monocytes/100 leukocyt esOrdered By: ED PROVIDER on 10-06-2022 Monocytes/100 WBC (Bld) 6.0 % 0-10 [facility] Blood platelet mean volumeOr dered By: ED PROVIDER on 10-06-2022 Platelet mean volume (Bld) [Entitic vol] 10.2 fL 6.2-12.0 [facility] Determination of erythrocyte mean corpuscular volume (MCV)Ordered By: ED PROVIDER on 10-06-2022 MCV (RBC) [Entitic vol] 99.0 fL 81-99 [facility] Hematocrit Auto (Bld) [Volum e fraction]Ordered By: ED PROVIDER on 10-06-2022 Hematocrit (Bld) [Volume fraction] 39.4 % 37-47 [facility] Ketones Test strip Ql (U)Ord ered By: Dr. Pederson on 10-06-2022 Ketones Ql (U) Negative Negative [facility] - Chemistry and C hemistry - challengeOrdered By: ED PROVIDER on 10-06-2022 CO2 [Moles/Vol] 27.0 mmol/L 21.0-32.0 [facility] Urea nitrogen/Creatinine [Mass ratio] 19.1 mg/mg 10-20 [facility] - Hematology and Cell countsOrdered By: ED PROVIDER on 10-06-2022 Erythrocyte distribution width (RBC) [Entitic vol] 43.5 fL 35.1-43.9 [facility] Erythrocyte distribution width (RBC) [Ratio] 11.9 % 11.6-14.6 [facility] Immature granulocytes/100 WBC (Bld) 0.500 % 0.0-0.9 [facility] Comment on above: IG% - Immature Granu locytes (promyelocytes, myelocytes and metamyelocytes) > 1% indicates that a LEFT SHIFT is Present. MCH (RBC) [Entitic mass] 34.2 pg 27.0-32.0 [facility] Nucleated RBC/100 WBC (Bld) [Ratio] 0 % 0-5 [facility] MCHC Auto (RBC) [Mass/Vol]Or dered By: ED PROVIDER on 10-06-2022 MCHC (RBC) [Mass/Vol] 34.5 g/dL 32-36 [facility] Mucus LM Ql (Urine sed)Order ed By: Dr. Pederson on 10-06-2022 Mucus Ql (Urine sed) 0 SEEN /hpf [facility] Nitrite Test strip Ql (U)Ord ered By: Dr. Pederson on 10-06-2022 Nitrite Ql (U) Negative Negative [facility] No Panel InformationOrdered By: ED PROVIDER on 12-28-2022 Estimated Creatinine Clearance Calc 87.58 ml/min [facility] Estimated GFR (MDRD) Amer 112 mL/min >60 [facility] Comment on above: GFR Calc Estimated GFR (MDRD) Non-Af Amer 93 mL/min >60 [facility] Comment on above: Non- GFR Calc Platelets bldOrdered By: ED PROVIDER on 10-06-2022 Platelets (Bld) [#/Vol] 221 10*3/uL 150-450 [facility] Protein Test strip Ql (U)Ord ered By: Dr. Pederson on 10-06-2022 Protein Ql (U) Negative Negative [facility] Serum or plasma calcium osiris urement (mass/volume)Ordered By: ED PROVIDER on 10-06-2022 Calcium [Mass/Vol] 9.1 mg/dL 8.5-10.1 [facility] Serum or plasma creatinine m easurement (mass/volume)Ordered By: ED PROVIDER on 10-06-2022 Creatinine [Mass/Vol] 0.73 mg/dL 0.55-1.02 [facility] Comment on above: The validity of the calculated GFR & GFRAA in patients over 70 years has not been determined. Clinical correlation is essential. Serum or plasma urea nitroge n measurement (mass/volume)Ordered By: ED PROVIDER on 10-06-2022 Urea nitrogen [Mass/Vol] 14 mg/dL 7-18 [facility] Squamous epithelial cells de tection in urine sediment by light microscopyOrdered By: Dr. Pederson on 10-06-2022 Epithelial cells.squamous LM Ql (Urine sed) 0-5 SEEN /hpf 5-10 [facility] Thin prep Papanicolaou smear with manual screeningOrdered By: ED PROVIDER on 10-06-2022 Thin prep Papanicolaou smear with manual screening 6 5-15 [facility] UA DIP, URINE (POC)on 2021 BILIRUBIN UA (POCT) Negative Negative [facility] CLARITY UA (POCT) Clear [facility] COLOR UA (POCT) Yellow [facility] GLUCOSE UA (POCT) Negative Negative mg/dL [facility] HEMOGLOBIN/BLOOD UA (POCT) Negative Negative [facility] KETONE UA (POCT) Negative Negative mg/dL [facility] LEUKOCYTES UA (POCT) Negative Negative [facility] NITRITE UA (POCT) Negative Negative [facility] PH UA (POCT) 6.0 4.5 - 8.0 [facility] Protein Ql (U) Negative Negative mg/dL [facility] SPECIFIC GRAVITY UA (POCT) >=1.030 1.005 - 1.030 [facility] UROBILINOGEN UA (POCT) 0.2 E.U./dL Juliette l E.U./dL [facility] Urine blood detectionOrdered By: Dr. Pederson on 10-06-2022 RBC Ql (U) Negative Negative [facility] RBC Ql (U) 0 SEEN /hpf 0-5 [facility] Urine clarityOrdered By: Dr. Pederson on 10-06-2022 Clarity (U) Clear Clear [facility] Urine color determinationOrd ered By: Dr. Pederson on 10-06-2022 Color (U) Straw Yellow [facility] Urine glucose detectionOrder ed By: Dr. Pederson on 10-06-2022 Glucose Ql (U) Normal mg/dl Normal [facility] Urine leukocyte esterase det ection by dipstickOrdered By: Dr. Pederson on 10-06-2022 Leukocyte esterase Test strip Ql (U) Negative Negative [facility] Urine pHOrdered By: Dr. Cornel wolf on 10-06-2022 pH (U) 6.0 [pH] 5.0 - 8.0 [facility] Urine sediment bacteria coun t by microscopy (number/high power field)Ordered By: Dr. Pederson on 10-06-2022 Bacteria LM.HPF (Urine sed) [#/Area] 0 /[HPF] None Seen [facility] Urine specific gravity measu rementOrdered By: Dr. Pederson on 10-06-2022 Specific gravity (U) [Rel density] 1.015 1.002-1.030 [facility] Urobilinogen Auto test strip Ql (U)Ordered By: Dr. Pederson on 10-06-2022 Urobilinogen Ql (U) Normal mg/dl Normal [facility] US CHEST WALL/SOFT TISSUEon 07-05-2022 US CHEST WALL/SOFT TISSUE * * *Final Report* * * DATE OF EXAM: Jul 05 2022 3:49PM AKU 1047 - US CHEST WALL/SOFT TISSUE / [...] lipoma. Clinical correlation and follow-up are recommended. Rivet [employer] Machine Operator: [facility] Transcribe Date/Time: Jul 07 2022 3:39P Dictated by : OJSE SARGENT MD This examination was interpreted and the report reviewed and electronically signed by: JOSE SARGENT MD on Jul 07 2022 3:41PM EST [id number] Normal [facility] US SOFT TISSUE ABDOMENon US SOFT TISSUE ABDOMEN * * *Final Report * * * DATE OF EXAM: Jul 05 2022 3:49PM [facility] 1268 - US SOFT TISSUE ABDOMEN / [...] by ultrasound or if mass is growing. Rivet [employer] Machine Operator: [facility] Transcribe Date/Time: Jul 07 2022 3:44P Dictated by : SHASHANK JOHNSON MD This examination was interpreted and the report reviewed and electronically signed by: SHASHANK JOHNSON MD on Jul 07 2022 3:50PM EST [id number] Normal [facility] OGJOAN Tyler ([id number]) 1980 F Date Time Provider Department 04/26/22 JOSE HAYES During your visit today, we recorded the following information about you: Lindsay Reid LPN 04/26/2022 10:08 AM Signed Last seen 03/02/2021 in [place]. Please call patient with over due appointment. [...] by LINDSAY REID on 04/26/22 [facility] CBC with Auto Differentialon 03-27-2022 Absolute [...] (Bld) 69.2 % 40.0 - 80.0 % [employer] Work Phone: [phone] Hematocrit (Bld) [Volume fraction] 37.8 % 35.0 - 47.0 % [employer] Work Phone: Hemoglobin (Bld) [Mass/Vol] 12.6 g/dL 11.7 - 16.0 g/dL [employer] Work Phone: Lymphocytes (Bld) [#/Vol] 1.6 10*3/uL 1.0 - 4.3 10*3/uL [employer] Work Phone: 1 Lymphocytes/100 WBC (Bld) 20.1 % 20.0 - 40.0 % [employer] Work Phone: MCH (RBC) [Entitic mass] 32.7 pg 26.0 - 34.0 pg [employer] Work Phone: MCHC (RBC) [Mass/Vol] 33.5 % 32.0 - 36.0 % [employer] Phone: MCV (RBC) [Entitic vol] 97.8 fL 79.0 - 98.0 fL [employer] Work Phone: Monocytes (Bld) [#/Vol] 0.6 10*3/uL 0.0 - 0.8 10*3/uL [employer] Work Phone: Monocytes/100 WBC (Bld) 8.0 % 2.0 - 10.0 % [employer] Phone: Platelet distribution width (Bld) [Ratio] 12.7 % 11.5 - 14.5 % [employer] Phone: Platelet mean volume (Bld) [Entitic vol] 8.4 fL 7.4 - 12.4 fL [employer] Work Phone: [phone] Comment on above: MPV is a calculated measurement using platelet volume ratio. Platelets (Bld) [#/Vol] 211 10*3/uL 140 - 440 10*3/uL [employer] Work Phone: [phone] RBC (Bld) [#/Vol] 3.86 10*6/uL 3.80 - 5.2 0 10*6/uL [facility] Work Phone: WBC (Bld) [#/Vol] 7.8 10*3/uL 3.6 - 10.7 10*3/uL [facility] Work Phone: Test Performed by [facility], [address] [facility] [place] [address] [facility] Work Phone: Hemogram w/ Autodiffon 03-27 Abs Baso Cnt 0.0 10*3/uL Normal 0.0-0.2 [facility] Comment on above: Performed By: #### H EMDF ####[id number] [place] [address] Abs Neutrophile Cnt 5.4 10*3/uL Normal 1.8-7.0 [facility] Comment on above: Performed By: #### H EMDF ####[facility] [employer] [address] [address] Basophils/100 WBC (Bld) 0.5 % Normal 0.0-2.0 [facility] Comment on above: Performed By: #### H EMDF ####[facility] [employer] [address] [address] Eosinophils (Bld) [#/Vol] 0.2 10*3/uL Normal 0.0-0.5 [facility] Comment on above: Performed By: #### H EMDF ####[facility] [employer] [id number] [place] [address] Eosinophils/100 WBC (Bld) 2.2 % Normal 1.0-6.0 [facility] Comment on above: Performed By: #### H EMDF ####[facility] [employer] [address] [address] Erythrocyte distribution width (RBC) [Ratio] 12.7 % Normal 11.5-14.5 [facility] Comment on above: Performed By: #### H EMDF ####[facility] [employer] [address] [address] Granulocytes/100 WBC (Bld) 69.2 % Normal 40.0-80.0 [facility] Comment on above: Performed By: #### H EMDF ####[address] Hematocrit (Bld) [Volume fraction] 37.8 % Normal 35.0-47.0 [facility] Comment on above: Performed By: #### H EMDF ####[address] Hemoglobin (Bld) [Mass/Vol] 12.6 g/dL Normal 11.7-16.0 [facility] Comment on above: Performed By: #### H EMDF ####[address] Lymphocytes (Bld) [#/Vol] 1.6 10*3/uL Normal 1.0-4.3 [facility] Comment on above: Performed By: #### H EMDF ####[address] Lymphocytes/100 WBC (Bld) 20.1 % Normal 20.0-40.0 [facility] Comment on above: Performed By: #### H EMDF ####[address] MCH (RBC) [Entitic mass] 32.7 pg Normal 26.0-34.0 [facility] Comment on above: Performed By: #### H EMDF ####[address] MCHC 33.5 % Normal 32.0-36.0 [facility] Comment on above: Performed By: #### H EMDF ####[address] MCV (RBC) [Entitic vol] 97.8 fL Normal 79.0-98.0 [facility] Comment on above: Performed By: #### H EMDF ####[address] Monocytes (Bld) [#/Vol] 0.6 10*3/uL Normal 0.0-0.8 [facility] Comment on above: Performed By: #### H EMDF ####[address] Monocytes/100 WBC (Bld) 8.0 % Normal 2.0-10.0 [facility] Comment on above: Performed By: #### H EMDF ####[address] Platelet mean volume (Bld) [Entitic vol] 8.4 fL Normal 7.4-12.4 [facility] Comment on above: Result Comment: MPV is a calculated measurement using platelet volume ratio. Performed By: #### H EMDF ####[address] Platelets (Bld) [#/Vol] 211 10*3/uL Normal 140-440 [facility] Comment on above: Performed By: #### H EMDF ####[address] RBC (Bld) [#/Vol] 3.86 10*6/uL Normal 3.80-5.20 [facility] Comment on above: Performed By: #### H EMDF ####[address] WBC (Bld) [#/Vol] 7.8 10*3/uL Normal 3.6-10.7 [facility] Comment on above: Performed By: #### H EMDF ####[address] CBC with Auto Differentialon 03-26-2022 Absolute Baso # 0.1 10*3/uL 0.0 - 0.2 10*3/uL [employer] Work Phone: Absolute Neut # 5.1 10*3/uL 1.8 - 7.0 10*3/uL [employer] Work Phone: Basophils/100 WBC (Bld) 0.7 % 0.0 - 2.0 % [facility] Work Phone: Eosinophils (Bld) [#/Vol] 0.2 10*3/uL 0.0 - 0.5 10*3/uL [employer] Work Phone: 1 22 Eosinophils/100 WBC (Bld) 2.4 % 1.0 - 6.0 % [employer] Work Phone: 1 22 Granulocytes/100 WBC (Bld) 67.1 % 40.0 - 80.0 % [employer] Work Phone: Hematocrit (Bld) [Volume fraction] 38.1 % 35.0 - 47.0 % [employer] Work Phone: Hemoglobin (Bld) [Mass/Vol] 12.7 g/dL 11.7 - 16.0 g/dL [employer] Work Phone: Lymphocytes (Bld) [#/Vol] 1.6 10*3/uL 1.0 - 4.3 10*3/uL [employer] Work Phone: ) 22 Lymphocytes/100 WBC (Bld) 20.8 % 20.0 - 40.0 % [employer] Work Phone: 1 MCH (RBC) [Entitic mass] 32.5 pg 26.0 - 34.0 pg [employer] Work Phone: MCHC (RBC) [Mass/Vol] 33.4 % 32.0 - 36.0 % [employer] Work Phone: MCV (RBC) [Entitic vol] 97.5 fL 79.0 - 98.0 fL [employer] Work Phone: 22 Monocytes (Bld) [#/Vol] 0.7 10*3/uL 0.0 - 0.8 10*3/uL [employer] Work Phone: 1 22 Monocytes/100 WBC (Bld) 9.0 % 2.0 - 10.0 % [employer] Work Phone: Platelet distribution width (Bld) [Ratio] 12.9 % 11.5 - 14.5 % [employer] Work Phone: Platelet mean volume (Bld) [Entitic vol] 8.0 fL 7.4 - 12.4 fL [employer] Work Phone: [phone] Comment on above: MPV is a calculated measurement using platelet volume ratio. Platelets (Bld) [#/Vol] 205 10*3/uL 140 - 440 10*3/uL [employer] Work Phone: RBC (Bld) [#/Vol] 3.90 10*6/uL 3.80 - 5.2 0 10*6/uL [employer] Work Phone: [phone] WBC (Bld) [#/Vol] 7.6 10*3/uL 3.6 - 10.7 10*3/uL [employer] Work Phone: [phone] Test Performed by [address] LAB [employer] Work Phone: [phone] CR Chest Portableon 03-26-20 CR Chest Portable Patient Name: JOAN FOLEY Diagnostic Radiology ACCESSION EXAM DATE/TIME PROCEDURE ORDERING PROVIDER [id number] 03/26/2022 13:10 EDT CR Chest Portable [id number] BAIRON ALFARO CPT code 65108 Reason For Exam (CR Chest Portable) dyspnea; [...] Transcribed Date and Time: 03/26/2022 1:18 Normal [facility] Hemogram w/ Autodiffon 03-26 Abs Baso Cnt 0.1 10*3/uL Normal 0.0-0.2 [facility] Comment on above: Performed By: #### H EMDF #### [address] [place] [address] Abs Neutrophile Cnt 5.1 10*3/uL Normal 1.8-7.0 [facility] Comment on above: Performed By: #### H EMDF #### [address] [place] [address] Basophils/100 WBC (Bld) 0.7 % Normal 0.0-2.0 [facility] Comment on above: Performed By: #### H EMDF #### [address] [place] [address] Eosinophils (Bld) [#/Vol] 0.2 10*3/uL Normal 0.0-0.5 [facility] Comment on above: Performed By: #### H EMDF #### [address] [place] [address] Eosinophils/100 WBC (Bld) 2.4 % Normal 1.0-6.0 [facility] Comment on above: Performed By: #### H EMDF #### [address] [address] Erythrocyte distribution width (RBC) [Ratio] 12.9 % Normal 11.5-14.5 [facility] Comment on above: Performed By: #### H EMDF #### [address] [place] [address] Granulocytes/100 WBC (Bld) 67.1 % Normal 40.0-80.0 [facility] Comment on above: Performed By: #### H EMDF #### [address] [place] [address] Hematocrit (Bld) [Volume fraction] 38.1 % Normal 35.0-47.0 [facility] Comment on above: Performed By: #### H EMDF #### [address] [place] Hemoglobin (Bld) [Mass/Vol] 12.7 g/dL Normal 11.7-16.0 [facility] Comment on above: Performed By: #### H EMDF #### [facility] [address] [place], [place] Lymphocytes (Bld) [#/Vol] 1.6 10*3/uL Normal 1.0-4.3 [facility] Comment on above: Performed By: #### H EMDF #### [address] [place], [place] Lymphocytes/100 WBC (Bld) 20.8 % Normal 20.0-40.0 [facility] Comment on above: Performed By: #### H EMDF #### [address] [place], [place] MCH (RBC) [Entitic mass] 32.5 pg Normal 26.0-34.0 [facility] Comment on above: Performed By: #### H EMDF #### [address] [place] MCHC 33.4 % Normal 32.0-36.0 [facility] Comment on above: Performed By: #### H EMDF #### [address] [place], [place] MCV (RBC) [Entitic vol] 97.5 fL Normal 79.0-98.0 [facility] Comment on above: Performed By: #### H EMDF #### [address] [place], [place] Monocytes (Bld) [#/Vol] 0.7 10*3/uL Normal 0.0-0.8 [facility] Comment on above: Performed By: #### H EMDF #### [address] [place], [place] Monocytes/100 WBC (Bld) 9.0 % Normal 2.0-10.0 [facility] Comment on above: Performed By: #### H EMDF #### [address] [place], [place] Platelet mean volume (Bld) [Entitic vol] 8.0 fL Normal 7.4-12.4 [facility] Comment on above: Result Comment: MPV is a calculated measurement using platelet volume ratio. Performed By: #### H EMDF #### [facility] [address] [place] [address] Platelets (Bld) [#/Vol] 205 10*3/uL Normal 140-440 [facility] Comment on above: Performed By: #### H EMDF #### [facility] [address] [place] [address] RBC (Bld) [#/Vol] 3.90 10*6/uL Normal 3.80-5.20 [facility] Comment on above: Performed By: #### H EMDF #### [facility] [address] [place] [address] WBC (Bld) [#/Vol] 7.6 10*3/uL Normal 3.6-10.7 [facility] Comment on above: Performed By: #### H EMDF #### [facility] [address] [place] [address] XR CHEST PORTABLEon 03-26-20 Patient Name: JOAN MADERA Diagnostic Radiology ACCESSION EXAM DATE/TIME PROCEDURE ORDERING PROVIDER [id number] 03/26/2022 13:10 EDT CR Chest Portable [id number] BAIRON ALFARO CPT code 39209 Reason For Exam (CR Chest Portable) dyspnea; [...] VLADIMIR Transcribed Date and Time: 03/26/2022 1:18 [facility] RAD Result, Unknown Provider - 03/26/2022 Patient Name: JOAN FOLEY Diagnostic Radiology ACCESSION EXAM DATE/TIME PROCEDURE ORDERING PROVIDER [id number] 03/26/2022 13:10 EDT CR Chest Portable [id number] -BAIRON DURÁN CPT code 69529 Reason For Exam (CR Chest Portable) dyspnea; [...] VLADIMIR Transcribed Date and Time: 03/26/2022 1:18 [facility] Work Phone: Radiology Study observation (narrative) [facility] Work Phone: XR CHEST PORTABLEOrdered By: Unknown Result on 03-26-2022 [facility] CBC with Auto Differentialon 03-25-2022 Absolute Baso # 0.0 10*3/uL 0.0 - 0.2 10*3/uL [facility] Work Phone: Absolute Neut # 5.5 10*3/uL 1.8 - 7.0 10*3/uL [facility] Work Phone: 1 22 Basophils/100 WBC (Bld) 0.6 % 0.0 - 2.0 % [employer] Work Phone: Eosinophils (Bld) [#/Vol] 0.2 10*3/uL 0.0 - 0.5 10*3/uL [facility] Work Phone: 22 Eosinophils/100 WBC (Bld) 2.4 % 1.0 - 6.0 % [facility] Work Phone: 1 Granulocytes/100 WBC (Bld) 69.5 % 40.0 - 80.0 % [employer] Work Phone: Hematocrit (Bld) [Volume fraction] 39.0 % 35.0 - 47.0 % [employer] Work Phone: Hemoglobin (Bld) [Mass/Vol] 13.3 g/dL 11.7 - 16.0 g/dL [employer] Work Phone: Interpretation and review of laboratory results Abnormal [employer] Work Phone: Lymphocytes (Bld) [#/Vol] 1.4 10*3/uL 1.0 - 4.3 10*3/uL [employer] Work Phone: Lymphocytes/100 WBC (Bld) 18.1 % Low 20.0 - 40.0 % [employer] Work Phone: MCH (RBC) [Entitic mass] 33.2 pg 26.0 - 34.0 pg [facility] Work Phone: MCHC (RBC) [Mass/Vol] 34.2 % 32.0 - 36.0 % [facility] Work Phone: 1 MCV (RBC) [Entitic vol] 97.2 fL 79.0 - 98.0 fL [employer] Work Phone: Monocytes (Bld) [#/Vol] 0.7 10*3/uL 0.0 - 0.8 10*3/uL [facility] Work Phone: 22 Monocytes/100 WBC (Bld) 9.4 % 2.0 - 10.0 % [facility] Work Phone: [phone] Platelet distribution width (Bld) [Ratio] 12.8 % 11.5 - 14.5 % [facility] Work Phone: [phone] Platelet mean volume (Bld) [Entitic vol] 8.7 fL 7.4 - 12.4 fL [employer] Work Phone: [phone] Comment on above: MPV is a calculated measurement using platelet volume ratio. Platelets (Bld) [#/Vol] 185 10*3/uL 140 - 440 10*3/uL [facility] Work Phone: 1 RBC (Bld) [#/Vol] 4.01 10*6/uL 3.80 - 5.2 0 10*6/uL [employer] Work Phone: 1 WBC (Bld) [#/Vol] 7.8 10*3/uL 3.6 - 10.7 10*3/uL [employer] Work Phone: [phone] Test Performed by [facility], [address] [place] [id number] [place] [address] [employer] Work Phone: [phone] Comp Metabolic Panelon 03-25 ALP [Catalytic activity/Vol] 71 U/L Normal 38-126 [facility] Comment on above: Performed By: #### C MP3, HEMDF #### [address] [address] ALT [Catalytic activity/Vol] 96 U/L High 0-34 [facility] Comment on above: Result Comment: The ALT test is performed by an updated assay method. Please note that the reference intervals have been changed and are now sex specific. Performed By: #### C MP3, HEMDF #### [facility] [employer] [address] [address] Calcium [Mass/Vol] 8.8 mg/dL Normal 8.4-10.4 [facility] Comment on above: Performed By: #### C MP3, HEMDF #### [facility] [employer] [address] [address] Glucose [Mass/Vol] 116 mg/dL High 70-100 [facility] Comment on above: Performed By: #### C MP3, HEMDF #### [facility] [address] [place], [place] Protein [Mass/Vol] 6.5 g/dL Normal 6.3-8.2 [facility] Comment on above: Performed By: #### C MP3, HEMDF #### [facility] [address] [place], [place] Urea nitrogen [Mass/Vol] 8 mg/dL Low 9-20 [facility] Comment on above: Performed By: #### C MP3, HEMDF #### [facility] [address] [place], [place] Anion gap [Moles/Vol] 7 mmol/L Normal 3-13 [facility] Comment on above: Performed By: #### C MP3, HEMDF #### [facility] [address] [place], [place] AST [Catalytic activity/Vol] 51 U/L High 15-46 [facility] Comment on above: Performed By: #### C MP3, HEMDF #### [facility] [address] [place], [place] Bilirubin [Mass/Vol] 0.5 mg/dL Normal 0.2-1.3 [facility] Comment on above: Performed By: #### C MP3, HEMDF #### [facility] [address] [place], [place] CO2 [Moles/Vol] 27 mmol/L Normal 22-30 [facility] Comment on above: Performed By: #### C MP3, HEMDF #### [facility] [address] [place], [place] Creatinine [Mass/Vol] 0.69 mg/dL Normal 0.52-1.25 [facility] Comment on above: Performed By: #### C MP3, HEMDF #### [facility] [address] [place], [place] eGFR OTHER > 90.0 Normal >60 [facility] Comment on above: Result Comment: KDIG O [...] tubular creatinine secretion. Performed By: #### C MP3, HEMDF #### [address] GFR/1.73 sq M.predicted among blacks MDRD (S/P/Bld) [Vol rate/Area] mL/min/{1.73_m2} Normal >60 [facility] Comment on above: Performed By: #### C MP3, HEMDF #### [address] Chloride [Moles/Vol] 102 mmol/L Normal 98-107 [facility] Comment on above: Performed By: #### C MP3, HEMDF #### [address] Potassium [Moles/Vol] 4.2 mmol/L Normal 3.5-5.1 [facility] Comment on above: Performed By: #### C MP3, HEMDF #### [address] Sodium [Moles/Vol] 135 mmol/L Normal 135-145 [facility] Comment on above: Performed By: #### C MP3, HEMDF #### [address] Albumin [Mass/Vol] 3.9 g/dL Normal 3.5-5.0 [facility] Comment on above: Performed By: #### C MP3, HEMDF #### [address] [place] [address] Comprehensive Metabolic Pane paulino 03-25-2022 Albumin [Mass/Vol] 3.9 g/dL 3.5 - 5.0 g/dL [employer] Work Phone: [phone] ALP (Bld) [Catalytic activity/Vol] 71 U/L 38 - 126 U/L [employer] Work Phone: [phone] ALT [Catalytic activity/Vol] 96 U/L High 0 - 34 U/L [employer] Work Phone: [phone] Comment on above: The ALT test is perf ormed by an updated assay method. Please note that the reference intervals have been changed and are now sex specific. Anion gap [Moles/Vol] 7 mmol/L 3 - 13 mmol/L [employer] [employer] Work Phone: [phone] AST [Catalytic activity/Vol] 51 U/L High 15 - 46 U/L [employer] Work Phone: [phone] Bilirubin [Mass/Vol] 0.5 mg/dL 0.2 - 1 .3 mg/dL [employer] Work Phone: [phone] Calcium [Mass/Vol] 8.8 mg/dL 8.4 - 10. 4 mg/dL [employer] Work Phone: [phone] Chloride [Moles/Vol] 102 mmol/L 98 - 10 7 mmol/L [employer] Work Phone: [phone] CO2 [Moles/Vol] 27 mmol/L 22 - 30 mmol/L [employer] Work Phone: [phone] Creatinine [Mass/Vol] 0.69 mg/dL 0.52 - 1.25 mg/dL [employer] Work Phone: [phone] EGFR IF NonAfrican Ukrainian >90.0 >60 mL/min [employer] Work Phone: Comment on above: KDIGO guidelines [...] fraction] 6.5 g/dL 6.3 - 8.2 g/dL [facility] Work Phone: [phone] GFR/1.73 sq M.predicted among blacks MDRD (S/P/Bld) [Vol rate/Area] mL/min/{1.73_m2} >60 mL/min [facility] Work Phone: [phone] Glucose [Mass/Vol] 116 mg/dL High 70 - 100 mg/dL [facility] Work Phone: [phone] Interpretation and review of laboratory results Abnormal [facility] Work Phone: [phone] Potassium [Moles/Vol] 4.2 mmol/L 3.5 - 5.1 mmol/L [facility] Work Phone: [phone] Sodium [Moles/Vol] 135 mmol/L 135 - 145 mmol/L [facility] Work Phone: [phone] Urea nitrogen (BldV) [Mass/Vol] 8 mg/dL Low 9 - 20 mg/dL [facility] Work Phone: Test Performed by [facility], [address] [place] [address] [facility] Work Phone: Hemogram w/ Autodiffon 03-25 Abs Baso Cnt 0.0 10*3/uL Normal 0.0-0.2 [facility] Comment on above: Performed By: #### C MP3, HEMDF #### [address] [address] Abs Neutrophile Cnt 5.5 10*3/uL Normal 1.8-7.0 [facility] Comment on above: Performed By: #### C MP3, HEMDF #### [facility] [address] [place] [address] Basophils/100 WBC (Bld) 0.6 % Normal 0.0-2.0 [facility] Comment on above: Performed By: #### C MP3, HEMDF #### [facility] [address] [place] [address] Eosinophils (Bld) [#/Vol] 0.2 10*3/uL Normal 0.0-0.5 [facility] Comment on above: Performed By: #### C MP3, HEMDF #### [facility] [address] [place] [address] Eosinophils/100 WBC (Bld) 2.4 % Normal 1.0-6.0 [facility] Comment on above: Performed By: #### C MP3, HEMDF #### [place] [place] [address] Erythrocyte distribution width (RBC) [Ratio] 12.8 % Normal 11.5-14.5 [facility] Comment on above: Performed By: #### C MP3, HEMDF #### [address] [place] [address] Granulocytes/100 WBC (Bld) 69.5 % Normal 40.0-80.0 [facility] Comment on above: Performed By: #### C MP3, HEMDF #### [facility] [address] [place] [address] Hematocrit (Bld) [Volume fraction] 39.0 % Normal 35.0-47.0 [facility] Comment on above: Performed By: #### C MP3, HEMDF #### [facility] [address] [place] [address] Hemoglobin (Bld) [Mass/Vol] 13.3 g/dL Normal 11.7-16.0 [facility] Comment on above: Performed By: #### C MP3, HEMDF #### [facility] [address] [place] [address] Lymphocytes (Bld) [#/Vol] 1.4 10*3/uL Normal 1.0-4.3 [facility] Comment on above: Performed By: #### C MP3, HEMDF #### [address] [place], [place] Lymphocytes/100 WBC (Bld) 18.1 % Low 20.0-40.0 [facility] Comment on above: Performed By: #### C MP3, HEMDF #### [address] [place], [place] MCH (RBC) [Entitic mass] 33.2 pg Normal 26.0-34.0 [facility] Comment on above: Performed By: #### C MP3, HEMDF #### [address] [place], [place] MCHC 34.2 % Normal 32.0-36.0 [facility] Comment on above: Performed By: #### C MP3, HEMDF #### [address] [place], [place] MCV (RBC) [Entitic vol] 97.2 fL Normal 79.0-98.0 [facility] Comment on above: Performed By: #### C MP3, HEMDF #### [address] [address] [place], [place] Monocytes (Bld) [#/Vol] 0.7 10*3/uL Normal 0.0-0.8 [facility] Comment on above: Performed By: #### C MP3, HEMDF #### [address] [place], [place] Monocytes/100 WBC (Bld) 9.4 % Normal 2.0-10.0 [facility] Comment on above: Performed By: #### C MP3, HEMDF #### [address] [place], [place] Platelet mean volume (Bld) [Entitic vol] 8.7 fL Normal 7.4-12.4 [facility] Comment on above: Result Comment: MPV is a calculated measurement using platelet volume ratio. Performed By: #### C MP3, HEMDF #### [address] [place] [address] Platelets (Bld) [#/Vol] 185 10*3/uL Normal 140-440 [facility] Comment on above: Performed By: #### C MP3, HEMDF #### [facility] [address] [place] [address] RBC (Bld) [#/Vol] 4.01 10*6/uL Normal 3.80-5.20 [facility] Comment on above: Performed By: #### C MP3, HEMDF #### [facility] [address] [place] [address] WBC (Bld) [#/Vol] 7.8 10*3/uL Normal 3.6-10.7 [facility] Comment on above: Performed By: #### C MP3, HEMDF #### [facility] [address] [place] [address] Surgical Pathologyon 022 Surgical Pathology [id number] [facility] PATHOLOGY AND LABORATORY MEDICINE [address], [place] [id number] FINAL SURGICAL PATHOLOGY REPORT ___ NAME: JOAN FOLEY : 1980 42 Y F BILLING NO.: [id number] LOCATION: [id number] PROCEDURE 03/23/2022 DATE: SURGEON: XOCHITL WALKER RN RECEIVED 03/23/2022 DATE: ATTENDING: JJ GREEN MD REPORT DATE: 04/28/2022 COPIES TO: MIREILLE VILLATORO MD ___ DIAGNOSIS: LIVER, BIOPSY - NON-NEOPLASTIC STEATOTIC HEPATIC PARENCHYMA, FIBROUS CAPSULE, AND NECROTIC TISSUE. NEGATIVE FOR VIABLE NEOPLASM. COMMENT: This case was sent for outside consultation at the [facility] provided by Cooper Saldivar M.D. [facility] performed reticulin, glutamine synthetase, and Beta-Catenin. The specimen was additionally sent for immunohistochemistry to [facility] to perform LFRB, LOLA, and CRP which was interpreted at the [facility]. They are unable to characterize the necrotic tissue present, but there is no diagnostic evidence of carcinoma present within the submitted tissue. Please correlate with radiographic and clinical findings. If there is a suspicious, remaining mass lesion, additional tissue sampling may be indicated due to necrosis/non-viable tissue fragments submitted in the current specimen. Please see his report for more detailed information ([id number]). AHD/AHD Signature> EMERALD RIVERA M.D. ___ CLINICAL [...] characteristics determined by the clinical laboratories of [facility]. They have not been cleared by the [...] negativity on decalcified specimens. Professional Performing Location: [place] [address]. DEPARTMENT OF PATHOLOGY AND LABORATORY MEDICINE [place], [place] [address] [email or web address] Normal [facility] US BIOPSY LIVER PERCUTANEOUS on 03-23-2022 Patient Name: JOAN FOLEY Ultrasound ACCESSION EXAM DATE/TIME PROCEDURE ORDERING PROVIDER [id number] 03/23/2022 11:45 EDT US Biopsy Liver TG WALKER MARIANNE E CPT code 99978 95435 Reason For Exam (US Biopsy Liver) known [...] Core needle biopsy device: 18 gauge [place] Number of core specimens: Four On-site biopsy [...] JAMES Transcribed Date and Time: 03/23/2022 12:10 [facility] Mireille Villatoro MD - 03/23/2022 Patient Name: JOAN FOLEY Ultrasound ACCESSION EXAM DATE/TIME PROCEDURE ORDERING PROVIDER [id number] 03/23/2022 11:45 EDT US Biopsy Liver TG WALKER MARIANNE E CPT code 99745 53000 Reason For Exam (US Biopsy Liver) known [...] Core needle biopsy device: 18 gauge [place] Number of core specimens: Four On-site biopsy [...] Ultrasound ACCESSION EXAM DATE/TIME PROCEDURE ORDERING PROVIDER [id number] 03/23/2022 11:45 EDT US Biopsy Liver TG WALKER, XOCHITL Grewal CPT code 32639 71183 Reason For Exam (US Biopsy Liver) known [...] Core needle biopsy device: 18 gauge [place] Number of core specimens: Four On-site biopsy [...] JAMES Transcribed Date and Time: 03/23/2022 12:10 [facility] Prothrombin Timeon INR 1.0 Normal 0.9-1.1 [facility] Comment on above: Result Comment: Cipriano mmended [...] Infarction Performed By: #### P T #### [address] [address] PT Coag (PPP) [Time] 10.4 s Normal 9.0-12.0 [facility] Comment on above: Result Comment: . Performed By: #### P T #### [address] [address] Protime-INRon 03-22-2022 INR Coag (Bld) [Relative time] 1.0 {INR} [facility] Comment on above: Recommended Anticoag ulant [...] 10.4 s 9.0 - 1 2.0 s [facility] Comment on above: . Test Performed by [facility], [address] [place] [address] [facility] MRI ABDOMEN W WO CONTRASTon 03-20-2022 Patient Name: JOAN FOLEY Magnetic Resonance Imaging ACCESSION EXAM DATE/TIME PROCEDURE ORDERING PROVIDER [id number] 03/20/2022 08:58 EDT MRI Abdomen w/ + w/o LEATHA HINKLE BROOKE Contrast CPT code 84149 Reason For Exam (MRI Abdomen w/ + [...] JEFFREY Transcribed Date and Time: 03/20/2022 3:59 [facility] Vishal Schroeder MD - 03/20/2022 Patient Name: JOAN FOLEY Magnetic Resonance Imaging ACCESSION EXAM DATE/TIME PROCEDURE ORDERING PROVIDER [id number] 03/20/2022 08:58 EDT MRI Abdomen w/ + w/o LEATHA HINKLE, SAIGE Contrast CPT code 63755 Reason For Exam (MRI Abdomen w/ + [...] + w/o Contrast Patient Name: JOAN FOLEY Magnetic Resonance Imaging ACCESSION EXAM DATE/TIME PROCEDURE ORDERING PROVIDER [id number] 03/20/2022 08:58 EDT MRI Abdomen w/ + w/o LEATHA HINKLE BROOKE Contrast CPT code 07275 Reason For Exam (MRI Abdomen w/ + [...] Transcribed Date and Time: 03/20/2022 3:59 Normal [facility] CBC with Auto Differentialon 03-19-2022 Absolute Baso # 0.0 10*3/uL 0.0 - 0.2 10*3/uL [facility] Absolute Neut # 6.0 10*3/uL 1.8 - 7.0 10*3/uL [facility] Basophils/100 WBC (Bld) 0.6 % 0.0 - 2.0 % [facility] Eosinophils (Bld) [#/Vol] 0.2 10*3/uL 0.0 - 0.5 10*3/uL [facility] Eosinophils/100 WBC (Bld) 1.8 % 1.0 - 6.0 % [facility] Granulocytes/100 WBC (Bld) 69.4 % 40.0 - 80.0 % [facility] Hematocrit (Bld) [Volume fraction] 36.3 % 35.0 - 47.0 % [facility] Hemoglobin (Bld) [Mass/Vol] 12.4 g/dL 11.7 - 16.0 g/dL [facility] Interpretation and review of laboratory results Abnormal [facility] Lymphocytes (Bld) [#/Vol] 1.9 10*3/uL 1.0 - [...] (Bld) 6.2 % 2.0 - 10.0 % [facility] Platelet distribution width (Bld) [Ratio] 12.7 % 11.5 - 14.5 % [facility] Platelet mean volume (Bld) [Entitic vol] 9.1 fL 7.4 - 12.4 fL [facility] Comment on above: MPV is a calculated measurement using platelet volume ratio. Platelets (Bld) [#/Vol] 194 10*3/uL 140 - 440 10*3/uL [facility] RBC (Bld) [#/Vol] 3.72 10*6/uL Low 3.80 - 5.2 0 10*6/uL [facility] WBC (Bld) [#/Vol] 8.6 10*3/uL 3.6 - 10.7 10*3/uL [facility] Test Performed by [facility], [address] [place] [id number] [place] [address] LAB [facility] CULTURE URINEon 03-19-2022 CULTURE URINE CULTURE URINE --> Status: F Normal urogenital noreen present. Normal [facility] Comment on above: Performed By: #### C /UR ####[facility] [place] [address] Comp Panel with Mg Reflexon 03-19-2022 Calcium [Mass/Vol] 8.6 mg/dL Normal 8.4-10.4 [facility] Comment on above: Performed By: #### H RELL DUMONT3M #### [facility] [address] [place] [address] ALP [Catalytic activity/Vol] 62 U/L Normal 38-126 [facility] Comment on above: Performed By: #### H EMDF, CMP3M #### [address] [place], [place] ALT [Catalytic activity/Vol] 51 U/L High 0-34 [facility] Comment on above: Result Comment: The ALT test is performed by an updated assay method. Please note that the reference intervals have been changed and are now sex specific. Performed By: #### H TIM CMP3M #### [address] [place], [place] Anion gap [Moles/Vol] 6 mmol/L Normal 3-13 [facility] Comment on above: Performed By: #### H TIM CMP3M #### [address] AST [Catalytic activity/Vol] 41 U/L Normal 15-46 [facility] Comment on above: Performed By: #### H TIM CMP3M #### [address] [address] [place], [place] Bilirubin [Mass/Vol] 0.3 mg/dL Normal 0.2-1.3 [facility] Comment on above: Performed By: #### H TIM CMP3M #### [address] [address] [place], [place] CO2 [Moles/Vol] 25 mmol/L Normal 22-30 [facility] Comment on above: Performed By: #### H TIM CMP3M #### [address] [place], [place] Creatinine [Mass/Vol] 0.88 mg/dL Normal 0.52-1.25 [facility] Comment on above: Performed By: #### H TIM CMP3M #### [address] GFR/1.73 sq M.predicted among blacks MDRD (S/P/Bld) [Vol rate/Area] mL/min/{1.73_m2} Normal >60 [facility] Comment on above: Performed By: #### H TIM CMP3M #### [address] [place] [address] GFR/1.73 sq M.predicted among non-blacks MDRD (S/P/Bld) [Vol rate/Area] 81.5 mL/min/{1.73_m2} Normal >60 [facility] Comment on above: Result Comment: KDIG O [...] renal tubular creatinine secretion. Performed By: #### H TIM CMP3M #### [address] Glucose [Mass/Vol] 96 mg/dL Normal 70-100 [facility] Comment on above: Performed By: #### Laura DUMONT CMP3M #### [address] [address] Protein [Mass/Vol] 6.1 g/dL Low 6.3-8.2 [facility] Comment on above: Performed By: #### H TIM CMP3M #### [address] [address] Urea nitrogen [Mass/Vol] 15 mg/dL Normal 9-20 [facility] Comment on above: Performed By: #### H RELL DUMONT3M #### [address] [address] Albumin [Mass/Vol] 3.6 g/dL Normal 3.5-5.0 [facility] Comment on above: Performed By: #### Laura DUMONT CMP3M #### [facility] [address] [place] [address] Potassium [Moles/Vol] 4.1 mmol/L Normal 3.5-5.1 [facility] Comment on above: Performed By: #### H RLEL DUMONT3M #### [facility] [address] [place] [address] Sodium [Moles/Vol] 134 mmol/L Low 135-145 [facility] Comment on above: Performed By: #### H RELL DUMONT3M #### [facility] [address] [place] [address] Chloride [Moles/Vol] 104 mmol/L Normal 98-107 [facility] Comment on above: Performed By: #### H RELL DUMONT3M #### [facility] [address] [place] [address] Comprehensive Metabolic Pane l w/ Reflex to MGon 03-19-2022 Albumin [Mass/Vol] 3.6 g/dL 3.5 - 5.0 g/dL [facility] ALP (Bld) [Catalytic activity/Vol] 62 U/L 38 - 126 U/L [facility] ALT [Catalytic activity/Vol] 51 U/L High 0 - 34 U/L [facility] Comment on above: The ALT test is [...] - 1.25 mg/dL [facility] EGFR IF NonAfrican Ukrainian 81.5 mL/min >60 [facility] Comment on above: [...] [Mass/Vol] 15 mg/dL 9 - 20 mg/dL [facility] Test Performed by [address] LAB [facility] Culture, Urineon 03-19-2022 Bacteria identified Cx Nom (U) Normal urogenital noreen present. [facility] Test Performed by [id number] [place] [address] LAB [facility] Hemogram w/ Autodiffon 03-19 Abs Baso Cnt 0.0 10*3/uL Normal 0.0-0.2 [facility] Comment on above: Performed By: #### H RELL DUMONT3M #### [address] [address] Abs Neutrophile Cnt 6.0 10*3/uL Normal 1.8-7.0 [facility] Comment on above: Performed By: #### Laura DUMONT CMP3M #### [address] [address] [place] [address] Basophils/100 WBC (Bld) 0.6 % Normal 0.0-2.0 [facility] Comment on above: Performed By: #### Laura DUMONT CMP3M #### [address] [place], [place] Eosinophils (Bld) [#/Vol] 0.2 10*3/uL Normal 0.0-0.5 [facility] Comment on above: Performed By: #### Laura DUMONT CMP3M #### [address] Eosinophils/100 WBC (Bld) 1.8 % Normal 1.0-6.0 [facility] Comment on above: Performed By: #### Laura DUMONT CMP3M #### [address] Erythrocyte distribution width (RBC) [Ratio] 12.7 % Normal 11.5-14.5 [facility] Comment on above: Performed By: #### Laura DUMONT CMP3M #### [address] Granulocytes/100 WBC (Bld) 69.4 % Normal 40.0-80.0 [facility] Comment on above: Performed By: #### Laura DUMONT CMP3M #### [address] [address] [place], [place] Hematocrit (Bld) [Volume fraction] 36.3 % Normal 35.0-47.0 [facility] Comment on above: Performed By: #### Laura DUMONT CMP3M #### [address] Hemoglobin (Bld) [Mass/Vol] 12.4 g/dL Normal 11.7-16.0 [facility] Comment on above: Performed By: #### Laura DUMONT CMP3M #### [facility] [address] [place], [place] Lymphocytes (Bld) [#/Vol] 1.9 10*3/uL Normal 1.0-4.3 [facility] Comment on above: Performed By: #### H EMDF CMP3M #### [facility] [address] [place], [place] Lymphocytes/100 WBC (Bld) 22.0 % Normal 20.0-40.0 [facility] Comment on above: Performed By: #### H EMDJosy CMP3M #### [facility] [address] [place], [place] MCH (RBC) [Entitic mass] 33.4 pg Normal 26.0-34.0 [facility] Comment on above: Performed By: #### H EMDJosy CMP3M #### [facility] [address] [place], [place] MCHC 34.3 % Normal 32.0-36.0 [facility] Comment on above: Performed By: #### H EMDJosy CMP3M #### [facility] [address] [place], [place] MCV (RBC) [Entitic vol] 97.5 fL Normal 79.0-98.0 [facility] Comment on above: Performed By: #### H EMDJosy CMP3M #### [facility] [address] [place], [place] Monocytes (Bld) [#/Vol] 0.5 10*3/uL Normal 0.0-0.8 [facility] Comment on above: Performed By: #### H EMDF CMP3M #### [facility] [address] [place], [place] Monocytes/100 WBC (Bld) 6.2 % Normal 2.0-10.0 [facility] Comment on above: Performed By: #### H EMDF CMP3M #### [facility] [address] [place], [place] Platelet mean volume (Bld) [Entitic vol] 9.1 fL Normal 7.4-12.4 [facility] Comment on above: Result Comment: MPV is a calculated measurement using platelet volume ratio. Performed By: #### H RELL DUMONT3M #### [facility] [employer] [facility] [address] [place], [place] Platelets (Bld) [#/Vol] 194 10*3/uL Normal 140-440 [facility] Comment on above: Performed By: #### Laura DUMONT CMP3M #### [facility] [employer] [facility] [address] [place], [place] RBC (Bld) [#/Vol] 3.72 10*6/uL Low 3.80-5.20 [facility] Comment on above: Performed By: #### Laura DUMONT CMP3M #### [facility] [address] [place], [place] WBC (Bld) [#/Vol] 8.6 10*3/uL Normal 3.6-10.7 [facility] Comment on above: Performed By: #### Laura DUMONT CMP3M #### [facility] [employer] [facility] [address] [place], [place] MRI ABDOMEN W WO CONTRASTon 03-19-2022 Radiology Study observation (narrative) [facility] Work Phone: CBC with Auto Differentialon 03-17-2022 [...] [Mass/Vol] 13.8 g/dL 11.7 - 16.0 g/dL [facility] Interpretation and review of laboratory results [...] - 10.7 10*3/uL [facility] Test Performed by [facility], [address] [place], [place] [address] , [address] [facility] CT Abdomen Pelvis Wo Contras ton 03-17-2022 Patient Name: JOAN FOLEY Computed Tomography ACCESSION EXAM DATE/TIME PROCEDURE ORDERING PROVIDER [id number] 03/17/2022 16:[address] Abdomen/Pelvis (Vielka VALDEZ MD, SEGUN Calvo PO, No IV) CPT code 58517 Reason For Exam (CT Abdomen/Pelvis (No PO, [...] AHMAD Transcribed Date and Time: 03/17/2022 5:26 [facility] Viji Shane MD - 03/17/2022 Patient Name: JOAN FOLEY Computed Tomography ACCESSION EXAM DATE/TIME PROCEDURE ORDERING PROVIDER [id number] 03/17/2022 16:[address] Abdomen/Pelvis (No VALDEZMD, SEGUN Calvo PO, No IV) CPT code 87515 Reason For Exam (CT Abdomen/Pelvis (No PO, [...] Contras tOrdered By: Viji Shane on 03-17-2022 [facility] Work Phone: CT Abdomen/Pelvis w/o Contra ston 03-17-2022 CT Abdomen/Pelvis w/o Contrast Patient Name: JOAN FOLEY Computed Tomography ACCESSION EXAM DATE/TIME PROCEDURE ORDERING PROVIDER [id number] 03/17/2022 16:[address] Abdomen/Pelvis (Vielka VALDEZ MD, SEGUN Calvo PO, No IV) CPT code 24621 Reason For Exam (CT Abdomen/Pelvis (No PO, [...] Transcribed Date and Time: 03/17/2022 5:26 Normal [facility] Comp Metabolic Panelon 03-17 Creatinine [Mass/Vol] 0.71 mg/dL Normal 0.52-1.25 [facility] Comment on above: Performed By: #### L IPA4, QWAL2, HEMDF, CMP3 #### [facility] [address] [place] [address] eGFR OTHER > 90.0 Normal >60 [facility] Comment on above: Result Comment: KDIG O [...] #### L IPA4, QWAL2, HEMDF, CMP3 #### [facility] [address] [place] [address] GFR/1.73 sq M.predicted among blacks MDRD (S/P/Bld) [Vol rate/Area] mL/min/{1.73_m2} Normal >60 [facility] Comment on above: Performed By: #### L IPA4, QWAL2, HEMDF, CMP3 #### [facility] [address] [place] [address] Protein [Mass/Vol] 7.6 g/dL Normal 6.3-8.2 [facility] Comment on above: Performed By: #### L IPA4, QWAL2, HEMDF, CMP3 #### [facility] [address] [place] [address] Urea nitrogen [Mass/Vol] 8 mg/dL Low 9-20 [facility] Comment on above: Performed By: #### L IPA4, QWAL2, HEMDF, CMP3 #### [facility] [address] [place] [address] ALP [Catalytic activity/Vol] 68 U/L Normal 38-126 [facility] Comment on above: Performed By: #### L IPA4, QWAL2, HEMDF, CMP3 #### [facility] [address] [place] [address] ALT [Catalytic activity/Vol] 57 U/L High 0-34 [facility] Comment on above: Result Comment: The ALT test is performed by an updated assay method. Please note that the reference intervals have been changed and are now sex specific. Performed By: #### L IPA4, QWAL2, HEMDF, CMP3 #### [facility] [address] [place] [address] AST [Catalytic activity/Vol] 40 U/L Normal 15-46 [facility] Comment on above: Performed By: #### L IPA4, QWAL2, HEMDF, CMP3 #### [facility] [address] [place] [address] Calcium [Mass/Vol] 10.1 mg/dL Normal 8.4-10.4 [facility] Comment on above: Performed By: #### L IPA4, QWAL2, HEMDF, CMP3 #### [facility] [address] [place] [address] Glucose [Mass/Vol] 99 mg/dL Normal 70-100 [facility] Comment on above: Performed By: #### L IPA4, QWAL2, HEMDF, CMP3 #### [facility] [address] [place] [address] Anion gap [Moles/Vol] 8 mmol/L Normal 3-13 [facility] Comment on above: Performed By: #### L IPA4, QWAL2, HEMDF, CMP3 #### [facility] [address] [place] [address] Bilirubin [Mass/Vol] 0.6 mg/dL Normal 0.2-1.3 [facility] Comment on above: Performed By: #### L IPA4, QWAL2, HEMDF, CMP3 #### [facility] [address] [place] [address] CO2 [Moles/Vol] 24 mmol/L Normal 22-30 [facility] Comment on above: Performed By: #### L IPA4, QWAL2, HEMDF, CMP3 #### [facility] [address] [place], [place] [id number] Albumin [Mass/Vol] 4.8 g/dL Normal 3.5-5.0 [facility] Comment on above: Performed By: #### L IPA4, QWAL2, HEMDF, CMP3 #### [facility] [address] [place] [address] Chloride [Moles/Vol] 103 mmol/L Normal 98-107 [facility] Comment on above: Performed By: #### L IPA4, QWAL2, HEMDF, CMP3 #### [facility] [address] [place] [address] Potassium [Moles/Vol] 4.2 mmol/L Normal 3.5-5.1 [facility] Comment on above: Performed By: #### L IPA4, QWAL2, HEMDF, CMP3 #### [facility] [address] [place] [address] Sodium [Moles/Vol] 135 mmol/L Normal 135-145 [facility] Comment on above: Performed By: #### L IPA4, QWAL2, HEMDF, CMP3 #### [facility] [address] [place] [address] Complete Urinalysison 2021 Appearance (U) Clear Normal Clear [facility] Comment on above: Result Comment: . Performed By: #### C UA2 #### [facility] [address] [place] [address] Bilirubin,Urine Negative Normal Negative [facility] Comment on above: Result Comment: . Performed By: #### C UA2 #### [facility] [address] [place] [address] Color (U) COLORLESS Normal Lt. Yellow [facility] Comment on above: Result Comment: . Performed By: #### C UA2 #### [facility] [address] [place] [address] Glucose Ql (U) Normal Normal Normal (<70) [facility] Comment on above: Result Comment: . Performed By: #### C UA2 #### [facility] [address] [place] [address] Ketone,Urine 10 mg/dL Abnormal Negative [facility] Comment on above: Result Comment: . Performed By: #### C UA2 #### [facility] [address] [place] [address] Leukocytes,Urine Negative Normal Negative [facility] Comment on above: Result Comment: . Performed By: #### C UA2 #### [facility] [address] [place] [address] Nitrites,Urine Negative Normal Negative [facility] Comment on above: Result Comment: . Performed By: #### C UA2 #### [facility] [address] [place] [address] Occult Blood,Urine Negative Normal Negative [facility] Comment on above: Result Comment: . Performed By: #### C UA2 #### [facility] [address] [place] [address] pH,Urine 6.5 Normal 5.0-8.0 [facility] Comment on above: Result Comment: . Performed By: #### C UA2 #### [facility] [address] [place] [address] Specific Babb,Urine 1.006 Normal 1.005 - 1.030 [facility] Comment on above: Result Comment: . Performed By: #### C UA2 #### [facility] [address] [place] [address] Total Protein,Urine Negative Normal Negative [facility] Comment on above: Result Comment: . Performed By: #### C UA2 #### [facility] [address] [place] [address] Urobilinogen,Urine Normal Normal Normal (0-1) [facility] Comment on above: Result Comment: . Performed By: #### C UA2 #### [facility] [address] [place] [address] Comprehensive Metabolic Pane [facility] 03-17-2022 Albumin [Mass/Vol] 4.8 g/dL 3.5 - 5.0 g/dL [facility] ALP (Bld) [Catalytic activity/Vol] 68 U/L 38 - 126 U/L [facility] ALT [Catalytic activity/Vol] 57 U/L High 0 - 34 U/L [facility] Comment on above: The ALT test is [...] - 1.25 mg/dL [facility] EGFR IF NonAfrican Ukrainian >90.0 >60 mL/min [facility] Comment on above: [...] [facility] HCG Qualitative, Serumon hCG Qual Negative [facility] Comment on above: Reference Range: NEG ATIVE Effective 12/21/2019, the reference interval for the qualitative test has been updated. This test detects hCG at concentrations of 10 mIU/L or greater in serum. Test Performed by [facility], [address] , [place], [place] [id number] [place] [address] LAB [facility] Hemogram w/ Autodiffon 03-17 Abs Baso Cnt 0.1 10*3/uL Normal 0.0-0.2 [facility] Comment on above: Performed By: #### L IPA4, QWAL2, HEMDF, CMP3 #### [facility] [address] [place] [address] Abs Neutrophile Cnt 9.1 10*3/uL High 1.8-7.0 [facility] Comment on above: Performed By: #### L IPA4, QWAL2, HEMDF, CMP3 #### [facility] [address] [place] [address] Basophils/100 WBC (Bld) 0.5 % Normal 0.0-2.0 [facility] Comment on above: Performed By: #### L IPA4, QWAL2, HEMDF, CMP3 #### [facility] [address] [place] [address] Eosinophils (Bld) [#/Vol] 0.1 10*3/uL Normal 0.0-0.5 [facility] Comment on above: Performed By: #### L IPA4, QWAL2, HEMDF, CMP3 #### [facility] [address] [place] [address] Eosinophils/100 WBC (Bld) 1.0 % Normal 1.0-6.0 [facility] Comment on above: Performed By: #### L IPA4, QWAL2, HEMDF, CMP3 #### [facility] [address] [place] [address] Erythrocyte distribution width (RBC) [Ratio] 12.3 % Normal 11.5-14.5 [facility] Comment on above: Performed By: #### L IPA4, QWAL2, HEMDF, CMP3 #### [facility] [address] [place] [address] Granulocytes/100 WBC (Bld) 75.8 % Normal 40.0-80.0 [facility] Comment on above: Performed By: #### L IPA4, QWAL2, HEMDF, CMP3 #### [facility] [address] [place] [address] Hematocrit (Bld) [Volume fraction] 40.0 % Normal 35.0-47.0 [facility] Comment on above: Performed By: #### L IPA4, QWAL2, HEMDF, CMP3 #### [facility] [address] [place] [address] Hemoglobin (Bld) [Mass/Vol] 13.8 g/dL Normal 11.7-16.0 [facility] Comment on above: Performed By: #### L IPA4, QWAL2, HEMDF, CMP3 #### [facility] [address] [place] [address] Lymphocytes (Bld) [#/Vol] 1.9 10*3/uL Normal 1.0-4.3 [facility] Comment on above: Performed By: #### L IPA4, QWAL2, HEMDF, CMP3 #### [facility] [address] [place] [address] Lymphocytes/100 WBC (Bld) 15.7 % Low 20.0-40.0 [facility] Comment on above: Performed By: #### L IPA4, QWAL2, HEMDF, CMP3 #### [facility] [address] [place] [address] MCH (RBC) [Entitic mass] 33.1 pg Normal 26.0-34.0 [facility] Comment on above: Performed By: #### L IPA4, QWAL2, HEMDF, CMP3 #### [facility] [address] [place] [address] MCHC 34.5 % Normal 32.0-36.0 [facility] Comment on above: Performed By: #### L IPA4, QWAL2, HEMDF, CMP3 #### [facility] [address] [place] [address] MCV (RBC) [Entitic vol] 95.9 fL Normal 79.0-98.0 [facility] Comment on above: Performed By: #### L IPA4, QWAL2, HEMDF, CMP3 #### [facility] [address] [place] [address] Monocytes (Bld) [#/Vol] 0.7 10*3/uL Normal 0.0-0.8 [facility] Comment on above: Performed By: #### L IPA4, QWAL2, HEMDF, CMP3 #### [facility] [address] [place] [address] Monocytes/100 WBC (Bld) 5.9 % Normal 2.0-10.0 [facility] Comment on above: Performed By: #### L IPA4, QWAL2, HEMDF, CMP3 #### [facility] [address] [place] [address] Platelet mean volume (Bld) [Entitic vol] 10.4 fL Normal 7.4-12.4 [facility] Comment on above: Result Comment: MPV is a calculated measurement using platelet volume ratio. Performed By: #### L IPA4, QWAL2, HEMDF, CMP3 #### [facility] [address] [place] [address] Platelets (Bld) [#/Vol] 228 10*3/uL Normal 140-440 [facility] Comment on above: Performed By: #### L IPA4, QWAL2, HEMDF, CMP3 #### [facility] [address] [place] [address] RBC (Bld) [#/Vol] 4.17 10*6/uL Normal 3.80-5.20 [facility] Comment on above: Performed By: #### L IPA4, QWAL2, HEMDF, CMP3 #### [facility] [address] [place] [address] WBC (Bld) [#/Vol] 12.0 10*3/uL High 3.6-10.7 [facility] Comment on above: Performed By: #### L IPA4, QWAL2, HEMDF, CMP3 #### [facility] [address] [place] [address] Lipaseon 03-17-2022 Lipase [Catalytic activity/Vol] 50 U/L Normal 23-300 [facility] Comment on above: Performed By: #### L IPA4, QWAL2, HEMDF, CMP3 #### [facility] [address] [place] [address] Lipase [Catalytic activity/Vol] 50 U/L 23 - 300 U/L [facility] No Panel Informationon 03-17 Test Performed by [facility], [address] , [place], [place] [id number] [place] [address] LAB [facility] US NON OB TRANSVAGINALon Patient Name: JOAN FOLEY Ultrasound ACCESSION EXAM DATE/TIME PROCEDURE ORDERING PROVIDER [id number] 03/17/2022 16:50 EDT US Transvaginal MD COURTNEY, SEGUN Calvo CPT code 38809 Reason For Exam (US Transvaginal) looking for [...] THOMAS Transcribed Date and Time: 03/17/2022 5:12 [facility] Jose Sarabia M D - 03/17/2022 Patient Name: JOAN FOLEY Ultrasound ACCESSION EXAM DATE/TIME PROCEDURE ORDERING PROVIDER [id number] 03/17/2022 16:50 EDT US Transvaginal MD COURTNEY, SEGUN Calvo CPT code 96782 Reason For Exam (US Transvaginal) looking for [...] Ultrasound ACCESSION EXAM DATE/TIME PROCEDURE ORDERING PROVIDER [id number] 03/17/2022 16:50 EDT US Transvaginal MD COURTNEY, SEGUN Calvo CPT code 94537 Reason For Exam (US Transvaginal) looking for [...] Transcribed Date and Time: 03/17/2022 5:12 Normal [facility] Urinalysison 03-17-2022 Appearance (U) Clear Clear NA [facility] Comment on above: . Bilirubin Urine Negative Negative mg/dL [facility] Comment on above: . Color (U) COLORLESS Lt. Yellow NA [facility] Comment on above: . Glucose, Ur Normal Normal (<70) mg/dL [facility] Comment on above: . Interpretation and review of laboratory results Abnormal [facility] Ketones Ql (U) 10 mg/dL Abnormal Negative [facility] Comment on above: . LEUKOCYTES, UA Negative Negative Charlie/uL [facility] Comment on above: . Nitrite, Urine Negative Negative NA [facility] Comment on above: . Occult Blood,Urine Negative Negative mg/dL [facility] Comment on above: . pH (U) 6.5 [pH] [facility] Comment on above: . Specific Babb, Urine 1.006 S [facility] Comment on above: . Total Protein, Urine Negative Negativ e mg/dL [facility] Comment on above: . Urobilinogen, Urine Normal Normal (0-1) mg/dL [facility] Comment on above: . Test Performed by [facility], [address] , [place], [place] [id number] [place] [address] [facility] hCG Qual [place] 03-17-2022 hCG Qual Preg Negative Normal [facility] Comment on above: Result Comment: Refe rence Range: NEGATIVE Effective 12/21/2019, the reference interval for the qualitative test has been updated. This test detects hCG at concentrations of 10 mIU/L or greater in serum. Performed By: #### L IPA4, QWAL2, HEMDF, CMP3 #### [facility] [address] [place] [address] COLONOSCOPY DIAGNOSTICon [facility] EGD DIAGNOSTICon 03-15-2022 [facility] CALPROTECTIN,FECALon 022 Calprotectin (Stl) [Mass/Mass] <27.1 0 - 50 mg/kg [facility] C. DIFFICILE PCRon C. difficile toxin genes JEANNE+probe Ql (Stl) Positive Abnormal Negative for C. difficile toxin by PCR [facility] FECAL OCCULT BLOOD TESTon Lower GI hemoglobin IA Ql (Stl) Negative Negative [facility] G. lamblia+Cryptosporidium s p Ag IA Ql (Stl)on 01-14-2022 Cryptosporidium sp Ag Ql (Stl) Negative Negative [facility] G. lamblia Ag Ql (Stl) Negative Negative [facility] Gastrointestinal pathogens i dentified JEANNE+probe Nom (Stl)on 01-14-2022 Campylobacter sp DNA JEANNE+probe Nom (Unsp spec) Not detected Not Detected [facility] Salmonella sp DNA JEANNE+probe Ql (Unsp spec) Not detected Not Detected [facility] Shiga toxin stx gene JEANNE+probe Nom (Unsp spec) Not detected Not Detected [facility] Shigella sp DNA JEANNE+probe Ql (Unsp spec) Not detected Not Detected [facility] H. pylori IgG IA Qlon 2021 H. pylori IgG, Qualitative Negative Negative [facility] C-REACTIVE PROTEIN (CRP)on 0 01-12-2022 CRP [Mass/Vol] 0.7 mg/dL <0.9 mg/dL [facility] ALLIED HEALTHon 09-11-2021 [facility] HNO ID: [id number] Author: RT Troy(R) Service: Radiology Author Type: Technologist Type: Allied [...] RT Troy(R) September 11, 2021 4:53 PM [facility] ED NOTEon 09-11-2021 ED NOTE HNO ID: [id number] Author: Rayna Brown RN Service: ? Author Type: Registered Nurse Type: ED Notes Filed: 09/11/2021 5:57 PM Note Text: Discharge instructions provided to pt. All questions answered. Pt ambulated to [facility] in stable condition. [facility] ED NOTE HNO ID: [id number] Author: Michelle Siddiqi RN Service: ? Author Type: Registered Nurse Type: ED Notes Filed: 09/11/2021 4:31 PM Note Text: Pt to ED with c/c dog bite to right wrist 1 puncture site on Tuesday. Pt went to [facility] and sent to ED. Pt states pain traveling down to fingers no red streaks noted or signs of sever infection. Pt states taking motrin around 1300 today and having mild fevers on and off since yesterday. [facility] ED PROV NOTEon 09-11-2021 ED PROV NOTE HNO ID: [id number] Author: Sadia Reaves PA-C Service: ? Author Type: Physician Switchboard Clerk Type: ED Provider Notes Filed: 09/11/2021 5:35 [...] ABDOM HYSTERECTOMY 2004 Hysterectomy, AMANDA FAMILY HISTORY Adopted: Yes [...] acute bony abnormality. No radiopaque foreign body. [employer]et [employer] Machine Operator: [facility] Transcribe Date/Time: Sep 11 2021 4:56P Dictated by : Essie MOORE MD This examination was interpreted and the report reviewed and electronically signed by: Essie MOORE MD on Sep 11 2021 4:59PM EST XR HAND GENERAL 3V PA/LAT/OBL RIGHT Final Result IMPRESSION: No acute sherwin (more content not included)... Normal [facility] XR HAND 3V PA/LAT/OBL RTon 1 11-12-2020 [...] acute bony abnormality. No radiopaque foreign body. [employer] Machine Operator: [facility] Transcribe Date/Time: Sep 11 2021 4:56P Dictated by : Essie MOORE MD This examination was interpreted and the report reviewed and electronically signed by: Essie MOORE MD on Sep 11 2021 4:59PM EST [id number] Normal [facility] XR WRIST 4V PA/LAT/OBL/SCAPH RTon 09-11-2021 [...] acute bony abnormality. No radiopaque foreign body. [employer] Machine Operator: [facility] Transcribe Date/Time: Sep 11 2021 4:56P Dictated by : Essie MOORE MD This examination was interpreted and the report reviewed and electronically signed by: Essie MOORE MD on Sep 11 2021 4:59PM EST [id number] [facility] XR Lumbar spine 3 Viewson IMPRESSION: No radiographic evidence of acute osseous abnormality [employer] Machine Operator: [facility] Transcribe Date/Time: Aug 12 2021 4:52P Dictated [...] disc space height. DIVISION OF RADIOLOGY Provider, [facility] - 08/12/2021 * * *Final Report* * [...] No radiographic evidence of acute osseous abnormality [employer] Machine Operator: [facility] Transcribe Date/Time: Aug 12 2021 4:52P Dictated by : KELSIE CARDENAS MD This examination was interpreted and the report reviewed and electronically signed by: KELSIE CARDENAS MD on Aug 12 2021 4:52PM EST [facility] Radiology Study observation (narrative) Jessica alcaraz [facility] XR Lumbar spine 3 ViewsOrder ed By: [facility] Provider on 08-12-2021 [facility] Comprehensive Panelon 2019 ALP [Catalytic activity/Vol] 72 U/L Normal 45-117 [facility] Comment on above: Performed By: #### P 14 #### [facility] [address], [place] [address] Protein [Mass/Vol] 5.9 g/dL Low 6.4-8.2 [facility] Comment on above: Performed By: #### P 14 #### [facility] [address], [place] [address] Bilirubin [Mass/Vol] 0.5 mg/dL Normal 0.2-1.0 [facility] Comment on above: Performed By: #### P 14 #### [facility] [address], [place] [address] ALT [Catalytic activity/Vol] 153 U/L High 12-78 [facility] Comment on above: Performed By: #### P 14 #### [facility] [address], [place] [address] AST [Catalytic activity/Vol] 95 U/L High 15-37 [facility] Comment on above: Performed By: #### P 14 #### [facility] [address], [place] [address] Creatinine [Mass/Vol] 0.72 mg/dL Normal 0.51-0.95 [facility] Comment on above: Result Comment: Use of this assay is not recommended for patients undergoing treatment with phenindione, due to the potential for falsely depressed results. Performed By: #### P 14 #### [facility] [address], [place] [address] Anion gap [Moles/Vol] 6 mmol/L Low 8-16 [facility] Comment on above: Performed By: #### P 14 #### [facility] [address], [place] [address] CO2 [Moles/Vol] 28 mmol/L Normal 21-32 [facility] Comment on above: Performed By: #### P 14 #### [facility] [address], [place] [address] Glucose [Mass/Vol] 117 mg/dL High 70-99 [facility] Comment on above: Performed By: #### P 14 #### [facility] [address], [place] [address] Albumin [Mass/Vol] 3.2 g/dL Low 3.4-5.0 [facility] Comment on above: Performed By: #### P 14 #### [facility] [address], [place] [address] Calcium [Mass/Vol] 8.2 mg/dL Low 8.5-10.1 [facility] Comment on above: Performed By: #### P 14 #### [facility] [address], [place] [address] Urea nitrogen [Mass/Vol] 8 mg/dL Normal 7-18 [facility] Comment on above: Performed By: #### P 14 #### [facility] [address], [place] [address] Chloride [Moles/Vol] 109 mmol/L High 98-107 [facility] Comment on above: Performed By: #### P 14 #### [facility] [address], [place] [address] Potassium [Moles/Vol] 3.7 mmol/L Normal 3.5-5.1 [facility] Comment on above: Performed By: #### P 14 #### [facility] [address], [place] [address] Sodium [Moles/Vol] 139 mmol/L Normal 136-145 [facility] Comment on above: Performed By: #### P 14 #### [facility] [address], [place] [address] D-Dimer Quantitativeon 10-27 D-Dimer, Quant. <=190 Normal <500 [facility] Comment on above: Result Comment: 500 [...] >=35.8%. Performed By: #### D DMRN #### [place] [address] Hemogramon 10-27-2019 Erythrocyte distribution width (RBC) [Ratio] 11.9 % Normal 11.7-14.4 [facility] Comment on above: Performed By: #### C BC1 #### [place] [address] Hematocrit (Bld) [Volume fraction] 35.6 % Normal 34.1-44.9 [facility] Comment on above: Performed By: #### C BC1 #### [place] [address] Hemoglobin (Bld) [Mass/Vol] 11.8 g/dL Normal 11.2-15.7 [facility] Comment on above: Performed By: #### C BC1 #### [place] [address] MCH (RBC) [Entitic mass] 33.1 pg High 25.6-32.2 [facility] Comment on above: Performed By: #### C BC1 #### [place] [address] MCHC (RBC) [Mass/Vol] 33.1 % Normal 31.6-34.8 [facility] Comment on above: Performed By: #### C BC1 #### [place] [address] MCV (RBC) [Entitic vol] 100.0 fL High 79.4-94.8 [facility] Comment on above: Performed By: #### C BC1 #### [address] [address] Platelet mean volume (Bld) [Entitic vol] 9.8 fL Normal 9.4-12.3 [facility] Comment on above: Performed By: #### C BC1 #### [facility] [address] [place] [id number] Platelets (Bld) [#/Vol] 205 thou/cmm Normal 182-369 [facility] Comment on above: Performed By: #### C BC1 #### [place] [address] RBC (Bld) [#/Vol] 3.56 mil/cmm Low 3.93-5.22 [facility] Comment on above: Performed By: #### C BC1 #### [place] [address] RDW SD 43.7 fl Normal 36.4-46.3 [facility] Comment on above: Performed By: #### C BC1 #### [place] [address] WBC (Bld) [#/Vol] 6.44 thou/cmm Normal 3.98-10.04 [facility] Comment on above: Performed By: #### C BC1 #### [place] [address] MDRD GFRon 10-27-2019 GFR/1.73 sq M predicted among non-blacks MDRD (S/P/Bld) [Vol rate/Area] mL/min/{1.73_m2} Normal >60mL/min/1 .73m2 [facility] Comment on above: Result Comment: If t he patient is , multiply the result by 1.210. Performed By: #### G FR #### [place] [address] Urinalysis Routineon 020 Bacteria LM.HPF (Urine sed) [#/Area] NONE Normal None [facility] Comment on above: Performed By: #### U RIN2 #### [place] [address] Ep Cells Urine 3.5 /hpf Normal 0.0-5.0 [facility] Comment on above: Performed By: #### U RIN2 #### [facility] [address] [place] [address] Hyaline Cast 2.4 /lpf High 0.0-1.0 [facility] Comment on above: Performed By: #### U RIN2 #### [place] [address] RBC LM.HPF (Urine sed) [#/Area] 0.6 /[HPF] Normal 0.0-5.0 [facility] Comment on above: Performed By: #### U RIN2 #### [place] [address] WBC LM.HPF (Urine sed) [#/Area] 0.8 /[HPF] Normal 0.0-5.0 [facility] Comment on above: Performed By: #### U RIN2 #### [place] [address] Appearance (U) CLEAR Normal [facility] Comment on above: Performed By: #### U RIN2 #### [place] [address] Bilirubin (U) [Mass/Vol] Negative Normal Negative [facility] Comment on above: Performed By: #### U RIN2 #### [place] [address] Color (U) YELLOW Normal [facility] Comment on above: Performed By: #### U RIN2 #### [place] [address] Glucose Ql (U) Negative Normal Negative [facility] Comment on above: Performed By: #### U RIN2 #### [place] [address] Hemoglobin,Urine Negative Normal Negative [facility] Comment on above: Performed By: #### U RIN2 #### [place] [address] Ketone Urine TRACE Abnormal Negative [facility] Comment on above: Performed By: #### U RIN2 #### [facility] [address], [place] [address] Leukocytes Esterase Negative Normal Negative [facility] Comment on above: Performed By: #### U RIN2 #### [facility] [address], [place] [address] Nitrites Urine Negative Normal Negative [facility] Comment on above: Performed By: #### U RIN2 #### [facility] [address] [place] [address] pH (U) 5.0 [pH] Normal 5.0-8.0 [facility] Comment on above: Performed By: #### U RIN2 #### [facility] [address] [place] [address] Protein (U) [Mass/Vol] Negative Normal Negative [facility] Comment on above: Performed By: #### U RIN2 #### [facility] [address] [place] [address] Specific Babb, Ur 1.031 Normal 1.005-1.030 [facility] Comment on above: Performed By: #### U RIN2 #### [facility] [address], [place] [address] Urobilinogen,Ur 0.2 EU/dL Normal 0.2-1.0 [facility] Comment on above: Performed By: #### U RIN2 #### [facility] [address] [place] [address] XR FOOT 3V AP/LAT/OBL RTon 1 10-17-2018 XR FOOT 3V AP/LAT/OBL RT * * *Final Report* * * DATE OF EXAM: Aug 17 2019 10:28AM LDX 5337 - XR FOOT 3V AP/LAT/OBL RT / PROCEDURE REASON: Foot trauma, [place]ib[place] positive, fx suspected, initial exam * * * * Physician Interpretation * * * * XR FOOT 3V AP/LAT/OBL RT HISTORY: 39 years old Clinical information: Foot trauma, [place]ib[place] positive, fx suspected, initial exam PT DROPPED PLEXIGLAS ON R FOOT LAST NIGHT 08/16 TECHNIQUE: Images: XR FOOT 3V AP/LAT/OBL RT Comparison: None. RESULT: Metatarsal and tarsal bones appear intact No fractures or dislocations are seen. IMPRESSION: No acute pathology. Rivet Hole Machine Operator: COLLINS Transcribe Date/Time: Aug 17 2019 11:17A Dictated by : ALTA BOWERS MD This examination was interpreted and the report reviewed and electronically signed by: ALTA BOWERS MD on Aug 17 2019 11:18AM EST Normal [facility] CT FLANK WO IVCONon -01-[address] FLANK WO IVCON * * *Final Report* * * DATE OF EXAM: Feb 07 2019 8:00AM [facility] - CT FLANK WO IVCON [...] in clinically relevant disease to these organs. Rivet Hole Machine Operator: PSCB Transcribe Date/Time: Feb 07 2019 8:06A Dictated by : ERNIE BENDER MD This examination was interpreted and the report reviewed and electronically signed by: ERNIE BENDER MD on Feb 07 2019 4:05PM EST [id number] [facility] PROGRESSon 02-07-2019 Protein mass conc HNO ID: [id number] Author: CHELY Sheikh (Ct) Service: Radiology Author Type: Boat Garnisher Type: Progress Notes Filed: 02/07/2019 7:58 AM [...] CHELY Sheikh February 07, 2019 7:58 AM [facility] Office Visiton 06-23-2017 Fall risk assessment No Invalid Interpretation Code [employer] Work Phone: [phone] Protein mass conc Done Invalid Interpretation Code [employer] Work Phone: [phone] Tobacco smoking status NHIS Current every day smoker Invalid Interpretation Code [employer] Work Phone: [phone] Coumadin Management: Giuliaari n Calcon 06-09-2017 INR Coag RelTime (Bld) Hospital lab Invalid Interpretation Code [employer] Work Phone: [phone] INR Coag RelTime (PPP) 2.4 {INR} Invalid Interpretation Code [employer] Work Phone: [phone] international normalized ratio (INR) range 2 to 3 Invalid Interpretation Code [facility] Work Phone: [phone] Prothrombin time (PT) Coag time (PPP) 25.4 s Invalid Interpretation Code [facility] Work Phone: [phone] Lab Report: Prothrombin Time w/INRon 06-09-2017 Prothrombin time (PT) Coag time (PPP) 25.4 s High 11.7-14.9 [facility] Work Phone: [phone] Coumadin Management: Warfari n Calcon 05-30-2017 INR Coag RelTime (Bld) Hospital lab [facility] Work Phone: [phone] INR Coag RelTime (PPP) 2.9 {INR} [facility] Work Phone: [phone] international normalized ratio (INR) range 2 to 3 [facility] Work Phone: [phone] Prothrombin time (PT) Coag time (PPP) 29.0 s [facility] Work Phone: [phone] Lab Report: Prothrombin Time w/INRon 05-30-2017 Prothrombin time (PT) Coag time (PPP) 29 s High 11.7-14.9 [facility] Work Phone: [phone] Coumadin Management: Warfari n Calcon 05-23-2017 Coagulation tissue factor induced in platelet poor plasma 22.2 s Invalid Interpretation Code [facility] Work Phone: [phone] INR in blood by coagulation Hospital lab Invalid Interpretation Code [facility] Work Phone: [phone] INR in blood by coagulation 2.0 {INR} Invalid Interpretation Code [facility] Work Phone: [phone] INR in blood by coagulation 2 to 3 Invalid Interpretation Code [facility] Work Phone: [phone] Lab Report: Prothrombin Time w/INRon 05-23-2017 Coagulation tissue factor induced in platelet poor plasma 22.2 s High 11.7-14.9 [facility] Work Phone: [phone] Coumadin Management: Warfari n Calcon 05-20-2017 Coagulation tissue factor induced in platelet poor plasma 16.0 s Invalid Interpretation Code [facility] Work Phone: [phone] INR in blood by coagulation Hospital lab Invalid Interpretation Code [facility] [employer] Work Phone: [phone] INR in blood by coagulation 1.3 {INR} Invalid Interpretation Code [facility] [employer] Work Phone: [phone] INR in blood by coagulation 2 to 3 Invalid Interpretation Code [facility] [employer] Work Phone: [phone] Lab Report: Prothrombin Time w/INRon 05-20-2017 Coagulation tissue factor induced in platelet poor plasma 16 s High 11.7-14.9 [employer] Work Phone: [phone] Coumadin Management: Warfari n Calcon 05-18-2017 Coagulation tissue factor induced in platelet poor plasma 18.3 s Invalid Interpretation Code [employer] Work Phone: [phone] INR in blood by coagulation Hospital lab Invalid Interpretation Code [employer] Work Phone: [phone] INR in blood by coagulation 1.6 {INR} Invalid Interpretation Code [employer] Work Phone: [phone] INR in blood by coagulation 2 to 3 Invalid Interpretation Code [employer] Work Phone: [phone] Lab Report: Prothrombin Time w/INRon 05-18-2017 Coagulation tissue factor induced in platelet poor plasma 18.3 s High 11.7-14.9 [employer] Work Phone: [phone] Clinical Lists Update: 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-2017 Left ventricular Ejection fraction 65 % Invalid Interpretation Code [employer] Work Phone: [phone] Office Visiton 05-16-2017 Documentation of current medications (procedure) Done Invalid Interpretation Code [employer] Work Phone: [phone] Fall risk assessment Fall risk assessment Invali d Interpretation Code [employer] Work Phone: [phone] Protein mass conc Done [employer] Work Phone: [phone] Vital Signs Date Time Vital Sign Value Performing Clinician Facility 04-03-2025 16:31-0400 Body mass index (BMI) [Ratio] 24.72 kg/m2 Carole Moore STENCIL PRINTER.CLAIMS SUPERVISOR Work Phone: [facility] 04-03-2025 16:31-0400 Body weight 65.32 kg Carole Moore STENCIL PRINTER.CLAIMS SUPERVISOR Work Phone: [facility] 04-03-2025 16:31-0400 Diastolic blood pressure 68 mm[Hg] Carole Older STENCIL PRINTER.CLAIMS SUPERVISOR Work Phone: [facility] 04-03-2025 16:31-0400 Heart rate 90 /min Carole Older STENCIL PRINTER.CLAIMS SUPERVISOR Work Phone: [facility] 04-03-2025 16:31-0400 Respiratory rate 16 /min Carole Older STENCIL PRINTER.CLAIMS SUPERVISOR Work Phone: [facility] 04-03-2025 16:31-0400 SaO2% (BldA) [Mass fraction] 99 % Carole Older STENCIL PRINTER.CLAIMS SUPERVISOR Work Phone: [facility] 04-03-2025 16:31-0400 Systolic blood pressure 122 mm[Hg] Carole Older STENCIL PRINTER.CLAIMS SUPERVISOR Work Phone: [facility] 12-11-2024 16:36-0500 Body mass index (BMI) [Ratio] 27.02 kg/m2 Lindsay 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 Work Phone: [facility] 12-11-2024 16:36-0500 Body temperature 98.6 [degF] Lindsay 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 Work Phone: [facility] 12-11-2024 16:36-0500 Body weight 71.4 kg Lindsay 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 Work Phone: [facility] 12-11-2024 16:36-0500 Diastolic blood pressure 80 mm[Hg] Lindsay 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 Work Phone: [facility] 12-11-2024 16:36-0500 Heart rate 100 /min Lindsay 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 Work Phone: [facility] 12-11-2024 16:36-0500 Respiratory rate 18 /min Lindsay 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 Work Phone: [facility] 12-11-2024 16:36-0500 SaO2% (BldA) [Mass fraction] 98 % Lindsay 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 Work Phone: [facility] 12-11-2024 16:36-0500 Systolic blood pressure 122 mm[Hg] Lindsay 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 Work Phone: [facility] 09-25-2024 13:33-0500 Body mass index (BMI) [Ratio] 27.06 kg/m2 Perry Athy PA-C Work Phone: [facility] 09-25-2024 13:33-0500 Body temperature 98.6 [degF] Perry Athy PA-C Work Phone: [facility] 09-25-2024 13:33-0500 Body weight 71.5 kg Perry Athy PA-C Work Phone: [facility] 09-25-2024 13:33-0500 Diastolic blood pressure 76 mm[Hg] Perry Athy PA-C Work Phone: [facility] 09-25-2024 13:33-0500 Heart rate 96 /min Perry Athy PA-C Work Phone: [facility] 09-25-2024 13:33-0500 Respiratory rate 18 /min Perry Athy PA-C Work Phone: [facility] 09-25-2024 13:33-0500 SaO2% (BldA) [Mass fraction] 98 % Perry Athy PA-C Work Phone: [facility] 09-25-2024 13:33-0500 Systolic blood pressure 112 mm[Hg] Perry Athy PA-C Work Phone: [facility] 01-02-2024 15:39-0400 Body weight 80.29 kg Jose Hayes MD Work Phone: [facility] 01-02-2024 15:39-0400 Diastolic blood pressure 112 mm[Hg] Jose Hayes MD Work Phone: [facility] 01-02-2024 15:39-0400 Heart rate 104 /min Jose Hayes MD Work Phone: [facility] 01-02-2024 15:39-0400 SaO2% (BldA) [Mass fraction] 97 % Jose Hayes MD Work Phone: [facility] 01-02-2024 15:39-0400 Systolic blood pressure 151 mm[Hg] Jose Hayes MD Work Phone: [facility] 04-25-2023 15:27-0400 Diastolic blood pressure 82 mm[Hg] [facility] 04-25-2023 15:27-0400 Heart rate 81 /min [facility] 04-25-2023 15:27-0400 Respiratory rate 16 /min [facility] 04-25-2023 15:27-0400 SaO2% (BldA) [Mass fraction] 98 % [facility] 04-25-2023 15:27-0400 Systolic blood pressure 141 mm[Hg] [facility] 04-25-2023 13:25-0400 Body height 162.56 cm [facility] 04-25-2023 13:25-0400 Body mass index (BMI) [Ratio] 32.3 kg/m2 [facility] 04-25-2023 13:25-0400 Body temperature 98 [degF] [facility] 04-25-2023 13:25-0400 Body weight 85.6 kg [facility] 04-18-2023 15:46-0400 Diastolic blood pressure 88 mm[Hg] Bee Fairchild STENCIL PRINTER.CLAIMS SUPERVISOR Work Phone: [facility] 04-18-2023 15:46-0400 Heart rate 99 /min Bee Fairchild STENCIL PRINTER.CLAIMS SUPERVISOR Work Phone: [facility] 04-18-2023 15:46-0400 Respiratory rate 16 /min Bee Fairchild STENCIL PRINTER.CLAIMS SUPERVISOR Work Phone: [facility] 04-18-2023 15:46-0400 SaO2% (BldA) [Mass fraction] 95 % Bee Fairchild STENCIL PRINTER.CLAIMS SUPERVISOR Work Phone: [facility] 04-18-2023 15:46-0400 Systolic blood pressure 146 mm[Hg] Bee Fairchild STENCIL PRINTER.CLAIMS SUPERVISOR Work Phone: [facility] 04-11-2023 10:56-0400 Body height 162.6 cm Albina Denbow PA-C Work Phone: [facility] 04-11-2023 10:56-0400 Body temperature 97.9 [degF] Albina Denbow PA-C Work Phone: [facility] 04-11-2023 10:56-0400 Body weight 84.37 kg Albina Denbow PA-C Work Phone: [facility] 04-11-2023 10:56-0400 Diastolic blood pressure 76 mm[Hg] Albina Denbow PA-C Work Phone: [facility] 04-11-2023 10:56-0400 Heart rate 96 /min Albina Denbow PA-C Work Phone: [facility] 04-11-2023 10:56-0400 Respiratory rate 12 /min Albina Denbow PA-C Work Phone: [facility] 04-11-2023 10:56-0400 SaO2% (BldA) [Mass fraction] 97 % Albina Denbow PA-C Work Phone: [facility] 04-11-2023 10:56-0400 Systolic blood pressure 130 mm[Hg] Albina Denbow PA-C Work Phone: [facility] 01-07-2023 09:36-0400 Body height 162.6 cm Amos Smith STENCIL PRINTER.CLAIMS SUPERVISOR Work Phone: [facility] 01-07-2023 09:36-0400 Body weight 79.83 kg Amos Smith STENCIL PRINTER.CLAIMS SUPERVISOR Work Phone: [facility] 01-07-2023 09:36-0400 Diastolic blood pressure 95 mm[Hg] Amos Smith STENCIL PRINTER.CLAIMS SUPERVISOR Work Phone: [facility] 01-07-2023 09:36-0400 Heart rate 92 /min Amos Smith STENCIL PRINTER.CLAIMS SUPERVISOR Work Phone: [facility] 01-07-2023 09:36-0400 Respiratory rate 20 /min Amos Smith STENCIL PRINTER.CLAIMS SUPERVISOR Work Phone: [facility] 01-07-2023 09:36-0400 Systolic blood pressure 145 mm[Hg] Amos Smith STENCIL PRINTER.CLAIMS SUPERVISOR Work Phone: [facility] 2023 18:12-0400 Diastolic blood pressure 92 mm[Hg] MD Nicky Knight [facility] 2023 18:12-0400 Heart rate 69 /min MD Nicky Knight [facility] 2023 18:12-0400 Respiratory rate 16 /min MD Nicky [facility] 2023 18:12-0400 SaO2% (BldA) [Mass fraction] 98 % MD Nicky Knight [facility] 2023 18:12-0400 Systolic blood pressure 138 mm[Hg] MD Nicky Knight [facility] 2023 15:45-0400 Body height 162.56 cm MD Nicky Knight [facility] 2023 15:45-0400 Body mass index (BMI) [Ratio] 30.8 kg/m2 Nickyra Knight [facility] 2023 15:45-0400 Body temperature 97.6 [degF] MD Nicky Knight [facility] 2023 15:45-0400 Body weight 81.46 kg MD Nicky Knight [facility] 2023 15:01-0400 Body temperature 98.29 [degF] Angelica Aviles PA-C Work Phone: [facility] 2023 15:01-0400 Body weight 81.28 kg Angelica Aviles PA-C Work Phone: [facility] 2023 15:01-0400 Diastolic blood pressure 98 mm[Hg] Angelica Aviles PA-C Work Phone: [facility] 2023 15:01-0400 Heart rate 99 /min Angelica Kuedda PA-C Work Phone: [facility] 2023 15:01-0400 Respiratory rate 16 /min Angelica Kuдмитрийhl PA-C Work Phone: [facility] 2023 15:01-0400 SaO2% (BldA) [Mass fraction] 99 % Angelica Kuдмитрийhl PA-C Work Phone: [facility] 2023 15:01-0400 Systolic blood pressure 149 mm[Hg] Angelica Kuдмитрийhl PA-C Work Phone: [facility] 12-22-2022 20:52-0400 Diastolic blood pressure 77 mm[Hg] MD Nicky Knight [facility] 12-22-2022 20:52-0400 Heart rate 69 /min MD Nicky Knight [facility] 12-22-2022 20:52-0400 Respiratory rate 15 /min MD Nicky Knight [facility] 12-22-2022 20:52-0400 SaO2% (BldA) [Mass fraction] 99 % MD Nicky Knight [facility] 12-22-2022 20:52-0400 Systolic blood pressure 134 mm[Hg] MD Nicky Knight [facility] 12-22-2022 18:00-0400 Body temperature 97.6 [degF] MD Nicky Knight [facility] 12-22-2022 16:23-0400 Body mass index (BMI) [Ratio] 36.8 kg/m2 MD Nicky Knight [facility] 12-22-2022 16:23-0400 Body weight 97.3 kg MD Nicky Knight [facility] 12-22-2022 14:24-0400 Body height 162.56 cm MD Nicky Knight [facility] 12-19-2022 22:00-0400 Diastolic blood pressure 89 mm[Hg] MD Nicky Knight [facility] 12-19-2022 22:00-0400 Heart rate 76 /min MD Nicky HODGE [facility] 12-19-2022 22:00-0400 Respiratory rate 18 /min MD Nicky HODGE [facility] 12-19-2022 22:00-0400 SaO2% (BldA) [Mass fraction] 98 % MD Nicky HODGE [facility] 12-19-2022 22:00-0400 Systolic blood pressure 148 mm[Hg] MD Nicky HODGE [facility] 12-19-2022 16:42-0400 Body mass index (BMI) [Ratio] 30.9 kg/m2 MD Nicky HODGE [facility] 12-19-2022 16:42-0400 Body temperature 98.2 [degF] MD Nicky HODGE [facility] 12-19-2022 16:42-0400 Body weight 81.64 kg MD Nicky HODGE [facility] 12-16-2022 13:51-0500 Diastolic blood pressure 86 mm[Hg] Gerald Gombash DO Work Phone: [facility] 12-16-2022 13:51-0500 Heart rate 70 /min Gerald Gombash DO Work Phone: [facility] 12-16-2022 13:51-0500 Respiratory rate 16 /min Gerald Gombash DO Work Phone: [facility] 12-16-2022 13:51-0500 SaO2% (BldA) [Mass fraction] 96 % Gerald Gombash DO Work Phone: [facility] 12-16-2022 13:51-0500 Systolic blood pressure 129 mm[Hg] Gerald Gombash DO Work Phone: [facility] [employer] 12-16-2022 08:54-0500 Body height 162.6 cm Gerald Gombash DO Work Phone: [facility] [employer] 12-16-2022 08:54-0500 Body mass index (BMI) [Ratio] 30.55 kg/m2 Gerald Gombash DO Work Phone: [facility] 12-16-2022 08:54-0500 Body temperature 98.8 [degF] Gerald Gombash DO Work Phone: [facility] 12-16-2022 08:54-0500 Body weight 80.74 kg Gerald Gombash DO Work Phone: [facility] 11-29-2022 12:26-0500 Body temperature 98.29 [degF] Perry Athy PA-C Work Phone: [facility] 11-29-2022 12:26-0500 Body weight 82.28 kg Perry Athy PA-C Work Phone: [facility] 11-29-2022 12:26-0500 Diastolic blood pressure 92 mm[Hg] Perry Athy PA-C Work Phone: [facility] 11-29-2022 12:26-0500 Heart rate 106 /min Perry Athy PA-C Work Phone: [facility] 11-29-2022 12:26-0500 Respiratory rate 18 /min Perry Athy PA-C Work Phone: [facility] 11-29-2022 12:26-0500 SaO2% (BldA) [Mass fraction] 98 % Perry Athy PA-C Work Phone: [facility] 11-29-2022 12:26-0500 Systolic blood pressure 128 mm[Hg] Perry Athy PA-C Work Phone: [facility] 10-06-2022 22:52-0500 Diastolic blood pressure 75 mm[Hg] [facility] 10-06-2022 22:52-0500 SaO2% (BldA) [Mass fraction] 95 % [facility] 10-06-2022 22:52-0500 Systolic blood pressure 119 mm[Hg] [facility] 10-06-2022 21:53-0500 Heart rate 82 /min [facility] 10-06-2022 21:53-0500 Inhaled oxygen flow rate 3 L/min [facility] 10-06-2022 21:53-0500 Respiratory rate 16 /min [facility] 10-06-2022 17:24-0500 Body height 162.56 cm [facility] Work Phone: 10-06-2022 17:24-0500 Body mass index (BMI) [Ratio] 30.5 kg/m2 [facility] 10-06-2022 17:24-0500 Body temperature 97.3 [degF] [facility] 10-06-2022 17:24-0500 Body weight 80.73 kg [facility] 10-06-2022 16:41-0500 Body temperature 97.9 [degF] Carole Older STENCIL PRINTER.CLAIMS SUPERVISOR Work Phone: [facility] 10-06-2022 16:41-0500 Body weight 80.74 kg Carole Older STENCIL PRINTER.CLAIMS SUPERVISOR Work Phone: [facility] 10-06-2022 16:41-0500 Diastolic blood pressure 88 mm[Hg] Carole Older STENCIL PRINTER.CLAIMS SUPERVISOR Work Phone: [facility] 10-06-2022 16:41-0500 Heart rate 94 /min Carole Older STENCIL PRINTER.CLAIMS SUPERVISOR Work Phone: [facility] 10-06-2022 16:41-0500 Respiratory rate 16 /min Carole Older STENCIL PRINTER.CLAIMS SUPERVISOR Work Phone: [facility] 10-06-2022 16:41-0500 SaO2% (BldA) [Mass fraction] 94 % Carole Older STENCIL PRINTER.CLAIMS SUPERVISOR Work Phone: [facility] 10-06-2022 16:41-0500 Systolic blood pressure 122 mm[Hg] Carole Older STENCIL PRINTER.CLAIMS SUPERVISOR Work Phone: [facility] 06-30-2022 17:15-0400 Body weight 84.37 kg Carole Older STENCIL PRINTER.CLAIMS SUPERVISOR Work Phone: [facility] 06-30-2022 17:15-0400 Diastolic blood pressure 92 mm[Hg] Carole Older STENCIL PRINTER.CLAIMS SUPERVISOR Work Phone: [facility] 06-30-2022 17:15-0400 Heart rate 80 /min Carole Older STENCIL PRINTER.CLAIMS SUPERVISOR Work Phone: [facility] 06-30-2022 17:15-0400 Respiratory rate 16 /min Carole Older STENCIL PRINTER.CLAIMS SUPERVISOR Work Phone: [facility] 06-30-2022 17:15-0400 Systolic blood pressure 132 mm[Hg] Carole Older STENCIL PRINTER.CLAIMS SUPERVISOR Work Phone: [facility] 04-08-2022 11:32-0400 Body temperature 98.71 [degF] Nicky Knight MD Work Phone: [facility] 04-08-2022 11:32-0400 Body weight 81.19 kg Nicky Knight MD Work Phone: [facility] 04-08-2022 11:32-0400 Diastolic blood pressure 90 mm[Hg] Nicky Knight MD Work Phone: [facility] 04-08-2022 11:32-0400 Heart rate 97 /min Nicky Knight MD Work Phone: [facility] 04-08-2022 11:32-0400 Respiratory rate 16 /min Nicky Knight MD Work Phone: [facility] 04-08-2022 11:32-0400 SaO2% (BldA) [Mass fraction] 98 % Nicky Knight MD Work Phone: [facility] 04-08-2022 11:32-0400 Systolic blood pressure 130 mm[Hg] Nicky Knight MD Work Phone: [facility] 03-27-2022 10:44-0400 Respiratory rate 18 /min Tyson Valdez MD Work Phone: [facility] 03-27-2022 09:34-0400 Body temperature 98.6 [degF] Tyson Valdez MD Work Phone: [facility] 03-27-2022 09:34-0400 Diastolic blood pressure 64 mm[Hg] Tyson Valdez MD Work Phone: [facility] 03-27-2022 09:34-0400 Heart rate 83 /min Tyson Valdez MD Work Phone: [facility] 03-27-2022 09:34-0400 SaO2% (BldA) [Mass fraction] 95 % Tyson Valdez MD Work Phone: [facility] 03-27-2022 09:34-0400 Systolic blood pressure 106 mm[Hg] Tyson Valdez MD Work Phone: [facility] 03-20-2022 08:48-0400 Body height 162.6 cm Tyson Valdez MD Work Phone: [facility] Comment on above: per chart review 03-17-2022 19:38-0400 Body mass index (BMI) [Ratio] 31.07 kg/m2 Tyson Valdez MD Work Phone: [facility] 03-17-2022 19:38-0400 Body weight 82.1 kg Tyson Valdez MD Work Phone: [facility] 03-15-2022 09:15-0400 Diastolic blood pressure 75 mm[Hg] Daniela Jimenes MD Work Phone: [facility] 03-15-2022 09:15-0400 Heart rate 80 /min Daniela Jimenes MD Work Phone: [facility] 03-15-2022 09:15-0400 Respiratory rate 16 /min Daniela Jimenes MD Work Phone: [facility] 03-15-2022 09:15-0400 SaO2% (BldA) [Mass fraction] 97 % Daniela Jimenes MD Work Phone: [facility] 03-15-2022 09:15-0400 Systolic blood pressure 120 mm[Hg] Daniela Jimenes MD Work Phone: [facility] 03-15-2022 09:00-0400 Body temperature 97.39 [degF] Daniela Jimenes MD Work Phone: [facility] 03-15-2022 08:09-0400 Body height 162.6 cm Daniela Jimenes MD Work Phone: [facility] 03-15-2022 08:09-0400 Body weight 82.56 kg Daniela Jimenes MD Work Phone: [facility] 01-12-2022 15:02-0400 Body height 164 cm Dayanara Reyes STENCIL PRINTER.CLAIMS SUPERVISOR Work Phone: [facility] 01-12-2022 15:02-0400 Body weight 87.09 kg Dayanara Reyes STENCIL PRINTER.CLAIMS SUPERVISOR Work Phone: [facility] 01-12-2022 15:02-0400 Diastolic blood pressure 82 mm[Hg] Dayanara Reyes STENCIL PRINTER.CLAIMS SUPERVISOR Work Phone: [facility] 01-12-2022 15:02-0400 Heart rate 96 /min Dayanara Reyes STENCIL PRINTER.CLAIMS SUPERVISOR Work Phone: [facility] 01-12-2022 15:02-0400 SaO2% (BldA) [Mass fraction] 98 % Dayanara Reyes STENCIL PRINTER.CLAIMS SUPERVISOR Work Phone: [facility] 01-12-2022 15:02-0400 Systolic blood pressure 126 mm[Hg] Dayanara Reyes STENCIL PRINTER.CLAIMS SUPERVISOR Work Phone: [facility] 06-23-2017 14:59-0400 BMI (Body Mass Index) 30.55 kg/m2 Rerejacob Rangelz [facility] Work Phone: 06-23-2017 14:59-0400 BP Diastolic 84 mm[Hg] Tiffany Purcell [facility] Work Phone: 06-23-2017 14:59-0400 BP Systolic 116 mm[Hg] Tiffany Purcell [facility] Work Phone: 06-23-2017 14:59-0400 Height 162.56 cm Tiffany [facility] Work Phone: 06-23-2017 14:59-0400 Pulse (Heart Rate) 96 /min Tiffany Purcell [facility] Work Phone: 06-23-2017 14:59-0400 Respiratory Rate 16 /min Tiffany Purcell [facility] Work Phone: 06-23-2017 14:59-0400 Weight 80.74 kg Tiffany Purcell [facility] Work Phone: 05-16-2017 14:03-0400 BMI (Body Mass Index) 30.89 kg/m2 [facility] Work Phone: 05-16-2017 14:03-0400 BP Diastolic 70 mm[Hg] [facility] Work Phone: 05-16-2017 14:03-0400 BP Systolic 120 mm[Hg] [facility] Work Phone: 05-16-2017 14:03-0400 Height 162.56 cm [facility] Work Phone: 05-16-2017 14:03-0400 Pulse (Heart Rate) 96 /min [facility] Work Phone: 05-16-2017 14:03-0400 Respiratory Rate 20 /min [facility] Work Phone: 05-16-2017 14:03-0400 Weight 81.65 kg [facility] Work Phone: Encounters Encounter Date Encounter Type Care Provider Facility Start: 04-10-2025 End: 04-10-2025 Telephone encounter Nicky Knight MD Work Phone: [facility] Comment on above: Insurance Authorizat ion Start: 04-09-2025 End: 04-10-2025 ambulatory Carole Moore APRN.CLAIMS SUPERVISOR Work Phone: [facility] Comment on above: Migraine med Start: 04-09-2025 Encounter for genera l adult medical examination without abnormal findings CAROLE MOORE [facility] Start: 04-05-2025 End: 04-05-[address] 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 AGENT-C -[facility] [place] Work Phone: Start: 04-05-2025 End: 04-05-2025 ambulatory [facility] Facility:[facility] Start: 04-03-2025 End: 04-03-2025 Periodic preventive med est patient 40-64yrs Carole Moore STENCIL PRINTER.CLAIMS SUPERVISOR Work Phone: [facility] Comment on above: Annual physical exam (Primary Dx); Migraine with aura and without status migrainosus, not intractable; PVC (premature ventricular contraction); Sweating abnormality; Hirsutism Start: 04-03-2025 End: 04-03-2025 ambulatory [facility] Facility:[facility] Start: 04-03-2025 End: 04-03-2025 Patient encounter procedure Carole Moore STENCIL PRINTER.CLAIMS SUPERVISOR Work Phone: [facility] Work Phone: Start: 03-19-2025 End: 03-22-2025 ambulatory Nicky Knight MD Work Phone: Internal Medicine [place] [phone] Start: 02-12-2025 End: 03-15-2025 ambulatory Nicky Knight MD Work Phone: Internal [facility] Start: 01-31-2025 End: 01-31-2025 [facility] Facility:[facility] Start: 01-08-2025 End: 01-08-2025 [facility] Facility:[facility] Start: 01-08-2025 End: 01-08-2025 Telemedicine consultation with patient Antonette Nieves STENCIL PRINTER.CLAIMS SUPERVISOR Work Phone: Telemedicine Comment on above: Viral gastroenteriti s (Primary Dx); Encounter to obtain excuse from work Start: 12-12-2024 End: 02-11-2025 Follow-up encounter Gil Barr MD Work Phone: [facility] Start: 12-11-2024 End: 12-11-2024 Patient encounter procedure Lindsay 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 Work Phone: [facility] Comment on above: URI, acute (Primary Dx); Exposure to influenza Start: 12-11-2024 End: 12-11-2024 [facility] Facility:[facility] Start: 11-28-2024 End: 11-28-2024 Emergency department patient visit [facility] Facility:[facility] Start: 10-31-2024 End: 10-31-2024 [facility] Facility:[facility] Start: 10-31-2024 End: 10-31-2024 Telemedicine consultation with patient Oumou Valentine APRN.CNP Work Phone: Telemedicine Comment on above: Acute cough (Primary Dx) Start: 10-12-2024 End: 10-12-2024 ambulatory Nicky Knight MD Work Phone: [facility] Comment on above: Work note Start: 09-25-2024 End: 09-25-2024 Subsequent hospital visit by physician [facility] Work Phone: Radiology Comment on above: Acute cough [R05.1] Start: 09-25-2024 End: 09-25-2024 [facility] Facility:[facility] Start: 09-25-2024 End: 09-25-2024 Patient encounter procedure Perry Ballard PA-C Work Phone: [facility] Comment on above: Bronchitis (Primary Dx) Start: 09-25-2024 End: 09-25-2024 [facility] Facility:[facility] Start: 09-25-2024 End: 09-25-2024 Telemedicine consultation with patient Chinmay Baxter PA-C Work Phone: Telemedicine Comment on above: Acute cough (Primary Dx) Start: 04-14-2024 End: 04-14-2024 Emergency department patient visit [facility] Facility:[facility] Start: 03-14-2024 ambulatory Nicky Alcaraz Work Phone: Internal Medicine [place] [phone] Start: 02-14-2024 Telephone encounter Amos May APRN.CLAIMS SUPERVISOR Work Phone: Neurology Comment on above: Insurance Authorizti on; [place] Start: 01-02-2024 End: 01-02-2024 Refill [facility] Provider Neurology Comment on above: Refill Request Microvascular angina (HCC) (Primary Dx); Nonsustained ventricular tachycardia (HCC); Primary hypertension; Tobacco abuse Start: 12-29-2023 Refill Bee Fairchild APRN.CLAIMS SUPERVISOR Work Phone: [facility] Comment on above: Refill Request Start: 04-25-2023 Telephone encounter Jose Hayes MD Work Phone: Cardiology Comment on above: Hurl Shaker - O ther Start: 04-25-2023 End: 04-25-2023 [facility] Start: 04-22-2023 Telephone encounter Bee schroeder APRN.CLAIMS SUPERVISOR Work Phone: [facility] Comment on above: Results Start: 04-18-2023 End: 04-18-2023 Office outpatient visit 25 minutes Bee Fairchild APRN.CLAIMS SUPERVISOR Work Phone: [facility] Comment on above: Postural dizziness ( Primary Dx); Pulsatile tinnitus; Diarrhea, unspecified type; Elevated liver enzymes; Abnormal RBC Start: 04-11-2023 End: 04-11-2023 Subsequent hospital visit by physician [facility] Work Phone: Radiology Comment on above: Injury of left knee, initial encounter [S89.92XA] Start: 04-11-2023 End: 04-11-2023 Patient encounter procedure Albina Padilla PA-C Work Phone: [facility] Comment on above: Injury of left knee, initial encounter (Primary Dx) Start: 04-05-2023 End: 04-05-2023 Subsequent hospital visit by physician [facility] Comment on above: No Show Start: 03-15-2023 Refill Amos crook APRN.CLAIMS SUPERVISOR Work Phone: Neurology Comment on above: Refill Request Start: 02-15-2023 Telephone encounter Nhung awan MD Work Phone: Mammography Comment on above: Mammogram Result Richard l Back Start: 02-13-2023 Refill Aide Haynes DO Work Phone: Neurology Comment on above: Refill Request Start: 02-11-2023 Documentation procedure Mammog tay Coordinator [facility] Start: 02-11-2023 Letter encounter Mammography Coordinator [facility] Department Start: 02-11-2023 Telephone encounter Leanna Parker junito [facility]NE Work Phone: [facility] Comment on above: Results Start: 02-10-2023 End: 02-10-2023 Subsequent hospital visit by physician [facility] Comment on above: Encounter for screen ing mammogram for malignant neoplasm of breast [Z12.31] Start: 02-04-2023 Orders Only Aide Haynes DO Work Phone: Neurology Comment on above: Intractable migraine with aura with status migrainosus (Primary Dx) Start: 02-03-2023 ambulatory Aide Haynes DO Work Phone: [facility] [place] [facility] Start: 02-03-2023 Follow-up encounter Aide vázquez DO Work Phone: Neurology Comment on above: Follow up after MRI Start: 01-28-2023 End: 01-28-2023 Subsequent hospital visit by physician Mri Lizzette (1.5t) Work Phone: Radiology Start: 01-21-2023 End: 01-21-2023 ambulatory Amos Smith APRN.CNP Work Phone: Neurology Comment on above: Thunderclap headache (Primary Dx); Stabbing headache Start: 01-21-2023 End: 01-21-2023 Telemedicine consultation with patient Amos Essie Smith APRN.CNP Work Phone: [facility] Start: 01-20-2023 Telephone encounter Aide vázquez DO Work Phone: Neurology Comment on above: Forms (Return to wor k) Start: 01-18-2023 ambulatory Aide Haynes DO Work Phone: Neurology Comment on above: FMLA Paperwork Start: 01-07-2023 End: 01-07-2023 Patient encounter procedure Amos Fountain Luis STENCIL PRINTER.CLAIMS SUPERVISOR Work Phone: Neurology Comment on above: Thunderclap headache (Primary Dx); Orthostatic headache; Intractable migraine with aura without status migrainosus Start: 01-06-2023 ambulatory Angelica FIELD-C Work Phone: Neurology Comment on above: Leave paperwork Start: 01-06-2023 Telephone encounter Yamileth werner STENCIL PRINTER.CLAIMS SUPERVISOR Work Phone: [facility] Comment on above: Patient Update Start: 01-05-2023 Telephone encounter Nicky cotton MD Work Phone: [facility] Comment on above: fmla forms Start: 2023 End: 2023 Emergency department patient visit MD Nicky Knight [facility] Start: 2023 End: 2023 Patient encounter procedure Angelica FIELD-C Work Phone: Neurology Comment on above: Positional headache (Primary Dx); Intractable headache, unspecified chronicity pattern, unspecified headache type Start: 2023 ambulatory Angelica FIELD-C Work Phone: Neurology Comment on above: Discharged from ER.. .no MRI Start: 12-30-2022 Telephone encounter Serg Alaniz RN NOC Comment on above: Follow Up Phone Call (RC follow up call first attempt ) Pain (Pain in vein a fter IV/) Start: 12-29-2022 Patient Outreach Philly nj RN Work Phone: [facility] Comment on above: Transition Of Care ( TCM Initial [facility] Discharge 12/28/22/) Start: 12-23-2022 Evaluation and management of inpatient REMUS A UNGUR Facility:[facility] Start: 12-22-2022 Non-patient / Non-visit MD Nicky holt [facility] Inpatient Physicians Start: 12-22-2022 End: 12-22-2022 Emergency department patient visit MD Nicky HODGE [facility] Start: 12-22-2022 ambulatory Nikcy Alcaraz Work Phone: [facility] Comment on above: Dizziness Start: 12-19-2022 End: 12-19-2022 Emergency department patient visit MD Nicky HODGE [facility] Start: 12-19-2022 ambulatory Gely Jones MD Work Phone: Virtual Medicine Comment on above: Virtualist Headache Start: 12-16-2022 End: 12-17-2022 Emergency department patient visit [facility] Start: 12-16-2022 End: 12-16-2022 Subsequent hospital visit by physician [facility] Exam Room [facility] Comment on above: Arrived Start: 12-16-2022 End: 12-16-2022 Emergency department patient visit Gerald Pham DO Work Phone: [facility] ED Comment on above: Migraine without sta tus migrainosus, not intractable, unspecified migraine type (Primary Dx) Start: 11-29-2022 End: 11-29-2022 Subsequent hospital visit by physician [facility] Work Phone: Radiology Comment on above: Finger pain, left [M 79.645] Start: 11-29-2022 End: 11-29-2022 Patient encounter procedure Perry Ballard PA-C Work Phone: [facility] Comment on above: Finger pain, left (P rimary Dx) Start: 11-25-2022 Refill Jose wilson MD Work Phone: Cardiology Comment on above: Refill Request Start: 10-25-2022 End: 10-25-2022 Patient encounter procedure Jose Hayes MD Work Phone: Cardiology Comment on above: Microvascular angina (HCC) (Primary Dx); Nonsustained ventricular tachycardia; Primary hypertension Start: 10-07-2022 ambulatory Carole Moore APRN, .CNP Work Phone: [facility] Start: 10-07-2022 Follow-up encounter Carole Older STENCIL PRINTER.CLAIMS SUPERVISOR Work Phone: [facility] Comment on above: Follow up from ER vi sit Start: 10-06-2022 End: 10-06-2022 Emergency department patient visit [facility] Start: 10-06-2022 End: 10-06-2022 Patient encounter procedure Carole Moore STENCIL PRINTER.CLAIMS SUPERVISOR Work Phone: [facility] Comment on above: RUQ pain (Primary Dx ); Right flank pain; Diarrhea, unspecified type; Nausea; Chills Start: 08-11-2022 End: 08-11-2022 ambulatory Nicky Knight MD Work Phone: [facility] Comment on above: COVID-19 virus infec tion (Primary Dx) Start: 08-11-2022 End: 08-11-2022 Telemedicine consultation with patient Nicky Knight MD Work Phone: [facility] Start: 07-05-2022 ambulatory CAROLE MOORE Facility:[facility] Start: 06-30-2022 End: 06-30-2022 Patient encounter procedure Carole Moore STENCIL PRINTER.CLAIMS SUPERVISOR Work Phone: [facility] Comment on above: Soft tissue mass (Pr imary Dx) Start: 06-29-2022 ambulatory Nicky Alcaraz Work Phone: [facility] Comment on above: Lump below breast, a luis miguel rib cage Start: 05-10-2022 Refill Lindsay dowling STENCIL PRINTER.CLAIMS SUPERVISOR Work Phone: Cardiology Comment on above: Refill Request Start: 05-10-2022 Telephone encounter Nicky cotton MD Work Phone: [facility] Comment on above: fax request Start: 04-26-2022 Refill Jose wilson MD Work Phone: Cardiology Comment on above: Refill Request Start: 04-26-2022 Telephone encounter Jose Hayes MD Work Phone: [facility] Cardiology Comment on above: Appointment patient information Start: 04-23-2022 Refill Nicky Alcaraz Work Phone: [facility] Comment on above: Refill Request Start: 04-08-2022 End: 04-08-2022 Patient encounter procedure Nicky Knight MD Work Phone: [facility] Comment on above: Hospital discharge f ollow-up (Primary Dx); Vitamin D deficiency; Diarrhea, unspecified type; Vitamin B12 deficiency; Brain fog Start: 03-23-2022 Telephone encounter Dayanara Reyes APRN.CLAIMS SUPERVISOR Work Phone: Gastroenterology Comment on above: Results; Medication Problem Start: 03-17-2022 End: 03-27-2022 Evaluation and management of inpatient Tyson [facility] MD Work Phone: [facility] MED SURG Comment on above: Abdominal pain, righ t upper quadrant (Primary Dx); Liver mass; Nausea and vomiting, intractability of vomiting not specified, unspecified vomiting type; Abdominal pain, epigastric; Hx of gastroesophageal reflux (GERD) Start: 03-17-2022 ambulatory Nicky Alcaraz Work Phone: [facility] Comment on above: abdomen pain Start: 03-15-2022 End: 03-15-2022 Refill Carole Moore APRN.LEATHA Work Phone: [facility] Comment on above: Refill Request Diarrhea, unspecifie d type [R19.7] Start: 03-11-2022 Refill Carole Moore APRN, .CNP Work Phone: [facility] Comment on above: Refill Request Start: 02-08-2022 Telephone encounter Dayanara Reyes APRN.CNP Work Phone: Gastroenterology Comment on above: Refill Request Start: 02-03-2022 Documentation procedure Mammog tay Coordinator [facility] Start: 02-03-2022 Letter encounter Mammography Coordinator [facility] Department Start: 02-02-2022 End: 02-02-2022 Subsequent hospital visit by physician [facility] Comment on above: Encounter for screen ing mammogram for breast cancer [Z12.31] Start: 01-18-2022 Telephone encounter Dayanara Reyes TK.CLAIMS SUPERVISOR Work Phone: Gastroenterology Comment on above: Patient Update Start: 01-12-2022 End: 01-12-2022 Patient encounter procedure Dayanara Reyes TK.CLAIMS SUPERVISOR Work Phone: Gastroenterology Comment on above: 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 (Primary Dx); Gastroesophageal reflux disease, unspecified whether esophagitis present; Diarrhea, unspecified type; Blood in stool; Bloating Start: 12-26-2021 Refill Carole Moore APRN .CLAIMS SUPERVISOR Work Phone: [facility] Comment on above: Refill Request Start: 12-10-2021 Telephone encounter Nicky cotton MD Work Phone: Family [facility] Comment on above: Appointment Start: 08-12-2021 End: 08-12-2021 Subsequent hospital visit by physician [facility] Work Phone: Radiology Comment on above: Muscle weakness [M62 .81] Start: 02-07-2019 End: 02-08-2019 Patient encounter procedure [facility] Procedures Date Procedure Procedure Detail Performing Clinician Start: 09-25-2024 Radiologic exam chest 2 views Perry Seble dowling PA-C Work Phone: Start: 04-25-2023 Plain chest X-ray Start: 04-18-2023 Ecg routine ecg w/least 12 lds i&r only [facility] Provider Start: 04-11-2023 Radiologic exam knee complete 4/more views Albina BROWNC Work Phone: Start: 04-05-2023 Digital breast tomosynthesis unilateral Leanna Patel STENCIL PRINTER.CLAIMS SUPERVISOR Work Phone: Start: 02-10-2023 End: 02-10-2023 Mammography Yamileth Tafoya STENCIL PRINTER.CLAIMS SUPERVISOR Work Phone: Start: 01-28-2023 End: 01-28-2023 Mri brain brain stem w/o w/contrast material Angelica BROWNC Work Phone: Start: 12-22-2022 CT of head without contrast MD Nicky HODGE Start: 12-16-2022 Cell count miscellaneous body fluids Gerald Elizabeth Gombash DO Work Phone: Start: 12-16-2022 CSF CELL COUNT WITH DIFFERENTIAL Gerald Elizabeth Gombash DO Work Phone: Start: 12-16-2022 Cul bact xcpt urine blood/stool aerobic isol Gerald A Gombash DO Work Phone: Start: 12-16-2022 Glucose body fluid other than blood Tyle r Elizabeth Gombash DO Work Phone: Start: 12-16-2022 Ct head/brain w/o contrast material Tyle r A Gombash DO Work Phone: Start: 12-16-2022 Basic metabolic panel calcium total Tyle r A Gombash DO Work Phone: Start: 12-16-2022 Urinalysis complete panel - Urine Geraldmeghan Chackoash DO Work Phone: Start: 12-16-2022 Urnls dip stick/tablet rgnt auto w/o microscopy Gerald Chackoash DO Work Phone: Start: 12-16-2022 Diagnostic lumbar spinal puncture Gerald Elizabeth Chackoash DO Work Phone: Start: 11-29-2022 Radex fingr minimum 2 views Perry Ballard PA-C Work Phone: Start: 10-06-2022 Computed tomography of abdomen and pelvis with intravenous contrast Start: 10-06-2022 Urnls dip stick/tablet rgnt auto w/o microscopy Carole Moore APRN.CLAIMS SUPERVISOR Work Phone: Start: 03-27-2022 Blood count complete auto&auto difrntl wbc Bairon Durán MD Work Phone: Start: 03-26-2022 Radiologic exam chest single view Bairon Durán MD Work Phone: Start: 03-26-2022 Blood count complete auto&auto difrntl wbc Bairon Durán MD Work Phone: Start: 03-25-2022 Comprehensive metabolic panel Bairon Alvarez MD Work Phone: Start: 03-23-2022 Biopsy liver needle percutaneous Consuelo Walker STENCIL PRINTER - [facility] Work Phone: Start: 03-22-2022 Prothrombin time Xochitl Walker STENCIL PRINTER - CLAIMS SUPERVISOR Work Phone: Start: 03-20-2022 Mri abdomen w/o & w/contrast material Saige Hinkle PA-C Work Phone: Start: 03-19-2022 Blood [...] Start: 03-15-2022 Esophagogastroduodenoscopy transoral diagnostic Dayanara Reyes APRN.CLAIMS SUPERVISOR Work Phone: Start: 03-15-2022 Colonoscopy flx dx w/collj spec when pfrmd Dayanara Reyes STENCIL PRINTER.CLAIMS SUPERVISOR Work Phone: Start: 03-15-2022 Colonoscopy Nicky Knight MD Work Phone: Start: 02-02-2022 End: 02-02-2022 Screening mammography bi 2-view breast inc cad Bulk Order Provider Start: 01-24-2022 Adult depression screening assessment Screen [facility] Start: 01-13-2022 Blood occult fecal hgb deter ia qual feces 1-3 Dayanara Reyes STENCIL PRINTER.CLAIMS SUPERVISOR Work Phone: Start: 01-13-2022 Iaad ia giravindra Reyes STENCIL PRINTER.CLAIMS SUPERVISOR Work Phone: Start: 12-07-2021 Adult depression screening assessment Carole Teresa STENCIL PRINTER.[facility] Work Phone: Start: 08-12-2021 Radex spine [...] Activity Detail Author Start: 03-15-2032 Colonoscopy COLONOSCOPY [facility] Start: 03-15-2032 COLORECTAL CANCER SCREENING COLORECTAL CANCER SCREENING [facility] Start: 03-15-2032 Screening for malign ant neoplasm of colon [facility] Start: 09-11-2031 DTaP/Tdap/Td vaccine (3 - Td or Tdap) DTaP/Tdap/Td vaccine (3 - Td or Tdap) [facility] Start: 09-11-2031 DTaP/Tdap/Td Vaccine s (3 - Td or Tdap) DTaP/Tdap/Td Vaccines (3 - Td or Tdap) [facility] Start: 09-11-2031 Urine microalbumin profile [facility] Start: 2031 Zoster Vaccines (1 o f 2) Zoster Vaccines (1 of 2) [facility] Start: 04-03-2026 Annual PCP Team Foot Press Operator claudine Disease Visit Annual PCP Team Chronic Disease Visit [facility] Start: 2026 FECAL OCCULT BLOOD FECAL OCCULT BLOO D [facility] Start: 2026 Screening for malign ant neoplasm of colon Fecal Occult Blood [facility] Start: 09-25-2025 BP Controlled (<130/80) BP Controlle d (<130/80) [facility] Start: 06-10-2025 Influenza vaccination C [facility] Start: 04-03-2025 End: 04-03-2025 Patient encounter procedure 04/03/2025 4:40 PM EDT Office Visit [facility] [address] [place] [address] Carole Moore APRN.CLAIMS SUPERVISOR [address] [place], [place] [id number] Annual exam and migraines [facility] Comment on above: Annual exam and migr aines Start: 04-03-2025 End: 07-03-2025 CBC W Auto Differential panel - Blood COMPLETE BLOOD COUNT AND DIFFERENTIAL Lab Routine Annual physical exam Migraine with aura and without status migrainosus, not intractable Expected: 04/03/2025, Expires: 07/03/2025 [facility] Comment on above: Expected: 04/03/2025 , Expires: 07/03/2025 Start: 04-03-2025 End: 07-03-2025 Comprehensive metabolic 2000 panel - Serum or Plasma COMPREHENSIVE METABOLIC PANEL Lab Routine Annual physical exam Migraine with aura and without status migrainosus, not intractable Expected: 04/03/2025, Expires: 07/03/2025 [facility] Work Phone: Comment on above: Expected: 04/03/2025 , Expires: 07/03/2025 Start: 04-03-2025 End: 07-03-2025 Lipid 1996 panel - Serum or Plasma LIPID PANEL, FASTING Lab Routine Annual physical exam Expected: 04/03/2025, Expires: 07/03/2025 [facility] Comment on above: Expected: 04/03/2025 , Expires: 07/03/2025 Start: 04-03-2025 End: 07-03-2025 Thyrotropin [Units/volume] in Serum or Plasma THYROID STIMULATING HORMONE Lab Routine Migraine with aura and without status migrainosus, not intractable Expected: 04/03/2025, Expires: 07/03/2025 [facility] Comment on above: Expected: 04/03/2025 , Expires: 07/03/2025 Start: 03-19-2025 End: 06-18-2025 Basic metabolic 2000 panel - Serum or Plasma BASIC METABOLIC PANEL Lab Routine Hypertension Expected: 03/19/2025, Expires: 06/18/2025 [facility] Work Phone: Comment on above: Expected: 03/19/2025 , Expires: 06/18/2025 Start: 06-10-2024 Covid-19 Vaccine () Covid-19 Vaccine () [facility] Start: 06-10-2024 Covid-19 Vaccine () Covid-19 Vaccine () [facility] Start: 06-10-2024 Influenza vaccination C [facility] Start: 04-18-2024 ANNUAL PCP TEAM COSMETOLOGIST CLAUDINE DISEASE VISIT ANNUAL PCP TEAM CHRONIC DISEASE VISIT [facility] Start: 04-11-2024 ANNUAL PCP TEAM COSMETOLOGIST CLAUDINE DISEASE VISIT ANNUAL PCP TEAM CHRONIC DISEASE VISIT [facility] Start: 02-11-2024 Mammography [facility] Start: 02-11-2024 Screening for malign ant neoplasm of breast Mammogram Screening [facility] Start: 12-31-2023 ANNUAL PCP TEAM COSMETOLOGIST CLAUDINE DISEASE VISIT ANNUAL PCP TEAM CHRONIC DISEASE VISIT [facility] Start: 12-31-2023 BP CONTROLLED (<130/80) BP CONTROLLE D (<130/80) [facility] Start: 12-31-2023 COVID-19 VACCINE (3 - Booster for Moderna series) COVID-19 VACCINE (3 - Booster for Moderna series) [facility] Comment on above: Postponed from 04/23 (Declined at this time) Start: 12-31-2023 COVID-19 VACCINE (3 - Moderna series) COVID-19 VACCINE (3 - Moderna series) [facility] Comment on above: Postponed from 04/23 (Declined at this time) Start: 10-10-2023 Behavioral Health Screening Behavioral Health Screening [facility] Start: 10-10-2023 Depression Assessment Depression Ass essment [facility] Start: 10-06-2023 ANNUAL PCP TEAM COSMETOLOGIST CLAUDINE DISEASE VISIT ANNUAL PCP TEAM CHRONIC DISEASE VISIT [facility] [facility] Start: 08-11-2023 ANNUAL PCP TEAM COSMETOLOGIST CLAUDINE DISEASE VISIT ANNUAL PCP TEAM CHRONIC DISEASE VISIT [facility] Start: 06-30-2023 ANNUAL PCP TEAM COSMETOLOGIST CLAUDINE DISEASE VISIT ANNUAL PCP TEAM CHRONIC DISEASE VISIT [facility] Start: 06-10-2023 Covid-19 Vaccine ( season) Covid-19 Vaccine ( season) [facility] Start: 06-10-2023 Influenza vaccination C [facility] Start: 04-25-2023 Blood chemistry [facility] Start: 04-25-2023 End: 04-25-2023 [facility] Start: 04-22-2023 End: 06-22-2023 CBC W Auto Differential panel - Blood CBC + DIFF Lab Routine Leukocytosis, unspecified type Expected: 04/22/2023, Expires: 06/22/2023 [facility] Work Phone: Comment on above: Expected: 04/22/2023 , Expires: 06/22/2023 Start: 04-18-2023 End: 06-18-2023 Basic metabolic 2000 panel - Serum or Plasma [facility] Work Phone: Comment on above: Expected: 04/18/2023 , Expires: 06/18/2023 Start: 04-18-2023 End: 06-18-2023 Ferritin [Mass/volume] in Serum or Plasma [facility] Work Phone: Comment on above: Expected: 04/18/2023 , Expires: 06/18/2023 Start: 04-18-2023 End: 06-18-2023 Folate [Mass/volume] in Serum or Plasma [facility] Work Phone: Comment on above: Expected: 04/18/2023 , Expires: 06/18/2023 Start: 04-18-2023 End: 06-18-2023 Hepatic function 2000 panel - Serum or Plasma [facility] Work Phone: Comment on above: Expected: 04/18/2023 , Expires: 06/18/2023 Start: 04-18-2023 End: 06-18-2023 Iron and Iron binding capacity panel - Serum or Plasma [facility] Work Phone: Comment on above: Expected: 04/18/2023 , Expires: 06/18/2023 Start: 04-18-2023 End: 06-18-2023 Magnesium [Mass/volume] in Serum or Plasma [facility] Work Phone: Comment on above: Expected: 04/18/2023 , Expires: 06/18/2023 Start: 04-18-2023 End: 06-18-2023 Thyrotropin [Units/volume] in Serum or Plasma [facility] Work Phone: Comment on above: Expected: 04/18/2023 , Expires: 06/18/2023 Start: 04-18-2023 End: 06-18-2023 Thyroxine (T4) free [Mass/volume] in Serum or Plasma [facility] Work Phone: Comment on above: Expected: 04/18/2023 , Expires: 06/18/2023 Start: 04-08-2023 ANNUAL PCP TEAM COSMETOLOGIST CLAUDINE DISEASE VISIT ANNUAL PCP TEAM CHRONIC DISEASE VISIT [facility] Start: 04-08-2023 Influenza vaccination INFLUENZA (#1) [facility] Comment on above: Postponed from 06/10 (Declined at this time) Start: 02-02-2023 Mammography MAMMOGRAM [facility] Start: 01-25-2023 ANNUAL PCP TEAM COSMETOLOGIST CLAUDINE DISEASE VISIT ANNUAL PCP TEAM CHRONIC DISEASE VISIT [facility] Start: 01-24-2023 Adult depression screening assessment DEPRESSION SCREENING [facility] Start: 12-07-2022 Adult depression screening assessment DEPRESSION SCREENING [facility] Start: 12-07-2022 ANNUAL PCP TEAM COSMETOLOGIST CLAUDINE DISEASE VISIT ANNUAL PCP TEAM CHRONIC DISEASE VISIT [facility] Start: 10-10-2022 DEPRESSION ASSESSMENT DEPRESSION ASS ESSMENT [facility] Start: 09-11-2022 BP CONTROLLED (<130/80) BP CONTROLLE D (<130/80) [facility] Start: 06-10-2022 Influenza vaccination C [facility] Start: 04-08-2022 End: 06-08-2022 Cobalamin (Vitamin B12) [Mass/volume] in Serum or Plasma VITAMIN B12 BLOOD Lab Routine Vitamin B12 deficiency Expected: 04/08/2022, Expires: 06/08/2022 [facility] Work Phone: Comment on above: Expected: 04/08/2022 , Expires: 06/08/2022 Start: 04-08-2022 End: 06-08-2022 Thyrotropin [Units/volume] in Serum or Plasma TSH BLD Lab Routine Brain fog Expected: 04/08/2022, Expires: 06/08/2022 [facility] Work Phone: Comment on above: Expected: 04/08/2022 , Expires: 06/08/2022 Start: 10-10-2021 DEPRESSION ASSESSMENT DEPRESSION ASS ESSMENT [facility] Start: 07-29-2021 COVID-19 VACCINE (3 - Booster for Moderna series) COVID-19 VACCINE (3 - Booster for Moderna series) [facility] Start: 06-10-2021 Influenza vaccination INFLUENZA (#1) [facility] Start: 04-23-2021 COVID-19 VACCINE (3 - Booster for Moderna series) COVID-19 VACCINE (3 - Booster for Moderna series) [facility] Start: 2021 Lipid panel Lipids [facility] Start: 2021 Mammography MAMMOGRAM [facility] Start: 2021 Screening for malign ant neoplasm of breast Mammogram [facility] Start: 06-23-2017 End: 06-23-2017 Appointment Appointment [facility] Work Phone: Start: 06-23-2017 End: 06-23-2017 Arterial exam Arterial exam [facility] Work Phone: Start: 06-23-2017 End: 06-23-2017 Follow Up Appt Other Follow Up Appt Other [facility] Work Phone: Start: 06-23-2017 End: 06-23-2017 PFM PFM [facility] Work Phone: Start: 06-23-2017 End: 06-23-2017 Arterial exam Arterial exam [facility] Work Phone: Start: 06-23-2017 End: 06-23-2017 Follow Up Appt Other Follow Up Appt Other [facility] Work Phone: Start: 06-23-2017 End: 06-23-2017 PFM PFM [facility] Work Phone: Start: 05-16-2017 End: 05-16-2017 Appointment Appointment [facility] Work Phone: Start: 05-16-2017 End: 05-16-2017 Arterial exam Arterial exam [facility] Work Phone: Start: 05-16-2017 End: 05-16-2017 Follow Up Appt 1 month Follow Up Appt 1 month [facility] Work Phone: Start: 05-16-2017 End: 05-20-2017 INR Coag RelTime (PPP) *PT/INR - Standing Order [facility] Work Phone: Start: 05-16-2017 End: 05-16-2017 PFM PFM [facility] Work Phone: Start: 05-16-2017 End: 05-16-2017 Arterial exam Arterial exam [facility] Work Phone: Start: 05-16-2017 End: 05-20-2017 Coagulation factor induced.INR assay in platelet poor plasma *PT/INR - Standing Order [facility] Work Phone: Start: 05-16-2017 End: 05-16-2017 Follow Up Appt 1 month Follow Up Appt 1 month [facility] Work Phone: Start: 05-16-2017 End: 05-16-2017 PFM PFM [facility] Work Phone: Start: 01-05-2016 Diabetes screen Diabetes screen [facility] Start: 05-30-2015 Pneumococcal vaccination Pneumococcal Vaccine (2 of 2 - PCV) [facility] Start: 01-05-2000 Hepatitis B Vaccine (1 of 3 - 19+ 3-dose series) Hepatitis B Vaccine (1 of 3 - 19+ 3-dose series) [facility] Start: 1999 Anxiety Screening Anxiety Screening [facility] Start: 1999 BP CONTROLLED (<130/80) BP CONTROLLE D (<130/80) [facility] Start: 1999 Depression Screening Depression Scre ening [facility] Start: 1999 Hepatitis C screening S [facility] Start: 01-05-1996 HIV screening [facility] screen [facility] Start: 1993 Depression Monitoring Depression [facility] Start: 1986 COVID-19 Vaccine (1) COVID-19 Vaccin e (1) [facility] Start: 1982 Hepatitis A Vaccines (1 of 2 - Risk 2-dose series) Hepatitis A Vaccines (1 of 2 - Risk 2-dose series) [facility] Start: 1982 MMR Vaccines (1 of 1 - Standard series) MMR Vaccines (1 of 1 - Standard series) [facility] Start: 1982 Varicella vaccination Varicell a Vaccines (1 of 2 - 2-dose childhood series) [facility] Start: 1982 Varicella vaccine (1 of 2 - 2-dose childhood series) Varicella vaccine (1 of 2 - 2-dose childhood series) [facility] Start: 1981 HEPATITIS B (1 of 3 - 3-dose series) HEPATITIS B (1 of 3 - 3-dose series) [facility] Start: 1981 Hepatitis B Vaccine (1 of 3 - 3-dose series) Hepatitis B Vaccine (1 of 3 - 3-dose series) [facility] Start: 1981 Hepatitis B Vaccines (1 of 3 - 3-dose series) Hepatitis B Vaccines (1 of 3 - 3-dose series) [facility] Start: 1981 HIV screening HIV Screening [facility] Start: 1981 Lipid panel Lipid Panel [facility] Bacteria identified in Unspecified specimen by Aerobe culture Culture, Aerobic Bacteria with Gram Stain Microbiology STAT 12/16/2022 10:30 AM EST [facility] End: 12-16-2022 Bacteria identified in Unspecified specimen by Anaerobe culture [facility] Work Phone: Comment on above: Once (Lab) for 1 Occ urrences starting 12/16/2022 until 12/16/2022 CBC W Auto Different ial panel - Blood CBC with Auto Differential Lab Routine Daily until discontinued starting 03/25/2022, 3 completed [facility] Work Phone: Comment on above: Daily until disconti nued starting 03/25/2022, 3 completed CBC W Auto Different ial panel - Blood CBC + DIFF Lab Routine Diarrhea, unspecified type 04/18/2023 4:40 PM EDT [facility] Work Phone: End: 01-12-2023 COLONOSCOPY DIAGNOSTIC COLONOSCOPY DIAGNOSTIC Endoscopy Routine Diarrhea, unspecified type Blood in stool 1 Occurrences starting 01/12/2022 until 01/12/2023 [facility] Work Phone: Comment on above: 1 Occurrences starti ng 01/12/2022 until 01/12/2023 COVID & INFLUENZA A/ B & RSV PCR, ROUTINE COVID & INFLUENZA A/B & RSV PCR, ROUTINE Microbiology Routine URI, acute Ordered: 12/11/2024 [facility] Work Phone: Comment on above: Ordered: 12/11/2024 End: 03-14-2026 DBT Breast - bilateral screening ALMA SCREENING W [facility] Radiology Routine Encounter for screening mammogram for breast cancer 1 Occurrences starting 02/12/2025 until 03/14/2026 [facility] Work Phone: Comment on above: 1 Occurrences starti ng 02/12/2025 until 03/14/2026 End: 10-15-2023 ECG COMPLETE ECG COMPLETE ECG Routine 1 Occurrences starting 10/15/2022 until 10/15/2023 [facility] Work Phone: Comment on above: 1 Occurrences starti ng 10/15/2022 until 10/15/2023 End: 04-18-2024 ECG COMPLETE ECG COMPLETE ECG Routine Pulsatile tinnitus 1 Occurrences starting 04/18/2023 until 04/18/2024 [facility] Work Phone: Comment on above: 1 Occurrences starti ng 04/18/2023 until 04/18/2024 ECG COMPLETE ECG COMPLETE ECG 04/18/2023 4:08 PM EDT [facility] End: 01-12-2023 EGD DIAGNOSTIC EGD DIAGNOSTIC Endoscopy Routine Gastroesophageal reflux disease, unspecified whether esophagitis present 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 1 Occurrences starting 01/12/2022 until 01/12/2023 [facility] Work Phone: Comment on above: 1 Occurrences starti ng 01/12/2022 until 01/12/2023 End: 03-12-2024 ALMA DIAGNOSTIC RIGHT ALMA DIAGNOSTIC RIGHT Radiology Routine Breast asymmetry 1 Occurrences starting 02/11/2023 until 03/12/2024 [facility] Work Phone: Comment on above: 1 Occurrences starti ng 02/11/2023 until 03/12/2024 End: 04-13-2025 MG Breast Screening ALMA SCREENING Radiology Routine Encounter for screening mammogram for breast cancer 1 Occurrences starting 03/14/2024 until 04/13/2025 [facility] Work Phone: Comment on above: 1 Occurrences starti ng 03/14/2024 until 04/13/2025 Oxygen therapy [[facility] Data Set] Initiate Oxygen Therapy Protocol Respiratory Care Routine As Needed until discontinued starting 03/18/2022 [facility] Work Phone: Comment on above: As Needed until disc ontinued starting 03/18/2022 Patient Education [facility] Work Phone: Patient referral [facility] [place] [place] Work Phone: Screening mammograph y bi 2-view breast inc cad ALMA SCREENING Radiology Routine Encounter for screening mammogram for breast cancer 02/02/2022 4:03 PM EDT [facility] Work Phone: Spirometry panel Incentive sonido metry RT Respiratory Care Routine Every 2hr while awake until discontinued starting 03/27/2022 [facility] Work Phone: Comment on above: Every 2hr while awak e until discontinued starting 03/27/2022 SURGICAL PATHOLOGY [facility] Work Phone: Comment on above: Release Upon Orderin g for 1 Occurrences starting 03/15/2022, 1 completed End: 03-23-2022 Surgical Pathology [facility] Work Phone: Comment on above: Once for 1 Occurrenc es starting 03/23/2022 until 03/23/2022 End: 03-12-2024 US BREAST LTD RIGHT US BREAST LTD RIGHT Radiology Routine Breast asymmetry 1 Occurrences starting 02/11/2023 until 03/12/2024 [facility] Work Phone: Comment on above: 1 Occurrences starti ng 02/11/2023 until 03/12/2024 End: 07-30-2023 Us chest real time w/image documentation US CHEST WALL/SOFT TISSUE Radiology Routine Soft tissue mass 1 Occurrences starting 06/30/2022 until 07/30/2023 [facility] Work Phone: Comment on above: 1 Occurrences starti ng 06/30/2022 until 07/30/2023 End: 07-30-2023 US SOFT TISSUE ABDOMEN US SOFT TISSUE ABDOMEN Radiology Routine Soft tissue mass 1 Occurrences starting 06/30/2022 until 07/30/2023 [facility] Work Phone: Comment on above: 1 Occurrences starti ng 06/30/2022 until 07/30/2023 [facility] c [facility] Immunizations Immunization Date Immunization Notes Care Provider Fa saad 09-11-2021 tetanus toxoid, redu laura diphtheria toxoid, and acellular pertussis vaccine, adsorbed Carole Older [employer] SUPERVISOR Work Phone: [facility] 10-31-2018 influenza, injectabl e, quadrivalent, preservative free Dr. Nicky Knight MD Work Phone: [facility] 10-31-2018 influenza, seasonal, injectable [facility] 10-31-2018 influenza virus vacc ine, unspecified formulation [facility] Work Phone: [facility] 07-22-2016 influenza, injectabl e, quadrivalent, contains preservative Carole Older [employer]ENCIL PR[employer] SUPERVISOR Work Phone: [facility] 06-30-2016 influenza, injectabl e, quadrivalent, preservative free Dr. Nicky Knight MD Work Phone: [facility] 06-30-2016 influenza, seasonal, injectable [facility] 05-30-2014 pneumococcal polysaccharide vaccine, 23 valent Carole Older [employer]ENC[employer] SUPERVISOR Work Phone: [facility] Work Phone: 05-30-2014 tetanus toxoid, redu laura diphtheria toxoid, and acellular pertussis vaccine, adsorbed Carole Older [employer]ENCIL PR[employer] SUPERVISOR Work Phone: [facility] Work Phone: 05-28-2014 pneumococcal vaccine , unspecified formulation [facility] Payers Date Payer Category Payer Private Health Insurance [id number] 2024 Unknown [id number] 2024 Self-pay [id number] 2023 Unknown [id number] 2021 Unknown SASHA JESUS PPO [id number] 2021-Present [phone] [address] [place] [address] PPO [id number] 2021 Unknown [id number] 2019 Unknown [id number] Unknown [id number] Unknown [id number] Unknown [id number] Social History Date Type Detail Facility Start: 08-11-2021 End: 11-29-2022 Tobacco smoking status NHIS Ex-smoker [facility] Work Phone: Start: 04-09-2007 History of tobacco use Cigarette Smo ker [facility] Work Phone: Start: 08-11-2021 End: 03-17-2023 Cigarettes smoked current (pack per day) - Reported 0.5 [facility] Start: 08-11-2021 End: 09-25-2024 Tobacco use and exposure Smokeless tobacco non-user [facility] Work Phone: Start: 09-11-2021 End: 04-03-2025 Alcohol intake Current drinker of alcohol (finding) [facility] Start: 12-07-2021 End: 12-30-2022 History SDOH Alcohol Frequency 3 [facility] Start: 12-07-2021 End: 12-30-2022 History SDOH Alcohol Std Drinks 1 [facility] Start: 12-07-2021 End: 12-30-2022 History SDOH Alcohol Binge 2 [facility] Start: 10-12-2018 History SDOH Alcohol Comment occ [facility] Start: 12-07-2021 End: 12-30-2022 History SDOH Social Connections Phone 4 [facility] Start: 12-07-2021 History SDOH Stress 5 [facility] Start: 09-09-2020 Education 21 [facility] Start: 08-11-2021 End: 11-29-2022 Tobacco Comment quit in Nov 2020 [facility] Start: 1980 Sex Assigned At Female C [facility] Start: 07-12-2021 End: 12-16-2022 Exposure to SARS-CoV-2 (event) Not sure [facility] Start: 1980 Sex Assigned At Not on file S [facility] Work Phone: Start: 04-09-2007 History of tobacco use Current smoke r [facility] Work Phone: Start: 10-06-2022 End: 04-25-2023 Tobacco smoking status NHIS Unknown if ever smoked [facility] Start: 03-31-2020 Occasional [facility] Start: 03-31-2020 None [facility] Start: 03-31-2020 Spouse/ Signif icant Other [facility] Start: 11-04-2020 Cigarettes [facility] Start: 12-30-2022 History SDOH Physica l Activity DPW 0 [facility] Start: 12-30-2022 End: 03-17-2023 Social connection and isolation panel [facility] Do you belong to any clubs or organizations such as zoroastrian groups, unions, fraternal or athletic groups, or school groups? Yes [facility] Are you now , , , , never or living with a partner? [facility] How often to you hav e a drink containing alcohol? 2-4 times a month [facility] How many standard drinks containing alcohol do you have on a typical day? 1 or 2 [facility] How often do you hav e 6 or more drinks on 1 occasion? Less than monthly [facility] How hard is it for y ou to pay for the very basics like food, housing, medical care, and heating Not very hard [facility] Adult Depression Screening Assessment 1 [facility] Do you feel stress - tense, restless, nervous, or anxious, or unable to sleep at night because your mind is troubled all the time - these days [OSQ] Only a little [facility] (I/We) worried piedad er (my/our) food would run out before (I/we) got money to buy more. Never true [facility] In the past 12 month s, was there a time when you were not able to pay the mortgage or rent on time? No [facility] Start: 03-26-2021 Gender identity Identifies as female gender (finding) [facility] Start: 03-26-2021 Sexual orientation Heterosexual (quincy jorge) [facility] Start: 01-02-2024 End: 09-25-2024 Tobacco smoking status NHIS Smokes tobacco daily [facility] Do you feel stress - tense, restless, nervous, or anxious, or unable to sleep at night because your mind is troubled all the time - these days [OSQ] Very much [facility] How many standard drinks containing alcohol do you have on a typical day? 3 or 4 [facility] NEGATED: Highlighted row [facility] Functional Status Date Assessment Result Facility 12-28-2022 Are you deaf, or do you have serious difficulty hearing No 12/28/2022 1:44 PM Sara Serra RN No [facility] 12-28-2022 Are you blind, or do you have serious difficulty seeing, even when wearing glasses No 12/28/2022 1:44 PM Sara Serra, KB No [facility] 12-28-2022 Do you have serious difficulty walking or climbing stairs No 12/28/2022 1:44 PM Sara Serra, KB No [facility] 12-28-2022 Do you have difficul ty dressing or bathing No 12/28/2022 1:44 PM Sara Serra, KB No [facility] 12-28-2022 Because of a physica l, mental, or emotional condition, do you have difficulty doing errands alone such as visiting a physician's office or shopping No 12/28/2022 1:44 PM EDT Sara Lubin RN No [facility] Mental Status Date Assessment Result Facility 04-25-2023 Cognitive function Level Of Cons ciousness Awake;Alert;Appropriate [facility] Work Phone: 2023 Cognitive function Level Of Cons ciousness Awake;Alert;Appropriate [facility] Work Phone: 12-28-2022 Because of a physica l, mental, or emotional condition, do you have serious difficulty concentrating, remembering, or making decisions No 12/28/2022 1:44 PM EDSara Tanner RN No [facility] 12-22-2022 Cognitive function Level Of Cons ciousness Awake;Alert;Appropriate;Fol lows Commands [facility] Work Phone: 12-19-2022 Cognitive function Level Of Cons ciousness Awake;Alert;Appropriate;Fol lows Commands [facility] Work Phone: Clinical Notes 05-30-2014 to 04-10-2025 Telephone Encounter - Emerita Steele MA - 04/10/2025 5:00 PM EDTTelephone Encounter - Emerita Steele MA - 04/10/2025 5:00 PM EDTPatient InstructionsPatient Instructions Note Date & Type Note Facility 04-10-2025 Telephone encounter Note The following approved medication requests have been transmitted electronically. Requested Prescriptions Signed Prescriptions Disp Refills topiramate (TOPAMAX) 25 mg tablet 60 tablet 2 Sig: Start with one pill at night for seven days and then increase to one pill two times a day Emerita Steele MA [facility] 04-10-2025 Miscellaneous Notes The following approved medication requests have been transmitted electronically. Requested Prescriptions Signed Prescriptions Disp Refills topiramate (TOPAMAX) 25 mg tablet 60 tablet 2 Sig: Start with one pill at night for seven days and then increase to one pill two times a day Emerita Steele MA Sent medication as discussed Regards, Nicky Knight MD Provider is out of office but per note from 04/03 plan care advises: - Discussed prophylactic treatment options; initiated propranolol. - if not tolerated can consider topiramate or SNRI for migraines and possible menopausal symptoms. Marly Louis MA documented in this encounter [facility] 04-10-2025 Telephone encounter Note Images from the original note were not included. The office completed a prior auth of [email or web address]. This has been approved. Prior authorization approved Payer: [employer] [phone] Note from payer: The request has been approved. The authorization is effective from 04/10/2025 to 10/07/2025, as long as the member is enrolled in their current health plan. The request was approved as submitted. This request has been approved with quantity limit of 16 tablets per 30 days. A written notification letter will follow with additional details. Approval Details Authorized from April 10, 2025 to October 07, 2025 Electronic appeal: Not supported View History Notes Time User Attachment Attachment received from payer. 04/10/2025 4:16 PM [facility], Rx Priorauth In Document Pharmacy Benefits Open Encounter JOAN FOLEY FULLY INSURED ([employer]) Covered: Retail, Mail Order Unknown: Specialty, Long-Term Care BIN: [id number] : 1980 Group ID: [id number] PCN: [id number] Legal sex: F Group name: Address: [address] [place] [address] Medication Being Authorized ubrogepant (UBRELVY) 100 mg tablet Take 1 tablet by mouth as needed (severe headache.). Repeat in 2 hours if needed. Dispense: 16 tablet Refills: 4 Start: 04/03/2025 Class: Normal Diagnoses: Migraine with aura and without status migrainosus, not intractable This order has been released to its destination. To be filled at: [address] [address] [facility] [phone] [facility] Prior Authorization History for ubrogepant (UBRELVY) 100 mg tablet Pt notified via my chart. [facility] 04-10-2025 Miscellaneous Notes Images from the original note were not included. The office completed a prior auth of farzaneh. This has been approved. Prior authorization approved Payer: [employer] [phone] Note from payer: The request has been approved. The authorization is effective from 04/10/2025 to 10/07/2025, as long as the member is enrolled in their current health plan. The request was approved as submitted. This request has been approved with quantity limit of 16 tablets per 30 days. A written notification letter will follow with additional details. Approval Details Authorized from April 10, 2025 to October 07, 2025 Electronic appeal: Not supported View History Notes Time User Attachment Attachment received from payer. 04/10/2025 4:16 PM Cchs, Rx Priorauth In Document Pharmacy Benefits Open Encounter JAIDENBRADShanJOAN FULLY INSURED ([employer]) Covered: Retail, Mail Order Unknown: Specialty, Long-Term Care BIN: [id number] : 1980 Group ID: [id number] PCN: [id number] Legal sex: F Group name: Address: [address] [place] [id number] Medication Being Authorized ubrogepant (UBRELVY) 100 mg tablet Take 1 tablet by mouth as needed (severe headache.). Repeat in 2 hours if needed. Dispense: 16 tablet Refills: 4 Start: 04/03/2025 Class: Normal Diagnoses: Migraine with aura and without status migrainosus, not intractable This order has been released to its destination. To be filled at: [facility] [address] [place] [id number] [facility] [phone] Prior Authorization History for ubrogepant (UBRELVY) 100 mg tablet Pt notified via my chart. documented in this encounter [facility] 04-10-2025 Telephone encounter Note Sent medication as discussed Regards, Nicky Knight MD [facility] 04-09-2025 Telephone encounter Note Provider is out of office but per note from 04/03 plan care advises: - Discussed prophylactic treatment options; initiated propranolol. - if not tolerated can consider topiramate or SNRI for migraines and possible menopausal symptoms. Marly Louis MA [facility] 04-03-2025 Instructions Carole Moore APRN.LEATHA - 04/03/2025 [...] migraine treatment plan. documented in this encounter [facility] 04-03-2025 Note HNO ID: [id number] Author: CAROLE MOORE APRN.CLAIMS SUPERVISOR Service: ? Author Type: Nurse Practitioner Type: Progress Notes Filed: 04/03/2025 17:10 Note Text: CC: Patient presents with: Headache: Discuss migraines HPI Joan Foley is a 45 year old female who presents today for annual exam and to discuss migraines. Recording using frooly software for draft documentation of the visit was discussed with the patient/authorized field representatives director; all questions welcomed and answered. Patient/authorized field representatives director agreed to proceed Migraines: - Experiencing migraines [...] symmetric without palpable (more content not included)... [facility] 04-03-2025 History of Present illness Narrative CC: Patient presents with: Headache: Discuss migraines HPI Joan Foley is a 45 year old female who presents today for annual exam and to discuss migraines. Recording using frooly software for draft documentation of the visit was discussed with the patient/authorized field representatives director; all questions welcomed and answered. Patient/authorized field representatives director agreed to proceed Migraines: - Experiencing migraines [...] Screening due on 02/11/2024 Covid-19 Vaccine(3 - 2023- season) due on 06/10/2024 Influenza Vaccine(Season Ended) [...] Patient agreeable to treatment plan. Carole Moore APRN.LEATHA documented in this encounter [facility] 03-19-2025 Note Patient Outreach (IN TMMN) JOAN FOLEY ([id number]) 1980 F Date Time Provider Department 03/19/25 [...] [I10] Order(s):BASIC METABOLIC PANEL [SQBMP] Order #: [id number] FUTURE Prescriptions as of 03/22/2025 - spironolactone [...] aura with status migr*02/04/2023 Encounter Status:Closed by [employer] FIGHTER InteractiveUSER on 03/22/25 [facility] 02-12-2025 Note Patient Outreach (IN TMWS) JOAN FOLEY ([id number]) 1980 F Date Time Provider Department 02/12/25 [...] for screening mammogram for breast cancer [Z12.31] Order(s):[facility] SCREENING W EVELIN [[id number]] Order #: [id number] FUTURE Prescriptions as of 03/15/2025 - spironolactone [...] Encounter Status:Closed by EPIC, PRODUSER on 03/15/25 [facility] 01-31-2025 Note HNO ID: [id number] Author: JAMAR VALENCIA APRN.CLAIMS SUPERVISOR Service: ? Author Type: Nurse Practitioner Type: Progress Notes Filed: 01/31/2025 12:44 Note Text: January 31, 2025 Joan Foley 1980 VIRTUAL VISIT PROGRESS NOTE This [...] visit. Either the patient or their legal field representatives director has been informed of the risks and benefits of -- and alternatives to -- treatment through a remote evaluation and consents to proceed with the evaluation remotely. Patient has agreed to the use of Evver software for the generation of this note. Platform patient seen on: [employer] Video Visit platform Location of patient: [place] Joan Foley is a 45 year old [...] and appears tired (more content not included)... [facility] 01-08-2025 Note HNO ID: [id number] Author: ANTONETTE NIEVES APRN.CLAIMS SUPERVISOR Service: ? Author Type: Nurse Practitioner Type: Progress Notes Filed: 01/08/2025 13:35 Note Text: Telemedicine Visit - Digital Health Virtual Visit Note Patient seen on [employer] Video Visit platform. Location of patient: [place] I have communicated my name and active licensure. The patient's identity and physical location were verified at the time of this visit. Either the patient or their legal field representatives director has been informed of the risks and [...] bxs LAPS SURG CHOLECYSTECTOMY W/CHOLANGIOGRAPHY 04/24/2014 Normal [facility] LIVER SURGERY HX 10/2018 ABLATION FOR MASS [...] W/WO RMVL TUBE OVARY 2003 Hysterectomy, AMANDA FAMILY HISTORY Adopted: Yes [...] Hydration: Appears Hydrate (more content not included)... [facility] 01-08-2025 History of Present illness Narrative Telemedicine Visit - Digital Health Virtual Visit Note Patient seen on [employer] Video Visit platform. Location of patient: [place] I have communicated my name and active licensure. The patient's identity and physical location were verified at the time of this visit. Either the patient or their legal field representatives director has been informed of the risks and [...] - All questions answered - Uploaded in Sage Nieves APRN.CLAIMS SUPERVISOR History and Record Review External record(s) reviewed: prior outpatient record and prior labs/imaging. Differential Diagnoses - Viral gastroenteritis is more likely for the following reason(s): suggested by H&P - Bacterial Gastroenteritis is less likely for the following reason(s): H&P not suggestive Disposition The patient was discharged. documented in this encounter [facility] 12-11-2024 Note SARS-COV-2 (AGENT OF COVID-19) RNA: Not detected INFLUENZA A RNA: Not detected INFLUENZA B RNA: Not detected RESPIRATORY SYNCYTIAL VIRUS (RSV) RNA: Not detected [facility] Comment on above: Performed By: #### 9 [id number] ####[facility] LABCLIA [id number] [address] OF [facility] 12-11-2024 Note HNO ID: [id number] Author: LINDSAY CROCKETT APRN.LEATHA Service: ? 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 No speech and language assistant was used. Flu Like Symptoms This is [...] bxs LAPS SURG CHOLECYSTECTOMY W/CHOLANGIOGRAPHY 04/24/2014 Normal [facility] LIVER SURGERY HX 10/2018 ABLATION FOR MASS [...] in acute distress. (more content not included)... [facility] 12-11-2024 History of Present illness Narrative This note was created using [employer]. Subjective Joan Foley is a 44 year old female. 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 No speech and language assistant was used. Flu Like Symptoms This is [...] window COVID/FLU obtained and pending Lindsay Crockett APRN.CNP documented in this encounter [facility] 10-31-2024 Note HNO ID: [id number] Author: OUMOU VALENTINE APRN.CNP Service: ? Author Type: Nurse Practitioner Type: Progress Notes Filed: 10/31/2024 13:35 Note Text: Telemedicine Visit - Distance Health Virtual Visit Note Patient seen on [employer] Video Visit platform. Location of patient: [place] I have communicated my name and active licensure. The patient's identity and physical location were verified at the time of this visit. Either the patient or their legal field representatives director has been informed of the risks and [...] bxs LAPS SURG CHOLECYSTECTOMY W/CHOLANGIOGRAPHY 04/24/2014 Normal [facility] LIVER SURGERY HX 10/2018 ABLATION FOR MASS [...] care: fluids, re (more content not included)... [facility] 10-31-2024 History of Present illness Narrative Telemedicine Visit - Distance Health Virtual Visit Note Patient seen on [employer] Video Visit platform. Location of patient: [place] I have communicated my name and active licensure. The patient's identity and physical location were verified at the time of this visit. Either the patient or their legal field representatives director has been informed of the risks and [...] bxs LAPS SURG CHOLECYSTECTOMY W/CHOLANGIOGRAPHY 04/24/2014 Normal [facility] LIVER SURGERY HX 10/2018 ABLATION FOR MASS [...] care - All questions answered Oumou Valentine APRN.LEATHA documented in this encounter [facility] 09-25-2024 Note HNO ID: [id number] Author: PERRY BALLARD PA-C Service: ? Author Type: Physician Switchboard Clerk Type: Progress Notes Filed: 09/25/2024 15:05 Note [...] bxs LAPS SURG CHOLECYSTECTOMY W/CHOLANGIOGRAPHY 04/24/2014 Normal [facility] LIVER SURGERY HX 10/2018 ABLATION FOR MASS [...] ASSESSMENT/PLAN: 1. Bronchitis (more content not included)... [facility] 09-25-2024 History of Present illness Narrative This note was created using Add[employer]. Subjective Joan Foley is a 44 year [...] Perry Ballard PA-C documented in this encounter [facility] 09-25-2024 History of Present illness Narrative [...] PATIENT PRESENTS WITH AN IMPLANTABLE OR ATTACHED PROJECT SURVEYOR: No RADIOLOGY DEPARTMENT: General X-ray: Exam(s) Completed: Chest X-Ray PERIPHERAL IV DATA: Not applicable SIGNED BY: RT Breonna([place]) September 25, 2024 1:55 PM documented in this encounter [facility] 09-25-2024 Note HNO ID: [id number] Author: MIRTA ENGLAND RT(R) Service: ? Author Type: Boat Garnisher Type: Progress Notes Filed: 09/25/2024 14:01 Note [...] PATIENT PRESENTS WITH AN IMPLANTABLE OR ATTACHED PROJECT SURVEYOR: No RADIOLOGY DEPARTMENT: General X-ray: Exam(s) Completed: Chest X-Ray PERIPHERAL IV DATA: Not applicable SIGNED BY: RT Breonna(R) September 25, 2024 1:55 PM [facility] 09-25-2024 Note HNO ID: [id number] Author: CHINMAY BAXTER PA-C Service: ? Author Type: Physician Switchboard Clerk Type: Progress Notes Filed: 09/25/2024 11:29 Note Text: Telemedicine Visit - Distance Health Virtual Visit Note Patient seen on [employer] Video Visit platform. Location of patient: [place] I have communicated my name and active licensure. The patient's identity and physical location were verified at the time of this visit. Either the patient or their legal field representatives director has been informed of the risks and [...] to be seen today in person at [facility]. Should consider CXR, viral panel testing, and needs auscultation of lungs. No charge Pt verbalized understanding and is agreeable to plan. Chinmay Baxter PA-C [facility] 09-25-2024 History of Present illness Narrative Telemedicine Visit - Distance Health Virtual Visit Note Patient seen on [employer] Video Visit platform. Location of patient: [place] I have communicated my name and active licensure. The patient's identity and physical location were verified at the time of this visit. Either the patient or their legal field representatives director has been informed of the risks and [...] to be seen today in person at [facility]. Should consider CXR, viral panel testing, and needs auscultation of lungs. No charge Pt verbalized understanding and is agreeable to plan. Chinmay Baxter PA-C documented in this encounter [facility] 02-14-2024 Telephone encounter Note Attempted to Initiate PA for Renewal of Ubrelvy. Patients last visit was 03/17/2023 with no renewal documentation. Patient needs a follow up visit for Renewal documentation before a PA can be initiated. Estee Barton MA [facility] 02-14-2024 Miscellaneous Notes Attempted to Initiate PA for Renewal of Ubrelvy. Patients last visit was 03/17/2023 with no renewal documentation. Patient needs a follow up visit for Renewal documentation before a PA can be initiated. Estee Barton MA documented in this encounter [facility] 01-02-2024 Instructions Jose Hayes MD - 01/02/2024 3:53 PM EDT We are trying you on Bystolic 2.5 mg once per day documented in this encounter [facility] 01-02-2024 History of Present illness Narrative Images from the original note were not included. [facility] SE[facility] REGIONAL CARDIOLOGY Cardiology ([facility]) [address] [facility] [id number] OUTPATIENT VISIT DATE 01/02/2024 PRIMARY CARE PHYSICIAN: Nicky Knight [address] [place] [address] HISTORY OF PRESENT ILLNESS: Ms. Foley is [...] bxs LAPS SURG CHOLECYSTECTOMY W/CHOLANGIOGRAPHY 04/24/2014 Normal [facility] LIVER SURGERY HX 10/2018 ABLATION FOR MASS [...] Jose Hayes MD documented in this encounter [facility] 01-02-2024 Miscellaneous Notes Physician: Luis Call [...] mg tablet [Aide Haynes DO] Preferred pharmacy: [id number] [place] [address] - [address] [place], [place] [id number] Delivery method: Pickup Medication renewals requ ested in this message routed separately: ondansetron orally disintegrating (ZOFRAN ODT) 4 mg disintegrating tablet [Amos Smith] folic acid 1 mg tablet [Bee Fairchild] documented in this encounter [facility] 01-02-2024 Miscellaneous Notes Physician: Luis Call from patient requesting refill. Please E-Scribe Last office visit 03/17/23 with Luis virtual Next office visit N/A Requested Prescriptions Pending Prescriptions Disp Refills ondansetron orally disintegrating (ZOFRAN ODT) 4 mg disintegrating tablet 30 tablet 3 Sig: Take 1 tab every 8 hours as needed for nausea Pharmacy Name: [facility] documented in this encounter [facility] 12-30-2023 Miscellaneous Notes Folic acid was renewed. Patient will need a follow-up appointment at least in April. Patient Dindonghart message requesting the following refill Refill(s) Requested: [...] off Morphine Hives, Itching Propoxyphene Intolerance (home) [phone] (cell) Last Office Visit Date: 04/18/2023 Last [facility] Health Visit: Visit date not found Future Appointment: Visit date not found The patients preferred pharmacy has been captured for this encounter? yes Request is for script(s) to be escript to pharmacy. Lindsey Lentz LPN documented in this encounter [facility] 04-25-2023 Miscellaneous Notes Noted. Will forward to Lindsya Dean as Dr. Hayes is out of office. Arleen Aguilar RN Patient called. Verified name and date [...] Madai Levy LPN documented in this encounter [facility] 04-23-2023 Miscellaneous Notes Phoned patient and left detailed message with results, notes from Bee Fairchild NP and rx sent to pharmacy. Can please [...] to the pharmacy. documented in this encounter [facility] 04-18-2023 History of Present illness Narrative [...] as needed for worsening/no improvement. Bee Fairchild APRN.CLAIMS SUPERVISOR documented in this encounter [facility] 04-11-2023 History of Present illness Narrative [...] 2023 12:06 PM documented in this encounter [facility] 04-11-2023 Instructions Albina Padilla PA-C - [...] before doing any physical activity. References [employer] [place] of Arthritis and Musculoskeletal and Skin Diseases. Questions and Answers about Sprains and Strains Accessed 02/12/2014. [employer]. Sprains and Strains: [...] when lying down. documented in this encounter [facility] 04-11-2023 History of Present illness Narrative [...] 3 - Low documented in this encounter [facility] 04-05-2023 History of Present illness Narrative [...] 2023 2:14 PM documented in this encounter [facility] 03-15-2023 Miscellaneous Notes Patient has been [...] Laurence Carri Reyes documented in this encounter [facility] 02-14-2023 Miscellaneous Notes The following approved medication requests have been transmitted electronically. Requested Prescriptions Signed Prescriptions Disp Refills OLANZapine (ZYPREXA) 10 mg tablet 5 tablet 0 Sig: take 1 tablet by mouth at bedtime for 5 days Authorizing Provider: DOBROWSKIAMOS APRN.CNP Physician: Luis Call from patient requesting refill. Please E-Scribe Last office visit 01/21/23 with Luis virtual Next office visit Not scheduled. Requested Prescriptions Pending Prescriptions Disp Refills OLANZapine (ZYPREXA) 10 mg tablet [Pharmacy Med Name: OLANZAPINE 10 MG TABLET] 5 tablet 0 Sig: take 1 tablet by mouth at bedtime for 5 days Pharmacy Name: [facility] documented in this encounter [facility] 02-11-2023 Miscellaneous Notes Patient notified and number given to schedule. Please let Joan that there is an asymmetry in her right breast and the radiologist would like to take a closer look at it. Please assist her to schedule. Leanna Patel APRN.LEATHA documented in this encounter [facility] 02-11-2023 Miscellaneous Notes February 11, 2023 PID: [id number] Joan Foley [address] [place] [address] Dear Ms. Foley, Your recent breast imaging exam on 02/10/2023 showed a possible finding that requires additional imaging studies for a complete evaluation. Most such findings are probably benign (not cancer). If you have a healthcare provider who ordered/prescribed your screening mammogram: Please call [phone] or [phone]: [phone] to schedule an appointment for your additional [...] and reports are kept on file at [facility] as part of your permanent medical record, and are available for your continuing care. Thank you for allowing us to help in meeting your health care needs. Sincerely, Dr. Merino Interpreting Radiologist [facility] (Additional imaging) documented in this encounter [facility] 02-10-2023 History of Present illness Narrative [...] DATA: Not applicable SIGNED BY: Woody Lindsey February 10, 2023 2:55 PM documented in this encounter [facility] 02-04-2023 Miscellaneous Notes We will get [...] seen on 01/21/23. documented in this encounter [facility] 01-28-2023 History of Present illness Narrative [...] Applicable RADIOLOGY DEPARTMENT: MR; Exam(s) Completed: Head: [place] MRA PERIPHERAL IV DATA: Not [...] Exam(s) Completed: Head: Routine Brain SIGNATURE: Sherly Hopkins Rt PATIENT NAME: Joan Foley DATE: January 28, 2023 TIME: 12:38 PM SIGNED BY: Sherly Raines January 28, 2023 12:37 PM documented in this encounter [facility] 01-21-2023 Instructions Amos Smith APRN.CNP - 01/21/2023 3:36 PM EDT Aide Haynes [...] Reyes routed this conversation to Aide Haynes Message Pool January 17, 2023 Carri Reyes DD 1:47 PM Note Received return to work medical evaluation form, from Shaun via Fax Sent form to provider via e-mail documented in this encounter [facility] 01-21-2023 History of Present illness Narrative Headache [facility] Virtual Visit Follow up During this COVID-19 pandemic, patient's headache clinic evaluation was scheduled as a virtual visit using the following platform This visit was conducted as a virtual visit, with patient's permission, via Zoom. It required patient-provider interaction for the medical decision making as documented below. Patient stated name and Patient location [place] I have communicated my name and active licensure. The patient's identity and physical location were verified at the time of this visit. Either the patient or their legal field representatives director has been informed of the risks and [...] woke to a sharp stabbing pain left roman catholic lasting 20 minutes. Happened again this morning [...] these with the patient: yes Amos Smith APRN.CLAIMS SUPERVISOR HEADACHE SCORES: Headache Questions 01/06/2023 01/21/2023 ID [...] and clear, coherent, and relevant. Short and fci memory, cognition and general fund of knowledge [...] week ago. She presents today with left roman catholic stabbing pain that woke her from sleep lasting 20 minutes. Occurred 2 other times day. Reports being dizzy all day. With the warm weather seasonal allergies have kicked in, she feels this may be contributing. Blood pressure this morning 140/90. PLAN: Medrol dose pack to undercoat sprayer her some relief - if it makes [...] Follow-up: Following tests . Level of service: [facility] level 4 (30-39 min). Time spent 30 min on the day of service, which included preparing to see the patient, [id number] patient care, completing clinical documentation, obtaining and/or reviewing separately obtained history, counseling and educating the patient/family/caregiver, and ordering medications, tests, or procedures. Amos Smith APRN-LEATHA Headache Section [facility] January 21, 2023 3:54 PM documented in this encounter [facility] 01-20-2023 Miscellaneous Notes Type of form: Return to work Form received via fax When form is completed, Fax form to number on form Form has been forwarded to Provider via [employer] Reyes documented in this encounter [facility] 01-19-2023 Miscellaneous Notes Further information regarding form in 01/12/23 Enc documented in this encounter [facility] 01-07-2023 History of Present illness Narrative [...] Patient tolerated the procedure well. Amos Smith APRN.CLAIMS SUPERVISOR VS: BP 145/95 Pulse 92 Resp 20 [...] these with the patient: yes Amos Smith APRN.CLAIMS SUPERVISOR HEADACHE SCORES: Headache Questions 01/06/2023 ID Migraine [...] nerve injectons Amos Smith APRN.CNP Headache Section [facility] January 07, 2023 9:59 AM documented in this encounter [facility] 01-06-2023 Miscellaneous Notes Pt informed and form faxed 01/06/2023 by JULIANE Boykin Filled out paperwork for those 2 weeks. Paperwork in outbox. If neurology extended this at all -- they need to fill out any additional paperwork. Thank you, Yamileth Tafoya APRN.LEATHA Patient calls and states that she needs to go back to work on Tuesday. Patient is needing paperwork to be able to return to work. Advised patient that she would have to get this paperwork through neurology since they were the ones who sent her to ER. Patient states that she will check with neurology for this. Nadine Cantu RN Please call patient and clarify what is needed on this [facility] paperwork. I discussed in appointment giving her admission dates through until 3-5 days post our office visit for mental rest. So it looks like 12/22-01/05 -- 2 weeks total. I see patient was seen by neurology and sent to ER again -- if they are recommending any further time off then this needs filled out by them. Thank you, Yamileth Tafoya APRN.CNP documented in this encounter [facility] 01-05-2023 Miscellaneous Notes Yamileth just saw her so was placed in Alysons box. Type of form: FMLA Form received via fax When form is completed, Fax form to [phone] Form has been forwarded to Physician Desk: Dr. Eugene Stephen LPN documented in this encounter [facility] 2023 Instructions Angeliac Aviles PA-C - 2023 3:30 PM EDT 1) Please go to ER. I will call [place] [facility] 2) Referral to headache sub specialist 3) Please message if you would like me to send in prednisone or Toradol depending on ER course 4) If for any reason, MRI of the brain with and without contrast is not performed, please le me know and I will order as outpatient documented in this encounter [facility] 2023 History of Present illness Narrative Images from the original note were not included. [facility] Name: Joan Foley Age: [...] the ER and plans to go to [facility]. She states that she is in so much pain that she had considered going to the ER prior to the appointment. MRI of the brain with and without contrast may be beneficial given the above times. [place] [facility] doctor called and notified. I also [...] more severe. She was then sent to [facility] and admitted. MRV and MRA of the [...] high Radiology: This note was dictated using Three Rings speech recognition software and may contain some [...] which included preparing to see the patient, aube-kr-nrce patient care, completing clinical documentation, obtaining and/or reviewing separately obtained history, performing a medically appropriate examination, counseling and educating the patient/family/caregiver and ordering medications, tests, or procedures. documented in this encounter [facility] 2023 Discharge summary Note Date/Time 2023 5:26pm [facility] Medical Records Department [address] [place] [address] Emergency Department Summary 01/04/23 MR#: [id number] Acct: [id number] Name: JOAN FOLEY Rep #:[id number] : [...] of blood patch. She was transferred to [facility]. She had extensive work-up which revealed air on MRI. This could have been because of the [address] prior to lumbar puncture on the revealed no pneumocephalus. Patient is on muscle relaxant, opiate analgesia with no improvement. Patient had follow-up by the neuro nurse practitioner at the [facility]. Because of hersymptoms she was sent to [...] #2 tabs 10/06/22 [Rx Last Taken Unknown] vcoqtdlsfs-adcnmgvxhirmc-oqyvqdmj 50 mg-300 mg-40 mg capsule (Fioricet) 1 [...] clonus. There is no Babinski sign noted. [place] Coma Scale: document GCS findings Spontaneous Obeys Commands Oriented 15 Sensorium / Orientation: awake and alert Speech: speech normal Motor Exam: strength 5/5 throughout Psych mental status grossly normal Skin General Skin Exam: elasticity normal and turgor normal; Negative for jaundice orpallor MDM MDM MDM Narrative Medical decision making narrative: ER records for visit on the , were reviewed. Records from [facility] reviewed which did reveal pneumocephalus on MRI. Suspect this is due tothe multiple blood patches and air was incidentally injected when checking for the subarachnoid space. Patient without fever, chills meningeal findings. Doubt infectious etiology. CT was reviewed from the performed that [facility] and there is evidence of chronic left [...] Q4H PRN (Reason: anaphylaxis) Qty: 2 0RF ucshizeeyp-dqmbjwzlujkdp-nxpm [Fioricet] 50-300-40 mg capsule 1 cap PO [...] your Primary Care Provider. Call [facility] ([phone]) or report to the closest Emergency Room. Call 911 if necessary. 01/04/231805 <Electronically signed by John Valdez MD> Cosigner Signature (if applicable): CC: Dr. Nicky Knight MD ~ Signed [facility] Work Phone: 1(853) 123-159603-23-2023 Miscellaneous Notes* Telephone Encounter - Alyce Montoya LPN - 12/30/2022 11:58 AM EDT Pt was in [facility] 12/22 - 12/28/22 for a spinal fluid leak from a lumbar puncture. Pt reports her IV was painful when she was in the hospital & now the area where the IV was is red, warm & the vein is hard. Pt does not have a fever. Appt scheduled with Huong olivas. Alyce Montoya LPN documented in this [facility]03-[facility]-2023 History of Present illness Narrative* Philly Mckeon RN - 12/30/2022 10:43 AM EDT TRANSITIONAL CARE MANAGEMENT (TCM) COMMUNITY MONITORING PROGRAM Provider Action/FYI: Outreach attempt #2 Unable to reach patient. Left message. SUMMARY: Pt discharged from [facility] on 12/28/22. Admitted for: Intractable headache Contact made with patient: No - 2nd unsuccessful attempt - end outreach and close encounter Outreach ended Philly Mckeon RN * Philly Mckeon RN - 12/29/2022 10:01 AM EDT TCM Home Visit Referral Source of Stratification: [facility] Admission Status: Discharged Readmission Risk Score: [...] try again later SUMMARY: Pt discharged from [facility] on 12/28/22. Admitted for: Intractable headache Contact made with patient: No - next outreach attempt will be on next business day Outreach ended Philly Mckeon RN documented in this encounterSouth[facility]03-23-2023 Miscellaneous Notes* Telephone Encounter - Serg Auguste RN - 12/30/2022 9:36 AM EDT RC RN Attempted to reach patient as a [...] dept. Serg Auguste RN documented in this encounterSouth[facility]03-16-2023 NoteHNO ID: [id number] Author: Carolyn Nash MD Service: Hospital Medicine Author Type: Physician Type: Progress Notes Filed: 12/23/2022 3:52 PM Note Text: DEPARTMENT OF HOSPITAL MEDICINE PROGRESS NOTE SERVICE DATE: 12/23/2022 SERVICE TIME: 3:48 PM Hospital Medicine/Primary Attending: Carolyn Clay MD NIGHT AND WEEKEND COVERAGE: After 7pm please page [phone] SUBJECTIVE: continue to have positional headache , [...] TIME: 3:48 PM PAGER/CONTACT #: [facility] 12-23-2022 NoteHNO ID: [id number] Author: Dee Currie RN Service: Care Management Author Type: Registered Nurse Type: Care Mgt Initial Assessment Filed: 12/23/2022 11:04 AM Note Text: CARE MANAGEMENT: ASSESSMENT AND DISCHARGE PLAN SERVICE DATE: December 23, 2022 SERVICE TIME: 11:02 AM PRIMARY CARE PHYSICIAN: Nicky Knight MD Primary Contact: Extended Emergency Contact Information Primary Emergency Contact: Chris Foley [facility] Mobile Relation: Spouse Secondary Emergency Contact: Aide Herrera Mobile Relation: Mother ADMISSION STATUS: Observation Insurance Provider: [place] PPO NEEDS PRIOR TO DISCHARGE Needs Prior to Discharge: To Be Determined, Discharge Prescriptions POTENTIAL TRANSITION PLANS No Services Indicated;To Be Determined Based on clinical judgement, Care Management will address the following needs: No transitional/discharge planning needs at this time Patient's perception of need for this admission: Headache ADVANCE DIRECTIVES Current Advance Directive: Health Care Power of Electromatic Typist In Chart: Yes Up To Date and [...] discharge within 30 days: No PATIENT SCREEN Patient/Ring Stamper Stated Goals: To have reduction in pain, [...] Mostly I feel financially burdened by my rpx-ir-nwnpjk expenses for my prescription medication:: 0 - [...] None Has the Patient Been in a Fci Facility in the Past 30 days?: No No medical discharge barriers identified at this time. No social discharge barriers identified at this time. No behavioral/cognitive discharge barriers identified at this time. No functional discharge barriers identified at this time. [facility] (more content not included)...[facility] 12-23-2022 NoteHNO ID: [id number] Author: Zoila Lopez RN Service: Nursing Author Type: Registered Nurse Type: Progress Notes Filed: 12/22/2022 11:56 PM Note Text: LP notified: RM. [id number] OG - PATIENT IS IN NEED OF PAIN MEDS PLEASE![facility]03-16-2023 NoteHNO ID: [id number] Author: Zoila Lopez RN Service: Nursing Author Type: Registered Nurse Type: Progress Notes Filed: 12/22/2022 10:52 PM Note Text: LP Notified: Rm. [id number]: Joan Foley has arrived from [facility] at this time. Just need orders please. TY.[facility]03-15-[address] Melchor [facility] December 22, 2022 7:10pm Note Date/Time December 22, 2022 7:0 4pm [facility] Medical Records Department [address] [place] [address] Progress Note - Hospitalist 12/22/221902 MR#: [id number] Acct: [id number] Name: JOAN FOLEY Rep #:[id number] : 1980 42 From: Rosemary Melchor MD PCP: Nicky Knight MD Status:REG ER Location: ED Hospitalist Note Received page for evaluation of Ms. Foley. She had headache 6 to 7 days ago and was evaluated at [place] and had LP and was given headache [...] Cosigner Signature (if applicable): CC: ~ Signed [facility] Work Phone: 1(389) 622-395203-15-2023 Miscellaneous Notes* Telephone Encounter - Gianna Trimble [...] reports two recent ER visits; one at [place] ER last due to migraine and states lumbar puncture was completed. Patient reports days later she developed a headache and [facility] and it was determined that [...] vomiting 11. :no Protocols used: Dizziness - Frfksectfhtmzcr-EWQWC-YF documented in this encounterSouthwest [facility]03-15-[address] Carcamo [facility] December 22, 2022 11:52pm Note Date/Time December 22, 2022 3:1 4pm [facility] Medical Records Department [address] [place] [address] Emergency Department Summary 12/22/22 MR#: [id number] Acct: [id number] Name: JOAN FOLYE Rep #:[id number] : 1980 42 From: Andria Carcamo DO PCP: Nicky Knight MD Status:REG ER Location: ED HPI History of Present Illness Chief Complaint: Headache Detail of Chief Complaint: Headache Informant: patient Narrative Narrative: Patient presents with a headache that started initially 7 days ago. 6 days ago she went to [facility] where she had a CT scan [...] #2 tabs 10/06/22 [Rx Last Taken Unknown] vyhibcrzfe-pxdlxyswsyahj-qwsdhvbo 50 mg-300 mg-40 mg capsule (Fioricet) 1 [...] evaluate patient. Patient wanted to go to [facility] however they did not have beds available. I discussed case with [facility] and patient was accepted to their facility [...] % (Auto) 63.5 Lymph % (Auto) 25.3 [place] % (Auto) 6.8 Eos % (Auto) 1.8 Baso % (Auto) 0.8 Absolute Neuts (auto) 6.9 Absolute Lymphs (auto) 2.74 Nucleated RBC % 0 Differential Comment SCANNED Radiography Diagnostic Testing: Clinical Impression(s) from Imaging Studies Brain CT 12/22/22 15:36 IMPRESSION: There are no acute intracranial findings. Electronically Signed: Russ Marquez MD at 16:19 EDT Reading Location ID and State: [facility] / [place] , Service support , Discharge Plan Triage [...] Q4H PRN (Reason: anaphylaxis) Qty: 2 0RF rycpjvaffh-qgnngpablgkdl-kesn [Fioricet] 50-300-40 mg capsule 1 cap PO [...] your Primary Care Provider. Call [facility] ([phone]) or report to the closest Emergency Room. Call 911 if necessary. 12/22/22 9612 <Electronically signed by Andria Carcamo DO> Cosigner Signature (if applicable): CC: Nicky Knight MD ~ Signed [facility] Work Phone: 1(153) 113-513603-12-2023 History of Present illness Narrative* Gely Jones MD - 12/19/2022 12:56 PM EDT Virtualist Progress Note Triage Call Triage source: Triage Call (Nurse Diabetes Nurse, [facility] Triage, [facility] Phone Triage) Was patient downgraded (i.e. disposition other than go to the ED was advised)? Yes Mode of contact (phone call, [place], Edictive, Express Care Online, Skype, other): PHONE History/Physical Exam: 42 yo F CC headache HPI headache started on Tuesday on seen in ED in [place] where they did a lumbar puncture, CT [...] Nurse Triage Disposition (If call is from Home Care, CC Home Care nurse triage, or an Express Care, the disposition is Go to ED Now): Go to ED Now (or PCP Triage) Virtualist Recommended Disposition: See Provider within 24 hours Signed in as Primary Virtualist, Secondary Virtualist, or [facility] Telehealth provider: Secondary SIGNATURE: Gely Jones MD PATIENT NAME: Joan Foley DATE: December 19, 2022 documented in this encounterSouthwest [facility] Center03-12-2023 Miscellaneous Notes* Telephone Encounter - Dee Hester APRN.CLAIMS SUPERVISOR - 12/19/2022 12:[address] Knight returned previous page to [facility]. Dr. Knight updated. Per Dr. Knight, if patient's symptoms worsen, she should return to the ER for evaluation. Otherwise, she should f/u with the office on Tuesday. Patient aware. Reason for call: patient calling in regarding symptoms of worsening headache, dizziness, nausea, ringing in ears, double vision. Had migraine headache that started approx 4 days ago. Went to [facility] on 12/16/2022. They did CT scan which [...] in ears. 10. : no Protocols used: Ucvioynr-OOOBS-KH documented in this encounterSouthwest [facility] Center03-09-2023 Emergency department Note * Jayashree Banerjee RN - 12/16/2022 11:34 AM EST Patient ambulated to the restroom without difficulty, she denies dizziness during ambulation. Warm blanket given for comfort. Will continue to monitor. Call light within reach. Jayashree Banerjee RN 12/16/22 1135 [id number] Emergency department Note* Jayashree Banerjee RN - 12/16/2022 11:34 AM EST Patient ambulated to the restroom without difficulty, she denies dizziness during ambulation. Warm blanket given for comfort. Will continue to monitor. Call light within reach. Jayashree Banerjee RN 12/16/22 1134 * Gerald Pham DO - 12/16/2022 8:36 [...] to the emergency department with a headache. shmarlo has a history of migraine headaches however [...] otherwise acutely negative except as in the [place]. PAST MEDICAL HISTORY Past Medical History: Diagnosis [...] Culture. Procedure Abnormality Status --------- ------ Complete Urinalysis[[id number]] Normal Final result Please view results for these tests on the individual orders. GLUCOSE, CSF GLUCOSE, CSF 51 APPEARANCE Clear and Colorless SUPERNATANT Clear and Colorless CSF CELL COUNT WITH DIFFERENTIAL Narrative: The following orders were created for panel order CSF cell count with differential. Procedure Abnormality Status --------- ------ CSF Cell Count[[id number]] Final result Please view results for these [...] Alternatives discussed: No treatment and alternative treatment Brookesmith protocol: Procedure explained and questions answered to [...] dc PATIENT REFERRED TO: Nicky Knight MD [address] [facility] [address] Schedule an appointment as soon as possible for a visit DISCHARGE MEDICATIONS: Discharge Medication List as of 12/16/2022 1:23 PM START taking these medications Details bdppcmnktz-cwfjjybfnirzo-xyrnkmwu 50-325-40 MG tablet Take 1-2 tablets by [...] call light within reach. documented in this [facility]03-09-2023 Emergency department Triage note* Joselin Jimenez RN - 12/16/2022 8:36 AM EST Patient to room 3 with c/o headache since yesterday. Patient reports nausea and dizziness. Patient took Maxalt last night at 2030 without relief. V/S obtained, call light within reach. [id number] Physician Emergency department Note* Gerald Pham DO [...] otherwise acutely negative except as in the [place]ASS. PAST MEDICAL HISTORY Past Medical History: Diagnosis [...] Culture. Procedure Abnormality Status --------- ------ Complete Urinalysis[[id number]] Normal Final result Please view results for these tests on the individual orders. GLUCOSE, CSF GLUCOSE, CSF 51 APPEARANCE Clear and Colorless SUPERNATANT Clear and Colorless CSF CELL COUNT WITH DIFFERENTIAL Narrative: The following orders were created for panel order CSF cell count with differential. Procedure Abnormality Status --------- ------ CSF Cell Count[[id number]] Final result Please view results for these [...] Alternatives discussed: No treatment and alternative treatment Brookesmith protocol: Procedure explained and questions answered to [...] dc PATIENT REFERRED TO: Nicky Knight MD [address] [facility] [id number] Schedule an appointment as soon as possible for a visit DISCHARGE MEDICATIONS: Discharge Medication List as of 12/16/2022 1:23 PM START taking these medications Details natovgayuu-hxtijwdqyegve-ymmkezkj 50-325-40 MG tablet Take 1-2 tablets by mouth every 6 hours as needed for headaches for up to 5 days., Starting Bernarda 12/16/2022, Until 12/21/2022 at 2359, Normal (Comment: Please note this [...] Medicine Provider Gerald Pham DO 12/16/22 1418 [facility] [id number] History of Present illness Narrative* Perry Ballard PA-C - 11/29/2022 12:50 PM EST This note was created using AddSearchriter. Subjective Joan Foley is a 42 year [...] bxs LAPS SURG CHOLECYSTECTOMY W/CHOLANGIOGRAPHY 04/24/2014 Normal [facility] LIVER SURGERY HX 10/2018 ABLATION FOR MASS [...] LEFT Perry Ballard PA-C documented in this encounterSouthwest [facility] Center02-20-2023 History of Present illness Narrative* Glenys Cortez [...] 29, 2022 12:36 PM documented in this encounterSouthwest General Health Center02-16-2023 Miscellaneous Notes* Telephone Encounter - Lindsay Reid LPN - 11/25/2022 10:24 AM EST Patient's request for medication is as follows: Requested Prescriptions Refused Prescriptions Disp Refills metoprolol tartrate, short acting, (LOPRESSOR) 25 mg tablet [Pharmacy Med Name: METOPROLOL UWNYUHPQ72 MG TAB] 30 tablet 11 Sig: TAKE 1 TABLET BY MOUTH ONCE DAILY DIRECTED Refused By: LINDSAY REID Reason for Refusal: Patient has requested refill too soon Refilled 10/25/2022 for 30 tabs and [address] Prescription(s) as above. Please process accordingly. Lindsay Reid LPN documented in this encounterSouthwest General Health Center01-16-2023 Instructions* Patient Instructions* Jose Hayes MD - 10/25/2022 4:01 PM EST We will try Metoprolol half a pill once per day for symptoms of chest pain documented in this encounterSouthwest General Health Center01-16-2023 History of Present illness Narrative* Jose Hayes MD - 10/25/2022 3:40 PM EST Images from the original note were not included. [facility] SECTION OF REGIONAL CARDIOLOGY Cardiology ([facility]) [address] [facility] [address] OUTPATIENT VISIT DATE 10/25/2022 PRIMARY CARE PHYSICIAN: [place] [address] HISTORY OF PRESENT ILLNESS: Ms. Foley is [...] management. Jose Hayes MD documented in this encounterSouthwest General Health Center12-28-2022 History of Present illness Narrative* Carole Moore, STENCIL PRINTER.CLAIMS SUPERVISOR - 10/06/2022 4:49 PM EST CC Patient [...] bxs LAPS SURG CHOLECYSTECTOMY W/CHOLANGIOGRAPHY 04/24/2014 Normal [facility] LIVER SURGERY HX 10/2018 ABLATION FOR MASS [...] plan. Carole Moore APRN.CNP documented in this encounterSouthwest General Health Center11-02-2022 History of Present illness Narrative* Nicky Knight MD - 08/11/2022 5:44 PM EDT [...] the free ones she could use at [facility]. She had been going through a lot [...] bxs LAPS SURG CHOLECYSTECTOMY W/CHOLANGIOGRAPHY 04/24/2014 Normal [facility] LIVER SURGERY HX 10/2018 ABLATION FOR MASS [...] infection - ICD9: 079.89, ICD10: U07.1 Called paxlovid to the patient Went over the side effect profile for the drug with the patient, mentioned every one of it , discussed appropriate concerns , alternatives and benefits of the drug, To ER for worsening symptoms, mental status changes, SOB, or side effects of meds that are severe especially allergic reactions causing air way compromise. Nicky Knight MD documented in this encounterSouthwest General Health Center09-21-2022 History of Present illness Narrative* Carole Moore, STENCIL PRINTER.CLAIMS SUPERVISOR - 06/30/2022 5:25 PM EDT CC: Patient [...] bxs LAPS SURG CHOLECYSTECTOMY W/CHOLANGIOGRAPHY 04/24/2014 Normal [facility] LIVER SURGERY HX 10/2018 ABLATION FOR MASS [...] Patient agreeable to treatment plan. Carole Moore APRN.CLAIMS SUPERVISOR documented in this encounterSouthwest General Health Center09-20-2022 Miscellaneous Notes* Telephone Encounter - Nadine [...] fever Protocols used: Skin Lump or Localized Mdjkglmv-EHMHM-GX documented in this encounterSouthwest General Health Center08-01-2022 Miscellaneous Notes* Telephone Encounter - Lindsay Reid LPN - 05/10/2022 1:51 PM EDT Patient's request for medication is as follows: Pending Prescriptions Disp Refills DILTIAZEM SR 120 MG 24 HR CAP 90 capsule 1 Sig: TAKE 1 CAPSULE BY MOUTH EVERY DAY CINDI: Yes Last seen 03/02/2021 in [place]. Follow up scheduled for 10/25/2022. Prescription(s) as above. Please process accordingly. Lindsay Reid LPN documented in this encounterSouthwest General Health Center08-01-2022 Miscellaneous Notes* Telephone Encounter - Anuja Daley RN - 05/10/2022 11:[address] Dobbs's office calling and received patient's referral but needs demographic page. Faxed as requested to [phone]. Anuja Daley RN documented in this encounterSouthwest General Health Center07-18-2022 Miscellaneous Notes* Telephone Encounter - Chetna Escamilla LPN - 04/26/2022 11:03 AM EDT Pt calls to request last OV note, lab results, procedure results and demo to be faxed to Dr. Dobbs's office. Faxed to [phone] as requested. Chetna Escamilla LPN documented in this encounterSouthwest General Health Center07-18-2022 Miscellaneous Notes* Telephone Encounter - Lindsay Reid LPN - 04/26/2022 10:07 AM EDT Last seen 03/02/2021 in [place]. Please call patient with over due appointment. Lindsay Reid LPN documented in this encounterSouthwest General Health Center07-18-2022 Miscellaneous Notes* Telephone Encounter - Lindsay Reid LPN - 04/26/2022 10:06 AM EDT Patient's request for medication is as follows: Pending Prescriptions Disp Refills DILTIAZEM SR 120 MG 24 HR CAP 30 capsule 1 Sig: TAKE 1 CAPSULE BY MOUTH EVERY DAY CINDI: Yes Last seen 03/02/2021 in [place]. Message sent to clerical requesting they call patient with over due appointment. Prescription(s) as above. Please process accordingly. Lindsay Reid LPN documented in this encounterSouthwest [facility] Center06-30-2022 History of Present illness Narrative* Nicky Knight MD - 04/08/2022 11:47 AM EDT Reason for Visit Patient presents with: Hospital Follow Up: [facility] March 17- March 27, wt loss, diarrhea, right upper quandrant pain Joan Foley is a 42 year old female who presents here today for Above Complaints.. Health Maintenance BP CONTROLLED (<130/80) COVID-19 VACCINE(3 - Booster for Moderna series) HPI On March 15, she had egd and colonoscopy done by [facility] for bloody diarrhea. On March 17, she started having severe RUQ pain, she was asked to go to the ER , went to [address] [facility] scan done showed there was a spot on the liver, she had an ablation, done in the past for that, seemed to be new, was sent to [facility], had MRI if the liver, and then [...] bxs LAPS SURG CHOLECYSTECTOMY W/CHOLANGIOGRAPHY 04/24/2014 Normal [facility] LIVER SURGERY HX 10/2018 ABLATION FOR MASS [...] and also elavil, to try GI [facility] for more answers - COLESTIPOL 5 GRAM ORAL PACKET - CONSULT TO GASTROENTEROLOGY Nicky Knight MD documented in this encounterSouthwest General Health Center06-18-2022 NoteHospitalist Discharge Summary Joan Foley : [...] hepatic adenoma s/p ablation. She presented to [facility] 03/18 for evaluation of R abdominal pain. [...] [place] for known hepatic adenoma starting in 2017. She is s/p laparoscopic ablation of a [...] known as: DESYREL vitamin D 1.25 MG (63172 UT) Caps capsule Commonly known as: ERGOCALCIFEROL [...] Mario Correia MD 03/27/2022, 11:09 [facility]06-17-2022 History of Present illness Narrative* Bairon Durán MD - 03/26/2022 2:48 PM EDT Images from the original note were not included. Hospitalist Progress Note 03/26/2022 2:48 PM [phone]: Please page me for patient care issues. [phone]: Please page [facility] night Hospitalist for any issues. Subjective: Admit Date: 03/17/2022 PCP: No primary care provider on file. Room#: 5132/[id number] Interval History: Still with pain and nausea [...] included. Hospitalist Progress Note 03/25/2022 12:37 PM [phone]: Please page me for patient care issues. [phone]: Please page [facility] night Hospitalist for any issues. Subjective: Admit Date: 03/17/2022 PCP: No primary care provider on file. Room#: 5132/[id number] Interval History: Still with pain and nausea [...] loss Fluid Accumulation: No significant fluid accumulation Campus Director Strength: Not Performed Nutrition Assessment: General Surgery [...] stool softener. RD of fered to resume [email or web address] ONS however patient disliked supplement but willing [...] 5' 4 (162.6 cm) (per chart review) [place] Body Weight (IBW): 120 lbs (55 kg) [...] On: Kcal/kg Weight Used for Energy Requirements: [place] Energy (kcal/day): 6580-0496 kcal/day (25-30 kcal/kg) Weight Used for Protein Requirements: [place] Protein (g/day): 55-65 gm protein/day (1.0-1.2 gm [...] Emerald Gandhi MS, RD, LD Contact: pager [phone] * Bairon Durán MD - 03/24/2022 1:29 PM EDT Images from the original note were not included. Hospitalist Progress Note 03/24/2022 1:29 PM [phone]: Please page me for patient care issues. [phone]: Please page [facility] night Hospitalist for any issues. Subjective: Admit Date: 03/17/2022 PCP: No primary care provider on file. Room#: 5132/[id number] Interval History: Still with pain and nausea [...] included. Hospitalist Progress Note 03/23/2022 1:33 PM [phone]: Please page me for patient care issues. [phone]: Please page [facility] night Hospitalist for any issues. Subjective: Admit Date: 03/17/2022 PCP: No primary care provider on file. Room#: [id number] Interval History: Still with pain and nausea [...] of Hospitalist Medicine Inpatient Medical Services * Saige GrimesRICHARD olea - 03/22/2022 9:47 AM EDT Department of [...] examined colon. Biopsied. EGD 03/15/[address] Jmienes for GERD: Impression: - Esophagogastric landmarks identified. [...] Patient will contact own GI physician or callour GI clinic at [phone] to make f/u appointment as soon as [...] included. Hospitalist Progress Note 03/21/2022 12:35 PM [phone]: Please page me for patient care issues. [phone]: Please page [facility] night Hospitalist for any issues. Subjective: Admit Date: 03/17/2022 PCP: No primary care provider on file. Room#: [id number] Interval History: Patient doing okay. Still with some ruq pain. At first complains of nausea, but then reports this is better ADULT DIET; Regular ADULT ORAL NUTRITION SUPPLEMENT; PM Snack; Other Oral Supplement; [email or web address] Standard 1.0 Patient Vitals for the past [...] IntraVENous Once LABS: CBC: Recent Labs 03/19/22 0151 WBC 8.6 RBC 3.72* HGB 12.4 HCT 36.3 MCV 97.5 RDW 12.7 PLT 194 BMP: Recent Labs 03/19/22 0151 NA 134* K 4.1 CL 104 CO2 25 BUN 15 CREATININE 0.88 GLUCOSE 96 CALCIUM 8.6 ANIONGAP 6 LIVER PROFILE: Recent Labs 03/19/22 0151 AST 41 ALT 51* BILITOT 0.3 ALKPHOS [...] of Hospitalist Medicine Inpatient Medical Services PAGER: [phone] * Glenn Buenrostro MD - 03/21/2022 11:47 [...] C/C/E. No muscle atrophy. CBC: Recent Labs 03/19/22 0151 WBC 8.6 HGB 12.4 HCT 36.3 PLT [...] Imaging ACCESSION EXAM DATE/TIME PROCEDURE ORDERING PROVIDER [id number] 03/20/2022 08:58 EDT MRI Abdomen w/ + w/o LEATHA HINKLE BROOKE Contrast CPT code 92530 Reason For Exam (MRI Abdomen w/ + [...] Tomography ACCESSION EXAM DATE/TIME PROCEDURE ORDERING PROVIDER [id number] 03/17/2022 16:[address] Abdomen/Pelvis (Vielka VALDEZ MD, SEGUN Calvo PO, No IV) CPT code 39757 Reason For Exam (CT Abdomen/Pelvis (No PO, [...] Ultrasound ACCESSION EXAM DATE/TIME PROCEDURE ORDERING PROVIDER [id number] 03/17/2022 16:50 EDT US Transvaginal MD VALDEZ DOUGALAS R. CPT code 70076 Reason For Exam (US Transvaginal) looking for [...] included. Hospitalist Progress Note 03/20/2022 5:32 PM [phone]: Please page me for patient care issues. [phone]: Please page [facility] night Hospitalist for any issues. Subjective: Admit Date: 03/17/2022 PCP: No primary care provider on file. Room#: [id number] Interval History: Patient doing okay. Still with some ruq pain. No chest pain or sob. No NV. No fevers or chills ADULT DIET; Regular ADULT ORAL NUTRITION SUPPLEMENT; PM Snack; Other Oral Supplement; [email or web address] Standard 1.0 Patient Vitals for the past [...] IntraVENous Once LABS: CBC: Recent Labs 03/19/22 0151 WBC 8.6 RBC 3.72* HGB 12.4 HCT 36.3 MCV 97.5 RDW 12.7 PLT 194 BMP: Recent Labs 03/19/22 0151 NA 134* K 4.1 CL 104 CO2 [...] of Hospitalist Medicine Inpatient Medical Services PAGER: [phone] * Sadia Chowdhury RN - 03/20/2022 5:09 [...] 2. 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 DYE MACHINE TENDER pt noted to reside at home with [...] much of anything, would like to try [email or web address] product here. (RD deferred making very specific [...] 5' 4 (162.6 cm) (per chart review) [place] Body Weight (IBW): 120 lbs (55 kg) [...] On: Kcal/kg Weight Used for Energy Requirements: [place] Energy (kcal/day): 1191-9584 kcal/day (25-30 kcal/kg) Weight Used for Protein Requirements: [place] Protein (g/day): 55-65 gm protein/day (1.0-1.2 gm [...] Too soon to determine Chetna Laws MS, BELLA, LD Contact: ERLink or *[phone] * Glenn Buenrostro MD - 03/20/2022 8:55 [...] ALKPHOS 68 62 LIPASE/AMYLASE: Recent Labs 03/17/22 154 LIPASE 50 LACTATE: No results for input(s): [...] Tomography ACCESSION EXAM DATE/TIME PROCEDURE ORDERING PROVIDER [id number] 03/17/2022 16:[address] Abdomen/Pelvis (Vielka VALDEZ MD, SEGUN Calvo PO, No IV) CPT code 35709 Reason For Exam (CT Abdomen/Pelvis (No PO, [...] Ultrasound ACCESSION EXAM DATE/TIME PROCEDURE ORDERING PROVIDER [id number] 03/17/2022 16:50 EDT US Transvaginal MD COURTNEY, SEGUN Calvo CPT code 92978 Reason For Exam (US Transvaginal) looking for [...] included. Hospitalist Progress Note 03/19/2022 2:11 PM [phone]: Please page me for patient care issues. [phone]: Please page [facility] night Hospitalist for any issues. Subjective: Admit Date: 03/17/2022 PCP: No primary care provider on file. Room#: 5132/[id number] Interval History: Patient states pain meds initially [...] of Hospitalist Medicine Inpatient Medical Services PAGER: [phone] * Madai Matamoros - 03/19/2022 1:56 PM EDT Nutrition rescreen completed. Patient referred to the Dietitian due to weight loss. MALCOLM Villanueva * Saige Hinkle PA-C - 03/19/2022 9:34 AM EDT Department of Internal Medicine Gastroenterology Patient to have MRI w wo contrast, not yet completed. - Recommend continuing to monitor LFT's daily. - We will continue to follow for results of MRI. - Continue other pain management and supportive care. - GI to follow. Saige Hinkle PA-C 03/19/2022 documented in this encounterSUMMA Work Phone: [phone] Miscellaneous Notes* Telephone Encounter - Nevin Lopes [...] RN * Telephone Encounter - Dayanara Reyes APRN.CNP - 03/23/2022 1:34 PM EDT Called patient left VM - Colonoscopy internal hemorrhoids repeat colonoscopy 10 years for screening. EGD - erosive gastropathy - continue PPI (protonix 40mg) - if you taking any NSAIDs - or drinking Alcohol - She can follow up VV or OV Thanks Dayanara Reyes APRN.CLAIMS SUPERVISOR documented in this encounterSouthwest General [facility] Center06-08-2022 Miscellaneous Notes* Telephone Encounter - Nadine [...] : Denies Protocols used: ABDOMINAL PAIN - [id number] documented in this encounterSouthwest General Health Center06-06-2022 Nurse Note* Lucille Farah RN - 03/15/2022 9:[address] Jimenes at bedside. Pt ready for discharge documented in this encounterSouthwest General Health Center06-06-2022 History and physical note * Daniela [...] None Daniela Jimenes MD documented in this encounterSouthwest General Health Center06-06-2022 Miscellaneous Notes* Telephone Encounter - Gianna [...] you. Gianna Trimble LPN documented in this encounterSouthwest General Health Center05-02-2022 Miscellaneous Notes* Telephone Encounter - Jess Estrada LPN - 02/08/2022 12:08 PM EDT Script was originally called to [facility] pharmacy on 01/29/2022. Printed off script and telephone encounter noting same and faxed to [facility] pharmacy as this time. Patient aware of same. * Telephone Encounter - Kalee Granado RN - 02/08/2022 11:39 AM EDT Patient calls to report that [facility] hasn't received the prescription for vancomycin yet. Patient asking if prescription can be re-faxed. Please review and advise, Kalee Granado RN documented in this encounterSouthwest General Health Center04-27-2022 Miscellaneous Notes* Letter - Mammography Coordinator - 02/03/2022 9:21 AM EDT February 03, 2022 PID: [id number] Joan Foley [address] [place] [id number] Dear Walker Og, We are pleased to inform you that [...] report will be [facility] as part of your permanent medical record and are available for your continuing care. Thank you for allowing us to help in meeting your health care needs. Sincerely, Dr. Lubin Interpreting Radiologist [facility] (Normal over 40) documented in this encounterSouthwest General Health Center04-26-2022 History of Present illness Narrative* RT Carrie(R) - 02/02/2022 4:00 PM EDT Radiology Service [...] 02, 2022 3:52 PM documented in this encounterSouthwest General Health Center04-12-2022 Miscellaneous Notes* Telephone Encounter - Dayanara [...] were talking she got a call from [employer]. Pt hung up with me to take [...] twice daily for 10 days. Thanks Dayanara Reyes documented in this encounterSouthwest General Health Center04-05-2022 Instructions* Patient Instructions* Dayanara Reyes APRN.CNP - 01/12/2022 3:42 PM EDT [facility] [address] [facility] [place], [place] [address] Blood work Stool studies Schedule EGD and Colonoscopy Your procedure will be at [place] - they will call you to set [...] (Tuesday for Tuesday procedures). documented in this encounterSouthwest General Health Center04-05-2022 History of Present illness Narrative* Dayanara [...] for internal providers or letter via the [employer] for external providers. 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 I have confirmed and edited as necessary, the PFSH and ROS obtained by others. Dayanara Reyes APRN.CNP DATE: 01/12/22 TIME: 1:13 PM documented in this encounterSouthwest General Health Center03-21-2022 Miscellaneous Notes* Telephone Encounter - Gianna [...] you. Gianna Trimble LPN documented in this encounterSouthwest General Health Center03-03-2022 Miscellaneous Notes* Telephone Encounter - Zoya Cowan LPN - 12/10/2021 3:49 PM EST Phone call placed, detailed message left VV scheduled January 25, 2022 at 2:00, [employer] message sent in addition. Zoya Cowan LPN documented in this encounterSouthwest General Health Center11-03-2021 History of Present illness Narrative* Loi [...] 12, 2021 3:31 PM documented in this encounterSouthwest General Health Center08-21-2014 History of Past illness Narrative* Problem [...] of this encounter (statuses as of 12/28/2021) [facility] of [facility] Narrative* Problem [...] of this encounter (statuses as of 01/18/2022) [facility] of [facility] Narrative* Problem [...] of this encounter (statuses as of 01/19/2022) [facility] of [facility] Narrative* Problem [...] of this encounter (statuses as of 02/03/2022) [facility] of [facility] Narrative* Problem [...] of this encounter (statuses as of 02/05/2022) [facility] of [facility] Narrative* Problem [...] of this encounter (statuses as of 02/08/2022) [facility] of [facility] Narrative* Problem [...] of this encounter (statuses as of 03/11/2022) [facility] of [facility] Narrative* Problem [...] of this encounter (statuses as of 03/15/2022) [facility] Narrative* Problem [...] of this encounter (statuses as of 03/16/2022) [facility] Narrative* Problem [...] of this encounter (statuses as of 03/18/2022) [facility] Narrative* Problem [...] of this encounter (statuses as of 03/31/2022) [facility] Narrative* Problem [...] of this encounter (statuses as of 04/02/2022) [facility] Narrative* Problem [...] of this encounter (statuses as of 04/08/2022) [facility] Narrative* Problem [...] of this encounter (statuses as of 04/23/2022) [facility] Narrative* Problem [...] of this encounter (statuses as of 04/26/2022) [facility] Narrative* Problem [...] of this encounter (statuses as of 04/26/2022) [facility] Narrative* Problem [...] of this encounter (statuses as of 05/10/2022) [facility] Narrative* Problem [...] of this encounter (statuses as of 05/10/2022) [facility] Narrative* Problem [...] of this encounter (statuses as of 06/29/2022) [facility] Narrative* Problem [...] of this encounter (statuses as of 06/30/2022) [facility] Narrative* Problem [...] of this encounter (statuses as of 08/12/2022) [facility] Narrative* Problem [...] of this encounter (statuses as of 10/13/2022) [facility] Narrative* Problem [...] of this encounter (statuses as of 10/13/2022) [facility] Narrative* Problem [...] of this encounter (statuses as of 10/25/2022) [facility] Narrative* Problem [...] of this encounter (statuses as of 11/25/2022) [facility] Narrative* Problem [...] of this encounter (statuses as of 11/29/2022) [facility] Narrative* Problem [...] of this encounter (statuses as of 12/19/2022) [facility] Narrative* Problem [...] of this encounter (statuses as of 12/23/2022) [facility] Narrative* Problem [...] of this encounter (statuses as of 12/30/2022) [facility] Narrative* Problem [...] of this encounter (statuses as of 2023) [facility]* Problem [...] of this encounter (statuses as of 01/05/2023) [facility] N[facility]* Problem [...] of this encounter (statuses as of 01/06/2023) [facility]* Problem [...] of this encounter (statuses as of 01/06/2023) [facility]* Problem [...] of this encounter (statuses as of 01/07/2023) [facility]* Problem [...] of this encounter (statuses as of 01/21/2023) [facility] N[facility]* Problem [...] of this encounter (statuses as of 01/22/2023) [facility] N[facility]* Problem [...] of this encounter (statuses as of 01/31/2023) [facility]* Problem [...] of this encounter (statuses as of 02/04/2023) [facility] N[facility]* Problem [...] of this encounter (statuses as of 02/04/2023) [facility] N[facility]* Problem [...] of this encounter (statuses as of 02/11/2023) [facility]* Problem [...] of this encounter (statuses as of 02/14/2023) [facility]* Problem [...] of this encounter (statuses as of 02/15/2023) [facility]* Problem [...] of this encounter (statuses as of 02/15/2023) [facility]* Problem [...] of this encounter (statuses as of 03/15/2023) [facility]* Problem [...] of this encounter (statuses as of 04/11/2023) [facility]* Problem [...] of this encounter (statuses as of 04/19/2023) [facility]* Problem [...] of this encounter (statuses as of 04/23/2023) [facility]* Problem [...] of this encounter (statuses as of 04/26/2023) [facility]* Problem [...] of this encounter (statuses as of 08/14/2023) [facility]* Problem [...] of this encounter (statuses as of 08/14/2023) [facility] N[facility]* Problem [...] of this encounter (statuses as of 08/14/2023) [facility]* Problem [...] of this encounter (statuses as of 08/19/2023) [facility] N[facility]* Problem [...] of this encounter (statuses as of 12/30/2023) [facility] N[facility]* Problem [...] of this encounter (statuses as of 01/02/2024) [facility] N[facility]* Problem [...] of this encounter (statuses as of 01/02/2024) [facility] Narrative* Problem [...] of this encounter (statuses as of 01/02/2024) [facility]* Diagnosis 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 Lieberman's esophagus Gastroesophageal reflux disease, unspecified whether esophagitis present Diarrhea, unspecified type Blood in stool Bloating Flatulence, eructation, and gas pain documented in this encounter [facility]* Diagnosis Encounter for screening mammogram for breast cancer documented in this encounter [facility]* Diagnosis Diarrhea, unspecified type Blood in stool Gastroesophageal reflux disease, unspecified whether esophagitis present 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 Lieberman's esophagus documented in this encounter [facility]* Diagnosis Abdominal mass, RUQ (right upper quadrant)- Primary Abdominal or pelvic swelling, mass, or lump, right upper quadrant Abdominal pain, right upper quadrant Liver mass Unspecified disorder of liver Nausea and vomiting, intractability of vomiting not specified, unspecified vomiting type Abdominal pain, epigastric Hx of gastroesophageal reflux (GERD) Personal history of other diseases of digestive system documented in this encounter [facility] Work Phone: Evaluation note* Diagnosis Hospital discharge follow-up- Primary Other follow-up examination Vitamin D deficiency Unspecified vitamin D deficiency Diarrhea, unspecified type Vitamin B12 deficiency Other B-complex deficiencies Brain fog documented in this encounter [facility]* Diagnosis Diarrhea, unspecified type documented in this encounter [facility]* Diagnosis Essential hypertension Unspecified essential hypertension documented in this encounter [facility]* Diagnosis Soft tissue mass- Primary Disorders of soft tissue, unspecified documented in this encounter [facility]* Diagnosis COVID-19 virus infection- Primary documented in this encounter [facility] noteNo assessment information availableWWilson Memorial Hospital Work Phone: Evaluation note* Diagnosis RUQ pain- Primary Abdominal pain, right upper quadrant Right flank pain Abdominal pain, unspecified site Diarrhea, unspecified type Nausea Nausea alone Chills Chills (without fever) [facility] Diagnosis Microvascular angina (HCC)- Primary Nonsustained ventricular tachycardia Paroxysmal ventricular tachycardia Primary hypertension Unspecified essential hypertension [facility] Diagnosis Microvascular angina (HCC) [facility] Diagnosis Finger pain, left- Primary Pain in limb [facility] Diagnosis Intractable headache, unspecified chronicity pattern, unspecified headache type [facility] Diagnosis Thunderclap headache- Primary Headache Orthostatic headache Headache Intractable migraine with aura without status migrainosus Migraine with aura, with intractable migraine, so stated, without mention of status migrainosus [facility] Diagnosis Thunderclap headache- Primary Headache Stabbing headache Primary stabbing headache [facility] Diagnosis Thunderclap headache- Primary Headache Acute non-recurrent sinusitis, unspecified location Intractable migraine with aura without status migrainosus Migraine with aura, with intractable migraine, so stated, without mention of status migrainosus [facility] Diagnosis Intractable migraine with aura with status migrainosus- Primary Migraine with aura, with intractable migraine, so stated, with status migrainosus [facility] Diagnosis Breast asymmetry- Primary Other specified disorders of breast [facility] Diagnosis Thunderclap headache Headache Intractable migraine with aura without status migrainosus Migraine with aura, with intractable migraine, so stated, without mention of status migrainosus [facility] Diagnosis Thunderclap headache Headache Intractable migraine with aura without status migrainosus Migraine with aura, with intractable migraine, so stated, without mention of status migrainosus [facility] Diagnosis Injury of left knee, initial encounter- Primary documented in this encounter [facility] note* Diagnosis Postural dizziness- Primary Dizziness and giddiness Pulsatile tinnitus Unspecified tinnitus Diarrhea, unspecified type Elevated liver enzymes Other nonspecific abnormal serum enzyme levels Abnormal RBC Other abnormality of red blood cells documented in this encounter [facility] note* Diagnosis Leukocytosis, unspecified type- Primary Low folate documented in this encounter [facility] note* Diagnosis Encounter for screening mammogram for malignant neoplasm of breast Other screening mammogram documented in this encounter [facility] note* Diagnosis Breast asymmetry Other specified disorders of breast documented in this encounter [facility] note* Diagnosis Low folate documented in this encounter [facility] note* Diagnosis Thunderclap headache Headache Intractable migraine with aura without status migrainosus Migraine with aura, with intractable migraine, so stated, without mention of status migrainosus documented in this encounter [facility] note* Diagnosis Microvascular angina (HCC)- Primary Nonsustained ventricular tachycardia (HCC) Paroxysmal ventricular tachycardia Primary hypertension Unspecified essential hypertension Tobacco abuse Tobacco use disorder documented in this encounter [facility] note* Diagnosis Encounter for screening mammogram for breast cancer documented in this encounter [facility] note* Diagnosis Insomnia- Primary Insomnia, unspecified Finger pain, left Pain in limb documented in this encounter [facility] note* Diagnosis Insomnia- Primary Insomnia, unspecified Muscle weakness Muscle weakness (generalized) documented in this encounter [facility] note* Diagnosis Migraine without status migrainosus, not intractable, unspecified migraine type- Primary documented in this encounter [facility] note* Diagnosis Insomnia- Primary Insomnia, unspecified Acute cough- Primary documented in this encounter [facility] note* Diagnosis Insomnia- Primary Insomnia, unspecified Bronchitis- Primary Bronchitis, not specified as acute or chronic Acute cough documented in this encounter [facility] note* Diagnosis Insomnia- Primary Insomnia, unspecified Acute cough documented in this encounter [facility] note* Diagnosis Insomnia- Primary Insomnia, unspecified Acute cough- Primary documented in this encounter [facility] note* Diagnosis Insomnia- Primary Insomnia, unspecified URI, acute- Primary Acute upper respiratory infections of unspecified site Exposure to influenza Contact with or exposure to other viral diseases documented in this encounter [facility] note* Diagnosis Insomnia- Primary Insomnia, unspecified Viral gastroenteritis- Primary Intestinal infection due to other organism, not elsewhere classified Encounter to obtain excuse from work documented in this encounter [facility] note* Diagnosis Insomnia- Primary Insomnia, unspecified Encounter for screening mammogram for breast cancer documented in this encounter [facility] note* Diagnosis Insomnia- Primary Insomnia, unspecified Hypertension Unspecified essential hypertension documented in this encounter [facility] note* Diagnosis Insomnia- Primary Insomnia, unspecified Annual physical exam- Primary Routine general medical examination at a health care facility Migraine with aura and without status migrainosus, not intractable Migraine with aura, without mention of intractable migraine without mention of status migrainosus PVC (premature ventricular contraction) Other premature beats Sweating abnormality Other specified disorder of sweat glands Hirsutism documented in this encounter [facility] Discharge instructions* Attachments The following attachments cannot be sent through Care Everywhere. * Migraines Discharge Instructions (Danish) * Lumbar Puncture Discharge Instructions (Danish) [facility] Outpatient Procedure (Routine) - Authorized Specialty Diagnoses / Procedures Referred By Isabela miles Referred To Contact [facility] Diagnoses Gastroesophageal reflux disease, unspecified whether esophagitis present 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 Procedures EGD DIAGNOSTIC ESOPHAGOGASTRODUODENOSC OPY TRANSORAL DIAGNOSTIC Dayanara Reyes APRN.CLAIMS SUPERVISOR [address] [place] [address] [facility] [address] [place] [address] Referral ID Status Reason Start Date Expiration Date Visits Requested Visits Authorized [id number] Authorized Auto-Generat ed Referral 01/12/2022 01/12/2023 1 1 * Outpatient Procedure (Routine) - Authorized Specialty Diagnoses / Procedures Referred By Isabela miles Referred To Contact [facility] Diagnoses Diarrhea, unspecified type Blood in stool Procedures COLONOSCOPY DIAGNOSTIC COLONOSCOPY FLX DX W/COLLJ SPEC WHEN Dayanara Watt APRN.CNP [address] [place] [address] [facility] [address] [place] [address] Referral ID Status Reason Start Date Expiration Date Visits Requested Visits Authorized [id number] Authorized Auto-Generat ed Referral 01/12/2022 01/12/2023 1 1 [facility] for referral (narrative)* Outpatient Procedure (Routine) - Closed Specialty Diagnoses / Procedures Referred By Contac t Referred To Contact [facility] Diagnoses Gastroesophageal reflux disease, unspecified whether esophagitis present 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 Procedures EGD DIAGNOSTIC ESOPHAGOGASTRODUODENOSC OPY TRANSORAL DIAGNOSTIC Dayanara Reyes APRN.CLAIMS SUPERVISOR [address] [place] [address] [facility] [address] [place], [place] [id number] Referral ID Status Reason Start Date Expiration Date V isits Requested Visits Authorized [id number] Closed Auto-Generate d Referral 01/12/2022 01/12/2023 1 1 * Outpatient Procedure (Routine) - Closed Specialty Diagnoses / Procedures Referred By Contac t Referred To Contact [facility] Diagnoses Diarrhea, unspecified type Blood in stool Procedures COLONOSCOPY DIAGNOSTIC COLONOSCOPY FLX DX W/COLLJ SPEC WHEN PFRMD Dayanara Reyes APRN.CLAIMS SUPERVISOR [address] [place] [address] [facility] [address] [place] [address] Referral ID Status Reason Start Date Expiration Date V isits Requested Visits Authorized [id number] Closed Auto-Generate d Referral 01/12/2022 01/12/2023 1 1 [facility] for referral (narrative)* Diagnostic Procedure Only (Routine) - Pending Review Specialty Diagnoses / Procedures Referred By Contac t Referred To Contact [facility] Diagnoses Soft tissue mass Procedures US CHEST WALL/SOFT TISSUE US CHEST REAL TIME W/IMAGE DOCUMENTATION Carole Moore APRN.CLAIMS SUPERVISOR [address] [place] [address] [facility] Referral ID Status Reason Start Date Expiration Date Visits Requested Visits Authorized [id number] Pending Review Auto-Generat ed Referral 06/30/2022 07/30/2023 1 1 * Diagnostic Procedure Only (Routine) - Pending Review Specialty Diagnoses / Procedures Referred By Contac t Referred To Contact [facility] Diagnoses Soft tissue mass Procedures US SOFT TISSUE ABDOMEN US ABDOMINAL REAL TIME W/IMAGE LIMITED Carole Moore APRN.CNP [address] [place] [address] [facility] Referral ID Status Reason Start Date Expiration Date Visits Requested Visits Authorized [id number] Pending Review Auto-Generat ed Referral 06/30/2022 07/30/2023 1 1 [facility] for referral (narrative)* Outpatient Procedure (Routine) - Closed Specialty Diagnoses / Procedures Referred By Contac t Referred To Contact [facility] Diagnoses Essential hypertension Procedures ECG COMPLETE ECG ROUTINE ECG W/LEAST 12 LDS W/I&R Jose Hayes MD [address] [place] [address] [facility] [address] [address] Referral ID Status Reason Start Date Expiration Date V isits Requested Visits Authorized [id number] Closed Auto-Generate d Referral 10/15/2022 10/15/2023 1 1 [facility] for referral (narrative)* Diagnostic Procedure Only (Urgent) - Closed Specialty Diagnoses / Procedures Referred By Contac t Referred To Contact [facility] Diagnoses Finger pain, left Procedures XR DIGIT GENERAL 3V FRONTAL/LAT/OBL LEFT RADEX FINGR MINIMUM 2 VIEWS Perry Ballard PA-C [address] [place] [address] [facility] Referral ID Status Reason Start Date Expiration Date V isits Requested Visits Authorized [id number] Closed Auto-Generate d Referral 11/29/2022 12/29/2023 1 1 [facility] for referral (narrative)* Diagnostic Procedure Only (Routine) - Pending Review Specialty Diagnoses / Procedures Referred By Contac t Referred To Contact [facility] Diagnoses Breast asymmetry Procedures ALMA DIAGNOSTIC RIGHT DIAGNOSTIC MAMMOGRAPHY COMPUTER-AIDED DETCJ UNI Leanna Patel APRN.CLAIMS SUPERVISOR [address] [place] [address] [facility] [address] [address] Referral ID Status Reason Start Date Expiration Date Visits Requested Visits Authorized [id number] Pending Review Auto-Generat ed Referral 02/11/2023 03/12/2024 1 1 * Diagnostic Procedure Only (Routine) - Pending Review Specialty Diagnoses / Procedures [facility] Diagnoses Breast asymmetry Procedures US BREAST LTD RIGHT US BREAST UNI REAL TIME WITH IMAGE LIMITED Leanna Patel APRN.CLAIMS SUPERVISOR [address] [place] [address] [facility] [address] [address] Referral ID Status Reason Start Date Expiration Date Visits Requested Visits Authorized [id number] Pending Review Auto-Generat ed Referral 02/11/2023 03/12/2024 1 1 [facility] for referral (narrative)* Diagnostic Procedure Only (Urgent) - Closed Specialty Diagnoses / Procedures [facility] To Contact [facility] Diagnoses Injury of left knee, initial encounter Procedures XR KNEE GENERAL 4V AP BOTH/PA BOTH/LAT/MERC LEFT RADIOLOGIC EXAM KNEE COMPLETE 4/MORE VIEWS Albina Padilla PA-C [address] [place] [address] [facility] Referral ID Status Reason Start Date Expiration Date V isits Requested Visits Authorized [id number] Closed Auto-Generate d Referral 04/11/2023 05/10/2024 1 1 [facility] for referral (narrative)* Outpatient Procedure (Routine) - Closed Specialty Diagnoses / Procedures Referred By Contac t Referred [facility] Diagnoses Pulsatile tinnitus Procedures ECG COMPLETE ECG ROUTINE ECG W/LEAST 12 LDS W/I&R Bee Fairchild APRN.CLAIMS SUPERVISOR [address] [place] [address] [facility] [address] [place] [address] Referral ID Status Reason Start Date Expiration Date V isits Requested Visits Authorized [id number] Closed Auto-Generate d Referral 04/18/2023 04/17/2024 1 1 [facility] for referral (narrative)* Diagnostic Procedure Only (Routine) - Closed Specialty Diagnoses / Procedures Referred By Contac t Referred To Contact [facility] Diagnoses Encounter for screening mammogram for malignant neoplasm of breast Procedures ALMA SCREENING SCREENING MAMMOGRAPHY BI 2-VIEW BREAST INC Yamileth Sanchez APRN.CLAIMS SUPERVISOR [address] [place] [address] [facility] [address] [place] [address] Referral ID Status Reason Start Date Expiration Date V isits Requested Visits Authorized [id number] Closed Auto-Generate d Referral 12/30/2022 01/29/2024 1 1 [facility] for referral (narrative)* Diagnostic Procedure Only (Routine) - Pending Review Specialty Diagnoses / Procedures Referred By Contac t Referred To Contact [facility] Diagnoses Encounter for screening mammogram for breast cancer Procedures ALMA SCREENING SCREENING MAMMOGRAPHY BI 2-VIEW BREAST INC Nicky Hunt MD [address] [place] [address] [facility] [address] [place] [address] Referral ID Status Reason Start Date Expiration Date Visits Requested Visits Authorized [id number] Pending Review Auto-Generat ed Referral 03/14/2024 04/13/2025 1 1 [facility] for referral (narrative)* Diagnostic Procedure Only (Urgent) - Closed Specialty Diagnoses / Procedures Referred By Contac t Referred To Contact [facility] IMAG[facility] Diagnoses Finger pain, left Procedures XR DIGIT GENERAL 3V FRONTAL/LAT/OBL LEFT RADEX FINGR MINIMUM 2 VIEWS Perry Ballard PA-C [address] [place] [address] [place] [address] Referral ID Status Reason Start Date Expiration Date V isits Requested Visits Authorized [id number] Closed Auto-Generate d Referral 11/29/2022 12/29/2023 1 1 [facility] for referral (narrative)* Diagnostic Procedure Only (Routine) - Closed Specialty Diagnoses / Procedures Referred By Contac t Referred To Contact [facility] Diagnoses Muscle weakness Procedures XR LUMBAR GENERAL 3V AP/LAT/L5-S1 X-RAY L-S SPINE AP/LATERAL Nicky Knight MD [address] [place] [address] [place] [address] Referral ID Status Reason Start Date Expiration Date V isits Requested Visits Authorized [id number] Closed Auto-Generate d Referral 08/11/2021 09/10/2022 1 1 [facility] for referral (narrative)No reason for referral information [facility] Work Phone: Reason for visit Narrative* Outpatient Procedure (Routine) - Closed Specialty Diagnoses / Procedures Referred By Isabela t Referred To Contact [facility] Diagnoses Gastroesophageal reflux disease, unspecified whether esophagitis present 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 Procedures EGD DIAGNOSTIC ESOPHAGOGASTRODUODENOSC OPY TRANSORAL DIAGNOSTIC Dayanara Reyes, STENCIL PRINTER.CLAIMS SUPERVISOR [address] [place] [address] [facility] [address] [place] [address] Referral ID Status Reason Start Date Expiration Date V isits Requested Visits Authorized [id number] Closed Auto-Generate d Referral 01/12/2022 01/12/2023 1 1 [facility] for visit Narrative* Diagnostic Procedure Only (Routine) - Closed Specialty Diagnoses / Procedures Referred By Contac t Referred To Contact [facility] Diagnoses Encounter for screening mammogram for malignant neoplasm of breast Procedures ALMA SCREENING SCREENING MAMMOGRAPHY BI 2-VIEW BREAST INC CAD Yamileth Tafoya, STENCIL PRINTER.CLAIMS SUPERVISOR [address] [place] [address] [facility] [address] [place] [phone] Referral ID Status Reason Start Date Expiration Date V isits Requested Visits Authorized [id number] Closed Auto-Generate d Referral 12/30/2022 01/29/2024 1 1 [facility] for visit Narrative* Diagnostic Procedure Only (Routine) - Closed Specialty Diagnoses / Procedures Referred By Isabela t Referred To Contact [facility] Diagnoses Breast asymmetry Procedures ALMA DIAGNOSTIC RIGHT DIAGNOSTIC MAMMOGRAPHY COMPUTER-AIDED DETCJ [facility] Leanna Patel, STENCIL PRINTER.CLAIMS SUPERVISOR [address] [place] [address] [facility] [address] [place] [phone] Referral ID Status Reason Start Date Expiration Date V isits Requested Visits Authorized [id number] Closed Auto-Generate d Referral 02/11/2023 03/12/2024 1 1 [facility] for visit Narrative* Diagnostic Procedure Only (Urgent) - Closed Specialty Diagnoses / Procedures Referred By Isabela t Referred To Contact XR IMAGING Diagnoses Injury of left knee, initial encounter Procedures XR KNEE GENERAL 4V AP BOTH/PA BOTH/LAT/MERC LEFT RADIOLOGIC EXAM KNEE COMPLETE 4/MORE VIEWS Albina Padilla, PA-C [address] [place] [address] [place] [address] Referral ID Status Reason Start Date Expiration Date V isits Requested Visits Authorized [id number] Closed Auto-Generate d Referral 04/11/2023 05/10/2024 1 1 [facility] for visit Narrative* Diagnostic Procedure Only (Urgent) - Closed Specialty Diagnoses / Procedures Referred By Contac t Referred To Contact [facility] IMAGING Diagnoses Finger pain, left Procedures XR DIGIT GENERAL 3V FRONTAL/LAT/OBL LEFT RADEX FINGR MINIMUM 2 VIEWS Perry Ballard PA-C [address] [place] [id number] [place] [address] Referral ID Status Reason Start Date Expiration Date V isits Requested Visits Authorized [id number] Closed Auto-Generate d Referral 11/29/2022 12/29/2023 1 1 [facility] for visit Narrative* Diagnostic Procedure Only (Routine) - Closed Specialty Diagnoses / Procedures Referred By Contac t Referred To Contact X[facility] IMAGING Diagnoses Muscle weakness Procedures XR LUMBAR GENERAL 3V AP/LAT/L5-S1 X-RAY L-S SPINE AP/LATERAL Nicky Knight MD [address] [place] [address] [place] [address] Referral ID Status Reason Start Date Expiration Date V isits Requested Visits Authorized [id number] Closed Auto-Generate d Referral 08/11/2021 09/10/2022 1 1 [facility] Summary Purpose Family History No Family History Records Found Relationship Condition Age at Onset Recorded Date/T venita Unknown Family History?- Unknown October 11:04am Family History?- Unknown October 11:04am Relationship Condition Age at Onset Recorded Date/T venita Unknown Family History?- Unknown October 12:04pm Family History?- Unknown October 12:04pm Advance Directives No Advanced Directives Records FoundDocuments on File Type Date Recorded Patient Ring Stamper Expl anation Advance Directive(s) 10/20/2018 2:48 PM [...] Documents on File Type Date Recorded Patient Ring Stamper Expl anation Advance Directive(s) 09/11/2021 5:42 PM Advance Directive(s) 10/26/2019 8:34 PM Advance Directive(s) 08/17/2019 1:12 PM Advance Directive(s) 10/20/2018 2:48 PM Advance Directive(s) 10/19/2018 8:09 AM provided --19 to be vetted Advance Directive(s) 10/12/2018 2:21 PM Advance Directive(s) 10/01/2016 10:39 AM Documents on File Type Date Recorded Patient Ring Stamper Expl anation Advance Directive(s) 09/11/2021 5:42 PM Advance Directive(s) 10/26/2019 8:34 PM Advance Directive(s) 08/17/2019 1:12 PM Advance Directive(s) 10/20/2018 2:48 PM Advance Directive(s) 10/19/2018 8:09 AM provided --19 to be vetted Advance Directive(s) 10/12/2018 2:21 PM Advance Directive(s) 10/01/2016 10:39 AM Latest Code Status on File Code Status Date Activated Date Inactivated Comments Full Code 10/27/2019 9:31 AM 10/27/2019 4:47 PM Full Code 11/02/2018 11:34 PM 11/04/2018 7:59 PM Documents on File Type Date Recorded Patient Ring Stamper Expl anation Advance Directive(s) 03/15/2022 7:46 AM Advance Directive(s) 09/11/2021 5:42 PM Advance Directive(s) 10/26/2019 8:34 PM Advance Directive(s) 08/17/2019 1:12 PM Advance Directive(s) 10/20/2018 2:48 PM Advance Directive(s) 10/19/2018 8:09 AM provided -10-19 to be vetted Advance Directive(s) 10/12/2018 2:21 PM Advance Directive(s) 10/01/2016 10:39 AM Documents on File Type Date Recorded Patient Ring Stamper Expl anation Advance Directive(s) 03/15/2022 7:46 AM Advance Directive(s) 09/11/2021 5:42 PM Advance Directive(s) 10/26/2019 8:34 PM Advance Directive(s) 08/17/2019 1:12 PM Advance Directive(s) 10/20/2018 2:48 PM Advance Directive(s) 10/19/2018 8:09 AM provided 10-19-18 to be vetted Advance Directive(s) 10/12/2018 2:21 PM Advance Directive(s) 10/01/2016 10:39 AM Documents on File Type Date Recorded Patient Ring Stamper Expl anation ACP-Advance Directive ACP-Power of Electromatic Typist Latest Code Status on File Code Status Date Activated Date Inactivated Comments Full Code 03/18/2022 2:09 AM Full Code 09/04/2017 1:11 PM 09/06/2017 12:10 PM Documents on File Type Date Recorded Patient Ring Stamper Expl anation Advance Directive(s) 10/20/2018 2:48 PM Advance Directive Response Recorded Date/ Time Advance Directives No June 8:34pm Living Will No October 06, 2 022 6:54pm Power of Electromatic Typist No October 06, 2022 6:54pm Advance Directive Response Recorded Date/ Time Name of Medical Power of Electromatic Typist LISETTE FOLEY- December 19, 2022 4:54pm Name of Medical Power of Electromatic Typist December 22, 2022 3:22pm Advance Directives No June 9:34pm Living Will Yes December 22, 2022 3:22pm Power of Electromatic Typist Yes December 22 3:22pm Advance Directive Response Recorded Date/ Time Name of Medical Power of Electromatic Typist LISETTE FOLEY- December 19, 2022 4:54pm Name of Medical Power of Electromatic Typist December 22, 2022 3:22pm Advance Directives No June 9:34pm Living Will No 2023 5:08pm Power of Electromatic Typist No January 04 5:08pm Latest Code Status [...] No April 25, 2023 1:42pm Power of Electromatic Typist No April 25 1:42pm Date Activated Date Inactivated Comments 10/27/2019 9:31 AM 10/27/2019 4:47 PM Question Answer Comments Full Code Order Discussed With: Patient Date Activated Date Inactivated Comments 11/02/2018 11:34 PM 11/04/2018 7:59 PM Question Answer Comments Full Code Order Discussed With: Patient Advance Directive Response Recorded Date/ Time Advance Directives No June 9:34pm Reason for Referral Specialty Diagnoses / Procedures Referred By Contac t Referred To Contact Gastroenterology Diagnoses Diarrhea, unspecified type Procedures CONSULT TO GASTROENTEROLOGY OFFICE/OUTPATIENT [facility] 60-74 MINUTES Nicky Knight MD [address] [place] [address] Referral ID Status Reason Start Date Expiration Date Visits Requested Visits Authorized [id number] Authorized PCP Requested Referral 04/08/2022 04/08/2023 1 1 Specialty Diagnoses / Procedures Referred By Contac t Referred To Contact Neurology Diagnoses Intractable headache, unspecified chronicity pattern, unspecified headache type Procedures CONSULT TO NEUROLOGY OFFICE/OUTPATIENT [facility] 60-74 MINUTES Angelica Aviles PA-C [address] [address] Referral ID Status Reason Start Date Expiration Date Visits Requested Visits Authorized [id number] Authorized PCP Requested Referral 2023 2024 1 1 Specialty Diagnoses / Procedures Referred By Contac t Referred To Contact Ent - Otolaryngology Diagnoses Acute non-recurrent sinusitis, unspecified location Thunderclap headache Intractable migraine with aura without status migrainosus Procedures CONSULT TO ENT OFFICE/OUTPATIENT NEW HIGH MDM 60-74 MINUTES Aide Haynes DO [address] [place] [address] Referral ID Status Reason Start Date Expiration Date Visits Requested Visits Authorized [id number] Authorized PCP Requested Referral 02/04/2023 02/04/2024 1 1 Specialty Diagnoses / Procedures Referred By Isabela miles Referred To Contact Diagnoses Thunderclap headache Intractable migraine with aura without status migrainosus Amos Smith, STENCIL [employer]INTER.[employer] SUPERVIS[employer] [address] [place] [address] Referral ID Status Reason Start Date Expiration Date V isits Requested Visits Authorized [id number] Pending Review 1 1 Chief Complaint and Reason for Visit Chief Complaint right flank pain Chief Complaint right flank pain HEADACHE HEADACHE Headache Chief Complaint right flank pain HEADACHE HEADACHE Headache HEADACHE Chief Complaint HEADACHE CP Chief Complaint Admit Date FASTING April 05, 2025 7:04 am Medications Administered Section Inactive Administered Medications - [...] (10 mL), OTHER, ONCE, 1 dose, On Tue01/07/23 at 1000 Given 01/07/2023 10:00 AM EDT 25 mg Other Additional Source Comments INFORMATION SOURCE (unrecogn ized section and content) DATE CREATED AUTHOR 02/15/2019 [facility] DATE CREATED AUTHOR AUTHOR'S ORGANIZ ATION 06/04/2020 [facility] DATE CREATED AUTHOR AUTHOR'S ORGANIZ ATION 09/13/2021 [facility] DATE CREATED AUTHOR AUTHOR'S ORGANIZ ATION 03/18/2022 [facility] DATE CREATED AUTHOR AUTHOR'S ORGANIZ ATION 05/01/2022 [facility] DATE CREATED AUTHOR AUTHOR'S ORGANIZ ATION 12/24/2022 [facility] DATE CREATED AUTHOR AUTHOR'S ORGANIZ ATION 06/11/2023 [facility] DATE CREATED AUTHOR AUTHOR'S ORGANIZ ATION 04/11/2025 [facility] DATE CREATED AUTHOR AUTHOR'S ORGANIZ ATION 04/12/2025 [facility] Source Comments (unrecognize d section and content) In the event this informatio n is protected by the Federal Confidentiality of Alcohol and Drug Abuse Patient Records regulations: The Federal rules restrict any use of the information to criminally investigate or prosecute any alcohol or drug abuse patient.[facility] the event this information is protected by the Federal Confidentiality of Alcohol and Drug Abuse Patient Records regulations: The Federal rules restrict any use of the information to criminally investigate or prosecute any alcohol or drug abuse patient.[facility] CenterIn the event this information is protected by the Federal Confidentiality of Alcohol and Drug Abuse Patient Records regulations: The Federal rules restrict any use of the information to criminally investigate or prosecute any alcohol or drug abuse patient.[facility] CenterIn the event this information is protected by the Federal Confidentiality of Alcohol and Drug Abuse Patient Records regulations: The Federal rules restrict any use of the information to criminally investigate or prosecute any alcohol or drug abuse patient.[facility] CenterIn the event this information is protected by the Federal Confidentiality of Alcohol and Drug Abuse Patient Records regulations: The Federal rules restrict any use of the information to criminally investigate or prosecute any alcohol or drug abuse patient.[facility] CenterIn the event this information is protected by the Federal Confidentiality of Alcohol and Drug Abuse Patient Records regulations: The Federal rules restrict any use of the information to criminally investigate or prosecute any alcohol or drug abuse patient.[facility] CenterIn the event this information is protected by the Federal Confidentiality of Alcohol and Drug Abuse Patient Records regulations: The Federal rules restrict any use of the information to criminally investigate or prosecute any alcohol or drug abuse patient.[facility] CenterIn the event this information is protected by the Federal Confidentiality of Alcohol and Drug Abuse Patient Records regulations: The Federal rules restrict any use of the information to criminally investigate or prosecute any alcohol or drug abuse patient.[facility] CenterIn the event this information is protected by the Federal Confidentiality of Alcohol and Drug Abuse Patient Records regulations: The Federal rules restrict any use of the information to criminally investigate or prosecute any alcohol or drug abuse patient.[facility] CenterIn the event this information is protected by the Federal Confidentiality of Alcohol and Drug Abuse Patient Records regulations: The Federal rules restrict any use of the information to criminally investigate or prosecute any alcohol or drug abuse patient.[facility] CenterIn the event this information is protected by the Federal Confidentiality of Alcohol and Drug Abuse Patient Records regulations: The Federal rules restrict any use of the information to criminally investigate or prosecute any alcohol or drug abuse patient.[facility] CenterIn the event this information is protected by the Federal Confidentiality of Alcohol and Drug Abuse Patient Records regulations: The Federal rules restrict any use of the information to criminally investigate or prosecute any alcohol or drug abuse patient.[facility] CenterIn the event this information is protected by the Federal Confidentiality of Alcohol and Drug Abuse Patient Records regulations: The Federal rules restrict any use of the information to criminally investigate or prosecute any alcohol or drug abuse patient.[facility] CenterIn the event this information is protected by the Federal Confidentiality of Alcohol and Drug Abuse Patient Records regulations: The Federal rules restrict any use of the information to criminally investigate or prosecute any alcohol or drug abuse patient.[facility] CenterIn the event this information is protected by the Federal Confidentiality of Alcohol and Drug Abuse Patient Records regulations: The Federal rules restrict any use of the information to criminally investigate or prosecute any alcohol or drug abuse patient.[facility] CenterIn the event this information is protected by the Federal Confidentiality of Alcohol and Drug Abuse Patient Records regulations: The Federal rules restrict any use of the information to criminally investigate or prosecute any alcohol or drug abuse patient.[facility] CenterIn the event this information is protected by the Federal Confidentiality of Alcohol and Drug Abuse Patient Records regulations: The Federal rules restrict any use of the information to criminally investigate or prosecute any alcohol or drug abuse patient.[facility] CenterIn the event this information is protected by the Federal Confidentiality of Alcohol and Drug Abuse Patient Records regulations: The Federal rules restrict any use of the information to criminally investigate or prosecute any alcohol or drug abuse patient.[facility] CenterIn the event this information is protected by the Federal Confidentiality of Alcohol and Drug Abuse Patient Records regulations: The Federal rules restrict any use of the information to criminally investigate or prosecute any alcohol or drug abuse patient.[facility] CenterIn the event this information is protected by the Federal Confidentiality of Alcohol and Drug Abuse Patient Records regulations: The Federal rules restrict any use of the information to criminally investigate or prosecute any alcohol or drug abuse patient.[facility] CenterIn the event this information is protected by the Federal Confidentiality of Alcohol and Drug Abuse Patient Records regulations: The Federal rules restrict any use of the information to criminally investigate or prosecute any alcohol or drug abuse patient.[facility] CenterIn the event this information is protected by the Federal Confidentiality of Alcohol and Drug Abuse Patient Records regulations: The Federal rules restrict any use of the information to criminally investigate or prosecute any alcohol or drug abuse patient.[facility] CenterIn the event this information is protected by the Federal Confidentiality of Alcohol and Drug Abuse Patient Records regulations: The Federal rules restrict any use of the information to criminally investigate or prosecute any alcohol or drug abuse patient.[facility] CenterIn the event this information is protected by the Federal Confidentiality of Alcohol and Drug Abuse Patient Records regulations: The Federal rules restrict any use of the information to criminally investigate or prosecute any alcohol or drug abuse patient.[facility] CenterIn the event this information is protected by the Federal Confidentiality of Alcohol and Drug Abuse Patient Records regulations: The Federal rules restrict any use of the information to criminally investigate or prosecute any alcohol or drug abuse patient.[facility] CenterIn the event this information is protected by the Federal Confidentiality of Alcohol and Drug Abuse Patient Records regulations: The Federal rules restrict any use of the information to criminally investigate or prosecute any alcohol or drug abuse patient.[facility] CenterIn the event this information is protected by the Federal Confidentiality of Alcohol and Drug Abuse Patient Records regulations: The Federal rules restrict any use of the information to criminally investigate or prosecute any alcohol or drug abuse patient.[facility] CenterIn the event this information is protected by the Federal Confidentiality of Alcohol and Drug Abuse Patient Records regulations: The Federal rules restrict any use of the information to criminally investigate or prosecute any alcohol or drug abuse patient.[facility] CenterIn the event this information is protected by the Federal Confidentiality of Alcohol and Drug Abuse Patient Records regulations: The Federal rules restrict any use of the information to criminally investigate or prosecute any alcohol or drug abuse patient.[facility] CenterIn the event this information is protected by the Federal Confidentiality of Alcohol and Drug Abuse Patient Records regulations: The Federal rules restrict any use of the information to criminally investigate or prosecute any alcohol or drug abuse patient.[facility] CenterIn the event this information is protected by the Federal Confidentiality of Alcohol and Drug Abuse Patient Records regulations: The Federal rules restrict any use of the information to criminally investigate or prosecute any alcohol or drug abuse patient.[facility] CenterIn the event this information is protected by the Federal Confidentiality of Alcohol and Drug Abuse Patient Records regulations: The Federal rules restrict any use of the information to criminally investigate or prosecute any alcohol or drug abuse patient.[facility] CenterIn the event this information is protected by the Federal Confidentiality of Alcohol and Drug Abuse Patient Records regulations: The Federal rules restrict any use of the information to criminally investigate or prosecute any alcohol or drug abuse patient.[facility] CenterIn the event this information is protected by the Federal Confidentiality of Alcohol and Drug Abuse Patient Records regulations: The Federal rules restrict any use of the information to criminally investigate or prosecute any alcohol or drug abuse patient.[facility] CenterIn the event this information is protected by the Federal Confidentiality of Alcohol and Drug Abuse Patient Records regulations: The Federal rules restrict any use of the information to criminally investigate or prosecute any alcohol or drug abuse patient.[facility] CenterIn the event this information is protected by the Federal Confidentiality of Alcohol and Drug Abuse Patient Records regulations: The Federal rules restrict any use of the information to criminally investigate or prosecute any alcohol or drug abuse patient.[facility] CenterIn the event this information is protected by the Federal Confidentiality of Alcohol and Drug Abuse Patient Records regulations: The Federal rules restrict any use of the information to criminally investigate or prosecute any alcohol or drug abuse patient.[facility] CenterIn the event this information is protected by the Federal Confidentiality of Alcohol and Drug Abuse Patient Records regulations: The Federal rules restrict any use of the information to criminally investigate or prosecute any alcohol or drug abuse patient.[facility] CenterIn the event this information is protected by the Federal Confidentiality of Alcohol and Drug Abuse Patient Records regulations: The Federal rules restrict any use of the information to criminally investigate or prosecute any alcohol or drug abuse patient.[facility] CenterIn the event this information is protected by the Federal Confidentiality of Alcohol and Drug Abuse Patient Records regulations: The Federal rules restrict any use of the information to criminally investigate or prosecute any alcohol or drug abuse patient.[facility] CenterIn the event this information is protected by the Federal Confidentiality of Alcohol and Drug Abuse Patient Records regulations: The Federal rules restrict any use of the information to criminally investigate or prosecute any alcohol or drug abuse patient.[facility] CenterIn the event this information is protected by the Federal Confidentiality of Alcohol and Drug Abuse Patient Records regulations: The Federal rules restrict any use of the information to criminally investigate or prosecute any alcohol or drug abuse patient.[facility] CenterIn the event this information is protected by the Federal Confidentiality of Alcohol and Drug Abuse Patient Records regulations: The Federal rules restrict any use of the information to criminally investigate or prosecute any alcohol or drug abuse patient.[facility] CenterIn the event this information is protected by the Federal Confidentiality of Alcohol and Drug Abuse Patient Records regulations: The Federal rules restrict any use of the information to criminally investigate or prosecute any alcohol or drug abuse patient.[facility] CenterIn the event this information is protected by the Federal Confidentiality of Alcohol and Drug Abuse Patient Records regulations: The Federal rules restrict any use of the information to criminally investigate or prosecute any alcohol or drug abuse patient.[facility] CenterIn the event this information is protected by the Federal Confidentiality of Alcohol and Drug Abuse Patient Records regulations: The Federal rules restrict any use of the information to criminally investigate or prosecute any alcohol or drug abuse patient.[facility] the event this information is protected by the Federal Confidentiality of Alcohol and Drug Abuse Patient Records regulations: The Federal rules restrict any use of the information to criminally investigate or prosecute any alcohol or drug abuse patient.[facility] CenterIn the event this information is protected by the Federal Confidentiality of Alcohol and Drug Abuse Patient Records regulations: The Federal rules restrict any use of the information to criminally investigate or prosecute any alcohol or drug abuse patient.[facility] CenterIn the event this information is protected by the Federal Confidentiality of Alcohol and Drug Abuse Patient Records regulations: The Federal rules restrict any use of the information to criminally investigate or prosecute any alcohol or drug abuse patient.[facility] CenterIn the event this information is protected by the Federal Confidentiality of Alcohol and Drug Abuse Patient Records regulations: The Federal rules restrict any use of the information to criminally investigate or prosecute any alcohol or drug abuse patient.[facility] CenterIn the event this information is protected by the Federal Confidentiality of Alcohol and Drug Abuse Patient Records regulations: The Federal rules restrict any use of the information to criminally investigate or prosecute any alcohol or drug abuse patient.[facility] CenterIn the event this information is protected by the Federal Confidentiality of Alcohol and Drug Abuse Patient Records regulations: The Federal rules restrict any use of the information to criminally investigate or prosecute any alcohol or drug abuse patient.[facility] CenterIn the event this information is protected by the Federal Confidentiality of Alcohol and Drug Abuse Patient Records regulations: The Federal rules restrict any use of the information to criminally investigate or prosecute any alcohol or drug abuse patient.[facility] CenterIn the event this information is protected by the Federal Confidentiality of Alcohol and Drug Abuse Patient Records regulations: The Federal rules restrict any use of the information to criminally investigate or prosecute any alcohol or drug abuse patient.[facility] CenterIn the event this information is protected by the Federal Confidentiality of Alcohol and Drug Abuse Patient Records regulations: The Federal rules restrict any use of the information to criminally investigate or prosecute any alcohol or drug abuse patient.[facility] CenterIn the event this information is protected by the Federal Confidentiality of Alcohol and Drug Abuse Patient Records regulations: The Federal rules restrict any use of the information to criminally investigate or prosecute any alcohol or drug abuse patient.[facility] CenterIn the event this information is protected by the Federal Confidentiality of Alcohol and Drug Abuse Patient Records regulations: The Federal rules restrict any use of the information to criminally investigate or prosecute any alcohol or drug abuse patient.[facility]In the event this information is protected by the Federal Confidentiality of Alcohol and Drug Abuse Patient Records regulations: The Federal rules restrict any use of the information to criminally investigate or prosecute any alcohol or drug abuse patient.[facility]In the event this information is protected by the Federal Confidentiality of Alcohol and Drug Abuse Patient Records regulations: The Federal rules restrict any use of the information to criminally investigate or prosecute any alcohol or drug abuse patient.[facility] CenterIn the event this information is protected by the Federal Confidentiality of Alcohol and Drug Abuse Patient Records regulations: The Federal rules restrict any use of the information to criminally investigate or prosecute any alcohol or drug abuse patient.[facility] CenterIn the event this information is protected by the Federal Confidentiality of Alcohol and Drug Abuse Patient Records regulations: The Federal rules restrict any use of the information to criminally investigate or prosecute any alcohol or drug abuse patient.[facility] CenterIn the event this information is protected by the Federal Confidentiality of Alcohol and Drug Abuse Patient Records regulations: The Federal rules restrict any use of the information to criminally investigate or prosecute any alcohol or drug abuse patient.[facility] CenterIn the event this information is protected by the Federal Confidentiality of Alcohol and Drug Abuse Patient Records regulations: The Federal rules restrict any use of the information to criminally investigate or prosecute any alcohol or drug abuse patient.[facility] CenterIn the event this information is protected by the Federal Confidentiality of Alcohol and Drug Abuse Patient Records regulations: The Federal rules restrict any use of the information to criminally investigate or prosecute any alcohol or drug abuse patient.[facility] CenterIn the event this information is protected by the Federal Confidentiality of Alcohol and Drug Abuse Patient Records regulations: The Federal rules restrict any use of the information to criminally investigate or prosecute any alcohol or drug abuse patient.[facility] CenterIn the event this information is protected by the Federal Confidentiality of Alcohol and Drug Abuse Patient Records regulations: The Federal rules restrict any use of the information to criminally investigate or prosecute any alcohol or drug abuse patient.[facility] CenterIn the event this information is protected by the Federal Confidentiality of Alcohol and Drug Abuse Patient Records regulations: The Federal rules restrict any use of the information to criminally investigate or prosecute any alcohol or drug abuse patient.[facility] CenterIn the event this information is protected by the Federal Confidentiality of Alcohol and Drug Abuse Patient Records regulations: The Federal rules restrict any use of the information to criminally investigate or prosecute any alcohol or drug abuse patient.[facility] CenterIn the event this information is protected by the Federal Confidentiality of Alcohol and Drug Abuse Patient Records regulations: The Federal rules restrict any use of the information to criminally investigate or prosecute any alcohol or drug abuse patient.[facility] CenterIn the event this information is protected by the Federal Confidentiality of Alcohol and Drug Abuse Patient Records regulations: The Federal rules restrict any use of the information to criminally investigate or prosecute any alcohol or drug abuse patient.[facility] CenterIn the event this information is protected by the Federal Confidentiality of Alcohol and Drug Abuse Patient Records regulations: The Federal rules restrict any use of the information to criminally investigate or prosecute any alcohol or drug abuse patient.[facility] CenterIn the event this information is protected by the Federal Confidentiality of Alcohol and Drug Abuse Patient Records regulations: The Federal rules restrict any use of the information to criminally investigate or prosecute any alcohol or drug abuse patient.[facility] CenterIn the event this information is protected by the Federal Confidentiality of Alcohol and Drug Abuse Patient Records regulations: The Federal rules restrict any use of the information to criminally investigate or prosecute any alcohol or drug abuse patient.[facility] CenterIn the event this information is protected by the Federal Confidentiality of Alcohol and Drug Abuse Patient Records regulations: The Federal rules restrict any use of the information to criminally investigate or prosecute any alcohol or drug abuse patient.[facility] CenterIn the event this information is protected by the Federal Confidentiality of Alcohol and Drug Abuse Patient Records regulations: The Federal rules restrict any use of the information to criminally investigate or prosecute any alcohol or drug abuse patient.[facility] CenterIn the event this information is protected by the Federal Confidentiality of Alcohol and Drug Abuse Patient Records regulations: The Federal rules restrict any use of the information to criminally investigate or prosecute any alcohol or drug abuse patient.[facility] CenterIn the event this information is protected by the Federal Confidentiality of Alcohol and Drug Abuse Patient Records regulations: The Federal rules restrict any use of the information to criminally investigate or prosecute any alcohol or drug abuse patient.[facility] CenterIn the event this information is protected by the Federal Confidentiality of Alcohol and Drug Abuse Patient Records regulations: The Federal rules restrict any use of the information to criminally investigate or prosecute any alcohol or drug abuse patient.[facility] CenterIn the event this information is protected by the Federal Confidentiality of Alcohol and Drug Abuse Patient Records regulations: The Federal rules restrict any use of the information to criminally investigate or prosecute any alcohol or drug abuse patient.[facility] CenterIn the event this information is protected by the Federal Confidentiality of Alcohol and Drug Abuse Patient Records regulations: The Federal rules restrict any use of the information to criminally investigate or prosecute any alcohol or drug abuse patient.[facility] Reason for Visit (unrecogniz ed section [...] TO GASTROENTEROLOGY NEW PATIENT VISIT LEVEL 5 Kiya Moore STENCIL PRINTER.CLAIMS SUPERVISOR [address] [place] [address] Referral ID Status Reason Start Date Expiration Date V isits Requested Visits Authorized [id number] Closed PCP Requested Referral 06/02/2021 06/02/2022 1 1 Reason Comments Patient Update Reason Onset Date Comments Refill Request 02/08/2022 Reason Comments Refill Request Reason Onset Date Comments Refill Request 03/15/2022 Reason Comments Appointment Reason Comments Abdominal Pain Reason Comments abdomen pain Reason Comments Results Medication Problem Reason Comments Hospital Follow Up [facility] March 17- J une 18th, wt loss, diarrhea, right upper quandrant pain [...] Transition Of Care 12/29/2022 TCM Initial A [facility] Discharge 12/28/22 Reason Comments Pain Pain in vein after I V Reason Comments New Patient Headache Specialty Diagnoses / Procedures Referred By Isabela miles Referred To Contact Neurology Diagnoses Intractable headache, unspecified chronicity pattern, unspecified headache type Procedures CONSULT TO NEUROLOGY OFFICE/OUTPATIENT NEW HIGH MDM 60-74 MINUTES Yamileth Tafoya, STENCIL PRINTER.CLAIMS SUPERVISOR [address] [place] [address] Referral ID Status Reason Start Date Expiration Date V isits Requested Visits Authorized [id number] Closed PCP Requested Referral 12/30/2022 12/30/2023 1 [...] x2 weeks Reason Comments Results Reason Comments Hurl Shaker - Other Reason Comments fmla forms Reason Onset Date Comments Refill Request 12/29/2023 Reason Onset Date Comments Refill Request 12/29/2023 Reason Comments Follow Up Reason Comments Insurance Authoriztion [employer] Reason Comments Radiology MRI Reason Comments Headache Reason Comments No Show Reason Comments Cough Cough and congestion x 1 month-was better and got worse last night Reason Comments Cough Reason Comments Low Back Pain X 2 days-also diarrh ea all day Reason Comments Intestinal Disorder Reason Comments Headache Discuss migraines Reason Comments Insurance Authorization Care Teams (unrecognized sec tion and content) Investigator Narcotics Relationship Specialty Start Date End Date Nicky Knight MD [address] [place] [address] PCP - General Internal Medicine 08/17/19 Investigator Narcotics Relationship Specialty Start Date End Date Nicky Knight MD [address] [facility] [place] [address] PCP - General Internal Medicine 08/17/19 Investigator Narcotics Relationship Specialty Start Date End Date Nicky Knight MD [address] [facility] [place] [address] PCP - General Internal Medicine 08/17/19 Investigator Narcotics Relationship Specialty Start Date End Date Nicky Knight MD [address] [facility] [place] [address] PCP - General Internal Medicine 08/17/19 Investigator Narcotics Relationship Specialty Start Date End Date Nicky Knight MD [address] [place] [address] PCP - General Internal Medicine 08/17/19 Investigator Narcotics Relationship Specialty Start Date End Date Nicky Knight MD [address] [facility] [place] [address] PCP - General Internal Medicine 08/17/19 Investigator Narcotics Relationship Specialty Start Date End Date Nicky Knight MD [address] [facility] [address] PCP - General Internal Medicine 08/17/19 Investigator Narcotics Relationship Specialty Start Date End Date Nicky Knight MD [address] [facility] [place] [address] PCP - General Internal Medicine 08/17/19 Investigator Narcotics Relationship Specialty Start Date End Date Nicky Knight MD [address] [facility] [place] [address] PCP - General Internal Medicine 08/17/19 Investigator Narcotics Relationship Specialty Start Date End Date Nicky Knight MD [address] [facility] [place] [address] PCP - General Internal Medicine 08/17/19 Investigator Narcotics Relationship Specialty Start Date End Date Nicky Knight MD [address] [facility] [address] PCP - General Internal Medicine 08/17/19 Investigator Narcotics Relationship Specialty Start Date End Date Nicky Knight MD [address] [facility] [address] PCP - General Internal Medicine 08/17/19 Investigator Narcotics Relationship Specialty Start Date End Date Nicky Knight MD [address] [facility] [address] PCP - General Internal Medicine 08/17/19 Investigator Narcotics Relationship Specialty Start Date End Date Nicky Knight MD [address] [facility] [place] [address] PCP - General Internal Medicine 08/17/19 Investigator Narcotics Relationship Specialty Start Date End Date Nicky Knight MD [address] [facility] [place] [address] PCP - General Internal Medicine 08/17/19 Investigator Narcotics Relationship Specialty Start Date End Date Nicky Knight MD [address] [facility] [place] [address] PCP - General Internal Medicine 08/17/19 Investigator Narcotics Relationship Specialty Start Date End Date Nicky Knight MD [address] [facility] [place] [address] PCP - General Internal Medicine 08/17/19 Investigator Narcotics Relationship Specialty Start Date End Date Nicky Knight MD [address] [facility] [place] [address] PCP - General Internal Medicine 08/17/19 Investigator Narcotics Relationship Specialty Start Date End Date Nicky Knight MD [address] [facility] [place] [address] PCP - General Internal Medicine 08/17/19 Investigator Narcotics Relationship Specialty Start Date End Date Nicky Knight MD [address] [facility] [place] [address] PCP - General 04/07/22 Investigator Narcotics Relationship Specialty Start Date End Date Nicky Knight MD [address] [facility] [place] [address] PCP - General Internal Medicine 08/17/19 Team [...] Dr. Andria Carcamo DO Emergency Provider Active Investigator Narcotics Relationship Specialty Start Date End Date Nicky Knight MD [address] [facility] [place] [address] PCP - General Internal Medicine 08/17/19 Investigator Narcotics Relationship Specialty Start Date End Date Nicky Knight MD [address] [facility] [place] [address] PCP - General Internal Medicine 08/17/19 Investigator Narcotics Relationship Specialty Start Date End Date Nicky Knight MD [address] [facility] [place] [address] PCP - General Internal Medicine 08/17/19 Team [...] Nicky Knight MD Primary Care Provider Active Investigator Narcotics Relationship Specialty Start Date End Date Nicky Knight MD [address] [facility] [place] [address] PCP - General Internal Medicine 08/17/19 Investigator Narcotics Relationship Specialty Start Date End Date Nicky Knight MD [address] [facility] [place] [address] PCP - General Internal Medicine 08/17/19 Investigator Narcotics Relationship Specialty Start Date End Date Nicky Knight MD [address] [facility] [address] PCP - General Internal Medicine 08/17/19 Investigator Narcotics Relationship Specialty Start Date End Date Nicky Knight MD [address] [facility] [address] PCP - General Internal Medicine 08/17/19 Investigator Narcotics Relationship Specialty Start Date End Date Nicky Knight MD [address] [facility] [address] PCP - General Internal Medicine 08/17/19 Investigator Narcotics Relationship Specialty Start Date End Date Nicky Knight MD [address] [facility] [place] [address] PCP - General Internal Medicine 08/17/19 Investigator Narcotics Relationship Specialty Start Date End Date Nicky Knight MD [address] [facility] [place] [address] PCP - General Internal Medicine 08/17/19 Investigator Narcotics Relationship Specialty Start Date End Date Nicky Knight MD [address] [facility] [place] [address] PCP - General Internal Medicine 08/17/19 Investigator Narcotics Relationship Specialty Start Date End Date Nicky Knight MD [address] [facility] [place] [address] PCP - General Internal Medicine 08/17/19 Investigator Narcotics Relationship Specialty Start Date End Date Nicky Knight MD [address] [facility] [place] [address] PCP - General Internal Medicine 08/17/19 Investigator Narcotics Relationship Specialty Start Date End Date Nicky Knight MD [address] [facility] [place] [address] PCP - General Internal Medicine 08/17/19 Team Status: Inactive Member Role Status Dates Dr. John Valdez MD Attending Provider, Emergency Provi jon Active Dr. Nicky Knight MD Primary Care Provider Active Team Status: Inactive Member Role Status Dates Dr. Nicky Knight MD Primary Care Provider Active Dr. Sakshi Akhtar MD Emergency Provider Active Investigator Narcotics Relationship Specialty Start Date End Date Nicky Knight MD [address] [place] [address] PCP - General Internal Medicine 08/17/19 Investigator Narcotics Relationship Specialty Start Date End Date Nicky Knight MD [address] [place] [address] PCP - General Internal Medicine 08/17/19 Investigator Narcotics Relationship Specialty Start Date End Date Nicky Knight MD [address] [place] [address] PCP - General Internal Medicine 08/17/19 Investigator Narcotics Relationship Specialty Start Date End Date Nicky Knight MD [address] [place] [address] PCP - General Internal Medicine 08/17/19 Investigator Narcotics Relationship Specialty Start Date End Date Nicky Knight MD [address] [place] [address] PCP - General Internal Medicine 08/17/19 Investigator Narcotics Relationship Specialty Start Date End Date Nicky Knight MD [address] [place] [address] PCP - General Internal Medicine 08/17/19 Investigator Narcotics Relationship Specialty Start Date End Date Nicky Knight MD [address] [facility] [address] PCP - General Internal Medicine 08/17/19 Investigator Narcotics Relationship Specialty Start Date End Date Nicky Knight MD [address] [facility] [place] [address] PCP - General Internal Medicine 08/17/19 Investigator Narcotics Relationship Specialty Start Date End Date Nicky Knight MD [address] [facility] [place] [address] PCP - General Internal Medicine 08/17/19 Investigator Narcotics Relationship Specialty Start Date End Date Nicky Knight MD [address] [facility] [place] [address] PCP - General Internal Medicine 08/17/19 Investigator Narcotics Relationship Specialty Start Date End Date Nicky Knight MD [address] [place] [address] PCP - General Internal Medicine 08/17/19 Investigator Narcotics Relationship Specialty Start Date End Date Nicky Knight MD [address] [place] [address] PCP - General Internal Medicine 08/17/19 Investigator Narcotics Relationship Specialty Start Date End Date Nicky Knight MD [address] [facility] [place] [address] PCP - General Internal Medicine 08/17/19 Investigator Narcotics Relationship Specialty Start Date End Date Nicky Knight MD [address] [facility] [place] [address] PCP - General Internal Medicine 08/17/19 Investigator Narcotics Relationship Specialty Start Date End Date Nicky Knight MD [address] [place] [address] PCP - General 04/07/22 Investigator Narcotics Relationship Specialty Start Date End Date Nicky Knight MD [address] [place] [address] PCP - General Internal Medicine 08/17/19 Albina Padilla PA-C [address] [place] [address] [id number] [phone] Head Athletic Trainer/Strength Coach Family Medicine 09/16/24 Carole Moore APRN.CLAIMS SUPERVISOR [address] [place] [address] Head Athletic Trainer/Strength Coach Internal Medicine 09/16/24 Cristal Jamison PA-C [address] [place] [address] Head Athletic Trainer/Strength Coach Family Medicine 09/16/24 Investigator Narcotics Relationship Specialty Start Date End Date Nicky Knight MD [address] [place] [address] PCP - General Internal Medicine 08/17/19 Albina Padilla PA-C [address] [place] [id number] Head Athletic Trainer/Strength Coach Family Medicine 09/16/24 Carole Moore, STENCIL PRINTER.CLAIMS SUPERVISOR [address] [place] [address] Head Athletic Trainer/Strength Coach Internal Medicine 09/16/24 Cristal Jamison PA-C [address] [place] [address] Head Athletic Trainer/Strength Coach Family Medicine 09/16/24 Investigator Narcotics Relationship Specialty Start Date End Date Nicky Knight MD [address] [place] [address] PCP - General Internal Medicine 08/17/19 Albina Padilla PA-C [address] [place] [address] Head Athletic Trainer/Strength Coach Family Medicine 09/16/24 Carole Moore APRN.CLAIMS SUPERVISOR [address] [place] [address] Head Athletic Trainer/Strength Coach Internal Medicine 09/16/24 Cristal Jamison PA-C [address] [place] [address] Head Athletic Trainer/St[facility] 09/16/24 Investigator Narcotics Relationship Specialty Start Date End Date Nicky Knight MD [address] [place] [address] PCP - General Internal Medicine 08/17/19 Albina Padilla PA-C [address] [place] [address] Head Athletic Trainer/Strength Coach Family Medicine 09/16/24 Carole Moore, STENCIL PRINTER.CLAIMS SUPERVISOR [address] [place] [address] Head Athletic Trainer/Strength Coach Internal Medicine 09/16/24 Cristal Jamison PA-C [address] [place] [address] Head Athletic Trainer/Strength Coach Family Medicine 09/16/24 Investigator Narcotics Relationship Specialty Start Date End Date Nicky Knight MD [address] [place] [address] PCP - General Internal Medicine 08/17/19 Albina Padilla PA-C [address] [place] [address] Head Athletic Trainer/Strength Coach Family Medicine 09/16/24 Carole Moore APRN.CLAIMS SUPERVISOR [address] [place] [address] Head Athletic Trainer/Strength Coach Internal Medicine 09/16/24 Cristal Jamison PA-C [address] [place] [address] Head Athletic Trainer/Strength Coach Family Medicine 09/16/24 Investigator Narcotics Relationship Specialty Start Date End Date Nicky Knight MD [address] [place] [address] PCP - General Internal Medicine 08/17/19 Albina Padilla PA-C [address] [place] [address] Head Athletic Trainer/Strength Coach Family Medicine 09/16/24 Carole Moore APRN.CLAIMS SUPERVISOR [address] [place] [address] Head Athletic Trainer/Strength Coach Internal Medicine 09/16/24 Cristal Jamison PA-C [address] [place] [address] Head Athletic Trainer/Strength Coach Family Medicine 09/16/24 Investigator Narcotics Relationship Specialty Start Date End Date Nicky Knight MD [address] [place] [address] PCP - General Internal Medicine 08/17/19 Carole Moore APRN.CLAIMS SUPERVISOR [address] [place] [address] Head Athletic Trainer/Strength Coach Internal Medicine 09/16/24 Investigator Narcotics Relationship Specialty Start Date End Date Nicky Knight MD [address] [place] [address] PCP - General Internal Medicine 08/17/19 Albina Padilla PA-C [address] [place] [address] Head Athletic Trainer/Strength Coach Family Medicine 09/16/24 12/30/24 Carole Moore APRN.CLAIMS SUPERVISOR [address] [place] [address] Head Athletic Trainer/Strength Coach Internal Medicine 09/16/24 Cristal Jamison PA-C [address] [place] [address] Head Athletic Trainer/Strength Coach Family Medicine 09/16/24 12/30/24 Investigator Narcotics Relationship Specialty Start Date End Date Nicky Knight MD [address] [place] [address] PCP - General Internal Medicine 08/17/19 Carole Moore APRN.CLAIMS SUPERVISOR [address] [place] [address] [facility] Internal Medicine 09/16/24 Investigator Narcotics Relationship Specialty Start Date End Date Nicky Knight MD [address] [place] [address] PCP - General Internal Medicine 08/17/19 Carole Moore APRN.CLAIMS SUPERVISOR [address] [place], [place] [address] Head Athletic Trainer/Strength Coach Internal Medicine 09/16/24 Investigator Narcotics Relationship Specialty Start Date End Date Nicky Knight MD [address] [place] [address] PCP - General Internal Medicine 08/17/19 Carole Moore APRN.CLAIMS SUPERVISOR [address] [place] [address] [facility] Internal Medicine 09/16/24 Team Status: Active Member Role/Relationship Status Dates Dr. Nicky Knight MD Primary Care Provider Active Team Status: Inactive Member Role/Relationship Status Dates Dr. Nicky Knight MD Primary Care Provider Active Start: April 05, 2025 End: April 05, 2025 CAROLE MOORE MUTUAL FUND SALES AGENT-C Attending Provider Active Start : April 05, 2025 End: April 05, 2025 CAROLE MOORE MUTUAL FUND SALES AGENT-C Referring Provider Active Start : April 05, 2025 End: April 05, 2025 Investigator Narcotics Relationship Specialty Start Date End Date Nicky Knight MD [address] [place], [place] [address] PCP - General Internal Medicine 08/17/19 Carole Moore APRN.CLAIMS SUPERVISOR [address] [place] [address] [facility] Internal Medicine 09/16/24 Ordered Prescriptions (unrec ognized [...] 0802 (Given - Provider: Sadia Grace RN) 0823 (Given - Provider: Emerita Whaley, KB) 101 (Given - Provider: Sadia Grace RN) dilTIAZem (CARDIZEM CD) extended release capsule 120 mg 120 mg, Oral, DAILY, First dose on 03/20/22 at 0900, Until Discontinued, Do not crush or break. 1999 (Given - Provider: Narinder Patel RN) 2058 (Given - Provider: Tanya Lugo, KB) 2099 (Due) furosemide (LASIX) tablet 20 mg 20 mg, Oral, DAILY, First dose on 03/20/22 at 0900, Until Discontinued 752 (Not Given - Provider: Sadia Grace RN - Reason: Patient/family refused) 823 (Not Given - Provider: Emerita Whaley RN - Reason: Patient/family refused) 916 (Not Given - Provider: Sadia Grace RN - Reason: Patient/family refused) gabapentin (NEURONTIN) capsule 300 mg 300 mg, Oral, NIGHTLY, First dose on 03/20/22 at 2100, Until Discontinued 1999 (Given - Provider: Narinder Patel RN) 2099 (Given - Provider: Tanya Lugo, KB) 2099 (Due) losartan (COZAAR) tablet 50 mg [...] 08 (Given - Provider: Sadia Grace RN) 0636 (Given - Provider: Narinder Patel RN) 0556 (Given - Provider: Tanya Lugo, RN) potassium chloride (KLOR-CON M) extended release tablet 10 mEq 10 mEq, Oral, DAILY WITH BREAKFAST, First dose on 03/20/22 at 0800, Until Discontinued, Do not crush or break. 08 (Given - Provider: Sadia Grace RN) 822 (Given - Provider: Emerita Whaley, RN) 1013 (Given - Provider: Sadia Grace RN) sennosides-docusate sodium (SENOKOT-S) 8.6-50 MG tablet 2 tablet 2 tablet, Oral, 2 times daily, First dose on Bernarda 03/25/22 at 2100, Until Discontinued 1999 (Given - Provider: Narinder Patel RN) 822 (Given - Provider: Emerita Whaley, KB)2058 (Given - Provider: Tanya Lugo, KB) 1013 (Given - Provider: Sadia Grace RN)2099 (Due) [...] Midline or Central Line = 20 mL/lumen 08 (Given - Provider: Sadia Grace RN)2005 (Given - Provider: Narinder Patel RN) 823 (Given - Provider: Emerita Whaley, KB)2099 (Not Given - Provider: Tanya Lugo RN - Reason: Other - Comment: SQ IV) 0900 (Due)2099 (Due) traZODone (DESYREL) tablet 50 mg 50 mg, Oral, NIGHTLY, First dose on 03/20/22 at 2100, Until Discontinued 1999 (Given - Provider: Narinder Patel, KB) 2099 (Given - Provider: Tanya Lugo, KB) 2099 (Due) vitamin D (ERGOCALCIFEROL) capsule 50,000 [...] long duration, Starting on Bernarda 03/18/22 at 0206, For piggyback infusion, administer at [...] RN) 0013 (Given - Provider: Narinder Patel RN)210 (Given - Provider: Tanya Lugo RN - Comment: barcode not scanning; pharmacy notified.) 0418 (Given - Provider: Tanya Lugo RN) HYDROmorphone (DILAUDID) injection 0.5 mg (CANCELED) HYDROmorphone (DILAUDID) 1.5mg IV is equivalent to morphine 10mg IV, 0.5 mg, SubCUTAneous, EVERY 4 HOURS PRN, Starting on Tue03/23/22 at 2120, Until Tue03/27/22 at 1002, Pain Severe (7-10), only if [...] Bernarda 03/18/22 at 0206, Until Discontinued, Nausea, Vomiting, Administer if oral route cannot be used. 0803 (See Alternative - Provider: Sadia Grace RN)1642 (See Alternative - Provider: Sadia Grace RN) 1228 (See Alternative - Provider: Emerita Whaley, KB)2100 (See Alternative - Provider: Tanya Lugo, KB) 0418 (See Alternative - Provider: Tanya Lugo RN) ondansetron (ZOFRAN-ODT) disintegrating tablet 4 mg(Linked Group 1) 4 mg, Oral, EVERY 8 HOURS PRN, Starting on Bernarda 03/18/22 at 0206, Until Discontinued, Nausea, Vomiting 0803 (Given - Provider: Sadia Grace RN)1642 (Given - Provider: Sadia Grace RN) 1228 (Given - Provider: Emerita Whaley, KB)2100 (Given - Provider: Tanya Lugo, KB) 0418 (Given - Provider: Tanya Lugo, KB) oxyCODONE (ROXICODONE) immediate release tablet 10 mg (CANCELED) 10 mg, Oral, EVERY 4 HOURS PRN, Starting on Tu03/23/22 at 1337, Until 03/27/22 at 1107, Pain Severe (7-10) 0149 (Given - Provider: Jojo Parada)1224 (Given - Provider: Sadia Grace RN)1642 (Given - Provider: Sadia Grace RN)1955 (Given - Provider: Narinder Patel, KB) 0007 (Given - Provider: Narinder Patel, KB)0412 (Given - Provider: Narinder Patel, KB)0823 (Given - Provider: Emerita Whaley, KB)1228 (Given - Provider: Emerita Whaley RN)1638 (Given [...] BE BASED ON THE PRIMARY CLINICAL RECORDS. [facility] [employer] [facility]. provides no warranty or guarantee of the accuracy or completeness of information in this document.
[2025-05-12 13:54] VITALS: BP 115/82; PULSE 73; RESP 16; O2SAT 100
--- NOTE | 2025-05-12 14:10 | EDS_ITS ---
HPI History of Present Illness Chief Complaint: Allergic Reaction Narrative Narrative: Patient is a 45-year-old female with past medical history of migraines, hypertension, nonsustained ventricular tachycardia, IBS, anxiety, depression, GERD who presented to the emergency department with a chief complaint of shaking, vomiting and not feeling well overall. She states that yesterday evening she took the venlafaxine as her provider recently started on this for migraine headaches. States that she woke up in the [place] with the symptoms and noted that she had some hand shaking associated with this was concerned that she was having allergic reaction therefore she came here for further evaluation management. Patient denies any sick contacts. [facility] Medical History Migraines Hypertension NSVT (nonsustained ventricular tachycardia) IBS (irritable bowel syndrome) Essential hypertension Anxiety and depression Obesity (BMI 30.0-34.9) Tobacco use GERD (gastroesophageal reflux disease) Hepatic adenoma RUQ pain Abnormal stress test Chest pain Partial obstruction of small intestine Abdominal pain Home Medications ?Medication ?Instructions ?Recorded ?Last Taken ?Type ergocalciferol (vitamin D2) 1,250 50,000 unit PO MO [place] pplement 07/03/20 11/03/20 History mcg (50,000 unit) capsule furosemide 20 mg tablet 20 mg PO DAILY PRN PRN Swell ing 07/03/20 Unknown History rizatriptan 10 mg tablet 10 mg PO .X1 PRN PRN migrain es 07/03/20 Unknown History ondansetron 4 mg disintegrating 4 mg PO Q8H PRN nausea and 05/21/21 Unknown Rx tablet vomiting #10 tabs diltiazem HCl 120 mg 120 mg PO DAILY 05/25/21 Unk nown History capsule,extended release 24 hr bupropion HCl 150 mg 24 hr tablet, 150 mg PO DAILY Unknown History extended release hydroxyzine HCl 25 mg tablet 25 mg PO QHS 12/20/21 Unk nown History losartan 50 mg tablet 50 mg PO DAILY 12/20/21 Unkn own History diphenhydramine HCl 25 mg capsule 25 mg PO Q8H PRN all ergic reaction 10/06/22 Unknown Rx (Benadryl) #12 caps epinephrine 0.3 mg/0.3 mL 0.3 mg (0.3 mL) IM Q4H PRN 1 12/07/21 Unknown Rx injection, auto-injector (EpiPen anaphylaxis #2 ea 2-Mike) famotidine 20 mg tablet (Pepcid) 20 mg PO BID #4 tabs 10/06/22 Unknown Rx prednisone 50 mg tablet 50 mg PO DAILY #2 tabs 10/06 Unknown Rx [id number] 1 cap PO Q8H PRN len n 3 days #7 12/19/22 Unknown Rx 50 mg-300 mg-40 mg capsule caps (Fioricet) oxycodone-acetaminophen 5 mg-325 1 tab PO Q8H PRN pain 3 days #10 04/25/23 Unknown Rx mg tablet (Percocet) tabs diazepam 5 mg tablet (Valium) 5 mg PO TID PRN vertigo 7 days #21 11/28/24 Unknown Rx tabs omeprazole 20 mg capsule,delayed 20 mg PO DAILY Unknown History release ondansetron 4 mg disintegrating 4 mg PO TID PRN nausea and 11/28/24 Unknown Rx tablet vomiting #21 tabs semaglutide 0.25 mg or 0.5 mg (2 0.25 mg subcut QWEEK 11/28/24 Unknown History mg/3 mL) subcutaneous pen injector (Ozempic) ondansetron 4 mg disintegrating 4 mg PO Q6H PRN nausea and 05/12/25 Unknown Rx tablet vomiting #20 tabs Allergy/AdvReac Type Severity Reaction Status Date / Time latex Allergy Mild IRRIATION, Verified 05/12/25 11:58 OR IF SHE INGEST SHE VOMITS. Iodine and Iodide Containing Allergy Anaphylaxis Verified 05/12/25 11:58 Produc morphine Allergy Itching Verified 05/12/25 11:58 Penicillins Allergy Anaphylaxis Verified 05/12/25 11:58 meperidine (From Demerol) AdvReac Nausea Verified 05/12/25 11:58 propoxyphene (From AdvReac Nausea Verified 05/12/25 11:58 Darvocet-N) varenicline (From Chantix) AdvReac Turns me Verified 05/12/25 11:58 into a crazy person Surgical History History of carpal tunnel release History of surgery of liver Status post appendectomy Status post hysterectomy Status post cholecystectomy Social History household members: spouse and children Smoking Status: Current every day smoker tobacco type: cigarettes alcohol intake: current details: occasional substance use type: does not use ROS ROS ED ROS Narrative Constitutional: Complains of headache denies any fevers or dizziness Eyes: Denies change in vision double vision blurry vision Cardiovascular: Denies chest pain Respiratory: Denies shortness of breath Abdomen: Complains of nausea vomiting as noted above denies abdominal pain : Denies any urinary symptoms Neurological: Denies any numbness, wheeze, tingling Musculoskeletal: Denies back pain Skin: Denies any rashes or lesions EXAM Physical Exam Narrative Exam Narrative: General: Patient is lying in bed rest comfortably did not appear to be in acute distress Head: Atraumatic, normocephalic Eyes: PERRL bilaterally, EOMI bilateral, no conjunctival injection noted Neck: Soft, supple, trachea midline Cardiovascular: Regular rate and rhythm Respiratory: Clear to auscultation bilaterally Abdomen: Soft, nondistended, nontender to palpation Extremities: +5/5 strength noted in the bilateral upper and lower extremities, radial pulses +2/4 in the bladder extremities Neurological: Patient follow commands knew she was at [facility] the year is 2024. NIH is 0 GCS 15 Skin: Warm, dry, intact no rashes or lesions noted Const Vital Signs: 05/12/25 11:55 Temperature 98.2 F Temperature Source Oral Pulse Rate 99 Respiratory Rate 22 H Blood Pressure 138/98 H Blood Pressure Mean 111 Pulse Ox 100 Oxygen Delivery Method Room Air MDM MDM MDM Narrative Medical decision making narrative: Patient is a 45-year-old female who presented to the Emergency Department with concern for allergic reaction to venlafaxine. On the differential diagnosis includes but not limited to allergic reaction, anxiety, viral gastroenteritis. Patient given IV fluids Reglan and Ativan. At this point time do not feel that imaging is warranted as her exam is benign. Patient's EKG showed sinus rhythm rate of 84 bpm. Patient was requesting something for a headache she was given Tylenol. On reevaluation the patient she is feeling much improved and would like to go home at this point in time. She was vies to follow-up with her doctors in the outpatient setting and return for worsening symptoms or other concerns. She is agreeable to this plan all question concerns answered she was discharged home in stable condition. Discharge Plan Triage Chief Complaint: Allergic Reaction ED Provider: Gerald Angel Dx/Rx/DC Orders Clinical Impression: Nausea & vomiting, Migraine Prescriptions: New ondansetron 4 mg tablet,disintegrating 4 mg PO Q6H PRN (Reason: nausea and vomiting) Qty: 20 0RF No Action rizatriptan 10 MG tablet 10 mg PO .X1 PRN PRN (Reason: migraines) furosemide 20 MG tablet 20 mg PO DAILY PRN PRN (Reason: Swelling) ergocalciferol (vitamin D2) 50,000 UNIT capsule 50,000 unit PO MO ondansetron 4 mg tablet,disintegrating 4 mg PO Q8H PRN (Reason: nausea and vomiting) Qty: 10 0RF diltiazem HCl 120 mg capsule,extended release 24hr 120 mg PO DAILY losartan 50 mg Tablet 50 mg PO DAILY hydroxyzine HCl 25 mg tablet 25 mg PO QHS Patient Comments: TAKE 1 TABLET BY MOUTH EVERY 6 HOURS NEEDED FOR ITCHING/RASH. bupropion HCl 150 mg tablet extended release 24 hr 150 mg PO DAILY Patient Comments: TAKE 1 TABLET BY MOUTH EVERY DAY prednisone 50 mg tablet 50 mg PO DAILY Qty: 2 0RF famotidine [Pepcid] 20 mg tablet 20 mg PO BID Qty: 4 0RF diphenhydramine HCl [Benadryl] 25 mg capsule 25 mg PO Q8H PRN (Reason: allergic reaction) Qty: 12 0RF epinephrine [EpiPen 2-Mike] 0.3 mg/0.3 mL auto-injector 0.3 mg IM Q4H PRN (Reason: anaphylaxis) Qty: 2 0RF [id number] [Fioricet] 50-300-40 mg capsule 1 cap PO Q8H PRN (Reason: pain) 3 Days Qty: 7 0RF oxycodone-acetaminophen [Percocet] 5-325 mg tablet 1 tab PO Q8H PRN (Reason: pain) 3 Days Qty: 10 0RF Ozempic 0.25 mg or 0.5 mg (2 mg/3 mL) pen injector 0.25 mg subcut QWEEK Rx Instructions: for 4 weeks omeprazole 20 mg capsule,delayed release(DR/EC) 20 mg PO DAILY diazepam [Valium] 5 mg tablet 5 mg PO TID PRN (Reason: vertigo) 7 Days Qty: 21 0RF ondansetron 4 mg tablet,disintegrating 4 mg PO TID PRN (Reason: nausea and vomiting) Qty: 21 0RF Primary Care Provider: Nicky Mccall Referrals: Nicky Mccall MD [Primary Care Provider] - Activity Restrictions/Additional Instructions: Follow-up with your doctor as an outpatient setting. Return with worsening symptoms or any concerns. Continue supportive care. Print Language: Lebanese Disposition Disposition: Home, Self Care
[2025-05-12 14:15] VITALS: BP 125/80; PULSE 74; RESP 16; TEMP 36.4; O2SAT 100
== END 2025-05-12 14:26 | disposition home or self-care (01) ==
PROVIDERS: Emergency Provider Emergency Medicine; PCP Internal Medicine; Visit Provider Emergency Medicine
DX: G43.909 Migraine, unspecified, not intractable, without status migrainosus (principal); F17.210 Nicotine dependence, cigarettes, uncomplicated; I10 Essential (primary) hypertension; F41.8 Other specified anxiety disorders; K21.9 Gastro-esophageal reflux disease without esophagitis; Z79.899 Other long term (current) drug therapy; Z90.49 Acquired absence of other specified parts of digestive tract; Z90.710 Acquired absence of both cervix and uterus; R11.2 Nausea with vomiting, unspecified
CPT/HCPCS: 93005; 96361; 96374; 96375; 99284; A4216; J2405